=== PATIENT | male | born 1975 | race Caucasian/White ===

== ENCOUNTER 2017-11-27 10:11 | Emergency (ER) | payer MEDICAID, SELFPAY ==
[2017-11-27 10:12] VITALS: BP 146/96; PULSE 99; RESP 15; TEMP 36.8; O2SAT 99; BMI 22.2
--- NOTE | 2017-11-27 10:21 | RAD_ITS ---
STUDY: X-RAY CHEST REASON FOR EXAM: Male, 42 years old. One-week history of cough. TECHNIQUE: PA and lateral views of the chest. COMPARISON: Comparison is made with prior study dated September 24, 2016. FINDINGS: Hyperinflation. Once again, there is evidence of increased markings in the peripheral lateral aspect of the right lung apex. This most likely represents pleural-parenchymal changes. This is unchanged. No new abnormality is seen. There is no demonstrated pleural abnormality. Normal size heart. Normal mediastinum and tello. Normal visualized pulmonary arteries. Normal visualized aortic arch and descending thoracic aorta. Normal visualized thoracic spine. Normal visualized ribs, clavicles, and shoulders. There is no demonstrated abnormality of the visualized soft tissue structures of the upper abdomen. RAD/Chest PA and Lateral IMPRESSION: Hyperinflation. Stable pleural parenchymal changes in the lateral aspect of the right lung apex. Electronically Signed: Juan Daniel Alvarez MD at 10:48 EST Tel [phone], Service support ,
--- NOTE | 2017-11-27 10:23 | ED.DCSUM_ITS ---
- ER Visit Summary Date of Service: 11/27/17 Chief Complaint: Cough History of Present Illness: The patient is a 42 M with no primary care physician. He reports he is a cough began 2 weeks ago. Is productive of white sputum without blood. No fever or chills. Reports she is having mild trouble breathing and he lost his inhaler. He also complains of nausea without vomiting. He reports this is similar to when he has had pneumonia in the past. Physical Examination: Vitals: Stable. Afebrile. General: Well-nourished and well-developed. Head: Normocephalic atraumatic. Neck: Supple, no lymphadenopathy. No JVD. Nontender. Cardiovascular: Regular rate and rhythm. No murmurs. Respiratory: No respiratory distress. Clear to auscultation bilaterally. Abdominal: Soft, nontender, nondistended, normal bowel sounds. No guarding, rebound, or peritoneal signs. Back: Nontender. Extremities: Nontender, no edema. Skin: Normal color, no rash. Neurologic: Alert and oriented ?3. Cranial nerves II through XII are intact. Normal strength and sensation. Psych: Normal affect. Test Results: Chest x-ray shows chronic changes with no infiltrate. Emergency Department Course and Treatment: Patient is resting comfortably. Treatment Plan: He will be discharged with prescription for an albuterol MDI. Instructed to follow-up the [facility] in 1 week if not improving. Disposition: To home in improved and stable condition. Impression: 1. URI. This note was generated with [employer] dictation software. It may contain incorrect words, spelling, and punctuation that were not noted in review of the chart prior to signing ED Disposition - Plan for ED Patient: Chief Complaint: Cough Instructions: ED Upper Resp Infec No Abx Tx Prescriptions: Albuterol Inhaler [Ventolin Hfa] 1 - 2 puff INHALATION Q4H PRN PRN #1 inhaler PRN Reason: Wheezing Referrals: [facility] [NON-STAFF] - 1 Week if not improving
== END 2017-11-27 11:27 | disposition home or self-care (01) ==
PROVIDERS: Emergency Provider Emergency Medicine
DX: J06.9 Acute upper respiratory infection, unspecified (principal); R11.0 Nausea; J45.909 Unspecified asthma, uncomplicated
CPT/HCPCS: 71046; 99282

== ENCOUNTER 2018-04-29 08:14 | Emergency (ER) | payer MEDICAID, SELFPAY ==
[2018-04-29 08:15] VITALS: BP 122/87; PULSE 97; RESP 16; TEMP 36.1; O2SAT 100; BMI 21.9
--- NOTE | 2018-04-29 08:31 | RAD_ITS ---
STUDY: X-RAY CHEST REASON FOR EXAM: Male, 42 years old. Trauma. Chest pain. TECHNIQUE: PA and lateral views of the chest. Patient is mildly rotated. COMPARISON: 11/27/2017 FINDINGS: There is hyperinflation of the lungs consistent with chronic obstructive lung disease (COPD). Possible emphysematous bullous space with pleural thickening/scarring in the right lung apex. There is no demonstrated pleural abnormality. Normal size heart. Normal mediastinum and tello. Normal visualized pulmonary arteries. There is mild tortuosity of the aortic arch. Normal visualized thoracic spine. Normal visualized ribs, clavicles, and shoulders. There is no demonstrated abnormality of the visualized soft tissue structures of the upper abdomen. RAD/Chest PA and Lateral IMPRESSION: 1. COPD changes. 2. Stable pleural parenchymal changes in the right lung apex. 3. No acute abnormality noted. Electronically Signed: Jah Hodge MD at 9:18 EDT Tel , Service support ,
--- NOTE | 2018-04-29 08:31 | ED.VISSUMM ---
- ER Visit Summary Date of Service: 04/29/18 Chief Complaint: Chest pain History of Present Illness: The patient is a 42 M who fell off a little patio about 3 weeks ago he is continuing to have chest pain and back pain from this. No radiation to his pain. No fever or chills he has a chronic cough from smoking but no new symptoms. No sputum production. No difficulty breathing. He has no abdominal trauma, no bowel or bladder compromise. He did not sustain a head injury, no loss of consciousness. Physical Examination: Not appear in acute distress. Moist mucous membranes, no obvious facial deformity No C-spine tenderness supple neck. Regular rate and rhythm without any obvious murmurs. He does have chest wall tenderness to palpation diffusely over the chest but mostly right parasternal region. Clear lungs bilaterally speaking in full sentences without any obvious respiratory distress Abdomen soft and nontender no guarding or rebound Moves all extremities without any difficulty or pain. Neurovascularly intact. He does not have midline thoracic spine tenderness he does have tenderness over his ribs bilaterally in the back. Skin does not show any obvious rashes or lesions, no trauma. Alert oriented ?3 with no gross focal deficit Emergency Department Course and Treatment: Patient is found to have a normal chest x-ray, no rib fractures. He does have quite a bit of reproducible chest wall pain especially on the right. He will be discharged with Naprosyn. No further studies are needed. Impression: [Chest wall pain] This note was generated with [employer] dictation software. It may contain incorrect words, spelling, and punctuation that were not noted in review of the chart prior to signing ED Disposition - Plan for ED Patient: Chief Complaint: Chest Other Referrals: Care Physician,No Primary [Primary Care Provider] -
[2018-04-29] MEDS: HYDROcodone Bitartrate/Apap 5/325 Tablet PO (11:18)
[2018-04-29 11:21] VITALS: BP 126/83; PULSE 74; RESP 14; O2SAT 99
--- NOTE | 2018-04-29 11:28 | ED.DEP ---
ED Disposition - Plan for ED Patient: Disposition: Home or Assisted Living Chief Complaint: Chest Other Instructions: ED Strain Chest Wall Prescriptions: Naproxen [Naprosyn] 500 mg PO BID PRN #20 tab Referrals: Care Physician,No Primary [Primary Care Provider] - 3-5 Days
== END 2018-04-29 11:34 | disposition home or self-care (01) ==
PROVIDERS: Emergency Provider Emergency Medicine
DX: R07.89 Other chest pain (principal); M54.9 Dorsalgia, unspecified; R05 Cough; F17.200 Nicotine dependence, unspecified, uncomplicated
CPT/HCPCS: 71046; 99283

== ENCOUNTER 2019-08-16 21:03 | Emergency (ER) | payer MEDICAID, SELFPAY ==
[2019-08-16 21:03] VITALS: BP 139/75; PULSE 60; RESP 14; TEMP 35.8; O2SAT 97
[2019-08-16 21:04] VITALS: BP 139/75; PULSE 64; RESP 16; TEMP 35.8; O2SAT 95
--- NOTE | 2019-08-16 21:28 | ED.DCSUM_ITS ---
- ER Visit Summary Date of Service: 08/16/19 Chief Complaint: Overdose History of Present Illness: The patient is a 43 M who reportedly was found collapsed on the sidewalk. EMS arrived and they noted he was unresponsive and apneic. They administered 2 mg of Narcan IV the patient woke up feeling very poorly nausea vomiting headache generalized body aches. Told EMS that he snorted a line. Patient has a history of alcoholism and drug abuse. Physical Examination: Afebrile vital signs stable Gen: Well-nourished well-developed Head: Normocephalic atraumatic Eyes: Extraocular motions are intact. Pupils are 2 mm bilaterally ENT: TMs clear no rhinorrhea moist mucous membranes Neck: Supple no lymphadenopathy no JVD nontender CVS: Regular rate rhythm no murmurs normal S1-S2 Respiratory: No distress clear to auscultation bilaterally chest nontender Abdomen: Soft nontender nondistended normal bowel sounds no masses Back: Nontender Extremity: Nontender no edema Skin: Normal color no rash diaphoretic Neuro: Allergic but orientated ?3 CN II-XII intact normal strength sensation ref lexes gait cerebellar Psych: It is extremely irritable. Denies suicidal or homicidal ideation. Emergency Department Course and Treatment: Patient was observed in the department for approximately 1 and 1/2 hours. I go in and speak with the patient he looks at me pulls the covers over his head and rolls over. He states he does not wish to speak. Patient has a long history of continuous drug abuse. He is not suicidal homicidal. He does not wish to see him to rehab today. He will be given information on 180. Patient has an active warrant out for his arrest and is going to be transported from the hospital to the custodial. Impression: 1. Opiate overdose This note was generated with [employer] dictation software. It may contain incorrect words, spelling, and punctuation that were not noted in review of the chart prior to signing ED Disposition - Plan for ED Patient: Disposition: Home or Assisted Living Instructions: Opiate Abuse Prescriptions: Naloxone HCl [Narcan] 4 mg NS X1 PRN #1 spray PRN Reason: opiate overdose Prescription Printed Referrals: [facility] [STAFF PHYSICIAN] - As soon as possible
[2019-08-16 22:33] VITALS: BP 115/67; PULSE 78; RESP 16; O2SAT 96
== END 2019-08-16 22:40 ==
LOC: ED 21:38
PROVIDERS: Emergency Provider Emergency Medicine
DX: T40.0X1A Poisoning by opium, accidental (unintentional), initial encounter (principal); R06.81 Apnea, not elsewhere classified; R11.2 Nausea with vomiting, unspecified; Y92.480 Sidewalk as the place of occurrence of the external cause; F11.10 Opioid abuse, uncomplicated; F10.21 Alcohol dependence, in remission; K21.9 Gastro-esophageal reflux disease without esophagitis; Z72.0 Tobacco use
CPT/HCPCS: 99285; J7030; A4216

== ENCOUNTER 2020-09-20 11:20 | Emergency (ER) | payer MEDICAID, SELFPAY ==
[2020-09-20 11:20] VITALS: BP 155/114; PULSE 98; RESP 18; TEMP 35.8; O2SAT 98; BMI 21.2
--- NOTE | 2020-09-20 11:59 | RAD_ITS ---
STUDY: X-RAY CHEST REASON FOR EXAM: Male, 44 years old. WHEEZING AND SOB TECHNIQUE: AP upright portable view. COMPARISON: 04/29/2018. FINDINGS: Mild right apical pleural irregularity and thickening is unchanged. No suspicious pulmonary nodules or infiltrates. There is no demonstrated pleural abnormality. Normal size heart. Normal mediastinum and tello. Normal visualized pulmonary arteries. Normal visualized aortic arch and descending thoracic aorta. Normal visualized thoracic spine. Normal visualized ribs, clavicles, and shoulders. There is no demonstrated abnormality of the visualized soft tissue structures of the upper abdomen. RAD/Chest 1 View (Portable) IMPRESSION: 1. No acute cardiopulmonary pathology. 2. Right apical pleural irregularity and thickening. This is chronic and unchanged when compared to 04/29/2018. Electronically Signed: Homra Nolen MD at 14:10 EST , Service support ,
--- NOTE | 2020-09-20 11:59 | ED.VIS.GEN ---
History of Present Illness Chief Complaint: Shortness of Breath Informant: Patient Narrative: 44-year-old male states that he is homeless. He tells me that he has a history of asthma. He tells me for the past several nights he has been sleeping on the streets. He states that he feels short of breath. No significant cough. He denies any fevers. He states he has been using his blue inhaler because he is out of the red inhaler. He also tells me that now his hands and his feet are swollen. He states they have been getting very cold at night. - Past Medical History (1) Bulla of lung Status: Chronic (2) GERD (gastroesophageal reflux disease) Status: Chronic (3) Alcoholism Status: Chronic Past Medical History - Allergies and Home Meds Allergies/Adverse Reactions: Allergies No Known Allergies Allergy (Verified 09/20/20 11:21) Primary Care Physician: Care Physician,No Primary [Primary Care Provider] - Past Medical History: - - Asthma Surgical History: noncontributory Lives: Homeless Smoking Status: Never smoker Alcohol: Sober Drugs: None Review of Systems General: Denies: Chills, Fever, Sweats Eyes: Denies: Visual changes - bilaterally, Diplopia ENT: Denies: Rhinorrhea, Sore throat Cardiovascular: Denies: Chest pain, Palpitations Respiratory: Reports: Dyspnea. Denies: Cough, Dyspnea on exertion Gastrointestinal: Denies: Abdominal pain, Nausea, Vomiting, Diarrhea, Melena, Hematochezia Genitourinary: Denies: Dysuria, Hematuria, Frequency Musculoskeletal: Reports: Swelling. Denies: Back pain, Extremity Pain Skin: Denies: Rash, Wounds Neurological: Reports: Parasthesia. Denies: Headache, Weakness, Numbness Physical Exam Vital Signs/Narrative: Vital Signs Temp Pulse Resp BP Pulse Ox 09/20/20 11:20 96.4 F L 98 18 155/114 H 98 Inital Vital Signs reviewed: Yes General: Well nourished, Well developed, No Acute Distress Head: Normocephalic, Atraumatic Eyes: Perrl, EOMI ENT: Moist mucous membranes, No rhinorrhea Neck: Supple, Nontender Cardiovascular: Regular rate, Regular rhythm, No murmurs Respiratory: No distress, Chest nontender, Wheezing - Expiratory, Decreased Air Movement Abdomen: Soft, Nontender, Nondistended, Normal bowel sounds Back: Nontender, Normal Inspection Extremities: Nontender, Edema - Mild swelling of the hands and the feet. No obvious frostbite lesions noted. Skin: Normal color, No rash Neurological: Alert, Oriented x3, Cranial nerves II-XII grossly intact, Normal Strength, Normal Sensation Psychological: Normal affect, Normal Mood Diagnostic/Tx/Re-eval - Medical Decision Making My interpretation of the single view portable chest x-ray is no acute process. Covid antigen test negative. Patient received prednisone and a DuoNeb. I will write for albuterol MDI and 4 more days of prednisone. As far as the hand and foot swelling I think is most likely due to the frostnip he has been receiving while sleeping on the streets. He does know where the [facility] is in town. ED Disposition - Plan for ED Patient: Disposition: Home or Assisted Living Diagnosis: Asthma exacerbation Instructions: ED Asthma, Acute (Adult) Prescriptions: Prednisone [Deltasone] 60 mg PO DAILY #12 tab Prescription Printed Albuterol Inhaler [Ventolin Hfa] 2 puff INHALATION Q4H PRN PRN #1 inhaler PRN Reason: Wheezing Prescription Printed Referrals: [facility] [NON-STAFF] -
[2020-09-20] MEDS: predniSONE 20 MG Tablet 60 MG PO (12:11)
[2020-09-20] MEDS: Ipratropium/Albuterol Sulfate 3 ML AMPUL.NEB INHALATION (13:05)
[2020-09-20 13:06] VITALS: PULSE 84; RESP 20
[2020-09-20 13:15] VITALS: BP 124/71; PULSE 83; RESP 15
== END 2020-09-20 13:16 | disposition home or self-care (01) ==
PROVIDERS: Emergency Provider Emergency Medicine
DX: J45.901 Unspecified asthma with (acute) exacerbation (principal); J43.9 Emphysema, unspecified; M79.89 Other specified soft tissue disorders; K21.9 Gastro-esophageal reflux disease without esophagitis; F10.20 Alcohol dependence, uncomplicated; Z59.0 Homelessness
CPT/HCPCS: 71045; 87426; 94640; 99283

== ENCOUNTER 2020-09-22 20:30 | Inpatient (IN) | payer MEDICAID, SELFPAY ==
[2020-09-22 20:31] VITALS: BP 155/77; PULSE 99; RESP 16; TEMP 36.4; O2SAT 98; BMI 21.9
--- NOTE | 2020-09-22 20:55 | ED.DCSUM_ITS ---
History of Present Illness Chief Complaint: Substance Abuse Narrative: This patient is a 44-year-old male who presents seeking alcohol detox. He is a daily drinker. He drinks 4-5 tall boys daily. He reports prior history of alcohol withdrawal. He has never been through a formal detox program. No history of alcohol withdrawal seizures. Last drink was about 1 hour before presentation. He also reports methamphetamine and marijuana use. He denies opioid abuse. Review of systems he does report some rhinorrhea, cough, mild shortness of breath. He attributes this to letting outside in the cold weather, he is homeless. He also reports nausea and vomiting since yesterday mild diarrhea. He denies any pain at this time. Past Medical History - Allergies and Home Meds Allergies/Adverse Reactions: Allergies No Known Allergies Allergy (Verified 09/22/20 20:33) Primary Care Physician: Care Physician,No Primary [Primary Care Provider] - Past Medical History: - - Alcohol abuse, substance abuse Surgical History: noncontributory Smoking Status: Never smoker Review of Systems All systems negative except as indicated General: Denies: Fever Eyes: Denies: Visual changes - bilaterally ENT: Reports: Rhinorrhea Cardiovascular: Denies: Chest pain Respiratory: Reports: Dyspnea, Cough. Denies: Sputum Gastrointestinal: Reports: Nausea, Vomiting, Diarrhea. Denies: Abdominal pain Musculoskeletal: Denies: Myalgias, Arthralgias Skin: Denies: Rash Neurological: Denies: Headache Hematologic: Denies: Easy bruising Allergy: Denies: Uticaria Physical Exam Vital Signs/Narrative: Vital Signs Temp Pulse Resp BP Pulse Ox 09/22/20 20:31 97.5 F L 99 16 155/77 H 98 Inital Vital Signs reviewed: Yes General: Well nourished Head: Normocephalic Eyes: EOMI ENT: Moist mucous membranes Neck: Supple Cardiovascular: Regular rate, Regular rhythm Respiratory: No distress, CTA bilaterally Abdomen: Soft, Nontender Extremities: Nontender Skin: Normal color Neurological: Alert Psychological: Normal affect Diagnostic/Tx/Re-eval 09/22/20 21:25 Mucosa - Nose SARS-CoV-2 Antigen (Rapid) - Final Laboratory Results 09/22/20 09/22/20 09/22/20 21:07 21:07 21:07 WBC 12.0 H RBC 4.20 L Hgb 13.7 Hct 39.8 L MCV 94.8 H MCH 32.6 H MCHC 34.4 RDW Std Deviation 43.6 RDW Coeff of Bridger 12.6 Plt Count 341 MPV 8.8 Immature Gran % (Auto) 0.300 Neut % (Auto) 91.3 H Lymph % (Auto) 6.4 L [place] % (Auto) 1.8 Eos % (Auto) 0.0 Baso % (Auto) 0.2 Absolute Neuts (auto) 11.0 H Absolute Lymphs (auto) 0.77 L Nucleated RBC % 0 Sodium 138 Potassium 4.1 Chloride 106 Carbon Dioxide 27.0 Anion Gap 5 BUN 22 H Creatinine 0.78 Estim Creat Clear Calc 108.55 Est GFR (MDRD) Af Amer 139 Est GFR (MDRD) Non-Af 115 BUN/Creatinine Ratio 28.2 H Glucose 130 H Calcium 9.1 Total Bilirubin 0.70 AST 33 ALT 89 H Alkaline Phosphatase 59 Total Protein 7.5 Albumin 3.6 Globulin 3.9 Albumin/Globulin Ratio 0.9 Urine Opiates Screen Urine Methadone Screen Ur Barbiturates Screen Ur Phencyclidine Scrn Ur Amphetamines Screen U Methamphetamin-MDMA U Benzodiazepines Scrn Urine Cocaine Screen U Cannabinoids Screen Ur Drug Screen Comment Ethyl Alcohol < 3.0 09/22/20 22:10 WBC RBC Hgb Hct MCV MCH MCHC RDW Std Deviation RDW Coeff of Bridger Plt Count MPV Immature Gran % (Auto) Neut % (Auto) Lymph % (Auto) [place] % (Auto) Eos % (Auto) Baso % (Auto) Absolute Neuts (auto) Absolute Lymphs (auto) Nucleated RBC % Sodium Potassium Chloride Carbon Dioxide Anion Gap BUN Creatinine Estim Creat Clear Calc Est GFR (MDRD) Af Amer Est GFR (MDRD) Non-Af BUN/Creatinine Ratio Glucose Calcium Total Bilirubin AST ALT Alkaline Phosphatase Total Protein Albumin Globulin Albumin/Globulin Ratio Urine Opiates Screen NEGATIVE Urine Methadone Screen NEGATIVE Ur Barbiturates Screen NEGATIVE Ur Phencyclidine Scrn NEGATIVE Ur Amphetamines Screen POSITIVE H U Methamphetamin-MDMA NEGATIVE U Benzodiazepines Scrn NEGATIVE Urine Cocaine Screen NEGATIVE U Cannabinoids Screen NEGATIVE Ur Drug Screen Comment Ethyl Alcohol - Medical Decision Making EKG shows normal sinus rhythm at a rate of 76. Labs notable for white blood cell count of 12. Serum alcohol undetectable. Drug screen positive for amphetamines. ALT 89. I asked the patient about his last drink and explained that there is no detectable serum alcohol. He states he only had one beer today and it may have been longer than he thought. Given that he does report daily alcohol use and is requesting alcohol detox he will be discussed with hospitalist for admission. ED Disposition - Plan for ED Patient: Disposition: Acute Care Hospital [facility] Diagnosis: Alcohol abuse, Methamphetamine abuse Referrals: Care Physician,No Primary [Primary Care Provider] -
[2020-09-22 21:17] LABS: Absolute Lymphocyte Count 0.77 X10^3/uL (0.83-4.51); Basophil# 0.02 X10^3/uL; Basophil% 0.2 % (0-1); Hematocrit 39.8 % (40-54); Hemoglobin 13.7 g/dL (13.0-16.5); Lymphocyte # 0.77 X10^3/ul (4.0); Lymphocyte % 6.4 % (19-41); Mean Corp Hgb Conc 34.4 g/dL (32-36); Mean Corpuscular Hgb 32.6 pg (27.0-32.0); Mean Corpuscular Volume 94.8 fL (80-94); Mean Platelet Vol. 8.8 fl (6.2-12.0); Monocyte# 0.22 X10^3/uL; Monocyte% 1.8 % (0-10); NRBC Flagged by Analyzer 0 % (0-5); Neutrophil # 10.95 X10^3/uL (2.7-7.7); Neutrophil % 91.3 % (47-70); Platelet Count 341 K/mm3 (150-450); RBC Distribution Width CV 12.6 % (11.6-14.6); RBC Distribution Width SD 43.6 fl (35.1-43.9)
[2020-09-22 21:21] VITALS: BP 151/69; PULSE 89; RESP 14; TEMP 36.6; O2SAT 99
[2020-09-22 21:32] LABS: ALB/GLOB Ratio 0.9 RATIO (0.9-2.4); AST(SGOT) 33 U/L (15-37); Alanine Aminotransfer ALT/SGPT 89 U/L (16-61); Albumin, Serum 3.6 g/dL (3.2-5.0); Alkaline Phosphatase 59 U/L (45-117); Anion Gap 5 (5-15); BUN 22 mg/dL (7-18); BUN/Creat Ratio 28.2 RATIO (10-20); Calcium,Total 9.1 mg/dL (8.5-10.1); Chloride 106 mmol/L (98-107); Creatinine, Serum 0.78 mg/dL (0.70-1.30); EST Glomerular Filtration Rate 115 mL/min (>60); Est Glom Filt Rate - Afr Amer 139 mL/min (>60); Estimated Creatinine Clearance 108.55 ml/min; Globulin 3.9 g/dL (2.2-4.2); Glucose 130 mg/dL (74-106); Potassium 4.1 mmol/L (3.5-5.1); Protein, Total 7.5 g/dL (6.4-8.2); Sodium Level 138 mmol/L (136-145)
[2020-09-22 22:26] LABS: Alcohol, Blood (Medical)-Serum < 3.0 mg/dL
[2020-09-22 22:59] VITALS: BP 109/54; PULSE 89; RESP 14; O2SAT 99
[2020-09-22 22:59] LABS: Amphetamine Urine VISTA POSITIVE (<1000 ng/mL); Barbiturate Urine VISTA NEGATIVE (< 200 ng/mL); Benzodiazepine Urine VISTA NEGATIVE (< 200 ng/mL); Cocaine Urine VISTA NEGATIVE (< 300 ng/mL); Ecstacy Urine VISTA NEGATIVE (< 500 ng/mL); Methadone Urine VISTA NEGATIVE (< 300 ng/mL); PCP Urine VISTA NEGATIVE (< 25 ng/mL); THC Urine VISTA NEGATIVE (< 50 ng/mL); Vista UDS pH Range 7
[2020-09-22 23:24] VITALS: BP 118/63; PULSE 89; RESP 16; TEMP 36.6; O2SAT 97
--- NOTE | 2020-09-22 23:48 | HP.PCM_ITS ---
Problem List (1) Acute alcohol withdrawal Status: Acute (2) Methamphetamine abuse Status: Acute (3) GERD (gastroesophageal reflux disease) Status: Chronic (4) Alcoholism Status: Chronic History of Present Illness Date of Admission: 09/22/20 Chief Complaint: Acute alcohol withdrawal requesting admission for medical stabilization. The patient is a 44 year old M with past medical history as mentioned above presented to the emergency room requesting admission for acute alcohol withdrawal. Patient states that he has been drinking alcohol every day for the last 25 years, he drinks 4-5 tall boys every day and his last drink was this evening. Also, he reported he use of amphetamines and smoking marijuana. His main complaint today was shakiness and mild hand tremors as well as rhinorrhea. He reported mild nausea and vomiting since yesterday. He denied fever or chills. He denied cough or sputum production. 2 days ago, he came to the emergency department for acute asthma exacerbation and he was discharged on prednisone and albuterol inhaler. In the emergency department, his vital signs were stable. His routine blood work was remarkable for mild leukocytosis because he was on steroids, otherwise unremarkable. LFT was normal. Urine drug screen was positive for amphetamines. Blood alcohol level was less than 3. EKG revealed normal sinus rhythm and no acute ischemic changes. He is being admitted for acute alcohol withdrawal for medical stabilization. Past Medical History Past Medical History (Chronic Problems): Chronic Problems [place] of lung (Chronic) GERD (gastroesophageal reflux disease) (Chronic) Alcoholism (Chronic) Allergies No Known Allergies Allergy (Verified 09/22/20 20:33) Home Medications: Ambulatory Orders Medication Instructions Recorded Albuterol Inhaler [Ventolin Hfa] 2 puff INHALATION Q4H PRN PRN #1 09/20/20 inhaler Prednisone [Deltasone] 60 mg PO DAILY #12 tab 09/20/20 Surgical History: - - Open reduction and internal fixation of left ankle fracture. Psychiatric History: No pertinent psych hx Lives: Homeless Smoking Status: Never smoker Alcohol: Heavy Drugs: Marijuana - *Family History Maternal History Items: No pertinent history Paternal History Items: No pertinent history Review of Systems Constitutional: Denies: Anorexia, Chills, Fever, Weakness Eyes: Denies: Blurred vision, Double vision, Drainage, Redness HEENT: Denies: Difficulty Hearing, Dysphasia, Ear Pain, Eye Pain, Nasal Congestion, Sore Throat Cardiovascular: Denies: Chest Pain, Chest Pressure, Edema, Heaviness, Orthopnea, Palpitations, Syncope Respiratory: Denies: Cough, Pleuritic Pain, Shortness of Breath, Sputum production, Wheezing Gastrointestinal: Denies: Abdominal Pain, Constipation, Diarrhea, Nausea, Vomiting Genitourinary: Denies: Dysuria, Frequency, Hematuria Musculoskeletal: Denies: Arm Pain, Back Pain, Foot Pain Skin: Denies: Dryness, Rash Neurological: Reports: Tremor. Denies: Balance problems, Double vision, Change in Speech, Confusion, Headaches, Incoordination Psychiatric: Denies: Anxiety, Depression Endocrine: Denies: Change in Body Habitus, Polydipsia, Polyuria VTE Information - Inpt Only VTE Present on Admission: No VTE Mechan Device Prophylaxis: None VTE Pharm Prophylaxis ordered?: No Patient Problems: Active and Suspected Problems Methamphetamine abuse (Acute) - Physical Exam Vitals/I&O's: Vital Signs Temp Pulse Resp BP Pulse Ox 98 F 89 16 118/63 97 09/22/20 23:24 09/22/20 23:24 09/22/20 23:24 09/22/20 23:24 09/22/20 23:24 Oxygen Delivery Method Room Air Weight: 140 lb Body Mass Index (BMI) 21.9 General: Alert, Oriented x3, Cooperative, No apparent distress HEENT: Atraumatic, PERRLA, EOMI, Normocephalic Oral: Moist Mucosa, No Gingival or Mucosal Lesions/ Ulcerations Neck: Supple, No JVD, Negative Carotid Bruits, Trachea Midline, Thyroid Normal Size and Texture Lungs: Clear to auscultation, Normal air movement, No rhonchi, No wheeze, No rales Cardiovascular: Regular rate, Regular Rhythm, Normal S1, Normal S2, PMI Normal Abdomen: Bowel Sounds Present, Soft, Non Tender, Non-Distended, No Hepato- splenomegaly Extremities: No clubbing, No cyanosis, No edema Skin: No rashes, No breakdown Lymphatic: No Cervical, Supraclavicular, or Inguinal Adenopathy Neurological: Cranial nerves II-XII grossly intact, Motor Exam 5/5 strength throughout Psych/Mental Status: Normal Affect, Appropriate, Alert and oriented to time, place, person, mood and affect Microbiology Past 72 Hours 09/22/20 21:25 Mucosa - Nose SARS-CoV-2 Antigen (Rapid) - Final Laboratory Results 09/22/20 21:07: WBC 12.0 H, RBC 4.20 L, Hgb 13.7, Hct 39.8 L, MCV 94.8 H, MCH 32.6 H, MCHC 34.4, RDW Std Deviation 43.6, RDW Coeff of Bridger 12.6, Plt Count 341, MPV 8.8, Immature Gran % (Auto) 0.300, Neut % (Auto) 91.3 H, Lymph % (Auto) 6.4 L, [place] % (Auto) 1.8, Eos % (Auto) 0.0, Baso % (Auto) 0.2, Absolute Neuts (auto) 11.0 H, Absolute Lymphs (auto) 0.77 L, Nucleated RBC % 0 09/22/20 21:07: Sodium 138, Potassium 4.1, Chloride 106, Carbon Dioxide 27.0, Anion Gap 5, BUN 22 H, Creatinine 0.78, Estim Creat Clear Calc 108.55, Est GFR (MDRD) Af Amer 139, Est GFR (MDRD) Non-Af 115, BUN/Creatinine Ratio 28.2 H, Glucose 130 H, Calcium 9.1, Total Bilirubin 0.70, AST 33, ALT 89 H, Alkaline Phosphatase 59, Total Protein 7.5, Albumin 3.6, Globulin 3.9, Albumin/Globulin Ratio 0.9 09/22/20 21:07: Ethyl Alcohol < 3.0 09/22/20 22:10: Urine Opiates Screen NEGATIVE, Urine Methadone Screen NEGATIVE, Ur Barbiturates Screen NEGATIVE, Ur Phencyclidine Scrn NEGATIVE, Ur Amphetamines Screen POSITIVE H, U Methamphetamin-MDMA NEGATIVE, U Benzodiazepines Scrn NEGATIVE, Urine Cocaine Screen NEGATIVE, U Cannabinoids Screen NEGATIVE, Ur Drug Screen Comment Assessment/Plan All Active Problems Acute alcohol withdrawal (Acute) Methamphetamine abuse (Acute) This is a 44 years old male patient presented to the emergency room requesting admission for acute alcohol withdrawal for medical stabilization. #1 acute alcohol withdrawal: Patient has been drinking alcohol daily over the last 25 years. He mentioned that his last drink was this evening but his blood alcohol level was less than 3. He is homeless. Routine blood work was remarkable for mild leukocytosis, otherwise unremarkable. LFT was unremarkable. Urine drug screen was positive for amphetamines, blood alcohol level was less than 3. Plan: Admit to MedSurg floor, initiate alcohol withdrawal protocol with tapering phenobarbital, thiamine, folic acid, as needed Tylenol, Bentyl, gabapentin, Vistaril, Imodium, Zofran and trazodone, consult [facility] program. #2 amphetamine use: Urine drug screen was positive for amphetamines. Patient also mentioned that he smokes marijuana. #3 asthma: Stable, on room air. Plan for albuterol as needed. #4 GERD: Not on PPI at home, will start Pepcid. #5 DVT prophylaxis: Low risk patient, no prophylaxis indicated. This note was generated with [employer] dictation software. It may contain incorrect words, spelling, and punctuation that were not noted in checking the note before signing. Inpatient E&M: 38893 Init Hosp L2
[2020-09-23] VITALS (7 sets, daily range): BP systolic 112–124; BP diastolic 66–84; PULSE 71–90; RESP 14–24; TEMP 36.6–36.9; O2SAT 94–98; BMI 20.5
--- NOTE | 2020-09-23 00:10 | PCS.PANDOC ---
PANDEMIC DOCUMENTATION INITIATED: Date: Time:
[2020-09-23] MEDS: Phenobarbital 32.4 MG Tablet PO ×6 (01:17→22:22)
[2020-09-23] MEDS: Gabapentin 300 MG Capsule PO (01:17)
--- NOTE | 2020-09-23 07:49 | PCS.PANDOC ---
PANDEMIC DOCUMENTATION INITIATED: Date: 09/23/2020 Time: 0021
[2020-09-23] MEDS: Albuterol 2.5 MG/3 ML VIAL.NEB. INHALATION (08:16)
--- NOTE | 2020-09-23 08:52 | CASEMGMT ---
Addendum entered by Galina Hinds 09/23/20 11:14: SW reviewed chart. Pt is homeless. SW in to speak with pt. SW introduced self and role at [facility]. Pt is alert and orientated x3. Pt confirms that he is homeless. SW asked pt about address listed on demographics sheet. Pt states it was his mother's address. Pt states he was living with his mother up until about a year ago when she . Pt states since then he has had no stable housing. Pt states he has tried to stay with family or friends and it hasn't worked out. Pt states he was at [facility] for about a week and is trying to get back into there. SW educated pt on [facility] that will be opened the next few days. Pt states he is aware of the group home at [facility]. SW asked pt if he has been in contact with [email or web address]. Pt states he has been and he is expecting his housing voucher to arrive in the mail so he is able to get his own place. Pt states he has been using [facility] address and has been checking the mail for his housing voucher. SW asked pt if he would be agreeable to residential treatment at discharge. Pt states he may be interested in residential but doesn't know how that will work with him checking his mail for his voucher. Pt states he really doesn't want to miss getting his voucher. SW informed pt that [facility] will be in to speak with pt today and encouraged pt to speak with [facility] about treatment options and informed pt that [facility] does have housing resources as well. Pt states understanding, states he will speak with [facility]. Pt denied additional needs or concerns at this time. Galina MOE, RETAIL CONSULTANT Original Note: Social Work Note Pt is RAMP pt. ROMELIA placed a call to treatment navigator and spoke with Patricia. Galina MOE, RETAIL CONSULTANT
[2020-09-23] MEDS: Folic Acid 1 MG Tablet PO (09:41)
[2020-09-23] MEDS: Famotidine 20 MG Tablet PO ×2 (09:41→22:22)
[2020-09-23] MEDS: Thiamine Hydrochloride 100 MG Tablet PO (09:41)
--- NOTE | 2020-09-23 17:38 | CHAPLAIN ---
Type of Pastoral Visit _x__ Initial Visit ___ Follow-up Visit ___ On-call Visit ___ General Patient Visit ___ Spiritual Assessment ___ Family Conference ___ Bereavement ___ Rapid Response ___ Code Blue ___ Other (describe below) Pastoral Care Referral From _x__ Patient ___ Family ___ Nurse ___ Physician ___ Rehabilitation Inspector ___ Volleyball Coach ___ Other (describe below) Sacrament/Intervention _x__ Active listening ___ Anointing ___ Hindu ___ Bereavement ___ Communion _x__ Isamar exploration ___ _x__ Life review _x__ Prayer ___ Reconciliation ___ Sacrament of Sick _x__ Supportive presence ___ Wedding ___ Other (describe below) Pastoral Comments patient very open about his situation, fears, and impact of life on the streets; pt admits he needs help and needs housing; pt says his last hope is in asking God to help him; pt is talkative and at times rambling; pt has concerns about where he can go from here and how that will happen; gave pt phone numbers for sober living houses in [facility]; pt has no phone; affirmed pt desire to get life in better situation and find help that he needs; pt has no real support at this time and is vulnerable to repeat his addictions; pt welcoming of prayer and presence
--- NOTE | 2020-09-23 20:54 | PCM.PROGNOTE ---
Patient Problems: Active and Suspected Problems Alcohol abuse (Acute) Acute alcohol withdrawal (Acute) Methamphetamine abuse (Acute) Subjective: Patient was seen and examined today, he does not complain of any tremors or anxiety. - Physical Exam Vitals/I&O's: Vital Signs Temp Pulse Resp BP Pulse Ox 98.4 F 71 16 112/69 96 09/23/20 17:20 09/23/20 17:20 09/23/20 17:20 09/23/20 17:20 09/23/20 17:20 Oxygen Delivery Method Room Air Weight: 59.5 kg Body Mass Index (BMI) 20.5 Intake and Output for Last 24 Hours 09/21/20 09/22/20 09/23/20 23:59 23:59 23:59 Intake Total 1194 / 1194 Balance 1194 / 1194 General: Alert, Oriented x3, Cooperative, No apparent distress, Well developed HEENT: Atraumatic, PERRLA, EOMI, Normocephalic Oral: Moist Mucosa Neck: Supple, No JVD, Trachea Midline, Thyroid Normal Size and Texture Lungs: Clear to auscultation, Normal air movement, No rhonchi, No wheeze, No rales Cardiovascular: Regular rate, Regular Rhythm, Normal S1, Normal S2, No murmurs, PMI Normal, No rub noted, No Gallop Abdomen: Bowel Sounds Present, Soft, Non Tender, Non-Distended Extremities: No clubbing, No cyanosis, No edema, Capillary Refill Less than 3 Seconds Skin: No rashes, No breakdown Musculoskeletal: No Tenderness to Palpation of Joints or Extremities Neurological: Cranial nerves II-XII grossly intact, Neuro grossly intact, Sensory exam intact to light touch and pain, Coordination normal Psych/Mental Status: Normal Affect, Appropriate, Alert and oriented to time, place, person, mood and affect Microbiology Past 72 Hours 09/22/20 21:25 Mucosa - Nose SARS-CoV-2 Antigen (Rapid) - Final Laboratory Results 09/22/20 21:07: WBC 12.0 H, RBC 4.20 L, Hgb 13.7, Hct 39.8 L, MCV 94.8 H, MCH 32.6 H, MCHC 34.4, RDW Std Deviation 43.6, RDW Coeff of Bridger 12.6, Plt Count 341, MPV 8.8, Immature Gran % (Auto) 0.300, Neut % (Auto) 91.3 H, Lymph % (Auto) 6.4 L, [place] % (Auto) 1.8, Eos % (Auto) 0.0, Baso % (Auto) 0.2, Absolute Neuts (auto) 11.0 H, Absolute Lymphs (auto) 0.77 L, Nucleated RBC % 0 09/22/20 21:07: Sodium 138, Potassium 4.1, Chloride 106, Carbon Dioxide 27.0, Anion Gap 5, BUN 22 H, Creatinine 0.78, Estim Creat Clear Calc 108.55, Est GFR (MDRD) Af Amer 139, Est GFR (MDRD) Non-Af 115, BUN/Creatinine Ratio 28.2 H, Glucose 130 H, Calcium 9.1, Total Bilirubin 0.70, AST 33, ALT 89 H, Alkaline Phosphatase 59, Total Protein 7.5, Albumin 3.6, Globulin 3.9, Albumin/Globulin Ratio 0.9 09/22/20 21:07: Ethyl Alcohol < 3.0 09/22/20 22:10: Urine Opiates Screen NEGATIVE, Urine Methadone Screen NEGATIVE, Ur Barbiturates Screen NEGATIVE, Ur Phencyclidine Scrn NEGATIVE, Ur Amphetamines Screen POSITIVE H, U Methamphetamin-MDMA NEGATIVE, U Benzodiazepines Scrn NEGATIVE, Urine Cocaine Screen NEGATIVE, U Cannabinoids Screen NEGATIVE, Ur Drug Screen Comment Current Medications Acetaminophen (Acetaminophen 500 Mg Tablet) 500 mg PO Q4H PRN PRN PRN Reason: Temp > 100.4 F Albuterol Sulfate (Albuterol 2.5 Mg/3 Ml Vial.Neb.) 2.5 mg INHALATION Q4H PRN PRN PRN Reason: Shortness of breath, wheezing Last Admin: 09/23/20 08:16 Dose: 2.5 mg Documented by: Dicyclomine HCl (Dicyclomine 10 Mg Capsule) 20 mg PO Q6H PRN PRN PRN Reason: abdominal discomfort Famotidine (Famotidine 20 Mg Tablet) 20 mg PO BID [facility] Last Admin: 09/23/20 09:41 Dose: 20 mg Documented by: Folic Acid (Folic Acid 1 Mg Tablet) 1 mg PO DAILY@0800 [facility] Last Admin: 09/23/20 09:41 Dose: 1 mg Documented by: Loperamide HCl (Loperamide 2 Mg Capsule) 2 mg PO Q4H PRN PRN PRN Reason: LOOSE STOOLS Ondansetron HCl (Ondansetron 8 Mg Tablet) 8 mg PO Q8H PRN PRN PRN Reason: NAUSEA Phenobarbital (Phenobarbital 32.4 Mg Tablet) 97.2 mg PO Q4H [facility]; Taper Stop: 09/27/20 09:29 Last Admin: 09/23/20 17:22 Dose: 97.2 mg Documented by: Thiamine HCl (Thiamine Hydrochloride 100 Mg Tablet) 100 mg PO DAILYCM [facility] Last Admin: 09/23/20 09:41 Dose: 100 mg Documented by: Trazodone HCl (Trazodone 100 Mg Tablet) 100 mg PO QHS PRN PRN Reason: INSOMNIA Medical Necessity - Tobacco Use Smoking Status: Never smoker Assessment/Plan All Active Problems Alcohol abuse (Acute) Acute alcohol withdrawal (Acute) Methamphetamine abuse (Acute) #1 acute alcohol withdrawal-patient's medications remain unchanged, patient states that he has plans to go to an inpatient alcohol detox center-[facility] will need to talk with the patient. #2 chronic alcoholism #3 GERD #4 methamphetamine abuse Inpatient E&M: [id number] Subs Hosp L2
[2020-09-24] MEDS: Phenobarbital 32.4 MG Tablet PO ×6 (01:39→21:12)
[2020-09-24 02:04] VITALS: BP 116/76; PULSE 88; RESP 18; TEMP 36.8; O2SAT 97
[2020-09-24] MEDS: Albuterol 2.5 MG/3 ML VIAL.NEB. INHALATION (05:49)
[2020-09-24 05:50] VITALS: PULSE 93; RESP 18
[2020-09-24 09:35] VITALS: BP 128/67; PULSE 102; RESP 16; TEMP 36.7; O2SAT 95
[2020-09-24] MEDS: Famotidine 20 MG Tablet PO ×2 (09:51→21:13)
[2020-09-24] MEDS: Folic Acid 1 MG Tablet PO (09:51)
[2020-09-24] MEDS: Thiamine Hydrochloride 100 MG Tablet PO (09:51)
[2020-09-24 13:30] VITALS: BP 110/69; PULSE 89; RESP 16; TEMP 37; O2SAT 97
--- NOTE | 2020-09-24 16:20 | PN_ITS ---
Patient Problems: Active and Suspected Problems Alcohol abuse (Acute) Acute alcohol withdrawal (Acute) Methamphetamine abuse (Acute) Subjective: Patient was seen and examined today, he does not complain of any anxiety or tremor at this time, he had talked to [facility] and arrangements are being carried out for inpatient detox services but it is unknown where the patient will go. If patient ends up going to [facility] for inpatient detox services, he will have to remain here until this coming Monday, patient's phenobarb taper will be finished on Monday but I will extend his phenobarb usage while he is in the hospital. Objective: General: Alert, Oriented x3, Cooperative, No apparent distress, Well developed HEENT: Atraumatic, PERRLA, EOMI, Normocephalic Oral: Moist Mucosa Neck: Supple, No JVD, Trachea Midline, Thyroid Normal Size and Texture Lungs: Clear to auscultation, Normal air movement, No rhonchi, No wheeze, No rales Cardiovascular: Regular rate, Regular Rhythm, Normal S1, Normal S2, No murmurs, PMI Normal, No rub noted, No Gallop Abdomen: Bowel Sounds Present, Soft, Non Tender, Non-Distended Extremities: No clubbing, No cyanosis, No edema, Capillary Refill Less than 3 Seconds Skin: No rashes, No breakdown Musculoskeletal: No Tenderness to Palpation of Joints or Extremities Neurological: Cranial nerves II-XII grossly intact, Neuro grossly intact, Sensory exam intact to light touch and pain, Coordination normal Psych/Mental Status: Normal Affect, Appropriate, Alert and oriented to time, place, person, mood and affect - Physical Exam Vitals/I&O's: Vital Signs Temp Pulse Resp BP Pulse Ox 98.6 F 89 16 110/69 97 09/24/20 13:30 09/24/20 13:30 09/24/20 13:30 09/24/20 13:30 09/24/20 13:30 Oxygen Delivery Method Room Air Weight: 59.5 kg Body Mass Index (BMI) 20.5 Intake and Output for Last 24 Hours 09/22/20 09/23/20 09/24/20 23:59 23:59 23:59 Intake Total 1194 / 1594 1200 / 1200 Balance 1194 / 1594 1200 / 1200 Microbiology Past 72 Hours 09/22/20 21:25 Mucosa - Nose SARS-CoV-2 Antigen (Rapid) - Final Current Medications Acetaminophen (Acetaminophen 500 Mg Tablet) 500 mg PO Q4H PRN PRN PRN Reason: Temp > 100.4 F Albuterol Sulfate (Albuterol 2.5 Mg/3 Ml Vial.Neb.) 2.5 mg INHALATION Q4H PRN PRN PRN Reason: Shortness of breath, wheezing Last Admin: 09/24/20 05:49 Dose: 2.5 mg Documented by: Dicyclomine HCl (Dicyclomine 10 Mg Capsule) 20 mg PO Q6H PRN PRN PRN Reason: abdominal discomfort Famotidine (Famotidine 20 Mg Tablet) 20 mg PO BID [facility] Last Admin: 09/24/20 09:51 Dose: 20 mg Documented by: Folic Acid (Folic Acid 1 Mg Tablet) 1 mg PO DAILY@0800 [facility] Last Admin: 09/24/20 09:51 Dose: 1 mg Documented by: Loperamide HCl (Loperamide 2 Mg Capsule) 2 mg PO Q4H PRN PRN PRN Reason: LOOSE STOOLS Ondansetron HCl (Ondansetron 8 Mg Tablet) 8 mg PO Q8H PRN PRN PRN Reason: NAUSEA Phenobarbital (Phenobarbital 32.4 Mg Tablet) 64.8 mg PO Q4H [facility]; Taper Stop: 09/27/20 09:29 Last Admin: 09/24/20 13:29 Dose: 64.8 mg Documented by: Thiamine HCl (Thiamine Hydrochloride 100 Mg Tablet) 100 mg PO DAILYCM [facility] Last Admin: 09/24/20 09:51 Dose: 100 mg Documented by: Trazodone HCl (Trazodone 100 Mg Tablet) 100 mg PO QHS PRN PRN Reason: INSOMNIA Medical Necessity - Tobacco Use Smoking Status: Never smoker Assessment/Plan All Active Problems Alcohol abuse (Acute) Acute alcohol withdrawal (Acute) Methamphetamine abuse (Acute) #1 acute alcohol withdrawal-patient's medications remain unchanged, patient states that he has plans to go to an inpatient alcohol detox center-[facility] is helping him with arrangements. #2 chronic alcoholism #3 GERD #4 methamphetamine abuse Inpatient E&M: [id number] [facility] Hosp L2
[2020-09-24 17:30] VITALS: BP 109/72; PULSE 82; RESP 16; TEMP 36.8; O2SAT 95
[2020-09-24 21:16] VITALS: BP 140/79; PULSE 84; RESP 18; TEMP 37; O2SAT 97
[2020-09-25] MEDS: Phenobarbital 32.4 MG Tablet PO ×5 (02:41→21:16)
[2020-09-25 02:50] VITALS: BP 117/69; PULSE 78; RESP 18; TEMP 37.1; O2SAT 95
[2020-09-25] MEDS: Albuterol 2.5 MG/3 ML VIAL.NEB. INHALATION (02:54)
[2020-09-25 02:55] VITALS: PULSE 84; RESP 18
[2020-09-25 08:50] VITALS: BP 109/72; PULSE 83; RESP 18; TEMP 36.7; O2SAT 96
[2020-09-25] MEDS: Folic Acid 1 MG Tablet PO (10:26)
[2020-09-25] MEDS: Thiamine Hydrochloride 100 MG Tablet PO (10:26)
[2020-09-25] MEDS: Famotidine 20 MG Tablet PO ×2 (10:29→21:20)
--- NOTE | 2020-09-25 12:30 | PN_ITS ---
Patient Problems: Active and Suspected Problems Alcohol abuse (Acute) Acute alcohol withdrawal (Acute) Methamphetamine abuse (Acute) Subjective: Patient was seen and examined today, he does not complain of any anxiety or tremors. - Physical Exam Vitals/I&O's: Vital Signs Temp Pulse Resp BP Pulse Ox 98.0 F 83 18 109/72 96 09/25/20 08:50 09/25/20 08:50 09/25/20 08:50 09/25/20 08:50 09/25/20 08:50 Oxygen Delivery Method Room Air Weight: 59.5 kg Body Mass Index (BMI) 20.5 Intake and Output for Last 24 Hours 09/23/20 09/24/20 09/25/20 23:59 23:59 23:59 Intake Total 1194 / 1594 1700 / 1700 300 / 300 Balance 1194 / 1594 1700 / 1700 300 / 300 General: Alert, Oriented x3, Cooperative, No apparent distress, Well developed, Well nourished HEENT: Atraumatic, PERRLA, EOMI, Normocephalic Oral: Moist Mucosa Neck: Supple, No JVD, No Nuchal Rigidity, Trachea Midline, Thyroid Normal Size and Texture Lungs: Clear to auscultation, Normal air movement, No rhonchi, No rales, Wheezes - Slight right-sided expiratory wheezes are noted Cardiovascular: Regular rate, Regular Rhythm, Normal S1, Normal S2, No murmurs, No rub noted, No Gallop Abdomen: Bowel Sounds Present, Soft, Non Tender, Non-Distended, No hernias noted Extremities: No clubbing, No cyanosis, No edema, Capillary Refill Less than 3 Seconds Skin: No rashes, No breakdown Musculoskeletal: No Tenderness to Palpation of Joints or Extremities Neurological: Cranial nerves II-XII grossly intact, Neuro grossly intact, Sensory exam intact to light touch and pain, Coordination normal Psych/Mental Status: Normal Affect, Appropriate, Alert and oriented to time, place, person, mood and affect Microbiology Past 72 Hours 09/22/20 21:25 Mucosa - Nose SARS-CoV-2 Antigen (Rapid) - Final Current Medications Acetaminophen (Acetaminophen 500 Mg Tablet) 500 mg PO Q4H PRN PRN PRN Reason: Temp > 100.4 F Albuterol Sulfate (Albuterol 2.5 Mg/3 Ml Vial.Neb.) 2.5 mg INHALATION Q4H PRN PRN PRN Reason: Shortness of breath, wheezing Last Admin: 09/25/20 02:54 Dose: 2.5 mg Documented by: Dicyclomine HCl (Dicyclomine 10 Mg Capsule) 20 mg PO Q6H PRN PRN PRN Reason: abdominal discomfort Famotidine (Famotidine 20 Mg Tablet) 20 mg PO BID [facility] Last Admin: 09/25/20 10:29 Dose: 20 mg Documented by: Folic Acid (Folic Acid 1 Mg Tablet) 1 mg PO DAILY@0800 [facility] Last Admin: 09/25/20 10:26 Dose: 1 mg Documented by: Loperamide HCl (Loperamide 2 Mg Capsule) 2 mg PO Q4H PRN PRN PRN Reason: LOOSE STOOLS Ondansetron HCl (Ondansetron 8 Mg Tablet) 8 mg PO Q8H PRN PRN PRN Reason: NAUSEA Phenobarbital (Phenobarbital 32.4 Mg Tablet) 64.8 mg PO Q6H [facility]; Taper Stop: 09/27/20 09:29 Last Admin: 09/25/20 10:25 Dose: 64.8 mg Documented by: Thiamine HCl (Thiamine Hydrochloride 100 Mg Tablet) 100 mg PO DAILYCM [facility] Last Admin: 09/25/20 10:26 Dose: 100 mg Documented by: Trazodone HCl (Trazodone 100 Mg Tablet) 100 mg PO QHS PRN PRN Reason: INSOMNIA Medical Necessity - Tobacco Use Smoking Status: Never smoker Assessment/Plan All Active Problems Alcohol abuse (Acute) Acute alcohol withdrawal (Acute) Methamphetamine abuse (Acute) #1 acute alcohol withdrawal-patient's medications remain unchanged, patient states that he has plans to go to an inpatient alcohol detox center-[facility] is helping him with arrangements. This will most likely occur this Monday. I will keep the patient on phenobarbital until he is discharged. #2 chronic alcoholism #3 GERD #4 methamphetamine abuse Inpatient E&M: [id number] [facility] Hosp L2
[2020-09-25 14:50] VITALS: BP 107/65; PULSE 85; RESP 16; TEMP 36.8; O2SAT 96
[2020-09-25 21:09] VITALS: BP 103/62; PULSE 87; RESP 18; TEMP 36.4; O2SAT 95
[2020-09-25] MEDS: traZODone 100 MG Tablet PO (21:20)
[2020-09-26] VITALS (11 sets, daily range): BP systolic 105–125; BP diastolic 63–69; PULSE 82–99; RESP 12–18; TEMP 36.6–36.9; O2SAT 94–96
[2020-09-26] MEDS: Phenobarbital 32.4 MG Tablet PO ×5 (04:02→21:29)
--- NOTE | 2020-09-26 11:26 | NURSING ---
none of pt scheduled meds in drawer
[2020-09-26] MEDS: Albuterol 2.5 MG/3 ML VIAL.NEB. INHALATION ×2 (13:15→19:54)
[2020-09-26] MEDS: Folic Acid 1 MG Tablet PO (13:29)
[2020-09-26] MEDS: Thiamine Hydrochloride 100 MG Tablet PO (13:29)
[2020-09-26] MEDS: predniSONE 20 MG Tablet 40 MG PO (13:29)
[2020-09-26] MEDS: Famotidine 20 MG Tablet PO ×2 (13:29→21:30)
--- NOTE | 2020-09-26 15:37 | PN_ITS ---
Patient Problems: Active and Suspected Problems Alcohol abuse (Acute) Acute alcohol withdrawal (Acute) Methamphetamine abuse (Acute) Subjective: She was seen and examined today, he does not complain of increased tremor or nervousness, patient has a cough productive of clear phlegm. Objective: General: Alert, Oriented x3, Cooperative, No apparent distress, Well developed, Well nourished HEENT: Atraumatic, PERRLA, EOMI, Normocephalic Oral: Moist Mucosa Neck: Supple, No JVD, No Nuchal Rigidity, Trachea Midline, Thyroid Normal Size and Texture Lungs: Bilateral scattered expiratory wheezes are noted, Normal air movement, No rhonchi, No rales Cardiovascular: Regular rate, Regular Rhythm, Normal S1, Normal S2, No murmurs, No rub noted, No Gallop Abdomen: Bowel Sounds Present, Soft, Non Tender, Non-Distended, No hernias noted Extremities: No clubbing, No cyanosis, No edema, Capillary Refill Less than 3 Seconds Skin: No rashes, No breakdown Musculoskeletal: No Tenderness to Palpation of Joints or Extremities Neurological: Cranial nerves II-XII grossly intact, Neuro grossly intact, Sensory exam intact to light touch and pain, Coordination normal Psych/Mental Status: Normal Affect, Appropriate, Alert and oriented to time, place, person, mood and affect - Physical Exam Vitals/I&O's: Vital Signs Temp Pulse Resp BP Pulse Ox 98.2 F 94 18 125/66 H 95 09/26/20 13:49 09/26/20 13:49 09/26/20 13:49 09/26/20 13:49 09/26/20 13:49 Oxygen Delivery Method Room Air Weight: 59.5 kg Body Mass Index (BMI) 20.5 Intake and Output for Last 24 Hours 09/24/20 09/25/20 09/26/20 23:59 23:59 23:59 Intake Total 1700 / 1700 600 / 600 300 / 300 Balance 1700 / 1700 600 / 600 300 / 300 Current Medications Acetaminophen (Acetaminophen 500 Mg Tablet) 500 mg PO Q4H PRN PRN PRN Reason: Temp > 100.4 F Albuterol Sulfate (Albuterol 2.5 Mg/3 Ml Vial.Neb.) 2.5 mg INHALATION Q4H PRN PRN PRN Reason: Shortness of breath, wheezing Last Admin: 09/25/20 02:54 Dose: 2.5 mg Documented by: Albuterol Sulfate (Albuterol 2.5 Mg/3 Ml Vial.Neb.) 2.5 mg INHALATION Q6HWA.RT [facility] Last Admin: 09/26/20 13:15 Dose: 2.5 mg Documented by: Dicyclomine HCl (Dicyclomine 10 Mg Capsule) 20 mg PO Q6H PRN PRN PRN Reason: abdominal discomfort Famotidine (Famotidine 20 Mg Tablet) 20 mg PO BID [facility] Last Admin: 09/26/20 13:29 Dose: 20 mg Documented by: Folic Acid (Folic Acid 1 Mg Tablet) 1 mg PO DAILY@0800 [facility] Last Admin: 09/26/20 13:29 Dose: 1 mg Documented by: Loperamide HCl (Loperamide 2 Mg Capsule) 2 mg PO Q4H PRN PRN PRN Reason: LOOSE STOOLS Ondansetron HCl (Ondansetron 8 Mg Tablet) 8 mg PO Q8H PRN PRN PRN Reason: NAUSEA Phenobarbital (Phenobarbital 32.4 Mg Tablet) 32.4 mg PO Q6H [facility]; Taper Stop: 09/27/20 09:29 Last Admin: 09/26/20 15:20 Dose: 32.4 mg Documented by: Prednisone (Prednisone 20 Mg Tablet) 40 mg PO DAILY@0800 [facility] Thiamine HCl ([facility] Hydrochloride 100 Mg Tablet) [facility] Last Admin: 09/26/20 13:29 Dose: 100 mg Documented by: Trazodone HCl (Trazodone 100 Mg Tablet) 100 mg PO QHS PRN PRN Reason: INSOMNIA Last Admin: 09/25/20 21:20 Dose: 100 mg Documented by: Medical Necessity - Tobacco Use Smoking Status: Never smoker Assessment/Plan All Active Problems Alcohol abuse (Acute) Acute alcohol withdrawal (Acute) Methamphetamine abuse (Acute) #1 acute alcohol withdrawal-patient's medications remain unchanged, patient states that he has plans to go to an inpatient alcohol detox center-180 is helping him with arrangements. This will most likely occur this Monday. I will keep the patient on phenobarbital until he is discharged. #2 chronic alcoholism #3 GERD #4 methamphetamine abuse #5 possible asthmatic bronchitis-I do not think the patient needs an antibiotic at this time, I will place him on prednisone 40 mg daily and administer every 6 hour aerosol treatments while awake. Inpatient E&M: 35299 Subs Hosp L2
[2020-09-26] MEDS: traZODone 100 MG Tablet PO (21:33)
[2020-09-27] VITALS (8 sets, daily range): BP systolic 101–127; BP diastolic 65–78; PULSE 78–97; RESP 12–18; TEMP 36.4–36.8; O2SAT 94–100
[2020-09-27] MEDS: Phenobarbital 32.4 MG Tablet PO ×3 (04:05→21:02)
[2020-09-27] MEDS: Albuterol 2.5 MG/3 ML VIAL.NEB. INHALATION ×4 (04:23→19:22)
[2020-09-27] MEDS: Thiamine Hydrochloride 100 MG Tablet PO (09:33)
[2020-09-27] MEDS: predniSONE 20 MG Tablet 40 MG PO (09:33)
[2020-09-27] MEDS: Famotidine 20 MG Tablet PO ×2 (09:33→21:05)
[2020-09-27] MEDS: Folic Acid 1 MG Tablet PO (09:33)
--- NOTE | 2020-09-27 15:17 | PCM.PROGNOTE ---
Patient Problems: Active and Suspected Problems Alcohol abuse (Acute) Acute alcohol withdrawal (Acute) Methamphetamine abuse (Acute) Subjective: Patient was seen and examined today, he does not complain of any increased anxiety or tremor. I elected to restart his phenobarbital on a twice daily dosage. - Physical Exam Vitals/I&O's: Vital Signs Temp Pulse Resp BP Pulse Ox 97.9 F 92 12 107/65 95 09/27/20 09:56 09/27/20 13:28 09/27/20 13:28 09/27/20 09:56 09/27/20 09:56 Oxygen Delivery Method Room Air Weight: 59.5 kg Body Mass Index (BMI) 20.5 Intake and Output for Last 24 Hours 09/25/20 09/26/20 09/27/20 23:59 23:59 23:59 Intake Total 600 / 600 800 / 1000 200 / 200 Balance 600 / 600 800 / 1000 200 / 200 General: Alert, Oriented x3, Cooperative, No apparent distress, Well developed HEENT: Atraumatic, PERRLA, EOMI, Normocephalic Oral: Moist Mucosa Neck: Supple, No JVD, Trachea Midline, Thyroid Normal Size and Texture Lungs: Clear to auscultation, Normal air movement, No rhonchi, Wheezes - Scattered expiratory wheezes bilaterally Cardiovascular: Regular rate, Regular Rhythm, Normal S1, Normal S2, No murmurs, PMI Normal, No rub noted, No Gallop Abdomen: Bowel Sounds Present, Soft, Non Tender, Non-Distended Extremities: No clubbing, No cyanosis, No edema, Capillary Refill Less than 3 Seconds Skin: No rashes, No breakdown Musculoskeletal: No Tenderness to Palpation of Joints or Extremities Neurological: Cranial nerves II-XII grossly intact, Neuro grossly intact, Sensory exam intact to light touch and pain Psych/Mental Status: Normal Affect, Appropriate, Alert and oriented to time, place, person, mood and affect Current Medications Acetaminophen (Acetaminophen 500 Mg Tablet) 500 mg PO Q4H PRN PRN PRN Reason: Temp > 100.4 F Albuterol Sulfate (Albuterol 2.5 Mg/3 Ml Vial.Neb.) 2.5 mg INHALATION Q4H PRN PRN PRN Reason: Shortness of breath, wheezing Last Admin: 09/27/20 04:23 Dose: 2.5 mg Documented by: Albuterol Sulfate (Albuterol 2.5 Mg/3 Ml Vial.Neb.) 2.5 mg INHALATION Q6HWA.RT [facility] Last Admin: 09/27/20 13:28 Dose: 2.5 mg Documented by: Dicyclomine HCl (Dicyclomine 10 Mg Capsule) 20 mg PO Q6H PRN PRN PRN Reason: abdominal discomfort Famotidine (Famotidine 20 Mg Tablet) 20 mg PO BID [facility] Last Admin: 09/27/20 09:33 Dose: 20 mg Documented by: Folic Acid (Folic Acid 1 Mg Tablet) 1 mg PO DAILY@0800 [facility] Last Admin: 09/27/20 09:33 Dose: 1 mg Documented by: Loperamide HCl (Loperamide 2 Mg Capsule) 2 mg PO Q4H PRN PRN PRN Reason: LOOSE STOOLS Ondansetron HCl (Ondansetron 8 Mg Tablet) 8 mg PO Q8H PRN PRN PRN Reason: NAUSEA Phenobarbital (Phenobarbital 32.4 Mg Tablet) 32.4 mg PO BID [facility] Last Admin: 09/27/20 10:30 Dose: Not Given Documented by: Prednisone (Prednisone 20 Mg Tablet) 40 mg PO DAILY@0800 [facility] Last Admin: 09/27/20 09:33 Dose: 40 mg Documented by: Thiamine HCl (Thiamine Hydrochloride 100 Mg Tablet) 100 mg PO DAILYCM [facility] Last Admin: 09/27/20 09:33 Dose: 100 mg Documented by: Trazodone HCl (Trazodone 100 Mg Tablet) 100 mg PO QHS PRN PRN Reason: INSOMNIA Last Admin: 09/26/20 21:33 Dose: 100 mg Documented by: Medical Necessity - Tobacco Use Smoking Status: Never smoker Assessment/Plan All Active Problems Alcohol abuse (Acute) Acute alcohol withdrawal (Acute) Methamphetamine abuse (Acute) #1 acute alcohol withdrawal-patient's medications remain unchanged, patient states that he has plans to go to an inpatient alcohol detox center-180 is helping him with arrangements. This will most likely occur this Monday. I will keep the patient on phenobarbital until he is discharged. #2 chronic alcoholism #3 GERD #4 methamphetamine abuse #5 possible asthmatic bronchitis-patient's lung sounds are improved today, continue with prednisone and albuterol aerosols. Inpatient E&M: 15809 [facility] Hosp L2
[2020-09-27] MEDS: traZODone 100 MG Tablet PO (21:02)
[2020-09-28 05:40] VITALS: PULSE 88; RESP 18
[2020-09-28] MEDS: Albuterol 2.5 MG/3 ML VIAL.NEB. INHALATION (05:40)
[2020-09-28 08:42] VITALS: BP 121/63; PULSE 83; RESP 16; TEMP 36.6; O2SAT 100
[2020-09-28] MEDS: predniSONE 20 MG Tablet 40 MG PO (08:43)
[2020-09-28] MEDS: Folic Acid 1 MG Tablet PO (08:46)
[2020-09-28] MEDS: Thiamine Hydrochloride 100 MG Tablet PO (08:46)
[2020-09-28] MEDS: Famotidine 20 MG Tablet PO (08:46)
[2020-09-28] MEDS: Phenobarbital 32.4 MG Tablet PO (08:54)
--- NOTE | 2020-09-28 08:55 | CASEMGMT ---
Addendum entered by Brianna Beal 09/28/20 11:48: Pancho at [facility] asked for SW to get a phone number from pt, so she can follow up w/pt once there is a bed available. SW spoke w/pt, he states does not have a phone, he will call in daily. SW called [facility], they will not take pt back. Pt had informed physician he is calling around to friends to find a place to stay. BEBETO Nicholson Original Note: SW spoke w/pt navigator Pancho with [facility], plan is for pt to eventually go to [facility] when they can again take patients. For now, pt to return to [facility] at discharge. BEBETO Nicholson
--- NOTE | 2020-09-28 10:54 | PCM.DC ---
- Discharge Diagnoses Current Active Problems: Current Active and Chronic Problems Alcohol abuse (Acute) Acute alcohol withdrawal (Acute) Methamphetamine abuse (Acute) GERD (gastroesophageal reflux disease) (Chronic) Alcoholism (Chronic) You will use the following diet at home:: No restrictions Your food should be the consistency of: Regular Your liquids should be the consistency of: Regular/Thin Discharge Activity: Return to Normal Activity Weight Bearing Status: Full weight bearing Allergies/Adverse Reactions: Allergies No Known Allergies Allergy (Verified 09/22/20 20:33) Medications to take at Discharge Albuterol Inhaler [Ventolin Hfa] 2 puff INHALATION Q4H PRN PRN #1 inhaler 09/20/20 Prednisone [Deltasone] 60 mg PO DAILY 09/23/20 Phenobarbital 32.4 mg PO BID #28 tablet 09/28/20 The following prescriptions were given: Phenobarbital 32.4 mg PO BID #28 tablet Transmission Status: Sent to [facility] Primary Care Physician: Care Physician,No Primary [Primary Care Provider] - Test Results: Test results from this visit will be discussed in further detail at your follow-up appointment, if applicable. Please Follow Up With: 180 as directed
[2020-09-28 12:35] VITALS: BP 128/66; PULSE 85; RESP 18; TEMP 36.6; O2SAT 100
--- NOTE | 2020-09-28 12:50 | CASEMGMT ---
Social Work Ha Beal updated this geriatric social worker that [facility] recommended calling [facility] to see if there would be any options for residential placement. This geriatric social worker attempted to speak with patient in room. Patient has already left the hospital and does not have a phone for this geriatric social worker to be able to contact patient at. Plan will continue for patient to call [facility] daily. Ha Beal updated on above. Love MOE, DOLLY-S
--- NOTE | 2020-09-28 16:35 | PCM.DC.SUM ---
Discharge Date and Diagnosis - Problem List Patient Problems: Active and Suspected Problems Alcohol abuse (Acute) Acute alcohol withdrawal (Acute) Methamphetamine abuse (Acute) Date of Admission: 09/22/20 Date of Discharge: 09/28/20 - Primary Discharge Diagnosis Acute Problems: Active Problems Acute alcohol withdrawal (Acute) Methamphetamine abuse Alcoholism Asthmatic bronchitis GERD - Secondary Discharge Diagnosis Chronic Problems: Chronic Problems Bulla of lung (Chronic) GERD (gastroesophageal reflux disease) (Chronic) Alcoholism (Chronic) Hospital Course and Treatment Operations: None Procedures: None Summary of Care Provided: The patient is a 44 year old M who was seen in the emergency room at [facility] requesting services for alcohol detox. Patient also uses methamphetamines. Patient was admitted to [place] [address], orders were entered using the alcohol withdrawal order set and the patient was contacted by the social work nurse from [facility]. Patient was placed on aerosol treatments and prednisone due to wheezing which was felt to be secondary to asthmatic bronchitis. On 09/28/2020, patient was seen and examined: On examination he appeared in good health and spirits. Vital signs as documented. Skin warm and dry and without overt rashes. Neck without JVD, neck was supple, trachea midline, thyroid was normal. Lungs clear bilaterally, normal air movement was noted. Heart exam notable for regular rhythm, normal sounds and absence of murmurs, rubs or gallops. Abdomen unremarkable and without evidence of organomegaly, masses, or abdominal aortic enlargement. Bowel sounds are present, abdomen is not distended. Extremities nonedematous, no cyanosis was noted, no clubbing was noted. Neuro: Cranial nerves II through XII are grossly intact, no focal motor deficits were noted, sensation to light touch and pinprick intact, motor exam 5/5 throughout. Psych: Patient is alert and oriented x3, he does not appear anxious or depressed, he does not appear agitated. I made the decision at the time of discharge to give the patient a prescription for phenobarbital to help him refrain from drinking. Patient will be following up with [facility] as an outpatient, at the time of discharge there was not an inpatient program for the patient to be admitted to. Patient was discharged in stable condition on 09/28/2020. Patient Problems: Active and Suspected Problems Alcohol abuse (Acute) Acute alcohol withdrawal (Acute) Methamphetamine abuse (Acute) - Physical Exam Vitals/I&O's: Vital Signs Temp Pulse Resp BP Pulse Ox 97.9 F 85 18 128/66 H 100 09/28/20 12:35 09/28/20 12:35 09/28/20 12:35 09/28/20 12:35 09/28/20 12:35 Oxygen Delivery Method Room Air Weight: 59.5 kg Body Mass Index (BMI) 20.5 Intake and Output for Last 24 Hours 09/26/20 09/27/20 09/28/20 23:59 23:59 23:59 Intake Total 800 / 1000 200 / 200 Balance 800 / 1000 200 / 200 Discharge Activity: Return to Normal Activity Weight Bearing Status: Full weight bearing Home Medications: Medications to take at Discharge Albuterol Inhaler [Ventolin Hfa] 2 puff INHALATION Q4H PRN PRN #1 inhaler 09/20/20 Prednisone [Deltasone] 60 mg PO DAILY 09/23/20 Phenobarbital 32.4 mg PO BID #28 tab 09/28/20 Following Prescriptions Were Given to Patient: Phenobarbital 32.4 mg PO BID #28 tab Transmission Status: Received by [facility] Primary Care Physician: Care Physician,No Primary [Primary Care Provider] - Please Follow Up With: 180 as directed Disposition: Home Minutes spent on discharge:: 31 Patient Condition:: Stable Medical Necessity - Tobacco Use Smoking Status: Never smoker Meaningful Use Info Meaningful Use Diagnoses (Choose all that apply): None applicable Inpatient E&M: 23335 Disch Hosp
== END 2020-09-28 12:35 | disposition home or self-care (01) | DRG 775 ==
LOC: ED 23:14 → MS3 23:51
PROVIDERS: Admitting Provider Hospitalist; Emergency Provider Emergency Medicine; Visit Provider Internal Medicine
DX: F10.239 Alcohol dependence with withdrawal, unspecified (principal); Y90.0 Blood alcohol level of less than 20 mg/100 ml; F15.10 Other stimulant abuse, uncomplicated; Z20.828 Contact with and (suspected) exposure to other viral communicable diseases; J43.9 Emphysema, unspecified; J45.901 Unspecified asthma with (acute) exacerbation; M79.89 Other specified soft tissue disorders; K21.9 Gastro-esophageal reflux disease without esophagitis; Z23 Encounter for immunization; Z59.0 Homelessness
CPT/HCPCS: 71045; 80053; 80307; 80320; 85025; 87426; 93005; 94640; 97802; 99283; 99284; 90686; A4216; G0480

== ENCOUNTER 2020-10-23 15:01 | Emergency (ER) | payer MEDICAID, SELFPAY ==
[2020-09-23 00:21] VITALS: BMI 20.5
[2020-10-23 15:01] VITALS: BP 162/84; PULSE 101; RESP 18; TEMP 35.3; O2SAT 94; BMI 28.2
--- NOTE | 2020-10-23 15:50 | CM.ED ---
SOCIAL WORK Informant: Dr. Walsh Reason for Consult: Substance Abuse Met with patient in room. Introduced role and reason for referral. Patient reports has been through detox program here before about 1 month ago. Patient states shortly after leaving hospital relapsed. Patient reports use of alcohol and marijuana. Patient reports plan of getting my life together. Patient states just received housing voucher through [employer]. Support and encouragement provided. Dr. Walsh updated on the above. Dr. Walsh to discuss with hospitalist. Plan: Admit to [facility], [facility], [facility]
[2020-10-23 16:34] LABS: Absolute Lymphocyte Count 1.79 X10^3/uL (0.83-4.51); Absolute Neutrophil Count 2.9 X10^3/uL (2.0-7.7); Basophil# 0.04 X10^3/uL; Basophil% 0.7 % (0-1); Eosinophil# 0.34 X10^3/uL; Eosinophils% 6.2 % (0-5); Hematocrit 38.9 % (40-54); Hemoglobin 13.1 g/dL (13.0-16.5); Lymphocyte # 1.79 X10^3/ul (4.0); Lymphocyte % 32.5 % (19-41); Mean Corp Hgb Conc 33.7 g/dL (32-36); Mean Corpuscular Hgb 31.3 pg (27.0-32.0); Mean Corpuscular Volume 93.1 fL (80-94); Mean Platelet Vol. 8.4 fl (6.2-12.0); Monocyte# 0.45 X10^3/uL; Monocyte% 8.2 % (0-10); NRBC Flagged by Analyzer 0 % (0-5); Neutrophil # 2.88 X10^3/uL (2.7-7.7); Neutrophil % 52.2 % (47-70); Platelet Count 365 K/mm3 (150-450); RBC Distribution Width CV 12.7 % (11.6-14.6); RBC Distribution Width SD 43.8 fl (35.1-43.9); Red Blood Count 4.18 M/mm3 (4.6-6.2); White Blood Count 5.5 K/mm3 (4.4-11.0)
[2020-10-23 16:50] LABS: AST(SGOT) 280 U/L (15-37); Alanine Aminotransfer ALT/SGPT 665 U/L (16-61); Albumin, Serum 3.7 g/dL (3.2-5.0); Alkaline Phosphatase 72 U/L (45-117); Anion Gap 5 (5-15); BUN 18 mg/dL (7-18); BUN/Creat Ratio 21.8 RATIO (10-20); Calcium,Total 8.1 mg/dL (8.5-10.1); Chloride 110 mmol/L (98-107); Creatinine, Serum 0.83 mg/dL (0.70-1.30); EST Glomerular Filtration Rate 107 mL/min (>60); Est Glom Filt Rate - Afr Amer 130 mL/min (>60); Estimated Creatinine Clearance 102.49 ml/min; Globulin 3.6 g/dL (2.2-4.2); Glucose 96 mg/dL (74-106); Potassium 3.5 mmol/L (3.5-5.1); Protein, Total 7.3 g/dL (6.4-8.2); Sodium Level 140 mmol/L (136-145)
--- NOTE | 2020-10-23 16:53 | ED.VIS.GEN ---
History of Present Illness Chief Complaint: Substance Abuse Informant: Patient Onset: Month(s) Context: Gradual Onset Timing: Continuous Quality: Alcoholism Location: Not applicable Current Severity: Moderate Maximum Severity: Moderate Worsened by: Homeless Relieved by: Not able to get into residential program Associated Symptoms: Jitteriness due to consumption of 4 [place] drinks Narrative: Patient is a alcoholic. Does admit to drug use i.e. methamphetamine and marijuana. He states he snorts the methamphetamine. He denies history of HIV or hepatitis. He was seen 1 month ago and because he was not set up for a residential program he began to drink again. He does have a voucher for federal housing. He would like to stop drinking and not lose his federal housing. Patient admits to smoking 1 pack/day. He denies fever, chills night sweats. He denies URI symptoms. He denies cardiac or respiratory symptoms. He has black or maroon stool. He denies bruising easily. He denies dark-colored urine or blood in his urine. Patient states he would like help. He told me he had 4 [place] Drinks and feels that is why he feels tremors and anxious. Prior similar symptoms: Yes Recent Illness/Hospitalization: Yes - Past Medical History (1) Acute alcohol withdrawal Status: Acute (2) Alcohol abuse Status: Acute (3) Methamphetamine abuse Status: Acute (4) Alcoholism Status: Chronic (5) Bulla of lung Status: Chronic (6) GERD (gastroesophageal reflux disease) Status: Chronic Past Medical History - Allergies and Home Meds Allergies/Adverse Reactions: Allergies No Known Allergies Allergy (Verified 10/23/20 15:01) Primary Care Physician: Care Physician,No Primary [Primary Care Provider] - Prior records reviewed: Yes Surgical History: - - Open reduction and internal fixation of left ankle fracture. Lives: Alone, Homeless Smoking Status: Never smoker Alcohol: Heavy Drugs: Marijuana, - - Methamphetamine - Family History Maternal Family History: Reports: No pertinent history Paternal Family History: Reports: No pertinent history Review of Systems General: Denies: Chills, Fever, Sweats Eyes: Denies: Visual changes - bilaterally, Diplopia ENT: Denies: Rhinorrhea, Sore throat Cardiovascular: Reports: Palpitations, Heart racing. Denies: Chest pain Respiratory: Reports: Cough - She contributes to his smoking. No change in cough and no sputum production. Denies: Dyspnea, Dyspnea on exertion, Orthopnea, Paroxysmal nocturnal dyspnea Gastrointestinal: Denies: Abdominal pain, Nausea, Vomiting, Diarrhea, Melena, Hematochezia Genitourinary: Denies: Dysuria, Hematuria, Frequency Musculoskeletal: Denies: Myalgias, Arthralgias, Neck pain, Back pain, Extremity Pain Skin: Denies: Rash, Wounds Neurological: Denies: Headache, Weakness, Numbness Psych: Reports: Depression, Anxiety Hematologic: Denies: Easy bruising, Easy bleeding Allergy: Denies: Uticaria Physical Exam Vital Signs/Narrative: Vital Signs Temp Pulse Resp BP Pulse Ox 10/23/20 15:01 95.6 F L 101 H 18 162/84 H 94 Inital Vital Signs reviewed: Yes General: Well nourished, Well developed, Acute Distress Eyes: Perrl, EOMI. Negative for: Pale conjunctiva, Scleral icterus ENT: No rhinorrhea, TM's clear. Negative for: Moist mucous membranes, Nasal congestion, Sinus tenderness Neck: Supple, Nontender, No lymphadenopathy, No JVD Cardiovascular: Regular rhythm, No murmurs, Normal S1, Normal S2, Tachycardia Abdomen: Soft, Nontender, Nondistended, Normal bowel sounds, No masses. Negative for: Hepatomegaly, Splenomegaly, Ventral hernia, Umbilical hernia Back: Nontender, Normal Inspection. Negative for: CVA tenderness Extremities: Nontender, No edema Skin: Normal color, No rash, No Trauma - Higher laceration left antecubital fossa healed without evidence of infection. Negative for: Cyanosis, Diaphoresis, Jaundice Neurological: Alert, Oriented x3, Cranial nerves II-XII grossly intact, Normal Strength, Normal Sensation, Normal DTR, Normal Gait Psychological: - - Which is pressured. He is anxious and animated. Diagnostic/Tx/Re-eval Laboratory Results 10/23/20 10/23/20 10/23/20 16:20 16:20 16:20 WBC 5.5 RBC 4.18 L Hgb 13.1 Hct 38.9 L MCV 93.1 MCH 31.3 MCHC 33.7 RDW Std Deviation 43.8 RDW Coeff of Bridger 12.7 Plt Count 365 MPV 8.4 Immature Gran % (Auto) 0.200 Neut % (Auto) 52.2 Lymph % (Auto) 32.5 Luce % (Auto) 8.2 Eos % (Auto) 6.2 H Baso % (Auto) 0.7 Absolute Neuts (auto) 2.9 Absolute Lymphs (auto) 1.79 Nucleated RBC % 0 Sodium 140 Potassium 3.5 Chloride 110 H Carbon Dioxide 25.0 Anion Gap 5 BUN 18 Creatinine 0.83 Estim Creat Clear Calc 102.49 Est GFR (MDRD) Af Amer 130 Est GFR (MDRD) Non-Af 107 BUN/Creatinine Ratio 21.8 H Glucose 96 Calcium 8.1 L Total Bilirubin 0.70 AST 280 H ALT 665 H Alkaline Phosphatase 72 Total Protein 7.3 Albumin 3.7 Globulin 3.6 Albumin/Globulin Ratio 1.0 Ethyl Alcohol 99.0 Alcohol is nine 9.0. Comprehensive metabolic panel is remarkable for an elevated AST and ALT of 280 and 665. CBC is unremarkable. Patient wishes to go. Had case management speak with him again. He is to contact [facility]. His concern is that he will lose his federal housing. He was informed he would not lose his federal housing. It is my professional medical opinion patient understands that it is best interest to stay for detox and has the capacity to leave since it is a voluntary - Medical Decision Making Prior to obtaining blood work spoke with case management. He would qualify for admission. [facility] will work with him. In light of this work-up was initiated for admission to detox unit. ED Disposition - Plan for ED Patient: Disposition: Home or Assisted Living Diagnosis: Alcohol abuse with intoxication, Sinus tachycardia by electrocardiography, Methamphetamine abuse Referrals: Care Physician,No Primary [Primary Care Provider] - [facility] [STAFF PHYSICIAN] -
--- NOTE | 2020-10-23 17:00 | CM.ED ---
SOCIAL WORK Nurse, Carolee reports patient wishes to leave. Requesting this worker speak with patient. Met with patient in room. Patient apologized to this worker and states wishes to leave due to concerns with losing housing. Education provided. Patient states will follow up with [facility]. Dr. Walsh updated and will discharge patient at this time. Shree Brown, [employer], SPECIAL EDUCATION TEACHING ASSISTANT
== END 2020-10-23 17:16 | disposition home or self-care (01) ==
PROVIDERS: Emergency Provider Emergency Medicine
DX: F10.229 Alcohol dependence with intoxication, unspecified (principal); F15.10 Other stimulant abuse, uncomplicated; J43.9 Emphysema, unspecified; K21.9 Gastro-esophageal reflux disease without esophagitis; Z59.0 Homelessness; F17.200 Nicotine dependence, unspecified, uncomplicated
CPT/HCPCS: 80048; 80053; 82077; 85025; 99282

== ENCOUNTER 2020-11-22 09:33 | Inpatient (IN) | payer MEDICAID, SELFPAY ==
[2020-11-22 09:34] VITALS: BP 138/79; PULSE 92; RESP 18; TEMP 35.7; O2SAT 98; BMI 21.7
--- NOTE | 2020-11-22 09:45 | ED.VIS.GEN ---
History of Present Illness Chief Complaint: Substance Abuse Narrative: Patient is a 44-year-old male who presents seeking alcohol detox. He states he wants to get his head right. He was seen here in this emergency department a little less than a month ago and expressed interest in alcohol detox. Medical clearance work-up was started and then the patient elected to leave. He has no medical complaints at this time. He denies any medical history or daily medications. He states he drinks about 5-6 tall boys per day. Medical clearance unremarkable. Urine drug screen positive for amphetamines. Patient discussed with the hospitalist and admitted. Past Medical History - Allergies and Home Meds Allergies/Adverse Reactions: Allergies No Known Allergies Allergy (Verified 11/22/20 09:34) Primary Care Physician: Care Physician,No Primary [Primary Care Provider] - Past Medical History: - - Alcohol abuse Surgical History: - - Open reduction and internal fixation of left ankle fracture. Smoking Status: Never smoker - Family History Maternal Family History: Reports: No pertinent history Paternal Family History: Reports: No pertinent history Review of Systems All systems negative except as indicated General: Denies: Fever Eyes: Denies: Visual changes - bilaterally ENT: Denies: Bilateral ear pain Cardiovascular: Denies: Chest pain Respiratory: Denies: Dyspnea Gastrointestinal: Denies: Abdominal pain, Vomiting Musculoskeletal: Denies: Myalgias Skin: Denies: Rash Neurological: Denies: Headache Allergy: Denies: Uticaria Physical Exam Vital Signs/Narrative: Vital Signs Temp Pulse Resp BP Pulse Ox 11/22/20 09:34 96.2 F L 92 18 138/79 H 98 Inital Vital Signs reviewed: Yes General: Well nourished Head: Normocephalic Eyes: EOMI ENT: Moist mucous membranes Neck: Supple Cardiovascular: Regular rate Respiratory: No distress Abdomen: Soft, Nontender Skin: Normal color Neurological: Alert Psychological: Normal affect ED Disposition - Plan for ED Patient: Disposition: Acute Care [facility] Diagnosis: Alcohol abuse Referrals: Care Physician,No Primary [Primary Care Provider] -
[2020-11-22 10:03] LABS: Absolute Lymphocyte Count 1.42 X10^3/uL (0.83-4.51); Absolute Neutrophil Count 4.5 X10^3/uL (2.0-7.7); Basophil# 0.05 X10^3/uL; Basophil% 0.8 % (0-1); Eosinophil# 0.19 X10^3/uL; Eosinophils% 2.9 % (0-5); Hematocrit 45.1 % (40-54); Hemoglobin 14.7 g/dL (13.0-16.5); Lymphocyte # 1.42 X10^3/ul (4.0); Lymphocyte % 21.7 % (19-41); Mean Corp Hgb Conc 32.6 g/dL (32-36); Mean Corpuscular Hgb 31.3 pg (27.0-32.0); Mean Corpuscular Volume 96.2 fL (80-94); Mean Platelet Vol. 8.9 fl (6.2-12.0); Monocyte# 0.35 X10^3/uL; Monocyte% 5.4 % (0-10); NRBC Flagged by Analyzer 0 % (0-5); Neutrophil % 68.9 % (47-70); Platelet Count 359 K/mm3 (150-450); RBC Distribution Width CV 12.4 % (11.6-14.6); RBC Distribution Width SD 43.8 fl (35.1-43.9); Red Blood Count 4.69 M/mm3 (4.6-6.2); White Blood Count 6.5 K/mm3 (4.4-11.0)
[2020-11-22 10:17] LABS: AST(SGOT) 34 U/L (15-37); Alanine Aminotransfer ALT/SGPT 58 U/L (16-61); Albumin, Serum 4.1 g/dL (3.2-5.0); Alkaline Phosphatase 63 U/L (45-117); Anion Gap 7 (5-15); BUN 23 mg/dL (7-18); BUN/Creat Ratio 21.3 RATIO (10-20); Calcium,Total 8.9 mg/dL (8.5-10.1); Chloride 105 mmol/L (98-107); Creatinine, Serum 1.08 mg/dL (0.70-1.30); EST Glomerular Filtration Rate 79 mL/min (>60); Est Glom Filt Rate - Afr Amer 95 mL/min (>60); Globulin 4.3 g/dL (2.2-4.2); Glucose 82 mg/dL (74-106); Potassium 3.4 mmol/L (3.5-5.1); Protein, Total 8.4 g/dL (6.4-8.2); Sodium Level 142 mmol/L (136-145)
[2020-11-22 10:32] LABS: Alcohol, Blood (Medical)-Serum < 3.0 mg/dL
[2020-11-22 11:25] LABS: Amphetamine Urine VISTA POSITIVE (<1000 ng/mL); Barbiturate Urine VISTA NEGATIVE (< 200 ng/mL); Benzodiazepine Urine VISTA NEGATIVE (< 200 ng/mL); Cocaine Urine VISTA NEGATIVE (< 300 ng/mL); Ecstacy Urine VISTA NEGATIVE (< 500 ng/mL); Methadone Urine VISTA NEGATIVE (< 300 ng/mL); PCP Urine VISTA NEGATIVE (< 25 ng/mL); THC Urine VISTA NEGATIVE (< 50 ng/mL); Vista UDS pH Range 7
--- NOTE | 2020-11-22 11:34 | NURSING ---
DR CHARLES FOR DR BRIGHT
--- NOTE | 2020-11-22 11:42 | NURSING ---
MED SURG PAINTSIL ALCOHOL ABUSE
[2020-11-22 11:48] VITALS: BP 114/81; PULSE 74; RESP 16; TEMP 36.3; O2SAT 100
[2020-11-22 12:12] VITALS: BMI 20.2; BMI 20.3
[2020-11-22 12:13] VITALS: BP 131/84; PULSE 73; RESP 18; TEMP 37.1; O2SAT 98
[2020-11-22 12:45] LABS: Magnesium 2.1 mg/dL (1.6-2.6)
--- NOTE | 2020-11-22 12:56 | HP.PCM_ITS ---
Problem List (1) Alcohol abuse Status: Chronic (2) Acute alcohol withdrawal Status: Acute (3) Bulla of lung Status: Chronic (4) GERD (gastroesophageal reflux disease) Status: Chronic Qualifiers: Esophagitis presence: esophagitis presence not specified Qualified Code(s): K21.9 - Gastro-esophageal reflux disease without esophagitis History of Present Illness Date of Admission: 11/22/20 Chief Complaint: Request for medical stabilisation The patient is a 44 year old M with past medical history of chronic alcohol use disorder who comes with request for medical stabilization. Patient admits to drinking a pack of 6 tall boys daily. He has been trying to taper off by himself but with no success. He last drank 1 day before admission and drank a couple of beers. He denied any shakiness, feeling hot or cold, nausea, vomiting or diarrhea. Vitals in the ED showed temperature of 96.2F, heart rate 92, blood pressure 138/70 respiratory rate is 18, SPO2 is 98% on room air. Admitting blood work showed WBC count of 6.5, hemoglobin 14.7, platelet count 359, sodium 142, potassium 3.4, chloride 105, bicarbonate 30, BUN 23, creatinine 1.08, magnesium 2.1, LFTs unremarkable. Urine tox is positive for amphetamines. Past Medical History Past Medical History (Chronic Problems): Chronic Problems Alcohol abuse (Chronic) Bulla of lung (Chronic) GERD (gastroesophageal reflux disease) (Chronic) Alcoholism (Chronic) Allergies No Known Allergies Allergy (Verified 11/22/20 09:34) Home Medications: Ambulatory Orders Medication Instructions Recorded NK 10/23/20 Surgical History: - - Open reduction and internal fixation of left ankle fracture. Psychiatric History: No pertinent psych hx Lives: Homeless Smoking Status: Never smoker Tobacco Use: Non-smoker Alcohol: None Drugs: None - *Family History Maternal History Items: No pertinent history Paternal History Items: No pertinent history Review of Systems Constitutional: Denies: Anorexia, Chills, Fever, Malaise, Weakness, Weight Change Eyes: Denies: Blurred vision, Cataracts HEENT: Denies: Difficulty Hearing, Difficulty Swallowing, Head Aches, Hearing Changes, Sinus Congestion, Sinus Drainage Cardiovascular: Denies: Chest Pain, Claudication, Orthopnea, Palpitations, Paroxysmal Noc. Dyspnea Respiratory: Denies: Cough, Hemoptysis, Shortness of breath at rest, Shortness of breath upon exertion, Sputum production Gastrointestinal: Denies: Abdominal Pain, Constipation, Diarrhea, Hematemesis, Hematochezia, Nausea, Vomiting Genitourinary: Denies: Dysuria, Frequency Musculoskeletal: Denies: Joint Pain, Joint stiffness, Joint swelling, Joint Tenderness Skin: Denies: Rash, Wounds Neurological: Denies: Difficulty swallowing, Focal weakness, Numbness, Tingling Psychiatric: Denies: Anxiety, Depression, Homicidal Ideations, Suicidal Ideatio ns Hematologic/ Lymphatic: Denies: Easy Bruising, Easy Bleeding VTE Information - Inpt Only VTE Present on Admission: No VTE Pharm Prophylaxis ordered?: Yes Patient Problems: Active and Suspected Problems Acute alcohol withdrawal (Acute) - Physical Exam Vitals/I&O's: Vital Signs Temp Pulse Resp BP Pulse Ox 98.7 F 73 18 131/84 H 98 11/22/20 12:13 11/22/20 12:13 11/22/20 12:13 11/22/20 12:13 11/22/20 12:13 Oxygen Delivery Method Room Air Weight: 56.971 kg Body Mass Index (BMI) 20.2 General: Alert, Oriented x3, Cooperative, No apparent distress HEENT: Atraumatic, PERRLA, EOMI, Normocephalic Oral: Moist Mucosa Neck: Supple Lungs: Clear to auscultation, Normal air movement Cardiovascular: Regular rate, Regular Rhythm, Normal S1, Normal S2, No murmurs Abdomen: Bowel Sounds Present, Soft, Non Tender, Non-Distended, No Hepato- splenomegaly Extremities: No edema Skin: No rashes Musculoskeletal: No Tenderness to Palpation of Joints or Extremities Lymphatic: No Cervical, Supraclavicular, or Inguinal Adenopathy Neurological: Cranial nerves II-XII grossly intact, Neuro grossly intact Psych/Mental Status: Normal Affect, Appropriate Laboratory Results 11/22/20 09:55: WBC 6.5, RBC 4.69, Hgb 14.7, Hct 45.1, MCV 96.2 H, MCH 31.3, MCHC 32.6, RDW Std Deviation 43.8, RDW Coeff of Bridger 12.4, Plt Count 359, MPV 8.9, Immature Gran % (Auto) 0.300, Neut % (Auto) 68.9, Lymph % (Auto) 21.7, [place] % (Auto) 5.4, Eos % (Auto) 2.9, Baso % (Auto) 0.8, Absolute Neuts (auto) 4.5, Absolute Lymphs (auto) 1.42, Nucleated RBC % 0 11/22/20 09:55: Sodium 142, Potassium 3.4 L, Chloride 105, Carbon Dioxide 30.0, Anion Gap 7, BUN 23 H, Creatinine 1.08, Estim Creat Clear Calc 75.60, Est GFR (MDRD) Af Amer 95, Est GFR (MDRD) Non-Af 79, BUN/Creatinine Ratio 21.3 H, Glucose 82, Calcium 8.9, Total Bilirubin 0.70, AST 34, ALT 58, Alkaline Phosphatase 63, Total Protein 8.4 H, Albumin 4.1, Globulin 4.3 H, Albumin/Globulin Ratio 1.0 11/22/20 09:55: Ethyl Alcohol < 3.0 11/22/20 09:55: Magnesium 2.1 11/22/20 11:08: Urine Opiates Screen NEGATIVE, Urine Methadone Screen NEGATIVE, Ur Barbiturates Screen NEGATIVE, Ur Phencyclidine Scrn NEGATIVE, Ur Amphetamines Screen POSITIVE H, U Methamphetamin-MDMA NEGATIVE, U Benzodiazepines Scrn NEGATIVE, Urine Cocaine Screen NEGATIVE, U Cannabinoids Screen NEGATIVE, Ur Drug Screen Comment Current Medications Dicyclomine HCl (Dicyclomine 10 Mg Capsule) 20 mg PO Q6H PRN PRN PRN Reason: abdominal discomfort Folic Acid (Folic Acid 1 Mg Tablet) 1 mg PO DAILY@0800 BETTY Gabapentin (Gabapentin 300 Mg Capsule) 300 mg PO Q8H PRN PRN PRN Reason: moderate to severe anxiety Hydroxyzine Pamoate (Hydroxyzine Caery 25 Mg Capsule) 50 mg PO Q4H PRN PRN PRN Reason: mild anxiety Loperamide HCl (Loperamide 2 Mg Capsule) 2 mg PO Q4H PRN PRN PRN Reason: LOOSE STOOLS Ondansetron HCl (Ondansetron 8 Mg Tablet) 8 mg PO Q8H PRN PRN PRN Reason: NAUSEA Phenobarbital (Phenobarbital 32.4 Mg Tablet) 0 mg PO UD BETTY; Taper Stop: 11/26/20 20:29 Potassium Chloride (Potassium Chloride Oral Tablet 20 Meq) 60 meq PO X1 ONE Stop: 02/21/21 12:31 Thiamine HCl (Thiamine Hydrochloride 100 Mg Tablet) 100 mg PO DAILYCM BETTY Trazodone HCl (Trazodone 100 Mg Tablet) 100 mg PO QHS PRN PRN Reason: INSOMNIA Assessment/Plan All Active Problems Acute alcohol withdrawal (Acute) Methamphetamine abuse (Acute) 1. Chronic alcohol use disorder, requesting for medical stabilization for impending acute alcohol withdrawal Will continue to monitor on phenobarbital withdrawal protocol 2. Polysubstance use disorder, patient admits to methamphetamine use Drug screen is positive for amphetamines 3. Hypokalemia, replaced, recheck in am 4. DVT PPx- low risk; early ambulation recommended Inpatient E&M: 09753 Init Hosp L2
[2020-11-22] MEDS: Phenobarbital 32.4 MG Tablet 64.8 MG PO ×3 (13:14→20:50)
[2020-11-22] MEDS: Potassium Chloride Oral Tablet 20 MEQ 60 MEQ PO (13:14)
[2020-11-22 15:50] VITALS: BP 115/78; PULSE 69; RESP 18; TEMP 36.8; O2SAT 98
[2020-11-22 20:49] VITALS: BP 113/67; PULSE 73; RESP 16; TEMP 36.8; O2SAT 98
[2020-11-23] MEDS: Phenobarbital 32.4 MG Tablet 64.8 MG PO ×4 (01:09→21:24)
[2020-11-23 01:12] VITALS: BP 121/74; PULSE 87; RESP 18; TEMP 36.9; O2SAT 99
[2020-11-23 05:17] VITALS: BP 113/85; PULSE 76; RESP 16; TEMP 37; O2SAT 99
[2020-11-23 06:33] LABS: Absolute Lymphocyte Count 1.35 X10^3/uL (0.83-4.51); Basophil# 0.04 X10^3/uL; Basophil% 0.8 % (0-1); Eosinophil# 0.28 X10^3/uL; Eosinophils% 5.5 % (0-5); Hematocrit 40.7 % (40-54); Lymphocyte # 1.35 X10^3/ul (4.0); Lymphocyte % 26.4 % (19-41); Mean Corp Hgb Conc 31.9 g/dL (32-36); Mean Corpuscular Hgb 31.2 pg (27.0-32.0); Mean Corpuscular Volume 97.6 fL (80-94); Mean Platelet Vol. 9.2 fl (6.2-12.0); Monocyte% 7.8 % (0-10); NRBC Flagged by Analyzer 0 % (0-5); Neutrophil # 3.03 X10^3/uL (2.7-7.7); Neutrophil % 59.3 % (47-70); Platelet Count 270 K/mm3 (150-450); RBC Distribution Width CV 12.5 % (11.6-14.6); RBC Distribution Width SD 45.2 fl (35.1-43.9); Red Blood Count 4.17 M/mm3 (4.6-6.2); White Blood Count 5.1 K/mm3 (4.4-11.0)
[2020-11-23 07:08] LABS: ALB/GLOB Ratio 0.9 RATIO (0.9-2.4); AST(SGOT) 25 U/L (15-37); Alanine Aminotransfer ALT/SGPT 44 U/L (16-61); Albumin, Serum 3.2 g/dL (3.2-5.0); Alkaline Phosphatase 51 U/L (45-117); Anion Gap 6 (5-15); BUN 20 mg/dL (7-18); BUN/Creat Ratio 28.5 RATIO (10-20); Calcium,Total 8.4 mg/dL (8.5-10.1); Chloride 107 mmol/L (98-107); EST Glomerular Filtration Rate 129 mL/min (>60); Est Glom Filt Rate - Afr Amer 157 mL/min (>60); Estimated Creatinine Clearance 108.52 ml/min; Globulin 3.6 g/dL (2.2-4.2); Glucose 108 mg/dL (74-106); Potassium 4.1 mmol/L (3.5-5.1); Protein, Total 6.8 g/dL (6.4-8.2); Sodium Level 137 mmol/L (136-145)
[2020-11-23 10:21] VITALS: BP 110/68; PULSE 87; RESP 18; TEMP 36.7; O2SAT 98
[2020-11-23] MEDS: Folic Acid 1 MG Tablet PO (10:23)
[2020-11-23] MEDS: Thiamine Hydrochloride 100 MG Tablet PO (10:23)
[2020-11-23] MEDS: Gabapentin 300 MG Capsule PO (10:25)
--- NOTE | 2020-11-23 10:35 | ADDICTION ---
This sba underwriter met with PT in his room to complete ASAM, MSE and AUDIT assessments and to plan for d/c. All assessments completed and faxed to [facility]. PT refused d/c planning and did not sign any MYRIAM's. PT was very agitated. This sba underwriter will attempt to engage with PT on 11/24/20.
--- NOTE | 2020-11-23 13:11 | PCM.PN.HOSP ---
Patient Problems: Active and Suspected Problems Acute alcohol withdrawal (Acute) Subjective: Patient seen and examined. He has been managed for acute alcohol withdrawal. Patient complains of feeling restless this morning. He denied any tremors, dizziness or any shakes. Review of systems otherwise negative. He has remained hemodynamically stable. Vitals/I&O's: Vital Signs Temp Pulse Resp BP Pulse Ox 98.0 F 87 18 110/68 98 11/23/20 10:11/23/20 10:11/23/20 10:11/23/20 10:11/23/20 10:21 Oxygen Delivery Method Room Air Weight: 125 lb 10.616 oz Body Mass Index (BMI) 20.2 Intake and Output for Last 24 Hours 11/21/20 11/22/20 11/23/20 23:59 23:59 23:59 Intake Total 850 / 850 Balance 850 / 850 General: Alert, Oriented x3, Cooperative, No apparent distress HEENT: Atraumatic, PERRLA, EOMI, Normocephalic Oral: Dry Mucosa Neck: Supple, No JVD, Negative Carotid Bruits Lungs: Clear to auscultation, Normal air movement Cardiovascular: Regular rate, Regular Rhythm, Normal S1, Normal S2, No murmurs Abdomen: Bowel Sounds Present, Soft, Non Tender, Non-Distended, No Hepato-splenomegaly Extremities: No clubbing, No cyanosis, No edema, Capillary Refill Less than 3 Seconds Skin: No rashes, No breakdown Musculoskeletal: No Tenderness to Palpation of Joints or Extremities Lymphatic: No Cervical, Supraclavicular, or Inguinal Adenopathy Neurological: Cranial nerves II-XII grossly intact, Neuro grossly intact, Motor Exam 5/5 strength throughout Psych/Mental Status: Anxious, - - irritable Laboratory Results 11/23/20 05:50: WBC 5.1, RBC 4.17 L, Hgb 13.0, Hct 40.7, MCV 97.6 H, MCH 31.2, MCHC 31.9 L, RDW Std Deviation 45.2 H, RDW Coeff of Bridger 12.5, Plt Count 270, MPV 9.2, Immature Gran % (Auto) 0.200, Neut % (Auto) 59.3, Lymph % (Auto) 26.4, Pierce % (Auto) 7.8, Eos % (Auto) 5.5 H, Baso % (Auto) 0.8, Absolute Neuts (auto) 3.0, Absolute Lymphs (auto) 1.35, Nucleated RBC % 0 11/23/20 05:50: Sodium 137, Potassium 4.1, Chloride 107, Carbon Dioxide 24.0, Anion Gap 6, BUN 20 H, Creatinine 0.70, Estim Creat Clear Calc 108.52, Est GFR (MDRD) Af Amer 157, Est GFR (MDRD) Non-Af 129, BUN/Creatinine Ratio 28.5 H, Glucose 108 H, Calcium 8.4 L, Total Bilirubin 0.40, AST 25, ALT 44, Alkaline Phosphatase 51, Total Protein 6.8, Albumin 3.2, Globulin 3.6, Albumin/Globulin Ratio 0.9 Current Medications Dicyclomine HCl (Dicyclomine 10 Mg Capsule) 20 mg PO Q6H PRN PRN PRN Reason: abdominal discomfort Folic Acid (Folic Acid 1 Mg Tablet) 1 mg PO DAILY@0800 [facility] Last Admin: 11/23/20 10:23 Dose: 1 mg Documented by: Gabapentin (Gabapentin 300 Mg Capsule) 300 mg PO Q8H PRN PRN PRN Reason: moderate to severe anxiety Last Admin: 11/23/20 10:25 Dose: 300 mg Documented by: Hydroxyzine Pamoate (Hydroxyzine Carey 25 Mg Capsule) 50 mg PO Q4H PRN PRN PRN Reason: mild anxiety Loperamide HCl (Loperamide 2 Mg Capsule) 2 mg PO Q4H PRN PRN PRN Reason: LOOSE STOOLS Ondansetron HCl (Ondansetron 8 Mg Tablet) 8 mg PO Q8H PRN PRN PRN Reason: NAUSEA Phenobarbital (Phenobarbital 32.4 Mg Tablet) 97.2 mg PO Q4H [facility]; Taper Stop: 11/26/20 21:14 Last Admin: 11/23/20 10:25 Dose: 97.2 mg Documented by: Thiamine HCl (Thiamine Hydrochloride 100 Mg Tablet) 100 mg PO DAILYCM [facility] Last Admin: 11/23/20 10:23 Dose: 100 mg Documented by: Trazodone HCl (Trazodone 100 Mg Tablet) 100 mg PO QHS PRN PRN Reason: INSOMNIA STROKE Vital Signs/Narrative: Vital Signs Temp Pulse Resp BP Pulse Ox 11/23/20 10:21 98.0 F 87 18 110/68 98 Medical Necessity - Tobacco Use Smoking Status: Never smoker Tobacco Use: Non-smoker Assessment/Plan All Active Problems Acute alcohol withdrawal (Acute) Methamphetamine abuse (Acute) #Acute alcohol withdrawal on phenobarbital protocol CIWA score today:0 on thiamine folic acid and multivites #Polysubstance abuse: #Hypokalemia: Resolved DVT Prophylaxis: Low risk. Encourage ambulation. Inpatient E&M: 41647 Subs Hosp L2
[2020-11-23 14:30] VITALS: BP 115/70; PULSE 80; RESP 18; TEMP 36.7; O2SAT 98
--- NOTE | 2020-11-23 15:30 | NURSING ---
1330 - LATE ENTRY - PT REFUSED SCHED PHENOBARBITOL. STATES IT IS MAKING HIM FEEL LIKE HIS HEAD IS SPINNING & CAN'T THINK CLEAR.
[2020-11-23 21:20] VITALS: BP 105/71; PULSE 79; RESP 18; TEMP 36.3; O2SAT 97
[2020-11-24] MEDS: Phenobarbital 32.4 MG Tablet 64.8 MG PO ×3 (01:20→09:18)
[2020-11-24 03:19] VITALS: BP 104/75; PULSE 86; RESP 16; TEMP 36.4; O2SAT 98
[2020-11-24 08:09] VITALS: BP 102/68; PULSE 86; RESP 18; TEMP 36.4; O2SAT 97
[2020-11-24] MEDS: Thiamine Hydrochloride 100 MG Tablet PO (08:20)
[2020-11-24] MEDS: Folic Acid 1 MG Tablet PO (08:20)
[2020-11-24] MEDS: Gabapentin 300 MG Capsule PO (08:20)
[2020-11-24] MEDS: hydrOXYzine PAM 25 MG Capsule 50 MG PO (08:20)
--- NOTE | 2020-11-24 11:52 | PN_ITS ---
Patient Problems: Active and Suspected Problems Acute alcohol withdrawal (Acute) Subjective: Patient seen and examined. He was anxious and had no complaints. Review of systems otherwise negative. He has remained hemodynamically stable. Vitals/I&O's: Vital Signs Temp Pulse Resp BP Pulse Ox 97.6 F L 86 18 102/68 97 11/24/20 08:09 11/24/20 08:09 11/24/20 08:09 11/24/20 08:09 11/24/20 08:09 Oxygen Delivery Method Room Air Weight: 125 lb 10.616 oz Body Mass Index (BMI) 20.2 Intake and Output for Last 24 Hours 11/22/20 11/23/20 11/24/20 23:59 23:59 23:59 Intake Total 850 / 850 960 / 1160 400 / 400 Balance 850 / 850 960 / 1160 400 / 400 General: Alert, Oriented x3, anxious HEENT: Atraumatic, PERRLA, EOMI, Normocephalic Oral: Dry Mucosa Neck: Supple, No JVD, Negative Carotid Bruits Lungs: Clear to auscultation, Normal air movement Cardiovascular: Regular rate, Regular Rhythm, Normal S1, Normal S2, No murmurs Abdomen: Bowel Sounds Present, Soft, Non Tender, Non-Distended, No Hepato- splenomegaly Extremities: No clubbing, No cyanosis, No edema, Capillary Refill Less than 3 Seconds Skin: No rashes, No breakdown Musculoskeletal: No Tenderness to Palpation of Joints or Extremities Lymphatic: No Cervical, Supraclavicular, or Inguinal Adenopathy Neurological: Cranial nerves II-XII grossly intact, Neuro grossly intact, Motor Exam 5/5 strength throughout Psych/Mental Status: Anxious, - - irritable Current Medications Dicyclomine HCl (Dicyclomine 10 Mg Capsule) 20 mg PO Q6H PRN PRN PRN Reason: abdominal discomfort Folic Acid (Folic Acid 1 Mg Tablet) 1 mg PO DAILY@0800 BETTY Last Admin: 11/24/20 08:20 Dose: 1 mg Documented by: Gabapentin (Gabapentin 300 Mg Capsule) 300 mg PO Q8H PRN PRN PRN Reason: moderate to severe anxiety Last Admin: 11/24/20 08:20 Dose: 300 mg Documented by: Hydroxyzine Pamoate (Hydroxyzine Carey 25 Mg Capsule) 50 mg PO Q4H PRN PRN PRN Reason: mild anxiety Last Admin: 11/24/20 08:20 Dose: 50 mg Documented by: Loperamide HCl (Loperamide 2 Mg Capsule) 2 mg PO Q4H PRN PRN PRN Reason: LOOSE STOOLS Ondansetron HCl (Ondansetron 8 Mg Tablet) 8 mg PO Q8H PRN PRN PRN Reason: NAUSEA Phenobarbital (Phenobarbital 32.4 Mg Tablet) 64.8 mg PO Q4H BETTY; Taper Stop: 11/26/20 21:14 Last Admin: 11/24/20 09:18 Dose: 64.8 mg Documented by: Thiamine HCl (Thiamine Hydrochloride 100 Mg Tablet) 100 mg PO DAILYCM BETTY Last Admin: 11/24/20 08:20 Dose: 100 mg Documented by: Trazodone HCl (Trazodone 100 Mg Tablet) 100 mg PO QHS PRN PRN Reason: INSOMNIA STROKE Vital Signs/Narrative: Vital Signs Temp Pulse Resp BP Pulse Ox 11/24/20 08:09 97.6 F L 86 18 102/68 97 Medical Necessity - Tobacco Use Smoking Status: Never smoker Tobacco Use: Non-smoker Assessment/Plan All Active Problems Acute alcohol withdrawal (Acute) Methamphetamine abuse (Acute) #Acute alcohol withdrawal * on phenobarbital protocol * CIWA score today:4 * on thiamine folic acid and multivites * #Polysubstance abuse: urine tox was positive for amphetamines also. #Hypokalemia: Resolved DVT Prophylaxis: Low risk. Encourage ambulation. Inpatient E&M: 42092 Subs Hosp L2
[2020-11-24 17:57] VITALS: BP 112/68; PULSE 100; RESP 18; TEMP 36.8; O2SAT 97
[2020-11-24 21:15] VITALS: BP 109/70; PULSE 89; RESP 16; TEMP 36.6; O2SAT 97
[2020-11-25 02:45] VITALS: BP 105/63; PULSE 82; RESP 16; TEMP 36.6; O2SAT 96
[2020-11-25 09:01] VITALS: BP 114/65; PULSE 94; RESP 16; TEMP 36.6; O2SAT 97
[2020-11-25] MEDS: Thiamine Hydrochloride 100 MG Tablet PO (09:03)
[2020-11-25] MEDS: Folic Acid 1 MG Tablet PO (09:04)
[2020-11-25] MEDS: Phenobarbital 32.4 MG Tablet 64.8 MG PO (09:04)
--- NOTE | 2020-11-25 10:07 | ADDICTION ---
This flex o writer operator attempted to meet with PT in his room to finalize d/c plan. PT was agitated, stated that he wants to get out of here and into my apartment and noted that he does not want follow-up treatment. This flex o writer operator attempted to review resources and patient asked why are you even here. This flex o writer operator attempted to explain the [facility] program, PT did not respond to this flex o writer operator's attempts to provide education. PT to d/c to his apartment that he does not have possession of at this time as he is working with [facility].
--- NOTE | 2020-11-25 11:07 | DCINST_ITS ---
- Discharge Diagnoses Current Active Problems: Current Active and Chronic Problems Alcohol abuse (Chronic) Acute alcohol withdrawal (Acute) Bulla of lung (Chronic) GERD (gastroesophageal reflux disease) (Chronic) You will use the following diet at home:: No restrictions Your food should be the consistency of: Regular Your liquids should be the consistency of: Regular/Thin Discharge Activity: Return to Normal Activity Weight Bearing Status: Weight bearing as tolerated Instructions: ED Alcohol Abuse Allergies/Adverse Reactions: Allergies No Known Allergies Allergy (Verified 11/22/20 09:34) Medications to take at Discharge NK 10/23/20 Primary Care Physician: Care Physician,No Primary [Primary Care Provider] - Test Results: Test results from this visit will be discussed in further detail at your follow- up appointment, if applicable. Please Follow Up With: Milton Ding MD When: in 1-2 weeks to establish PCP relationship Proposed Discharge Date: 11/25/20
--- NOTE | 2020-11-25 16:23 | DS.PCM_ITS ---
Discharge Date and Diagnosis - Problem List Patient Problems: Active and Suspected Problems Acute alcohol withdrawal (Acute) Date of Admission: 11/22/20 Date of Discharge: 11/25/20 - Primary Discharge Diagnosis Acute Problems: Active Problems Acute alcohol withdrawal (Acute) - Secondary Discharge Diagnosis Chronic Problems: Chronic Problems Alcohol abuse (Chronic) Bulla of lung (Chronic) GERD (gastroesophageal reflux disease) (Chronic) Alcoholism (Chronic) Hospital Course and Treatment Operations: None Procedures: None Summary of Care Provided: The patient is a 44 year old M with a past medical history of chronic alcohol abuse was admitted through the ED on 11/22/2020 for medical stabilization for alcohol use. He drank about 6 tall boys daily and had been trying to taper off by himself but with no success. His last drink was the day before admission. He denied any shakiness, feeling hot or cold, nausea vomiting or diarrhea. He was found to have mild hypokalemia with potassium of 3.4 but labs were otherwise normal. He was admitted to be managed for acute alcohol withdrawal and started on phenobarbital protocol. CIWA score was monitored. Patient remained stable and was discharged home on 11/25/2020 after completing a 3-day detox process. He is follow-up with his primary care doctor and also to follow-up with [facility] rehab facility on outpatient basis. Patient seen and examined prior to discharge. He had no complaints. Patient kept muttering to himself was done on since admission but did answer questions. Review of systems otherwise negative. Vitals reviewed. Home medication reviewed and reconciled. O/E: Vital Signs Temp Pulse Resp BP Pulse Ox 97.8 F 94 16 114/65 97 11/25/20 09:01 11/25/20 09:01 11/25/20 09:01 11/25/20 09:01 11/25/20 09:01 [] General: Alert, Oriented x3, anxious HEENT: Atraumatic, PERRLA, EOMI, Normocephalic Oral: Dry Mucosa Neck: Supple, No JVD, Negative Carotid Bruits Lungs: Clear to auscultation, Normal air movement Cardiovascular: Regular rate, Regular Rhythm, Normal S1, Normal S2, No murmurs Abdomen: Bowel Sounds Present, Soft, Non Tender, Non-Distended, No Hepato- splenomegaly Extremities: No clubbing, No cyanosis, No edema, Capillary Refill Less than 3 Seconds Skin: No rashes, No breakdown Musculoskeletal: No Tenderness to Palpation of Joints or Extremities Lymphatic: No Cervical, Supraclavicular, or Inguinal Adenopathy Neurological: Cranial nerves II-XII grossly intact, Neuro grossly intact, Motor Exam 5/5 strength throughout Psych/Mental Status: Anxious, - - irritable Plan is for dc home today Patient Problems: Active and Suspected Problems Acute alcohol withdrawal (Acute) - Physical Exam Vitals/I&O's: Vital Signs Temp Pulse Resp BP Pulse Ox 97.8 F 94 16 114/65 97 11/25/20 09:01 11/25/20 09:01 11/25/20 09:01 11/25/20 09:01 11/25/20 09:01 Oxygen Delivery Method Room Air Weight: 125 lb 10.616 oz Body Mass Index (BMI) 20.2 Intake and Output for Last 24 Hours 11/23/20 11/24/20 11/25/20 23:59 23:59 23:59 Intake Total 960 / 1160 400 / 500 300 / 300 Balance 960 / 1160 400 / 500 300 / 300 Discharge Diet: Low fat/ Low Cholesterol Discharge Activity: Return to Normal Activity Weight Bearing Status: Weight bearing as tolerated Home Medications: Medications to take at Discharge NK 10/23/20 Primary Care Physician: Care Physician,No Primary [Primary Care Provider] - Please Follow Up With: Milton Ding MD When: in 1-2 weeks to establish PCP relationship Patient Instructions: ED Alcohol Abuse Disposition: Home Minutes spent on discharge:: 40 Patient Condition:: Stable Medical Necessity - Tobacco Use Smoking Status: Never smoker Tobacco Use: Non-smoker Meaningful Use Info Meaningful Use Diagnoses (Choose all that apply): None applicable Inpatient E&M: 43350 Disch Hosp
== END 2020-11-25 12:10 | disposition home or self-care (01) | DRG 775 ==
LOC: ED 11:41 → MS3 11:48
PROVIDERS: Admitting Provider Internal Medicine; Emergency Provider Emergency Medicine; Visit Provider Student in an Organized Health Care Education/Training Program
DX: F10.239 Alcohol dependence with withdrawal, unspecified (principal); F15.10 Other stimulant abuse, uncomplicated; E87.6 Hypokalemia; J43.9 Emphysema, unspecified; K21.9 Gastro-esophageal reflux disease without esophagitis; Z59.0 Homelessness
CPT/HCPCS: 36415; 80053; 80307; 82077; 83735; 85025; 97802; 99284

== ENCOUNTER 2020-12-05 21:36 | Emergency (ER) | payer MEDICAID, SELFPAY ==
[2020-11-22 12:12] VITALS: BMI 20.2
[2020-12-05 21:37] VITALS: BP 125/96; PULSE 107; RESP 15; TEMP 36.4; O2SAT 97; BMI 20.5
--- NOTE | 2020-12-05 23:31 | ED.VISSUMM ---
- ER Visit Summary Date of Service: 12/05/20 Chief Complaint: Resting detox for alcoholism. History of Present Illness: The patient is a 45 M 3 of alcoholism. He was detoxed 3 weeks ago. He has been through detox other times before. Patient states that he has been drinking heavily again over the last week. He prefers hard alcohol. He also does use marijuana. He denies any complaints. He denies any nausea, vomiting or diarrhea. He has used alcohol in the last several hours. He denies any melena. Physical Examination: Well-appearing middle-aged male. No acute distress. Vital signs stable afebrile. HEENT exam unremarkable. Neck nontender. Lungs clear to auscultation bilaterally. Heart regular rhythm no murmur. Rate about 105. Abdomen soft nontender normal bowel sounds no peritoneal signs. Patient moving all 4 extremities. Nontender no deformity. No edema. Neurologically is awake alert with no focal motor deficits. Test Results: None. Patient had recent labs. Emergency Department Course and Treatment: Middle-aged male requesting detox. Last detox was about 3 weeks ago. And several months before that. Treatment Plan: I spoke to the hospitalist he will admit patient for detox. Disposition: Admission Impression: Requesting detox History of alcoholism This note was generated with [id number] dictation software. It may contain incorrect words, spelling, and punctuation that were not noted in review of the chart prior to signing ED Disposition - Plan for ED Patient: Referrals: Care Physician,No Primary [Primary Care Provider] -
--- NOTE | 2020-12-05 23:38 | HP.PCM_ITS ---
Problem List (1) Desire for detoxification Status: Acute (2) Alcohol abuse Status: Chronic (3) Acute alcohol withdrawal Status: Inactive (4) Methamphetamine abuse Status: Chronic (5) Bulla of lung Status: Chronic (6) GERD (gastroesophageal reflux disease) Status: Chronic Qualifiers: Esophagitis presence: esophagitis presence not specified Qualified Code(s): K21.9 - Gastro-esophageal reflux disease without esophagitis (7) Alcoholism Status: Chronic History of Present Illness Date of Admission: 12/05/20 Chief Complaint: Desire for detoxification The patient is a 45 year old M with a significant history of polysubstance abuse (alcohol; marijuana; and methamphetamine) who presents emergency department with desire for alcohol detoxification. Patient drinks about 3-4 bottles of 24 ounces of beer 3 to 4 days/week. He started drinking at about age 15. He tried to cut down. He was at our ([facility]) detoxification program about 3 weeks ago. Past Medical History Past Medical History (Chronic Problems): Chronic Problems Alcohol abuse (Chronic) Methamphetamine abuse (Chronic) Bulla of lung (Chronic) GERD (gastroesophageal reflux disease) (Chronic) Alcoholism (Chronic) Allergies No Known Allergies Allergy (Verified 12/05/20 21:40) Home Medications: Ambulatory Orders Medication Instructions Recorded NK 10/23/20 Surgical History: - - Open reduction and internal fixation of left ankle fracture. Psychiatric History: No pertinent psych hx Smoking Status: Never smoker Drugs: Marijuana - *Family History Maternal History Items: Pulmonary Disease, - Paternal History Items: Heart Disease, Hypertension Review of Systems Constitutional: Denies: Chills, Fever, Weight Change HEENT: Denies: Head Aches, Sinus Congestion, Sinus Drainage Cardiovascular: Denies: Chest Pain, Palpitations Respiratory: Denies: Cough, Shortness of breath at rest, Sputum production Gastrointestinal: Denies: Abdominal Pain, Nausea, Vomiting Genitourinary: Denies: Dysuria Musculoskeletal: Denies: Joint Pain, Joint Tenderness Skin: Denies: Rash, Wounds Neurological: Denies: Numbness, Tingling, Focal weakness Psychiatric: Denies: Anxiety, Depression, Homicidal Ideations, Suicidal Ideations Hematologic/ Lymphatic: Denies: Easy Bruising, Easy Bleeding VTE Information - Inpt Only VTE Present on Admission: No VTE Mechan Device Prophylaxis: None VTE Pharm Prophylaxis ordered?: No Reason prophylaxis not ordered:: Treatment Not Indicated - Low risk encourage ambulate Patient Problems: Active and Suspected Problems Desire for detoxification (Acute) - Physical Exam Vitals/I&O's: Vital Signs Temp Pulse Resp BP Pulse Ox 97.5 F L 107 H 15 125/96 H 97 12/05/20 21:37 12/05/20 21:37 12/05/20 21:37 12/05/20 21:37 12/05/20 21:37 Oxygen Delivery Method Room Air Weight: 59.5 kg Body Mass Index (BMI) 20.5 General: Alert, Oriented x3, Cooperative HEENT: Atraumatic, PERRLA, EOMI, Normocephalic Neck: Supple, No JVD, Negative Carotid Bruits Lungs: Clear to auscultation, Normal air movement Cardiovascular: Regular rate, No murmurs Abdomen: Bowel Sounds Present, Soft, Non Tender Extremities: No edema, Capillary Refill Less than 3 Seconds Skin: No rashes, No breakdown Musculoskeletal: No Tenderness to Palpation of Joints or Extremities Neurological: Cranial nerves II-XII grossly intact Psych/Mental Status: Normal Affect, Appropriate Assessment/Plan All Active Problems Desire for detoxification (Acute) The patient is a 45 year old M with a significant history of polysubstance abuse (alcohol; marijuana; and methamphetamine) who presents emergency department on detoxification from alcohol Alcohol dependence and desire for detoxification Patient be started on phenobarbital and other adjunctive medications: Gabapentin as needed; dicyclomine as needed; Vistaril as needed; methocarbamol as needed; clonidine as needed; Imodium as needed; trazodone as needed; Zofran as needed; scheduled thiamine; and schedule folic acid.. Monitor CIWA score Methamphetamine and marijuana use Counseled DVT prophylaxis Low risk Encourage to ambulate Inpatient E&M: 20817 Init Hosp L3
--- NOTE | 2020-12-06 00:38 | ED.RN ---
PT WAS PROVIDED A SANDWICH AND BEVERAGE WHILE WAITING FOR ADMISSION. WHEN THIS RN RETURNED TO HIS ROOM THE PT AND HIS BELONGINGS WERE GONE. LOOKED FOR PT IN ED AND HE WAS NOT LOCATED. SECURITY AWARE. PT RESUMED TO HAVE ELOPED.
== END 2020-12-06 00:38 | disposition home or self-care (01) ==
LOC: ED 22:34 → MS3 12-06 00:10
PROVIDERS: Emergency Provider Emergency Medicine; Visit Provider Hospitalist
DX: F10.20 Alcohol dependence, uncomplicated (principal); F15.10 Other stimulant abuse, uncomplicated; J43.9 Emphysema, unspecified; J45.909 Unspecified asthma, uncomplicated; K21.9 Gastro-esophageal reflux disease without esophagitis
CPT/HCPCS: 99281

== ENCOUNTER 2021-02-07 11:45 | Emergency (ER) | payer MEDICAID, SELFPAY ==
[2021-02-07 11:47] VITALS: BP 121/80; PULSE 85; RESP 17; TEMP 36.1; O2SAT 97; BMI 20.8
--- NOTE | 2021-02-07 11:58 | ED.RN ---
Patient LWBS at 1158.
== END 2021-02-07 12:14 | disposition left against medical advice (07) ==
LOC: ED 12:13
DX: Z53.21 Procedure and treatment not carried out due to patient leaving prior to being seen by health care provider (principal)

== ENCOUNTER 2021-02-07 19:21 | Inpatient (IN) | payer MEDICAID, SELFPAY ==
[2021-02-07] VITALS (7 sets, daily range): BP systolic 119–136; BP diastolic 50–88; PULSE 61–71; RESP 14–19; TEMP 36.4–36.8; O2SAT 98–100; BMI 20.8; BMI 19.3; BMI 20.2
--- NOTE | 2021-02-07 19:33 | EKG12_ITS ---
Test Reason : DYSRHYTHMIA Blood Pressure : / mmHG Vent. Rate : 068 BPM Atrial Rate : 068 BPM P-R Int : 120 ms QRS Dur : 096 ms QT Int : 406 ms P-R-T Axes : 073 057 053 degrees QTc Int : 431 ms Normal sinus rhythm Normal ECG Confirmed by NANCY WEI, DIETER ([id number]), script editor OMERO ROBLES ([id number]) on 02/08/2021 1:05:57 PM Referred By: LEE Confirmed By:DIETER CRUZ MD
--- NOTE | 2021-02-07 19:34 | EDS_ITS ---
HPI History of Present Illness Chief Complaint: Depression Narrative Narrative: 45-year-old male presents with concern for alcohol detoxification. States that he is using alcohol 5 days a week. States he was drinking daily up to 6 or 7 beers. States he is decreased to approximately 5 days a week where he drinks 3-4 beers. States he is also using methamphetamine. States he is having anxiety and paranoia which is associated with his methamphetamine use. PFSH PFS Medical History (Updated 02/07/21 @ 21:[address] Seymour Sexton, ) Alcohol abuse Anxiety Asthma Depression Hypertension Non-smoker Stroke/cerebrovascular accident Home Medications NK 10/23/20 [History Last Taken Unknown] Allergy/AdvReac Type Severity Reaction Status Date / Time No Known Allergies Allergy Verified 02/07/21 19:22 no significant family history no surgical history Social History (Updated 02/07/21 @ 19:[address] Seymour Sexton, DO) Smoking Status: Never smoker alcohol intake: current substance use type: methamphetamine ROS ROS ED Constitutional Constitutional ED: Denies chills, fever(s) or sweats Eyes Eyes: Denies blurry vision, change in vision or diplopia ENT ENT ED: Denies rhinorrhea or sore throat Cardiovascular Cardiovascular: Denies chest pain, orthopnea, palpitations or racing heartbeat Respiratory/Chest Respiratory/Chest: Denies cough, dyspnea, dyspnea on exertion, orthopnea or sputum Gastrointestinal Gastrointestinal: Denies abdominal pain, constipation, diarrhea, melena, nausea or vomiting Genitourinary Genitourinary ED: Denies dysuria, hematuria or urinary frequency Musculoskeletal Musculoskeletal: Denies arthralgias, myalgias or neck pain Integumentary Denies rash Neurologic Neurologic: Denies headache(s), paresthesias or weakness Psychiatric Psychiatric: Reports anxiety; Denies depression Hematologic/Lymphatic Hematologic/Lymphatic: Denies easy bleeding or easy bruising Allergic/Immunologic Allergic/Immunologic ED: Denies mouth swelling or tongue swelling EXAM Physical Exam Const Vital Signs: 02/07/21 19:22 02/07/21 19:39 02/07/21 19:45 Temperature 98.0 F 97.5 F L 98.3 F Temperature Source Temporal Temporal Oral Pulse Rate 71 70 68 Respiratory Rate 15 19 H 18 Blood Pressure 136/50 H 121/73 H 123/80 H Blood Pressure Mean 78 89 94 Blood Pressure Source Monitor Monitor Blood Pressure Position Sitting Semi-Fowlers Blood Pressure Location Left Arm Right Arm Pulse Ox 99 98 99 Oxygen Delivery Method Room Air Room Air Room Air Positive well nourished and well developed General Appearance ED: well developed HEENT Reports TM's clear and moist mucous membranes normocephalic and atraumatic Tympanic Membrane ED: Yes TM's clear Eyes PERRL and EOMs intact bilaterally Neck no lymphadenopathy, supple and no JVD Chest Wall inspection of chest normal Resp normal respiratory effort and clear to auscultation bilaterally Cardio regular rate, S1 normal heart sound, S2 normal heart sound and no murmurs Peripheral Pulses: pulses 2+ throughout GI soft to palpation, non-tender and non-distended Back/Spine no CVA tenderness and no thoracic nor lumbar tenderness Extremity normal to inspection General Extremety ED: Negative for edema or tenderness General Extremity: Negative for edema Neuro oriented x3, CN's II-XII intact bilaterally and no sensory deficits noted Sensorium / Orientation: alert Motor Exam: strength 5/5 throughout Psych Mood & Affect: anxious Skin no rashes or lesions noted MDM MDM MDM Narrative Medical decision making narrative: Patient appears well nontoxic. Vital signs within normal limits. Patient given Ativan and fluid bolus. Lab work within normal limits. Alcohol of 38. Patient will be admitted for detoxification. Stable at time of admission. Lab Data Attestation: I reviewed the patient's lab results. Labs: Laboratory Results - last 24 hr 02/07/21 02/07/21 02/07/21 20:20 20:30 20:30 WBC 5.5 RBC 4.30 L Hgb 13.7 Hct 40.2 MCV 93.5 MCH 31.9 MCHC 34.1 RDW Std Deviation 42.5 RDW Coeff of Bridger 12.4 Plt Count 293 MPV 8.8 Immature Gran % (Auto) 0.200 Neut % (Auto) 64.6 Lymph % (Auto) 25.3 [place] % (Auto) 4.2 Eos % (Auto) 5.0 Baso % (Auto) 0.7 Absolute Neuts (auto) 3.5 Absolute Lymphs (auto) 1.38 Nucleated RBC % 0 Sodium 138 Potassium 4.0 Chloride 102 Carbon Dioxide 29.0 Anion Gap 7 BUN 14 Creatinine 0.76 Estim Creat Clear Calc 94.50 Est GFR (MDRD) Af Amer 141 Est GFR (MDRD) Non-Af 117 BUN/Creatinine Ratio 18.3 Glucose 70 L Calcium 8.5 Total Bilirubin 0.40 AST 56 H ALT 91 H Alkaline Phosphatase 58 Total Protein 7.3 Albumin 3.6 Globulin 3.7 Albumin/Globulin Ratio 1.0 Urine Opiates Screen NEGATIVE Urine Methadone Screen NEGATIVE Ur Barbiturates Screen NEGATIVE Ur Phencyclidine Scrn NEGATIVE Ur Amphetamines Screen POSITIVE H U Methamphetamin-MDMA POSITIVE H U Benzodiazepines Scrn NEGATIVE Urine Cocaine Screen NEGATIVE U Cannabinoids Screen NEGATIVE Ur Drug Screen Comment Ethyl Alcohol 02/07/21 20:30 WBC RBC Hgb Hct MCV MCH MCHC RDW Std Deviation RDW Coeff of Bridger Plt Count MPV Immature Gran % (Auto) Neut % (Auto) Lymph % (Auto) [place] % (Auto) Eos % (Auto) Baso % (Auto) Absolute Neuts (auto) Absolute Lymphs (auto) Nucleated RBC % Sodium Potassium Chloride Carbon Dioxide Anion Gap BUN Creatinine Estim Creat Clear Calc Est GFR (MDRD) Af Amer Est GFR (MDRD) Non-Af BUN/Creatinine Ratio Glucose Calcium Total Bilirubin AST ALT Alkaline Phosphatase Total Protein Albumin Globulin Albumin/Globulin Ratio Urine Opiates Screen Urine Methadone Screen Ur Barbiturates Screen Ur Phencyclidine Scrn Ur Amphetamines Screen U Methamphetamin-MDMA U Benzodiazepines Scrn Urine Cocaine Screen U Cannabinoids Screen Ur Drug Screen Comment Ethyl Alcohol 38.0 Discharge Plan Triage Chief Complaint: Depression ED Provider: Seymour Sexton Dx/Rx/DC Orders Clinical Impression: Alcoholism Prescriptions: No Action NK RF: 0 Primary Care Provider: Care Physician,No Primary Referrals: Care Physician,No Primary [Primary Care Provider] - Disposition Disposition: Acute Care [facility]
[2021-02-07 20:38] LABS: Absolute Lymphocyte Count 1.38 X10^3/uL (0.83-4.51); Absolute Neutrophil Count 3.5 X10^3/uL (2.0-7.7); Basophil# 0.04 X10^3/uL; Basophil% 0.7 % (0-1); Eosinophil# 0.27 X10^3/uL; Hematocrit 40.2 % (40-54); Hemoglobin 13.7 g/dL (13.0-16.5); Lymphocyte # 1.38 X10^3/ul (0.83-4.51); Lymphocyte % 25.3 % (19-41); Mean Corp Hgb Conc 34.1 g/dL (32-36); Mean Corpuscular Hgb 31.9 pg (27.0-32.0); Mean Corpuscular Volume 93.5 fL (80-94); Mean Platelet Vol. 8.8 fl (6.2-12.0); Monocyte# 0.23 X10^3/uL; Monocyte% 4.2 % (0-10); NRBC Flagged by Analyzer 0 % (0-5); Neutrophil # 3.52 X10^3/uL (2.7-7.7); Neutrophil % 64.6 % (47-70); Platelet Count 293 K/mm3 (150-450); RBC Distribution Width CV 12.4 % (11.6-14.6); RBC Distribution Width SD 42.5 fl (35.1-43.9); White Blood Count 5.5 K/mm3 (4.4-11.0)
[2021-02-07] MEDS: LORazepam 2 MG/ML Syringe 0.5 MG IV (20:38)
[2021-02-07 20:51] LABS: Amphetamine Urine VISTA POSITIVE (<1000 ng/mL); Barbiturate Urine VISTA NEGATIVE (< 200 ng/mL); Benzodiazepine Urine VISTA NEGATIVE (< 200 ng/mL); Cocaine Urine VISTA NEGATIVE (< 300 ng/mL); Ecstacy Urine VISTA POSITIVE (< 500 ng/mL); Methadone Urine VISTA NEGATIVE (< 300 ng/mL); PCP Urine VISTA NEGATIVE (< 25 ng/mL); THC Urine VISTA NEGATIVE (< 50 ng/mL); Vista UDS pH Range 6
[2021-02-07 20:55] LABS: AST(SGOT) 56 U/L (15-37); Alanine Aminotransfer ALT/SGPT 91 U/L (16-61); Albumin, Serum 3.6 g/dL (3.2-5.0); Alkaline Phosphatase 58 U/L (45-117); Anion Gap 7 (5-15); BUN 14 mg/dL (7-18); BUN/Creat Ratio 18.3 RATIO (10-20); Calcium,Total 8.5 mg/dL (8.5-10.1); Chloride 102 mmol/L (98-107); Creatinine, Serum 0.76 mg/dL (0.70-1.30); EST Glomerular Filtration Rate 117 mL/min (>60); Est Glom Filt Rate - Afr Amer 141 mL/min (>60); Globulin 3.7 g/dL (2.2-4.2); Glucose 70 mg/dL (74-106); Protein, Total 7.3 g/dL (6.4-8.2); Sodium Level 138 mmol/L (136-145)
--- NOTE | 2021-02-07 21:49 | PCM.HP.STD ---
HPI - General General Date of Admission: 02/07/21 Chief Complaint: Desire for detoxification HPI Narrative MICHAEL KAUR, is a 45 M with a significant history of alcohol abuse; anxiety and depression; hypertension; and asthma who presents for help with detoxification. At the time of examination patient had received Ativan and was lethargic. History was therefore limited. Majority of history was obtained from emergency department doctor and with limited history from patient. Patient reported that he drinks a lot. He drinks beer. He has been drinking for years. He is unable to characterize our many years. When asked whether he stating that he is withdrawing he said that yes without elaborating. Patient did not provide last time that he used alcohol. Emergency room doctor reported last to the patient use methamphetamine was on the same day of presentation. [facility] Medical History (Updated 02/07/21 @ 22:[address] Jerome Lu MD) Alcohol abuse Anxiety Asthma Bulla of lung Depression Hypertension Non-smoker Stroke/cerebrovascular accident Home Medications NK 10/23/20 [History Last Taken Unknown] Allergy/AdvReac Type Severity Reaction Status Date / Time No Known Allergies Allergy Verified 02/07/21 19:22 Family History (Updated 02/07/21 @ 22:[address] Jerome Lu MD) Father Alcoholism Surgical History (Updated 02/07/21 @ 22:[address] Jerome Lu MD) History of ankle surgery Social History Smoking Status: Never smoker alcohol intake: current substance use type: methamphetamine ROS Review of Systems ROS Unobtainable: other Details: Unable to be obtained secondary to patient being lethargic Vital Signs Vital Signs Vital Signs: 02/07/21 19:22 02/07/21 19:39 02/07/21 19:45 Temperature 98.0 F 97.5 F L 98.3 F Temperature Source Temporal Temporal Oral Pulse Rate 71 70 68 Respiratory Rate 15 19 H 18 Blood Pressure 136/50 H 121/73 H 123/80 H Blood Pressure Mean 78 89 94 Blood Pressure Source Monitor Monitor Blood Pressure Position Sitting Semi-Fowlers Blood Pressure Location Left Arm Right Arm Pulse Ox 99 98 99 Oxygen Delivery Method Room Air Room Air Room Air Physical Exam Narrative Lethargic Nontraumatic; normocephalic Lung clear to auscultate Heart sounds S1-S2. No murmur, gallop or rubs. Abdomen bowel sounds present soft, nontender nondistended Extremity without edema cyanosis or clubbing. Lab / Micro Data Result Diagrams: 02/07/21 20:30 02/07/21 20:30 Labs: Laboratory Results - last 24 hr 02/07/21 02/07/21 02/07/21 20:20 20:30 20:30 WBC 5.5 RBC 4.30 L Hgb 13.7 Hct 40.2 MCV 93.5 MCH 31.9 MCHC 34.1 RDW Std Deviation 42.5 RDW Coeff of Bridger 12.4 Plt Count 293 MPV 8.8 Immature Gran % (Auto) 0.200 Neut % (Auto) 64.6 Lymph % (Auto) 25.3 [place] % (Auto) 4.2 Eos % (Auto) 5.0 Baso % (Auto) 0.7 Absolute Neuts (auto) 3.5 Absolute Lymphs (auto) 1.38 Nucleated RBC % 0 Sodium 138 Potassium 4.0 Chloride 102 Carbon Dioxide 29.0 Anion Gap 7 BUN 14 Creatinine 0.76 Estim Creat Clear Calc 94.50 Est GFR (MDRD) Af Amer 141 Est GFR (MDRD) Non-Af 117 BUN/Creatinine Ratio 18.3 Glucose 70 L Calcium 8.5 Total Bilirubin 0.40 AST 56 H ALT 91 H Alkaline Phosphatase 58 Total Protein 7.3 Albumin 3.6 Globulin 3.7 Albumin/Globulin Ratio 1.0 Urine Opiates Screen NEGATIVE Urine Methadone Screen NEGATIVE Ur Barbiturates Screen NEGATIVE Ur Phencyclidine Scrn NEGATIVE Ur Amphetamines Screen POSITIVE H U Methamphetamin-MDMA POSITIVE H U Benzodiazepines Scrn NEGATIVE Urine Cocaine Screen NEGATIVE U Cannabinoids Screen NEGATIVE Ur Drug Screen Comment Ethyl Alcohol 02/07/21 20:30 WBC RBC Hgb Hct MCV MCH MCHC RDW Std Deviation RDW Coeff of Bridger Plt Count MPV Immature Gran % (Auto) Neut % (Auto) Lymph % (Auto) [place] % (Auto) Eos % (Auto) Baso % (Auto) Absolute Neuts (auto) Absolute Lymphs (auto) Nucleated RBC % Sodium Potassium Chloride Carbon Dioxide Anion Gap BUN Creatinine Estim Creat Clear Calc Est GFR (MDRD) Af Amer Est GFR (MDRD) Non-Af BUN/Creatinine Ratio Glucose Calcium Total Bilirubin AST ALT Alkaline Phosphatase Total Protein Albumin Globulin Albumin/Globulin Ratio Urine Opiates Screen Urine Methadone Screen Ur Barbiturates Screen Ur Phencyclidine Scrn Ur Amphetamines Screen U Methamphetamin-MDMA U Benzodiazepines Scrn Urine Cocaine Screen U Cannabinoids Screen Ur Drug Screen Comment Ethyl Alcohol 38.0 Assessment & Plan Assessment/Plan (1) Alcoholism: (2) Methamphetamine abuse: (3) Desire for detoxification: PLAN: MICHAEL KAUR, is a 45 M with a significant history of alcohol abuse; anxiety and depression; hypertension; and asthma who presents for help with detoxification of alcohol. Alcohol dependence and desire for detoxification/methamphetamine abuse Patient be started on phenobarbital and other adjunctive medications: Gabapentin as needed; dicyclomine as needed; Vistaril as needed; methocarbamol as needed; Imodium as needed; trazodone as needed; Zofran as needed; scheduled thiamine; and schedule folic acid. Monitor CIWA score DVT prophylaxis Low risk Encourage to ambulate Visit Charges Inpatient E&M: 86347 Init Hosp L2
[2021-02-08] VITALS (8 sets, daily range): BP systolic 104–118; BP diastolic 73–94; PULSE 59–75; RESP 16–18; TEMP 36.6–36.8; O2SAT 97–100
--- NOTE | 2021-02-08 02:50 | NURSING ---
Pt's only complaint is a mild headache. States he is tired and does not want the phenobarb. Bed exit on as precaution.
[2021-02-08] MEDS: Phenobarbital 32.4 MG Tablet 64.8 MG PO ×5 (05:18→22:40)
--- NOTE | 2021-02-08 05:24 | NURSING ---
Nanette MA was just in pt's room and when she left he set off bed exit. He is unsteady at this time. Continue to maintain bed exit.
[2021-02-08] MEDS: Folic Acid 1 MG Tablet PO (08:06)
[2021-02-08] MEDS: Thiamine Hydrochloride 100 MG Tablet PO (08:06)
--- NOTE | 2021-02-08 10:23 | ADDICTION ---
This scenario writer met with PT to conduct ASAM, MSE, AUDIT assessments and to plan for d/c. PT A+Ox4 and participated. Assessments completed, faxed to [facility] and placed in PT's chart. PT expressed interest in psychiatric services at [facility]. This scenario writer facilitated call to schedule, [facility] informed PT that Dr. Aragon is out until March and that he is not able to schedule with another psychiatrist. They offered crisis services, PT declined as he is not currently in crisis. This scenario writer discussed [facility] with PT and facilitated call with [facility]. PT declined [facility] services based on their location. This scenario writer offered other resources, PT accepted resources but refused to complete/sign d/c plan.
--- NOTE | 2021-02-08 12:18 | PCM.PN.HOSP ---
Subjective Subjective: Patient was seen and examined. He complains of feeling restless. Denied any chest pain or hallucinations. Objective Data Objective Data Vital Signs: Vital Signs Temp Pulse Resp BP Pulse Ox 98.2 F 59 L 18 104/73 98 02/08/21 10:00 02/08/21 10:00 02/08/21 10:00 02/08/21 10:00 02/08/21 10:00 Oxygen Delivery Method Room Air Weight: 56.9 kg Body Mass Index (BMI) 20.2 Lab / Micro Data Result Diagrams: 02/07/21 20:30 02/07/21 20:30 Labs: Laboratory Results - last 24 hr 02/07/21 02/07/21 02/07/21 20:20 20:30 20:30 WBC 5.5 RBC 4.30 L Hgb 13.7 Hct 40.2 MCV 93.5 MCH 31.9 MCHC 34.1 RDW Std Deviation 42.5 RDW Coeff of Bridger 12.4 Plt Count 293 MPV 8.8 Immature Gran % (Auto) 0.200 Neut % (Auto) 64.6 Lymph % (Auto) 25.3 [place] % (Auto) 4.2 Eos % (Auto) 5.0 Baso % (Auto) 0.7 Absolute Neuts (auto) 3.5 Absolute Lymphs (auto) 1.38 Nucleated RBC % 0 Sodium 138 Potassium 4.0 Chloride 102 Carbon Dioxide 29.0 Anion Gap 7 BUN 14 Creatinine 0.76 Estim Creat Clear Calc 94.50 Est GFR (MDRD) Af Amer 141 Est GFR (MDRD) Non-Af 117 BUN/Creatinine Ratio 18.3 Glucose 70 L Calcium 8.5 Total Bilirubin 0.40 AST 56 H ALT 91 H Alkaline Phosphatase 58 Total Protein 7.3 Albumin 3.6 Globulin 3.7 Albumin/Globulin Ratio 1.0 Urine Opiates Screen NEGATIVE Urine Methadone Screen NEGATIVE Ur Barbiturates Screen NEGATIVE Ur Phencyclidine Scrn NEGATIVE Ur Amphetamines Screen POSITIVE H U Methamphetamin-MDMA POSITIVE H U Benzodiazepines Scrn NEGATIVE Urine Cocaine Screen NEGATIVE U Cannabinoids Screen NEGATIVE Ur Drug Screen Comment Ethyl Alcohol 02/07/21 20:30 WBC RBC Hgb Hct MCV MCH MCHC RDW Std Deviation RDW Coeff of Bridger Plt Count MPV Immature Gran % (Auto) Neut % (Auto) Lymph % (Auto) [place] % (Auto) Eos % (Auto) Baso % (Auto) Absolute Neuts (auto) Absolute Lymphs (auto) Nucleated RBC % Sodium Potassium Chloride Carbon Dioxide Anion Gap BUN Creatinine Estim Creat Clear Calc Est GFR (MDRD) Af Amer Est GFR (MDRD) Non-Af BUN/Creatinine Ratio Glucose Calcium Total Bilirubin AST ALT Alkaline Phosphatase Total Protein Albumin Globulin Albumin/Globulin Ratio Urine Opiates Screen Urine Methadone Screen Ur Barbiturates Screen Ur Phencyclidine Scrn Ur Amphetamines Screen U Methamphetamin-MDMA U Benzodiazepines Scrn Urine Cocaine Screen U Cannabinoids Screen Ur Drug Screen Comment Ethyl Alcohol 38.0 Physical Exam Narrative General: Alert, Oriented x3, Cooperative, No apparent distress, Well developed HEENT: Atraumatic Oral: Moist Mucosa Neck: Supple Lungs: Clear to auscultation Cardiovascular: HS I+II, regular, no murmurs Abdomen: Bowel Sounds Present, Soft, Non Tender Extremities: No edema Skin: No rashes, No breakdown Neurological: Grossly intact Psych/Mental Status: Appropriate Assessment & Plan Assessment/Plan (1) Alcoholism: (2) Methamphetamine abuse: (3) Desire for detoxification: (4) Alcohol withdrawal delirium, acute, mixed level of activity: PLAN: Acute alcohol withdrawal, improving, continue on phenobarb taper started Continue on folic acid, multivitamin, thiamine Continue on Acute withdrawal protocol Visit Charges Inpatient E&M: 98795 Subs Hosp L2
[2021-02-08] MEDS: hydrOXYzine PAM 25 MG Capsule 50 MG PO (14:49)
--- NOTE | 2021-02-08 15:25 | CHAPLAIN ---
Type of Pastoral Visit _x__ Initial Visit ___ Follow-up Visit ___ On-call Visit ___ General Patient Visit ___ Spiritual Assessment ___ Family Conference ___ Bereavement ___ Rapid Response ___ Code Blue ___ Other (describe below) Pastoral Care Referral From _x__ Patient ___ Family ___ Nurse ___ Physician ___ Auto Hauler ___ Sweet Goods Machine Operator ___ Other (describe below) Sacrament/Intervention _x__ Active listening ___ Anointing ___ Sabianism ___ Bereavement ___ Communion _x__ Isamar exploration ___ ___ Life review _x__ Prayer ___ Reconciliation ___ Sacrament of Sick _x__ Supportive presence ___ Wedding ___ Other (describe below) Pastoral Comments patient is remembered by and also remembers this photographer still from a previous admission; pt is tearful as he talks; pt says he is having a hard time putting his thoughts into words; pt speaks of a spiritual encounter with God recently and that now he fears he has failed God; pt also admits to hearing voices; pt seeks spiritual vocational guidance counselor and prayer; prayer and words of assurance given to which pt responds positively; pt is concerned about where he can go for help; pt does not want to remain in this area due to many people knowing him and the temptations or people that bother him;
[2021-02-09 02:45] VITALS: BP 119/79; PULSE 77; RESP 16; TEMP 36.4; O2SAT 100
[2021-02-09] MEDS: Phenobarbital 32.4 MG Tablet 64.8 MG PO ×2 (06:30→10:59)
[2021-02-09 07:30] VITALS: BP 114/70; PULSE 77; RESP 18; TEMP 36.4; O2SAT 99
[2021-02-09] MEDS: Thiamine Hydrochloride 100 MG Tablet PO (07:37)
[2021-02-09] MEDS: Folic Acid 1 MG Tablet PO (07:37)
[2021-02-09 10:56] VITALS: BP 117/73; PULSE 88; RESP 16; TEMP 36.7; O2SAT 99
--- NOTE | 2021-02-09 11:04 | PCM.DC ---
Discharge Instructions Diet Discharge Diet: No restrictions Activity Discharge Activity: Return to Normal Activity Follow Up Care Test Results: Test results from this visit will be discussed in further detail at your follow-up appointment, if applicable. Discharge Plan Admission Admit Date/Time: 02/07/21 21:49 Primary Reason for Your Visit: Acute alcohol withdrawal Attending Provider: Brittny Cope Primary Care Provider: Cassie Physician,No Primary Instructions Additional Instructions / Restrictions: You are strongly advised to avoid alcohol or use of any illicit drug. Avoid smoking. Follow-up with your outpatient rehab program as scheduled. Discharge Orders/Prescriptions Prescriptions: No Action NK RF: 0 Referrals / Follow Up: Care Physician,No Primary [Primary Care Provider] - Disposition Disposition (needs filled in before D/C Order can be placed): Home, self care
--- NOTE | 2021-02-09 11:04 | PCM.DC.SUM ---
Providers Date of Admission: 02/07/21 Primary Care Physician: Gayathri Primary Care Phys Reason For Visit: ALCOHOL DETOXIFICATION Diagnosis Discharge Diagnosis (1) Alcoholism: Status: Chronic Code(s): F10.20 - Alcohol dependence, uncomplicated (2) Methamphetamine abuse: Status: Chronic Code(s): F15.10 - Other stimulant abuse, uncomplicated (3) Desire for detoxification: Status: Acute (4) Alcohol withdrawal delirium, acute, mixed level of activity: Status: Acute Code(s): F10.231 - Alcohol dependence with withdrawal delirium Medications at Discharge Home Medications NK 10/23/20 ABG / Lab / Microbiology Data Result Diagrams: 02/07/21 20:30 02/07/21 20:30 D/C Instructions Discharge Diet: No restrictions Discharge Activity: Return to Normal Activity Discharge Plan Admission Admit Date/Time: 02/07/21 21:49 Primary Reason for Your Visit: Acute alcohol withdrawal Attending Provider: Brittny Cope Primary Care Provider: Care Physician,No Primary Instructions Additional Instructions / Restrictions: You are strongly advised to avoid alcohol or use of any illicit drug. Avoid smoking. Follow-up with your outpatient rehab program as scheduled. Discharge Orders/Prescriptions Prescriptions: No Action NK RF: 0 Referrals / Follow Up: Care Physician,No Primary [Primary Care Provider] - Disposition Disposition (needs filled in before D/C Order can be placed): Home, self care Visit Charges Inpatient E&M: 26050 Disch Hosp
[2021-02-09 13:24] VITALS: BP 104/81; PULSE 85; RESP 16; TEMP 36.4; O2SAT 100
--- NOTE | 2021-02-09 17:38 | PCM.DC.SUM ---
Providers Date of Admission: 02/07/21 Date of Discharge: 02/09/21 Primary Care Physician: Gayathri Primary Care Phys Reason For Visit: ALCOHOL DETOXIFICATION Diagnosis Discharge Diagnosis (1) Alcoholism: Status: Chronic Code(s): F10.20 - Alcohol dependence, uncomplicated (2) Methamphetamine abuse: Status: Chronic Code(s): F15.10 - Other stimulant abuse, uncomplicated (3) Desire for detoxification: Status: Acute (4) Alcohol withdrawal delirium, acute, mixed level of activity: Status: Acute Code(s): F10.231 - Alcohol dependence with withdrawal delirium Medications at Discharge Home Medications NK 10/23/20 Hospital Course Operations None Procedures None Summary of Care Provided Minutes Spent on Discharge: 25 Hospital Course: 45-year-old male with past medical history of chronic alcohol use disorder, anxiety/depression, hypertension who comes in requesting for medical stabilization for alcohol withdrawal. Patient admitted to drinking lots of beer and wanted to quit. He was admitted to the [facility] floor and managed on the phenobarbital withdrawal protocol. 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 Patient was not interested in having a discharge plan. His CIWA scores over the hospital stay with 2-3. He was discharged in a stable condition. Physical Exam Narrative General: Alert, Oriented x3, Cooperative, No apparent distress, Well developed HEENT: Atraumatic Oral: Moist Mucosa Neck: Supple Lungs: Clear to auscultation Cardiovascular: HS I+II, regular, no murmurs Abdomen: Bowel Sounds Present, Soft, Non Tender Extremities: No edema Skin: No rashes, No breakdown Neurological: Grossly intact Psych/Mental Status: Appropriate ABG / Lab / Microbiology Data Result Diagrams: 02/07/21 20:30 02/07/21 20:30 D/C Instructions Discharge Diet: No restrictions Discharge Activity: Return to Normal Activity Meaningful Use Info Meaningful Use Diagnoses (Choose all that apply): None applicable Discharge Plan Admission Admit Date/Time: 02/07/21 21:49 Primary Reason for Your Visit: Acute alcohol withdrawal Attending Provider: Brittny Cope Primary Care Provider: Cassie Physician,No Primary Instructions Additional Instructions / Restrictions: You are strongly advised to avoid alcohol or use of any illicit drug. Avoid smoking. Follow-up with your outpatient rehab program as scheduled. Discharge Orders/Prescriptions Prescriptions: No Action NK RF: 0 Referrals / Follow Up: Care Physician,No Primary [Primary Care Provider] - Disposition Disposition (needs filled in before D/C Order can be placed): Home, self care Visit Charges Inpatient E&M: 80379 Disch Hosp
== END 2021-02-09 13:51 | disposition home or self-care (01) | DRG 775 ==
LOC: ED 21:42 → MS3 22:03
PROVIDERS: Admitting Provider Hospitalist; Emergency Provider Emergency Medicine; Visit Provider Internal Medicine
DX: F10.231 Alcohol dependence with withdrawal delirium (principal); F15.10 Other stimulant abuse, uncomplicated; Y90.1 Blood alcohol level of 20-39 mg/100 ml
CPT/HCPCS: 80053; 80307; 82077; 85025; 93005; 99285; A4216

== ENCOUNTER 2021-02-20 02:13 | Emergency (ER) | payer MEDICAID, SELFPAY ==
[2021-02-07 22:59] VITALS: BMI 20.2
[2021-02-20 02:14] VITALS: BP 128/71; PULSE 89; RESP 16; TEMP 36.5; O2SAT 96; BMI 20.2
--- NOTE | 2021-02-20 03:07 | ED.VIS.GI ---
HPI HPI - GI History of Present Illness Chief Complaint: Abd Pain Narrative Narrative: Patient reports that he has a right inguinal hernia that has been present for the past 2 years. Is gradually increasing in size. He reports that it is not bothering him at this time. He denies any abdominal pain. No nausea, vomiting, or diarrhea. His last bowel movements today. No matter medic easier. No dysuria or frequency. PFSH PFSH Medical History Alcohol abuse Anxiety Asthma Bulla of lung Depression Hypertension Non-smoker Stroke/cerebrovascular accident Home Medications NK 10/23/20 [History Last Taken Unknown] Allergy/AdvReac Type Severity Reaction Status Date / Time No Known Allergies Allergy Verified 02/20/21 02:17 Family History Father Alcoholism Surgical History History of ankle surgery Social History Smoking Status: Never smoker alcohol intake: current substance use type: methamphetamine ROS ROS ED Constitutional Constitutional ED: Denies chills, fever(s) or sweats Eyes Eyes: Denies change in vision ENT ENT ED: Denies sore throat Cardiovascular Cardiovascular: Denies chest pain Respiratory/Chest Respiratory/Chest: Denies cough, dyspnea or dyspnea on exertion Gastrointestinal Gastrointestinal: Denies abdominal pain, diarrhea, melena, nausea or vomiting Genitourinary Genitourinary ED: Denies dysuria or urinary frequency Musculoskeletal Musculoskeletal: Denies myalgias Integumentary Denies rash Neurologic Neurologic: Denies headache(s), paresthesias or weakness EXAM Physical Exam Const Vital Signs: 02/20/21 02:14 Temperature 97.7 F L Temperature Source Oral Pulse Rate 89 Respiratory Rate 16 Blood Pressure 128/71 H Blood Pressure Mean 90 Pulse Ox 96 Oxygen Delivery Method Room Air Positive well nourished and well developed General Appearance ED: well developed HEENT Reports normocephalic and head/scalp atraumatic Eyes PERRL Neck no lymphadenopathy, supple and no JVD General: Negative for tenderness Resp normal respiratory effort and clear to auscultation bilaterally Cardio regular rate, regular rhythm and no murmurs GI normal to inspection, nondistended, normoactive bowel sounds, non-tender and non-distended GI Narrative: Patient does have a small inguinal hernia bilaterally. However, there are no herniated contents at this time. There is no tenderness to palpation. No guarding, rebound, or peritoneal signs. Auscultation: normoactive bowel sounds Palpation: soft Back/Spine Back/Spine Narrative: Nontender. Extremity General Extremety ED: Negative for edema or tenderness General Extremity: Negative for edema Neuro oriented x3, CN's II-XII intact bilaterally and no sensory deficits noted Sensorium / Orientation: alert Motor Exam: strength 5/5 throughout Psych mental status grossly normal Skin no rashes or lesions noted MDM [facility] Treatment and Re-Evaluation Comments:: Emergency department course: Patient was reassured. At this time there is no need for further treatment or evaluation of this. Treatment plan: Patient will be discharged instructions to follow-up with Dr. Jose in 1 to 2 weeks for repeat exam. I did discuss him the different stages of a hernia. Is instructed to return if he is unable to reduce the hernia himself. Disposition: To home in improved and stable condition. Discharge Plan Triage Chief Complaint: Abd Pain ED Provider: Wolfgang Ponce Dx/Rx/DC Orders Clinical Impression: Inguinal hernia bilateral, non-recurrent Instructions: ED Hernia (Adult) Prescriptions: No Action NK RF: 0 Primary Care Provider: Care Physician,No Primary Referrals: Linda Jose MD [STAFF PHYSICIAN] - 1-2 Weeks Care Physician,No Primary [Primary Care Provider] - Disposition Discharge Date/Time: 02/20/21 02:41
== END 2021-02-20 02:41 | disposition home or self-care (01) ==
LOC: ED 02:38
PROVIDERS: Emergency Provider Emergency Medicine
DX: K40.20 Bilateral inguinal hernia, without obstruction or gangrene, not specified as recurrent (principal); I10 Essential (primary) hypertension; J45.909 Unspecified asthma, uncomplicated
CPT/HCPCS: 99282

== ENCOUNTER 2021-05-22 20:09 | Emergency (ER) | payer MEDICAID, SELFPAY ==
[2021-05-22 20:10] VITALS: BP 133/82; PULSE 102; RESP 15; TEMP 36.4; O2SAT 97; BMI 20.5
--- NOTE | 2021-05-22 20:27 | ED.RN ---
patient left because he does not want to have to take his underwear off for the floor.
--- NOTE | 2021-05-22 20:47 | EX.ED.SAOD ---
HPI History of Present Illness Chief Complaint: Substance Abuse Informant: patient Narrative Narrative: 45-year-old male history of alcoholism presents the emergency department requesting detox from alcohol and methamphetamine use. As I enter the room the patient immediately launched into a high pressured speech regarding him not feeling comfortable by the nurse requesting that he get into a gown. I informed him that this is part of the program which he has been admitted to before so it should not become as a surprise that he needs to be into a gown. PFSH PFSH Medical History Alcohol abuse Anxiety Asthma Bulla of lung Depression Hypertension Non-smoker Stroke/cerebrovascular accident Home Medications NK 10/23/20 [History Last Taken Unknown] Allergy/AdvReac Type Severity Reaction Status Date / Time No Known Allergies Allergy Verified 05/22/21 20:09 Family History Father Alcoholism Surgical History History of ankle surgery Social History Smoking Status: Never smoker alcohol intake: current substance use type: methamphetamine ROS ROS ED Review of Systems ROS Unobtainable: other Details: Elopement EXAM Physical Exam Const Vital Signs: 05/22/21 20:10 Temperature 97.6 F L Temperature Source Temporal Pulse Rate 102 H Respiratory Rate 15 Blood Pressure 133/82 H Blood Pressure Mean 99 Pulse Ox 97 Oxygen Delivery Method Room Air Positive well nourished and well developed General Appearance ED: well developed HEENT Reports normocephalic, head/scalp atraumatic and moist mucous membranes Eyes PERRL and EOMs intact bilaterally Neck no lymphadenopathy, supple and no JVD Resp normal respiratory effort and clear to auscultation bilaterally Cardio regular rate and no murmurs Rate: tachycardic GI normal to inspection, nondistended, normoactive bowel sounds and non-tender Palpation: soft Back/Spine no CVA tenderness and normal ROM Extremity normal to inspection General Extremety ED: Negative for edema General Extremity: Negative for edema Neuro oriented x3 and CN's II-XII intact bilaterally Sensorium / Orientation: alert Motor Exam: strength 5/5 throughout Psych Psych Narrative: Patient appears hyperalert with pressured speech Mood & Affect: Negative for depressed or tearful Skin no rashes or lesions noted and no wounds MDM MDM MDM Narrative Medical decision making narrative: When I informed the patient that he needed to get into a gown he states that he does not feel comfortable with this and states that he wants to leave. Discharge Plan Triage Chief Complaint: Substance Abuse ED Provider: Maximilian Bernstein Dx/Rx/DC Orders Clinical Impression: Alcohol abuse, Methamphetamine abuse Instructions: ED Alcohol Abuse Prescriptions: No Action NK RF: 0 Primary Care Provider: Care Physician,No Primary Referrals: Care Physician,No Primary [Primary Care Provider] - [facility] [STAFF PHYSICIAN] - As soon as possible Disposition Disposition: Elopement Discharge Date/Time: 05/22/21 20:36
== END 2021-05-22 20:36 | disposition left against medical advice (07) ==
PROVIDERS: Emergency Provider Emergency Medicine
DX: F10.20 Alcohol dependence, uncomplicated (principal); F15.10 Other stimulant abuse, uncomplicated; I10 Essential (primary) hypertension; J45.909 Unspecified asthma, uncomplicated; F32.9 Major depressive disorder, single episode, unspecified; F41.9 Anxiety disorder, unspecified; Z86.73 Personal history of transient ischemic attack (TIA), and cerebral infarction without residual deficits
CPT/HCPCS: 99282

== ENCOUNTER 2021-06-08 10:35 | Emergency (ER) | payer MEDICAID, SELFPAY ==
[2021-06-08 10:37] VITALS: BP 151/83; PULSE 94; RESP 18; TEMP 35.9; O2SAT 98
--- NOTE | 2021-06-08 10:49 | EDS_ITS ---
HPI History of Present Illness Chief Complaint: General Illness Informant: patient Onset/Context/Timing Quality: No current symptoms. Narrative Narrative: 45-year-old male history of drug abuse abuse and prior IV drug abuse. This concerned he may have HIV or hepatitis and rectal cancer runs in his family. He would like to be tested. Currently has no primary care physician. Prior similar symptoms: No Recent Illness/Hospitalization: No PFSH PFSH Medical History Alcohol abuse Anxiety Asthma Bulla of lung Depression Hypertension Non-smoker Stroke/cerebrovascular accident Home Medications NK 10/23/20 [History Last Taken Unknown] Allergy/AdvReac Type Severity Reaction Status Date / Time No Known Allergies Allergy Verified 06/08/21 10:37 Family History Father Alcoholism Surgical History History of ankle surgery Social History Smoking Status: Never smoker alcohol intake: current substance use type: methamphetamine ROS ROS ED ROS Narrative Denies recent illness. Review of Systems ROS Unobtainable: Denies due to encephalopathy Constitutional Constitutional ED: Denies chills or fever(s) Eyes Eyes: Denies change in vision ENT ENT ED: Denies ear pain Cardiovascular Cardiovascular: Denies chest pain Respiratory/Chest Respiratory/Chest: Denies cough or dyspnea Gastrointestinal Gastrointestinal: Denies abdominal pain, diarrhea, nausea or vomiting Genitourinary Genitourinary ED: Denies dysuria or hematuria Musculoskeletal Musculoskeletal: Denies myalgias Integumentary Denies rash Neurologic Neurologic: Denies headache(s) Psychiatric Psychiatric: Denies depression Endocrine Endocrinology: Denies polyuria Allergic/Immunologic Allergic/Immunologic ED: Denies urticaria EXAM Physical Exam Narrative Exam Narrative: Middle-aged male no acute distress vital signs stable afebrile. Exam benign. Lungs are clear. Heart regular rate and rhythm. Const Vital Signs: 06/08/21 10:37 Temperature 96.7 F L Temperature Source Temporal Pulse Rate 94 Respiratory Rate 18 Blood Pressure 151/83 H Blood Pressure Mean 105 Pulse Ox 98 Oxygen Delivery Method Room Air Positive well nourished and well developed; Negative for obese, cachectic, contractures or unkempt General Appearance ED: well developed and NAD; Negative for unkempt, cachectic, contractures or pallor Nutritional Appearance: Negative for cachectic or obese HEENT Reports moist mucous membranes Negative for trauma or tenderness Eyes PERRL and EOMs intact bilaterally Neck no lymphadenopathy, supple and no JVD General: Negative for tenderness Chest Wall inspection of chest normal and palpation of chest normal Resp normal respiratory effort and clear to auscultation bilaterally Cardio regular rate, regular rhythm, S1 normal heart sound, S2 normal heart sound and no murmurs GI normal to inspection, nondistended, normoactive bowel sounds, non-tender, non- distended and no masses Inspection: Negative for abdominal distention Auscultation: normoactive bowel sounds Palpation: soft; Negative for tender, guarding or rebound tenderness present Back/Spine no CVA tenderness Extremity normal to inspection General Extremety ED: Negative for edema or tenderness General Extremity: Negative for edema Neuro oriented x3 and CN's II-XII intact bilaterally Sensorium / Orientation: alert; Negative for orientation impaired, lethargic or stuporous Motor Exam: strength 5/5 throughout Psych mental status grossly normal Appearance: Negative for unkempt Mood & Affect: Negative for depressed or tearful Skin no rashes or lesions noted and no wounds General Skin Exam: Negative for jaundice or pallor MDM MDM MDM Narrative Medical decision making narrative: 45-year-old male requesting HIV and hepatitis testing those will be sent. He can follow-up the results with the primary care physician will be referred to local physicians. Lab Data Attestation: I reviewed the patient's lab results. Discharge Plan Triage Chief Complaint: General Illness ED Provider: Twan Garcia Dx/Rx/DC Orders Clinical Impression: Active substance abuse Instructions: Treating Drug Abuse and Addiction Prescriptions: No Action NK RF: 0 Primary Care Provider: Care Physician,No Primary Referrals: Milton Ding MD [STAFF PHYSICIAN] - As soon as possible Care Physician,No Primary [Primary Care Provider] - Activity Restrictions/Additional Instructions: Follow-up with a local primary care physician to review your test results from today. If you are looking for evaluation for rectal cancer they can get your referral to have a colonoscopy done. Disposition Disposition: Home, Self Care
[2021-06-08 12:14] LABS: HIV - WCH Non-Reactive (Nonreactive)
[2021-06-09 08:09] LABS: HEPATITIS B SURFACE AG Negative (Negative); Hepatitis A IgM Antibody Indeterminate (Negative); Hepatitis B Core AB IgM Negative (Negative)
[2021-06-09 08:18] LABS: Hep C Antibodies >11.0 s/co ratio (0.0-0.9)
== END 2021-06-08 11:35 | disposition home or self-care (01) ==
LOC: ED 11:20
PROVIDERS: Emergency Provider Emergency Medicine
DX: F19.11 Other psychoactive substance abuse, in remission (principal)
CPT/HCPCS: 80074; 86703; 99282

== ENCOUNTER 2021-06-20 23:54 | Emergency (ER) | payer MEDICAID, SELFPAY ==
[2021-06-20 23:54] VITALS: BP 119/71; PULSE 90; RESP 18; TEMP 36.4; O2SAT 99; BMI 20.1
--- NOTE | 2021-06-21 00:10 | CT_ITS ---
EXAM: CT HEAD WITHOUT INTRAVENOUS CONTRAST : 1975 CLINICAL INDICATION: right sided headache TECHNIQUE: Multiple axial images were obtained of the head without intravenous contrast. This CT exam was performed using one or more of the following dose reduction techniques: automated exposure control, adjustment of the mA and/or kV according to patient size, and/or use of iterative reconstruction technique. This report was created using [employer] report generation technology. COMPARISON: None. FINDINGS: BRAIN AND EXTRA-AXIAL SPACES: Unremarkable. No intra- or extra-axial hemorrhage. No evidence of acute infarct. No intracranial mass or mass effect. There is preservation of the fuller/white matter interface. Posterior fossa structures are unremarkable. Ventricles are appropriate for age. No hydrocephalus. Basal cisterns are patent. BONES/JOINTS: Unremarkable. No discrete lytic or blastic abnormalities. SINUSES: Unremarkable as visualized. Clear. MASTOID AIR CELLS: Unremarkable. Clear. ORBITS: Visualized globes, extraocular muscles, optic nerves and retrobulbar fat appear unremarkable. CT/Brain/Head without Contrast IMPRESSION: Negative head/brain CT without intravenous contrast. Individualized dose optimization techniques were used for this CT. at 0111 Reported and signed by: José Miguel Madsen MD Electronically Signed: José Miguel Madsen MD at 1:10 EDT Tel , Service support ,
--- NOTE | 2021-06-21 00:11 | EX.ED.VIS.HA ---
HPI History of Present Illness Chief Complaint: Headache Detail of Chief Complaint: Headache that started about a week ago Informant: patient Onset/Context/Timing Current Severity: 04/10 Narrative Narrative: Patient presents to the emergency department complaint of a headache that he has had off-and-on over the last week or so. Patient states he notices more at night. He describes it as right sided and he feels a thumping in the back of his head. He has had some mild nausea but no vomiting. Has had photophobia at times. He does not have a history of migraines. Patient states the pain came on suddenly. He denies any falls or head injuries. He denies recent illness. He denies any Covid exposures. Patient states his last Covid test was about 3 weeks ago and was negative. No family history of brain tumors or aneurysms. Prior similar symptoms: No PFSH PFSH Medical History Alcohol abuse Anxiety Asthma Bulla of lung Depression Hypertension Non-smoker Stroke/cerebrovascular accident Home Medications NK 10/23/20 [History Last Taken Unknown] Allergy/AdvReac Type Severity Reaction Status Date / Time No Known Allergies Allergy Verified 06/20/21 23:56 Family History Father Alcoholism Surgical History History of ankle surgery Social History Smoking Status: Never smoker alcohol intake: current substance use type: methamphetamine ROS ROS ED Constitutional Constitutional ED: Reports systems reviewed and no addt'l complaints, except as documented; Denies body ache(s), change in weight or chills Eyes Eyes: Denies acute decrease in peripheral vision, change in vision, double vision or loss of vision ENT ENT ED: Reports none; Denies ear pain, lip swelling, loss taste/smell, neck pain, otalgia or sore throat Cardiovascular Cardiovascular: Reports none; Denies abdominal pain, chest pain with activity, leg edema, lightheadedness, palpitations, rapid heart rate or syncope Respiratory/Chest Respiratory/Chest: Reports none; Denies change in mental status, dry cough, dyspnea, hemoptysis, shortness of breath at rest or shortness of breath with exertion Gastrointestinal Gastrointestinal: Reports none and nausea; Denies abdominal pain, change in stool character, diarrhea, hematemesis, hematochezia, melena, rectal bleeding or vomiting Genitourinary Genitourinary ED: Reports none; Denies abdominal discomfort, anuria, dysuria, genital pain or polyuria Musculoskeletal Musculoskeletal: Reports none; Denies arthralgias, back pain, difficulty walking, extremity pain, muscle weakness or myalgias Integumentary Reports none; Denies abscess or rash Neurologic Neurologic: Reports none and headache(s); Denies abnormal gait, confusion, focal weakness, frequent falls, loss of vision, numbness, paresthesias, radicular pain, vertigo or weakness Psychiatric Psychiatric: Reports systems reviewed and no addt'l complaints, except as documented and none; Denies behavioral changes, confusion, difficulty concentrating, hallucinations, suicidal ideation, tactile hallucinations or visual hallucinations Endocrine Endocrinology: Denies none, cold intolerance, excessive sweating, fatigue or heat intolerance Hematologic/Lymphatic Hematologic/Lymphatic: Reports none; Denies anemia, easy bleeding or easy bruising Allergic/Immunologic Allergic/Immunologic ED: Denies as per HPI, none, lip swelling, mouth swelling, throat swelling, tongue swelling or hives EXAM Physical Exam Const Vital Signs: 06/20/21 23:54 Temperature 97.6 F L Temperature Source Temporal Pulse Rate 90 Respiratory Rate 18 Blood Pressure 119/71 Blood Pressure Mean 87 Pulse Ox 99 Oxygen Delivery Method Room Air Positive well nourished and well developed General Appearance ED: well developed and NAD HEENT Reports TM's clear and moist mucous membranes normocephalic and atraumatic; Negative for trauma or tenderness Tympanic Membrane ED: Yes TM's clear Eyes PERRL and EOMs intact bilaterally General Eye ED: Negative for pale conjunctiva or scleral icterus Neck no lymphadenopathy, supple and no JVD General: Negative for tenderness Chest Wall inspection of chest normal and palpation of chest normal Chest: Negative for tenderness Resp normal respiratory effort and clear to auscultation bilaterally Effort and Inspection: Negative for respiratory distress or pain with movement Auscultation: Negative for rhonchi, wheezes or diminished lung sounds Cardio regular rate, regular rhythm, S1 normal heart sound, S2 normal heart sound and no murmurs Peripheral Pulses: pulses 2+ throughout GI normal to inspection, nondistended, normoactive bowel sounds, soft to palpation, non-tender, non-distended and no masses Back/Spine no CVA tenderness and no thoracic nor lumbar tenderness Extremity normal to inspection General Extremety ED: Negative for edema General Extremity: Negative for edema Neuro oriented x3, CN's II-XII intact bilaterally, no sensory deficits noted and gait normal Sensorium / Orientation: awake, alert, oriented to person, oriented to place and oriented to time Motor Exam: strength 5/5 throughout and strength abnormal Psych mental status grossly normal Skin no rashes or lesions noted and no wounds MDM MDM MDM Narrative Medical decision making narrative: Patient eloped from the emergency department prior to treatment completion. His CT scan result had not returned at the time of his leaving. He did not inform anybody that he was leaving and he discontinued his own IV and left the department. Patient CT scan was unremarkable. Radiography Diagnostic Testing: Radiology Impression Brain CT 06/21/21 00:10 IMPRESSION: Negative head/brain CT without intravenous contrast. Individualized dose optimization techniques were used for this CT. at 0111 Reported and signed by: José Miguel Madsen MD Electronically Signed: José Miguel Madsen MD at 1:10 EDT Tel , Service support , Discharge Plan Triage Chief Complaint: Headache ED Provider: Remberto Bernal Dx/Rx/DC Orders Clinical Impression: Cephalalgia Instructions: ED Headache Unspecified Prescriptions: No Action NK RF: 0 Primary Care Provider: Care Physician,No Primary Referrals: Care Physician,No Primary [Primary Care Provider] - Disposition Disposition: Elopement
[2021-06-21] MEDS: DiphenhydrAMINE 50 MG/ML Syringe IV (00:23)
[2021-06-21] MEDS: 0.9% Normal Saline 1,000 ML 1000 ML IV (00:23)
[2021-06-21] MEDS: Metoclopramide 10 MG/2 ML Vial IV (00:24)
[2021-06-21] MEDS: Ketorolac 30 MG/ML Syringe IV (00:25)
== END 2021-06-21 01:42 | disposition left against medical advice (07) ==
PROVIDERS: Emergency Provider Emergency Medicine
DX: R51.9 Headache, unspecified (principal); R11.0 Nausea; Z53.29 Procedure and treatment not carried out because of patient's decision for other reasons; I10 Essential (primary) hypertension; J45.909 Unspecified asthma, uncomplicated; Z86.73 Personal history of transient ischemic attack (TIA), and cerebral infarction without residual deficits
CPT/HCPCS: 70450; 96361; 96374; 96375; 99282; J7030; A4216

== ENCOUNTER 2021-07-19 18:15 | Emergency (ER) | payer MEDICAID, SELFPAY ==
[2021-07-19 18:16] VITALS: BP 146/98; PULSE 99; RESP 20; TEMP 36.2; O2SAT 97; BMI 20.9
[2021-07-19] MEDS: Albuterol 2.5 MG/3 ML VIAL.NEB. INHALATION (19:16)
[2021-07-19] MEDS: predniSONE 20 MG Tablet 60 MG PO (19:16)
[2021-07-19] MEDS: Ipratropium/Albuterol Sulfate 3 ML AMPUL.NEB INHALATION (19:16)
[2021-07-19 19:17] VITALS: PULSE 70; RESP 20
--- NOTE | 2021-07-19 20:49 | EDS_ITS ---
HPI History of Present Illness Chief Complaint: Shortness of Breath Narrative Narrative: Patient is a 45-year-old male with past medical history of asthma. He states that over the past few days he had increased congestion and drainage and has had worsening shortness of breath with cough. He denies any fevers or chills and states he has no concern for Covid as he is vaccinated. He reports that when he gets this way he typically receives some breathing treatments and then can be placed on an inhaler for home and this will help control symptoms and therefore presents for evaluation. [facility] Medical History Alcohol abuse Anxiety Asthma Bulla of lung Depression Hypertension Non-smoker Stroke/cerebrovascular accident Substance abuse Home Medications albuterol sulfate [Ventolin HFA] 1 - 2 puff INHALATION Q4H PRN PRN #1 device 07/19/21 [Rx Last Taken Unknown] epinastine 1 drp EACH EYE BID PRN #5 ml 07/19/21 [Rx Last Taken Unknown] prednisone 40 mg PO DAILY #14 tab 07/19/21 [Rx Last Taken Unknown] Allergy/AdvReac Type Severity Reaction Status Date / Time No Known Allergies Allergy Verified 07/19/21 18:17 Family History Father Alcoholism Surgical History History of ankle surgery Social History Smoking Status: Never smoker alcohol intake: current substance use type: methamphetamine ROS ROS ED Constitutional Constitutional ED: Denies chills or fever(s) Eyes Eyes: Reports other Details: Positive eye redness and irritation ENT ENT ED: Reports rhinorrhea; Denies sore throat Cardiovascular Cardiovascular: Denies chest pain Respiratory/Chest Respiratory/Chest: Reports cough and dyspnea Gastrointestinal Gastrointestinal: Denies abdominal pain, diarrhea, nausea or vomiting Genitourinary Genitourinary ED: Denies dysuria Musculoskeletal Musculoskeletal: Denies myalgias Integumentary Denies rash Neurologic Neurologic: Denies headache(s) Hematologic/Lymphatic Hematologic/Lymphatic: Denies easy bleeding or easy bruising EXAM Physical Exam Const Vital Signs: 07/19/21 18:16 07/19/21 18:44 07/19/21 19:17 Temperature 97.2 F L Temperature Source Temporal Pulse Rate 99 70 Respiratory Rate 20 H 20 H Respiratory Effort Normal Non-Labored Respiratory Depth Normal Respiratory Pattern Normal Tachypnea Blood Pressure 146/98 H Blood Pressure Mean 114 Pulse Ox 97 Oxygen Delivery Method Room Air Room Air 07/19/21 21:11 Temperature Temperature Source Pulse Rate 96 Respiratory Rate 18 Respiratory Effort Respiratory Depth Respiratory Pattern Blood Pressure 139/91 H Blood Pressure Mean Pulse Ox 97 Oxygen Delivery Method Positive well nourished and well developed General Appearance ED: well developed HEENT Reports moist mucous membranes HEENT Narrative: Cobblestoning the posterior pharynx consistent with sinus drainage but no airway edema or compromise Eyes PERRL and EOMs intact bilaterally Eyes Narrative: Patient has bilateral scleral injection consistent with allergic conjunctivitis Neck supple Chest Wall palpation of chest normal Resp Resp Narrative: Breath sounds are diminished throughout with diffuse expiratory wheeze but no signs of distress Cardio regular rate and regular rhythm GI non-tender, non-distended and no masses Auscultation: normoactive bowel sounds Palpation: soft Extremity normal to inspection Neuro oriented x3 and CN's II-XII intact bilaterally Sensorium / Orientation: alert Psych mental status grossly normal Skin no rashes or lesions noted MDM MDM MDM Narrative Medical decision making narrative: Patient presented to ER no acute respiratory distress satting well on room air. However his history and exam is consistent with an asthma exacerbation. We discussed possible Covid testing but he has no concerns as he states he is vaccinated with no exposures and does not want this obtain. Therefore patient was given steroids and breathing treatments and on reevaluation reported feeling better and remained in no acute distress and therefore will be discharged with symptomatic medications Discharge Plan Triage Chief Complaint: Shortness of Breath ED Provider: Andrew Henning Dx/Rx/DC Orders Clinical Impression: Asthma exacerbation, Acute allergic conjunctivitis of both eyes Instructions: Asthma Action Plan Prescriptions: New albuterol sulfate [Ventolin HFA] 90 mcg/actuation HFA aerosol inhaler 1 - 2 puff inhalation Q4H PRN PRN (Reason: Wheezing) Qty: 1 RF: 2 prednisone 20 mg tablet 40 mg PO DAILY Qty: 14 RF: 0 epinastine 0.05 % drops 1 drp EACH EYE BID PRN (Reason: allergic symptoms) Qty: 5 RF: 0 Primary Care Provider: Care Physician,No Primary Referrals: Chi Reid MD [STAFF PHYSICIAN] - 3-5 Days if not improving Care Physician,No Primary [Primary Care Provider] - Disposition Disposition: Home, Self Care Discharge Date/Time: 07/19/21 21:12
[2021-07-19 21:11] VITALS: BP 139/91; PULSE 96; RESP 18; O2SAT 97
== END 2021-07-19 21:12 | disposition home or self-care (01) ==
PROVIDERS: Emergency Provider Emergency Medicine
DX: J45.901 Unspecified asthma with (acute) exacerbation (principal); H10.13 Acute atopic conjunctivitis, bilateral; I10 Essential (primary) hypertension; Z86.73 Personal history of transient ischemic attack (TIA), and cerebral infarction without residual deficits
CPT/HCPCS: 94640; 99282

== ENCOUNTER 2022-02-12 19:06 | Emergency (ER) | payer MEDICAID, SELFPAY ==
[2022-02-12 19:07] VITALS: BP 105/95; PULSE 94; RESP 18; TEMP 36.6; O2SAT 98; BMI 20.1
--- NOTE | 2022-02-12 19:15 | EKG12_ITS ---
Test Reason : DIZZINESS Blood Pressure : / mmHG Vent. Rate : 083 BPM Atrial Rate : 083 BPM P-R Int : 130 ms QRS Dur : 094 ms QT Int : 386 ms P-R-T Axes : 075 047 054 degrees QTc Int : 453 ms Normal sinus rhythm Normal ECG Confirmed by DIETER CRUZ MD ([id number]), restaurant expeditor OMERO ROBLES ([id number]) on 02/14/2022 1:44:40 PM Referred By: DAVID Confirmed By:DIETER CRUZ MD
--- NOTE | 2022-02-12 19:15 | EX.ED.DYSGE1 ---
HPI History of Present Illness Chief Complaint: Dizziness Informant: patient Onset/Context/Timing Onset: Today Narrative Narrative: Patient reports not feeling well for the last hour or so. He states he ate something that did not taste right and he believes someone put meth in his food. He does admit to using meth earlier today. He also admits to drinking a beer earlier. He has been out in the heat. He states for the last half hour to 1 hour he has felt lightheaded and is seeing spots. He reports some mild nausea. [facility] Medical History Alcohol abuse Anxiety Asthma Bulla of lung Depression Hypertension Non-smoker Stroke/cerebrovascular accident Substance abuse Allergy/AdvReac Type Severity Reaction Status Date / Time No Known Allergies Allergy Verified 02/12/22 19:09 Family History Father Alcoholism Surgical History History of ankle surgery Social History Smoking Status: Never smoker alcohol intake: current substance use type: methamphetamine ROS ROS ED Constitutional Constitutional ED: Denies chills or fever(s) Eyes Eyes: Denies change in vision ENT ENT ED: Denies sore throat Cardiovascular Cardiovascular: Denies chest pain Respiratory/Chest Respiratory/Chest: Denies cough or dyspnea Gastrointestinal Gastrointestinal: Reports nausea; Denies abdominal pain, diarrhea or vomiting Genitourinary Genitourinary ED: Denies dysuria Musculoskeletal Musculoskeletal: Denies back pain Integumentary Denies rash Neurologic Neurologic: Reports weakness; Denies headache(s) Allergic/Immunologic Allergic/Immunologic ED: Denies urticaria EXAM Physical Exam Const Vital Signs: 02/12/22 19:07 02/12/22 19:16 Temperature 97.9 F Temperature Source Temporal Pulse Rate 94 Respiratory Rate 18 Respiratory Effort Normal Non-Labored Respiratory Pattern Normal Blood Pressure 105/95 H Blood Pressure Mean 98 Pulse Ox 98 Oxygen Delivery Method Room Air Positive well nourished and well developed General Appearance ED: well developed HEENT Reports dry mucous membranes Mouth ED: Yes dry mucous membranes Mouth: dry mucous membranes Eyes PERRL and EOMs intact bilaterally Neck supple Resp normal respiratory effort and clear to auscultation bilaterally Cardio regular rate and regular rhythm GI non-tender GI Narrative: Reducible right inguinal hernia noted. Palpation: soft Extremity normal to inspection Neuro oriented x3 Sensorium / Orientation: alert Psych mental status grossly normal Skin no rashes or lesions noted MDM MDM MDM Narrative Medical decision making narrative: EKG and lab work obtained. Patient given a liter IV fluid. Lab Data Attestation: I reviewed the patient's lab results. Labs: Laboratory Results - last 24 hr 02/12/22 02/12/22 19:25 19:25 WBC 4.6 RBC 4.09 L Hgb 13.2 Hct 38.6 L MCV 94.4 H MCH 32.3 H MCHC 34.2 RDW Std Deviation 42.9 RDW Coeff of Bridger 12.3 Plt Count 313 MPV 8.7 Immature Gran % (Auto) 0.400 Neut % (Auto) 60.8 Lymph % (Auto) 23.9 [place] % (Auto) 8.1 Eos % (Auto) 6.1 H Baso % (Auto) 0.7 Absolute Neuts (auto) 2.8 Absolute Lymphs (auto) 1.09 Nucleated RBC % 0 Sodium 141 Potassium 3.8 Chloride 108 H Carbon Dioxide 27.0 Anion Gap 6 BUN 22 H Creatinine 0.85 Estim Creat Clear Calc 87.09 Est GFR (MDRD) Af Amer 125 Est GFR (MDRD) Non-Af 103 BUN/Creatinine Ratio 25.9 H Glucose 96 Calcium 8.5 EKG Initial EKG: Attestation: I personally reviewed and interpreted this EKG as follows: Interpretation: Sinus Rhythm (Sinus 83 with no acute ischemia.) Treatment and Re-Evaluation Narrative: On repeat evaluation patient does feel improved. BUN is slightly elevated at 22. Remainder of labs unremarkable. On repeat evaluation heart rate is in the 80s and systolic blood pressures in the mid 120s. Patient encouraged to push fluids. He will be given referral for outpatient surgery follow-up for his inguinal hernia. Return instructions are provided. Discharge Plan Triage Chief Complaint: Dizziness ED Provider: Xenia Hall Dx/Rx/DC Orders Clinical Impression: Dehydration, Dizziness, Inguinal hernia Instructions: ED Dehydration (Adult), ED Hernia (Adult) Primary Care Provider: Care Physician,No Primary Referrals: Maximilian Bay MD [STAFF PHYSICIAN] - As Needed Care Physician,No Primary [Primary Care Provider] - Disposition Disposition: Home, Self Care
[2022-02-12] MEDS: 0.9% Normal Saline 1,000 ML 1000 ML IV (19:24)
[2022-02-12 19:32] LABS: Absolute Lymphocyte Count 1.09 X10^3/uL (0.83-4.51); Absolute Neutrophil Count 2.8 X10^3/uL (2.0-7.7); Basophil# 0.03 X10^3/uL; Basophil% 0.7 % (0-1); Eosinophil# 0.28 X10^3/uL; Eosinophils% 6.1 % (0-5); Hematocrit 38.6 % (40-54); Hemoglobin 13.2 g/dL (13.0-16.5); Lymphocyte # 1.09 X10^3/ul (0.83-4.51); Lymphocyte % 23.9 % (19-41); Mean Corp Hgb Conc 34.2 g/dL (32-36); Mean Corpuscular Hgb 32.3 pg (27.0-32.0); Mean Corpuscular Volume 94.4 fL (80-94); Mean Platelet Vol. 8.7 fl (6.2-12.0); Monocyte# 0.37 X10^3/uL; Monocyte% 8.1 % (0-10); NRBC Flagged by Analyzer 0 % (0-5); Neutrophil # 2.77 X10^3/uL (2.7-7.7); Neutrophil % 60.8 % (47-70); Platelet Count 313 K/mm3 (150-450); RBC Distribution Width CV 12.3 % (11.6-14.6); RBC Distribution Width SD 42.9 fl (35.1-43.9); Red Blood Count 4.09 M/mm3 (4.6-6.2); White Blood Count 4.6 K/mm3 (4.4-11.0)
[2022-02-12 19:46] LABS: Anion Gap 6 (5-15); BUN 22 mg/dL (7-18); BUN/Creat Ratio 25.9 RATIO (10-20); Calcium,Total 8.5 mg/dL (8.5-10.1); Chloride 108 mmol/L (98-107); Creatinine, Serum 0.85 mg/dL (0.70-1.30); EST Glomerular Filtration Rate 103 mL/min (>60); Est Glom Filt Rate - Afr Amer 125 mL/min (>60); Estimated Creatinine Clearance 87.09 ml/min; Glucose 96 mg/dL (74-106); Potassium 3.8 mmol/L (3.5-5.1); Sodium Level 141 mmol/L (136-145)
[2022-02-12 20:44] VITALS: BP 134/96; PULSE 85; RESP 15
== END 2022-02-12 20:47 | disposition home or self-care (01) ==
PROVIDERS: Emergency Provider Emergency Medicine; Visit Provider Emergency Medicine
DX: E86.0 Dehydration (principal); J43.9 Emphysema, unspecified; K40.90 Unilateral inguinal hernia, without obstruction or gangrene, not specified as recurrent; I10 Essential (primary) hypertension; R42 Dizziness and giddiness; Z86.73 Personal history of transient ischemic attack (TIA), and cerebral infarction without residual deficits
CPT/HCPCS: 80048; 85025; 93005; 96360; 99284; J7030; A4216

== ENCOUNTER 2022-03-19 20:26 | Inpatient (IN) | payer MEDICAID, SELFPAY ==
[2022-03-19 20:28] VITALS: BP 128/89; PULSE 95; RESP 16; TEMP 36.3; O2SAT 99; BMI 19.0
--- NOTE | 2022-03-19 20:42 | EDS_ITS ---
HPI History of Present Illness Chief Complaint: Substance Abuse Informant: patient Narrative Narrative: 46-year-old male states that he is requesting help with alcoholism. He states that he does do other drugs but alcohol is his prime drug. States that he did speak a few hours ago. States that he is currently not working and is homeless for the past year. He states that he has some upcoming court appearances and would like to be sober for them. He has attempted detox in the past. He states that he would like to see about going somewhere long-term residential [place] for further care after his withdrawal symptoms are better [facility] Medical History (Updated 03/19/22 @ 21:[address] Trang Valencia DO) Active substance abuse Alcohol abuse Anxiety Asthma Bulla of lung Depression GERD (gastroesophageal reflux disease) Hypertension Inguinal hernia bilateral, non-recurrent Methamphetamine abuse Non-smoker Stroke/cerebrovascular accident Substance abuse Allergy/AdvReac Type Severity Reaction Status Date / Time No Known Allergies Allergy Verified 02/12/22 19:09 Family History Father Alcoholism Surgical History History of ankle surgery Social History Smoking Status: Never smoker alcohol intake: current substance use type: methamphetamine ROS ROS ED Constitutional Constitutional ED: Denies chills or weight loss Eyes Eyes: Denies change in vision or diplopia ENT ENT ED: Denies ear pain, rhinorrhea or sore throat Cardiovascular Cardiovascular: Denies chest pain, orthopnea, palpitations or racing heartbeat Respiratory/Chest Respiratory/Chest: Denies cough, dyspnea or orthopnea Gastrointestinal Gastrointestinal: Denies abdominal pain, diarrhea, nausea or vomiting Genitourinary Genitourinary ED: Denies dysuria, hematuria or urinary frequency Musculoskeletal Musculoskeletal: Denies arthralgias or myalgias Integumentary Denies abscess or rash Neurologic Neurologic: Denies headache(s) or weakness Psychiatric Psychiatric: Denies anxiety, depression, suicidal ideation or suicidal thoughts Endocrine Endocrinology: Denies polydipsia, polyphagia or polyuria Allergic/Immunologic Allergic/Immunologic ED: Denies mouth swelling, tongue swelling or urticaria EXAM Physical Exam Const Vital Signs: 03/19/22 20:28 Temperature 97.4 F L Temperature Source Temporal Pulse Rate 95 Respiratory Rate 16 Blood Pressure 128/89 H Blood Pressure Mean 102 Pulse Ox 99 Oxygen Delivery Method Room Air Positive well nourished and well developed General Appearance ED: well developed HEENT Reports normocephalic, head/scalp atraumatic and moist mucous membranes Eyes PERRL and EOMs intact bilaterally Neck no lymphadenopathy, supple and no JVD Resp normal respiratory effort and clear to auscultation bilaterally Cardio regular rate, regular rhythm and no murmurs GI normal to inspection, nondistended, normoactive bowel sounds and non-tender Palpation: soft Back/Spine no CVA tenderness and normal ROM Extremity normal to inspection General Extremety ED: Negative for edema General Extremity: Negative for edema Neuro oriented x3 and CN's II-XII intact bilaterally Sensorium / Orientation: alert Motor Exam: strength 5/5 throughout Psych mental status grossly normal Mood & Affect: Negative for depressed or tearful Skin no rashes or lesions noted and no wounds MDM MDM MDM Narrative Medical decision making narrative: Patient will have daily addiction labs drawn. If he is agreeable to the rules of the program I will speak with the hospitalist regarding admission. Lab Data Attestation: I reviewed the patient's lab results. Labs: Laboratory Results - last 24 hr 03/19/22 03/19/22 03/19/22 20:50 20:50 20:50 WBC 5.7 RBC 4.46 L Hgb 13.9 Hct 41.4 MCV 92.8 MCH 31.2 MCHC 33.6 RDW Std Deviation 40.3 RDW Coeff of Bridger 11.9 Plt Count 301 MPV 9.0 Immature Gran % (Auto) 0.200 Neut % (Auto) 60.1 Lymph % (Auto) 24.6 [place] % (Auto) 5.4 Eos % (Auto) 8.8 H Baso % (Auto) 0.9 Absolute Neuts (auto) 3.4 Absolute Lymphs (auto) 1.40 Nucleated RBC % 0 Sodium 139 Potassium 4.5 Chloride 107 Carbon Dioxide 28.0 Anion Gap 4 L BUN 29 H Creatinine 0.86 Estim Creat Clear Calc 83.73 Est GFR (MDRD) Af Amer 123 Est GFR (MDRD) Non-Af 101 BUN/Creatinine Ratio 33.6 H Glucose 97 Calcium 8.6 Total Bilirubin 0.40 AST 33 ALT 42 Alkaline Phosphatase 61 Total Protein 8.2 Albumin 3.7 Globulin 4.5 H Albumin/Globulin Ratio 0.8 L Ethyl Alcohol 4.0 Discharge Plan Dx/Rx/DC Orders Clinical Impression: Active substance abuse, Alcoholism, Desire for detoxification Disposition Disposition: Acute Care Hospital [facility]
[2022-03-19 21:00] LABS: Absolute Neutrophil Count 3.4 X10^3/uL (2.0-7.7); Basophil# 0.05 X10^3/uL; Basophil% 0.9 % (0-1); Eosinophils% 8.8 % (0-5); Hematocrit 41.4 % (40-54); Hemoglobin 13.9 g/dL (13.0-16.5); Lymphocyte % 24.6 % (19-41); Mean Corp Hgb Conc 33.6 g/dL (32-36); Mean Corpuscular Hgb 31.2 pg (27.0-32.0); Mean Corpuscular Volume 92.8 fL (80-94); Monocyte# 0.31 X10^3/uL; Monocyte% 5.4 % (0-10); NRBC Flagged by Analyzer 0 % (0-5); Neutrophil # 3.43 X10^3/uL (2.7-7.7); Neutrophil % 60.1 % (47-70); Platelet Count 301 K/mm3 (150-450); RBC Distribution Width CV 11.9 % (11.6-14.6); RBC Distribution Width SD 40.3 fl (35.1-43.9); Red Blood Count 4.46 M/mm3 (4.6-6.2); White Blood Count 5.7 K/mm3 (4.4-11.0)
--- NOTE | 2022-03-19 21:16 | PCM.HP.STD ---
HPI - General General Date of Admission: 03/19/22 Date of Service: 03/19/22 Chief Complaint: Acute alcohol withdrawal HPI Narrative MICHAEL KAUR, is a 46 M who presented to the emergency department [facility] on 03/19/2022 requesting detoxification from alcohol. The patient was last admitted here on 02/07/2021 for acute alcohol detox and did well with the phenobarb protocol. At that time he was not all that interested in having a discharge plan and did not meet with social media project manager [phone] but was discharged home in stable condition. At this point he is interested in residential treatment. He drinks 6-8 tall boys of typically beer daily daily. His last drink was a few hours prior to presentation. He has some upcoming legal issues for which she would like to be sober. Vital signs on presentation show a temperature of 97.4, heart rate of 95, blood pressure 128/89, respiratory 16, oxygen saturation 99% on room air. CBC is unremarkable. His chemistry panel was unremarkable. His ethyl alcohol level was 4.0. Complete drug screen was pending on admission. [facility] Medical History Active substance abuse Alcohol abuse Anxiety Asthma Bulla of lung Depression GERD (gastroesophageal reflux disease) Hypertension Inguinal hernia bilateral, non-recurrent Methamphetamine abuse Non-smoker Stroke/cerebrovascular accident Substance abuse Allergy/AdvReac Type Severity Reaction Status Date / Time No Known Allergies Allergy Verified 02/12/22 19:09 Family History Father Alcoholism Surgical History History of ankle surgery Social History (Updated 03/19/22 @ 21:[address] Trang Valencia DO) housing: homeless Smoking Status: Never smoker alcohol intake: current substance use type: methamphetamine ROS Constitutional Constitutional: Reports malaise; Denies anorexia, change in weight, chills, fatigue, fever(s), night sweats, weakness or other Eyes Eyes: Denies blurry vision, change in eye color, change in vision, discharge from eye(s), double vision, erythema, eye pain, loss of vision or other ENT HEENT: Denies abnormal hearing, dysphagia, ear pain, epistaxis, headache(s), hearing loss, nasal congestion, nasal discharge, post nasal drip, sinus pressure, sore throat or other Cardiovascular Cardiovascular: Denies chest pain, claudication, dyspnea on exertion, edema, lightheadedness, orthopnea, palpitations, paroxysmal nocturnal dyspnea, rapid heart rate, syncope or other Respiratory/Chest Respiratory/Chest: Denies cough, dyspnea, excessive phlegm production, hemoptysis, productive cough, shortness of breath at rest, shortness of breath with exertion, wheezing or other Gastrointestinal Gastrointestinal: Denies abdominal pain, coffee ground emesis, constipation, diarrhea, dyspepsia, hematemesis, hematochezia, loose stools, melena, nausea, vomiting or other Genitourinary Genitourinary: Denies burning urination, difficulty urinating, dysuria, hematuria, nocturia, urinary frequency, urinary hesitancy, urinary incontinence, urinary urgency or other Musculoskeletal Musculoskeletal: Denies arthralgias, back pain, joint pain, joint stiffness, joint swelling, myalgias, neck pain or other Neurologic Neurologic: Reports tremor(s); Denies abnormal gait, abnormal speech, confusion, disequilibrium, dizziness, focal weakness, headache(s), numbness, paresthesias, seizure-like activity, seizures, syncope, tingling or other Psychiatric Psychiatric: Reports anxiety; Denies depression, homicidal ideation, suicidal ideation or other Endocrine Endocrinology: Denies change in body appearance, cold intolerance, excessive sweating, heat intolerance, polydipsia, polyuria or other Hematologic/Lymphatic Hematologic/Lymphatic: Denies anemia, easy bleeding, easy bruising, lymphadenopathy or other Allergic/Immunologic Allergic/Immunologic: Denies rhinitis, hives, eczemia, asthma or other Vital Signs Vital Signs Vital Signs: 03/19/22 20:28 Temperature 97.4 F L Temperature Source Temporal Pulse Rate 95 Respiratory Rate 16 Blood Pressure 128/89 H Blood Pressure Mean 102 Pulse Ox 99 Oxygen Delivery Method Room Air Weight Weight: 55.157 kg Body Mass Index (BMI) 19.0 Physical Exam Const alert, oriented x3 and no apparent distress Constitutional Narrative: Thin, middle-aged white male sitting up on the edge of the bed, appears comfortable and nontoxic, mildly anxious, appropriate and interactive, appears much older than stated age General Appearance: cooperative HEENT normocephalic, head/scalp atraumatic, hearing grossly normal bilaterally and moist oral mucous membranes HEENT Narrative: Mallampati 1, edentulous, no thrush Resp normal respiratory effort, no retractions, no use of accessory muscles and clear to auscultation bilaterally Auscultation: Negative for crackles, rales, rhonchi or wheezes Cardio regular rate, regular rhythm, S1 normal heart sound, S2 normal heart sound, no murmurs, no rub, no gallops, no clicks and no JVD GI normal to inspection, nondistended, normoactive bowel sounds, soft to palpation, non-tender and non-distended; Negative for hepatosplenomegaly GI Narrative: Bilateral inguinal hernia right greater than left easily reducible Palpation: hernia Extremity no clubbing, cyanosis or edema Extremity Narrative: Pedal pulses 2+ Neuro oriented x3, CN's II-XII intact bilaterally, moves all extremities and no focal motor deficits Speech: speech normal Motor Exam: strength 5/5 throughout Results Lab / Micro Data Attestation: I reviewed the patient's lab results. Result Diagrams: 03/19/22 20:50 03/19/22 20:50 Labs: Laboratory Results - last 24 hr 03/19/22 20:50: WBC 5.7, RBC 4.46 L, Hgb 13.9, Hct 41.4, MCV 92.8, MCH 31.2, MCHC 33.6, RDW Std Deviation 40.3, RDW Coeff of Bridger 11.9, Plt Count 301, MPV 9.0, Immature Gran % (Auto) 0.200, Neut % (Auto) 60.1, Lymph % (Auto) 24.6, [place] % (Auto) 5.4, Eos % (Auto) 8.8 H, Baso % (Auto) 0.9, Absolute Neuts (auto) 3.4, Absolute Lymphs (auto) 1.40, Nucleated RBC % 0 Assessment & Plan Assessment/Plan (1) Alcoholism: (2) Acute alcohol withdrawal: (3) Desire for detoxification: PLAN: Plan Acute alcohol withdrawal with history of alcoholism -Drinks approximately 6-8 tall boys a day-typically beer -Start phenobarbital taper -Start thiamine and folate -Start supportive medications for withdrawal -[facility] protocol -Consult addiction--> anticipate 180 to see on Monday morning Polysubstance abuse -Has a history of methamphetamine use as well -Urine toxicology screen is pending on admission Bilateral inguinal hernia right greater than left -Recommend outpatient follow-up for evaluation as hernia is fairly significant on the right side -No current pain or signs of strangulation DVT prophylaxis -Low risk -Ambulation protocol CODE STATUS -Full code Charges/Coding Visit Charges Inpatient E&M: 80779 Init Hosp L2
[2022-03-19 21:32] LABS: ALB/GLOB Ratio 0.8 RATIO (0.9-2.4); AST(SGOT) 33 U/L (15-37); Alanine Aminotransfer ALT/SGPT 42 U/L (16-61); Albumin, Serum 3.7 g/dL (3.2-5.0); Alkaline Phosphatase 61 U/L (45-117); Anion Gap 4 (5-15); BUN 29 mg/dL (7-18); BUN/Creat Ratio 33.6 RATIO (10-20); Calcium,Total 8.6 mg/dL (8.5-10.1); Chloride 107 mmol/L (98-107); Creatinine, Serum 0.86 mg/dL (0.70-1.30); EST Glomerular Filtration Rate 101 mL/min (>60); Est Glom Filt Rate - Afr Amer 123 mL/min (>60); Estimated Creatinine Clearance 83.73 ml/min; Globulin 4.5 g/dL (2.2-4.2); Glucose 97 mg/dL (74-106); Potassium 4.5 mmol/L (3.5-5.1); Protein, Total 8.2 g/dL (6.4-8.2); Sodium Level 139 mmol/L (136-145)
[2022-03-19 21:51] VITALS: BP 128/89; PULSE 95; RESP 16; TEMP 36.3; O2SAT 99
[2022-03-19 22:03] LABS: Amphetamine Urine VISTA POSITIVE (<1000 ng/mL); Barbiturate Urine VISTA NEGATIVE (< 200 ng/mL); Benzodiazepine Urine VISTA NEGATIVE (< 200 ng/mL); Cocaine Urine VISTA NEGATIVE (< 300 ng/mL); Ecstacy Urine VISTA POSITIVE (< 500 ng/mL); Methadone Urine VISTA NEGATIVE (< 300 ng/mL); PCP Urine VISTA NEGATIVE (< 25 ng/mL); THC Urine VISTA NEGATIVE (< 50 ng/mL); Vista UDS pH Range 5
[2022-03-19 22:46] VITALS: BMI 19.0
[2022-03-19 22:48] VITALS: BP 118/92; PULSE 82; RESP 16; TEMP 36.7; O2SAT 99
[2022-03-19] MEDS: traZODone 100 MG Tablet PO (23:13)
[2022-03-19] MEDS: Phenobarbital 32.4 MG Tablet 64.8 MG PO (23:13)
--- NOTE | 2022-03-19 23:42 | NURSING ---
Pt is homeless.
[2022-03-20 03:11] VITALS: BP 101/60; PULSE 79; RESP 16; TEMP 36.4; O2SAT 97
[2022-03-20] MEDS: Phenobarbital 32.4 MG Tablet 64.8 MG PO ×6 (03:13→21:58)
[2022-03-20 07:03] VITALS: BP 118/94; PULSE 80; RESP 16; TEMP 36.6; O2SAT 95
--- NOTE | 2022-03-20 10:13 | PN.HOSP_ITS ---
Subjective Subjective Patient seen and examined. He was lethargic and drowsy, which he attributed to the withdrawal medication he had taken. He had no active complaints and had an uneventful night. Review of systems is otherwise negative. Objective Data Objective Data Vital Signs: Vital Signs Temp Pulse Resp BP Pulse Ox 98 F 80 16 118/94 H 95 03/20/22 07:03 03/20/22 07:03 03/20/22 07:03 03/20/22 07:03 03/20/22 07:03 Oxygen Delivery Method Room Air Weight: 121 lb 4.068 oz Body Mass Index (BMI) 19.0 Intake & Output: Intake and Output for Last 24 Hours 03/18/22 03/19/22 03/20/22 23:59 23:59 23:59 Intake Total 300 / 300 Balance 300 / 300 Lab / Micro Data Result Diagrams: 03/19/22 20:50 03/19/22 20:50 Labs: Laboratory Results - last 24 hr 03/19/22 20:50: WBC 5.7, RBC 4.46 L, Hgb 13.9, Hct 41.4, MCV 92.8, MCH 31.2, MCHC 33.6, RDW Std Deviation 40.3, RDW Coeff of Bridger 11.9, Plt Count 301, MPV 9.0, Immature Gran % (Auto) 0.200, Neut % (Auto) 60.1, Lymph % (Auto) 24.6, Scurry % (Auto) 5.4, Eos % (Auto) 8.8 H, Baso % (Auto) 0.9, Absolute Neuts (auto) 3.4, Absolute Lymphs (auto) 1.40, Nucleated RBC % 0 03/19/22 20:50: Sodium 139, Potassium 4.5, Chloride 107, Carbon Dioxide 28.0, Anion Gap 4 L, BUN 29 H, Creatinine 0.86, Estim Creat Clear Calc 83.73, Est GFR (MDRD) Af Amer 123, Est GFR (MDRD) Non-Af 101, BUN/Creatinine Ratio 33.6 H, Glucose 97, Calcium 8.6, Total Bilirubin 0.40, AST 33, ALT 42, Alkaline Phosphatase 61, Total Protein 8.2, Albumin 3.7, Globulin 4.5 H, Albumin/Globulin Ratio 0.8 L 03/19/22 20:50: Ethyl Alcohol 4.0 03/19/22 21:40: Urine Opiates Screen NEGATIVE, Urine Methadone Screen NEGATIVE, Ur Barbiturates Screen NEGATIVE, Ur Phencyclidine Scrn NEGATIVE, Ur Amphetamines Screen POSITIVE H, MDMA (Ecstasy) Screen POSITIVE H, U Benzodiazepines Scrn NEGATIVE, Urine Cocaine Screen NEGATIVE, U Cannabinoids Screen NEGATIVE, Ur Drug Screen Comment Physical Exam Const alert, oriented x3 and no apparent distress HEENT head/scalp atraumatic, moist oral mucous membranes and oropharynx normal Head and Scalp: normocephalic Mouth: oral and palatal mucosa normal Eyes PERRL, EOMs intact bilaterally and conjunctivae normal Neck no lymphadenopathy, supple and no JVD Resp normal respiratory effort, no retractions, no use of accessory muscles and clear to auscultation bilaterally Cardio regular rate, regular rhythm, S1 normal heart sound, S2 normal heart sound and no murmurs GI normal to inspection, nondistended, normoactive bowel sounds, soft to palpation, non-tender and non-distended Extremity normal to inspection, full ROM and no clubbing, cyanosis or edema Neuro oriented x3, CN's II-XII intact bilaterally, moves all extremities and no focal motor deficits Neuro Narrative: lethargic Sensorium / Orientation: awake Assessment & Plan Assessment/Plan (1) Acute alcohol withdrawal: PLAN: Plan #Acute alcohol withdrawal * on alcohol withdrawal protocol with phenobarbital * on thiamine, folic acid and multivite * on adjunctive meds for symptomatic relief * monitor CIWA score * #History of polysubstance abuse * urine tox positive for amphetamine and MDMA * #Bilateral inguinal hernia * greater on the right than the left * to follow up with general surgery on outpatient basis. * DVT prophylaxis: low risk, encourage ambulation Charges/Coding Visit Charges Inpatient E&M: 74448 Subs Hosp L2
[2022-03-20 10:40] VITALS: BP 126/83; PULSE 73; RESP 18; TEMP 36.6; O2SAT 98
[2022-03-20] MEDS: Folic Acid 1 MG Tablet PO (10:42)
[2022-03-20] MEDS: Thiamine Hydrochloride 100 MG Tablet PO (10:42)
[2022-03-20 15:20] VITALS: BP 137/73; PULSE 78; RESP 18; O2SAT 97
[2022-03-20 18:39] VITALS: BP 125/75; PULSE 73; RESP 18; TEMP 36.8; O2SAT 97
[2022-03-20 21:52] VITALS: BP 120/77; PULSE 82; RESP 16; TEMP 36.9; O2SAT 95
[2022-03-21 03:27] VITALS: BP 118/72; PULSE 91; RESP 18; TEMP 36.8; O2SAT 99
[2022-03-21] MEDS: Phenobarbital 32.4 MG Tablet 64.8 MG PO ×5 (03:28→23:20)
[2022-03-21 09:10] VITALS: BP 108/80; PULSE 69; RESP 16; TEMP 36.4; O2SAT 100
--- NOTE | 2022-03-21 09:14 | CASEMGMT ---
Social Work Attempted to follow up with patient in room, patient being evaluated by therapy. Will attempt to see patient later in day. Love Carlson MSW, DOLLY-S
[2022-03-21] MEDS: Thiamine Hydrochloride 100 MG Tablet PO (09:15)
[2022-03-21] MEDS: Folic Acid 1 MG Tablet PO (09:15)
[2022-03-21] MEDS: Ondansetron 8 MG Tablet PO (09:19)
--- NOTE | 2022-03-21 13:35 | CHAPLAIN ---
Type of Pastoral Visit _x__ Initial Visit ___ Follow-up Visit ___ On-call Visit ___ General Patient Visit ___ Spiritual Assessment ___ Family Conference ___ Bereavement ___ Rapid Response ___ Code Blue ___ Other (describe below) Pastoral Care Referral From _x__ Patient ___ Family ___ Nurse ___ Physician ___ Auto Transport Driver ___ Butt [employer]yer ___ Other (describe below) Sacrament/Intervention _x__ Active listening ___ Anointing ___ Holiness ___ Bereavement ___ Communion ___ Isamar exploration ___ ___ Life review _x__ Prayer ___ Reconciliation ___ Sacrament of Sick ___ Supportive presence ___ Wedding ___ Other (describe below) Pastoral Comments patient has been seen before due to alcohol addiction; pt has been receptive to spiritual care support and is again today; pt does admit that his head is foggy and hard to express himself; pt welcomes prayer and requests a visit another time when I can focus on talking
[2022-03-21 14:02] VITALS: BP 122/83; PULSE 81; RESP 15; TEMP 36.3; O2SAT 100
--- NOTE | 2022-03-21 14:29 | CASEMGMT ---
Social Work Referral: Homeless Referral source: Medical doctor. Patient to be discharged to an inpatient residential for substance abuse treatment per treatment navigator. Did not assess homelessness due to patient discharge today to residential facility. Love MOE, DOLLY-S
--- NOTE | 2022-03-21 15:22 | ADDICTION ---
This commercial insurance underwriter met with PT to conduct ASAM, MSE, AUDIT assessments and to plan for d/c. PT A+Ox4 and participated actively. All assessments completed and placed in PT's chart. PT plans to f/u with [facility] for residential treatment services. [facility] will provide transportation post d/c from [facility] on Friday 03/23 @11am.
--- NOTE | 2022-03-21 19:31 | PCM.PN.HOSP ---
Subjective Subjective Patient was seen and examined today, he appeared to be nervous and restless today, he was difficult to understand when talking to home because he mumbled instead of speaking clearly. Patient was alert and appeared to be oriented x3. Patient was set up to go to an inpatient detox program today but due to his restlessness it was felt that he should remain here and continue treatment for alcohol detox. Objective Data Objective Data Vital Signs: Vital Signs Temp Pulse Resp BP Pulse Ox 97.3 F L 81 15 122/83 H 100 03/21/22 14:02 03/21/22 14:02 03/21/22 14:02 03/21/22 14:02 03/21/22 14:02 Oxygen Delivery Method Room Air Weight: 55 kg Body Mass Index (BMI) 19.0 Intake & Output: Intake and Output for Last 24 Hours 03/19/22 03/20/22 03/21/22 23:59 23:59 23:59 Intake Total 300 / 300 Balance 300 / 300 Medical Nutrition Assessment Dietitian: Malnutrition Criteria Met Start: 03/20/22 16:04 Freq: Status: Active Protocol: Document 03/20/22 16:05 RMA (Rec: 03/20/22 16:05 RMA [id number]) Nutrition Malnutrition Evidence of Malnutrition Exists Yes Malnutrition (severe): Social/Behavioral/ Environmental Evidenced By Suboptimal Energy Intake ( Severe),Weight Loss (Severe), Physical Changes (Moderate) Clinical Problem Chronic Disease or Condition Related Malnutrition Etiology Severe protein-calorie malnutrition in the context of social circumstance related to ETOH abuse and inadequate oral intake Signs/Symptoms as evidenced by ~19% wt loss x past 12 months, BMI 19, PO meeting less than 50% estimated nutrition needs x past 6 months and moderate muscle/fat wasting visible in the face, eyes appear sunken in and clavicle is protruding Status Active Problem Recommendation Dietitian Recommendations/Changes Continue regular diet as ordered--will add extra 1-2 oz protein/meat Q meal. Continue ensure enlive w/ medpass as ordered. Adjust ONS as needed to optimize intake at meals and promote weight gain. Lab / Micro Data Result Diagrams: 03/19/22 20:50 03/19/22 20:50 Physical Exam Const alert and oriented x3 Constitutional Narrative: Patient appears anxious and restless HEENT head/scalp atraumatic, moist oral mucous membranes and oropharynx normal Eyes EOMs intact bilaterally and conjunctivae normal Neck supple and no JVD Resp normal respiratory effort, no retractions, no use of accessory muscles and clear to auscultation bilaterally Cardio regular rate, regular rhythm, S1 normal heart sound, S2 normal heart sound, no murmurs and no rub GI normal to inspection, nondistended, normoactive bowel sounds, soft to palpation, non-tender and non-distended Extremity normal to inspection and no clubbing, cyanosis or edema Neuro oriented x3, CN's II-XII intact bilaterally, moves all extremities and no focal motor deficits Psych Mood & Affect: anxious Assessment & Plan Assessment/Plan (1) Acute alcohol withdrawal: PLAN: Plan 1. Acute alcohol withdrawal without DTs-patient will continue to receive his present medications, he will be reevaluated tomorrow for possible placement in an inpatient detox facility. #2 polysubstance abuse-complicates care, prognosis, and recovery Charges/Coding Visit Charges Inpatient E&M: 82196 Subs Hosp L2
[2022-03-21 22:00] VITALS: BP 117/80; PULSE 71; RESP 18; TEMP 36.6; O2SAT 98
[2022-03-22] MEDS: Phenobarbital 32.4 MG Tablet 64.8 MG PO ×2 (03:20→06:28)
[2022-03-22 04:00] VITALS: BP 113/79; PULSE 85; RESP 16; TEMP 36.6; O2SAT 99
--- NOTE | 2022-03-22 11:42 | PCM.PN.HOSP ---
Subjective Subjective Patient was seen and examined today, he appears somewhat sleepy today but he is appropriate when he answers questions. Arrangements are being made for him to go to an inpatient detox facility tomorrow. Objective Data Objective Data Vital Signs: Vital Signs Temp Pulse Resp BP Pulse Ox 97.8 F 85 16 113/79 99 03/22/22 04:00 03/22/22 04:00 03/22/22 04:00 03/22/22 04:00 03/22/22 04:00 Oxygen Delivery Method Room Air Weight: 55 kg Body Mass Index (BMI) 19.0 Intake & Output: Intake and Output for Last 24 Hours 03/20/22 03/21/22 03/22/22 23:59 23:59 23:59 Intake Total 300 / 300 Balance 300 / 300 Medical Nutrition Assessment Dietitian: Malnutrition Criteria Met Start: 03/20/22 16:04 Freq: Status: Active Protocol: Document 03/20/22 16:05 RMA (Rec: 03/20/22 16:05 RMA [id number]) Nutrition Malnutrition Evidence of Malnutrition Exists Yes Malnutrition (severe): Social/Behavioral/ Environmental Evidenced By Suboptimal Energy Intake ( Severe),Weight Loss (Severe), Physical Changes (Moderate) Clinical Problem Chronic Disease or Condition Related Malnutrition Etiology Severe protein-calorie malnutrition in the context of social circumstance related to ETOH abuse and inadequate oral intake Signs/Symptoms as evidenced by ~19% wt loss x past 12 months, BMI 19, PO meeting less than 50% estimated nutrition needs x past 6 months and moderate muscle/fat wasting visible in the face, eyes appear sunken in and clavicle is protruding Status Active Problem Recommendation Dietitian Recommendations/Changes Continue regular diet as ordered--will add extra 1-2 oz protein/meat Q meal. Continue ensure enlive w/ medpass as ordered. Adjust ONS as needed to optimize intake at meals and promote weight gain. Lab / Micro Data Result Diagrams: 03/19/22 20:50 03/19/22 20:50 Physical Exam Const alert, oriented x3 and no apparent distress Constitutional Narrative: Patient appears anxious and restless General Appearance: cooperative HEENT normocephalic, head/scalp atraumatic, hearing grossly normal bilaterally, moist oral mucous membranes and oropharynx normal Eyes PERRL, EOMs intact bilaterally and conjunctivae normal Neck no lymphadenopathy, supple and no JVD Resp normal respiratory effort, no retractions, no use of accessory muscles and clear to auscultation bilaterally Auscultation: Negative for crackles, rales, rhonchi or wheezes Cardio regular rate, regular rhythm, S1 normal heart sound, S2 normal heart sound, no murmurs, no rub, no gallops, no clicks and no JVD GI normal to inspection, nondistended, normoactive bowel sounds, soft to palpation, non-tender and non-distended; Negative for hepatosplenomegaly Palpation: hernia Extremity normal to inspection, full ROM and no clubbing, cyanosis or edema Extremity Narrative: Pedal pulses 2+ Neuro oriented x3, CN's II-XII intact bilaterally, moves all extremities and no focal motor deficits Neuro Narrative: lethargic Sensorium / Orientation: awake Speech: speech normal Motor Exam: strength 5/5 throughout Psych Mood & Affect: anxious Assessment & Plan Assessment/Plan (1) Acute alcohol withdrawal: PLAN: Plan 1. Acute alcohol withdrawal without DTs-patient will continue to receive his present medications, he most likely will be discharged to an inpatient detox facility tomorrow #2 polysubstance abuse-complicates care, prognosis, and recovery Charges/Coding Visit Charges Inpatient E&M: 33267 Subs Hosp L2
[2022-03-22 12:18] VITALS: BP 121/78; PULSE 88; RESP 13; TEMP 36.6; O2SAT 99
--- NOTE | 2022-03-22 14:36 | CHAPLAIN ---
Type of Pastoral Visit ___ Initial Visit _x__ Follow-up Visit ___ On-call Visit ___ General Patient Visit ___ Spiritual Assessment ___ Family Conference ___ Bereavement ___ Rapid Response ___ Code Blue ___ Other (describe below) Pastoral Care Referral From _x__ Patient ___ Family ___ Nurse ___ Physician ___ Museum Curator ___ Journalists And Other Writers ___ Other (describe below) Sacrament/Intervention ___ Active listening ___ Anointing ___ Temple ___ Bereavement ___ Communion ___ Isamar exploration ___ ___ Life review ___ Prayer ___ Reconciliation ___ Sacrament of Sick _x__ Supportive presence ___ Wedding ___ Other (describe below) Pastoral Comments patient totally covered in blankets and does not look out from them; pt is offered presence and support; pt states 'I'm ok and no other response
--- NOTE | 2022-03-22 15:40 | DS.PCM_ITS ---
Providers Date of Admission: 03/19/22 Date of Discharge: 03/22/22 Primary Care Physician: No Primary Care Phys Reason For Visit: ETOH DETOX Diagnosis Discharge Diagnosis (1) Acute alcohol withdrawal: Status: Inactive Plan 1. Acute alcohol withdrawal #2 chronic alcoholism #3 polysubstance abuse #4 severe protein and caloric malnutrition in the context of family welfare social work professor related to EtOH abuse as evidenced by approximate 19% weight loss over the past 12 months and p.o. intake meeting less than 50% of estimated nutritional needs x6 months and a moderate muscle/fat wasting visible in the face. Extra protein- 1 to 2 ounces was added with each meal, Ensure Enlive was continued. Medications at Discharge Home Medications NK 03/19/22 Hospital Course Operations None Procedures None Summary of Care Provided Minutes Spent on Discharge: 31 Hospital Course: This 46-year-old white male was seen in the emergency room at [facility] requesting services for alcohol detox. Labs were obtained, chemistry profile was unremarkable, patient's ethyl alcohol level was 4, and the patient CBC was unremarkable. Patient was admitted to [place] [address] for alcohol detox, orders were entered using the alcohol detox order set, and the patient was seen by addiction family welfare social work professor. Arrangements were made for the patient to be excepted into an inpatient detox facility. On 03/22/2022, patient was seen and examined: On examination he appeared in good health and spirits. Vital signs as documented. Skin warm and dry and without overt rashes. Neck without JVD, neck was supple, trachea midline, thyroid was normal. Lungs clear bilaterally, normal air movement was noted. Heart exam notable for regular rhythm, normal sounds and absence of murmurs, rubs or gallops. Abdomen unremarkable and without evidence of organomegaly, masses, or abdominal aortic enlargement. Bowel sounds are present, abdomen is not distend ed. Extremities nonedematous, no cyanosis was noted, no clubbing was noted. Neuro: Cranial nerves II through XII are grossly intact, no focal motor deficits were noted, sensation to light touch and pinprick intact, motor exam 5/5 throughout. Psych: Patient is alert and oriented x3, he appears nervous. In the afternoon of 03/22/2022, patient abruptly requested to be discharged, this was AMA. Weight / BMI Weight Weight: 55 kg Body Mass Index (BMI) 19.0 ABG / Lab / Microbiology Data Result Diagrams: 03/19/22 20:50 03/19/22 20:50 Meaningful Use Info Meaningful Use Diagnoses (Choose all that apply): None applicable Discharge Plan Admission Admit Date/Time: 03/19/22 22:01 Attending Provider: Nelson Mckeon Primary Care Provider: Care Physician,No Primary Consulting Providers: Trang Valencia ; Amparo Nguyen Discharge Orders/Prescriptions Prescriptions: No Action NK Referrals / Follow Up: Care Physician,No Primary [Primary Care Provider] - Disposition Disposition (needs filled in before D/C Order can be placed): Against Medical Advice Charges/Coding Visit Charges Inpatient E&M: 13523 Disch Hosp
--- NOTE | 2022-03-22 16:18 | NURSING ---
PT REFUSED HIS PHENOBARBITAL LAST NIGHT AND TODAY. THIS AFTERNOON, PT BECAME AGITATED AND DEMANDING HIS TOTES BE OPENED UP SO HE COULD SHAVE AND GET HIS STUFF. I CAME HERE VOLUNTARILY, I CAN HAVE MY STUFF. THIS NURSE TOLD HIM THAT HE CANNOT HAVE HIS BELONGING HE SIGNED THE AGREEMENT AND POINTED IT OUT TO HIM. HE STILL INSISTED THAT HIS TOTES BE OPENED. I ASKED IF HE WAS GOING TO LEAVE AND HE SAID YES, SO I TOLD HIM HE WOULD NEED TO SIGN AN AMA PAPER, HE AGREED. I SAW DR ARELLANO IN THE [place] AND TOLD HIM THAT PT WANTED HIS TOTES OPEN SO HE COULD LEAVE. DR ARELLANO WENT IN AND SPOKE W/PT BUT PT STILL WANTED TO LEAVE. AMA PAPER SIGNED.
== END 2022-03-22 15:30 | disposition left against medical advice (07) | DRG 770 ==
LOC: ED 20:57 → MS3 22:34
PROVIDERS: Admitting Provider Internal Medicine; Emergency Provider Emergency Medicine; Visit Provider Internal Medicine
DX: F10.239 Alcohol dependence with withdrawal, unspecified (principal); E43 Unspecified severe protein-calorie malnutrition; F15.10 Other stimulant abuse, uncomplicated; J43.9 Emphysema, unspecified; F19.230 Other psychoactive substance dependence with withdrawal, uncomplicated; I10 Essential (primary) hypertension; F41.9 Anxiety disorder, unspecified; F32.A Depression, unspecified; Z59.00 Homelessness unspecified; Z68.1 Body mass index [BMI] 19.9 or less, adult
CPT/HCPCS: 80053; 80307; 82077; 85025; 97802; 99282; A4216

== ENCOUNTER 2022-03-28 15:51 | Emergency (ER) | payer MEDICAID, SELFPAY ==
[2022-03-28] VITALS (7 sets, daily range): BP systolic 99–122; BP diastolic 71–82; PULSE 79–96; RESP 16–22; TEMP 36.8; O2SAT 96–98; BMI 18.8
--- NOTE | 2022-03-28 16:37 | EKG12_ITS ---
Test Reason : SOB Blood Pressure : / mmHG Vent. Rate : 085 BPM Atrial Rate : 085 BPM P-R Int : 118 ms QRS Dur : 094 ms QT Int : 364 ms P-R-T Axes : 074 060 062 degrees QTc Int : 433 ms Normal sinus rhythm Normal ECG Confirmed by MARILYNN WEI, CHARMAINE ([id number]), editorial specialist OMERO ROBLES ([id number]) on 03/30/2022 8:48:58 AM Referred By: DAVID Confirmed By:CHARMAINE SUBRAMANIAN MD
--- NOTE | 2022-03-28 16:38 | EX.ED.DYSGE1 ---
HPI History of Present Illness Chief Complaint: Shortness of Breath Informant: patient Onset/Context/Timing Onset: Days Narrative Narrative: Patient presents with shortness of breath and chest pain, cough, body aches, subjective fever. Symptoms have been ongoing for the past couple of days. He called EMS today due to increased shortness of breath. He was giving a breathing treatment in route and states his breathing is improving. He has had inhalers at home in the past but does not have one currently. He denies known history of COPD. He did have COVID previously. He also received the 2 shot vaccine plus booster. [facility] Medical History Active substance abuse Alcohol abuse Anxiety Asthma Bulla of lung Depression GERD (gastroesophageal reflux disease) Hypertension Inguinal hernia bilateral, non-recurrent Methamphetamine abuse Non-smoker Stroke/cerebrovascular accident Substance abuse Home Medications albuterol sulfate 90 mcg/actuation aerosol inhaler (Ventolin HFA) 2 puff inhalation Q4H PRN PRN Wheezing ##1 03/28/22 [Rx Last Taken Unknown] doxycycline monohydrate 100 mg capsule 100 mg PO BID #20 caps 03/28/22 [Rx Last Taken Unknown] prednisone 20 mg tablet 40 mg PO DAILY #8 tabs 03/28/22 [Rx Last Taken Unknown] Allergy/AdvReac Type Severity Reaction Status Date / Time No Known Allergies Allergy Verified 03/28/22 15:55 Family History Father Alcoholism Surgical History History of ankle surgery Social History housing: homeless Smoking Status: Never smoker alcohol intake: current substance use type: methamphetamine ROS ROS ED Constitutional Constitutional ED: Reports fever(s) and subjective; Denies chills Eyes Eyes: Denies change in vision or discharge from eye(s) ENT ENT ED: Denies discharge from eye(s), rhinorrhea or sore throat Cardiovascular Cardiovascular: Reports chest pain; Denies palpitations Respiratory/Chest Respiratory/Chest: Reports cough, dyspnea and sputum Gastrointestinal Gastrointestinal: Denies abdominal pain, diarrhea, nausea or vomiting Genitourinary Genitourinary ED: Denies difficulty urinating or dysuria Musculoskeletal Musculoskeletal: Reports myalgias; Denies back pain Integumentary Denies Abrasions or rash Neurologic Neurologic: Reports headache(s); Denies weakness Allergic/Immunologic Allergic/Immunologic ED: Denies lip swelling or urticaria EXAM Physical Exam Const Vital Signs: 03/28/22 15:53 03/28/22 16:24 03/28/22 16:26 Temperature 98.3 F Temperature Source Temporal Pulse Rate 96 90 Respiratory Rate 22 H 19 H Respiratory Effort Normal Non-Labored Blood Pressure 104/79 Blood Pressure Mean 87 Pulse Ox 97 98 Oxygen Delivery Method Room Air Room Air Room Air 03/28/22 16:53 03/28/22 17:45 Temperature Temperature Source Pulse Rate 85 87 Respiratory Rate 18 20 H Respiratory Effort Blood Pressure 122/82 H Blood Pressure Mean 95 Pulse Ox 96 Oxygen Delivery Method Room Air Positive well nourished and well developed General Appearance ED: well developed HEENT Reports normocephalic and head/scalp atraumatic Eyes PERRL and EOMs intact bilaterally Neck supple Chest Wall inspection of chest normal and palpation of chest normal Resp normal respiratory effort Resp Narrative: Mild expiratory wheezes. Cardio regular rate and regular rhythm GI non-tender Palpation: soft Back/Spine no CVA tenderness Extremity normal to inspection Neuro oriented x3 and no sensory deficits noted Sensorium / Orientation: alert Motor Exam: strength 5/5 throughout Psych mental status grossly normal Skin no rashes or lesions noted MDM [facility] Lab Data Lab results narrative: Additional breathing treatments given. Patient given Solu-Medrol and Toradol. Lab work and chest x-ray obtained. Labs: Laboratory Results - last 24 hr 03/28/22 03/28/22 17:25 17:25 WBC 9.0 RBC 4.54 L Hgb 14.4 Hct 42.3 MCV 93.2 MCH 31.7 MCHC 34.0 RDW Std Deviation 41.4 RDW Coeff of Bridger 12.0 Plt Count 244 MPV 9.0 Immature Gran % (Auto) 0.300 Neut % (Auto) 76.5 H Lymph % (Auto) 11.7 L Petroleum % (Auto) 5.3 Eos % (Auto) 5.9 H Baso % (Auto) 0.3 Absolute Neuts (auto) 6.9 Absolute Lymphs (auto) 1.05 Nucleated RBC % 0 Sodium 136 Potassium 3.8 Chloride 101 Carbon Dioxide 29.0 Anion Gap 6 BUN 20 H Creatinine 0.85 Estim Creat Clear Calc 83.60 Est GFR (MDRD) Af Amer 125 Est GFR (MDRD) Non-Af 103 BUN/Creatinine Ratio 23.5 H Glucose 95 Calcium 8.5 Radiography Chest X-Ray - ED: 1 View, Read by ED Physician and Chronic Changes Diagnostic Testing: Clinical Impression(s) from Imaging Studies Chest X-Ray 03/28/22 17:45 IMPRESSION: 1. No interval change since the previous studies of 09/20/2020 and 09/24/2016. 2. Fibrosis or pleural thickening in the lateral aspect of the apical segment of the right upper lobe. 3. No current evidence of active cardiopulmonary disease. 4. No pneumonia, pneumonitis, or bronchitis. No hyperinflation. Electronically Signed: River Segura MD at 18:04 EDT , EKG Initial EKG: Interpretation: Sinus Rhythm (Sinus at 85 with no acute ischemia.) Treatment and Re-Evaluation Narrative: On repeat evaluation patient sleeping comfortably. O2 sats are in the mid 90s. He continues to have some rales on auscultation but no wheezing noted at this time. Patient begin a prescription for albuterol inhaler, prednisone, doxycycline. Although he is never been diagnosed with COPD I suspect he does have underlying COPD. Return instructions provided. Discharge Plan Triage Chief Complaint: Shortness of Breath ED Provider: Xenia Hall Dx/Rx/DC Orders Clinical Impression: Acute bronchitis with bronchospasm Instructions: ED Bronchitis with Wheezing (Adult) Prescriptions: New prednisone 20 mg tablet 40 mg PO DAILY Qty: 8 0RF doxycycline monohydrate 100 mg capsule 100 mg PO BID Qty: 20 0RF albuterol sulfate [Ventolin HFA] 90 mcg/actuation HFA aerosol inhaler 2 puff inhalation Q4H PRN PRN (Reason: Wheezing) Qty: 1 0RF Primary Care Provider: Care Physician,No Primary Referrals: Nelson Ferguson DO [STAFF PHYSICIAN] - 1-2 Weeks Care Physician,No Primary [Primary Care Provider] - Disposition Disposition: Home, Self Care
[2022-03-28] MEDS: Ipratropium/Albuterol Sulfate 3 ML AMPUL.NEB INHALATION (16:53)
[2022-03-28 17:35] LABS: Absolute Lymphocyte Count 1.05 X10^3/uL (0.83-4.51); Absolute Neutrophil Count 6.9 X10^3/uL (2.0-7.7); Basophil# 0.03 X10^3/uL; Basophil% 0.3 % (0-1); Eosinophil# 0.53 X10^3/uL; Eosinophils% 5.9 % (0-5); Hematocrit 42.3 % (40-54); Hemoglobin 14.4 g/dL (13.0-16.5); Lymphocyte # 1.05 X10^3/ul (0.83-4.51); Lymphocyte % 11.7 % (19-41); Mean Corpuscular Hgb 31.7 pg (27.0-32.0); Mean Corpuscular Volume 93.2 fL (80-94); Monocyte# 0.48 X10^3/uL; Monocyte% 5.3 % (0-10); NRBC Flagged by Analyzer 0 % (0-5); Neutrophil # 6.89 X10^3/uL (2.7-7.7); Neutrophil % 76.5 % (47-70); Platelet Count 244 K/mm3 (150-450); RBC Distribution Width SD 41.4 fl (35.1-43.9); Red Blood Count 4.54 M/mm3 (4.6-6.2)
[2022-03-28] MEDS: 0.9% Normal Saline 1,000 ML 150 ML IV (17:42)
[2022-03-28] MEDS: Ketorolac 30 MG/ML Syringe IV (17:42)
[2022-03-28] MEDS: MethylPREDNISolone 125 MG/2 ML Vial 100 MG IV (17:43)
--- NOTE | 2022-03-28 17:45 | RAD_ITS ---
STUDY: PORTABLE AP UPRIGHT CHEST X-RAY OF 1743 HOURS ON 03/28/2022 REASON FOR EXAM: 46-year-old male with shortness of breath. TECHNIQUE: A single view portable AP upright chest x-ray was performed per protocol. COMPARISON: 09/20/2020., 09/24/2016. FINDINGS: Normal osseous structures. There is a small area of probable fibrosis or pleural thickening in the lateral aspect of the apical segment of the right upper lobe that is unchanged since 09/24/2016. There is no evidence of other infiltrates, atelectasis, effusion, pulmonary mass lesions. There is no pneumothorax or hemothorax. There is no pulmonary contusion. No cardiomegaly is present. There are no findings of an pneumonia, pneumonitis, bronchitis, or pulmonary mass lesion. There is no evidence of hyperinflation. There is no evidence of subdiaphragmatic abnormalities. There is evidence of interval change since the previous studies of 09/20/2020 and 09/24/2016. RAD/Chest 1 View (Portable) IMPRESSION: 1. No interval change since the previous studies of 09/20/2020 and 09/24/2016. 2. Fibrosis or pleural thickening in the lateral aspect of the apical segment of the right upper lobe. 3. No current evidence of active cardiopulmonary disease. 4. No pneumonia, pneumonitis, or bronchitis. No hyperinflation. Electronically Signed: River Segura MD at 18:04 EDT ,
[2022-03-28 17:51] LABS: Anion Gap 6 (5-15); BUN 20 mg/dL (7-18); BUN/Creat Ratio 23.5 RATIO (10-20); Calcium,Total 8.5 mg/dL (8.5-10.1); Chloride 101 mmol/L (98-107); Creatinine, Serum 0.85 mg/dL (0.70-1.30); EST Glomerular Filtration Rate 103 mL/min (>60); Est Glom Filt Rate - Afr Amer 125 mL/min (>60); Glucose 95 mg/dL (74-106); Potassium 3.8 mmol/L (3.5-5.1); Sodium Level 136 mmol/L (136-145)
== END 2022-03-28 19:52 | disposition home or self-care (01) ==
PROVIDERS: Emergency Provider Emergency Medicine; Visit Provider Emergency Medicine
DX: J20.9 Acute bronchitis, unspecified (principal); J43.9 Emphysema, unspecified; F15.10 Other stimulant abuse, uncomplicated; J45.909 Unspecified asthma, uncomplicated; I10 Essential (primary) hypertension; K21.9 Gastro-esophageal reflux disease without esophagitis; Z20.822 Contact with and (suspected) exposure to COVID-19; F32.A Depression, unspecified; F41.9 Anxiety disorder, unspecified; Z59.00 Homelessness unspecified; Z86.16 Personal history of COVID-19; Z86.73 Personal history of transient ischemic attack (TIA), and cerebral infarction without residual deficits
CPT/HCPCS: 71045; 80048; 85025; 87428; 93005; 94640; 96361; 96374; 96375; 99285; J7030; A4216

== ENCOUNTER 2022-05-23 23:21 | Observation (INO) | payer MEDICAID, SELFPAY ==
[2022-05-23 23:21] VITALS: BP 129/81; PULSE 92; RESP 16; TEMP 35.9; O2SAT 97; BMI 18.8
--- NOTE | 2022-05-23 23:42 | EDS_ITS ---
HPI History of Present Illness Chief Complaint: Substance Abuse Informant: patient Onset/Context/Timing Onset: Today Context: Gradual Onset Timing: Continuous Worsened by: Nothing Relieved by: Nothing Associated Symptoms Associated Symptoms: Positive for fever* and tremor; Negative for vomiting*, diarrhea*, rash*, seizure, palpatations, change in mental status, suicidal ideation or homicidal ideation Narrative Narrative: Patient presents requesting detox from alcohol. Patient states he drinks 2-3 beers per day but states they are 24 ounce beers. Patient states his last drink was approximate 1 to 2 hours ago. Patient states he went through detox here approximately 2 months ago and started drinking 1 to 2 days after he was discharged. Patient states he drinks daily. Patient denies any seizures or palpitations. Patient denies any suicidal homicidal ideations. Patient admits to some subjective fevers but did not take his temperature. Patient also admits to some rhinorrhea. Prior similar symptoms: Yes PFSH PFSH Medical History Active substance abuse Alcohol abuse Anxiety Asthma Bulla of lung Depression Desire for detoxification GERD (gastroesophageal reflux disease) Hypertension Inguinal hernia bilateral, non-recurrent Methamphetamine abuse Non-smoker Stroke/cerebrovascular accident Substance abuse Home Medications albuterol sulfate 90 mcg/actuation aerosol inhaler (Ventolin HFA) 2 puff inhalation Q4H PRN PRN Wheezing ##1 03/28/22 [Rx Last Taken Unknown] doxycycline monohydrate 100 mg capsule 100 mg PO BID #20 caps 03/28/22 [Rx Last Taken Unknown] prednisone 20 mg tablet 40 mg PO DAILY #8 tabs 03/28/22 [Rx Last Taken Unknown] Allergy/AdvReac Type Severity Reaction Status Date / Time No Known Allergies Allergy Verified 05/23/22 23:23 Family History Father Alcoholism Surgical History History of ankle surgery Social History housing: homeless Smoking Status: Never smoker alcohol intake: current substance use type: methamphetamine ROS ROS ED Constitutional Constitutional ED: Reports fever(s) and subjective; Denies chills Eyes Eyes: Denies blurry vision or change in vision ENT ENT ED: Reports rhinorrhea; Denies sore throat Cardiovascular Cardiovascular: Denies chest pain or palpitations Respiratory/Chest Respiratory/Chest: Denies cough or dyspnea Gastrointestinal Gastrointestinal: Reports nausea; Denies vomiting Genitourinary Genitourinary ED: Denies dysuria or hematuria Musculoskeletal Musculoskeletal: Denies back pain or neck pain Integumentary Denies abscess or rash Neurologic Neurologic: Denies headache(s) or weakness Allergic/Immunologic Allergic/Immunologic ED: Denies mouth swelling or urticaria EXAM Physical Exam Const Vital Signs: 05/23/22 23:21 Temperature 96.6 F L Temperature Source Temporal Pulse Rate 92 Respiratory Rate 16 Blood Pressure 129/81 H Blood Pressure Mean 97 Pulse Ox 97 Oxygen Delivery Method Room Air Positive well nourished and well developed General Appearance ED: well developed HEENT Reports moist mucous membranes Neck supple and no JVD Resp normal respiratory effort and clear to auscultation bilaterally Cardio regular rate, regular rhythm and no murmurs GI normal to inspection, nondistended, normoactive bowel sounds and non-tender Palpation: soft Extremity normal to inspection General Extremety ED: Negative for edema or tenderness General Extremity: Negative for edema Neuro oriented x3, CN's II-XII intact bilaterally and no sensory deficits noted Sensorium / Orientation: alert Motor Exam: strength 5/5 throughout Psych mental status grossly normal Activity / Motor Behavior: fidgetting and restless Speech: soft Mood & Affect: anxious Thought Content: No suicidality and No homicidality Skin no rashes or lesions noted MDM MDM MDM Narrative Medical decision making narrative: CBC was within normal limits. Comprehensive metabolic profile shows a slightly elevated AST of 39 and ALT of 66 but was otherwise within normal limits. Urine tox screen was positive for MDMA, amphetamines, and opiates. Serum alcohol level was less than 3. Case was discussed with the hospitalist. He will admit the patient to his service. Patient understood and was agreeable with the plan. All questions were answered. Lab Data Attestation: I reviewed the patient's lab results. Labs: Laboratory Results - last 24 hr 05/24/22 05/24/22 05/24/22 00:05 00:05 00:05 WBC 6.0 RBC 4.22 L Hgb 13.1 Hct 38.4 L MCV 91.0 MCH 31.0 MCHC 34.1 RDW Std Deviation 41.7 RDW Coeff of Bridger 12.8 Plt Count 300 MPV 8.5 Immature Gran % (Auto) 0.300 Neut % (Auto) 67.5 Lymph % (Auto) 20.6 Alexander % (Auto) 4.9 Eos % (Auto) 6.2 H Baso % (Auto) 0.5 Absolute Neuts (auto) 4.0 Absolute Lymphs (auto) 1.23 Nucleated RBC % 0 Sodium 140 Potassium 3.8 Chloride 107 Carbon Dioxide 28.0 Anion Gap 5 BUN 22 H Creatinine 1.01 Estim Creat Clear Calc 70.36 Est GFR (MDRD) Af Amer 102 Est GFR (MDRD) Non-Af 84 BUN/Creatinine Ratio 21.8 H Glucose 117 H Calcium 8.9 Total Bilirubin 0.50 AST 39 H ALT 66 H Alkaline Phosphatase 57 Total Protein 8.0 Albumin 3.8 Globulin 4.2 Albumin/Globulin Ratio 0.9 Urine Opiates Screen Urine Methadone Screen Ur Barbiturates Screen Ur Phencyclidine Scrn Ur Amphetamines Screen MDMA (Ecstasy) Screen U Benzodiazepines Scrn Urine Cocaine Screen U Cannabinoids Screen Ur Drug Screen Comment Ethyl Alcohol < 3.0 05/24/22 00:10 WBC RBC Hgb Hct MCV MCH MCHC RDW Std Deviation RDW Coeff of Bridger Plt Count MPV Immature Gran % (Auto) Neut % (Auto) Lymph % (Auto) Alexander % (Auto) Eos % (Auto) Baso % (Auto) Absolute Neuts (auto) Absolute Lymphs (auto) Nucleated RBC % Sodium Potassium Chloride Carbon Dioxide Anion Gap BUN Creatinine Estim Creat Clear Calc Est GFR (MDRD) Af Amer Est GFR (MDRD) Non-Af BUN/Creatinine Ratio Glucose Calcium Total Bilirubin AST ALT Alkaline Phosphatase Total Protein Albumin Globulin Albumin/Globulin Ratio Urine Opiates Screen POSITIVE H Urine Methadone Screen NEGATIVE Ur Barbiturates Screen NEGATIVE Ur Phencyclidine Scrn NEGATIVE Ur Amphetamines Screen POSITIVE H MDMA (Ecstasy) Screen POSITIVE H U Benzodiazepines Scrn NEGATIVE Urine Cocaine Screen NEGATIVE U Cannabinoids Screen NEGATIVE Ur Drug Screen Comment Ethyl Alcohol Discharge Plan Triage Chief Complaint: Substance Abuse ED Provider: Graham Messina Dx/Rx/DC Orders Clinical Impression: Alcohol withdrawal, Substance abuse, Desire for detoxification Prescriptions: No Action prednisone 20 mg tablet 40 mg PO DAILY Qty: 8 0RF doxycycline monohydrate 100 mg capsule 100 mg PO BID Qty: 20 0RF albuterol sulfate [Ventolin HFA] 90 mcg/actuation HFA aerosol inhaler 2 puff inhalation Q4H PRN PRN (Reason: Wheezing) Qty: 1 0RF Primary Care Provider: Care Physician,No Primary Referrals: Care Physician,No Primary [Primary Care Provider] - Disposition Disposition: Acute Care Hospital [facility]
[2022-05-24] VITALS (7 sets, daily range): BP systolic 108–126; BP diastolic 70–88; PULSE 63–90; RESP 11–16; TEMP 36.4–36.8; O2SAT 96–99; BMI 18.8
[2022-05-24 00:19] LABS: Absolute Lymphocyte Count 1.23 X10^3/uL (0.83-4.51); Basophil# 0.03 X10^3/uL; Basophil% 0.5 % (0-1); Eosinophil# 0.37 X10^3/uL; Eosinophils% 6.2 % (0-5); Hematocrit 38.4 % (40-54); Hemoglobin 13.1 g/dL (13.0-16.5); Lymphocyte # 1.23 X10^3/ul (0.83-4.51); Lymphocyte % 20.6 % (19-41); Mean Corp Hgb Conc 34.1 g/dL (32-36); Mean Platelet Vol. 8.5 fl (6.2-12.0); Monocyte# 0.29 X10^3/uL; Monocyte% 4.9 % (0-10); NRBC Flagged by Analyzer 0 % (0-5); Neutrophil # 4.02 X10^3/uL (2.7-7.7); Neutrophil % 67.5 % (47-70); Platelet Count 300 K/mm3 (150-450); RBC Distribution Width CV 12.8 % (11.6-14.6); RBC Distribution Width SD 41.7 fl (35.1-43.9); Red Blood Count 4.22 M/mm3 (4.6-6.2)
--- NOTE | 2022-05-24 00:31 | HP.PCM.HOS_ITS ---
HPI - General General Date of Admission: 05/24/22 Date of Service: 05/24/22 Chief Complaint: Desire for detoxification HPI Narrative MICHALE KAUR, is a 46 M with a significant history of alcoholism and polysubstance abuse who presents to the emergency department for help with alcohol detoxification. Reportedly patient has been drinking alcohol for about 15 years. He report at one time he was ordered by courts to go for rehabilitation. Patient has been to our hospital multiple times for rehabilitation. Reportedly he drinks about 4-6 beers. At the time of presentation he had no withdrawal symptoms Of note patient was admitted into our detox program on 03/19/2021. However he left AMA on 03/22/2022. Of note patient also smokes marijuana which unknowingly may be laced with methamphetamine. [facility] Medical History Active substance abuse Alcohol abuse Anxiety Asthma Bulla of lung Depression Desire for detoxification GERD (gastroesophageal reflux disease) Hypertension Inguinal hernia bilateral, non-recurrent Methamphetamine abuse Non-smoker Stroke/cerebrovascular accident Substance abuse Home Medications albuterol sulfate 90 mcg/actuation aerosol inhaler (Ventolin HFA) 2 puff inhalation Q4H PRN PRN Wheezing ##1 03/28/22 [Rx Last Taken Unknown] doxycycline monohydrate 100 mg capsule 100 mg PO BID #20 caps 03/28/22 [Rx Last Taken Unknown] prednisone 20 mg tablet 40 mg PO DAILY #8 tabs 03/28/22 [Rx Last Taken Unknown] Allergy/AdvReac Type Severity Reaction Status Date / Time No Known Allergies Allergy Verified 05/23/22 23:23 Family History Father Alcoholism Surgical History History of ankle surgery Social History housing: homeless Smoking Status: Never smoker alcohol intake: current substance use type: methamphetamine ROS ROS Narrative Pertinent positives and pertinent negatives as noted in HPI. All other systems were reviewed and are negative Vital Signs Vital Signs Vital Signs: 05/23/22 23:21 Temperature 96.6 F L Temperature Source Temporal Pulse Rate 92 Respiratory Rate 16 Blood Pressure 129/81 H Blood Pressure Mean 97 Pulse Ox 97 Oxygen Delivery Method Room Air Weight Weight: 54.431 kg Body Mass Index (BMI) 18.8 Physical Exam Narrative Physical exam: General: Well-nourished, well-developed. Head: Normocephalic, atraumatic, no tenderness Eyes: Vision is grossly intact. EOMI ENT, no trauma, moist mucous membranes, no rhinorrhea Neck: Nontender, full range of motion, no spinal tenderness, deformities, step- off CVS: Regular rate and rhythm. S1-S2 present. No murmur, gallop or rub. Respiratory : clear to auscultation bilaterally, chest wall nontender, no wheezing Abdomen: Soft, nontender, nondistended, normal bowel sounds, no masses : Deferred Back: Nontender, no CVA tenderness, no midline spinal tenderness, deformities, step-offs Extremities: Nontender full range of motion, no trauma Skin: Normal color, no trauma, abrasions Neuro: Alert, oriented, cranial nerves II through XII grossly intact; stuttering. Psychiatry: Normal mood. Normal affect. Not depressed. Not anxious. Results Lab / Micro Data Attestation: I reviewed the patient's lab results. Result Diagrams: 05/24/22 00:05 05/24/22 00:05 Labs: Laboratory Results - last 24 hr 05/24/22 00:05: WBC 6.0, RBC 4.22 L, Hgb 13.1, Hct 38.4 L, MCV 91.0, MCH 31.0, MCHC 34.1, RDW Std Deviation 41.7, RDW Coeff of Bridger 12.8, Plt Count 300, MPV 8.5, Immature Gran % (Auto) 0.300, Neut % (Auto) 67.5, Lymph % (Auto) 20.6, Posey % (Auto) 4.9, Eos % (Auto) 6.2 H, Baso % (Auto) 0.5, Absolute Neuts (auto) 4.0, Absolute Lymphs (auto) 1.23, Nucleated RBC % 0 05/24/22 00:10: Ur Drug Screen Comment Assessment & Plan Assessment/Plan (1) Desire for detoxification: (2) Alcoholism: (3) Substance abuse: PLAN: Plan Alcohol dependence and desire for detoxification Ethanol level on presentation was less than 3 Patient will be started on phenobarbital and other adjunctive medications: Gabapentin as needed; dicyclomine as needed; Vistaril as needed; Imodium as needed; trazodone as needed; Zofran as needed; scheduled thiamine; and schedule folic acid. Monitor CIWA score Polysubstance abuse Toxicology positive for opiates, amphetamines, and ecstasy. Counseled DVT prophylaxis Low risk Encourage to ambulate Charges/Coding Visit Charges Inpatient E&M: 01670 Init Hosp L2
[2022-05-24 00:33] LABS: Amphetamine Urine VISTA POSITIVE (<1000 ng/mL); Barbiturate Urine VISTA NEGATIVE (< 200 ng/mL); Benzodiazepine Urine VISTA NEGATIVE (< 200 ng/mL); Cocaine Urine VISTA NEGATIVE (< 300 ng/mL); Ecstacy Urine VISTA POSITIVE (< 500 ng/mL); Methadone Urine VISTA NEGATIVE (< 300 ng/mL); PCP Urine VISTA NEGATIVE (< 25 ng/mL); THC Urine VISTA NEGATIVE (< 50 ng/mL); Vista UDS pH Range 5
[2022-05-24 00:35] LABS: ALB/GLOB Ratio 0.9 RATIO (0.9-2.4); AST(SGOT) 39 U/L (15-37); Alanine Aminotransfer ALT/SGPT 66 U/L (16-61); Albumin, Serum 3.8 g/dL (3.2-5.0); Alkaline Phosphatase 57 U/L (45-117); Anion Gap 5 (5-15); BUN 22 mg/dL (7-18); BUN/Creat Ratio 21.8 RATIO (10-20); Calcium,Total 8.9 mg/dL (8.5-10.1); Chloride 107 mmol/L (98-107); Creatinine, Serum 1.01 mg/dL (0.70-1.30); EST Glomerular Filtration Rate 84 mL/min (>60); Est Glom Filt Rate - Afr Amer 102 mL/min (>60); Estimated Creatinine Clearance 70.36 ml/min; Globulin 4.2 g/dL (2.2-4.2); Glucose 117 mg/dL (74-106); Potassium 3.8 mmol/L (3.5-5.1); Sodium Level 140 mmol/L (136-145)
[2022-05-24 00:42] LABS: Alcohol, Blood (Medical)-Serum < 3.0 mg/dL
[2022-05-24] MEDS: Phenobarbital 32.4 MG Tablet 64.8 MG PO ×6 (03:37→21:51)
[2022-05-24] MEDS: 0.9% Saline Lock 10 ML Syringe IV ×2 (03:43→21:50)
--- NOTE | 2022-05-24 06:42 | NURSING ---
all documentation completed by Paradise MA reviewed by this RN
--- NOTE | 2022-05-24 09:27 | PCM.HOSP.N ---
Hospitalist Note Patient is a 46-year-old gentleman with history of polysubstance dependence including alcohol admitted with acute alcohol withdrawal. Patient has been admitted to regular nursing floor currently undergoing medical stabilization Patient seen and examined, initial assessment including history and physical diagnostic data and management orders reviewed will follow
[2022-05-24] MEDS: Folic Acid 1 MG Tablet PO (10:02)
[2022-05-24] MEDS: Thiamine Hydrochloride 100 MG Tablet PO (10:02)
--- NOTE | 2022-05-24 15:11 | ADDICTION ---
This casualty underwriter met with PT to conduct ASAM, MSE, AUDIT, DUDIT assessments and to plan for d/c. PT A+Ox4 and participated actively. All assessments completed and d/c plan placed in PT's chart. PT reports that he is willing to go to residential. Pt has been admitted for [facility] related admissions 15x with no follow up treatment and several AMA's. Pt will be placed on a Care Plan and will be required to complete residential treatment in order to receive RAMP services. This worker is currently working on residential placement.
--- NOTE | 2022-05-24 15:56 | CHAPLAIN ---
Type of Pastoral Visit _x__ Initial Visit ___ Follow-up Visit ___ On-call Visit ___ General Patient Visit ___ Spiritual Assessment ___ Family Conference ___ Bereavement ___ Rapid Response ___ Code Blue ___ Other (describe below) Pastoral Care Referral From _x__ Patient ___ Family ___ Nurse ___ Physician ___ Strapper Operator ___ Button Facing Machine Operator ___ Other (describe below) Sacrament/Intervention ___ Active listening ___ Anointing ___ Jainism ___ Bereavement ___ Communion ___ Isamar exploration ___ ___ Life review ___ Prayer ___ Reconciliation ___ Sacrament of Sick _x__ Supportive presence ___ Wedding ___ Other (describe below) Pastoral Comments patient has been seen and has interacted numerous times with this military communications specialist in prior admissions; pt pulls up sheets over his head when door is opened by this military communications specialist; when introduced self the patient reveals his face; pt states thank you for coming and I need to rest now; pt offered return visit tomorrow and patient agrees to this
[2022-05-25 03:10] VITALS: BP 116/79; PULSE 79; RESP 16; TEMP 36.5; O2SAT 97
[2022-05-25] MEDS: Phenobarbital 32.4 MG Tablet 64.8 MG PO ×6 (03:12→21:48)
[2022-05-25 09:10] VITALS: BP 128/77; PULSE 81; RESP 16; TEMP 36.6; O2SAT 98
[2022-05-25] MEDS: Folic Acid 1 MG Tablet PO (10:10)
[2022-05-25] MEDS: Thiamine Hydrochloride 100 MG Tablet PO (10:11)
--- NOTE | 2022-05-25 10:24 | ADDICTION ---
Patient was approved for [facility]. [facility] will provide transportation between 10:30am and 1:30pm.
--- NOTE | 2022-05-25 10:33 | CASEMGMT ---
Per Keren at [facility], pt will be picked up for residential treatment between [id number] today and she will come talk to pt prior to d/c. Natalie-training manager, Viky-clinical secretary, and Shawn-FRANCESCA updated, voice understanding. Saadia MA CM
--- NOTE | 2022-05-25 11:01 | DCINST_ITS ---
Discharge Instructions Diet Discharge Diet: No restrictions Activity Discharge Activity: Return to Normal Activity Weight Bearing Status: Full weight bearing Follow Up Care Test Results: Test results from this visit will be discussed in further detail at your follow- up appointment, if applicable. Discharge Plan Admission Admit Date/Time: 05/24/22 00:28 Primary Reason for Your Visit: alcohol detox Attending Provider: Nelson Mckeon Primary Care Provider: Care Physician,No Primary Consulting Providers: Jerome Lu ; Jaquan Mabry Discharge Orders/Prescriptions Prescriptions: Continued albuterol sulfate [ProAir HFA] 90 mcg/actuation HFA aerosol inhaler 2 puff INHALATION Q4H PRN PRN (Reason: Shortness Of Breath) Referrals / Follow Up: Care Physician,No Primary [Primary Care Provider] - Disposition Disposition (needs filled in before D/C Order can be placed): DC/Tx to Another Type of HCF
--- NOTE | 2022-05-25 11:15 | NURSING ---
Transport called stating that they are unable to transport pt today and would need to set up for tomorrow. Called Keren at 180, left voicemail asking for call back regarding transport. SW updated.
--- NOTE | 2022-05-25 11:22 | PHA.DC.MR ---
Pharmacy Service has performed discharge medication reconciliation for this patient. The patient's discharge medication list was reviewed for discrepancies and discrepancies were resolved. Home Medications albuterol sulfate 90 mcg/actuation aerosol inhaler (ProAir HFA) 2 puff inhalation Q4H PRN PRN Shortness Of Breath 05/24/22
--- NOTE | 2022-05-25 12:01 | CHAPLAIN ---
Type of Pastoral Visit ___ Initial Visit _x__ Follow-up Visit ___ On-call Visit ___ General Patient Visit ___ Spiritual Assessment ___ Family Conference ___ Bereavement ___ Rapid Response ___ Code Blue ___ Other (describe below) Pastoral Care Referral From _x__ Patient ___ Family ___ Nurse ___ Physician ___ Blade Filer ___ Outpatient Facility Physical Therapist ___ Other (describe below) Sacrament/Intervention ___ Active listening ___ Anointing ___ Zoroastrianism ___ Bereavement ___ Communion ___ Isamar exploration ___ ___ Life review ___ Prayer ___ Reconciliation ___ Sacrament of Sick _x__ Supportive presence ___ Wedding ___ Other (describe below) Pastoral Comments returned to see this patient today after his comment yesterday of 'come back tomorrow'; pt turns away and covers his head when the door is opened; introduction again to patient and offer of presence, support, and care; pt states in a very low voice I am tired and when asked if he would prefer to have some company or to be left alone the patient said alone; offer of support given if pt changes his mind
--- NOTE | 2022-05-25 12:36 | PCM.DC.SUM ---
Providers Date of Admission: 05/24/22 Date of Discharge: 05/25/22 Primary Care Physician: Gayathri Primary Care Phys Reason For Visit: DESIRE FOR DETOXIFICATION Diagnosis Discharge Diagnosis (1) Desire for detoxification: Status: Acute (2) Alcoholism: Status: Chronic Code(s): F10.20 - Alcohol dependence, uncomplicated (3) Substance abuse: Status: Acute Code(s): F19.10 - Other psychoactive substance abuse, uncomplicated Medications at Discharge Home Medications albuterol sulfate 90 mcg/actuation aerosol inhaler (ProAir HFA) 2 puff inhalation Q4H PRN PRN Shortness Of Breath 05/24/22 Medical Records Data Medical Nutrition Assessment Dietitian: Malnutrition Criteria Met Start: 05/24/22 11:25 Freq: Status: Active Protocol: Document 05/24/22 11:25 RMA (Rec: 05/24/22 11:25 RMA [id number]) Nutrition Malnutrition Evidence of Malnutrition Exists Yes Malnutrition (severe): Social/Behavioral/ Environmental Evidenced By Suboptimal Energy Intake ( Severe),Weight Loss (Severe), Physical Changes (Moderate) Clinical Problem Chronic Disease or Condition Related Malnutrition Etiology Severe protein-calorie malnutrition in the context of social circumstance related to inadequate oral intake and excessive alcohol intake Signs/Symptoms as evidenced by ~15% wt loss x 6 months, BMI 18.9, muscle/ fat loss in the face and clavicle region and oral intake meeting less than 50% estimated nutrition needs x past 6 months Status Active Problem Recommendation Dietitian Recommendations/Changes Will continue regular diet as ordered. Will continue ensure enlive w/ medpass. Will add 240ml ensure clear w/ breakfast and magic cup w/ lunch and dinner. Adjust ONS as needed to optimize intake and replete calories/protein. Weight / BMI Weight Weight: 54.7 kg Body Mass Index (BMI) 18.8 ABG / Lab / Microbiology Data Result Diagrams: 05/24/22 00:05 05/24/22 00:05 D/C Instructions Discharge Diet: No restrictions Weight Bearing Status: Full weight bearing Discharge Plan Admission Admit Date/Time: 05/24/22 00:28 Primary Reason for Your Visit: alcohol detox Attending Provider: Nelson Mckeon Primary Care Provider: Care Physician,No Primary Consulting Providers: Jerome Lu ; Jaquan Mabry Discharge Orders/Prescriptions Prescriptions: Continued albuterol sulfate [ProAir HFA] 90 mcg/actuation HFA aerosol inhaler 2 puff INHALATION Q4H PRN PRN (Reason: Shortness Of Breath) Referrals / Follow Up: Care Physician,No Primary [Primary Care Provider] - Disposition Disposition (needs filled in before D/C Order can be placed): DC/Tx to Another Type of HCF
--- NOTE | 2022-05-25 12:50 | NURSING ---
Received call from provide a ride, transport will be here at 1820 to pick pt up.
--- NOTE | 2022-05-25 14:13 | CASEMGMT ---
ROMELIA was given a message that Agatha from [facility] will not be able to take patient after 4p. Transport was arranged for a 630 pick up attendant. ROMELIA called Manuel, the Sales Service Representative and let her know. She asked if ROMELIA could try and arrange transport with [facility]. ROMELIA called [facility] and the earliest they could pick up attendant patient was 430 which would not work. ROMELIA notified Manuel. ROMELIA notified physician , RN, and rn discharge. ROMELIA will set up transport for patient tomorrow. Plan: [facility] in [place]. D/c tomorrow as transport could not be arranged today due to no availability for needed times through [facility] or [facility]. Dali Walters CLOTH SHEARER SAFETY PIN ASSEMBLING MACHINE OPERATOR
[2022-05-25 14:34] VITALS: BP 112/66; PULSE 77; RESP 18; TEMP 36.7; O2SAT 99
--- NOTE | 2022-05-25 16:24 | PCM.PN.HOSP ---
Subjective Subjective Patient was seen and examined today, it was planned that the patient will be discharged today to an inpatient detox facility however, transportation could not be arranged for the patient so the discharge had to be canceled. At this time, patient shows no evidence of alcohol withdrawal. Objective Data Objective Data Vital Signs: Vital Signs Temp Pulse Resp BP Pulse Ox O2 Del Method 98.1 F 77 18 112/66 99 Room Air 05/25/22 14:34 05/25/22 14:34 05/25/22 14:34 05/25/22 14:34 05/25/22 14:34 05/25/22 14:34 Oxygen Delivery Method Room Air Weight: 54.7 kg Body Mass Index (BMI) 18.8 Intake & Output: Intake and Output for Last 24 Hours 05/23/22 05/24/22 05/25/22 23:59 23:59 23:59 Intake Total 300 / 300 200 / 200 Balance 300 / 300 200 / 200 Medical Nutrition Assessment Dietitian: Malnutrition Criteria Met Start: 05/24/22 11:25 Freq: Status: Active Protocol: Document 05/24/22 11:25 RMA (Rec: 05/24/22 11:25 RMA [id number]) Nutrition Malnutrition Evidence of Malnutrition Exists Yes Malnutrition (severe): Social/Behavioral/ Environmental Evidenced By Suboptimal Energy Intake ( Severe),Weight Loss (Severe), Physical Changes (Moderate) Clinical Problem Chronic Disease or Condition Related Malnutrition Etiology Severe protein-calorie malnutrition in the context of social circumstance related to inadequate oral intake and excessive alcohol intake Signs/Symptoms as evidenced by ~15% wt loss x 6 months, BMI 18.9, muscle/ fat loss in the face and clavicle region and oral intake meeting less than 50% estimated nutrition needs x past 6 months Status Active Problem Recommendation Dietitian Recommendations/Changes Will continue regular diet as ordered. Will continue ensure enlive w/ medpass. Will add 240ml ensure clear w/ breakfast and magic cup w/ lunch and dinner. Adjust ONS as needed to optimize intake and replete calories/protein. Lab / Micro Data Result Diagrams: 05/24/22 00:05 05/24/22 00:05 Physical Exam Const alert, oriented x3 and no apparent distress General Appearance: cooperative, well kempt and well developed Orientation / Consciousness: awake, oriented to person and oriented to place HEENT normocephalic, head/scalp atraumatic and moist oral mucous membranes Eyes PERRL, EOMs intact bilaterally and conjunctivae normal Neck supple, no JVD and thyroid normal General: trachea midline Resp normal respiratory effort, no retractions, no use of accessory muscles and clear to auscultation bilaterally Auscultation: Negative for rales, rhonchi or wheezes Cardio regular rate, regular rhythm, S1 normal heart sound, S2 normal heart sound, no murmurs, no rub and no gallops GI normal to inspection, nondistended, normoactive bowel sounds, soft to palpation, non-tender and non-distended Extremity no clubbing, cyanosis or edema Skin no rashes or lesions noted General Skin Exam: no breakdown Neuro oriented x3, CN's II-XII intact bilaterally, moves all extremities, no focal motor deficits and no sensory deficits noted Sensorium / Orientation: awake, alert, oriented to person and oriented to place Speech: speech normal Psych Psych Narrative: Patient has a flat affect and has difficulty maintaining a conversation. Assessment & Plan Assessment/Plan (1) Alcohol withdrawal: PLAN: Plan 1. Acute alcohol withdrawal-continue present medications, patient will likely be discharged tomorrow to an inpatient detox facility #2 chronic alcoholism-again plan is for the patient to go to an inpatient detox center #3 polysubstance abuse-complicates care, management, recovery, and prognosis Charges/Coding Visit Charges Inpatient E&M: 75024 Subs Hosp L2
--- NOTE | 2022-05-25 16:53 | NURSING ---
This RN is taking over care of patient at this time.
[2022-05-25 18:09] VITALS: BP 113/82; PULSE 74; RESP 16; TEMP 36.4; O2SAT 99
[2022-05-25 21:52] VITALS: BP 101/73; PULSE 81; RESP 20; TEMP 36.4; O2SAT 98
[2022-05-26 00:09] VITALS: BP 112/78; PULSE 81; RESP 20; TEMP 36.7; O2SAT 98
[2022-05-26] MEDS: Phenobarbital 32.4 MG Tablet 64.8 MG PO ×2 (03:15→06:51)
[2022-05-26 05:55] VITALS: BP 99/73; PULSE 81; RESP 20; TEMP 36.4; O2SAT 98
[2022-05-26 08:25] VITALS: BP 95/71; PULSE 87; RESP 16; TEMP 36.1; O2SAT 94
--- NOTE | 2022-05-26 09:43 | CASEMGMT ---
Manuel spoke with patient and he agreed to go to residential treatment. SW arranged via [facility] scheduling website for patient to get picked up at 1030 via wheelchair. ROMELIA then called [facility] to cancel a different transport that was by cot. ROMELIA spoke with Gail at [facility]. Gail saw SW's request for patient and she said the crew that SW canceled will be the one to pecan picker patient. ROMLEIA told Gail the transport canceled was cot and patient is wheelchair transport. Gail said that doesn't matter. It will be cot billed as wheelchair. ROMELIA notified RN and medical secretary receptionist. Plan: discharge to [facility] in [place], [place]. [facility] will transport patient via cot billed as wheelchair per Gail at [facility]. Dali ALBERTO
--- NOTE | 2022-05-26 09:47 | DCINST_ITS ---
Discharge Instructions Diet Discharge Diet: No restrictions and Soft diet Activity Discharge Activity: Return to Normal Activity Weight Bearing Status: Full weight bearing Follow Up Care Test Results: Test results from this visit will be discussed in further detail at your follow- up appointment, if applicable. Discharge Plan Admission Admit Date/Time: 05/24/22 00:28 Primary Reason for Your Visit: alcohol detox Attending Provider: Nelson Mckeon Primary Care Provider: Care Physician,No Primary Consulting Providers: Jerome Lu ; Jaquan Mabry Discharge Orders/Prescriptions Prescriptions: Continued albuterol sulfate [ProAir HFA] 90 mcg/actuation HFA aerosol inhaler 2 puff INHALATION Q4H PRN PRN (Reason: Shortness Of Breath) Referrals / Follow Up: Care Physician,No Primary [Primary Care Provider] - Disposition Disposition (needs filled in before D/C Order can be placed): DC/Tx to Another Type of HCF
--- NOTE | 2022-05-26 09:49 | DS.PCM_ITS ---
Providers Date of Admission: 05/24/22 Date of Discharge: 05/26/22 Primary Care Physician: No Primary Care Phys Reason For Visit: DESIRE FOR DETOXIFICATION Diagnosis Discharge Diagnosis (1) Alcohol withdrawal: Status: Acute Code(s): F10.939 - Alcohol use, unspecified with withdrawal, unspecified Plan 1. Acute alcohol withdrawal-continue present medications, patient will likely be discharged tomorrow to an inpatient detox facility #2 chronic alcoholism-again plan is for the patient to go to an inpatient detox center #3 polysubstance abuse-complicates care, management, recovery, and prognosis Medications at Discharge Home Medications albuterol sulfate 90 mcg/actuation aerosol inhaler (ProAir HFA) 2 puff inhalation Q4H PRN PRN Shortness Of Breath 05/24/22 Hospital Course Procedures None Summary of Care Provided Minutes Spent on Discharge: 32 Hospital Course: This 46-year-old white male was seen in the emergency room at [facility] requesting services for alcohol detox. Tox screen was obtained and was positive for opiates, amphetamines, ecstasy, and the patient's ethyl alcohol level was below 3. Patient was admitted to PCU and orders were entered using the alcohol detox order set, he was seen by addiction social media marketing specialist, and arrangements were made for the patient to be admitted to an outpatient alcohol detox center at the time of discharge from the hospital. There were no untoward events during patient's hospitalization and no evidence of DTs. On 05/26/2022, patient was seen and examined: On examination he appeared in good health and spirits. Vital signs as documented. Skin warm and dry and without overt rashes. Neck without JVD, neck was supple, trachea midline, thyroid was normal. Lungs clear bilaterally, normal air movement was noted. Heart exam not able for regular rhythm, normal sounds and absence of murmurs, rubs or gallops. Abdomen unremarkable and without evidence of organomegaly, masses, or abdominal aortic enlargement. Bowel sounds are present, abdomen is not distended. Extremities nonedematous, no cyanosis was noted, no clubbing was noted. Neuro: Cranial nerves II through XII are grossly intact, no focal motor deficits were noted, sensation to light touch and pinprick intact, motor exam 5/5 throughout. Psych: Patient is alert and oriented x3, he does not appear anxious or depressed, he does not appear agitated. On 05/26/2022, patient was seen and examined and felt to be stable for discharge to an inpatient detox center. Medical Records Data Medical Nutrition Assessment Dietitian: Malnutrition Criteria Met Start: 05/24/22 11:25 Freq: Status: Active Protocol: Document 05/24/22 11:25 RMA (Rec: 05/24/22 11:25 RMA [id number]) Nutrition Malnutrition Evidence of Malnutrition Exists Yes Malnutrition (severe): Social/Behavioral/ Environmental Evidenced By Suboptimal Energy Intake ( Severe),Weight Loss (Severe), Physical Changes (Moderate) Clinical Problem Chronic Disease or Condition Related Malnutrition Etiology Severe protein-calorie malnutrition in the context of social circumstance related to inadequate oral intake and excessive alcohol intake Signs/Symptoms as evidenced by ~15% wt loss x 6 months, BMI 18.9, muscle/ fat loss in the face and clavicle region and oral intake meeting less than 50% estimated nutrition needs x past 6 months Status Active Problem Recommendation Dietitian Recommendations/Changes Will continue regular diet as ordered. Will continue ensure enlive w/ medpass. Will add 240ml ensure clear w/ breakfast and magic cup w/ lunch and dinner. Adjust ONS as needed to optimize intake and replete calories/protein. Weight / BMI Weight Weight: 54.7 kg Body Mass Index (BMI) 18.8 ABG / Lab / Microbiology Data Result Diagrams: 05/24/22 00:05 05/24/22 00:05 D/C Instructions Discharge Diet: No restrictions and Soft diet Weight Bearing Status: Full weight bearing Meaningful Use Info Meaningful Use Diagnoses (Choose all that apply): None applicable Discharge Plan Admission Admit Date/Time: 05/24/22 00:28 Primary Reason for Your Visit: alcohol detox Attending Provider: Nelson Mckeon Primary Care Provider: Care Physician,No Primary Consulting Providers: Jerome Lu ; Jaquan Mabry Discharge Orders/Prescriptions Prescriptions: Continued albuterol sulfate [ProAir HFA] 90 mcg/actuation HFA aerosol inhaler 2 puff INHALATION Q4H PRN PRN (Reason: Shortness Of Breath) Referrals / Follow Up: Care Physician,No Primary [Primary Care Provider] - Disposition Disposition (needs filled in before D/C Order can be placed): DC/Tx to Another Type of HCF Charges/Coding Visit Charges Inpatient E&M: 32170 Disch Hosp
--- NOTE | 2022-05-26 10:06 | CASEMGMT ---
ROMELIA called Agatha at [facility] and let her know patient will be picked up at 1030. She thanked ROMELIA for the update. Dali ALBERTO
== END 2022-05-26 10:49 | disposition other institution (70) | DRG 772 ==
LOC: ED 05-24 00:45 → PCU 05-24 02:42
PROVIDERS: Admitting Provider Hospitalist; Emergency Provider Emergency Medicine; Visit Provider Internal Medicine
DX: F10.239 Alcohol dependence with withdrawal, unspecified (principal); J43.9 Emphysema, unspecified; F41.9 Anxiety disorder, unspecified; I10 Essential (primary) hypertension; J45.909 Unspecified asthma, uncomplicated; K21.9 Gastro-esophageal reflux disease without esophagitis; Y90.0 Blood alcohol level of less than 20 mg/100 ml; Z59.00 Homelessness unspecified; Z86.73 Personal history of transient ischemic attack (TIA), and cerebral infarction without residual deficits
CPT/HCPCS: 80053; 80307; 82077; 85025; 97802; 99218; 99283; A4216; G0378

== ENCOUNTER 2022-07-09 06:03 | Emergency (ER) | payer MEDICAID, SELFPAY ==
[2022-07-09 06:04] VITALS: BP 129/114; PULSE 86; RESP 16; TEMP 36.4; O2SAT 98; BMI 20.5
[2022-07-09 06:08] VITALS: O2SAT 100
[2022-07-09] MEDS: Ipratropium/Albuterol Sulfate 3 ML AMPUL.NEB INHALATION (06:35)
[2022-07-09 06:37] VITALS: PULSE 74; RESP 16
[2022-07-09] MEDS: predniSONE 20 MG Tablet 60 MG PO (06:51)
--- NOTE | 2022-07-09 07:03 | EDS_ITS ---
HPI History of Present Illness Chief Complaint: Shortness of Breath Informant: patient Narrative Narrative: Patient states he is a longtime smoker. He is trying to quit and really is not smoking now. He used to smoke a lot of marijuana 2. He has known COPD. Us ually at change of season he will get wheezing. He has been wheezing for few days. Off and on. He he coughs but is not bringing up sputum. He states he is not having chest pain. He does not feel sick at all he just feels like the breathing is tight. He really just wants to get an inhaler and go. He is on no other medications. No allergies. No myalgias. [facility] Medical History Active substance abuse Alcohol abuse Anxiety Asthma Bulla of lung Depression Desire for detoxification Desire for detoxification GERD (gastroesophageal reflux disease) Hypertension Inguinal hernia bilateral, non-recurrent Methamphetamine abuse Non-smoker Stroke/cerebrovascular accident Substance abuse Substance abuse Home Medications albuterol sulfate 90 mcg/actuation aerosol inhaler (ProAir HFA) 2 puff inhalation Q4H PRN PRN Shortness Of Breath 05/24/22 [History Last Taken Unknown] albuterol sulfate 90 mcg/actuation aerosol inhaler (Ventolin HFA) 2 puff inhalation Q4H PRN PRN Wheezing ##1 07/09/22 [Rx Last Taken Unknown] prednisone 20 mg tablet 60 mg PO DAILY #12 tabs 07/09/22 [Rx Last Taken Unknown] Allergy/AdvReac Type Severity Reaction Status Date / Time No Known Allergies Allergy Verified 07/09/22 06:06 Family History Father Alcoholism Surgical History History of ankle surgery Social History housing: homeless Smoking Status: Former smoker alcohol intake: current substance use type: methamphetamine ROS ROS ED Constitutional Constitutional ED: Denies chills or fever(s) ENT ENT ED: Denies rhinorrhea or sore throat Cardiovascular Cardiovascular: Denies chest pain, palpitations or racing heartbeat Respiratory/Chest Respiratory/Chest: Reports cough and dyspnea; Denies sputum Gastrointestinal Gastrointestinal: Denies nausea or vomiting Musculoskeletal Musculoskeletal: Denies arthralgias or myalgias Integumentary Denies rash Neurologic Neurologic: Denies headache(s) Endocrine Endocrinology: Denies polydipsia or polyuria Hematologic/Lymphatic Hematologic/Lymphatic: Denies easy bleeding or easy bruising Allergic/Immunologic Allergic/Immunologic ED: Denies urticaria EXAM Physical Exam Const Vital Signs: 07/09/22 06:04 07/09/22 06:08 07/09/22 06:37 Temperature 97.6 F L Temperature Source Temporal Pulse Rate 86 74 Respiratory Rate 16 16 Respiratory Effort Short of Breath Respiratory Pattern Normal Blood Pressure 129/114 H Blood Pressure Mean 119 Pulse Ox 98 Oxygen Delivery Method Room Air Room Air Positive well nourished and well developed Constitutional Narrative: Patient carries on a normal conversation. Vitals show 100% on room air showing no hypoxia. Heart rates about 75. General Appearance ED: well developed and NAD; Negative for pallor HEENT Reports moist mucous membranes Eyes General Eye ED: Negative for scleral icterus Neck no JVD Resp normal respiratory effort Resp Narrative: Patient does have some mild expiratory wheezing. No rhonchi. No rales. No pain with a deep breath Auscultation: wheezes; Negative for rales or rhonchi Cardio regular rate, regular rhythm and no murmurs GI non-tender and non-distended Palpation: soft Back/Spine no CVA tenderness Extremity Extremity Narrative: No edema cords tenderness or asymmetry. General Extremety ED: Negative for edema or tenderness General Extremity: Negative for edema Psych mental status grossly normal Skin no wounds General Skin Exam: Negative for jaundice or pallor MDM MDM MDM Narrative Medical decision making narrative: Patient initially just wanted inhaler. I was able to convince him to at least s shirley to get a dose of prednisone and breathing treatments we can reassess him. He is doing much better. He has much better air motion. He has a very small end expiratory wheeze. But he would just like meds to go at this point. I think this is reasonable. We discussed reasons to return. Discharge Plan Triage Chief Complaint: Shortness of Breath ED Provider: Ender Garcia Dx/Rx/DC Orders Clinical Impression: Asthma exacerbation in COPD Instructions: ED COPD Flare Prescriptions: New prednisone 20 mg tablet 60 mg PO DAILY Qty: 12 0RF albuterol sulfate [Ventolin HFA] 90 mcg/actuation HFA aerosol inhaler 2 puff inhalation Q4H PRN PRN (Reason: Wheezing) Qty: 1 0RF No Action albuterol sulfate [ProAir HFA] 90 mcg/actuation HFA aerosol inhaler 2 puff INHALATION Q4H PRN PRN (Reason: Shortness Of Breath) Primary Care Provider: Care Physician,No Primary Referrals: Bashir Berrios MD [Med Staff - Credit Control Manager] - 3-5 Days if not improving Care Physician,No Primary [Primary Care Provider] - Disposition Disposition: Home, Self Care
[2022-07-09 07:41] VITALS: PULSE 92; O2SAT 100
== END 2022-07-09 07:42 | disposition home or self-care (01) ==
PROVIDERS: Emergency Provider Emergency Medicine; Visit Provider Emergency Medicine
DX: J45.901 Unspecified asthma with (acute) exacerbation (principal); J43.9 Emphysema, unspecified; F15.10 Other stimulant abuse, uncomplicated; I10 Essential (primary) hypertension; K40.20 Bilateral inguinal hernia, without obstruction or gangrene, not specified as recurrent; K21.9 Gastro-esophageal reflux disease without esophagitis; F32.A Depression, unspecified; F41.9 Anxiety disorder, unspecified; Z87.891 Personal history of nicotine dependence; Z86.73 Personal history of transient ischemic attack (TIA), and cerebral infarction without residual deficits
CPT/HCPCS: 94640; 99282

== ENCOUNTER 2022-07-15 20:55 | Inpatient (IN) | payer MEDICAID, SELFPAY ==
[2022-07-15 20:56] VITALS: BP 159/90; PULSE 83; RESP 18; TEMP 36.6; O2SAT 98; BMI 20.9
--- NOTE | 2022-07-15 21:18 | EX.ED.SAOD ---
HPI History of Present Illness Chief Complaint: Substance Abuse Informant: patient Narrative Narrative: Presents here for alcohol assistance. He relapsed. Admitted in May for assistance he was referred to outpatient center he states he went for 2 days then left. He finished treatment as inpatient. He states when he left he thought about that he should have stayed. Started drinking again primarily beer. At times whiskey. Last drink was this afternoon. Also states he smokes weed. Previous history noted methamphetamines opiates ecstasy he states unless it was in his marijuana he does not use this. Denies suicidal homicidal ideations. Denies any current nausea or vomiting. States wakes up with morning shakes and starts drinking. No withdrawal seizures in the past. History of depression. Prior similar symptoms: Yes PFSH PFSH Medical History Active substance abuse Alcohol abuse Anxiety and depression Asthma with COPD Bulla of lung GERD (gastroesophageal reflux disease) Hypertension Inguinal hernia bilateral, non-recurrent Methamphetamine abuse Stroke/cerebrovascular accident Tobacco use Home Medications NK 07/15/22 [History Last Taken Unknown] Allergy/AdvReac Type Severity Reaction Status Date / Time No Known Allergies Allergy Verified 07/15/22 22:47 Family History (Updated 07/15/22 @ 21:[address] Alisha Mcintyre MD) Father Alcoholism CAD (coronary artery disease) Heart disease Hypertension Mother Alcoholism Seizures Surgical History History of ankle surgery Social History (Updated 07/15/22 @ 21:[address] Alisha Mcintyre MD) housing: homeless Smoking Status: Never smoker how long ago did patient quit smoking: Former occasional cigarette user. Still smokes cannabis, often daily. alcohol intake: current details: 5-6 beers daily, whiskey. substance use type: marijuana, opiates and methamphetamine ROS ROS ED Constitutional Constitutional ED: Denies chills, fever(s) or sweats Eyes Eyes: Denies change in vision ENT ENT ED: Denies dysphagia or sore throat Cardiovascular Cardiovascular: Denies chest pain, leg edema, palpitations or racing heartbeat Respiratory/Chest Respiratory/Chest: Denies cough, dyspnea or dyspnea on exertion Gastrointestinal Gastrointestinal: Denies abdominal pain, diarrhea, nausea or vomiting Genitourinary Genitourinary ED: Denies dysuria, hematuria or urinary frequency Musculoskeletal Musculoskeletal: Denies back pain, extremity pain or neck pain Integumentary Denies rash or wounds Neurologic Neurologic: Denies headache(s), paresthesias or weakness EXAM Physical Exam Const Vital Signs: 07/15/22 20:56 Temperature 97.9 F Temperature Source Temporal Pulse Rate 83 Respiratory Rate 18 Blood Pressure 159/90 H Blood Pressure Mean 113 Pulse Ox 98 Oxygen Delivery Method Room Air Constitutional Narrative: Thin, nontoxic male. Stuttering during questioning and exam. No slurring of speech. General Appearance ED: NAD HEENT Reports moist mucous membranes normocephalic and atraumatic Eyes PERRL, EOMs intact bilaterally and conjunctivae normal General Eye ED: Yes normal appearance of both eyes Neck no lymphadenopathy and supple General: Negative for tenderness Chest Wall Chest: Negative for tenderness Resp normal respiratory effort and normal air movement Effort and Inspection: symmetric chest movement; Negative for respiratory distress Cardio regular rate, regular rhythm and no murmurs Peripheral Pulses: pulses 2+ throughout GI normal to inspection, nondistended, normoactive bowel sounds and non-tender Palpation: Negative for guarding or rebound tenderness present Back/Spine no CVA tenderness and no thoracic nor lumbar tenderness Extremity normal to inspection General Extremety ED: Negative for edema or tenderness General Extremity: Negative for edema Neuro oriented x3 and no sensory deficits noted Sensorium / Orientation: awake and alert Psych Psych Narrative: Denies suicidal or homicidal ideations. Skin no rashes or lesions noted and no wounds MDM MDM MDM Narrative Medical decision making narrative: Patient vital signs stable nontoxic no current intoxication. Request alcohol assistance. Last treatment was 2 months ago. No current symptoms. Labs were drawn urine and alcohol pending. Will discuss with hospitalist service for admission. Discussed with hospitalist Dr. Mcintyre for admission. tox screen did return amphetamines, THC, ecstasy. Alcohol negative. Discharge Plan Dx/Rx/DC Orders Clinical Impression: Alcoholism, Alcohol abuse, Polysubstance dependence Disposition Disposition: Acute Care Hospital [facility] Discharge Date/Time: 07/15/22 22:14
--- NOTE | 2022-07-15 21:19 | PCM.HP.STD ---
HPI - General General Date of Admission: 07/15/22 Date of Service: 07/15/22 Chief Complaint: EtOH detoxification request. HPI Narrative The patient is a 46 y/o M w/ PMHx: ? CVA, HTN, COPD/asthma, Former Tobacco use/Daily Cannabis user, Polysubstance abuse including Opiates/Cannabis/Methamphetamines, EtOH abuse (4-6 beers daily, occasional whiskey) recently at [facility] for detoxification 03/19/22 and most recently 05/23/22 discharged to residential treatment program but left after 2 days with additionally recent 07/09/22 ED evaluation for COPD/asthma exacerbation at that time discharged on prednisone/inhaler regimen who now re-presents to the [facility] ED on 07/15/22 with history of ongoing EtOH abuse since leaving residential program with requested detoxification.He notes last drink was several hours prior to ED presentation. Currently he reports mild tremors and tactile disturbances. He does have chronic speech changes suspected from his prior reported CVA. Work-up in the ED included T 97.9,HR 83, BP 159/90, RR 18, 98% on RA, pending CBC, BMP, UDS, EtOH level upon requested evaluation of patient. Hepatic profile request added per Hospitalist. [facility] Medical History Active substance abuse Alcohol abuse Anxiety and depression Asthma with COPD Bull[place] of lung GERD (gastroesophageal reflux disease) Hypertension Inguinal hernia bilateral, non-recurrent Methamphetamine abuse Stroke/cerebrovascular accident Tobacco use Allergy/AdvReac Type Severity Reaction Status Date / Time No Known Allergies Allergy Verified 07/15/22 21:29 Family History (Updated 07/15/22 @ 21:[address] Alisha Mcintyre MD) Father Alcoholism CAD (coronary artery disease) Heart disease Hypertension Mother Alcoholism Seizures Surgical History History of ankle surgery Social History (Updated 07/15/22 @ 21:[address] Alisha Mcintyre MD) housing: homeless Smoking Status: Former smoker how long ago did patient quit smoking: Former occasional cigarette user. Still smokes cannabis, often daily. alcohol intake: current details: 5-6 beers daily, whiskey. substance use type: marijuana, opiates and methamphetamine ROS ROS Narrative Admission Review of Systems: CONSTITUTIONAL: No weight loss, fever, chills, + weakness or fatigue. HEENT: Eyes: No visual loss, blurred vision, double vision or yellow sclerae. Ears, Nose, Throat: No hearing loss, sneezing, congestion, runny nose or sore throat. SKIN: No rash or itching, lesions, wounds. CARDIOVASCULAR: No chest pain, chest pressure or chest discomfort, palpitations, edema, orthopnea, syncopal events. RESPIRATORY: + Cough, dyspnea, wheezing recently with exacerbation, improving. No hemoptysis. GASTROINTESTINAL: No anorexia, nausea, vomiting or diarrhea, abdominal pain, melena, BRBPR. GENITOURINARY: No dysuria, frequency, urgency or retention. NEUROLOGICAL: + Mild tremors, speech changes/aphasia, tactile disturbances. No headache, dizziness, syncope, paralysis, ataxia, numbness or tingling in the extremities, focal weakness, change in bowel or bladder control, seizure. MUSCULOSKELETAL: + muscle, back pain, joint pain or stiffness. HEMATOLOGIC: + anemia, bleeding or bruising. LYMPHATICS: No enlarged nodes. No history of splenectomy. PSYCHIATRIC: + history of depression or anxiety. ENDOCRINOLOGIC: No reports of sweating, cold or heat intolerance. No polyuria or polydipsia. ALLERGIES: + history of asthma, rhinitis. Vital Signs Vital Signs Vital Signs: 07/15/22 20:56 Temperature 97.9 F Temperature Source Temporal Pulse Rate 83 Respiratory Rate 18 Blood Pressure 159/90 H Blood Pressure Mean 113 Pulse Ox 98 Oxygen Delivery Method Room Air Weight Weight: 130 lb Body Mass Index (BMI) 20.9 Physical Exam Narrative Physical Examination: General: Awake, alert, oriented x 3 and cooperative, seated upright in ED bed, mildly restless, chronic aphasia. Skin: Normal color, normal turgor, no icterus, no cyanosis. HEENT: AT/NC, EOMI, PERRLA, mildly dry MM, no carotid bruits or JVD noted. Lungs: Mildly diminished, > bases, occasional end expiratory wheeze, he notes improved from recent exacerbation, no rales or marked rhonchi. Heart: Regular rate and rhythm; no gallop, rub audible. Abdomen: Soft, thins habitus, NTTP, ND, distant normal BS, + HM. Extremities: No cyanosis, clubbing, or edema. Neurological: Patient awake, alert, oriented as noted, cognitive function appears baseline intact; pupils equally reactive to light and accommodation, cranial nerves grossly normal, moving all 4 extremities, no focal deficits, strength mildly globally decreased secondary to acute presentation, impending withdrawal, chronic aphasia. Psychiatric: Affect appears flat, no acute evidence of depressive or anxiety feelings but does have underlying history. Results Lab / Micro Data Result Diagrams: 07/15/22 21:27 07/15/22 21:27 Assessment & Plan Assessment/Plan (1) Alcohol abuse: PLAN: Plan The patient is a 46 y/o M w/ PMHx: ? CVA, HTN, COPD/asthma, Former Tobacco use/Daily Cannabis user, Polysubstance abuse including Opiates/Cannabis/Methamphetamines, EtOH abuse who now presents to the [facility] ED on 07/15/22 with history of ongoing EtOH abuse since leaving residential program with requested detoxification.He notes last drink was several hours prior to ED presentation. #1. Acute EtOH Withdrawal: Will admit to [facility], routine labs obtained in the ED upon presentation and pending upon evaluation. Given interest in sobriety, will initiate and continue on protocol with taper course of Phenobarbital, scheduled gabapentin for seizure prophylaxis, as needed Catapres, Bentyl, Vistaril, IV fluids, IV antiemetics, Tylenol as needed for pain. Will consult Case management for assistance for transition to next level of rehabilitation care. Mag, phos pending. #2. Asthma/COPD: Patient with recent exacerbation, completed steroid burst taper, will have as needed albuterol in addition to budesonide therapy. #3. Hypertension, Uncontrolled: Patient BP elevated above goal upon ED presentation, could certainly be associated with acute presentation #1, will continue to monitor and if remains elevated despite intervention for #1 would add oral regimen, PRN IV hydralazine in the interim. #4. Tobacco Abuse: Encouraged cessation, inpatient consultation per RT, NR if desired. #5. Anxiety and depression: Not on any regimen, likely contributing to ongoing alcohol abuse, encourage strongly follow-up with counseling with 180. #6. Polysubstance abuse: Patient is previously denied but is been noted on prior evaluations, strongly encouraged avoidance of heavy cannabis, methamphetamines as well as opiates. UDS pending upon current presentation. #7. ? CVA w/ chronic aphasia: Poor historian, will continue asa, not on HTN regimen as noted #3 but low threshold to added if appropriate, not on statin therapy, defer to outpatient. #8. DVT prophylaxis: Low risk, encourage ambulation. Charges/Coding Visit Charges Inpatient E&M: 66998 Init Hosp L2
[2022-07-15 21:33] VITALS: BP 159/90; PULSE 83; RESP 18; TEMP 36.6; O2SAT 98
[2022-07-15 21:37] LABS: Absolute Lymphocyte Count 1.71 X10^3/uL (0.83-4.51); Absolute Neutrophil Count 3.6 X10^3/uL (2.0-7.7); Basophil# 0.05 X10^3/uL; Basophil% 0.8 % (0-1); Eosinophil# 0.37 X10^3/uL; Hemoglobin 13.8 g/dL (13.0-16.5); Lymphocyte # 1.71 X10^3/ul (0.83-4.51); Lymphocyte % 27.9 % (19-41); Mean Corp Hgb Conc 33.7 g/dL (32-36); Mean Corpuscular Hgb 31.5 pg (27.0-32.0); Mean Corpuscular Volume 93.6 fL (80-94); Mean Platelet Vol. 8.9 fl (6.2-12.0); Monocyte# 0.37 X10^3/uL; NRBC Flagged by Analyzer 0 % (0-5); Neutrophil # 3.62 X10^3/uL (2.7-7.7); Neutrophil % 59.1 % (47-70); Platelet Count 289 K/mm3 (150-450); RBC Distribution Width CV 12.5 % (11.6-14.6); RBC Distribution Width SD 43.1 fl (35.1-43.9); Red Blood Count 4.38 M/mm3 (4.6-6.2); White Blood Count 6.1 K/mm3 (4.4-11.0)
[2022-07-15 21:52] LABS: Anion Gap 6 (5-15); BUN 24 mg/dL (7-18); BUN/Creat Ratio 24.8 RATIO (10-20); Calcium,Total 9.1 mg/dL (8.5-10.1); Chloride 108 mmol/L (98-107); Creatinine, Serum 0.97 mg/dL (0.70-1.30); EST Glomerular Filtration Rate 89 mL/min (>60); Est Glom Filt Rate - Afr Amer 107 mL/min (>60); Estimated Creatinine Clearance 79.37 ml/min; Glucose 85 mg/dL (74-106); Magnesium 2.3 mg/dL (1.6-2.6); Potassium 3.8 mmol/L (3.5-5.1); Sodium Level 142 mmol/L (136-145)
[2022-07-15 21:53] LABS: Amphetamine Urine VISTA POSITIVE (<1000 ng/mL); Barbiturate Urine VISTA NEGATIVE (< 200 ng/mL); Benzodiazepine Urine VISTA NEGATIVE (< 200 ng/mL); Cocaine Urine VISTA NEGATIVE (< 300 ng/mL); Ecstacy Urine VISTA POSITIVE (< 500 ng/mL); Methadone Urine VISTA NEGATIVE (< 300 ng/mL); PCP Urine VISTA NEGATIVE (< 25 ng/mL); THC Urine VISTA POSITIVE (< 50 ng/mL); Vista UDS pH Range 4
[2022-07-15 21:58] LABS: AST(SGOT) 32 U/L (15-37); Alanine Aminotransfer ALT/SGPT 63 U/L (16-61); Albumin, Serum 4.1 g/dL (3.2-5.0); Alkaline Phosphatase 54 U/L (45-117); Bilirubin, Direct 0.11 mg/dL (0.00-0.30); Globulin 4.4 g/dL (2.2-4.2); Phosphorus 3.5 mg/dL (2.5-4.9); Protein, Total 8.5 g/dL (6.4-8.2)
[2022-07-15 22:04] LABS: Alcohol, Blood (Medical)-Serum < 3.0 mg/dL
[2022-07-15 22:23] VITALS: BP 128/84; PULSE 60; RESP 18; TEMP 36.5; O2SAT 100
[2022-07-15 22:43] VITALS: BMI 19.5
[2022-07-15] MEDS: Phenobarbital 32.4 MG Tablet 64.8 MG PO (23:13)
[2022-07-15] MEDS: Lactated Ringers 1,000 ML 125 ML IV (23:13)
[2022-07-15 23:29] VITALS: O2SAT 94
[2022-07-16] VITALS (9 sets, daily range): BP systolic 112–133; BP diastolic 75–95; PULSE 49–78; RESP 14–16; TEMP 36.3–36.8; O2SAT 96–100
[2022-07-16] MEDS: Phenobarbital 32.4 MG Tablet 64.8 MG PO ×3 (03:13→16:31)
[2022-07-16] MEDS: Budesonide Respules 0.5 MG/2 ML AMPUL.NEB. INHALATION ×2 (07:15→17:10)
--- NOTE | 2022-07-16 08:06 | PN.HOSP_ITS ---
Subjective Subjective Follow-up on acute alcohol withdrawal: Patient was seen and examined. Denied any new complaints. No acute events overnight. Objective Data Objective Data Vital Signs: Vital Signs Temp Pulse Resp BP Pulse Ox O2 Del Method 97.3 F L 68 16 122/79 H 96 Room Air 07/16/22 06:26 07/16/22 07:17 07/16/22 07:17 07/16/22 06:26 07/16/22 07:17 07/16/22 07:17 Oxygen Delivery Method Room Air Weight: 55 kg Body Mass Index (BMI) 19.5 Intake & Output: Intake and Output for Last 24 Hours 07/14/22 07/15/22 07/16/22 23:59 23:59 23:59 Intake Total 1120.83 / 1120.83 Balance 1120.83 / 1120.83 Lab / Micro Data Result Diagrams: 07/15/22 21:27 07/15/22 21:27 Labs: Laboratory Results - last 24 hr 07/15/22 21:27: WBC 6.1, RBC 4.38 L, Hgb 13.8, Hct 41.0, MCV 93.6, MCH 31.5, MCHC 33.7, RDW Std Deviation 43.1, RDW Coeff of Bridger 12.5, Plt Count 289, MPV 8.9, Immature Gran % (Auto) 0.200, Neut % (Auto) 59.1, Lymph % (Auto) 27.9, [place] % (Auto) 6.0, Eos % (Auto) 6.0 H, Baso % (Auto) 0.8, Absolute Neuts (auto) 3.6, Absolute Lymphs (auto) 1.71, Nucleated RBC % 0 07/15/22 21:27: Sodium 142, Potassium 3.8, Chloride 108 H, Carbon Dioxide 28.0, Anion Gap 6, BUN 24 H, Creatinine 0.97, Estim Creat Clear Calc 79.37, Est GFR (MDRD) Af Amer 107, Est GFR (MDRD) Non-Af 89, BUN/Creatinine Ratio 24.8 H, Glucose 85, Calcium 9.1, Magnesium 2.3 07/15/22 21:27: Ethyl Alcohol < 3.0 07/15/22 21:27: Phosphorus 3.5, Total Bilirubin 0.40, Direct Bilirubin 0.11, AST 32, ALT 63 H, Alkaline Phosphatase 54, Total Protein 8.5 H, Albumin 4.1, Globulin 4.4 H 07/15/22 21:30: Urine Opiates Screen NEGATIVE, Urine Methadone Screen NEGATIVE, Ur Barbiturates Screen NEGATIVE, Ur Phencyclidine Scrn NEGATIVE, Ur Amphetamines Screen POSITIVE H, MDMA (Ecstasy) Screen POSITIVE H, U Benzodiazepines Scrn NEGATIVE, Urine Cocaine Screen NEGATIVE, U Cannabinoids Screen POSITIVE H, Ur Drug Screen Comment Physical Exam Narrative Physical exam: General: Alert, Oriented x3, Cooperative, No apparent distress HEENT: Atraumatic Oral: Moist Mucosa Neck: Supple Lungs: Clear to auscultation Cardiovascular: HS I+II, regular, no murmurs Abdomen: Bowel Sounds Present, Soft, Non Tender Extremities: No edema Skin: No rashes, No breakdown Neurological: Grossly intact Psych/Mental Status: Flat affect Assessment & Plan Assessment/Plan (1) Alcohol abuse: (2) Acute alcohol withdrawal: PLAN: Plan 1. Acute alcohol withdrawal, improving, continue on the phenobarbital withdrawal protocol 2. Asthma/COPD, not in acute exacerbation, continue on budesonide, continue with as needed breathing treatment 3. Hypertension, controlled, not on medications 4. Nicotine dependence, advised to quit, will continue on replacement 5. Polysubstance use, advised to quit 6. DVT prophylaxis?low risk, early ambulation recommended Charges/Coding Visit Charges Inpatient E&M: 45664 Subs Hosp L2
[2022-07-16] MEDS: Thiamine Hydrochloride 100 MG Tablet PO (08:12)
[2022-07-16] MEDS: Aspirin 81 MG TAB.CHEW PO (08:12)
[2022-07-16] MEDS: Folic Acid 1 MG Tablet PO (08:12)
[2022-07-16] MEDS: Ensure Plus High Protein 120 ML LIQUID PO ×2 (08:15→16:33)
[2022-07-16] MEDS: Albuterol 2.5 MG/3 ML VIAL.NEB. INHALATION (17:09)
--- NOTE | 2022-07-16 22:56 | NURSING ---
Patient refusing Phenobarbital. CIWA increased to 5. This RN educated patient regarding reasons to take the prescribed med. RN asked if patient would take 1 or 2 tablets instead of prescribed 3 tablets. Patient still refused. Patient said he does not have a history of seizures when withdrawing from alcohol.
[2022-07-16] MEDS: 0.9% Saline Lock 10 ML Syringe IV (23:01)
[2022-07-17 04:13] VITALS: BP 127/82; PULSE 56; RESP 16; TEMP 36.3; O2SAT 97
[2022-07-17 07:41] VITALS: PULSE 70; RESP 18; O2SAT 95
[2022-07-17] MEDS: Budesonide Respules 0.5 MG/2 ML AMPUL.NEB. INHALATION ×2 (07:41→19:08)
[2022-07-17] MEDS: Albuterol 2.5 MG/3 ML VIAL.NEB. INHALATION (07:43)
[2022-07-17] MEDS: Ensure Plus High Protein 120 ML LIQUID PO ×2 (07:50→14:20)
[2022-07-17] MEDS: Aspirin 81 MG TAB.CHEW PO (07:52)
[2022-07-17] MEDS: Folic Acid 1 MG Tablet PO (07:52)
[2022-07-17] MEDS: Thiamine Hydrochloride 100 MG Tablet PO (07:52)
[2022-07-17] MEDS: Ibuprofen 600 MG Tablet PO (07:54)
[2022-07-17 08:00] VITALS: BP 110/78; PULSE 78; RESP 15; TEMP 37.7; O2SAT 99
--- NOTE | 2022-07-17 08:53 | PCM.PN.HOSP ---
Subjective Subjective Follow-up on acute alcohol withdrawal: Patient was seen and examined.?Denied any new complaints.?No acute events overnight. Objective Data Objective Data Vital Signs: Vital Signs Temp Pulse Resp BP Pulse Ox O2 Del Method 99.9 F H 78 15 110/78 99 Room Air 07/17/22 08:00 07/17/22 08:00 07/17/22 08:00 07/17/22 08:00 07/17/22 08:00 07/17/22 08:00 Oxygen Delivery Method Room Air Weight: 55 kg Body Mass Index (BMI) 19.5 Intake & Output: Intake and Output for Last 24 Hours 07/15/22 07/16/22 07/17/22 23:59 23:59 23:59 Intake Total 1120.83 / 1120.83 Balance 1120.83 / 1120.83 Medical Nutrition Assessment Dietitian: Malnutrition Criteria Met Start: 07/16/22 10:10 Freq: Status: Active Protocol: Document 07/16/22 10:10 AG (Rec: 07/16/22 10:10 [id number]) Nutrition Malnutrition Evidence of Malnutrition Exists Yes Malnutrition (moderate): Chronic Evidenced By Suboptimal Energy Intake ( Moderate),Weight Loss ( Moderate),Physical Changes ( Mild) Clinical Problem Chronic Disease or Condition Related Malnutrition Etiology moderate, chronic malnutrition related to inadequate protein /calorie intake in context of substance abuse Signs/Symptoms as evidenced by mild muscle wasting/fat loss evident per physical exam in orbital, temporal, clavicle and acromion areas; estimated PO intake meeting <75% of estimated energy needs >3 months; BMI 19.6 Status Active Problem Recommendation Dietitian Recommendations/Changes regular diet as tolerated w/ snacks TID as ordered; continue ensure plus high protein 120mL 4x/day w/ medpass given signs/symptoms of malnutrition Lab / Micro Data Result Diagrams: 07/15/22 21:27 07/15/22 21:27 Physical Exam Narrative Physical exam: General: Alert, Oriented x3, Cooperative, No apparent distress HEENT: Atraumatic Oral: Moist Mucosa Neck: Supple Lungs: Clear to auscultation Cardiovascular: HS I+II, regular, no murmurs Abdomen: Bowel Sounds Present, Soft, Non Tender Extremities: No edema Skin: No rashes, No breakdown Neurological: Grossly intact Psych/Mental Status: Flat affect Assessment & Plan Assessment/Plan (1) Alcohol abuse: (2) Acute alcohol withdrawal: PLAN: Plan 1. Acute alcohol withdrawal, improving, Continue on the phenobarbital withdrawal protocol 2. Asthma/COPD, not in acute exacerbation, continue on budesonide, continue with as needed breathing treatment 3. Hypertension, controlled, not on medications 4. Nicotine dependence, advised to quit, Continue on replacement 5. Polysubstance use, advised to quit 6. 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 DVT prophylaxis?low risk, early ambulation recommended Charges/Coding Visit Charges Inpatient E&M: 95600 Subs Hosp L2
[2022-07-17 14:25] VITALS: BP 112/73; PULSE 82; RESP 16; TEMP 36.7; O2SAT 97
[2022-07-17 19:08] VITALS: PULSE 80; RESP 14
[2022-07-17 21:15] VITALS: BP 97/74; PULSE 77; RESP 16; TEMP 36.6; O2SAT 96
[2022-07-18 03:42] VITALS: BP 150/75; PULSE 54; RESP 14; TEMP 36.6; O2SAT 96
[2022-07-18] MEDS: Thiamine Hydrochloride 100 MG Tablet PO (07:52)
[2022-07-18] MEDS: Folic Acid 1 MG Tablet PO (07:52)
[2022-07-18] MEDS: Aspirin 81 MG TAB.CHEW PO (07:52)
[2022-07-18] MEDS: Ensure Plus High Protein 120 ML LIQUID PO (07:54)
[2022-07-18 08:24] VITALS: BP 112/83; PULSE 83; RESP 18; TEMP 36.6; O2SAT 96
[2022-07-18 08:35] VITALS: O2SAT 95
--- NOTE | 2022-07-18 10:05 | ADDICTION ---
Pt is refusing addiction assessments, which is required per terms of the [facility] program. Pt reports that he was at [facility] for 2 days last time he d/c'd from detox and hitchhiked home. Pt admits he did not have much alcohol before he came in and just has a lot going on. He has asked to have his IV out to leave.
[2022-07-18 10:39] VITALS: PULSE 85; RESP 19
--- NOTE | 2022-07-18 10:40 | DCINST_ITS ---
Discharge Instructions Diet Discharge Diet: No restrictions Activity Discharge Activity: Return to Normal Activity Follow Up Care Test Results: Test results from this visit will be discussed in further detail at your follow- up appointment, if applicable. Discharge Plan Admission Admit Date/Time: 07/15/22 21:27 Primary Reason for Your Visit: Alcohol detox Attending Provider: Kimberly Márquez Primary Care Provider: Cassie Physician,No Primary Consulting Providers: Alisha Mcintyre ; Brittny Cope Instructions Patient Instructions: Alcohol Addiction, Addiction: Getting Help, Addiction: Your Treatment Options, Addiction Recovery Counseling Additional Instructions / Restrictions: -You will be given a list of primary care physicians prior to discharge. It is advised that you follow up with a primary care physician within 1 week of discharge. -You requested an inhaler on discharge, this will be sent to the [facility] [place] ([facility]) retail pharmacy -Please return to the emergency department or call 911 for any concerning signs or symptoms. Discharge Orders/Prescriptions Prescriptions: New albuterol sulfate [Proventil HFA] 90 mcg/actuation HFA aerosol inhaler 1 puff inhalation Q6H PRN (Reason: shortness of breath or wheezing) Qty: 6.7 0RF Referrals / Follow Up: Care Physician,No Primary [Primary Care Provider] - Disposition Disposition (needs filled in before D/C Order can be placed): Home, Self Care
--- NOTE | 2022-07-18 10:47 | CASEMGMT ---
FRANCESCA HONG made aware pt does not have PCP. FRANCESCA HONG into pt room, provided pt with a local healthcare directory pamphlet. Pt denies further needs.
--- NOTE | 2022-07-18 10:59 | PCM.DC.SUM ---
Providers Date of Admission: 07/15/22 Date of Discharge: 07/18/22 Primary Care Physician: No Primary Care Phys Reason For Visit: ETOH ABUSE/DETOX Diagnosis Discharge Diagnosis (1) Alcohol abuse: Status: Acute Code(s): F10.10 - Alcohol abuse, uncomplicated (2) Acute alcohol withdrawal: Status: Resolved Medications at Discharge Home Medications albuterol sulfate 90 mcg/actuation aerosol inhaler (Proventil HFA) 1 puff inhalation Q6H PRN shortness of breath or wheezing #6.7 grams 07/18/22 Hospital Course Operations None Procedures None Summary of Care Provided Minutes Spent on Discharge: 15 Hospital Course: Jesse Mcneill is a 46 y/o M w/ PMHx: ? CVA, HTN, COPD/asthma, Former Tobacco use/Daily Cannabis user, Polysubstance abuse including Opiates/Cannabis/Methamphetamines, EtOH abuse (4-6 beers daily, occasional whiskey) recently at [facility] for detoxification 03/19/22 and most recently 05/23/22 discharged to residential treatment program but left after 2 days with additionally recent 07/09/22 ED evaluation for COPD/asthma exacerbation at that time discharged on prednisone/inhaler regimen who now re-presented to the [facility] ED on 07/15/22 with history of ongoing EtOH abuse since leaving residential program with requested detoxification.He notes last drink was several hours prior to ED presentation. He had a UDS positive for amphetamines, MDMA, and cannabinoids and ETOH negative. He was admitted for ETOH detox. Pt refused probarbital taper during admission. Pt had CIWA max of 5 during admission. Pt doing well on day of d/c with no vital instability. Pt discharged in stable condition Physical Exam Const alert and no apparent distress Constitutional Narrative: Oriented HEENT normocephalic and head/scalp atraumatic Eyes Eyes Narrative: EOM grossly intact, anicteric Neck supple Resp normal respiratory effort and clear to auscultation bilaterally Cardio regular rate and regular rhythm GI soft to palpation, non-tender and non-distended Extremity Extremity Narrative: No edema appreciated Neuro moves all extremities Neuro Narrative: No overt focal deficits appreciated Psych Psych Narrative: Pt superficially cooperative Medical Records Data Medical Nutrition Assessment Dietitian: Malnutrition Criteria Met Start: 07/16/22 10:10 Freq: Status: Active Protocol: Document 07/16/22 10:10 AG (Rec: 07/16/22 10:10 [id number]) Nutrition Malnutrition Evidence of Malnutrition Exists Yes Malnutrition (moderate): Chronic Evidenced By Suboptimal Energy Intake ( Moderate),Weight Loss ( Moderate),Physical Changes ( Mild) Clinical Problem Chronic Disease or Condition Related Malnutrition Etiology moderate, chronic malnutrition related to inadequate protein /calorie intake in context of substance abuse Signs/Symptoms as evidenced by mild muscle wasting/fat loss evident per physical exam in orbital, temporal, clavicle and acromion areas; estimated PO intake meeting <75% of estimated energy needs >3 months; BMI 19.6 Status Active Problem Recommendation Dietitian Recommendations/Changes regular diet as tolerated w/ snacks TID as ordered; continue ensure plus high protein 120mL 4x/day w/ medpass given signs/symptoms of malnutrition Weight / BMI Weight Weight: 55 kg Body Mass Index (BMI) 19.5 ABG / Lab / Microbiology Data Result Diagrams: 07/15/22 21:27 07/15/22 21:27 D/C Instructions Discharge Diet: No restrictions Meaningful Use Info Meaningful Use Diagnoses (Choose all that apply): None applicable Discharge Plan Admission Admit Date/Time: 07/15/22 21:27 Primary Reason for Your Visit: Alcohol detox Attending Provider: Kimberly Márquez Primary Care Provider: Care Physician,No Primary Consulting Providers: Alisha Mcintyre ; Brittny Cope Instructions Patient Instructions: Alcohol Addiction, Addiction: Getting Help, Addiction: Your Treatment Options, Addiction Recovery Counseling Additional Instructions / Restrictions: -You will be given a list of primary care physicians prior to discharge. It is advised that you follow up with a primary care physician within 1 week of discharge. -You requested an inhaler on discharge, this will be sent to the [facility] ([facility]) retail pharmacy -Please return to the emergency department or call 911 for any concerning signs or symptoms. Discharge Orders/Prescriptions Prescriptions: New albuterol sulfate [Proventil HFA] 90 mcg/actuation HFA aerosol inhaler 1 puff inhalation Q6H PRN (Reason: shortness of breath or wheezing) Qty: 6.7 0RF Referrals / Follow Up: Care Physician,No Primary [Primary Care Provider] - Disposition Disposition (needs filled in before D/C Order can be placed): Home, Self Care Charges/Coding Visit Charges Inpatient E&M: 07865 [facility] Hosp L1
--- NOTE | 2022-07-18 11:09 | NURSING ---
pt left floor before being given dc inst/ paperwork. mariang rn aware.
== END 2022-07-18 11:11 | disposition home or self-care (01) | DRG 773 ==
LOC: ED 21:29 → MS3 21:41
PROVIDERS: Admitting Provider Family Medicine; Emergency Provider Emergency Medicine; Visit Provider Internal Medicine
DX: F10.239 Alcohol dependence with withdrawal, unspecified (principal); F11.10 Opioid abuse, uncomplicated; E44.0 Moderate protein-calorie malnutrition; J43.9 Emphysema, unspecified; F15.10 Other stimulant abuse, uncomplicated; I69.320 Aphasia following cerebral infarction; I10 Essential (primary) hypertension; F41.9 Anxiety disorder, unspecified; K21.9 Gastro-esophageal reflux disease without esophagitis; F12.10 Cannabis abuse, uncomplicated; Z68.1 Body mass index [BMI] 19.9 or less, adult; F32.A Depression, unspecified; Z87.891 Personal history of nicotine dependence
CPT/HCPCS: 80048; 80076; 80307; 82077; 83735; 84100; 85025; 94640; 97802; 99284; J7120; A4216

== ENCOUNTER 2022-07-26 17:37 | Emergency (ER) | payer MEDICAID, SELFPAY ==
[2022-07-26 17:37] VITALS: BP 135/93; PULSE 75; RESP 14; TEMP 36.8; O2SAT 100; BMI 20.9
[2022-07-26 18:25] VITALS: O2SAT 98
[2022-07-26] MEDS: Albuterol 2.5 MG/3 ML VIAL.NEB. INHALATION (18:36)
[2022-07-26] MEDS: Ipratropium/Albuterol Sulfate 3 ML AMPUL.NEB INHALATION (18:37)
[2022-07-26 18:38] VITALS: PULSE 70; RESP 16; O2SAT 96
--- NOTE | 2022-07-26 18:45 | RAD_ITS ---
STUDY: X-RAY CHEST REASON FOR EXAM: Male, 46 years old. cough TECHNIQUE: XR Chest 1 View COMPARISON: 03.28.22 FINDINGS: There is atherosclerotic calcification of the aortic arch with tortuosity. There are diffuse degenerative changes of the visualized thoracic spine. There is degenerative osteoarthritis of the bilateral shoulders. There is no demonstrated pleural abnormality. Normal size heart. Normal mediastinum and tello. Normal visualized pulmonary arteries. There is no demonstrated abnormality of the visualized soft tissue structures of the upper abdomen. RAD/Chest 1 View (Portable) IMPRESSION: There are no acute findings. Electronically Signed: Dutch Momin MD at 19:10 EDT ,
[2022-07-26] MEDS: predniSONE 20 MG Tablet 60 MG PO (18:54)
--- NOTE | 2022-07-26 18:59 | ED.VIS.DYS ---
HPI History of Present Illness Chief Complaint: Cough Informant: patient Narrative Narrative: Patient has a history of asthma. He states he has no medicines at home. He started wheezing today. He does not know what started it. Denies fevers chills sweats or chest pain. He states is just tight breathing. He needs a breathing treatment. He states that the only thing will make it better. He is a lifelong non-smoker. PFSH PFSH Medical History Active substance abuse Alcohol abuse Anxiety and depression Asthma with COPD Bull[place] of lung GERD (gastroesophageal reflux disease) Hypertension Inguinal hernia bilateral, non-recurrent Methamphetamine abuse Stroke/cerebrovascular accident Tobacco use Home Medications albuterol sulfate 90 mcg/actuation aerosol inhaler (Proventil HFA) 1 puff inhalation Q6H PRN shortness of breath or wheezing #6.7 grams 07/18/22 [Rx Last Taken Unknown] albuterol sulfate 90 mcg/actuation aerosol inhaler (Ventolin HFA) 2 puff inhalation Q4H PRN PRN Wheezing ##1 07/26/22 [Rx Last Taken Unknown] prednisone 20 mg tablet 60 mg PO DAILY #15 tabs 07/26/22 [Rx Last Taken Unknown] Allergy/AdvReac Type Severity Reaction Status Date / Time No Known Allergies Allergy Verified 07/26/22 17:39 Family History Father Alcoholism CAD (coronary artery disease) Heart disease Hypertension Mother Alcoholism Seizures Surgical History History of ankle surgery Social History housing: homeless Smoking Status: Former smoker how long ago did patient quit smoking: Former occasional cigarette user. Still smokes cannabis, often daily. alcohol intake: current details: 5-6 beers daily, whiskey. substance use type: marijuana, opiates and methamphetamine ROS ROS ED Constitutional Constitutional ED: Denies chills or fever(s) ENT ENT ED: Denies rhinorrhea or sore throat Cardiovascular Cardiovascular: Denies chest pain or palpitations Respiratory/Chest Respiratory/Chest: Reports cough and dyspnea; Denies sputum Gastrointestinal Gastrointestinal: Denies nausea or vomiting Musculoskeletal Musculoskeletal: Denies arthralgias or myalgias Integumentary Denies rash Neurologic Neurologic: Denies headache(s), paresthesias or weakness Psychiatric Psychiatric: Denies anxiety Endocrine Endocrinology: Denies polydipsia or polyuria Hematologic/Lymphatic Hematologic/Lymphatic: Denies easy bleeding or easy bruising Allergic/Immunologic Allergic/Immunologic ED: Denies urticaria EXAM Physical Exam Const Vital Signs: 07/26/22 17:37 07/26/22 18:25 07/26/22 18:38 Temperature 98.3 F Temperature Source Temporal Pulse Rate 75 70 Respiratory Rate 14 16 Respiratory Effort Short of Breath Respiratory Depth Normal Respiratory Pattern Normal Normal Blood Pressure 135/93 H Blood Pressure Mean 107 Pulse Ox 100 Oxygen Delivery Method Room Air Room Air 07/26/22 18:38 07/26/22 20:37 07/26/22 21:54 Temperature Temperature Source Pulse Rate 64 63 Respiratory Rate 16 16 Respiratory Effort Short of Breath Respiratory Depth Respiratory Pattern Normal Blood Pressure 132/73 H 127/84 H Blood Pressure Mean 92 98 Pulse Ox 97 97 Oxygen Delivery Method Room Air Room Air Room Air Positive well nourished and well developed Constitutional Narrative: Patient does have obvious wheezing. General Appearance ED: well developed HEENT Reports moist mucous membranes Eyes EOMs intact bilaterally Neck no JVD Resp Resp Narrative: Patient is rather tight breathing. Coarse wheezes throughout. No rhonchi. No subcu air. Cardio regular rate and regular rhythm GI non-tender and non-distended Back/Spine no CVA tenderness Extremity normal to inspection General Extremety ED: Negative for edema or tenderness General Extremity: Negative for edema Neuro Neuro Narrative: Patient is awake alert and appropriate. He is not sleepy or lethargic. No clinical indication of retaining CO2 Skin no wounds MDM MDM MDM Narrative Medical decision making narrative: Chest x-ray showed no acute process. COVID was negative. Patient was rechecked. He was sound asleep. Breathing was easy. He was 97 to 98% on room air asleep. He still has a little bit of expiratory wheezing but he is moving much better air. He wants to go home. I will write for albuterol and give him a treatment here. We will add prednisone. Radiography Diagnostic Testing: Clinical Impression(s) from Imaging Studies Chest X-Ray 07/26/22 18:45 IMPRESSION: There are no acute findings. Electronically Signed: Dutch Momin MD at 19:10 EDT , Chest x-ray showed no acute process. This was looked at by me and read by radiology Discharge Plan Triage Chief Complaint: Cough ED Provider: Ender Garcia Dx/Rx/DC Orders Clinical Impression: Asthma exacerbation, Has run out of medications Instructions: ED Asthma, Acute (Adult) Prescriptions: New prednisone 20 mg tablet 60 mg PO DAILY Qty: 15 0RF albuterol sulfate [Ventolin HFA] 90 mcg/actuation HFA aerosol inhaler 2 puff inhalation Q4H PRN PRN (Reason: Wheezing) Qty: 1 0RF No Action albuterol sulfate [Proventil HFA] 90 mcg/actuation HFA aerosol inhaler 1 puff inhalation Q6H PRN (Reason: shortness of breath or wheezing) Qty: 6.7 0RF Primary Care Provider: Care Physician,No Primary Referrals: Toya Dotson MD [Med Staff - [employer]] - 3-5 Days Care Physician,No Primary [Primary Care Provider] - Disposition Disposition: Home, Self Care
[2022-07-26 20:37] VITALS: BP 132/73; PULSE 64; RESP 16; O2SAT 97
[2022-07-26 21:54] VITALS: BP 127/84; PULSE 63; RESP 16; O2SAT 97
[2022-07-26 22:29] VITALS: O2SAT 98
[2022-07-26] MEDS: Albuterol Sulfate 8 gm Inhaler (60 puffs) 2 PUFF INHALATION (22:30)
== END 2022-07-26 22:31 | disposition home or self-care (01) ==
PROVIDERS: Emergency Provider Emergency Medicine; Visit Provider Emergency Medicine
DX: J45.901 Unspecified asthma with (acute) exacerbation (principal); J43.9 Emphysema, unspecified; I10 Essential (primary) hypertension; Z59.00 Homelessness unspecified; Z20.822 Contact with and (suspected) exposure to COVID-19; K21.9 Gastro-esophageal reflux disease without esophagitis; Z86.73 Personal history of transient ischemic attack (TIA), and cerebral infarction without residual deficits; Z87.891 Personal history of nicotine dependence
CPT/HCPCS: 71045; 87811; 94640; 99283

== ENCOUNTER 2022-08-14 06:49 | Emergency (ER) | payer MEDICAID, SELFPAY ==
[2022-08-14 06:50] VITALS: BP 119/94; PULSE 87; RESP 20; TEMP 36.4; O2SAT 97; BMI 20.9
--- NOTE | 2022-08-14 07:09 | EDS_ITS ---
HPI History of Present Illness Chief Complaint: Other, Pain/Inj Detail of Chief Complaint: cold feet, cough Informant: patient Narrative Narrative: Patient is homeless, he presents at 7 AM because he has been outside all night and his feet/toes are cold. He has a coat, he is cold all over but his toes are cold to the point of feeling numb. He denies any pain. He has also had a cough for weeks. Occasionally feels a little dyspneic due to congestion in his nose, no known fevers or wheezing. States last time he was here he had a COVID test that was negative and it was not very long ago. He denies any injury. PFSH PFS Medical History Active substance abuse Alcohol abuse Anxiety and depression Asthma with COPD [place] of lung GERD (gastroesophageal reflux disease) Hypertension Inguinal hernia bilateral, non-recurrent Methamphetamine abuse Stroke/cerebrovascular accident Tobacco use Home Medications albuterol sulfate 90 mcg/actuation aerosol inhaler (Proventil HFA) 1 puff inhalation Q6H PRN shortness of breath or wheezing #6.7 grams 07/18/22 [Rx Last Taken Unknown] albuterol sulfate 90 mcg/actuation aerosol inhaler (Ventolin HFA) 2 puff inhalation Q4H PRN PRN Wheezing ##1 07/26/22 [Rx Last Taken Unknown] Allergy/AdvReac Type Severity Reaction Status Date / Time No Known Allergies Allergy Verified 08/14/22 06:53 Family History Father Alcoholism CAD (coronary artery disease) Heart disease Hypertension Mother Alcoholism Seizures Surgical History History of ankle surgery Social History housing: homeless Smoking Status: Former smoker how long ago did patient quit smoking: Former occasional cigarette user. Still smokes cannabis, often daily. alcohol intake: current details: 5-6 beers daily, whiskey. substance use type: marijuana, opiates and methamphetamine ROS ROS ED Constitutional Constitutional ED: Denies chills or fever(s) Eyes Eyes: Denies change in vision or diplopia ENT ENT ED: Reports nasal congestion and rhinorrhea; Denies sore throat Cardiovascular Cardiovascular: Denies chest pain or palpitations Respiratory/Chest Respiratory/Chest: Reports cough; Denies dyspnea Gastrointestinal Gastrointestinal: Denies abdominal pain, diarrhea, nausea or vomiting Genitourinary Genitourinary ED: Denies dysuria or hematuria Musculoskeletal Musculoskeletal: Denies back pain or neck pain Integumentary Denies abscess or rash Neurologic Neurologic: Reports paresthesias RLE and LLE; Denies headache(s) or weakness Psychiatric Psychiatric: Denies anxiety or suicidal thoughts EXAM Physical Exam Const Vital Signs: 08/14/22 06:50 08/14/22 06:58 Temperature 97.5 F L Temperature Source Temporal Pulse Rate 87 Respiratory Rate 20 H Respiratory Effort Normal Respiratory Pattern Normal Blood Pressure 119/94 H Blood Pressure Mean 102 Pulse Ox 97 Oxygen Delivery Method Room Air Positive well nourished and well developed General Appearance ED: well developed and NAD HEENT Reports moist mucous membranes HEENT Narrative: Audible nasal congestion. No stridor or objective dyspnea. normocephalic and atraumatic Eyes PERRL and EOMs intact bilaterally Neck full ROM, no lymphadenopathy and supple Resp normal respiratory effort and clear to auscultation bilaterally Cardio regular rate, regular rhythm and no murmurs Rate: Negative for tachycardic GI non-tender and non-distended Palpation: soft Back/Spine no CVA tenderness General Back: other FROM Extremity Extremity Narrative: Nontender pallor distal great toes only, they are cold. Brisk cap refill throughout all other toes distally which are pink. 2+/4 dorsalis pedis pulses. Patient is under about 5 warm blankets. General Extremety ED: Negative for edema, pulses abnormal or tenderness General Extremity: Negative for edema or pulses abnormal Neuro oriented x3, CN's II-XII intact bilaterally and no sensory deficits noted Sensorium / Orientation: awake and alert Motor Exam: strength 5/5 throughout Psych mental status grossly normal Psych Narrative: Goal-directed thoughts, not actively suicidal, does not appear to be under the influence of any substance. Skin no rashes or lesions noted and no wounds Skin Narrative: Including feet and plantar aspects. MDM MDM MDM Narrative Medical decision making narrative: Patient does not appear to have any injury. He likely has a cold, his vital signs are normal and he is not hypoxic. He was put under blankets by nursing staff prior to me seeing him, and by the time I evaluated his feet he said that her already feeling a lot better. Patient understands this is not a chcf, after we allow him to get warmed up and get something to drink, he will be discharged. Was given a dose of Robitussin-DM. He presents on the weekend when social work is not available. Discharge Plan Triage Chief Complaint: Other, Pain/Inj ED Provider: Provider,Ed Physician Dx/Rx/DC Orders Clinical Impression: Viral URI with cough, Cold feet Instructions: ED URI, Viral, No Abx (Adult) Prescriptions: No Action albuterol sulfate [Proventil HFA] 90 mcg/actuation HFA aerosol inhaler 1 puff inhalation Q6H PRN (Reason: shortness of breath or wheezing) Qty: 6.7 0RF albuterol sulfate [Ventolin HFA] 90 mcg/actuation HFA aerosol inhaler 2 puff inhalation Q4H PRN PRN (Reason: Wheezing) Qty: 1 0RF Primary Care Provider: Care Physician,No Primary Referrals: Leslie Talley [Non-Staff] - As Needed Care Physician,No Primary [Primary Care Provider] - Disposition Disposition: Home, Self Care
[2022-08-14] MEDS: guaiFENesin Dm 10 ML UDC PO (07:58)
[2022-08-14 08:13] VITALS: BP 133/90; PULSE 87; RESP 16; O2SAT 98
== END 2022-08-14 08:20 | disposition home or self-care (01) ==
PROVIDERS: Emergency Provider Emergency Medicine; Visit Provider Emergency Medicine
DX: J06.9 Acute upper respiratory infection, unspecified (principal); M79.671 Pain in right foot; M79.672 Pain in left foot; I10 Essential (primary) hypertension; J45.909 Unspecified asthma, uncomplicated; Z59.00 Homelessness unspecified; Z87.891 Personal history of nicotine dependence
CPT/HCPCS: 99283

== ENCOUNTER 2022-09-05 10:14 | Emergency (ER) | payer MEDICAID, SELFPAY ==
[2022-09-05 10:15] VITALS: BP 119/90; PULSE 114; RESP 22; TEMP 38.2; O2SAT 97; BMI 20.9
[2022-09-05] MEDS: Ipratropium/Albuterol Sulfate 3 ML AMPUL.NEB INHALATION (11:07)
[2022-09-05 11:08] VITALS: PULSE 108; RESP 120
--- NOTE | 2022-09-05 11:09 | EDS_ITS ---
HPI History of Present Illness Chief Complaint: Shortness of Breath Informant: patient Onset/Context/Timing Onset: Weeks (1) Context: sudden Timing: Continuous Quality: Positive for Wheezing Worsened by: Nothing Relieved by: Nothing Associated Symptoms cough and white sputum Chest Pain: Positive for Aching Narrative Narrative: Patient presents with shortness of breath that has been getting worse over the past week. Patient states it began rather suddenly. Patient states the cough has been constant. Patient states he is coughing up some white sputum. Patient admits to some rhinorrhea. Patient admits to subjective fevers and chills. P atient states he has generalized aches. Patient states he has pain in his chest with coughing. Patient states nothing makes his symptoms better nothing makes them worse. PFSH PFSH Medical History Active substance abuse Alcohol abuse Anxiety and depression Asthma with COPD [place] of lung GERD (gastroesophageal reflux disease) Hypertension Inguinal hernia bilateral, non-recurrent Methamphetamine abuse Stroke/cerebrovascular accident Tobacco use Home Medications albuterol sulfate 90 mcg/actuation aerosol inhaler (Proventil HFA) 1 puff inhalation Q6H PRN shortness of breath or wheezing #6.7 grams 07/18/22 [Rx Last Taken Unknown] albuterol sulfate 90 mcg/actuation aerosol inhaler (Ventolin HFA) 2 puff inhalation Q4H PRN PRN Wheezing ##1 07/26/22 [Rx Last Taken Unknown] oseltamivir 75 mg capsule 75 mg PO BID #10 CAPSULES 09/05/22 [Rx Last Taken Unknown] Allergy/AdvReac Type Severity Reaction Status Date / Time No Known Allergies Allergy Verified 08/14/22 06:53 Family History Father Alcoholism CAD (coronary artery disease) Heart disease Hypertension Mother Alcoholism Seizures Surgical History History of ankle surgery Social History housing: homeless Smoking Status: Former smoker how long ago did patient quit smoking: Former occasional cigarette user. Still smokes cannabis, often daily. alcohol intake: current details: 5-6 beers daily, whiskey. substance use type: marijuana, opiates and methamphetamine ROS ROS ED Constitutional Constitutional ED: Reports chills and fever(s) Eyes Eyes: Denies blurry vision or change in vision ENT ENT ED: Denies rhinorrhea or sore throat Cardiovascular Cardiovascular: Reports chest pain; Denies palpitations Respiratory/Chest Respiratory/Chest: Reports cough and dyspnea Gastrointestinal Gastrointestinal: Denies nausea or vomiting Genitourinary Genitourinary ED: Denies dysuria or hematuria Musculoskeletal Musculoskeletal: Reports back pain, myalgias and neck pain Integumentary Reports abscess; Denies rash Neurologic Neurologic: Denies headache(s) or weakness Allergic/Immunologic Allergic/Immunologic ED: Denies mouth swelling or urticaria EXAM Physical Exam Const Vital Signs: 09/05/22 10:15 09/05/22 11:05 09/05/22 11:08 Temperature 100.8 F H Temperature Source Temporal Pulse Rate 114 H 108 H Respiratory Rate 22 H 120 H Respiratory Effort Non-Labored Short of Breath Blood Pressure 119/90 H Blood Pressure Mean 99 Pulse Ox 97 Oxygen Delivery Method Room Air Positive well nourished and well developed General Appearance ED: well developed HEENT Reports moist mucous membranes Neck supple and no JVD Resp normal respiratory effort Auscultation: wheezes expiratory wheezes and throughout Cardio regular rate, regular rhythm and no murmurs GI normal to inspection, nondistended, normoactive bowel sounds and non-tender Palpation: soft Extremity normal to inspection General Extremety ED: Negative for edema or tenderness General Extremity: Negative for edema Neuro oriented x3, CN's II-XII intact bilaterally and no sensory deficits noted Sensorium / Orientation: alert Motor Exam: strength 5/5 throughout Psych mental status grossly normal Skin no rashes or lesions noted MDM MDM MDM Narrative Medical decision making narrative: Patient was given a DuoNeb aerosol here. PA and lateral chest x-ray was obtained. There are 2 views. On my interpretation, there is a right upper lobe infiltrate. Bony thorax is normal. Radiologist also interpreted the x-ray and agrees. COVID-19 rapid antigen was obtained and was negative. Influenza swab was obtained and was positive for influenza A. Patient was given a dose of Tamiflu here. Patient felt better on reevaluation. Patient was given a prescription for Tamiflu. Patient was advised that the infiltrate on his chest x-ray is likely due to the influenza. I do not feel he needs antibiotic therapy at this time. Patient was instructed to follow-up with his primary care physician in 5 to 7 days for reevaluation. Patient understood and was agreeable with the plan. All questions were answered. Radiography Chest X-Ray - ED: 2 View, Read by ED Physician, Read by Radiologist and Right Infiltrate Diagnostic Testing: Clinical Impression(s) from Imaging Studies Chest X-Ray 09/05/22 11:15 IMPRESSION: Findings suggestive of a new focal infiltrate superimposed on chronic scarring in the right upper lobe. Follow-up is recommended. Electronically Signed: Juan Daniel Alvarez MD at 11:53 EST , Discharge Plan Triage Chief Complaint: Shortness of Breath ED Provider: Graham Messina Dx/Rx/DC Orders Clinical Impression: Influenza A, Right upper lobe pulmonary infiltrate Instructions: ED Influenza (Adult) Prescriptions: New oseltamivir [oseltamivir] 75 MG capsule 75 mg PO BID Qty: 10 0RF No Action albuterol sulfate [Proventil HFA] 90 mcg/actuation HFA aerosol inhaler 1 puff inhalation Q6H PRN (Reason: shortness of breath or wheezing) Qty: 6.7 0RF albuterol sulfate [Ventolin HFA] 90 mcg/actuation HFA aerosol inhaler 2 puff inhalation Q4H PRN PRN (Reason: Wheezing) Qty: 1 0RF Primary Care Provider: Care Physician,No Primary Referrals: Milton Ding MD [Med Staff - Active Staff] - 5-7 Days Care Physician,No Primary [Primary Care Provider] - Disposition Disposition: Home, Self Care
--- NOTE | 2022-09-05 11:15 | RAD_ITS ---
STUDY: X-RAY CHEST REASON FOR EXAM: Male, 46 years old. Shortness of breath and wheezing. Cough. TECHNIQUE: PA and lateral views of the chest. COMPARISON: Comparison is made with prior study 07/26/2022. FINDINGS: Since prior study, there has been progressive infiltrate in the right upper lobe. This may represent a focal pneumonic infiltrate superimposed on chronic scarring in the right upper lobe. There is no demonstrated pleural abnormality. Normal size heart. Normal mediastinum and tello. Normal visualized pulmonary arteries. Normal visualized aortic arch and descending thoracic aorta. There are degenerative changes of the visualized thoracic spine. Normal visualized ribs, clavicles, and shoulders. There is no demonstrated abnormality of the visualized soft tissue structures of the upper abdomen. RAD/Chest PA and Lateral IMPRESSION: Findings suggestive of a new focal infiltrate superimposed on chronic scarring in the right upper lobe. Follow-up is recommended. Electronically Signed: Juan Daniel Alvarez MD at 11:53 EST ,
[2022-09-05] MEDS: Oseltamivir Phosphate 75 MG Capsule PO (12:15)
--- NOTE | 2022-09-05 12:20 | ED.RN ---
DISCUSSED THE FLU AND VIRUSES WITH PT. GAVE TAMIFLU REVIEWED MED BENEFITS AND HOW TO TAKE AT HOME. DISCUSSED PLAN OF CARE AND TREATMENT FOR FLU. REINFORCED TEACHING. PT VERBALIZED UNDERSTANDING.
--- NOTE | 2022-09-05 13:05 | ED.RN ---
THIS RN RECEIVED A CALL FROM THE PHARMACIST AT [facility]. REPORTS PT WAS PRESENT IN THE PHARMACY CLAIMING HE WAS SUPPOSED TO RECEIVE AN INHALER. THIS RN SPOKE WITH DR. BYRD GIVES THIS RN AMARJIT; ORDERED FOR ONE ALBUTEROL MDI WITH 2 PUFFS Q4-6 HOURS NEEDED FOR SOB.
== END 2022-09-05 12:25 | disposition home or self-care (01) ==
PROVIDERS: Emergency Provider Emergency Medicine; Visit Provider Emergency Medicine
DX: J10.1 Influenza due to other identified influenza virus with other respiratory manifestations (principal); R91.8 Other nonspecific abnormal finding of lung field; F12.90 Cannabis use, unspecified, uncomplicated; Z87.891 Personal history of nicotine dependence; Z86.73 Personal history of transient ischemic attack (TIA), and cerebral infarction without residual deficits
CPT/HCPCS: 71046; 87428; 94640; 99283

== ENCOUNTER 2022-09-09 01:52 | Emergency (ER) | payer MEDICAID, SELFPAY ==
[2022-09-09 01:54] VITALS: BP 127/85; PULSE 64; RESP 19; TEMP 36.4; O2SAT 94; BMI 19.6
[2022-09-09 01:56] VITALS: BP 127/85; PULSE 64; RESP 19; TEMP 36.4; O2SAT 94; O2SAT 95
--- NOTE | 2022-09-09 02:57 | RAD_ITS ---
EXAM: XR CHEST, 2 VIEWS CLINICAL INDICATION: cough TECHNIQUE: Frontal and lateral views of the chest. This report was created using [employer] [place] report generation technology. COMPARISON: 09/05/2022 FINDINGS: LUNGS AND PLEURAL SPACES: Mild patchy right upper lobe airspace disease superimposed on some chronic scarring suggesting pneumonia. No pneumothorax. No effusion. HEART: Unremarkable. Cardiac silhouette not enlarged. MEDIASTINUM: Central airways and mediastinal contour are unremarkable. BONES/JOINTS: Unremarkable. SOFT TISSUES: Unremarkable. RAD/Chest PA and Lateral IMPRESSION: Mild patchy right upper lobe airspace disease superimposed on some chronic scarring suggesting pneumonia. Electronically Signed: Dutch Bocanegra MD at 3:58 EST ,
[2022-09-09 03:01] VITALS: PULSE 78; RESP 16; RESP 18; O2SAT 98
[2022-09-09] MEDS: Ipratropium/Albuterol Sulfate 3 ML AMPUL.NEB INHALATION (03:01)
--- NOTE | 2022-09-09 04:13 | EX.ED.DYSGE1 ---
HPI History of Present Illness Chief Complaint: Cough Narrative Narrative: Patient is a 46-year-old male who was seen on September 05 for cough and congestion. He states at that time he had an x-ray which showed a touch of pneumonia. He states he was given a 5-day course of treatment and seemed to have improvement for the first few days but now his cough has returned and secondary to this he presents for repeat evaluation. [facility] Medical History Active substance abuse Alcohol abuse Anxiety and depression Asthma with COPD Bull[place] of lung GERD (gastroesophageal reflux disease) Hypertension Inguinal hernia bilateral, non-recurrent Methamphetamine abuse Stroke/cerebrovascular accident Tobacco use Home Medications albuterol sulfate 90 mcg/actuation aerosol inhaler (Proventil HFA) 1 puff inhalation Q6H PRN shortness of breath or wheezing #6.7 grams 07/18/22 [Rx Last Taken Unknown] albuterol sulfate 90 mcg/actuation aerosol inhaler (Ventolin HFA) 2 puff inhalation Q4H PRN PRN Wheezing ##1 07/26/22 [Rx Last Taken Unknown] oseltamivir 75 mg capsule 75 mg PO BID #10 CAPSULES 09/05/22 [Rx Last Taken Unknown] albuterol sulfate 90 mcg/actuation aerosol inhaler (Ventolin HFA) 1 - 2 puff inhalation Q4H PRN PRN Wheezing #1 device 09/09/22 [Rx Last Taken Unknown] prednisone 20 mg tablet 40 mg PO DAILY 5 days #10 tabs 09/09/22 [Rx Last Taken Unknown] promethazine 6.25 mg-codeine 10 mg/5 mL syrup 5 ml PO 4X/DAY PRN PRN cough 7 days #140 mL 09/09/22 [Rx Last Taken Unknown] Allergy/AdvReac Type Severity Reaction Status Date / Time No Known Allergies Allergy Verified 09/09/22 01:54 Family History Father Alcoholism CAD (coronary artery disease) Heart disease Hypertension Mother Alcoholism Seizures Surgical History History of ankle surgery Social History housing: homeless Smoking Status: Former smoker how long ago did patient quit smoking: Former occasional cigarette user. Still smokes cannabis, often daily. alcohol intake: current details: 5-6 beers daily, whiskey. substance use type: marijuana, opiates and methamphetamine ROS ROS ED Constitutional Constitutional ED: Denies chills or fever(s) ENT ENT ED: Reports rhinorrhea and sore throat Cardiovascular Cardiovascular: Denies chest pain Respiratory/Chest Respiratory/Chest: Reports cough; Denies dyspnea Gastrointestinal Gastrointestinal: Denies abdominal pain, diarrhea, nausea or vomiting Genitourinary Genitourinary ED: Denies dysuria Musculoskeletal Musculoskeletal: Reports myalgias Integumentary Denies rash Neurologic Neurologic: Denies headache(s) Hematologic/Lymphatic Hematologic/Lymphatic: Denies easy bleeding or easy bruising EXAM Physical Exam Const Vital Signs: 09/09/22 01:54 09/09/22 01:56 09/09/22 01:56 Temperature 97.6 F L 97.6 F L Temperature Source Temporal Temporal Pulse Rate 64 64 Respiratory Rate 19 H 19 H Respiratory Effort Normal Non-Labored Respiratory Depth Normal Respiratory Pattern Normal Blood Pressure 127/85 H 127/85 H Blood Pressure Mean 99 99 Pulse Ox 94 94 Oxygen Delivery Method Room Air Room Air Room Air 09/09/22 03:01 09/09/22 03:01 09/09/22 04:23 Temperature Temperature Source Pulse Rate 78 85 Respiratory Rate 16 18 18 Respiratory Effort Normal Short of Breath Respiratory Depth Normal Respiratory Pattern Normal Normal Blood Pressure Blood Pressure Mean Pulse Ox 98 96 Oxygen Delivery Method Room Air Positive well nourished and well developed General Appearance ED: well developed HEENT HEENT Narrative: Nasal mucosa is hyperemic and boggy with enlarged inferior nasal turbinate There is cobblestoning the posterior pharynx consistent with sinus drainage without airway edema or compromise Eyes PERRL and EOMs intact bilaterally Neck supple Neck Narrative: Positive anterior cervical lymphadenopathy noted Resp normal respiratory effort Resp Narrative: Breath sounds are diminished throughout with faint expiratory wheeze in the bilateral bases but otherwise no signs of respiratory distress Cardio regular rate and regular rhythm Extremity normal to inspection Neuro oriented x3 and CN's II-XII intact bilaterally Sensorium / Orientation: alert Psych mental status grossly normal Skin no rashes or lesions noted MDM MDM MDM Narrative Medical decision making narrative: Patient presented no acute respiratory distress satting in the mid 90s on room air. His chart was reviewed and he was positive for influenza A on September 05. At this time he is not febrile he is not in respiratory distress he is not requiring supplemental oxygen so I felt no need for repeat laboratory studies but did elect to repeat a chest x-ray to see if there is any significant change. X-ray looks similar appearance to the fifth and on reevaluation he remains in no acute distress. Patient was instructed he will continue to cough for approximately next week and will be given symptomatic medications but is otherwise safe for discharge as he is not hypoxic or in respiratory distress Radiography Diagnostic Testing: Clinical Impression(s) from Imaging Studies Chest X-Ray 09/09/22 02:57 IMPRESSION: Mild patchy right upper lobe airspace disease superimposed on some chronic scarring suggesting pneumonia. Electronically Signed: Dutch Bocanegra MD at 3:58 EST , Chest x-ray as interpreted by emergency medicine physician reveals a patchy right upper lobe airspace disease similar nature to his previous imaging Discharge Plan Triage Chief Complaint: Cough ED Provider: Andrew Henning Dx/Rx/DC Orders Clinical Impression: Influenza A, Right upper lobe pulmonary infiltrate Instructions: ED Influenza (Adult) Prescriptions: New promethazine-codeine 6.25-10 mg/5 mL syrup 5 ml PO 4X/DAY PRN PRN (Reason: cough) 7 Days Qty: 140 0RF prednisone 20 mg tablet 40 mg PO DAILY 5 Days Qty: 10 0RF albuterol sulfate [Ventolin HFA] 90 mcg/actuation HFA aerosol inhaler 1 - 2 puff inhalation Q4H PRN PRN (Reason: Wheezing) Qty: 1 0RF No Action albuterol sulfate [Proventil HFA] 90 mcg/actuation HFA aerosol inhaler 1 puff inhalation Q6H PRN (Reason: shortness of breath or wheezing) Qty: 6.7 0RF albuterol sulfate [Ventolin HFA] 90 mcg/actuation HFA aerosol inhaler 2 puff inhalation Q4H PRN PRN (Reason: Wheezing) Qty: 1 0RF oseltamivir [oseltamivir] 75 MG capsule 75 mg PO BID Qty: 10 0RF Primary Care Provider: Care Physician,No Primary Referrals: Shaina Easton MD [Med Staff - Fountain Manager] - Care Physician,No Primary [Primary Care Provider] - Disposition Disposition: Home, Self Care Discharge Date/Time: 09/09/22 04:24
[2022-09-09 04:23] VITALS: PULSE 85; RESP 18; O2SAT 96
== END 2022-09-09 04:24 | disposition home or self-care (01) ==
PROVIDERS: Emergency Provider Emergency Medicine; Visit Provider Emergency Medicine
DX: J10.1 Influenza due to other identified influenza virus with other respiratory manifestations (principal); J44.9 Chronic obstructive pulmonary disease, unspecified; F15.10 Other stimulant abuse, uncomplicated; K40.20 Bilateral inguinal hernia, without obstruction or gangrene, not specified as recurrent; I10 Essential (primary) hypertension; J98.4 Other disorders of lung; F41.9 Anxiety disorder, unspecified; F12.90 Cannabis use, unspecified, uncomplicated; F32.A Depression, unspecified; F10.10 Alcohol abuse, uncomplicated; Z86.73 Personal history of transient ischemic attack (TIA), and cerebral infarction without residual deficits; Z79.899 Other long term (current) drug therapy; Z79.52 Long term (current) use of systemic steroids; Z79.51 Long term (current) use of inhaled steroids; Z87.891 Personal history of nicotine dependence; Z59.00 Homelessness unspecified
CPT/HCPCS: G0463; 71046; 94640; 99251; 99282

== ENCOUNTER 2022-10-09 13:24 | Emergency (ER) | payer MEDICAID, SELFPAY ==
[2022-10-09 13:25] VITALS: BP 141/75; PULSE 93; RESP 18; TEMP 35.8; O2SAT 98; BMI 20.9
[2022-10-09] MEDS: Ipratropium/Albuterol Sulfate 3 ML AMPUL.NEB INHALATION (13:57)
[2022-10-09] MEDS: Albuterol 2.5 MG/3 ML VIAL.NEB. INHALATION (13:57)
[2022-10-09 13:58] VITALS: PULSE 78; RESP 18
--- NOTE | 2022-10-09 14:02 | EDS_ITS ---
HPI History of Present Illness Chief Complaint: Shortness of Breath Narrative Narrative: 46-year-old male with history of asthma presenting with wheezing and shortness of breath. He states this is ongoing for couple of weeks. Patient states that last month he was put on prednisone and had an albuterol inhaler. He is run out of his albuterol for about a day and a half. He is not having fever, chills, body aches. No nausea or vomiting. No chest pain. PFSH PFSH Medical History Active substance abuse Alcohol abuse Anxiety and depression Asthma with COPD Bull[place] of lung GERD (gastroesophageal reflux disease) Hypertension Inguinal hernia bilateral, non-recurrent Methamphetamine abuse Stroke/cerebrovascular accident Tobacco use Home Medications albuterol sulfate 90 mcg/actuation aerosol inhaler (Ventolin HFA) 1 - 2 puff inhalation Q4H PRN PRN Wheezing #1 device 09/09/22 [Rx Last Taken Unknown] albuterol sulfate 90 mcg/actuation aerosol inhaler (Ventolin HFA) 1 - 2 puff inhalation Q4H PRN PRN Wheezing #8.5 grams 10/09/22 [Rx Last Taken Unknown] prednisone 50 mg tablet 50 mg PO DAILY #5 tabs 10/09/22 [Rx Last Taken Unknown] Allergy/AdvReac Type Severity Reaction Status Date / Time No Known Allergies Allergy Verified 10/09/22 13:26 Family History Father Alcoholism CAD (coronary artery disease) Heart disease Hypertension Mother Alcoholism Seizures Surgical History History of ankle surgery Social History housing: homeless Smoking Status: Former smoker how long ago did patient quit smoking: Former occasional cigarette user. Still smokes cannabis, often daily. alcohol intake: current details: 5-6 beers daily, whiskey. substance use type: marijuana, opiates and methamphetamine ROS ROS ED Constitutional Constitutional ED: Denies chills, fever(s) or sweats Eyes Eyes: Denies blurry vision or change in vision ENT ENT ED: Denies ear pain or sore throat Cardiovascular Cardiovascular: Denies chest pain, palpitations or racing heartbeat Respiratory/Chest Respiratory/Chest: Reports cough and dyspnea; Denies sputum Gastrointestinal Gastrointestinal: Denies abdominal pain, constipation, diarrhea, nausea or vomiting Genitourinary Genitourinary ED: Denies dysuria, hematuria or urinary frequency Musculoskeletal Musculoskeletal: Denies arthralgias, myalgias or neck pain Integumentary Denies abscess, Abrasions or rash Neurologic Neurologic: Denies headache(s), paresthesias or weakness Psychiatric Psychiatric: Denies anxiety, depression, suicidal ideation or suicidal thoughts Endocrine Endocrinology: Denies polydipsia or polyuria EXAM Physical Exam Const Vital Signs: 10/09/22 13:25 10/09/22 13:37 10/09/22 13:58 Temperature 96.4 F L Temperature Source Temporal Pulse Rate 93 78 Respiratory Rate 18 18 Respiratory Effort Normal Respiratory Depth Normal Respiratory Pattern Normal Normal Blood Pressure 141/75 H Blood Pressure Mean 97 Pulse Ox 98 Oxygen Delivery Method Room Air Room Air MDM MDM MDM Narrative Medical decision making narrative: Patient presenting with shortness of breath. Has history of asthma and is wheezing on examination. He is given prednisone orally and given breathing treatments. Currently his vital signs are stable he is afebrile. He is not requiring any oxygen and is not tachypneic. After breathing treatments he reinaldo ears to be improved. I will place him on a burst of prednisone and refill his albuterol inhaler. Return precautions were discussed. Impression: 1 asthma exacerbation Lab Data Attestation: I reviewed the patient's lab results. Discharge Plan Triage Chief Complaint: Shortness of Breath ED Provider: Michael De Anda Dx/Rx/DC Orders Instructions: ED Asthma, Acute (Adult) Prescriptions: New prednisone 50 mg tablet 50 mg PO DAILY Qty: 5 0RF albuterol sulfate [Ventolin HFA] 90 mcg/actuation HFA aerosol inhaler 1 - 2 puff inhalation Q4H PRN PRN (Reason: Wheezing) Qty: 8.5 0RF No Action albuterol sulfate [Ventolin HFA] 90 mcg/actuation HFA aerosol inhaler 1 - 2 puff inhalation Q4H PRN PRN (Reason: Wheezing) Qty: 1 0RF Primary Care Provider: Care Physician,No Primary Referrals: [facility] [Outside] - 3-5 Days Disposition Disposition: Home, Self Care
[2022-10-09] MEDS: predniSONE 20 MG Tablet 60 MG PO (14:12)
[2022-10-09 14:57] VITALS: BP 115/85; PULSE 89; RESP 18; O2SAT 97
== END 2022-10-09 15:00 | disposition home or self-care (01) ==
PROVIDERS: Emergency Provider Student in an Organized Health Care Education/Training Program; Visit Provider Student in an Organized Health Care Education/Training Program
DX: J45.901 Unspecified asthma with (acute) exacerbation (principal); J43.9 Emphysema, unspecified; I10 Essential (primary) hypertension; Z59.00 Homelessness unspecified; Z87.891 Personal history of nicotine dependence; Z86.73 Personal history of transient ischemic attack (TIA), and cerebral infarction without residual deficits
CPT/HCPCS: 94640; 99283

== ENCOUNTER 2022-10-23 01:44 | Emergency (ER) | payer MEDICAID, SELFPAY ==
[2022-10-23 01:44] VITALS: BP 133/81; PULSE 96; RESP 18; TEMP 36.7; O2SAT 98; BMI 20.6
[2022-10-23] MEDS: Albuterol Sulfate 8 gm Inhaler (60 puffs) 2 PUFF INHALATION (02:29)
--- NOTE | 2022-10-23 02:34 | EX.ED.DYSGE1 ---
HPI History of Present Illness Chief Complaint: Med Refill Informant: patient Narrative Narrative: Here for needed inhaler. History of asthma. Reports last inhaler 3 days ago with weather changes will have wheezing. No current wheezing or dyspnea. Prior similar symptoms: Yes PFSH PFSH Medical History Active substance abuse Alcohol abuse Anxiety and depression Asthma with COPD [place] of lung GERD (gastroesophageal reflux disease) Hypertension Inguinal hernia bilateral, non-recurrent Methamphetamine abuse Stroke/cerebrovascular accident Tobacco use Home Medications albuterol sulfate 90 mcg/actuation aerosol inhaler (Ventolin HFA) 1 - 2 puff inhalation Q4H PRN PRN Wheezing #1 device 09/09/22 [Rx Last Taken Unknown] Allergy/AdvReac Type Severity Reaction Status Date / Time No Known Allergies Allergy Verified 10/23/22 01:47 Family History Father Alcoholism CAD (coronary artery disease) Heart disease Hypertension Mother Alcoholism Seizures Surgical History History of ankle surgery Social History housing: homeless Smoking Status: Former smoker how long ago did patient quit smoking: Former occasional cigarette user. Still smokes cannabis, often daily. alcohol intake: current details: 5-6 beers daily, whiskey. substance use type: marijuana, opiates and methamphetamine ROS ROS ED Constitutional Constitutional ED: Denies chills, fever(s) or sweats Eyes Eyes: Denies change in vision ENT ENT ED: Denies dysphagia or sore throat Cardiovascular Cardiovascular: Denies chest pain, leg edema, palpitations or racing heartbeat Respiratory/Chest Respiratory/Chest: Denies cough, dyspnea or dyspnea on exertion Gastrointestinal Gastrointestinal: Denies abdominal pain, diarrhea, nausea or vomiting Genitourinary Genitourinary ED: Denies dysuria, hematuria or urinary frequency Musculoskeletal Musculoskeletal: Denies back pain, extremity pain or neck pain Integumentary Denies rash or wounds Neurologic Neurologic: Denies headache(s), paresthesias or weakness EXAM Physical Exam Const Vital Signs: 10/23/22 01:44 Temperature 98.0 F Temperature Source Oral Pulse Rate 96 Respiratory Rate 18 Blood Pressure 133/81 H Blood Pressure Mean 98 Pulse Ox 98 Oxygen Delivery Method Room Air Positive well nourished and well developed General Appearance ED: well developed and NAD HEENT Reports moist mucous membranes normocephalic and atraumatic Eyes PERRL, EOMs intact bilaterally and conjunctivae normal General Eye ED: Yes normal appearance of both eyes Neck no lymphadenopathy and supple General: Negative for tenderness Chest Wall Chest: Negative for tenderness Resp normal respiratory effort and normal air movement Effort and Inspection: symmetric chest movement; Negative for respiratory distress Cardio regular rate, regular rhythm and no murmurs Peripheral Pulses: pulses 2+ throughout GI normal to inspection, nondistended, normoactive bowel sounds and non-tender Palpation: Negative for guarding or rebound tenderness present Back/Spine no CVA tenderness and no thoracic nor lumbar tenderness Extremity normal to inspection General Extremety ED: Negative for edema or tenderness General Extremity: Negative for edema Neuro oriented x3 and no sensory deficits noted Sensorium / Orientation: awake and alert Skin no rashes or lesions noted and no wounds MDM MDM MDM Narrative Medical decision making narrative: Vital signs stable nontoxic. History of asthma. Denies any clinical dyspnea or active wheezing for concerns for URI symptoms or viral syndrome or any pneumonia. Patient provided inhaler for the ED. Outpatient follow-up given. Discharge Plan Triage Chief Complaint: Med Refill ED Provider: Sebas Hess Dx/Rx/DC Orders Clinical Impression: Medicine refill, History of asthma Instructions: Med Refill Prescriptions: No Action albuterol sulfate [Ventolin HFA] 90 mcg/actuation HFA aerosol inhaler 1 - 2 puff inhalation Q4H PRN PRN (Reason: Wheezing) Qty: 1 0RF Primary Care Provider: Care Physician,No Primary Referrals: Leslie Talley [Non-Staff] - 1-2 Weeks Care Physician,No Primary [Primary Care Provider] - Disposition Disposition: Home, Self Care
[2022-10-23 02:37] VITALS: BP 133/81; PULSE 96; RESP 18; TEMP 36.7; O2SAT 98
== END 2022-10-23 02:37 | disposition home or self-care (01) ==
PROVIDERS: Emergency Provider Emergency Medicine; Visit Provider Emergency Medicine
DX: Z76.0 Encounter for issue of repeat prescription (principal); J43.9 Emphysema, unspecified; I10 Essential (primary) hypertension; J45.909 Unspecified asthma, uncomplicated; Z59.00 Homelessness unspecified; K21.9 Gastro-esophageal reflux disease without esophagitis; Z87.891 Personal history of nicotine dependence; Z86.73 Personal history of transient ischemic attack (TIA), and cerebral infarction without residual deficits
CPT/HCPCS: 94664; 99282

== ENCOUNTER 2022-11-03 12:57 | Emergency (ER) | payer MEDICAID, SELFPAY ==
[2022-11-03 12:58] VITALS: BP 123/87; PULSE 85; RESP 19; TEMP 36.7; O2SAT 97; BMI 21.9
[2022-11-03 13:05] VITALS: O2SAT 97
--- NOTE | 2022-11-03 13:09 | CT_ITS ---
STUDY: CT FACIAL BONES WITHOUT CONTRAST REASON FOR EXAM: Male, 46 years old. Trauma RADIATION DOSAGE (If Supplied By Facility): CTDIvol = ( 25.01 ) mGy, DLP = ( 579.93 ) mGycm TECHNIQUE: The patient was scanned in a multi detector CT scanner. Sagittal and coronal images were reconstructed. Individualized dose optimization techniques were used for this CT. COMPARISON: None. FINDINGS: Normal soft tissue structures. Normal orbital campos and orbital contents. Normal nasal bones and anterior nasal spine. Normal facial bones. There is no demonstrated fracture. Normal visualized paranasal sinuses. Findings suggestive of possible dental cavity in the right maxillary molar. CT/Sinus/Facial Bone IMPRESSION: No acute fracture is seen. Electronically Signed: Juan Daniel Alvarez MD at 14:27 EST ,
--- NOTE | 2022-11-03 13:09 | EKG12_ITS ---
Test Reason : Blood Pressure : / mmHG Vent. Rate : 085 BPM Atrial Rate : 085 BPM P-R Int : 124 ms QRS Dur : 090 ms QT Int : 394 ms P-R-T Axes : 079 074 060 degrees QTc Int : 468 ms Normal sinus rhythm Normal ECG Confirmed by AJAY WEI, PHILIP ([id number]), editorial manager PEBBLES FELICIANO ([id number]) on 11/04/2022 2:50:12 PM Referred By: AR Confirmed By:DEE DEE OMSS MD
--- NOTE | 2022-11-03 13:09 | CT_ITS ---
STUDY: CT BRAIN WITHOUT CONTRAST REASON FOR EXAM: Male, 46 years old. Facial injury due to a fall. RADIATION DOSAGE (If Supplied By Facility): CTDIvol = ( 47.06 ) mGy, DLP = ( 960.91 ) mGycm TECHNIQUE: Transaxial CT imaging of the brain was performed without administration of intravenous contrast material. Individualized dose optimization techniques were used for this CT. COMPARISON: Comparison is made with prior examination of 06/21/2021. FINDINGS: Normal soft tissue structures. Normal calvarium. Normal size ventricles and extra-axial spaces for the patient''s age. Normal white matter tracts of the cerebral hemispheres. There are small punctate calcifications of the basal ganglia which are seen in the aging brain as a normal variant. Normal brainstem. Normal cerebellum. There is no intracranial hemorrhage. There are no findings of an acute ischemic infarction. Normal visualized paranasal sinuses. CT/Brain/Head without Contrast IMPRESSION: Normal unenhanced CT scan of the brain. Electronically Signed: Juan Daniel Alvarez MD at 14:26 EST ,
--- NOTE | 2022-11-03 13:27 | EDS_ITS ---
HPI HPI - Fall History of Present Illness Chief Complaint: Fall Narrative Narrative: 46-year-old male presents from the [employer] with injury to his face, mainly his upper lip. He states that he blacked out but was unsure for how long. He sustained injury to his mucosal surface of his upper lip. He denies any neck pain. He denies taking any medications and is unsure of his last tetanus immunization. He states that he stood up and just blacked out. PFSH PFSH Medical History Active substance abuse Alcohol abuse Anxiety and depression Asthma with COPD Bull[place] of lung GERD (gastroesophageal reflux disease) Hypertension Inguinal hernia bilateral, non-recurrent Methamphetamine abuse Stroke/cerebrovascular accident Tobacco use Home Medications albuterol sulfate 90 mcg/actuation aerosol inhaler (Ventolin HFA) 1 - 2 puff inhalation Q4H PRN PRN Wheezing #1 device 09/09/22 [Rx Last Taken Unknown] Allergy/AdvReac Type Severity Reaction Status Date / Time No Known Allergies Allergy Verified 11/03/22 13:02 Family History Father Alcoholism CAD (coronary artery disease) Heart disease Hypertension Mother Alcoholism Seizures Surgical History History of ankle surgery Social History housing: homeless Smoking Status: Former smoker how long ago did patient quit smoking: Former occasional cigarette user. Still smokes cannabis, often daily. alcohol intake: current details: 5-6 beers daily, whiskey. substance use type: marijuana, opiates and methamphetamine ROS ROS ED ROS Narrative Constitutional: No fever, no chills. HEENT: No sore throat. No neck pain. No loss of vision. No rhinorrhea. Upper lip laceration. Cardiovascular: No chest pain. No palpitations. No pedal edema. Respiratory: No cough, no shortness of breath. Abdominal: No abdominal pain. No nausea. No vomiting. Genitourinary: No dysuria. No hematuria. Musculoskeletal: No myalgias. No arthralgias. Neurologic: No headaches. No dizziness. No lightheadedness. Blacked out. Skin: No rash. No change in color. Psychiatric: No depression. No anxiety. EXAM Physical Exam Narrative Exam Narrative: Afebrile. Vital signs noted. HEENT: Normocephalic. Atraumatic. PERRL, EOMI. Neck soft and supple. No point tenderness or step off. Mucosal laceration of upper lip with minimal active bleeding. Stellate with thin skin, almost complete avulsion noted. Total length approximately 2 cm. Probable total avulsion of right front tooth. Poor dentition with multiple dental caries. Dried blood bilateral nares. No active bleeding. Cardiovascular: Regular rate and rhythm. No murmurs, rubs, or gallops appreciated. Respiratory: No tachypnea. Lungs clear to auscultation bilaterally. Gastrointestinal: Abdomen soft, nontender, with normoactive bowel sounds. No rebound or guarding. Neurological: Awake. Alert. Nonfocal, nonlateralizing. Skin: No rash. Normal color. No pallor. Musculoskeletal: No pedal edema. Full range of motion extremities. Const Vital Signs: 11/03/22 12:58 11/03/22 13:05 11/03/22 14:23 Temperature 98.1 F Temperature Source Temporal Pulse Rate 85 Pulse Rate [Lying] 82 Pulse Rate [Sitting (for 1 minute prior to obtaining)] 87 Pulse Rate [Standing (for 1 minute prior to obtaining)] 93 Respiratory Rate 19 H Respiratory Effort Normal Non-Labored Respiratory Depth Normal Respiratory Pattern Normal Blood Pressure 123/87 H Blood Pressure [Lying] 119/80 Blood Pressure [Sitting (for 1 minute prior to obtaining)] 108/71 Blood Pressure [Standing (for 1 minute prior to obtaining)] 119/80 Blood Pressure Mean 99 Blood Pressure Mean [Lying] 93 Blood Pressure Mean [Sitting (for 1 minute prior to obtaining)] 83 Blood Pressure Mean [Standing (for 1 minute prior to obtaining)] 93 Pulse Ox 97 97 Oxygen Delivery Method Room Air Room Air 11/03/22 15:09 Temperature Temperature Source Pulse Rate 89 Pulse Rate [Lying] Pulse Rate [Sitting (for 1 minute prior to obtaining)] Pulse Rate [Standing (for 1 minute prior to obtaining)] Respiratory Rate 15 Respiratory Effort Respiratory Depth Respiratory Pattern Blood Pressure 122/66 H Blood Pressure [Lying] Blood Pressure [Sitting (for 1 minute prior to obtaining)] Blood Pressure [Standing (for 1 minute prior to obtaining)] Blood Pressure Mean 84 Blood Pressure Mean [Lying] Blood Pressure Mean [Sitting (for 1 minute prior to obtaining)] Blood Pressure Mean [Standing (for 1 minute prior to obtaining)] Pulse Ox 98 Oxygen Delivery Method Room Air MDM MDM MDM Narrative Medical decision making narrative: EKG will be obtained because of his reported syncopal episode. Additionally, I will obtain CT imaging of his face and of his brain. Baseline laboratories were obtained including CBC to look for anemia as a cause of his syncope, along with electrolyte imbalance in the form of BMP. Orthostatics also obtained. I reviewed his laboratory work. He has a normal white count of 5.7, hemoglobin stable at 11.8, platelet count normal at 321. Electrolyte panel shows BUN slightly elevated 25 with creatinine 0.91. Glucose appropriately elevated at 152 with a normal anion gap/low at 4. CT of the brain was obtained. I reviewed the images and see no evidence of intracranial hemorrhage on my interpretation. I also interpreted his CT of the facial bones and see no evidence of a nasal fracture. I reviewed the radiology report and they confirm that there is no hemorrhage or skull fracture or acute facial fracture noted. EKG was obtained and interpreted by myself which demonstrates normal sinus rhythm at 85 bpm without ectopy or acute ST changes. No STEMI. At this point in time, I am unsure as to the cause of his reported syncope. After lip laceration repair, I feel he can be discharged safely home with follow-up. The sutures are dissolvable as they are Vicryl and will start to come out by themselves. He was told of the risk of infection and scarring and acknowledges an understanding. Additionally, it was noted on exam that he had a right front tooth avulsion. It is no longer bleeding. He was told to follow-up with a dentist to soon as possible regarding this. I do not feel antibiotics are indicated. At this point in time, I feel he can be discharged safely home with follow-up. Return instructions were reviewed. Disposition is discharged home in stable condition. Lab Data Attestation: I reviewed the patient's lab results. Labs: Laboratory Results - last 24 hr 11/03/22 11/03/22 13:45 13:45 WBC 5.7 RBC 3.80 L Hgb 11.8 L Hct 35.4 L MCV 93.2 MCH 31.1 MCHC 33.3 RDW Std Deviation 43.3 RDW Coeff of Bridger 12.6 Plt Count 321 MPV 8.6 Immature Gran % (Auto) 0.200 Neut % (Auto) 60.9 Lymph % (Auto) 20.9 Ross % (Auto) 6.5 Eos % (Auto) 10.8 H Baso % (Auto) 0.7 Absolute Neuts (auto) 3.5 Absolute Lymphs (auto) 1.20 Nucleated RBC % 0 Sodium 140 Potassium 3.6 Chloride 107 Carbon Dioxide 29.0 Anion Gap 4 L BUN 25 H Creatinine 0.91 Estim Creat Clear Calc 88.52 Est GFR (MDRD) Af Amer 115 Est GFR (MDRD) Non-Af 95 BUN/Creatinine Ratio 27.6 H Glucose 152 H Calcium 8.6 Radiography Diagnostic Testing: Clinical Impression(s) from Imaging Studies Brain CT 11/03/22 13:09 IMPRESSION: Normal unenhanced CT scan of the brain. Electronically Signed: Juan Daniel Alvarez MD at 14:26 EST , Facial/Sinus 11/03/22 13:09 IMPRESSION: No acute fracture is seen. Electronically Signed: Juan Daniel Alvarez MD at 14:27 EST , Procedures Lacerations Upper lip laceration: Length: 0.79 in Depth: Skin Shape: Stellate Laceration repair: Irrigated, Lidocaine with epi (5 mL) and Local Suture Information: Vicryl (4.0), Simple (Total of 7 sutures) and 4-0 Discharge Plan Triage Chief Complaint: Fall ED Provider: Homar Nieves Dx/Rx/DC Orders Clinical Impression: Fall from standing, Syncope, Laceration of lip, Nasal contusion, Avulsion of tooth Instructions: ED Dental Trauma, ED Fall with Uncertain Cause, ED Laceration, Lip or Mouth, ED Nasal Contusion, ED Fainting, Uncertain Cause Prescriptions: No Action albuterol sulfate [Ventolin HFA] 90 mcg/actuation HFA aerosol inhaler 1 - 2 puff inhalation Q4H PRN PRN (Reason: Wheezing) Qty: 1 0RF Primary Care Provider: Care Physician,No Primary Referrals: Leslie Talley [Non-Staff] - 3-5 Days if not improving Care Physician,No Primary [Primary Care Provider] - Activity Restrictions/Additional Instructions: Follow-up with a dentist as soon as possible for your right front tooth avulsion. Disposition Disposition: Home, Self Care
[2022-11-03 13:56] LABS: Absolute Neutrophil Count 3.5 X10^3/uL (2.0-7.7); Basophil# 0.04 X10^3/uL; Basophil% 0.7 % (0-1); Eosinophil# 0.62 X10^3/uL; Eosinophils% 10.8 % (0-5); Hematocrit 35.4 % (40-54); Hemoglobin 11.8 g/dL (13.0-16.5); Lymphocyte % 20.9 % (19-41); Mean Corp Hgb Conc 33.3 g/dL (32-36); Mean Corpuscular Hgb 31.1 pg (27.0-32.0); Mean Corpuscular Volume 93.2 fL (80-94); Mean Platelet Vol. 8.6 fl (6.2-12.0); Monocyte# 0.37 X10^3/uL; Monocyte% 6.5 % (0-10); NRBC Flagged by Analyzer 0 % (0-5); Neutrophil # 3.49 X10^3/uL (2.7-7.7); Neutrophil % 60.9 % (47-70); Platelet Count 321 K/mm3 (150-450); RBC Distribution Width CV 12.6 % (11.6-14.6); RBC Distribution Width SD 43.3 fl (35.1-43.9); White Blood Count 5.7 K/mm3 (4.4-11.0)
[2022-11-03] MEDS: Diphth,Pertuss(Acell),Tet Vac 0.5 ML Vial IM (14:00)
[2022-11-03 14:06] LABS: Anion Gap 4 (5-15); BUN 25 mg/dL (7-18); BUN/Creat Ratio 27.6 RATIO (10-20); Calcium,Total 8.6 mg/dL (8.5-10.1); Chloride 107 mmol/L (98-107); Creatinine, Serum 0.91 mg/dL (0.70-1.30); EST Glomerular Filtration Rate 95 mL/min (>60); Est Glom Filt Rate - Afr Amer 115 mL/min (>60); Estimated Creatinine Clearance 88.52 ml/min; Glucose 152 mg/dL (74-106); Potassium 3.6 mmol/L (3.5-5.1); Sodium Level 140 mmol/L (136-145)
[2022-11-03 14:23] VITALS: BP 108/71; BP 119/80; PULSE 82; PULSE 87; PULSE 93
[2022-11-03 15:09] VITALS: BP 122/66; PULSE 89; RESP 15; O2SAT 98
[2022-11-03] MEDS: Lidocaine 1% /Epi 1:100 (20ml) 20 ML Vial INFILT (15:13)
--- NOTE | 2022-11-03 15:17 | ED.RN ---
PER DR. HAWLEY PT OKAY TO DRINK WATER WITH STRAW. PER DR. HAWLEY LEAVE LACERATION OPEN TO AIR.
--- NOTE | 2022-11-03 15:45 | ED.RN ---
PER DR. HAWLEY, PT TO BE DISCHARGED.
[2022-11-03 15:46] VITALS: BP 124/80; PULSE 72; RESP 16
== END 2022-11-03 16:01 | disposition home or self-care (01) ==
PROVIDERS: Emergency Provider Emergency Medicine; Visit Provider Emergency Medicine
DX: S01.511A Laceration without foreign body of lip, initial encounter (principal); J43.9 Emphysema, unspecified; F15.10 Other stimulant abuse, uncomplicated; R55 Syncope and collapse; S03.2XXA Dislocation of tooth, initial encounter; Z23 Encounter for immunization; W19.XXXA Unspecified fall, initial encounter; K02.9 Dental caries, unspecified; F41.9 Anxiety disorder, unspecified; J45.909 Unspecified asthma, uncomplicated; I10 Essential (primary) hypertension; E87.8 Other disorders of electrolyte and fluid balance, not elsewhere classified; F10.10 Alcohol abuse, uncomplicated; Z86.73 Personal history of transient ischemic attack (TIA), and cerebral infarction without residual deficits; Z87.891 Personal history of nicotine dependence
CPT/HCPCS: 12011; 70450; 70486; 80048; 85025; 90715; 93005; 99284

== ENCOUNTER 2022-12-01 23:23 | Emergency (ER) | payer MEDICAID, SELFPAY ==
[2022-12-01 23:24] VITALS: BP 113/70; PULSE 90; RESP 18; TEMP 36.4; O2SAT 97; BMI 20.3
--- NOTE | 2022-12-02 00:36 | EX.ED.DYSGE1 ---
HPI History of Present Illness Chief Complaint: Med Refill Narrative Narrative: 47-year-old male with history of asthma/COPD presenting for refill of his albuterol inhaler. He does not feel like he is having any asthma attack. He just states he is out of his medication. He states he is in between doctors. He states he been traveling around a lot and has not obtained follow-up. No fevers, chills, cough. No other complaints. PFSH PFSH Medical History Active substance abuse Alcohol abuse Anxiety and depression Asthma with COPD [place] of lung GERD (gastroesophageal reflux disease) Hypertension Inguinal hernia bilateral, non-recurrent Methamphetamine abuse Stroke/cerebrovascular accident Tobacco use Home Medications albuterol sulfate 90 mcg/actuation aerosol inhaler (Ventolin HFA) 1 - 2 puff inhalation Q4H PRN PRN Wheezing #1 device 09/09/22 [Rx Last Taken Unknown] albuterol sulfate 90 mcg/actuation aerosol inhaler (ProAir HFA) 2 puff inhalation Q6H PRN shortness of breath or wheezing #8.5 grams 12/02/22 [Rx Last Taken Unknown] Allergy/AdvReac Type Severity Reaction Status Date / Time No Known Allergies Allergy Verified 12/01/22 23:25 Family History Father Alcoholism CAD (coronary artery disease) Heart disease Hypertension Mother Alcoholism Seizures Surgical History History of ankle surgery Social History housing: homeless Smoking Status: Former smoker how long ago did patient quit smoking: Former occasional cigarette user. Still smokes cannabis, often daily. alcohol intake: current details: 5-6 beers daily, whiskey. substance use type: marijuana, opiates and methamphetamine ROS ROS ED Constitutional Constitutional ED: Denies chills, fever(s) or sweats Eyes Eyes: Denies blurry vision or change in vision ENT ENT ED: Denies ear pain or sore throat Cardiovascular Cardiovascular: Denies chest pain, palpitations or racing heartbeat Respiratory/Chest Respiratory/Chest: Reports other Details: Wheezing ; Denies cough, dyspnea or sputum Gastrointestinal Gastrointestinal: Denies abdominal pain, constipation, diarrhea, nausea or vomiting Genitourinary Genitourinary ED: Denies dysuria, hematuria or urinary frequency Musculoskeletal Musculoskeletal: Denies arthralgias, myalgias or neck pain Integumentary Denies abscess, Abrasions or rash Neurologic Neurologic: Denies headache(s), paresthesias or weakness Psychiatric Psychiatric: Denies anxiety, depression, suicidal ideation or suicidal thoughts Endocrine Endocrinology: Denies polydipsia or polyuria EXAM Physical Exam Const Vital Signs: 12/01/22 23:24 12/01/22 23:33 Temperature 97.6 F L Temperature Source Temporal Pulse Rate 90 Respiratory Rate 18 Respiratory Pattern Normal Blood Pressure 113/70 Blood Pressure Mean 84 Pulse Ox 97 Oxygen Delivery Method Room Air Positive well nourished General Appearance ED: NAD; Negative for pallor HEENT Reports moist mucous membranes Eyes PERRL and EOMs intact bilaterally Neck no lymphadenopathy Chest Wall inspection of chest normal Resp normal respiratory effort and clear to auscultation bilaterally Auscultation: wheezes scattered wheezes; Negative for rales or rhonchi GI normal to inspection, nondistended, normoactive bowel sounds Neuro oriented x3 and CN's II-XII intact bilaterally Sensorium / Orientation: alert Psych mental status grossly normal Skin no rashes or lesions noted General Skin Exam: Negative for jaundice or pallor MDM MDM MDM Narrative Medical decision making narrative: Patient presents for medication refill. He is well-appearing. He has minimal scant wheezing on examination. He continues to smoke cigarettes and marijuana. Patient does not feel like he is having an asthma attack. He does not want a breathing treatment he wants a refill of his albuterol. He was given 2 puffs of an albuterol inhaler here. This was sent home with him. Return precautions were discussed. Again recommended that he follow-up with a primary care provider to establish with them. Impression: 1. Medication refill 2. History of Discharge Plan Triage Chief Complaint: Med Refill ED Provider: Michael De Anda Dx/Rx/DC Orders Instructions: Med Refill Prescriptions: New albuterol sulfate [ProAir HFA] 90 mcg/actuation HFA aerosol inhaler 2 puff inhalation Q6H PRN (Reason: shortness of breath or wheezing) Qty: 8.5 0RF No Action albuterol sulfate [Ventolin HFA] 90 mcg/actuation HFA aerosol inhaler 1 - 2 puff inhalation Q4H PRN PRN (Reason: Wheezing) Qty: 1 0RF Primary Care Provider: Care Physician,No Primary Referrals: [facility] [Outside] - 3-5 Days Care Physician,No Primary [Primary Care Provider] - Disposition Disposition: Home, Self Care Discharge Date/Time: 12/02/22 00:42
[2022-12-02] MEDS: Albuterol Sulfate 8 gm Inhaler (60 puffs) 2 PUFF INHALATION (00:40)
== END 2022-12-02 00:42 | disposition home or self-care (01) ==
PROVIDERS: Emergency Provider Student in an Organized Health Care Education/Training Program; Visit Provider Student in an Organized Health Care Education/Training Program
DX: Z76.0 Encounter for issue of repeat prescription (principal); J43.9 Emphysema, unspecified; Z59.00 Homelessness unspecified; I10 Essential (primary) hypertension; Z87.891 Personal history of nicotine dependence; Z79.51 Long term (current) use of inhaled steroids
CPT/HCPCS: 94664; 99282

== ENCOUNTER 2022-12-15 18:19 | Emergency (ER) | payer MEDICAID, SELFPAY ==
[2022-12-15 18:20] VITALS: BP 126/81; PULSE 91; RESP 18; TEMP 36.6; O2SAT 99
--- NOTE | 2022-12-15 18:32 | EDS_ITS ---
HPI History of Present Illness HPI Narrative: Lacerations to his left hand that occurred 1 to 2 weeks ago while working on a trailer. Patient came in to make sure they were not infected. Chief Complaint: Laceration Informant: patient Occured/Mechanism Mechanism/Context: Yes injury and Yes blunt trauma Onset/Context/Timing Onset: Weeks Context: Sudden Onset Timing: Continuous Quality of Pain: Dull Current Severity: Mild Maximum Severity: Mild Narrative Narrative: 47-year-old male that is left-hand dominant. States he was working on a trailer about 1-1/2 weeks ago. Took off his gloves and cut his hand multiple times on aluminum on the trailer. Was not evaluated at that time. Came in today to make sure they are not infected. Prior similar symptoms: No Recent Illness/Hospitalization: No PFSH PFSH Medical History Active substance abuse Alcohol abuse Anxiety and depression Asthma with COPD [place] of lung GERD (gastroesophageal reflux disease) Hypertension Inguinal hernia bilateral, non-recurrent Methamphetamine abuse Stroke/cerebrovascular accident Tobacco use Home Medications albuterol sulfate 90 mcg/actuation aerosol inhaler (Ventolin HFA) 1 - 2 puff inhalation Q4H PRN PRN Wheezing #1 device 09/09/22 [Rx Last Taken Unknown] albuterol sulfate 90 mcg/actuation aerosol inhaler (ProAir HFA) 2 puff inhalation Q6H PRN shortness of breath or wheezing #8.5 grams 12/02/22 [Rx Last Taken Unknown] Allergy/AdvReac Type Severity Reaction Status Date / Time No Known Allergies Allergy Verified 12/15/22 18:22 Family History Father Alcoholism CAD (coronary artery disease) Heart disease Hypertension Mother Alcoholism Seizures Surgical History History of ankle surgery Social History housing: homeless Smoking Status: Former smoker how long ago did patient quit smoking: Former occasional cigarette user. Still smokes cannabis, often daily. alcohol intake: current details: 5-6 beers daily, whiskey. substance use type: marijuana, opiates and methamphetamine ROS ROS ED ROS Narrative Denies recent illness. Review of Systems ROS Unobtainable: Denies due to encephalopathy Constitutional Constitutional ED: Denies chills or fever(s) Eyes Eyes: Denies blurry vision ENT ENT ED: Denies ear pain Cardiovascular Cardiovascular: Denies chest pain Respiratory/Chest Respiratory/Chest: Denies cough or dyspnea Gastrointestinal Gastrointestinal: Denies abdominal pain Genitourinary Genitourinary ED: Denies dysuria or hematuria Musculoskeletal Musculoskeletal: Denies back pain Integumentary Denies abscess Neurologic Neurologic: Denies headache(s) Psychiatric Psychiatric: Denies anxiety Endocrine Endocrinology: Denies cold intolerance Hematologic/Lymphatic Hematologic/Lymphatic: Denies easy bleeding or easy bruising Allergic/Immunologic Allergic/Immunologic ED: Denies mouth swelling or tongue swelling EXAM Physical Exam Narrative Exam Narrative: Well-appearing 47-year-old male. Vital signs stable afebrile. HEENT exam un remarkable. Lungs clear. Heart regular rhythm. Left hand multiple old superficial lacerations to his hands. None are infected. No pus. No cellulitis. Normal flexion extension of the hand. No lymphangitic streaks. He does have dry skin on the hand. No axillary lymphadenopathy. Const Vital Signs: 12/15/22 18:20 Temperature 97.8 F Temperature Source Temporal Pulse Rate 91 Respiratory Rate 18 Blood Pressure 126/81 H Blood Pressure Mean 96 Pulse Ox 99 Oxygen Delivery Method Room Air Positive well nourished and well developed; Negative for obese, cachectic, contractures or unkempt General Appearance ED: well developed and NAD; Negative for unkempt, cachectic, contractures, cyanotic or diaphoretic Nutritional Appearance: Negative for cachectic or obese HEENT Reports moist mucous membranes normocephalic and atraumatic; Negative for trauma or tenderness Eyes PERRL and EOMs intact bilaterally Neck full ROM and supple General: Negative for tenderness Lymph Lymphatic: Negative for other Chest Wall inspection of chest normal and palpation of chest normal Chest: Negative for other Resp normal respiratory effort and clear to auscultation bilaterally Effort and Inspection: Negative for pain with movement Auscultation: Negative for rales, rhonchi or wheezes Cardio regular rate, regular rhythm, S1 normal heart sound, S2 normal heart sound and no murmurs Rate: Negative for bradycardia or tachycardic Rhythm: Negative for abnormal rhythm GI non-tender, non-distended and no masses Inspection: Negative for abdominal distention Auscultation: normoactive bowel sounds Palpation: soft; Negative for tender or guarding Back/Spine no CVA tenderness General Back: Negative for CVA tenderness Cervical Spine: Negative for cervical spine tenderness Thoracic Spine / Upper Back: Negative for thoracic spinal tenderness Lumbar Spine / Lower Back: Negative for lumbar spinal tenderness Extremity normal to inspection and full ROM Extremity Narrative: Multiple lacerations to his left hand. They are cold. Dry skin. No pus. No cellulitis. No swelling. Full range of motion. No lymphangitic streaking. No axillary lymphadenopathy. General Extremety ED: Negative for edema or other findings General Extremity: Negative for edema or other findings Neuro oriented x3, moves all extremities and no focal motor deficits Sensorium / Orientation: alert, oriented to person, oriented to place and oriented to time; Negative for orientation impaired, lethargic or stuporous Motor Exam: strength 5/5 throughout Psych mental status grossly normal Appearance: Negative for unkempt Attitude: No agitated Mood & Affect: Negative for depressed, anxious or tearful Skin Skin Narrative: Multiple sleep facial lacerations to his left hand. All old. Noninfected. Lesions: no lesions Rashes: no rashes Trauma: laceration; Negative for no lacerations or abrasions MDM MDM MDM Narrative Medical decision making narrative: Patient with things and overall in the sink. Nurse will apply antibiotic ointment and discharge him to home. He needs no repair at this time and all the wounds are a week and a half old. Currently no infection. Discharge Plan Triage Chief Complaint: Laceration ED Provider: Twan Garcia Dx/Rx/DC Orders Clinical Impression: Laceration of left hand Instructions: ED Laceration Small or ... Prescriptions: No Action albuterol sulfate [Ventolin HFA] 90 mcg/actuation HFA aerosol inhaler 1 - 2 puff inhalation Q4H PRN PRN (Reason: Wheezing) Qty: 1 0RF albuterol sulfate [ProAir HFA] 90 mcg/actuation HFA aerosol inhaler 2 puff inhalation Q6H PRN (Reason: shortness of breath or wheezing) Qty: 8.5 0RF Primary Care Provider: Care Physician,No Primary Referrals: Farooq Galloway MD [Non-Staff] - As Needed Care Physician,No Primary [Primary Care Provider] - Activity Restrictions/Additional Instructions: Wash your hand thoroughly daily. Apply antibiotic ointment to all this cuts on your left hand twice a day. Apply hand moisturizer twice a day your skin is getting very dry. Currently there is no signs of infection. Watch for pus, red streaks, fever or swelling of seen needs to be reevaluated. Disposition Disposition: Home, Self Care
[2022-12-15] MEDS: BACITRACIN/POLYMYXIN B 15 GM Tube 1 APPLIC TOPICAL (19:00)
== END 2022-12-15 19:04 | disposition home or self-care (01) ==
PROVIDERS: Emergency Provider Emergency Medicine; Visit Provider Emergency Medicine
DX: S61.412A Laceration without foreign body of left hand, initial encounter (principal); J43.9 Emphysema, unspecified; Z59.00 Homelessness unspecified; I10 Essential (primary) hypertension; Z87.891 Personal history of nicotine dependence; W26.8XXA Contact with other sharp object(s), not elsewhere classified, initial encounter
CPT/HCPCS: 99282

== ENCOUNTER 2022-12-23 20:32 | Observation (INO) | payer MEDICAID, SELFPAY ==
[2022-12-23 20:33] VITALS: BP 124/87; PULSE 102; RESP 16; TEMP 36.1; O2SAT 99; BMI 20.5
[2022-12-23 21:36] LABS: Absolute Lymphocyte Count 1.21 X10^3/uL (0.83-4.51); Absolute Neutrophil Count 4.8 X10^3/uL (2.0-7.7); Basophil# 0.05 X10^3/uL; Basophil% 0.7 % (0-1); Eosinophil# 0.49 X10^3/uL; Hematocrit 37.7 % (40-54); Hemoglobin 12.6 g/dL (13.0-16.5); Lymphocyte # 1.21 X10^3/ul (0.83-4.51); Lymphocyte % 17.4 % (19-41); Mean Corp Hgb Conc 33.4 g/dL (32-36); Mean Corpuscular Hgb 30.8 pg (27.0-32.0); Mean Corpuscular Volume 92.2 fL (80-94); Monocyte# 0.37 X10^3/uL; Monocyte% 5.3 % (0-10); NRBC Flagged by Analyzer 0 % (0-5); Neutrophil # 4.83 X10^3/uL (2.7-7.7); Neutrophil % 69.3 % (47-70); Platelet Count 285 K/mm3 (150-450); RBC Distribution Width CV 12.6 % (11.6-14.6); RBC Distribution Width SD 42.5 fl (35.1-43.9); Red Blood Count 4.09 M/mm3 (4.6-6.2)
[2022-12-23 21:50] LABS: Amphetamine Urine VISTA POSITIVE (<1000 ng/mL); Barbiturate Urine VISTA NEGATIVE (< 200 ng/mL); Benzodiazepine Urine VISTA NEGATIVE (< 200 ng/mL); Cocaine Urine VISTA NEGATIVE (< 300 ng/mL); Ecstacy Urine VISTA POSITIVE (< 500 ng/mL); Methadone Urine VISTA NEGATIVE (< 300 ng/mL); PCP Urine VISTA NEGATIVE (< 25 ng/mL); THC Urine VISTA NEGATIVE (< 50 ng/mL); Vista UDS pH Range 6
[2022-12-23 21:53] LABS: ALB/GLOB Ratio 0.9 RATIO (0.9-2.4); AST(SGOT) 49 U/L (15-37); Alanine Aminotransfer ALT/SGPT 67 U/L (16-61); Albumin, Serum 3.5 g/dL (3.2-5.0); Alkaline Phosphatase 48 U/L (45-117); Anion Gap 9 (5-15); BUN 29 mg/dL (7-18); BUN/Creat Ratio 35.4 RATIO (10-20); Calcium,Total 8.8 mg/dL (8.5-10.1); Chloride 105 mmol/L (98-107); Creatinine, Serum 0.82 mg/dL (0.70-1.30); EST Glomerular Filtration Rate 107 mL/min (>60); Est Glom Filt Rate - Afr Amer 130 mL/min (>60); Estimated Creatinine Clearance 93.74 ml/min; Globulin 3.9 g/dL (2.2-4.2); Glucose 114 mg/dL (74-106); Potassium 3.5 mmol/L (3.5-5.1); Protein, Total 7.4 g/dL (6.4-8.2); Sodium Level 139 mmol/L (136-145)
[2022-12-23 22:18] VITALS: TEMP 37.1; O2SAT 98
--- NOTE | 2022-12-23 22:19 | NURSING ---
PATIENT SIGNED RAMP CONTRACT. FORM GIVEN TO [employer] ASSISTANT.
--- NOTE | 2022-12-23 22:25 | PCM.HP.STD ---
HPI - General General Date of Admission: 12/23/22 Date of Service: 12/23/22 Chief Complaint: EtOH abuse, withdrawal. HPI Narrative The patient is a 47 y/o M w/ PMHx: Hx prior CVA, HTN, COPD/asthma, Former Tobacco use/Daily Cannabis user, Polysubstance abuse including Opiates/Cannabis/Methamphetamines, EtOH abuse (4-6 beers daily, occasional whiskey) with several admissions 2021 for alcohol detoxification, last noted 07/15/22-07/18/22 who now re-presents to the [facility] ED on 12/23/22 with onset of alcohol withdrawal reporting that he has only been occasionally drinking but reports that he drink at least a pint of whiskey earlier in the day now presenting with alcohol withdrawal symptoms and fear that if he does not seek detox treatment he will go out and continue to drink with reported nausea, tremors, agitation, tactile disturbances. Patient interested in attaining sober status. Work-up in the ED included T96.9, heart rate 102, BP 124/87, respiratory rate 16, 99% on room air, CBC with WC 7, hemoglobin 12.6, MCV 92.2, platelet 285 without marked shift, CMP with glucose 114, AST/LT 49/67 otherwise not marked appearing, UDS with positive amphetamine/MDMA, ethyl alcohol 25. [facility] Medical History (Updated 12/23/22 @ 22:[address] Alisha Mcintyre MD) Active substance abuse Alcohol abuse Anxiety and depression Asthma with COPD [place] of lung GERD (gastroesophageal reflux disease) Hypertension Inguinal hernia bilateral, non-recurrent Methamphetamine abuse Past history of chewing tobacco use Stroke/cerebrovascular accident Home Medications albuterol sulfate 90 mcg/actuation aerosol inhaler (Ventolin HFA) 1 - 2 puff inhalation Q4H PRN PRN Wheezing #1 device 09/09/22 [Rx Last Taken Unknown] albuterol sulfate 90 mcg/actuation aerosol inhaler (ProAir HFA) 2 puff inhalation Q6H PRN shortness of breath or wheezing #8.5 grams 12/02/22 [Rx Last Taken Unknown] Allergy/AdvReac Type Severity Reaction Status Date / Time No Known Allergies Allergy Verified 12/23/22 20:32 Family History Father Alcoholism CAD (coronary artery disease) Heart disease Hypertension Mother Alcoholism Seizures Surgical History History of ankle surgery Social History (Updated 12/23/22 @ 22:[address] Alisha Mcintyre MD) housing: homeless Smoking Status: Never smoker Smokeless tobacco user: chewing tobacco how long ago did patient quit smoking: Notes no cig tob use, prior chew only, ongoing cannabis use. alcohol intake: current details: 5-6 beers daily, whiskey. substance use type: marijuana, opiates and methamphetamine ROS ROS Narrative Admission Review of Systems: CONSTITUTIONAL: No weight loss, fever, chills, + weakness or fatigue. HEENT: Eyes: No visual loss, blurred vision, double vision or yellow sclerae. Ears, Nose, Throat: No hearing loss, sneezing, congestion, runny nose or sore throat. SKIN: No rash or itching, lesions, wounds. CARDIOVASCULAR: No chest pain, chest pressure or chest discomfort, palpitations, edema, orthopnea, syncopal events. RESPIRATORY: + Occasional cough, no recent increased sputum or wheezing. No hemoptysis. GASTROINTESTINAL: No anorexia, nausea, vomiting or diarrhea, abdominal pain, melena, BRBPR. GENITOURINARY: No dysuria, frequency, urgency or retention. NEUROLOGICAL: + Mild tremors, speech changes/aphasia, tactile disturbances. No headache, dizziness, syncope, paralysis, ataxia, numbness or tingling in the extremities, focal weakness, change in bowel or bladder control, seizure. MUSCULOSKELETAL: + muscle, back pain, joint pain or stiffness. HEMATOLOGIC: + anemia, bleeding or bruising. LYMPHATICS: No enlarged nodes. No history of splenectomy. PSYCHIATRIC: + history of depression or anxiety. ENDOCRINOLOGIC: No reports of sweating, cold or heat intolerance. No polyuria or polydipsia. ALLERGIES: + history of asthma, rhinitis. Vital Signs Vital Signs Vital Signs: 12/23/22 20:33 12/23/22 22:18 12/23/22 22:18 Temperature 96.9 F L 98.8 F Temperature Source Temporal Temporal Pulse Rate 102 H Respiratory Rate 16 Blood Pressure 124/87 H Blood Pressure Mean 99 Pulse Ox 99 98 Oxygen Delivery Method Room Air Room Air Weight Weight: 131 lb 3.2 oz Body Mass Index (BMI) 20.5 Physical Exam Narrative Physical Examination: General: Awake, alert, oriented x 3 and cooperative, seated upright in ED bed, mildly restless, chronic aphasia. Skin: Normal color, normal turgor, no icterus, no cyanosis except psoriatic skin change to hands. HEENT: AT/NC, EOMI, PERRLA, mildly dry MM, no carotid bruits or JVD noted. Lungs: Mildly diminished, > bases, occasional end expiratory wheeze, he notes improved from recent exacerbation, no rales or marked rhonchi. Heart: Mildly tach with regular rhythm; no gallop, rub audible. Abdomen: Soft, thins habitus, NTTP, ND, distant normal BS, + HM. Extremities: No cyanosis, clubbing, or edema. Neurological: Patient awake, alert, oriented as noted, cognitive function appears baseline intact; pupils equally reactive to light and accommodation, cranial nerves grossly normal, moving all 4 extremities, no focal deficits, strength mildly globally decreased secondary to acute presentation, impending withdrawal, chronic aphasia. Psychiatric: Affect appears flat, no acute evidence of depressive or anxiety feelings but does have underlying history. Results Lab / Micro Data Result Diagrams: 12/23/22 21:20 12/23/22 21:20 Labs: Laboratory Results - last 24 hr 12/23/22 21:20: WBC 7.0, RBC 4.09 L, Hgb 12.6 L, Hct 37.7 L, MCV 92.2, MCH 30.8, MCHC 33.4, RDW Std Deviation 42.5, RDW Coeff of Bridger 12.6, Plt Count 285, MPV 9.0, Immature Gran % (Auto) 0.300, Neut % (Auto) 69.3, Lymph % (Auto) 17.4 L, [place] % (Auto) 5.3, Eos % (Auto) 7.0 H, Baso % (Auto) 0.7, Absolute Neuts (auto) 4.8, Absolute Lymphs (auto) 1.21, Nucleated RBC % 0 12/23/22 21:20: Ethyl Alcohol 25.0 12/23/22 21:20: Urine Opiates Screen NEGATIVE, Urine Methadone Screen NEGATIVE, Ur Barbiturates Screen NEGATIVE, Ur Phencyclidine Scrn NEGATIVE, Ur Amphetamines Screen POSITIVE H, MDMA (Ecstasy) Screen POSITIVE H, U Benzodiazepines Scrn NEGATIVE, Urine Cocaine Screen NEGATIVE, U Cannabinoids Screen NEGATIVE, Ur Drug Screen Comment 12/23/22 21:20: Sodium 139, Potassium 3.5, Chloride 105, Carbon Dioxide 25.0, Anion Gap 9, BUN 29 H, Creatinine 0.82, Estim Creat Clear Calc 93.74, Est GFR (MDRD) Af Amer 130, Est GFR (MDRD) Non-Af 107, BUN/Creatinine Ratio 35.4 H, Glucose 114 H, Calcium 8.8, Total Bilirubin 0.30, AST 49 H, ALT 67 H, Alkaline Phosphatase 48, Total Protein 7.4, Albumin 3.5, Globulin 3.9, Albumin/Globulin Ratio 0.9 Assessment & Plan Assessment/Plan (1) Alcohol withdrawal: PLAN: Plan The patient is a 47 y/o M w/ PMHx: Hx prior CVA, HTN, COPD/asthma, Former Tobacco use/Daily Cannabis user, Polysubstance abuse including Opiates/Cannabis/Methamphetamines, EtOH abuse (4-6 beers daily, occasional whiskey) with several admissions 2021 for alcohol detoxification, last noted 07/15/22-07/18/22 who now re-presents to the [facility] ED on 12/23/22 with onset of alcohol withdrawal reporting that he has only been occasionally drinking but reports that he drink at least a pint of whiskey earlier in the day now presenting with alcohol withdrawal symptoms. #1. Acute EtOH Withdrawal: Will admit to [facility], routine labs obtained in the ED upon presentation and pending upon evaluation. Given interest in sobriety, will initiate and continue on protocol with taper course of Phenobarbital, as needed Catapres, gabapentin, Bentyl, Vistaril, IV fluids, IV antiemetics, Tylenol as needed for pain. Will consult Case management for assistance for transition to next level of rehabilitation care. Mag, phos pending. May add CIWA overlap with PRN ativan if symptoms notable. #2. Asthma/COPD: Not on any chronic regimen, will maintain on twice daily budesonide therapy as well as as needed albuterol, encourage tobacco cessation. #3. Hypertension: Noted previous history in the past BPs have been elevated however this is in the acute alcohol withdrawal setting, currently BP within normal range, continue monitor and add regimen if appropriate, PRN IV hydralazine in the interim. #4. Tobacco Abuse: Encouraged cessation, inpatient consultation per RT, NR if desired. #5. Anxiety and depression: Not on any regimen, likely contributing to ongoing alcohol abuse, encourage strongly follow-up with counseling with 180. #6. Polysubstance abuse: Prior presentations with UDS notable for polysubstance abuse including Opiates/Cannabis/Methamphetamines, encourage both clean and sober status, UDS of note with positive amphetamine/MDMA. CM consulted as noted. #7. Hx prior CVA w/ chronic aphasia: Poor historian, will continue asa, not on hypertensive regimen or statin therapy, BP currently in normal range but continue to monitor, encourage outpatient close follow-up #8. Normocytic anemia, chronic component: Admission hemoglobin 12.6, MCV normal range, most recently prior to this 11/03/2022 hemoglobin 11.8 however baseline had been 13-14 until then, iron panel, ferritin, guiac, vitamin B12/folic acid as patient is significant lost to follow-up risk. As noted currently on baby ASA although non-compliant with medications. #9. DVT prophylaxis: Low risk, encourage ambulation. Admission Evaluation Time spent evaluating chart, patient history, patient evaluation, care planning and discussion with specialists: 55 minutes. Charges/Coding Visit Charges Inpatient E&M: [id number] Init Hosp L2
--- NOTE | 2022-12-23 22:27 | EDS_ITS ---
HPI History of Present Illness Chief Complaint: ETOH Intox Narrative Narrative: 47-year-old male presenting for alcohol detox. He states his last drink was earlier today. He states he drank a pint of whiskey today. He states he was concerned if he did not come to the ER he would buy more pints of whiskey. He has a history of EtOH abuse. He reports that he has been drinking a few times a week. He is concerned that he might have withdrawal symptoms but he is also more concerned that he would be buying more whiskey if he leaves the hospital today. He is not actively withdrawing currently. PFSH PFSH Medical History Active substance abuse Alcohol abuse Anxiety and depression Asthma with COPD Bull[place] of lung GERD (gastroesophageal reflux disease) Hypertension Inguinal hernia bilateral, non-recurrent Methamphetamine abuse Stroke/cerebrovascular accident Tobacco use Home Medications albuterol sulfate 90 mcg/actuation aerosol inhaler (Ventolin HFA) 1 - 2 puff inhalation Q4H PRN PRN Wheezing #1 device 09/09/22 [Rx Last Taken Unknown] albuterol sulfate 90 mcg/actuation aerosol inhaler (ProAir HFA) 2 puff inhalation Q6H PRN shortness of breath or wheezing #8.5 grams 12/02/22 [Rx Last Taken Unknown] Allergy/AdvReac Type Severity Reaction Status Date / Time No Known Allergies Allergy Verified 12/23/22 20:32 Family History Father Alcoholism CAD (coronary artery disease) Heart disease Hypertension Mother Alcoholism Seizures Surgical History History of ankle surgery Social History housing: homeless Smoking Status: Former smoker how long ago did patient quit smoking: Former occasional cigarette user. Still smokes cannabis, often daily. alcohol intake: current details: 5-6 beers daily, whiskey. substance use type: marijuana, opiates and methamphetamine ROS ROS ED Constitutional Constitutional ED: Denies chills or fever(s) Eyes Eyes: Denies change in vision or diplopia ENT ENT ED: Denies rhinorrhea or sore throat Cardiovascular Cardiovascular: Denies chest pain or palpitations Respiratory/Chest Respiratory/Chest: Denies cough or dyspnea Gastrointestinal Gastrointestinal: Denies abdominal pain, constipation or nausea Genitourinary Genitourinary ED: Denies dysuria Musculoskeletal Musculoskeletal: Denies arthralgias or back pain Integumentary Denies abscess Neurologic Neurologic: Denies headache(s) or paresthesias Psychiatric Psychiatric: Denies anxiety or depression EXAM Physical Exam Const Vital Signs: 12/23/22 20:33 12/23/22 22:18 12/23/22 22:18 Temperature 96.9 F L 98.8 F Temperature Source Temporal Temporal Pulse Rate 102 H Respiratory Rate 16 Blood Pressure 124/87 H Blood Pressure Mean 99 Pulse Ox 99 98 Oxygen Delivery Method Room Air Room Air Positive well nourished General Appearance ED: NAD; Negative for pallor Eyes PERRL and EOMs intact bilaterally General Eye ED: Negative for pale conjunctiva or scleral icterus Resp normal respiratory effort Cardio regular rate Rate: tachycardic GI non-tender Neuro oriented x3 and CN's II-XII intact bilaterally Psych mental status grossly normal and thought process normal Skin General Skin Exam: Negative for jaundice or pallor MDM MDM MDM Narrative Medical decision making narrative: Patient presenting for alcohol detox. He is not actively withdrawing. He states his last drink was earlier today and he had a pint of whiskey. EtOH is 25. CBC and CMP are unremarkable. Urine positive for amphetamine and MDMA. Patient was discussed with hospitalist for admission for detox Impression: 1. History of alcohol abuse 2. Presentation for alcohol detox Lab Data Labs: Laboratory Results - last 24 hr 12/23/22 12/23/22 12/23/22 21:20 21:20 21:20 WBC 7.0 RBC 4.09 L Hgb 12.6 L Hct 37.7 L MCV 92.2 MCH 30.8 MCHC 33.4 RDW Std Deviation 42.5 RDW Coeff of Bridger 12.6 Plt Count 285 MPV 9.0 Immature Gran % (Auto) 0.300 Neut % (Auto) 69.3 Lymph % (Auto) 17.4 L [place] % (Auto) 5.3 Eos % (Auto) 7.0 H Baso % (Auto) 0.7 Absolute Neuts (auto) 4.8 Absolute Lymphs (auto) 1.21 Nucleated RBC % 0 Sodium Potassium Chloride Carbon Dioxide Anion Gap BUN Creatinine Estim Creat Clear Calc Est GFR (MDRD) Af Amer Est GFR (MDRD) Non-Af BUN/Creatinine Ratio Glucose Calcium Total Bilirubin AST ALT Alkaline Phosphatase Total Protein Albumin Globulin Albumin/Globulin Ratio Urine Opiates Screen NEGATIVE Urine Methadone Screen NEGATIVE Ur Barbiturates Screen NEGATIVE Ur Phencyclidine Scrn NEGATIVE Ur Amphetamines Screen POSITIVE H MDMA (Ecstasy) Screen POSITIVE H U Benzodiazepines Scrn NEGATIVE Urine Cocaine Screen NEGATIVE U Cannabinoids Screen NEGATIVE Ur Drug Screen Comment Ethyl Alcohol 25.0 12/23/22 21:20 WBC RBC Hgb Hct MCV MCH MCHC RDW Std Deviation RDW Coeff of Bridger Plt Count MPV Immature Gran % (Auto) Neut % (Auto) Lymph % (Auto) [place] % (Auto) Eos % (Auto) Baso % (Auto) Absolute Neuts (auto) Absolute Lymphs (auto) Nucleated RBC % Sodium 139 Potassium 3.5 Chloride 105 Carbon Dioxide 25.0 Anion Gap 9 BUN 29 H Creatinine 0.82 Estim Creat Clear Calc 93.74 Est GFR (MDRD) Af Amer 130 Est GFR (MDRD) Non-Af 107 BUN/Creatinine Ratio 35.4 H Glucose 114 H Calcium 8.8 Total Bilirubin 0.30 AST 49 H ALT 67 H Alkaline Phosphatase 48 Total Protein 7.4 Albumin 3.5 Globulin 3.9 Albumin/Globulin Ratio 0.9 Urine Opiates Screen Urine Methadone Screen Ur Barbiturates Screen Ur Phencyclidine Scrn Ur Amphetamines Screen MDMA (Ecstasy) Screen U Benzodiazepines Scrn Urine Cocaine Screen U Cannabinoids Screen Ur Drug Screen Comment Ethyl Alcohol Discharge Plan Triage Chief Complaint: ETOH Intox ED Provider: Michael De Anda Dx/Rx/DC Orders Prescriptions: No Action albuterol sulfate [Ventolin HFA] 90 mcg/actuation HFA aerosol inhaler 1 - 2 puff inhalation Q4H PRN PRN (Reason: Wheezing) Qty: 1 0RF albuterol sulfate [ProAir HFA] 90 mcg/actuation HFA aerosol inhaler 2 puff inhalation Q6H PRN (Reason: shortness of breath or wheezing) Qty: 8.5 0RF Primary Care Provider: Care Physician,No Primary Referrals: Care Physician,No Primary [Primary Care Provider] -
[2022-12-23 23:01] VITALS: BP 155/77; PULSE 74; RESP 14; TEMP 37.2; O2SAT 98
[2022-12-23 23:12] LABS: Ferritin 27 ng/mL (26-388); Iron 57 ug/dL (65-175); Iron Binding Capacity,Total 335 ug/dL (250-450); Magnesium 2.2 mg/dL (1.6-2.6); Phosphorus 3.5 mg/dL (2.5-4.9)
[2022-12-23 23:29] VITALS: BMI 19.9
[2022-12-23 23:54] VITALS: BP 119/84; PULSE 72; RESP 18; TEMP 36.6; O2SAT 100
[2022-12-24] MEDS: Lactated Ringers 1,000 ML 125 ML IV (00:14)
[2022-12-24] MEDS: Phenobarbital 32.4 MG Tablet 97.2 MG PO ×2 (00:17→04:50)
[2022-12-24] MEDS: Pantoprazole Sodium 20 MG Tablet PO ×2 (00:17→07:57)
[2022-12-24] MEDS: 0.9% Saline Lock 10 ML Syringe IV ×2 (00:18→07:57)
[2022-12-24 04:45] VITALS: BP 109/82; PULSE 84; RESP 18; TEMP 36.5; O2SAT 100
[2022-12-24 07:18] VITALS: O2SAT 98
[2022-12-24 07:51] VITALS: BP 134/77; PULSE 79; RESP 18; TEMP 36.4; O2SAT 98
[2022-12-24] MEDS: Ensure Plus High Protein 120 ML LIQUID PO (07:57)
[2022-12-24] MEDS: Thiamine Hydrochloride 100 MG Tablet PO (07:57)
[2022-12-24] MEDS: Folic Acid 1 MG Tablet PO (07:57)
[2022-12-24] MEDS: Aspirin 81 MG TAB.CHEW PO (07:58)
--- NOTE | 2022-12-24 10:51 | NURSING ---
pt agitated stopped by construction secretary while attempting to get on the elevator. Pt refused to stop for this nurse, refused to sign ama form and refused to allow this nurse to see left arm where IV was located. security notified, description given and informed of IV in arm. Dr. Mckeon on unit notified.
--- NOTE | 2022-12-24 11:16 | PCM.DC.SUM ---
Providers Date of Admission: 12/23/22 Date of Discharge: 12/24/22 Primary Care Physician: No Primary Care Phys Reason For Visit: ETOH WITHDRAWL Diagnosis Discharge Diagnosis (1) Alcohol withdrawal: Status: Acute Code(s): F10.939 - Alcohol use, unspecified with withdrawal, unspecified Plan #1 Acute alcohol withdrawal #2 chronic alcoholism #3 noncompliant with medical regimen #4 polysubstance abuse Medications at Discharge Home Medications albuterol sulfate 90 mcg/actuation aerosol inhaler (Ventolin HFA) 1 - 2 puff inhalation Q4H PRN PRN Wheezing #1 device 09/09/22 albuterol sulfate 90 mcg/actuation aerosol inhaler (ProAir HFA) 2 puff inhalation Q6H PRN shortness of breath or wheezing #8.5 grams 12/02/22 Hospital Course Operations None Procedures None Summary of Care Provided Minutes Spent on Discharge: 30 Hospital Course: This 47-year-old white male was seen in the emergency room at [facility] requesting services for alcohol detox, patient's talk screen was positive for MDMA, amphetamines, and azithromycin alcohol level was 25. Patient was admitted to [facility], according to nursing, patient refused his medications for alcohol detox on the morning of 12/24/2022, patient pulled his IV out and broke into his locker to obtain his personal effects and walked out of the hospital. Was not seen and examined on 12/24/2022 by myself. Weight / BMI Weight Weight: 56 kg Body Mass Index (BMI) 19.9 ABG / Lab / Microbiology Data Result Diagrams: 12/23/22 21:20 12/23/22 21:20 Laboratory: Laboratory Results - last 24 hr 12/23/22 21:20: WBC 7.0, RBC 4.09 L, Hgb 12.6 L, Hct 37.7 L, MCV 92.2, MCH 30.8, MCHC 33.4, RDW Std Deviation 42.5, RDW Coeff of Bridger 12.6, Plt Count 285, MPV 9.0, Immature Gran % (Auto) 0.300, Neut % (Auto) 69.3, Lymph % (Auto) 17.4 L, [place] % (Auto) 5.3, Eos % (Auto) 7.0 H, Baso % (Auto) 0.7, Absolute Neuts (auto) 4.8, Absolute Lymphs (auto) 1.21, Nucleated RBC % 0 12/23/22 21:20: Ethyl Alcohol 25.0 12/23/22 21:20: Urine Opiates Screen NEGATIVE, Urine Methadone Screen NEGATIVE, Ur Barbiturates Screen NEGATIVE, Ur Phencyclidine Scrn NEGATIVE, Ur Amphetamines Screen POSITIVE H, MDMA (Ecstasy) Screen POSITIVE H, U Benzodiazepines Scrn NEGATIVE, Urine Cocaine Screen NEGATIVE, U Cannabinoids Screen NEGATIVE, Ur Drug Screen Comment 12/23/22 21:20: Sodium 139, Potassium 3.5, Chloride 105, Carbon Dioxide 25.0, Anion Gap 9, BUN 29 H, Creatinine 0.82, Estim Creat Clear Calc 93.74, Est GFR (MDRD) Af Amer 130, Est GFR (MDRD) Non-Af 107, BUN/Creatinine Ratio 35.4 H, Glucose 114 H, Calcium 8.8, Total Bilirubin 0.30, AST 49 H, ALT 67 H, Alkaline Phosphatase 48, Total Protein 7.4, Albumin 3.5, Globulin 3.9, Albumin/Globulin Ratio 0.9 12/23/22 21:20: Phosphorus 3.5, Magnesium 2.2, Iron 57 L, TIBC 335, Iron Saturation 17.0, Ferritin 27, Folate 16.10 Meaningful Use Info Meaningful Use Diagnoses (Choose all that apply): None applicable Discharge Plan Admission Admit Date/Time: 12/23/22 22:27 Primary Reason for Your Visit: alcohol detox Attending Provider: Nelson Mckeon Primary Care Provider: Care Physician,No Primary Consulting Providers: Alisha Mcintyre Discharge Orders/Prescriptions Prescriptions: No Action albuterol sulfate [Ventolin HFA] 90 mcg/actuation HFA aerosol inhaler 1 - 2 puff inhalation Q4H PRN PRN (Reason: Wheezing) Qty: 1 0RF albuterol sulfate [ProAir HFA] 90 mcg/actuation HFA aerosol inhaler 2 puff inhalation Q6H PRN (Reason: shortness of breath or wheezing) Qty: 8.5 0RF Referrals / Follow Up: Care Physician,No Primary [Primary Care Provider] - Disposition Disposition (needs filled in before D/C Order can be placed): Against Medical Advice
[2022-12-26 09:29] LABS: Vitamin B12 589 pg/mL (211-911)
== END 2022-12-24 10:51 | disposition left against medical advice (07) | DRG 770 ==
LOC: ED 21:36 → MS3 23:25
PROVIDERS: Admitting Provider Family Medicine; Emergency Provider Student in an Organized Health Care Education/Training Program; Visit Provider Internal Medicine
DX: F10.239 Alcohol dependence with withdrawal, unspecified (principal); J43.9 Emphysema, unspecified; F11.10 Opioid abuse, uncomplicated; F15.10 Other stimulant abuse, uncomplicated; F41.9 Anxiety disorder, unspecified; J45.909 Unspecified asthma, uncomplicated; I10 Essential (primary) hypertension; I69.320 Aphasia following cerebral infarction; F12.10 Cannabis abuse, uncomplicated; Z53.29 Procedure and treatment not carried out because of patient's decision for other reasons; Y90.1 Blood alcohol level of 20-39 mg/100 ml; F32.A Depression, unspecified; Z87.891 Personal history of nicotine dependence; Z59.00 Homelessness unspecified; F17.220 Nicotine dependence, chewing tobacco, uncomplicated
CPT/HCPCS: 80053; 80307; 82077; 82607; 82728; 82746; 83540; 83550; 83735; 84100; 85025; 96360; 96361; 99221; 99283; J7120; A4216; G0378

== ENCOUNTER 2023-01-22 14:03 | Emergency (ER) | payer MEDICAID, SELFPAY ==
[2023-01-22 14:04] VITALS: BP 120/82; PULSE 78; RESP 18; TEMP 36.1; O2SAT 100; BMI 21.6
[2023-01-22 14:07] VITALS: BP 120/82; PULSE 78; RESP 18; TEMP 36.1; O2SAT 100; BMI 21.3
--- NOTE | 2023-01-22 14:24 | EX.ED.DYSGE1 ---
HPI <MALIA Moctezuma - Last Filed: 01/22/23 15:13> History of Present Illness Chief Complaint: Meds Only Narrative Narrative: Patient presenting today requesting to have his albuterol inhaler refilled. He states that he has been out of it for the past 2 weeks and does not have a primary care provider to refill this for him. He states that he uses this for asthma and his primary form of transportation is walking and with the cold air his asthma symptoms worsen. He denies any current wheezing, shortness of breath, chest pain. PFSH <MALIA Moctezuma - Last Filed: 01/22/23 15:13> [facility] Medical History Active substance abuse Alcohol abuse Alcohol withdrawal Anxiety and depression Asthma with COPD Bulla of lung GERD (gastroesophageal reflux disease) Hypertension Inguinal hernia bilateral, non-recurrent Methamphetamine abuse Past history of chewing tobacco use Stroke/cerebrovascular accident Home Medications albuterol sulfate 90 mcg/actuation aerosol inhaler (Ventolin HFA) 1 - 2 puff inhalation Q4H PRN PRN Wheezing #1 device 09/09/22 [Rx Last Taken Unknown] albuterol sulfate 90 mcg/actuation aerosol inhaler (ProAir HFA) 2 puff inhalation Q6H PRN shortness of breath or wheezing #8.5 grams 12/02/22 [Rx Last Taken 12/23/22] albuterol sulfate 90 mcg/actuation aerosol inhaler (Ventolin HFA) 1 - 2 puff inhalation Q4H PRN PRN Wheezing #1 inh 01/22/23 [Rx Last Taken Unknown] prednisone 20 mg tablet 40 mg PO DAILY 5 days #10 tabs 01/22/23 [Rx Last Taken Unknown] Allergy/AdvReac Type Severity Reaction Status Date / Time No Known Allergies Allergy Verified 01/22/23 14:05 Family History Father Alcoholism CAD (coronary artery disease) Heart disease Hypertension Mother Alcoholism Seizures Surgical History History of ankle surgery Social History housing: homeless Smoking Status: Never smoker Smokeless tobacco user: chewing tobacco how long ago did patient quit smoking: Notes no cig tob use, prior chew only, ongoing cannabis use. alcohol intake: current details: 5-6 beers daily, whiskey. substance use type: marijuana, opiates and methamphetamine ROS <MALIA Moctezuma - Last Filed: 01/22/23 15:13> ROS ED Constitutional Constitutional ED: Denies chills or fever(s) ENT ENT ED: Denies rhinorrhea or sore throat Cardiovascular Cardiovascular: Denies chest pain Respiratory/Chest Respiratory/Chest: Denies cough, dyspnea, dyspnea on exertion, tachypnea or wheezing Gastrointestinal Gastrointestinal: Denies abdominal pain, nausea or vomiting Genitourinary Genitourinary ED: Denies dysuria, hematuria or urinary urgency Musculoskeletal Musculoskeletal: Denies arthralgias or back pain Integumentary Denies abscess, Abrasions or rash Neurologic Neurologic: Denies weakness Psychiatric Psychiatric: Denies anxiety, depression, suicidal ideation or suicidal thoughts EXAM <MALIA Moctezuma - Last Filed: 01/22/23 15:13> Physical Exam Const Vital Signs: 01/22/23 14:04 01/22/23 14:07 01/22/23 15:12 Temperature 97 F L 97 F L Temperature Source Temporal Temporal Pulse Rate 78 78 Respiratory Rate 18 18 14 Blood Pressure 120/82 H 120/82 H Blood Pressure Mean 94 94 Pulse Ox 100 100 Oxygen Delivery Method Room Air Room Air Positive well nourished, well developed and no apparent distress General Appearance ED: well developed HEENT Reports normocephalic and head/scalp atraumatic Mouth ED: Yes moist mucous membranes normal Eyes PERRL and EOMs intact bilaterally Neck full ROM and supple Chest Wall inspection of chest normal Resp normal respiratory effort Auscultation: wheezes inspiratory wheezes Cardio regular rate and regular rhythm GI soft to palpation, non-tender, non-distended and no masses Back/Spine normal ROM and normal to inspection Extremity normal to inspection and full ROM Neuro oriented x3, CN's II-XII intact bilaterally, moves all extremities, no focal motor deficits and no sensory deficits noted Sensorium / Orientation: awake and alert Psych mental status grossly normal and thought process normal Skin no rashes or lesions noted and no wounds <Dr. Twan Garcia MD - Last Filed: 01/22/23 15:12> Physical Exam Const Vital Signs: 01/22/23 14:04 01/22/23 14:07 01/22/23 15:12 Temperature 97 F L 97 F L Temperature Source Temporal Temporal Pulse Rate 78 78 Respiratory Rate 18 18 14 Blood Pressure 120/82 H 120/82 H Blood Pressure Mean 94 94 Pulse Ox 100 100 Oxygen Delivery Method Room Air Room Air [facility] <MALIA Moctezuma - Last Filed: 01/22/23 15:13> [facility] Narrative Medical decision making narrative: Patient requesting refill of his albuterol inhaler for his asthma. Patient does a lot of walking and with the cold weather his asthma symptoms have worsened. He is in no acute distress, he is 100% on room air, He does sound wheezy on auscultation, he will be given prednisone. He has no other complaints. His albuterol inhaler will be refilled. he will be discharged home in stable condition. He has been given a PCP to follow-up with. Patient is comfortable with plan. <Dr. Twan Garcia MD - Last Filed: 01/22/23 15:12> [facility] Narrative Medical decision making narrative: Patient requesting refill of his albuterol inhaler for his asthma. Patient does a lot of walking and with the cold weather his asthma symptoms have worsened. He is in no acute distress, he is 100% on room air, he is not actively having an asthma exacerbation. He has no other complaints. His albuterol inhaler will be refilled. he will be discharged home in stable condition. He has been given a PCP to follow-up with. Patient is comfortable with plan. I have personally performed a face to face assessment of the patient and have reviewed the CURLY Note. I performed a substantive portion of the visit including all aspects of the following. My barrett findings include: History is 47-year-old male history of asthma out of his inhaler. Is been wheezing last several days. Denies any fever chest pain or any significant cough. Just wants his inhaler refilled. Exam is [well-appearing middle-aged male. No acute distress. Vital signs stable afebrile. Pulse ox 100%. HEENT exam unremarkable. Neck nontender. Lungs scattered expiratory wheezes. No rales or rhonchi. Equal symmetrical. No distress. Heart regular rhythm rate about 80 no murmur. Abdomen soft. Otherwise exam unremarkable.] Medical Decision Making [patient written for refill for his inhaler. Prednisone 40 mg a day for 5 days. Outpatient follow-up.] Other additions or changes: [None] Discharge Plan Triage Chief Complaint: Meds Only ED Midlevel Provider: Yee Jaffe ED Provider: Twan Garcia Dx/Rx/DC Orders Clinical Impression: Asthma, Encounter for medication refill Instructions: Asthma Prescriptions: New albuterol sulfate [Ventolin HFA] 90 mcg/actuation HFA aerosol inhaler 1 - 2 puff inhalation Q4H PRN PRN (Reason: Wheezing) Qty: 1 0RF prednisone 20 mg tablet 40 mg PO DAILY 5 Days Qty: 10 0RF No Action albuterol sulfate [Ventolin HFA] 90 mcg/actuation HFA aerosol inhaler 1 - 2 puff inhalation Q4H PRN PRN (Reason: Wheezing) Qty: 1 0RF albuterol sulfate [ProAir HFA] 90 mcg/actuation HFA aerosol inhaler 2 puff inhalation Q6H PRN (Reason: shortness of breath or wheezing) Qty: 8.5 0RF Primary Care Provider: Care Physician,No Primary Referrals: Safia Dimas MD [Med Staff - Promotion Writer] - 5-7 Days Care Physician,No Primary [Primary Care Provider] - Activity Restrictions/Additional Instructions: Please follow-up with the PCP I referred you to. Disposition Disposition: Home, Self Care Discharge Date/Time: 01/22/23 15:12
[2023-01-22 15:12] VITALS: RESP 14
== END 2023-01-22 15:12 | disposition home or self-care (01) ==
PROVIDERS: Emergency Provider Emergency Medicine; Visit Provider Emergency Medicine
DX: Z76.0 Encounter for issue of repeat prescription (principal); J43.9 Emphysema, unspecified; Z87.891 Personal history of nicotine dependence; I10 Essential (primary) hypertension
CPT/HCPCS: 99281

== ENCOUNTER 2023-02-23 23:29 | Emergency (ER) | payer MEDICAID, SELFPAY ==
[2023-02-23 23:30] VITALS: BP 130/91; PULSE 85; RESP 18; TEMP 37.1; O2SAT 95; BMI 24.3
--- NOTE | 2023-02-23 23:43 | EDS_ITS ---
HPI History of Present Illness Chief Complaint: Med Refill Informant: patient Narrative Narrative: Patient presents stating that he needs a refill on his inhaler. He has a history of asthma and last got his inhaler filled about a month ago. It is completely empty. He reports some mild wheezing but he is in no distress. He is also asking for a referral to a surgeon for a hernia that he has had for quite some time. [facility] Medical History Active substance abuse Alcohol abuse Alcohol withdrawal Anxiety and depression Asthma with COPD [place] of lung GERD (gastroesophageal reflux disease) Hypertension Inguinal hernia bilateral, non-recurrent Methamphetamine abuse Past history of chewing tobacco use Stroke/cerebrovascular accident Home Medications albuterol sulfate 90 mcg/actuation aerosol inhaler (Ventolin HFA) 1 - 2 puff inhalation Q4H PRN PRN Wheezing #1 device 09/09/22 [Rx Last Taken Unknown] albuterol sulfate 90 mcg/actuation aerosol inhaler (ProAir HFA) 2 puff inhalation Q6H PRN shortness of breath or wheezing #8.5 grams 12/02/22 [Rx Last Taken 12/23/22] albuterol sulfate 90 mcg/actuation aerosol inhaler (Ventolin HFA) 1 - 2 puff inhalation Q4H PRN PRN Wheezing #1 inh 01/22/23 [Rx Last Taken Unknown] prednisone 20 mg tablet 40 mg PO DAILY 5 days #10 tabs 01/22/23 [Rx Last Taken Unknown] Allergy/AdvReac Type Severity Reaction Status Date / Time No Known Allergies Allergy Verified 02/23/23 23:32 Family History Father Alcoholism CAD (coronary artery disease) Heart disease Hypertension Mother Alcoholism Seizures Surgical History History of ankle surgery Social History housing: homeless Smoking Status: Never smoker Smokeless tobacco user: chewing tobacco how long ago did patient quit smoking: Notes no cig tob use, prior chew only, ongoing cannabis use. alcohol intake: current details: 5-6 beers daily, whiskey. substance use type: marijuana, opiates and methamphetamine ROS ROS ED Constitutional Constitutional ED: Denies chills or fever(s) Eyes Eyes: Denies change in vision or discharge from eye(s) ENT ENT ED: Denies discharge from eye(s), rhinorrhea or sore throat Cardiovascular Cardiovascular: Denies chest pain or palpitations Respiratory/Chest Respiratory/Chest: Reports dyspnea; Denies cough Gastrointestinal Gastrointestinal: Denies abdominal pain, nausea or vomiting Musculoskeletal Musculoskeletal: Denies back pain or extremity pain Integumentary Denies Abrasions or rash Neurologic Neurologic: Denies headache(s) or weakness Psychiatric Psychiatric: Denies anxiety or depression Allergic/Immunologic Allergic/Immunologic ED: Denies lip swelling or urticaria EXAM Physical Exam Const Vital Signs: 02/23/23 23:30 Temperature 98.7 F Temperature Source Temporal Pulse Rate 85 Respiratory Rate 18 Blood Pressure 130/91 H Blood Pressure Mean 104 Pulse Ox 95 Oxygen Delivery Method Room Air Positive well nourished and well developed General Appearance ED: well developed HEENT Reports normocephalic and head/scalp atraumatic Eyes PERRL and EOMs intact bilaterally Neck supple Chest Wall inspection of chest normal and palpation of chest normal Resp normal respiratory effort Resp Narrative: Mild expiratory wheezes bilaterally. Cardio regular rate and regular rhythm GI normal to inspection, nondistended, normoactive bowel sounds Palpation: soft Extremity normal to inspection Neuro oriented x3 and no sensory deficits noted Sensorium / Orientation: alert Motor Exam: strength 5/5 throughout Psych mental status grossly normal Skin no rashes or lesions noted MDM MDM MDM Narrative Medical decision making narrative: Patient be given albuterol MDI here that he can take with him. He is requesting a referral to a surgeon for a hernia that he has had for several years but is not currently causing him any problems. He will be given Dr. Dorantes's informatio n as he is on-call tonight. He will also be referred to Dr. Manriquez, next on the no doc list to establish a primary care physician. Discharge Plan Triage Chief Complaint: Med Refill ED Provider: Xenia Hall Dx/Rx/DC Orders Clinical Impression: Asthma, Abdominal hernia Instructions: ED Hernia (Adult), ED Inhaler Use Prescriptions: No Action albuterol sulfate [Ventolin HFA] 90 mcg/actuation HFA aerosol inhaler 1 - 2 puff inhalation Q4H PRN PRN (Reason: Wheezing) Qty: 1 0RF albuterol sulfate [ProAir HFA] 90 mcg/actuation HFA aerosol inhaler 2 puff inhalation Q6H PRN (Reason: shortness of breath or wheezing) Qty: 8.5 0RF albuterol sulfate [Ventolin HFA] 90 mcg/actuation HFA aerosol inhaler 1 - 2 puff inhalation Q4H PRN PRN (Reason: Wheezing) Qty: 1 0RF prednisone 20 mg tablet 40 mg PO DAILY 5 Days Qty: 10 0RF Primary Care Provider: Care Physician,No Primary Referrals: Mabel Manriquez MD [Med Staff - Wash Plant Operator] - As Needed Salvador Dorantes MD [Med Staff - Active Staff] - As Needed Care Physician,No Primary [Primary Care Provider] - Disposition Disposition: Home, Self Care
--- NOTE | 2023-02-23 23:48 | ED.RN ---
PT REQUESTS PAIN MEDICATION FOR RLE AND REFILL ON ALBUTEROL MDI.
[2023-02-24] MEDS: Albuterol Sulfate 8 gm Inhaler (60 puffs) 2 PUFF INHALATION (00:06)
== END 2023-02-24 00:07 | disposition home or self-care (01) ==
PROVIDERS: Emergency Provider Emergency Medicine; Visit Provider Emergency Medicine
DX: Z76.0 Encounter for issue of repeat prescription (principal); J43.9 Emphysema, unspecified; J45.909 Unspecified asthma, uncomplicated; K46.9 Unspecified abdominal hernia without obstruction or gangrene; I10 Essential (primary) hypertension; Z59.00 Homelessness unspecified; Z87.891 Personal history of nicotine dependence
CPT/HCPCS: 99281; 99282

== ENCOUNTER 2023-03-26 00:09 | Emergency (ER) | payer MEDICAID, SELFPAY ==
[2023-03-26 00:10] VITALS: BP 106/78; PULSE 79; RESP 16; TEMP 36.4; O2SAT 98; BMI 19.5
[2023-03-26 00:12] VITALS: BP 106/78; PULSE 79; RESP 16; TEMP 36.4; O2SAT 97
--- NOTE | 2023-03-26 00:29 | ED.VIS.DENTA ---
HPI History of Present Illness Chief Complaint: Dental Informant: patient Narrative Narrative: Patient states that he has had some pain waxing and waning the left side of his jaw. It is getting worse tonight. He thinks he may have broken part of the tooth off but he is not sure. He has had dental pain before. He also states that he is out of his inhaler but he is not having any breathing problems. He states the tooth has been hurting for at least 2 3 days but is heard before. He denies actual headache. He denies any neurologic symptoms. He denies any trauma or injury recently. He denies trouble swallowing or breathing. No fevers or chills. [facility] Medical History Active substance abuse Alcohol abuse Alcohol withdrawal Anxiety and depression Asthma with COPD Bull[place] of lung GERD (gastroesophageal reflux disease) Hypertension Inguinal hernia bilateral, non-recurrent Methamphetamine abuse Past history of chewing tobacco use Stroke/cerebrovascular accident Home Medications albuterol sulfate 90 mcg/actuation aerosol inhaler (Ventolin HFA) 1 - 2 puff inhalation Q4H PRN PRN Wheezing #1 device 09/09/22 [Rx Last Taken Unknown] albuterol sulfate 90 mcg/actuation aerosol inhaler (ProAir HFA) 2 puff inhalation Q6H PRN shortness of breath or wheezing #8.5 grams 12/02/22 [Rx Last Taken 12/23/22] albuterol sulfate 90 mcg/actuation aerosol inhaler (Ventolin HFA) 1 - 2 puff inhalation Q4H PRN PRN Wheezing #1 inh 01/22/23 [Rx Last Taken Unknown] prednisone 20 mg tablet 40 mg PO DAILY 5 days #10 tabs 01/22/23 [Rx Last Taken Unknown] albuterol sulfate 90 mcg/actuation aerosol inhaler (Ventolin HFA) 2 puff inhalation Q4H PRN PRN Wheezing ##1 03/26/23 [Rx Last Taken Unknown] naproxen 500 mg tablet 500 mg PO BID #14 tabs 03/26/23 [Rx Last Taken Unknown] penicillin V potassium 500 mg tablet 500 mg PO 4X/DAY #40 tabs 03/26/23 [Rx Last Taken Unknown] Allergy/AdvReac Type Severity Reaction Status Date / Time No Known Allergies Allergy Verified 03/26/23 00:10 Family History Father Alcoholism CAD (coronary artery disease) Heart disease Hypertension Mother Alcoholism Seizures Surgical History History of ankle surgery Social History housing: homeless Smoking Status: Never smoker Smokeless tobacco user: chewing tobacco how long ago did patient quit smoking: Notes no cig tob use, prior chew only, ongoing cannabis use. alcohol intake: current details: 5-6 beers daily, whiskey. substance use type: marijuana, opiates and methamphetamine ROS ROS ED Constitutional Constitutional ED: Denies chills or fever(s) Eyes Eyes: Denies blurry vision or change in vision ENT ENT ED: Reports other Details: See history of present illness. ; Denies ear pain, rhinorrhea or sore throat Cardiovascular Cardiovascular: Denies chest pain Respiratory/Chest Respiratory/Chest: Denies cough, dyspnea or sputum Gastrointestinal Gastrointestinal: Denies nausea or vomiting Musculoskeletal Musculoskeletal: Denies back pain or neck pain Integumentary Denies rash Neurologic Neurologic: Denies headache(s), paresthesias or weakness Hematologic/Lymphatic Hematologic/Lymphatic: Denies easy bleeding, easy bruising or lymphadenopathy Allergic/Immunologic Allergic/Immunologic ED: Reports other Details: Patient has pain but denies actual swelling in his mouth. No trouble swallowing or speaking. ; Denies mouth swelling, tongue swelling or urticaria EXAM Physical Exam Narrative Exam Narrative: Patient is awake alert sitting in bed. He is holding his left jaw with his left hand. HEENT: No sign of external swelling or erythema. He can open and close his jaw well. He does have some poor dentition but a molar on the upper left is eroded all the way down to the gums. It is little red. That is the only area that is very tender when I touch with a tongue blade. He seems to think that is the source and area of his pain. There is no drainable abscess. No sign of Elizabeth's. Tympanic membranes are clear. He has no sinus tenderness. He has no pain or tenderness in the temporal area. Eyes show normal range of motion. No proptosis or limited range. Neck supple with no JVD. No lymph nodes noted. Lungs are clear bilaterally. I hear no wheezing at all at this time. Heart is regular without murmur gallop or rub. Peripheral pulses are equal. Abdomen soft and nontender. Extremities show no edema or tenderness. Normal range of motion of all extremities. Skin shows no rashes or pallor. No diaphoresis. Const Vital Signs: 03/26/23 00:10 03/26/23 00:12 Temperature 97.6 F L 97.6 F L Temperature Source Oral Temporal Pulse Rate 79 79 Respiratory Rate 16 16 Blood Pressure 106/78 106/78 Blood Pressure Mean 87 87 Pulse Ox 98 97 MDM MDM MDM Narrative Medical decision making narrative: At first I was not sure if this was headache or dental pain. But he states it is all in the jaw. Its not in the head. Its not in the tenriism area. He has no temporal artery tenderness. His symptoms are reproduced with palpation of that 1 tooth and the tooth is eroded to the gumline with some mild erythema. I will treat for this. Patient also states that he is out of his inhaler. He is not having problems now but does use his inhaler regularly so I will refill this. We discussed reasons to return that would be worsening or changing pain or change in location. Trouble swallowing or breathing. Fevers. Significant swelling. Or if he develops any breathing issues. I will try to fill his prescriptions here so he gets them and I will initiate therapy here. He states he already has an appointment with his doctor to refill meds in April but he is not sure of the doctor's name but does not know how to get there. I have encouraged he keep that appointment. Discharge Plan Triage Chief Complaint: Dental ED Provider: Ender Garcia Dx/Rx/DC Orders Clinical Impression: Pain, dental, Encounter for medication refill Instructions: ED Dental Pain Prescriptions: New penicillin V potassium 500 mg tablet 500 mg PO 4X/DAY Qty: 40 0RF albuterol sulfate [Ventolin HFA] 90 mcg/actuation HFA aerosol inhaler 2 puff inhalation Q4H PRN PRN (Reason: Wheezing) Qty: 1 0RF naproxen 500 mg tablet 500 mg PO BID Qty: 14 0RF No Action albuterol sulfate [Ventolin HFA] 90 mcg/actuation HFA aerosol inhaler 1 - 2 puff inhalation Q4H PRN PRN (Reason: Wheezing) Qty: 1 0RF albuterol sulfate [ProAir HFA] 90 mcg/actuation HFA aerosol inhaler 2 puff inhalation Q6H PRN (Reason: shortness of breath or wheezing) Qty: 8.5 0RF albuterol sulfate [Ventolin HFA] 90 mcg/actuation HFA aerosol inhaler 1 - 2 puff inhalation Q4H PRN PRN (Reason: Wheezing) Qty: 1 0RF prednisone 20 mg tablet 40 mg PO DAILY 5 Days Qty: 10 0RF Primary Care Provider: Care Physician,No Primary Referrals: Care Physician,No Primary [Primary Care Provider] - Activity Restrictions/Additional Instructions: See your physician as scheduled in April. Disposition Disposition: Home, Self Care
[2023-03-26] MEDS: Penicillin Vk 250 MG Tablet 500 MG PO (00:38)
[2023-03-26] MEDS: Ketorolac 30 MG/ML Syringe IM (00:38)
== END 2023-03-26 00:43 | disposition home or self-care (01) ==
PROVIDERS: Emergency Provider Emergency Medicine; Visit Provider Emergency Medicine
DX: K08.89 Other specified disorders of teeth and supporting structures (principal); J43.9 Emphysema, unspecified; R68.84 Jaw pain; I10 Essential (primary) hypertension; Z76.0 Encounter for issue of repeat prescription; Z59.00 Homelessness unspecified; Z87.891 Personal history of nicotine dependence
CPT/HCPCS: 96372; 99283

== ENCOUNTER 2023-04-26 16:52 | Inpatient (IN) | payer MEDICAID, SELFPAY ==
[2023-04-26 16:53] VITALS: BP 104/81; PULSE 83; RESP 18; TEMP 36.2; O2SAT 95; BMI 20.4
[2023-04-26 18:19] LABS: Absolute Lymphocyte Count 1.11 X10^3/uL (0.83-4.51); Absolute Neutrophil Count 2.8 X10^3/uL (2.0-7.7); Basophil# 0.04 X10^3/uL; Basophil% 0.8 % (0-1); Eosinophil# 0.74 X10^3/uL; Eosinophils% 14.7 % (0-5); Hematocrit 38.9 % (40-54); Hemoglobin 12.8 g/dL (13.0-16.5); Lymphocyte # 1.11 X10^3/ul (0.83-4.51); Mean Corp Hgb Conc 32.9 g/dL (32-36); Mean Corpuscular Hgb 31.1 pg (27.0-32.0); Mean Corpuscular Volume 94.4 fL (80-94); Mean Platelet Vol. 8.7 fl (6.2-12.0); NRBC Flagged by Analyzer 0 % (0-5); Neutrophil # 2.84 X10^3/uL (2.7-7.7); Neutrophil % 56.3 % (47-70); Platelet Count 273 K/mm3 (150-450); RBC Distribution Width CV 12.5 % (11.6-14.6); RBC Distribution Width SD 43.1 fl (35.1-43.9); Red Blood Count 4.12 M/mm3 (4.6-6.2)
[2023-04-26 18:35] LABS: ALB/GLOB Ratio 0.9 RATIO (0.9-2.4); AST(SGOT) 26 U/L (15-37); Alanine Aminotransfer ALT/SGPT 43 U/L (16-61); Albumin, Serum 3.5 g/dL (3.2-5.0); Alkaline Phosphatase 51 U/L (45-117); Anion Gap 3 (5-15); BUN 21 mg/dL (7-18); BUN/Creat Ratio 23.9 RATIO (10-20); Calcium,Total 8.9 mg/dL (8.5-10.1); Chloride 107 mmol/L (98-107); Creatinine, Serum 0.88 mg/dL (0.70-1.30); EST Glomerular Filtration Rate 99 mL/min (>60); Est Glom Filt Rate - Afr Amer 119 mL/min (>60); Estimated Creatinine Clearance 84.16 ml/min; Globulin 3.9 g/dL (2.2-4.2); Glucose 98 mg/dL (74-106); Protein, Total 7.4 g/dL (6.4-8.2); Sodium Level 139 mmol/L (136-145)
[2023-04-26 18:37] LABS: Alcohol, Blood (Medical)-Serum < 3.0 mg/dL
--- NOTE | 2023-04-26 18:57 | EDS_ITS ---
HPI History of Present Illness Chief Complaint: ETOH Intox Informant: patient Onset/Context/Timing Onset: Yesterday Context: Gradual Onset Timing: Continuous Quality: Shaky Location: Generalized Associated Symptoms Associated Symptoms: Positive for tremor; Negative for vomiting*, diarrhea*, fever*, rash*, seizure, palpatations, change in mental status, trauma, suicidal ideation or homicidal ideation Narrative Narrative: Patient presents requesting detox from alcohol. Patient states he drinks 6 beers per day. Patient states he has gone through detox here in the past. Patient is not sure when his last detox was. Patient states his last drink was last night. Patient states he feels shaky. Patient denies any nausea or vomiting. Patient admits to some subjective chills. Patient states his anxiety has gotten worse. Patient denies any suicidal or homicidal ideations. [facility] Medical History Active substance abuse Alcohol abuse Alcohol withdrawal Anxiety and depression Asthma with COPD Bulla of lung GERD (gastroesophageal reflux disease) Hypertension Inguinal hernia bilateral, non-recurrent Methamphetamine abuse Past history of chewing tobacco use Stroke/cerebrovascular accident Home Medications albuterol sulfate 90 mcg/actuation aerosol inhaler (Ventolin HFA) 1 - 2 puff inhalation Q4H PRN PRN Wheezing #1 device 09/09/22 [Rx Last Taken Unknown] albuterol sulfate 90 mcg/actuation aerosol inhaler (ProAir HFA) 2 puff inhalation Q6H PRN shortness of breath or wheezing #8.5 grams 12/02/22 [Rx Last Taken 12/23/22] albuterol sulfate 90 mcg/actuation aerosol inhaler (Ventolin HFA) 1 - 2 puff inhalation Q4H PRN PRN Wheezing #1 inh 01/22/23 [Rx Last Taken Unknown] prednisone 20 mg tablet 40 mg (2 x 20 mg) PO DAILY 5 days #10 tabs 01/22/23 [Rx Last Taken Unknown] albuterol sulfate 90 mcg/actuation aerosol inhaler (Ventolin HFA) 2 puff inhalation Q4H PRN PRN Wheezing ##1 03/26/23 [Rx Last Taken Unknown] naproxen 500 mg tablet 500 mg PO BID #14 tabs 03/26/23 [Rx Last Taken Unknown] penicillin V potassium 500 mg tablet 500 mg PO 4X/DAY #40 tabs 03/26/23 [Rx Last Taken Unknown] Allergy/AdvReac Type Severity Reaction Status Date / Time No Known Allergies Allergy Verified 04/26/23 16:53 Family History Father Alcoholism CAD (coronary artery disease) Heart disease Hypertension Mother Alcoholism Seizures Surgical History History of ankle surgery Social History housing: homeless Smoking Status: Never smoker Smokeless tobacco user: chewing tobacco how long ago did patient quit smoking: Notes no cig tob use, prior chew only, ongoing cannabis use. alcohol intake: current details: 5-6 beers daily, whiskey. substance use type: marijuana, opiates and methamphetamine ROS ROS ED Constitutional Constitutional ED: Reports chills and subjective; Denies fever(s) Eyes Eyes: Denies blurry vision or change in vision ENT ENT ED: Denies rhinorrhea or sore throat Cardiovascular Cardiovascular: Denies chest pain or palpitations Respiratory/Chest Respiratory/Chest: Denies cough or dyspnea Gastrointestinal Gastrointestinal: Denies nausea or vomiting Genitourinary Genitourinary ED: Denies dysuria or hematuria Musculoskeletal Musculoskeletal: Denies back pain or neck pain Integumentary Denies abscess or rash Neurologic Neurologic: Denies headache(s) or weakness Psychiatric Psychiatric: Reports anxiety; Denies suicidal ideation or suicidal thoughts Allergic/Immunologic Allergic/Immunologic ED: Denies mouth swelling or urticaria EXAM Physical Exam Const Vital Signs: 04/26/23 16:53 Temperature 97.2 F L Temperature Source Temporal Pulse Rate 83 Respiratory Rate 18 Blood Pressure 104/81 H Blood Pressure Mean 88 Pulse Ox 95 Oxygen Delivery Method Room Air Positive well nourished and well developed General Appearance ED: well developed HEENT Reports moist mucous membranes Neck supple and no JVD Resp normal respiratory effort and clear to auscultation bilaterally Cardio regular rate and regular rhythm GI normal to inspection, nondistended, normoactive bowel sounds and non-tender Palpation: soft Extremity normal to inspection General Extremety ED: Negative for edema or tenderness General Extremity: Negative for edema Neuro oriented x3, CN's II-XII intact bilaterally and no sensory deficits noted Sensorium / Orientation: alert Motor Exam: strength 5/5 throughout Psych mental status grossly normal Skin no rashes or lesions noted MDM MDM MDM Narrative Medical decision making narrative: Differential diagnosis includes alcohol withdrawal, alcohol dependence, and substance abuse. Basic labs will be obtained for medical screening. CBC will be obtained to assess for leukocytosis and anemia. Comprehensive metabolic profile will be obtained to assess for hepatic function, renal function, and electrolyte abnormality. Urine tox screen will be obtained to assess for substa nce abuse. Serum alcohol level will be obtained to assess for alcohol intoxication. Lab Data Attestation: I reviewed the patient's lab results. Lab results narrative: CBC was reviewed. There is a slight anemia with a hemoglobin of 12.8 and hematocrit of 38.9. Platelets were normal. Comprehensive metabolic profile was reviewed and was essentially within normal limits. Serum alcohol level was reviewed and was less than 3. Labs: Laboratory Results - last 24 hr 04/26/23 18:10 WBC 5.0 RBC 4.12 L Hgb 12.8 L Hct 38.9 L MCV 94.4 H MCH 31.1 MCHC 32.9 RDW Std Deviation 43.1 RDW Coeff of Bridger 12.5 Plt Count 273 MPV 8.7 Immature Gran % (Auto) 0.200 Neut % (Auto) 56.3 Lymph % (Auto) 22.0 [place] % (Auto) 6.0 Eos % (Auto) 14.7 H Baso % (Auto) 0.8 Absolute Neuts (auto) 2.8 Absolute Lymphs (auto) 1.11 Nucleated RBC % 0 Sodium 139 Potassium 4.0 Chloride 107 Carbon Dioxide 29.0 Anion Gap 3 L BUN 21 H Creatinine 0.88 Estim Creat Clear Calc 84.16 Est GFR (MDRD) Af Amer 119 Est GFR (MDRD) Non-Af 99 BUN/Creatinine Ratio 23.9 H Glucose 98 Calcium 8.9 Total Bilirubin 0.40 AST 26 ALT 43 Alkaline Phosphatase 51 Total Protein 7.4 Albumin 3.5 Globulin 3.9 Albumin/Globulin Ratio 0.9 Ethyl Alcohol < 3.0 Management Discussion w/another healthcare provider: Hospitalist (Dr. Mcintyre) Treatment and Re-Evaluation Narrative: Case was discussed with the hospitalist. She will admit the patient to her service. Patient understood and was agreeable with the plan. All questions were answered. Discharge Plan Dx/Rx/DC Orders Clinical Impression: Desire for detoxification, Alcohol withdrawal Disposition Disposition: Acute Care Hospital [facility]
--- NOTE | 2023-04-26 19:04 | PCM.HP.STD ---
HPI - General General Date of Admission: 04/26/23 Date of Service: 04/26/23 Chief Complaint: Acute EtOH withdrawal HPI Narrative The patient is a 47 y/o M w/ PMHx: Hx CVA, Hx Chew tobacco use, Polysubstance abuse (cannabis, opiates, methampetamine), EtOH abuse, COPD/Asthma w/ known bulla, GERD, HTN, HLD who presents to the [facility] ED on 04/26/23 with acute EtOH withdrawal for detoxification treatment, onset starting day of presentation following last EtOH intake the evening prior with onset of mild nausea without any emesis, moderate tremors, mild increased agitation, tactile disturbances. Patient interested in attaining sober status and does report that the last time he went through detox unfortunately he did not remain sober for long but is interested in attempting again. He does report that his anxiety and depression have been worse work-up in the ED included T97.2, heart rate 83, BP 104/81, respiratory rate 18, 95% oxygenation on room air, CBC with WC 5.0, hemoglobin 12.8, MCV 94.4, platelet 273 without marked shift, CMP with BUN/creatinine 21/0.88 otherwise not marked appearing, at the alcohol less than 3, UDS pending upon requested evaluation of patient. [facility] Medical History (Updated 04/26/23 @ 19:[address] Alisha Mcintyre MD) Active substance abuse Alcohol abuse Anxiety and depression Asthma with COPD Bulla of lung GERD (gastroesophageal reflux disease) Hypertension Inguinal hernia bilateral, non-recurrent Methamphetamine abuse Past history of chewing tobacco use Stroke/cerebrovascular accident Home Medications albuterol sulfate 90 mcg/actuation aerosol inhaler (Ventolin HFA) 1 - 2 puff inhalation Q4H PRN PRN Wheezing #1 device 09/09/22 [Rx Last Taken Unknown] albuterol sulfate 90 mcg/actuation aerosol inhaler (ProAir HFA) 2 puff inhalation Q6H PRN shortness of breath or wheezing #8.5 grams 12/02/22 [Rx Last Taken 12/23/22] albuterol sulfate 90 mcg/actuation aerosol inhaler (Ventolin HFA) 1 - 2 puff inhalation Q4H PRN PRN Wheezing #1 inh 01/22/23 [Rx Last Taken Unknown] prednisone 20 mg tablet 40 mg (2 x 20 mg) PO DAILY 5 days #10 tabs 01/22/23 [Rx Last Taken Unknown] albuterol sulfate 90 mcg/actuation aerosol inhaler (Ventolin HFA) 2 puff inhalation Q4H PRN PRN Wheezing ##1 03/26/23 [Rx Last Taken Unknown] naproxen 500 mg tablet 500 mg PO BID #14 tabs 03/26/23 [Rx Last Taken Unknown] penicillin V potassium 500 mg tablet 500 mg PO 4X/DAY #40 tabs 03/26/23 [Rx Last Taken Unknown] Allergy/AdvReac Type Severity Reaction Status Date / Time No Known Allergies Allergy Verified 04/26/23 16:53 Family History Father Alcoholism CAD (coronary artery disease) Heart disease Hypertension Mother Alcoholism Seizures Surgical History History of ankle surgery Social History (Updated 04/26/23 @ 19:[address] Alisha Mcintyre MD) housing: homeless Smoking Status: Never smoker Smokeless tobacco user: chewing tobacco how long ago did patient quit smoking: Notes no cig tob use, prior chew only but no current, ongoing cannabis use. alcohol intake: current details: 5-6 beers daily, occasionally whiskey. substance use type: marijuana, opiates and methamphetamine ROS ROS Narrative Admission Review of Systems: CONSTITUTIONAL: No weight loss, fever, + chills, weakness or fatigue. HEENT: Eyes: No visual loss, blurred vision, double vision or yellow sclerae. Ears, Nose, Throat: No hearing loss, sneezing, congestion, runny nose or sore throat. SKIN: No rash or itching, lesions, wounds. CARDIOVASCULAR: No chest pain, chest pressure or chest discomfort, palpitations, edema, orthopnea, syncopal events. RESPIRATORY: + Occasional cough, no recent increased sputum or wheezing. No hemoptysis. GASTROINTESTINAL: + anorexia, nausea. No vomiting or diarrhea, abdominal pain, melena, BRBPR. GENITOURINARY: No dysuria, frequency, urgency or retention. NEUROLOGICAL: + Mild tremors, speech changes/aphasia, tactile disturbances. No headache, dizziness, syncope, paralysis, ataxia, numbness or tingling in the extremities, focal weakness, change in bowel or bladder control, seizure. MUSCULOSKELETAL: + muscle, back pain, joint pain or stiffness. HEMATOLOGIC: + anemia, bleeding or bruising. LYMPHATICS: No enlarged nodes. No history of splenectomy. PSYCHIATRIC: + history of depression or anxiety. ENDOCRINOLOGIC: No reports of sweating, cold or heat intolerance. No polyuria or polydipsia. ALLERGIES: + history of asthma, rhinitis. Vital Signs Vital Signs Vital Signs: 04/26/23 16:53 Temperature 97.2 F L Temperature Source Temporal Pulse Rate 83 Respiratory Rate 18 Blood Pressure 104/81 H Blood Pressure Mean 88 Pulse Ox 95 Oxygen Delivery Method Room Air Weight Weight: 126 lb 6.4 oz Body Mass Index (BMI) 20.4 Physical Exam Narrative Physical Examination: General: Awake, alert, oriented x 3 and cooperative, seated upright in ED bed, mildly restless, chronic aphasia present, unchanged from prior evaluation. Skin: Normal color, normal turgor, no icterus, no cyanosis except psoriatic skin change to hands and occasional abrasion/staged ecchymoses. HEENT: AT/NC, EOMI, PERRLA, mildly dry MM, no carotid bruits or JVD noted. Lungs: Mildly diminished, > bases, occasional end expiratory wheeze, he notes improved from recent exacerbation, no rales or marked rhonchi. Heart: Currently regular rhythm; no gallop, rub audible. Abdomen: Soft, thin habitus, NTTP, ND, mildly hyperactive BS, + HM. Extremities: No cyanosis, clubbing, or edema. Neurological: Patient awake, alert, oriented as noted, cognitive function appears baseline intact; pupils equally reactive to light and accommodation, cranial nerves grossly normal, moving all 4 extremities, no focal deficits, strength mildly globally decreased secondary to acute presentation, mildly tremulous, anxious, restless, chronic aphasia. Psychiatric: Affect appears mildly anxious, restless, reports underlying anxiety and depression which has been worse. Results Lab / Micro Data 04/26/23 18:10 04/26/23 18:10 Labs: Laboratory Results - last 24 hr 04/26/23 18:10: WBC 5.0, RBC 4.12 L, Hgb 12.8 L, Hct 38.9 L, MCV 94.4 H, MCH 31.1, MCHC 32.9, RDW Std Deviation 43.1, RDW Coeff of Bridger 12.5, Plt Count 273, MPV 8.7, Immature Gran % (Auto) 0.200, Neut % (Auto) 56.3, Lymph % (Auto) 22.0, [place] % (Auto) 6.0, Eos % (Auto) 14.7 H, Baso % (Auto) 0.8, Absolute Neuts (auto) 2.8, Absolute Lymphs (auto) 1.11, Nucleated RBC % 0, Sodium 139, Potassium 4.0, Chloride 107, Carbon Dioxide 29.0, Anion Gap 3 L, BUN 21 H, Creatinine 0.88, Estim Creat Clear Calc 84.16, Est GFR (MDRD) Af Amer 119, Est GFR (MDRD) Non-Af 99, BUN/Creatinine Ratio 23.9 H, Glucose 98, Calcium 8.9, Total Bilirubin 0.40, AST 26, ALT 43, Alkaline Phosphatase 51, Total Protein 7.4, Albumin 3.5, Globulin 3.9, Albumin/Globulin Ratio 0.9, Ethyl Alcohol < 3.0 Assessment & Plan Assessment/Plan (1) Alcohol withdrawal: PLAN: Plan The patient is a 47 y/o M w/ PMHx: Hx CVA, Hx Chew tobacco use, Polysubstance abuse (cannabis, opiates, methampetamine), EtOH abuse, COPD/Asthma w/ known bulla, GERD, HTN, HLD who presents to the [facility] ED on 04/26/23 with acute EtOH withdrawal for detoxification treatment. #1. Acute EtOH Withdrawal: Will admit to MS, routine labs obtained in the ED upon presentation and not marked appearing, awaiting UDS. Given interest in sobriety, will initiate and continue on protocol with taper course of Phenobarbital, as needed Catapres, gabapentin, Bentyl, Vistaril, IV fluids, IV antiemetics, Tylenol as needed for pain. Will consult Case management for assistance for transition to next level of rehabilitation care. Mag, phos pending. May add CIWA overlap with PRN ativan if symptoms notable. #2. Asthma/COPD: Not on any chronic regimen, will maintain on twice daily budesonide therapy as well as as needed albuterol, encourage tobacco cessation. #3. Hypertension: Noted previous history in the past, BP low normal, continue to monitor, PRN IV hydralazine. #4. Chew Tobacco Abuse: Encouraged cessation, inpatient consultation per RT, NR if desired. #5. Anxiety and depression: Not on any regimen, likely contributing to ongoing alcohol and polysubstance abuse, encourage counseling and medication consideration outpatient if appropriate. #6. Polysubstance abuse: Prior presentations with UDS notable for polysubstance abuse including Opiates/Cannabis/Methamphetamines, encourage both clean and sober status. CM consulted as noted. UDS pending upon admission. Records review with very report HIV/hepatitis assessment. Given polysubstance abuse will obtain HIV, RPR, hepatitis panel which was discussed with patient and he was notably amenable and eager for these results. #7. Hx prior CVA w/ chronic aphasia: Poor historian, will continue asa, not on hypertensive regimen or statin therapy, BP currently normal range. #8. Normocytic anemia, chronic component: Admission hemoglobin 12.8, MCV mildly elevated 94.4, prior normal range, appears similar to prior recent baseline 11-12, continue to assess outpatient. #9. DVT prophylaxis: Low risk, encourage ambulation. Charges/Coding Visit Charges Inpatient E&M: 12117 Init Hosp L2
[2023-04-26 19:34] LABS: Phosphorus 3.7 mg/dL (2.5-4.9)
[2023-04-26 19:54] VITALS: BP 105/69; PULSE 79; RESP 16; TEMP 36.6; O2SAT 98
[2023-04-26 19:57] VITALS: BP 105/69; PULSE 79; RESP 16; O2SAT 98
[2023-04-26 20:51] LABS: Amphetamine Urine VISTA POSITIVE (<1000 ng/mL); Barbiturate Urine VISTA NEGATIVE (< 200 ng/mL); Benzodiazepine Urine VISTA NEGATIVE (< 200 ng/mL); Cocaine Urine VISTA NEGATIVE (< 300 ng/mL); Ecstacy Urine VISTA POSITIVE (< 500 ng/mL); Methadone Urine VISTA NEGATIVE (< 300 ng/mL); PCP Urine VISTA NEGATIVE (< 25 ng/mL); THC Urine VISTA NEGATIVE (< 50 ng/mL); Vista UDS pH Range 5
[2023-04-26 20:56] VITALS: BMI 20.1
[2023-04-26 21:19] VITALS: BP 120/80; PULSE 67; RESP 18; TEMP 36.2; O2SAT 100
[2023-04-26] MEDS: traZODone 100 MG Tablet PO (22:14)
[2023-04-26] MEDS: Phenobarbital 32.4 MG Tablet 64.8 MG PO (22:14)
[2023-04-26 22:56] LABS: HIV - WCH Non-Reactive (Nonreactive); Hepatitis B Surface Antibody Reactive; Hepatitis B Surface Antigen Non-Reactive (Nonreactive); Hepatitis C Antibody Preliminary Reactive (Nonreactive); Syphilis Antibodies Non-reactive
[2023-04-27] VITALS (8 sets, daily range): BP systolic 103–135; BP diastolic 67–83; PULSE 62–79; RESP 12–22; TEMP 36.4–36.6; O2SAT 96–100
[2023-04-27] MEDS: Fluticasone 0.05% 1 SPRAY NASAL.SRY NASAL ×2 (00:26→09:40)
[2023-04-27] MEDS: Budesonide Respules 0.5 MG/2 ML AMPUL.NEB. INHALATION ×2 (05:45→19:30)
--- NOTE | 2023-04-27 06:59 | PCM.PN.HOSP ---
Reason for Visit Reason for Visit: Diagnoses Alcohol use, unspecified with withdrawal, unspecified (04/26/23) Subjective Subjective Patient is a 47-year-old gentleman with history of chronic alcohol dependence admitted with acute alcohol withdrawal Objective Data Objective Data Vital Signs: Vital Signs Temp Pulse Resp BP Pulse Ox O2 Del Method 97.8 F 79 22 H 112/71 96 Room Air 04/27/23 03:15 04/27/23 05:48 04/27/23 05:48 04/27/23 03:15 04/27/23 03:15 04/27/23 03:15 Oxygen Delivery Method Room Air Weight: 56.699 kg Body Mass Index (BMI) 20.1 Intake & Output: Intake and Output for Last 24 Hours 04/25/23 04/26/23 04/27/23 23:59 23:59 23:59 Intake Total 220 / 220 Balance 220 / 220 Lab / Micro Data 04/26/23 18:10 04/26/23 18:10 Labs: Laboratory Results - last 24 hr 04/26/23 18:10: WBC 5.0, RBC 4.12 L, Hgb 12.8 L, Hct 38.9 L, MCV 94.4 H, MCH 31.1, MCHC 32.9, RDW Std Deviation 43.1, RDW Coeff of Bridger 12.5, Plt Count 273, MPV 8.7, Immature Gran % (Auto) 0.200, Neut % (Auto) 56.3, Lymph % (Auto) 22.0, [place] % (Auto) 6.0, Eos % (Auto) 14.7 H, Baso % (Auto) 0.8, Absolute Neuts (auto) 2.8, Absolute Lymphs (auto) 1.11, Nucleated RBC % 0, Sodium 139, Potassium 4.0, Chloride 107, Carbon Dioxide 29.0, Anion Gap 3 L, BUN 21 H, Creatinine 0.88, Estim Creat Clear Calc 84.16, Est GFR (MDRD) Af Amer 119, Est GFR (MDRD) Non-Af 99, BUN/Creatinine Ratio 23.9 H, Glucose 98, Calcium 8.9, Phosphorus 3.7, Magnesium 2.0, Total Bilirubin 0.40, AST 26, ALT 43, Alkaline Phosphatase 51, Total Protein 7.4, Albumin 3.5, Globulin 3.9, Albumin/Globulin Ratio 0.9, Ethyl Alcohol < 3.0, Syphilis Total Ab Non-reactive, Hep Bs Antigen Non-Reactive, Hep Bs Antibody Reactive, Hepatitis C Antibody Preliminary Reactive, HIV 1&2 Antibody Non-Reactive 04/26/23 20:02: Urine Opiates Screen NEGATIVE, Urine Methadone Screen NEGATIVE, Ur Barbiturates Screen NEGATIVE, Ur Phencyclidine Scrn NEGATIVE, Ur Amphetamines Screen POSITIVE H, MDMA (Ecstasy) Screen POSITIVE H, U Benzodiazepines Scrn NEGATIVE, Urine Cocaine Screen NEGATIVE, U Cannabinoids Screen NEGATIVE, Ur Drug Screen Comment Physical Exam Narrative GENERAL: cooperative HEENT: Atraumatic; normocephalic EYES; Anicteric, Normal Conjunctiva NECK; supple, normal thyroid, RESPIRATORY: Diminished to auscultation CARDIOVASCULAR: Regular S1 S2, GI: soft, normoactive bowel sounds, : No Renal angle tenderness; EXTREMITIES: No edema, no clubbing, MUSCULOSKELETAL: no muscle wasting NEURO: Awake; no lateralizing signs. SKIN: No Rash PSYCH; Flat affect Assessment & Plan Assessment/Plan (1) Alcohol withdrawal: QUALIFIERS: Complication of substance-induced condition: uncomplicated Qualified Code(s): F10.930 - Alcohol use, unspecified with withdrawal, uncomplicated PLAN: Plan Patient is a 47-year-old gentleman admitted with acute alcohol withdrawal 1. Acute alcohol withdrawal ? Patient admitted to a nursing floor managed with phenobarb taper in addition to adjuvant therapy 2. 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 Continue patient bronchodilator treatment. Currently not in exacerbation 3. Polysubstance dependence ? Including cannabis opiate and methamphetamine. Counseled on cessation 4. Tobacco dependence - Counseled on cessation, offered nicotine patch for tobacco cravings 5. 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 Remains stable 6. DVT prophylaxis ? Low risk did encourage ambulation Time spent in the patient's overall evaluation,decision-making process, review of diagnostic data, adjustment of management, discussion with other providers, nursing nursing and ancillary staff involved in patient's care documentation, 35 Minutes Charges/Coding Visit Charges Inpatient E&M: 92282 Subs Hosp L2
[2023-04-27] MEDS: Folic Acid 1 MG Tablet PO (09:39)
[2023-04-27] MEDS: Aspirin 81 MG TAB.CHEW PO (09:39)
[2023-04-27] MEDS: Phenobarbital 32.4 MG Tablet 64.8 MG PO ×2 (09:40→12:42)
[2023-04-27] MEDS: Thiamine Hydrochloride 100 MG Tablet PO (09:40)
[2023-04-27] MEDS: 0.9% Saline Lock 10 ML Syringe IV (10:09)
--- NOTE | 2023-04-27 11:17 | ADDICTION ---
TW met with pt to complete ASAM, AUDIT, DUDIT, MSE, and begin D/C planning. Pt asked TW to come back and did not want to meet with her. TW asked if she was brief if they could meet and pt was amenable if it was brief. Pt then stated he does not want to talk about anything and is not interested in discussing treatment. TW informed him that it was part of the [facility] program. He reported that he does not care and he will leave if he has to. TW stated someone would be back in to speak with him tomorrow.
[2023-04-27] MEDS: Albuterol 2.5 MG/3 ML VIAL.NEB. INHALATION (19:31)
--- NOTE | 2023-04-28 01:44 | NURSING ---
pt refused to have vitals taken.
[2023-04-28 05:47] VITALS: BP 119/79; PULSE 61; RESP 16; TEMP 36.4; O2SAT 98
--- NOTE | 2023-04-28 07:17 | PCM.PN.HOSP ---
Reason for Visit Reason for Visit: Diagnoses Alcohol use, unspecified with withdrawal, uncomplicated (04/26/23) Alcohol use, unspecified with withdrawal, unspecified (04/26/23) Subjective Subjective Patient seen per nursing staff patient has been refusing phenobarb patient encouraged on the need to be compliant with the phenobarb taper Objective Data Objective Data Vital Signs: Vital Signs Temp Pulse Resp BP Pulse Ox O2 Del Method 97.5 F L 61 16 119/79 98 Room Air 04/28/23 05:47 04/28/23 05:47 04/28/23 05:47 04/28/23 05:47 04/28/23 05:47 04/28/23 05:47 Oxygen Delivery Method Room Air Weight: 56.699 kg Body Mass Index (BMI) 20.1 Intake & Output: Intake and Output for Last 24 Hours 04/26/23 04/27/23 04/28/23 23:59 23:59 23:59 Intake Total 1020 / 1020 Balance 1020 / 1020 Lab / Micro Data 04/26/23 18:10 04/26/23 18:10 Physical Exam Narrative GENERAL: cooperative HEENT: Atraumatic; normocephalic EYES; Anicteric, Normal Conjunctiva NECK; supple, normal thyroid, RESPIRATORY: Diminished to auscultation CARDIOVASCULAR: Regular S1 S2, GI: soft, normoactive bowel sounds, : No Renal angle tenderness; EXTREMITIES: No edema, no clubbing, MUSCULOSKELETAL: no muscle wasting NEURO: Awake; no lateralizing signs. SKIN: No Rash PSYCH; Flat affect Assessment & Plan Assessment/Plan (1) Alcohol withdrawal: QUALIFIERS: Complication of substance-induced condition: uncomplicated Qualified Code(s): F10.930 - Alcohol use, unspecified with withdrawal, uncomplicated PLAN: Plan Patient is a 47-year-old gentleman admitted with acute alcohol withdrawal 1. Acute alcohol withdrawal ? Patient admitted to a nursing floor managed with phenobarb taper in addition to adjuvant therapy ? 04/28/2023; Patient seen per nursing staff patient has been refusing phenobarb patient encouraged on the need to be compliant with the phenobarb taper 2. 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 Continue patient bronchodilator treatment. Currently not in exacerbation 3. Polysubstance dependence ? Including cannabis opiate and methamphetamine. Counseled on cessation 4. Tobacco dependence - Counseled on cessation, offered nicotine patch for tobacco cravings 5. 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 Remains stable 6. DVT prophylaxis ? Low risk did encourage ambulation Time spent in the patient's overall evaluation,decision-making process, review of diagnostic data, adjustment of management, discussion with other providers, nursing nursing and ancillary staff involved in patient's care documentation, 35 Minutes Charges/Coding Visit Charges Inpatient E&M: 02168 Subs Hosp L2
[2023-04-28] MEDS: Folic Acid 1 MG Tablet PO (07:57)
[2023-04-28] MEDS: Aspirin 81 MG TAB.CHEW PO (07:57)
[2023-04-28] MEDS: Thiamine Hydrochloride 100 MG Tablet PO (07:57)
[2023-04-28 07:58] VITALS: PULSE 80
[2023-04-28] MEDS: Phenobarbital 32.4 MG Tablet 64.8 MG PO (09:21)
--- NOTE | 2023-04-28 09:35 | PCM.DC.SUM ---
Providers Date of Admission: 04/26/23 Date of Discharge: 04/28/23 Primary Care Physician: Gayathri Primary Care Phys Reason For Visit: ETOH WITHDRAWAL Diagnosis Discharge Diagnosis (1) Alcohol withdrawal: Status: Acute Code(s): F10.939 - Alcohol use, unspecified with withdrawal, unspecified Qualifiers: Complication of substance-induced condition: uncomplicated Qualified Code(s): F10.930 - Alcohol use, unspecified with withdrawal, uncomplicated Plan Patient is a 47-year-old gentleman admitted with acute alcohol withdrawal 1. Acute alcohol withdrawal ? Patient admitted to a nursing floor managed with phenobarb taper in addition to adjuvant therapy ? 04/28/2023; Patient seen per nursing staff patient has been refusing phenobarb patient encouraged on the need to be compliant with the phenobarb taper 2. 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 Continue patient bronchodilator treatment. Currently not in exacerbation 3. Polysubstance dependence ? Including cannabis opiate and methamphetamine. Counseled on cessation 4. Tobacco dependence - Counseled on cessation, offered nicotine patch for tobacco cravings 5. 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 Remains stable 6. DVT prophylaxis ? Low risk did encourage ambulation Time spent in the patient's overall evaluation,decision-making process, review of diagnostic data, adjustment of management, discussion with other providers, nursing nursing and ancillary staff involved in patient's care documentation, 35 Minutes Medications at Discharge Home Medications albuterol sulfate 90 mcg/actuation aerosol inhaler (Ventolin HFA) 1 - 2 puff inhalation Q4H PRN PRN Wheezing #1 device 09/09/22 albuterol sulfate 90 mcg/actuation aerosol inhaler (ProAir HFA) 2 puff inhalation Q6H PRN shortness of breath or wheezing #8.5 grams 12/02/22 albuterol sulfate 90 mcg/actuation aerosol inhaler (Ventolin HFA) 1 - 2 puff inhalation Q4H PRN PRN Wheezing #1 inh 01/22/23 prednisone 20 mg tablet 40 mg (2 x 20 mg) PO DAILY not taking! 5 days #10 tabs 01/22/23 albuterol sulfate 90 mcg/actuation aerosol inhaler (Ventolin HFA) 2 puff inhalation Q4H PRN PRN Wheezing ##1 03/26/23 naproxen 500 mg tablet 500 mg PO BID pain #14 tabs 03/26/23 penicillin V potassium 500 mg tablet 500 mg PO 4X/DAY unknown why he taking #40 tabs 03/26/23 Hospital Course Summary of Care Provided Minutes Spent on Discharge: 35 Physical Exam Narrative GENERAL: cooperative HEENT: Atraumatic; normocephalic EYES; Anicteric, Normal Conjunctiva NECK; supple, normal thyroid, RESPIRATORY: Diminished to auscultation CARDIOVASCULAR: Regular S1 S2, GI: soft, normoactive bowel sounds, : No Renal angle tenderness; EXTREMITIES: No edema, no clubbing, MUSCULOSKELETAL: no muscle wasting NEURO: Awake; no lateralizing signs. SKIN: No Rash PSYCH; Flat affect Weight / BMI Weight Weight: 56.699 kg Body Mass Index (BMI) 20.1 ABG / Lab / Microbiology Data 04/26/23 18:10 04/26/23 18:10 D/C Instructions Discharge Diet: No restrictions Discharge Activity: Return to Normal Activity Call your doctor if you observe: Fever of 101 or Higher, Shortness of breath, Fainting spells and Chest pain Meaningful Use Info Meaningful Use Diagnoses (Choose all that apply): None applicable Discharge Plan Admission Admit Date/Time: 04/26/23 19:06 Attending Provider: Jaquan Mabry Primary Care Provider: Care Physician,No Primary Consulting Providers: Alisha Mcintyre Discharge Orders/Prescriptions Prescriptions: Continued albuterol sulfate [Ventolin HFA] 90 mcg/actuation HFA aerosol inhaler 1 - 2 puff inhalation Q4H PRN PRN (Reason: Wheezing) Qty: 1 0RF albuterol sulfate [ProAir HFA] 90 mcg/actuation HFA aerosol inhaler 2 puff inhalation Q6H PRN (Reason: shortness of breath or wheezing) Qty: 8.5 0RF albuterol sulfate [Ventolin HFA] 90 mcg/actuation HFA aerosol inhaler 1 - 2 puff inhalation Q4H PRN PRN (Reason: Wheezing) Qty: 1 0RF prednisone 20 mg tablet 40 mg PO DAILY 5 Days Qty: 10 0RF Hold Instructions: no longer taking Patient Comments: not t penicillin V potassium 500 mg tablet 500 mg PO 4X/DAY Qty: 40 0RF albuterol sulfate [Ventolin HFA] 90 mcg/actuation HFA aerosol inhaler 2 puff inhalation Q4H PRN PRN (Reason: Wheezing) Qty: 1 0RF naproxen 500 mg tablet 500 mg PO BID Qty: 14 0RF Hold Instructions: no longer takiing Referrals / Follow Up: Kristina Veloz DO [Med Staff - Consulting] - Within 1 Week (at 180) Care Physician,No Primary [Primary Care Provider] - Within 2 Weeks Disposition Disposition (needs filled in before D/C Order can be placed): Home, Self Care Charges/Coding Visit Charges Inpatient E&M: 33872 Disch Hosp >30min
== END 2023-04-28 11:50 | disposition home or self-care (01) | DRG 772 ==
LOC: ED 19:02 → MS3 19:36
PROVIDERS: Admitting Provider Family Medicine; Emergency Provider Emergency Medicine; Visit Provider Internal Medicine
DX: F10.239 Alcohol dependence with withdrawal, unspecified (principal); E78.5 Hyperlipidemia, unspecified; J43.9 Emphysema, unspecified; F12.20 Cannabis dependence, uncomplicated; F15.20 Other stimulant dependence, uncomplicated; F11.20 Opioid dependence, uncomplicated; I69.320 Aphasia following cerebral infarction; I10 Essential (primary) hypertension; F41.9 Anxiety disorder, unspecified; J45.909 Unspecified asthma, uncomplicated; F32.A Depression, unspecified; Y90.0 Blood alcohol level of less than 20 mg/100 ml; Z87.891 Personal history of nicotine dependence
CPT/HCPCS: 80053; 80307; 82077; 83735; 84100; 85025; 86703; 86706; 86780; 86803; 87340; 94640; 97802; 99282; A4216

== ENCOUNTER 2023-05-29 00:57 | Emergency (ER) | payer MEDICAID, SELFPAY ==
[2023-05-29 00:57] VITALS: BP 120/81; PULSE 96; RESP 22; TEMP 36.6; O2SAT 100
[2023-05-29 00:58] VITALS: BP 120/81; PULSE 100; RESP 20; TEMP 36.6; O2SAT 98; BMI 20.1
--- NOTE | 2023-05-29 01:11 | EDS_ITS ---
HPI History of Present Illness Chief Complaint: Shortness of Breath Informant: patient Narrative Narrative: Patient is a 47-year-old male with past medical history of asthma and alcohol use. He states that secondary to the recent weather changes he has been hav ing intermittent bouts of difficulty breathing and wheezing. He states this feels similar nature to his previous asthma exacerbations. He denies any previous admission secondary to the asthma. He states he does not have an inhaler at home to help control symptoms and therefore comes in for evaluation. [facility] Medical History (Updated 05/29/23 @ 02:[address] Andrew Henning, ) Active substance abuse Alcohol abuse Ankle fracture, left Anxiety Anxiety and depression Asthma with COPD Bipolar disorder Bulla of lung Depression GERD (gastroesophageal reflux disease) Hypertension Inguinal hernia bilateral, non-recurrent Methamphetamine abuse Past history of chewing tobacco use Stroke/cerebrovascular accident Home Medications albuterol sulfate 90 mcg/actuation aerosol inhaler (Ventolin HFA) 1 - 2 puff inhalation Q4H PRN PRN Wheezing #1 device 09/09/22 [Rx Last Taken Unknown] albuterol sulfate 90 mcg/actuation aerosol inhaler (ProAir HFA) 2 puff inhalation Q6H PRN shortness of breath or wheezing #8.5 grams 12/02/22 [Rx Last Taken 12/23/22] albuterol sulfate 90 mcg/actuation aerosol inhaler (Ventolin HFA) 1 - 2 puff inhalation Q4H PRN PRN Wheezing #1 inh 01/22/23 [Rx Last Taken Unknown] prednisone 20 mg tablet 40 mg (2 x 20 mg) PO DAILY not taking! 5 days #10 tabs 01/22/23 [Rx Last Taken Unknown] albuterol sulfate 90 mcg/actuation aerosol inhaler (Ventolin HFA) 2 puff inhalation Q4H PRN PRN Wheezing ##1 03/26/23 [Rx Last Taken Unknown] naproxen 500 mg tablet 500 mg PO BID pain #14 tabs 03/26/23 [Rx Last Taken Unknown] penicillin V potassium 500 mg tablet 500 mg PO 4X/DAY unknown why he taking #40 tabs 03/26/23 [Rx Last Taken Unknown] albuterol sulfate 90 mcg/actuation aerosol inhaler (Ventolin HFA) 1 - 2 puff inhalation Q4H PRN PRN shortness of breath or wheezing #8.5 grams 05/29/23 [Rx Last Taken Unknown] Allergy/AdvReac Type Severity Reaction Status Date / Time No Known Allergies Allergy Verified 04/26/23 16:53 Family History Father Alcoholism CAD (coronary artery disease) Heart disease Hypertension Mother Alcoholism Seizures Surgical History History of ankle surgery Social History (Updated 04/26/23 @ 19:[address] Alisha Mcintyre MD) housing: homeless Smoking Status: Never smoker Smokeless tobacco user: chewing tobacco how long ago did patient quit smoking: Notes no cig tob use, prior chew only but no current, ongoing cannabis use. alcohol intake: current details: 5-6 beers daily, occasionally whiskey. substance use type: marijuana, opiates and methamphetamine ROS ROS ED Constitutional Constitutional ED: Denies chills or fever(s) ENT ENT ED: Reports rhinorrhea; Denies sore throat Cardiovascular Cardiovascular: Denies chest pain Respiratory/Chest Respiratory/Chest: Reports cough and dyspnea Gastrointestinal Gastrointestinal: Denies abdominal pain, diarrhea, nausea or vomiting Genitourinary Genitourinary ED: Denies dysuria Musculoskeletal Musculoskeletal: Denies myalgias Integumentary Denies rash Neurologic Neurologic: Denies headache(s) Hematologic/Lymphatic Hematologic/Lymphatic: Denies easy bleeding or easy bruising EXAM Physical Exam Const Vital Signs: 05/29/23 00:57 05/29/23 00:58 05/29/23 01:03 Temperature 97.8 F 97.9 F Temperature Source Temporal Temporal Pulse Rate 96 100 Respiratory Rate 22 H 20 H Respiratory Effort Normal Blood Pressure 120/81 H 120/81 H Blood Pressure Mean 94 94 Pulse Ox 100 98 Oxygen Delivery Method Room Air Room Air Positive well nourished and well developed General Appearance ED: well developed HEENT Reports moist mucous membranes HEENT Narrative: Cobblestoning noted in the posterior pharynx consistent with sinus drainage without airway edema or compromise. No tongue or lip swelling. No oral lesions. Eyes PERRL and EOMs intact bilaterally General Eye ED: Negative for scleral icterus Neck supple and no JVD Chest Wall palpation of chest normal Chest Narrative: No bony deformity or crepitance Resp normal respiratory effort Resp Narrative: Patient has diffuse expiratory wheezing without nasal flaring retractions tachypnea or accessory muscle use Cardio regular rate and regular rhythm Extremity normal to inspection Extremity Narrative: No asymmetric edema no pitting edema negative Homans' sign bilaterally Neuro oriented x3, CN's II-XII intact bilaterally and no sensory deficits noted Sensorium / Orientation: alert Motor Exam: strength 5/5 throughout Psych mental status grossly normal Skin no rashes or lesions noted MDM MDM MDM Narrative Medical decision making narrative: Patient presented to the ER satting 98 to 100% on room air without signs of respiratory distress. His breath sounds do show diffuse expiratory wheeze consistent with asthma. His asthma is relatively well controlled as he denies any previous admission from it. With concern this could be pneumonia versus pneumothorax versus asthma exacerbation versus congestive heart failure versus respiratory tract infection we did discuss potential viral swabs and chest x- ray. Patient reports this feels similar nature to his previous asthma exacerbations and is only here to request an inhaler. As he is in no acute distress I do not feel he needs steroids either and therefore he will be given a albuterol sulfate inhaler and discharged home History & Record Review Discussion w/independent historian: Patient Discharge Plan Triage Chief Complaint: Shortness of Breath ED Provider: Andrew Henning Dx/Rx/DC Orders Clinical Impression: Asthma exacerbation, History of bipolar disorder, History of substance abuse Instructions: Asthma Prescriptions: New albuterol sulfate [Ventolin HFA] 90 mcg/actuation HFA aerosol inhaler 1 - 2 puff inhalation Q4H PRN PRN (Reason: shortness of breath or wheezing) Qty: 8.5 2RF No Action albuterol sulfate [Ventolin HFA] 90 mcg/actuation HFA aerosol inhaler 1 - 2 puff inhalation Q4H PRN PRN (Reason: Wheezing) Qty: 1 0RF albuterol sulfate [ProAir HFA] 90 mcg/actuation HFA aerosol inhaler 2 puff inhalation Q6H PRN (Reason: shortness of breath or wheezing) Qty: 8.5 0RF albuterol sulfate [Ventolin HFA] 90 mcg/actuation HFA aerosol inhaler 1 - 2 puff inhalation Q4H PRN PRN (Reason: Wheezing) Qty: 1 0RF prednisone 20 mg tablet 40 mg PO DAILY 5 Days Qty: 10 0RF Hold Instructions: no longer taking Patient Comments: not t penicillin V potassium 500 mg tablet 500 mg PO 4X/DAY Qty: 40 0RF albuterol sulfate [Ventolin HFA] 90 mcg/actuation HFA aerosol inhaler 2 puff inhalation Q4H PRN PRN (Reason: Wheezing) Qty: 1 0RF naproxen 500 mg tablet 500 mg PO BID Qty: 14 0RF Hold Instructions: no longer takiing Primary Care Provider: Care Physician,No Primary Referrals: Safia Dimas MD [Med Staff - Delivery Professional] - Care Physician,No Primary [Primary Care Provider] - Activity Restrictions/Additional Instructions: Please use your inhaler as directed to control any asthma symptoms and return to the ER should you have any further concerns Disposition Disposition: Home, Self Care Discharge Date/Time: 05/29/23 01:42
[2023-05-29] MEDS: Albuterol Sulfate 8 gm Inhaler (60 puffs) 2 PUFF INHALATION (01:41)
== END 2023-05-29 01:42 | disposition home or self-care (01) ==
LOC: ED 01:22
PROVIDERS: Emergency Provider Emergency Medicine; Visit Provider Emergency Medicine
DX: J45.901 Unspecified asthma with (acute) exacerbation (principal); F12.90 Cannabis use, unspecified, uncomplicated; F17.220 Nicotine dependence, chewing tobacco, uncomplicated; Z86.73 Personal history of transient ischemic attack (TIA), and cerebral infarction without residual deficits; Z59.00 Homelessness unspecified
CPT/HCPCS: 99281; 99282

== ENCOUNTER 2023-09-01 00:29 | Emergency (ER) | payer MEDICAID, SELFPAY ==
[2023-09-01 00:29] VITALS: BP 114/73; PULSE 92; RESP 17; TEMP 35.6; O2SAT 98; BMI 23.3
--- NOTE | 2023-09-01 00:55 | EX.ED.DYSGE1 ---
HPI History of Present Illness Chief Complaint: Other, Pain/Inj Informant: patient Narrative Narrative: Patient presents with 2 concerns. First concern is he is out of his albuterol inhaler. Second concern is his right inguinal hernia. Patient has a long history of asthma. He just lost his backpack and his inhaler was in it. He denies any respiratory problems now even though he is wheezing. He denies dyspnea. He just needs an inhaler. Patient also states he has had a hernia for somewhere between 6 and 8 years. Right-sided. It looks like he saw Dr. Duke here over the summer. But he tells me he saw a doctor at [facility] about 3 days ago. He is set up to follow-up in my [place] for what sounds like surgery. But he lost all his paperwork that was in the backpack as mentioned above. He states when he walked over here the hernia came out and it gets sore when it is out. But it goes back in easily. He has no nausea vomiting change in bowel habits fevers or chills. He states if he lays down flat it will go back in. It has been doing this for years. [facility] Medical History Active substance abuse Alcohol abuse Ankle fracture, left Anxiety Anxiety and depression Asthma with COPD Bipolar disorder Bulla of lung Depression GERD (gastroesophageal reflux disease) Hypertension Inguinal hernia bilateral, non-recurrent Methamphetamine abuse Past history of chewing tobacco use Stroke/cerebrovascular accident Home Medications albuterol sulfate 90 mcg/actuation aerosol inhaler (Ventolin HFA) 1 - 2 puff inhalation Q4H PRN PRN Wheezing #1 device 09/09/22 [Rx Last Taken Unknown] albuterol sulfate 90 mcg/actuation aerosol inhaler (ProAir HFA) 2 puff inhalation Q6H PRN shortness of breath or wheezing #8.5 grams 12/02/22 [Rx Last Taken 12/23/22] albuterol sulfate 90 mcg/actuation aerosol inhaler (Ventolin HFA) 1 - 2 puff inhalation Q4H PRN PRN Wheezing #1 inh 01/22/23 [Rx Last Taken Unknown] albuterol sulfate 90 mcg/actuation aerosol inhaler (Ventolin HFA) 2 puff inhalation Q4H PRN PRN Wheezing ##1 03/26/23 [Rx Last Taken Unknown] albuterol sulfate 90 mcg/actuation aerosol inhaler (Ventolin HFA) 1 - 2 puff inhalation Q4H PRN PRN shortness of breath or wheezing #8.5 grams 05/29/23 [Rx Last Taken Unknown] Allergy/AdvReac Type Severity Reaction Status Date / Time No Known Allergies Allergy Verified 09/01/23 00:30 Family History Father Alcoholism CAD (coronary artery disease) Heart disease Hypertension Mother Alcoholism Seizures Surgical History History of ankle surgery Social History housing: homeless Smoking Status: Never smoker Smokeless tobacco user: chewing tobacco how long ago did patient quit smoking: Notes no cig tob use, prior chew only but no current, ongoing cannabis use. alcohol intake: current details: 5-6 beers daily, occasionally whiskey. substance use type: marijuana, opiates and methamphetamine ROS ROS ED ROS Narrative A complete review of systems was performed and is negative except as documented in the history of present illness. Some specific details below. Constitutional: No recent fevers or chills. EYE: No visual complaints or pain. ENT: No difficulty swallowing. No swelling. No pain. CV: No chest pain or palpitations. Respiratory: No dyspnea. No hemoptysis. No difficulty taking breaths. He needs his inhaler but he is denying any respiratory symptoms to me. GI: Please see history of present illness. He complains of the presence of the hernia. But no nausea vomiting change in bowel habits. : No frequency dysuria or hematuria. Musculoskeletal: No recent trauma. No pains. Skin: No rash. Nondiaphoretic. Neuro: No weakness or numbness. Endocrine: No polyuria or polydipsia. EXAM Physical Exam Narrative Exam Narrative: CONSTITUTIONAL: Patient is nontoxic in appearance. The patient looks comfortable. He is sitting comfortably in the bed. HEENT: No notable trauma. Mucous membranes moist. No sinus tenderness. EYES: No conjunctival injection. No proptosis. CARDIOVASCULAR: Regular rate. Regular rhythm. No notable murmur. No JVD. Normal pulses x 4. RESPIRATORY: No respiratory distress. Breathing is unlabored. He does have some expiratory wheezes. No rhonchi. No rales. No pain with a deep breath. Despite his wheezes he does not feel short of breath. He does not feel that he is wheezing. GASTROINTESTINAL: Not distended. Bowel sounds are normal. No tenderness. No guarding. No rebound. No palpable intra-abdominal mass. No bruit. See below exam also. GENITOURINARY: Normal penis and testicles. He does have fullness on the right inguinal area. But this is while sitting and standing. I laid him flat and this resolved by itself. I did not even need to push on the area. I did press to make sure there was no mass or hernia sac still present. I could not find 1. There is no tenderness there. When I have him strain or stand up it comes out easily. I have him lay back down again and it went back in. MUSCULOSKELETAL: Atraumatic. No peripheral edema. NEUROLOGICAL: Patient is alert and appropriate. No focal deficit noted. SKIN: No noted rashes. No diaphoresis. PSYCHIATRIC: Patient is calm. Mood is appropriate. Const Vital Signs: 09/01/23 00:29 09/01/23 00:29 Temperature 96.1 F L Temperature Source Temporal Pulse Rate 92 Respiratory Rate 17 Respiratory Effort Normal Non-Labored Respiratory Pattern Normal Blood Pressure 114/73 Blood Pressure Mean 86 Pulse Ox 98 Oxygen Delivery Method Room Air MDM MDM MDM Narrative Medical decision making narrative: I will get the patient an albuterol MDI here. I think writing a prescription would not be as effective as it may be difficult for this patient to fill this. If he has more respiratory issues or develops any issues he needs to come back. The triage note seem to imply that this hernia was out, stuck and painful. That is not the story he is getting me. The hernia comes out every time he walks. When he walks and the hernia is out it is sore. But when he lays down it gets better. I do not think this needs an acute evaluation now. Certainly this could change at any time. I explained that since he lost all his paperwork he should go back to the office that he was at. He can go there in the morning. He can get copies of the paperwork and follow-up. If he develops nausea vomiting blood in the stool or change in bowel habits or the hernia comes out and is not reducible he should return. Discharge Plan Triage Chief Complaint: Other, Pain/Inj ED Provider: Ender Garcia Dx/Rx/DC Orders Clinical Impression: Medication refill, History of asthma, Hernia, inguinal, right Instructions: ED Hernia (Adult) Prescriptions: No Action albuterol sulfate [Ventolin HFA] 90 mcg/actuation HFA aerosol inhaler 1 - 2 puff inhalation Q4H PRN PRN (Reason: Wheezing) Qty: 1 0RF albuterol sulfate [ProAir HFA] 90 mcg/actuation HFA aerosol inhaler 2 puff inhalation Q6H PRN (Reason: shortness of breath or wheezing) Qty: 8.5 0RF albuterol sulfate [Ventolin HFA] 90 mcg/actuation HFA aerosol inhaler 1 - 2 puff inhalation Q4H PRN PRN (Reason: Wheezing) Qty: 1 0RF albuterol sulfate [Ventolin HFA] 90 mcg/actuation HFA aerosol inhaler 2 puff inhalation Q4H PRN PRN (Reason: Wheezing) Qty: 1 0RF albuterol sulfate [Ventolin HFA] 90 mcg/actuation HFA aerosol inhaler 1 - 2 puff inhalation Q4H PRN PRN (Reason: shortness of breath or wheezing) Qty: 8.5 2RF Primary Care Provider: Care Physician,No Primary Referrals: Care Physician,No Primary [Primary Care Provider] - Activity Restrictions/Additional Instructions: Follow-up with the surgeons office tomorrow so they can reprint the appropriate follow-up paperwork and plans for your hernia surgery. Disposition Disposition: Home, Self Care
[2023-09-01 01:06] VITALS: PULSE 71; RESP 16; O2SAT 98
[2023-09-01] MEDS: Albuterol Sulfate 8 gm Inhaler (60 puffs) 2 PUFF INHALATION (01:11)
== END 2023-09-01 01:12 | disposition home or self-care (01) ==
LOC: ED 01:05
PROVIDERS: Emergency Provider Emergency Medicine; Visit Provider Emergency Medicine
DX: Z76.0 Encounter for issue of repeat prescription (principal); J43.9 Emphysema, unspecified; K40.90 Unilateral inguinal hernia, without obstruction or gangrene, not specified as recurrent; Z59.00 Homelessness unspecified; I10 Essential (primary) hypertension; K21.9 Gastro-esophageal reflux disease without esophagitis; Z87.891 Personal history of nicotine dependence
CPT/HCPCS: 99282

== ENCOUNTER 2023-10-15 11:21 | Emergency (ER) | payer MEDICAID, SELFPAY ==
[2023-10-15 11:21] VITALS: BP 168/130; PULSE 52; RESP 16; TEMP 35.9; O2SAT 98; BMI 20.9
--- NOTE | 2023-10-15 11:32 | EX.ED.DYSGE1 ---
HPI <MALIA Bowens - Last Filed: 10/15/23 11:38> History of Present Illness Chief Complaint: Med Refill Narrative Narrative: Patient is here for a refill of his albuterol inhaler because he does not currently have a primary care doctor. He ran out about a week ago. Typically uses it once or twice a day before walking or activity. He denies increased shortness of breath or cough. PFSH <MALIA Bowens - Last Filed: 10/15/23 11:38> [facility] Medical History Active substance abuse Alcohol abuse Ankle fracture, left Anxiety Anxiety and depression Asthma with COPD Bipolar disorder Bulla of lung Depression GERD (gastroesophageal reflux disease) Hypertension Inguinal hernia bilateral, non-recurrent Methamphetamine abuse Past history of chewing tobacco use Stroke/cerebrovascular accident Home Medications albuterol sulfate 90 mcg/actuation aerosol inhaler (Ventolin HFA) 1 - 2 puff inhalation Q4H PRN PRN Wheezing #1 device 09/09/22 [Rx Last Taken Unknown] albuterol sulfate 90 mcg/actuation aerosol inhaler (ProAir HFA) 2 puff inhalation Q6H PRN shortness of breath or wheezing #8.5 grams 12/02/22 [Rx Last Taken 12/23/22] albuterol sulfate 90 mcg/actuation aerosol inhaler (Ventolin HFA) 1 - 2 puff inhalation Q4H PRN PRN Wheezing #1 inh 01/22/23 [Rx Last Taken Unknown] albuterol sulfate 90 mcg/actuation aerosol inhaler (Ventolin HFA) 2 puff inhalation Q4H PRN PRN Wheezing ##1 03/26/23 [Rx Last Taken Unknown] albuterol sulfate 90 mcg/actuation aerosol inhaler (Ventolin HFA) 1 - 2 puff inhalation Q4H PRN PRN shortness of breath or wheezing #8.5 grams 05/29/23 [Rx Last Taken Unknown] albuterol sulfate 90 mcg/actuation aerosol inhaler (Ventolin HFA) 1 - 2 puff inhalation Q4H PRN PRN Wheezing 30 days #8.5 grams 10/15/23 [Rx Last Taken Unknown] Allergy/AdvReac Type Severity Reaction Status Date / Time No Known Allergies Allergy Verified 10/15/23 11:21 Family History Father Alcoholism CAD (coronary artery disease) Heart disease Hypertension Mother Alcoholism Seizures Surgical History History of ankle surgery Social History housing: homeless Smoking Status: Never smoker Smokeless tobacco user: chewing tobacco how long ago did patient quit smoking: Notes no cig tob use, prior chew only but no current, ongoing cannabis use. alcohol intake: current details: 5-6 beers daily, occasionally whiskey. substance use type: marijuana, opiates and methamphetamine ROS <MALIA Bowens - Last Filed: 10/15/23 11:38> ROS ED ROS Narrative Constitutional: Negative for fever, chills, malaise. CVS: Negative for palpitations, chest pain. Respiratory: Negative for shortness of breath, cough. EXAM <MALIA Bowens - Last Filed: 10/15/23 11:38> Physical Exam Narrative Exam Narrative: CONST: Patient sitting in no acute distress. EYES: Normal inspection. NECK: Normal inspection. RESP: No respiratory distress, CTAB. CVS: Regular rate and rhythm, no murmur, no gallop. SKIN: Color normal, no rash, warm, dry, intact. EXTREMITIES: Normal appearance, no pedal edema. NEURO: Oriented x4. PSYCH: Normal affect. Const Vital Signs: 10/15/23 11:21 10/15/23 11:33 10/15/23 11:51 Temperature 96.7 F L Temperature Source Temporal Pulse Rate 52 L Respiratory Rate 16 Respiratory Effort Normal Non-Labored Respiratory Pattern Normal Blood Pressure 168/130 H 157/91 H Blood Pressure Mean 142 113 Pulse Ox 98 Oxygen Delivery Method Room Air <Dr. Hattie Kapadia, - Last Filed: 10/15/23 13:51> Physical Exam Const Vital Signs: 10/15/23 11:21 10/15/23 11:33 10/15/23 11:51 Temperature 96.7 F L Temperature Source Temporal Pulse Rate 52 L Respiratory Rate 16 Respiratory Effort Normal Non-Labored Respiratory Pattern Normal Blood Pressure 168/130 H 157/91 H Blood Pressure Mean 142 113 Pulse Ox 98 Oxygen Delivery Method Room Air [facility] <MALIA Bowens - Last Filed: 10/15/23 11:38> [facility] Narrative Medical decision making narrative: Patient requested refill of his albuterol inhaler. He speaking full sentences in no distress and has clear lung sounds. I provided refill and primary care follow-up and he was discharged in stable condition. <Dr. Hattie Kapadia DO - Last Filed: 10/15/23 13:51> [facility] Narrative Medical decision making narrative: Patient requested refill of his albuterol inhaler. He speaking full sentences in no distress and has clear lung sounds. I provided refill and primary care follow-up and he was discharged in stable condition. I have personally performed a face to face assessment of the patient and have reviewed the CURLY Note. I performed a substantive portion of the visit including all aspects of the following. My barrett findings include: History is patient is a 47-year-old male with history of homelessness (currently living at a homeless alf) as well as reactive airway presenting for medication refill. Patient currently not have a primary care doctor. He does follow with the counseling center. He states that he uses inhaler up to twice a day and is out. He would like this refilled. Is currently denies any shortness of breath or respiratory symptoms. Notes he has had some weight loss recently but attributes that to his current living situation. Denies any other complaints or concerns at this time. On exam patient is breathing easily with clear breath sounds throughout. No signs of respiratory distress. Heart regular rate and rhythm. Appears nontoxic in no acute distress. Is given a refill for his albuterol and [facility] He is agreeable to plan of care. Discharged home in stable condition. Encouraged to return to the ER if he has further concerns or develop new symptoms. Other additions or changes: [None] Discharge Plan Triage Chief Complaint: Med Refill ED Midlevel Provider: Agatha Corbin ED Provider: Hattie Kapadia Dx/Rx/DC Orders Clinical Impression: Medication refill Instructions: Med Refill Prescriptions: New albuterol sulfate [Ventolin HFA] 90 mcg/actuation HFA aerosol inhaler 1 - 2 puff inhalation Q4H PRN PRN (Reason: Wheezing) 30 Days Qty: 8.5 1RF No Action albuterol sulfate [Ventolin HFA] 90 mcg/actuation HFA aerosol inhaler 1 - 2 puff inhalation Q4H PRN PRN (Reason: Wheezing) Qty: 1 0RF albuterol sulfate [ProAir HFA] 90 mcg/actuation HFA aerosol inhaler 2 puff inhalation Q6H PRN (Reason: shortness of breath or wheezing) Qty: 8.5 0RF albuterol sulfate [Ventolin HFA] 90 mcg/actuation HFA aerosol inhaler 1 - 2 puff inhalation Q4H PRN PRN (Reason: Wheezing) Qty: 1 0RF albuterol sulfate [Ventolin HFA] 90 mcg/actuation HFA aerosol inhaler 2 puff inhalation Q4H PRN PRN (Reason: Wheezing) Qty: 1 0RF albuterol sulfate [Ventolin HFA] 90 mcg/actuation HFA aerosol inhaler 1 - 2 puff inhalation Q4H PRN PRN (Reason: shortness of breath or wheezing) Qty: 8.5 2RF Primary Care Provider: Care Physician,No Primary Referrals: Leslie Tal[facility] [Non-Staff] - Care Physician,No Primary [Primary Care Provider] - Disposition Disposition: Home, Self Care Discharge Date/Time: 10/15/23 11:52
--- OUTSIDE RECORDS SUMMARY | 2023-10-15 11:47 | XMS RPT_ITS | CCD ---
Author Name Unknown Address [id number] [place] [address] Organization [facility] Care Team Providers Care Dairy Technologist Name Role Phone CONSULT, ED PSYCHIATRY TEAM Unavailable Unav PEÑA Phillips Unavailable Unavailable Unavailable Primary Care Provider JOHN Sweet Attending Unavailable Allergies Allergy Classification Reported Allergen(s) Allergy Type Date of Onset Reaction(s) Facility (1 source) Seasonal allergy; Translations: [SEASONAL ALLERGIES] Propensity to adverse reactions (disorder) 3 [facility] Repository Medications Current Medications Medication Drug Class(es) Dates Sig (Normalized) Sig (Original) polyethylene glycol 3350 010249 mg / potassium chloride 2970 mg / sodium bicarbonate 6740 mg / sodium chloride 5860 mg / sodium sulfate 11720 mg powder for oral solution (1 source) Osmotic Laxative Start: 08-28-2023 End: 08-28-2023 peg 3350-Electrolytes (GOLYTELY) 236-22.74-6.74 -5.86 gram suspension Indications: Screening for colon cancer Take 4,000 mL by mouth one time only for 1 dose. Refer to printed prep instructions from your provider. 4000 mL 0 08/28/2023 08/28/2023 Active Completed/Discontinued Medications Medication Drug Class(es) Dates Sig (Normalized) Sig (Original) OLANZapine 5 mg oral tablet (1 source) Atypical Antipsychotic take 1 tablet by mouth once daily at bedtime OLANZapine (ZYPREXA) 5 mg tablet Take 5 mg by mouth daily at bedtime. 0 Active Problems Active Problems Problem Classification Problem Date Documented Date Episodic/Chronic Abdominal hernia (1 source) Right inguinal hernia ; Translations: [Unilateral inguinal hernia, without obstruction or gangrene, not specified as recurrent] 08-28-2023 Episodic Other screening for suspected conditions (not mental disorders or infectious disease) (1 source) Patient encounter status; Translations: [Encounter for screening for malignant neoplasm of colon] 08-28-2023 Episodic Unclassified (1 source) Other stimulant use, unspecified with intoxication, uncomplicated / F15.920(ICD-10) Onset: 06-05-2018 Unclassified (1 source) Other psychoactive substance use, 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(ICD-10) Onset: 06-05-2018 Past or Other Problems Problem Classification Problem Date Documented Da te Episodic/Chronic Unclassified (1 source) Other stimulant use, unspecified with intoxication, uncomplicated; Translations: [Other stimulant use, unspecified with intoxication, uncomplicated] Onset: 06-05-2018 Unclassified (1 source) Other psychoactive substance use, 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; Translations: [Other psychoactive substance use, 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] Onset: 06-05-2018 Results Test Name Value Interpretation Reference Range Facil ity Vital Signs Date Time Vital Sign Value Performing Clinician Faci lity 08-28-2023 10:33-0500 Body height 170.2 cm John Lyons MD Work Phone: [facility] 08-28-2023 10:33-0500 Body temperature 97.9 [degF] John Lyons MD Work Phone: [facility] 08-28-2023 10:33-0500 Body weight 63.87 kg John Lyons MD Work Phone: [facility] 08-28-2023 10:33-0500 Diastolic blood pressure 84 mm[Hg] John Lyons MD Work Phone: [facility] 08-28-2023 10:33-0500 Heart rate 109 /min John Lyons MD Work Phone: [facility] 08-28-2023 10:33-0500 SaO2% (BldA) [Mass fraction] 96 % John Lyons MD Work Phone: [facility] 08-28-2023 10:33-0500 Systolic blood pressure 130 mm[Hg] John Lyons MD Work Phone: [facility] Encounters Encounter Date Encounter Type Care Provider Facility Start: 08-28-2023 End: 08-28-2023 ambulatory JOHN LYONS Facility:[facility] Start: 08-28-2023 End: 08-28-2023 Patient encounter procedure John Lyons MD Work Phone: General Surgery Plan of Treatment Date Care Activity Detail Author Start: 11-03-2032 Urine microalbumin profile DTaP,Tdap,Td Vaccine (3 - Td or Tdap) [facility] Start: 06-02-2023 Covid-19 Vaccine () Covid-19 Vaccine () [facility] Start: 06-02-2023 Influenza vaccination Influenza Vaccine (#1) [facility] Start: 10-02-2022 Depression Assessment Depression Assessment [facility] Start: 2020 Cologuard (FIT-DNA) Cologuard (FIT-DNA) [facility] Start: 2020 Colonoscopy Colonoscopy [facility] Start: 2020 Colorectal Cancer Screening Colorectal Cancer Screening [facility] Start: [address] Colonography [facility] Start: 2020 Diabetes Screening Diabetes Screening [facility] Start: 2020 Fecal Occult Blood Fecal Occult Blood [facility] Start: 2020 Sigmoidoscopy Sigmoidoscopy [facility] Start: 2010 Lipid 1996 panel - Serum or Plasma Lipid Screening [facility] Start: 1993 Hepatitis C Screening Hepatitis C Screening [facility] Start: 1993 HIV Screening HIV Screening [facility] Start: 1975 Hepatitis B Vaccine (1 of 3 - 3-dose series) Hepatitis B Vaccine (1 of 3 - 3-dose series) [facility] End: 08-28-2024 Screening colonoscopy COLONOSCOPY SCREENING Endoscopy Routine Screening for colon cancer 1 Occurrences starting 08/28/2023 until 08/28/2024 [facility] Work Phone: Immunizations Immunization Date Immunization Notes Care Provider Fa cili 09-23-2020 influenza, seasonal, injectable, preservative free John Lyons MD Work Phone: [facility] Work Phone: 09-23-2020 influenza virus vacc ine, unspecified formulation John Lyons MD Work Phone: [facility] 02-25-2017 tetanus toxoid, redu kathryn diphtheria toxoid, and acellular pertussis vaccine, adsorbed John Lyons MD Work Phone: [facility] 08-02-2013 pneumococcal polysaccharide vaccine, 23 valent John Lyons MD Work Phone: [facility] Work Phone: Payers Date Payer Category Payer Medicaid [facility] MEDIC AID [facility] MEDICAID [id number] 2022-Present [phone] [address] [place] [address] Medicaid [id number] 2022 Medicaid [id number] 2018 Unknown [id number] Social History Date Type Detail Facility Start: [facility] Start: 08-26-2023 Tobacco use and exposure Forme r smokeless tobacco user [facility] Start: 08-28-2023 Alcohol intake Current drinke r of alcohol (finding) [facility] Start: 08-28-2023 History of Social function [facility] Start: 08-28-2023 Tobacco use panel [facility] National Score (1-10 0), lower number is lower risk 89 [facility] Start: 08-26-2023 Tobacco Comment vaped [facility] Start: 1975 Sex Assigned At Not on file [facility] Progress note 08-28-2023 Note Date & Type Note Facility 08-28-2023 Note HNO ID: [id number] Author: John Lyons MD Service: ? Author Type: Physician Type: Progress Notes Filed: 08/28/2023 12:53 PM Note Text: HISTORY AND PHYSICAL Michael Mcneill 1975 REFERRING PHYSICIAN: No ref. provider found CHIEF COMPLAINT: Consult (Right side groin pain) HPI: The patient is a 47 year old male presents with right inguinal hernia noted for 5 years. She notes increasing symptoms recently He has just got out of [facility] in the past two days. He states that he is presently off meth, ETOH, and marijuana for the past three months. He does admit to occasional marijuana now. He also states that he has hepatitis B, undergoing treatment. He denies gastrointestinal and/or urinary obstructive symptoms. He denies previous hernias. He also presents for consideration for screening for colon cancer via colonoscopy The patient denies blood in stools, denies abdominal pain, and denies changes in bowel habits. The patient notes no colon cancer in immediate family. The patient has not had previous colonoscopy. PAST MEDICAL HISTORY Diagnosis Date Anxiety state Asthma Substance abuse (HCC) PAST SURGICAL HISTORY Procedure Laterality Date OPEN RX ANKLE DISLOCATN+FIXATN 2003 ORIF left ankle Current Outpatient Medications Medication Sig OLANZapine (ZYPREXA) 5 mg tablet Take 5 mg by mouth daily at bedtime. peg 3350-Electrolytes (GOLYTELY) 236-22.74-6.74 -5.86 gram suspension Take 4,000 mL by mouth one time only for 1 dose. Refer to printed prep instructions from your provider. No current facility-administered medications for this visit. ALLERGIES: Seasonal Allergies PERSONAL HISTORY: Social History Tobacco Use Smoking status: Never Smokeless tobacco: Former Tobacco comments: vaped Vaping Use Vaping Use: current everyday user Substance Use Topics Alcohol use: Yes Drug use: Yes Types: Marijuana, Amphetamines FAMILY HISTORY Problem Relation Age of Onset Colon Cancer Paternal Uncle The review of systems data was entered by the nurse and reviewed by nd Nursing Notes: Katherine Biggs RN 08/28/2023 10:43 AM Signed REVIEW OF SYSTEMS: General: The patient denies fatigue, NOTES weight loss, denies weight gain, denies feeling hot, and denies feelings of cold. Eyes: The patient denies glaucoma, denies eye injury/surgery, does not wear glasses or contacts. Ear/Nose/Throat: The patient NOTES allergies, denies hayfever, denies ear infections, and denies bloody noses. Cardiovascular: The patient denies chest pain, denies heart disease, denies high blood pressure,denies cardiac stent, denies prior heart attack, denies irregular heart beat, denies high cholesterol, denies poor circulation, denies heart failure, other cardiac issues, denies claudication, denies cold feet, denies peripheral arterial stent. Respiratory: The patient denies tuberculosis, denies pneumonia, NOTES frequent cough, denies pulmonary embolism, denies shortness of breath, and denies coughing up blood. Gastrointestinal: The patient NOTES difficulty swallowing, denies acid reflux, denies ulcers, denies vomiting, NOTES jaundice/hepatitis, denies gallbladder problems, denies black or tarry stools, denies hemorrhoids, denies bleeding from rectum, denies diverticulitis, denies constipation, denies diarrhea, denies loss of stool control, and NOTES hernias. Kidney/Bladder: The patient denies kidney stones, denies urine infections, and denies bloody urine. Skin: The patient denies a history of skin cancer, denies bleeding/changing moles, and NOTES a history of skin rash. Neurologic: The patient denies a history of epilepsy/convulsions, NOTES headaches, denies head/spinal injuries, and denies stroke/TIA. Psychiatric: The patient denies psychiatric medications, NOTES depression, and denies voices, NOTES substance abuse. Endocrine: The patient denies thyroid disorders, denies diabetes, and NOTES hormonal problems. Hematologic: The patient denies a history of bruising, denies bleeding, and NOTES anemia, denies blood clots. Infections: The patient denies a history of measles and mumps, denies rheumatic fever, and denies sexually transmitted diseases. Musculoskeletal: The patient denies back pain/injury, denies back problems, denies sciatica, NOTES knee/foot trouble, denies arthritis, or denies gout. When was patient's last Mammogram screening? N/A Last Colonoscopy: NONE Katherine Biggs RN PHYSICAL EXAMINATION: General: The patient is 47 year old male, well nourished, well hydrated in no acute distress. The patient is oriented to time, place, and person. He has a slight speech impediment VITALS: Blood pressure 130/84, pulse 109, temperature 36.6 ?C (97.9 ?F), height 170.2 cm (5' 7 ), weight 63.9 kg (140 lb 12.8 oz), SpO2 96 %. Body mass index is 22.05 kg/m?. Head - Normocephalic. EOM intact with sclera clear and no icterus noted. (more content not included)... [facility] History of Present illness Narrative 08-28-2023 John Lyons MD - 08/28/2023 11:03 AM EST Note Date & Type Note Facility 08-28-2023 History of Presen t illness Narrative HISTORY AND PHYSICAL Michael Mcneill 1975 REFERRING PHYSICIAN: No ref. provider found CHIEF COMPLAINT: Consult (Right side groin pain) HPI: The patient is a 47 year old male presents with right inguinal hernia noted for 5 years. She notes increasing symptoms recently He has just got out of [facility] in the past two days. He states that he is presently off meth, ETOH, and marijuana for the past three months. He does admit to occasional marijuana now. He also states that he has hepatitis B, undergoing treatment. He denies gastrointestinal and/or urinary obstructive symptoms. He denies previous hernias. He also presents for consideration for screening for colon cancer via colonoscopy The patient denies blood in stools, denies abdominal pain, and denies changes in bowel habits. The patient notes no colon cancer in immediate family. The patient has not had previous colonoscopy. PAST MEDICAL HISTORY Diagnosis Date Anxiety state Asthma Substance abuse (HCC) PAST SURGICAL HISTORY Procedure Laterality Date OPEN RX ANKLE DISLOCATN+FIXATN 2003 ORIF left ankle Current Outpatient Medications Medication Sig OLANZapine (ZYPREXA) 5 mg tablet Take 5 mg by mouth daily at bedtime. peg 3350-Electrolytes (GOLYTELY) 236-22.74-6.74 -5.86 gram suspension Take 4,000 mL by mouth one time only for 1 dose. Refer to printed prep instructions from your provider. No current facility-administered medications for this visit. ALLERGIES: Seasonal Allergies PERSONAL HISTORY: Social History Tobacco Use Smoking status: Never Smokeless tobacco: Former Tobacco comments: vaped Vaping Use Vaping Use: current everyday user Substance Use Topics Alcohol use: Yes Drug use: Yes Types: Marijuana, Amphetamines FAMILY HISTORY Problem Relation Age of Onset Colon Cancer Paternal Uncle The review of systems data was entered by the nurse and reviewed by me Nursing Notes: Katherine Biggs RN 08/28/2023 10:43 AM Signed REVIEW OF SYSTEMS: General: The patient denies fatigue, NOTES weight loss, denies weight gain, denies feeling hot, and denies feelings of cold. Eyes: The patient denies glaucoma, denies eye injury/surgery, does not wear glasses or contacts. Ear/Nose/Throat: The patient NOTES allergies, denies hayfever, denies ear infections, and denies bloody noses. Cardiovascular: The patient denies chest pain, denies heart disease, denies high blood pressure,denies cardiac stent, denies prior heart attack, denies irregular heart beat, denies high cholesterol, denies poor circulation, denies heart failure, other cardiac issues, denies claudication, denies cold feet, denies peripheral arterial stent. Respiratory: The patient denies tuberculosis, denies pneumonia, NOTES frequent cough, denies pulmonary embolism, denies shortness of breath, and denies coughing up blood. Gastrointestinal: The patient NOTES difficulty swallowing, denies acid reflux, denies ulcers, denies vomiting, NOTES jaundice/hepatitis, denies gallbladder problems, denies black or tarry stools, denies hemorrhoids, denies bleeding from rectum, denies diverticulitis, denies constipation, denies diarrhea, denies loss of stool control, and NOTES hernias. Kidney/Bladder: The patient denies kidney stones, denies urine infections, and denies bloody urine. Skin: The patient denies a history of skin cancer, denies bleeding/changing moles, and NOTES a history of skin rash. Neurologic: The patient denies a history of epilepsy/convulsions, NOTES headaches, denies head/spinal injuries, and denies stroke/TIA. Psychiatric: The patient denies psychiatric medications, NOTES depression, and denies voices, NOTES substance abuse. Endocrine: The patient denies thyroid disorders, denies diabetes, and NOTES hormonal problems. Hematologic: The patient denies a history of bruising, denies bleeding, and NOTES anemia, denies blood clots. Infections: The patient denies a history of measles and mumps, denies rheumatic fever, and denies sexually transmitted diseases. Musculoskeletal: The patient denies back pain/injury, denies back problems, denies sciatica, NOTES knee/foot trouble, denies arthritis, or denies gout. When was patient's last Mammogram screening? N/A Last Colonoscopy: NONE Katherine Biggs RN PHYSICAL EXAMINATION: General: The patient is 47 year old male, well nourished, well hydrated in no acute distress. The patient is oriented to time, place, and person. He has a slight speech impediment VITALS: Blood pressure 130/84, pulse 109, temperature 36.6 C (97.9 F), height 170.2 cm (5' 7 ), weight 63.9 kg (140 lb 12.8 oz), SpO2 96 %. Body mass index is 22.05 kg/m . Head - Normocephalic. EOM intact with sclera clear and no icterus noted. Mouth with mucus membranes moist. Neck - supple with no jugular venous distention noted. Trachea is midline. Lungs - clear to auscultation. Normal breath sounds. No rales/rhonchi/wheezing noted. No labored breathing noted, such as retractions. No cough heard. Heart - normal S1 and S2 auscultated. No rubs/clicks/murmurs noted. Regular rate. Abdomen - soft and benign. Normal bowel sounds, no abdominal bruits noted Genitalia: normal male, testicles in normal anatomical position and no masses noted, right inguinal hernia - reducible, no left inguinal hernia noted Extremities - no calf tenderness noted. No pitting edema noted. Skin - normal skin integrity. Neurological - gait normal, no focal deficits noted. Psych - calm and appropriate Assessment IMPRESSION: right inguinal hernia - reducible, screening for colon cancer PLAN: I have discussed the above with the patient. I have offered colonoscopy, possible biopsies I have explained the procedure to the patient. I have counseled the patient as to the risks of the procedure, including but not limited to: infection, bleeding, injury to any intrabdominal organs such as liver/spleen, perforation of the GI tract, inability to complete the procedure, complications of anesthesia, etc. - the patient understands. The patient wishes to proceed. I have answered all questions to the patient s satisfaction and the patient has no further questions. My clinic staff has educated the patient as to the colon cleansing regimen and I have prescribed Golytely for the colon cleansing solution. The patient will be scheduled for the procedure at [facility] I have offered right inguinal hernia repair. I have explained the procedure to the patient. I have explained the risks/benefits of the procedure. I have discussed the risks with the patient, including but not limited to: infection, bleeding, injury to any blood vessels/nerves, injury to any bowel/bladder, injury to the spermatic cord, injury to the testicle, scar tissue, chronic groin pain, recurrence of hernia, seroma/swelling, wound infections, cosmetic deformity, etc. - the patient understands The patient wishes to proceed. I have answered all questions to the patient s satisfaction and the patient has no further questions. I have confirmed and edited as necessary, the PFSH and ROS obtained by others. . Diagnoses: (K40.90) Right inguinal hernia (Z12.11) Screening for colon cancer I spent a total of 48 minutes on the date of the service which included preparing to see the patient with review of any pertinent laboratory studies/radiological imaging/medical records from other medical facilities, [id number] patient care, obtaining oral medical history from the patient in this encounter, performing a medically appropriate examination, counseling and educating the patient/family/caregiver, and ordering and/or scheduling of medications/tests/procedures, and completing appropriate medical documentation. John Lyons MD documented in this encounter [facility] Instructions 08-28-2023 Patient Instructions Note Date & Type Note Facility 08-28-2023 Instructions John Lyons MD - 08/28/2023 10:53 AM EST Images from the original note were not included. Bowel Preparation Instructions for: Golytely, Nulytely, Trilyte or Colyte (polyethylene glycol 3350 and electrolytes) IF YOU DO NOT FOLLOW THESE DIRECTIONS, YOUR COLONOSCOPY WILL BE CANCELLED. Blas Instructions: Your bowel must be empty so that your doctor can clearly view your colon. Follow all of the instructions in this handout EXACTLY as they are written. Do NOT eat any solid food the ENTIRE day before your colonoscopy. Drink only clear liquids. Buy your bowel preparation at least 5 days before your colonoscopy. TRANSPORTATION on the Day of Your Exam A responsible person MUST be present with you at Check In prior to your colonoscopy and REMAIN in the endoscopy area until you are discharged. You are NOT ALLOWED to drive, take a taxi or bus, or leave the Endoscopy Center ALONE. If you do not have a responsible otr driver (family member or friend) with you to take you home, your exam cannot be done with sedation and will be cancelled. Please bring a list of all of your current medications, including any Over-the Counter medications with you. Medications If you take insulin, diabetic medications or blood thinners such as Coumadin (warfarin), Plavix (clopidogrel), Ticlid (ticlopidine hydrochloride), Agrylin (anagrelide), Xarelto (Rivaroxaban), Pradaxa (Dabigatran), Eliquis (Apixaban), and Effient (Prasugrel). You MUST call the doctors who orders those medicines for instructions on altering the dosage before your colonoscopy. All other medications should be taken the day of the exam with a sip of water including ASPIRIN. Five (5) Days Before Your Colonoscopy Do NOT take medicines that stop diarrhea - such as Imodium, Kaopectate, or Pepto Bismol. Do NOT take fiber supplements - such as Metamucil, Citrucel, or Perdiem. Do NOT take products that contain iron - such as multi-vitamins (the label lists what is in the products). Do NOT take Vitamin E. Buy the prescription bowel preparation solution at your local pharmacy or drugstore pharmacy. 09/2019 Bowel Preparation Instructions for: Golytely, Nulytely, Trilyte or Colyte (polyethylene glycol 3350 and electrolytes) Three (3) Days Before Your Colonoscopy Do NOT eat high-fiber foods - such as popcorn, beans, seeds (flax, sunflower, quinoa), multigrain bread, nuts, salad/vegetables, or fresh and dried fruit. One (1) Day Before Your Colonoscopy Only drink clear liquids the ENTIRE DAY before your colonoscopy. Do NOT eat any solid foods. Drink at least 8 ounces of clear liquids every hour after waking up. The clear liquids you can drink include: Clear Liquid (NO RED LIQUIDS) DO NOT DRINK Gatorade, Pedialyte or Powerade Clear broth or bouillon Coffee or tea (no milk or non-dairy creamer) Carbonated and non-carbonated soft drinks Arslan-Aid or other fruit flavored drinks Strained fruit juices (no pulp) Jell-O, popsicles, hard candy Water Alcohol Milk or non-dairy creamers Noodles or vegetables in soup Juice with pulp Liquid you cannot see through Do not use tobacco/vaping products The bowel preparation solution will be consumed in two parts. Mix the solution the evening before your colonoscopy and refrigerate before drinking. You may add the flavor pack that came with the bowel preparation. Do NOT add ice, sugar or any other flavorings to the solution. Part 1 At 6:00 PM - Evening before your colonoscopy Drink an 8-oz glass of bowel preparation every 10 minutes for a total of 8 glasses. You may continue to drink clear liquids until midnight. Part 2 On the day of your colonoscopy you may drink clear liquids up to (three) 3 hours before your procedure. 4 1/2 hours before your colonoscopy Drink an 8-oz glass of bowel preparation every 10 minutes for a total of 8 glasses. Fifteen (15) minutes later, drink an 8-oz glass of clear liquids every 15 minutes for a total of 2 glasses. You may continue to drink clear liquids up to (three) 3 hours before your exam. 2 09/2019 documented in this encounter [facility] Nurse Note 08-28-2023 Katherine Biggs RN - 08/28/2023 10:40 AM EST Note Date & Type Note Facility 08-28-2023 Nurse Note REVIEW OF SYSTEMS: General: The patient denies fatigue, NOTES weight loss, denies weight gain, denies feeling hot, and denies feelings of cold. Eyes: The patient denies glaucoma, denies eye injury/surgery, does not wear glasses or contacts. Ear/Nose/Throat: The patient NOTES allergies, denies hayfever, denies ear infections, and denies bloody noses. Cardiovascular: The patient denies chest pain, denies heart disease, denies high blood pressure,denies cardiac stent, denies prior heart attack, denies irregular heart beat, denies high cholesterol, denies poor circulation, denies heart failure, other cardiac issues, denies claudication, denies cold feet, denies peripheral arterial stent. Respiratory: The patient denies tuberculosis, denies pneumonia, NOTES frequent cough, denies pulmonary embolism, denies shortness of breath, and denies coughing up blood. Gastrointestinal: The patient NOTES difficulty swallowing, denies acid reflux, denies ulcers, denies vomiting, NOTES jaundice/hepatitis, denies gallbladder problems, denies black or tarry stools, denies hemorrhoids, denies bleeding from rectum, denies diverticulitis, denies constipation, denies diarrhea, denies loss of stool control, and NOTES hernias. Kidney/Bladder: The patient denies kidney stones, denies urine infections, and denies bloody urine. Skin: The patient denies a history of skin cancer, denies bleeding/changing moles, and NOTES a history of skin rash. Neurologic: The patient denies a history of epilepsy/convulsions, NOTES headaches, denies head/spinal injuries, and denies stroke/TIA. Psychiatric: The patient denies psychiatric medications, NOTES depression, and denies voices, NOTES substance abuse. Endocrine: The patient denies thyroid disorders, denies diabetes, and NOTES hormonal problems. Hematologic: The patient denies a history of bruising, denies bleeding, and NOTES anemia, denies blood clots. Infections: The patient denies a history of measles and mumps, denies rheumatic fever, and denies sexually transmitted diseases. Musculoskeletal: The patient denies back pain/injury, denies back problems, denies sciatica, NOTES knee/foot trouble, denies arthritis, or denies gout. When was patient's last Mammogram screening? N/A Last Colonoscopy: NONE Katherine Biggs RN documented in this encounter [facility] Progress note 08-26-2023 Note Date & Type Note Facility 08-26-2023 Note HNO ID: [id number] Author: Brandon Hurley APRN.[employer] Service: ? Author Type: Nurse Practitioner Type: Progress Notes Filed: 08/26/2023 11:44 AM Note Text: Subjective HPI HPI Michael Mcneill is a 47 year old male who presents today for CC of hernia. This started months. Seen in ER, told to see specialist. Minimal pain. No pain today. Denies abdominal pain and trouble urinating. .Patient presents with: Mass: Right side above testicle for some years pain on and off No past medical history on file. No past surgical history on file. ALLERGIES Seasonal Allergies MEDICATIONS OLANZapine (ZYPREXA) 5 mg tablet Take 5 mg by mouth daily at bedtime. No family history on file. Social History Tobacco Use Smoking status: Never Smokeless tobacco: Former Tobacco comments: vaped ROS Objective Blood pressure 133/82, pulse 80, temperature 36.8 ?C (98.3 ?F), resp. rate 22, weight 68 kg (150 lb), SpO2 99 %. Physical Exam Constitutional: General: He is not in acute distress. Appearance: Normal appearance. He is not toxic-appearing. Cardiovascular: Rate and Rhythm: Normal rate and regular rhythm. Heart sounds: Normal heart sounds. Pulmonary: Effort: Pulmonary effort is normal. Breath sounds: Normal breath sounds. Abdominal: General: Bowel sounds are normal. Palpations: Abdomen is soft. Tenderness: There is no abdominal tenderness. Skin: General: Skin is warm and dry. ASSESSMENT/PLAN: 1. Unilateral inguinal hernia without obstruction or gangrene, recurrence not specified - ICD9: 550.90, ICD10: K40.90 Referred to gen surgery If s/s severe go to Er. - CONSULT TO GENERAL SURGERY Brandon Hurley APRN.[facility] Evaluation note Note Date & Type Note Facility documented in this encounter [facility] Reason for referral (narrative) Outpatient Procedure (Routine) - Authorized Note Date & Type Note Facility Referral ID Status Reason Start Date Expiration Date Visits Requested Visits Authorized [id number] Authorized Auto-Generat ed Referral 3 08/28/2024 1 1 [facility] Summary Purpose Family History No Family History Records FoundNo Family History Records FoundNo Family History Records Found Advance Directives No Advanced Directives Records FoundNo Advanced Directives Records FoundNo Advanced Directives Records Found Hospital Course Note EMERGENCY DEPARTMENT DISCHAR GE SUMMARY PATIENT NAME:MICHAEL MCNEILL MRN: ([facility])-[id number] AGE: 43 Years SEX: Male PHONE:[phone] DOS: 08/04/2019 00:26:00 : 1975 ATTENDING PHYSICIAN:Theodore WEI, Amy Beavers PCP: Physician, No PCP CHIEF COMPLAINT: wheezing/congestion Allergies No Known Medication Allergies Problems Active Depression Anxiety Asthma DISCHARGE DIAGNOSIS: DISCHARGE INSTRUCTIONS: [facility] List (Custom); Asthma, Acute Bronchospasm ED PHYSICIAN DOCUMENTATION: History of Present Illness The patient is a 43-year-old male with a history of anxiety/depression asthma who presents for evaluation of shortness of breath. He notes increased wheezing as well as dyspnea over the last several days. He has a cough that is productive of clear sputum. He denied any focal chest discomfort. He is also been feeling more congested and having rhinorrhea lately. He reports a diffuse, throbbing type headache. He has had headaches like this before in the past. He has not (more content not included)... Additional Source Comments (unrecognized sect ion and content) No Status Records FoundNo Status Records FoundNo Status Records Found INFORMATION SOURCE (unrecogn ized section and content) DATE CREATED AUTHOR AUTHOR'S BAYRON ATION 08/04/2019 [facility] DATE CREATED AUTHOR AUTHOR'S ORGANTRINIDAD ATION 09/09/2023 [facility] Source Comments (unrecognize d section and content) In the event this informatio n is protected by the Federal Confidentiality of Alcohol and Drug Abuse Patient Records regulations: The Federal rules restrict any use of the information to criminally investigate or prosecute any alcohol or drug abuse patient.[facility] Reason for Visit (unrecogniz ed section and content) FOR RECORDS PERTAINING TO PATIENTS WHO ARE OR HAVE BEEN ENROLLED IN A CHEMICAL DEPENDENCY/SUBSTANCEABUSE PROGRAM, SOME INFORMATION MAY BE OMITTED. This clinical summary was aggregated from multiple sources. Caution should be exercised in using it in the provision of clinical care. This summary normalizes information from multiple sources, and as a consequence, information in this document may materially change the coding, format and clinical context of patient data. In addition, data may be omitted in some cases. CLINICAL DECISIONS SHOULD BE BASED ON THE PRIMARY CLINICAL RECORDS. [facility]. provides no warranty or guarantee of the accuracy or completeness of information in this document.
[2023-10-15 11:51] VITALS: BP 157/91
== END 2023-10-15 11:52 | disposition home or self-care (01) ==
LOC: ED 11:45
PROVIDERS: Emergency Provider Emergency Medicine; Visit Provider Emergency Medicine
DX: Z76.0 Encounter for issue of repeat prescription (principal); J43.9 Emphysema, unspecified; Z59.01 Sheltered homelessness; I10 Essential (primary) hypertension; K21.9 Gastro-esophageal reflux disease without esophagitis; Z87.891 Personal history of nicotine dependence; Z86.73 Personal history of transient ischemic attack (TIA), and cerebral infarction without residual deficits
CPT/HCPCS: 99282

== ENCOUNTER 2023-10-29 04:23 | Inpatient (IN) | payer MEDICAID, SELFPAY ==
[2023-10-29] VITALS (8 sets, daily range): BP systolic 103–130; BP diastolic 58–89; PULSE 78–100; RESP 16–22; TEMP 35.8–37; O2SAT 94–100; BMI 21.9; BMI 21.5
--- NOTE | 2023-10-29 04:33 | EDS_ITS ---
HPI History of Present Illness Chief Complaint: Substance Abuse Detail of Chief Complaint: Alcohol abuse and dependency Informant: patient Onset/Context/Timing Onset: Month(s) Context: Sudden Onset Timing: Intermittent Quality: Per HPI narrative Location: Not applicable about Current Severity: Moderate Maximum Severity: Moderate Worsened by: Nothing specific Relieved by: Nothing Associated Symptoms Associated Symptoms: Negative for vomiting*, diarrhea*, fever*, rash*, seizure, tremor, palpatations, change in mental status, sex for drugs*, no, suicidal ideation or homicidal ideation Narrative Narrative: Patient is a 47-year-old male with history of alcoholism who presents for detox. He states he was in a detox program over a year ago. Several months of abstinence. He began to drink slowly. Has been increasing over the past several weeks. He is increased significantly over the past week. There has been a day or so that he has not had something to drink. He is not experience any withdrawal symptoms. He is presently drinking 324 ounce bottles/cans of beer and also drinking all liquor/whiskey. The consumption of liquor is not normal for him. Patient denies smoking. He does smoke marijuana. He denies any other drug use. Patient is on disability because of cognitive impairment. He is presently unemployed. Patient denies headache, visual, ocular auditory symptoms. Patient denies cardiac or respiratory symptoms. Patient denies bruising easily. He is not on anticoagulant or antithrombotic. He does have an albuterol inhaler for his asthma. Prior similar symptoms: Yes Recent Illness/Hospitalization: No PFSH [facility] Medical History (Updated 10/29/23 @ 05:[address] Tae Walsh MD) Alcohol abuse Ankle fracture, left Anxiety Anxiety and depression Asthma with COPD Bipolar disorder Bulla of lung Depression GERD (gastroesophageal reflux disease) Hypertension Inguinal hernia bilateral, non-recurrent Methamphetamine abuse Past history of chewing tobacco use Stroke/cerebrovascular accident Home Medications albuterol sulfate 90 mcg/actuation aerosol inhaler (Ventolin HFA) 1 - 2 puff inhalation Q4H PRN PRN Wheezing #1 device 09/09/22 [Rx Last Taken Unknown] albuterol sulfate 90 mcg/actuation aerosol inhaler (ProAir HFA) 2 puff inhalation Q6H PRN shortness of breath or wheezing #8.5 grams 12/02/22 [Rx Last Taken 12/23/22] Allergy/AdvReac Type Severity Reaction Status Date / Time No Known Allergies Allergy Verified 10/29/23 04:24 Family History Father Alcoholism CAD (coronary artery disease) Heart disease Hypertension Mother Alcoholism Seizures Surgical History History of ankle surgery Social History housing: homeless Smoking Status: Never smoker Smokeless tobacco user: chewing tobacco how long ago did patient quit smoking: Notes no cig tob use, prior chew only but no current, ongoing cannabis use. alcohol intake: current details: 5-6 beers daily, occasionally whiskey. substance use type: marijuana, opiates and methamphetamine ROS ROS ED Constitutional Constitutional ED: Denies chills, fever(s), subjective or sweats Eyes Eyes: Denies blurry vision or change in vision ENT ENT ED: Denies ear pain, rhinorrhea or sore throat Cardiovascular Cardiovascular: Denies chest pain or palpitations Respiratory/Chest Respiratory/Chest: Denies cough, dyspnea or dyspnea on exertion Gastrointestinal Gastrointestinal: Denies abdominal pain, diarrhea, melena, nausea or vomiting Genitourinary Genitourinary ED: Reports other Musculoskeletal Musculoskeletal: Denies arthralgias or myalgias Integumentary Denies rash Neurologic Neurologic: Denies headache(s) or paresthesias Endocrine Endocrinology: Denies cold intolerance or heat intolerance Hematologic/Lymphatic Hematologic/Lymphatic: Denies easy bleeding or easy bruising EXAM Physical Exam Const Vital Signs: 10/29/23 04:23 Temperature 97.9 F Temperature Source Temporal Pulse Rate 94 Respiratory Rate 18 Blood Pressure 124/58 H Blood Pressure Mean 80 Pulse Ox 98 Oxygen Delivery Method Room Air Positive well nourished and well developed Constitutional Narrative: Patient does stutter. He does have problems with fluency of his speech. General Appearance ED: well developed and NAD; Negative for pallor HEENT Reports moist mucous membranes atraumatic and trauma Eyes PERRL and EOMs intact bilaterally General Eye ED: Negative for pale conjunctiva or scleral icterus Neck no lymphadenopathy, supple and no JVD Lymph Lymphatic: no lymphadenopathy noted and lymphadenopathy Chest Wall inspection of chest normal and palpation of chest normal Resp normal respiratory effort and clear to auscultation bilaterally Cardio regular rate, regular rhythm, S1 normal heart sound, S2 normal heart sound and no murmurs GI soft to palpation, non-tender, non-distended and no masses Auscultation: hypoactive bowel sounds Back/Spine no CVA tenderness Back/Spine Narrative: Inspection of the back is normal. There is no tenderness. Extremity Extremity Narrative: There is no clubbing or acrocyanosis. General Extremety ED: Negative for edema or tenderness General Extremity: Negative for edema Neuro oriented x3 Aidan Coma Scale: document GCS findings Spontaneous Obeys Commands Oriented 15 Sensorium / Orientation: alert Speech: speech normal Psych mental status grossly normal and thought process normal Skin General Skin Exam: Negative for jaundice or pallor Lesions: no lesions Rashes: no rashes MDM MDM MDM Narrative Medical decision making narrative: Patient presents for detox from alcohol. Patient is concerned if he attempts to decrease on his own he will go through withdrawal, which she has experienced in the past. Admission blood work was ordered. The hospitalist will follow those results. Plan is to admit to [facility]. Dr. Mcintyre who is on this evening has admitted Mr. Mcneill twice Blood work was obtained to rule out anemia, thrombocytopenia electrolyte abnormality, diabetes and renal dysfunction. Lab Data Attestation: I reviewed the patient's lab results. Lab results narrative: CBC reveals mild anemia. Electrolyte panel is unremarkable. Alcohol is trace positive. Talk screen is pending. Management Discussion w/another healthcare provider: Hospitalist Discharge Plan Triage Chief Complaint: Substance Abuse ED Provider: Tae Walsh Dx/Rx/DC Orders Clinical Impression: Alcohol dependence, Alcoholism, Alcohol abuse, Desire for detoxification Primary Care Provider: Care Physician,No Primary Disposition Disposition: Acute Care Hospital [facility]
--- NOTE | 2023-10-29 04:37 | HP.PCM.HOS_ITS ---
HPI - General General Date of Admission: 10/29/23 Date of Service: 10/29/23 Chief Complaint: EtOH abuse, requesting detoxification. HPI Narrative The patient is a 47 y/o M w/ PMHx: Hx CVA, Hx Chew tobacco use, Polysubstance abuse (cannabis, opiates, methampetamine), EtOH abuse, COPD/Asthma w/ known bulla, GERD, HTN, HLD who presents to the [facility] ED on 04/26/23 with acute EtOH withdrawal for detoxification treatment with history of unfortunately starting to drink, initially weekly only but it again became daily, heavier over the last couple days with hard liquor, prompting ED evaluation. He notes the last drink he had was whiskey prior to decision to present for treatment. Workup in the ED included T97.9, heart rate 94, BP 124/58, respiratory rate 18, 98% on room air, pending CBC, CMP, ethyl alcohol level, urine drug screen upon evaluation. [facility] Medical History (Updated 10/29/23 @ 04:[address] Alisha Mcintyre MD) Alcohol abuse Ankle fracture, left Anxiety Anxiety and depression Asthma with COPD Bipolar disorder Bulla of lung Depression GERD (gastroesophageal reflux disease) Hypertension Inguinal hernia bilateral, non-recurrent Methamphetamine abuse Past history of chewing tobacco use Stroke/cerebrovascular accident Home Medications albuterol sulfate 90 mcg/actuation aerosol inhaler (Ventolin HFA) 1 - 2 puff inhalation Q4H PRN PRN Wheezing #1 device 09/09/22 [Rx Last Taken Unknown] albuterol sulfate 90 mcg/actuation aerosol inhaler (ProAir HFA) 2 puff inhalation Q6H PRN shortness of breath or wheezing #8.5 grams 12/02/22 [Rx Last Taken 12/23/22] Allergy/AdvReac Type Severity Reaction Status Date / Time No Known Allergies Allergy Verified 10/29/23 04:24 Family History Father Alcoholism CAD (coronary artery disease) Heart disease Hypertension Mother Alcoholism Seizures Surgical History History of ankle surgery Social History housing: homeless Smoking Status: Never smoker Smokeless tobacco user: chewing tobacco how long ago did patient quit smoking: Notes no cig tob use, prior chew only but no current, ongoing cannabis use. alcohol intake: current details: 5-6 beers daily, occasionally whiskey. substance use type: marijuana, opiates and methamphetamine ROS ROS Narrative Admission Review of Systems: CONSTITUTIONAL: No weight loss, fever, chills, + weakness or fatigue. HEENT: Eyes: No visual loss, blurred vision, double vision or yellow sclerae. Ears, Nose, Throat: No hearing loss, sneezing, congestion, runny nose or sore throat. SKIN: No rash or itching, lesions, wounds. CARDIOVASCULAR: No chest pain, chest pressure or chest discomfort, palpitations, edema, orthopnea, syncopal events. RESPIRATORY: + Occasional wheezing and nonproductive cough. No marked sputum, hemoptysis. GASTROINTESTINAL: No anorexia, nausea, vomiting or diarrhea, abdominal pain, melena, BRBPR. GENITOURINARY: No dysuria, frequency, urgency or retention. NEUROLOGICAL: + Speech changes/aphasia chronically s/p prior CVA. No headache, dizziness, syncope, paralysis, ataxia, numbness or tingling in the extremities, focal weakness, change in bowel or bladder control, seizure. MUSCULOSKELETAL: + muscle, back pain, joint pain or stiffness. HEMATOLOGIC: + anemia, easy bleeding/bruising. LYMPHATICS: No enlarged nodes. No history of splenectomy. PSYCHIATRIC: + history of depression or anxiety. ENDOCRINOLOGIC: No reports of sweating, cold or heat intolerance. No polyuria or polydipsia. ALLERGIES: + history of asthma, rhinitis. Vital Signs Vital Signs Vital Signs: 10/29/23 04:23 Temperature 97.9 F Temperature Source Temporal Pulse Rate 94 Respiratory Rate 18 Blood Pressure 124/58 H Blood Pressure Mean 80 Pulse Ox 98 Oxygen Delivery Method Room Air Weight Weight: 135 lb 12.876 oz Body Mass Index (BMI) 21.9 Physical Exam Narrative Physical Examination: General: Awake, alert, oriented x 3 and cooperative, seated upright in ED bed, chronic aphasia present. Skin: Normal color, normal turgor, no icterus, no cyanosis except psoriatic skin change to hands and occasional abrasion/staged ecchymoses. HEENT: AT/NC, EOMI, PERRLA, mildly dry MM, no carotid bruits or JVD noted. Lungs: Mildly diminished, > bases, no rales, wheezing or marked rhonchi. Heart: Currently regular rhythm; no gallop, rub audible. Abdomen: Soft, thin habitus, NTTP, ND, mildly hyperactive BS, + HM. Extremities: No cyanosis, clubbing, or edema. Neurological: Patient awake, alert, oriented as noted, cognitive function baseline intact with chronic impairment s/p prior CVA; pupils equally reactive to light and accommodation, cranial nerves grossly normal, moving all 4 ex tremities, no focal deficits, strength mildly globally decreased, chronic aphasia. Psychiatric: Affect appears mildly fatigued, history of underlying anxiety and depression. Assessment & Plan Assessment/Plan (1) Desire for detoxification: PLAN: Plan The patient is a 47 y/o M w/ PMHx: Hx CVA, Hx Chew tobacco use, Polysubstance abuse (cannabis, opiates, methampetamine), EtOH abuse, COPD/Asthma w/ known bulla, GERD, HTN, HLD who presents to the [facility] ED on 04/26/23 with acute EtOH withdrawal for detoxification treatment with history of unfortunately starting to drink, initially weekly only but it again became daily, heavier over the last couple days with hard liquor, prompting ED evaluation. #1. Alcohol abuse, recurrent with detoxification request: Will admit to [facility], routine labs obtained in the ED upon presentation and pending. Given interest in sobriety, will initiate and continue on protocol with taper course of Phenobarbital, as needed Catapres, gabapentin, Bentyl, Vistaril, IV fluids, IV antiemetics, Tylenol as needed for pain. Will consult Case management for assistance for transition to next level of rehabilitation care. Mag, phos pending. #2. Polysubstance abuse: History of polysubstance use with cannabis, opiates and methamphetamine. Prior presentation 04/26/2023 with UDS with positive amphetamine/MDMA. UDS pending upon current presentation. 04/26/2023 hepatitis panel with hep BS antibody reactive otherwise nonreactive, hepatitis C antibody preliminarily reactive, HIV nonreactive. Encourage both sobriety and clean status. #3. Asthma/COPD: Not on any chronic regimen, will maintain on ATC budesonide therapy, PRN albuterol, encourage tobacco cessation. #4. Hypertension: Noted prior history, BP low normal range, continue to monitor. #5. Former Chew Tobacco Abuse: Encouraged continued cessation. #6. Anxiety and depression: Not on any regimen, encouraged continued ongoing evaluations with counseling and potentially medications on an outpatient basis if appropriate. #7. Hx prior CVA w/ chronic aphasia: Will continue asa, not on hypertensive regimen or statin therapy, BP currently normal range. #8. Normocytic anemia, chronic component: Admission Hgb pending, prior Hgb 12.8, baseline prior Hgb 11-12. #9. DVT prophylaxis: Low risk for type of admission. Charges/Coding Visit Charges Inpatient E&M: 65514 Init Hosp L2
--- OUTSIDE RECORDS SUMMARY | 2023-10-29 04:51 | XMS RPT_ITS | CCD ---
Author Name Unknown Address [address] [place] [address] Organization [facility] Care Team Providers Care Negative Cleaner Name Role Phone CONSULT, ED PSYCHIATRY TEAM Unavailable Unav PEÑA Phillips Unavailable Unavailable Unavailable Primary Care Provider JOHN Sweet Attending Unavailable Allergies Allergy Classification Reported Allergen(s) Allergy Type Date of Onset Reaction(s) Facility (1 source) Seasonal allergy; Translations: [SEASONAL ALLERGIES] Propensity to adverse reactions (disorder) 3 [facility] Repository Medications Current Medications Medication Drug Class(es) Dates Sig (Normalized) Sig (Original) polyethylene glycol 3350 446936 mg / potassium chloride 2970 mg / sodium bicarbonate 6740 mg / sodium chloride 5860 mg / sodium sulfate 23361 mg powder for oral solution (1 source) [...] 170.2 cm John Lyons MD Work Phone: [facility] 08-28-2023 10:33-0500 Body temperature 97.9 [degF] John Lyons MD Work Phone: [facility] 08-28-2023 10:33-0500 Body weight 63.87 kg John Lyons MD Work Phone: [facility] 08-28-2023 10:33-0500 Diastolic blood pressure 84 mm[Hg] John Lyons MD Work Phone: [facility] 08-28-2023 10:33-0500 Heart rate 109 /min John Lyons MD Work Phone: [facility] 08-28-2023 10:33-0500 SaO2% (BldA) [Mass fraction] 96 % John Lyons MD Work Phone: [facility] 08-28-2023 10:33-0500 Systolic blood pressure 130 mm[Hg] John Lyons MD Work Phone: [facility] Encounters Encounter Date Encounter Type Care Provider Facility Start: 08-28-2023 End: 08-28-2023 ambulatory JOHN LYONS Facility:[facility] Start: 08-28-2023 End: 08-28-2023 Patient encounter procedure John Lyons MD Work Phone: General Surgery Plan of Treatment Date Care Activity Detail Author Start: 11-03-2032 Urine microalbumin profile DTaP,Tdap,Td Vaccine (3 - Td or Tdap) [facility] Start: 06-02-2023 Covid-19 Vaccine () Covid-19 Vaccine () [facility] Start: 06-02-2023 Influenza vaccination Influenza Vaccine (#1) [facility] Start: 10-02-2022 Depression Assessment Depression Assessment [facility] Start: 2020 Cologuard (FIT-DNA) Cologuard (FIT-DNA) [facility] Start: 2020 Colonoscopy Colonoscopy [facility] Start: 2020 Colorectal Cancer Screening Colorectal Cancer Screening [facility] Start: [address] Colonography [facility] Start: 2020 Diabetes Screening Diabetes Screening [facility] Start: 2020 Fecal Occult Blood Fecal Occult Blood [facility] Start: 2020 Sigmoidoscopy Sigmoidoscopy [facility] Start: 2010 Lipid 1996 panel - Serum or Plasma Lipid Screening [facility] Start: 1993 Hepatitis C Screening Hepatitis C Screening [facility] Start: 1993 HIV Screening HIV Screening [facility] Start: 1975 Hepatitis B Vaccine (1 of 3 - 3-dose series) Hepatitis B Vaccine (1 of 3 - 3-dose series) [facility] End: 08-28-2024 Screening colonoscopy COLONOSCOPY SCREENING Endoscopy Routine Screening for colon cancer 1 Occurrences starting 08/28/2023 until 08/28/2024 [facility] Work Phone: Immunizations Immunization Date Immunization Notes Care Provider Fa cili 09-23-2020 influenza, seasonal, injectable, preservative free John Lyons MD Work Phone: [facility] Work Phone: 09-23-2020 influenza virus vacc ine, unspecified formulation John Lyons MD Work Phone: [facility] 02-25-2017 tetanus toxoid, redu kathryn diphtheria toxoid, and acellular pertussis vaccine, adsorbed John Lyons MD Work Phone: [facility] 08-02-2013 pneumococcal polysaccharide vaccine, 23 valent John Lyons MD Work Phone: [facility] Work Phone: Payers Date Payer Category Payer Medicaid [facility] MEDIC A[facility] MEDICAID [id number] 2022-Present [phone] [address] [place] [address] Medicaid [id number] 2022 Medicaid [id number] 2018 Unknown [id number] Social History Date Type Detail Facility Start: [facility] Start: 08-26-2023 Tobacco use and exposure Forme r smokeless tobacco user [facility] Start: 08-28-2023 Alcohol intake Current drinke r of alcohol (finding) [facility] Start: 08-28-2023 History of Social function [facility] Start: 08-28-2023 Tobacco use panel [facility] National Score (1-10 0), lower number is lower risk 89 [facility] Start: 08-26-2023 Tobacco Comment vaped [facility] Start: 1975 Sex Assigned At Not on file C [facility] Progress note 08-28-2023 Note Date & Type Note Facility 08-28-2023 Note HNO ID: [id number] Author: John Lyons MD Service: ? Author [...] recently He has just got out of prison for drug possession in the past two [...] entered by the nurse and reviewed by hi Nursing Notes: Katherine Biggs RN 08/28/2023 10:43 [...] no icterus noted. (more content not included)... [facility] History of Present illness Narrative 08-28-2023 John [...] recently He has just got out of prison for drug possession in the past two [...] will be scheduled for the procedure at [facility] I have offered right inguinal hernia [...] studies/radiological imaging/medical records from other medical facilities, [id number] patient care, obtaining oral medical history from the patient in this encounter, performing a medically appropriate examination, counseling and educating the patient/family/caregiver, and ordering and/or scheduling of medications/tests/procedures, and completing appropriate medical documentation. John Lyons MD documented in this encounter [facility] Instructions 08-28-2023 Patient Instructions Note Date & [...] If you do not have a responsible flag car driver (family member or friend) with you [...] exam. 2 09/2019 documented in this encounter [facility] Nurse Note 08-28-2023 Katherine Biggs RN - [...] Katherine Biggs RN documented in this encounter [facility] Progress note 08-26-2023 Note Date & Type Note Facility 08-26-2023 Note HNO ID: [id number] Author: Brandon Hulrey APRN.HRIS ADMINISTRATOR Service: ? Author Type: Nurse Practitioner Type: [...] CONSULT TO GENERAL SURGERY Brandon Hurley APRN.TITO [facility] Evaluation note Note Date & Type Note Facility documented in this encounter [facility] Reason for referral (narrative) Outpatient Procedure (Routine) - Authorized Note Date & Type Note Facility Referral ID Status Reason Start Date Expiration Date Visits Requested Visits Authorized [id number] Authorized Auto-Generat ed Referral 3 08/28/2024 1 1 [facility] Summary Purpose Family History No Family History Records FoundNo Family History Records FoundNo Family History Records Found Advance Directives No Advanced Directives Records FoundNo Advanced Directives Records FoundNo Advanced Directives Records Found Hospital Course Note EMERGENCY DEPARTMENT DISCHAR GE SUMMARY PATIENT NAME:MICHAEL MCNEILL MRN: ([facility])-[id number] AGE: 43 Years SEX: Male PHONE:[id number] DOS: 08/04/2019 00:26:00 : 1975 ATTENDING PHYSICIAN:Theodore WEI, Amy Beavers PCP: Physician, No PCP CHIEF COMPLAINT: wheezing/congestion Allergies No Known Medication Allergies Problems Active Depression Anxiety Asthma DISCHARGE DIAGNOSIS: DISCHARGE INSTRUCTIONS: [facility] List (Custom); Asthma, Acute Bronchospasm ED PHYSICIAN [...] DATE CREATED AUTHOR AUTHOR'S BAYRON ATION 08/04/2019 [facility] DATE CREATED AUTHOR AUTHOR'S ORGANTRINIDAD ATION 09/09/2023 [facility] Source Comments (unrecognize d section and content) In the event this informatio n is protected by the Federal Confidentiality of Alcohol and Drug Abuse Patient Records regulations: The Federal rules restrict any use of the information to criminally investigate or prosecute any alcohol or drug abuse patient.[facility] Reason for Visit (unrecogniz ed section and [...] BE BASED ON THE PRIMARY CLINICAL RECORDS. [facility]. provides no warranty or guarantee of the accuracy or completeness of information in this document.
[2023-10-29 04:57] LABS: Absolute Lymphocyte Count 1.38 X10^3/uL (0.83-4.51); Absolute Neutrophil Count 7.4 X10^3/uL (2.0-7.7); Basophil# 0.06 X10^3/uL; Basophil% 0.6 % (0-1); Eosinophil# 0.15 X10^3/uL; Eosinophils% 1.6 % (0-5); Hematocrit 44.1 % (40-54); Hemoglobin 14.5 g/dL (13.0-16.5); Lymphocyte # 1.38 X10^3/ul (0.83-4.51); Lymphocyte % 14.6 % (19-41); Mean Corp Hgb Conc 32.9 g/dL (32-36); Mean Corpuscular Hgb 30.7 pg (27.0-32.0); Mean Corpuscular Volume 93.4 fL (80-94); Mean Platelet Vol. 9.2 fl (6.2-12.0); Monocyte# 0.38 X10^3/uL; NRBC Flagged by Analyzer 0 % (0-5); Neutrophil # 7.44 X10^3/uL (2.7-7.7); Neutrophil % 78.9 % (47-70); Platelet Count 338 K/mm3 (150-450); RBC Distribution Width CV 12.4 % (11.6-14.6); Red Blood Count 4.72 M/mm3 (4.6-6.2); White Blood Count 9.4 K/mm3 (4.4-11.0)
--- OUTSIDE RECORDS SUMMARY | 2023-10-29 05:12 | XMS RPT_ITS | CCD ---
Author Name Unknown Address [address] [place] [address] Organization [facility] Care Team Providers Care Jig Borer Name Role Phone CONSULT, ED PSYCHIATRY TEAM Unavailable Unav PEÑA Phillips Unavailable Unavailable Unavailable Primary Care Provider JOHN Sweet Attending Unavailable Allergies Allergy Classification Reported Allergen(s) Allergy Type Date of Onset Reaction(s) Facility (1 source) Seasonal allergy; Translations: [SEASONAL ALLERGIES] Propensity to adverse reactions (disorder) 3 [facility] Repository Medications Current Medications Medication Drug Class(es) Dates Sig (Normalized) Sig (Original) polyethylene glycol 3350 [id number] mg / potassium chloride 2970 mg / sodium bicarbonate 6740 mg / sodium chloride 5860 mg / sodium sulfate 64200 mg powder for oral solution (1 source) [...] 170.2 cm John Lyons MD Work Phone: [facility] 08-28-2023 10:33-0500 Body temperature 97.9 [degF] John Lyons MD Work Phone: [facility] 08-28-2023 10:33-0500 Body weight 63.87 kg John Lyons MD Work Phone: [facility] 08-28-2023 10:33-0500 Diastolic blood pressure 84 mm[Hg] John Lyons MD Work Phone: [facility] 08-28-2023 10:33-0500 Heart rate 109 /min John Lyons MD Work Phone: [facility] 08-28-2023 10:33-0500 SaO2% (BldA) [Mass fraction] 96 % John Lyons MD Work Phone: [facility] 08-28-2023 10:33-0500 Systolic blood pressure 130 mm[Hg] John Lyons MD Work Phone: [facility] Encounters Encounter Date Encounter Type Care Provider Facility Start: 08-28-2023 End: 08-28-2023 ambulatory JOHN LYONS Facility:[facility] Start: 08-28-2023 End: 08-28-2023 Patient encounter procedure John Lyons MD Work Phone: General Surgery Plan of Treatment Date Care Activity Detail Author Start: 11-03-2032 Urine microalbumin profile DTaP,Tdap,Td Vaccine (3 - Td or Tdap) [facility] Start: 06-02-2023 Covid-19 Vaccine () Covid-19 Vaccine () [facility] Start: 06-02-2023 Influenza vaccination Influenza Vaccine (#1) [facility] Start: 10-02-2022 Depression Assessment Depression Assessment [facility] Start: 2020 Cologuard (FIT-DNA) Cologuard (FIT-DNA) [facility] Start: 2020 Colonoscopy Colonoscopy [facility] Start: 2020 Colorectal Cancer Screening Colorectal Cancer Screening [facility] Start: [address] Colonography [facility] Start: 2020 Diabetes Screening Diabetes Screening [facility] Start: 2020 Fecal Occult Blood Fecal Occult Blood [facility] Start: 2020 Sigmoidoscopy Sigmoidoscopy [facility] Start: 2010 Lipid 1996 panel - Serum or Plasma Lipid Screening [facility] Start: 1993 Hepatitis C Screening Hepatitis C Screening [facility] Start: 1993 HIV Screening HIV Screening [facility] Start: 1975 Hepatitis B Vaccine (1 of 3 - 3-dose series) Hepatitis B Vaccine (1 of 3 - 3-dose series) [facility] End: 08-28-2024 Screening colonoscopy COLONOSCOPY SCREENING Endoscopy Routine Screening for colon cancer 1 Occurrences starting 08/28/2023 until 08/28/2024 [facility] Work Phone: Immunizations Immunization Date Immunization Notes Care Provider Fa cili 09-23-2020 influenza, seasonal, injectable, preservative free John Lyons MD Work Phone: [facility] Work Phone: 09-23-2020 influenza virus vacc ine, unspecified formulation John Lyons MD Work Phone: [facility] 02-25-2017 tetanus toxoid, redu kathryn diphtheria toxoid, and acellular pertussis vaccine, adsorbed John Lyons MD Work Phone: [facility] 08-02-2013 pneumococcal polysaccharide vaccine, 23 valent John Lyons MD Work Phone: [facility] Work Phone: Payers Date Payer Category Payer Medicaid [facility] MED[facility] [id number] 2022-Present [phone] [address] [place] [address] Medicaid [id number] 2022 Medicaid [id number] 2018 Unknown [id number] Social History Date Type Detail Facility Start: [facility]23 [facility] Start: 08-26-2023 Tobacco use and exposure Forme r smokeless tobacco user [facility] Start: 08-28-2023 Alcohol intake Current drinke r of alcohol (finding) [facility] Start: 08-28-2023 History of Social function [facility] Start: 08-28-2023 Tobacco use panel [facility] National Score (1-10 0), lower number is lower risk 89 [facility] Start: 08-26-2023 Tobacco Comment vaped [facility] Start: 1975 Sex Assigned At Not on file C [facility] Progress note 08-28-2023 Note Date & Type Note Facility 08-28-2023 Note HNO ID: [id number] Author: John Lyons MD Service: ? Author [...] recently He has [facility] in the past two [...] entered by the nurse and reviewed by id Nursing Notes: Katherine Biggs RN 08/28/2023 10:43 [...] no icterus noted. (more content not included)... [facility] History of Present illness Narrative 08-28-2023 John [...] recently He has just [facility] for [facility] in the past two [...] will be scheduled for the procedure at [facility] I have offered right inguinal hernia [...] studies/radiological imaging/medical records from other medical facilities, [id number] patient care, obtaining oral medical history from the patient in this encounter, performing a medically appropriate examination, counseling and educating the patient/family/caregiver, and ordering and/or scheduling of medications/tests/procedures, and completing appropriate medical documentation. John Lyons MD documented in this encounter [facility] Instructions 08-28-2023 Patient Instructions Note Date [...] If you do not have a responsible driver trainer (family member or friend) with you to [...] exam. 2 09/2019 documented in this encounter [facility] Nurse Note 08-28-2023 Katherine Biggs RN [...] Katherine Biggs RN documented in this encounter [facility] Progress note 08-26-2023 Note Date & Type Note Facility 08-26-2023 Note HNO ID: [id number] Author: Brandon Hurley APRN.GLAZE SUPERVISOR Service: ? Author Type: Nurse Practitioner Type: [...] CONSULT TO GENERAL SURGERY Brandon Hurley APRN.TITO [facility] Evaluation note Note Date & Type Note Facility documented in this encounter [facility] Reason for referral (narrative) Outpatient Procedure (Routine) - Authorized Note Date & Type Note Facility Referral ID Status Reason Start Date Expiration Date Visits Requested Visits Authorized [id number] Authorized Auto-Generat ed Referral 3 08/28/2024 1 1 [facility] Summary Purpose Family History No Family History Records FoundNo Family History Records FoundNo Family History Records Found Advance Directives No Advanced Directives Records FoundNo Advanced Directives Records FoundNo Advanced Directives Records Found Hospital Course Note EMERGENCY DEPARTMENT DISCHAR GE SUMMARY PATIENT NAME:MICHAEL MCNEILL MRN: ([facility])-[id number] AGE: 43 Years SEX: Male PHONE:[id number] DOS: 08/04/2019 00:26:00 : 1975 ATTENDING PHYSICIAN:Theodore WEI, Amy Beavers PCP: Physician, No PCP CHIEF COMPLAINT: wheezing/congestion Allergies No Known Medication Allergies Problems Active Depression Anxiety Asthma DISCHARGE DIAGNOSIS: DISCHARGE INSTRUCTIONS: [facility] List (Custom); Asthma, Acute Bronchospasm ED [...] DATE CREATED AUTHOR AUTHOR'S BAYRON ATION 08/04/2019 [facility] DATE CREATED AUTHOR AUTHOR'S ORGANTRINIDAD ATION 09/09/2023 [facility] Source Comments (unrecognize d section and content) In the event this informatio n is protected by the Federal Confidentiality of Alcohol and Drug Abuse Patient Records regulations: The Federal rules restrict any use of the information to criminally investigate or prosecute any alcohol or drug abuse patient.[facility] Reason for Visit (unrecogniz ed section [...] BE BASED ON THE PRIMARY CLINICAL RECORDS. [facility]. provides no warranty or guarantee of the accuracy or completeness of information in this document.
[2023-10-29 05:16] LABS: AST(SGOT) 31 U/L (15-37); Alanine Aminotransfer ALT/SGPT 37 U/L (16-61); Albumin, Serum 4.2 g/dL (3.2-5.0); Alkaline Phosphatase 59 U/L (45-117); Anion Gap 6 (5-15); BUN 18 mg/dL (7-18); Calcium,Total 9.8 mg/dL (8.5-10.1); Chloride 100 mmol/L (98-107); Creatinine, Serum 0.86 mg/dL (0.70-1.30); EST Glomerular Filtration Rate 102 mL/min (>60); Est Glom Filt Rate - Afr Amer 123 mL/min (>60); Estimated Creatinine Clearance 92.52 ml/min; Globulin 4.1 g/dL (2.2-4.2); Glucose 82 mg/dL (74-106); Magnesium 2.3 mg/dL (1.6-2.6); Protein, Total 8.3 g/dL (6.4-8.2); Sodium Level 133 mmol/L (136-145)
[2023-10-29 05:43] LABS: Phosphorus 4.9 mg/dL (2.5-4.9)
[2023-10-29 06:14] LABS: Amphetamine Urine VISTA POSITIVE (<1000 ng/mL); Barbiturate Urine VISTA NEGATIVE (< 200 ng/mL); Benzodiazepine Urine VISTA NEGATIVE (< 200 ng/mL); Cocaine Urine VISTA NEGATIVE (< 300 ng/mL); Ecstacy Urine VISTA POSITIVE (< 500 ng/mL); Methadone Urine VISTA NEGATIVE (< 300 ng/mL); PCP Urine VISTA NEGATIVE (< 25 ng/mL); THC Urine VISTA NEGATIVE (< 50 ng/mL); Vista UDS pH Range 6
[2023-10-29] MEDS: Thiamine Hydrochloride 100 MG Tablet PO (08:37)
[2023-10-29] MEDS: Lactated Ringers 1,000 ML 125 ML IV (08:37)
[2023-10-29] MEDS: Folic Acid 1 MG Tablet PO (08:37)
[2023-10-29] MEDS: Aspirin 81 MG TAB.CHEW PO (08:37)
[2023-10-29] MEDS: Phenobarbital 32.4 MG Tablet 97.2000000000000028 MG PO ×2 (08:37→11:56)
--- NOTE | 2023-10-29 09:49 | PN_ITS ---
Subjective Subjective Patient seen and examined. He had no active complaints. Review of systems is otherwise negative. He is being managed for acute alcohol withdrawal. Objective Data Objective Data Vital Signs: Vital Signs Temp Pulse Resp BP Pulse Ox O2 Del Method 98.6 F 92 18 129/89 H 98 Room Air 10/29/23 08:14 10/29/23 08:14 10/29/23 08:14 10/29/23 08:14 10/29/23 08:14 10/29/23 08:41 Oxygen Delivery Method Room Air Weight: 133 lb 6 oz Body Mass Index (BMI) 21.5 Lab / Micro Data 10/29/23 04:46 10/29/23 04:46 Labs: Laboratory Results - last 24 hr 10/29/23 04:46: WBC 9.4, RBC 4.72, Hgb 14.5, Hct 44.1, MCV 93.4, MCH 30.7, MCHC 32.9, RDW Std Deviation 43.0, RDW Coeff of Bridger 12.4, Plt Count 338, MPV 9.2, Immature Gran % (Auto) 0.300, Neut % (Auto) 78.9 H, Lymph % (Auto) 14.6 L, [place] % (Auto) 4.0, Eos % (Auto) 1.6, Baso % (Auto) 0.6, Absolute Neuts (auto) 7.4, Absolute Lymphs (auto) 1.38, Nucleated RBC % 0, Sodium 133 L, Potassium 4.0, Chloride 100, Carbon Dioxide 27.0, Anion Gap 6, BUN 18, Creatinine 0.86, Estim Creat Clear Calc 92.52, Est GFR (MDRD) Af Amer 123, Est GFR (MDRD) Non-Af 102, BUN/Creatinine Ratio 21.0 H, Glucose 82, Calcium 9.8, Magnesium 2.3, Total Bilirubin 0.60, AST 31, ALT 37, Alkaline Phosphatase 59, Total Protein 8.3 H, Albumin 4.2, Globulin 4.1, Albumin/Globulin Ratio 1.0, Ethyl Alcohol 5.0 10/29/23 05:10: Urine Opiates Screen NEGATIVE, Urine Methadone Screen NEGATIVE, Ur Barbiturates Screen NEGATIVE, Ur Phencyclidine Scrn NEGATIVE, Ur Amphetamines Screen POSITIVE H, MDMA (Ecstasy) Screen POSITIVE H, U Benzodiazepines Scrn NEGATIVE, Urine Cocaine Screen NEGATIVE, U Cannabinoids Screen NEGATIVE, Ur Drug Screen Comment 10/29/23 05:28: Phosphorus 4.9 Physical Exam Const alert, oriented x3 and no apparent distress General Appearance: cooperative and well developed HEENT normocephalic, head/scalp atraumatic, moist oral mucous membranes and oropharynx normal Eyes PERRL and EOMs intact bilaterally Neck no lymphadenopathy, supple and no JVD Lymph Lymphatic: no lymphadenopathy noted and no lymphedema noted Resp normal respiratory effort, normal air movement and clear to auscultation bilaterally Cardio regular rate, regular rhythm, S1 normal heart sound, S2 normal heart sound and no murmurs GI normal to inspection, nondistended, normoactive bowel sounds, soft to palpation, non-tender and non-distended Extremity normal capillary refill, no clubbing, cyanosis or edema and no calf tenderness General Extremity: no tenderness to palpation of joints or extremities Skin General Skin Exam: no breakdown Neuro CN's II-XII intact bilaterally, no focal motor deficits and no sensory deficits noted Motor Exam: strength 5/5 throughout Psych Mood & Affect: anxious Assessment & Plan Assessment/Plan (1) Alcohol dependence: (2) Desire for detoxification: PLAN: Plan #Acute alcohol withdrawal * Patient on alcohol drawl protocol with phenobarbital. * on thiamine, folic acid and multivite * monitor CIWA score * adjunctive meds for symptomatic relief * #?Hepatitis C infection * Patient's hepatitis C antibody was reactive back in April 2023. Patient is very anxious about this as he is wondering why he has not been treated for this. No hepatitis C antigen test available. * Patient counseled will refer him to gastroenterology on outpatient basis. Check hepatitis C RNA viral load to confirm if he does have hepatitis C infection. * HIV and HEP B tests negative #History of polysubstance abuse: Uses cannabis, opiates and methamphetamine. Counseled to quit. #History of CVA: On aspirin. Not on any other medication. #Asthma and COPD: Not in exacerbation. Breathing treatments bronchodilators. DVT prophylaxis; SCDs Charges/Coding Visit Charges Inpatient E&M: 12028 Subs Hosp L2
[2023-10-29] MEDS: hydrOXYzine PAM 25 MG Capsule 50 MG PO ×2 (10:44→20:07)
[2023-10-29] MEDS: 0.9% Saline Lock 10 ML Syringe IV ×2 (11:56→16:08)
[2023-10-29] MEDS: Phenobarbital 32.4 MG Tablet 64.7999999999999972 MG PO ×2 (15:54→20:08)
[2023-10-30] MEDS: Phenobarbital 32.4 MG Tablet 64.7999999999999972 MG PO ×6 (00:58→19:51)
[2023-10-30 04:01] VITALS: BP 111/78; PULSE 80; RESP 16; TEMP 36.7; O2SAT 96
--- NOTE | 2023-10-30 08:23 | PN.HOSP_ITS ---
Reason for Visit Reason for Visit: Diagnoses Alcohol dependence, uncomplicated (10/29/23) Subjective Subjective No events overnight. Very concerned about his hepatitis studies. Objective Data Objective Data Vital Signs: Vital Signs Temp Pulse Resp BP Pulse Ox O2 Del Method 36.7 C 80 16 111/78 96 Room Air 10/30/23 04:01 10/30/23 04:01 10/30/23 04:01 10/30/23 04:01 10/30/23 04:01 10/30/23 04:01 Oxygen Delivery Method Room Air Weight: 60.498 kg Body Mass Index (BMI) 21.5 Intake & Output: Intake and Output for Last 24 Hours 10/28/23 10/29/23 10/30/23 23:59 23:59 23:59 Intake Total 1913.58 / 1913.58 Balance 1913.58 / 1913.58 Lab / Micro Data 10/29/23 04:46 10/29/23 04:46 Physical Exam Const Constitutional Narrative: Anxious. Afebrile. Nontoxic. Assessment & Plan Assessment/Plan (1) Alcohol dependence: PLAN: Plan Acute alcohol withdrawal * Patient on alcohol drawl protocol with phenobarbital. * on thiamine, folic acid and multivitamin * monitor CIWA score * adjunctive meds for symptomatic relief Chronic conditions: * Hepatitis C infection: Patient's hepatitis C antibody was reactive back in April 2023. No hepatitis C antigen test available. Unclear if patient has active hepatitis C or not. His viral studies are still pending at this time. Advised patient that he will need to follow-up with primary care doctor in regards to following up on those final results when those to become available. Asked why he did not have that followed up when he was here in April he was evasive in regards to an answer. Did review with him and that his HIV studies were negative at that time and his hepatitis B antigen was positive but his surface antigen was negative so likely has had a history of hepatitis B exposure. * History of polysubstance abuse: Uses cannabis, opiates and methamphetamine. Counseled to quit. Complicates long-term recovery. * History of CVA: On aspirin. Not on any other medication. * Asthma and COPD: Not in exacerbation. Breathing treatments bronchodilators. DVT prophylaxis; SCDs Greater than 35 minutes of which greater than 50% of time was counseled patient about his hepatitis studies and acknowledging that they are incomplete. He was very concerned about it being in his system that he may be having an active infection needing medication. Reassurance was provided to the patient that he does not necessarily have hepatitis C though he certainly has been exposed to it. Patient required several reminders about this in the course of this conversation. Is unclear if he is quite grasp that at this point in time but will can review with him tomorrow when he is evaluated. Charges/Coding Visit Charges Inpatient E&M: 76070 Subs Hosp L2
[2023-10-30] MEDS: Thiamine Hydrochloride 100 MG Tablet PO (08:28)
[2023-10-30] MEDS: Aspirin 81 MG TAB.CHEW PO (08:28)
[2023-10-30] MEDS: Folic Acid 1 MG Tablet PO (08:28)
[2023-10-30] MEDS: Multivitamins,Ther W-Minerals Tablet 1 TABLET PO (08:28)
[2023-10-30 10:00] VITALS: BP 132/82; PULSE 88; RESP 16; TEMP 36.6; O2SAT 96
[2023-10-30 16:00] VITALS: BP 118/80; PULSE 79; RESP 16; TEMP 36.7; O2SAT 100
--- NOTE | 2023-10-30 17:00 | CASEMGMT ---
Social work - [facility] screening Met with patient, introducing the self and social work role. Patient agreeable to complete social determinants of health screening. Patient triggered screening for food and transportation, though when speaking this writer editor denies that he has any trouble with food. Patient admits to homelessness for the last three years and over the last couple of months has been staying at the [facility] when it's open. Patient reports a couple of days ago was able to enter the penitentiary. Patient reports chronic homelessness for last three years and denies having any reliable friends or family as a support system. Patient reports he is on disability related to learning disability. Reports a history of depression anxiety but denies any other mental illness. Reports has been working with Анна, a homeless navigator mental health case manager at [facility]. Patient is currently admitted for detoxification via the ramp program. Patient reports substance of choices alcohol, and sometimes uses speed. Patient does report to have a learning disability, but reports is able to read and write. This writer editor did provide patient [facility] card and transportation resources. Plan: patient reports he is able to return for [facility], and that was able to get a hold of the penitentiary today to let them know patient was in the hospital. Patient reports is also considering aftercare for substance use issues and is working with an addiction therapist. Plan will be per arrangements made by addiction therapist via [facility]. -BEBETO Hoang, INDUSTRIAL TRACTOR DRIVER
[2023-10-30 19:46] VITALS: BP 114/70; PULSE 85; RESP 16; TEMP 36.9; O2SAT 96
[2023-10-31] MEDS: Phenobarbital 32.4 MG Tablet 64.7999999999999972 MG PO ×3 (00:14→08:41)
[2023-10-31 03:27] VITALS: BP 109/74; PULSE 83; RESP 16; TEMP 36.6
--- NOTE | 2023-10-31 07:31 | PN.HOSP_ITS ---
Reason for Visit Reason for Visit: Diagnoses Alcohol dependence, uncomplicated (10/29/23) Subjective Subjective No events overnight. Objective Data Objective Data Vital Signs: Vital Signs Temp Pulse Resp BP Pulse Ox O2 Del Method 36.6 C 83 16 109/74 96 Room Air 10/31/23 03:27 10/31/23 03:27 10/31/23 03:27 10/31/23 03:27 10/30/23 19:46 10/31/23 03:27 Oxygen Delivery Method Room Air Weight: 60.498 kg Body Mass Index (BMI) 21.5 Intake & Output: Intake and Output for Last 24 Hours 10/29/23 10/30/23 10/31/23 23:59 23:59 23:59 Intake Total 1914.58 / 1914.58 700 / 700 1100 / 1100 Balance 1914.58 / 1914.58 700 / 700 1100 / 1100 Lab / Micro Data 10/29/23 04:46 10/29/23 04:46 Physical Exam Const alert and no apparent distress Constitutional Narrative: lying in bed. non-toxic. Psych affect normal Assessment & Plan Assessment/Plan (1) Alcohol dependence: PLAN: Plan Acute alcohol withdrawal * Patient treated with phenobarbital. * on thiamine, folic acid and multivitamin * monitor CIWA score * pt to follow up with the counseling center. Chronic conditions: * Hepatitis C infection: Patient's hepatitis C antibody was reactive back in April 2023. No hepatitis C antigen test available. Unclear if patient has active hepatitis C or not. His viral studies are still pending at this time. Advised patient that he will need to follow-up with primary care doctor in regards to following up on those final results when those to become available. Asked why he did not have that followed up when he was here in April he was evasive in regards to an answer. Did review with him and that his HIV studies were negative at that time and his hepatitis B antigen was positive but his surface antigen was negative so likely has had a history of hepatitis B exposure. * History of polysubstance abuse: Uses cannabis, opiates and methamphetamine. Counseled to quit. Complicates long-term recovery. * History of CVA: On aspirin. Not on any other medication. * Asthma and COPD: Not in exacerbation. Breathing treatments bronchodilators. DVT prophylaxis; SCDs
[2023-10-31 07:52] VITALS: O2SAT 96
[2023-10-31] MEDS: Multivitamins,Ther W-Minerals Tablet 1 TABLET PO (08:42)
[2023-10-31] MEDS: Folic Acid 1 MG Tablet PO (08:43)
[2023-10-31] MEDS: Thiamine Hydrochloride 100 MG Tablet PO (08:43)
[2023-10-31] MEDS: Aspirin 81 MG TAB.CHEW PO (08:43)
[2023-10-31 09:19] VITALS: BP 110/89; PULSE 88; RESP 18; TEMP 36.8; O2SAT 100
--- NOTE | 2023-10-31 09:44 | ADDICTION ---
clinician met with client on 10/30/23 to discuss discharge plan. client reported he will return to [facility] and follow up with [facility] for [facility] and AoD services. clinician briefly met with client on 10/31/23 to follow up; client will follow the plan as noted above.
--- NOTE | 2023-10-31 10:15 | DS.PCM_ITS ---
Providers Date of Admission: 10/29/23 Primary Care Physician: Gayathri Primary Care Phys Reason For Visit: ETOH ABUSE, DETOX Diagnosis Discharge Diagnosis (1) Alcohol dependence: Status: Acute Code(s): F10.20 - Alcohol dependence, uncomplicated Plan Acute alcohol withdrawal * Patient treated with phenobarbital. * on thiamine, folic acid and multivitamin * monitor CIWA score * pt to follow up with the counseling center. Chronic conditions: * Hepatitis C infection: Patient's hepatitis C antibody was reactive back in April 2023. No hepatitis C antigen test available. Unclear if patient has active hepatitis C or not. His viral studies are still pending at this time. Advised patient that he will need to follow-up with primary care doctor in regards to following up on those final results when those to become available. Asked why he did not have that followed up when he was here in April he was evasive in regards to an answer. Did review with him and that his HIV studies were negative at that time and his hepatitis B antigen was positive but his surface antigen was negative so likely has had a history of hepatitis B expos ure. * History of polysubstance abuse: Uses cannabis, opiates and methamphetamine. Counseled to quit. Complicates long-term recovery. * History of CVA: On aspirin. Not on any other medication. * Asthma and COPD: Not in exacerbation. Breathing treatments bronchodilators. DVT prophylaxis; SCDs Medications at Discharge Home Medications albuterol sulfate 90 mcg/actuation aerosol inhaler (Ventolin HFA) 1 - 2 puff inhalation Q4H PRN PRN Wheezing #1 device 09/09/22 albuterol sulfate 90 mcg/actuation aerosol inhaler (ProAir HFA) 2 puff inhalation Q6H PRN shortness of breath or wheezing #8.5 grams 12/02/22 multivitamin (Daily Multi-Vitamin tablet) 1 tab PO DAILY #30 tabs 10/31/23 Hospital Course Operations None Procedures None Weight / BMI Weight Weight: 60.498 kg Body Mass Index (BMI) 21.5 ABG / Lab / Microbiology Data 10/29/23 04:46 10/29/23 04:46 D/C Instructions Discharge Diet: No restrictions Meaningful Use Info Meaningful Use Diagnoses (Choose all that apply): None applicable Discharge Plan Admission Admit Date/Time: 10/29/23 04:39 Primary Reason for Your Visit: alcohol withdrawal. Attending Provider: Graham Tolbert Primary Care Provider: Cassie Pompa,No Primary Consulting Providers: Alisha Mcintyre; Amparo Nguyen Instructions Additional Instructions / Restrictions: Follow-up with the counseling center. Follow-up with the primary care provider. I you did have a viral panel for hepatitis C to see if you do have active hepatitis C. You certainly have been exposed to hepatitis C in the past but it is unclear if you have an active infection or not. Discharge Orders/Prescriptions Prescriptions: New multivitamin [Daily Multi-Vitamin] Tablet 1 tab PO DAILY Qty: 30 0RF Continued albuterol sulfate [Ventolin HFA] 90 mcg/actuation HFA aerosol inhaler 1 - 2 puff inhalation Q4H PRN PRN (Reason: Wheezing) Qty: 1 0RF albuterol sulfate [ProAir HFA] 90 mcg/actuation HFA aerosol inhaler 2 puff inhalation Q6H PRN (Reason: shortness of breath or wheezing) Qty: 8.5 0RF Referrals / Follow Up: Care Physician,No Primary [Primary Care Provider] - Disposition Disposition (needs filled in before D/C Order can be placed): Home, Self Care Charges/Coding Visit Charges Inpatient E&M: 15309 Disch Hosp
--- NOTE | 2023-10-31 10:28 | PHA.DC.MR.R ---
Pharmacy [place] Med Reconciliation Pharmacy Service has performed discharge medication reconciliation for this patient. The patient's discharge medication list was reviewed for discrepancies and discrepancies were resolved. Medications at Discharge Home Medications albuterol sulfate 90 mcg/actuation aerosol inhaler (Ventolin HFA) 1 - 2 puff inhalation Q4H PRN PRN Wheezing #1 device 09/09/22 albuterol sulfate 90 mcg/actuation aerosol inhaler (ProAir HFA) 2 puff inhalation Q6H PRN shortness of breath or wheezing #8.5 grams 12/02/22 multivitamin (Daily Multi-Vitamin tablet) 1 tab PO DAILY #30 tabs 10/31/23
--- NOTE | 2023-10-31 10:46 | CASEMGMT ---
Social Work Pt is being discharged. As per pt's RN, pt has a court time of 2pm today. SW spoke w/pt, he states he has transportation to get there. SW inquired if pt knows for certain he can go back to [employer] today as well. No further social service needs anticipated. BEBETO Nicholson
[2023-10-31 20:09] LABS: HCV Quant. RNA PCR 42400 IU/mL (.); HCV log 10 4.627 (.)
== END 2023-10-31 10:56 | disposition home or self-care (01) | DRG 773 ==
LOC: ED 04:53 → MS3 05:10
PROVIDERS: Student in an Organized Health Care Education/Training Program; Admitting Provider Family Medicine; Emergency Provider Emergency Medicine
DX: F10.239 Alcohol dependence with withdrawal, unspecified (principal); F11.10 Opioid abuse, uncomplicated; E78.5 Hyperlipidemia, unspecified; J44.9 Chronic obstructive pulmonary disease, unspecified; F15.10 Other stimulant abuse, uncomplicated; I10 Essential (primary) hypertension; I69.320 Aphasia following cerebral infarction; F12.90 Cannabis use, unspecified, uncomplicated; Z87.891 Personal history of nicotine dependence; Y90.0 Blood alcohol level of less than 20 mg/100 ml; Z79.82 Long term (current) use of aspirin
CPT/HCPCS: 80053; 80307; 80320; 83735; 84100; 85025; 87522; 99283; J7120; 90686; A4216; G0480

== ENCOUNTER 2024-06-02 09:56 | Emergency (ER) | payer MEDICAID, SELFPAY ==
[2024-06-02 09:57] VITALS: BP 138/92; PULSE 95; RESP 16; TEMP 36.1; O2SAT 95; BMI 23.2
--- NOTE | 2024-06-02 10:47 | EX.ED.DYSGE1 ---
HPI History of Present Illness Chief Complaint: Rash Informant: patient Narrative Narrative: 48-year-old male presenting to the emergency room with bilateral arm rash. Patient states that about 3 days ago he awoke in [place] at a homeless senior care and he had itchy bumps over the posterior aspect of the bilateral forearms. He does not notice it anywhere else. He states the itching is gone away but the rash persists. He thinks that it could be sun related as he states the sun felt really different like none he is ever felt. He denies any fevers. No new exposures. He denies any pus draining from the lesions. No fevers chills sweats. He denies any IV drug use currently. [facility] Medical History Ankle fracture, left Bipolar disorder Depression Anxiety Past history of chewing tobacco use Asthma with COPD Anxiety and depression Inguinal hernia bilateral, non-recurrent Hypertension Stroke/cerebrovascular accident Alcohol abuse Methamphetamine abuse Bulla of lung GERD (gastroesophageal reflux disease) Home Medications ?Medication ?Instructions ?Recorded ?Last Taken ?Type albuterol sulfate 90 mcg/actuation 1 - 2 puff inhalation Q4H PRN PRN 09/09/22 Unknown Rx aerosol inhaler (Ventolin HFA) Wheezing #1 device albuterol sulfate 90 mcg/actuation 2 puff inhalation Q6H PRN 12/02/22 12/23/22 Rx aerosol inhaler (ProAir HFA) shortness of breath or wheezing #8.5 grams multivitamin (Daily Multi-Vitamin 1 tab PO DAILY #30 tabs 10/31/23 Unknown Rx tablet) Allergy/AdvReac Type Severity Reaction Status Date / Time No Known Allergies Allergy Verified 06/02/24 09:57 Family History Father Alcoholism CAD (coronary artery disease) Heart disease Hypertension Mother Alcoholism Seizures Surgical History History of ankle surgery Social History housing: homeless Smoking Status: Never smoker Smokeless tobacco user: chewing tobacco how long ago did patient quit smoking: Notes no cig tob use, prior chew only but no current, ongoing cannabis use. alcohol intake: current details: 5-6 beers daily, occasionally whiskey. substance use type: marijuana, opiates and methamphetamine ROS ROS ED Constitutional Constitutional ED: Denies chills, fever(s), subjective, sweats or weight loss Eyes Eyes: Denies change in vision or diplopia ENT ENT ED: Denies ear pain, rhinorrhea or sore throat Cardiovascular Cardiovascular: Denies chest pain, orthopnea, palpitations or racing heartbeat Respiratory/Chest Respiratory/Chest: Denies cough, dyspnea or orthopnea Gastrointestinal Gastrointestinal: Denies abdominal pain, diarrhea, nausea or vomiting Genitourinary Genitourinary ED: Denies dysuria, hematuria or urinary frequency Musculoskeletal Musculoskeletal: Denies arthralgias, back pain, myalgias or neck pain Integumentary Reports rash; Denies abscess Neurologic Neurologic: Denies headache(s) or weakness Psychiatric Psychiatric: Denies anxiety, depression, suicidal ideation or suicidal thoughts Endocrine Endocrinology: Denies polydipsia, polyphagia or polyuria Allergic/Immunologic Allergic/Immunologic ED: Denies mouth swelling, tongue swelling or urticaria EXAM Physical Exam Const Vital Signs: 06/02/24 09:57 Temperature 97.0 F L Temperature Source Temporal Pulse Rate 95 Respiratory Rate 16 Blood Pressure 138/92 H Blood Pressure Mean 107 Pulse Ox 95 Oxygen Delivery Method Room Air Positive well nourished and well developed General Appearance ED: well developed HEENT Reports normocephalic, head/scalp atraumatic and moist mucous membranes Eyes PERRL and EOMs intact bilaterally Neck no lymphadenopathy, supple and no JVD Resp normal respiratory effort and clear to auscultation bilaterally Cardio regular rate, regular rhythm and no murmurs GI normal to inspection, nondistended, normoactive bowel sounds and non-tender Palpation: soft Back/Spine no CVA tenderness and normal ROM Extremity Extremity Narrative: See skin exam General Extremety ED: Negative for edema or tenderness General Extremity: Negative for edema Neuro oriented x3 and CN's II-XII intact bilaterally Sensorium / Orientation: alert Motor Exam: strength 5/5 throughout Psych mental status grossly normal Mood & Affect: Negative for depressed or tearful Skin Skin Narrative: There are discrete papular lesions over the posterior aspect of the bilateral forearms. Each lesion is 1 to 2 mm in diameter. There is not appear to be a pustular component. There is no erythema of the skin in between the lesions. Some lesions appear to be excoriated. Extending from elbow to wrist. I do not appreciate the lesions on the trunk face abdomen or lower extremities. There is no weeping of the lesions. MDM MDM MDM Narrative Medical decision making narrative: Differential diagnosis includes but not limited to mite and insect bites, folliculitis, contact dermatitis, cellulitis Will place the patient on Bactrim and have him use a topical hydrocortisone cream. I would recommend primary care follow-up if possible however he is not established and due to social constraints more likely he would need to return to the emergency department for repeat examination if not improving. I have asked nursing to obtain a photo to place in the patient's chart. Patient is also requesting a refill of his albuterol inhaler History & Record Review Discussion w/independent historian: Patient Discharge Plan Triage Chief Complaint: Rash ED Provider: Maximilian Bernstein Dx/Rx/DC Orders Clinical Impression: Folliculitis, Medication refill Instructions: ED Folliculitis Prescriptions: No Action albuterol sulfate [Ventolin HFA] 90 mcg/actuation HFA aerosol inhaler 1 - 2 puff inhalation Q4H PRN PRN (Reason: Wheezing) Qty: 1 0RF albuterol sulfate [ProAir HFA] 90 mcg/actuation HFA aerosol inhaler 2 puff inhalation Q6H PRN (Reason: shortness of breath or wheezing) Qty: 8.5 0RF multivitamin [Daily Multi-Vitamin] Tablet 1 tab PO DAILY Qty: 30 0RF Primary Care Provider: Care Physician,No Primary Referrals: Care Physician,No Primary [Primary Care Provider] - Print Language: Macedonian Disposition Disposition: Home, Self Care
== END 2024-06-02 11:41 | disposition home or self-care (01) ==
PROVIDERS: Emergency Provider Emergency Medicine; Visit Provider Emergency Medicine
DX: L73.9 Follicular disorder, unspecified (principal); J43.9 Emphysema, unspecified; Z76.0 Encounter for issue of repeat prescription; I10 Essential (primary) hypertension; Z59.00 Homelessness unspecified; Z87.891 Personal history of nicotine dependence; Z86.73 Personal history of transient ischemic attack (TIA), and cerebral infarction without residual deficits
CPT/HCPCS: 99282

== ENCOUNTER 2024-06-03 05:17 | Emergency (ER) | payer MEDICAID, SELFPAY ==
[2024-06-03 05:18] VITALS: BP 135/86; PULSE 69; RESP 16; TEMP 36.3; O2SAT 99; BMI 21.7
--- NOTE | 2024-06-03 06:20 | EDS_ITS ---
HPI History of Present Illness Chief Complaint: Substance Abuse Informant: patient Narrative Narrative: Patient is a 48-year-old male with past medical history of bipolar disorder anxiety and alcohol abuse. He states that he has been sober for few months but over the last 4 days has been drinking 2 beers a day. He states that he was concerned that he may need admitted for detoxification as he knows that there is medical problems that can occur through alcohol withdrawal. He states his last drink was approximately 24 hours ago. He denies any homicidal or suicidal ideation. He reports feeling shaky and nauseous. He was unsure if this would warrant admission and therefore comes in for evaluation [facility] Medical History Ankle fracture, left Bipolar disorder Depression Anxiety Past history of chewing tobacco use Asthma with COPD Anxiety and depression Inguinal hernia bilateral, non-recurrent Hypertension Stroke/cerebrovascular accident Alcohol abuse Methamphetamine abuse Bulla of lung GERD (gastroesophageal reflux disease) Home Medications ?Medication ?Instructions ?Recorded ?Last Taken ?Type albuterol sulfate 90 mcg/actuation 1 - 2 puff inhalation Q4H PRN PRN 09/09/22 Unknown Rx aerosol inhaler (Ventolin HFA) Wheezing #1 device albuterol sulfate 90 mcg/actuation 2 puff inhalation Q6H PRN 12/02/22 12/23/22 Rx aerosol inhaler (ProAir HFA) shortness of breath or wheezing #8.5 grams albuterol sulfate 90 mcg/actuation 2 puff inhalation Q4H PRN PRN 06/02/24 Unknown Rx aerosol inhaler (Ventolin HFA) Wheezing ##1 sulfamethoxazole 800 1 tab PO BID #14 TABLETS 06/02/24 Unknown Rx mg-trimethoprim 160 mg tablet chlordiazepoxide HCl 25 mg capsule 25 mg PO 4X/DAY 5 days #20 caps 06/03/24 Unknown Rx ondansetron 4 mg disintegrating 4 mg PO TID PRN nausea and 06/03/24 Unknown Rx tablet vomiting #21 tabs Allergy/AdvReac Type Severity Reaction Status Date / Time No Known Allergies Allergy Verified 06/03/24 05:22 Family History Father Alcoholism CAD (coronary artery disease) Heart disease Hypertension Mother Alcoholism Seizures Surgical History History of ankle surgery Social History housing: homeless Smoking Status: Never smoker Smokeless tobacco user: chewing tobacco how long ago did patient quit smoking: Notes no cig tob use, prior chew only but no current, ongoing cannabis use. alcohol intake: current details: 5-6 beers daily, occasionally whiskey. substance use type: marijuana, opiates and methamphetamine ROS ROS ED Constitutional Constitutional ED: Denies chills or fever(s) Eyes Eyes: Denies blurry vision or change in vision ENT ENT ED: Denies sore throat Cardiovascular Cardiovascular: Reports palpitations; Denies chest pain Respiratory/Chest Respiratory/Chest: Denies cough or dyspnea Gastrointestinal Gastrointestinal: Reports nausea; Denies abdominal pain, diarrhea or vomiting Genitourinary Genitourinary ED: Denies dysuria Musculoskeletal Musculoskeletal: Denies myalgias Integumentary Denies rash Neurologic Neurologic: Reports other Details: Positive tremors ; Denies headache(s) Psychiatric Psychiatric: Reports anxiety; Denies suicidal ideation or suicidal thoughts Hematologic/Lymphatic Hematologic/Lymphatic: Denies easy bleeding or easy bruising EXAM Physical Exam Const Vital Signs: 06/03/24 05:18 Temperature 97.3 F L Temperature Source Oral Pulse Rate 69 Respiratory Rate 16 Blood Pressure 135/86 H Blood Pressure Mean 102 Pulse Ox 99 Oxygen Delivery Method Room Air Positive well nourished and well developed General Appearance ED: well developed; Negative for pallor HEENT Reports moist mucous membranes HEENT Narrative: No tongue or lip swelling no oral lesions no airway edema or compromise No tongue or cheek biting to suggest seizure Eyes PERRL and EOMs intact bilaterally General Eye ED: Negative for scleral icterus Neck supple Resp normal respiratory effort and clear to auscultation bilaterally Cardio regular rate and regular rhythm GI normal to inspection, nondistended, normoactive bowel sounds, non-tender, non- distended and no masses GI Narrative: No voluntary guarding or rigidity or pulsatile mass Auscultation: normoactive bowel sounds Palpation: soft Extremity normal to inspection Neuro oriented x3, CN's II-XII intact bilaterally and no sensory deficits noted Sensorium / Orientation: alert Motor Exam: strength 5/5 throughout Psych Psych Narrative: Patient has a nervous/anxious affect without homicidal or suicidal ideation Mood & Affect: anxious Skin no rashes or lesions noted General Skin Exam: Negative for jaundice or pallor MDM MDM MDM Narrative Medical decision making narrative: Patient presented to the ER with stable vitals. He reported a history of alcohol abuse and states recently over the last 4 days he has been drinking 2 beers a day. He does have mild risk for withdrawal based on his history but the volume of alcohol at 2 beers a day would not place him at higher risk for DTs. Moreover he states has been roughly 24 hours since his last alcoholic drink and his CIWA score at this time is only 8 to which puts him at low risk for severe withdrawal or delirium tremens. Therefore do not feel there is need for admission or workup. The patient will be started on Librium in order to prevent progression of withdrawal symptoms but as he is not homicidal or suicidal and does not require psychiatric evaluation and there is no need for admission for detox based on his low CIWA score he is otherwise safe for discharge History & Record Review Discussion w/independent historian: Patient Discharge Plan Triage Chief Complaint: Substance Abuse ED Provider: Andrew Henning Dx/Rx/DC Orders Clinical Impression: Alcohol use disorder, Bipolar disorder, Anxiety, GERD (gastroesophageal reflux disease) Instructions: ED Withdrawal Alcohol, ED Alcohol Abuse Prescriptions: New ondansetron 4 mg tablet,disintegrating 4 mg PO TID PRN (Reason: nausea and vomiting) Qty: 21 0RF chlordiazepoxide HCl 25 mg capsule 25 mg PO 4X/DAY 5 Days Qty: 20 0RF No Action albuterol sulfate [Ventolin HFA] 90 mcg/actuation HFA aerosol inhaler 1 - 2 puff inhalation Q4H PRN PRN (Reason: Wheezing) Qty: 1 0RF albuterol sulfate [ProAir HFA] 90 mcg/actuation HFA aerosol inhaler 2 puff inhalation Q6H PRN (Reason: shortness of breath or wheezing) Qty: 8.5 0RF sulfamethoxazole-trimethoprim 800-160 mg tablet 1 tab PO BID Qty: 14 0RF albuterol sulfate [Ventolin HFA] 90 mcg/actuation HFA aerosol inhaler 2 puff inhalation Q4H PRN PRN (Reason: Wheezing) Qty: 1 0RF Primary Care Provider: Care Physician,No Primary Referrals: Troy Monroy MD [Med Staff - Active Staff] - Care Physician,No Primary [Primary Care Provider] - Activity Restrictions/Additional Instructions: Please take the Librium to prevent withdrawal symptoms from your history of alcohol use and return to the ER should you have any further concerns or worsening of symptoms Print Language: Barbadian Disposition Disposition: Home, Self Care Discharge Date/Time: 06/03/24 06:31
== END 2024-06-03 06:31 | disposition home or self-care (01) ==
PROVIDERS: Emergency Provider Emergency Medicine; Visit Provider Emergency Medicine
DX: F10.90 Alcohol use, unspecified, uncomplicated (principal); F31.9 Bipolar disorder, unspecified; J43.9 Emphysema, unspecified; I10 Essential (primary) hypertension; K21.9 Gastro-esophageal reflux disease without esophagitis; F41.9 Anxiety disorder, unspecified; Z59.00 Homelessness unspecified; Z79.899 Other long term (current) drug therapy; Z86.73 Personal history of transient ischemic attack (TIA), and cerebral infarction without residual deficits; Z87.891 Personal history of nicotine dependence
CPT/HCPCS: 99282

== ENCOUNTER 2024-08-03 20:10 | Emergency (ER) | payer MEDICAID, SELFPAY ==
[2024-08-03 20:11] VITALS: BP 169/75; PULSE 94; RESP 18; TEMP 36.6; O2SAT 98; BMI 22.4
--- NOTE | 2024-08-03 22:32 | RAD_ITS ---
INDICATION: pain / ? FB EXAMINATION/TECHNIQUE: X-RAY - LEFT XR Foot Min 3 Views COMPARISON: Left ankle x-rays from 07/04/2010. FINDINGS: SOFT TISSUES: Unremarkable. BONES/JOINTS: No fracture or dislocation. No significant degenerative changes. No erosive changes. Stable postsurgical changes in the distal fibula and distal tib-fib syndesmosis. RAD/Foot min 3 Views IMPRESSION: No evidence of a foreign body and no acute osseous abnormality. Electronically Signed: Barber Grace DO at 23:14 EDT ,
[2024-08-03] MEDS: Albuterol Sulfate 8 gm Inhaler (60 puffs) 2 PUFF INHALATION (22:45)
[2024-08-03] MEDS: Acetaminophen 500 MG Tablet 1000 MG PO (22:52)
--- NOTE | 2024-08-04 00:58 | EDS_ITS ---
HPI History of Present Illness Chief Complaint: Lower Extremity Injury Informant: patient Narrative Narrative: Patient is a 48-year-old male with past medical history of bipolar disorder hypertension anxiety and depression. He states he has been out walking and he states that he noticed he has developed blisters to his toes. He states it is now painful to walk secondary to this. He states that he had concern that he may have an infection or bony injury because of his pain and therefore comes in for evaluation [facility] Medical History Ankle fracture, left Bipolar disorder Depression Anxiety Past history of chewing tobacco use Asthma with COPD Anxiety and depression Inguinal hernia bilateral, non-recurrent Hypertension Stroke/cerebrovascular accident Alcohol abuse Methamphetamine abuse Bulla of lung GERD (gastroesophageal reflux disease) Home Medications ?Medication ?Instructions ?Recorded ?Last Taken ?Type NK 08/03/24 Unknown History Allergy/AdvReac Type Severity Reaction Status Date / Time No Known Allergies Allergy Verified 08/03/24 20:11 Family History Father Alcoholism CAD (coronary artery disease) Heart disease Hypertension Mother Alcoholism Seizures Surgical History History of ankle surgery Social History housing: homeless Smoking Status: Never smoker Smokeless tobacco user: chewing tobacco how long ago did patient quit smoking: Notes no cig tob use, prior chew only but no current, ongoing cannabis use. alcohol intake: current details: 5-6 beers daily, occasionally whiskey. substance use type: marijuana, opiates and methamphetamine ROS ROS ED Constitutional Constitutional ED: Denies chills or fever(s) ENT ENT ED: Denies sore throat Cardiovascular Cardiovascular: Denies chest pain Respiratory/Chest Respiratory/Chest: Denies cough or dyspnea Gastrointestinal Gastrointestinal: Denies abdominal pain, diarrhea, nausea or vomiting Genitourinary Genitourinary ED: Denies dysuria Musculoskeletal Musculoskeletal: Reports other Details: Positive foot pain Integumentary Reports other Details: Positive foot blisters ; Denies rash Neurologic Neurologic: Denies headache(s) Psychiatric Psychiatric: Reports anxiety and depression; Denies suicidal ideation or suicidal thoughts Hematologic/Lymphatic Hematologic/Lymphatic: Denies easy bleeding or easy bruising EXAM Physical Exam Const Vital Signs: 08/03/24 20:11 Temperature 98 F Temperature Source Oral Pulse Rate 94 Respiratory Rate 18 Blood Pressure 169/75 H Blood Pressure Mean 106 Pulse Ox 98 Oxygen Delivery Method Room Air Positive well nourished and well developed General Appearance ED: well developed HEENT HEENT Narrative: Normocephalic atraumatic Eyes PERRL and EOMs intact bilaterally General Eye ED: Negative for scleral icterus Neck supple Neck Narrative: No nuchal rigidity or meningeal signs Resp normal respiratory effort and clear to auscultation bilaterally Cardio regular rate and regular rhythm Extremity Extremity Narrative: Bilateral lower extremities are neurovascularly intact. Patient has blister lesions to the plantar aspect of his left and right fourth digit. There is no surrounding erythema or warmth no lymphangitic streaking no vesicular or pustule changes to suggest a secondary infection. No obvious bony deformity or joint effusion. No obvious signs of trauma Neuro oriented x3, CN's II-XII intact bilaterally and no sensory deficits noted Sensorium / Orientation: alert Motor Exam: strength 5/5 throughout Psych Psych Narrative: Patient has a flat affect Skin Skin Narrative: Soft tissue changes/blisters to the fourth digits of the bilateral feet as documented above MDM MDM MDM Narrative Medical decision making narrative: Patient presented to the ER hypertensive but has a past medical history of this. He reported bilateral foot/toe pain after walking for multiple hours. On exam he does have blisters to the fourth digits of his feet but there is no erythema or warmth or streaking or crepitance to suggest secondary infection such as cellulitis or abscess. He reported feeling a pricking sensation and therefore there was concern for potential foreign body so an x-ray was ordered. This revealed no foreign body or bony injury such as fracture or dislocation. He also did not show findings concerning for osteomyelitis. Therefore at this time the patient has pressure blisters to his fourth digits bilaterally but as they are not infected and he does not have ligamentous or tendon injury or signs of bony trauma there is no need for further workup. I did offer the patient incision and drainage of his blisters as well as wrapping of the area with moleskin to help prevent recurrent irritation. Initially the patient was okay with this plan of care but as it was taking the a while to get to the procedure he did not want to wait any longer and decided to be discharged from the hospital History & Record Review Discussion w/independent historian: Patient Radiography Diagnostic Testing: Clinical Impression(s) from Imaging Studies Foot X-Ray 08/03/24 22:32 IMPRESSION: No evidence of a foreign body and no acute osseous abnormality. Electronically Signed: Barber Grace DO at 23:14 EDT Reading Location ID and State: [facility] / [place] Tel , Service support , X-ray of the left foot as interpreted by the emergency medicine physician reveals no acute fracture dislocation joint effusion or foreign body Discharge Plan Triage Chief Complaint: Lower Extremity Injury ED Provider: Andrew Henning Dx/Rx/DC Orders Clinical Impression: Blister of foot without infection, Bipolar disorder, Hypertension, Anxiety and depression Instructions: ED Blister (Adult) Prescriptions: No Action NK Primary Care Provider: Care Physician,No Primary Referrals: Salvador Hall DPM [Med Staff - Active Staff] - Care Physician,No Primary [Primary Care Provider] - Print Language: Turkish Disposition Disposition: Home, Self Care Discharge Date/Time: 08/03/24 23:45
== END 2024-08-03 23:45 | disposition home or self-care (01) ==
PROVIDERS: Emergency Provider Emergency Medicine; Visit Provider Emergency Medicine
DX: S90.424A Blister (nonthermal), right lesser toe(s), initial encounter (principal); J43.9 Emphysema, unspecified; S90.425A Blister (nonthermal), left lesser toe(s), initial encounter; X58.XXXA Exposure to other specified factors, initial encounter; I10 Essential (primary) hypertension; F17.221 Nicotine dependence, chewing tobacco, in remission; Z86.73 Personal history of transient ischemic attack (TIA), and cerebral infarction without residual deficits
CPT/HCPCS: 73630; 99283

== ENCOUNTER 2024-09-07 11:38 | Emergency (ER) | payer MEDICAID, SELFPAY ==
[2024-09-07] VITALS (8 sets, daily range): BP systolic 126–175; BP diastolic 64–135; PULSE 55–78; RESP 16–24; TEMP 36.6–37; O2SAT 90–99; BMI 20.5
--- NOTE | 2024-09-07 11:43 | EDS_ITS ---
HPI History of Present Illness Chief Complaint: Shortness of Breath PFSH PFS Medical History Ankle fracture, left Bipolar disorder Depression Anxiety Past history of chewing tobacco use Asthma with COPD Anxiety and depression Inguinal hernia bilateral, non-recurrent Hypertension Stroke/cerebrovascular accident Alcohol abuse Methamphetamine abuse Bull[place] of lung GERD (gastroesophageal reflux disease) Home Medications ?Medication ?Instructions ?Recorded ?Last Taken ?Type NK 08/03/24 Unknown History albuterol sulfate 90 mcg/actuation 2 inh inhalation Q6H PRN shortness 09/07/24 Unknown Rx breath activated powder inhaler of breath or wheezing #1 ea prednisone 20 mg tablet 20 mg PO DAILY 5 days #5 tabs 09/07/24 Unknown Rx Allergy/AdvReac Type Severity Reaction Status Date / Time No Known Allergies Allergy Verified 09/07/24 11:39 Family History Father Alcoholism CAD (coronary artery disease) Heart disease Hypertension Mother Alcoholism Seizures Surgical History History of ankle surgery Social History housing: homeless Smoking Status: Never smoker Smokeless tobacco user: chewing tobacco how long ago did patient quit smoking: Notes no cig tob use, prior chew only but no current, ongoing cannabis use. alcohol intake: current details: 5-6 beers daily, occasionally whiskey. substance use type: marijuana, opiates and methamphetamine EXAM Physical Exam Const Vital Signs: 09/07/24 11:39 09/07/24 11:41 09/07/24 11:41 Temperature 97.8 F 98.4 F Temperature Source Temporal Oral Pulse Rate 55 L 74 Respiratory Rate 24 H 18 Respiratory Effort Short of Breath Respiratory Depth Shallow Respiratory Pattern Normal Blood Pressure 175/135 H 141/106 H Blood Pressure Mean 148 117 Pulse Ox 90 98 Oxygen Delivery Method Room Air Room Air Room Air 09/07/24 11:51 09/07/24 12:08 09/07/24 12:14 Temperature Temperature Source Pulse Rate 75 75 Respiratory Rate 20 H 20 H Respiratory Effort Respiratory Depth Respiratory Pattern Blood Pressure Blood Pressure Mean Pulse Ox Oxygen Delivery Method Room Air 09/07/24 12:23 09/07/24 12:38 09/07/24 12:55 Temperature 98.6 F Temperature Source Pulse Rate 75 78 78 Respiratory Rate 16 16 16 Respiratory Effort Respiratory Depth Respiratory Pattern Blood Pressure 127/64 H 126/76 H Blood Pressure Mean 85 92 Pulse Ox 98 99 Oxygen Delivery Method Room Air [facility] [place] Narrative Medical decision making narrative: HISTORY OF PRESENT ILLNESS: 48-year-old male presents shortness of breath, cough for 1 week. Notes history of asthma. Notes he has not had his inhaler. Further states he has had 3 days of increased shortness of breath. States having asthma exacerbation. He notes he is not drinking or using drugs at this time. Denies chest pain. Denies vomiting. Denies fever. Does note a cough that is dry. Denies leg swelling. The patient denies recent surgery in the last 4 weeks or immobilization in the last 3 days, denies previous diagnosis of DVT or PE, hemoptysis, unilateral leg swelling or malignancy with treatment the last 6 months or palliative. No estrogen use noted. REVIEW OF SYSTEMS: Pertinent positives: Cough, shortness of breath Pertinent negatives: Cardiac leg swelling, syncope, chest pain PHYSICAL EXAM: Nursing triage notes reviewed, Vital signs reviewed Constitutional: please see mdm HENT: MMM Eyes: Pupils equal round and reactive to light, Extraocular muscles intact Neck: No stridor, no JVD, full neck ROM Lungs: Clear to auscultation, positive inspiratory and expiratory wheezing. Slight increased work of breathing, no conversational dyspnea, no accessory muscle use, no nasal flaring. No respiratory distress noted Heart: Regular rate and rhythm, No murmurs, No rubs and No gallops, 2+ distal pulses (radial, femoral, posterior tibial) in all extremities Abdomen: Soft, there is no tenderness, rigidity, rebound or guarding, no obvious peritoneal signs, no palpable pulsatile abdominal masses, no auscultated abdominal bruit : No CVAT Extremities: No edema Neuro: No new focal neurological deficits, cranial nerves II through XII intact, 5/5 strength in all present extremities. Intact sensation to light touch in all present extremities, 2+ reflexes bilateral patella tendons. Skin: No rash or lesions noted MEDICAL DECISION MAKING: Chief Complaint: Cough, shortness of breath External records reviewed: Reviewed prior imaging studies: Reviewed chest x-ray from 2021 which showed pneumonia Factors affecting care: Asthma Social determinants of health: History of alcohol use History obtained from others: none Consults: none [facility] Narrative: Patient was initially tachypneic respiratory rate of 24, hypertensive and a blood pressure 175/135 he saturating 90% on room air he is afebrile. Lungs had wheezing. This is consistent with likely asthma exacerbation. Started empirically on DuoNeb breathing treatments and Solu-Medrol. I considered the following differential diagnosis: Asthma exacerbation, PE, ACS, arrhythmia, anemia, electrolyte disturbance, pneumothorax While I considered PE as a potential etiology the patient had a low risk Wells score and had focal lung findings more consistent with asthma. As such I have a low suspicion for PE. There is no indication for advanced imaging of the chest such as CTA at this time. ALL IMAGES (IF OBTAINED) HAVE BEEN PERSONALLY REVIEWED AND INTERPRETED BY MYSELF. EKG with sinus bradycardia rate of 59, normal axis, normal intervals, QTc 443, no STEMI. No signs of right heart strain. High-sensitivity troponin is negative, no evidence of myocardial ischemia CBC with no leukocytosis to suggest systemic inflammation, no anemia or thrombocytopenia noted BMP without evidence of significant electrolyte abnormalities, no anion gap, no acute kidney injury. I have personally reviewed the patient's chest x-ray. Chest x-ray is unremarkable for pulmonary edema, pneumothorax, pneumonia or focal cardiopulmonary abnormality. Upon reevaluation the patient's respiratory rate improved to 16, blood pressure improved to 141/106. Saturation improved to 98. Patient is likely suffered an asthma exacerbation. He ambulated here without significant hypoxia. He is poor for discharge home. He is likely sent for an asthma exacerbation. The patient and/or family, caregivers express understanding. The patient and/or family, caregivers agrees with the plan. Shared decision making: I will have a discussion with the patient and or visitors regarding risk/benefits of further testing or admission. They will be made aware of of the risk/benefits inherent in this decision they will be given the opportunity to voice understanding. Total critical care time today provided was at least 0 [] minutes. This excludes separately billable procedures. Critical care time (if documented) is secondary to the patient having high probability of clinically significant/life threatening deterioration in the patient's condition which required my urgent intervention. Impression: 1. Acute asthma exacerbation 2. History of asthma Dispo: Discharge home This note was generated with [employer] software. It may contain incorrect words, spelling, and punctuation that were not noted in review of the chart prior to signing. Lab Data Labs: Laboratory Results - last 24 hr 09/07/24 12:03 WBC 5.4 RBC 4.34 L Hgb 13.8 Hct 41.1 MCV 94.7 H MCH 31.8 MCHC 33.6 RDW Std Deviation 43.4 RDW Coeff of Bridger 12.5 Plt Count 327 MPV 9.3 Immature Gran % (Auto) 0.400 Neut % (Auto) 58.4 Lymph % (Auto) 21.1 Kleberg % (Auto) 7.4 Eos % (Auto) 11.8 H Baso % (Auto) 0.9 Absolute Neuts (auto) 3.2 Absolute Lymphs (auto) 1.14 Nucleated RBC % 0 Sodium 142 Potassium 3.8 Chloride 109 H Carbon Dioxide 28.0 Anion Gap 4 L BUN 18 Creatinine 0.83 Estim Creat Clear Calc 91.48 Est GFR (MDRD) Af Amer 126 Est GFR (MDRD) Non-Af 105 BUN/Creatinine Ratio 21.6 H Glucose 105 Calcium 9.1 Troponin I High Sens 6 Radiography Diagnostic Testing: Clinical Impression(s) from Imaging Studies Chest X-Ray 09/07/24 11:54 IMPRESSION: Stable right upper lung consolidation and pleural thickening. Electronically Signed: Darinel Stewart MD at 12:41 EST , Discharge Plan Triage Chief Complaint: Shortness of Breath ED Provider: Julius Matthews Dx/Rx/DC Orders Instructions: ED Asthma, Acute (Adult) Prescriptions: New prednisone 20 mg tablet 20 mg PO DAILY 5 Days Qty: 5 0RF albuterol sulfate 90 mcg/actuation aerosol powdr breath activated 2 inh inhalation Q6H PRN (Reason: shortness of breath or wheezing) Qty: 1 3RF No Action NK Primary Care Provider: Care Physician,No Primary Referrals: Akhil Berrios MD [Med Staff - Prototype Deicer Assembler] - Activity Restrictions/Additional Instructions: Thank you for trusting us with your care today! Your presentation is consistent with an asthma exacerbation. Your labs images were reassuring and did not show signs of pneumonia, abnormal heart rhythms, heart damage, significant anemia. Your COVID/flu/RSV test are pending. Please refer to your online medical record for results of these tests. You have been prescribed a short course of steroids as well as an inhaler to take as needed for shortness of breath and wheezing. Please take Tylenol (2 pills, 650 mg), ibuprofen (2 pills, 400 mg) every 6 hours as needed for pain and fever control. Please return to the emergency department if your symptoms change or worsen. Specifically develop worsening shortness of breath, chest pain or if you lose consciousness. Please follow with your primary care physician for further outpatient evaluation and management. Print Language: Bhutanese Disposition Disposition: Home, Self Care Discharge Date/Time: 09/07/24 12:55
--- NOTE | 2024-09-07 11:48 | EKG12_ITS ---
Test Reason : SOB Blood Pressure : */* mmHG Vent. Rate : 59 BPM Atrial Rate : 59 BPM P-R Int : 122 ms QRS Dur : 90 ms QT Int : 448 ms P-R-T Axes : 49 66 59 degrees QTcB Int : 443 ms Sinus bradycardia with sinus arrhythmia Otherwise normal ECG Confirmed by Salvador Martinez ([id number]), film editor supervisor PEBBLES FELICIANO ([id number]) on 09/09/2024 6:58:28 AM Referred By: Confirmed By: Salvador Martinez
--- NOTE | 2024-09-07 11:54 | RAD_ITS ---
STUDY: X-RAY CHEST REASON FOR EXAM: Male, 48 years old. SOB TECHNIQUE: AP portable view of the chest. COMPARISON: September 09, 2022 FINDINGS: The lungs are clear and hyperexpanded. There are stable right apical opacities.. There is stable right apical pleural thickening. Normal size heart. Normal mediastinum and tello. Normal visualized pulmonary arteries. Normal visualized aortic arch and descending thoracic aorta. Normal visualized thoracic spine. Normal visualized ribs, clavicles, and shoulders. There is no demonstrated abnormality of the visualized soft tissue structures of the upper abdomen. RAD/Chest 1 View (Portable) IMPRESSION: Stable right upper lung consolidation and pleural thickening. Electronically Signed: Darinel Stewart MD at 12:41 EST ,
[2024-09-07] MEDS: Ipratropium/Albuterol Sulfate 3 ML AMPUL.NEB INHALATION ×3 (12:02)
[2024-09-07] MEDS: MethylPREDNISolone 125 MG/2 ML Vial IV (12:02)
[2024-09-07 12:14] LABS: Absolute Lymphocyte Count 1.14 X10^3/uL (0.83-4.51); Absolute Neutrophil Count 3.2 X10^3/uL (2.0-7.7); Basophil# 0.05 X10^3/uL; Basophil% 0.9 % (0-1); Eosinophil# 0.64 X10^3/uL; Eosinophils% 11.8 % (0-5); Hematocrit 41.1 % (40-54); Hemoglobin 13.8 g/dL (13.0-16.5); Lymphocyte # 1.14 X10^3/ul (0.83-4.51); Lymphocyte % 21.1 % (19-41); Mean Corp Hgb Conc 33.6 g/dL (32-36); Mean Corpuscular Hgb 31.8 pg (27.0-32.0); Mean Corpuscular Volume 94.7 fL (80-94); Mean Platelet Vol. 9.3 fl (6.2-12.0); Monocyte% 7.4 % (0-10); NRBC Flagged by Analyzer 0 % (0-5); Neutrophil # 3.16 X10^3/uL (2.7-7.7); Neutrophil % 58.4 % (47-70); Platelet Count 327 K/mm3 (150-450); RBC Distribution Width CV 12.5 % (11.6-14.6); RBC Distribution Width SD 43.4 fl (35.1-43.9); Red Blood Count 4.34 M/mm3 (4.6-6.2); White Blood Count 5.4 K/mm3 (4.4-11.0)
[2024-09-07 12:30] LABS: Anion Gap 4 (5-15); BUN 18 mg/dL (7-18); BUN/Creat Ratio 21.6 RATIO (10-20); Calcium,Total 9.1 mg/dL (8.5-10.1); Chloride 109 mmol/L (98-107); Creatinine, Serum 0.83 mg/dL (0.70-1.30); EST Glomerular Filtration Rate 105 mL/min (>60); Est Glom Filt Rate - Afr Amer 126 mL/min (>60); Estimated Creatinine Clearance 91.48 ml/min; Glucose 105 mg/dL (74-106); Potassium 3.8 mmol/L (3.5-5.1); Sodium Level 142 mmol/L (136-145); Troponin-I HS 6 pg/mL (3.0-78.0)
== END 2024-09-07 12:55 | disposition home or self-care (01) ==
PROVIDERS: Emergency Provider Emergency Medicine; Visit Provider Emergency Medicine
DX: J45.901 Unspecified asthma with (acute) exacerbation (principal); J43.9 Emphysema, unspecified; R00.1 Bradycardia, unspecified; I10 Essential (primary) hypertension; K21.9 Gastro-esophageal reflux disease without esophagitis; Z59.00 Homelessness unspecified; Z86.73 Personal history of transient ischemic attack (TIA), and cerebral infarction without residual deficits; Z87.891 Personal history of nicotine dependence
CPT/HCPCS: 71045; 80048; 84484; 85025; 87631; 93005; 94640; 96374; 99284; A4216

== ENCOUNTER 2024-09-19 17:47 | Emergency (ER) | payer MEDICAID, SELFPAY ==
[2024-09-19 17:47] VITALS: BP 97/59; PULSE 72; RESP 16; TEMP 35.9; O2SAT 97; BMI 25.3
--- NOTE | 2024-09-19 18:03 | EKG12_ITS ---
Test Reason : SOB Blood Pressure : */* mmHG Vent. Rate : 88 BPM Atrial Rate : 88 BPM P-R Int : 126 ms QRS Dur : 82 ms QT Int : 380 ms P-R-T Axes : 82 70 62 degrees QTcB Int : 459 ms Poor data quality, interpretation may be adversely affected Normal sinus rhythm Normal ECG When compared with ECG of 07-Sep-2024 12:05, Vent. rate has increased by 29 bpm Confirmed by NANCY WEI, DIETER ([id number]), primer expeditor and drier PEBBLES FELICIANO ([id number]) on 09/23/2024 8:38:17 AM Referred By: Confirmed By: DIETER CRUZ MD
[2024-09-19 18:18] VITALS: PULSE 86; RESP 17
[2024-09-19] MEDS: Albuterol 2.5 MG/3 ML VIAL.NEB. 5 MG INHALATION (18:18)
[2024-09-19] MEDS: Ipratropium/Albuterol Sulfate 3 ML AMPUL.NEB INHALATION (18:18)
[2024-09-19] MEDS: MethylPREDNISolone 125 MG/2 ML Vial IV (18:20)
[2024-09-19 18:28] LABS: Absolute Lymphocyte Count 1.48 X10^3/uL (0.83-4.51); Absolute Neutrophil Count 6.3 X10^3/uL (2.0-7.7); Basophil# 0.09 X10^3/uL; Eosinophil# 0.65 X10^3/uL; Eosinophils% 7.1 % (0-5); Hematocrit 43.7 % (40-54); Hemoglobin 14.5 g/dL (13.0-16.5); Lymphocyte # 1.48 X10^3/ul (0.83-4.51); Lymphocyte % 16.2 % (19-41); Mean Corp Hgb Conc 33.2 g/dL (32-36); Mean Corpuscular Hgb 31.4 pg (27.0-32.0); Mean Corpuscular Volume 94.6 fL (80-94); Mean Platelet Vol. 9.4 fl (6.2-12.0); Monocyte% 6.6 % (0-10); NRBC Flagged by Analyzer 0 % (0-5); Neutrophil # 6.29 X10^3/uL (2.7-7.7); Neutrophil % 68.8 % (47-70); Platelet Count 302 K/mm3 (150-450); RBC Distribution Width CV 12.6 % (11.6-14.6); RBC Distribution Width SD 43.4 fl (35.1-43.9); Red Blood Count 4.62 M/mm3 (4.6-6.2); White Blood Count 9.1 K/mm3 (4.4-11.0)
--- NOTE | 2024-09-19 18:30 | EDS_ITS ---
HPI <NIKHIL Middleton - Last Filed: 09/19/24 19:44> History of Present Illness Chief Complaint: Cough Narrative Narrative: Patient is a 48-year-old male with history of intermittent drug abuse, history of alcohol abuse, asthma, COPD who presents to the emerged department for cough and shortness of breath. Patient was seen here on 07 September, diagnosed with asthma exacerbation, placed with an albuterol inhaler as well as prednisone. Patient states he has been outside a lot today, he does work in the [employer]. Patient states he is now having more shortness of breath, cough and is here for evaluation. He denies any fever chills nausea or vomiting. [facility] <NIKHIL Middleton - Last Filed: 09/19/24 19:44> [facility] Medical History Ankle fracture, left Bipolar disorder Depression Anxiety Past history of chewing tobacco use Asthma with COPD Anxiety and depression Inguinal hernia bilateral, non-recurrent Hypertension Stroke/cerebrovascular accident Alcohol abuse Methamphetamine abuse Bulla of lung GERD (gastroesophageal reflux disease) Home Medications ?Medication ?Instructions ?Recorded ?Last Taken ?Type albuterol sulfate 90 mcg/actuation 2 inh inhalation Q6H PRN shortness 09/07/24 Unknown Rx breath activated powder inhaler of breath or wheezing #1 ea prednisone 20 mg tablet 20 mg PO DAILY 5 days #5 tabs 09/07/24 Unknown Rx azithromycin 250 mg tablet See Rx Instructions PO .COMPLEX #6 09/19/24 Unknown Rx tabs prednisone 50 mg tablet 50 mg PO DAILY #5 tabs 09/19/24 Unknown Rx Allergy/AdvReac Type Severity Reaction Status Date / Time No Known Allergies Allergy Verified 09/19/24 17:49 Family History Father Alcoholism CAD (coronary artery disease) Heart disease Hypertension Mother Alcoholism Seizures Surgical History History of ankle surgery Social History housing: homeless Smoking Status: Never smoker Smokeless tobacco user: chewing tobacco how long ago did patient quit smoking: Notes no cig tob use, prior chew only but no current, ongoing cannabis use. alcohol intake: current details: 5-6 beers daily, occasionally whiskey. substance use type: marijuana, opiates and methamphetamine ROS <NIKHIL Middleton - Last Filed: 09/19/24 19:44> ROS ED ROS Narrative Constitutional: Negative for fever, chills, weight loss, weakness Eyes: Negative for vision loss, vision change, double vision ENT: Negative for any sore throat, ear pain, congestion Cardiovascular: Negative for any chest pain, tightness, palpitations Respiratory: Negative for any sputum production, hemoptysis, orthopnea. Positive cough, dyspnea, dyspnea on exertion Gastrointestinal: Negative for any abdominal pain, nausea, vomiting, diarrhea, constipation, blood in stool, blood in vomit : Negative for any urinary frequency, dysuria, retention, blood in urine Muscle skeletal: Negative for any neck pain, back pain Neurological: Negative for any headache, syncope, dizziness Skin: Negative for any rashes, itching, abrasions, lacerations Psychiatric: Negative for any depression, anxiety, stress, suicidal ideation, homicidal ideation Hematologic: Negative for any excessive bruising, easy bleeding EXAM <NIKHIL Middleton - Last Filed: 09/19/24 19:44> Physical Exam Narrative Exam Narrative: Vital signs reviewed. Patient did have some conversational dyspnea, tachypnea. HEET: Head normocephalic atraumatic, TMs clear bilaterally. Posterior pharynx is clear, moist mucous membranes. Nares clear bilaterally. Neck: Supple with no lymphadenopathy or tenderness. No signs of meningismus. Cardiac: Regular rate and rhythm no murmurs gallops or rubs, equal peripheral pulses bilaterally. Respiratory: Expiratory wheezes throughout pulmonary exam. No chest tenderness. Abdomen: Soft, nontender, nondistended. No abdominal bruit or pulsatile masses. No hepatosplenomegaly Extremities: No peripheral edema, no signs of gross trauma or deformity. Active full range of motion of all extremities. Neuro: Cranial nerves II through XII intact, no focal neurological deficits. Skin: Clean dry and intact with no rash, purpura, petechiae, vesicles or pustules. Backs/flank: No CVA tenderness, no midline spinal tenderness, no deformity. Psych: Normal mood and affect. No SI, HI or acute psychosis. Const Vital Signs: 09/19/24 17:47 12/19/24 18:18 09/19/24 19:00 Temperature 96.7 F L Temperature Source Temporal Pulse Rate 72 86 Respiratory Rate 16 17 Respiratory Effort Normal Non-Labored Respiratory Depth Normal Respiratory Pattern Normal Normal Blood Pressure 97/59 L Blood Pressure Mean 71 Pulse Ox 97 Oxygen Delivery Method Room Air Room Air <Dr. Julius Matthews, DO - Last Filed: 09/19/24 19:07> Physical Exam Const Vital Signs: 09/19/24 17:47 09/19/24 18:18 09/19/24 19:00 Temperature 96.7 F L Temperature Source Temporal Pulse Rate 72 86 Respiratory Rate 16 17 Respiratory Effort Normal Non-Labored Respiratory Depth Normal Respiratory Pattern Normal Normal Blood Pressure 97/59 L Blood Pressure Mean 71 Pulse Ox 97 Oxygen Delivery Method Room Air Room Air MDM <SOLANGE MiddletonC - Last Filed: 09/19/24 19:44> [facility] Lab Data Labs: Laboratory Results - last 24 hr 09/19/24 18:19 WBC 9.1 RBC 4.62 Hgb 14.5 Hct 43.7 MCV 94.6 H MCH 31.4 MCHC 33.2 RDW Std Deviation 43.4 RDW Coeff of Bridger 12.6 Plt Count 302 MPV 9.4 Immature Gran % (Auto) 0.300 Neut % (Auto) 68.8 Lymph % (Auto) 16.2 L [place] % (Auto) 6.6 Eos % (Auto) 7.1 H Baso % (Auto) 1.0 Absolute Neuts (auto) 6.3 Absolute Lymphs (auto) 1.48 Nucleated RBC % 0 Sodium 137 Potassium 4.1 Chloride 103 Carbon Dioxide 31.0 Anion Gap 3 L BUN 18 Creatinine 0.75 Estim Creat Clear Calc 112.61 Est GFR (MDRD) Af Amer 142 Est GFR (MDRD) Non-Af 118 BUN/Creatinine Ratio 24.0 H Glucose 101 Calcium 9.2 Radiography Diagnostic Testing: Clinical Impression(s) from Imaging Studies Chest X-Ray 09/19/24 18:55 IMPRESSION: No radiographic evidence of acute cardiopulmonary disease. Electronically Signed: José Miguel Madsen MD at 19:32 EST , EKG Sinus rhythm: Attestation: I personally reviewed and interpreted this EKG as follows: Interpretation: Sinus Rhythm Comments: Sinus rhythm, rate of 88 bpm, VT interval 126 ms, QRS duration 82 ms, no acute ST elevation, no acute infarct noted. Treatment and Re-Evaluation :: Differential diagnosis includes however is not limited to: Community-acquired pneumonia, COPD exacerbation, asthma exacerbation, viral syndrome Patient looks to be in slight respiratory distress on my initial evaluation, some conversational dyspnea. Patient's vital signs are stable. Patient will receive basic laboratory values, two-view chest x-ray, breathing treatments as well as IV steroids patient will need to be reevaluated, all radiologic examinations were read, reviewed by the emergency department attending. From these reads, a plan of care will be put in place. Patient CBC was normal, no leukocytosis. Patient's chemistries were unremarkable. Patient responded well to the breathing treatments, chest x-ray shows no acute process. At this time, patient did ambulate, he did not drop below 92%. At this time he will be discharged home. He will be placed on a course of prednisone as well as Z-Ciro. He is instructed to follow-up outpatient. All questions answered, stable for discharge ED attending note: I evaluated the patient in conjunction with the CURLY. I agree with his/her statements and above findings. I have personally performed a face to face assessment of the patient and have reviewed the CURLY Note. I performed a substantive portion of the visit including all aspects of the following. I personally saw the patient performed chart review, physical exam, reviewed labs, imaging (if obtained), and formulated a treatment and management plan. I have personally reviewed the patient's chest x-ray. Chest x-ray is unremarkable for pulmonary edema, pneumothorax, pneumonia or focal cardiopulmona ry abnormality. History, physical exam consistent with likely asthma exacerbation. Will give aerosols, steroids here and steroids for home-going. Will assure the patient's vital signs remained stable and he has no exertional hypoxia prior to discharge. Final dispo pending labs images, walking pulse ox and reevaluation. This note was generated with [employer] dictation software. It may contain incorrect words, spelling, and punctuation that were not noted in review of the chart prior to signing. <Dr. Julius Matthews, DO - Last Filed: 09/19/24 19:07> [facility] Lab Data Labs: Laboratory Results - last 24 hr 09/19/24 18:19 WBC 9.1 RBC 4.62 Hgb 14.5 Hct 43.7 MCV 94.6 H MCH 31.4 MCHC 33.2 RDW Std Deviation 43.4 RDW Coeff of Bridger 12.6 Plt Count 302 MPV 9.4 Immature Gran % (Auto) 0.300 Neut % (Auto) 68.8 Lymph % (Auto) 16.2 L [place] % (Auto) 6.6 Eos % (Auto) 7.1 H Baso % (Auto) 1.0 Absolute Neuts (auto) 6.3 Absolute Lymphs (auto) 1.48 Nucleated RBC % 0 Sodium 137 Potassium 4.1 Chloride 103 Carbon Dioxide 31.0 Anion Gap 3 L BUN 18 Creatinine 0.75 Estim Creat Clear Calc 112.61 Est GFR (MDRD) Af Amer 142 Est GFR (MDRD) Non-Af 118 BUN/Creatinine Ratio 24.0 H Glucose 101 Calcium 9.2 Radiography Diagnostic Testing: Clinical Impression(s) from Imaging Studies Chest X-Ray 09/19/24 18:55 IMPRESSION: No radiographic evidence of acute cardiopulmonary disease. Electronically Signed: José Miguel Madsen MD at 19:32 EST , Treatment and Re-Evaluation :: Differential diagnosis includes however is not limited to: Community-acquired pneumonia, COPD exacerbation, asthma exacerbation, viral syndrome Patient looks to be in slight respiratory distress on my initial evaluation, some conversational dyspnea. Patient's vital signs are stable. Patient will receive basic laboratory values, two-view chest x-ray, breathing treatments as well as IV steroids patient will need to be reevaluated, all radiologic examinations were read, reviewed by the emergency department attending. From these reads, a plan of care will be put in place. ED attending note: I evaluated the patient in conjunction with the CURLY. I agree with his/her statements and above findings. I have personally performed a face to face assessment of the patient and have reviewed the CURLY Note. I performed a substantive portion of the visit including all aspects of the following. I personally saw the patient performed chart review, physical exam, reviewed labs, imaging (if obtained), and formulated a treatment and management plan. I have personally reviewed the patient's chest x-ray. Chest x-ray is unremarkable for pulmonary edema, pneumothorax, pneumonia or focal cardiopulmonary abnormality. History, physical exam consistent with likely asthma exacerbation. Will give aerosols, steroids here and steroids for home-going. Will assure the patient's vital signs remained stable and he has no exertional hypoxia prior to discharge. Final dispo pending labs images, walking pulse ox and reevaluation. This note was generated with [employer] dictation software. It may contain incorrect words, spelling, and punctuation that were not noted in review of the chart prior to signing. Discharge Plan Triage Chief Complaint: Cough ED Midlevel Provider: Troy Monsalve ED Provider: Julius Matthews Dx/Rx/DC Orders Clinical Impression: Bronchitis, Asthma exacerbation Instructions: Asthma and COPD, ED Bronchitis with Wheezing (Adult) Prescriptions: New prednisone 50 mg tablet 50 mg PO DAILY Qty: 5 0RF azithromycin 250 mg tablet See Rx Instructions .ROUTE .COMPLEX Qty: 6 0RF Rx Instructions: For 250 mg dose pack: take 500 mg today (day 1), then 250 mg for 4 days (days 2-5) No Action prednisone 20 mg tablet 20 mg PO DAILY 5 Days Qty: 5 0RF albuterol sulfate 90 mcg/actuation aerosol powdr breath activated 2 inh inhalation Q6H PRN (Reason: shortness of breath or wheezing) Qty: 1 3RF Primary Care Provider: Care Physician,No Primary Referrals: Care Physician,No Primary [Primary Care Provider] - Activity Restrictions/Additional Instructions: Take the antibiotics and prednisone until finished. Print Language: Algerian Disposition Disposition: Home, Self Care
[2024-09-19 18:40] LABS: Anion Gap 3 (5-15); BUN 18 mg/dL (7-18); Calcium,Total 9.2 mg/dL (8.5-10.1); Chloride 103 mmol/L (98-107); Creatinine, Serum 0.75 mg/dL (0.70-1.30); EST Glomerular Filtration Rate 118 mL/min (>60); Est Glom Filt Rate - Afr Amer 142 mL/min (>60); Estimated Creatinine Clearance 112.61 ml/min; Glucose 101 mg/dL (74-106); Potassium 4.1 mmol/L (3.5-5.1); Sodium Level 137 mmol/L (136-145)
--- NOTE | 2024-09-19 18:55 | RAD_ITS ---
EXAM: XR CHEST, 2 VIEWS CLINICAL INDICATION: cough TECHNIQUE: Frontal and lateral views of the chest. COMPARISON: 09/07/2024 FINDINGS: LUNGS AND PLEURAL SPACES: Unremarkable. No consolidation or edema. No pneumothorax. No effusion. HEART: Unremarkable. Cardiac silhouette not enlarged. MEDIASTINUM: Central airways and mediastinal contour are unremarkable. BONES/JOINTS: Unremarkable. No acute fracture. SOFT TISSUES: Unremarkable. RAD/Chest PA and Lateral IMPRESSION: No radiographic evidence of acute cardiopulmonary disease. Electronically Signed: José Miguel Madsen MD at 19:32 EST ,
[2024-09-19 19:00] VITALS: O2SAT 94
[2024-09-19 19:18] VITALS: O2SAT 94
[2024-09-19 19:47] VITALS: BP 121/81; PULSE 77; RESP 19; TEMP 36.7; O2SAT 93
== END 2024-09-19 19:50 | disposition home or self-care (01) ==
PROVIDERS: Nurse Practitioner; Emergency Provider Emergency Medicine; Visit Provider Emergency Medicine
DX: J45.901 Unspecified asthma with (acute) exacerbation (principal)
CPT/HCPCS: 71046; 80048; 85025; 93005; 94640; 96374; 99283; A4216

== ENCOUNTER 2024-10-21 16:00 | Inpatient (IN) | payer MEDICAID, SELFPAY ==
[2024-10-21] VITALS (15 sets, daily range): BP systolic 106–160; BP diastolic 71–108; PULSE 78–107; RESP 12–30; TEMP 36.4–37.2; O2SAT 93–100; BMI 19.9; BMI 19.0
[2024-10-21] MEDS: MAGNESIUM SULFATE 1000 MG IV (16:04)
--- NOTE | 2024-10-21 16:06 | EKG12_ITS ---
Test Reason : SOB Blood Pressure : */* mmHG Vent. Rate : 107 BPM Atrial Rate : 107 BPM P-R Int : 120 ms QRS Dur : 90 ms QT Int : 362 ms P-R-T Axes : 86 84 73 degrees QTcB Int : 483 ms Sinus tachycardia Biatrial enlargement Abnormal ECG Confirmed by AJAY WEI, PHILIP ([id number]), assignment desk editor OMERO ROBLES ([id number]) on 10/29/2024 6:01:06 AM Referred By: Troy Monryo Confirmed By: PHILIP MOSS MD
[2024-10-21] MEDS: Epi Pen (EQUIV) 0.3 MG Syringe IM (16:13)
[2024-10-21] MEDS: MethylPREDNISolone 125 MG/2 ML Vial IV (16:13)
[2024-10-21] MEDS: Ipratropium/Albuterol Sulfate 3 ML AMPUL.NEB INHALATION ×3 (16:14)
[2024-10-21 16:22] LABS: Absolute Lymphocyte Count 2.02 X10^3/uL (0.83-4.51); Absolute Neutrophil Count 6.3 X10^3/uL (2.0-7.7); Basophil# 0.07 X10^3/uL; Basophil% 0.7 % (0-1); Eosinophil# 0.72 X10^3/uL; Eosinophils% 7.3 % (0-5); Hematocrit 41.5 % (40-54); Hemoglobin 13.8 g/dL (13.0-16.5); Lymphocyte # 2.02 X10^3/ul (0.83-4.51); Lymphocyte % 20.6 % (19-41); Mean Corp Hgb Conc 33.3 g/dL (32-36); Mean Corpuscular Hgb 31.7 pg (27.0-32.0); Mean Corpuscular Volume 95.4 fL (80-94); Mean Platelet Vol. 9.3 fl (6.2-12.0); Monocyte# 0.68 X10^3/uL; Monocyte% 6.9 % (0-10); NRBC Flagged by Analyzer 0 % (0-5); Neutrophil % 64.3 % (47-70); Platelet Count 362 K/mm3 (150-450); RBC Distribution Width CV 12.6 % (11.6-14.6); RBC Distribution Width SD 44.6 fl (35.1-43.9); Red Blood Count 4.35 M/mm3 (4.6-6.2); White Blood Count 9.8 K/mm3 (4.4-11.0)
--- NOTE | 2024-10-21 16:30 | RAD_ITS ---
EXAM: XR CHEST, 1 VIEW CLINICAL INDICATION: Shortness of breath TECHNIQUE: Frontal view of the chest. COMPARISON: 09/19/24 FINDINGS: LUNGS AND PLEURAL SPACES: Emphysema suggestion. No consolidation. No mass. No pneumothorax. No effusion. HEART: Unremarkable. Cardiac silhouette not enlarged. MEDIASTINUM: Central airways and mediastinal contour are unremarkable. BONES/JOINTS: Unremarkable. No acute fracture. SOFT TISSUES: Unremarkable. RAD/Chest 1 View (Portable) IMPRESSION: No acute disease Electronically Signed: Andrew Jones MD at 17:16 EST ,
[2024-10-21 16:32] LABS: Allen Test Positive; Base Excess 10 mmol/L (-2 to +2); Bicarbonate 35.7 mmol/L (22-26); Blood Gas Specimen Type ART; Mode Not entered; O2 Delivery Device BiPAP; PEEP 6; PO2 343 mmHG (75-100); RR 12; SITE L Brach; SO2 100 % (95-99); Total Carbon Dioxide 38 mmol/L; pCO2 66.3 mmHg (35-45); pH 7.34 (7.35-7.45)
[2024-10-21 16:42] LABS: Anion Gap 4 (5-15); BUN 28 mg/dL (7-18); BUN/Creat Ratio 34.1 RATIO (10-20); Calcium,Total 9.3 mg/dL (8.5-10.1); Chloride 101 mmol/L (98-107); Creatinine, Serum 0.82 mg/dL (0.70-1.30); EST Glomerular Filtration Rate 106 mL/min (>60); Est Glom Filt Rate - Afr Amer 128 mL/min (>60); Estimated Creatinine Clearance 90.07 ml/min; Glucose 146 mg/dL (74-106); Potassium 3.5 mmol/L (3.5-5.1); Sodium Level 142 mmol/L (136-145); Troponin-I HS 8 pg/mL (3.0-78.0)
[2024-10-21 16:52] LABS: D-Dimer Quantitative (DVT/PE) 1.14 FEU/ug/m (0.27-0.49)
--- NOTE | 2024-10-21 17:06 | ED.VIS.DYS ---
HPI History of Present Illness Chief Complaint: Shortness of Breath [facility] Medical History (Updated 10/21/24 @ 19:[address] Troy Monroy MD) Methamphetamine abuse Ankle fracture, left Bipolar disorder Depression Anxiety Past history of chewing tobacco use Asthma with COPD Anxiety and depression Inguinal hernia bilateral, non-recurrent Hypertension Stroke/cerebrovascular accident Alcohol abuse Bulla of lung GERD (gastroesophageal reflux disease) Home Medications ?Medication ?Instructions ?Recorded ?Last Taken ?Type albuterol sulfate 90 mcg/actuation 2 inh inhalation Q6H PRN shortness 09/07/24 10/21/24 Rx breath activated powder inhaler of breath or wheezing #1 ea Allergy/AdvReac Type Severity Reaction Status Date / Time No Known Allergies Allergy Verified 10/21/24 21:06 Family History Father Alcoholism CAD (coronary artery disease) Heart disease Hypertension Mother Alcoholism Seizures Surgical History History of ankle surgery Social History housing: homeless Smoking Status: Never smoker Smokeless tobacco user: chewing tobacco how long ago did patient quit smoking: Notes no cig tob use, prior chew only but no current, ongoing cannabis use. alcohol intake: current details: 5-6 beers daily, occasionally whiskey. substance use type: marijuana, opiates and methamphetamine EXAM Physical Exam Const Vital Signs: 10/21/24 16:02 10/21/24 16:05 10/21/24 16:05 Temperature 97.8 F 97.6 F L Temperature Source Temporal Oral Pulse Rate 105 H 107 H 106 H Respiratory Rate 30 H 28 H 20 H Respiratory Effort Respiratory Depth Respiratory Pattern Blood Pressure 160/108 H Blood Pressure Mean 125 Pulse Ox 100 100 Oxygen Delivery Method Non-Rebreather Bi-pap Oxygen Flow Rate (L/min) 15 Fraction of Inspired Oxygen (FIO2) 10/21/24 16:05 10/21/24 16:07 10/21/24 16:08 Temperature Temperature Source Pulse Rate 106 H Respiratory Rate 20 H Respiratory Effort Short of Breath Accessory Muscle Use Head [place] Respiratory Depth Normal Respiratory Pattern Tachypnea Blood Pressure Blood Pressure Mean Pulse Ox 100 100 Oxygen Delivery Method Bi-pap Bi-pap Oxygen Flow Rate (L/min) Fraction of Inspired Oxygen (FIO2) 60 10/21/24 16:30 10/21/24 17:05 10/21/24 17:05 Temperature 98.1 F Temperature Source Temporal Pulse Rate 99 99 Respiratory Rate 17 17 Respiratory Effort Respiratory Depth Respiratory Pattern Blood Pressure 125/75 H 125/75 H Blood Pressure Mean 91 91 Pulse Ox 99 99 Oxygen Delivery Method Bi-pap Bi-pap Oxygen Flow Rate (L/min) Fraction of Inspired Oxygen (FIO2) 40 40 40 10/21/24 17:31 10/21/24 18:07 10/21/24 19:00 Temperature 98.1 F 98.9 F Temperature Source Temporal Oral Pulse Rate 85 78 Respiratory Rate 14 18 Respiratory Effort Respiratory Depth Respiratory Pattern Blood Pressure 106/72 118/78 Blood Pressure Mean 83 91 Pulse Ox 99 97 96 Oxygen Delivery Method Nasal Cannula Nasal Cannula Nasal Cannula Oxygen Flow Rate (L/min) 3 3 2 Fraction of Inspired Oxygen (FIO2) MDM MDM MDM Narrative Medical decision making narrative: HISTORY OF PRESENT ILLNESS: 48-year-old male presents acute onset of significant shortness of breath. He does not provide a lot of history as he has significant respiratory distress. Per EMS they were called due to shortness of breath. They note patient's initial pulse ox was 75%. They placed him on a nonrebreather and brought him to the emergency department. After initial stabilization patient noted several days of shortness of breath, on and off cough. He denies chest pain. Denies leg swelling. The patient denies recent surgery in the last 4 weeks or immobilization in the last 3 days, denies previous diagnosis of DVT or PE, hemoptysis, unilateral leg swelling or malignancy with treatment the last 6 months or palliative. No estrogen use noted. REVIEW OF SYSTEMS: Pertinent positives: Shortness of breath Pertinent negatives: Chest pain, leg swelling, syncope PHYSICAL EXAM: Nursing triage notes reviewed, Vital signs reviewed Constitutional: please see mdm HENT: MMM Eyes: Pupils equal round and reactive to light, Extraocular muscles intact Neck: No stridor, no JVD, full neck ROM Lungs: Severe conversational dyspnea, inspiratory and expiratory wheezing throughout. Extremely tight lungs, poor air movement, accessory muscle use, belly breathing, Heart: Regular rate and rhythm, No murmurs, No rubs and No gallops, 2+ distal pulses (radial, femoral, posterior tibial) in all extremities Abdomen: Soft, there is no tenderness, rigidity, rebound or guarding, no obvious peritoneal signs, no palpable pulsatile abdominal masses, no auscultated abdominal bruit : No CVAT Extremities: No edema Neuro: No new focal neurological deficits, cranial nerves II through XII intact, 5/5 strength in all present extremities. Intact sensation to light touch in all present extremities, 2+ reflexes bilateral patella tendons. Skin: No rash or lesions noted MEDICAL DECISION MAKING: Chief Complaint: Shortness of breath External records reviewed: Reviewed allergies, medications Factors affecting care: asthma, bipolar disorder Social determinants of health: n history of polysubstance abuse History obtained from others: EMS Consults: Internal medicine/critical care MDM Narrative: Patient was initially hypertensive with blood pressure 160/108, tachycardic with a heart rate of 105, tachypneic at rest rate of 30 saturating 100% on nonrebreather. I considered the following differential diagnosis: Asthma exacerbation, PE, ACS, arrhythmia, CHF, COVID flu Patient's initial lung exam with inspiratory expiratory wheezing. Given the patient's initial respiratory failure, significant increased work of breathing is me placed on BiPAP and given rescue IM epinephrine and a quick push magnesium for initial stabilization. He is also given Solu-Medrol and continuous DuoNeb breathing treatments. ALL IMAGES (IF OBTAINED) HAVE BEEN PERSONALLY REVIEWED AND INTERPRETED BY MYSELF. EKG with sinus tachycardia rate of 107, normal axis, normal intervals, no STEMI ABG with respiratory acidosis with a pH of 7.3 and CO2 of 66 CBC with no leukocytosis, no anemia or thrombocytopenia BNP within normal limits, no sign of heart failure D-dimer elevated consistent with increased clot breakdown this raises suspicion for VTE will obtain a CT of the chest BMP without evidence of significant electrolyte abnormalities, no anion gap, no acute kidney injury. High-sensitivity troponin is negative, no evidence of myocardial ischemia I have personally reviewed the patient's chest x-ray. Chest x-ray is unremarkable for pulmonary edema, pneumothorax, pneumonia or focal cardiopulmonary abnormality. CTA of the chest shows no evidence of PE does show evidence of possible consolidative process such as pneumonia the synthesis of the patient's history, physical exam, labs images suggest Acute asthma exacerbation potentially worsened by pneumonia. Patient showed marked improvement in respiratory status throughout his ED course. The initial BiPAP was taken off a little nasal cannula. He was given IV antibiotics given concern for consolidation. He is appropriate for admission to the PCU. Discussed with Dr. Monroy. The patient and/or family, caregivers express understanding. The patient and/or family, caregivers agrees with the plan. Shared decision making: I will have a discussion with the patient and or visitors regarding risk/benefits of further testing or admission. They will be made aware of of the risk/benefits inherent in this decision they will be given the opportunity to voice understanding. Total critical care time today provided was at least 60 minutes. This excludes separately billable procedures. Critical care time (if documented) is secondary to the patient having high probability of clinically significant/life threatening deterioration in the patient's condition which required my urgent intervention. Impression: 1. Acute hypercarbic respiratory failure 2. Asthma exacerbation Dispo: Admit to PCU This note was generated with [employer] dictation software. It may contain incorrect words, spelling, and punctuation that were not noted in review of the chart prior to signing. Lab Data Labs: Laboratory Results - last 24 hr 10/21/24 16:07 WBC 9.8 RBC 4.35 L Hgb 13.8 Hct 41.5 MCV 95.4 H MCH 31.7 MCHC 33.3 RDW Std Deviation 44.6 H RDW Coeff of Bridger 12.6 Plt Count 362 MPV 9.3 Immature Gran % (Auto) 0.200 Neut % (Auto) 64.3 Lymph % (Auto) 20.6 [place] % (Auto) 6.9 Eos % (Auto) 7.3 H Baso % (Auto) 0.7 Absolute Neuts (auto) 6.3 Absolute Lymphs (auto) 2.02 Nucleated RBC % 0 D-Dimer Quant (PE/DVT) 1.14 H* Sodium 142 Potassium 3.5 Chloride 101 Carbon Dioxide 37.0 H Anion Gap 4 L BUN 28 H Creatinine 0.82 Estim Creat Clear Calc 90.07 Est GFR (MDRD) Af Amer 128 Est GFR (MDRD) Non-Af 106 BUN/Creatinine Ratio 34.1 H Glucose 146 H Calcium 9.3 Troponin I High Sens 8 B-Natriuretic Peptide 31.1 ABG Data ABG results: ABG 10/21/24 16:27 Specimen Type ART Sample Site L Brach pH 7.34 L Bicarbonate Actual 35.7 H Total CO2 38 Base Excess 10 H O2 Saturation 100 H O2 % 60.0 ABG pCO2 66.3 H ABG pO2 343 H* Irvin Test Positive Respiration Rate 12 O2 Delivery Device BiPAP Vent Mode Not entered POC PEEP 6 Crit Call To/Read Back Yes Blood Gas Notified Whom MEKA Blood Gas Notified Time 16:29:44 Radiography Diagnostic Testing: Clinical Impression(s) from Imaging Studies Chest X-Ray 10/21/24 16:30 IMPRESSION: No acute disease Electronically Signed: Andrew Jones MD at 17:16 EST , Chest CTA 10/21/24 17:25 IMPRESSION: 1. Infectious bronchiolitis at the right upper lobe with possible consolidative opacities more peripherally at the right upper lobe. 2. No PE. AIDOC was utilized to assist in identifying pertinent positive findings. Electronically Signed: Andrew Jones MD at 18:53 EST , Discharge Plan Disposition Disposition: Acute Care Hospital [facility] Discharge Date/Time: 10/21/24 20:47
--- NOTE | 2024-10-21 17:25 | CT_ITS ---
EXAM: CT ANGIOGRAPHY CHEST WITHOUT AND WITH INTRAVENOUS CONTRAST CLINICAL INDICATION: SOB, elevated d-dimer TECHNIQUE: Helically acquired angiography images were obtained of the chest without and with intravenous contrast. CTDIvol = ( 6.35 ) mGy, DLP = ( 210.02 ) mGycm This CT exam was performed using one or more of the following dose reduction techniques: automated exposure control, adjustment of the mA and/or kV according to patient size, and/or use of iterative reconstruction technique. MIP reconstructed images were created and reviewed. CONTRAST: IV 100mL [id number] COMPARISON: Chest CT May 02, 2014 FINDINGS: PULMONARY ARTERIES: Unremarkable. No evidence of pulmonary embolism. No PE. No aortic aneurysm or dissection. AORTA: See above. GREAT VESSELS OF AORTIC ARCH: Unremarkable. Normal in caliber. No evidence of dissection. LUNGS AND PLEURAL SPACES: Bronchial wall thickening concerning for bronchitis. There is evidence for an infectious bronchiolitis involving the right upper lobe. Pleural parenchymal scarring versus consolidation at the right upper lobe/apex. No mass. No pneumothorax. HEART: Unremarkable. Heart size is normal. No pericardial effusion. No significant coronary artery calcifications. MEDIASTINUM: Unremarkable. No mediastinal or hilar adenopathy. Esophagus is unremarkable. No hiatal hernia. THYROID: Unremarkable. No thyroid lesions. BONES/JOINTS: Unremarkable. No suspicious lytic or blastic abnormality. CT/CTA Chest W/WO Contrast IMPRESSION: 1. Infectious bronchiolitis at the right upper lobe with possible consolidative opacities more peripherally at the right upper lobe. 2. No PE. AIDOC was utilized to assist in identifying pertinent positive findings. Electronically Signed: Andrew Jones MD at 18:53 EST ,
--- NOTE | 2024-10-21 17:33 | CPS ---
Rt called about pt needing to go to Ct scan. RT took pt off bipap at this time, and placed pt on 3L NC at this time. Pt states he is feeling better and is okay to stay off bipap at this time. RT told RN to call if the patient needs to go back on bipap
[2024-10-21 17:36] LABS: BNP,B-Type NATRIURETIC PEPTIDE 31.1 pg/mL (0-100)
--- NOTE | 2024-10-21 19:26 | HP.PCM_ITS ---
[facility] - General General Date of Admission: 10/21/24 Date of Service: 10/21/24 Chief Complaint: Shortness of breath HPI Narrative MICHAEL KAUR, is a 48 M who presents with chief complaint of shortness of breath. Onset of symptoms began over the past week. Patient has significant past medical history of asthma and drug abuse including methamphetamine which she admits to using yesterday, he denies smoking cigarettes and has stopped smoking marijuana. Upon arrival to the hospital patient's oxygen saturation was in the mid 70% range and he does not use oxygen at home. Patient required BiPAP therapy and was then weaned down to nasal cannula oxygen at 2 L to maintain his oxygen saturation greater than 90%. Patient continues to feel tired but states he has improved since arriving to the hospital after several breathing treatments. Patient will be admitted to the progressive care unit for impending respiratory failure and management of an asthma exacerbation. Patient denies any nausea, vomiting, diarrhea and fevers or chills. COVID and influenza testing are negative and chest x-ray is equivocal as well as CBC. [facility] Medical History (Updated 10/21/24 @ 19:[address] Troy Monroy MD) Methamphetamine abuse Ankle fracture, left Bipolar disorder Depression Anxiety Past history of chewing tobacco use Asthma with COPD Anxiety and depression Inguinal hernia bilateral, non-recurrent Hypertension Stroke/cerebrovascular accident Alcohol abuse Bulla of lung GERD (gastroesophageal reflux disease) Home Medications ?Medication ?Instructions ?Recorded ?Last Taken ?Type albuterol sulfate 90 mcg/actuation 2 inh inhalation Q6H PRN shortness 09/07/24 Unknown Rx breath activated powder inhaler of breath or wheezing #1 ea Allergy/AdvReac Type Severity Reaction Status Date / Time No Known Allergies Allergy Verified 10/21/24 16:02 Family History Father Alcoholism CAD (coronary artery disease) Heart disease Hypertension Mother Alcoholism Seizures Surgical History History of ankle surgery Social History housing: homeless Smoking Status: Never smoker Smokeless tobacco user: chewing tobacco how long ago did patient quit smoking: Notes no cig tob use, prior chew only but no current, ongoing cannabis use. alcohol intake: current details: 5-6 beers daily, occasionally whiskey. substance use type: marijuana, opiates and methamphetamine ROS Constitutional Constitutional: Denies chills or fever(s) Eyes Eyes: Denies blurry vision ENT HEENT: Denies abnormal hearing Cardiovascular Cardiovascular: Denies chest pain Respiratory/Chest Respiratory/Chest: Reports cough, shortness of breath at rest and wheezing Gastrointestinal Gastrointestinal: Denies abdominal pain Genitourinary Genitourinary: Denies dysuria Musculoskeletal Musculoskeletal: Denies back pain Integumentary Integumentary: Denies dry skin Neurologic Neurologic: Denies abnormal gait Psychiatric Psychiatric: Reports anxiety and depression Vital Signs Vital Signs Vital Signs: 10/21/24 16:02 10/21/24 16:05 10/21/24 16:05 Temperature 97.8 F 97.6 F L Temperature Source Temporal Oral Pulse Rate 105 H 107 H 106 H Respiratory Rate 30 H 28 H 20 H Respiratory Effort Respiratory Depth Respiratory Pattern Blood Pressure 160/108 H Blood Pressure Mean 125 Pulse Ox 100 100 Oxygen Delivery Method Non-Rebreather Bi-pap Oxygen Flow Rate (L/min) 15 Fraction of Inspired Oxygen (FIO2) 10/21/24 16:05 10/21/24 16:07 10/21/24 16:08 Temperature Temperature Source Pulse Rate 106 H Respiratory Rate 20 H Respiratory Effort Short of Breath Accessory Muscle Use Head Bobbing Respiratory Depth Normal Respiratory Pattern Tachypnea Blood Pressure Blood Pressure Mean Pulse Ox 100 100 Oxygen Delivery Method Bi-pap Bi-pap Oxygen Flow Rate (L/min) Fraction of Inspired Oxygen (FIO2) 60 10/21/24 16:30 10/21/24 17:05 10/21/24 17:05 Temperature 98.1 F Temperature Source Temporal Pulse Rate 99 99 Respiratory Rate 17 17 Respiratory Effort Respiratory Depth Respiratory Pattern Blood Pressure 125/75 H 125/75 H Blood Pressure Mean 91 91 Pulse Ox 99 99 Oxygen Delivery Method Bi-pap Bi-pap Oxygen Flow Rate (L/min) Fraction of Inspired Oxygen (FIO2) 40 40 40 10/21/24 17:31 10/21/24 18:07 10/21/24 19:00 Temperature 98.1 F 98.9 F Temperature Source Temporal Oral Pulse Rate 85 78 Respiratory Rate 14 18 Respiratory Effort Respiratory Depth Respiratory Pattern Blood Pressure 106/72 118/78 Blood Pressure Mean 83 91 Pulse Ox 99 97 96 Oxygen Delivery Method Nasal Cannula Nasal Cannula Nasal Cannula Oxygen Flow Rate (L/min) 3 3 2 Fraction of Inspired Oxygen (FIO2) Weight Weight: 127 lb 6.835 oz Body Mass Index (BMI) 19.9 Physical Exam Const alert and oriented x3 General Appearance: cooperative HEENT normocephalic and head/scalp atraumatic Eyes PERRL Neck no lymphadenopathy Lymph Lymphatic: no lymphadenopathy noted Resp Auscultation: wheezes expiratory wheezes; Negative for rales or rhonchi Cardio regular rate, regular rhythm, S1 normal heart sound, S2 normal heart sound and no murmurs GI normal to inspection, nondistended, normoactive bowel sounds Extremity normal capillary refill General Extremity: Negative for clubbing Skin General Skin Exam: Negative for no breakdown Neuro no focal motor deficits and no sensory deficits noted Psych thought process normal Appearance: appropriate Mood & Affect: anxious Results Lab / Micro Data 10/21/24 16:07 10/21/24 16:07 Labs: Laboratory Results - last 24 hr 10/21/24 16:07: WBC 9.8, RBC 4.35 L, Hgb 13.8, Hct 41.5, MCV 95.4 H, MCH 31.7, MCHC 33.3, RDW Std Deviation 44.6 H, RDW Coeff of Bridger 12.6, Plt Count 362, MPV 9.3, Immature Gran % (Auto) 0.200, Neut % (Auto) 64.3, Lymph % (Auto) 20.6, [place] % (Auto) 6.9, Eos % (Auto) 7.3 H, Baso % (Auto) 0.7, Absolute Neuts (auto) 6.3, Absolute Lymphs (auto) 2.02, Nucleated RBC % 0, D-Dimer Quant (PE/DVT) 1.14 H*, Sodium 142, Potassium 3.5, Chloride 101, Carbon Dioxide 37.0 H, Anion Gap 4 L, B UN 28 H, Creatinine 0.82, Estim Creat Clear Calc 90.07, Est GFR (MDRD) Af Amer 128, Est GFR (MDRD) Non-Af 106, BUN/Creatinine Ratio 34.1 H, Glucose 146 H, Calcium 9.3, Troponin I High Sens 8, B-Natriuretic Peptide 31.1 Micro: Microbiology 10/21/24 16:14 Mucosa - Nose SARS-CoV-2, Influenza & RSV (PCR) - Final ABG Data ABG results: ABG 10/21/24 16:27 Specimen Type ART Sample Site L Brach pH 7.34 L Bicarbonate Actual 35.7 H Total CO2 38 Base Excess 10 H O2 Saturation 100 H O2 % 60.0 ABG pCO2 66.3 H ABG pO2 343 H* Irvin Test Positive Respiration Rate 12 O2 Delivery Device BiPAP Vent Mode Not entered POC PEEP 6 Crit Call To/Read Back Yes Blood Gas Notified Whom MEKA Blood Gas Notified Time 16:29:44 Imaging Radiology Impression Chest X-Ray 10/21/24 16:30 IMPRESSION: No acute disease Electronically Signed: Andrew Jones MD at 17:16 EST , Chest CTA 10/21/24 17:25 IMPRESSION: 1. Infectious bronchiolitis at the right upper lobe with possible consolidative opacities more peripherally at the right upper lobe. 2. No PE. AIDOC was utilized to assist in identifying pertinent positive findings. Electronically Signed: Andrew Jones MD at 18:53 EST , Assessment & Plan Assessment/Plan (1) Methamphetamine abuse: (2) Acute asthma exacerbation: PLAN: Plan 1 acute respiratory failure secondary to asthma exacerbation?admit patient to progressive care unit, IV Solu-Medrol treatments every 8 hours along with albuterol breathing treatments every 4 hours as needed. Will continue oxygen to maintain saturation greater than 90% overnight and will wean off as tolerated. 2. History of methamphetamine abuse last use was yesterday. Encourage cessation and will offer drug rehab counseling options at discharge 3. DVT prophylaxis?low molecular weight heparin Charges/Coding Visit Charges Inpatient E&M: 22095 Init Hosp L2
[2024-10-21] MEDS: Ceftriaxone 2 GM in 0.9% Normal Saline (50mL MB+) 50 ML IV (19:39)
[2024-10-21] MEDS: Azithromycin 500 MG in 0.9% Normal Saline (250mL Bag) 250 ML 250 MG IV (20:13)
[2024-10-21] MEDS: Albuterol 2.5 MG/3 ML VIAL.NEB. INHALATION (23:56)
[2024-10-22] VITALS (12 sets, daily range): BP systolic 103–140; BP diastolic 66–86; PULSE 62–99; RESP 15–22; TEMP 36.7–37; O2SAT 90–97
[2024-10-22] MEDS: Albuterol 2.5 MG/3 ML VIAL.NEB. INHALATION ×5 (04:04→19:42)
[2024-10-22] MEDS: 0.9% Saline Lock 10 ML Syringe IV (06:22)
[2024-10-22 06:40] LABS: Absolute Lymphocyte Count 0.32 X10^3/uL (0.83-4.51); Absolute Neutrophil Count 4.9 X10^3/uL (2.0-7.7); Basophil# 0.01 X10^3/uL; Basophil% 0.2 % (0-1); Hematocrit 35.4 % (40-54); Hemoglobin 11.9 g/dL (13.0-16.5); Lymphocyte # 0.32 X10^3/ul (0.83-4.51); Lymphocyte % 6.1 % (19-41); Mean Corp Hgb Conc 33.6 g/dL (32-36); Mean Corpuscular Hgb 32.1 pg (27.0-32.0); Mean Corpuscular Volume 95.4 fL (80-94); Mean Platelet Vol. 9.5 fl (6.2-12.0); Monocyte# 0.05 X10^3/uL; NRBC Flagged by Analyzer 0 % (0-5); Neutrophil # 4.85 X10^3/uL (2.7-7.7); Neutrophil % 92.3 % (47-70); POSITIVE DIFFERENTIAL YES; Platelet Count 264 K/mm3 (150-450); RBC Distribution Width CV 12.9 % (11.6-14.6); RBC Distribution Width SD 44.8 fl (35.1-43.9); Red Blood Count 3.71 M/mm3 (4.6-6.2); White Blood Count 5.3 K/mm3 (4.4-11.0)
[2024-10-22 06:51] LABS: Anion Gap 4 (5-15); BUN 22 mg/dL (7-18); BUN/Creat Ratio 34.7 RATIO (10-20); Calcium,Total 8.8 mg/dL (8.5-10.1); Chloride 110 mmol/L (98-107); Creatinine, Serum 0.63 mg/dL (0.70-1.30); EST Glomerular Filtration Rate 143 mL/min (>60); Est Glom Filt Rate - Afr Amer 173 mL/min (>60); Estimated Creatinine Clearance 111.55 ml/min; Glucose 179 mg/dL (74-106); Potassium 4.2 mmol/L (3.5-5.1); Sodium Level 138 mmol/L (136-145)
--- NOTE | 2024-10-22 08:33 | PCM.PN.HOSP ---
Reason for Visit Reason for Visit: Diagnoses Other stimulant abuse, uncomplicated (10/21/24) Unspecified asthma with (acute) exacerbation (10/21/24) Subjective Subjective Feeling better. Objective Data Objective Data Vital Signs: Vital Signs Temp Pulse Resp BP Pulse Ox O2 Del Method O2 Flow Rate 36.8 C 78 22 H 119/72 94 Room Air 3 10/22/24 03:15 10/22/24 07:17 10/22/24 07:17 10/22/24 03:15 10/22/24 07:17 10/22/24 07:17 10/21/24 19:38 FiO2 40 10/21/24 17:05 Oxygen Flow Rate (L/min) 3 Oxygen Delivery Method Room Air Weight: 55 kg Body Mass Index (BMI) 19.0 Intake & Output: Intake and Output for Last 24 Hours 10/20/24 10/21/24 10/22/24 23:59 23:59 23:59 Intake Total 305 / 305 Balance 305 / 305 Lab / Micro Data 10/22/24 05:33 10/22/24 05:33 Labs: Laboratory Results - last 24 hr 10/21/24 16:07: WBC 9.8, RBC 4.35 L, Hgb 13.8, Hct 41.5, MCV 95.4 H, MCH 31.7, MCHC 33.3, RDW Std Deviation 44.6 H, RDW Coeff of Bridger 12.6, Plt Count 362, MPV 9.3, Immature Gran % (Auto) 0.200, Neut % (Auto) 64.3, Lymph % (Auto) 20.6, Rogers % (Auto) 6.9, Eos % (Auto) 7.3 H, Baso % (Auto) 0.7, Absolute Neuts (auto) 6.3, Absolute Lymphs (auto) 2.02, Nucleated RBC % 0, D-Dimer Quant (PE/DVT) 1.14 H*, Sodium 142, Potassium 3.5, Chloride 101, Carbon Dioxide 37.0 H, Anion Gap 4 L, BUN 28 H, Creatinine 0.82, Estim Creat Clear Calc 90.07, Est GFR (MDRD) Af Amer 128, Est GFR (MDRD) Non-Af 106, BUN/Creatinine Ratio 34.1 H, Glucose 146 H, Calcium 9.3, Troponin I High Sens 8, B-Natriuretic Peptide 31.1 01/21/25 05:33: WBC 5.3, RBC 3.71 L, Hgb 11.9 L, Hct 35.4 L, MCV 95.4 H, MCH 32.1 H, MCHC 33.6, RDW Std Deviation 44.8 H, RDW Coeff of Bridger 12.9, Plt Count 264, MPV 9.5, Immature Gran % (Auto) 0.400, Neut % (Auto) 92.3 H, Lymph % (Auto) 6.1 L, Rogers % (Auto) 1.0, Eos % (Auto) 0.0, Baso % (Auto) 0.2, Absolute Neuts (auto) 4.9, Absolute Lymphs (auto) 0.32 L, Nucleated RBC % 0, Sodium 138, Potassium 4.2, Chloride 110 H, Carbon Dioxide 25.0, Anion Gap 4 L, BUN 22 H, Creatinine 0.63 L, Estim Creat Clear Calc 111.55, Est GFR (MDRD) Af Amer 173, Est GFR (MDRD) Non-Af 143, BUN/Creatinine Ratio 34.7 H, Glucose 179 H, Calcium 8.8 Micro: Microbiology 10/22/24 04:03 Mucosa - Nasopharyngeal Respiratory Panel (PCR) - Final 10/21/24 16:14 Mucosa - Nose SARS-CoV-2, Influenza & RSV (PCR) - Final ABG Data ABG results: ABG 10/21/24 16:27 Specimen Type ART Sample Site L Brach pH 7.34 L Bicarbonate Actual 35.7 H Total CO2 38 Base Excess 10 H O2 Saturation 100 H O2 % 60.0 ABG pCO2 66.3 H ABG pO2 343 H* Irvin Test Positive Respiration Rate 12 O2 Delivery Device BiPAP Vent Mode Not entered POC PEEP 6 Crit Call To/Read Back Yes Blood Gas Notified Whom MEKA Blood Gas Notified Time 16:29:44 Radiography Diagnostic Testing: Radiology Impression Chest X-Ray 10/21/24 16:30 IMPRESSION: No acute disease Electronically Signed: Andrew Jones MD at 17:16 EST , Chest CTA 01/20/25 17:25 IMPRESSION: 1. Infectious bronchiolitis at the right upper lobe with possible consolidative opacities more peripherally at the right upper lobe. 2. No PE. AIDOC was utilized to assist in identifying pertinent positive findings. Electronically Signed: Andrew Jones MD at 18:53 EST , Physical Exam Const alert and no apparent distress Constitutional Narrative: minimal eye contact with me. Cardio regular rate and regular rhythm Assessment & Plan Assessment/Plan (1) Methamphetamine abuse: (2) Acute asthma exacerbation: PLAN: Plan Acute hypoxic and hypercapnic respiratory failure Secondary to acute exacerbation of asthma and pneumonia Patient was on BiPAP at 1 point and then has since improved significantly down to room air. on methylpred and BDs. Patient did not require oxygen with home oxygen evaluation. Will discharge with prednisone. Suspected pneumococcal pneumonia RUL resp, COVID/influenza/RSV negative. check SCx. strep and legionella antigens negative. PEP Received CTX and azithromycin in the ED, reinitiated on the floor. Will discharge with Augmentin. . DVT prophylaxis?low molecular weight heparin
[2024-10-22] MEDS: Ceftriaxone 1 GM/50 ML BAG IV (09:40)
[2024-10-22] MEDS: Enoxaparin 40 MG/0.4 ML Syringe SC (09:43)
[2024-10-22] MEDS: Ensure Plus High Protein 120 ML LIQUID PO ×2 (10:09→13:42)
[2024-10-22] MEDS: Azithromycin 500 MG in 0.9% Normal Saline (250mL Bag) 250 ML 255 MG IV (10:10)
--- NOTE | 2024-10-22 12:36 | CASEMGMT ---
Patient triggered SDOH for housing, utilities, food, and transportation. SW met with patient. Introduced self and role at [facility]. [facility] as there are no beds available in the main assisted. Patient has been homeless for several years. SW asked patient if he has ever worked with [employer] program. Patient stated he started to, but did not follow up. SW provided patient with information on Housing assistance programs, hot meals served at churches, food pantries, and [employer] card. Patient thanked ROMELIA and said he will likely need a ride back to [employer] when discharged. Dali ALBERTO
--- NOTE | 2024-10-22 14:43 | CASEMGMT ---
FRANCESCA HONG Assessment Face to Face with patient for initial transition planning/care coordination assessment. FRANCESCA HONG introduced self and role at [facility], pt voices understanding. Pt is A&Ox4 and is resting comfortably in bed and is calm. Care providers, pharmacy, and demographics verified. Admitting dx: DES GUTHRIE Strata: 3 PCP: No PCP. List provided to the pt at this time with [facility] information. Pt thanks this FRANCESCA HONG and denies further concerns Specialists: Denies Preferred Pharmacy: [facility] Insurance: [email or web address] Prescription Benefit: Yes LNOK: Skip Nguyen (Uncle) Living Arrangements: Pt is homeless but has been staying at the [facility] at night and plans to return at the time of DC. See SW note ADLs/IADLs: Ind Transportation: Pt states that he walks as he cannot afford other forms of transportation. DME: Denies HHC/SNF: Denies Plan: Anticipate return to the [facility] once medically ready. Per the supervisor testing, pt does not currently qualify for home oxygen needs. Report given to [employer] CM and to f/u with transportation resources as necessary. Suresh Johnson RN, CM
--- NOTE | 2024-10-22 15:02 | DS.PCM_ITS ---
Providers Date of Admission: 10/21/24 Primary Care Physician: No Primary Care Phys Reason For Visit: RESPIRATORY FAILURE Diagnosis Discharge Diagnosis (1) Methamphetamine abuse: Status: Acute Code(s): F15.10 - Other stimulant abuse, uncomplicated (2) Acute asthma exacerbation: Status: Acute Code(s): J45.901 - Unspecified asthma with (acute) exacerbation Plan Acute hypoxic and hypercapnic respiratory failure * Secondary to acute exacerbation of asthma and pneumonia * Patient was on BiPAP at 1 point and then has since improved significantly down to room air. * on methylpred and BDs. * Patient did not require oxygen with home oxygen evaluation. * Will discharge with prednisone. Suspected pneumococcal pneumonia * RUL * resp, COVID/influenza/RSV negative. * check SCx. strep and legionella antigens negative. * PEP * Received CTX and azithromycin in the ED, reinitiated on the floor. Will discharge with Augmentin. . DVT prophylaxis?low molecular weight heparin Medications at Discharge Home Medications albuterol sulfate 90 mcg/actuation breath activated powder inhaler 2 inh inhalation Q6H PRN shortness of breath or wheezing #1 ea 09/07/24 amoxicillin 875 mg-potassium clavulanate 125 mg tablet 1 tab PO Q12H #10 tabs 10/22/24 prednisone 20 mg tablet 40 mg (2 x 20 mg) PO DAILY #10 tabs 10/22/24 Hospital Course Operations None Procedures None Summary of Care Provided Hospital Course: Greater than 30 minutes spent on discharge. Patient presents with acute respiratory failure. Patient was hypoxic in the field and had an ABG that showed elevated pCO2. Patient was placed on BiPAP and quickly improved. CTA of the chest showed no pulmonary embolism but right-sided right upper lobe infiltrate. Patient received azithromycin and ceftriaxone as well as started on steroids. Patient has improved and ambulatory pulse ox today show that he did not require any oxygen even with ambulation. Is unclear, the patient's drug and alcohol history, if that he may have ingested something such as a narcotic that may lead to respiratory depression. Drug screen was not performed here. Patient will be discharged with Augmentin, and prednisone. Patient takes albuterol at home. Medical Records Data Homelessness:: Sheltered Weight / BMI Weight Weight: 55 kg Body Mass Index (BMI) 19.0 ABG / Lab / Microbiology Data 10/22/24 05:33 10/22/24 05:33 Laboratory: Laboratory Results - last 24 hr 10/21/24 16:07: WBC 9.8, RBC 4.35 L, Hgb 13.8, Hct 41.5, MCV 95.4 H, MCH 31.7, MCHC 33.3, RDW Std Deviation 44.6 H, RDW Coeff of Bridger 12.6, Plt Count 362, MPV 9.3, Immature Gran % (Auto) 0.200, Neut % (Auto) 64.3, Lymph % (Auto) 20.6, Faulk % (Auto) 6.9, Eos % (Auto) 7.3 H, Baso % (Auto) 0.7, Absolute Neuts (auto) 6.3, Absolute Lymphs (auto) 2.02, Nucleated RBC % 0, D-Dimer Quant (PE/DVT) 1.14 H*, Sodium 142, Potassium 3.5, Chloride 101, Carbon Dioxide 37.0 H, Anion Gap 4 L, B UN 28 H, Creatinine 0.82, Estim Creat Clear Calc 90.07, Est GFR (MDRD) Af Amer 128, Est GFR (MDRD) Non-Af 106, BUN/Creatinine Ratio 34.1 H, Glucose 146 H, Calcium 9.3, Troponin I High Sens 8, B-Natriuretic Peptide 31.1 10/22/24 05:33: WBC 5.3, RBC 3.71 L, Hgb 11.9 L, Hct 35.4 L, MCV 95.4 H, MCH 32.1 H, MCHC 33.6, RDW Std Deviation 44.8 H, RDW Coeff of Bridger 12.9, Plt Count 264, MPV 9.5, Immature Gran % (Auto) 0.400, Neut % (Auto) 92.3 H, Lymph % (Auto) 6.1 L, Faulk % (Auto) 1.0, Eos % (Auto) 0.0, Baso % (Auto) 0.2, Absolute Neuts (auto) 4.9, Absolute Lymphs (auto) 0.32 L, Nucleated RBC % 0, Sodium 138, Potassium 4.2, Chloride 110 H, Carbon Dioxide 25.0, Anion Gap 4 L, BUN 22 H, C reatinine 0.63 L, Estim Creat Clear Calc 111.55, Est GFR (MDRD) Af Amer 173, Est GFR (MDRD) Non-Af 143, BUN/Creatinine Ratio 34.7 H, Glucose 179 H, Calcium 8.8 Microbiology: Microbiology 10/22/24 09:50 Urine, Clean Catch Legionella Antigen - Final 10/22/24 09:50 Urine, Clean Catch Streptococcus pneumoniae Antigen (M - Final 10/22/24 04:03 Mucosa - Nasopharyngeal Respiratory Panel (PCR) - Final 10/21/24 16:14 Mucosa - Nose SARS-CoV-2, Influenza & RSV (PCR) - Final ABG: ABG 10/21/24 16:27 Specimen Type ART Sample Site L Brach pH 7.34 L Bicarbonate Actual 35.7 H Total CO2 38 Base Excess 10 H O2 Saturation 100 H O2 % 60.0 ABG pCO2 66.3 H ABG pO2 343 H* Irvin Test Positive Respiration Rate 12 O2 Delivery Device BiPAP Vent Mode Not entered POC PEEP 6 Crit Call To/Read Back Yes Blood Gas Notified Whom MEKA Blood Gas Notified Time 16:29:44 Radiography Diagnostic Testing: Radiology Impression Chest X-Ray 10/21/24 16:30 IMPRESSION: No acute disease Electronically Signed: Andrew Jones MD at 17:16 EST , Chest CTA 10/21/24 17:25 IMPRESSION: 1. Infectious bronchiolitis at the right upper lobe with possible consolidative opacities more peripherally at the right upper lobe. 2. No PE. AIDOC was utilized to assist in identifying pertinent positive findings. Electronically Signed: Andrew Jones MD at 18:53 EST , D/C Instructions Discharge Diet: No restrictions DC O2, CPAP, BIPAP Needs RN Home O2 Qualification: Home O2 Qualification: Is the patient on home oxygen No 10/22/24 11:42 Home O2 Qualification: AT REST 1- Pulse Ox at rest 95 10/22/24 11:42 Home O2 Qualification: WITH AMBULATION 1- Pulse Ox with ambulation 93 10/22/24 11:42 1- Oxygen Flow Rate with 0 10/22/24 11:42 ambulation PSN CPAP & BiPAP: BiPAP & CPAP Settings per PSN Mode BiPAP 10/21/24 16:05 Bipap Delivery Device Face Mask 10/21/24 16:05 BiPAP Inspiratory Pressure 14 10/21/24 16:05 BiPAP Expiratory Pressure 6 10/21/24 16:05 BiPAP Rate 12 10/21/24 16:05 Fraction of Inspired Oxygen ( 40 10/21/24 17:05 FIO2) Home O2 Discharge instructions: No Meaningful Use Info Meaningful Use Meaningful Use Diagnoses (Choose all that apply): None applicable Ischemic Stroke Statin Dosing Therapy Reference: STATIN DOSE THERAPY REFERENCE: * Patients > 75 years receive moderate or high dose statin therapy. * Patients 75 years or YOUNGER should receive HIGH intensity statin dose unless contraindicated. You will be required to document reason for non-treatment if statin daily dose does not meet guidelines. HIGH DOSE STATIN THERAPY DAILY Atorvastatin > than or = to 40 mg Rosuvastatin > than or = to 20 mg Amlodipine + Atorvastatin > than or = to 2.5/40 mg Ezetimibe + Simvastatin 10/80 mg Simvastatin 80mg Discharge Plan Admission Admit Date/Time: 10/21/24 19:37 Primary Reason for Your Visit: pneumonia. Attending Provider: Graham Tolbert Primary Care Provider: Care Physician,No Primary Consulting Providers: Troy Monroy Discharge Orders/Prescriptions Prescriptions: New prednisone 20 mg tablet 40 mg PO DAILY Qty: 10 0RF amoxicillin-pot clavulanate 875-125 mg tablet 1 tab PO Q12H Qty: 10 0RF Continued albuterol sulfate 90 mcg/actuation aerosol powdr breath activated 2 inh inhalation Q6H PRN (Reason: shortness of breath or wheezing) Qty: 1 3RF Referrals / Follow Up: Care Physician,No Primary [Primary Care Provider] - Disposition Disposition (needs filled in before D/C Order can be placed): Home, Self Care Charges/Coding Visit Charges Inpatient E&M: 11300 Disch Hosp >30min
--- NOTE | 2024-10-22 15:44 | PHA.DC.MC.R ---
Pharmacy [facility] has performed discharge medication reconciliation and counseling for this patient. 1. AMOXICILLIN/CLAVULANATE 875MG/125MG 1T PO Q12 X 5 DAYS 2. PREDNISONE 40MG PO DAILYCM X 5 DAYS The patient's discharge medication list was reviewed for discrepancies and discrepancies were resolved. The patient was counseled on the following discharge medications and changes in medications for homegoing were reviewed. The Reason for Use, instructions for use, and potential side effects were reviewed for all new medications. The patient's questions regarding all of their medications were answered. The patient was able to verbally demonstrate an understanding of their discharge medications. Medications at Discharge Home Medications albuterol sulfate 90 mcg/actuation breath activated powder inhaler 2 inh inhalation Q6H PRN shortness of breath or wheezing #1 ea 09/07/24 amoxicillin 875 mg-potassium clavulanate 125 mg tablet 1 tab PO Q12H #10 tabs 10/22/24 prednisone 20 mg tablet 40 mg (2 x 20 mg) PO DAILY #10 tabs 10/22/24
--- NOTE | 2024-10-22 15:56 | CASEMGMT ---
Patient needs transportation back to [facility]. SW called [facility] van and they are not able to drive patient. ROMELIA called [facility] and arranged for patient to get picked up between 3:55p and 5:55p. ROMELIA notified pharmacist in charge owner, secretary to board of commissioners, RN, and patient. Patient stated he will tell the double bottom driver to stop by [facility] so he can get his prescriptions. Dali ALBERTO
--- NOTE | 2024-10-22 16:11 | CHAPLAIN ---
Type of Pastoral Visit _x__ Initial Visit ___ Follow-up Visit ___ On-call Visit ___ General Patient Visit ___ Spiritual Assessment ___ Family Conference ___ Bereavement ___ Rapid Response ___ Code Blue ___ Other (describe below) Pastoral Care Referral From _x__ Patient ___ Family ___ Nurse ___ Physician ___ Food And Drug Inspector ___ Certified Registered Dental Assistant ___ Other (describe below) Sacrament/Intervention _x__ Active listening ___ Anointing ___ Religious ___ Bereavement ___ Communion ___ Isamar exploration ___ _x__ Life review _x__ Prayer ___ Reconciliation ___ Sacrament of Sick _x__ Supportive presence ___ Wedding ___ Other (describe below) Pastoral Comments patient has been seen before on several occasions in previous admissions; pt is resting but easily awakens to his name; pt looks better and is able to carry on a conversation, allowing this client account specialist to sit at bedside and be present; this is a notable change from several previous meetings; pt gives some update on where and how he is living and coping with life; pt states that he is more spiritual now and getting help from other's spiritual lives; pt cannot articulate well what he means by that however pt being able to communicate and willingly is an improvement for him; pt is given words of affirmation to continue on his journey of spiritual discovery and to keep making good choices for himself; pt at this point looks away and becomes tearful; asked about his tears and if he wanted to talk about that, the patient tries to use words but is unable to express it; a few moments of silence with affirmation again of his better state of living; pt agrees to have a prayer given for his life and his health; pt again shows some tears; offer of future visits as pt desires is given
--- NOTE | 2024-10-22 20:03 | NURSING ---
This RN called [facility] regarding pt's ride to [facility] at appx 18:00. Per [employer], pt's ride had been cancelled d/t no cell phone number listed for pt. [employer] acid polymerization operator was informed that pt was homeless and had no cell phone or address listed. This RN set up transportation through [employer] via lift, with this RN cell phone listed as point of contact. [employer] acid polymerization operator called back and informed this RN that [employer] did not service [facility] and that [employer]'s water truck driver would not be available until 9PM. This RN was to update patient, but he was not in the room. GILBERT Brewster attempted to locate pt but was unable. Pt returned to his room and requested breathing tx and is to wait in room pending arrival of transportation. Rufus MA
--- NOTE | 2024-10-22 21:15 | NURSING ---
Called [facility] states they cancelled pts ride because there was no answer at the number they called. Discussed with pt states he doesn't need to go to the pharmacy just to the half-way and he already has the meds he needs. Called [facility] again to re set up transport. [facility] representative states we will get a call in 15 minutes from [facility].
--- NOTE | 2024-10-22 23:32 | NURSING ---
Texted dr rai and dr noble to inform pt is still here and likely to stay ovenight at this point d/t not able to get ride at this time. received call received from [facility] [employer] states they will resubmit information for ride [facility]bk.
--- NOTE | 2024-10-22 23:55 | NURSING ---
[facility] called given update that pt is still discharged and willing to go to facility once transport is available
[2024-10-23 01:39] VITALS: RESP 18
[2024-10-23] MEDS: Albuterol 2.5 MG/3 ML VIAL.NEB. INHALATION ×2 (01:40→07:08)
[2024-10-23 04:00] VITALS: BP 119/71; PULSE 87; RESP 16; TEMP 37; O2SAT 94
[2024-10-23 06:13] LABS: Absolute Lymphocyte Count 0.73 X10^3/uL (0.83-4.51); Absolute Neutrophil Count 11.4 X10^3/uL (2.0-7.7); Basophil# 0.01 X10^3/uL; Basophil% 0.1 % (0-1); Hematocrit 36.9 % (40-54); Hemoglobin 12.1 g/dL (13.0-16.5); Lymphocyte # 0.73 X10^3/ul (0.83-4.51); Lymphocyte % 5.7 % (19-41); Mean Corp Hgb Conc 32.8 g/dL (32-36); Mean Corpuscular Hgb 31.2 pg (27.0-32.0); Mean Corpuscular Volume 95.1 fL (80-94); Mean Platelet Vol. 9.6 fl (6.2-12.0); Monocyte# 0.53 X10^3/uL; Monocyte% 4.2 % (0-10); NRBC Flagged by Analyzer 0 % (0-5); Neutrophil # 11.42 X10^3/uL (2.7-7.7); Neutrophil % 89.5 % (47-70); Platelet Count 287 K/mm3 (150-450); RBC Distribution Width CV 13.1 % (11.6-14.6); RBC Distribution Width SD 45.7 fl (35.1-43.9); Red Blood Count 3.88 M/mm3 (4.6-6.2); White Blood Count 12.8 K/mm3 (4.4-11.0)
[2024-10-23 06:56] LABS: Anion Gap 5 (5-15); BUN 23 mg/dL (7-18); BUN/Creat Ratio 29.6 RATIO (10-20); Calcium,Total 9.3 mg/dL (8.5-10.1); Chloride 105 mmol/L (98-107); Creatinine, Serum 0.78 mg/dL (0.70-1.30); EST Glomerular Filtration Rate 113 mL/min (>60); Est Glom Filt Rate - Afr Amer 137 mL/min (>60); Glucose 143 mg/dL (74-106); Potassium 4.4 mmol/L (3.5-5.1); Sodium Level 138 mmol/L (136-145)
--- NOTE | 2024-10-23 08:54 | CASEMGMT ---
ROMELIA called [facility] van and they can take patient to [facility] this am. Patient needs to be at the main entrance in 5-6 minutes. ROMELIA notified RN, bellows charger assembler, and ACQUISITION SPECIALIST. Patient already has his d/c medications. Dali Walters [employer]AG [employer] DO[employer]
== END 2024-10-23 08:50 | disposition home or self-care (01) | DRG 133 ==
LOC: ED 16:44 → PCU 22:14
PROVIDERS: Admitting Provider Family Medicine; Emergency Provider Emergency Medicine; Referring Provider Family Medicine
DX: J96.01 Acute respiratory failure with hypoxia (principal); E43 Unspecified severe protein-calorie malnutrition; J13 Pneumonia due to Streptococcus pneumoniae; F15.10 Other stimulant abuse, uncomplicated; J45.901 Unspecified asthma with (acute) exacerbation; I10 Essential (primary) hypertension; J43.9 Emphysema, unspecified; J96.02 Acute respiratory failure with hypercapnia; K21.9 Gastro-esophageal reflux disease without esophagitis; Z11.52 Encounter for screening for COVID-19; Z87.891 Personal history of nicotine dependence; Z86.73 Personal history of transient ischemic attack (TIA), and cerebral infarction without residual deficits; Z68.1 Body mass index [BMI] 19.9 or less, adult
CPT/HCPCS: 36415; 36600; 71045; 71275; 80048; 82803; 83880; 84484; 85025; 85379; 87070; 87205; 87449; 87631; 87633; 93005; 94002; 94640; 94667; 94762; 97802; 99252; 99285; Q9967; A4216; G0463; J0696; J3475

== ENCOUNTER 2024-11-11 15:38 | Inpatient (IN) | payer MEDICAID, SELFPAY ==
[2024-11-11] VITALS (27 sets, daily range): BP systolic 104–149; BP diastolic 64–126; PULSE 65–112; RESP 4–30; TEMP 36.2–36.7; O2SAT 94–100; BMI 20.5; BMI 19.8
[2024-11-11] MEDS: Epi Pen (EQUIV) 0.3 MG Syringe IM (15:38)
--- NOTE | 2024-11-11 15:43 | EKG12_ITS ---
Test Reason : SOB Blood Pressure : */* mmHG Vent. Rate : 105 BPM Atrial Rate : 105 BPM P-R Int : 120 ms QRS Dur : 80 ms QT Int : 354 ms P-R-T Axes : 86 82 89 degrees QTcB Int : 467 ms Sinus tachycardia Right atrial enlargement Borderline ECG Confirmed by Salvador Martinez ([id number]), publication editor OMERO ROBLES ([id number]) on 11/12/2024 10:03:13 AM Referred By: Confirmed By: Salvador Martinez
--- NOTE | 2024-11-11 15:44 | ED.VIS.DYS ---
HPI History of Present Illness Chief Complaint: Shortness of Breath Detail of Chief Complaint: Shortness of breath Informant: patient Narrative Narrative: Patient presents via EMS with concern for shortness of breath. Apparently has a history of asthma. Initially unable to get much history given his respiratory status. Patient was apparently recently in the emergency department for same and admitted and required epinephrine as well as magnesium and was then subsequently discharged to home. PFSH PFSH Allergy/AdvReac Type Severity Reaction Status Date / Time No Known Allergies Allergy Verified 11/11/24 16:09 Social History Smoking Status: Never smoker ROS ROS ED Review of Systems ROS Unobtainable: other Constitutional Constitutional ED: Reports lethargy; Denies chills, fever(s), sweats or weight loss Eyes Eyes: Denies blurry vision, change in vision or diplopia ENT ENT ED: Denies rhinorrhea or sore throat Cardiovascular Cardiovascular: Denies chest pain, orthopnea or racing heartbeat Respiratory/Chest Respiratory/Chest: Reports dyspnea and dyspnea on exertion; Denies orthopnea or sputum Gastrointestinal Gastrointestinal: Denies abdominal pain, diarrhea, nausea or vomiting Genitourinary Genitourinary ED: Denies dysuria, hematuria or urinary frequency Musculoskeletal Musculoskeletal: Denies arthralgias, back pain, myalgias or neck pain Integumentary Denies abscess, Abrasions or rash Neurologic Neurologic: Denies headache(s) or weakness Psychiatric Psychiatric: Denies anxiety, depression or suicidal thoughts Endocrine Endocrinology: Denies polydipsia, polyphagia or polyuria Hematologic/Lymphatic Hematologic/Lymphatic: Denies easy bleeding, easy bruising or lymphadenopathy Allergic/Immunologic Allergic/Immunologic ED: Denies mouth swelling, tongue swelling or urticaria EXAM Physical Exam Const Vital Signs: 11/11/24 15:38 11/11/24 15:43 11/11/24 15:43 Temperature 97.1 F L Temperature Source Temporal Pulse Rate 97 106 H Respiratory Rate 24 L 24 H Respiratory Effort Respiratory Depth Respiratory Pattern Blood Pressure Blood Pressure Mean Pulse Ox 100 Oxygen Delivery Method Bi-pap Bi-pap Fraction of Inspired Oxygen (FIO2) 11/11/24 15:43 11/11/24 15:58 11/11/24 16:00 Temperature Temperature Source Pulse Rate 106 H 109 H 112 H Respiratory Rate 30 H 19 H 20 H Respiratory Effort Respiratory Depth Respiratory Pattern Blood Pressure 134/100 H Blood Pressure Mean 110 Pulse Ox 100 100 100 Oxygen Delivery Method Fraction of Inspired Oxygen (FIO2) 35 11/11/24 16:07 11/11/24 16:15 11/11/24 16:30 Temperature Temperature Source Pulse Rate 105 H Respiratory Rate 19 H Respiratory Effort Short of Breath Labored Accessory Muscle Use Retracting Respiratory Depth Shallow Respiratory Pattern Tachypnea Blood Pressure 148/103 H 137/86 H Blood Pressure Mean 117 102 Pulse Ox 97 Oxygen Delivery Method Bi-pap Fraction of Inspired Oxygen (FIO2) 11/11/24 16:42 11/11/24 16:45 11/11/24 17:00 Temperature Temperature Source Pulse Rate 95 92 Respiratory Rate 16 18 Respiratory Effort Respiratory Depth Respiratory Pattern Blood Pressure 125/87 H 128/84 H Blood Pressure Mean 100 95 Pulse Ox 96 96 Oxygen Delivery Method Fraction of Inspired Oxygen (FIO2) 25 Positive well nourished and well developed General Appearance ED: well developed and NAD HEENT Reports TM's clear and moist mucous membranes normocephalic and atraumatic; Negative for trauma or tenderness Tympanic Membrane ED: Yes TM's clear Eyes PERRL and EOMs intact bilaterally General Eye ED: Negative for pale conjunctiva or scleral icterus Neck no lymphadenopathy, supple and no JVD General: Negative for tenderness Chest Wall inspection of chest normal and palpation of chest normal Chest: Negative for tenderness Resp No normal respiratory effort and No clear to auscultation bilaterally Resp Narrative: Patient with some diminished breath sounds bilaterally and tachypnea. Accessory muscle use noted and retractions. Effort and Inspection: Negative for respiratory distress or pain with movement Auscultation: Negative for rhonchi, wheezes or diminished lung sounds Cardio regular rate, regular rhythm, S1 normal heart sound, S2 normal heart sound and no murmurs Peripheral Pulses: pulses 2+ throughout GI normal to inspection, nondistended, normoactive bowel sounds, soft to palpation, non-tender, non-distended and no masses Back/Spine no CVA tenderness and no thoracic nor lumbar tenderness Extremity normal to inspection General Extremety ED: Negative for edema General Extremity: Negative for edema Neuro oriented x3, CN's II-XII intact bilaterally, no sensory deficits noted and gait normal Sensorium / Orientation: awake, alert, oriented to person, oriented to place and oriented to time Motor Exam: strength 5/5 throughout and strength abnormal Psych mental status grossly normal Skin no rashes or lesions noted and no wounds MDM MDM MDM Narrative Medical decision making narrative: Patient presents via EMS with respiratory distress. EMS gave albuterol DuoNeb. He was given EpiPen here and was ordered magnesium as well as continued DuoNeb aerosol and Solu-Medrol IV. Patient was treated with BiPAP and DuoNeb aerosol. I did order IV magnesium and was started on Solu-Medrol. Multiple aerosols given. CBC with differential white 11.4 with hemoglobin 14.5 and platelet count of 400. Chemistries unremarkable. Patient had a chest x-ray that showed hyperinflation. EKG obtained showed sinus rhythm with rate of 105 bpm with right atrial enlargement. Blood gas obtained showed a pH of 7.31 with CO2 of 65 and a PaO2 of 182 and this was on BiPAP. Bicarb was 32. Patient did improve with BiPAP and treatments. Discussed with hospitalist will evaluate patient for admission to ICU. Lab Data Attestation: I reviewed the patient's lab results. Labs: Laboratory Results - last 24 hr 11/11/24 15:43 WBC 11.4 H RBC 4.61 Hgb 14.5 Hct 44.1 MCV 95.7 H MCH 31.5 MCHC 32.9 RDW Std Deviation 46.2 H RDW Coeff of Bridger 13.2 Plt Count 400 MPV 9.2 Immature Gran % (Auto) 0.300 Neut % (Auto) 67.3 Lymph % (Auto) 23.1 Geary % (Auto) 5.6 Eos % (Auto) 2.9 Baso % (Auto) 0.8 Absolute Neuts (auto) 7.7 Absolute Lymphs (auto) 2.64 Nucleated RBC % 0 Sodium 142 Potassium 4.0 Chloride 102 Carbon Dioxide 32.0 Anion Gap 9 BUN 19 H Creatinine 1.05 Estim Creat Clear Calc 70.10 Est GFR (MDRD) Af Amer TNP Est GFR (MDRD) Non-Af TNP BUN/Creatinine Ratio 18.1 Glucose 202 H Calcium 9.2 ABG Data ABG results: ABG 11/11/24 16:10 Specimen Type ART Sample Site L Radial pH 7.31 L Bicarbonate Actual 32.9 H Total CO2 35 Base Excess 7 H O2 Saturation 99 O2 % 35.0 ABG pCO2 65.3 H ABG pO2 183 H Irvin Test Positive O2 Delivery Device BiPAP Vent Mode Not entered POC PEEP 6 Radiography Diagnostic Testing: Clinical Impression(s) from Imaging Studies Chest X-Ray 11/11/24 16:01 IMPRESSION: Hyperinflation of the lung christopher. No focal infiltrate. Right apical pleural-parenchymal disease. Reading Location: [facility] 1 view chest x-ray obtained interpreted by myself as hyperinflation with no evidence of infiltrate or pneumothorax or acute disease process. Radiology felt there was right apical pleural-parenchymal disease. Critical Care Time Critical Care Time: Yes Critical care time (excluding procedures): 30-74 minutes, Including time spent:, Discussing w/Patient &/or Family/Instructor Ground Services, Discussing w/Consultants, Arranging Admission or Transfer, Performing Direct Patient Care at Bedside and - (30 minutes) Discharge Plan Triage Chief Complaint: Shortness of Breath ED Provider: Remberto Bernal Dx/Rx/DC Orders Clinical Impression: Asthma exacerbation, Respiratory failure Primary Care Provider: Care Physician,No Primary Referrals: Care Physician,No Primary [Primary Care Provider] - Print Language: Spanish Disposition Disposition: Acute Care [facility]
[2024-11-11] MEDS: Ipratropium/Albuterol Sulfate 3 ML AMPUL.NEB INHALATION ×4 (15:52→23:35)
[2024-11-11] MEDS: MethylPREDNISolone 125 MG/2 ML Vial IV (15:52)
[2024-11-11 15:56] LABS: Absolute Lymphocyte Count 2.64 X10^3/uL (0.83-4.51); Absolute Neutrophil Count 7.7 X10^3/uL (2.0-7.7); Basophil# 0.09 X10^3/uL; Basophil% 0.8 % (0-1); Eosinophil# 0.33 X10^3/uL; Eosinophils% 2.9 % (0-5); Hematocrit 44.1 % (40-54); Hemoglobin 14.5 g/dL (13.0-16.5); Lymphocyte # 2.64 X10^3/ul (0.83-4.51); Lymphocyte % 23.1 % (19-41); Mean Corp Hgb Conc 32.9 g/dL (32-36); Mean Corpuscular Hgb 31.5 pg (27.0-32.0); Mean Corpuscular Volume 95.7 fL (80-94); Mean Platelet Vol. 9.2 fl (6.2-12.0); Monocyte# 0.64 X10^3/uL; Monocyte% 5.6 % (0-10); NRBC Flagged by Analyzer 0 % (0-5); Neutrophil # 7.68 X10^3/uL (2.7-7.7); Neutrophil % 67.3 % (47-70); Platelet Count 400 K/mm3 (150-450); RBC Distribution Width CV 13.2 % (11.6-14.6); RBC Distribution Width SD 46.2 fl (35.1-43.9); Red Blood Count 4.61 M/mm3 (4.6-6.2); White Blood Count 11.4 K/mm3 (4.4-11.0)
[2024-11-11] MEDS: Albuterol 2.5 MG/3 ML VIAL.NEB. INHALATION (15:58)
--- NOTE | 2024-11-11 16:01 | RAD_ITS ---
PROCEDURE: CHEST 1 VIEW (PORTABLE) REASON FOR EXAM: Dyspnea. TECHNIQUE: Frontal view of the chest. COMPARISON: None. FINDINGS: The cardiac and mediastinal contours are normal. Hyperinflation of the lung christopher. Right apical pleural-parenchymal disease. No focal infiltrate, pleural effusion or pneumothorax. The visualized osseous structures demonstrate no acute abnormality. RAD/Chest 1 View (Portable) IMPRESSION: Hyperinflation of the lung christopher. No focal infiltrate. Right apical pleural-parenchymal disease. Reading Location: [id number]
[2024-11-11 16:07] LABS: Anion Gap 9 (5-15); BUN 19 mg/dL (7-18); BUN/Creat Ratio 18.1 RATIO (10-20); Calcium,Total 9.2 mg/dL (8.5-10.1); Chloride 102 mmol/L (98-107); Creatinine, Serum 1.05 mg/dL (0.70-1.30); Glucose 202 mg/dL (74-106); Sodium Level 142 mmol/L (136-145)
[2024-11-11 16:16] LABS: Allen Test Positive; Base Excess 7 mmol/L (-2 to +2); Bicarbonate 32.9 mmol/L (22-26); Blood Gas Specimen Type ART; Mode Not entered; O2 Delivery Device BiPAP; PEEP 6; PO2 183 mmHG (75-100); SITE L Radial; SO2 99 % (95-99); Total Carbon Dioxide 35 mmol/L; pCO2 65.3 mmHg (35-45); pH 7.31 (7.35-7.45)
[2024-11-11] MEDS: Magnesium Sulfate 2 GM in 0.9% Normal Saline (100mL Bag) 100 ML IV (16:19)
--- NOTE | 2024-11-11 16:43 | CPS ---
Pt is looking a lot better, This RT was able to wean bipap settings down at this time. Pt is resting on the bipap. turned lights off at this time
--- NOTE | 2024-11-11 17:15 | HP.PCM.HOS_ITS ---
HPI - General General Date of Admission: 11/11/24 Date of Service: 11/11/24 Chief Complaint: Shortness of breath HPI Narrative Patient has been admitted here under a different medical record number please see for further information MICHAEL KAUR, is a 48 M who presented to the emergency department at [facility] on 11/11/2024 with a chief complaint of shortness of breath. Patient was an extremis at the time of arrival and on BiPAP at the time of my evaluation so all my history was obtained from the ED department documentation. Evidently he has a history of asthma and does not smoke tobacco. He did shake his head when I asked him if he smoked marijuana. He evidently also utilizes methamphetamines and alcohol use however he is not drinking on a daily basis and his last drink was over 3 days ago now. He indicated he started having respiratory symptoms yesterday and they severely worsen today. He was placed on BiPAP immediately when he came to the emergency department and clinically seems to be improving. He did have a respiratory acidosis with hypoxic and hypercapnic respiratory failure at the time of arrival. He did report a cough that is dry and not productive. He had a recent hospitalization here in October and turned around quickly at that time. Vital signs on presentation showed a temperature of 97.1, heart rate was 106 212, respiratory rate was 19-30, blood pressure was 134/100 and pulse ox was 100% on BiPAP at 100%. No room air pulse ox was documented. CBC showed a leukocytosis with a white count 11.4 but no left shift. Chemistry panel was overtly unremarkable. Glucose was elevated at 202. He is not a known diabetic. ABG was obtained he has a respiratory acidosis with a pH of 7.31, pCO2 was 65.3, pO2 on BiPAP at 100% was 183. Chest x-ray shows hyperinflation with no focal infiltrate and right apical pleural/parenchymal disease. He did have a CTA back in October when he was admitted that did not show any masses or lesions but is consistent with bronchiectasis. COVID/flu/RSV were negative. Respiratory viral panel is pending. In the emergency department he was treated with aerosols, BiPAP, and steroids. [facility] Medical History ETOH abuse Methamphetamine abuse Asthma Depression Anxiety Allergy/AdvReac Type Severity Reaction Status Date / Time No Known Allergies Allergy Verified 11/11/24 16:09 Family History no significant family his no significant family history Surgical History no surgical history no surgical history Social History (Updated 11/11/24 @ 20:[address] Trang Valencia, DO) housing: homeless Smoking Status: Never smoker alcohol intake: current alcohol intake frequency: a few times a week substance use type: marijuana and amphetamines ROS Review of Systems ROS Unobtainable: other Details: Respiratory status is patient was on BiPAP Vital Signs Vital Signs Vital Signs: 11/11/24 15:38 11/11/24 15:43 11/11/24 15:43 Temperature 97.1 F L Temperature Source Temporal Pulse Rate 97 106 H Respiratory Rate 24 L 24 H Respiratory Effort Respiratory Depth Respiratory Pattern Blood Pressure Blood Pressure Mean Pulse Ox 100 Oxygen Delivery Method Bi-pap Bi-pap Fraction of Inspired Oxygen (FIO2) 11/11/24 15:43 11/11/24 15:58 11/11/24 16:00 Temperature Temperature Source Pulse Rate 106 H 109 H 112 H Respiratory Rate 30 H 19 H 20 H Respiratory Effort Respiratory Depth Respiratory Pattern Blood Pressure 134/100 H Blood Pressure Mean 110 Pulse Ox 100 100 100 Oxygen Delivery Method Fraction of Inspired Oxygen (FIO2) 35 11/11/24 16:07 11/11/24 16:15 11/11/24 16:30 Temperature Temperature Source Pulse Rate 105 H Respiratory Rate 19 H Respiratory Effort Short of Breath Labored Accessory Muscle Use Retracting Respiratory Depth Shallow Respiratory Pattern Tachypnea Blood Pressure 148/103 H 137/86 H Blood Pressure Mean 117 102 Pulse Ox 97 Oxygen Delivery Method Bi-pap Fraction of Inspired Oxygen (FIO2) 11/11/24 16:42 11/11/24 16:45 11/11/24 17:00 Temperature Temperature Source Pulse Rate 95 92 Respiratory Rate 16 18 Respiratory Effort Respiratory Depth Respiratory Pattern Blood Pressure 125/87 H 128/84 H Blood Pressure Mean 100 95 Pulse Ox 96 96 Oxygen Delivery Method Fraction of Inspired Oxygen (FIO2) 25 Weight Weight: 57.6 kg Body Mass Index (BMI) 20.5 Physical Exam Const alert; Negative for average body habitus, healthy appearing or well nourished Constitutional Narrative: Cachectic appearing, middle-aged, white male, sitting up in bed on BiPAP continuously, tachypneic but no extremis at this time, shakes head to answer questions as able but difficult to understand and talk, appears underweight and malnourished General Appearance: cooperative HEENT normocephalic, head/scalp atraumatic and hearing grossly normal bilaterally HEENT Narrative: BiPAP in place Eyes conjunctivae normal Eyes Narrative: No scleral icterus Neck no lymphadenopathy and supple Neck Narrative: Trachea midline, no thyroid enlargement Resp No normal respiratory effort, no retractions, no use of accessory muscles and No clear to auscultation bilaterally Resp Narrative: Diffuse scattered inspiratory and expiratory wheezes with diminished air movement Auscultation: wheezes; Negative for rales or rhonchi Cardio regular rhythm, S1 normal heart sound, S2 normal heart sound, no murmurs, no rub, no gallops and no clicks Cardio Narrative: Mild tachycardia GI normal to inspection, nondistended, normoactive bowel sounds, soft to palpation and non-tender GI Narrative: Scaphoid abdomen Extremity no clubbing, cyanosis or edema Extremity Narrative: Decreased lean muscle mass Neuro moves all extremities and no focal motor deficits Neuro Narrative: Follow commands consistently Sensorium / Orientation: awake and alert Psych Psych Narrative: Currently calm Results Lab / Micro Data 11/11/24 15:43 11/11/24 15:43 Labs: Laboratory Results - last 24 hr 11/11/24 15:43: WBC 11.4 H, RBC 4.61, Hgb 14.5, Hct 44.1, MCV 95.7 H, MCH 31.5, MCHC 32.9, RDW Std Deviation 46.2 H, RDW Coeff of Bridger 13.2, Plt Count 400, MPV 9.2, Immature Gran % (Auto) 0.300, Neut % (Auto) 67.3, Lymph % (Auto) 23.1, Dunn % (Auto) 5.6, Eos % (Auto) 2.9, Baso % (Auto) 0.8, Absolute Neuts (auto) 7.7, Absolute Lymphs (auto) 2.64, Nucleated RBC % 0, Sodium 142, Potassium 4.0, Chloride 102, Carbon Dioxide 32.0, Anion Gap 9, BUN 19 H, Creatinine 1.05, Estim Creat Clear Calc 70.10, Est GFR (MDRD) Af Amer TNP, Est GFR (MDRD) Non-Af TNP, BUN/Creatinine Ratio 18.1, Glucose 202 H, Calcium 9.2 ABG Data ABG results: ABG 11/11/24 16:10 Specimen Type ART Sample Site L Radial pH 7.31 L Bicarbonate Actual 32.9 H Total CO2 35 Base Excess 7 H O2 Saturation 99 O2 % 35.0 ABG pCO2 65.3 H ABG pO2 183 H Irvin Test Positive O2 Delivery Device BiPAP Vent Mode Not entered POC PEEP 6 Imaging Radiology Impression Chest X-Ray 11/11/24 16:01 IMPRESSION: Hyperinflation of the lung christopher. No focal infiltrate. Right apical pleural-parenchymal disease. Reading Location: [facility] Assessment & Plan Assessment/Plan (1) Asthma exacerbation: (2) Acute respiratory failure with hypoxia and hypercapnia: (3) Leukocytosis: (4) Respiratory acidosis: (5) Hyperglycemia: PLAN: Plan Acute hypoxic and hypercapnic respiratory failure secondary to acute exacerbation of asthma -Chest x-ray does not show any infiltrate -Patient states he is a never smoker but does use marijuana intermittently -COVID/flu/RSV negative -Respiratory viral panel is pending -No significant sputum production but given the fact that he is asthma with respiratory failure requiring BiPAP we will start him on Levaquin for antimicrobial coverage -Sputum culture if able -I-S and PEP therapy ordered with Acapella 10 times every 2 hours while awake -Scheduled and as needed aerosols -Steroids 40 IV every 8 -Continue BiPAP and when stabilizes we will transition to nasal cannula as able Hyperglycemia -Blood sugar on presentation was 202 -Will check hemoglobin A1c -May be stress response -Hold off on insulin coverage for now -If A1c is in diabetic range may need to initiate therapy while on steroids Suspected malnutrition -Patient is underweight-with temporal wasting and reduced lean body mass -Start supplements -Dietitian consulted Leukocytosis -White count slightly elevated with no left shift -Anticipate up trended due to steroids -Repeat lab in a.m. Methamphetamine abuse/alcohol abuse/THC use -Patient's not been drinking much lately and has not had any alcohol in 3 days -start multivitamin -Does report methamphetamine use in the last 3 days -Recommend cessation of all substances Depression/anxiety/bipolar disorder -Patient takes no regular medications for this Bilateral inguinal hernia -Outpatient follow-up History of GERD -Patient on no medication at this time -Monitor for symptoms DVT prophylaxis -Subcu Lovenox 40 daily CODE STATUS -Full code as verified at the time of admission Charges/Coding Visit Charges Inpatient E&M: 48763 Init Hosp L2
[2024-11-11] MEDS: levoFLOXacin 750 MG Tablet PO (18:38)
[2024-11-11] MEDS: guaiFENesin 1,200 MG Tablet 1200 MG PO (20:12)
[2024-11-11] MEDS: Ensure Plus High Protein 120 ML LIQUID PO (20:12)
[2024-11-11] MEDS: Acetaminophen 500 MG Tablet 1000 MG PO (20:12)
[2024-11-11] MEDS: 0.9% Saline Lock 10 ML Syringe IV (20:12)
[2024-11-12] VITALS (16 sets, daily range): BP systolic 98–133; BP diastolic 60–76; PULSE 60–90; RESP 13–20; TEMP 36.1–37.1; O2SAT 93–97; BMI 19.8
[2024-11-12] MEDS: Ipratropium/Albuterol Sulfate 3 ML AMPUL.NEB INHALATION ×3 (03:20→11:04)
[2024-11-12 03:22] LABS: Absolute Lymphocyte Count 0.26 X10^3/uL (0.83-4.51); Absolute Neutrophil Count 7.1 X10^3/uL (2.0-7.7); Basophil# 0.01 X10^3/uL; Basophil% 0.1 % (0-1); Hematocrit 35.6 % (40-54); Hemoglobin 12.2 g/dL (13.0-16.5); Lymphocyte # 0.26 X10^3/ul (0.83-4.51); Lymphocyte % 3.5 % (19-41); Mean Corp Hgb Conc 34.3 g/dL (32-36); Mean Corpuscular Hgb 31.9 pg (27.0-32.0); Mean Platelet Vol. 9.3 fl (6.2-12.0); Monocyte# 0.11 X10^3/uL; Monocyte% 1.5 % (0-10); NRBC Flagged by Analyzer 0 % (0-5); Neutrophil # 7.11 X10^3/uL (2.7-7.7); Neutrophil % 94.5 % (47-70); POSITIVE DIFFERENTIAL YES; Platelet Count 267 K/mm3 (150-450); RBC Distribution Width CV 13.3 % (11.6-14.6); RBC Distribution Width SD 45.3 fl (35.1-43.9); Red Blood Count 3.83 M/mm3 (4.6-6.2); White Blood Count 7.5 K/mm3 (4.4-11.0)
[2024-11-12 03:50] LABS: AST(SGOT) 18 U/L (15-37); Alanine Aminotransfer ALT/SGPT 30 U/L (16-61); Albumin, Serum 3.2 g/dL (3.2-5.0); Alkaline Phosphatase 41 U/L (45-117); Anion Gap 8 (5-15); BUN 22 mg/dL (7-18); BUN/Creat Ratio 28.2 RATIO (10-20); Calcium,Total 8.8 mg/dL (8.5-10.1); Chloride 106 mmol/L (98-107); Creatinine, Serum 0.78 mg/dL (0.70-1.30); EST Glomerular Filtration Rate 112 mL/min (>60); Est Glom Filt Rate - Afr Amer 136 mL/min (>60); Estimated Creatinine Clearance 91.57 ml/min; Globulin 3.2 g/dL (2.2-4.2); Glucose 197 mg/dL (74-106); Magnesium 2.1 mg/dL (1.6-2.6); Phosphorus 2.9 mg/dL (2.5-4.9); Potassium 3.9 mmol/L (3.5-5.1); Protein, Total 6.4 g/dL (6.4-8.2); Sodium Level 139 mmol/L (136-145)
[2024-11-12] MEDS: levoFLOXacin 750 MG Tablet PO (05:12)
[2024-11-12] MEDS: 0.9% Saline Lock 10 ML Syringe IV (05:12)
[2024-11-12] MEDS: Acetaminophen 500 MG Tablet 1000 MG PO (05:12)
--- NOTE | 2024-11-12 07:02 | PCM.PN.HOSP ---
Reason for Visit Reason for Visit: Diagnoses Elevated white blood cell count, unspecified (11/11/24) Other acidosis (11/11/24) Unspecified asthma with (acute) exacerbation (11/11/24) Acute respiratory failure with hypoxia (11/11/24) Acute respiratory failure with hypercapnia (11/11/24) Hyperglycemia, unspecified (11/11/24) Subjective Subjective Breathing better. Now on room air. Has had episodes similar to this recently gets worse. Still feels that he is wheezing. 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 States that he previously ran out of his inhaler. Objective Data Objective Data Vital Signs: Vital Signs Temp Pulse Resp BP Pulse Ox O2 Del Method O2 Flow Rate 36.5 C L 64 14 109/63 96 Room Air 2 11/12/24 05:00 11/12/24 06:00 11/12/24 06:00 11/12/24 06:00 11/12/24 06:00 11/12/24 06:00 11/11/24 20:25 FiO2 11/11/24 16:42 Oxygen Flow Rate (L/min) 2 Oxygen Delivery Method Room Air Weight: 56.1 kg Body Mass Index (BMI) 19.8 Intake & Output: Intake and Output for Last 24 Hours 11/10/24 11/11/24 11/12/24 23:59 23:59 23:59 Intake Total 504 / 504 400 / 400 Output Total 500 / 500 450 / 450 Balance -50 / -50 Lab / Micro Data 11/12/24 03:00 11/12/24 03:00 Labs: Laboratory Results - last 24 hr 11/11/24 15:43: WBC 11.4 H, RBC 4.61, Hgb 14.5, Hct 44.1, MCV 95.7 H, MCH 31.5, MCHC 32.9, RDW Std Deviation 46.2 H, RDW Coeff of Bridger 13.2, Plt Count 400, MPV 9.2, Immature Gran % (Auto) 0.300, Neut % (Auto) 67.3, Lymph % (Auto) 23.1, Terry % (Auto) 5.6, Eos % (Auto) 2.9, Baso % (Auto) 0.8, Absolute Neuts (auto) 7.7, Absolute Lymphs (auto) 2.64, Nucleated RBC % 0, Sodium 142, Potassium 4.0, Chloride 102, Carbon Dioxide 32.0, Anion Gap 9, BUN 19 H, Creatinine 1.05, Estim Creat Clear Calc 70.10, Est GFR (MDRD) Af Amer TNP, Est GFR (MDRD) Non-Af TNP, BUN/Creatinine Ratio 18.1, Glucose 202 H, Hemoglobin A1c 6.0 H, Calcium 9.2 11/12/24 03:00: WBC 7.5, RBC 3.83 L, Hgb 12.2 L, Hct 35.6 L, MCV 93.0, MCH 31.9, MCHC 34.3, RDW Std Deviation 45.3 H, RDW Coeff of Bridger 13.3, Plt Count 267, MPV 9.3, Immature Gran % (Auto) 0.400, Neut % (Auto) 94.5 H, Lymph % (Auto) 3.5 L, Terry % (Auto) 1.5, Eos % (Auto) 0.0, Baso % (Auto) 0.1, Absolute Neuts (auto) 7.1, Absolute Lymphs (auto) 0.26 L, Nucleated RBC % 0, Sodium 139, Potassium 3.9, Chloride 106, Carbon Dioxide 25.0, Anion Gap 8, BUN 22 H, Creatinine 0.78, Estim Creat Clear Calc 91.57, Est GFR (MDRD) Af Amer 136, Est GFR (MDRD) Non-Af 112, BUN/Creatinine Ratio 28.2 H, Glucose 197 H, Calcium 8.8, Phosphorus 2.9, Magnesium 2.1, Total Bilirubin 0.30, AST 18, ALT 30, Alkaline Phosphatase 41 L, Total Protein 6.4, Albumin 3.2, Globulin 3.2, Albumin/Globulin Ratio 1.0 Micro: Microbiology 11/11/24 17:58 Mucosa - Nasopharyngeal Respiratory Panel (PCR) - Final 11/11/24 16:33 Mucosa - Nose SARS-CoV-2, Influenza & RSV (PCR) - Final ABG Data ABG results: ABG 11/11/24 16:10 Specimen Type ART Sample Site L Radial pH 7.31 L Bicarbonate Actual 32.9 H Total CO2 35 Base Excess 7 H O2 Saturation 99 O2 % 35.0 ABG pCO2 65.3 H ABG pO2 183 H Irvin Test Positive O2 Delivery Device BiPAP Vent Mode Not entered POC PEEP 6 Radiography Diagnostic Testing: Radiology Impression Chest X-Ray 11/11/24 16:01 IMPRESSION: Hyperinflation of the lung christopher. No focal infiltrate. Right apical pleural-parenchymal disease. Reading Location: [facility] Physical Exam Const alert and no apparent distress Constitutional Narrative: Up at side of the bed eating lunch. No respiratory distress. No conversational dyspnea. HEENT head/scalp atraumatic and moist oral mucous membranes Resp normal respiratory effort and no retractions Resp Narrative: Bilateral wheezes Cardio regular rate, regular rhythm, S1 normal heart sound and S2 normal heart sound GI normal to inspection, nondistended, normoactive bowel sounds, soft to palpation, non-tender and non-distended Extremity normal to inspection and full ROM Neuro Sensorium / Orientation: awake and alert Assessment & Plan Assessment/Plan (1) Asthma exacerbation: (2) Acute respiratory failure with hypoxia and hypercapnia: (3) Hyperglycemia: PLAN: Plan Acute hypoxic and hypercapnic respiratory failure secondary to acute exacerbation of asthma COVID/flu/RSV, respiratory panel negative was on BiPAP, now on room air. Check home oxygen evaluation. Continue steroids and BDs. Will discharge for patient to continue with his albuterol and steroids. Recommend that you do follow-up with pulmonology. Hyperglycemia likley reactive given respiratory distress and now steroids. Likely has DM2. Advised dietary restrictions. I would have significant concerns about the patient using glucometer given perceived reluctance utilizing it. Patient will need a primary care doctor to follow-up with the furthering foresees measures. Homelessness: Complicates long-term care and recovery. Social work case management to assist. Suspected malnutrition, ruled out BMI 20 Polysubstance abuse: complicates care and recovery. Methamphetamine abuse/alcohol abuse/THC use DVT prophylaxis -Subcu Lovenox 40 daily
[2024-11-12] MEDS: Ensure Plus High Protein 120 ML LIQUID PO (08:31)
[2024-11-12] MEDS: Enoxaparin 40 MG/0.4 ML Syringe SC (08:31)
[2024-11-12] MEDS: guaiFENesin 1,200 MG Tablet 1200 MG PO (08:32)
--- NOTE | 2024-11-12 10:14 | CASEMGMT ---
Social Work SW met w/pt to complete the SDOH. Pt declined resources as was given resources when here in October, and still has them. Pt is still without housing, alternates between staying at [facility] and a relative's home nearby. SW asked about pt's alcohol and drug use, pt vague in answer but may still be using. Pt will need transportation wherever is he is going at discharge, will see when pt is ready for d/c if the hospital van is available. SW offered to make an appt at [facility], as they can help w/housing. Pt declined to have SW do this. SW did encourage pt to go to [facility] when able as they do have walk in hours. Pt declines being suicidal at this time, but is having a difficult time. Support offered. SW remains available should pt want resources while here, and can check on the hospital van to take pt where he needs to go once discharged. BEBETO Nicholson
--- NOTE | 2024-11-12 11:40 | PCM.DC.SUM ---
Providers Date of Admission: 11/11/24 Primary Care Physician: No Primary Care Phys Reason For Visit: ACUTE HYPOXIC AND HYPERCAPNIC RESPIRATORY FAILURE Diagnosis Discharge Diagnosis (1) Asthma exacerbation: Status: Acute Code(s): J45.901 - Unspecified asthma with (acute) exacerbation (2) Acute respiratory failure with hypoxia and hypercapnia: Status: Acute Code(s): J96.01 - Acute respiratory failure with hypoxia; J96.02 - Acute respiratory failure with hypercapnia (3) Hyperglycemia: Status: Acute Code(s): R73.9 - Hyperglycemia, unspecified Plan Acute hypoxic and hypercapnic respiratory failure secondary to acute exacerbation of asthma COVID/flu/RSV, respiratory panel negative was on BiPAP, now on room air. Check home oxygen evaluation. Continue steroids and BDs. Will discharge for patient to continue with his albuterol and steroids. Recommend that you do follow-up with pulmonology. Hyperglycemia likley reactive given respiratory distress and now steroids. Likely has DM2. Advised dietary restrictions. I would have significant concerns about the patient using glucometer given perceived reluctance utilizing it. Patient will need a primary care doctor to follow-up with the furthering foresees measures. Homelessness: Complicates long-term care and recovery. Social work case management to assist. Suspected malnutrition, ruled out BMI 20 Polysubstance abuse: complicates care and recovery. Methamphetamine abuse/alcohol abuse/THC use DVT prophylaxis -Subcu Lovenox 40 daily Medications at Discharge Home Medications albuterol sulfate 90 mcg/actuation aerosol inhaler 1 puff inhalation Q6H PRN shortness of breath or wheezing #8.5 grams 11/12/24 guaifenesin 1,200 mg tablet, extended release 12 hr (Mucus Relief ER) 1,200 mg PO BID #10 tabs 11/12/24 multivitamin 1 tab PO LUNCH #0 tabs 11/12/24 prednisone 20 mg tablet 40 mg (2 x 20 mg) PO DAILY #10 tabs 11/12/24 Hospital Course Operations None Procedures None Summary of Care Provided Minutes Spent on Discharge: 32 Hospital Course: Patient presents with acute hypoxic and hypercapnic respiratory failure secondary to asthma exacerbation. Patient was placed on BiPAP and improved rapidly to the point where he was on room air. Ambulatory pulse ox was performed and patient did very well with that. Patient said that he ran out of his albuterol before coming in here. He still has wheezes so patient has been on steroids and will continue that with prednisone burst upon discharge. I advised patient follow-up with pulmonary as outpatient. Patient did have hyperglycemia. I am not going to be discharging him with a glucometer given the concern for reluctance of use. Do recommend the patient follow with primary care doctor to further enforce these measures. His hemoglobin A1c was 6 setting is reasonable not to continue with that but courage dietary measures. Medical Records Data Homelessness:: Sheltered Weight / BMI Weight Weight: 56.1 kg Body Mass Index (BMI) 19.8 ABG / Lab / Microbiology Data 11/12/24 03:00 11/12/24 03:00 Laboratory: Laboratory Results - last 24 hr 11/11/24 15:43: WBC 11.4 H, RBC 4.61, Hgb 14.5, Hct 44.1, MCV 95.7 H, MCH 31.5, MCHC 32.9, RDW Std Deviation 46.2 H, RDW Coeff of Bridger 13.2, Plt Count 400, MPV 9.2, Immature Gran % (Auto) 0.300, Neut % (Auto) 67.3, Lymph % (Auto) 23.1, Whitman % (Auto) 5.6, Eos % (Auto) 2.9, Baso % (Auto) 0.8, Absolute Neuts (auto) 7.7, Absolute Lymphs (auto) 2.64, Nucleated RBC % 0, Sodium 142, Potassium 4.0, Chloride 102, Carbon Dioxide 32.0, Anion Gap 9, BUN 19 H, Creatinine 1.05, Estim Creat Clear Calc 70.10, Est GFR (MDRD) Af Amer TNP, Est GFR (MDRD) Non-Af TNP, BUN/Creatinine Ratio 18.1, Glucose 202 H, Hemoglobin A1c 6.0 H, Calcium 9.2 11/12/24 03:00: WBC 7.5, RBC 3.83 L, Hgb 12.2 L, Hct 35.6 L, MCV 93.0, MCH 31.9, MCHC 34.3, RDW Std Deviation 45.3 H, RDW Coeff of Bridger 13.3, Plt Count 267, MPV 9.3, Immature Gran % (Auto) 0.400, Neut % (Auto) 94.5 H, Lymph % (Auto) 3.5 L, Whitman % (Auto) 1.5, Eos % (Auto) 0.0, Baso % (Auto) 0.1, Absolute Neuts (auto) 7.1, Absolute Lymphs (auto) 0.26 L, Nucleated RBC % 0, Sodium 139, Potassium 3.9, Chloride 106, Carbon Dioxide 25.0, Anion Gap 8, BUN 22 H, Creatinine 0.78, Estim Creat Clear Calc 91.57, Est GFR (MDRD) Af Amer 136, Est GFR (MDRD) Non-Af 112, BUN/Creatinine Ratio 28.2 H, Glucose 197 H, Calcium 8.8, Phosphorus 2.9, Magnesium 2.1, Total Bilirubin 0.30, AST 18, ALT 30, Alkaline Phosphatase 41 L, Total Protein 6.4, Albumin 3.2, Globulin 3.2, Albumin/Globulin Ratio 1.0 Microbiology: Microbiology 11/11/24 17:58 Mucosa - Nasopharyngeal Respiratory Panel (PCR) - Final 11/11/24 16:33 Mucosa - Nose SARS-CoV-2, Influenza & RSV (PCR) - Final ABG: ABG 11/11/24 16:10 Specimen Type ART Sample Site L Radial pH 7.31 L Bicarbonate Actual 32.9 H Total CO2 35 Base Excess 7 H O2 Saturation 99 O2 % 35.0 ABG pCO2 65.3 H ABG pO2 183 H Irvin Test Positive O2 Delivery Device BiPAP Vent Mode Not entered POC PEEP 6 Radiography Diagnostic Testing: Radiology Impression Chest X-Ray 11/11/24 16:01 IMPRESSION: Hyperinflation of the lung christopher. No focal infiltrate. Right apical pleural-parenchymal disease. Reading Location: [id number] Instructions Discharge Diet: Carb Control Diet (Avoid sugary beverages including juices.) DC O2, CPAP, BIPAP Needs RN Home O2 Qualification: Home O2 Qualification: Is the patient on home oxygen No 11/12/24 08:49 Home O2 Qualification: AT REST 1- Pulse Ox at rest 94 11/12/24 08:49 Home O2 Qualification: WITH AMBULATION 1- Pulse Ox with ambulation 95 11/12/24 08:49 1- Oxygen Flow Rate with 0 11/12/24 08:49 ambulation PSN CPAP & BiPAP: BiPAP & CPAP Settings per PSN Mode BiPAP 11/11/24 15:43 Bipap Delivery Device Face Mask 11/11/24 15:43 BiPAP Inspiratory Pressure 12 11/11/24 16:42 BiPAP Expiratory Pressure 6 11/11/24 16:42 BiPAP Rate 4 11/11/24 16:42 Fraction of Inspired Oxygen ( 11/12/24 11:00 FIO2) Home O2 Discharge instructions: No Meaningful Use Info Meaningful Use Meaningful Use Diagnoses (Choose all that apply): None applicable Ischemic Stroke Statin Dosing Therapy Reference: STATIN DOSE THERAPY REFERENCE: * Patients > 75 years receive moderate or high dose statin therapy. * Patients 75 years or YOUNGER should receive HIGH intensity statin dose unless contraindicated. You will be required to document reason for non-treatment if statin daily dose does not meet guidelines. HIGH DOSE STATIN THERAPY DAILY Atorvastatin > than or = to 40 mg Rosuvastatin > than or = to 20 mg Amlodipine + Atorvastatin > than or = to 2.5/40 mg Ezetimibe + Simvastatin 10/80 mg Simvastatin 80mg Discharge Plan Admission Admit Date/Time: 11/11/24 17:09 Primary Reason for Your Visit: Asthma exacerbation Attending Provider: Graham Tolbert Primary Care Provider: Care Physician,No Primary Consulting Providers: Trang Valencia Discharge Orders/Prescriptions Prescriptions: New multivitamin Tablet 1 tab PO LUNCH Qty: 0 0RF guaifenesin [Mucus Relief ER] 1,200 mg Tablet Extended Release 12hr 1,200 mg PO BID Qty: 10 0RF albuterol sulfate 90 mcg/actuation HFA aerosol inhaler 1 puff inhalation Q6H PRN (Reason: shortness of breath or wheezing) Qty: 8.5 0RF prednisone 20 mg tablet 40 mg PO DAILY Qty: 10 0RF Referrals / Follow Up: [facility] [Provider Group] - Within 1 [facility] - Within 2 Weeks Care Physician,No Primary [Primary Care Provider] - Disposition Disposition (needs filled in before D/C Order can be placed): Home, Self Care Charges/Coding Visit Charges Inpatient E&M: 76090 Disch Hosp >30min
--- NOTE | 2024-11-12 11:47 | CASEMGMT ---
Addendum entered by Brianna Beal 11/12/24 11:51: Social Work The hospital van can pick pt up at 1:45 at the main entrance. SW let his RN know, she is going to pt's room now and will let him know. BEBETO Nicholson Original Note: Social Work As per physician, pt can be discharged today. SW spoke w/pt, he is going to [address] [place] [address]. ROMELIA called the hospital van, Gene to call SW back with a time. BEBETO Nicholson
--- NOTE | 2024-11-12 12:40 | CASEMGMT ---
Readmission Note: Patient has been admitted here under a different medical record number. Index: 10/21/24-10/23/24. Dx: RF Readmission: 11/11/24. Dx: Acute Hypoxic and Hypercapnic RF Pt is homeless and has a history of polysubstance abuse. From index admission, the pt discharged to the [facility]. The patient re-presents to [facility] ER with SOB. See H&P. Pt was admitted to the ICU for further management. See ROMELIA notes. The patient's plan moving forward is to DC to his relative's home today. ROMELIA has set up transportation through [facility] transportation van. ROMELIA reports that they have provided the pt with the necessary resources. The pt did not qualify for home oxygen. The pt has [facility] PCP information and was advised to f/u with a PCP as well as [facility] per Dr. Tolbert.
--- NOTE | 2024-11-12 12:52 | CHAPLAIN ---
Type of Pastoral Visit _x__ Initial Visit ___ Follow-up Visit ___ On-call Visit ___ General Patient Visit ___ Spiritual Assessment ___ Family Conference ___ Bereavement ___ Rapid Response ___ Code Blue ___ Other (describe below) Pastoral Care Referral From _x__ Patient ___ Family ___ Nurse ___ Physician ___ Supervisor [employer] ___ Medical Sales Representative ___ Other (describe below) Sacrament/Intervention _x__ Active listening ___ Anointing ___ Hindu ___ Bereavement ___ Communion ___ Isamar exploration ___ ___ Life review _x__ Prayer ___ Reconciliation ___ Sacrament of Sick _x__ Supportive presence ___ Wedding ___ Other (describe below) Pastoral Comments This patient has been seen many times and even most recently in a previous admission; pt is awake and watching a TV program but with no sound; pt is greeted and he acknowledges 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
== END 2024-11-12 13:30 | disposition home or self-care (01) | DRG 133 ==
LOC: ED 17:18 → ICU 17:30
PROVIDERS: Admitting Provider Internal Medicine; Emergency Provider Emergency Medicine
DX: J96.02 Acute respiratory failure with hypercapnia (principal); E87.29 Other acidosis; F15.10 Other stimulant abuse, uncomplicated; J45.901 Unspecified asthma with (acute) exacerbation; F10.10 Alcohol abuse, uncomplicated; J96.01 Acute respiratory failure with hypoxia; K40.20 Bilateral inguinal hernia, without obstruction or gangrene, not specified as recurrent; Z59.00 Homelessness unspecified; R73.9 Hyperglycemia, unspecified; Z11.52 Encounter for screening for COVID-19; R63.6 Underweight; Z68.20 Body mass index [BMI] 20.0-20.9, adult; Z79.899 Other long term (current) drug therapy
CPT/HCPCS: 36600; 71045; 80048; 80053; 82803; 83036; 83735; 84100; 85025; 87631; 87633; 93005; 94002; 94640; 94668; 94762; 97802; 99252; 99285; A4216; G0463; J3475

== ENCOUNTER 2024-11-20 15:33 | Emergency (ER) | payer MEDICAID, SELFPAY ==
[2024-11-20 15:34] VITALS: BP 111/81; PULSE 98; RESP 18; TEMP 36.8; O2SAT 96; BMI 20.8
--- NOTE | 2024-11-20 15:35 | ED.RN ---
PT STATED HE DID NOT WANT TO BE SEEN A PATIENT AND ONLY WANTED REFILL ON INHALER.
--- NOTE | 2024-11-20 16:52 | EDS_ITS ---
HPI History of Present Illness Chief Complaint: Meds Only Informant: patient Onset/Context/Timing Onset: Yesterday Context: Gradual Onset Timing: Continuous Quality: Wheezing Location: Chest Worsened by: Nothing Relieved by: Nothing Narrative Narrative: Patient presents requesting refill of her albuterol inhaler. Patient states he does not have a primary care physician to follow-up with. Patient states he ran out of his inhaler last night. Patient states he feels like he is starting to have some wheezing again today. Patient denies any fevers or chills. Patient denies any nausea or vomiting. Patient denies any chest pain. Patient denies any shortness of breath. Patient denies any cough. [facility] Medical History ETOH abuse Methamphetamine abuse Asthma Depression Anxiety Methamphetamine abuse Ankle fracture, left Bipolar disorder Depression Anxiety Past history of chewing tobacco use Asthma with COPD Anxiety and depression Inguinal hernia bilateral, non-recurrent Hypertension Stroke/cerebrovascular accident Alcohol abuse Bulla of lung GERD (gastroesophageal reflux disease) Home Medications ?Medication ?Instructions ?Recorded ?Last Taken ?Type albuterol sulfate 90 mcg/actuation 2 inh inhalation Q6 H PRN shortness 09/07/24 10/21/24 Rx breath activated powder inhaler of breath or wheezing #1 ea amoxicillin 875 mg-potassium 1 tab PO Q12H #10 tabs Unknown Rx clavulanate 125 mg tablet prednisone 20 mg tablet 40 mg (2 x 20 mg) PO DAILY # 10 tabs 10/22/24 Unknown Rx guaifenesin 1,200 mg tablet, 1,200 mg PO BID #10 tabs 11/12/24 Unknown Rx extended release 12 hr (Mucus Relief ER) multivitamin 1 tab PO LUNCH #0 tabs 11/12 Unknown Rx prednisone 20 mg tablet 40 mg (2 x 20 mg) PO DAILY # 10 tabs 11/12/24 Unknown Rx albuterol sulfate 90 mcg/actuation 1 puff inhalation Q 6H PRN 11/20/24 Unknown Rx aerosol inhaler shortness of breath or wheez ing #8.5 grams Allergy/AdvReac Type Severity Reaction Status Date / Time No Known Allergies Allergy Verified 11/20/24 15:34 Family History Father Alcoholism CAD (coronary artery disease) Heart disease Hypertension Mother Alcoholism Seizures Surgical History History of ankle surgery Social History housing: homeless Smoking Status: Never smoker Smokeless tobacco user: chewing tobacco how long ago did patient quit smoking: Notes no cig tob use, prior chew only but no current, ongoing cannabis use. alcohol intake: current alcohol intake frequency: a few times a week details: 5-6 beers daily, occasionally whiskey. substance use type: marijuana, amphetamines, opiates and methamphetamine ROS ROS ED Constitutional Constitutional ED: Reports sweats; Denies chills or fever(s) Eyes Eyes: Denies blurry vision or change in vision ENT ENT ED: Denies rhinorrhea or sore throat Cardiovascular Cardiovascular: Denies chest pain or palpitations Respiratory/Chest Respiratory/Chest: Denies cough or dyspnea Gastrointestinal Gastrointestinal: Denies nausea or vomiting Genitourinary Genitourinary ED: Denies dysuria or hematuria Musculoskeletal Musculoskeletal: Denies back pain or neck pain Integumentary Denies abscess or rash Neurologic Neurologic: Denies headache(s) or weakness Allergic/Immunologic Allergic/Immunologic ED: Denies mouth swelling or urticaria EXAM Physical Exam Const Vital Signs: 11/20/24 15:34 11/20/24 16:46 Temperature 98.2 F Temperature Source Oral Pulse Rate 98 Respiratory Rate 18 Blood Pressure 111/81 H Blood Pressure Mean 91 Pulse Ox 96 Oxygen Delivery Method Room Air Room Air Positive well nourished and well developed General Appearance ED: well developed and NAD HEENT Reports moist mucous membranes Neck supple and no JVD Resp normal respiratory effort Auscultation: wheezes scattered wheezes Cardio regular rate and regular rhythm GI non-tender and non-distended Palpation: soft Neuro oriented x3, CN's II-XII intact bilaterally and no sensory deficits noted Sensorium / Orientation: alert Motor Exam: strength 5/5 throughout Psych mental status grossly normal MDM MDM MDM Narrative Medical decision making narrative: Patient was given a prescription for an albuterol inhaler. Patient was given referral for primary care physician. Patient was instructed to follow-up in 5 to 7 days for further evaluation. Patient understood and was agreeable with pl an. All questions were answered. Discharge Plan Triage Chief Complaint: Meds Only ED Provider: Graham Messina Dx/Rx/DC Orders Clinical Impression: Encounter for medication refill, Asthma Instructions: ED Asthma, Acute (Adult), ED MDI Use Spacer or None Prescriptions: Continued albuterol sulfate 90 mcg/actuation HFA aerosol inhaler 1 puff inhalation Q6H PRN (Reason: shortness of breath or wheezing) Qty: 8.5 0RF No Action albuterol sulfate 90 mcg/actuation aerosol powdr breath activated 2 inh inhalation Q6H PRN (Reason: shortness of breath or wheezing) Qty: 1 3RF multivitamin Tablet 1 tab PO LUNCH Qty: 0 0RF guaifenesin [Mucus Relief ER] 1,200 mg Tablet Extended Release 12hr 1,200 mg PO BID Qty: 10 0RF prednisone 20 mg tablet 40 mg PO DAILY Qty: 10 0RF prednisone 20 mg tablet 40 mg PO DAILY Qty: 10 0RF amoxicillin-pot clavulanate 875-125 mg tablet 1 tab PO Q12H Qty: 10 0RF Primary Care Provider: Care Physician,No Primary Referrals: Akhil Berrios MD [Med Staff - Photography Teacher] - 5-7 Days Care Physician,No Primary [Primary Care Provider] - Yolanda Garcia GENERAL MACHINIST-C [[facility]] - 5-7 Days Print Language: Rwandan Disposition Disposition: Home, Self Care
== END 2024-11-20 18:24 | disposition home or self-care (01) ==
PROVIDERS: Emergency Provider Emergency Medicine; Visit Provider Emergency Medicine
DX: Z76.0 Encounter for issue of repeat prescription (principal); J43.9 Emphysema, unspecified; J45.909 Unspecified asthma, uncomplicated; I10 Essential (primary) hypertension; K21.9 Gastro-esophageal reflux disease without esophagitis; Z59.00 Homelessness unspecified; F17.220 Nicotine dependence, chewing tobacco, uncomplicated; Z86.73 Personal history of transient ischemic attack (TIA), and cerebral infarction without residual deficits
CPT/HCPCS: 99281

== ENCOUNTER 2024-11-27 12:42 | Emergency (ER) | payer MEDICAID, SELFPAY ==
[2024-11-27] VITALS (7 sets, daily range): BP systolic 98–135; BP diastolic 75–87; PULSE 61–96; RESP 14–22; TEMP 35.5–36.6; O2SAT 93–99; BMI 20.1
--- NOTE | 2024-11-27 14:14 | EKG12_ITS ---
Test Reason : SOB Blood Pressure : */* mmHG Vent. Rate : 70 BPM Atrial Rate : 70 BPM P-R Int : 120 ms QRS Dur : 82 ms QT Int : 384 ms P-R-T Axes : 88 84 74 degrees QTcB Int : 414 ms Normal sinus rhythm WITH PACS Normal ECG Confirmed by Salvador Martinez ([id number]), assistant film editor PEBBLES FELICIANO ([id number]) on 11/28/2024 9:34:41 AM Referred By: Lacho Joy Confirmed By: Salvador Martinez
--- NOTE | 2024-11-27 14:25 | ED.VIS.DYS ---
HPI History of Present Illness Chief Complaint: Shortness of Breath Narrative Narrative: Chief complaint and HPI: Cough and flulike symptoms. 49-year-old male with past medical history of asthma presents for evaluation of cough and flulike symptoms. Patient states that he has had a cough for the past week with flulike symptoms consisting of fever, cough, congestion, and wheezing. Patient states that he is out of his albuterol inhaler. He does not take a maintenance inhaler. He does not follow with a primary care physician. Patient states that he does not have money to refill his albuterol inhaler. On chart review, patient is seen in our emergency department often. He denies any chest pain, abdominal pain, nausea, vomiting. Denies history of tobacco abuse. Review of systems: See HPI Medications: As listed on the chart Allergies: As listed on the chart PFSH: Per chart Vital signs: As listed on the chart. Reviewed. Physical exam: Gen: A&O x3, NAD Head: Normocephalic, atraumatic Eyes: No sclera icterus, conjunctiva clear ENT: Moist mucous membranes Neck: Trachea midline, No JVD CV: RRR, no murmurs, no peripheral edema Resp: Expiratory wheezing diffusely, + cough GI: Abd soft, non-distended, non-tender, no r/r/g Musc: Full ROM, no deformity Skin: Warm, dry Neuro: Alert, oriented, grossly intact, sensation intact Psych: Cooperative, appropriate mood and affect [facility] Medical History ETOH abuse Methamphetamine abuse Asthma Depression Anxiety Methamphetamine abuse Ankle fracture, left Bipolar disorder Depression Anxiety Past history of chewing tobacco use Asthma with COPD Anxiety and depression Inguinal hernia bilateral, non-recurrent Hypertension Stroke/cerebrovascular accident Alcohol abuse Bulla of lung GERD (gastroesophageal reflux disease) Home Medications ?Medication ?Instructions ?Recorded ?Last Taken ?Type albuterol sulfate 90 mcg/actuation 2 inh inhalation Q6H PRN shortness 09/07/24 10/21/24 Rx breath activated powder inhaler of breath or wheezing #1 ea amoxicillin 875 mg-potassium 1 tab PO Q12H #10 tabs 10/22/24 Unknown Rx clavulanate 125 mg tablet prednisone 20 mg tablet 40 mg (2 x 20 mg) PO DAILY #10 tabs 10/22/24 Unknown Rx guaifenesin 1,200 mg tablet, 1,200 mg PO BID #10 tabs 11/12/24 Unknown Rx extended release 12 hr (Mucus Relief ER) multivitamin 1 tab PO LUNCH #0 tabs 11/12/24 Unknown Rx prednisone 20 mg tablet 40 mg (2 x 20 mg) PO DAILY #10 tabs 11/12/24 Unknown Rx albuterol sulfate 90 mcg/actuation 1 puff inhalation Q6H PRN 11/20/24 Unknown Rx aerosol inhaler shortness of breath or wheezing #8.5 grams prednisone 20 mg tablet 40 mg (2 x 20 mg) PO DAILY 5 days 11/27/24 Unknown Rx #10 tabs Allergy/AdvReac Type Severity Reaction Status Date / Time No Known Allergies Allergy Verified 11/27/24 12:47 Family History Father Alcoholism CAD (coronary artery disease) Heart disease Hypertension Mother Alcoholism Seizures Surgical History History of ankle surgery Social History housing: homeless Smoking Status: Never smoker Smokeless tobacco user: chewing tobacco how long ago did patient quit smoking: Notes no cig tob use, prior chew only but no current, ongoing cannabis use. alcohol intake: current alcohol intake frequency: a few times a week details: 5-6 beers daily, occasionally whiskey. substance use type: marijuana, amphetamines, opiates and methamphetamine EXAM Physical Exam Const Vital Signs: 11/27/24 12:43 11/27/24 13:51 11/27/24 14:01 Temperature 96 F L 97.6 F L Temperature Source Temporal Oral Pulse Rate 91 91 Respiratory Rate 22 H 22 H Respiratory Effort Short of Breath Respiratory Depth Shallow Respiratory Pattern Tachypnea Blood Pressure 98/75 98/75 Blood Pressure Mean 82 82 Pulse Ox 96 95 Oxygen Delivery Method Room Air Room Air Room Air 11/27/24 14:24 11/27/24 14:24 11/27/24 14:51 Temperature Temperature Source Pulse Rate 80 61 Respiratory Rate 18 14 Respiratory Effort Normal Respiratory Depth Shallow Respiratory Pattern Normal Normal Blood Pressure 117/79 Blood Pressure Mean 91 Pulse Ox 96 99 Oxygen Delivery Method Room Air Room Air 11/27/24 15:30 11/27/24 16:00 11/27/24 16:49 Temperature 97.8 F Temperature Source Pulse Rate 77 96 Respiratory Rate 18 20 H Respiratory Effort Respiratory Depth Respiratory Pattern Blood Pressure 123/87 H 135/82 H Blood Pressure Mean 99 99 Pulse Ox 95 93 Oxygen Delivery Method Room Air Room Air MDM MDM MDM Narrative Medical decision making narrative: 49-year-old male with past medical history of asthma presents for evaluation of cough and flulike symptoms. Differential diagnosis includes but is not limited to asthma exacerbation, viral illness, influenza, COVID, pneumonia. NS bolus, DuoNeb, albuterol treatments, and Solu-Medrol ordered for asthma exacerbation. Given duration of symptoms will obtain basic labs and chest x-ray. Patient will be given an albuterol inhaler here in the emergency department to discharge home. EKG and chest x-ray reviewed see below. CBC without leukocytosis or anemia. BMP relatively unremarkable. COVID, flu, RSV negative. Patient's symptoms are likely secondary to a mild asthma exacerbation. On reevaluation, wheezing has improved. Patient shortness of breath has improved. Patient is stable to discharge home. He will discharge home with albuterol inhaler. He was written a prescription for a 5-day course of prednisone. He was educated that he needs to follow-up with the primary care physician as well as get put on a maintenance inhaler. He confirmed understanding. I did provide a PCP for him to make an appointment with. Return precautions explained. EKG: Interpreted by me/EM physician: EKG shows normal sinus rhythm with sinus arrhythmia. No acute ischemic changes. Heart rate 70 Diagnostic: Interpreted by me/EM physician: Chest x-ray without pneumothorax, cardiomegaly, pneumonia, effusion Impression: 1. Asthma exacerbation 2. Viral illness Lab Data Labs: Laboratory Results - last 24 hr 11/27/24 15:12 WBC 10.6 RBC 4.48 L Hgb 14.4 Hct 43.0 MCV 96.0 H MCH 32.1 H MCHC 33.5 RDW Std Deviation 45.7 H RDW Coeff of Bridger 13.0 Plt Count 323 MPV 9.3 Immature Gran % (Auto) 0.500 Neut % (Auto) 74.2 H Lymph % (Auto) 14.5 L [place] % (Auto) 6.4 Eos % (Auto) 3.9 Baso % (Auto) 0.5 Absolute Neuts (auto) 7.9 H Absolute Lymphs (auto) 1.53 Nucleated RBC % 0 Sodium 138 Potassium 4.0 Chloride Direct 102 Carbon Dioxide 26.2 Anion Gap 10 BUN 21 H Creatinine 0.6 L Estim Creat Clear Calc 119.44 Est GFR (MDRD) Non-Af 116 BUN/Creatinine Ratio 32.6 H Glucose 99 Calcium 9.1 Radiography Diagnostic Testing: Clinical Impression(s) from Imaging Studies Chest X-Ray 11/27/24 15:02 IMPRESSION: Hyperinflation of the lung christopher. Right apical peripheral consolidative process persist. Follow-up to resolution to exclude a mass. Reading Location[facility] Discharge Plan Triage Chief Complaint: Shortness of Breath ED Provider: Lacho Joy Dx/Rx/DC Orders Clinical Impression: Asthma exacerbation Instructions: Understanding Asthma, ED Asthma, Acute (Adult) Prescriptions: New prednisone 20 mg tablet 40 mg PO DAILY 5 Days Qty: 10 0RF Rx Instructions: Start on 11/28/2024 No Action albuterol sulfate 90 mcg/actuation aerosol powdr breath activated 2 inh inhalation Q6H PRN (Reason: shortness of breath or wheezing) Qty: 1 3RF multivitamin Tablet 1 tab PO LUNCH Qty: 0 0RF guaifenesin [Mucus Relief ER] 1,200 mg Tablet Extended Release 12hr 1,200 mg PO BID Qty: 10 0RF prednisone 20 mg tablet 40 mg PO DAILY Qty: 10 0RF prednisone 20 mg tablet 40 mg PO DAILY Qty: 10 0RF amoxicillin-pot clavulanate 875-125 mg tablet 1 tab PO Q12H Qty: 10 0RF albuterol sulfate 90 mcg/actuation HFA aerosol inhaler 1 puff inhalation Q6H PRN (Reason: shortness of breath or wheezing) Qty: 8.5 0RF Primary Care Provider: Care Physician,No Primary Referrals: Troy Monroy MD [Med Staff - Active Staff] - 3-5 Days Care Physician,No Primary [Primary Care Provider] - Activity Restrictions/Additional Instructions: You were given an albuterol inhaler here in the emergency department. You can use the albuterol inhaler 2 puffs every 4 hours as needed for wheezing. Follow-up with the primary care physician listed above as you need to establish care and be likely placed on a maintenance inhaler. Return back to the ED if symptoms change or worsen. Print Language: Chadian Disposition Disposition: Home, Self Care Discharge Date/Time: 11/27/24 16:54
[2024-11-27] MEDS: Albuterol 2.5 MG/3 ML VIAL.NEB. 5 MG INHALATION (14:30)
[2024-11-27] MEDS: Ipratropium/Albuterol Sulfate 3 ML AMPUL.NEB INHALATION (14:31)
[2024-11-27] MEDS: MethylPREDNISolone 125 MG/2 ML Vial IV (14:49)
[2024-11-27] MEDS: 0.9% Normal Saline (1000mL) 1,000 ML 999 ML IV (14:49)
--- NOTE | 2024-11-27 15:02 | RAD_ITS ---
PROCEDURE: CHEST PA AND LATERAL REASON FOR EXAM: Cough. Using inhaler but not helping. TECHNIQUE: Frontal and lateral views of the chest. COMPARISON: CT dated October 21, 2024. FINDINGS: The heart size is normal. The mediastinal contour is unremarkable. Hyperinflation of the lung christopher. Right apical peripheral consolidative process persist. No pleural effusion or pneumothorax noted. The bones are unremarkable. RAD/Chest PA and Lateral IMPRESSION: Hyperinflation of the lung christopher. Right apical peripheral consolidative process persist. Follow-up to resolution to exclude a mass. Reading Location: [id number]
[2024-11-27] MEDS: Albuterol Sulfate 8 gm Inhaler (60 puffs) 2 PUFF INHALATION (15:26)
[2024-11-27 15:27] LABS: Absolute Lymphocyte Count 1.53 X10^3/uL (0.83-4.51); Absolute Neutrophil Count 7.9 X10^3/uL (2.0-7.7); Basophil# 0.05 X10^3/uL; Basophil% 0.5 % (0-1); Eosinophil# 0.41 X10^3/uL; Eosinophils% 3.9 % (0-5); Hemoglobin 14.4 g/dL (13.0-16.5); Lymphocyte # 1.53 X10^3/ul (0.83-4.51); Lymphocyte % 14.5 % (19-41); Mean Corp Hgb Conc 33.5 g/dL (32-36); Mean Corpuscular Hgb 32.1 pg (27.0-32.0); Mean Platelet Vol. 9.3 fl (6.2-12.0); Monocyte# 0.68 X10^3/uL; Monocyte% 6.4 % (0-10); NRBC Flagged by Analyzer 0 % (0-5); Neutrophil # 7.85 X10^3/uL (2.7-7.7); Neutrophil % 74.2 % (47-70); Platelet Count 323 K/mm3 (150-450); RBC Distribution Width SD 45.7 fl (35.1-43.9); Red Blood Count 4.48 M/mm3 (4.6-6.2); White Blood Count 10.6 K/mm3 (4.4-11.0)
[2024-11-27 15:52] LABS: Anion Gap 10 (5-15); BUN 21 mg/dL (4-19); BUN/Creat Ratio 32.6 RATIO (10-20); Calcium 9.1 mg/dL (7.6-11.0); Carbon Dioxide 26.2 mmol/L (22.0-29.0); Chloride 102 mmol/L (96-108); Creatinine, Serum 0.6 mg/dL (0.8-1.3); EST Glomerular Filtration Rate 116 (>60); Estimated Creatinine Clearance 119.44 ml/min; Glucose 99 mg/dL (70-99); Sodium Level 138 mmol/L (133-145)
== END 2024-11-27 16:54 | disposition home or self-care (01) ==
PROVIDERS: Emergency Provider Surgery; Referring Provider Surgery; Visit Provider Surgery
DX: J45.901 Unspecified asthma with (acute) exacerbation (principal); J43.9 Emphysema, unspecified; B34.9 Viral infection, unspecified; I10 Essential (primary) hypertension; Z87.891 Personal history of nicotine dependence; Z11.52 Encounter for screening for COVID-19
CPT/HCPCS: G0463; 71046; 80048; 85025; 87631; 93005; 94640; 96361; 96374; 99252; 99284; A4216

== ENCOUNTER 2024-12-04 16:22 | Emergency (ER) | payer MEDICAID, SELFPAY ==
[2024-12-04 16:39] VITALS: BP 90/77; PULSE 89; RESP 16; TEMP 36.7; O2SAT 98; BMI 24.7
--- NOTE | 2024-12-04 20:09 | ED.RN ---
Pt told registration he did some research on his phone and feels abbess is a spider bite, pt stated he did not want evaluated in the ED. Ambulated out of dept.
--- NOTE | 2024-12-04 22:47 | EDS_ITS ---
HPI History of Present Illness Chief Complaint: [facility]cess [facility] Medical History ETOH abuse Methamphetamine abuse Asthma Depression Anxiety Methamphetamine abuse Ankle fracture, left Bipolar disorder Depression Anxiety Past history of chewing tobacco use Asthma with COPD Anxiety and depression Inguinal hernia bilateral, non-recurrent Hypertension Stroke/cerebrovascular accident Alcohol abuse Bulla of lung GERD (gastroesophageal reflux disease) Home Medications ?Medication ?Instructions ?Recorded ?Last Taken ?Type albuterol sulfate 90 mcg/actuation 2 inh inhalation Q6 H PRN shortness 09/07/24 10/21/24 Rx breath activated powder inhaler of breath or wheezing #1 ea amoxicillin 875 mg-potassium 1 tab PO Q12H #10 tabs Unknown Rx clavulanate 125 mg tablet prednisone 20 mg tablet 40 mg (2 x 20 mg) PO DAILY # 10 tabs 10/22/24 Unknown Rx guaifenesin 1,200 mg tablet, 1,200 mg PO BID #10 tabs 11/12/24 Unknown Rx extended release 12 hr (Mucus Relief ER) multivitamin 1 tab PO LUNCH #0 tabs 11/12 Unknown Rx prednisone 20 mg tablet 40 mg (2 x 20 mg) PO DAILY # 10 tabs 11/12/24 Unknown Rx albuterol sulfate 90 mcg/actuation 1 puff inhalation Q 6H PRN 11/20/24 Unknown Rx aerosol inhaler shortness of breath or wheez ing #8.5 grams prednisone 20 mg tablet 40 mg (2 x 20 mg) PO DAILY 5 days 11/27/24 Unknown Rx #10 tabs Allergy/AdvReac Type Severity Reaction Status Date / Time No Known Allergies Allergy Verified 12/04/24 16:42 Family History Father Alcoholism CAD (coronary artery disease) Heart disease Hypertension Mother Alcoholism Seizures Surgical History History of ankle surgery Social History housing: homeless Smoking Status: Never smoker Smokeless tobacco user: chewing tobacco how long ago did patient quit smoking: Notes no cig tob use, prior chew only but no current, ongoing cannabis use. alcohol intake: current alcohol intake frequency: a few times a week details: 5-6 beers daily, occasionally whiskey. substance use type: marijuana, amphetamines, opiates and methamphetamine EXAM Physical Exam Const Vital Signs: 12/04/24 16:39 Temperature 98.1 F Temperature Source Temporal Pulse Rate 89 Respiratory Rate 16 Blood Pressure 90/77 Blood Pressure Mean 81 Pulse Ox 98 Oxygen Delivery Method Room Air MDM MDM MDM Narrative Medical decision making narrative: Patient eloped from emergency department prior to my evaluation. Discharge Plan Triage Chief Complaint: Abscess ED Provider: Julius Matthews Dx/Rx/DC Orders Prescriptions: No Action albuterol sulfate 90 mcg/actuation aerosol powdr breath activated 2 inh inhalation Q6H PRN (Reason: shortness of breath or wheezing) Qty: 1 3RF multivitamin Tablet 1 tab PO LUNCH Qty: 0 0RF guaifenesin [Mucus Relief ER] 1,200 mg Tablet Extended Release 12hr 1,200 mg PO BID Qty: 10 0RF prednisone 20 mg tablet 40 mg PO DAILY Qty: 10 0RF prednisone 20 mg tablet 40 mg PO DAILY Qty: 10 0RF amoxicillin-pot clavulanate 875-125 mg tablet 1 tab PO Q12H Qty: 10 0RF albuterol sulfate 90 mcg/actuation HFA aerosol inhaler 1 puff inhalation Q6H PRN (Reason: shortness of breath or wheezing) Qty: 8.5 0RF prednisone 20 mg tablet 40 mg PO DAILY 5 Days Qty: 10 0RF Rx Instructions: Start on 11/28/2024 Primary Care Provider: Care Physician,No Primary Print Language: Ghanaian Disposition Disposition: LEFT WITHOUT BEING SEEN Discharge Date/Time: 12/04/24 20:20
== END 2024-12-04 20:20 | disposition left against medical advice (07) ==
LOC: ED 20:26
PROVIDERS: Emergency Provider Emergency Medicine; Visit Provider Emergency Medicine
DX: L02.91 Cutaneous abscess, unspecified (principal); J43.9 Emphysema, unspecified; I10 Essential (primary) hypertension; K21.9 Gastro-esophageal reflux disease without esophagitis; Z59.00 Homelessness unspecified; F17.220 Nicotine dependence, chewing tobacco, uncomplicated; Z86.73 Personal history of transient ischemic attack (TIA), and cerebral infarction without residual deficits; Z53.21 Procedure and treatment not carried out due to patient leaving prior to being seen by health care provider
CPT/HCPCS: 99283

== ENCOUNTER 2024-12-13 11:17 | Emergency (ER) | payer MEDICAID, SELFPAY ==
[2024-12-13 11:18] VITALS: BP 153/108; PULSE 88; RESP 16; TEMP 35.9; O2SAT 100; BMI 20.5
[2024-12-13 12:35] VITALS: O2SAT 93
--- NOTE | 2024-12-13 12:53 | EX.ED.DYSGE1 ---
HPI History of Present Illness Chief Complaint: Cough Narrative Narrative: 49-year-old male past medical history of asthma, presents with chronic cough that he has had for the last few months. He states that with his history of asthma, wintertime is the worst. He has had a cough of clear sputum that has been intermittent. Over the last few weeks he has been using his albuterol inhaler more often. He ran out and is now having continued cough and mild shortness of breath. He states last time he was here, he received a small albuterol inhaler, but states he needs the big 1. He denies any fever, no chills, no chest pain associated with this. No leg swelling. He is here for an albuterol inhaler prescription and at least 2 weeks of cough if not longer. [facility] Medical History ETOH abuse Methamphetamine abuse Asthma Depression Anxiety Methamphetamine abuse Ankle fracture, left Bipolar disorder Depression Anxiety Past history of chewing tobacco use Asthma with COPD Anxiety and depression Inguinal hernia bilateral, non-recurrent Hypertension Stroke/cerebrovascular accident Alcohol abuse Bulla of lung GERD (gastroesophageal reflux disease) Home Medications ?Medication ?Instructions ?Recorded ?Last Taken ?Type albuterol sulfate 90 mcg/actuation 2 inh inhalation Q6H PRN shortness 09/07/24 10/21/24 Rx breath activated powder inhaler of breath or wheezing #1 ea amoxicillin 875 mg-potassium 1 tab PO Q12H #10 tabs 10/22/24 Unknown Rx clavulanate 125 mg tablet prednisone 20 mg tablet 40 mg (2 x 20 mg) PO DAILY #10 tabs 10/22/24 Unknown Rx guaifenesin 1,200 mg tablet, 1,200 mg PO BID #10 tabs 11/12/24 Unknown Rx extended release 12 hr (Mucus Relief ER) multivitamin 1 tab PO LUNCH #0 tabs 11/12/24 Unknown Rx prednisone 20 mg tablet 40 mg (2 x 20 mg) PO DAILY #10 tabs 11/12/24 Unknown Rx albuterol sulfate 90 mcg/actuation 1 puff inhalation Q6H PRN 11/20/24 Unknown Rx aerosol inhaler shortness of breath or wheezing #8.5 grams prednisone 20 mg tablet 40 mg (2 x 20 mg) PO DAILY 5 days 11/27/24 Unknown Rx #10 tabs albuterol sulfate 90 mcg/actuation 1 - 2 puff inhalation Q4H PRN PRN 12/13/24 Unknown Rx aerosol inhaler (Ventolin HFA) Wheezing #1 ea prednisone 20 mg tablet 40 mg (2 x 20 mg) PO DAILY #10 tabs 12/13/24 Unknown Rx Allergy/AdvReac Type Severity Reaction Status Date / Time No Known Allergies Allergy Verified 12/13/24 11:19 Family History Father Alcoholism CAD (coronary artery disease) Heart disease Hypertension Mother Alcoholism Seizures Surgical History History of ankle surgery Social History housing: apartment Smoking Status: Never smoker Smokeless tobacco user: chewing tobacco how long ago did patient quit smoking: Notes no cig tob use, prior chew only but no current, ongoing cannabis use. alcohol intake: current alcohol intake frequency: a few times a week details: 5-6 beers daily, occasionally whiskey. substance use type: marijuana, amphetamines, opiates and methamphetamine ROS ROS ED ROS Narrative Review of systems positive for chronic cough, intermittent over the last few months, worse over the last few weeks. Out of albuterol inhaler. No chest pain, no fevers or chills, mild shortness of breath. No leg swelling. No other symptoms especially nausea, or vomiting. EXAM Physical Exam Narrative Exam Narrative: Afebrile. Vital signs noted. Nontoxic-appearing. Already a vascular examination reveals a regular rate and rhythm. Lungs are clear to auscultation bilaterally. No wheezing or stridor. No accessory muscle use. Abdomen soft and nontender without guarding or rebound. Positive bowel sounds. Neurological examination is nonfocal and nonlateralizing. Const Vital Signs: 12/13/24 11:18 12/13/24 12:35 Temperature 96.6 F L Temperature Source Oral Pulse Rate 88 Respiratory Rate 16 Respiratory Effort Labored Respiratory Depth Shallow Respiratory Pattern Tachypnea Blood Pressure 153/108 H Blood Pressure Mean 123 Pulse Ox 100 Oxygen Delivery Method Room Air Room Air MDM MDM MDM Narrative Medical decision making narrative: I reviewed his prior problems, has had asthma exacerbation as well as problems with anxiety and depression. His pulse ox is 100% on room air without evidence of hypoxia. While I do not feel he needs laboratory work, given his chronic cough, I have low concern for pneumonia or pneumothorax because the history and physical does not support this. But I do feel that two-view chest x-ray should be obtained to rule out consolidation, pneumonia, or mass. I discussed with him receiving another albuterol MDI from the emergency department, but he states that it was dinky, and he prefers a prescription for an albuterol inhaler. He was referred to a primary care provider. On my individual interpretation of his chest x-ray, there is no consolidation or pneumonia, no pneumothorax. I reviewed the radiology report which confirms my independent interpretation. Additionally, they comment on a pulmonary nodule and worsening of the right apical pleural-parenchymal changes. The pulmonary nodule is 8.9 x 10.[address] suggests CT scan, I do not feel he needs an emergent CT scan for the pulmonary nodule. Patient was informed with this and referred to Dr. Leonard Marin and back to his primary care provider. I do not feel he needs antibiotics. Patient inquired about these, but then inquired about a prednisone burst as well. I do feel that he may benefit from this. He was written for 5-day burst of 40 mg. At this point in time, I feel he can be discharged home to follow-up. Return instructions reviewed. Disposition is discharged home in stable condition. History & Record Review Discussion w/independent historian: Patient Radiography Diagnostic Testing: Clinical Impression(s) from Imaging Studies Chest X-Ray 12/13/24 12:55 IMPRESSION: Persistent and slightly worsening of the right apical pleural-parenchymal changes. Findings suggestive of a 8.9 mm x 10.9 mm nodule in the lateral aspect of the right midlung. Correlation with CT recommended. Reading Location: [id number] Discharge Plan Triage Chief Complaint: Cough ED Provider: Homar Nieves Dx/Rx/DC Orders Clinical Impression: Cough, Asthma exacerbation, Has run out of medications, Pulmonary nodule Instructions: ED Asthma, Acute (Adult), ED Cough Chronic Uncertain Cause Adult, ED Pulmonary Nodule, Solitary Prescriptions: New albuterol sulfate [Ventolin HFA] 90 mcg/actuation HFA aerosol inhaler 1 - 2 puff inhalation Q4H PRN PRN (Reason: Wheezing) Qty: 1 0RF prednisone 20 mg tablet 40 mg PO DAILY Qty: 10 0RF No Action albuterol sulfate 90 mcg/actuation aerosol powdr breath activated 2 inh inhalation Q6H PRN (Reason: shortness of breath or wheezing) Qty: 1 3RF multivitamin Tablet 1 tab PO LUNCH Qty: 0 0RF guaifenesin [Mucus Relief ER] 1,200 mg Tablet Extended Release 12hr 1,200 mg PO BID Qty: 10 0RF prednisone 20 mg tablet 40 mg PO DAILY Qty: 10 0RF prednisone 20 mg tablet 40 mg PO DAILY Qty: 10 0RF amoxicillin-pot clavulanate 875-125 mg tablet 1 tab PO Q12H Qty: 10 0RF albuterol sulfate 90 mcg/actuation HFA aerosol inhaler 1 puff inhalation Q6H PRN (Reason: shortness of breath or wheezing) Qty: 8.5 0RF prednisone 20 mg tablet 40 mg PO DAILY 5 Days Qty: 10 0RF Rx Instructions: Start on 11/28/2024 Primary Care Provider: Care Physician,No Primary Referrals: Leonard Marin DO [Med Staff - Active Staff] - As soon as possible Troy Monroy MD [Med Staff - Active Staff] - 1 Week if not improving Care Physician,No Primary [Primary Care Provider] - Anmol Berry NP-C [[facility]] - 1 Week if not improving Activity Restrictions/Additional Instructions: Use albuterol inhaler 1 to 2 puffs inhaled every 4-6 hours as needed for shortness of breath. Follow-up with a primary care provider regarding your chronic cough. Return to the emergency department with increased difficulty breathing, new or worsening symptoms. Print Language: Kenyan Disposition Disposition: Home, Self Care
--- NOTE | 2024-12-13 12:55 | RAD_ITS ---
PROCEDURE: CHEST PA AND LATERAL REASON FOR EXAM: COUGH TECHNIQUE: Frontal lateral radiographs were obtained. COMPARISON: Comparison is made with prior study dated November 27, 2024. FINDINGS: Hyperinflation and findings suggestive of COPD. Persistent pleural-parenchymal changes at the right lung apex. This has slightly worsened as compared to prior study. There is a faint 10.9 mm by 8.9 mm nodule in the lateral right midlung. Correlation with CT scan is recommended. RAD/Chest PA and Lateral IMPRESSION: Persistent and slightly worsening of the right apical pleural-parenchymal [place] es. Findings suggestive of a 8.9 mm x 10.9 mm nodule in the lateral aspect of the r ight midlung. Correlation with CT recommended. Reading Location: [place] [id number]
[2024-12-13 13:44] VITALS: BP 148/90; PULSE 88; RESP 16; TEMP 35.9; O2SAT 100
== END 2024-12-13 13:50 | disposition home or self-care (01) ==
LOC: ED 12:56
PROVIDERS: Emergency Provider Emergency Medicine; Visit Provider Emergency Medicine
DX: J45.901 Unspecified asthma with (acute) exacerbation (principal); J43.9 Emphysema, unspecified; I10 Essential (primary) hypertension; R91.1 Solitary pulmonary nodule; F41.9 Anxiety disorder, unspecified; K21.9 Gastro-esophageal reflux disease without esophagitis; Z87.891 Personal history of nicotine dependence; Z86.73 Personal history of transient ischemic attack (TIA), and cerebral infarction without residual deficits
CPT/HCPCS: 71046; 99282

== ENCOUNTER 2025-01-19 13:42 | Emergency (ER) | payer MEDICAID, SELFPAY ==
[2025-01-19] VITALS (7 sets, daily range): BP systolic 112–139; BP diastolic 60–95; PULSE 71–93; RESP 16–30; TEMP 36.6; O2SAT 91–100
--- NOTE | 2025-01-19 13:54 | EDS_ITS ---
HPI <MALIA Moctezuma - Last Filed: 01/19/25 16:18> History of Present Illness Chief Complaint: Shortness of Breath Narrative Narrative: Patient presenting today due to wheezing that started today when he woke up. He reports that he has had a nonproductive cough over the past few days. He has a history of asthma, he denies any tobacco abuse. He ran out of his inhaler and is requesting a breathing treatment at this time. He denies fevers, chills, ch est pain. He has no history of blood clots or recent surgery/travel/immobilization. [facility] <MALIA Moctezuma - Last Filed: 01/19/25 16:18> [facility] Medical History ETOH abuse Methamphetamine abuse Asthma Depression Anxiety Methamphetamine abuse Ankle fracture, left Bipolar disorder Depression Anxiety Past history of chewing tobacco use Asthma with COPD Anxiety and depression Inguinal hernia bilateral, non-recurrent Hypertension Stroke/cerebrovascular accident Alcohol abuse Bulla of lung GERD (gastroesophageal reflux disease) Home Medications ?Medication ?Instructions ?Recorded ?Last Taken ?Type albuterol sulfate 90 mcg/actuation 2 inh inhalation Q6 H PRN shortness 09/07/24 10/21/24 Rx breath activated powder inhaler of breath or wheezing #1 ea amoxicillin 875 mg-potassium 1 tab PO Q12H #10 tabs Unknown Rx clavulanate 125 mg tablet prednisone 20 mg tablet 40 mg (2 x 20 mg) PO DAILY # 10 tabs 10/22/24 Unknown Rx guaifenesin 1,200 mg tablet, 1,200 mg PO BID #10 tabs 11/12/24 Unknown Rx extended release 12 hr (Mucus Relief ER) multivitamin 1 tab PO LUNCH #0 tabs 11/12 Unknown Rx prednisone 20 mg tablet 40 mg (2 x 20 mg) PO DAILY # 10 tabs 11/12/24 Unknown Rx albuterol sulfate 90 mcg/actuation 1 puff inhalation Q 6H PRN 11/20/24 Unknown Rx aerosol inhaler shortness of breath or wheez ing #8.5 grams prednisone 20 mg tablet 40 mg (2 x 20 mg) PO DAILY 5 days 11/27/24 Unknown Rx #10 tabs albuterol sulfate 90 mcg/actuation 1 - 2 puff inhalati on Q4H PRN PRN 12/13/24 Unknown Rx aerosol inhaler (Ventolin HFA) Wheezing #1 ea prednisone 20 mg tablet 40 mg (2 x 20 mg) PO DAILY # 10 tabs 12/13/24 Unknown Rx albuterol sulfate 90 mcg/actuation 1 - 2 puff inhalati on Q4H PRN PRN 01/19/25 Unknown Rx aerosol inhaler (Ventolin HFA) Wheezing #1 inh prednisone 20 mg tablet 40 mg (2 x 20 mg) PO DAILY 5 days 01/19/25 Unknown Rx #10 tabs Allergy/AdvReac Type Severity Reaction Status Date / Time No Known Allergies Allergy Verified 01/19/25 13:47 Family History Father Alcoholism CAD (coronary artery disease) Heart disease Hypertension Mother Alcoholism Seizures Surgical History History of ankle surgery Social History housing: apartment Smoking Status: Never smoker Smokeless tobacco user: chewing tobacco how long ago did patient quit smoking: Notes no cig tob use, prior chew only but no current, ongoing cannabis use. alcohol intake: current alcohol intake frequency: a few times a week details: 5-6 beers daily, occasionally whiskey. substance use type: marijuana, amphetamines, opiates and methamphetamine ROS <MALIA Moctezuma - Last Filed: 01/19/25 16:18> ROS ED Constitutional Constitutional ED: Denies chills or fever(s) Cardiovascular Cardiovascular: Denies chest pain Respiratory/Chest Respiratory/Chest: Reports cough, dyspnea on exertion and wheezing; Denies sputum Gastrointestinal Gastrointestinal: Denies abdominal pain, nausea or vomiting Musculoskeletal Musculoskeletal: Denies arthralgias or myalgias Integumentary Denies rash Neurologic Neurologic: Denies weakness EXAM <MALIA Moctezuma - Last Filed: 01/19/25 16:18> Physical Exam Const Vital Signs: 01/19/25 13:46 01/19/25 13:57 01/19/25 14:11 Temperature 98 F Temperature Source Temporal Pulse Rate 93 93 Respiratory Rate 30 H 24 H Respiratory Effort Short of Breath Respiratory Pattern Tachypnea Blood Pressure 139/95 H Blood Pressure Mean 109 Pulse Ox 91 Oxygen Delivery Method Room Air Room Air 01/19/25 14:11 01/19/25 14:28 01/19/25 15:00 Temperature Temperature Source Pulse Rate 90 71 82 Respiratory Rate Respiratory Effort Respiratory Pattern Blood Pressure 114/60 112/91 H 124/75 H Blood Pressure Mean 78 98 91 Pulse Ox 100 98 97 Oxygen Delivery Method Room Air Room Air Room Air 01/19/25 15:30 01/19/25 15:32 Temperature 98 F 98 F Temperature Source Oral Pulse Rate 88 88 Respiratory Rate 16 16 Respiratory Effort Respiratory Pattern Blood Pressure 124/75 H 124/75 H Blood Pressure Mean 91 91 Pulse Ox 96 96 Oxygen Delivery Method Room Air Positive well nourished, well developed and no apparent distress General Appearance ED: well developed HEENT Reports normocephalic and head/scalp atraumatic Mouth ED: Yes moist mucous membranes normal Eyes PERRL and EOMs intact bilaterally Neck full ROM and supple Chest Wall inspection of chest normal Resp normal respiratory effort Resp Narrative: Inspiratory and expiratory wheezes to the bilateral lung christopher with decreased air movement bilaterally Cardio regular rate and regular rhythm Back/Spine normal ROM and normal to inspection Extremity normal to inspection and full ROM Neuro oriented x3, CN's II-XII intact bilaterally, moves all extremities, no focal motor deficits and no sensory deficits noted Sensorium / Orientation: awake and alert Psych mental status grossly normal and thought process normal Skin no rashes or lesions noted and no wounds <Dr. Tae Walsh MD - Last Filed: 01/20/25 07:18> Physical Exam Const Vital Signs: 01/19/25 13:46 01/19/25 13:57 01/19/25 14:11 Temperature 98 F Temperature Source Temporal Pulse Rate 93 93 Respiratory Rate 30 H 24 H Respiratory Effort Short of Breath Respiratory Pattern Tachypnea Blood Pressure 139/95 H Blood Pressure Mean 109 Pulse Ox 91 Oxygen Delivery Method Room Air Room Air 01/19/25 14:11 01/19/25 14:28 01/19/25 15:00 Temperature Temperature Source Pulse Rate 90 71 82 Respiratory Rate Respiratory Effort Respiratory Pattern Blood Pressure 114/60 112/91 H 124/75 H Blood Pressure Mean 78 98 91 Pulse Ox 100 98 97 Oxygen Delivery Method Room Air Room Air Room Air 01/19/25 15:30 01/19/25 15:32 Temperature 98 F 98 F Temperature Source Oral Pulse Rate 88 88 Respiratory Rate 16 16 Respiratory Effort Respiratory Pattern Blood Pressure 124/75 H 124/75 H Blood Pressure Mean 91 91 Pulse Ox 96 96 Oxygen Delivery Method Room Air [facility] <MALIA Moctezuma - Last Filed: 01/19/25 16:18> [facility] Narrative Medical decision making narrative: Patient presenting today due to wheezing that started this morning. He has been seen here in the past for asthma exacerbations. He ran out of his albuterol inhaler and has not had anything today. He is requesting a breathing treatment. He does have wheezes to the bilateral lung christopher. He has been coughing for a few days, suspect he could have a viral illness. Chest x-ray will be obtained to assess for infiltrate. Patient given IV Solu-Medrol, albuterol, and DuoNeb breathing treatments. He is PERC negative, low suspicion for PE. On examination he reports significant improvement of his symptoms, he is no longer wheezing. Chest x-ray negative for infiltrates. There is a stable pulmonary nodule that was seen on previous chest x-ray, he was told to have an outpatient CT scan which he has not yet had. O2 saturation has remained stable at 96% on room air. He is requesting to be discharged. I will give him a course of prednisone and have referred him to a PCP as he does not currently have one. He was also given an albuterol inhaler. Patient discharged home in stable co ndition. I have personally performed a face to face assessment of the patient and have reviewed the CURLY Note. I performed a substantive portion of the visit including all aspects of the following. My barrett findings include: History is history is remarkable for trouble breathing. He is wheezing. He has history of asthma/COPD. He was seen December [address] Vickie carver. He was seen December 04 for cutaneous abscess by Dr. Matthews. He was seen November 2025 for asthma. November 12 he was seen for respiratory failure with hypoxemia and hypercapnia. Patient is very apologetic. He does report trouble breathing with wheezing. Exam is remarkable for elevated blood pressure and tachypnea. His pulse ox is 91% on room air. His breathing is slightly labored. HEENT exam is unremarkable. Trachea midline. No inspiratory expiratory stridor. Patient has delayed expiratory phase and wheezing noted throughout. Heart is regular. Rate is normal. There is no murmur, gallop or rub. Abdomen is benign. Lower extremity exam reveals no swelling, discoloration, leg vein distention, palp cord since on the distribution deep venous system. He has no history of VTE. Medical Decision Making suspect patient has exacerbation of his asthma. This may be due to viral infection. Patient is PERC negative. Wells score is less than 3. D-dimer and CTA was not ordered. Other additions or changes: 2 view chest x-ray reviewed interpreted by me as negative for acute process. There is evidence of hyperaeration. There is no infiltrate, effusion or pneumothorax. Cardiac silhouette and size normal. Hilum is unremarkable. Osseous structures with no acute process. Radiography Diagnostic Testing: Clinical Impression(s) from Imaging Studies Chest X-Ray 01/19/25 14:15 IMPRESSION: NO SIGNIFICANT CHANGE SINCE THE PRIOR EXAM. Reading Location: [id number] <Dr. Tae Walsh MD - Last Filed: 01/20/25 07:18> [facility] Narrative Medical decision making narrative: Patient presenting today due to wheezing that started this morning. He has been seen here in the past for asthma exacerbations. He ran out of his albuterol inhaler and has not had anything today. He is requesting a breathing treatment. He does have wheezes to the bilateral lung christopher. He has been coughing for a few days, suspect he could have a viral illness. Chest x-ray will be obtained to assess for infiltrate. Patient given IV Solu-Medrol, albuterol, and DuoNeb breathing treatments. He is PERC negative, low suspicion for PE. I have personally performed a face to face assessment of the patient and have reviewed the CURLY Note. I performed a substantive portion of the visit including all aspects of the following. My barrett findings include: History is history is remarkable for trouble breathing. He is wheezing. He has history of asthma/COPD. He was seen December [address] Vickie carver. He was seen December 04 for cutaneous abscess by Dr. Matthews. He was seen November 2025 for asthma. November 12 he was seen for respiratory failure with hypoxemia and hypercapnia. Patient is very apologetic. He does report trouble breathing with wheezing. Exam is remarkable for elevated blood pressure and tachypnea. His pulse ox is 91% on room air. His breathing is slightly labored. HEENT exam is unremarkable. Trachea midline. No inspiratory expiratory stridor. Patient has delayed expiratory phase and wheezing noted throughout. Heart is regular. Rate is normal. There is no murmur, gallop or rub. Abdomen is benign. Lower extremity exam reveals no swelling, discoloration, leg vein distention, palp cord since on the distribution deep venous system. He has no history of VTE. Medical Decision Making suspect patient has exacerbation of his asthma. This may be due to viral infection. Patient is PERC negative. Wells score is less than 3. D-dimer and CTA was not ordered. Other additions or changes: 2 view chest x-ray reviewed interpreted by me as negative for acute process. There is evidence of hyperaeration. There is no infiltrate, effusion or pneumothorax. Cardiac silhouette and size normal. Hilum is unremarkable. Osseous structures with no acute process. History & Record Review Additional record(s) reviewed:: Prior outpatient record (Documented MDM narrative), Prior ED visit and Prior labs Radiography Diagnostic Testing: Clinical Impression(s) from Imaging Studies Chest X-Ray 01/19/25 14:15 IMPRESSION: NO SIGNIFICANT CHANGE SINCE THE PRIOR EXAM. Reading Location: [facility] Discharge Plan Triage Chief Complaint: Shortness of Breath ED Midlevel Provider: Yee Jaffe ED Provider: Tae Walsh Dx/Rx/DC Orders Clinical Impression: Asthma exacerbation, Viral URI with cough Instructions: ED URI, Viral W/ Wheezing (Adult), Asthma Prescriptions: New prednisone 20 mg tablet 40 mg PO DAILY 5 Days Qty: 10 0RF albuterol sulfate [Ventolin HFA] 90 mcg/actuation HFA aerosol inhaler 1 - 2 puff inhalation Q4H PRN PRN (Reason: Wheezing) Qty: 1 0RF No Action albuterol sulfate 90 mcg/actuation aerosol powdr breath activated 2 inh inhalation Q6H PRN (Reason: shortness of breath or wheezing) Qty: 1 3RF multivitamin Tablet 1 tab PO LUNCH Qty: 0 0RF guaifenesin [Mucus Relief ER] 1,200 mg Tablet Extended Release 12hr 1,200 mg PO BID Qty: 10 0RF prednisone 20 mg tablet 40 mg PO DAILY Qty: 10 0RF albuterol sulfate [Ventolin HFA] 90 mcg/actuation HFA aerosol inhaler 1 - 2 puff inhalation Q4H PRN PRN (Reason: Wheezing) Qty: 1 0RF prednisone 20 mg tablet 40 mg PO DAILY Qty: 10 0RF prednisone 20 mg tablet 40 mg PO DAILY Qty: 10 0RF amoxicillin-pot clavulanate 875-125 mg tablet 1 tab PO Q12H Qty: 10 0RF albuterol sulfate 90 mcg/actuation HFA aerosol inhaler 1 puff inhalation Q6H PRN (Reason: shortness of breath or wheezing) Qty: 8.5 0RF prednisone 20 mg tablet 40 mg PO DAILY 5 Days Qty: 10 0RF Rx Instructions: Start on 11/28/2024 Primary Care Provider: Care Physician,No Primary Referrals: Care Physician,No Primary [Primary Care Provider] - Activity Restrictions/Additional Instructions: [facility] the [address] since you do not have a PCP. Their phone number is [phone]. Print Language: Albanian Disposition Disposition: Home, Self Care Discharge Date/Time: 01/19/25 15:33
[2025-01-19] MEDS: MethylPREDNISolone 125 MG/2 ML Vial IV (13:59)
[2025-01-19] MEDS: Albuterol 2.5 MG/3 ML VIAL.NEB. INHALATION ×2 (14:00)
[2025-01-19] MEDS: Ipratropium/Albuterol Sulfate 3 ML AMPUL.NEB INHALATION (14:00)
--- NOTE | 2025-01-19 14:15 | RAD_ITS ---
PROCEDURE: CHEST PA AND LATERAL 01/19/2025 REASON FOR EXAM: WHEEZING, COUGH TECHNIQUE: Frontal and lateral views of the chest. COMPARISON: Chest radiograph 12/13/2024. FINDINGS: Hardware: None. Heart: The heart size is normal. Mediastinum: The mediastinal contour is unremarkable. Lungs: Stable findings of emphysema with pleural-parenchymal scarring. No focal consolidation, pleural effusion or pneumothorax. Stable right midlung pulmonary nodule, which may correlate to patient's nipple. Bones: Degenerative changes are identified within the thoracic spine. RAD/Chest PA and Lateral IMPRESSION: NO SIGNIFICANT CHANGE SINCE THE PRIOR EXAM. Reading Location: [id number]
== END 2025-01-19 15:33 | disposition home or self-care (01) ==
PROVIDERS: Emergency Provider Emergency Medicine; Visit Provider Emergency Medicine
DX: J45.901 Unspecified asthma with (acute) exacerbation (principal); J43.9 Emphysema, unspecified; J06.9 Acute upper respiratory infection, unspecified; I10 Essential (primary) hypertension; R91.1 Solitary pulmonary nodule
CPT/HCPCS: 71046; 94640; 96374; 99283; A4216

== ENCOUNTER 2025-03-29 17:45 | Emergency (ER) | payer MEDICAID, SELFPAY ==
[2025-03-29 17:47] VITALS: BP 101/78; PULSE 66; RESP 18; TEMP 36.1; O2SAT 100; BMI 22.9
--- NOTE | 2025-03-29 18:18 | EKG12_ITS ---
Test Reason : DYSRHYTHMIA Blood Pressure : */* mmHG Vent. Rate : 77 BPM Atrial Rate : 77 BPM P-R Int : 130 ms QRS Dur : 92 ms QT Int : 416 ms P-R-T Axes : 72 58 65 degrees QTcB Int : 470 ms Normal sinus rhythm Normal ECG Confirmed by NANCY WEI, DIETER ([id number]), multimedia editor PEBBLES FELICIANO ([id number]) on 04/01/2025 6:42:10 AM Referred By: Sebastian Braswell Confirmed By: DIETER CRUZ MD
--- OUTSIDE RECORDS SUMMARY | 2025-03-29 18:29 | XMS RPT_ITS | CCD ---
Author Organization [facility] Care Team Providers Care Human Resources Executive Assistant Name Role Phone CONSULT, ED PSYCHIATRY TEAM Unavailable Unav ailable PEÑA REA Unavailable Unavailable Care Physician, No Primary Primary Care Provider Unavailable Dr. Maximilian Bernstein Emergency Provider Dr. Trang Valencia Admit Provider Dr. Trang Valencia Attending Provider Dr. Trang Valencia Other Provider Dr. Amparo Nguyen Attending Provider Dr. Amparo Nguyen Other Provider Dr. Nelson Mckeon Attending Provider Dr. Nelson Mckeon Other Provider Care Physician, No Primary Referring Provider Un available MALIA Valerio Attending Provider Dr. Graham Messina Emergency Provider Dr. Jerome Lu Admit Provider Dr. Jerome Lu Attending Provider Dr. Jerome Lu Other Provider Dr. Jaquan Mabry Other Provider Unavailable Care Physician, No Primary Primary Care Provider Unavailable Dr. Nelson Mckeon Attending Provider Dr. Nelson Mckeon Other Provider Dr. Sebas Hess Emergency Provider Dr. Alisha Mcintyre Admit Provider Dr. Alisha Mcintyre Other Provider Dr. Brittny Cope Attending Provider Dr. Brittny Cope Other Provider Dr. Kimberly Márquez Attending Provider Dr. Kimberly Márqeuz Other Provider Care Physician, No Primary Primary Care Provider Unavailable Dr. Graham Messina Emergency Provider Dr. Jerome Lu Admit Provider Dr. Jerome Lu Attending Provider Dr. Jerome Lu Other Provider Dr. Nelson Mckeon Attending Provider Dr. Nelson Mckeon Other Provider Dr. Jaquan Mabry Other Provider Unavailable Dr. Sebas Hess Emergency Provider Dr. Alisha Mcintyre Admit Provider Dr. Alisha Mcintyre Other Provider Dr. Brittny Cope Attending Provider Dr. Brittny Cope Other Provider Dr. Kimberly Márquez Attending Provider Dr. Kimberly Márquez Other Provider Care Physician, No Primary Primary Care Provider Unavailable Care Physician, No Primary Primary Care Provider Unavailable Dr. Michael De Anda Emergency Provider Dr. Alisha Mcintyre Admit Provider Dr. Alisha Mcintyre Other Provider Dr. Nelson Mckeon Attending Provider Dr. Nelson Mckeon Other Provider Care Physician, No Primary Primary Care Provider Unavailable Dr. Graham Messina Emergency Provider Dr. Alisha Mcintyre Attending Provider Dr. Alisha Mcintyre Admit Provider Francisco Javier, Dr. Alisha Lundberg Other Provider Dr. Jaquan Mabry Attending Provider Unavailable Dr. Jaquan Mabry Other Provider Unavailable Unavailable Primary Care Provider Unavailabl e Care Physician, No Primary Primary Care Provider Unavailable Dr. Tae Walsh Emergency Provider Francisco Javier, Dr. Alisha Lundberg Attending Provider Francisco Javier, Dr. Alisha Lundberg Admit Provider White, Dr. Alisha Lundberg Other Provider Dr. Graham Tolbert Attending Provider Dr. Graham Tolbert Other Provider Dr. Amparo Nguyen Other Provider Unavailable Primary Care Provider Unavailabl e LINDA JOSE Attending Unavailable Care Physician, No Primary Primary Care Provider Unavailable Dr. Julius Matthews DO Attending Provider Dr. Julius Matthews DO Emergency Provider Dr. Troy Monroy MD Attending Provider Porfirio WEI, Dr. Simmons Admit Provider Dr. Troy Monroy MD Referring Provider Porfirio WEI, Dr. Simmons Other Provider Dr. Graham Tolbert DO Attending Provider Dr. Graham Tolbert DO Other Provider Dr. Remberto Bernal DO Emergency Provider Dr. Trang Valencia DO Admit Provider Dr. Trang Valencia DO Other Provider Dr. Trang Valencia DO Attending Provider Dr. Graham Messina DO Attending Provider Dr. Graham Messina DO Emergency Provider Dr. Lacho Joy DO Attending Provider ShaynaBeatriz JONES, Dr. Monk Referring Provider Benita JONES, Dr. Monk Emergency Provider Homar Nieves MD Emergency Provider Care Physician, No Primary Primary Care Provider Unavailable Dr. Julius Matthews DO Emergency Provider Dr. Julius Matthews DO Attending Provider Lizbeth WEI, Homar Attending Provider Nico WEI, Dr. Strong Emergency Provider Care Physician, No Primary Primary Care Unava ilable Tae Walsh Attending Unavailable Care Physician, No Primary Primary Care Unava ilable Homar Nieves Attending Unavailable Care Physician, No Primary Primary Care Unava ilable Trang Valencia Consulting Unavailable Trang Valencia Admitting Unavailable Trang Valencia Attending Unavailable Care Physician, No Primary Primary Care Unava ilable Monroy, Troy Referring Unavailable Monroy, Troy Consulting Unavailable Monroy, Troy Admitting Unavailable Joppvalentine, Graham Attending Unavailable Jopperi, Graham Consulting Unavailable Care Physician, No Primary Primary Care Unava ilable Monroy, Troy Attending Unavailable Jopperi, Graham Attending Unavailable Jopperi, Graham Consulting Unavailable Klusty-Beatriz, Lacho Referring Unavailabl e Klusty-Beatriz, Lacho Attending Unavailabl e Care Physician, No Primary Primary Care Unava ilable Care Physician, No Primary Primary Care Unava ilable Graham Messina Attending Unavailable CassieJulius haider Attending Unavailable Care Physician, No Primary Primary Care Unava ilable CassieJulius haider Attending Unavailable Care Physician, No Primary Primary Care Unava ilable Care Physician, No Primary Primary Care Unava ilable Andrew Henning Attending Unavailable Cassie, Julius Attending Unavailable Care Physician, No Primary Primary Care Unava ilable Care Physician, No Primary Primary Care Unava ilable Andrew Henning Attending Unavailable Care Physician, No Primary Primary Care Unava ilable Monroy, Troy Referring Unavailable Monroy, Troy Consulting Unavailable Monroy, Troy Admitting Unavailable Jopperi, Graham Attending Unavailable Jopperi, Graham Attending Unavailable Care Physician, No Primary Primary Care Unava ilable Trang Valencia Consulting Unavailable Trang Valencia Admitting Unavailable Trang Valencia Referring Unavailable Maximilian Bernstein Attending Unavailable Care Physician, No Primary Primary Care Unava ilable Allergies Allergy Classification Reported Allergen(s) Allergy Type Date of Onset Reaction(s) Facility (1 source) Seasonal allergy; Translations: [SEASONAL ALLERGIES] Propensity to adverse reactions (disorder) 3 [facility] Repository Medications Current Medications Medication Drug Class(es) Dates Sig (Normalized) Sig (Original) [id number] 200 actuat albuterol 0.09 mg/actuat metered dose inhaler (20 sources) beta2-Adrenergic Agonist Start: 12-13-2024 Albuterol Sulfate (Ventolin Hfa) 90 mcg/actuation HFA aerosol inhaler Active 1 - 2 NMA INHALATION EVERY 4 HOURS NEEDED as needed for Wheezing 1 January 19, 2025 12:00am Start: 11-12-2024 End: 11-20-2024 Albuterol Sulfate 90 mcg/act uation HFA aerosol inhaler Active 1 NMA INHALATION EVERY 6 HOURS as needed for shortness of breath or wheezing 8.November 20, 2024 6:13pm Start: 09-07-2024 Albuterol Sulf ate 90 mcg/actuation aerosol powdr breath activated Active 2 NMA INHALATION EVERY 6 HOURS as needed for shortness of breath or wheezing 1 September 07, 2024 1:00am Start: 12-02-2022 End: 08-03-2024 Albuterol Sulfate (Proair Hf a) 90 mcg/actuation HFA aerosol inhaler Discontinued 2 NMA INHALATION EVERY 6 HOURS as needed for shortness of breath or wheezing 8.December 02, 2022 1:00am August 03, 2024 8:40pm Start: 12-02-2022 take 1 puff(s) by in halation every six hours Albuterol Sulfate (Proair Hfa) 90 mcg/actuation HFA aerosol inhaler Active 2 PUFF INHALATION EVERY 6 HOURS 8.December 02, 2022 12:00am Start: 09-09-2022 End: 08-03-2024 Albuterol Sulfate (Ventolin Hfa) 90 mcg/actuation HFA aerosol inhaler Discontinued 2 NMA INHALATION EVERY 4 HOURS NEEDED as needed for Wheezing June 02, 2024 12:00am August 03, 2024 8:40pm Start: 07-26-2022 End: 10-29-2023 take 1 puff(s) by inhalation every four hours as needed Albuterol Sulfate (Ventolin Hfa) 90 mcg/actuation HFA aerosol inhaler Discontinued 1 - 2 PUFF INHALATION EVERY 4 HOURS NEEDED 8.5 October 15, 2023 12:00am October 29, 2023 4:24am Start: 07-18-2022 take 1 puff(s) by in halation every six hours Albuterol Sulfate (Proventil Hfa) 90 mcg/actuation HFA aerosol inhaler Active 1 PUFF INHALATION EVERY 6 HOURS 6.7 July 17, 2022 11:00pm Start: 05-24-2022 take 1 puff(s) by in halation every four hours as needed Albuterol Sulfate (Proair Hfa) 90 mcg/actuation HFA aerosol inhaler Active 2 PUFF INHALATION EVERY 4 HOURS NEEDED May 24, 2022 12:00am Start: 03-28-2022 take 1 puff(s) by in halation every four hours as needed Albuterol Sulfate (Ventolin Hfa) 90 mcg/actuation HFA aerosol inhaler Active 2 PUFF INHALATION EVERY 4 HOURS NEEDED March 28, 2022 12:00am amoxicillin 875 mg / clavulanate 125 mg oral tablet (2 sources) Penicillin-class Antibacterial Start: 10-22-2024 Amoxicillin-Pot Clavulanate 875-125 mg tablet Active 1 {tbl} PO Q12H October 22, 2024 1:00am codeine phosphate 2 mg/ml / promethazine hydrochloride 1.25 mg/ml oral solution (1 source) Opioid Agonist, Phenothiazine Start: 09-09-2022 take 1 mL by mouth four times daily as needed Promethazine-Codein e Active 5 ML PO 4 TIMES DAILY NEEDED 140 September 09, 2022 4:14am doxycycline monohydrate 100 mg oral capsule (1 source) Tetracycline-class Drug Start: 03-28-2022 take 100 mg by mouth twice daily Doxycycline Monohydrate Active 100 MG PO TWICE A DAY March 28, 2022 12:00am 12 hr guaiFENesin 1200 mg extended release oral tablet (2 sources) Start: 11-12-2024 take 1 tablet by mouth twice daily, then take 1 tablet by mouth every twelve hours Guaifenesin (Mucus Relief Er) 1,200 mg Tablet Extended Release 12hr Active 1200 mg PO TWICE A DAY November 12, 2024 1:00am Multivitamin Tablet (2 sources) Start: 11-12-2024 Multivitamin Tablet Active 1 {tbl} PO WITH LUNCH November 12, 2024 1:00am [place] (Nk) (1 source) Start: 03-19-2022 [place] (Nk) Active March 19, 2022 12:00am OLANZapine 5 mg oral tablet (2 sources) Atypical Antipsychotic take 1 tablet by mouth once daily at bedtime OLANZapine (ZYPREXA) 5 mg tablet Take 5 mg by mouth daily at bedtime. Active Comment on above: Take 5 mg by mouth d aily at bedtime. oseltamivir 75 mg oral capsule (2 sources) Neuraminidase Inhibitor Start: 09-05-2022 take 75 mg by mouth twice daily Oseltamivir Active 75 MG PO TWICE A DAY September 05, 2022 12:00am polyethylene glycol 3350 [id number] mg / potassium chloride 2970 mg / sodium bicarbonate 6740 mg / sodium chloride 5860 mg / sodium sulfate 24600 mg powder for oral solution (1 source) Osmotic Laxative Start: 08-28-2023 End: 08-28-2023 peg 3350-Electrolytes (GOLYTELY) 236-22.74-6.74 -5.86 gram suspension Indications: Screening for colon cancer Take 4,000 mL by mouth one time only for 1 dose. Refer to printed prep instructions from your provider. 4000 mL 0 08/28/2023 08/28/2023 Active Comment on above: Take 4,000 mL by simón th one time only for 1 dose. Refer to printed prep instructions from your provider. predniSONE 20 mg oral tablet (20 sources) Start: 10-22-2024 take 2 tablets by mouth once daily Prednisone 20 mg tablet Active 40 mg PO DAILY 07 06November 27, 2024 1:00am Start on 11/28/2024 Start: 09-19-2024 End: 10-21-2024 take 1 tablet by mouth once daily Prednisone 50 mg tablet Discontinued 50 mg PO DAILY September 19, 2024 1:00am October 21, 2024 5:27pm Start: 09-07-2024 End: 10-21-2024 take 1 tablet by mouth once daily Prednisone 20 mg tablet Discontinued 20 mg PO DAILY 5 September 07, 2024 1:00am October 21, 2024 5:27pm Start: 01-22-2023 End: 09-01-2023 take 2 tablets by mouth once daily Prednisone 20 mg tablet Discontinued 40 mg PO DAILY 10 January 22, 2023 12:00am September 01, 2023 1:30am Start: 01-22-2023 End: 09-01-2023 take 40 mg by mouth once daily Prednisone Discontinued 40 MG PO DAILY 10 January 21, 2023 11:00pm September 01, 2023 12:30am Start: 10-09-2022 take 50 mg by mouth once daily Prednisone Active 50 MG PO DAILY October 09, 2022 12:00am Start: 09-09-2022 take 40 mg by mouth once daily Prednisone Active 40 MG PO DAILY 10 September 09, 2022 12:00am Start: 07-26-2022 take 60 mg by mouth once daily Prednisone Active 60 MG PO DAILY July 26, 2022 12:00am Start: 03-28-2022 take 40 mg by mouth once daily Prednisone Active 40 MG PO DAILY March 28, 2022 12:00am Start: 09-20-2020 End: 09-23-2020 take 3 tablets by mouth once daily at mealtime Prednisone 20 MG tablet Discontinued 60 mg PO DAILY September 20, 2020 1:00am September 23, 2020 1:24am With food Start: 09-20-2020 End: 09-23-2020 take 60 mg by mouth once daily at mealtime Prednisone Discontinued 60 MG PO DAILY September 20, 2020 12:00am September 23, 2020 12:24am With food Completed/Discontinued Medications Medication Drug Class(es) Dates Sig (Normalized) Sig (Original) azithromycin 250 mg oral tablet (2 sources) Macrolide Antimicrobial Start: End: Azithromycin 250 mg tablet Discontinued 0 PO .COMPLEX September 19, 2024 1:00am October 21, 2024 5:27pm For 250 mg dose pack: take 500 mg today (day 1), then 250 mg for 4 days (days 2-5) chlordiazePOXIDE hydrochloride 25 mg oral capsule (2 sources) Benzodiazepine Start: 4 End: 4 take 1 capsule by mouth four times daily Chlordiazepoxide Hcl 25 mg capsule Discontinued 25 mg PO 4 TIMES DAILY 18 02June 03, 2024 12:00am August 03, 2024 8:40pm etodolac 200 mg oral capsule (20 sources) Nonsteroidal Anti-inflammatory Drug Start: 3 End: 4 take 1 capsule by mouth three times daily at mealtime Etodolac 200 MG capsule Discontinued 200 mg PO 3 TIMES DAILY WITH MEALS August 14, 2013 1:00am October 05, 2013 7:14pm with food hydrocortisone 10 mg/ml topical cream (2 sources) Corticosteroid Start: 4 End: 4 Hydrocortisone 1 % cream Discontinued 1 NMA TOPICAL TWICE A DAY 28.4 5 June 02, 2024 12:00am June 03, 2024 5:23am Multivitamin (Daily Multi-Vitamin) tablet (3 sources) Start: 4 End: 4 Multivitamin (Daily Multi-Vitamin) tablet Discontinued 1 {tbl} PO DAILY October 31, 2023 1:00am June 03, 2024 5:23am Start: 10-31-2023 take 1 tablet by simón once daily Multivitamin (Daily Multi-Vitamin) tablet Active 1 TABLET PO DAILY October 31, 2023 12:00am naproxen 500 mg oral tablet (11 sources) Nonsteroidal Anti-inflammatory Drug Start: 03-26-2023 End: 09-01-2023 take 1 tablet by mouth twice daily Naproxen 500 mg tablet Discontinued 500 mg PO TWICE A DAY March 26, 2023 12:00am September 01, 2023 1:30am ondansetron 4 mg disintegrating oral tablet (2 sources) Serotonin-3 Receptor Antagonist Start: 06-03-2024 End: 08-03-2024 take 1 tablet by mouth three times daily as needed for nausea and vomiting Ondansetron 4 mg tablet,disintegr ating Discontinued 4 mg PO THREE TIMES A DAY as needed for nausea and vomiting June 03, 2024 6:21am August 03, 2024 8:40pm penicillin v potassium 500 mg oral tablet (11 sources) Start: 03-26-2023 End: 09-01-2023 take 1 tablet by mouth four times daily Penicillin V Potassium 500 mg tablet Discontinued 500 mg PO 4 TIMES DAILY 40 March 26, 2023 12:00am September 01, 2023 1:30am sulfamethoxazole 800 mg / trimethoprim 160 mg oral tablet (2 sources) Dihydrofolate Reductase Inhibitor Antibacterial, Sulfonamide Antimicrobial Start: 06-02-2024 End: 08-03-2024 Sulfamethoxazole -Trimethoprim 800-160 mg tablet Discontinued 1 {tbl} PO TWICE A DAY June 02, 2024 12:00am August 03, 2024 8:40pm Problems Active Problems Problem Classification Problem Date Documented Date Episodic/Chronic Abdominal hernia (20 sources) Inguinal hernia; Translations: [Unilateral inguinal hernia, without obstruction or gangrene, not specified as recurrent] 02-20-2022 Episodic Acute bronchitis (20 sources) Acute bronchitis with bronchospasm; Translations: [Acute bronchitis, unspecified] 04-05-2022 Episodic Administrative/socia l admission (20 sources) Repeated prescription; Translations: [Encounter for issue of repeat prescription] Onset: 12-02-2024 10-31-2022 Episodic Alcohol-related disorders (20 sources) Alcohol intoxication; Translations: [Alcohol abuse with intoxication, unspecified] Chronic Alcohol-related disorders (20 sources) Alcohol intoxication; Translations: [Alcohol use, unspecified with intoxication, unspecified] Episodic Anxiety disorders (4 sources) Anxiety; Translations: [Anxiety disorder, unspecified] 06-11-2024 Chronic Asthma (20 sources) Exacerbation of asthma; Translations: [Unspecified asthma with (acute) exacerbation] Onset: 11-19-2024 09-21-2020 Chronic Cardiac dysrhythmias (20 sources) ECG: sinus tachycardia; Translations: [Tachycardia, unspecified] 10-24-2020 Episodic Chronic obstructive pulmonary disease and bronchiectasis (20 sources) [place] of lung; Translations: [Emphysema, unspecified] 02-07-2021 Chronic Chronic obstructive pulmonary disease and bronchiectasis (2 sources) Bronchitis; Translations: [Bronchitis, not specified as acute or chronic] 09-27-2024 Episodic Conditions associated with dizziness or vertigo (20 sources) Dizziness; Translations: [Dizziness and giddiness] 02-20-2022 Episodic Diabetes mellitus without complication (5 sources) Hyperglycemia; Translations: [Hyperglycemia, unspecified] Onset: 11-19-2024 11-19-2024 Episodic Diseases of white blood cells (5 sources) Leukocytosis; Translations: [Elevated white blood cell count, unspecified] Onset: 11-19-2024 11-19-2024 Chronic Disorders of teeth and jaw (20 sources) Dislocation of tooth; Translations: [Dislocation of tooth, initial encounter] 11-03-2022 Episodic E Codes: Fall (16 sources) Fall; Translations: [Unspecified fall, initial encounter] 11-03-2022 Episodic Esophageal disorders (20 sources) Gastroesophageal reflux disease; Translations: [Gastro-esophageal reflux disease without esophagitis] 03-19-2022 Chronic Essential hypertension (2 sources) Hypertensive disorder; Translations: [Essential (primary) hypertension] 08-11-2024 Chronic Fluid and electrolyte disorders (20 sources) Dehydration; Translations: [Dehydration] 02-20-2022 Episodic Headache; including migraine (20 sources) Headache; Translations: [Headache] 06-29-2021 Episodic Inflammation; infection of eye (except that caused by tuberculosis or sexually transmitteddisease) (20 sources) Acute atopic conjunctivitis; Translations: [Acute atopic conjunctivitis, bilateral] 07-27-2021 Episodic Influenza (19 sources) Influenza due to Influenza A virus; Translations: [Influenza due to other identified influenza virus with other respiratory manifestations] 09-13-2022 Episodic Mood disorders (4 sources) Bipolar disorder; Translations: [Bipolar disorder, unspecified] 06-11-2024 Chronic Open wounds of extremities (14 sources) Laceration of hand; Translations: [Laceration without foreign body of left hand, initial encounter] 12-15-2022 Episodic Open wounds of head; neck; and trunk (16 sources) Laceration of lip ; Translations: [Laceration without foreign body of lip, initial encounter] 11-03-2022 Episodic Other injuries and conditions due to external causes (1 source) Unspecified injury of unspecified lower leg, initial encounter; Translations: [Unspecified injury of unspecified lower leg, initial encounter] Onset: 11-19-2024 Episodic Other lower respiratory disease (8 sources) Radiologic infiltrate of lung ; Translations: [Other nonspecific abnormal finding of lung field] 09-13-2022 Episodic Other lower respiratory disease (20 sources) H/O: asthma; Translations: [Personal history of other diseases of the respiratory system] 10-31-2022 Episodic Other lower respiratory disease (11 sources) Single lobe lung infiltrate; Translations: [Other nonspecific abnormal finding of lung field] 09-13-2022 Episodic Other lower respiratory disease (2 sources) Cough; Translations: [Cough] 12-13-2024 Episodic Other lower respiratory disease (2 sources) Nodule of lung; Translations: [Solitary pulmonary nodule] 12-13-2024 Episodic Other lower respiratory disease (1 source) Shortness of breath; Translations: [Shortness of breath] Onset: 01-23-2025 Episodic Other nervous system disorders (20 sources) Cold feet; Translations: [Unspecified disturbances of skin sensation] 08-22-2022 Episodic Other screening for suspected conditions (not mental disorders or infectious disease) (1 source) Patient encounter status; Translations: [Encounter for screening for malignant neoplasm of colon] 08-28-2023 Episodic Other skin disorders (2 sources) Folliculitis; Translations: [Follicular disorder, unspecified] 06-10-2024 Episodic Other skin disorders (1 source) Rash and other nonspecific skin eruption; Translations: [Rash and other nonspecific skin eruption] Onset: 11-19-2024 Episodic Other upper respiratory infections (20 sources) Viral upper respiratory tract infection; Translations: [Acute upper respiratory infection, unspecified] Episodic Residual codes; unclassified (20 sources) Drug therapy finding; Translations: [Other specified health status] 08-03-2022 Episodic Residual codes; unclassified (1 source) Alcoholism; Translations: [Alcohol use disorder] 06-11-2024 Episodic Residual codes; unclassified (1 source) Other specified conditions influencing health status; Translations: [Alcohol use disorder] 06-11-2024 Episodic Respiratory failure; insufficiency; arrest (adult) (8 sources) Acute hypoxemic and hypercapnic respiratory failure; Translations: [Acute respiratory failure with hypoxia] Onset: 11-19-2024 11-19-2024 Episodic Screening and history of mental health and substance abuse codes (6 sources) H/O: manic depressive disorder; Translations: [Personal history of other mental and behavioral disorders] 06-06-2023 Episodic Skin and subcutaneous tissue infections (1 source) Cutaneous abscess, unspecified; Translations: [Cutaneous abscess, unspecified] Onset: 12-14-2024 Episodic Substance-related disorders (20 sources) Substance abuse; Translations: [Other psychoactive substance abuse, uncomplicated] Onset: 10-23-2024 Chronic Superficial injury; contusion (18 sources) Contusion of nose; Translations: [Contusion of nose, initial encounter] 11-03-2022 Episodic Syncope (16 sources) Syncope; Translations: [Syncope and collapse] 11-03-2022 Episodic Unclassified (1 source) Other stimulant use, unspecified with intoxication, uncomplicated / F15.920(ICD-10) Onset: 06-05-2018 Unclassified (1 source) Other psychoactive substance use, 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(ICD-10) Onset: 06-05-2018 Unclassified (1 source) Alcohol withdrawal delirium, acute, mixed level of activity Unclassified (1 source) Cough, unspecified; Translations: [Cough, unspecified] Onset: 12-23-2024 Unclassified (1 source) Other acidosis; Translations: [Other acidosis] Onset: 11-19-2024 Past or Other Problems Problem Classification Problem Date Documented Da te Episodic/Chronic Unclassified (1 source) Other stimulant use, unspecified with intoxication, uncomplicated; Translations: [Other stimulant use, unspecified with intoxication, uncomplicated] Onset: 06-05-2018 Unclassified (1 source) Other psychoactive substance use, 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; Translations: [Other psychoactive substance use, 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] Onset: 06-05-2018 Unclassified (20 sources) Acute alcohol withdrawal Unclassified (20 sources) Readiness finding; Translations: [Desire for detoxification] Results Test Name Value Interpretation Reference Range Facility [facility] 02-03-2025 [facility] Letter Text Normal [facility] Chest PA and Lateralon 01-19 Chest PA and Lateral [facility] [address] [place] [id number] Chest PA and Lateral MR#: [id number] Acct: [id number] Name: MICHAEL MCNEILL SANTOS Rep #: [id number] : 1975 M 49 From: Liset Stanton nd, MD PCP: Care Physician,No Primary Status: REG ER Study: Chest PA and Lateral Date of Exam: 01/19/25 Exam# [id number] Ordering Dr: Yee Jaffe PROCEDURE: CHEST PA AND LATERAL 01/19/2025 REASON FOR EXAM: WHEEZING, COUGH TECHNIQUE: Frontal and lateral views of the chest. COMPARISON: Chest radiograph 12/13/2024. FINDINGS: Hardware: None. Heart: The heart size is normal. Mediastinum: The mediastinal contour is unremarkable. Lungs: Stable findings of emphysema with pleural-parenchymal scarring. No focal consolidation, pleural effusion or pneumothorax. Stable right midlung pulmonary nodule, which may correlate to patient's nipple. Bones: Degenerative changes are identified within the thoracic spine. RAD/Chest PA and Lateral IMPRESSION: NO SIGNIFICANT CHANGE SINCE THE PRIOR EXAM. Reading Location: [id number] CC: MALIA Moctezuma; No Primary Care Physician Director Of Food And Nutrition Services: Signed Normal [facility] Emergency Department Summary on 01-19-2025 Emergency Department Summary [facility] Medical Records Department [address] [place] [address] Emergency Department Summary 01/19/25 MR#: [id number] Acct: [id number] Name: MICHAEL MCNEILL SANTOS Rep #: [id number] : 1975 49 From: Yee FINLEY PCP: Care Physician,No Primary Status:DEP ER Location: ED HPI History of Present Illness Chief Complaint: Shortness of Breath Narrative Narrative: Patient presenting today due to wheezing that started today when he woke up. He reports that he has had a nonproductive cough over the past few days. He has a history of asthma, he denies any tobacco abuse. He ran out of his inhaler and is requesting a breathing treatment at this time. He denies fevers, chills, chest pain. He has no history of blood clots or recent surgery/travel/immobili zation. [facility] Medical History ETOH abuse Methamphetamine abuse Asthma Depression Anxiety Methamphetamine abuse Ankle fracture, left Bipolar disorder Depression Anxiety Past history of chewing tobacco use Asthma with COPD Anxiety and depression Inguinal hernia bilateral, non-recurrent Hypertension Stroke/cerebrovascular accident Alcohol abuse Bulla of lung GERD (gastroesophageal reflux disease) Home Medications ???Medication ???Instructions ???Recorded ???Last Taken ???Type albuterol sulfate 90 mcg/actuation 2 inh inhalation Q6H PRN shortne ss 09/07/24 10/21/24 Rx breath activated powder inhaler of breath or wheezing #1 ea amoxicillin 875 mg-potassium 1 tab PO Q12H #10 tabs 10/22/24 Un known Rx clavulanate 125 mg tablet prednisone 20 mg tablet 40 mg (2 x 20 mg) PO DAILY #10 tab s 10/22/24 Unknown Rx guaifenesin 1,200 mg tablet, 1,200 mg PO BID #10 tabs 11/12/24 Unknown Rx extended release 12 hr (Mucus Relief ER) multivitamin 1 tab PO LUNCH #0 tabs 11/12/24 Un known Rx prednisone 20 mg tablet 40 mg (2 x 20 mg) PO DAILY #10 tab s 11/12/24 Unknown Rx albuterol sulfate 90 mcg/actuation 1 puff inhalation Q6H PRN Unknown Rx aerosol inhaler shortness of breath or wheezing #8.5 grams prednisone 20 mg tablet 40 mg (2 x 20 mg) PO DAILY 5 days 11/27/24 Unknown Rx #10 tabs albuterol sulfate 90 mcg/actuation 1 - 2 puff inhalation Q4H PRN ME N 12/13/24 Unknown Rx aerosol inhaler (Ventolin HFA) Wheezing #1 ea prednisone 20 mg tablet 40 mg (2 x 20 mg) PO DAILY #10 tab s 12/13/24 Unknown Rx albuterol sulfate 90 mcg/actuation 1 - 2 puff inhalation Q4H PRN ME N 01/19/25 Unknown Rx aerosol inhaler (Ventolin HFA) Wheezing #1 inh prednisone 20 mg tablet 40 mg (2 x 20 mg) PO DAILY 5 days 01/19/25 Unknown Rx #10 tabs Allergy/AdvReac Type Severity Reaction Status Date / Time No Known Allergies Allergy Verified 01/19/25 13:47 Family History Father Alcoholism CAD (coronary artery disease) Heart disease Hypertension Mother Alcoholism Seizures Surgical History History of ankle surgery Social History housing: apartment Smoking Status: Never smoker Smokeless tobacco user: chewing tobacco how long ago did patient quit smoking: Notes no cig tob use, prior chew only but no current, ongoing cannabis use. alcohol intake: current alcohol intake frequency: a few times a week details: 5-6 beers daily, occasionally whiskey. substance use type: marijuana, amphetamines, opiates and methamphetamine ROS ROS ED Constitutional Constitutional ED: Denies chills or fever(s) Cardiovascular Cardiovascular: Denies chest pain Respiratory/Chest Respiratory/Chest: Reports cough, dyspnea on exertion and wheezing; Denies sputum Gastrointestinal Gastrointestinal: Denies abdominal pain, nausea or vomiting Musculoskeletal Musculoskeletal: Denies arthralgias or myalgias Integumentary Denies rash Neurologic Neurologic: Denies weakness EXAM Physical Exam Const Vital Signs: 01/19/25 13:46 01/19/25 13:57 01/19/25 14:11 Temperature 98 F Temperature Source Temporal Pulse Rate 93 93 Respiratory Rate 30 H 24 H Respiratory Effort Short of Breath Respiratory Pattern Tachypnea Blood Pressure 139/95 H Blood Pressure Mean 109 Pulse Ox 91 Oxygen Delivery Method Room Air Room Air 01/19/25 14:11 01/19/25 14:28 01/19/25 15:00 Temperature Temperature Source Pulse Rate 90 71 82 Respiratory Rate Respiratory Effort Respiratory Pattern Blood Pressure 114/60 112/91 H 124/75 H Blood Pressure Mean 78 98 91 Pulse Ox 100 98 97 Oxygen Delivery Method Room Air Room Air Room Air 01/19/25 15:30 01/19/25 15:32 Tempera (more content not included)... Normal [facility] Chest PA and Lateralon 12-13 Chest PA and Lateral [facility] Imaging Services [address] [place] [address] Chest PA and Lateral MR#: [id number] Acct: [id number] Name: MICHAEL MCNEILLN Rep #: [id number] : 1975 M 49 From: Juan Daniel hampton MD PCP: Care Physician,No Primary Status: REG ER Study: Chest PA and Lateral Date of Exam: 12/13/24 Exam# [id number] Ordering Dr: Homar Nieves MD PROCEDURE: CHEST PA AND LATERAL REASON FOR EXAM: COUGH TECHNIQUE: Frontal lateral radiographs were obtained. COMPARISON: Comparison is made with prior study dated 2024. FINDINGS: Hyperinflation and findings suggestive of COPD. Persistent pleural-parenchymal changes at the right lung apex. This has slightly worsened as compared to prior study. There is a faint 10.9 mm by 8.9 mm nodule in the lateral right midlung. Correlation with CT scan is recommended. RAD/Chest PA and Lateral IMPRESSION: Persistent and slightly worsening of the right apical pleural-parenchymal changes. Findings suggestive of a 8.9 mm x 10.9 mm nodule in the lateral aspect of the right midlung. Correlation with CT recommended. Reading Location: [facility] CC: Dr. Homar Nieves MD; No Primary Care Physician Director Of Food And Nutrition Services: Signed Normal [facility] Emergency Department Summary on 12-13-2024 Emergency Department Summary [facility] Medical Records Department [address] [place] [id number] Emergency Department Summary 12/13/24 MR#: [id number] Acct: [id number] Name: MICHAEL MCNEILL SANTOS Rep #: [id number] : 1975 49 From: Homar Nieves MD PCP: Care Physician,No Primary Status:REG ER Location: ED HPI History of Present Illness Chief Complaint: Cough Narrative Narrative: 49-year-old male past medical history of asthma, presents with chronic cough that he has had for the last few months. He states that with his history of asthma, wintertime is the worst. He has had a cough of clear sputum that has been intermittent. Over the last few weeks he has been using his albuterol inhaler more often. He ran out and is now having continued cough and mild shortness of breath. He states last time he was here, he received a small albuterol inhaler, but states he needs the big 1. He denies any fever, no chills, no chest pain associated with this. No leg swelling. He is here for an albuterol inhaler prescription and at least 2 weeks of cough if not longer. [facility] Medical History ETOH abuse Methamphetamine abuse Asthma Depression Anxiety Methamphetamine abuse Ankle fracture, left Bipolar disorder Depression Anxiety Past history of chewing tobacco use Asthma with COPD Anxiety and depression Inguinal hernia bilateral, non-recurrent Hypertension Stroke/cerebrovascular accident Alcohol abuse Bulla of lung GERD (gastroesophageal reflux disease) Home Medications ???Medication ???Instructions ???Recorded ???Last Taken ???Type albuterol sulfate 90 mcg/actuation 2 inh inhalation Q6H PRN shortne ss 09/07/24 10/21/24 Rx breath activated powder inhaler of breath or wheezing #1 ea amoxicillin 875 mg-potassium 1 tab PO Q12H #10 tabs 10/22/24 Un known Rx clavulanate 125 mg tablet prednisone 20 mg tablet 40 mg (2 x 20 mg) PO DAILY #10 tab s 10/22/24 Unknown Rx guaifenesin 1,200 mg tablet, 1,200 mg PO BID #10 tabs 11/12/24 Unknown Rx extended release 12 hr (Mucus Relief ER) multivitamin 1 tab PO LUNCH #0 tabs 11/12/24 Un known Rx prednisone 20 mg tablet 40 mg (2 x 20 mg) PO DAILY #10 tab s 11/12/24 Unknown Rx albuterol sulfate 90 mcg/actuation 1 puff inhalation Q6H PRN Unknown Rx aerosol inhaler shortness of breath or wheezing #8.5 grams prednisone 20 mg tablet 40 mg (2 x 20 mg) PO DAILY 5 days 11/27/24 Unknown Rx #10 tabs albuterol sulfate 90 mcg/actuation 1 - 2 puff inhalation Q4H PRN ME N 12/13/24 Unknown Rx aerosol inhaler (Ventolin HFA) Wheezing #1 ea prednisone 20 mg tablet 40 mg (2 x 20 mg) PO DAILY #10 tab s 12/13/24 Unknown Rx Allergy/AdvReac Type Severity Reaction Status Date / Time No Known Allergies Allergy Verified 12/13/24 11:19 Family History Father Alcoholism CAD (coronary artery disease) Heart disease Hypertension Mother Alcoholism Seizures Surgical History History of ankle surgery Social History housing: apartment Smoking Status: Never smoker Smokeless tobacco user: chewing tobacco how long ago did patient quit smoking: Notes no cig tob use, prior chew only but no current, ongoing cannabis use. alcohol intake: current alcohol intake frequency: a few times a week details: 5-6 beers daily, occasionally whiskey. substance use type: marijuana, amphetamines, opiates and methamphetamine ROS ROS ED ROS Narrative Review of systems positive for chronic cough, intermittent over the last few months, worse over the last few weeks. Out of albuterol inhaler. No chest pain, no fevers or chills, mild shortness of breath. No leg swelling. No other symptoms especially nausea, or vomiting. EXAM Physical Exam Narrative Exam Narrative: Afebrile. Vital signs noted. Nontoxic-appearing. Already a vascular examination reveals a regular rate and rhythm. Lungs are clear to auscultation bilaterally. No wheezing or stridor. No accessory muscle use. Abdomen soft and nontender without guarding or rebound. Positive bowel sounds. Neurological examination is nonfocal and nonlateralizing. Const Vital Signs: 12/13/24 11:18 12/13/24 12:35 Temperature 96.6 F L Temperature Source Oral Pulse Rate 88 Respiratory Rate 16 Respiratory Effort Labored Respiratory Depth Shallow Respiratory Pattern Tachypnea Blood Pressure 153/108 H Blood Pressure Mean 123 Pulse Ox 100 Oxygen Delivery Method Room Air Room Air MDM MDM MDM Narrative Medical decision making narrative: I reviewed his prior problems, has had asthma exacerbation as well as problems with anxiety and (more content not included)... Normal [facility] Emergency Department Summary on 12-04-[address] [facility] Medical Records Department [address] [place] [address] Emergency Department Summary 12/04/24 MR#: [id number] Acct: [id number] Name: MICHAEL MCNEILL SANTOS Rep #: [id number] : 1975 49 From: Julius Matthews DO PCP: Care Physician,No Primary Status:DEP ER Location: ED HPI History of Present Illness Chief Complaint: [facility] Medical History ETOH abuse Methamphetamine abuse Asthma Depression Anxiety Methamphetamine abuse Ankle fracture, left Bipolar disorder Depression Anxiety Past history of chewing tobacco use Asthma with COPD Anxiety and depression Inguinal hernia bilateral, non-recurrent Hypertension Stroke/cerebrovascular accident Alcohol abuse Bulla of lung GERD (gastroesophageal reflux disease) Home Medications ???Medication ???Instructions ???Recorded ???Last Taken ???Type albuterol sulfate 90 mcg/actuation 2 inh inhalation Q6H PRN shortne ss 09/07/24 10/21/24 Rx breath activated powder inhaler of breath or wheezing #1 ea amoxicillin 875 mg-potassium 1 tab PO Q12H #10 tabs 10/22/24 Un known Rx clavulanate 125 mg tablet prednisone 20 mg tablet 40 mg (2 x 20 mg) PO DAILY #10 tab s 10/22/24 Unknown Rx guaifenesin 1,200 mg tablet, 1,200 mg PO BID #10 tabs 11/12/24 Unknown Rx extended release 12 hr (Mucus Relief ER) multivitamin 1 tab PO LUNCH #0 tabs 11/12/24 Un known Rx prednisone 20 mg tablet 40 mg (2 x 20 mg) PO DAILY #10 tab s 11/12/24 Unknown Rx albuterol sulfate 90 mcg/actuation 1 puff inhalation Q6H PRN Unknown Rx aerosol inhaler shortness of breath or wheezing #8.5 grams prednisone 20 mg tablet 40 mg (2 x 20 mg) PO DAILY 5 days 11/27/24 Unknown Rx #10 tabs Allergy/AdvReac Type Severity Reaction Status Date / Time No Known Allergies Allergy Verified 12/04/24 16:42 Family History Father Alcoholism CAD (coronary artery disease) Heart disease Hypertension Mother Alcoholism Seizures Surgical History History of ankle surgery Social History housing: homeless Smoking Status: Never smoker Smokeless tobacco user: chewing tobacco how long ago did patient quit smoking: Notes no cig tob use, prior chew only but no current, ongoing cannabis use. alcohol intake: current alcohol intake frequency: a few times a week details: 5-6 beers daily, occasionally whiskey. substance use type: marijuana, amphetamines, opiates and methamphetamine EXAM Physical Exam Const Vital Signs: 12/04/24 16:39 Temperature 98.1 F Temperature Source Temporal Pulse Rate 89 Respiratory Rate 16 Blood Pressure 90/77 Blood Pressure Mean 81 Pulse Ox 98 Oxygen Delivery Method Room Air MDM MDM MDM Narrative Medical decision making narrative: Patient eloped from emergency department prior to my evaluation. Discharge Plan Triage Chief Complaint: Abscess ED Provider: Julius Matthews Dx/Rx/DC Orders Prescriptions: No Action albuterol sulfate 90 mcg/actuation aerosol powdr breath activated 2 inh inhalation Q6H PRN (Reason: shortness of breath or wheezing) Qty: 1 3RF multivitamin Tablet 1 tab PO LUNCH Qty: 0 0RF guaifenesin [Mucus Relief ER] 1,200 mg Tablet Extended Release 12hr 1,200 mg PO BID Qty: 10 0RF prednisone 20 mg tablet 40 mg PO DAILY Qty: 10 0RF prednisone 20 mg tablet 40 mg PO DAILY Qty: 10 0RF amoxicillin-pot clavulanate 875-125 mg tablet 1 tab PO Q12H Qty: 10 0RF albuterol sulfate 90 mcg/actuation HFA aerosol inhaler 1 puff inhalation Q6H PRN (Reason: shortness of breath or wheezing) Qty: 8.5 0RF prednisone 20 mg tablet 40 mg PO DAILY 5 Days Qty: 10 0RF Rx Instructions: Start on 11/28/2024 Primary Care Provider: Care Physician,No Primary Print Language: [place]ese Disposition Disposition: LEFT WITHOUT BEING SEEN Discharge Date/Time: 12/04/24 20:20 What to do if you have Problems For any increased pain, shortness of breath, bleeding, nausea or vomiting, chest pain, or any unexpected problems, contact your Primary Care Provider. Call [facility] ([phone]) or report to the closest Emergency Room. Call 911 if necessary. 12/04/24 0475 Cosigner Signature (if applicable): CC: No Primary Care Physician Signed Normal [facility] 12 Lead EKGon 2024 12 Lead EKG [facility] Cardiovascular Services [address] [place] [address] 12 Lead EKG 11/27/24 1428 MR#: [id number] Acct: [id number] Name: MARKELLMICHAEL APARICIO SANTOS Rep #: [id number] : 1975 49 From: Peña Martinez MD Attending Dr: Status: DEP ER Ordering Dr: Lacho Joy DO Date: 5 Location: ED Sex: M C Admitted: Test Reason : SOB Blood Pressure : */* mmHG Vent. Rate : 70 BPM Atrial Rate : 70 BPM P-R Int : 120 ms QRS Dur : 82 ms QT Int : 384 ms P-R-T Axes : 88 84 74 degrees QTcB Int : 414 ms Normal sinus rhythm WITH PACS Normal ECG Confirmed by Peña Martinez ([id number]), editor continuity and script PEBBLES FELICIANO ([id number]) on 11/28/2024 9:34:41 AM Referred By: Lacho Joy Confirmed By: Peña Martinez 11/28/24 0934 Date Peña Martinez MD CC: Dr. Lacho Joy, ; No Primary Care Physician Signed Normal [facility] Absolute neutrophil countOrd ered By: Lacho Joy on 2024 Neutrophils (Bld) [#/Vol] 7.9 10*3/uL High 2.0-7.7 [facility] BUN/creatinine ratioOrdered By: Lacho Joy on 2024 Urea nitrogen/Creatinine [Mass ratio] 32.6 mg/mg High 10- [facility] Basic Metabolic Profile (BMP )on 2024 Anion gap [Moles/Vol] 10 mmol/L Normal 5-15 [facility] Comment on above: Performed By: #### L 500.2500, L100.0100 #### [facility] [address] [place], [address] BUN/CRE 32.6 RATIO High - [facility] Comment on above: Performed By: #### L 500.2500, L100.0100 #### [facility] [address] [place], [address] Calcium [Mass/Vol] 9.1 mg/dL Normal 7.6-11.[address] [facility] Comment on above: Performed By: #### L 500.2500, L100.0100 #### [facility] [address] [place], [address] Chloride [Moles/Vol] 102 mmol/L Normal 96-108 [facility] Comment on above: Performed By: #### L 500.2500, L100.0100 #### [facility] [address] [place], [address] CO2 [Moles/Vol] 26.2 mmol/L Normal 22.0-29.0 [facility] Comment on above: Performed By: #### L 500.2500, L100.0100 #### [facility] [address] [place], [address] Creatinine [Mass/Vol] 0.6 mg/dL Low 0.8-1.3 [facility] Comment on above: Performed By: #### L 500.2500, L100.0100 #### [facility] [address] [place], [address] ECRCL 119.44 ml/min Normal [facility] Comment on above: Performed By: #### L 500.2500, L100.0100 #### [facility] [address] [place], [address] GFR/1.73 sq M.predicted among non-blacks MDRD (S/P/Bld) [Vol rate/Area] 116 mL/min/{1.73_m2} Normal >60 [facility] Comment on above: Result Comment: mL/m in/1.73m2 CKD-EPI Creatinine Equation (2020) Performed By: #### L 500.2500, L100.0100 #### [facility] [address] [place], [address] Glucose [Mass/Vol] 99 mg/dL Normal 70-[address] [facility] Comment on above: Performed By: #### L 500.2500, L100.0100 #### [facility] [address] [place], [address] Potassium [Moles/Vol] 4.0 mmol/L Normal 3.3-5.1 [facility] Comment on above: Performed By: #### L 500.2500, L100.0100 #### [facility] [address] [place], [address] Sodium [Moles/Vol] 138 mmol/L Normal 133-[address] [facility] Comment on above: Performed By: #### L 500.2500, L100.0100 #### [facility] [address] [place], [address] Urea nitrogen [Mass/Vol] 21 mg/dL High 4-19 [facility] Comment on above: Performed By: #### L 500.2500, L100.0100 #### [facility] [address] [place], [address] Basophil percentageOrdered B y: Lacho Joy on 2024 Basophils/100 WBC (Bld) 0.5 % 0-1 [facility] CBC W/Diff, Automatedon 11-03 Absolute Lymph 1.53 X10 3/uL Normal 0.83-4.51 [facility] Comment on above: Performed By: #### L 9000.0800 #### [facility] [address] [place], [address] Absolute Neut 7.9 X10 3/uL High 2.0-7.7 [facility] Comment on above: Performed By: #### L 9000.0800 #### [facility] [address] [place], [address] Basophils/100 WBC (Bld) 0.5 % Normal 0-1 [facility] Comment on above: Performed By: #### L 9000.0800 #### [facility] [address] [place], [address] Eosinophils/100 WBC (Bld) 3.9 % Normal 0-5 [facility] Comment on above: Performed By: #### L 9000.0800 #### [facility] [address] [place], [address] Erythrocyte distribution width (RBC) [Ratio] 13.0 % Normal 11.6-14.6 [facility] Comment on above: Performed By: #### L 9000.0800 #### [facility] [address] [place], [address] Hematocrit (Bld) [Volume fraction] 43.0 % Normal 40-54 [facility] Comment on above: Performed By: #### L 9000.0800 #### [facility] [address] [place], [address] Hemoglobin (Bld) [Mass/Vol] 14.4 g/dL Normal 13.0-16.5 [facility] Comment on above: Performed By: #### L 9000.0800 #### [facility] [address] [place], [address] IG% 0.500 Normal 0.0-0.9 [facility] Comment on above: Result Comment: IG% - Immature Granulocytes (promyelocytes, myelocytes and metamyelocytes) > 1% indicates that a LEFT SHIFT is Present. Performed By: #### L 9000.0800 #### [facility] [address] [place], [address] Lymphocytes/100 WBC (Bld) 14.5 % Low 19-41 [facility] Comment on above: Performed By: #### L 9000.0800 #### [facility] [address] [place], [address] MCH (RBC) [Entitic mass] 32.1 pg High 27.0-32.0 [facility] Comment on above: Performed By: #### L 9000.0800 #### [facility] [address] [place], [address] MCHC (RBC) [Mass/Vol] 33.5 g/dL Normal 32-36 [facility] Comment on above: Performed By: #### L 9000.0800 #### [facility] [address] [place], [address] MCV (RBC) [Entitic vol] 96.0 fL High 80-94 [facility] Comment on above: Performed By: #### L 9000.0800 #### [facility] [address] [place], [address] Monocytes/100 WBC (Bld) 6.4 % Normal 0-10 [facility] Comment on above: Performed By: #### L 9000.0800 #### [facility] [address] [place], [address] Neutrophils/100 WBC (Bld) 74.2 % High 47-70 [facility] Comment on above: Performed By: #### L 9000.0800 #### [facility] [address] [place], [address] Nucleated RBC (Bld) [#/Vol] 0 10*3/uL Normal 0-5 [facility] Comment on above: Performed By: #### L 9000.0800 #### [facility] [address] [place], [address] Platelet mean volume (Bld) [Entitic vol] 9.3 fL Normal 6.2-12.0 [facility] Comment on above: Performed By: #### L 9000.0800 #### [facility] [address] [place], [address] Platelets (Bld) [#/Vol] 323 10*3/uL Normal 150-450 [facility] Comment on above: Performed By: #### L 9000.0800 #### [facility] [address] [place], [address] RBC (Bld) [#/Vol] 4.48 10*6/uL Low 4.6-6.2 [facility] Comment on above: Performed By: #### L 9000.0800 #### [facility] [address] [place], [address] RDW SD 45.7 fl High 35.1-43.9 [facility] Comment on above: Performed By: #### L 9000.0800 #### [facility] [address] [place], [address] WBC (Bld) [#/Vol] 10.6 10*3/uL Normal 4.4-11.0 [facility] Comment on above: Performed By: #### L 9000.0800 #### [facility] [address] [place], [address] Carbon dioxide measurementOr dered By: Lacho Joy on 2024 CO2 [Moles/Vol] 26.2 mmol/L 22.0-29.0 [facility] Chest PA and Lateralon 11-27 Chest PA and Lateral [facility] Imaging Services [address] [place] [address] Chest PA and Lateral MR#: [id number] Acct: [id number] Name: MICHAEL MCNEILL SANTOS Rep #: [id number] : 1975 M 49 From: Maylin adkins MD PCP: Care Physician,No Primary Status: REG ER Study: Chest PA and Lateral Date of Exam: 11/27/24 Exam# [id number] Ordering Dr: Lacho Joy DO PROCEDURE: CHEST PA AND LATERAL REASON FOR EXAM: Cough. Using inhaler but not helping. TECHNIQUE: Frontal and lateral views of the chest. COMPARISON: CT dated October 21, 2024. FINDINGS: The heart size is normal. The mediastinal contour is unremarkable. Hyperinflation of the lung christopher. Right apical peripheral consolidative process persist. No pleural effusion or pneumothorax noted. The bones are unremarkable. RAD/Chest PA and Lateral IMPRESSION: Hyperinflation of the lung christopher. Right apical peripheral consolidative process persist. Follow-up to resolution to exclude a mass. Reading Location: [id number] CC: Dr. Lacho Joy, DO; No Primary Care Physician Director Of Food And Nutrition Services: Signed Normal [facility] Chloride measurementOrdered By: Lacho Joy on 2024 Chloride [Moles/Vol] 102 mmol/L 96-108 [facility] Creatinine [Moles/Vol]Ordere d By: Lacho Joy on 2024 Creatinine [Mass/Vol] 0.6 mg/dL Low 0.8-1.3 [facility] Emergency Department Summary on 2024 Emergency Department Summary [facility] Medical Records Department [address] [place] [address] Emergency Department Summary 11/27/24 MR#: [id number] Acct: [id number] Name: MICHAEL MCNEILL SANTOS Rep #: [id number] : 1975 49 From: Lacho Joy DO PCP: Care Physician,No Primary Status:DEP ER Location: ED HPI History of Present Illness Chief Complaint: Shortness of Breath Narrative Narrative: Chief complaint and HPI: Cough and flulike symptoms. 49-year-old male with past medical history of asthma presents for evaluation of cough and flulike symptoms. Patient states that he has had a co ugh for the past week with flulike symptoms consisting of fever, cough, congestion, and wheezing. Patient states that he is out of his albuterol inhaler. He does not take a maintenance inhaler. He does not follow with a primary care physician. Patient states that he does not have money to refill his albuterol inhaler. On chart review, patient is seen in our emergency department often. He denies any chest pain, abdominal pain, nausea, vomiting. Denies history of tobacco abuse. Review of systems: See HPI Medications: As listed on the chart Allergies: As listed on the chart PFSH: Per chart Vital signs: As listed on the chart. Reviewed. Physical exam: Gen: A O x3, NAD Head: Normocephalic, atraumatic Eyes: No sclera icterus, conjunctiva clear ENT: Moist mucous membranes Neck: Trachea midline, No JVD CV: RRR, no murmurs, no peripheral edema Resp: Expiratory wheezing diffusely, + cough GI: Abd soft, non-distended, non-tender, no r/r/g Musc: Full ROM, no deformity Skin: Warm, dry Neuro: Alert, oriented, grossly intact, sensation intact Psych: Cooperative, appropriate mood and affect [facility] Medical History ETOH abuse Methamphetamine abuse Asthma Depression Anxiety Methamphetamine abuse Ankle fracture, left Bipolar disorder Depression Anxiety Past history of chewing tobacco use Asthma with COPD Anxiety and depression Inguinal hernia bilateral, non-recurrent Hypertension Stroke/cerebrovascular accident Alcohol abuse Bulla of lung GERD (gastroesophageal reflux disease) Home Medications ???Medication ???Instructions ???Recorded ???Last Taken ???Type albuterol sulfate 90 mcg/actuation 2 inh inhalation Q6H PRN shortne ss 09/07/24 10/21/24 Rx breath activated powder inhaler of breath or wheezing #1 ea amoxicillin 875 mg-potassium 1 tab PO Q12H #10 tabs 10/22/24 Un known Rx clavulanate 125 mg tablet prednisone 20 mg tablet 40 mg (2 x 20 mg) PO DAILY #10 tab s 10/22/24 Unknown Rx guaifenesin 1,200 mg tablet, 1,200 mg PO BID #10 tabs 11/12/24 Unknown Rx extended release 12 hr (Mucus Relief ER) multivitamin 1 tab PO LUNCH #0 tabs 11/12/24 Un known Rx prednisone 20 mg tablet 40 mg (2 x 20 mg) PO DAILY #10 tab s 11/12/24 Unknown Rx albuterol sulfate 90 mcg/actuation 1 puff inhalation Q6H PRN Unknown Rx aerosol inhaler shortness of breath or wheezing #8.5 grams prednisone 20 mg tablet 40 mg (2 x 20 mg) PO DAILY 5 days 11/27/24 Unknown Rx #10 tabs Allergy/AdvReac Type Severity Reaction Status Date / Time No Known Allergies Allergy Verified 11/27/24 12:47 Family History Father Alcoholism CAD (coronary artery disease) Heart disease Hypertension Mother Alcoholism Seizures Surgical History History of ankle surgery Social History housing: homeless Smoking Status: Never smoker Smokeless tobacco user: chewing tobacco how long ago did patient quit smoking: Notes no cig tob use, prior chew only but no current, ongoing cannabis use. alcohol intake: current alcohol intake frequency: a few times a week details: 5-6 beers daily, occasionally whiskey. substance use type: marijuana, amphetamines, opiates and methamphetamine EXAM Physical Exam Const Vital Signs: 11/27/24 12:43 11/27/24 13:51 11/27/24 14:01 Temperature 96 F L 97.6 F L Temperature Source Temporal Oral Pulse Rate 91 91 Respiratory Rate 22 H 22 H Respiratory Effort Short of Breath Respiratory Depth Shallow Respiratory Pattern Tachypnea Blood Pressure 98/75 98/75 Blood Pressure Mean 82 82 Pulse Ox 96 95 Oxygen Delivery Method Room Air Room Air Room Air 11/27/24 14:24 11/27/24 14:24 11/27/24 14:51 Temperature Temperature Source Pulse Rate 80 61 Respiratory Rate 18 14 Respiratory Effort Normal Respiratory Depth Shallow Respiratory Pattern Normal Normal Blood Pressure 117/79 Blood Pressure Mean 91 Pulse Ox 96 99 Oxygen Delivery M (more content not included)... Normal [facility] Eosinophil percentageOrdered By: Lacho Joy on 2024 Eosinophils/100 WBC (Bld) 3.9 % 0-5 [facility] Erythrocyte distribution wid th ratioOrdered By: Lacho Joy on 2024 Erythrocyte distribution width (RBC) [Ratio] 13.0 % 11.6-14.6 [facility] Erythrocyte distribution wid th standard deviationOrdered By: Lacho Henderson on 2024 Erythrocyte distribution width (RBC) [Entitic vol] 45.7 fL High 35.1-43.9 [facility] Estimation of creatinine akbar aranceOrdered By: Lacho Joy on 2024 Estimated Creatinine Clearance Calc 119.44 ml/min [facility] GFR/1.73 sq M.predicted gertrude g non-blacks MDRD (S/P/Bld) [Vol rate/Area]Ordered By: Lacho Joy on 2024 Estimated GFR (MDRD) Non-Af Amer 116 >60 [facility] Comment on above: mL/min/1.73m2 CKD-EP I Creatinine Equation (2020) Hematocrit Auto (Bld) [Volum e fraction]Ordered By: Lacho Joy on 2024 Hematocrit (Bld) [Volume fraction] 43.0 % 40-54 [facility] Hemoglobin measurementOrdere d By: Lacho Joy on 2024 Hemoglobin (Bld) [Mass/Vol] 14.4 g/dL 13.0-16.5 [facility] Immature granulocytes/100 WB C Auto (Bld)Ordered By: Lacho Joy on 2024 Immature granulocytes/100 WBC (Bld) 0.500 % 0.0-0.9 [facility] Comment on above: IG% - Immature Granu locytes (promyelocytes, myelocytes and metamyelocytes) > 1% indicates that a LEFT SHIFT is Present. Influenza virus A and B and SARS-CoV-2 (COVID-19) and Respiratory syncytial virus RNAOrdered By: Lacho Joy on 2024 SARS-CoV-2 (COVID-19) RNA WES+probe Ql (Unsp spec) [facility] Lymphocytes Auto (Unsp spec) [#/Vol]Ordered By: Lacho Joy on 2024 Lymphocytes (Bld) [#/Vol] 1.53 10*3/uL 0.83-4.51 [facility] Lymphocytes/100 WBC Auto (Un sp spec)Ordered By: Lacho Joy on 2024 Lymphocytes/100 WBC (Bld) 14.5 % Low 19-41 [facility] M100.678on 2024 M100.678 SARS-CoV-2 (COVID 19 ) Negative INFLUENZA A Negative INFLUENZA B Negative RSV PCR Negative Normal [facility] Comment on above: Performed By: #### L 9000.0800 #### [facility] [place], [address] MCV (mean corpuscular volume ) determinationOrdered By: Lacho Joy on 2024 MCV (RBC) [Entitic vol] 96.0 fL High 80-94 [facility] Mean corpuscular hemoglobin (MCH) determinationOrdered By: Lacho Joy on 2024 MCH (RBC) [Entitic mass] 32.1 pg High 27.0-32.0 [facility] Mean corpuscular hemoglobin concentration (MCHC) determinationOrdered By: Lacho Joy on 2024 MCHC (RBC) [Mass/Vol] 33.5 g/dL 32-36 [facility] Mean platelet volume determi nationOrdered By: Lacho Joy on 2024 Platelet mean volume (Bld) [Entitic vol] 9.3 fL 6.2-12.0 [facility] Monocyte percentageOrdered B y: Lacho Joy on 2024 Monocytes/100 WBC (Bld) 6.4 % 0-10 [facility] Neutrophil percentageOrdered By: Lacho Joy on 2024 Neutrophils/100 WBC (Bld) 74.2 % High 47-70 [facility] Nucleated red blood cell per centageOrdered By: Lacho Joy on 2024 Nucleated RBC/100 WBC (Bld) [Ratio] 0 % 0-5 [facility] Platelet countOrdered By: Wes Joy on 2024 Platelets (Bld) [#/Vol] 323 10*3/uL 150-450 [facility] RBC Auto (Bld) [#/Vol]Ordere d By: Lacho Joy on 2024 RBC (Bld) [#/Vol] 4.48 10*6/uL Low 4.6-6.2 [facility] Serum glucose measurement (m ass/volume)Ordered By: Lacho Joy on 2024 Glucose [Mass/Vol] 99 mg/dL 70-[address] [facility] Serum or plasma anion gap de termination (moles/volume)Ordered By: Lacho Joy on 2024 Anion gap [Moles/Vol] 10 mmol/L 5-15 [facility] Serum or plasma calcium micah urement (mass/volume)Ordered By: Lacho Henderson on 2024 Calcium [Mass/Vol] 9.1 mg/dL 7.6-11.[address] [facility] Serum or plasma potassium me asurementOrdered By: Lacho Joy on 2024 Potassium [Moles/Vol] 4.0 mmol/L 3.3-5.1 [facility] Serum or plasma sodium measu rement (moles/volume)Ordered By: Lacho Henderson on 2024 Sodium [Moles/Vol] 138 mmol/L 133-[address] [facility] Serum or plasma urea nitroge n measurement (mass/volume)Ordered By: Lacho Joy on 2024 Urea nitrogen [Mass/Vol] 21 mg/dL High 4- [facility] White blood cell (WBC) count Ordered By: Lacho Joy on 2024 WBC (Bld) [#/Vol] 10.6 10*3/uL 4.4-11.0 [facility] Emergency Department Summary on 11-20-[address] [facility] Medical Records Department [address] [place] [address] Emergency Department Summary 11/20/24 MR#: [id number] Acct: [id number] Name: MICHAEL MCNEILL SANTOS Rep #: [id number] : 1975 48 From: Graham Messina DO PCP: Care Physician,No Primary Status:DEP ER Location: ED HPI History of Present Illness Chief Complaint: Meds Only Informant: patient Onset/Context/Timing Onset: Yesterday Context: Gradual Onset Timing: Continuous Quality: Wheezing Location: Chest Worsened by: Nothing Relieved by: Nothing Narrative Narrative: Patient presents requesting refill of her albuterol inhaler. Patient states he does not have a primary care physician to follow-up with. Patient states he ran out of his inhaler last night. Patient states he feels like he is starting to have some wheezing again today. Patient denies any fevers or chills. Patient denies any nausea or vomiting. Patient denies any chest pain. Patient denies any shortness of breath. Patient denies any cough. [facility] Medical History ETOH abuse Methamphetamine abuse Asthma Depression Anxiety Methamphetamine abuse Ankle fracture, left Bipolar disorder Depression Anxiety Past history of chewing tobacco use Asthma with COPD Anxiety and depression Inguinal hernia bilateral, non-recurrent Hypertension Stroke/cerebrovascular accident Alcohol abuse Bulla of lung GERD (gastroesophageal reflux disease) Home Medications ???Medication ???Instructions ???Recorded ???Last Taken ???Type albuterol sulfate 90 mcg/actuation 2 inh inhalation Q6H PRN shortne ss 09/07/24 10/21/24 Rx breath activated powder inhaler of breath or wheezing #1 ea amoxicillin 875 mg-potassium 1 tab PO Q12H #10 tabs 10/22/24 Un known Rx clavulanate 125 mg tablet prednisone 20 mg tablet 40 mg (2 x 20 mg) PO DAILY #10 tab s 10/22/24 Unknown Rx guaifenesin 1,200 mg tablet, 1,200 mg PO BID #10 tabs 11/12/24 Unknown Rx extended release 12 hr (Mucus Relief ER) multivitamin 1 tab PO LUNCH #0 tabs 11/12/24 Un known Rx prednisone 20 mg tablet 40 mg (2 x 20 mg) PO DAILY #10 tab s 11/12/24 Unknown Rx albuterol sulfate 90 mcg/actuation 1 puff inhalation Q6H PRN Unknown Rx aerosol inhaler shortness of breath or wheezing #8.5 grams Allergy/AdvReac Type Severity Reaction Status Date / Time No Known Allergies Allergy Verified 11/20/24 15:34 Family History Father Alcoholism CAD (coronary artery disease) Heart disease Hypertension Mother Alcoholism Seizures Surgical History History of ankle surgery Social History housing: homeless Smoking Status: Never smoker Smokeless tobacco user: chewing tobacco how long ago did patient quit smoking: Notes no cig tob use, prior chew only but no current, ongoing cannabis use. alcohol intake: current alcohol intake frequency: a few times a week details: 5-6 beers daily, occasionally whiskey. substance use type: marijuana, amphetamines, opiates and methamphetamine ROS ROS ED Constitutional Constitutional ED: Reports sweats; Denies chills or fever(s) Eyes Eyes: Denies blurry vision or change in vision ENT ENT ED: Denies rhinorrhea or sore throat Cardiovascular Cardiovascular: Denies chest pain or palpitations Respiratory/Chest Respiratory/Chest: Denies cough or dyspnea Gastrointestinal Gastrointestinal: Denies nausea or vomiting Genitourinary Genitourinary ED: Denies dysuria or hematuria Musculoskeletal Musculoskeletal: Denies back pain or neck pain Integumentary Denies abscess or rash Neurologic Neurologic: Denies headache(s) or weakness Allergic/Immunologic Allergic/Immunologic ED: Denies mouth swelling or urticaria EXAM Physical Exam Const Vital Signs: 11/20/24 15:34 11/20/24 16:46 Temperature 98.2 F Temperature Source Oral Pulse Rate 98 Respiratory Rate 18 Blood Pressure 111/81 H Blood Pressure Mean 91 Pulse Ox 96 Oxygen Delivery Method Room Air Room Air Positive well nourished and well developed General Appearance ED: well developed and NAD HEENT Reports moist mucous membranes Neck supple and no JVD Resp normal respiratory effort Auscultation: wheezes scattered wheezes Cardio regular rate and regular rhythm GI non-tender and non-distended Palpation: soft Neuro oriented x3, CN's II-XII intact bilaterally and no sensory deficits noted Sensorium / Orientation: alert Motor Exam: strength 5/5 throughout Psych mental status grossly normal MDM MDM MDM Narrative Medical decision making narrative: Pat (more content not included)... Normal [facility] Absolute neutrophil countOrd ered By: Trang Valencia on 11-12-2024 Neutrophils (Bld) [#/Vol] 7.1 10*3/uL 2.0-7.7 [facility] Albumin to globulin ratioOrd ered By: Trang Valencia on 11-12-2024 Albumin/Globulin [Mass ratio] 1.0 {ratio} Normal 0.9-2.4 [facility] Comment on above: Performed By: #### L 501.2300, L100.0100, L500.4050, L501.5200 #### [facility] [address] [place], [address] Automated blood erythrocyte countOrdered By: Trang Valencia on 11-12-2024 RBC (Bld) [#/Vol] 3.83 10*6/uL Low 4.6-6.2 [facility] Comment on above: Performed By: #### L 501.2300, L100.0100, L500.4050, L501.5200 ####[facility] [address] [place], [place], [id number] Automated blood hematocrit ( percentage)Ordered By: Trang Valencia on 11-12-2024 Hematocrit (Bld) [Volume fraction] 35.6 % Low 40-54 [facility] Comment on above: Performed By: #### L 501.2300, L100.0100, L500.4050, L501.5200 ####[facility] [address] [place], [address] Automated lymphocyte count a s percentage of total leukocytesOrdered By: Trang Valencia on 11-12-2024 Lymphocytes/100 WBC (Bld) 3.5 % Low 19-41 [facility] Comment on above: Performed By: #### L 501.2300, L100.0100, L500.4050, L501.5200 ####[facility] [address] [place], [address] Basophil percentageOrdered B y: Trang Lee on 11-12-2024 Basophils/100 WBC (Bld) 0.1 % Normal 0-1 [facility] Comment on above: Performed By: #### L 501.2300, L100.0100, L500.4050, L501.5200 ####[facility] [address] [place], [address] Bilirubin, totalOrdered By: Trang Valencia on 11-12-2024 Bilirubin [Mass/Vol] 0.30 mg/dL Normal 0.20-1.00 [facility] Comment on above: For patients on eltr ombopag therapy, use of Dimension [place] TBIL is not recommended. Result Comment: For patients on eltrombopag therapy, use of Dimension [place] TBIL is not recommended. Performed By: #### L 501.2300, L100.0100, L500.4050, L501.5200 #### [facility] [address] [place], [address] Blood urea nitrogen (BUN)/cr eatinine ratioOrdered By: Trang Valencia on 11-12-2024 Urea nitrogen/Creatinine [Mass ratio] 28.2 mg/mg High 10-20 [facility] CBC W/Diff, Automatedon 02 Absolute Lymph 0.26 X10 3/uL Low 0.83-4.51 [facility] Comment on above: Performed By: #### L 501.2300, L100.0100, L500.4050, L501.5200 ####[facility] [address] [place], [address] Absolute Neut 7.1 X10 3/uL Normal 2.0-7.7 [facility] Comment on above: Performed By: #### L 501.2300, L100.0100, L500.4050, L501.5200 ####[facility] [address] [place], [address] IG% 0.400 Normal 0.0-0.9 [facility] Comment on above: Result Comment: IG% - Immature Granulocytes (promyelocytes, myelocytes and metamyelocytes) > 1% indicates that a LEFT SHIFT is Present. Performed By: #### L 501.2300, L100.0100, L500.4050, L501.5200 ####[facility] [address] [place], [address] Nucleated RBC (Bld) [#/Vol] 0 10*3/uL Normal 0-5 [facility] Comment on above: Performed By: #### L 501.2300, L100.0100, L500.4050, L501.5200 ####[facility] [address] [place], [address] RDW SD 45.3 fl High 35.1-43.9 [facility] Comment on above: Performed By: #### L 501.2300, L100.0100, L500.4050, L501.5200 ####[facility] [address] [place], [address] Carbon dioxide measurementOr dered By: Trang Valencia on 11-12-2024 CO2 [Moles/Vol] 25.0 mmol/L Normal 21.0-32.0 [facility] Comment on above: Performed By: #### L 501.2300, L100.0100, L500.4050, L501.5200 #### [facility] [address] [place], [address] Chloride measurementOrdered By: Trang Valencia on 11-12-2024 Chloride [Moles/Vol] 106 mmol/L Normal 98-107 [facility] Comment on above: Performed By: #### L 501.2300, L100.0100, L500.4050, L501.5200 #### [facility] [address] [place], [address] Comprehensive Metabolic Prof carrol 11-12-2024 ALK P 41 U/L Low 45-117 [facility] Comment on above: Performed By: #### L 501.2300, L100.0100, L500.4050, L501.5200 #### [facility] [address] [place], [address] BUN/CRE 28.2 RATIO High 10-20 [facility] Comment on above: Performed By: #### L 501.2300, L100.0100, L500.4050, L501.5200 #### [facility] [address] [place], [address] CA,Total 8.8 mg/dL Normal 8.5-10.1 [facility] Comment on above: Performed By: #### L 501.2300, L100.0100, L500.4050, L501.5200 #### [facility] [address] [place], [address] ECRCL 91.57 ml/min Normal [facility] Comment on above: Performed By: #### L 501.2300, L100.0100, L500.4050, L501.5200 #### [facility] [address] [place], [address] EST GFR - AA 136 mL/min Normal >60 [facility] Comment on above: Result Comment: Afri can Spanish GFR Calc Performed By: #### L 501.2300, L100.0100, L500.4050, L501.5200 #### [facility] [address] [place], [address] GAP 8 Normal 5-15 [facility] Comment on above: Performed By: #### L 501.2300, L100.0100, L500.4050, L501.5200 #### [facility] [address] [place], [address] GFR/1.73 sq M.predicted among non-blacks MDRD (S/P/Bld) [Vol rate/Area] 112 mL/min/{1.73_m2} Normal >60 [facility] Comment on above: Result Comment: Non- GFR Calc Performed By: #### L 501.2300, L100.0100, L500.4050, L501.5200 #### [facility] [address] [place], [address] T PROT 6.4 g/dL Normal 6.4-8.2 [facility] Comment on above: Performed By: #### L 501.2300, L100.0100, L500.4050, L501.5200 #### [facility] [address] [place], [address] Comprehensive Metabolic Prof ilOrdered By: Trang Valencia on 11-12-2024 AST [Catalytic activity/Vol] 18 U/L Normal 15-37 [facility] Comment on above: Performed By: #### L 501.2300, L100.0100, L500.4050, L501.5200 #### [facility] [address] [place], [address] Eosinophil percentageOrdered By: Trang Valencia on 11-12-2024 Eosinophils/100 WBC (Bld) 0.0 % Normal 0-5 [facility] Comment on above: Performed By: #### L 501.2300, L100.0100, L500.4050, L501.5200 ####[facility] [address] [place], [address] Erythrocyte distribution wid th ratioOrdered By: Trang Valencia on 11-12-2024 Erythrocyte distribution width (RBC) [Ratio] 13.3 % Normal 11.6-14.6 [facility] Comment on above: Performed By: #### L 501.2300, L100.0100, L500.4050, L501.5200 ####[facility] [address] [place], [place], [id number] Erythrocyte distribution wid th standard deviationOrdered By: Trang Valencia on 11-12-2024 Erythrocyte distribution width (RBC) [Entitic vol] 45.3 fL High 35.1-43.9 [facility] Estimated glomerular filtrat ion rate (GFR) AmericanOrdered By: Trang Valencia on 11-12-2024 Estimated GFR (MDRD) Amer 136 mL/min >60 [facility] Comment on above: GFR Calc Estimation of creatinine kabar aranceOrdered By: Trang Valencia on 11-12-2024 Estimated Creatinine Clearance Calc 91.57 ml/min [facility] Glomerular filtration rate ( GFR) estimationOrdered By: Trang Valencia on 11-12-2024 Estimated GFR (MDRD) Non-Af Amer 112 mL/min >60 [facility] Comment on above: Non- GFR Calc Glucose measurementOrdered B y: Trang Valencia on 11-12-2024 Glucose [Mass/Vol] 197 mg/dL High 74-[address] [facility] Comment on above: Fasting Glucose resu lt greater than or equal to 126 mg/dL suggests DIABETES MELLITUS per A.D.A. criteria. Result Comment: Fast ing Glucose result greater than or equal to 126 mg/dL suggests DIABETES MELLITUS per A.D.A. criteria. Performed By: #### L 501.2300, L100.0100, L500.4050, L501.5200 #### [facility] [address] [place], [address] Hemoglobin measurementOrdere d By: Trang Valencia on 11-12-2024 Hemoglobin (Bld) [Mass/Vol] 12.2 g/dL Low 13.0-16.5 [facility] Comment on above: Performed By: #### L 501.2300, L100.0100, L500.4050, L501.5200 ####[facility] [address] [place], [address] Immature granulocytes/100 WB C Auto (Bld)Ordered By: Trang Valencia on 11-12-2024 Immature granulocytes/100 WBC (Bld) 0.400 % 0.0-0.9 [facility] Comment on above: IG% - Immature Granu locytes (promyelocytes, myelocytes and metamyelocytes) > 1% indicates that a LEFT SHIFT is Present. Lymphocytes Auto (Unsp spec) [#/Vol]Ordered By: Trang Valencia on 11-12-2024 Lymphocytes (Bld) [#/Vol] 0.26 10*3/uL Low 0.83-4.51 [facility] MCV (mean corpuscular volume ) determinationOrdered By: Trang Valencia on 11-12-2024 MCV (RBC) [Entitic vol] 93.0 fL Normal 80-94 [facility] Comment on above: Performed By: #### L 501.2300, L100.0100, L500.4050, L501.5200 ####[facility] [address] [place], [place], [id number] Magnesium measurementOrdered By: Trang Valencia on 11-12-2024 Magnesium [Mass/Vol] 2.1 mg/dL Normal 1.6-2.6 [facility] Comment on above: Performed By: #### L 501.2300, L100.0100, L500.4050, L501.5200 ####[facility] [address] [place], [address] Mean corpuscular hemoglobin (MCH) determinationOrdered By: Trang Valencia on 11-12-2024 MCH (RBC) [Entitic mass] 31.9 pg Normal 27.0-32.0 [facility] Comment on above: Performed By: #### L 501.2300, L100.0100, L500.4050, L501.5200 ####[facility] [address] [place], [address] Mean corpuscular hemoglobin concentration (MCHC) determinationOrdered By: Trang Valencia on 11-12-2024 MCHC (RBC) [Mass/Vol] 34.3 g/dL Normal 32-36 [facility] Comment on above: Performed By: #### L 501.2300, L100.0100, L500.4050, L501.5200 ####[facility] [address] [place], [address] Mean platelet volume determi nationOrdered By: Trang Valencia on 11-12-2024 Platelet mean volume (Bld) [Entitic vol] 9.3 fL Normal 6.2-12.0 [facility] Comment on above: Performed By: #### L 501.2300, L100.0100, L500.4050, L501.5200 ####[facility] [address] [place], [address] Monocyte percentageOrdered B y: Trang Valencia on 11-12-2024 Monocytes/100 WBC (Bld) 1.5 % Normal 0-10 [facility] Comment on above: Performed By: #### L 501.2300, L100.0100, L500.4050, L501.5200 ####[facility] [address] [place], [address] Neutrophil percentageOrdered By: Trang Valencia on 11-12-2024 Neutrophils/100 WBC (Bld) 94.5 % High 47-70 [facility] Comment on above: Performed By: #### L 501.2300, L100.0100, L500.4050, L501.5200 ####[facility] [address] [place], [address] Nucleated red blood cell per centageOrdered By: Trang Valencia on 11-12-2024 Nucleated RBC/100 WBC (Bld) [Ratio] 0 % 0-5 [facility] Phosphoruson 11-12-2024 Phosphate [Mass/Vol] 2.9 mg/dL Normal 2.5-4.9 [facility] Comment on above: Performed By: #### L 501.2300, L100.0100, L500.4050, L501.5200 ####[facility] [address] [place], [address] Phosphorus measurementOrdere d By: Trang Valencia on 11-12-2024 Phosphorus Level 2.9 mg/dL 2.5-4.9 [facility] Platelet countOrdered By: Denise Valencia on 11-12-2024 Platelets (Bld) [#/Vol] 267 10*3/uL Normal 150-450 [facility] Comment on above: Performed By: #### L 501.2300, L100.0100, L500.4050, L501.5200 ####[facility] [address] [place], [address] Potassium measurementOrdered By: Trang Valencia on 11-12-2024 Potassium [Moles/Vol] 3.9 mmol/L Normal 3.5-5.1 [facility] Comment on above: Performed By: #### L 501.2300, L100.0100, L500.4050, L501.5200 #### [facility] [address] [place], [address] Serum anion gap measurementO rdered By: Trang Valencia on 11-12-2024 Anion gap [Moles/Vol] 8 mmol/L 5-15 [facility] Serum globulin measurementOr dered By: Trang Valencia on 11-12-2024 Globulin (S) [Mass/Vol] 3.2 g/dL Normal 2.2-4.2 [facility] Comment on above: Performed By: #### L 501.2300, L100.0100, L500.4050, L501.5200 #### [facility] [address] [place], [address] Serum or plasma alanine love otransferase (ALT) measurementOrdered By: Trang Valencia on 11-12-2024 ALT [Catalytic activity/Vol] 30 U/L Normal 16-61 [facility] Comment on above: Performed By: #### L 501.2300, L100.0100, L500.4050, L501.5200 #### [facility] [address] [place], [address] Serum or plasma albumin micah urement (mass/volume)Ordered By: Trang Valencia on 11-12-2024 Albumin [Mass/Vol] 3.2 g/dL Normal 3.2-5.[address] [facility] Comment on above: Performed By: #### L 501.2300, L100.0100, L500.4050, L501.5200 #### [facility] [address] [place], [address] Serum or plasma alkaline jd sphatase measurementOrdered By: Trang Valencia on 11-12-2024 ALP [Catalytic activity/Vol] 41 U/L Low 45-117 [facility] Serum or plasma calcium micah urement (mass/volume)Ordered By: Trang Valencia on 11-12-2024 Calcium [Mass/Vol] 8.8 mg/dL 8.5-10.[address] [facility] Serum or plasma creatinine m easurement (mass/volume)Ordered By: Trang Valencia on 11-12-2024 Creatinine [Mass/Vol] 0.78 mg/dL Normal 0.70-1.30 [facility] Comment on above: The validity of the calculated GFR & GFRAA in patients over 70 years has not been determined. Clinical correlation is essential. Result Comment: The validity of the calculated GFR GFRAA in patients over 70 years has not been determined. Clinical correlation is essential. Performed By: #### L 501.2300, L100.0100, L500.4050, L501.5200 #### [facility] [address] [place], [address] Serum or plasma urea nitroge n measurement (mass/volume)Ordered By: Trang Valencia on 11-12-2024 Urea nitrogen [Mass/Vol] 22 mg/dL High 7-18 [facility] Comment on above: Performed By: #### L 501.2300, L100.0100, L500.4050, L501.5200 #### [facility] [address] [place], [address] Sodium levelOrdered By: Ema Valencia on 11-12-2024 Sodium [Moles/Vol] 139 mmol/L Normal 136-[address] [facility] Comment on above: Performed By: #### L 501.2300, L100.0100, L500.4050, L501.5200 #### [facility] [address] [place], [address] Total proteinOrdered By: Dyana Valencia on 11-12-2024 Protein [Mass/Vol] 6.4 g/dL 6.4-8.[address] [facility] White blood cell (WBC) count Ordered By: Trang Valencia on 11-12-2024 WBC (Bld) [#/Vol] 7.5 10*3/uL Normal 4.4-11.[address] [facility] Comment on above: Performed By: #### L 501.2300, L100.0100, L500.4050, L501.5200 ####[facility] [address] [facility] [place], [address] 12 Lead EKGon 11-11-2024 12 Lead EKG [facility] Cardi[facility] Services [address] [place] [address] 12 Lead EKG 11/11/24 1622 MR#: [id number] Acct: [id number] Name: MARKELLMICHAEL APARICIO SANTOS Rep #: [id number] : 1975 48 From: Peña Martinez MD Attending Dr: Dr. Graham Tolbert DO Status: DIS IN Ordering Dr: Remberto Bernal DO Date: 11/11/24 Location: ICU Sex: M C Admitted: 11/11/24 Test Reason : SOB Blood Pressure : */* mmHG Vent. Rate : 105 BPM Atrial Rate : 105 BPM P-R Int : 120 ms QRS Dur : 80 ms QT Int : 354 ms P-R-T Axes : 86 82 89 degrees QTcB Int : 467 ms Sinus tachycardia Right atrial enlargement Borderline ECG Confirmed by Peña Martinez ([id number]), editor continuity and script OMERO ROBLES ([id number]) on 11/12/2024 10:03:13 AM Referred By: Confirmed By: Peña Martinez 11/12/24 1003 Date Peña Martinez MD CC: Dr. Graham Tolbert, DO; Dr. Remberto Bernal, DO; No Primary Care Physician Signed Normal [facility] Arterial patency Wrist arter y --pre arterial punctureOrdered By: Remberto Bernal on 11-11-2024 Connie Test Positive [facility] Base excess Calc (BldV) [Mol es/Vol]Ordered By: Remberto Bernal on 11-11-2024 Blood Gas Base Excess 7 mmol/L High -2-2 [facility] Basic Metabolic Profile (BMP )on 11-11-2024 BUN/CRE 18.1 RATIO Normal 10-20 [facility] Comment on above: Performed By: #### L 500.2500, L100.0100 ####[facility] [address] [place], [address] CA,Total 9.2 mg/dL Normal 8.5-10.1 [facility] Comment on above: Performed By: #### L 500.2500, L100.0100 ####[facility] [address] [place], [address] Chloride [Moles/Vol] 102 mmol/L Normal 98-107 [facility] Comment on above: Performed By: #### L 500.2500, L100.0100 ####[facility] [address] [place], [address] CO2 [Moles/Vol] 32.0 mmol/L Normal 21.0-32.0 [facility] Comment on above: Performed By: #### L 500.2500, L100.0100 ####[facility] [address] [place], [address] Creatinine [Mass/Vol] 1.05 mg/dL Normal 0.70-1.30 [facility] Comment on above: Result Comment: The validity of the calculated GFR GFRAA in patients over 70 years has not been determined. Clinical correlation is essential. Performed By: #### L 500.2500, L100.0100 ####[facility] [address] [place], [address] ECRCL 70.10 ml/min Normal [facility] Comment on above: Performed By: #### L 500.2500, L100.0100 ####[facility] [address] [place], [address] EST GFR TNP Normal >60 [facility] Comment on above: Result Comment: Non- GFR Calc Performed By: #### L 500.2500, L100.0100 ####[facility] [address] [place], [address] EST GFR - AA TNP Normal >60 [facility] Comment on above: Result Comment: Afri can Spanish GFR Calc Performed By: #### L 500.2500, L100.0100 ####[facility] [address] [place], [address] GAP 9 Normal 5-15 [facility] Comment on above: Performed By: #### L 500.2500, L100.0100 ####[facility] [address] [place], [address] Glucose [Mass/Vol] 202 mg/dL High 74-[address] [facility] Comment on above: Result Comment: Gluc ose result greater than or equal to 200 mg/dL suggests DIABETES MELLITUS per A.D.A. criteria. Performed By: #### L 500.2500, L100.0100 ####[facility] [address] [place], [address] Potassium [Moles/Vol] 4.0 mmol/L Normal 3.5-5.1 [facility] Comment on above: Performed By: #### L 500.2500, L100.0100 ####[facility] [address] [place], [address] Sodium [Moles/Vol] 142 mmol/L Normal 136-[address] [facility] Comment on above: Performed By: #### L 500.2500, L100.0100 ####[facility] [address] [place], [address] Urea nitrogen [Mass/Vol] 19 mg/dL High 7-18 [facility] Comment on above: Performed By: #### L 500.2500, L100.0100 ####[facility] [address] [place], [address] Blood Gases by [facility] 025 CONNIE TEST Positive Normal [facility] Comment on above: Performed By: #### L 9000.0800 #### [facility] [address] [place], [address] Base excess Calc (Bld) [Moles/Vol] 7 mmol/L High -2 to +2 [facility] Comment on above: Performed By: #### L 9000.0800 #### [facility] [address] [place], [address] Blood Gas Type ART Normal [facility] Comment on above: Performed By: #### L 9000.0800 #### [facility] [address] [place], [address] CO2 [Moles/Vol] 35 mmol/L Normal [facility] Comment on above: Performed By: #### L 9000.0800 #### [facility] [address] [place], [address] FI02 35.0 Normal [facility] Comment on above: Performed By: #### L 9000.0800 #### [facility] [address] [place], [address] HCO3 (Bld) [Moles/Vol] 32.9 mmol/L High 22-26 [facility] Comment on above: Performed By: #### L 9000.0800 #### [facility] [address] [place], [address] Mode Not entered Normal [facility] Comment on above: Performed By: #### L 9000.0800 #### [facility] [address] [place], [address] O2 Delivery Dev BiPAP Normal [facility] Comment on above: Performed By: #### L 9000.0800 #### [facility] [address] [place], [address] pCO2 65.3 mmHg High 35-45 [facility] Comment on above: Performed By: #### L 9000.0800 #### [facility] [address] [place], [address] PEEP 6 Normal [facility] Comment on above: Performed By: #### L 9000.0800 #### [facility] [address] [place], [address] pH (Bld) 7.31 [pH] Low 7.35-7.45 [facility] Comment on above: Performed By: #### L 9000.0800 #### [facility] [address] [place], [address] PO2 183 mmHG High 75-100 [facility] Comment on above: Performed By: #### L 9000.0800 #### [facility] [address] [place], [address] SITE L Radial Normal [facility] Comment on above: Performed By: #### L 9000.0800 #### [facility] [address] [place], [address] SO2 99 Normal 95-99 [facility] Comment on above: Performed By: #### L 9000.0800 #### [facility] [address] [place], [address] Blood bicarbonate measuremen tOrdered By: Remberto Bernal on 11-11-2024 Blood Gas Bicarbonate Actual 32.9 mmol/L High 22-26 [facility] CBC W/Diff, Automatedon 11-02 Absolute Lymph 2.64 X10 3/uL Normal 0.83-4.51 [facility] Comment on above: Performed By: #### L 500.2500, L100.0100 ####[facility] [address] [place], [address] Absolute Neut 7.7 X10 3/uL Normal 2.0-7.7 [facility] Comment on above: Performed By: #### L 500.2500, L100.0100 ####[facility] [address] [place], [address] Basophils/100 WBC (Bld) 0.8 % Normal 0-1 [facility] Comment on above: Performed By: #### L 500.2500, L100.0100 ####[facility] [address] [place], [address] Eosinophils/100 WBC (Bld) 2.9 % Normal 0-5 [facility] Comment on above: Performed By: #### L 500.2500, L100.0100 ####[facility] [address] [place], [address] Erythrocyte distribution width (RBC) [Ratio] 13.2 % Normal 11.6-14.6 [facility] Comment on above: Performed By: #### L 500.2500, L100.0100 ####[facility] [address] [place], [address] Hematocrit (Bld) [Volume fraction] 44.1 % Normal 40-54 [facility] Comment on above: Performed By: #### L 500.2500, L100.0100 ####[facility] [address] [place], [address] Hemoglobin (Bld) [Mass/Vol] 14.5 g/dL Normal 13.0-16.5 [facility] Comment on above: Performed By: #### L 500.2500, L100.0100 ####[facility] [address] [place], [address] IG% 0.300 Normal 0.0-0.9 [facility] Comment on above: Result Comment: IG% - Immature Granulocytes (promyelocytes, myelocytes and metamyelocytes) > 1% indicates that a LEFT SHIFT is Present. Performed By: #### L 500.2500, L100.0100 ####[facility] [address] [place], [address] Lymphocytes/100 WBC (Bld) 23.1 % Normal 19-41 [facility] Comment on above: Performed By: #### L 500.2500, L100.0100 ####[facility] [address] [place], [address] MCH (RBC) [Entitic mass] 31.5 pg Normal 27.0-32.0 [facility] Comment on above: Performed By: #### L 500.2500, L100.0100 ####[facility] [address] [place], [address] MCHC (RBC) [Mass/Vol] 32.9 g/dL Normal 32-36 [facility] Comment on above: Performed By: #### L 500.2500, L100.0100 ####[facility] [address] [place], [address] MCV (RBC) [Entitic vol] 95.7 fL High 80-94 [facility] Comment on above: Performed By: #### L 500.2500, L100.0100 ####[facility] [address] [place], [address] Monocytes/100 WBC (Bld) 5.6 % Normal 0-10 [facility] Comment on above: Performed By: #### L 500.2500, L100.0100 ####[facility] [address] [place], [address] Neutrophils/100 WBC (Bld) 67.3 % Normal 47-70 [facility] Comment on above: Performed By: #### L 500.2500, L100.0100 ####[facility] [address] [place], [address] Nucleated RBC (Bld) [#/Vol] 0 10*3/uL Normal 0-5 [facility] Comment on above: Performed By: #### L 500.2500, L100.0100 ####[facility] [address] [place], [address] Platelet mean volume (Bld) [Entitic vol] 9.2 fL Normal 6.2-12.0 [facility] Comment on above: Performed By: #### L 500.2500, L100.0100 ####[facility] [address] [place], [address] Platelets (Bld) [#/Vol] 400 10*3/uL Normal 150-450 [facility] Comment on above: Performed By: #### L 500.2500, L100.0100 ####[facility] [address] [place], [address] RBC (Bld) [#/Vol] 4.61 10*6/uL Normal 4.6-6.2 [facility] Comment on above: Performed By: #### L 500.2500, L100.0100 ####[facility] [address] [place], [address] RDW SD 46.2 fl High 35.1-43.9 [facility] Comment on above: Performed By: #### L 500.2500, L100.0100 ####[facility] [address] [place], [address] WBC (Bld) [#/Vol] 11.4 10*3/uL High 4.4-11.0 [facility] Comment on above: Performed By: #### L 500.2500, L100.0100 ####[facility] [address] [place], [address] Chest 1 View (Portable)on Chest 1 View (Portable) [facility] Imaging Services [address] [place] [address] Chest 1 View (Portable) MR#: [id number] Acct: [id number] Name: MICHAEL MCNEILL SANTOS Rep #: [id number] : 1975 M 48 From: Maylin adkins MD PCP: Care Physician,No Primary Status: DIS IN Study: Chest 1 View (Portable) Date of Exam: 11/11/24 Exam# [id number] Ordering Dr: Remberto Bernal DO PROCEDURE: CHEST 1 VIEW (PORTABLE) REASON FOR EXAM: Dyspnea. TECHNIQUE: Frontal view of the chest. COMPARISON: None. FINDINGS: The cardiac and mediastinal contours are normal. Hyperinflation of the lung christopher. Right apical pleural-parenchymal disease. No focal infiltrate, pleural effusion or pneumothorax. The visualized osseous structures demonstrate no acute abnormality. RAD/Chest 1 View (Portable) IMPRESSION: Hyperinflation of the lung christopher. No focal infiltrate. Right apical pleural-parenchymal disease. Reading Location: [id number] CC: Dr. Remberto Bernal DO; No Primary Care Physician Director Of Food And Nutrition Services: Signed Normal [facility] Determination of fraction of inspired oxygenOrdered By: Remberto Bernal on 11-11-2024 Blood Gas Oxygen Percent 35.0 [facility] Emergency Department Summary on 11-11-2024 Emergency Department Summary [facility] Medical Records Department [address] [place] [address] Emergency Department Summary 11/11/24 MR#: [id number] Acct: [id number] Name: MICHAEL MCNEILL SANTOS Rep #: [id number] : 1975 48 From: Remberto Bernal DO PCP: Care Physician,No Primary Status:DIS IN Location: ICU [id number] HPI History of Present Illness Chief Complaint: Shortness of Breath Detail of Chief Complaint: Shortness of breath Informant: patient Narrative Narrative: Patient presents via EMS with concern for shortness of breath. Apparently has a history of asthma. Initially unable to get much history given his respiratory status. Patient was apparently recently in the emergency department for same and admitted and required epinephrine as well as magnesium and was then subsequently discharged to home. PFSH PFSH Allergy/AdvReac Type Severity Reaction Status Date / Time No Known Allergies Allergy Verified 11/11/24 16:09 Social History Smoking Status: Never smoker ROS ROS ED Review of Systems ROS Unobtainable: other Constitutional Constitutional ED: Reports lethargy; Denies chills, fever(s), sweats or weight loss Eyes Eyes: Denies blurry vision, change in vision or diplopia ENT ENT ED: Denies rhinorrhea or sore throat Cardiovascular Cardiovascular: Denies chest pain, orthopnea or racing heartbeat Respiratory/Chest Respiratory/Chest: Reports dyspnea and dyspnea on exertion; Denies orthopnea or sputum Gastrointestinal Gastrointestinal: Denies abdominal pain, diarrhea, nausea or vomiting Genitourinary Genitourinary ED: Denies dysuria, hematuria or urinary frequency Musculoskeletal Musculoskeletal: Denies arthralgias, back pain, myalgias or neck pain Integumentary Denies abscess, Abrasions or rash Neurologic Neurologic: Denies headache(s) or weakness Psychiatric Psychiatric: Denies anxiety, depression or suicidal thoughts Endocrine Endocrinology: Denies polydipsia, polyphagia or polyuria Hematologic/Lymphatic Hematologic/Lymphatic: Denies easy bleeding, easy bruising or lymphadenopathy Allergic/Immunologic Allergic/Immunologic ED: Denies mouth swelling, tongue swelling or urticaria EXAM Physical Exam Const Vital Signs: 11/11/24 15:38 11/11/24 15:43 11/11/24 15:43 Temperature 97.1 F L Temperature Source Temporal Pulse Rate 97 106 H Respiratory Rate 24 L 24 H Respiratory Effort Respiratory Depth Respiratory Pattern Blood Pressure Blood Pressure Mean Pulse Ox 100 Oxygen Delivery Method Bi-pap Bi-pap Fraction of Inspired Oxygen (FIO2) 11/11/24 15:43 11/11/24 15:58 11/11/24 16:00 Temperature Temperature Source Pulse Rate 106 H 109 H 112 H Respiratory Rate 30 H 19 H 20 H Respiratory Effort Respiratory Depth Respiratory Pattern Blood Pressure 134/100 H Blood Pressure Mean 110 Pulse Ox 100 100 100 Oxygen Delivery Method Fraction of Inspired Oxygen (FIO2) 35 11/11/24 16:07 11/11/24 16:15 11/11/24 16:30 Temperature Temperature Source Pulse Rate 105 H Respiratory Rate 19 H Respiratory Effort Short of Breath Labored Accessory Muscle Use Retracting Respiratory Depth Shallow Respiratory Pattern Tachypnea Blood Pressure 148/103 H 137/86 H Blood Pressure Mean 117 102 Pulse Ox 97 Oxygen Delivery Method Bi-pap Fraction of Inspired Oxygen (FIO2) 11/11/24 16:42 11/11/24 16:45 11/11/24 17:00 Temperature Temperature Source Pulse Rate 95 92 Respiratory Rate 16 18 Respiratory Effort Respiratory Depth Respiratory Pattern Blood Pressure 125/87 H 128/84 H Blood Pressure Mean 100 95 Pulse Ox 96 96 Oxygen Delivery Method Fraction of Inspired Oxygen (FIO2) 25 Positive well nourished and well developed General Appearance ED: well developed and NAD HEENT Reports TM's clear and moist mucous membranes normocephalic and atraumatic; Negative for trauma or tenderness Tympanic Membrane ED: Yes TM's clear Eyes PERRL and EOMs intact bilaterally General Eye ED: Negative for pale conjunctiva or scleral icterus Neck no lymphadenopathy, supple and no JVD General: Negative for tenderness Chest Wall inspection of chest normal and palpation of chest normal Chest: Negative for tenderness Resp No normal respiratory effort and No clear to auscultation bilaterally Resp Narrative: Patient with some diminished breath sounds bilaterally and tachypnea. Accessory muscle use noted and retractions. Effort and Inspection: Negative for respiratory distress or pain with movement Auscultation: Negative for rhonchi, wheezes or diminished lung sounds Cardio regular rate, regular rhythm, S1 normal heart sound, S2 normal heart sound and no murmurs Peripheral Pulses: pulses 2+ throughout GI (more content not included)... Normal [facility] H&P Exam - Hospitalist [facility] Medical Records Department [address] [place] [address] H P Exam - Hospitalist 11/11/24 1715 MR#: [id number] Acct: [id number] Name: MICHAEL MCNEILLN Rep #: [id number] : 1975 48 From: Trang Valencia DO PCP: Care Physician,No Primary Status:DIS IN Location: ICU [id number] HPI - General General Date of Admission: 11/11/24 Date of Service: 11/11/24 Chief Complaint: Shortness of breath HPI Narrative Patient has been admitted here under a different medical record number please see for further information MICHAEL MCNEILL, is a 48 M who presented to the emergency department at [facility] on 11/11/2024 with a chief complaint of shortness of breath. Patient was an extremis at the time of arrival and on BiPAP at the time of my evaluation so all my history was obtained from the ED department documentation. Evidently he has a history of asthma and does not smoke tobacco. He did shake his head when I asked him if he smoked marijuana. He evidently also utilizes methamphetamines and alcohol use however he is not drinking on a daily basis and his last drink was over 3 days ago now. He indicated he started having respiratory symptoms yesterday and they severely worsen today. He was placed on BiPAP immediately when he came to the emergency department and clinically seems to be improving. He did have a respiratory acidosis with hypoxic and hypercapnic respiratory failure at the time of arrival. He did report a cough that is dry and not productive. He had a recent hospitalization here in October and turned around quickly at that time. Vital signs on presentation showed a temperature of 97.1, heart rate was 106 212, respiratory rate was 19-30, blood pressure was 134/100 and pulse ox was 100% on BiPAP at 100%. No room air pulse ox was documented. CBC showed a leukocytosis with a white count 11.4 but no left shift. Chemistry panel was overtly unremarkable. Glucose was elevated at 202. He is not a known diabetic. ABG was obtained he has a respiratory acidosis with a pH of 7.31, pCO2 was 65.3, pO2 on BiPAP at 100% was 183. Chest x-ray shows hyperinflation with no focal infiltrate and right apical pleural/parenchymal disease. He did have a CTA back in October when he was admitted that did not show any masses or lesions but is consistent with bronchiectasis. COVID/flu/RSV were negative. Respiratory viral panel is pending. In the emergency department he was treated with aerosols, BiPAP, and steroids. [facility] Medical History ETOH abuse Methamphetamine abuse Asthma Depression Anxiety Allergy/AdvReac Type Severity Reaction Status Date / Time No Known Allergies Allergy Verified 11/11/24 16:09 Family History no significant family his no significant family history Surgical History no surgical history no surgical history Social History (Updated 11/11/24 @ 20:[address] Trang Valencia DO) housing: homeless Smoking Status: Never smoker alcohol intake: current alcohol intake frequency: a few times a week substance use type: marijuana and amphetamines ROS Review of Systems ROS Unobtainable: other Details: Respiratory status is patient was on BiPAP Vital Signs Vital Signs Vital Signs: 11/11/24 15:38 11/11/24 15:43 11/11/24 15:43 Temperature 97.1 F L Temperature Source Temporal Pulse Rate 97 106 H Respiratory Rate 24 L 24 H Respiratory Effort Respiratory Depth Respiratory Pattern Blood Pressure Blood Pressure Mean Pulse Ox 100 Oxygen Delivery Method Bi-pap Bi-pap Fraction of Inspired Oxygen (FIO2) 11/11/24 15:43 11/11/24 15:58 11/11/24 16:00 Temperature Temperature Source Pulse Rate 106 H 109 H 112 H Respiratory Rate 30 H 19 H 20 H Respiratory Effort Respiratory Depth Respiratory Pattern Blood Pressure 134/100 H Blood Pressure Mean 110 Pulse Ox 100 100 100 Oxygen Delivery Method Fraction of Inspired Oxygen (FIO2) 35 11/11/24 16:07 11/11/24 16:15 11/11/24 16:30 Temperature Temperature Source Pulse Rate 105 H Respiratory Rate 19 H Respiratory Effort Short of Breath Labored Accessory Muscle Use Retracting Respiratory Depth Shallow Respiratory Pattern Tachypnea Blood Pressure 148/103 H 137/86 H Blood Pressure Mean 117 102 Pulse Ox 97 Oxygen Delivery Method Bi-pap Fraction of Inspired Oxygen (FIO2) 11/11/24 16:42 11/11/24 16:45 11/11/24 17:00 Temperature Temperature Source Pulse Rate 95 92 Respiratory Rate 16 18 Respiratory Effort Respiratory Depth Respiratory Pattern Blood Pressure 125/87 H 128/84 H Blood Pressure Mean 100 95 Pulse Ox 96 96 Oxygen Delivery Method Fraction of Inspired Oxygen (more content not included)... Normal [facility] Hemoglobin A1con 11-11-2024 HbA1c (Bld) [Mass fraction] 6.0 % High 3.8-5.6 [facility] Comment on above: Result Comment: Norm al < 5.7 % Prediabetic 5.7 - 6.4 % Diabetic >or= 6.5 % Please note range changes. Performed By: #### L 501.9985 #### [facility] [address] [place], [place], [id number] Hemoglobin A1c percentageOrd ered By: Trang Valencia on 11-11-2024 HbA1c (Bld) [Mass fraction] 6.0 % High 3.8-5.6 [facility] Comment on above: Normal < 5.7 % Predi abetic 5.7 - 6.4 % Diabetic >or= 6.5 % Please note range changes. Influenza virus A and B and SARS-CoV-2 (COVID-19) and Respiratory syncytial virus RNAOrdered By: Remberto Bernal on 11-11-2024 SARS-CoV-2 (COVID-19) RNA WES+probe Ql (Unsp spec) [facility] M100.678on 11-11-2024 M100.678 Pending SARS-CoV-2 (COVID 19) Negative INFLUENZA A Negative INFLUENZA B Negative RSV PCR Negative Normal [facility] Comment on above: Performed By: #### L 9000.0800 #### [facility] [address] [place], [place], [id number] No Panel InformationOrdered By: Remberto Bernal on 11-11-2024 Bedside Blood Gas PEEP 6 [facility] Blood Gas Sample Site L Radial [facility] Blood Gas Specimen Type ART [facility] Blood Gas Vent Mode Not entered [facility] Oxygen Delivery Device BiPAP [facility] Oxygen saturation measuremen tOrdered By: Remberto Bernal on 11-11-2024 Blood Gas Oxygen Saturation 99 % 95-99 [facility] Partial pressure of carbon d ioxide measurementOrdered By: Remberto Bernal on 11-11-2024 Arterial Blood Partial Pressure CO2 65.3 mmHg High 35-45 [facility] Partial pressure of oxygen m easurementOrdered By: Remberto Bernal on 11-11-2024 Arterial Blood Partial Pressure O2 183 mmHG High 75-100 [facility] RESPIRATORY PANEL MOLECULARo n 11-11-2024 RP PANEL ADENOVIRUS Not Detected INFLUENZA A Not Detected INFLUENZA A (SUBTYPE H1) Not Detected INFLUENZA A (SUBTYPE H3) Not Detected INFLUENZA B Not Detected HUMAN METAPHNEUMO Not Detected PARAINFLUENZA 1 Not Detected PARAINFLUENZA 2 Not Detected PARAINFLUENZA 3 Not Detected PARAINFLUENZA 4 Not Detected RHINOVIRUS Not Detected RSV A Not Detected RSV B Not Detected Normal [facility] Comment on above: Performed By: #### L 9000.0800 #### [facility] [address] [place], [address] Respiratory pathogens DNA an d RNA panel WES+probe (Resp)Ordered By: Trang Valencia on 11-11-2024 Respiratory Panel (PCR) [facility] Total carbon dioxide measure mentOrdered By: Remberto Bernal on 11-11-2024 Blood Gas Total CO2 35 mmol/L [facility] pH (Unsp spec)Ordered By: Holli Bernal on 11-11-2024 Blood Gas pH 7.31 Low 7.35-7.45 [facility] Respiratory Cultureon 2024 RESPC Mixed normal respiratory [place]. No Streptococcus pneumoniae, beta-hemolytic Streptococcus or Staphylococcus aureus isolated. Normal [facility] Comment on above: Performed By: #### M 300.4600, M100.2000, M300.4500, M100.2400 ####[facility] [address] [place], [address] Absolute neutrophil countOrd ered By: Graham Tolbert on 10-23-2024 Neutrophils (Bld) [#/Vol] 11.4 10*3/uL High 2.0-7.7 [facility] Basic Metabolic Profile (BMP )on 10-23-2024 BUN/CRE 29.6 RATIO High 10-20 [facility] Comment on above: Performed By: #### L 100.0100, L500.2500 ####[facility] [address] [place], [address] CA,Total 9.3 mg/dL Normal 8.5-10.1 [facility] Comment on above: Performed By: #### L 100.0100, L500.2500 ####[facility] [address] [place], [address] Chloride [Moles/Vol] 105 mmol/L Normal 98-107 [facility] Comment on above: Performed By: #### L 100.0100, L500.2500 ####[facility] [address] [place], [address] CO2 [Moles/Vol] 28.0 mmol/L Normal 21.0-32.0 [facility] Comment on above: Performed By: #### L 100.0100, L500.2500 ####[facility] [address] [place], [address] Creatinine [Mass/Vol] 0.78 mg/dL Normal 0.70-1.30 [facility] Comment on above: Result Comment: The validity of the calculated GFR GFRAA in patients over 70 years has not been determined. Clinical correlation is essential. Performed By: #### L 100.0100, L500.2500 ####[facility] [address] [place], [address] ECRCL 90.10 ml/min Normal [facility] Comment on above: Performed By: #### L 100.0100, L500.2500 ####[facility] [address] [place], [address] EST GFR - AA 137 mL/min Normal >60 [facility] Comment on above: Result Comment: Afri can Spanish GFR Calc Performed By: #### L 100.0100, L500.2500 ####[facility] [address] [place], [address] GAP 5 Normal 5-15 [facility] Comment on above: Performed By: #### L 100.0100, L500.2500 ####[facility] [address] [place], [address] GFR/1.73 sq M.predicted among non-blacks MDRD (S/P/Bld) [Vol rate/Area] 113 mL/min/{1.73_m2} Normal >60 [facility] Comment on above: Result Comment: Non- GFR Calc Performed By: #### L 100.0100, L500.2500 ####[facility] [address] [place], [address] Glucose [Mass/Vol] 143 mg/dL High 74-[address] [facility] Comment on above: Result Comment: Fast ing Glucose result greater than or equal to 126 mg/dL suggests DIABETES MELLITUS per A.D.A. criteria. Performed By: #### L 100.0100, L500.2500 ####[facility] [address] [place], [address] Potassium [Moles/Vol] 4.4 mmol/L Normal 3.5-5.1 [facility] Comment on above: Performed By: #### L 100.0100, L500.2500 ####[facility] [address] [place], [address] Sodium [Moles/Vol] 138 mmol/L Normal 136-[address] [facility] Comment on above: Performed By: #### L 100.0100, L500.2500 ####[facility] [address] [place], [address] Urea nitrogen [Mass/Vol] 23 mg/dL High 7-18 [facility] Comment on above: Performed By: #### L 100.0100, L500.2500 ####[facility] [address] [place], [address] Basophil percentageOrdered B y: Graham Tolbert on 10-23-2024 Basophils/100 WBC (Bld) 0.1 % 0-1 [facility] Blood urea nitrogen (BUN)/cr eatinine ratioOrdered By: Graham Tolbert on 10-23-2024 Urea nitrogen/Creatinine [Mass ratio] 29.6 mg/mg High 10-20 [facility] CBC W/Diff, Automatedon 10-03 Absolute Lymph 0.73 X10 3/uL Low 0.83-4.51 [facility] Comment on above: Performed By: #### L 100.0100, L500.2500 ####[facility] [address] [place], [address] Absolute Neut 11.4 X10 3/uL High 2.0-7.7 [facility] Comment on above: Performed By: #### L 100.0100, L500.2500 ####[facility] [address] [place], [address] Basophils/100 WBC (Bld) 0.1 % Normal 0-1 [facility] Comment on above: Performed By: #### L 100.0100, L500.2500 ####[facility] [address] [place], [address] Eosinophils/100 WBC (Bld) 0.0 % Normal 0-5 [facility] Comment on above: Performed By: #### L 100.0100, L500.2500 ####[facility] [address] [place], [address] Erythrocyte distribution width (RBC) [Ratio] 13.1 % Normal 11.6-14.6 [facility] Comment on above: Performed By: #### L 100.0100, L500.2500 ####[facility] [address] [place], [address] Hematocrit (Bld) [Volume fraction] 36.9 % Low 40-54 [facility] Comment on above: Performed By: #### L 100.0100, L500.2500 ####[facility] [address] [place], [address] Hemoglobin (Bld) [Mass/Vol] 12.1 g/dL Low 13.0-16.5 [facility] Comment on above: Performed By: #### L 100.0100, L500.2500 ####[facility] [address] [place], [address] IG% 0.500 Normal 0.0-0.9 [facility] Comment on above: Result Comment: IG% - Immature Granulocytes (promyelocytes, myelocytes and metamyelocytes) > 1% indicates that a LEFT SHIFT is Present. Performed By: #### L 100.0100, L500.2500 ####[facility] [address] [place], [address] Lymphocytes/100 WBC (Bld) 5.7 % Low 19-41 [facility] Comment on above: Performed By: #### L 100.0100, L500.2500 ####[facility] [address] [place], [address] MCH (RBC) [Entitic mass] 31.2 pg Normal 27.0-32.0 [facility] Comment on above: Performed By: #### L 100.0100, L500.2500 ####[facility] [address] [place], [address] MCHC (RBC) [Mass/Vol] 32.8 g/dL Normal 32-36 [facility] Comment on above: Performed By: #### L 100.0100, L500.2500 ####[facility] [address] [place], [address] MCV (RBC) [Entitic vol] 95.1 fL High 80-94 [facility] Comment on above: Performed By: #### L 100.0100, L500.2500 ####[facility] [address] [place], [address] Monocytes/100 WBC (Bld) 4.2 % Normal 0-10 [facility] Comment on above: Performed By: #### L 100.0100, L500.2500 ####[facility] [address] [place], [address] Neutrophils/100 WBC (Bld) 89.5 % High 47-70 [facility] Comment on above: Performed By: #### L 100.0100, L500.2500 ####[facility] [address] [place], [address] Nucleated RBC (Bld) [#/Vol] 0 10*3/uL Normal 0-5 [facility] Comment on above: Performed By: #### L 100.0100, L500.2500 ####[facility] [address] [place], [address] Platelet mean volume (Bld) [Entitic vol] 9.6 fL Normal 6.2-12.0 [facility] Comment on above: Performed By: #### L 100.0100, L500.2500 ####[facility] [address] [place], [address] Platelets (Bld) [#/Vol] 287 10*3/uL Normal 150-450 [facility] Comment on above: Performed By: #### L 100.0100, L500.2500 ####[facility] [address] [place], [address] RBC (Bld) [#/Vol] 3.88 10*6/uL Low 4.6-6.2 [facility] Comment on above: Performed By: #### L 100.0100, L500.2500 ####[facility] [address] [place], [address] RDW SD 45.7 fl High 35.1-43.9 [facility] Comment on above: Performed By: #### L 100.0100, L500.2500 ####[facility] [address] [place], [address] WBC (Bld) [#/Vol] 12.8 10*3/uL High 4.4-11.0 [facility] Comment on above: Performed By: #### L 100.0100, L500.2500 ####[facility] [address] [place], [address] Carbon dioxide measurementOr dered By: Graham Tolbert on 10-23-2024 CO2 [Moles/Vol] 28.0 mmol/L 21.0-32.0 [facility] Chloride measurementOrdered By: Graham Tolbert on 10-23-2024 Chloride [Moles/Vol] 105 mmol/L 98-107 [facility] Eosinophil percentageOrdered By: Graham Tolbert on 10-23-2024 Eosinophils/100 WBC (Bld) 0.0 % 0-5 [facility] Erythrocyte distribution wid th ratioOrdered By: Graham Tolbert on 10-23-2024 Erythrocyte distribution width (RBC) [Ratio] 13.1 % 11.6-14.6 [facility] Erythrocyte distribution wid th standard deviationOrdered By: Graham Tolbert on 10-23-2024 Erythrocyte distribution width (RBC) [Entitic vol] 45.7 fL High 35.1-43.9 [facility] Estimated glomerular filtrat ion rate (GFR) AmericanOrdered By: Graham Tolbert on 10-23-2024 Estimated GFR (MDRD) Amer 137 mL/min >60 [facility] Comment on above: GFR Calc Estimation of creatinine akbar aranceOrdered By: Graham Tolbert on 10-23-2024 Estimated Creatinine Clearance Calc 90.10 ml/min [facility] Glomerular filtration rate ( GFR) estimationOrdered By: Graham Tolbert on 10-23-2024 Estimated GFR (MDRD) Non-Af Amer 113 mL/min >60 [facility] Comment on above: Non- GFR Calc Glucose measurementOrdered B y: Graham Tolbert on 10-23-2024 Glucose [Mass/Vol] 143 mg/dL High 74-[address] [facility] Comment on above: Fasting Glucose resu lt greater than or equal to 126 mg/dL suggests DIABETES MELLITUS per A.D.A. criteria. Gram Stainon 10-23-2024 GS Acceptable Specimen? Yes (<25 Epithelial cells per/lpf) Gram Stain No cells seen Very Rare Gram positive cocci Normal [facility] Comment on above: Performed By: #### M 300.4600, M100.2000, M300.4500, M100.2400 ####[facility] [address] [place], [address] Hematocrit Auto (Bld) [Volum e fraction]Ordered By: Graham Tolbert on 10-23-2024 Hematocrit (Bld) [Volume fraction] 36.9 % Low 40-54 [facility] Hemoglobin measurementOrdere d By: Graham Tolbert on 10-23-2024 Hemoglobin (Bld) [Mass/Vol] 12.1 g/dL Low 13.0-16.5 [facility] Immature granulocytes/100 WB C Auto (Bld)Ordered By: Graham Tolbert on 10-23-2024 Immature granulocytes/100 WBC (Bld) 0.500 % 0.0-0.9 [facility] Comment on above: IG% - Immature Granu locytes (promyelocytes, myelocytes and metamyelocytes) > 1% indicates that a LEFT SHIFT is Present. Lymphocytes Auto (Unsp spec) [#/Vol]Ordered By: Graham Tolbert on 10-23-2024 Lymphocytes (Bld) [#/Vol] 0.73 10*3/uL Low 0.83-4.51 [facility] Lymphocytes/100 WBC Auto (Un sp spec)Ordered By: Graham Tolbert on 10-23-2024 Lymphocytes/100 WBC (Bld) 5.7 % Low 19-41 [facility] MCV (mean corpuscular volume ) determinationOrdered By: Graham Tolbert on 10-23-2024 MCV (RBC) [Entitic vol] 95.1 fL High 80-94 [facility] Mean corpuscular hemoglobin (MCH) determinationOrdered By: Graham Tolbert on 10-23-2024 MCH (RBC) [Entitic mass] 31.2 pg 27.0-32.0 [facility] Mean corpuscular hemoglobin concentration (MCHC) determinationOrdered By: Graham Tolbert on 10-23-2024 MCHC (RBC) [Mass/Vol] 32.8 g/dL 32-36 [facility] Mean platelet volume determi nationOrdered By: Graham Tolbert on 10-23-2024 Platelet mean volume (Bld) [Entitic vol] 9.6 fL 6.2-12.0 [facility] Monocyte percentageOrdered B y: Graham Tolbert on 10-23-2024 Monocytes/100 WBC (Bld) 4.2 % 0-10 [facility] Neutrophil percentageOrdered By: Graham Tolbert on 10-23-2024 Neutrophils/100 WBC (Bld) 89.5 % High 47-70 [facility] Nucleated red blood cell per centageOrdered By: Graham Tolbert on 10-23-2024 Nucleated RBC/100 WBC (Bld) [Ratio] 0 % 0-5 [facility] Platelet countOrdered By: Edouard Tolbert on 10-23-2024 Platelets (Bld) [#/Vol] 287 10*3/uL 150-450 [facility] Potassium measurementOrdered By: Graham Tolbert on 10-23-2024 Potassium [Moles/Vol] 4.4 mmol/L 3.5-5.1 [facility] RBC Auto (Bld) [#/Vol]Ordere d By: Graham Tolbert on 10-23-2024 RBC (Bld) [#/Vol] 3.88 10*6/uL Low 4.6-6.2 [facility] Serum anion gap measurementO rdered By: Graham Tolbert on 10-23-2024 Anion gap [Moles/Vol] 5 mmol/L 5-15 [facility] Serum or plasma calcium micah urement (mass/volume)Ordered By: Graham Tolbert on 10-23-2024 Calcium [Mass/Vol] 9.3 mg/dL 8.5-10.[address] [facility] Serum or plasma creatinine m easurement (mass/volume)Ordered By: Graham Tolbert on 10-23-2024 Creatinine [Mass/Vol] 0.78 mg/dL 0.70-1.30 [facility] Comment on above: The validity of the calculated GFR & GFRAA in patients over 70 years has not been determined. Clinical correlation is essential. Serum or plasma urea nitroge n measurement (mass/volume)Ordered By: Graham Tolbert on 10-23-2024 Urea nitrogen [Mass/Vol] 23 mg/dL High 7-18 [facility] Sodium levelOrdered By: Graham Tolbert on 10-23-2024 Sodium [Moles/Vol] 138 mmol/L 136-[address] [facility] White blood cell (WBC) count Ordered By: Graham Tolbert on 10-23-2024 WBC (Bld) [#/Vol] 12.8 10*3/uL High 4.4-11.0 [facility] Basic Metabolic Profile (BMP )on 10-22-2024 BUN/CRE 34.7 RATIO High 10-20 [facility] Comment on above: Performed By: #### L 500.2500, L100.0100 #### [facility] [address] [place], [address] CA,Total 8.8 mg/dL Normal 8.5-10.1 [facility] Comment on above: Performed By: #### L 500.2500, L100.0100 #### [facility] [address] [place], [address] Chloride [Moles/Vol] 110 mmol/L High 98-107 [facility] Comment on above: Performed By: #### L 500.2500, L100.0100 #### [facility] [address] [place], [address] CO2 [Moles/Vol] 25.0 mmol/L Normal 21.0-32.0 [facility] Comment on above: Performed By: #### L 500.2500, L100.0100 #### [facility] [address] [place], [address] Creatinine [Mass/Vol] 0.63 mg/dL Low 0.70-1.30 [facility] Comment on above: Result Comment: The validity of the calculated GFR GFRAA in patients over 70 years has not been determined. Clinical correlation is essential. Performed By: #### L 500.2500, L100.0100 #### [facility] [address] [place], [address] ECRCL 111.55 ml/min Normal [facility] Comment on above: Performed By: #### L 500.2500, L100.0100 #### [facility] [address] [place], [address] EST GFR - AA 173 mL/min Normal >60 [facility] Comment on above: Result Comment: Afri can Spanish GFR Calc Performed By: #### L 500.2500, L100.0100 #### [facility] [address] [place], [address] GAP 4 Low 5-15 [facility] Comment on above: Performed By: #### L 500.2500, L100.0100 #### [facility] [address] [place], [address] GFR/1.73 sq M.predicted among non-blacks MDRD (S/P/Bld) [Vol rate/Area] 143 mL/min/{1.73_m2} Normal >60 [facility] Comment on above: Result Comment: Non- GFR Calc Performed By: #### L 500.2500, L100.0100 #### [facility] [address] [place], [address] Glucose [Mass/Vol] 179 mg/dL High 74-[address] [facility] Comment on above: Result Comment: Fast ing Glucose result greater than or equal to 126 mg/dL suggests DIABETES MELLITUS per A.D.A. criteria. Performed By: #### L 500.2500, L100.0100 #### [facility] [address] [place], [address] Potassium [Moles/Vol] 4.2 mmol/L Normal 3.5-5.1 [facility] Comment on above: Performed By: #### L 500.2500, L100.0100 #### [facility] [address] [place], [address] Sodium [Moles/Vol] 138 mmol/L Normal 136-[address] [facility] Comment on above: Performed By: #### L 500.2500, L100.0100 #### [facility] [address] [place], [address] Urea nitrogen [Mass/Vol] 22 mg/dL High 7-18 [facility] Comment on above: Performed By: #### L 500.2500, L100.0100 #### [facility] [address] [place], [address] CBC W/Diff, Automatedon 10-03-2024 Absolute Lymph 0.32 X10 3/uL Low 0.83-4.51 [facility] Comment on above: Performed By: #### L 500.2500, L100.0100 #### [facility] [address] [place], [address] Absolute Neut 4.9 X10 3/uL Normal 2.0-7.7 [facility] Comment on above: Performed By: #### L 500.2500, L100.0100 #### [facility] [address] [place], [address] Basophils/100 WBC (Bld) 0.2 % Normal 0-1 [facility] Comment on above: Performed By: #### L 500.2500, L100.0100 #### [facility] [address] [place], [address] Eosinophils/100 WBC (Bld) 0.0 % Normal 0-5 [facility] Comment on above: Performed By: #### L 500.2500, L100.0100 #### [facility] [address] [place], [address] Erythrocyte distribution width (RBC) [Ratio] 12.9 % Normal 11.6-14.6 [facility] Comment on above: Performed By: #### L 500.2500, L100.0100 #### [facility] [address] [place], [address] Hematocrit (Bld) [Volume fraction] 35.4 % Low 40-54 [facility] Comment on above: Performed By: #### L 500.2500, L100.0100 #### [facility] [address] [place], [address] Hemoglobin (Bld) [Mass/Vol] 11.9 g/dL Low 13.0-16.5 [facility] Comment on above: Performed By: #### L 500.2500, L100.0100 #### [facility] [address] [place], [address] IG% 0.400 Normal 0.0-0.9 [facility] Comment on above: Result Comment: IG% - Immature Granulocytes (promyelocytes, myelocytes and metamyelocytes) > 1% indicates that a LEFT SHIFT is Present. Performed By: #### L 500.2500, L100.0100 #### [facility] [address] [place], [address] Lymphocytes/100 WBC (Bld) 6.1 % Low 19-41 [facility] Comment on above: Performed By: #### L 500.2500, L100.0100 #### [facility] [address] [place], [address] MCH (RBC) [Entitic mass] 32.1 pg High 27.0-32.0 [facility] Comment on above: Performed By: #### L 500.2500, L100.0100 #### [facility] [address] [place], [address] MCHC (RBC) [Mass/Vol] 33.6 g/dL Normal 32-36 [facility] Comment on above: Performed By: #### L 500.2500, L100.0100 #### [facility] [address] [place], [address] MCV (RBC) [Entitic vol] 95.4 fL High 80-94 [facility] Comment on above: Performed By: #### L 500.2500, L100.0100 #### [facility] [address] [place], [address] Monocytes/100 WBC (Bld) 1.0 % Normal 0-10 [facility] Comment on above: Performed By: #### L 500.2500, L100.0100 #### [facility] [address] [place], [address] Neutrophils/100 WBC (Bld) 92.3 % High 47-70 [facility] Comment on above: Performed By: #### L 500.2500, L100.0100 #### [facility] [address] [place], [address] Nucleated RBC (Bld) [#/Vol] 0 10*3/uL Normal 0-5 [facility] Comment on above: Performed By: #### L 500.2500, L100.0100 #### [facility] [address] [place], [address] Platelet mean volume (Bld) [Entitic vol] 9.5 fL Normal 6.2-12.0 [facility] Comment on above: Performed By: #### L 500.2500, L100.0100 #### [facility] [address] [place], [address] Platelets (Bld) [#/Vol] 264 10*3/uL Normal 150-450 [facility] Comment on above: Performed By: #### L 500.2500, L100.0100 #### [facility] [address] [place], [address] RBC (Bld) [#/Vol] 3.71 10*6/uL Low 4.6-6.2 [facility] Comment on above: Performed By: #### L 500.2500, L100.0100 #### [facility] [address] [place], [address] RDW SD 44.8 fl High 35.1-43.9 [facility] Comment on above: Performed By: #### L 500.2500, L100.0100 #### [facility] [address] [place], [address] WBC (Bld) [#/Vol] 5.3 10*3/uL Normal 4.4-11.[address] [facility] Comment on above: Performed By: #### L 500.2500, L100.0100 #### [facility] [address] [place], [address] Gram stainOrdered By: Graham mar on 10-22-2024 Microscopic observation Gram stain Nom (Unsp spec) [facility] L. pneumophila Ag Ql (U)Orde red By: Graham Tolbert on 10-22-2024 Legionella Antigen [facility] Legionella Antigen Urineon 0 10-22-2024 LEGU URINE, CLEAN CATCH Legionella Antigen result interpretation: L pneumo Ag Ur Ql Negative Presumptive negative for Legionella pneumophila serogroup 1 antigen in urine, suggesting no recent or current infection. Legionella Ag, Urine Negative (See interpretation below) Normal [facility] Comment on above: Performed By: #### M 300.4600, M100.2000, M300.4500, M100.2400 ####[facility] [address] [place], [address] Microorganism identified Cx Nom (Unsp spec)Ordered By: Graham Tolbert on 10-22-2024 Respiratory Culture or Staphylococcus aureus isolated. [facility] RESPIRATORY PANEL MOLECULARo n 10-22-2024 RP PANEL Normal Reference Ran ge = Not Detected Resp path DNA+RNA Pnl Resp WES+probe Nucleic acid amplification test method ADENOVIRUS Not Detected INFLUENZA A Not Detected INFLUENZA A (SUBTYPE H1) Not Detected INFLUENZA A (SUBTYPE H3) Not Detected INFLUENZA B Not Detected HUMAN METAPHNEUMO Not Detected PARAINFLUENZA 1 Not Detected PARAINFLUENZA 2 Not Detected PARAINFLUENZA 3 Not Detected PARAINFLUENZA 4 Not Detected RHINOVIRUS Not Detected RSV A Not Detected RSV B Not Detected Normal [facility] Comment on above: Performed By: #### L 9000.0800 #### [facility] [address] [place], [place], [address] Respiratory pathogens DNA an d RNA panel WES+probe (Resp)Ordered By: Troy Monroy on 10-22-2024 Respiratory Panel (PCR) [facility] Strep pneumoniae Antig(UR,CS F)on 10-22-2024 STPAG URINE, CLEAN CATCH URINE INTERPRETATION Strep pneumoniae Antig(UR,CSF) Negative Urine Presumptive negative for pneumococcal pneumonia, suggesting no current or recent pneumococcal infection. Infection due to S pneumoniae cannot be ruled out since the antigen present in the sample may be below the detection limit of the test. Strep pneumo Test Negative URINE (See interpretation below) Normal [facility] Comment on above: Performed By: #### M 300.4600, M100.2000, M300.4500, M100.2400 ####[facility] [id number] [facility] [place], [address] Streptococcus pneumoniae ant igen assayOrdered By: Graham Tolbert on 10-22-2024 Streptococcus pneumoniae Antigen (M [facility] 12 Lead EKGon 10-21-2024 12 Lead EKG [facility] [address] [place] [address] 12 Lead EKG 10/21/24 1612 MR#: [id number] Acct: [id number] Name: MICHAEL MCNEILL SANTOS Rep #: [id number] : 1975 48 From: Iris Edmondson MD Attending Dr: Dr. Graham Tolbert DO Status: DIS IN Ordering Dr: Julius Matthews DO Date: 10/21/24 Location: [facility] Sex: M C Admitted: 10/21/24 Test Reason : SOB Blood Pressure : */* mmHG Vent. Rate : 107 BPM Atrial Rate : 107 BPM P-R Int : 120 ms QRS Dur : 90 ms QT Int : 362 ms P-R-T Axes : 86 84 73 degrees QTcB Int : 483 ms Sinus tachycardia Biatrial enlargement Abnormal ECG Confirmed by AJAY WEI, PHILIP ([id number]), editor continuity and script OMERO ROBLES ([id number]) on 10/29/2024 6:01:06 AM Referred By: Troy Monroy Confirmed By: PHILIP EDMONDSON MD 10/29/24 0601 Date Iris Edmondson MD CC: Dr. Graham Tolbert DO; Dr. Troy Monroy MD; Dr. Julius Matthews DO; No Primary Care Physician Signed Normal [facility] Arterial patency Wrist arter y --pre arterial punctureOrdered By: Julius Matthews on 10-21-2024 Connie Test Positive [facility] BNP (brain natriuretic pepti de measurement)Ordered By: Julius Matthews on 10-21-2024 Natriuretic peptide B (Bld) [Mass/Vol] 31.1 pg/mL 0-100 [facility] BNP,B-Type NATRIURETIC PEPTI Shashi 10-21-2024 Natriuretic peptide B (Bld) [Mass/Vol] 31.1 pg/mL Normal 0-100 [facility] Comment on above: Performed By: #### L 500.2500, L100.0100 #### [facility] [address] [place] [address]. [place], [address] Base excess Calc (BldV) [Mol es/Vol]Ordered By: Julius Matthews on 10-21-2024 Blood Gas Base Excess 10 mmol/L High -2-2 [facility] Basic Metabolic Profile (BMP )on 10-21-2024 BUN/CRE 34.1 RATIO High 10-20 [facility] Comment on above: Order Comment: 'TROP ' Serial specimen #1, #2 or #3: 1 Performed By: #### L 500.2500, L100.0100 #### [facility] [address] [place], [address] CA,Total 9.3 mg/dL Normal 8.5-10.1 [facility] Comment on above: Order Comment: 'TROP ' Serial specimen #1, #2 or #3: 1 Performed By: #### L 500.2500, L100.0100 #### [facility] [address] [place], [address] Chloride [Moles/Vol] 101 mmol/L Normal 98-107 [facility] Comment on above: Order Comment: 'TROP ' Serial specimen #1, #2 or #3: 1 Performed By: #### L 500.2500, L100.0100 #### [facility] [address] [place], [address] CO2 [Moles/Vol] 37.0 mmol/L High 21.0-32.0 [facility] Comment on above: Order Comment: 'TROP ' Serial specimen #1, #2 or #3: 1 Performed By: #### L 500.2500, L100.0100 #### [facility] [address] [place], [address] Creatinine [Mass/Vol] 0.82 mg/dL Normal 0.70-1.30 [facility] Comment on above: Order Comment: 'TROP ' Serial specimen #1, #2 or #3: 1 Result Comment: The validity of the calculated GFR GFRAA in patients over 70 years has not been determined. Clinical correlation is essential. Performed By: #### L 500.2500, L100.0100 #### [facility] [address] [place], [address] ECRCL 90.07 ml/min Normal [facility] Comment on above: Order Comment: 'TROP ' Serial specimen #1, #2 or #3: 1 Performed By: #### L 500.2500, L100.0100 #### [facility] [address] [place], [address] EST GFR - AA 128 mL/min Normal >60 [facility] Comment on above: Order Comment: 'TROP ' Serial specimen #1, #2 or #3: 1 Result Comment: Afri can Spanish GFR Calc Performed By: #### L 500.2500, L100.0100 #### [facility] [address] [place], [address] GAP 4 Low 5-15 [facility] Comment on above: Order Comment: 'TROP ' Serial specimen #1, #2 or #3: 1 Performed By: #### L 500.2500, L100.0100 #### [facility] [address] [place], [address] GFR/1.73 sq M.predicted among non-blacks MDRD (S/P/Bld) [Vol rate/Area] 106 mL/min/{1.73_m2} Normal >60 [facility] Comment on above: Order Comment: 'TROP ' Serial specimen #1, #2 or #3: 1 Result Comment: Non- GFR Calc Performed By: #### L 500.2500, L100.0100 #### [facility] [address] [place], [address] Glucose [Mass/Vol] 146 mg/dL High 74-[address] [facility] Comment on above: Order Comment: 'TROP ' Serial specimen #1, #2 or #3: 1 Result Comment: Fast ing Glucose result greater than or equal to 126 mg/dL suggests DIABETES MELLITUS per A.D.A. criteria. Performed By: #### L 500.2500, L100.0100 #### [facility] [address] [place], [address] Potassium [Moles/Vol] 3.5 mmol/L Normal 3.5-5.1 [facility] Comment on above: Order Comment: 'TROP ' Serial specimen #1, #2 or #3: 1 Performed By: #### L 500.2500, L100.0100 #### [facility] [address] [place], [address] Sodium [Moles/Vol] 142 mmol/L Normal 136-[address] [facility] Comment on above: Order Comment: 'TROP ' Serial specimen #1, #2 or #3: 1 Performed By: #### L 500.2500, L100.0100 #### [facility] [address] [place], [address] Urea nitrogen [Mass/Vol] 28 mg/dL High 7-18 [facility] Comment on above: Order Comment: 'TROP ' Serial specimen #1, #2 or #3: 1 Performed By: #### L 500.2500, L100.0100 #### [facility] [address] [place], [address] [facility]IE TEST Positive Normal [facility] Comment on above: Performed By: #### L 500.2500, L100.0100 #### [facility] [address] [place], [address] Base excess Calc (Bld) [Moles/Vol] 10 mmol/L High -2 to +2 [facility] Comment on above: Performed By: #### L 500.2500, L100.0100 #### [facility] [address] [place], [address] Blood Gas Type ART Normal [facility] Comment on above: Performed By: #### L 500.2500, L100.0100 #### [facility] [address] [place], [address] CO2 [Moles/Vol] 38 mmol/L Normal [facility] Comment on above: Performed By: #### L 500.2500, L100.0100 #### [facility] [address] [place], [address] FI02 60.0 Normal [facility] Comment on above: Performed By: #### L 500.2500, L100.0100 #### [facility] [address] [place], [address] HCO3 (Bld) [Moles/Vol] 35.7 mmol/L High 22-26 [facility] Comment on above: Performed By: #### L 500.2500, L100.0100 #### [facility] [address] [place], [address] Mode Not entered Normal [facility] Comment on above: Performed By: #### L 500.2500, L100.0100 #### [facility] [address] [place], [address] O2 Delivery Dev BiPAP Normal [facility] Comment on above: Performed By: #### L 500.2500, L100.0100 #### [facility] [address] [place], [address] pCO2 66.3 mmHg High 35-45 [facility] Comment on above: Performed By: #### L 500.2500, L100.0100 #### [facility] [address] [place], [address] PEEP 6 Normal [facility] Comment on above: Performed By: #### L 500.2500, L100.0100 #### [facility] [address] [place], [address] pH (Bld) 7.34 [pH] Low 7.35-7.45 [facility] Comment on above: Performed By: #### L 500.2500, L100.0100 #### [facility] [address] [place], [address] PO2 343 mmHG Invalid Interpretation Code 75-100 [facility] Comment on above: Performed By: #### L 500.2500, L100.0100 #### [facility] [address] [place], [address] Read Back By Yes Normal [facility] Comment on above: Performed By: #### L 500.2500, L100.0100 #### [facility] [address] [place], [address] Results To CASSIE Normal [facility] Comment on above: Performed By: #### L 500.2500, L100.0100 #### [facility] [address] [place], [address] RR 12 Normal [facility] Comment on above: Performed By: #### L 500.2500, L100.0100 #### [facility] [address] [place], [address] SITE L Brach Normal [facility] Comment on above: Performed By: #### L 500.2500, L100.0100 #### [facility] [address] [place], [address] SO2 100 High 95-99 [facility] Comment on above: Performed By: #### L 500.2500, L100.0100 #### [facility] [address] [place], [address] Time Given 16:29:44 Normal [facility] Comment on above: Performed By: #### L 500.2500, L100.0100 #### [facility] [address] [place], [address] Blood bicarbonate measuremen tOrdered By: Julius Matthews on 10-21-2024 Blood Gas Bicarbonate Actual 35.7 mmol/L High 22-26 [place] [facility] CBC W/Diff, Automatedon 01-2 0-2024 Absolute Lymph 2.02 X10 3/uL Normal 0.83-4.51 [facility] Comment on above: Performed By: #### L 500.2500, L100.0100 #### [facility] [address] [place], [address] Absolute Neut 6.3 X10 3/uL Normal 2.0-7.7 [facility] Comment on above: Performed By: #### L 500.2500, L100.0100 #### [facility] [address] [place], [address] Basophils/100 WBC (Bld) 0.7 % Normal 0-1 [facility] Comment on above: Performed By: #### L 500.2500, L100.0100 #### [facility] [address] [place], [address] Eosinophils/100 WBC (Bld) 7.3 % High 0-5 [facility] Comment on above: Performed By: #### L 500.2500, L100.0100 #### [facility] [address] [place], [address] Erythrocyte distribution width (RBC) [Ratio] 12.6 % Normal 11.6-14.6 [facility] Comment on above: Performed By: #### L 500.2500, L100.0100 #### [facility] [address] [place], [address] Hematocrit (Bld) [Volume fraction] 41.5 % Normal 40-54 [facility] Comment on above: Performed By: #### L 500.2500, L100.0100 #### [facility] [address] [place], [address] Hemoglobin (Bld) [Mass/Vol] 13.8 g/dL Normal 13.0-16.5 [facility] Comment on above: Performed By: #### L 500.2500, L100.0100 #### [facility] [address] [place], [address] IG% 0.200 Normal 0.0-0.9 [facility] Comment on above: Result Comment: IG% - Immature Granulocytes (promyelocytes, myelocytes and metamyelocytes) > 1% indicates that a LEFT SHIFT is Present. Performed By: #### L 500.2500, L100.0100 #### [facility] [address] [place], [address] Lymphocytes/100 WBC (Bld) 20.6 % Normal 19-41 [facility] Comment on above: Performed By: #### L 500.2500, L100.0100 #### [facility] [address] [place], [address] MCH (RBC) [Entitic mass] 31.7 pg Normal 27.0-32.0 [facility] Comment on above: Performed By: #### L 500.2500, L100.0100 #### [facility] [address] [place], [address] MCHC (RBC) [Mass/Vol] 33.3 g/dL Normal 32-36 [facility] Comment on above: Performed By: #### L 500.2500, L100.0100 #### [facility] [address] [place], [address] MCV (RBC) [Entitic vol] 95.4 fL High 80-94 [facility] Comment on above: Performed By: #### L 500.2500, L100.0100 #### [facility] [address] [place], [address] Monocytes/100 WBC (Bld) 6.9 % Normal 0-10 [facility] Comment on above: Performed By: #### L 500.2500, L100.0100 #### [facility] [address] [place], [address] Neutrophils/100 WBC (Bld) 64.3 % Normal 47-70 [facility] Comment on above: Performed By: #### L 500.2500, L100.0100 #### [facility] [address] [place], [address] Nucleated RBC (Bld) [#/Vol] 0 10*3/uL Normal 0-5 [facility] Comment on above: Performed By: #### L 500.2500, L100.0100 #### [facility] [address] [place], [address] Platelet mean volume (Bld) [Entitic vol] 9.3 fL Normal 6.2-12.0 [facility] Comment on above: Performed By: #### L 500.2500, L100.0100 #### [facility] [address] [place], [address] Platelets (Bld) [#/Vol] 362 10*3/uL Normal 150-450 [facility] Comment on above: Performed By: #### L 500.2500, L100.0100 #### [facility] [address] [place], [address] RBC (Bld) [#/Vol] 4.35 10*6/uL Low 4.6-6.2 [facility] Comment on above: Performed By: #### L 500.2500, L100.0100 #### [facility] [address] [place], [address] RDW SD 44.6 fl High 35.1-43.9 [facility] Comment on above: Performed By: #### L 500.2500, L100.0100 #### [facility] [address] [place], [address] WBC (Bld) [#/Vol] 9.8 10*3/uL Normal 4.4-11.[address] [facility] Comment on above: Performed By: #### L 500.2500, L100.0100 #### [facility] [address] [place], [place], [address] CTA Chest W/WO Contraston CTA Chest W/WO Contrast [facility] Services [address] [place] [address] CTA Chest W/WO Contrast MR#: [id number] Acct: [id number] Name: MICHAEL MCNEILL SANTOS Rep #: [id number] : 1975 M 48 From: Andrew Jones MD PCP: Care Physician,No Primary Status: REG ER Study: CTA Chest W/WO Contrast Date of Exam: 10/21/24 Exam# [id number] Ordering Dr: [place] [id number] EXAM: CT ANGIOGRAPHY CHEST WITHOUT AND WITH INTRAVENOUS CONTRAST CLINICAL INDICATION: SOB, elevated d-dimer TECHNIQUE: Helically acquired angiography images were obtained of the chest without and with intravenous contrast. CTDIvol = ( 6.35 ) mGy, DLP = ( 210.02 ) mGycm This CT exam was performed using one or more of the following dose reduction techniques: automated exposure control, adjustment of the mA and/or kV according to patient size, and/or use of iterative reconstruction technique. MIP reconstructed images were created and reviewed. CONTRAST: IV 100mL [id number] COMPARISON: Chest CT May 02, 2014 FINDINGS: PULMONARY ARTERIES: Unremarkable. No evidence of pulmonary embolism. No PE. No aortic aneurysm or dissection. AORTA: See above. GREAT VESSELS OF AORTIC ARCH: Unremarkable. Normal in caliber. No evidence of dissection. LUNGS AND PLEURAL SPACES: Bronchial wall thickening concerning for bronchitis. There is evidence for an infectious bronchiolitis involving the right upper lobe. Pleural parenchymal scarring versus consolidation at the right upper lobe/apex. No mass. No pneumothorax. HEART: Unremarkable. Heart size is normal. No pericardial effusion. No significant coronary artery calcifications. MEDIASTINUM: Unremarkable. No mediastinal or hilar adenopathy. Esophagus is unremarkable. No hiatal hernia. THYROID: Unremarkable. No thyroid lesions. BONES/JOINTS: Unremarkable. No suspicious lytic or blastic abnormality. CT/CTA Chest W/WO Contrast IMPRESSION: 1. Infectious bronchiolitis at the right upper lobe with possible consolidative opacities more peripherally at the right upper lobe. 2. No PE. AIDOC was utilized to assist in identifying pertinent positive findings. Electronically Signed: Andrew Jones MD at 18:53 EST , CC: Dr. Julius Matthews DO; No Primary Care Physician Director Of Food And Nutrition Services: Signed Normal [facility] Chest 1 View (Portable)on Chest 1 View (Portable) [facility] Services [address] [place] [address] Chest 1 View (Portable) MR#: [id number] Acct: [id number] Name: MICHAEL MCNEILL SANTOS Rep #: [id number] : 1975 M 48 From: Andrew Jones MD PCP: Care Physician,No Primary Status: REG ER Study: Chest 1 View (Portable) Date of Exam: 10/21/24 Exam# [id number] Ordering Dr: [place] [id number] EXAM: XR CHEST, 1 VIEW CLINICAL INDICATION: Shortness of breath TECHNIQUE: Frontal view of the chest. COMPARISON: 09/19/24 FINDINGS: LUNGS AND PLEURAL SPACES: Emphysema suggestion. No consolidation. No mass. No pneumothorax. No effusion. HEART: Unremarkable. Cardiac silhouette not enlarged. MEDIASTINUM: Central airways and mediastinal contour are unremarkable. BONES/JOINTS: Unremarkable. No acute fracture. SOFT TISSUES: Unremarkable. RAD/Chest 1 View (Portable) IMPRESSION: No acute disease Electronically Signed: Andrew Jones MD at 17:16 EST , CC: Dr. Julius Matthews DO; No Primary Care Physician Director Of Food And Nutrition Services: Signed Normal [facility] D-Dimer Quantitative (DVT/PE )on 10-21-2024 D-DIMER QUANT 1.14 FEU/ug/m Invalid Interpretation Code 0.27-0.49 [facility] Comment on above: Result Comment: D-Di edouard ELEVATED (>0.49): Additional studies and clinical assessments are indicated to conclude diagnosis of: Deep Vein Thrombosis (DVT) or Pulmonary Embolism (PE) RESULTS CALLED TO ALEJANDRO 10/21/24 165Jemima Dias. REPORT READ BACK BY . SAME Performed By: #### L 300.8000 ####[facility] [address] [facility]. [place], [place], [id number] D-dimer measurement for deep venous thrombosisOrdered By: Julius Matthews on 10-21-2024 D-Dimer Quantitative (PE/DVT) 1.14 FEU/ug/m High 0.27-0.49 [facility] Comment on above: D-Dimer ELEVATED (>0 .49): Additional studies and clinicalassessments are indicated to conclude diagnosis of:Deep Vein Thrombosis (DVT) or Pulmonary Embolism (PE)RESULTS CALLED TO ALEJANDRO 10/21/24 165Jemima Galina Dias.REPORT READ BACK BY . KAREN Determination of fraction of inspired oxygenOrdered By: Julius Matthews on 10-21-2024 Blood Gas Oxygen Percent 60.0 [facility] Emergency Department Summary on 10-21-[address] [facility] Medical Records Department [address] [place] [address] Emergency Department Summary 10/21/24 MR#: [id number] Acct: [id number] Name: MICHAEL MCNEILL SANTOS Rep #: [id number] : 1975 48 From: Julius Matthews DO PCP: Care Physician,No Primary Status:ADM IN Location: [place] [address] HPI History of Present Illness Chief Complaint: Shortness of Breath [facility] Medical History (Updated 10/21/24 @ 19:[address] Troy Monroy MD) Methamphetamine abuse Ankle fracture, left Bipolar disorder Depression Anxiety Past history of chewing tobacco use Asthma with COPD Anxiety and depression Inguinal hernia bilateral, non-recurrent Hypertension Stroke/cerebrovascular accident Alcohol abuse Bull[place] of lung GERD (gastroesophageal reflux disease) Home Medications ???Medication ???Instructions ???Recorded ???Last Taken ???Type albuterol sulfate 90 mcg/actuation 2 inh inhalation Q6H PRN shortness 09/07/24 10/21/24 Rx breath activated powder inhaler of breath or wheezing #1 ea Allergy/AdvReac Type Severity Reaction Status Date / Time No Known Allergies Allergy Verified 10/21/24 21:06 Family History Father Alcoholism CAD (coronary artery disease) Heart disease Hypertension Mother Alcoholism Seizures Surgical History History of ankle surgery Social History housing: homeless Smoking Status: Never smoker Smokeless tobacco user: chewing tobacco how long ago did patient quit smoking: Notes no cig tob use, prior chew only but no current, ongoing cannabis use. alcohol intake: current details: 5-6 beers daily, occasionally whiskey. substance use type: marijuana, opiates and methamphetamine EXAM Physical Exam Const Vital Signs: 10/21/24 16:02 10/21/24 16:05 10/21/24 16:05 Temperature 97.8 F 97.6 F L Temperature Source Temporal Oral Pulse Rate 105 H 107 H 106 H Respiratory Rate 30 H 28 H 20 H Respiratory Effort Respiratory Depth Respiratory Pattern Blood Pressure 160/108 H Blood Pressure Mean 125 Pulse Ox 100 100 Oxygen Delivery Method Non-Rebreather Bi-pap Oxygen Flow Rate (L/min) 15 Fraction of Inspired Oxygen (FIO2) 10/21/24 16:05 10/21/24 16:07 10/21/24 16:08 Temperature Temperature Source Pulse Rate 106 H Respiratory Rate 20 H Respiratory Effort Short of Breath Accessory Muscle Use Head Bobbing Respiratory Depth Normal Respiratory Pattern Tachypnea Blood Pressure Blood Pressure Mean Pulse Ox 100 100 Oxygen Delivery Method Bi-pap Bi-pap Oxygen Flow Rate (L/min) Fraction of Inspired Oxygen (FIO2) 60 10/21/24 16:30 10/21/24 17:05 10/21/24 17:05 Temperature 98.1 F Temperature Source Temporal Pulse Rate 99 99 Respiratory Rate 17 17 Respiratory Effort Respiratory Depth Respiratory Pattern Blood Pressure 125/75 H 125/75 H Blood Pressure Mean 91 91 Pulse Ox 99 99 Oxygen Delivery Method Bi-pap Bi-pap Oxygen Flow Rate (L/min) Fraction of Inspired Oxygen (FIO2) 40 40 40 10/21/24 17:31 10/21/24 18:07 10/21/24 19:00 Temperature 98.1 F 98.9 F Temperature Source Temporal Oral Pulse Rate 85 78 Respiratory Rate 14 18 Respiratory Effort Respiratory Depth Respiratory Pattern Blood Pressure 106/72 118/78 Blood Pressure Mean 83 91 Pulse Ox 99 97 96 Oxygen Delivery Method Nasal Cannula Nasal Cannula Nasal Cannula Oxygen Flow Rate (L/min) 3 3 2 Fraction of Inspired Oxygen (FIO2) MDM MDM MDM Narrative Medical decision making narrative: HISTORY OF PRESENT ILLNESS: 48-year-old male presents acute onset of significant shortness of breath. He does not provide a lot of history as he has significant respiratory distress. Per EMS they were called due to shortness of breath. They note patient's initial pulse ox was 75%. They placed him on a nonrebreather and brought him to the emergency department. After initial stabilization patient noted several days of shortness of breath, on and off cough. He denies chest pain. Denies leg swelling. The patient denies recent surgery in the last 4 weeks or immobilization in the last 3 days, denies previous diagnosis of DVT or PE, hemoptysis, unilateral leg swelling or malignancy with treatment the last 6 months or palliative. No estrogen use noted. REVIEW OF SYSTEMS: Pertinent positives: Shortness of breath Pertinent negatives: Chest pain, leg swelling, syncope PHYSICAL EXAM: Nursing triage notes reviewed, Vital signs reviewed Constitutional: please see mdm HENT: MMM Eyes: Pupils equal round and reactive to light, Ext (more content not included)... Normal [facility] Influenza virus A and B and SARS-CoV-2 (COVID-19) and Respiratory syncytial virus RNAOrdered By: Julius Matthews on 10-21-2024 SARS-CoV-2 (COVID-19) RNA WES+probe Ql (Unsp spec) [facility] L501.4020on 10-21-2024 TROPONIN-I HS 8 pg/mL Normal 3.0-78.0 [facility] Comment on above: Order Comment: 'TROP ' Serial specimen #1, #2 or #3: 1 Result Comment: Plea se Note: New Test Units and Gender Specific Reference Ranges. For more information see Policy Stat Procedure [place] High Sensitivity Troponin (TNIH) and attachments. Performed By: #### L 500.2500, L100.0100 #### [facility] [address] [place], [address] M100.678on 10-21-2024 M100.678 Pending SARS-CoV-2 (COVID 19) Negative INFLUENZA A Negative INFLUENZA B Negative RSV PCR Negative Normal [facility] Comment on above: Performed By: #### L 9000.0800 #### [facility] [address] [place], [address] No Panel InformationOrdered By: Julius Matthews on 10-21-2024 Bedside Blood Gas PEEP 6 [facility] Bld Gas Crit Called To/Read Back By Yes [facility] Blood Gas Notified Time 16:29:44 [facility] Blood Gas Notified Whom CASSIE [facility] Blood Gas Respiration Rate 12 [facility] Blood Gas Sample Site L Brach [facility] Blood Gas Specimen Type ART [facility] Blood Gas Vent Mode Not entered [facility] Oxygen Delivery Device BiPAP [facility] Oxygen saturation measuremen tOrdered By: Julius Matthews on 10-21-2024 Blood Gas Oxygen Saturation 100 % High 95-99 [facility] Partial pressure of carbon d ioxide measurementOrdered By: Julius Matthews on 10-21-2024 Arterial Blood Partial Pressure CO2 66.3 mmHg High 35-45 [facility] Partial pressure of oxygen m easurementOrdered By: Julius Matthews on 10-21-2024 Arterial Blood Partial Pressure O2 343 mmHG High 75-100 [facility] Total carbon dioxide measure mentOrdered By: Julius Matthews on 10-21-2024 Blood Gas Total CO2 38 mmol/L [facility] Troponin IOrdered By: Julius Matthews on 10-21-2024 Troponin I High Sensitivity 8 pg/mL 3.0-78.0 [facility] Comment on above: Please Note: New Rubi t Units and Gender Specific Reference Ranges. For more information see Policy Stat Procedure [place] High Sensitivity Troponin (TNIH) and attachments. pH (Unsp spec)Ordered By: Benitez Matthews on 10-21-2024 Blood Gas pH 7.34 Low 7.35-7.45 [facility] 12 Lead EKGon 09-19-2024 12 Lead EKG [facility] [address] [place] [address] 12 Lead EKG 09/19/24 1821 MR#: [id number] Acct: [id number] Name: MICHAEL MCNEILL SANTOS Rep #: [id number] : 1975 48 From: Markus Perry MD Attending Dr: Status: DEP ER Ordering Dr: Troy Monsalve [facility] Date: 09/19/24 Location: ED Sex: M C Admitted: Test Reason : SOB Blood Pressure : */* mmHG Vent. Rate : 88 BPM Atrial Rate : 88 BPM P-R Int : 126 ms QRS Dur : 82 ms QT Int : 380 ms P-R-T Axes : 82 70 62 degrees QTcB Int : 459 ms Poor data quality, interpretation may be adversely affected Normal sinus rhythm Normal ECG When compared with ECG of 07-Sep-2024 12:05, Vent. rate has increased by 29 bpm Confirmed by MARKUS PERRY MD ([id number]), editor continuity and script PEBBLES FELICIANO ([id number]) on 09/23/2024 8:38:17 AM Referred By: Confirmed By: MARKUS PERRY MD 09/23/24 0838 Date Markus Perry MD CC: [facility] Troy Monsalve; Dr. Julius Matthews, DO; No Primary Care Physician Signed Normal [facility] Absolute neutrophil countOrd ered By: Troy Monsalve on 09-19-2024 Neutrophils (Bld) [#/Vol] 6.3 10*3/uL 2.0-7.7 [facility] Basic Metabolic Profile (BMP )on 09-19-2024 BUN/CRE 24.0 RATIO High 07-21 [facility] Comment on above: Performed By: #### L 500.2500, L100.0100 #### [facility] [address] [place], [address] CA,Total 9.2 mg/dL Normal 8.5-10.1 [facility] Comment on above: Performed By: #### L 500.2500, L100.0100 #### [facility] [address] [place], [address] Chloride [Moles/Vol] 103 mmol/L Normal 98-107 [facility] Comment on above: Performed By: #### L 500.2500, L100.0100 #### [facility] [address] [place], [address] CO2 [Moles/Vol] 31.0 mmol/L Normal 21.0-32.0 [facility] Comment on above: Performed By: #### L 500.2500, L100.0100 #### [facility] [address] [place], [address] Creatinine [Mass/Vol] 0.75 mg/dL Normal 0.70-1.30 [facility] Comment on above: Result Comment: The validity of the calculated GFR GFRAA in patients over 70 years has not been determined. Clinical correlation is essential. Performed By: #### L 500.2500, L100.0100 #### [facility] [address] [place], [address] ECRCL 112.61 ml/min Normal [facility] Comment on above: Performed By: #### L 500.2500, L100.0100 #### [facility] [address] [place], [address] EST GFR - AA 142 mL/min Normal >60 [facility] Comment on above: Result Comment: Afri can Spanish GFR Calc Performed By: #### L 500.2500, L100.0100 #### [facility] [address] [place], [address] GAP 3 Low 5-15 [facility] Comment on above: Performed By: #### L 500.2500, L100.0100 #### [facility] [address] [place], [address] GFR/1.73 sq M.predicted among non-blacks MDRD (S/P/Bld) [Vol rate/Area] 118 mL/min/{1.73_m2} Normal >60 [facility] Comment on above: Result Comment: Non- GFR Calc Performed By: #### L 500.2500, L100.0100 #### [facility] [address] [place], [address] Glucose [Mass/Vol] 101 mg/dL Normal 74-[address] [facility] Comment on above: Result Comment: Fast ing Glucose result from 100 to 125 mg/dL suggests IMPAIRED HOMEOSTASIS per A.D.A. criteria. Performed By: #### L 500.2500, L100.0100 #### [facility] [address] [place], [address] Potassium [Moles/Vol] 4.1 mmol/L Normal 3.5-5.1 [facility] Comment on above: Performed By: #### L 500.2500, L100.0100 #### [facility] [address] [place], [address] Sodium [Moles/Vol] 137 mmol/L Normal 136-[address] [facility] Comment on above: Performed By: #### L 500.2500, L100.0100 #### [facility] [address] [place], [address] Urea nitrogen [Mass/Vol] 18 mg/dL Normal 7-18 [facility] Comment on above: Performed By: #### L 500.2500, L100.0100 #### [facility] [address] [place], [address] Basophil percentageOrdered B y: Troy Monsalve on 09-19-2024 Basophils/100 WBC (Bld) 1.0 % 0-1 [facility] Blood urea nitrogen (BUN)/cr eatinine ratioOrdered By: Troy Monsalve on 09-19-2024 Urea nitrogen/Creatinine [Mass ratio] 24.0 mg/mg High 10-20 [facility] CBC W/Diff, Automatedon 09-01 Absolute Lymph 1.48 X10 3/uL Normal 0.83-4.51 [facility] Comment on above: Performed By: #### L 500.2500, L100.0100 #### [facility] [address] [place], [address] Absolute Neut 6.3 X10 3/uL Normal 2.0-7.7 [facility] Comment on above: Performed By: #### L 500.2500, L100.0100 #### [facility] [address] [place], [address] Basophils/100 WBC (Bld) 1.0 % Normal 0-1 [facility] Comment on above: Performed By: #### L 500.2500, L100.0100 #### [facility] [address] [place], [address] Eosinophils/100 WBC (Bld) 7.1 % High 0-5 [facility] Comment on above: Performed By: #### L 500.2500, L100.0100 #### [facility] [address] [place], [address] Erythrocyte distribution width (RBC) [Ratio] 12.6 % Normal 11.6-14.6 [facility] Comment on above: Performed By: #### L 500.2500, L100.0100 #### [facility] [address] [place], [address] Hematocrit (Bld) [Volume fraction] 43.7 % Normal 40-54 [facility] Comment on above: Performed By: #### L 500.2500, L100.0100 #### [facility] [address] [place], [address] Hemoglobin (Bld) [Mass/Vol] 14.5 g/dL Normal 13.0-16.5 [facility] Comment on above: Performed By: #### L 500.2500, L100.0100 #### [facility] [address] [place], [address] IG% 0.300 Normal 0.0-0.9 [facility] Comment on above: Result Comment: IG% - Immature Granulocytes (promyelocytes, myelocytes and metamyelocytes) > 1% indicates that a LEFT SHIFT is Present. Performed By: #### L 500.2500, L100.0100 #### [facility] [address] [place], [address] Lymphocytes/100 WBC (Bld) 16.2 % Low 19-41 [facility] Comment on above: Performed By: #### L 500.2500, L100.0100 #### [facility] [address] [place], [address] MCH (RBC) [Entitic mass] 31.4 pg Normal 27.0-32.0 [facility] Comment on above: Performed By: #### L 500.2500, L100.0100 #### [facility] [address] [place], [address] MCHC (RBC) [Mass/Vol] 33.2 g/dL Normal 32-36 [facility] Comment on above: Performed By: #### L 500.2500, L100.0100 #### [facility] [address] [place], [address] MCV (RBC) [Entitic vol] 94.6 fL High 80-94 [facility] Comment on above: Performed By: #### L 500.2500, L100.0100 #### [facility] [address] [place], [address] Monocytes/100 WBC (Bld) 6.6 % Normal 0-10 [facility] Comment on above: Performed By: #### L 500.2500, L100.0100 #### [facility] [address] [place], [address] Neutrophils/100 WBC (Bld) 68.8 % Normal 47-70 [facility] Comment on above: Performed By: #### L 500.2500, L100.0100 #### [facility] [address] [place], [address] Nucleated RBC (Bld) [#/Vol] 0 10*3/uL Normal 0-5 [facility] Comment on above: Performed By: #### L 500.2500, L100.0100 #### [facility] [address] [place], [address] Platelet mean volume (Bld) [Entitic vol] 9.4 fL Normal 6.2-12.0 [facility] Comment on above: Performed By: #### L 500.2500, L100.0100 #### [facility] [address] [place], [address] Platelets (Bld) [#/Vol] 302 10*3/uL Normal 150-450 [facility] Comment on above: Performed By: #### L 500.2500, L100.0100 #### [facility] [address] [place], [address] RBC (Bld) [#/Vol] 4.62 10*6/uL Normal 4.6-6.2 [facility] Comment on above: Performed By: #### L 500.2500, L100.0100 #### [facility] [address] [place], [address] RDW SD 43.4 fl Normal 35.1-43.9 [facility] Comment on above: Performed By: #### L 500.2500, L100.0100 #### [facility] [address] [place], [address] WBC (Bld) [#/Vol] 9.1 10*3/uL Normal 4.4-11.[address] [facility] Comment on above: Performed By: #### L 500.2500, L100.0100 #### [facility] [address] [place], [address] Carbon dioxide measurementOr dered By: Troy Monsalve on 09-19-2024 CO2 [Moles/Vol] 31.0 mmol/L 21.0-32.0 [facility] Chest PA and Lateralon 09-19 Chest PA and Lateral [facility] Imaging Services [address] [place] [address] Chest PA and Lateral MR#: [id number] Acct: [id number] Name: MICHAEL MCNEILL SANTOS Rep #: [id number] : 1975 M 48 From: José Miguel Madsen MD PCP: Care Physician,No Primary Status: REG ER Study: Chest PA and Lateral Date of Exam: 09/19/24 Exam# [id number] Ordering Dr: Troy Monsalve [address] [facility] [place] [id number] EXAM: XR CHEST, 2 VIEWS CLINICAL INDICATION: cough TECHNIQUE: Frontal and lateral views of the chest. COMPARISON: 09/07/2024 FINDINGS: LUNGS AND PLEURAL SPACES: Unremarkable. No consolidation or edema. No pneumothorax. No effusion. HEART: Unremarkable. Cardiac silhouette not enlarged. MEDIASTINUM: Central airways and mediastinal contour are unremarkable. BONES/JOINTS: Unremarkable. No acute fracture. SOFT TISSUES: Unremarkable. RAD/Chest PA and Lateral IMPRESSION: No radiographic evidence of acute cardiopulmonary disease. Electronically Signed: José Miguel Madsen MD at 19:32 EST , CC: NIKHIL Monsalve; No Primary Care Physician Director Of Food And Nutrition Services: Signed Normal [facility] Chloride measurementOrdered By: Troy Monsalve on 09-19-2024 Chloride [Moles/Vol] 103 mmol/L 98-107 [facility] Emergency Department Summary on 09-19-[address] [facility] Medical Records Department [address] [place] [address] Emergency Department Summary 09/19/24 MR#: [id number] Acct: [id number] Name: MICHAEL MCNEILL SANTOS Rep #: [id number] : 1975 48 From: Julius Matthews DO PCP: Care Physician,No Primary Status:DEP ER Location: ED HPI History of Present Illness Chief Complaint: Cough Narrative Narrative: Patient is a 48-year-old male with history of intermittent drug abuse, history of alcohol abuse, asthma, COPD who presents to the emerged department for cough and shortness of breath. Patient was seen here on 07 September, diagnosed with asthma exacerbation, placed with an albuterol inhaler as well as prednisone. Patient states he has been outside a lot today, he does work in the [employer]. Patient states he is now having more shortness of breath, cough and is here for evaluation. He denies any fever chills nausea or vomiting. [facility] Medical History Ankle fracture, left Bipolar disorder Depression Anxiety Past history of chewing tobacco use Asthma with COPD Anxiety and depression Inguinal hernia bilateral, non-recurrent Hypertension Stroke/cerebrovascular accident Alcohol abuse Methamphetamine abuse Bull[place] of lung GERD (gastroesophageal reflux disease) Home Medications ???Medication ???Instructions ???Recorded ???Last Taken ???Type albuterol sulfate 90 mcg/actuation 2 inh inhalation Q6H PRN shortness 09/07/24 Unknown Rx breath activated powder inhaler of breath or wheezing #1 ea prednisone 20 mg tablet 20 mg PO DAILY 5 days #5 tabs 09/07/24 Unknown Rx azithromycin 250 mg tablet See Rx Instructions PO .COMPLEX #6 09/19/24 Unknown Rx tabs prednisone 50 mg tablet 50 mg PO DAILY #5 tabs 09/19/24 Unknown Rx Allergy/AdvReac Type Severity Reaction Status Date / Time No Known Allergies Allergy Verified 09/19/24 17:49 Family History Father Alcoholism CAD (coronary artery disease) Heart disease Hypertension Mother Alcoholism Seizures Surgical History History of ankle surgery Social History housing: homeless Smoking Status: Never smoker Smokeless tobacco user: chewing tobacco how long ago did patient quit smoking: Notes no cig tob use, prior chew only but no current, ongoing cannabis use. alcohol intake: current details: 5-6 beers daily, occasionally whiskey. substance use type: marijuana, opiates and methamphetamine ROS ROS ED ROS Narrative Constitutional: Negative for fever, chills, weight loss, weakness Eyes: Negative for vision loss, vision change, double vision ENT: Negative for any sore throat, ear pain, congestion Cardiovascular: Negative for any chest pain, tightness, palpitations Respiratory: Negative for any sputum production, hemoptysis, orthopnea. Positive cough, dyspnea, dyspnea on exertion Gastrointestinal: Negative for any abdominal pain, nausea, vomiting, diarrhea, constipation, blood in stool, blood in vomit : Negative for any urinary frequency, dysuria, retention, blood in urine Muscle skeletal: Negative for any neck pain, back pain Neurological: Negative for any headache, syncope, dizziness Skin: Negative for any rashes, itching, abrasions, lacerations Psychiatric: Negative for any depression, anxiety, stress, suicidal ideation, homicidal ideation Hematologic: Negative for any excessive bruising, easy bleeding EXAM Physical Exam Narrative Exam Narrative: Vital signs reviewed. Patient did have some conversational dyspnea, tachypnea. HEET: Head normocephalic atraumatic, TMs clear bilaterally. Posterior pharynx is clear, moist mucous membranes. Nares clear bilaterally. Neck: Supple with no lymphadenopathy or tenderness. No signs of meningismus. Cardiac: Regular rate and rhythm no murmurs gallops or rubs, equal peripheral pulses bilaterally. Respiratory: Expiratory wheezes throughout pulmonary exam. No chest tenderness. Abdomen: Soft, nontender, nondistended. No abdominal bruit or pulsatile masses. No hepatosplenomegaly Extremities: No peripheral edema, no signs of gross trauma or deformity. Active full range of motion of all extremities. Neuro: Cranial nerves II through XII intact, no focal neurological deficits. Skin: Clean dry and intact with no rash, purpura, petechiae, vesicles or pustules. Backs/flank: No CVA tenderness, no midline spinal tenderness, no deformity. Psych: Normal mood and affect. No SI, HI or acute psychosis. Const Vital Signs: 09/19/24 17:47 09/19/24 18:18 09/19/24 19:00 Temperature 96.7 F L Temperature Source Temporal Pulse Rate 72 86 Respiratory Rate 16 17 R (more content not included)... Normal [facility] Eosinophil percentageOrdered By: Troy Monsalve on 09-19-2024 Eosinophils/100 WBC (Bld) 7.1 % High 0-5 [facility] Erythrocyte distribution wid th ratioOrdered By: Troy Monsalve on 09-19-2024 Erythrocyte distribution width (RBC) [Ratio] 12.6 % 11.6-14.6 [facility] Erythrocyte distribution wid th standard deviationOrdered By: Troy Monsalve on 09-19-2024 Erythrocyte distribution width (RBC) [Entitic vol] 43.4 fL 35.1-43.9 [facility] Estimated glomerular filtrat ion rate (GFR) AmericanOrdered By: Troy Monsalve on 09-19-2024 Estimated GFR (MDRD) Amer 142 mL/min >60 [facility] Comment on above: GFR Calc Estimation of creatinine akbar aranceOrdered By: Troy Monsalve on 09-19-2024 Estimated Creatinine Clearance Calc 112.61 ml/min [facility] Glomerular filtration rate ( GFR) estimationOrdered By: Troy Monsalve on 09-19-2024 Estimated GFR (MDRD) Non-Af Amer 118 mL/min >60 [facility] Comment on above: Non- GFR Calc Glucose measurementOrdered B y: Troy Monsalve on 09-19-2024 Glucose [Mass/Vol] 101 mg/dL 74-[address] [facility] Comment on above: Fasting Glucose resu lt from 100 to 125 mg/dL suggests IMPAIRED HOMEOSTASIS per A.D.A. criteria. Hematocrit Auto (Bld) [Volum e fraction]Ordered By: Troy Monsalve on 09-19-2024 Hematocrit (Bld) [Volume fraction] 43.7 % 40-54 [facility] Hemoglobin measurementOrdere d By: Troy Monsalve on 09-19-2024 Hemoglobin (Bld) [Mass/Vol] 14.5 g/dL 13.0-16.5 [facility] Immature granulocytes/100 WB C Auto (Bld)Ordered By: Troy Monsalve on 09-19-2024 Immature granulocytes/100 WBC (Bld) 0.300 % 0.0-0.9 [facility] Comment on above: IG% - Immature Granu locytes (promyelocytes, myelocytes and metamyelocytes) > 1% indicates that a LEFT SHIFT is Present. Lymphocytes Auto (Unsp spec) [#/Vol]Ordered By: Troy Monsalve on 09-19-2024 Lymphocytes (Bld) [#/Vol] 1.48 10*3/uL 0.83-4.51 [facility] Lymphocytes/100 WBC Auto (Un sp spec)Ordered By: Troy Monsalve on 09-19-2024 Lymphocytes/100 WBC (Bld) 16.2 % Low 19-41 [facility] MCV (mean corpuscular volume ) determinationOrdered By: Troy Monsalve on 09-19-2024 MCV (RBC) [Entitic vol] 94.6 fL High 80-94 [facility] Mean corpuscular hemoglobin (MCH) determinationOrdered By: Troy Monsalve on 09-19-2024 MCH (RBC) [Entitic mass] 31.4 pg 27.0-32.0 [facility] Mean corpuscular hemoglobin concentration (MCHC) determinationOrdered By: Tryo Monsalve on 09-19-2024 MCHC (RBC) [Mass/Vol] 33.2 g/dL 32-36 [facility] Mean platelet volume determi nationOrdered By: Troy Monsalve on 09-19-2024 Platelet mean volume (Bld) [Entitic vol] 9.4 fL 6.2-12.0 [facility] Monocyte percentageOrdered B y: Troy Monsalve on 09-19-2024 Monocytes/100 WBC (Bld) 6.6 % 0-10 [facility] Neutrophil percentageOrdered By: Troy Monsalve on 09-19-2024 Neutrophils/100 WBC (Bld) 68.8 % 47-70 [facility] Nucleated red blood cell per centageOrdered By: Troy Monsalve on 09-19-2024 Nucleated RBC/100 WBC (Bld) [Ratio] 0 % 0-5 [facility] Platelet countOrdered By: Malia Monsalve on 09-19-2024 Platelets (Bld) [#/Vol] 302 10*3/uL 150-450 [facility] Potassium measurementOrdered By: Troy Monsalve on 09-19-2024 Potassium [Moles/Vol] 4.1 mmol/L 3.5-5.1 [facility] RBC Auto (Bld) [#/Vol]Ordere d By: Troy Monsalve on 09-19-2024 RBC (Bld) [#/Vol] 4.62 10*6/uL 4.6-6.2 [facility] Serum anion gap measurementO rdered By: Troy Monsalve on 09-19-2024 Anion gap [Moles/Vol] 3 mmol/L Low 5-15 [facility] Serum or plasma calcium micah urement (mass/volume)Ordered By: Troy Monsalve on 09-19-2024 Calcium [Mass/Vol] 9.2 mg/dL 8.5-10.[address] [facility] Serum or plasma creatinine m easurement (mass/volume)Ordered By: Troy Monsalve on 09-19-2024 Creatinine [Mass/Vol] 0.75 mg/dL 0.70-1.30 [facility] Comment on above: The validity of the calculated GFR & GFRAA in patients over 70 years has not been determined. Clinical correlation is essential. Serum or plasma urea nitroge n measurement (mass/volume)Ordered By: Troy Monsalve on 09-19-2024 Urea nitrogen [Mass/Vol] 18 mg/dL 7-18 [facility] Sodium levelOrdered By: Troy Monsalve on 09-19-2024 Sodium [Moles/Vol] 137 mmol/L 136-[address] [facility] White blood cell (WBC) count Ordered By: Troy Monsalve on 09-19-2024 WBC (Bld) [#/Vol] 9.1 10*3/uL 4.4-11.[address] [facility] 12 Lead EKGon 09-07-2024 12 Lead EKG [facility] Cardiovascular Services [address] [place] [address] 12 Lead EKG 09/07/24 1205 MR#: [id number] Acct: [id number] Name: MICHAEL MCNEILL SANTOS Rep #: [id number] : 1975 48 From: Peña Martinez MD Attending Dr: Status: DEP ER Ordering Dr: Julius Matthews DO Date: 09/07/24 Location: ED Sex: M C Admitted: Test Reason : SOB Blood Pressure : */* mmHG Vent. Rate : 59 BPM Atrial Rate : 59 BPM P-R Int : 122 ms QRS Dur : 90 ms QT Int : 448 ms P-R-T Axes : 49 66 59 degrees QTcB Int : 443 ms Sinus bradycardia with sinus arrhythmia Otherwise normal ECG Confirmed by Peña Martinez ([id number]), editor continuity and script PEBBLES FELICIANO ([id number]) on 09/09/2024 6:58:28 AM Referred By: Confirmed By: Peña Martinez 09/09/24 0658 Date Peña Martinez MD CC: Dr. Julius Matthews DO; No Primary Care Physician Signed Normal [facility] Absolute neutrophil countOrd ered By: Julius Matthews on 09-07-2024 Neutrophils (Bld) [#/Vol] 3.2 10*3/uL 2.0-7.7 [facility] Basic Metabolic Profile (BMP )on 09-07-2024 BUN/CRE 21.6 RATIO High 10-20 [facility] Comment on above: Order Comment: 'TROP ' Serial specimen #1, #2 or #3: 1 Performed By: #### L 9000.0800 #### [facility] [address] [place], [address] CA,Total 9.1 mg/dL Normal 8.5-10.1 [facility] Comment on above: Order Comment: 'TROP ' Serial specimen #1, #2 or #3: 1 Performed By: #### L 9000.0800 #### [facility] [address] [place], [address] Chloride [Moles/Vol] 109 mmol/L High 98-107 [facility] Comment on above: Order Comment: 'TROP ' Serial specimen #1, #2 or #3: 1 Performed By: #### L 9000.0800 #### [facility] [address] [place], [address] CO2 [Moles/Vol] 28.0 mmol/L Normal 21.0-32.0 [facility] Comment on above: Order Comment: 'TROP ' Serial specimen #1, #2 or #3: 1 Performed By: #### L 9000.0800 #### [facility] [address] [place], [address] Creatinine [Mass/Vol] 0.83 mg/dL Normal 0.70-1.30 [facility] Comment on above: Order Comment: 'TROP ' Serial specimen #1, #2 or #3: 1 Result Comment: The validity of the calculated GFR GFRAA in patients over 70 years has not been determined. Clinical correlation is essential. Performed By: #### L 9000.0800 #### [facility] [address] [place], [address] ECRCL 91.48 ml/min Normal [facility] Comment on above: Order Comment: 'TROP ' Serial specimen #1, #2 or #3: 1 Performed By: #### L 9000.0800 #### [facility] [address] [place], [address] EST GFR - AA 126 mL/min Normal >60 [facility] Comment on above: Order Comment: 'TROP ' Serial specimen #1, #2 or #3: 1 Result Comment: Afri can Spanish GFR Calc Performed By: #### L 9000.0800 #### [facility] [address] [place], [address] GAP 4 Low 5-15 [facility] Comment on above: Order Comment: 'TROP ' Serial specimen #1, #2 or #3: 1 Performed By: #### L 9000.0800 #### [facility] [address] [place], [address] GFR/1.73 sq M.predicted among non-blacks MDRD (S/P/Bld) [Vol rate/Area] 105 mL/min/{1.73_m2} Normal >60 [facility] Comment on above: Order Comment: 'TROP ' Serial specimen #1, #2 or #3: 1 Result Comment: Non- GFR Calc Performed By: #### L 9000.0800 #### [facility] [address] [place], [address] Glucose [Mass/Vol] 105 mg/dL Normal 74-[address] [facility] Comment on above: Order Comment: 'TROP ' Serial specimen #1, #2 or #3: 1 Result Comment: Fast ing Glucose result from 100 to 125 mg/dL suggests IMPAIRED HOMEOSTASIS per A.D.A. criteria. Performed By: #### L 9000.0800 #### [facility] [address] [place], [address] Potassium [Moles/Vol] 3.8 mmol/L Normal 3.5-5.1 [facility] Comment on above: Order Comment: 'TROP ' Serial specimen #1, #2 or #3: 1 Performed By: #### L 9000.0800 #### [facility] [address] [place], [address] Sodium [Moles/Vol] 142 mmol/L Normal 136-[address] [facility] Comment on above: Order Comment: 'TROP ' Serial specimen #1, #2 or #3: 1 Performed By: #### L 9000.0800 #### [facility] [address] [place], [address] Urea nitrogen [Mass/Vol] 18 mg/dL Normal 7-18 [facility] Comment on above: Order Comment: 'TROP ' Serial specimen #1, #2 or #3: 1 Performed By: #### L 9000.0800 #### [facility] [address] [place], [address] Basophil percentageOrdered B y: Julius Matthews on 09-07-2024 Basophils/100 WBC (Bld) 0.9 % 0-1 [facility] Blood urea nitrogen (BUN)/cr eatinine ratioOrdered By: Julius Matthews on 09-07-2024 Urea nitrogen/Creatinine [Mass ratio] 21.6 mg/mg High 10-20 [facility] CBC W/Diff, Automatedon 12-0 -2023 Absolute Lymph 1.14 X10 3/uL Normal 0.83-4.51 [facility] Comment on above: Performed By: #### L 9000.0800 #### [facility] [address] [place], [address] Absolute Neut 3.2 X10 3/uL Normal 2.0-7.7 [facility] Comment on above: Performed By: #### L 9000.0800 #### [facility] [address] [place], [address] Basophils/100 WBC (Bld) 0.9 % Normal 0-1 [facility] Comment on above: Performed By: #### L 9000.0800 #### [facility] [address] [place], [address] Eosinophils/100 WBC (Bld) 11.8 % High 0-5 [facility] Comment on above: Performed By: #### L 9000.0800 #### [facility] [address] [place], [address] Erythrocyte distribution width (RBC) [Ratio] 12.5 % Normal 11.6-14.6 [facility] Comment on above: Performed By: #### L 9000.0800 #### [facility] [address] [place], [address] Hematocrit (Bld) [Volume fraction] 41.1 % Normal 40-54 [facility] Comment on above: Performed By: #### L 9000.0800 #### [facility] [address] [place], [address] Hemoglobin (Bld) [Mass/Vol] 13.8 g/dL Normal 13.0-16.5 [facility] Comment on above: Performed By: #### L 9000.0800 #### [facility] [address] [place], [address] IG% 0.400 Normal 0.0-0.9 [facility] Comment on above: Result Comment: IG% - Immature Granulocytes (promyelocytes, myelocytes and metamyelocytes) > 1% indicates that a LEFT SHIFT is Present. Performed By: #### L 9000.0800 #### [facility] [address] [place], [address] Lymphocytes/100 WBC (Bld) 21.1 % Normal 19-41 [facility] Comment on above: Performed By: #### L 9000.0800 #### [facility] [address] [place], [address] MCH (RBC) [Entitic mass] 31.8 pg Normal 27.0-32.0 [facility] Comment on above: Performed By: #### L 9000.0800 #### [facility] [address] [place], [address] MCHC (RBC) [Mass/Vol] 33.6 g/dL Normal 32-36 [facility] Comment on above: Performed By: #### L 9000.0800 #### [facility] [address] [place], [address] MCV (RBC) [Entitic vol] 94.7 fL High 80-94 [facility] Comment on above: Performed By: #### L 9000.0800 #### [facility] [address] [place], [address] Monocytes/100 WBC (Bld) 7.4 % Normal 0-10 [facility] Comment on above: Performed By: #### L 9000.0800 #### [facility] [address] [place], [address] Neutrophils/100 WBC (Bld) 58.4 % Normal 47-70 [facility] Comment on above: Performed By: #### L 9000.0800 #### [facility] [address] [place], [address] Nucleated RBC (Bld) [#/Vol] 0 10*3/uL Normal 0-5 [facility] Comment on above: Performed By: #### L 9000.0800 #### [facility] [address] [place], [address] Platelet mean volume (Bld) [Entitic vol] 9.3 fL Normal 6.2-12.0 [facility] Comment on above: Performed By: #### L 9000.0800 #### [facility] [address] [place], [address] Platelets (Bld) [#/Vol] 327 10*3/uL Normal 150-450 [facility] Comment on above: Performed By: #### L 9000.0800 #### [facility] [address] [place], [address] RBC (Bld) [#/Vol] 4.34 10*6/uL Low 4.6-6.2 [facility] Comment on above: Performed By: #### L 9000.0800 #### [facility] [address] [place], [address] RDW SD 43.4 fl Normal 35.1-43.9 [facility] Comment on above: Performed By: #### L 9000.0800 #### [facility] [address] [place], [address] WBC (Bld) [#/Vol] 5.4 10*3/uL Normal 4.4-11.[address] [facility] Comment on above: Performed By: #### L 9000.0800 #### [facility] [address] [place], [address] Carbon dioxide measurementOr dered By: Julius Matthews on 09-07-2024 CO2 [Moles/Vol] 28.0 mmol/L 21.0-32.0 [facility] Chest 1 View (Portable)on Chest 1 View (Portable) [facility] Imaging Services [address] [place] [address] Chest 1 View (Portable) MR#: [id number] Acct: [id number] Name: MICHAEL MCNEILL SANTOS Rep #: [id number] : 1975 M 48 From: Darinel Stewart MD PCP: Care Physician,No Primary Status: REG ER Study: Chest 1 View (Portable) Date of Exam: 09/07/24 Exam# [id number] Ordering Dr: [place] [id number] STUDY: X-RAY CHEST REASON FOR EXAM: Male, 48 years old. SOB TECHNIQUE: AP portable view of the chest. COMPARISON: September 09, 2022 FINDINGS: The lungs are clear and hyperexpanded. There are stable right apical opacities.. There is stable right apical pleural thickening. Normal size heart. Normal mediastinum and tello. Normal visualized pulmonary arteries. Normal visualized aortic arch and descending thoracic aorta. Normal visualized thoracic spine. Normal visualized ribs, clavicles, and shoulders. There is no demonstrated abnormality of the visualized soft tissue structures of the upper abdomen. RAD/Chest 1 View (Portable) IMPRESSION: Stable right upper lung consolidation and pleural thickening. Electronically Signed: Darinel Stewart MD at 12:41 EST , CC: Dr. Julius Matthews DO; No Primary Care Physician Director Of Food And Nutrition Services: Signed Normal [facility] Chloride measurementOrdered By: Julius Matthews on 09-07-2024 Chloride [Moles/Vol] 109 mmol/L High 98-107 [facility] Emergency Department Summary on 09-07-[address] [facility] Medical Records Department [address] [place] [address] Emergency Department Summary 09/07/24 MR#: [id number] Acct: [id number] Name: MICHAEL MCNEILL SANTOS Rep #: [id number] : 1975 48 From: Julius Matthews DO PCP: Care Physician,No Primary Status:DEP ER Location: ED HPI History of Present Illness Chief Complaint: Shortness of Breath [facility] Medical History Ankle fracture, left Bipolar disorder Depression Anxiety Past history of chewing tobacco use Asthma with COPD Anxiety and depression Inguinal hernia bilateral, non-recurrent Hypertension Stroke/cerebrovascular accident Alcohol abuse Methamphetamine abuse Bulla of lung GERD (gastroesophageal reflux disease) Home Medications ???Medication ???Instructions ???Recorded ???Last Taken ???Type NK 08/03/24 Unknown History albuterol sulfate 90 mcg/actuation 2 inh inhalation Q6H PRN shortness 09/07/24 Unknown Rx breath activated powder inhaler of breath or wheezing #1 ea prednisone 20 mg tablet 20 mg PO DAILY 5 days #5 tabs 09/07/24 Unknown Rx Allergy/AdvReac Type Severity Reaction Status Date / Time No Known Allergies Allergy Verified 09/07/24 11:39 Family History Father Alcoholism CAD (coronary artery disease) Heart disease Hypertension Mother Alcoholism Seizures Surgical History History of ankle surgery Social History housing: homeless Smoking Status: Never smoker Smokeless tobacco user: chewing tobacco how long ago did patient quit smoking: Notes no cig tob use, prior chew only but no current, ongoing cannabis use. alcohol intake: current details: 5-6 beers daily, occasionally whiskey. substance use type: marijuana, opiates and methamphetamine EXAM Physical Exam Const Vital Signs: 09/07/24 11:39 09/07/24 11:41 09/07/24 11:41 Temperature 97.8 F 98.4 F Temperature Source Temporal Oral Pulse Rate 55 L 74 Respiratory Rate 24 H 18 Respiratory Effort Short of Breath Respiratory Depth Shallow Respiratory Pattern Normal Blood Pressure 175/135 H 141/106 H Blood Pressure Mean 148 117 Pulse Ox 90 98 Oxygen Delivery Method Room Air Room Air Room Air 09/07/24 11:51 09/07/24 12:08 09/07/24 12:14 Temperature Temperature Source Pulse Rate 75 75 Respiratory Rate 20 H 20 H Respiratory Effort Respiratory Depth Respiratory Pattern Blood Pressure Blood Pressure Mean Pulse Ox Oxygen Delivery Method Room Air 09/07/24 12:23 09/07/24 12:38 09/07/24 12:55 Temperature 98.6 F Temperature Source Pulse Rate 75 78 78 Respiratory Rate 16 16 16 Respiratory Effort Respiratory Depth Respiratory Pattern Blood Pressure 127/64 H 126/76 H Blood Pressure Mean 85 92 Pulse Ox 98 99 Oxygen Delivery Method Room Air MDM MDM MDM Narrative Medical decision making narrative: HISTORY OF PRESENT ILLNESS: 48-year-old male presents shortness of breath, cough for 1 week. Notes history of asthma. Notes he has not had his inhaler. Further states he has had 3 days of increased shortness of breath. States having asthma exacerbation. He notes he is not drinking or using drugs at this time. Denies chest pain. Denies vomiting. Denies fever. Does note a cough that is dry. Denies leg swelling. The patient denies recent surgery in the last 4 weeks or immobilization in the last 3 days, denies previous diagnosis of DVT or PE, hemoptysis, unilateral leg swelling or malignancy with treatment the last 6 months or palliative. No estrogen use noted. REVIEW OF SYSTEMS: Pertinent positives: Cough, shortness of breath Pertinent negatives: Cardiac leg swelling, syncope, chest pain PHYSICAL EXAM: Nursing triage notes reviewed, Vital signs reviewed Constitutional: please see mdm HENT: MMM Eyes: Pupils equal round and reactive to light, Extraocular muscles intact Neck: No stridor, no JVD, full neck ROM Lungs: Clear to auscultation, positive inspiratory and expiratory wheezing. Slight increased work of breathing, no conversational dyspnea, no accessory muscle use, no nasal flaring. No respiratory distress noted Heart: Regular rate and rhythm, No murmurs, No rubs and No gallops, 2+ distal pulses (radial, femoral, posterior tibial) in all extremities Abdomen: Soft, there is no tenderness, rigidity, rebound or guarding, no obvious peritoneal signs, no palpable pulsatile abdominal masses, no auscultated abdominal bruit : No CVAT Extremities: No edema Neuro: No new focal neurological deficits, cranial nerves II through XII intact (more content not included)... Normal [facility] Eosinophil percentageOrdered By: Julius Matthews on 09-07-2024 Eosinophils/100 WBC (Bld) 11.8 % High 0-5 [facility] Erythrocyte distribution wid th ratioOrdered By: Julius Matthews on 09-07-2024 Erythrocyte distribution width (RBC) [Ratio] 12.5 % 11.6-14.6 [facility] Erythrocyte distribution wid th standard deviationOrdered By: Julius Matthews on 09-07-2024 Erythrocyte distribution width (RBC) [Entitic vol] 43.4 fL 35.1-43.9 [facility] Estimated glomerular filtrat ion rate (GFR) AmericanOrdered By: Julius Matthews on 09-07-2024 Estimated GFR (MDRD) Amer 126 mL/min >60 [facility] Comment on above: GFR Calc Estimation of creatinine akbar aranceOrdered By: Julius Matthews on 09-07-2024 Estimated Creatinine Clearance Calc 91.48 ml/min [facility] Glomerular filtration rate ( GFR) estimationOrdered By: Julius Matthews on 09-07-2024 Estimated GFR (MDRD) Non-Af Amer 105 mL/min >60 [facility] Comment on above: Non- GFR Calc Glucose measurementOrdered B y: Julius Matthews on 09-07-2024 Glucose [Mass/Vol] 105 mg/dL 74-[address] [facility] Comment on above: Fasting Glucose resu lt from 100 to 125 mg/dL suggests IMPAIRED HOMEOSTASIS per A.D.A. criteria. Hematocrit Auto (Bld) [Volum e fraction]Ordered By: Julius Matthews on 09-07-2024 Hematocrit (Bld) [Volume fraction] 41.1 % 40-54 [facility] Hemoglobin measurementOrdere d By: Julius Matthews on 09-07-2024 Hemoglobin (Bld) [Mass/Vol] 13.8 g/dL 13.0-16.5 [facility] Immature granulocytes/100 WB C Auto (Bld)Ordered By: Julius Matthews on 09-07-2024 Immature granulocytes/100 WBC (Bld) 0.400 % 0.0-0.9 [facility] Comment on above: IG% - Immature Granu locytes (promyelocytes, myelocytes and metamyelocytes) > 1% indicates that a LEFT SHIFT is Present. Influenza virus A and B and SARS-CoV-2 (COVID-19) and Respiratory syncytial virus RNAOrdered By: Julius Matthews on 09-07-2024 SARS-CoV-2 (COVID-19) RNA WES+probe Ql (Unsp spec) [facility] L501.4020on 09-07-2024 TROPONIN-I HS 6 pg/mL Normal 3.0-78.0 [facility] Comment on above: Order Comment: 'TROP ' Serial specimen #1, #2 or #3: 1 Result Comment: Nahomi aparicio Note: New Test Units and Gender Specific Reference Ranges. For more information see Policy Stat Procedure [place] High Sensitivity Troponin (TNIH) and attachments. Performed By: #### L 9000.0800 #### [facility] [address] [place], [place], [address] Lymphocytes Auto (Unsp spec) [#/Vol]Ordered By: Julius Matthews on 09-07-2024 Lymphocytes (Bld) [#/Vol] 1.14 10*3/uL 0.83-4.51 [facility] Lymphocytes/100 WBC Auto (Un sp spec)Ordered By: Julius Matthews on 09-07-2024 Lymphocytes/100 WBC (Bld) 21.1 % 19-41 [facility] M100.678on 09-07-2024 M100.678 Pending SARS-CoV-2 (COVID 19) Negative INFLUENZA A Negative INFLUENZA B Negative RSV PCR Negative Normal [facility] Comment on above: Performed By: #### L 9000.0800 #### [facility] [place], [address] MCV (mean corpuscular volume ) determinationOrdered By: Julius Matthews on 09-07-2024 MCV (RBC) [Entitic vol] 94.7 fL High 80-94 [facility] Mean corpuscular hemoglobin (MCH) determinationOrdered By: Julius Matthews on 09-07-2024 MCH (RBC) [Entitic mass] 31.8 pg 27.0-32.0 [facility] Mean corpuscular hemoglobin concentration (MCHC) determinationOrdered By: Julius Matthews on 09-07-2024 MCHC (RBC) [Mass/Vol] 33.6 g/dL 32-36 [facility] Mean platelet volume determi nationOrdered By: Julius Matthews on 09-07-2024 Platelet mean volume (Bld) [Entitic vol] 9.3 fL 6.2-12.0 [facility] Monocyte percentageOrdered B y: Julius Matthews on 09-07-2024 Monocytes/100 WBC (Bld) 7.4 % 0-10 [facility] Neutrophil percentageOrdered By: Julius Matthews on 09-07-2024 Neutrophils/100 WBC (Bld) 58.4 % 47-70 [facility] Nucleated red blood cell per centageOrdered By: Julius Matthews on 09-07-2024 Nucleated RBC/100 WBC (Bld) [Ratio] 0 % 0-5 [facility] Platelet countOrdered By: Benitez Matthews on 09-07-2024 Platelets (Bld) [#/Vol] 327 10*3/uL 150-450 [facility] Potassium measurementOrdered By: Julius Matthews on 09-07-2024 Potassium [Moles/Vol] 3.8 mmol/L 3.5-5.1 [facility] RBC Auto (Bld) [#/Vol]Ordere d By: Julius Matthews on 09-07-2024 RBC (Bld) [#/Vol] 4.34 10*6/uL Low 4.6-6.2 [facility] Serum anion gap measurementO rdered By: Julius Matthews on 09-07-2024 Anion gap [Moles/Vol] 4 mmol/L Low 5-15 [facility] Serum or plasma calcium micah urement (mass/volume)Ordered By: Julius Matthews on 09-07-2024 Calcium [Mass/Vol] 9.1 mg/dL 8.5-10.[address] [facility] Serum or plasma creatinine m easurement (mass/volume)Ordered By: Julius Matthews on 09-07-2024 Creatinine [Mass/Vol] 0.83 mg/dL 0.70-1.30 [facility] Comment on above: The validity of the calculated GFR & GFRAA in patients over 70 years has not been determined. Clinical correlation is essential. Serum or plasma urea nitroge n measurement (mass/volume)Ordered By: Julius Matthews on 09-07-2024 Urea nitrogen [Mass/Vol] 18 mg/dL 7-18 [facility] Sodium levelOrdered By: Connie Matthews on 09-07-2024 Sodium [Moles/Vol] 142 mmol/L 136-[address] [facility] Troponin IOrdered By: Julius Matthews on 09-07-2024 Troponin I High Sensitivity 6 pg/mL 3.0-78.0 [facility] Comment on above: Please Note: New Rubi t Units and Gender Specific Reference Ranges. For more information see Policy Stat Procedure [place] High Sensitivity Troponin (TNIH) and attachments. White blood cell (WBC) count Ordered By: Julius Matthews on 09-07-2024 WBC (Bld) [#/Vol] 5.4 10*3/uL 4.4-11.[address] [facility] Emergency Department Summary on 08-04-2024 Emergency Department Summary [facility] Medical Records Department [address] [place] [address] Emergency Department Summary 08/04/24 MR#: [id number] Acct: [id number] Name: MICHAEL MCNEILL SANTOS Rep #: [id number] : 1975 48 From: Andrew Henning DO PCP: Care Physician,No Primary Status:DEP ER Location: ED HPI History of Present Illness Chief Complaint: Lower Extremity Injury Informant: patient Narrative Narrative: Patient is a 48-year-old male with past medical history of bipolar disorder hypertension anxiety and depression. He states he has been out walking and he states that he noticed he has developed blisters to his toes. He states it is now painful to walk secondary to this. He states that he had concern that he may have an infection or bony injury because of his pain and therefore comes in for evaluation [facility] Medical History Ankle fracture, left Bipolar disorder Depression Anxiety Past history of chewing tobacco use Asthma with COPD Anxiety and depression Inguinal hernia bilateral, non-recurrent Hypertension Stroke/cerebrovascular accident Alcohol abuse Methamphetamine abuse Bulla of lung GERD (gastroesophageal reflux disease) Home Medications ???Medication ???Instructions ???Recorded ???Last Taken ???Type NK 08/03/24 Unknown History Allergy/AdvReac Type Severity Reaction Status Date / Time No Known Allergies Allergy Verified 08/03/24 20:11 Family History Father Alcoholism CAD (coronary artery disease) Heart disease Hypertension Mother Alcoholism Seizures Surgical History History of ankle surgery Social History housing: homeless Smoking Status: Never smoker Smokeless tobacco user: chewing tobacco how long ago did patient quit smoking: Notes no cig tob use, prior chew only but no current, ongoing cannabis use. alcohol intake: current details: 5-6 beers daily, occasionally whiskey. substance use type: marijuana, opiates and methamphetamine ROS ROS ED Constitutional Constitutional ED: Denies chills or fever(s) ENT ENT ED: Denies sore throat Cardiovascular Cardiovascular: Denies chest pain Respiratory/Chest Respiratory/Chest: Denies cough or dyspnea Gastrointestinal Gastrointestinal: Denies abdominal pain, diarrhea, nausea or vomiting Genitourinary Genitourinary ED: Denies dysuria Musculoskeletal Musculoskeletal: Reports other Details: Positive foot pain Integumentary Reports other Details: Positive foot blisters ; Denies rash Neurologic Neurologic: Denies headache(s) Psychiatric Psychiatric: Reports anxiety and depression; Denies suicidal ideation or suicidal thoughts Hematologic/Lymphatic Hematologic/Lymphatic: Denies easy bleeding or easy bruising EXAM Physical Exam Const Vital Signs: 08/03/24 20:11 Temperature 98 F Temperature Source Oral Pulse Rate 94 Respiratory Rate 18 Blood Pressure 169/75 H Blood Pressure Mean 106 Pulse Ox 98 Oxygen Delivery Method Room Air Positive well nourished and well developed General Appearance ED: well developed HEENT HEENT Narrative: Normocephalic atraumatic Eyes PERRL and EOMs intact bilaterally General Eye ED: Negative for scleral icterus Neck supple Neck Narrative: No nuchal rigidity or meningeal signs Resp normal respiratory effort and clear to auscultation bilaterally Cardio regular rate and regular rhythm Extremity Extremity Narrative: Bilateral lower extremities are neurovascularly intact. Patient has blister lesions to the plantar aspect of his left and right fourth digit. There is no surrounding erythema or warmth no lymphangitic streaking no vesicular or pustule changes to suggest a secondary infection. No obvious bony deformity or joint effusion. No obvious signs of trauma Neuro oriented x3, CN's II-XII intact bilaterally and no sensory deficits noted Sensorium / Orientation: alert Motor Exam: strength 5/5 throughout Psych Psych Narrative: Patient has a flat affect Skin Skin Narrative: Soft tissue changes/blisters to the fourth digits of the bilateral feet as documented above MDM MDM MDM Narrative Medical decision making narrative: Patient presented to the ER hypertensive but has a past medical history of this. He reported bilateral foot/toe pain after walking for multiple hours. On exam he does have blisters to the fourth digits of his feet but there is no erythema or warmth or streaking or crepitance to suggest secondary infection such as cellulitis or abscess. He reported feeling a pricking sensation and therefore there was concern for potential for (more content not included)... Normal [facility] Foot min 3 Viewson 4 Foot min 3 Views [facility] Imaging Services [address] [place] [address] Foot min 3 Views MR#: [id number] Acct: [id number] Name: MICHAEL MCNEILLN Rep #: [id number] : 1975 M 48 From: Barber Grace MD PCP: Care Physician,No Primary Status: REG ER Study: Foot min 3 Views Date of Exam: 08/03/24 Exam# [id number] Ordering [place]: [place] [id number] INDICATION: pain / ? FB EXAMINATION/TECHNIQUE: X-RAY - LEFT XR Foot Min 3 Views COMPARISON: Left ankle x-rays from 07/04/2010. FINDINGS: SOFT TISSUES: Unremarkable. BONES/JOINTS: No fracture or dislocation. No significant degenerative changes. No erosive changes. Stable postsurgical changes in the distal fibula and distal tib-fib syndesmosis. RAD/Foot min 3 Views IMPRESSION: No evidence of a foreign body and no acute osseous abnormality. Electronically Signed: Barber Grace DO at 23:14 EDT , CC: Andrew Henning DO; No Primary Care Physician Director Of Food And Nutrition Services: Signed Normal [facility] Emergency Department Summary on 06-03-[address] [facility] Medical Records Department [address] [place] [address] Emergency Department Summary 06/03/24 MR#: [id number] Acct: [id number] Name: MICHAEL MCNEILL SANTOS Rep #: [id number] : 1975 48 From: Andrew Henning DO PCP: Care Physician,No Primary Status:DEP ER Location: ED HPI History of Present Illness Chief Complaint: Substance Abuse Informant: patient Narrative Narrative: Patient is a 48-year-old male with past medical history of bipolar disorder anxiety and alcohol abuse. He states that he has been sober for few months but over the last 4 days has been drinking 2 beers a day. He states that he was concerned that he may need admitted for detoxification as he knows that there is medical problems that can occur through alcohol withdrawal. He states his last drink was approximately 24 hours ago. He denies any homicidal or suicidal ideation. He reports feeling shaky and nauseous. He was unsure if this would warrant admission and therefore comes in for evaluation [facility] Medical History Ankle fracture, left Bipolar disorder Depression Anxiety Past history of chewing tobacco use Asthma with COPD Anxiety and depression Inguinal hernia bilateral, non-recurrent Hypertension Stroke/cerebrovascular accident Alcohol abuse Methamphetamine abuse Bulla of lung GERD (gastroesophageal reflux disease) Home Medications ???Medication ???Instructions ???Recorded ???Last Taken ???Type albuterol sulfate 90 mcg/actuation 1 - 2 puff inhalation Q4H PRN PRN 09/09/22 Unknown Rx aerosol inhaler (Ventolin HFA) Wheezing #1 device albuterol sulfate 90 mcg/actuation 2 puff inhalation Q6H PRN 12/02/22 12/23/22 Rx aerosol inhaler (ProAir HFA) shortness of breath or wheezing #8.5 grams albuterol sulfate 90 mcg/actuation 2 puff inhalation Q4H PRN PRN 06/02/24 Unknown Rx aerosol inhaler (Ventolin HFA) Wheezing ##1 sulfamethoxazole 800 1 tab PO BID #14 TABLETS 06/02/24 Unknown Rx mg-trimethoprim 160 mg tablet chlordiazepoxide HCl 25 mg capsule 25 mg PO 4X/DAY 5 days #20 caps 06/03/24 Unknown Rx ondansetron 4 mg disintegrating 4 mg PO TID PRN nausea and 09/02/24 Unknown Rx tablet vomiting #21 tabs Allergy/AdvReac Type Severity Reaction Status Date / Time No Known Allergies Allergy Verified 06/03/24 05:22 Family History Father Alcoholism CAD (coronary artery disease) Heart disease Hypertension Mother Alcoholism Seizures Surgical History History of ankle surgery Social History housing: homeless Smoking Status: Never smoker Smokeless tobacco user: chewing tobacco how long ago did patient quit smoking: Notes no cig tob use, prior chew only but no current, ongoing cannabis use. alcohol intake: current details: 5-6 beers daily, occasionally whiskey. substance use type: marijuana, opiates and methamphetamine ROS ROS ED Constitutional Constitutional ED: Denies chills or fever(s) Eyes Eyes: Denies blurry vision or change in vision ENT ENT ED: Denies sore throat Cardiovascular Cardiovascular: Reports palpitations; Denies chest pain Respiratory/Chest Respiratory/Chest: Denies cough or dyspnea Gastrointestinal Gastrointestinal: Reports nausea; Denies abdominal pain, diarrhea or vomiting Genitourinary Genitourinary ED: Denies dysuria Musculoskeletal Musculoskeletal: Denies myalgias Integumentary Denies rash Neurologic Neurologic: Reports other Details: Positive tremors ; Denies headache(s) Psychiatric Psychiatric: Reports anxiety; Denies suicidal ideation or suicidal thoughts Hematologic/Lymphatic Hematologic/Lymphatic: Denies easy bleeding or easy bruising EXAM Physical Exam Const Vital Signs: 06/03/24 05:18 Temperature 97.3 F L Temperature Source Oral Pulse Rate 69 Respiratory Rate 16 Blood Pressure 135/86 H Blood Pressure Mean 102 Pulse Ox 99 Oxygen Delivery Method Room Air Positive well nourished and well developed General Appearance ED: well developed; Negative for pallor HEENT Reports moist mucous membranes HEENT Narrative: No tongue or lip swelling no oral lesions no airway edema or compromise No tongue or cheek biting to suggest seizure Eyes PERRL and EOMs intact bilaterally General Eye ED: Negative for scleral icterus Neck supple Resp normal respiratory effort and clear to auscultation bilaterally Cardio regular rate and regular rhythm GI normal to inspection, nondistended, normoactive bowel sounds, non-tender, non-distended and no masses GI Narrative: No voluntary guarding or rigidity or pulsatile mass (more content not included)... Normal [facility] Emergency Department Summary on 06-02-[address] [facility] Medical Records Department [address] [place] [address] Emergency Department Summary 06/02/24 MR#: [id number] Acct: [id number] Name: MICHAEL MCNEILL SANTOS Rep #: [id number] : 1975 48 From: Maximilian Bernstein DO PCP: Care Physician,No Primary Status:DEP ER Location: ED HPI History of Present Illness Chief Complaint: Rash Informant: patient Narrative Narrative: 48-year-old male presenting to the emergency room with bilateral arm rash. Patient states that about 3 days ago he awoke in [place] [facility] a homeless [facility] and he had itchy bumps over the posterior aspect of the bilateral forearms. He does not notice it anywhere else. He states the itching is gone away but the rash persists. He thinks that it could be sun related as he states the sun felt really different like none he is ever felt. He denies any fevers. No new exposures. He denies any pus draining from the lesions. No fevers chills sweats. He denies any IV drug use currently. [facility] Medical History Ankle fracture, left Bipolar disorder Depression Anxiety Past history of chewing tobacco use Asthma with COPD Anxiety and depression Inguinal hernia bilateral, non-recurrent Hypertension Stroke/cerebrovascular accident Alcohol abuse Methamphetamine abuse Bulla of lung GERD (gastroesophageal reflux disease) Home Medications ???Medication ???Instructions ???Recorded ???Last Taken ???Type albuterol sulfate 90 mcg/actuation 1 - 2 puff inhalation Q4H PRN PRN 09/09/22 Unknown Rx aerosol inhaler (Ventolin HFA) Wheezing #1 device albuterol sulfate 90 mcg/actuation 2 puff inhalation Q6H PRN 12/02/22 12/23/22 Rx aerosol inhaler (ProAir HFA) shortness of breath or wheezing #8.5 grams multivitamin (Daily Multi-Vitamin 1 tab PO DAILY #30 tabs 10/31/23 Unknown Rx tablet) Allergy/AdvReac Type Severity Reaction Status Date / Time No Known Allergies Allergy Verified 06/02/24 09:57 Family History Father Alcoholism CAD (coronary artery disease) Heart disease Hypertension Mother Alcoholism Seizures Surgical History History of ankle surgery Social History housing: homeless Smoking Status: Never smoker Smokeless tobacco user: chewing tobacco how long ago did patient quit smoking: Notes no cig tob use, prior chew only but no current, ongoing cannabis use. alcohol intake: current details: 5-6 beers daily, occasionally whiskey. substance use type: marijuana, opiates and methamphetamine ROS ROS ED Constitutional Constitutional ED: Denies chills, fever(s), subjective, sweats or weight loss Eyes Eyes: Denies change in vision or diplopia ENT ENT ED: Denies ear pain, rhinorrhea or sore throat Cardiovascular Cardiovascular: Denies chest pain, orthopnea, palpitations or racing heartbeat Respiratory/Chest Respiratory/Chest: Denies cough, dyspnea or orthopnea Gastrointestinal Gastrointestinal: Denies abdominal pain, diarrhea, nausea or vomiting Genitourinary Genitourinary ED: Denies dysuria, hematuria or urinary frequency Musculoskeletal Musculoskeletal: Denies arthralgias, back pain, myalgias or neck pain Integumentary Reports rash; Denies abscess Neurologic Neurologic: Denies headache(s) or weakness Psychiatric Psychiatric: Denies anxiety, depression, suicidal ideation or suicidal thoughts Endocrine Endocrinology: Denies polydipsia, polyphagia or polyuria Allergic/Immunologic Allergic/Immunologic ED: Denies mouth swelling, tongue swelling or urticaria EXAM Physical Exam Const Vital Signs: 06/02/24 09:57 Temperature 97.0 F L Temperature Source Temporal Pulse Rate 95 Respiratory Rate 16 Blood Pressure 138/92 H Blood Pressure Mean 107 Pulse Ox 95 Oxygen Delivery Method Room Air Positive well nourished and well developed General Appearance ED: well developed HEENT Reports normocephalic, head/scalp atraumatic and moist mucous membranes Eyes PERRL and EOMs intact bilaterally Neck no lymphadenopathy, supple and no JVD Resp normal respiratory effort and clear to auscultation bilaterally Cardio regular rate, regular rhythm and no murmurs GI normal to inspection, nondistended, normoactive bowel sounds and non-tender Palpation: soft Back/Spine no CVA tenderness and normal ROM Extremity Extremity Narrative: See skin exam General Extremety ED: Negative for edema or tenderness General Extremity: Negative for edema Neuro oriented x3 and CN's II-XII intact bilaterally Sensorium / Orientation: alert Motor Exam: strength 5/5 throughout Psych mental status grossly normal (more content not included)... Normal [facility] Absolute lymphocyte countOrd ered By: Taelacey Haroo on 10-29-2023 Lymphocytes Auto (Unsp spec) [#/Vol] 1.38 10*3/uL 0.83-4.51 [facility] Automated lymphocyte count a s percentage of total leukocytesOrdered By: Taelacey Haroo on 10-29-2023 Lymphocytes/100 WBC Auto (Unsp spec) 14.6 % 19-41 [facility] Basophil percentageOrdered B y: Alisha White on 10-29-2023 Basophil percentage 4.9 mg/dL 2.5-4.9 [facility] Basophil percentageOrdered B y: Taelacey Walsh on 10-29-2023 Basophils/100 WBC (Bld) 0.6 % 0-1 [facility] Bilirubin [Mass/Vol] 0.60 mg/dL 0.20-1.00 [facility] Comment on above: For patients on eltr ombopag therapy, use of Dimension [place] TBIL is not recommended. Chloride [Moles/Vol] 100 mmol/L 98-107 [facility] Eosinophils/100 WBC (Bld) 1.6 % 0-5 [facility] Glucose [Mass/Vol] 82 mg/dL 74-[address] [facility] Hemoglobin (Bld) [Mass/Vol] 14.5 g/dL 13.0-16.5 [facility] Monocytes/100 WBC (Bld) 4.0 % 0-10 [facility] Neutrophils (Bld) [#/Vol] 7.4 10*3/uL 2.0-7.7 [facility] Neutrophils/100 WBC (Bld) 78.9 % 47-70 [facility] Potassium [Moles/Vol] 4.0 mmol/L 3.5-5.1 [facility] Protein [Mass/Vol] 8.3 g/dL 6.4-8.[address] [facility] Sodium [Moles/Vol] 133 mmol/L 136-[address] [facility] WBC (Bld) [#/Vol] 9.4 10*3/uL 4.4-11.[address] [facility] Determination of erythrocyte mean corpuscular volume (MCV)Ordered By: Tae Walsh on 10-29-2023 MCV (RBC) [Entitic vol] 93.4 fL 80-94 [facility] Erythrocyte distribution wid th ratioOrdered By: [facility] on 10-29-2023 Erythrocyte distribution width (RBC) [Ratio] 12.4 % 11.6-14.6 [facility] Erythrocyte distribution wid th standard deviationOrdered By: [facility] on 10-29-2023 Erythrocyte distribution width (RBC) [Entitic vol] 43.0 fL 35.1-43.9 [facility] Hematocrit Auto (Bld) [Volum e fraction]Ordered By: [facility] on 10-29-2023 Hematocrit (Bld) [Volume fraction] 44.1 % 40-54 [facility] Immature granulocytes/100 WB C Auto (Bld)Ordered By: [facility] on 10-29-2023 Immature granulocytes/100 WBC (Bld) 0.300 % 0.0-0.9 [facility] Comment on above: IG% - Immature Granu locytes (promyelocytes, myelocytes and metamyelocytes) > 1% indicates that a LEFT SHIFT is Present. Laboratory - Chemistry and C hemistry - challengeOrdered By: [facility] on 10-29-2023 Albumin/Globulin [Mass ratio] 1.0 {ratio} 0.9-2.4 [facility] ALP [Catalytic activity/Vol] 59 U/L 45-117 [facility] ALT [Catalytic activity/Vol] 37 U/L 16-61 [facility] CO2 [Moles/Vol] 27.0 mmol/L 21.0-32.0 [facility] Globulin (S) [Mass/Vol] 4.1 g/dL 2.2-4.2 [facility] Urea nitrogen/Creatinine [Mass ratio] 21.0 mg/mg 10-20 [facility] Laboratory - Chemistry and C hemistry - challengeOrdered By: Alisha Mcintyre on 10-29-2023 Magnesium [Mass/Vol] 2.3 mg/dL 1.6-2.6 [facility] Laboratory - Drug toxicology Ordered By: Tae Walsh on 10-29-2023 Amphetamines Ql (U) Positive <1000 ng/mL [facility] Benzodiazepines Ql (U) Negative < 200 ng/mL [facility] Cannabinoids Screen Ql (U) Negative < 50 ng/mL [facility] Cocaine Ql (U) Negative < 300 ng/mL [facility] Opiates Ql (U) Negative < 300 ng/mL [facility] Laboratory - Hematology and Cell countsOrdered By: Tae Walsh on 10-29-2023 MCH (RBC) [Entitic mass] 30.7 pg 27.0-32.0 [facility] MCHC (RBC) [Mass/Vol] 32.9 g/dL 32-36 [facility] Nucleated RBC/100 WBC (Bld) [Ratio] 0 % 0-5 [facility] Platelets (Bld) [#/Vol] 338 10*3/uL 150-450 [facility] No Panel InformationOrdered By: Tae Walsh on 10-29-2023 MDMA (Ecstasy) Screen Positive < 500 ng/mL [facility] Urine Barbiturates Screen Negative < 200 ng/mL [facility] Urine Drug Screen Comment [facility] Comment on above: CONFIRMATORY TESTING FOR ALL POSITIVE URINE DRUG SCREENRESULTS WILL ONLY BE SENT OUT UPON PHYSICIAN ORDER. VISTA Urine Drug Screen methods provide only preliminaryanalytical test results. A more specific alternate chemicalmethod must be used in order to obtain a confirmedanalytical result. Gas chromatography/mass spectrometery(GC/MS) is the preferred confirmatory method. Clinicalconsideration and professional judgement should be appliedto any drug of abuse test result, particularly whenpreliminary positive results are used. URINE TCA TESTING MUST BE ORDERED SEPARATELY. USE TESTMNEMONIC: [facility] Urine Methadone Screen Negative < 300 ng/mL [facility] Estimated Creatinine Clearance Calc 92.52 ml/min [facility] Estimated GFR (MDRD) Amer 123 mL/min >60 [facility] Comment on above: GFR Calc Estimated GFR (MDRD) Non-Af Amer 102 mL/min >60 [facility] Comment on above: Non- GFR Calc Ethyl Alcohol Level 5.0 mg/dL [facility] Comment on above: The serum:whole bloo d ethanol ratio is approximately 1.14and varies slightly with hematocrit. Medical Alcohol reference interval and critical value innon-tolerant individuals; 50 - 100 Impairment 100 Intoxication 100 - 250 Severe Poisoning 250 - 400 Deep/possible fatal coma Platelet mean volume [place]-Ec ker (Bld) [Entitic vol]Ordered By: Tae Walsh on 10-29-2023 Platelet mean volume (Bld) [Entitic vol] 9.2 fL 6.2-12.0 [facility] RBC Auto (Bld) [#/Vol]Ordere d By: Tae Walsh on 10-29-2023 RBC (Bld) [#/Vol] 4.72 10*6/uL 4.6-6.2 [facility] Serum or plasma calcium micah urement (mass/volume)Ordered By: Tae Walsh on 10-29-2023 Calcium [Mass/Vol] 9.8 mg/dL 8.5-10.[address] [facility] Serum or plasma creatinine m easurement (mass/volume)Ordered By: Tae Walsh on 10-29-2023 Creatinine [Mass/Vol] 0.86 mg/dL 0.70-1.30 [facility] Comment on above: The validity of the calculated GFR & GFRAA in patients over 70 years has not been determined. Clinical correlation is essential. Serum or plasma urea nitroge n measurement (mass/volume)Ordered By: Tae Walsh on 10-29-2023 Urea nitrogen [Mass/Vol] 18 mg/dL 7-18 [facility] Thin prep Papanicolaou smear with manual screeningOrdered By: Tae Walsh on 10-29-2023 Thin prep Papanicolaou smear with manual screening 4.2 g/dL 3.2-5.0 [facility] Thin prep Papanicolaou smear with manual screening 31 U/L 15-37 [facility] Thin prep Papanicolaou smear with manual screening 6 5-15 [facility] Urine phencyclidine (PCP) de tectionOrdered By: Tae Walsh on 10-29-2023 Phencyclidine Ql (U) Negative < 25 ng/mL [facility] CNCOon 09-06-2023 CNCO Letter Text Normal [facility] CNOVon 08-28-2023 CNOV Office Visit (GENSWS ) MICHAEL MCNEILL ([id number]) 1975 M Date Time Provider Department 08/28/23 10:45 AM LINDA JOSE During your visit today, we recorded the following information about you: Temperature Pulse Blood pressure Weight 97.9 degrees 109/minute 130/84 63.9 kg Height 1.702 m Katherine Biggs RN 08/28/2023 10:43 AM Signed [...] last Mammogram screening? N/A Last Colonoscopy: NONE FRANCESCA Duran, Linda Patel MD 08/28/2023 10:53 AM Signed Bowel Preparation Instructions for: Golytely, Nulytely, Trilyte [...] If you do not have a responsible food mobile driver (family member or friend) with you [...] Nulytely, Trilyte or Colyte (polyethylene glycol 3350 a (more content not included)... Normal [facility] [place] 08-28-2023 [facility] Telephone (GENSWS) MICHAEL MCNEILL ([id number]) 1975 M [facility] Date Time Provider Department 08/28/23 LINDA JOSE During your visit today, we recorded the following information about you: Vida Perez 08/28/2023 11:16 AM Signed 09/05/2023 COLON MATTHEWS + 10/03/2023 [facility] Vida Christianson 09/13/2023 9:07 AM Signed Received call from [facility] in regards to patient not being able to be contacted. Number listed for patient rings twice then shows busy. Emergency contact listed is inactive. Will keep trying. Patient scheduled for hernia surgery with Dr. Jose in [place] on 10/03/2023. Colonoscopy was cancelled earlier this month. Vida Perez Please advise Supervisor Wet End Vida Perez 09/19/2023 4:15 PM Signed Office and [facility] unable to reach patient to go over surgery information and schedule PAT prior to surgery as patients number and emergency contacts number has been disconnected Surgery message sent to [place] to cancel surgery as of now Vida Perez Supervisor Wet End Allergies As of Date: 08/28/2023 Noted Allergy Reaction SEASONAL ALLERGIES 08/26/2023 16 - Unknown Date Reviewed: 08/28/2023 Reviewed by: Katherine Biggs, FRANCESCA - Fully Assessed Reason for Visit: 09/05/2023 COLON MTZ + 10/03/2023 RIH MTZ [Other] Prescriptions as of 08/06/2024 - OLANZapine (ZYPREXA) 5 mg tablet Take 5 mg by mouth daily at bedtime. Problem List As Of Date: 08/28/2023 (None) Encounter Status:Closed by BRODERICK JEAN BAPTISTE on 08/06/24 [facility] CNOVon 08-26-2023 CNOV Office Visit (UCWSTR ) MICHAEL MCNEILL ([id number]) 1975 M Date Time Provider Department 08/26/23 9:45 AM HENRI HURLEY [facility] During your visit today, we recorded the following information about you: Temperature Pulse Respiration Blood pressure 98.3 degrees 80/minute 22/minute 133/82 Weight 68 kg Henri Hurley APRN.ACADEMIC ADVISER 08/26/2023 11:44 AM Signed Subjective HPI HPI Michael Boland Osito is a 47 year old male who [...] to Er. - CONSULT TO GENERAL SURGERY Henri Hurley APRN.ACADEMIC ADVISER Referring Provider: SELF [[id number]] Allergies As of Date: 08/26/2023 Noted Allergy Reaction SEASONAL ALLERGIES 08/26/2023 16 - Unknown Date Reviewed: 08/26/2023 Reviewed by: Henri Hurley APRN.ACADEMIC ADVISER - Fully Assessed Reason for Visit: Mass [64] Cmt: Right side above testicle for some years pain on and off Primary Visit Diagnosis:Unilateral inguinal hernia without obstruction or gangrene, recurrence not specified [K40.90] Order(s):CONSULT TO GENERAL SURGERY [9011] Order #: [id number]: 1 FUTURE Prescriptions as of 08/26/2023 - OLANZapine (ZYPREXA) 5 mg tablet Take 5 mg by mouth daily at bedtime. Problem List As Of Date: 08/26/2023 (None) Encounter Status:Closed by HENRI HURLEY on 08/26/[address] [facility] Absolute lymphocyte countOrd ered By: Graham Messina on 04-26-2023 Lymphocytes Auto (Unsp spec) [#/Vol] 1.11 10*3/uL 0.83-4.51 [facility] Basophil percentageOrdered B y: Alisha White on 04-26-2023 Basophil percentage 3.7 mg/dL 2.5-4.9 [facility] Basophil percentageOrdered B y: Graham Messina on 04-26-2023 Basophils/100 WBC (Bld) 0.8 % 0-1 [facility] Bilirubin [Mass/Vol] 0.40 mg/dL 0.20-1.00 [facility] Comment on above: For patients on eltr ombopag therapy, use of Dimension [place] TBIL is not recommended. Chloride [Moles/Vol] 107 mmol/L 98-107 [facility] Eosinophils/100 WBC (Bld) 14.7 % 0-5 [facility] Glucose [Mass/Vol] 98 mg/dL 74-[address] [facility] Neutrophils (Bld) [#/Vol] 2.8 10*3/uL 2.0-7.7 [facility] Neutrophils/100 WBC (Bld) 56.3 % 47-70 [facility] Potassium [Moles/Vol] 4.0 mmol/L 3.5-5.1 [facility] Protein [Mass/Vol] 7.4 g/dL 6.4-8.[address] [facility] Sodium [Moles/Vol] 139 mmol/L 136-[address] [facility] WBC (Bld) [#/Vol] 5.0 10*3/uL 4.4-11.[address] [facility] Blood erythrocytes count (nu mber/volume)Ordered By: Graham Messina on 04-26-2023 RBC (Bld) [#/Vol] 4.12 10*6/uL 4.6-6.2 [facility] Blood hemoglobin measurement (mass/volume)Ordered By: Graham Messina on 04-26-2023 Hemoglobin (Bld) [Mass/Vol] 12.8 g/dL 13.0-16.5 [facility] Blood lymphocytes/100 leukoc ytesOrdered By: Graham Messina on 04-26-2023 Lymphocytes/100 WBC (Bld) 22.0 % 19-41 [facility] Blood monocytes/100 leukocyt esOrdered By: Graham Messina on 04-26-2023 Monocytes/100 WBC (Bld) 6.0 % 0-10 [facility] Blood platelet mean volumeOr dered By: Graham Messina on 04-26-2023 Platelet mean volume (Bld) [Entitic vol] 8.7 fL 6.2-12.0 [facility] Determination of erythrocyte mean corpuscular volume (MCV)Ordered By: Graham Messina on 04-26-2023 MCV (RBC) [Entitic vol] 94.4 fL 80-94 [facility] HIV 1 and HIV-2 antibody ass ay with HIV-1 p24 antigen detectionOrdered By: Alisha Mcintyre on 04-26-2023 HIV 1+2 Ab+HIV1 p24 Ag IA Ql Non-Reactive Nonreactive [facility] Hematocrit Auto (Bld) [Volum e fraction]Ordered By: Graham Messina on 04-26-2023 Hematocrit (Bld) [Volume fraction] 38.9 % 40-54 [facility] Laboratory - Chemistry and C hemistry - challengeOrdered By: rGaham Messina on 04-26-2023 ALP [Catalytic activity/Vol] 51 U/L 45-117 [facility] ALT [Catalytic activity/Vol] 43 U/L 16-61 [facility] CO2 [Moles/Vol] 29.0 mmol/L 21.0-32.0 [facility] Globulin (S) [Mass/Vol] 3.9 g/dL 2.2-4.2 [facility] Urea nitrogen/Creatinine [Mass ratio] 23.9 mg/mg 10-20 [facility] Laboratory - Chemistry and C hemistry - challengeOrdered By: Alisha Mcintyre on 04-26-2023 Magnesium [Mass/Vol] 2.0 mg/dL 1.6-2.6 [facility] Laboratory - Drug toxicology Ordered By: Graham Messina on 04-26-2023 Amphetamines Ql (U) Positive <1000 ng/mL [facility] Benzodiazepines Ql (U) Negative < 200 ng/mL [facility] Cannabinoids Screen Ql (U) Negative < 50 ng/mL [facility] Cocaine Ql (U) Negative < 300 ng/mL [facility] Opiates Ql (U) Negative < 300 ng/mL [facility] Laboratory - Hematology and Cell countsOrdered By: Graham Messina on 04-26-2023 Erythrocyte distribution width (RBC) [Entitic vol] 43.1 fL 35.1-43.9 [facility] Erythrocyte distribution width (RBC) [Ratio] 12.5 % 11.6-14.6 [facility] Immature granulocytes/100 WBC (Bld) 0.200 % 0.0-0.9 [facility] Comment on above: IG% - Immature Granu locytes (promyelocytes, myelocytes and metamyelocytes) > 1% indicates that a LEFT SHIFT is Present. MCH (RBC) [Entitic mass] 31.1 pg 27.0-32.0 [facility] Nucleated RBC/100 WBC (Bld) [Ratio] 0 % 0-5 [facility] MCHC Auto (RBC) [Mass/Vol]Or dered By: Graham Messina on 04-26-2023 MCHC (RBC) [Mass/Vol] 32.9 g/dL 32-36 [facility] No Panel InformationOrdered By: Graham Messina on 04-26-2023 MDMA (Ecstasy) Screen Positive < 500 ng/mL [facility] Urine Barbiturates Screen Negative < 200 ng/mL [facility] Urine Drug Screen Comment [facility] Comment on above: CONFIRMATORY TESTING FOR ALL POSITIVE URINE DRUG SCREENRESULTS WILL ONLY BE SENT OUT UPON PHYSICIAN ORDER. VISTA Urine Drug Screen methods provide only preliminaryanalytical test results. A more specific alternate chemicalmethod must be used in order to obtain a confirmedanalytical result. Gas chromatography/mass spectrometery(GC/MS) is the preferred confirmatory method. Clinicalconsideration and professional judgement should be appliedto any drug of abuse test result, particularly whenpreliminary positive results are used. URINE TCA TESTING MUST BE ORDERED SEPARATELY. USE TESTMNEMONIC: [facility] Urine Methadone Screen Negative < 300 ng/mL [facility] Estimated Creatinine Clearance Calc 84.16 ml/min [facility] Estimated GFR (MDRD) Amer 119 mL/min >60 [facility] Comment on above: GFR Calc Estimated GFR (MDRD) Non-Af Amer 99 mL/min >60 [facility] Comment on above: Non- GFR Calc Ethyl Alcohol Level < 3.0 mg/dL [facility] Comment on above: The serum:whole bloo d ethanol ratio is approximately 1.14and varies slightly with hematocrit. Medical Alcohol reference interval and critical value innon-tolerant individuals; 50 - 100 Impairment 100 Intoxication 100 - 250 Severe Poisoning 250 - 400 Deep/possible fatal coma No Panel InformationOrdered By: Alisha Mcintyre on 04-26-2023 Hepatitis B Surface Antigen Non-Reactive Nonreactive [facility] Hepatitis C Antibody Preliminary Reactive Nonre active [facility] Comment on above: Critical Result(s) C alled at: 22:54:59 04/26/2023 by: Kia Perry to Madalyn. Results read back by same. Non Reactive: < 0.8 Equivocal: >/= 0.8 to < 1.0 Reactive: >/= 1.0The [facility] recommends that a reactive/equivocal HCV antibody result be followed up by the HCV Nucleic Acid Amplificationtest (607550) Miscellaneous Test See comment [facility] Comment on above: TEST RESULT LIMITSHC V RNA Diagnosis, WES HCV RNA, Quantitation 8460 IU/mL HCV RNA detected HCV RNA viral loads >/= 25 IU/mL indicate current HCV infection. HCV RNA, log10 3.927 log10 IU/mLTest Information: The quantitative range of this assay is 15 IU/mL to 100 million IU/mL. TESTING PERFORMED AT [facility]. ORIGINAL REPORT ON FILE IN LAB CONTAINS ADDITIONAL TEST SITE INFORMATION. Platelets bldOrdered By: Valentine Messina on 04-26-2023 Platelets (Bld) [#/Vol] 273 10*3/uL 150-450 [facility] Serum Treponema species anti body detectionOrdered By: Alisha Mcintyre on 04-26-2023 Treponema sp Ab Ql (S) Non-Reactive [facility] Serum hepatitis B virus [place] antibody IgG detectionOrdered By: Alisha Mcintyre on 04-26-2023 HBV surface IgG Ql (S) Reactive [facility] Comment on above: Non Reactive: Incons istent with immunity less than <10 mIU/mL Reactive: Consistent with immunity greater than or equal to 10 mIU/mL Serum or plasma albumin micah urement (mass/volume)Ordered By: Graham Messina on 04-26-2023 Albumin [Mass/Vol] 3.5 g/dL 3.2-5.[address] [facility] Serum or plasma albumin/glob ulin mass ratioOrdered By: Graham Messina on 04-26-2023 Albumin/Globulin [Mass ratio] 0.9 {ratio} 0.9-2.4 [facility] Serum or plasma calcium micah urement (mass/volume)Ordered By: Graham Messina on 04-26-2023 Calcium [Mass/Vol] 8.9 mg/dL 8.5-10.[address] [facility] Serum or plasma creatinine m easurement (mass/volume)Ordered By: Graham Messina on 04-26-2023 Creatinine [Mass/Vol] 0.88 mg/dL 0.70-1.30 [facility] Comment on above: The validity of the calculated GFR & GFRAA in patients over 70 years has not been determined. Clinical correlation is essential. Serum or plasma urea nitroge n measurement (mass/volume)Ordered By: Graham Messina on 04-26-2023 Urea nitrogen [Mass/Vol] 21 mg/dL 7-18 [facility] Thin prep Papanicolaou smear with manual screeningOrdered By: Graham Messina on 04-26-2023 Thin prep Papanicolaou smear with manual screening 26 U/L 15-37 [facility] Thin prep Papanicolaou smear with manual screening 3 5-15 [facility] Urine phencyclidine (PCP) de tectionOrdered By: Graham Messina on 04-26-2023 Phencyclidine Ql (U) Negative < 25 ng/mL [facility] Absolute lymphocyte countOrd ered By: Dr. De Anda on 12-23-2022 Lymphocytes Auto (Unsp spec) [#/Vol] 1.21 10*3/uL 0.83-4.51 [facility] Basophil percentageOrdered B y: Dr. Mcintyre on 12-23-2022 Basophil percentage 3.5 mg/dL 2.5-4.9 [facility] Basophil percentageOrdered B y: Dr. De Anda on 12-23-2022 Basophils/100 WBC (Bld) 0.7 % 0-1 [facility] Bilirubin [Mass/Vol] 0.30 mg/dL 0.20-1.00 [facility] Comment on above: For patients on eltr ombopag therapy, use of Dim[place] TBIL is not recommended. Chloride [Moles/Vol] 105 mmol/L 98-107 [facility] Eosinophils/100 WBC (Bld) 7.0 % 0-5 [facility] Glucose [Mass/Vol] 114 mg/dL 74-[address] [facility] Comment on above: Fasting Glucose resu lt from 100 to 125 mg/dL suggests IMPAIRED HOMEOSTASIS per A.D.A. criteria. Neutrophils (Bld) [#/Vol] 4.8 10*3/uL 2.0-7.7 [facility] Neutrophils/100 WBC (Bld) 69.3 % 47-70 [facility] Potassium [Moles/Vol] 3.5 mmol/L 3.5-5.1 [facility] Protein [Mass/Vol] 7.4 g/dL 6.4-8.[address] [facility] Sodium [Moles/Vol] 139 mmol/L 136-[address] [facility] WBC (Bld) [#/Vol] 7.0 10*3/uL 4.4-11.[address] [facility] Blood erythrocytes count (nu mber/volume)Ordered By: Dr. De Anda on 12-23-2022 RBC (Bld) [#/Vol] 4.09 10*6/uL 4.6-6.2 [facility] Blood hemoglobin measurement (mass/volume)Ordered By: Dr. De Anda on 12-23-2022 Hemoglobin (Bld) [Mass/Vol] 12.6 g/dL 13.0-16.5 [facility] Blood lymphocytes/100 leukoc ytesOrdered By: Dr. De Anda on 12-23-2022 Lymphocytes/100 WBC (Bld) 17.4 % 19-41 [facility] Blood monocytes/100 leukocyt esOrdered By: Dr. De Anda on 12-23-2022 Monocytes/100 WBC (Bld) 5.3 % 0-10 [facility] Blood platelet mean volumeOr dered By: Dr. De Anda on 12-23-2022 Platelet mean volume (Bld) [Entitic vol] 9.0 fL 6.2-12.0 [facility] Determination of erythrocyte mean corpuscular volume (MCV)Ordered By: Dr. De Anda on 12-23-2022 MCV (RBC) [Entitic vol] 92.2 fL 80-94 [facility] Hematocrit Auto (Bld) [Volum e fraction]Ordered By: Dr. De Anda on 12-23-2022 Hematocrit (Bld) [Volume fraction] 37.7 % 40-54 [facility] Iron measurement (mass/mass) Ordered By: Dr. Mcintyre on 12-23-2022 Iron (Unsp spec) [Mass/Mass] 57 ug/dL 65-175 [facility] Laboratory - Chemistry and C hemistry - challengeOrdered By: Dr. De Anda on 12-23-2022 ALP [Catalytic activity/Vol] 48 U/L 45-117 [facility] ALT [Catalytic activity/Vol] 67 U/L 16-61 [facility] CO2 [Moles/Vol] 25.0 mmol/L 21.0-32.0 [facility] Globulin (S) [Mass/Vol] 3.9 g/dL 2.2-4.2 [facility] Urea nitrogen/Creatinine [Mass ratio] 35.4 mg/mg 10-20 [facility] Laboratory - Chemistry and C hemistry - challengeOrdered By: Dr. Mcintyre on 12-23-2022 Cobalamin (Vitamin B12) [Mass/Vol] 589 pg/mL 211-911 [facility] Magnesium [Mass/Vol] 2.2 mg/dL 1.6-2.6 [facility] Laboratory - Drug toxicology Ordered By: Dr. De Anda on 12-23-2022 Amphetamines Ql (U) Positive <1000 ng/mL [facility] Benzodiazepines Ql (U) Negative < 200 ng/mL [facility] Cannabinoids Screen Ql (U) Negative < 50 ng/mL [facility] Cocaine Ql (U) Negative < 300 ng/mL [facility] Opiates Ql (U) Negative < 300 ng/mL [facility] Laboratory - Hematology and Cell countsOrdered By: Dr. De Anda on 12-23-2022 Erythrocyte distribution width (RBC) [Entitic vol] 42.5 fL 35.1-43.9 [facility] Erythrocyte distribution width (RBC) [Ratio] 12.6 % 11.6-14.6 [facility] Immature granulocytes/100 WBC (Bld) 0.300 % 0.0-0.9 [facility] Comment on above: IG% - Immature Granu locytes (promyelocytes, myelocytes and metamyelocytes) > 1% indicates that a LEFT SHIFT is Present. MCH (RBC) [Entitic mass] 30.8 pg 27.0-32.0 [facility] Nucleated RBC/100 WBC (Bld) [Ratio] 0 % 0-5 [facility] MCHC Auto (RBC) [Mass/Vol]Or dered By: Dr. De Anda on 12-23-2022 MCHC (RBC) [Mass/Vol] 33.4 g/dL 32-36 [facility] No Panel InformationOrdered By: Dr. De Anda on 12-23-2022 Estimated Creatinine Clearance Calc 93.74 ml/min [facility] Estimated GFR (MDRD) Amer 130 mL/min >60 [facility] Comment on above: GFR Calc Estimated GFR (MDRD) Non-Af Amer 107 mL/min >60 [facility] Comment on above: Non- GFR Calc Ethyl Alcohol Level 25.0 mg/dL [facility] Comment on above: The serum:whole bloo d ethanol ratio is approximately 1.14and varies slightly with hematocrit. Medical Alcohol reference interval and critical value innon-tolerant individuals; 50 - 100 Impairment 100 Intoxication 100 - 250 Severe Poisoning 250 - 400 Deep/possible fatal coma MDMA (Ecstasy) Screen Positive < 500 ng/mL [facility] Urine Barbiturates Screen Negative < 200 ng/mL [facility] Urine Drug Screen Comment [facility] Comment on above: CONFIRMATORY TESTING FOR ALL POSITIVE URINE DRUG SCREENRESULTS WILL ONLY BE SENT OUT UPON PHYSICIAN ORDER. VISTA Urine Drug Screen methods provide only preliminaryanalytical test results. A more specific alternate chemicalmethod must be used in order to obtain a confirmedanalytical result. Gas chromatography/mass spectrometery(GC/MS) is the preferred confirmatory method. Clinicalconsideration and professional judgement should be appliedto any drug of abuse test result, particularly whenpreliminary positive results are used. URINE TCA TESTING MUST BE ORDERED SEPARATELY. USE TESTMNEMONIC: [facility] Urine Methadone Screen Negative < 300 ng/mL [facility] No Panel InformationOrdered By: Dr. Mcintyre on 12-23-2022 Total Iron Binding Capacity 335 ug/dL 250-450 [facility] Platelets bldOrdered By: Dr. De Anda on 12-23-2022 Platelets (Bld) [#/Vol] 285 10*3/uL 150-450 [facility] Serum or plasma albumin micah urement (mass/volume)Ordered By: Dr. De Anda on 12-23-2022 Albumin [Mass/Vol] 3.5 g/dL 3.2-5.[address] [facility] Serum or plasma albumin/glob ulin mass ratioOrdered By: Dr. De Anda on 12-23-2022 Albumin/Globulin [Mass ratio] 0.9 {ratio} 0.9-2.4 [facility] Serum or plasma calcium micah urement (mass/volume)Ordered By: Dr. De Anda on 12-23-2022 Calcium [Mass/Vol] 8.8 mg/dL 8.5-10.[address] [facility] Serum or plasma creatinine m easurement (mass/volume)Ordered By: Dr. De Anda on 12-23-2022 Creatinine [Mass/Vol] 0.82 mg/dL 0.70-1.30 [facility] Comment on above: The validity of the calculated GFR & GFRAA in patients over 70 years has not been determined. Clinical correlation is essential. Serum or plasma ferritin luisito surement (mass/volume)Ordered By: Dr. Mcintyre on 12-23-2022 Ferritin [Mass/Vol] 27 ng/mL 26-388 [facility] Serum or plasma folate measu rement (mass/volume)Ordered By: Dr. Mcintyre on 12-23-2022 Folate [Mass/Vol] 16.10 ng/mL 3.1-55.[address] [facility] Serum or plasma iron saturat ion measurement (mass fraction)Ordered By: Dr. Mcintyre on 12-23-2022 Iron saturation [Mass fraction] 17.0 % 15.0-55.0 [facility] Serum or plasma urea nitroge n measurement (mass/volume)Ordered By: Dr. De Anda on 12-23-2022 Urea nitrogen [Mass/Vol] 29 mg/dL 7-18 [facility] Thin prep Papanicolaou smear with manual screeningOrdered By: Dr. De Anda on 12-23-2022 Thin prep Papanicolaou smear with manual screening 49 U/L 15-37 [facility] Thin prep Papanicolaou smear with manual screening 9 5-15 [facility] Urine phencyclidine (PCP) de tectionOrdered By: Dr. De Anda on 12-23-2022 Phencyclidine Ql (U) Negative < 25 ng/mL [facility] Absolute lymphocyte countOrd ered By: Dr. Nieves on 11-03-2022 Lymphocytes Auto (Unsp spec) [#/Vol] 1.20 10*3/uL 0.83-4.51 [facility] Basophil percentageOrdered B y: Dr. Nieves on 11-03-2022 Basophils/100 WBC (Bld) 0.7 % 0-1 [facility] Chloride [Moles/Vol] 107 mmol/L 98-107 [facility] Eosinophils/100 WBC (Bld) 10.8 % 0-5 [facility] Glucose [Mass/Vol] 152 mg/dL 74-[address] [facility] Comment on above: Fasting Glucose resu lt greater than or equal to 126 mg/dL suggests DIABETES MELLITUS per A.D.A. criteria. Neutrophils (Bld) [#/Vol] 3.5 10*3/uL 2.0-7.7 [facility] Neutrophils/100 WBC (Bld) 60.9 % 47-70 [facility] Potassium [Moles/Vol] 3.6 mmol/L 3.5-5.1 [facility] Sodium [Moles/Vol] 140 mmol/L 136-[address] [facility] WBC (Bld) [#/Vol] 5.7 10*3/uL 4.4-11.[address] [facility] Blood erythrocytes count (nu mber/volume)Ordered By: Dr. Nieves on 11-03-2022 RBC (Bld) [#/Vol] 3.80 10*6/uL 4.6-6.2 [facility] Blood hemoglobin measurement (mass/volume)Ordered By: Dr. Nieves on 11-03-2022 Hemoglobin (Bld) [Mass/Vol] 11.8 g/dL 13.0-16.5 [facility] Blood lymphocytes/100 leukoc ytesOrdered By: Dr. Nieves on 11-03-2022 Lymphocytes/100 WBC (Bld) 20.9 % 19-41 [facility] Blood monocytes/100 leukocyt esOrdered By: Dr. Nieves on 11-03-2022 Monocytes/100 WBC (Bld) 6.5 % 0-10 [facility] Blood platelet mean volumeOr dered By: Dr. Nieves on 11-03-2022 Platelet mean volume (Bld) [Entitic vol] 8.6 fL 6.2-12.0 [facility] Determination of erythrocyte mean corpuscular volume (MCV)Ordered By: Dr. Nieves on 11-03-2022 MCV (RBC) [Entitic vol] 93.2 fL 80-94 [facility] Hematocrit Auto (Bld) [Volum e fraction]Ordered By: Dr. Nieves on 11-03-2022 Hematocrit (Bld) [Volume fraction] 35.4 % 40-54 [facility] Laboratory - Chemistry and C hemistry - challengeOrdered By: Dr. Nieves on 11-03-2022 CO2 [Moles/Vol] 29.0 mmol/L 21.0-32.0 [facility] Urea nitrogen/Creatinine [Mass ratio] 27.6 mg/mg 10-20 [facility] Laboratory - Hematology and Cell countsOrdered By: Dr. Nieves on 11-03-2022 Erythrocyte distribution width (RBC) [Entitic vol] 43.3 fL 35.1-43.9 [facility] Erythrocyte distribution width (RBC) [Ratio] 12.6 % 11.6-14.6 [facility] Immature granulocytes/100 WBC (Bld) 0.200 % 0.0-0.9 [facility] Comment on above: IG% - Immature Granu locytes (promyelocytes, myelocytes and metamyelocytes) > 1% indicates that a LEFT SHIFT is Present. MCH (RBC) [Entitic mass] 31.1 pg 27.0-32.0 [facility] Nucleated RBC/100 WBC (Bld) [Ratio] 0 % 0-5 [facility] Auto (RBC) [Mass/Vol]Or dered By: Dr. Nieves on 11-03-2022 MCHC (RBC) [Mass/Vol] 33.3 g/dL 32-36 [facility] No Panel InformationOrdered By: Dr. Nieves on 11-03-2022 Estimated Creatinine Clearance Calc 88.52 ml/min [facility] Estimated GFR (MDRD) Amer 115 mL/min >60 [facility] Comment on above: GFR Calc Estimated GFR (MDRD) Non-Af Amer 95 mL/min >60 [facility] Comment on above: Non- GFR Calc Platelets bldOrdered By: Dr. Nieves on 11-03-2022 Platelets (Bld) [#/Vol] 321 10*3/uL 150-450 [facility] Serum or plasma calcium micah urement (mass/volume)Ordered By: Dr. Nieves on 11-03-2022 Calcium [Mass/Vol] 8.6 mg/dL 8.5-10.[address] [facility] Serum or plasma creatinine m easurement (mass/volume)Ordered By: Dr. Nieves on 11-03-2022 Creatinine [Mass/Vol] 0.91 mg/dL 0.70-1.30 [facility] Comment on above: The validity of the calculated GFR & GFRAA in patients over 70 years has not been determined. Clinical correlation is essential. Serum or plasma urea nitroge n measurement (mass/volume)Ordered By: Dr. Nieves on 11-03-2022 Urea nitrogen [Mass/Vol] 25 mg/dL 7-18 [facility] Thin prep Papanicolaou smear with manual screeningOrdered By: Dr. Nieves on 11-03-2022 Thin prep Papanicolaou smear with manual screening 4 5-15 [facility] Influenza virus A and B and SARS-CoV-2 (COVID-19) Ag panel - Upper respiratory specimOrdered By: Dr. Messina on 09-05-2022 SARS-CoV-2 & FLU Antigen (Rapid) Influenzae A [facility] COVID-19 virus antigen assay Ordered By: Dr. Garcia on 07-26-2022 SARS-CoV-2 (COVID-19) Ag IA.rapid Ql (Resp) [facility] Absolute lymphocyte countOrd ered By: Dr. Hess on 07-15-2022 Lymphocytes Auto (Unsp spec) [#/Vol] 1.71 10*3/uL 0.83-4.51 [facility] Basophil percentageOrdered B y: Dr. Mcintyre on 07-15-2022 Basophil percentage 3.5 mg/dL 2.5-4.9 [facility] Bilirubin [Mass/Vol] 0.40 mg/dL 0.20-1.00 [facility] Comment on above: For patients on eltr ombopag therapy, use of Dim[place] TBIL is not recommended. Protein [Mass/Vol] 8.5 g/dL 6.4-8.[address] [facility] Basophil percentageOrdered B y: Dr. Hess on 07-15-2022 Basophils/100 WBC (Bld) 0.8 % 0-1 [facility] Chloride [Moles/Vol] 108 mmol/L 98-107 [facility] Eosinophils/100 WBC (Bld) 6.0 % 0-5 [facility] Glucose [Mass/Vol] 85 mg/dL 74-[address] [facility] Neutrophils (Bld) [#/Vol] 3.6 10*3/uL 2.0-7.7 [facility] Neutrophils/100 WBC (Bld) 59.1 % 47-70 [facility] Potassium [Moles/Vol] 3.8 mmol/L 3.5-5.1 [facility] Sodium [Moles/Vol] 142 mmol/L 136-[address] [facility] WBC (Bld) [#/Vol] 6.1 10*3/uL 4.4-11.[address] [facility] Blood erythrocytes count (nu mber/volume)Ordered By: Dr. Hess on 07-15-2022 RBC (Bld) [#/Vol] 4.38 10*6/uL 4.6-6.2 [facility] Blood hemoglobin measurement (mass/volume)Ordered By: Dr. Hess on 07-15-2022 Hemoglobin (Bld) [Mass/Vol] 13.8 g/dL 13.0-16.5 [facility] Blood lymphocytes/100 leukoc ytesOrdered By: Dr. Hess on 07-15-2022 Lymphocytes/100 WBC (Bld) 27.9 % 19-41 [facility] Blood monocytes/100 leukocyt esOrdered By: Dr. Hess on 07-15-2022 Monocytes/100 WBC (Bld) 6.0 % 0-10 [facility] Blood platelet mean volumeOr dered By: Dr. Hess on 07-15-2022 Platelet mean volume (Bld) [Entitic vol] 8.9 fL 6.2-12.0 [facility] Determination of erythrocyte mean corpuscular volume (MCV)Ordered By: Dr. Hess on 07-15-2022 MCV (RBC) [Entitic vol] 93.6 fL 80-94 [facility] Direct bilirubinOrdered By: Dr. Mcintyre on 07-15-2022 Bilirubin.direct [Mass/Vol] 0.11 mg/dL 0.00-0.30 [facility] Hematocrit Auto (Bld) [Volum e fraction]Ordered By: Dr. Hess on 07-15-2022 Hematocrit (Bld) [Volume fraction] 41.0 % 40-54 [facility] Laboratory - Chemistry and C hemistry - challengeOrdered By: Dr. Mcintyre on 07-15-2022 ALP [Catalytic activity/Vol] 54 U/L 45-117 [facility] ALT [Catalytic activity/Vol] 63 U/L 16-61 [facility] Globulin (S) [Mass/Vol] 4.4 g/dL 2.2-4.2 [facility] Magnesium [Mass/Vol] 2.3 mg/dL 1.6-2.6 [facility] Laboratory - Chemistry and C hemistry - challengeOrdered By: Dr. Hess on 07-15-2022 CO2 [Moles/Vol] 28.0 mmol/L 21.0-32.0 [facility] Urea nitrogen/Creatinine [Mass ratio] 24.8 mg/mg 10-20 [facility] Laboratory - Drug toxicology Ordered By: Dr. Hess on 07-15-2022 Amphetamines Ql (U) Positive <1000 ng/mL [facility] Benzodiazepines Ql (U) Negative < 200 ng/mL [facility] Cannabinoids Screen Ql (U) Positive < 50 ng/mL [facility] Cocaine Ql (U) Negative < 300 ng/mL [facility] Opiates Ql (U) Negative < 300 ng/mL [facility] Laboratory - Hematology and Cell countsOrdered By: Dr. Hess on 07-15-2022 Erythrocyte distribution width (RBC) [Entitic vol] 43.1 fL 35.1-43.9 [facility] Erythrocyte distribution width (RBC) [Ratio] 12.5 % 11.6-14.6 [facility] Immature granulocytes/100 WBC (Bld) 0.200 % 0.0-0.9 [facility] Comment on above: IG% - Immature Granu locytes (promyelocytes, myelocytes and metamyelocytes) > 1% indicates that a LEFT SHIFT is Present. MCH (RBC) [Entitic mass] 31.5 pg 27.0-32.0 [facility] Nucleated RBC/100 WBC (Bld) [Ratio] 0 % 0-5 [facility] MCHC Auto (RBC) [Mass/Vol]Or dered By: Dr. Hess on 07-15-2022 MCHC (RBC) [Mass/Vol] 33.7 g/dL 32-36 [facility] No Panel InformationOrdered By: Dr. Hess on 07-15-2022 MDMA (Ecstasy) Screen Positive < 500 ng/mL [facility] Urine Barbiturates Screen Negative < 200 ng/mL [facility] Urine Drug Screen Comment [facility] Comment on above: CONFIRMATORY TESTING FOR ALL POSITIVE URINE DRUG SCREENRESULTS WILL ONLY BE SENT OUT UPON PHYSICIAN ORDER. VISTA Urine Drug Screen methods provide only preliminaryanalytical test results. A more specific alternate chemicalmethod must be used in order to obtain a confirmedanalytical result. Gas chromatography/mass spectrometery(GC/MS) is the preferred confirmatory method. Clinicalconsideration and professional judgement should be appliedto any drug of abuse test result, particularly whenpreliminary positive results are used. URINE TCA TESTING MUST BE ORDERED SEPARATELY. USE TESTMNEMONIC: [facility] Urine Methadone Screen Negative < 300 ng/mL [facility] Estimated Creatinine Clearance Calc 79.37 ml/min [facility] Estimated GFR (MDRD) Amer 107 mL/min >60 [facility] Comment on above: GFR Calc Estimated GFR (MDRD) Non-Af Amer 89 mL/min >60 [facility] Comment on above: Non- GFR Calc Ethyl Alcohol Level < 3.0 mg/dL [facility] Comment on above: The serum:whole bloo d ethanol ratio is approximately 1.14and varies slightly with hematocrit. Medical Alcohol reference interval and critical value innon-tolerant individuals; 50 - 100 Impairment 100 Intoxication 100 - 250 Severe Poisoning 250 - 400 Deep/possible fatal coma Platelets bldOrdered By: Dr. Hess on 07-15-2022 Platelets (Bld) [#/Vol] 289 10*3/uL 150-450 [facility] Serum or plasma albumin micah urement (mass/volume)Ordered By: Dr. Mcintyre on 07-15-2022 Albumin [Mass/Vol] 4.1 g/dL 3.2-5.[address] [facility] Serum or plasma calcium micah urement (mass/volume)Ordered By: Dr. Hess on 07-15-2022 Calcium [Mass/Vol] 9.1 mg/dL 8.5-10.[address] [facility] Serum or plasma creatinine m easurement (mass/volume)Ordered By: Dr. Hess on 07-15-2022 Creatinine [Mass/Vol] 0.97 mg/dL 0.70-1.30 [facility] Comment on above: The validity of the calculated GFR & GFRAA in patients over 70 years has not been determined. Clinical correlation is essential. Serum or plasma urea nitroge n measurement (mass/volume)Ordered By: Dr. Hess on 07-15-2022 Urea nitrogen [Mass/Vol] 24 mg/dL 7-18 [facility] Thin prep Papanicolaou smear with manual screeningOrdered By: Dr. Mcintyre on 07-15-2022 Thin prep Papanicolaou smear with manual screening 32 U/L 15-37 [facility] Thin prep Papanicolaou smear with manual screeningOrdered By: Dr. Hess on 07-15-2022 Thin prep Papanicolaou smear with manual screening 6 5-15 [facility] Urine phencyclidine (PCP) de tectionOrdered By: Dr. Hess on 07-15-2022 Phencyclidine Ql (U) Negative < 25 ng/mL [facility] Absolute lymphocyte counton 05-24-2022 Lymphocytes Auto (Unsp spec) [#/Vol] 1.23 10*3/uL 0.83-4.51 [facility] Work Phone: Basophil percentageon 2021 Basophils/100 WBC (Bld) 0.5 % 0-1 [facility] Work Phone: [phone] Bilirubin [Mass/Vol] 0.50 mg/dL 0.20-1.00 [facility] Work Phone: Comment on above: For patients on eltr ombopag therapy, use of [place] TBIL is not recommended. Chloride [Moles/Vol] 107 mmol/L 98-107 [facility] Work Phone: Eosinophils/100 WBC (Bld) 6.2 % 0-5 [facility] Work Phone: Glucose [Mass/Vol] 117 mg/dL 74-[address] [facility] Work Phone: Comment on above: Fasting Glucose resu lt from 100 to 125 mg/dL suggests IMPAIRED HOMEOSTASIS per A.D.A. criteria. Neutrophils (Bld) [#/Vol] 4.0 10*3/uL 2.0-7.7 [facility] Work Phone: Neutrophils/100 WBC (Bld) 67.5 % 47-70 [facility] Work Phone: Potassium [Moles/Vol] 3.8 mmol/L 3.5-5.1 [facility] Work Phone: Protein [Mass/Vol] 8.0 g/dL 6.4-8.[address] [facility] Work Phone: [phone] Sodium [Moles/Vol] 140 mmol/L 136-[address] [facility] Work Phone: WBC (Bld) [#/Vol] 6.0 10*3/uL 4.4-11.[address] [facility] Work Phone: Blood erythrocytes count (nu mber/volume)on 05-24-2022 RBC (Bld) [#/Vol] 4.22 10*6/uL 4.6-6.2 [facility] Work Phone: Blood hemoglobin measurement (mass/volume)on 05-24-2022 Hemoglobin (Bld) [Mass/Vol] 13.1 g/dL 13.0-16.5 [facility] Work Phone: Blood lymphocytes/100 leukoc yteson 05-24-2022 Lymphocytes/100 WBC (Bld) 20.6 % 19-41 [facility] Work Phone: Blood monocytes/100 leukocyt eson 05-24-2022 Monocytes/100 WBC (Bld) 4.9 % 0-10 [facility] Work Phone: Blood platelet mean volumeon 05-24-2022 Platelet mean volume (Bld) [Entitic vol] 8.5 fL 6.2-12.0 [facility] Work Phone: Determination of erythrocyte mean corpuscular volume (MCV)on 05-24-2022 MCV (RBC) [Entitic vol] 91.0 fL 80-94 [facility] Work Phone: Hematocrit Auto (Bld) [Volum e fraction]on 05-24-2022 Hematocrit (Bld) [Volume fraction] 38.4 % 40-54 [facility] Work Phone: Laboratory - Chemistry and C hemistry - challengeon 05-24-2022 ALP [Catalytic activity/Vol] 57 U/L 45-117 [facility] Work Phone: ALT [Catalytic activity/Vol] 66 U/L 16-61 [facility] Work Phone: CO2 [Moles/Vol] 28.0 mmol/L 21.0-32.0 [facility] Work Phone: Globulin (S) [Mass/Vol] 4.2 g/dL 2.2-4.2 [facility] Work Phone: Urea nitrogen/Creatinine [Mass ratio] 21.8 mg/mg 10-20 [facility] Work Phone: Laboratory - Drug toxicology on 05-24-2022 Amphetamines Ql (U) Positive <1000 ng/mL [facility] Work Phone: Benzodiazepines Ql (U) Negative < 200 ng/mL [facility] Work Phone: Cannabinoids Screen Ql (U) Negative < 50 ng/mL [facility] Work Phone: Cocaine Ql (U) Negative < 300 ng/mL [facility] Work Phone: Opiates Ql (U) Positive < 300 ng/mL [facility] Work Phone: Laboratory - Hematology and Cell countson 05-24-2022 Erythrocyte distribution width (RBC) [Entitic vol] 41.7 fL 35.1-43.9 [facility] Work Phone: Erythrocyte distribution width (RBC) [Ratio] 12.8 % 11.6-14.6 [facility] Work Phone: Immature granulocytes/100 WBC (Bld) 0.300 % 0.0-0.9 [facility] Work Phone: Comment on above: IG% - Immature Granu locytes (promyelocytes, myelocytes and metamyelocytes) > 1% indicates that a LEFT SHIFT is Present. MCH (RBC) [Entitic mass] 31.0 pg 27.0-32.0 [facility] Work Phone: Nucleated RBC/100 WBC (Bld) [Ratio] 0 % 0-5 [facility] Work Phone: MCHC Auto (RBC) [Mass/Vol]on 05-24-2022 MCHC (RBC) [Mass/Vol] 34.1 g/dL 32-36 [facility] Work Phone: No Panel Informationon 05-24 MDMA (Ecstasy) Screen Positive < 500 ng/mL [facility] Work Phone: Urine Barbiturates Screen Negative < 200 ng/mL [facility] Work Phone: Urine Drug Screen Comment [facility] Work Phone: Comment on above: CONFIRMATORY TESTING FOR ALL POSITIVE URINE DRUG SCREENRESULTS WILL ONLY BE SENT OUT UPON PHYSICIAN ORDER. [facility]ISTA Urine Drug Screen methods provide only preliminaryanalytical test results. A more specific alternate chemicalmethod must be used in order to obtain a confirmedanalytical result. Gas chromatography/mass spectrometery(GC/MS) is the preferred confirmatory method. Clinicalconsideration and professional judgement should be appliedto any drug of abuse test result, particularly whenpreliminary positive results are used. URINE TCA TESTING MUST BE ORDERED SEPARATELY. USE TESTMNEMONIC: [facility] Urine Methadone Screen Negative < 300 ng/mL [facility] Work Phone: Estimated Creatinine Clearance Calc 70.36 ml/min [facility] Work Phone: Estimated GFR (MDRD) Amer 102 mL/min >60 [facility] Work Phone: Comment on above: GFR Calc Estimated GFR (MDRD) Non-Af Amer 84 mL/min >60 [facility] Work Phone: Comment on above: Non- GFR Calc Ethyl Alcohol Level < 3.0 mg/dL [facility] Work Phone: Comment on above: The serum:whole bloo d ethanol ratio is approximately 1.14and varies slightly with hematocrit. Medical Alcohol reference interval and critical value innon-tolerant individuals; 50 - 100 Impairment 100 Intoxication 100 - 250 Severe Poisoning 250 - 400 Deep/possible fatal coma Platelets bldon 05-24-2022 Platelets (Bld) [#/Vol] 300 10*3/uL 150-450 [facility] Work Phone: Serum or plasma albumin micah urement (mass/volume)on 05-24-2022 Albumin [Mass/Vol] 3.8 g/dL 3.2-5.[address] [facility] Work Phone: Serum or plasma albumin/glob ulin mass ratioon 05-24-2022 Albumin/Globulin [Mass ratio] 0.9 {ratio} 0.9-2.4 [facility] Work Phone: Serum or plasma calcium micah urement (mass/volume)on 05-24-2022 Calcium [Mass/Vol] 8.9 mg/dL 8.5-10.[address] [facility] Work Phone: Serum or plasma creatinine m easurement (mass/volume)on 05-24-2022 Creatinine [Mass/Vol] 1.01 mg/dL 0.70-1.30 [facility] Work Phone: Comment on above: The validity of the calculated GFR & GFRAA in patients over 70 years has not been determined. Clinical correlation is essential. Serum or plasma urea nitroge n measurement (mass/volume)on 05-24-2022 Urea nitrogen [Mass/Vol] 22 mg/dL 7-18 [facility] Work Phone: Thin prep Papanicolaou smear with manual screeningon 05-24-2022 Thin prep Papanicolaou smear with manual screening 39 U/L 15-37 [facility] Work Phone: Thin prep Papanicolaou smear with manual screening 5 5-15 [facility] Work Phone: Urine phencyclidine (PCP) de tectionon 05-24-2022 Phencyclidine Ql (U) Negative < 25 ng/mL [facility] Work Phone: Absolute lymphocyte counton 03-28-2022 Lymphocytes Auto (Unsp spec) [#/Vol] 1.05 10*3/uL 0.83-4.51 [facility] Work Phone: Basophil percentageon 2021 Basophils/100 WBC (Bld) 0.3 % 0-1 [facility] Work Phone: Chloride [Moles/Vol] 101 mmol/L 98-107 [facility] Work Phone: Eosinophils/100 WBC (Bld) 5.9 % 0-5 [facility] Work Phone: Glucose [Mass/Vol] 95 mg/dL 74-[address] [facility] Work Phone: Neutrophils (Bld) [#/Vol] 6.9 10*3/uL 2.0-7.7 [facility] Work Phone: Neutrophils/100 WBC (Bld) 76.5 % 47-70 [facility] Work Phone: Potassium [Moles/Vol] 3.8 mmol/L 3.5-5.1 [facility]: Sodium [Moles/Vol] 136 mmol/L 136-[address] [facility] Work Phone: [phone] WBC (Bld) [#/Vol] 9.0 10*3/uL 4.4-11.[address] [facility] Work Phone: [phone] Blood erythrocytes count (nu mber/volume)on 03-28-2022 RBC (Bld) [#/Vol] 4.54 10*6/uL 4.6-6.2 [facility] Work Phone: Blood hemoglobin measurement (mass/volume)on 03-28-2022 Hemoglobin (Bld) [Mass/Vol] 14.4 g/dL 13.0-16.5 [facility] Work Phone: Blood lymphocytes/100 leukoc yteson 03-28-2022 Lymphocytes/100 WBC (Bld) 11.7 % 19-41 [facility] Work Phone: Blood monocytes/100 leukocyt eson 03-28-2022 Monocytes/100 WBC (Bld) 5.3 % 0-10 [facility] Work Phone: Blood platelet mean volumeon 03-28-2022 Platelet mean volume (Bld) [Entitic vol] 9.0 fL 6.2-12.0 [facility] Work Phone: Determination of erythrocyte mean corpuscular volume (MCV)on 03-28-2022 MCV (RBC) [Entitic vol] 93.2 fL 80-94 [facility] Work Phone: [phone] Hematocrit Auto (Bld) [Volum e fraction]on 03-28-2022 Hematocrit (Bld) [Volume fraction] 42.3 % 40-54 [facility] Work Phone: Laboratory - Chemistry and C hemistry - challengeon 03-28-2022 CO2 [Moles/Vol] 29.0 mmol/L 21.0-32.0 [facility] Work Phone: Urea nitrogen/Creatinine [Mass ratio] 23.5 mg/mg 10-20 [facility] Work Phone: Laboratory - Hematology and Cell countson 03-28-2022 Erythrocyte distribution width (RBC) [Entitic vol] 41.4 fL 35.1-43.9 [facility] Work Phone: Erythrocyte distribution width (RBC) [Ratio] 12.0 % 11.6-14.6 [facility] Work Phone: Immature granulocytes/100 WBC (Bld) 0.300 % 0.0-0.9 [facility] Work Phone: Comment on above: IG% - Immature Granu locytes (promyelocytes, myelocytes and metamyelocytes) > 1% indicates that a LEFT SHIFT is Present. MCH (RBC) [Entitic mass] 31.7 pg 27.0-32.0 [facility] Work Phone: Nucleated RBC/100 WBC (Bld) [Ratio] 0 % 0-5 [facility] Work Phone: MCHC Auto (RBC) [Mass/Vol]on 03-28-2022 MCHC (RBC) [Mass/Vol] 34.0 g/dL 32-36 [facility] Work Phone: No Panel Informationon 03-28 Estimated Creatinine Clearance Calc 83.60 ml/min [facility] Work Phone: Estimated GFR (MDRD) Amer 125 mL/min >60 [facility] Work Phone: Comment on above: GFR Calc Estimated GFR (MDRD) Non-Af Amer 103 mL/min >60 [facility] Work Phone: Comment on above: Non- GFR Calc Platelets bldon 03-28-2022 Platelets (Bld) [#/Vol] 244 10*3/uL 150-450 [facility] Work Phone: Serum or plasma calcium micah urement (mass/volume)on 03-28-2022 Calcium [Mass/Vol] 8.5 mg/dL 8.5-10.[address] [facility] Work Phone: Serum or plasma creatinine m easurement (mass/volume)on 03-28-2022 Creatinine [Mass/Vol] 0.85 mg/dL 0.70-1.30 [facility] Work Phone: Comment on above: The validity of the calculated GFR & GFRAA in patients over 70 years has not been determined. Clinical correlation is essential. Serum or plasma urea nitroge n measurement (mass/volume)on 03-28-2022 Urea nitrogen [Mass/Vol] 20 mg/dL 7-18 [facility] Work Phone: Thin prep Papanicolaou smear with manual screeningon 03-28-2022 Thin prep Papanicolaou smear with manual screening 6 5-15 [facility] Work Phone: Laboratory - Microbiology an d Antimicrobial susceptibilityon 03-26-2022 SARS-CoV-2 (COVID-19) RNA WES+probe Ql (Unsp spec) Not detected [facility] Work Phone: No Panel Informationon 03-26 Influenza Types A,B Rapid (Clinic) Not detected [facility] Work Phone: Absolute lymphocyte counton 03-19-2022 Lymphocytes Auto (Unsp spec) [#/Vol] 1.40 10*3/uL 0.83-4.51 [facility] Work Phone: Basophil percentageon 2021 Basophils/100 WBC (Bld) 0.9 % 0-1 [facility] Work Phone: Bilirubin [Mass/Vol] 0.40 mg/dL 0.20-1.00 [facility] Work Phone: Comment on above: For patients on eltr ombopag therapy, use of [place] TBIL is not recommended. Chloride [Moles/Vol] 107 mmol/L 98-107 [facility] Work Phone: Eosinophils/100 WBC (Bld) 8.8 % 0-5 [facility] Work Phone: Glucose [Mass/Vol] 97 mg/dL 74-[address] [facility] Work Phone: Neutrophils (Bld) [#/Vol] 3.4 10*3/uL 2.0-7.7 [facility] Work Phone: Neutrophils/100 WBC (Bld) 60.1 % 47-70 [facility] Work Phone: Potassium [Moles/Vol] 4.5 mmol/L 3.5-5.1 [facility] Work Phone: Comment on above: Moderate Hemolysis, Result may be falsely increased. Protein [Mass/Vol] 8.2 g/dL 6.4-8.[address] [facility] Work Phone: [phone] Sodium [Moles/Vol] 139 mmol/L 136-[address] [facility] Work Phone: [phone] WBC (Bld) [#/Vol] 5.7 10*3/uL 4.4-11.[address] [facility] Work Phone: Blood erythrocytes count (nu mber/volume)on 03-19-2022 RBC (Bld) [#/Vol] 4.46 10*6/uL 4.6-6.2 [facility] Work Phone: Blood hemoglobin measurement (mass/volume)on 03-19-2022 Hemoglobin (Bld) [Mass/Vol] 13.9 g/dL 13.0-16.5 [facility] Work Phone: Blood lymphocytes/100 leukoc yteson 03-19-2022 Lymphocytes/100 WBC (Bld) 24.6 % 19-41 [facility] Work Phone: Blood monocytes/100 leukocyt eson 03-19-2022 Monocytes/100 WBC (Bld) 5.4 % 0-10 [facility] Work Phone: [phone] Blood platelet mean volumeon 03-19-2022 Platelet mean volume (Bld) [Entitic vol] 9.0 fL 6.2-12.0 [facility] Work Phone: Determination of erythrocyte mean corpuscular volume (MCV)on 03-19-2022 MCV (RBC) [Entitic vol] 92.8 fL 80-94 [facility] Work Phone: Hematocrit Auto (Bld) [Volum e fraction]on 03-19-2022 Hematocrit (Bld) [Volume fraction] 41.4 % 40-54 [facility] Work Phone: Laboratory - Chemistry and C hemistry - challengeon 03-19-2022 ALP [Catalytic activity/Vol] 61 U/L 45-117 [facility] Work Phone: ALT [Catalytic activity/Vol] 42 U/L 16-61 [facility] Work Phone: CO2 [Moles/Vol] 28.0 mmol/L 21.0-32.0 [facility] Work Phone: Globulin (S) [Mass/Vol] 4.5 g/dL 2.2-4.2 [facility] Work Phone: Urea nitrogen/Creatinine [Mass ratio] 33.6 mg/mg 10-20 [facility] Work Phone: Laboratory - Drug toxicology on 03-19-2022 Amphetamines Ql (U) Positive <1000 ng/mL [facility] Work Phone: Benzodiazepines Ql (U) Negative < 200 ng/mL [facility] Work Phone: Cannabinoids Screen Ql (U) Negative < 50 ng/mL [facility] Work Phone: Cocaine Ql (U) Negative < 300 ng/mL [facility] Work Phone: Opiates Ql (U) Negative < 300 ng/mL [facility] Work Phone: Laboratory - Hematology and Cell countson 03-19-2022 Erythrocyte distribution width (RBC) [Entitic vol] 40.3 fL 35.1-43.9 [facility] Work Phone: Erythrocyte distribution width (RBC) [Ratio] 11.9 % 11.6-14.6 [facility] Work Phone: Immature granulocytes/100 WBC (Bld) 0.200 % 0.0-0.9 [facility] Work Phone: Comment on above: IG% - Immature Granu locytes (promyelocytes, myelocytes and metamyelocytes) > 1% indicates that a LEFT SHIFT is Present. MCH (RBC) [Entitic mass] 31.2 pg 27.0-32.0 [facility] Work Phone: Nucleated RBC/100 WBC (Bld) [Ratio] 0 % 0-5 [facility] Work Phone: MCHC Auto (RBC) [Mass/Vol]on 03-19-2022 MCHC (RBC) [Mass/Vol] 33.6 g/dL 32-36 [facility] Work Phone: No Panel Informationon 03-19 MDMA (Ecstasy) Screen Positive < 500 ng/mL [facility] Work Phone: Urine Barbiturates Screen Negative < 200 ng/mL [facility] Work Phone: Urine Drug Screen Comment [facility] Work Phone: Comment on above: CONFIRMATORY TESTING FOR ALL POSITIVE URINE DRUG SCREENRESULTS WILL ONLY BE SENT OUT UPON PHYSICIAN ORDER. [facility]ISTA Urine Drug Screen methods provide only preliminaryanalytical test results. A more specific alternate chemicalmethod must be used in order to obtain a confirmedanalytical result. Gas chromatography/mass spectrometery(GC/MS) is the preferred confirmatory method. Clinicalconsideration and professional judgement should be appliedto any drug of abuse test result, particularly whenpreliminary positive results are used. URINE TCA TESTING MUST BE ORDERED SEPARATELY. USE TESTMNEMONIC: [facility] Urine Methadone Screen Negative < 300 ng/mL [facility] Work Phone: Estimated Creatinine Clearance Calc 83.73 ml/min [facility] Work Phone: Estimated GFR (MDRD) Amer 123 mL/min >60 [facility] Work Phone: Comment on above: GFR Calc Estimated GFR (MDRD) Non-Af Amer 101 mL/min >60 [facility] Work Phone: Comment on above: Non- GFR Calc Ethyl Alcohol Level 4.0 mg/dL [facility] Work Phone: Comment on above: The serum:whole bloo d ethanol ratio is approximately 1.14and varies slightly with hematocrit. Medical Alcohol reference interval and critical value innon-tolerant individuals; 50 - 100 Impairment 100 Intoxication 100 - 250 Severe Poisoning 250 - 400 Deep/possible fatal coma Platelets bldon 03-19-2022 Platelets (Bld) [#/Vol] 301 10*3/uL 150-450 [facility] Work Phone: Serum or plasma albumin micah urement (mass/volume)on 03-19-2022 Albumin [Mass/Vol] 3.7 g/dL 3.2-5.[address] [facility] Work Phone: Serum or plasma albumin/glob ulin mass ratioon 03-19-2022 Albumin/Globulin [Mass ratio] 0.8 {ratio} 0.9-2.4 [facility] Work Phone: Serum or plasma calcium micah urement (mass/volume)on 03-19-2022 Calcium [Mass/Vol] 8.6 mg/dL 8.5-10.[address] [facility] Work Phone: Serum or plasma creatinine m easurement (mass/volume)on 03-19-2022 Creatinine [Mass/Vol] 0.86 mg/dL 0.70-1.30 [facility] Work Phone: Comment on above: The validity of the calculated GFR & GFRAA in patients over 70 years has not been determined. Clinical correlation is essential. Serum or plasma urea nitroge n measurement (mass/volume)on 03-19-2022 Urea nitrogen [Mass/Vol] 29 mg/dL - [facility] Work Phone: Thin prep Papanicolaou smear with manual screeningon 03-19-2022 Thin prep Papanicolaou smear with manual screening 33 U/L 15-37 [facility] Work Phone: Comment on above: Moderate Hemolysis, Result may be falsely increased. Thin prep Papanicolaou smear with manual screening 4 5-15 [facility] Work Phone: Urine phencyclidine (PCP) de tectionon 03-19-2022 Phencyclidine Ql (U) Negative < 25 ng/mL [facility] Work Phone: Absolute lymphocyte counton 02-12-2022 Lymphocytes Auto (Unsp spec) [#/Vol] 1.09 10*3/uL 0.83-4.51 [facility] Work Phone: Basophil percentageon 2021 Basophils/100 WBC (Bld) 0.7 % 0-1 [facility] Work Phone: Chloride [Moles/Vol] 108 mmol/L 98-107 [facility] Work Phone: [phone] Eosinophils/100 WBC (Bld) 6.1 % 0-5 [facility] Work Phone: Glucose [Mass/Vol] 96 mg/dL 74-[address] [facility] Work Phone: [phone] Neutrophils (Bld) [#/Vol] 2.8 10*3/uL 2.0-7.7 [facility] Work Phone: Neutrophils/100 WBC (Bld) 60.8 % 47-70 [facility] Work Phone: Potassium [Moles/Vol] 3.8 mmol/L 3.5-5.1 [facility] Work Phone: Sodium [Moles/Vol] 141 mmol/L 136-[address] [facility] Work Phone: WBC (Bld) [#/Vol] 4.6 10*3/uL 4.4-11.[address] [facility] Work Phone: Blood erythrocytes count (nu mber/volume)on 02-12-2022 RBC (Bld) [#/Vol] 4.09 10*6/uL 4.6-6.2 [facility] Work Phone: Blood hemoglobin measurement (mass/volume)on 02-12-2022 Hemoglobin (Bld) [Mass/Vol] 13.2 g/dL 13.0-16.5 [facility] Work Phone: Blood lymphocytes/100 leukoc yteson 02-12-2022 Lymphocytes/100 WBC (Bld) 23.9 % 19-41 [facility] Work Phone: Blood monocytes/100 leukocyt eson 02-12-2022 Monocytes/100 WBC (Bld) 8.1 % 0-10 [facility] Work Phone: Blood platelet mean volumeon 02-12-2022 Platelet mean volume (Bld) [Entitic vol] 8.7 fL 6.2-12.0 [facility] Work Phone: Determination of erythrocyte mean corpuscular volume (MCV)on 02-12-2022 MCV (RBC) [Entitic vol] 94.4 fL 80-94 [facility] Work Phone: Hematocrit Auto (Bld) [Volum e fraction]on 02-12-2022 Hematocrit (Bld) [Volume fraction] 38.6 % 40-54 [facility] Work Phone: Laboratory - Chemistry and C hemistry - challengeon 02-12-2022 CO2 [Moles/Vol] 27.0 mmol/L 21.0-32.0 [facility] Work Phone: Urea nitrogen/Creatinine [Mass ratio] 25.9 mg/mg 10-20 [facility] Work Phone: Laboratory - Hematology and Cell countson 02-12-2022 Erythrocyte distribution width (RBC) [Entitic vol] 42.9 fL 35.1-43.9 [facility] Work Phone: Erythrocyte distribution width (RBC) [Ratio] 12.3 % 11.6-14.6 [facility] Work Phone: Immature granulocytes/100 WBC (Bld) 0.400 % 0.0-0.9 [facility] Work Phone: Comment on above: IG% - Immature Granu locytes (promyelocytes, myelocytes and metamyelocytes) > 1% indicates that a LEFT SHIFT is Present. MCH (RBC) [Entitic mass] 32.3 pg 27.0-32.0 [facility] Work Phone: Nucleated RBC/100 WBC (Bld) [Ratio] 0 % 0-5 [facility] Work Phone: MCHC Auto (RBC) [Mass/Vol]on 02-12-2022 MCHC (RBC) [Mass/Vol] 34.2 g/dL 32-36 [facility] Work Phone: No Panel Informationon 02-12 Estimated Creatinine Clearance Calc 87.09 ml/min [facility] Work Phone: Estimated GFR (MDRD) Amer 125 mL/min >60 [facility] Work Phone: Comment on above: GFR Calc Estimated GFR (MDRD) Non-Af Amer 103 mL/min >60 [facility] Work Phone: Comment on above: Non- GFR Calc Platelets bldon 02-12-2022 Platelets (Bld) [#/Vol] 313 10*3/uL 150-450 [facility] Work Phone: Serum or plasma calcium micah urement (mass/volume)on 02-12-2022 Calcium [Mass/Vol] 8.5 mg/dL 8.5-10.[address] [facility] Work Phone: Serum or plasma creatinine m easurement (mass/volume)on 02-12-2022 Creatinine [Mass/Vol] 0.85 mg/dL 0.70-1.30 [facility] Work Phone: Comment on above: The validity of the calculated GFR & GFRAA in patients over 70 years has not been determined. Clinical correlation is essential. Serum or plasma urea nitroge n measurement (mass/volume)on 02-12-2022 Urea nitrogen [Mass/Vol] 22 mg/dL 7-18 [facility] Work Phone: Thin prep Papanicolaou smear with manual screeningon 02-12-2022 Thin prep Papanicolaou smear with manual screening 6 02-13 [facility] Work Phone: ED Pat Eduon 08-04-2019 ED Pat [facility] Emergency Department [address] [place] [id number] Emergency Department Discharge Instructions MICHAEL MCNEILL, Please provide this information to your Primary Care/Specialist Name: MICHAEL MCNEILL Current Date : 08/04/2019 01:15:09 : 1975 Primary Care Physician: Physician, Gayathri PCP Diagnosis : Follow-Up Instructions: MICHAEL MCNEILL has been given these follow-up instructions: Laboratory Orders: None Ordered Radiology Orders: Name: Status: XR Chest 2 Views Completed Diagnostic Tests: None Ordered Procedure(s) and Patient Education(s) : [facility] List (Custom); Asthma, Acute Bronchospasm EMERGENCY SERVICES MEDICATION LIST Lista de Medicaciones de los Servicios de Emergencia Name MICHAEL MCNEILL MRN ([facility])-[id number] Acct# PLEASE READ THE FOLLOWING REGARDING YOUR MEDICATIONS Based on the information available during your visit we have given you the medication instructions below. Continue taking medications you took prior to your visit unless you have been told to change. Please share this information with your own doctor. Carry a list of your medications with you in case of an emergency. Update it when medications are stopped, doses are changed, or new medications (including cgap-jmr-ectrpjd products) are added. If you have any questions, check with your doctor. Por la informaci??n disponible rowdy bazan visita, las instrucciones de medicaci??n aparecen debajo. Favor de continuar tomando las medicaciones Ud. concepcion?? antes de bazan visita por lo menos que hay cambios. Favor de compartir esta informaci??n con bazan medico. Lleva pennie lista de medicaciones consigo por wanda de emergenc??a. Actualiza la lista cuando Ud. alexander de rui las medicaciones, si cambian las dosis, o si hay nuevas medicaciones a??adidas (incluyendo medicaciones vendidas sin prescripci??n). Favor de preguntar a bazan medico por cualquier jesi. THESE ARE THE MEDICATIONS YOU SHOULD BE TAKING albuterol (Albuterol HFA 90 mcg/Puff MDI) 2 Puff(s) Inhalation 4 Times/Day. Refills: 0., Give spacer, instruct on use loratadine (loratadine 10 mg oral tablet) 1 Tab(s) By Mouth once a day for 60 Days. Refills: 0. PredniSONE (predniSONE 10 mg oral tablet) 1 Tab(s) By Mouth once a day for 14 Days. 4 tabs once per day for 3 days 3 tabs once per day for 3 days 2 tabs once per day for 3 days 1 tabs once per day for 3 days 1/2 tabs once per day for 2 days. Refills: 0. MEDICATIONS GIVEN DURING MEDICAL VISIT albuterol-ipratropium 3 mL last dose given on 08/04/2019 at 00:45 Route: Nebulized Medication If, after treatment, less than 3 outcome indicators (see policy) have been met, administer Albuterol 2.5 mg. albuterol 2.5 mg last dose given on 08/04/2019 at 00:54 Route: Nebulized Medication Give if less than 3 outcome indicators have been met after Albuterol-Ipratropium (DuoNeb) treatment. Administer x 2 every 20 minutes for a maximum of 3 treatments including 1st DuoNeb in the Emergency Department only. acetaminophen 975 mg last dose given on 08/04/2019 at 01:07 Route: By Mouth Maximum 4 Gm Acetaminophen/Day for Adults prednisone 40 mg last dose given on 08/04/2019 at 01:07 Route: By Mouth NON-MEDICATION PRESCRIPTION SCHEDULING PHONE NUMBER: MEDICATION CHANGE DETAILS (Not your Final Home Medication List) During the course of your visit, your home medication list was updated with the most current information. The details of those changes are shown below: NEW MEDICATIONS Printed Prescriptions albuterol (Albuterol HFA 90 mcg/Puff MDI) 2 Puff(s) Inhalation 4 Times/Day. Refills: 0., Give spacer, instruct on use Comment __ loratadine (loratadine 10 mg oral tablet) 1 Tab(s) By Mouth once a day for 60 Days. Refills: 0. Comment __ PredniSONE (predniSONE 10 mg oral tablet) 1 Tab(s) By Mouth once a day for 14 Days. 4 tabs once per day for 3 days 3 tabs once per day for 3 days 2 tabs once per day for 3 days 1 tabs once per day for 3 days 1/2 tabs once per day for 2 days. Refills: 0. Comment __ UPDATED MEDICATIONS None UNCHANGED MEDICATIONS None STOP TAKING THESE MEDICATIONS None DO NOT TAKE UNTIL YOU TALK TO YOUR DOCTOR None [facility] Emergency Department [address] [place], [place] [id number] Emergency Department Discharge Instructions Name: OSITO MICHAEL Boland Current Date:08/04/2019 01:15:09 :1975 Primary Physician:Physician, No PCP We would like to thank you for choosing [facility] for your emergency medical needs. We examined and treated you today on an emergency basis only. This was not a substitute for, or an effort to provide, complete medical care. In most cases, you must let your doctor (or the doctor we referred you to) check you again. Tell your doctor about any new or lasting problems. We cannot recognize and treat all injuries or illnesses in one emergency department visit. After you leave, you should follow the directions attached. When arranging for follow-up care with your physician/referral identify yourself as being seen in the emergency department. . Instructions for obtaining X-rays: When following up with your doctor, you may need to take copies of your x-rays that were done in the Emergency Department. If you didn't receive these upon your discharge from the emergency department, please call . When the final report becomes available and it is reviewed, the emergency department will attempt to contact you if there are any changes in your instructions. It is important that you leave accurate information with us on how to contact you. IF you cannot be contacted, YOU must contact the follow-up doctor that you were assigned to make sure that the final official x-ray report does not require a change in your treatment. Instructions for obtaining medical records: If you need a copy of your medical records for follow-up, please contact the Health Information Management Department at . Their office hours are 8 AM- 4:30 PM, Monday through Monday. Please note: Results are not immediately available. Please allow a minimum of 36 hours for documentation and results. If you were prescribed an antibiotic: Antibiotics are life-saving drugs and they need to be used properly. Your team might change your antibiotic because test results show that a different antibiotic would be better to treat your infection. Like all medications, antibiotics have side effects. Some can be serious. This includes the risk of getting an antibiotic-resistant infection later, which may be difficult to treat. Remember to take your antibiotics as prescribed. If you have any questions please talk to your healthcare team. Seatbelts: There is no doubt that seatbelts save lives. Every day, people without seatbelts have more serious injuries. Have everyone buckle up, using age appropriate seatbelts or car seats, to reduce their risk of injury. Smoking: If you do smoke, we encourage you to stop. Smoking affects all aspects of your health and the health of those around you. Call the [place] [employer] at 4-682-ZVAX-USA or the [place] [employer] at 4-333-MGD-2346 for more information. High blood pressure: Your screening blood pressure today was 136 mm Hg / 84 mm Hg. Hypertension (high blood pressure) is blood pressure over 120/80. People with hypertension should contact their primary care provider within 30 days to follow up. Check your patient portal for additional blood pressure information. Immunizations: Immunization is a way to protect against deadly infections. Discuss this with your child's shoe dyer, or Public Health Department. Your family practice doctor can determine if you need pneumonia or flu vaccine. The [facility] can be reached at . Substance Abuse Program: Concerns with addiction to alcohol, benzodiazepines (Ativan or Xanax) and Opiates (Heroin, Percocet, OxyContin, Methadone or Fentanyl)? [facility] offers an inpatient Substance Abuse Program to help treat the symptoms associated with medical detoxification of addictive substances. The new program offers care for non- adults (18 and older) looking to break the chain to addictive chemicals. The Substance Abuse Program is a voluntary inpatient admission and it starts with a pre-screening phone call to a social work therapist. During the call, goals and objectives for recovery and how the patient will transition to outpatient care will be established. Please call [phone] to get help today. Domestic Violence: If you are a victim of domestic violence (physical, verbal, or emotional), you are not alone. Discuss this with your physician or a friend and call Choices Hotline ( for assistance and support. You are the most important factor in your recovery. Follow the provided instructions carefully. Take your medications as prescribed. Most importantly, see a doctor again as discussed. If you have problems that we have not discussed, call or visit your doctor right away. If you do not have a primary care physician, we have provided one for you to follow up with. When you call for an appointment, please inform them that you were seen in the emergency department and the date of your visit. If you are unable to reach your doctor and are still experiencing problems, return to the emergency department. For assistance finding a primary care physician, call the Physician Referral Line at . Suicide Hotline: Your mental and emotional well-being is important. If you are in a mental health crisis or are having thoughts of suicide, please call the nationwide suicide hotline, anytime day or night, at 4-440-830-NKOK. Community Rubber Roller Grinder: You may be contacted by your local fire department for a follow up visit from a community mash processing operator. The community mash processing operator can help with a home safety check; follow up care, and general home care management. Pharmacy Information: Below is a list of 24 hour pharmacies that we are aware of. We suggest that you call the specific pharmacy for their hours before traveling to a location. Hours may vary on holidays. [facility] [address] [phone] [place] [address] [phone] [place] [address] [phone] [place] [phone] [address] [place], [place] [phone] [address] [place] [address] [phone] [place] [address] [phone] Take all medications as directed. If you need prescription assistance, contact the following agencies: ?? Partnership for Prescription Assistance at or www.pparx.org ?? [place] [facility] at or www.In2Gamesrx.org ?? [employer] [employer]ivacta is a site with many valuable coupons Patient Education Materials MICHAEL MCNEILL has been given the following patient education materials: [facility] Emergency Department [facility]. [facility]. offers comprehensive and integrated primary care medical services. We welcome the opportunity to provide follow-up care for your family, now that you've been discharged from the hospital. We offer transportation and airplane patrol pilot services. If you need either of these services, please let us know when you call to make your appointment and we'll be happy to make these arrangements for you. We count it a privilege to have the opportunity to care for you at any one of our conveniently located health center locations below. [facility]. can provide you with: ?? Family Practice medical care for adults and children including physicals and immunizations ?? and care, PULLEY MAN, Podiatry and Pediatric services ?? Referrals to specialists when needed ?? Dental, Vision and Prescription services ?? Lab Services such as cholesterol, glucose, sickle cell, lead poisoning, , PAP, and HIV tests ?? Health education and nutritional counseling ?? [facility]. provides health care to the homeless. For further information contact: [facility] [phone] Health Insurance plans accepted by [facility]: [place], [place]. (BCCP), [employer] Insurance, [place] Blue Cross and Blue [facility], Care source, [employer], Medicaid, Medical [place], Medicare, Medicare-[place], [place] and [facility] Please call any location for further information. [facility]. provides services regardless of ability to pay. If you don't have insurance coverage, your cost will be based on your income and family size. [facility] [address] [place] [id number] [facility] [address] [place] [address] [facility] [address] [place] [address] [facility] [address] [phone] [facility] [address] [facility], [address] [place] [address] [facility]. Administration: [address] [facility] [place], [place] [address] [facility] is funded by the U.S. Department of Health and Human Services as a Federally Qualified [facility] providing primary health care services to individuals and families in the [place] area. Allergy Asthma, Acute Bronchospasm Acute bronchospasm caused by asthma is also referred to as an asthma attack. Bronchospasm means your air passages become narrowed. The narrowing is caused by inflammation and tightening of the muscles in the air tubes (bronchi) in your lungs. This can make it hard to breathe or cause you to wheeze and cough. CAUSES Possible triggers are: ???Animal dander from the skin, hair, or feathers of animals. ???Dust mites contained in house dust. ???Cockroaches. ???Pollen from trees or grass. ???Mold. ???Cigarette or tobacco smoke. ???Air pollutants such as dust, household juvenile court liaison, hair sprays, aerosol sprays, paint fumes, strong chemicals, or strong odors. ???Cold air or weather changes. Cold air may trigger inflammation. Winds increase molds and pollens in the air. ???Strong emotions such as crying or laughing hard. ???Stress. ???Certain medicines such as aspirin or beta-blockers. ???Sulfites in foods and drinks, such as dried fruits and wine. ???Infections or inflammatory conditions, such as a flu, cold, or inflammation of the nasal membranes (rhinitis). ???Gastroesophageal reflux disease (GERD). GERD is a condition where stomach acid backs up into your esophagus. ???Exercise or strenuous activity. SIGNS AND SYMPTOMS ???Wheezing. ???Excessive coughing, particularly at night. ???Chest tightness. ???Shortness of breath. DIAGNOSIS Your health care provider will ask you about your medical history and perform a physical exam. A chest X-ray or blood testing may be performed to look for other causes of your symptoms or other conditions that may have triggered your asthma attack.? TREATMENT Treatment is aimed at reducing inflammation and opening up the airways in your lungs. ?Most asthma attacks are treated with inhaled medicines. These include quick relief or rescue medicines (such as bronchodilators) and controller medicines (such as inhaled corticosteroids). These medicines are sometimes given through an inhaler or a nebulizer. Systemic steroid medicine taken by mouth or given through an IV tube also can be used to reduce the inflammation when an attack is moderate or severe. Antibiotic medicines are only used if a bacterial infection is present. HOME CARE INSTRUCTIONS ???Rest. ???Drink plenty of liquids. This helps the mucus to remain thin and be easily coughed up. Only use caffeine in moderation and do not use alcohol until you have recovered from your illness. ???Do not smoke. Avoid being exposed to secondhand smoke. ???You play a critical role in keeping yourself in good health. Avoid exposure to things that cause you to wheeze or to have breathing problems. ???Keep your medicines up-to-date and available. Carefully follow your health care provider's treatment plan. ???Take your medicine exactly as prescribed. ???When pollen or pollution is bad, keep windows closed and use an air conditioner or go to places with air conditioning. ???Asthma requires careful medical care. See your health care provider for a follow-up as advised. If you are more than 24 weeks and you were prescribed any new medicines, let your cafeteria operator know about the visit and how you are doing. Follow up with your health care provider as directed. ???After you have recovered from your asthma attack, make an appointment with your outpatient doctor to talk about ways to reduce the likelihood of future attacks. If you do not have a doctor who manages your asthma, make an appointment with a primary care doctor to discuss your asthma. SEEK IMMEDIATE MEDICAL CARE IF: ???You are getting worse. ???You have trouble breathing. If severe, call your local emergency services (911 in the [place] ???You develop chest pain or discomfort. ???You are vomiting. ???You are not able to keep fluids down. ???You are coughing up yellow, green, brown, or bloody sputum. ???You have a fever and your symptoms suddenly get worse. ???You have trouble swallowing. MAKE SURE YOU: ???Understand these instructions. ???Will watch your condition. ???Will get help right away if you are not doing well or get worse. This information is not intended to replace advice given to you by your health care provider. Make sure you discuss any questions you have with your health care provider. Document Released: 01/03/2008 Document Revised: 09/23/2014 Document Reviewed: 03/26/2014 [employer] Patient Education ?2016 [employer] <><><><><><><><><><><>< ><><><><><><><><><><><> <><><><><><><><><><> Patient Visit Summary Signature MICHAEL MCNEILL has been given the following list of patient education materials, prescriptions and follow-up instructions: OSITO Cameron JIMMY D, have received the above patient education materials/instructions and have verbalized understanding: Date Time Patient Signature Date Time Provider Signature Normal [facility] XR Chest 2 Viewson 9 XR Chest 2 views EXAMINATION TYPE: XR Chest 2 Views DATE OF EXAM : 08/04/2019 1:21 AM HISTORY: SOB, COMPARISON: NONE FINDINGS: The heart size and pulmonary vascularity are normal. There is ill-defined increased density within the right apex abutting the pleura. The lung christopher otherwise are clear. No pleural fluid. IMPRESSION: There is ill-defined increased density within the right apical region. This may be related to scar. A more acute process cannot be excluded. Follow-up chest x-ray after completion of therapy is suggested. [place] thanks you for the opportunity to care for your patient. Workstation ID: [id number] FINAL REPORT Dictated By: Lima Siddiqi MD 08/04/2019 01:22 Assigned Physician: Lima Siddiqi MD Reviewed and Electronically Signed By: Lima Siddiqi MD 08/04/2019 01:24 Transcribed by: KASIA 08/04/2019 01:22 Technologist: LUCITA Han [facility] Comment on above: Order Comment: Unable to get pt, respiratory in room 08/04/2019 00:59:01 EDT Amphetamine GCMS Confirmon 0 06-07-2018 Amphetamine GCMS Confirm Positive Normal [facility] Comment on above: Result Comment: LC/M S confirmed the presence of:AMPHETAMINEMETHAMPHETAMINEThis Liquid Chromatography Mass Spectrometry (LC/MS/MS) test was developed and its performance characteristics determined by Toxicology Laboratory at [facility].It has not been cleared or approved by the FDA. The laboratory is regulated under CLIA as qualified to perform high-complexity testing. This test is used for clinical purposes. It should not be regarded as investigational or for research. Performed By: #### C BCDFE, LIVPE, C7EDE, ETOHE, TSHE, FT4E ####[address] [address] Drug Panel 10, Urine Medical - UHEon 06-06-2018 Amphetamine/Methamphet amine Positive Normal [address] [facility] Comment on above: Result Comment: Non- forensic purpose, confirmation report to follow. Performed By: #### 1 0DRGE ####[place] [id number]#### AMPMS ####[facility] - [place] [place] [address] [id number] Health System Galion Hospital[address] [place] [address] 00006 Barbiturates NONE DETECTED Normal 200 [facility] Comment on above: Performed By: #### 1 0DRGE ####[place] [id number]#### AMPMS ####[facility] [place] [place] [address] [id number] Health System [facility] [place] [address]95 Benzodiazepines NONE DETECTED Normal 200 [facility] Comment on above: Performed By: #### 1 0DRGE ####[address] [address]#### AMPMS ####[facility] [place] [place] [address] [id number] Health System [facility] Hospital[address] [place] [address] 43792 Buprenorphine NONE DETECTED Normal 5 [facility] Comment on above: Performed By: #### 1 0DRGE ####[address] [address]#### AMPMS ####[facility] [place] 24314RtmowtAvita Health System [facility] Hospital[address] [place] [address] 35127 Cannabinoids Screen Ql (U) NONE DETECTED Normal 50 [facility] Comment on above: Performed By: #### 1 0DRGE ####[place] [id number]#### AMPMS ####[facility] [place] [place] [address], [place] [address]DzfzkuAvita Health System [facility] Hospital[address] [place] [address] 68522 Cocaine/Metabolites NONE DETECTED Normal 150 [facility] Comment on above: Performed By: #### 1 0DRGE ####[address] [address]#### AMPMS ####[facility] [place] [place] [address], [place] [address]DpvvetAvita Health System [facility] [place] [address] 13077 COMMENT Urine: For medical purposes only. Positive results unconfirmed unless otherwise noted. Normal [facility] Comment on above: Performed By: #### 1 0DRGE ####[address] [address]#### AMPMS ####[facility] [place] [place] [address], [place] [address]QznkmnAvita Health System [facility] Hospital[address] [place] [address]20 Fentanyl NONE DETECTED Normal 2 [facility] Comment on above: Performed By: #### 1 0DRGE ####[address] [address]#### AMPMS ####[facility] [place] [place] [address], [place] [address]HrareoAvita Health System [facility] Hospital[address] [place] [address] 31341 Methadone NONE DETECTED Normal 300 [facility] Comment on above: Performed By: #### 1 0DRGE ####[address] [address]#### AMPMS ####[facility] [place] [place] [address], [place] [address]ZdxhitAvita Health System [facility] Hospital[address] [place] [address] Opiates NONE DETECTED Normal 300 [facility] Comment on above: Performed By: #### 1 0DRGE ####[address] [address]#### AMPMS ####[facility] [place] [place] [address] [id number] Health System [facility] Hospital[address] [place] [address] Oxycodone NONE DETECTED Normal 100 [facility] Comment on above: Performed By: #### 1 0DRGE ####[address] [address]#### AMPMS ####[facility] [place] [address] 11188WhttpaAvita Health System [facility] Hospital[address] [place] [address] 13506 Urinalysis - Eon 8 Appearance Nom (U) Clear Normal Clear [facility] Comment on above: Performed By: #### U AE ####[place] [address] Bacteria Present Abnormal Absent [facility] Comment on above: Performed By: #### U AE ####[place] [address] Blood Urine Large Abnormal Negative [facility] Comment on above: Performed By: #### U AE ####[place] [address] Color Yellow Normal Yellow [facility] Comment on above: Performed By: #### U AE ####[place] [address] COMMENT URINE Mucus Normal [facility] Comment on above: Performed By: #### U AE ####[place] [address] Glucose Ql (U) Negative Normal Negative [facility] Comment on above: Performed By: #### U AE ####[place] [address] Ketones Ql (U) Trace Abnormal Negative [facility] Comment on above: Performed By: #### U AE ####[place] [address] Leukocyte Esterase Negative Normal Negative [facility] Comment on above: Performed By: #### U AE ####[place] [address] Nitrites Urine Negative Normal Negative [facility] Comment on above: Performed By: #### U AE ####[place] [address] pH Test strip (U) 6.0 [pH] Normal 5.0-7.[address] [facility] Comment on above: Performed By: #### U AE ####[place] [address] Protein Urine Negative Normal Negative [facility] Comment on above: Performed By: #### U AE ####[place] [address] RBC LM.HPF #/area (Urine sed) 0-2 Normal 0-2 [facility] Comment on above: Performed By: #### U AE ####[place] [address] Specific [place] urine >1.030 Normal 1.001-1.035 O [facility] Comment on above: Performed By: #### U AE ####[place] [address] Squamous Epithelial 1+ /HPF Normal [facility] Comment on above: Performed By: #### U AE ####[place] [address] Urobilinogen urine 1.0 EU/dL Normal <2.0 [facility] Comment on above: Performed By: #### U AE ####[place] [address] WBC LM.HPF #/area (Urine sed) 0-5 Normal 0-5 [facility] Comment on above: Performed By: #### U AE ####[place] [address] CBC WITH DIFF [place] 018 Abs Baso 0.09 K/uL High <0.09 [facility] Comment on above: Performed By: #### C BCDFE, LIVPE, C7EDE, ETOHE, TSHE, FT4E ####[address] [address] Abs Eos 0.87 K/uL High <0.55 [facility] Comment on above: Performed By: #### C BCDFE, LIVPE, C7EDE, ETOHE, TSHE, FT4E ####[place] [address] Abs Nye 0.55 K/uL Normal 0.30-0.82 [facility] Comment on above: Performed By: #### C BCDFE, LIVPE, C7EDE, ETOHE, TSHE, FT4E ####[place] [address] Basophils/100 WBC Auto (Bld) 0.9 % Normal [facility] Comment on above: Performed By: #### C BCDFE, LIVPE, C7EDE, ETOHE, TSHE, FT4E ####[place] [address] DIFFERENTIAL TYPE Electronic Differential Normal [facility] Comment on above: Performed By: #### C BCDFE, LIVPE, C7EDE, ETOHE, TSHE, FT4E ####[place] [address] Eosinophils/100 WBC Auto (Bld) 8.8 % Normal [facility] Comment on above: Performed By: #### C BCDFE, LIVPE, C7EDE, ETOHE, TSHE, FT4E ####[place] [address] Hematocrit Auto Volume Fraction (Bld) 37.5 % Low 40.1-51.0 [facility] Comment on above: Performed By: #### C BCDFE, LIVPE, C7EDE, ETOHE, TSHE, FT4E ####[place] [address] Hemoglobin mass conc (Bld) 13.0 g/dL Low 13.7-17.5 [facility] Comment on above: Performed By: #### C BCDFE, LIVPE, C7EDE, ETOHE, TSHE, FT4E ####[place] [address] IMMATURE GRANS % 0.3 % Normal [facility] Comment on above: Performed By: #### C BCDFE, LIVPE, C7EDE, ETOHE, TSHE, FT4E ####[place] [address] IMMATURE GRANS ABSOLUTE <0.04 Normal <0.04 [facility] Comment on above: Performed By: #### C BCDFE, LIVPE, C7EDE, ETOHE, TSHE, FT4E ####[place] [address] Lymphocytes Auto #/vol (Bld) 1.17 10*3/uL Low 1.32-3.57 [facility] Comment on above: Performed By: #### C BCDFE, LIVPE, C7EDE, ETOHE, TSHE, FT4E ####[place] [address] Lymphocytes/100 WBC Auto (Bld) 11.9 % Normal [facility] Comment on above: Performed By: #### C BCDFE, LIVPE, C7EDE, ETOHE, TSHE, FT4E ####[place] [address] MCV Auto Entitic volume (RBC) 92.8 fL High 79.0-92.2 [facility] Comment on above: Performed By: #### C BCDFE, LIVPE, C7EDE, ETOHE, TSHE, FT4E ####[place] [address] Mean Cell Hgb 32.2 pg Normal 25.7-32.2 [facility] Comment on above: Performed By: #### C BCDFE, LIVPE, C7EDE, ETOHE, TSHE, FT4E ####[place] [address] Mean Cell Hgb Conc 34.7 g/dL Normal 32.3-36.5 [facility] Comment on above: Performed By: #### C BCDFE, LIVPE, C7EDE, ETOHE, TSHE, FT4E ####[place] [address] Monocytes/100 WBC Auto (Bld) 5.6 % Normal [facility] Comment on above: Performed By: #### C BCDFE, LIVPE, C7EDE, ETOHE, TSHE, FT4E ####[place] [address] NEUTROPHIL SEGMENTED 72.5 % Normal [facility] Comment on above: Performed By: #### C BCDFE, LIVPE, C7EDE, ETOHE, TSHE, FT4E ####[place] [address] Nucleated RBC #/vol (Bld) 0.0 /100 WBC Normal 0.0-0.2 [facility] Comment on above: Performed By: #### C BCDFE, LIVPE, C7EDE, ETOHE, TSHE, FT4E ####[place] [address] Platelet mean volume Auto Entitic volume (Bld) 8.9 fL Low 9.4-12.4 [facility] Comment on above: Performed By: #### C BCDFE, LIVPE, C7EDE, ETOHE, TSHE, FT4E ####[place] [address] Platelets Auto #/vol (Bld) 366 10*3/uL High 163-337 [facility] Comment on above: Performed By: #### C BCDFE, LIVPE, C7EDE, ETOHE, TSHE, FT4E ####[place] [address] RBC Auto #/vol (Bld) 13.4 % Normal 11.6-14.4 [facility] Comment on above: Performed By: #### C BCDFE, LIVPE, C7EDE, ETOHE, TSHE, FT4E ####[place] [address] RBC Auto #/vol (Bld) 4.04 10*6/uL Low 4.63-6.08 [facility] Comment on above: Performed By: #### C BCDFE, LIVPE, C7EDE, ETOHE, TSHE, FT4E ####[place] [address] SEGS + Bands,Absolute 7.16 K/uL High 1.78-5.38 [facility] Comment on above: Performed By: #### C BCDFE, LIVPE, C7EDE, ETOHE, TSHE, FT4E ####[place] [address] WBC Auto #/vol (Bld) 9.87 10*3/uL High 4.23-9.07 [facility] Comment on above: Performed By: #### C BCDFE, LIVPE, C7EDE, ETOHE, TSHE, FT4E ####[place] [address] CHEM 7 EDon 06-05-2018 Anion gap 3 molar conc 14 mmol/L Normal 7-17 [facility] Comment on above: Performed By: #### C BCDFE, LIVPE, C7EDE, ETOHE, TSHE, FT4E ####[place] [address] Chloride molar conc 107 mmol/L Normal 98-108 [facility] Comment on above: Performed By: #### C BCDFE, LIVPE, C7EDE, ETOHE, TSHE, FT4E ####[place] [address] CO2 molar conc 25 mmol/L Normal 22-30 [facility] Comment on above: Performed By: #### C BCDFE, LIVPE, C7EDE, ETOHE, TSHE, FT4E ####[place] [address] Creatinine mass conc 1.05 mg/dL Normal 0.70-1.30 [facility] Comment on above: Performed By: #### C BCDFE, LIVPE, C7EDE, ETOHE, TSHE, FT4E ####[place] [address] Est GFR, >60 Normal >60 [facility] Comment on above: Performed By: #### C BCDFE, LIVPE, C7EDE, ETOHE, TSHE, FT4E ####[place] [address] Est GFR,non >60 Normal >60 [facility] Comment on above: Performed By: #### C BCDFE, LIVPE, C7EDE, ETOHE, TSHE, FT4E ####[place] [address] Glucose mass conc 143 mg/dL High 70-[address] [facility] Comment on above: Performed By: #### C BCDFE, LIVPE, C7EDE, ETOHE, TSHE, FT4E ####[place] [address] Osmolality 305 mOsm/kg Normal 278-305 [facility] Comment on above: Performed By: #### C BCDFE, LIVPE, C7EDE, ETOHE, TSHE, FT4E ####[place] [address] Potassium molar conc 3.4 mmol/L Low 3.5-5.0 [facility] Comment on above: Performed By: #### C BCDFE, LIVPE, C7EDE, ETOHE, TSHE, FT4E ####[place] [address] Sodium molar conc 143 mmol/L Normal 133-[address] [facility] Comment on above: Performed By: #### C BCDFE, LIVPE, C7EDE, ETOHE, TSHE, FT4E ####[place] [address] Urea nitrogen mass conc 28 mg/dL High 7-22 [facility] Comment on above: Performed By: #### C BCDFE, LIVPE, C7EDE, ETOHE, TSHE, FT4E ####[place] [address] Urea nitrogen/Creatinine mass ratio 27 mg/mg Normal [facility] Comment on above: Performed By: #### C BCDFE, LIVPE, C7EDE, ETOHE, TSHE, FT4E ####[place] [address] Ethyl Alcohol,Blood - [facility] 06-05-2018 Ethyl Alcohol, blood <10 Normal <10 [facility] Comment on above: Result Comment: For Medical Purposes Only, Non forensic Performed By: #### C BCDFE, LIVPE, C7EDE, ETOHE, TSHE, FT4E ####[place] [address] Free T4-[facility] 06-05-2018 T4 free mass conc 1.14 ng/dL Normal 0.89-1.[address] [facility] Comment on above: Performed By: #### C BCDFE, LIVPE, C7EDE, ETOHE, TSHE, FT4E ####[place] [address] Lactate,plasma - [facility] 06-05 Lactate,plasma - E 0.9 mmol/L Normal 0.5-2.2 [facility] Comment on above: Performed By: #### L ACTE ####[place] [address] Liver Profile - [facility] 2017 Albumin mass conc 4.5 g/dL Normal 3.5-5.[address] [facility] Comment on above: Performed By: #### C BCDFE, LIVPE, C7EDE, ETOHE, TSHE, FT4E ####[place] [address] ALP enzyme act/vol 54 U/L Normal 32-126 [facility] Comment on above: Performed By: #### C BCDFE, LIVPE, C7EDE, ETOHE, TSHE, FT4E ####[place] [id number] ALT enzyme act/vol 93 U/L High 10-52 [facility] Comment on above: Performed By: #### C BCDFE, LIVPE, C7EDE, ETOHE, TSHE, FT4E ####[place] [address] AST enzyme act/vol 86 U/L High 14-40 [facility] Comment on above: Performed By: #### C BCDFE, LIVPE, C7EDE, ETOHE, TSHE, FT4E ####[place] [address] Bilirubin mass conc 1.0 mg/dL Normal <1.5 [facility] Comment on above: Performed By: #### C BCDFE, LIVPE, C7EDE, ETOHE, TSHE, FT4E ####[place] [address] Bilirubin.direct mass conc 0.3 mg/dL High <0.3 [facility] Comment on above: Performed By: #### C BCDFE, LIVPE, C7EDE, ETOHE, TSHE, FT4E ####[place] [address] Protein mass conc 7.7 g/dL Normal 6.4-8.[address] [facility] Comment on above: Performed By: #### C BCDFE, LIVPE, C7EDE, ETOHE, TSHE, FT4E ####[place] [address] TSH -[facility]on 06-05-2018 Thyrotropin Qn 0.741 uIU/mL Normal 0.550-4.[address] [facility] Comment on above: Performed By: #### C BCDFE, LIVPE, C7EDE, ETOHE, TSHE, FT4E ####[place] [address] XR CHEST AP PORTABLE EDon XR CHEST AP PORTABLE ED EXAM: XR CHEST AP PORTABLE ED, 06/05/2018 20:16 PMCOMPARISON: No prior studies available for comparison.CLINICAL INDICATIONS: coughRELEVANT CLINICAL HISTORY:FINDINGS:Life Support Devices: None Chest Wall: UnremarkableHila: NormalMediastinum: NormalPleural Spaces: No definite pleural effusion. No definite pneumothorax.Lungs: Some irregular opacities at the right apex.Cardiac Silhouette: Normal, without overall or specific chamber enlargement,or abnormal calcification Thoracic Aorta: NormalPulmonary Vessels: Normal, without PVHIMPRESSION:Irregular opacities at the right apex favored to represent scarring. Otherwiseno acute cardiopulmonary findings. Normal [facility] COVID-19 virus antigen assay SARS-CoV-2 (COVID-19) Ag IA.rapid Ql (Resp) [facility] Work Phone: Influenza virus A and B and SARS-CoV-2 (COVID-19) Ag panel - Upper respiratory specim SARS-CoV-2 & FLU Antigen (Rapid) Influenzae A [facility] Work Phone: No Panel Information SARS-CoV-2 & FLU Antigen (Rapid) [facility] Work Phone: Vital Signs Date Time Vital Sign Value Performing Clinician Facility 01-19-2025 15:32-0400 Body temperature 98 [degF] No Primary Care Physician [facility] 01-19-2025 15:32-0400 Diastolic blood pressure 75 mm[Hg] No Primary Care Physician [facility] 01-19-2025 15:32-0400 Heart rate 88 /min No Primary Care Physician [facility] 01-19-2025 15:32-0400 Respiratory rate 16 /min No Primary Care Physician [facility] 01-19-2025 15:32-0400 SaO2% (BldA) [Mass fraction] 96 % No Primary Care Physician [facility] 01-19-2025 15:32-0400 Systolic blood pressure 124 mm[Hg] No Primary Care Physician [facility] 01-19-2025 13:46-0400 Body height 167.64 cm No Primary Care Physician [facility] 01-19-2025 13:46-0400 Body mass index (BMI) [Ratio] 20 kg/m2 No Primary Care Physician [facility] 01-19-2025 13:46-0400 Body weight 56.24 kg No Primary Care Physician [facility] 12-13-2024 13:44-0400 Body temperature 96.6 [degF] No Primary Care Physician [facility] 12-13-2024 13:44-0400 Diastolic blood pressure 90 mm[Hg] No Primary Care Physician [facility] 12-13-2024 13:44-0400 Heart rate 88 /min No Primary Care Physician [facility] 12-13-2024 13:44-0400 Respiratory rate 16 /min No Primary Care Physician [facility] 12-13-2024 13:44-0400 SaO2% (BldA) [Mass fraction] 100 % No Primary Care Physician [facility] 12-13-2024 13:44-0400 Systolic blood pressure 148 mm[Hg] No Primary Care Physician [facility] 12-13-2024 11:18-0400 Body height 167.64 cm No Primary Care Physician [facility] 12-13-2024 11:18-0400 Body mass index (BMI) [Ratio] 20.5 kg/m2 No Primary Care Physician [facility] 12-13-2024 11:18-0400 Body weight 57.6 kg No Primary Care Physician [facility] 12-04-2024 16:39-0500 Body mass index (BMI) [Ratio] 24.7 kg/m2 No Primary Care Physician [facility] 12-04-2024 16:39-0500 Body temperature 98.1 [degF] No Primary Care Physician [facility] 12-04-2024 16:39-0500 Body weight 69.39 kg No Primary Care Physician [facility] 12-04-2024 16:39-0500 Diastolic blood pressure 77 mm[Hg] No Primary Care Physician [facility] 12-04-2024 16:39-0500 Heart rate 89 /min No Primary Care Physician [facility] 12-04-2024 16:39-0500 Respiratory rate 16 /min No Primary Care Physician [facility] 12-04-2024 16:39-0500 SaO2% (BldA) [Mass fraction] 98 % No Primary Care Physician [facility] 12-04-2024 16:39-0500 Systolic blood pressure 90 mm[Hg] No Primary Care Physician [facility] 2024 16:49-0500 Body temperature 97.8 [degF] No Primary Care Physician [facility] 2024 16:49-0500 Diastolic blood pressure 82 mm[Hg] No Primary Care Physician [facility] 2024 16:49-0500 Heart rate 96 /min No Primary Care Physician [facility] 2024 16:49-0500 Respiratory rate 20 /min No Primary Care Physician [facility] 2024 16:49-0500 SaO2% (BldA) [Mass fraction] 93 % No Primary Care Physician [facility] 2024 16:49-0500 Systolic blood pressure 135 mm[Hg] No Primary Care Physician [facility] 2024 12:43-0500 Body mass index (BMI) [Ratio] 20.1 kg/m2 No Primary Care Physician [facility] 2024 12:43-0500 Body weight 56.69 kg No Primary Care Physician [facility] 11-20-2024 16:46-0500 Body weight 58.5 kg No Primary Care Physician [facility] 11-20-2024 15:34-0500 Body mass index (BMI) [Ratio] 20.8 kg/m2 No Primary Care Physician [facility] 11-20-2024 15:34-0500 Body temperature 98.2 [degF] No Primary Care Physician [facility] 11-20-2024 15:34-0500 Diastolic blood pressure 81 mm[Hg] No Primary Care Physician [facility] 11-20-2024 15:34-0500 Heart rate 98 /min No Primary Care Physician [facility] 11-20-2024 15:34-0500 Respiratory rate 18 /min No Primary Care Physician [facility] 11-20-2024 15:34-0500 SaO2% (BldA) [Mass fraction] 96 % No Primary Care Physician [facility] 11-20-2024 15:34-0500 Systolic blood pressure 111 mm[Hg] No Primary Care Physician [facility] 11-12-2024 11:04-0500 Heart rate 81 /min No Primary Care Physician [facility] 11-12-2024 11:04-0500 Respiratory rate 14 /min No Primary Care Physician [facility] 11-12-2024 11:00-0500 Diastolic blood pressure 67 mm[Hg] No Primary Care Physician [facility] 11-12-2024 11:00-0500 Inhaled oxygen concentration 25 % No Primary Care Physician [facility] 11-12-2024 11:00-0500 SaO2% (BldA) [Mass fraction] 95 % No Primary Care Physician [facility] 11-12-2024 11:00-0500 Systolic blood pressure 111 mm[Hg] No Primary Care Physician [facility] 11-12-2024 09:42-0500 Body weight 56.1 kg No Primary Care Physician [facility] 11-12-2024 08:00-0500 Body temperature 97.6 [degF] No Primary Care Physician [facility] 11-12-2024 05:15-0500 Body mass index (BMI) [Ratio] 19.8 kg/m2 No Primary Care Physician [facility] 11-11-2024 20:25-0500 Inhaled oxygen flow rate 2 L/min No Primary Care Physician [facility] 10-23-2024 04:00-0500 Body temperature 98.6 [degF] No Primary Care Physician [facility] 10-23-2024 04:00-0500 Diastolic blood pressure 71 mm[Hg] No Primary Care Physician [facility] 10-23-2024 04:00-0500 Heart rate 87 /min No Primary Care Physician [facility] 10-23-2024 04:00-0500 Respiratory rate 16 /min No Primary Care Physician [facility] 10-23-2024 04:00-0500 SaO2% (BldA) [Mass fraction] 94 % No Primary Care Physician [facility] 10-23-2024 04:00-0500 Systolic blood pressure 119 mm[Hg] No Primary Care Physician [facility] 10-22-2024 13:29-0500 Body weight 55 kg No Primary Care Physician [facility] 10-21-2024 20:51-0500 Body mass index (BMI) [Ratio] 19 kg/m2 No Primary Care Physician [facility] 10-21-2024 19:38-0500 Inhaled oxygen flow rate 3 L/min No Primary Care Physician [facility] 10-21-2024 17:05-0500 Inhaled oxygen concentration 40 % No Primary Care Physician [facility] 09-19-2024 19:47-0500 Body temperature 98.1 [degF] No Primary Care Physician [facility] 09-19-2024 19:47-0500 Diastolic blood pressure 81 mm[Hg] No Primary Care Physician [facility] 09-19-2024 19:47-0500 Heart rate 77 /min No Primary Care Physician [facility] 09-19-2024 19:47-0500 Respiratory rate 19 /min No Primary Care Physician [facility] 09-19-2024 19:47-0500 SaO2% (BldA) [Mass fraction] 93 % No Primary Care Physician [facility] 09-19-2024 19:47-0500 Systolic blood pressure 121 mm[Hg] No Primary Care Physician [facility] 09-19-2024 17:47-0500 Body mass index (BMI) [Ratio] 25.3 kg/m2 No Primary Care Physician [facility] 09-19-2024 17:47-0500 Body weight 73.45 kg No Primary Care Physician [facility] 09-07-2024 12:55-0500 Body temperature 98.6 [degF] No Primary Care Physician [facility] 09-07-2024 12:55-0500 Diastolic blood pressure 76 mm[Hg] No Primary Care Physician [facility] 09-07-2024 12:55-0500 Heart rate 78 /min No Primary Care Physician [facility] 09-07-2024 12:55-0500 Respiratory rate 16 /min No Primary Care Physician [facility] 09-07-2024 12:55-0500 SaO2% (BldA) [Mass fraction] 99 % No Primary Care Physician [facility] 09-07-2024 12:55-0500 Systolic blood pressure 126 mm[Hg] No Primary Care Physician [facility] 09-07-2024 11:39-0500 Body mass index (BMI) [Ratio] 20.5 kg/m2 No Primary Care Physician [facility] 09-07-2024 11:39-0500 Body weight 59.42 kg No Primary Care Physician [facility] 10-31-2023 09:19-0500 Body temperature 98.3 [degF] No Primary Care Physician [facility] 10-31-2023 09:19-0500 Diastolic blood pressure 89 mm[Hg] No Primary Care Physician [facility] 10-31-2023 09:19-0500 Heart rate 88 /min No Primary Care Physician [facility] 10-31-2023 09:19-0500 Respiratory rate 18 /min No Primary Care Physician [facility] 10-31-2023 09:19-0500 SaO2% (BldA) [Mass fraction] 100 % No Primary Care Physician [facility] 10-31-2023 09:19-0500 Systolic blood pressure 110 mm[Hg] No Primary Care Physician [facility] 10-29-2023 05:54-0500 Body height 167.64 cm No Primary Care Physician [facility] 10-29-2023 05:54-0500 Body mass index (BMI) [Ratio] 21.5 kg/m2 No Primary Care Physician [facility] 10-29-2023 05:54-0500 Body weight 60.49 kg No Primary Care Physician [facility] 10-29-2023 05:14-0500 Body temperature 96.5 [degF] No Primary Care Physician [facility] 10-29-2023 05:14-0500 Diastolic blood pressure 58 mm[Hg] No Primary Care Physician [facility] 10-29-2023 05:14-0500 Heart rate 100 /min No Primary Care Physician [facility] 10-29-2023 05:14-0500 Respiratory rate 22 /min No Primary Care Physician [facility] 10-29-2023 05:14-0500 SaO2% (BldA) [Mass fraction] 99 % No Primary Care Physician [facility] 10-29-2023 05:14-0500 Systolic blood pressure 124 mm[Hg] No Primary Care Physician [facility] 10-29-2023 04:23-0500 Body height 167.64 cm No Primary Care Physician [facility] 10-29-2023 04:23-0500 Body mass index (BMI) [Ratio] 21.9 kg/m2 No Primary Care Physician [facility] 10-29-2023 04:23-0500 Body weight 61.6 kg No Primary Care Physician [facility] 10-15-2023 11:51-0500 Diastolic blood pressure 91 mm[Hg] No Primary Care Physician [facility] 10-15-2023 11:51-0500 Systolic blood pressure 157 mm[Hg] No Primary Care Physician [facility] 10-15-2023 11:21-0500 Body height 167.64 cm [facility] 10-15-2023 11:21-0500 Body mass index (BMI) [Ratio] 20.9 kg/m2 [facility] 10-15-2023 11:21-0500 Body temperature 96.7 [degF] [facility] 10-15-2023 11:21-0500 Body weight 58.96 kg [facility] 10-15-2023 11:21-0500 Diastolic blood pressure 130 mm[Hg] [facility] 10-15-2023 11:21-0500 Heart rate 52 /min [facility] 10-15-2023 11:21-0500 Respiratory rate 16 /min [facility] 10-15-2023 11:21-0500 SaO2% (BldA) [Mass fraction] 98 % [facility] 10-15-2023 11:21-0500 Systolic blood pressure 168 mm[Hg] [facility] 09-01-2023 01:06-0500 Heart rate 71 /min [facility] 09-01-2023 01:06-0500 Respiratory rate 16 /min [facility] 09-01-2023 01:06-0500 SaO2% (BldA) [Mass fraction] 98 % [facility] 09-01-2023 00:29-0500 Body height 167.64 cm [facility] 09-01-2023 00:29-0500 Body mass index (BMI) [Ratio] 23.3 kg/m2 [facility] 09-01-2023 00:29-0500 Body temperature 96.1 [degF] [facility] 09-01-2023 00:29-0500 Body weight 65.77 kg [facility] 09-01-2023 00:29-0500 Diastolic blood pressure 73 mm[Hg] [facility] 09-01-2023 00:29-0500 Systolic blood pressure 114 mm[Hg] [facility] 08-28-2023 10:33-0500 Body height 170.2 cm Linda Jose MD Work Phone: [facility] 08-28-2023 10:33-0500 Body temperature 97.9 [degF] Linda Jose MD Work Phone: [facility] 08-28-2023 10:33-0500 Body weight 63.87 kg Linda Jose MD Work Phone: [facility] 08-28-2023 10:33-0500 Diastolic blood pressure 84 mm[Hg] Linda Jose MD Work Phone: [facility] 08-28-2023 10:33-0500 Heart rate 109 /min Linda Jose MD Work Phone: [facility] 08-28-2023 10:33-0500 SaO2% (BldA) [Mass fraction] 96 % Linda Jose MD Work Phone: [facility] 08-28-2023 10:33-0500 Systolic blood pressure 130 mm[Hg] Linda Jose MD Work Phone: [facility] 05-29-2023 00:58-0400 Body height 167.64 cm No Primary Care Physician [facility] 05-29-2023 00:58-0400 Body mass index (BMI) [Ratio] 20.1 kg/m2 No Primary Care Physician [facility] 05-29-2023 00:58-0400 Body temperature 97.9 [degF] No Primary Care Physician [facility] 05-29-2023 00:58-0400 Body weight 56.69 kg No Primary Care Physician [facility] 05-29-2023 00:58-0400 Diastolic blood pressure 81 mm[Hg] No Primary Care Physician [facility] 05-29-2023 00:58-0400 Heart rate 100 /min No Primary Care Physician [facility] 05-29-2023 00:58-0400 Respiratory rate 20 /min No Primary Care Physician [facility] 05-29-2023 00:58-0400 SaO2% (BldA) [Mass fraction] 98 % No Primary Care Physician [facility] 05-29-2023 00:58-0400 Systolic blood pressure 120 mm[Hg] No Primary Care Physician [facility] 04-28-2023 07:58-0400 Heart rate 80 /min No Primary Care Physician [facility] 04-28-2023 05:47-0400 Body temperature 97.5 [degF] No Primary Care Physician [facility] 04-28-2023 05:47-0400 Diastolic blood pressure 79 mm[Hg] No Primary Care Physician [facility] 04-28-2023 05:47-0400 Respiratory rate 16 /min No Primary Care Physician [facility] 04-28-2023 05:47-0400 SaO2% (BldA) [Mass fraction] 98 % No Primary Care Physician [facility] 04-28-2023 05:47-0400 Systolic blood pressure 119 mm[Hg] No Primary Care Physician [facility] 04-27-2023 12:17-0400 Body height 167.64 cm No Primary Care Physician [facility] 04-27-2023 12:17-0400 Body weight 56.69 kg No Primary Care Physician [facility] 04-26-2023 20:56-0400 Body mass index (BMI) [Ratio] 20.1 kg/m2 No Primary Care Physician [facility] 04-26-2023 19:57-0400 Diastolic blood pressure 69 mm[Hg] No Primary Care Physician [facility] 04-26-2023 19:57-0400 Heart rate 79 /min No Primary Care Physician [facility] 04-26-2023 19:57-0400 Respiratory rate 16 /min No Primary Care Physician [facility] 04-26-2023 19:57-0400 SaO2% (BldA) [Mass fraction] 98 % No Primary Care Physician [facility] 04-26-2023 19:57-0400 Systolic blood pressure 105 mm[Hg] No Primary Care Physician [facility] 04-26-2023 19:54-0400 Body temperature 97.9 [degF] No Primary Care Physician [facility] 04-26-2023 16:53-0400 Body height 167.64 cm No Primary Care Physician [facility] 04-26-2023 16:53-0400 Body mass index (BMI) [Ratio] 20.4 kg/m2 No Primary Care Physician [facility] 04-26-2023 16:53-0400 Body weight 57.33 kg No Primary Care Physician [facility] 03-26-2023 00:12-0400 Body temperature 97.6 [degF] No Primary Care Physician [facility] 03-26-2023 00:12-0400 Diastolic blood pressure 78 mm[Hg] No Primary Care Physician [facility] 03-26-2023 00:12-0400 Heart rate 79 /min No Primary Care Physician [facility] 03-26-2023 00:12-0400 Respiratory rate 16 /min No Primary Care Physician [facility] 03-26-2023 00:12-0400 SaO2% (BldA) [Mass fraction] 97 % No Primary Care Physician [facility] 03-26-2023 00:12-0400 Systolic blood pressure 106 mm[Hg] No Primary Care Physician [facility] 03-26-2023 00:10-0400 Body height 170.18 cm No Primary Care Physician [facility] 03-26-2023 00:10-0400 Body mass index (BMI) [Ratio] 19.5 kg/m2 No Primary Care Physician [facility] 03-26-2023 00:10-0400 Body weight 56.69 kg No Primary Care Physician [facility] 02-23-2023 23:30-0400 Body mass index (BMI) [Ratio] 24.3 kg/m2 No Primary Care Physician [facility] 02-23-2023 23:30-0400 Body temperature 98.7 [degF] No Primary Care Physician [facility] 02-23-2023 23:30-0400 Body weight 68.5 kg No Primary Care Physician [facility] 02-23-2023 23:30-0400 Diastolic blood pressure 91 mm[Hg] No Primary Care Physician [facility] 02-23-2023 23:30-0400 Heart rate 85 /min No Primary Care Physician [facility] 02-23-2023 23:30-0400 Respiratory rate 18 /min No Primary Care Physician [facility] 02-23-2023 23:30-0400 SaO2% (BldA) [Mass fraction] 95 % No Primary Care Physician [facility] 02-23-2023 23:30-0400 Systolic blood pressure 130 mm[Hg] No Primary Care Physician [facility] 01-22-2023 15:12-0400 Respiratory rate 14 /min No Primary Care Physician [facility] 01-22-2023 14:07-0400 Body height 167.64 cm No Primary Care Physician [facility] 01-22-2023 14:07-0400 Body mass index (BMI) [Ratio] 21.3 kg/m2 No Primary Care Physician [facility] 01-22-2023 14:07-0400 Body temperature 97 [degF] No Primary Care Physician [facility] 01-22-2023 14:07-0400 Body weight 60 kg No Primary Care Physician [facility] 01-22-2023 14:07-0400 Diastolic blood pressure 82 mm[Hg] No Primary Care Physician [facility] 01-22-2023 14:07-0400 Heart rate 78 /min No Primary Care Physician [facility] 01-22-2023 14:07-0400 SaO2% (BldA) [Mass fraction] 100 % No Primary Care Physician [facility] 01-22-2023 14:07-0400 Systolic blood pressure 120 mm[Hg] No Primary Care Physician [facility] 12-24-2022 07:51-0400 Body temperature 97.5 [degF] No Primary Care Physician [facility] 12-24-2022 07:51-0400 Diastolic blood pressure 77 mm[Hg] No Primary Care Physician [facility] 12-24-2022 07:51-0400 Heart rate 79 /min No Primary Care Physician [facility] 12-24-2022 07:51-0400 Respiratory rate 18 /min No Primary Care Physician [facility] 12-24-2022 07:51-0400 SaO2% (BldA) [Mass fraction] 98 % No Primary Care Physician [facility] 12-24-2022 07:51-0400 Systolic blood pressure 134 mm[Hg] No Primary Care Physician [facility] 12-23-2022 23:29-0400 Body height 167.64 cm No Primary Care Physician [facility] 12-23-2022 23:29-0400 Body mass index (BMI) [Ratio] 19.9 kg/m2 No Primary Care Physician [facility] 12-23-2022 23:29-0400 Body weight 56 kg No Primary Care Physician [facility] 12-15-2022 18:20-0400 Body height 167.64 cm [facility] 12-15-2022 18:20-0400 Body temperature 97.8 [degF] [facility] 12-15-2022 18:20-0400 Diastolic blood pressure 81 mm[Hg] [facility] 12-15-2022 18:20-0400 Heart rate 91 /min [facility] 12-15-2022 18:20-0400 Respiratory rate 18 /min [facility] 12-15-2022 18:20-0400 SaO2% (BldA) [Mass fraction] 99 % [facility] 12-15-2022 18:20-0400 Systolic blood pressure 126 mm[Hg] [facility] 12-01-2022 23:24-0500 Body height 167.64 cm [facility] 12-01-2022 23:24-0500 Body mass index (BMI) [Ratio] 20.3 kg/m2 [facility] 12-01-2022 23:24-0500 Body temperature 97.6 [degF] [facility] 12-01-2022 23:24-0500 Body weight 57.15 kg [facility] 12-01-2022 23:24-0500 Diastolic blood pressure 70 mm[Hg] [facility] 12-01-2022 23:24-0500 Heart rate 90 /min [facility] 12-01-2022 23:24-0500 Respiratory rate 18 /min [facility] 12-01-2022 23:24-0500 SaO2% (BldA) [Mass fraction] 97 % [facility] 12-01-2022 23:24-0500 Systolic blood pressure 113 mm[Hg] [facility] 11-03-2022 15:46-0500 Diastolic blood pressure 80 mm[Hg] No Primary Care Physician [facility] 11-03-2022 15:46-0500 Heart rate 72 /min No Primary Care Physician [facility] 11-03-2022 15:46-0500 Respiratory rate 16 /min No Primary Care Physician [facility] 11-03-2022 15:46-0500 Systolic blood pressure 124 mm[Hg] No Primary Care Physician [facility] 11-03-2022 15:09-0500 SaO2% (BldA) [Mass fraction] 98 % No Primary Care Physician [facility] 11-03-2022 12:58-0500 Body height 167.64 cm No Primary Care Physician [facility] 11-03-2022 12:58-0500 Body mass index (BMI) [Ratio] 21.9 kg/m2 No Primary Care Physician [facility] 11-03-2022 12:58-0500 Body temperature 98.1 [degF] No Primary Care Physician [facility] 11-03-2022 12:58-0500 Body weight 61.7 kg No Primary Care Physician [facility] 10-23-2022 02:37-0500 Body temperature 98 [degF] No Primary Care Physician [facility] 10-23-2022 02:37-0500 Diastolic blood pressure 81 mm[Hg] No Primary Care Physician [facility] 10-23-2022 02:37-0500 Heart rate 96 /min No Primary Care Physician [facility] 10-23-2022 02:37-0500 Respiratory rate 18 /min No Primary Care Physician [facility] 10-23-2022 02:37-0500 SaO2% (BldA) [Mass fraction] 98 % No Primary Care Physician [facility] 10-23-2022 02:37-0500 Systolic blood pressure 133 mm[Hg] No Primary Care Physician [facility] 10-23-2022 01:44-0500 Body mass index (BMI) [Ratio] 20.6 kg/m2 No Primary Care Physician [facility] 10-23-2022 01:44-0500 Body weight 58 kg No Primary Care Physician [facility] 10-09-2022 14:57-0500 Diastolic blood pressure 85 mm[Hg] No Primary Care Physician [facility] 10-09-2022 14:57-0500 Heart rate 89 /min No Primary Care Physician [facility] 10-09-2022 14:57-0500 Respiratory rate 18 /min No Primary Care Physician [facility] 10-09-2022 14:57-0500 SaO2% (BldA) [Mass fraction] 97 % No Primary Care Physician [facility] 10-09-2022 14:57-0500 Systolic blood pressure 115 mm[Hg] No Primary Care Physician [facility] 10-09-2022 13:25-0500 Body height 167.64 cm No Primary Care Physician [facility] Work Phone: 10-09-2022 13:25-0500 Body mass index (BMI) [Ratio] 20.9 kg/m2 No Primary Care Physician [facility] 10-09-2022 13:25-0500 Body temperature 96.4 [degF] No Primary Care Physician [facility] 10-09-2022 13:25-0500 Body weight 58.96 kg No Primary Care Physician [facility] 09-09-2022 04:23-0500 Heart rate 85 /min No Primary Care Physician [facility] 09-09-2022 04:23-0500 Respiratory rate 18 /min No Primary Care Physician [facility] 09-09-2022 04:23-0500 SaO2% (BldA) [Mass fraction] 96 % No Primary Care Physician [facility] 09-09-2022 01:56-0500 Body temperature 97.6 [degF] No Primary Care Physician [facility] 09-09-2022 01:56-0500 Diastolic blood pressure 85 mm[Hg] No Primary Care Physician [facility] 09-09-2022 01:56-0500 Systolic blood pressure 127 mm[Hg] No Primary Care Physician [facility] 09-09-2022 01:54-0500 Body height 167.64 cm No Primary Care Physician [facility] Work Phone: 09-09-2022 01:54-0500 Body mass index (BMI) [Ratio] 19.6 kg/m2 No Primary Care Physician [facility] 09-09-2022 01:54-0500 Body weight 55.3 kg No Primary Care Physician [facility] 09-05-2022 11:08-0500 Heart rate 108 /min No Primary Care Physician [facility] 09-05-2022 11:08-0500 Respiratory rate 120 /min No Primary Care Physician [facility] 09-05-2022 10:15-0500 Body height 167.64 cm No Primary Care Physician [facility] Work Phone: 09-05-2022 10:15-0500 Body mass index (BMI) [Ratio] 20.9 kg/m2 No Primary Care Physician [facility] 09-05-2022 10:15-0500 Body temperature 100.8 [degF] No Primary Care Physician [facility] 09-05-2022 10:15-0500 Body weight 58.96 kg No Primary Care Physician [facility] 09-05-2022 10:15-0500 Diastolic blood pressure 90 mm[Hg] No Primary Care Physician [facility] 09-05-2022 10:15-0500 SaO2% (BldA) [Mass fraction] 97 % No Primary Care Physician [facility] 09-05-2022 10:15-0500 Systolic blood pressure 119 mm[Hg] No Primary Care Physician [facility] 08-14-2022 08:13-0500 Diastolic blood pressure 90 mm[Hg] No Primary Care Physician [facility] 08-14-2022 08:13-0500 Heart rate 87 /min No Primary Care Physician [facility] 08-14-2022 08:13-0500 Respiratory rate 16 /min No Primary Care Physician [facility] 08-14-2022 08:13-0500 SaO2% (BldA) [Mass fraction] 98 % No Primary Care Physician [facility] 08-14-2022 08:13-0500 Systolic blood pressure 133 mm[Hg] No Primary Care Physician [facility] 08-14-2022 06:50-0500 Body height 167.64 cm No Primary Care Physician [facility] Work Phone: 08-14-2022 06:50-0500 Body mass index (BMI) [Ratio] 20.9 kg/m2 No Primary Care Physician [facility] 08-14-2022 06:50-0500 Body temperature 97.5 [degF] No Primary Care Physician [facility] 08-14-2022 06:50-0500 Body weight 58.96 kg No Primary Care Physician [facility] 07-26-2022 22:29-0400 SaO2% (BldA) [Mass fraction] 98 % No Primary Care Physician [facility] 07-26-2022 21:54-0400 Diastolic blood pressure 84 mm[Hg] No Primary Care Physician [facility] 07-26-2022 21:54-0400 Heart rate 63 /min No Primary Care Physician [facility] 07-26-2022 21:54-0400 Respiratory rate 16 /min No Primary Care Physician [facility] 07-26-2022 21:54-0400 Systolic blood pressure 127 mm[Hg] No Primary Care Physician [facility] 07-26-2022 17:37-0400 Body height 167.64 cm No Primary Care Physician [facility] Work Phone: 07-26-2022 17:37-0400 Body mass index (BMI) [Ratio] 20.9 kg/m2 No Primary Care Physician [facility] 07-26-2022 17:37-0400 Body temperature 98.3 [degF] No Primary Care Physician [facility] 07-26-2022 17:37-0400 Body weight 58.96 kg No Primary Care Physician [facility] 07-18-2022 10:39-0400 Heart rate 85 /min No Primary Care Physician [facility] 07-18-2022 10:39-0400 Respiratory rate 19 /min No Primary Care Physician [facility] 07-18-2022 08:35-0400 SaO2% (BldA) [Mass fraction] 95 % No Primary Care Physician [facility] 07-18-2022 08:24-0400 Body temperature 97.8 [degF] No Primary Care Physician [facility] 07-18-2022 08:24-0400 Diastolic blood pressure 83 mm[Hg] No Primary Care Physician [facility] 07-18-2022 08:24-0400 Systolic blood pressure 112 mm[Hg] No Primary Care Physician [facility] 07-16-2022 10:02-0400 Body weight 55 kg No Primary Care Physician [facility] 07-15-2022 22:43-0400 Body mass index (BMI) [Ratio] 19.5 kg/m2 No Primary Care Physician [facility] 07-15-2022 21:33-0400 Body temperature 97.9 [degF] No Primary Care Physician [facility] Work Phone: 07-15-2022 21:33-0400 Diastolic blood pressure 90 mm[Hg] No Primary Care Physician [facility] Work Phone: 07-15-2022 21:33-0400 Heart rate 83 /min No Primary Care Physician [facility] Work Phone: 07-15-2022 21:33-0400 Respiratory rate 18 /min No Primary Care Physician [facility] Work Phone: 07-15-2022 21:33-0400 SaO2% (BldA) [Mass fraction] 98 % No Primary Care Physician [facility] Work Phone: 07-15-2022 21:33-0400 Systolic blood pressure 159 mm[Hg] No Primary Care Physician [facility] Work Phone: 07-15-2022 20:56-0400 Body height 167.64 cm No Primary Care Physician [facility] Work Phone: 07-15-2022 20:56-0400 Body mass index (BMI) [Ratio] 20.9 kg/m2 No Primary Care Physician [facility] Work Phone: 07-15-2022 20:56-0400 Body weight 58.96 kg No Primary Care Physician [facility] Work Phone: 07-09-2022 07:41-0400 Heart rate 92 /min No Primary Care Physician [facility] 07-09-2022 07:41-0400 SaO2% (BldA) [Mass fraction] 100 % No Primary Care Physician [facility] 07-09-2022 06:37-0400 Respiratory rate 16 /min No Primary Care Physician [facility] 07-09-2022 06:04-0400 Body mass index (BMI) [Ratio] 20.5 kg/m2 No Primary Care Physician [facility] 07-09-2022 06:04-0400 Body temperature 97.6 [degF] No Primary Care Physician [facility] 07-09-2022 06:04-0400 Body weight 59.6 kg No Primary Care Physician [facility] 07-09-2022 06:04-0400 Diastolic blood pressure 114 mm[Hg] No Primary Care Physician [facility] 07-09-2022 06:04-0400 Systolic blood pressure 129 mm[Hg] No Primary Care Physician [facility] 05-26-2022 08:25-0400 Body temperature 96.9 [degF] No Primary Care Physician [facility] Work Phone: 05-26-2022 08:25-0400 Diastolic blood pressure 71 mm[Hg] No Primary Care Physician [facility] Work Phone: 05-26-2022 08:25-0400 Heart rate 87 /min No Primary Care Physician [facility] Work Phone: 05-26-2022 08:25-0400 Respiratory rate 16 /min No Primary Care Physician [facility] Work Phone: 05-26-2022 08:25-0400 SaO2% (BldA) [Mass fraction] 94 % No Primary Care Physician [facility] Work Phone: 05-26-2022 08:25-0400 Systolic blood pressure 95 mm[Hg] No Primary Care Physician [facility] Work Phone: 05-24-2022 10:56-0400 Body height 170.18 cm No Primary Care Physician [facility] Work Phone: 05-24-2022 10:56-0400 Body weight 54.7 kg No Primary Care Physician [facility] Work Phone: 05-24-2022 01:48-0400 Body mass index (BMI) [Ratio] 18.8 kg/m2 No Primary Care Physician [facility] Work Phone: 05-24-2022 00:57-0400 Body temperature 97.6 [degF] No Primary Care Physician [facility] Work Phone: 05-24-2022 00:57-0400 Diastolic blood pressure 70 mm[Hg] No Primary Care Physician [facility] Work Phone: 05-24-2022 00:57-0400 Heart rate 90 /min No Primary Care Physician [facility] Work Phone: 05-24-2022 00:57-0400 Respiratory rate 11 /min No Primary Care Physician [facility] Work Phone: 05-24-2022 00:57-0400 SaO2% (BldA) [Mass fraction] 97 % No Primary Care Physician [facility] Work Phone: 05-24-2022 00:57-0400 Systolic blood pressure 120 mm[Hg] No Primary Care Physician [facility] Work Phone: 05-23-2022 23:21-0400 Body height 170.18 cm No Primary Care Physician [facility] Work Phone: 05-23-2022 23:21-0400 Body mass index (BMI) [Ratio] 18.8 kg/m2 No Primary Care Physician [facility] Work Phone: 05-23-2022 23:21-0400 Body weight 54.43 kg No Primary Care Physician [facility] Work Phone: 03-28-2022 19:52-0400 Diastolic blood pressure 71 mm[Hg] No Primary Care Physician [facility] Work Phone: 03-28-2022 19:52-0400 Heart rate 79 /min No Primary Care Physician [facility] Work Phone: 03-28-2022 19:52-0400 Respiratory rate 16 /min No Primary Care Physician [facility] Work Phone: 03-28-2022 19:52-0400 SaO2% (BldA) [Mass fraction] 97 % No Primary Care Physician [facility] Work Phone: 03-28-2022 19:52-0400 Systolic blood pressure 99 mm[Hg] No Primary Care Physician [facility] Work Phone: 03-28-2022 15:53-0400 Body height 170.18 cm No Primary Care Physician [facility] Work Phone: 03-28-2022 15:53-0400 Body mass index (BMI) [Ratio] 18.8 kg/m2 No Primary Care Physician [facility] Work Phone: 03-28-2022 15:53-0400 Body temperature 98.3 [degF] No Primary Care Physician [facility] Work Phone: 03-28-2022 15:53-0400 Body weight 54.43 kg No Primary Care Physician [facility] Work Phone: 03-26-2022 12:22-0400 Body mass index (BMI) [Ratio] 19.4 kg/m2 No Primary Care Physician [facility] Work Phone: 03-26-2022 12:22-0400 Body temperature 98.4 [degF] No Primary Care Physician [facility] Work Phone: 03-26-2022 12:22-0400 Body weight 56.24 kg No Primary Care Physician [facility] Work Phone: 03-26-2022 12:22-0400 Diastolic blood pressure 74 mm[Hg] No Primary Care Physician [facility] Work Phone: 03-26-2022 12:22-0400 Heart rate 92 /min No Primary Care Physician [facility] Work Phone: 03-26-2022 12:22-0400 Respiratory rate 14 /min No Primary Care Physician [facility] Work Phone: 03-26-2022 12:22-0400 SaO2% (BldA) [Mass fraction] 98 % No Primary Care Physician [facility] Work Phone: 03-26-2022 12:22-0400 Systolic blood pressure 126 mm[Hg] No Primary Care Physician [facility] Work Phone: 03-22-2022 12:18-0400 Body temperature 97.9 [degF] No Primary Care Physician [facility] Work Phone: 03-22-2022 12:18-0400 Diastolic blood pressure 78 mm[Hg] No Primary Care Physician [facility] Work Phone: 03-22-2022 12:18-0400 Heart rate 88 /min No Primary Care Physician [facility] Work Phone: 03-22-2022 12:18-0400 Respiratory rate 13 /min No Primary Care Physician [facility] Work Phone: 03-22-2022 12:18-0400 SaO2% (BldA) [Mass fraction] 99 % No Primary Care Physician [facility] Work Phone: 03-22-2022 12:18-0400 Systolic blood pressure 121 mm[Hg] No Primary Care Physician [facility] Work Phone: 03-20-2022 15:48-0400 Body height 170.18 cm No Primary Care Physician [facility] Work Phone: 03-20-2022 15:48-0400 Body weight 55 kg No Primary Care Physician [facility] Work Phone: 03-19-2022 22:46-0400 Body mass index (BMI) [Ratio] 19 kg/m2 No Primary Care Physician [facility] Work Phone: 03-19-2022 21:51-0400 Body temperature 97.4 [degF] [facility] Work Phone: 03-19-2022 21:51-0400 Diastolic blood pressure 89 mm[Hg] [facility] Work Phone: 03-19-2022 21:51-0400 Heart rate 95 /min [facility] Work Phone: 03-19-2022 21:51-0400 Respiratory rate 16 /min [facility] Work Phone: 03-19-2022 21:51-0400 SaO2% (BldA) [Mass fraction] 99 % [facility] Work Phone: 03-19-2022 21:51-0400 Systolic blood pressure 128 mm[Hg] [facility] Work Phone: 03-19-2022 20:28-0400 Body height 170.18 cm [facility] Work Phone: 03-19-2022 20:28-0400 Body mass index (BMI) [Ratio] 19 kg/m2 [facility] Work Phone: 03-19-2022 20:28-0400 Body weight 55.15 kg [facility] Work Phone: 02-12-2022 20:44-0400 Diastolic blood pressure 96 mm[Hg] [facility] Work Phone: 02-12-2022 20:44-0400 Heart rate 85 /min [facility] Work Phone: 02-12-2022 20:44-0400 Respiratory rate 15 /min [facility] Work Phone: 02-12-2022 20:44-0400 Systolic blood pressure 134 mm[Hg] [facility] Work Phone: 02-12-2022 19:07-0400 Body height 167.64 cm [facility] Work Phone: 02-12-2022 19:07-0400 Body mass index (BMI) [Ratio] 20.1 kg/m2 [facility] Work Phone: 02-12-2022 19:07-0400 Body temperature 97.9 [degF] [facility] Work Phone: 02-12-2022 19:07-0400 Body weight 56.69 kg [facility] Work Phone: 02-12-2022 19:07-0400 SaO2% (BldA) [Mass fraction] 98 % [facility] Work Phone: Encounters Encounter Date Encounter Type Care Provider Facility Start: 01-19-2025 End: 01-19-2025 Emergency department patient visit No Primary Care Physician -Emergency Department Work Phone: Start: 12-13-2024 End: 12-13-2024 Emergency department patient visit No Primary Care Physician -Emergency Department Work Phone: Start: 12-04-2024 End: 12-04-2024 Emergency department patient visit No Primary Care Physician -Emergency Department Work Phone: Start: 2024 End: 2024 Emergency department patient visit Dr. Lacho Joy DO -Emergency Department Work Phone: Start: 11-20-2024 End: 11-20-2024 Emergency department patient visit Dr. Graham Messina DO -Emergency Department Work Phone: Start: 11-12-2024 Non-patient / Non-visit Dr. Graham Tolbert DO [facility] Work Phone: Start: 11-11-2024 Non-patient / Non-visit Dr. Trang Valencia DO [facility] Work Phone: Start: 11-11-2024 ambulatory No Primary Car e Physician Facility:[facility] Start: 11-11-2024 End: 11-12-2024 Evaluation and management of inpatient Dr. Graham Tolbert DO -Intensive Care Unit Work Phone: Start: 10-22-2024 Non-patient / Non-visit Dr. Graham Tolbert DO [facility] Work Phone: Start: 10-21-2024 End: 10-23-2024 Evaluation and management of inpatient Dr. Graham Tolbert DO -Progressive Care Unit Work Phone: Start: 10-21-2024 ambulatory No Primary Car e Physician Facility:[facility] Start: 10-21-2024 Non-patient / Non-visit Dr. Troy Monroy MD [facility] Work Phone: Start: 09-19-2024 End: 09-19-2024 Emergency department patient visit Dr. Julius Matthews DO -Emergency Department Work Phone: Start: 09-07-2024 End: 09-07-2024 Emergency department patient visit Dr. Julius Matthews DO -Emergency Department Work Phone: Start: 08-03-2024 End: 08-03-2024 Emergency department patient visit No Primary Care Physician Facility:[facility] Start: 06-03-2024 End: 06-03-2024 Emergency department patient visit No Primary Care Physician Facility:[facility] Start: 06-02-2024 End: 06-02-2024 Emergency department patient visit Maximilian Bernstein Facility:[facility] Start: 10-31-2023 Non-patient / Non-visit No Primary Care Physician [facility] Work Phone: Start: 10-30-2023 Non-patient / Non-visit No Primary Care Physician [facility] Work Phone: Start: 10-29-2023 End: 10-31-2023 Evaluation and management of inpatient No Primary Care Physician [facility] 3 Work Phone: Start: 10-29-2023 Non-patient / Non-visit No Primary Care Physician [facility] Work Phone: Start: 10-15-2023 End: 10-15-2023 Emergency department patient visit [facility]Emergency Department Work Phone: Start: 09-01-2023 End: 09-01-2023 Emergency department patient visit [facility]Emergency Department Work Phone: Start: 08-28-2023 End: 08-06-2024 Telephone encounter Linda Jose MD Work Phone: General Surgery Comment on above: 09/05/2023 COLON MEDI NA + 10/03/2023 [facility] Start: 08-28-2023 End: 08-28-2023 ambulatory LINDA JOSE Facility:[facility] Start: 08-28-2023 End: 08-28-2023 Patient encounter procedure Linda Jose MD Work Phone: General Surgery Comment on above: Right inguinal herni a; Screening for colon cancer Start: 08-26-2023 End: 08-26-2023 ambulatory LINDA JOSE Facility:[facility] Start: 05-29-2023 End: 05-29-2023 Emergency department patient visit No Primary Care Physician [facility]-Emergency Department Work Phone: Start: 04-28-2023 Non-patient / Non-visit No Primary Care Physician [facility] Work Phone: Start: 04-27-2023 Non-patient / Non-visit No Primary Care Physician [facility] Work Phone: Start: 04-26-2023 End: 04-28-2023 Evaluation and management of inpatient No Primary Care Physician [facility] 3 Work Phone: Start: 04-26-2023 Non-patient / Non-visit No Primary Care Physician [facility] Work Phone: Start: 03-26-2023 End: 03-26-2023 Emergency department patient visit No Primary Care Physician [facility]Emergency Department Start: 02-23-2023 End: 02-24-2023 Emergency department patient visit No Primary Care Physician [facility]-Emergency Department Start: 01-22-2023 End: 01-22-2023 Emergency department patient visit No Primary Care Physician [facility]-Emergency Department Start: 12-24-2022 Non-patient / Non-visit No Primary Care Physician [facility] Start: 12-23-2022 End: 12-24-2022 Evaluation and management of inpatient No Primary Care Physician [facility] 3 Start: 12-15-2022 End: 12-15-2022 Emergency department patient visit [facility]Emergency Department Start: 12-01-2022 End: 12-02-2022 Emergency department patient visit [facility]Emergency Department Start: 11-03-2022 End: 11-03-2022 Emergency department patient visit No Primary Care Physician [facility]Emergency Department Start: 10-23-2022 End: 10-23-2022 Emergency department patient visit No Primary Care Physician [facility]-Emergency Department Start: 10-09-2022 End: 10-09-2022 Emergency department patient visit No Primary Care Physician [facility]Emergency Department Start: 09-09-2022 End: 09-09-2022 Emergency department patient visit No Primary Care Physician [facility]Emergency Department Start: 09-05-2022 End: 09-05-2022 Emergency department patient visit No Primary Care Physician [facility]Emergency Department Start: 08-14-2022 End: 08-14-2022 Emergency department patient visit No Primary Care Physician [facility]-Emergency Department Start: 07-26-2022 End: 07-26-2022 Emergency department patient visit No Primary Care Physician [facility]-Emergency Department Start: 07-18-2022 Non-patient / Non-visit No Primary Care Physician [facility] Start: 07-17-2022 Non-patient / Non-visit No Primary Care Physician [facility] Start: 07-16-2022 Non-patient / Non-visit No Primary Care Physician [facility] Start: 07-15-2022 End: 07-18-2022 Evaluation and management of inpatient No Primary Care Physician [facility] 3 Start: 07-09-2022 End: 07-09-2022 Emergency department patient visit No Primary Care Physician [facility]-Emergency Department Start: 05-26-2022 Non-patient / Non-visit No Primary Care Physician [facility] Start: 05-25-2022 Non-patient / Non-visit No Primary Care Physician [facility] Start: 05-24-2022 Non-patient / Non-visit No Primary Care Physician [facility] Start: 05-24-2022 End: 05-26-2022 Evaluation and management of inpatient No Primary Care Physician [facility]-Progressive Care Unit Start: 03-28-2022 End: 03-28-2022 Emergency department patient visit No Primary Care Physician [facility]-Emergency Department Start: 03-26-2022 End: 03-26-2022 Patient encounter procedure No Primary Care Physician [facility] Start: 03-22-2022 Non-patient / Non-visit No Primary Care Physician [facility] Start: 03-21-2022 Non-patient / Non-visit No Primary Care Physician [facility] Start: 03-20-2022 Non-patient / Non-visit No Primary Care Physician [facility] Start: 03-19-2022 End: 03-22-2022 Evaluation and management of inpatient [facility] 3 Start: 03-19-2022 Non-patient / Non-visit No Primary Care Physician [facility] Start: 02-12-2022 End: 02-12-2022 Emergency department patient visit [facility]Emergency Department Start: 06-05-2018 End: 06-06-2018 Emergency department patient visit ED PSYCHIATRY TEAM CONSULT [facility] Procedures Date Procedure Procedure Detail Performing Clinician Start: 01-19-2025 X-ray of chest, PA a nd lateral views No Primary Care Physician Start: 12-13-2024 X-ray of chest, PA a nd lateral views No Primary Care Physician Start: 2024 X-ray of chest, PA a nd lateral views No Primary Care Physician Start: 2024 SARS-CoV-2, Influenz a & RSV (PCR) No Primary Care Physician Start: 11-11-2024 Plain chest X-ray No Pr imary Care Physician Start: 11-11-2024 Nucleic acid assay No P rimary Care Physician Start: 11-11-2024 SARS-CoV-2, Influenz a & RSV (PCR) No Primary Care Physician Start: 10-22-2024 Gram stain microscopy N o Primary Care Physician Start: 10-22-2024 Legionella pneumophi la antigen assay No Primary Care Physician Start: 10-22-2024 Nucleic acid assay No P rimary Care Physician Start: 10-22-2024 Respiratory microbia l culture No Primary Care Physician Start: 10-22-2024 Streptococcus pneumo niae antigen assay No Primary Care Physician Start: 10-21-2024 CT angiography of ch est with contrast No Primary Care Physician Start: 10-21-2024 Plain chest X-ray No Pr imary Care Physician Start: 10-21-2024 SARS-CoV-2, Influenz a & RSV (PCR) No Primary Care Physician Start: 09-19-2024 X-ray of chest, PA a nd lateral views No Primary Care Physician Start: 09-07-2024 SARS-CoV-2, Influenz a & RSV (PCR) No Primary Care Physician Start: 09-07-2024 Plain chest X-ray No Pr imary Care Physician Start: 11-03-2022 CT of face No Primary Care Physician Start: 11-03-2022 CT of head without contrast No Primary Care Physician Start: 09-09-2022 Plain chest X-ray No Pr imary Care Physician Start: 09-05-2022 Plain chest X-ray No Pr imary Care Physician Start: 07-26-2022 Plain chest X-ray No Pr imary Care Physician Start: 03-28-2022 Plain chest X-ray No Pr imary Care Physician SARS-CoV-2 & FLU Ant igen (Rapid) No Primary Care Physician SARS-CoV-2 & FLU Ant igen (Rapid) No Primary Care Physician Viral antigen assay No Prima ry Care Physician Viral antigen assay No Prima ry Care Physician Plan of Treatment Date Care Activity Detail Author Start: 11-03-2032 Urine microalbumin profile DTaP,Tdap,Td Vaccine (3 - Td or Tdap) [facility] Start: 01-19-2025 [facility] Start: 12-13-2024 [facility] Start: 2024 [facility] Start: 2024 [facility] Start: 11-20-2024 [facility] Start: 11-12-2024 Patient discharge [facility] Start: 11-12-2024 End: 11-12-2024 [facility] Start: 11-12-2024 Care regimes management [facility] Start: 11-12-2024 Notification of physician [facility] Start: 11-11-2024 Assessment of risk o f venous thromboembolism [facility] Start: 11-11-2024 Catheterization of vein [facility] Start: 11-11-2024 Continuous pulse oximetry [facility] Start: 11-11-2024 Elevation of head of bed [facility] Start: 11-11-2024 Incentive spirometry [facility] Start: 11-11-2024 Inhalation therapy procedure [facility] Start: 11-11-2024 Insertion of cathete r into peripheral vein [facility] Start: 11-11-2024 Measuring intake and output [facility] Start: 11-11-2024 Oxygen therapy [facility] Start: 11-11-2024 Patient referral to dietitian [facility] Start: 11-11-2024 Physiotherapy of chest [facility] Start: 11-11-2024 Providing care accor ding to [facility] Start: 11-11-2024 Referral to service [facility] Start: 11-11-2024 Tobacco use cessatio n education [facility] Start: 11-11-2024 Vital signs measurements [facility] Start: 11-11-2024 End: 11-11-2024 [facility] Start: 11-11-2024 Following clinical pathway protocol [facility] Start: 11-11-2024 Admission procedure [facility] Start: 11-11-2024 Consultation [facility] Start: 11-11-2024 Dual pressure sponta neous ventilation support [facility] Start: 11-11-2024 Patient referral to [facility] Start: 10-22-2024 Patient discharge [facility] Start: 10-22-2024 Physiotherapy of chest [facility] Start: 10-21-2024 Following clinical pathway protocol [facility] Start: 10-21-2024 End: 10-21-2024 [facility] Start: 10-21-2024 Ambulation without limitation [facility] Start: 10-21-2024 Assessment of risk o f venous thromboembolism [facility] Start: 10-21-2024 Inhalation therapy procedure [facility] Start: 10-21-2024 Insertion of cathete r into peripheral vein [facility] Start: 10-21-2024 Measuring intake and output [facility] Start: 10-21-2024 Oxygen therapy [facility] Start: 10-21-2024 Providing care accor ding to [facility] Start: 10-21-2024 Referral to service [facility] Start: 10-21-2024 Admission procedure [facility] Start: 10-21-2024 Consultation [facility] Start: 10-21-2024 Patient referral to [facility] Start: 09-19-2024 [facility] Start: 09-19-2024 [facility] Start: 09-07-2024 End: 09-07-2024 [facility] Start: 06-02-2024 Covid-19 Vaccine ( season) Covid-19 Vaccine ( season) [facility] Start: 06-02-2024 Influenza vaccination Influenza Vacc ine (#1) [facility] Start: 10-31-2023 Patient discharge [facility] Start: 10-29-2023 Assessment of risk o f venous thromboembolism [facility] Start: 10-29-2023 Inhalation therapy procedure [facility] Start: 10-29-2023 Introduction of urin mainor catheter [facility] Start: 10-29-2023 Notification of physician [facility] Start: 10-29-2023 Provision of activit y privileges [facility] Start: 10-29-2023 Referral to service [facility] Start: 10-29-2023 Vital signs measurements [facility] Start: 10-29-2023 End: 10-29-2023 [facility] Start: 10-29-2023 Following clinical pathway protocol [facility] Start: 10-29-2023 Hospital admission, emergency, from emergency room, medical nature [facility] Start: 10-29-2023 Admission procedure [facility] Start: 10-29-2023 [facility] Start: 10-15-2023 [facility] Start: 09-01-2023 [facility] Start: 06-02-2023 Covid-19 Vaccine ( season) Covid-19 Vaccine ( season) [facility] Start: 06-02-2023 Influenza vaccination Influenza Vacc ine (#1) [facility] Start: 04-28-2023 Patient discharge [facility] Start: 04-27-2023 [facility] Start: 04-26-2023 Following clinical pathway protocol [facility] Start: 04-26-2023 Assessment of risk o f venous thromboembolism [facility] Start: 04-26-2023 Inhalation therapy procedure [facility] Start: 04-26-2023 Introduction of urin mainor catheter [facility] Start: 04-26-2023 Notification of physician [facility] Start: 04-26-2023 Oxygen therapy [facility] Start: 04-26-2023 Provision of activit y privileges [facility] Start: 04-26-2023 Referral to service [facility] Start: 04-26-2023 Tobacco use cessatio n education [facility] Start: 04-26-2023 Vital signs measurements [facility] Start: 04-26-2023 [facility] Start: 04-26-2023 Admission procedure [facility] Start: 04-26-2023 Hepatitis B surface antigen measurement [facility] Start: 04-26-2023 Hepatitis C antibody measurement [facility] Start: 04-26-2023 Procedure [facility] Start: [facility]26-[facility]: 12-24-[facility] Patient discharge [facility] Start: 12-23-2022 Assessment of risk o f venous thromboembolism [facility] Start: 12-23-2022 Inhalation therapy procedure [facility] Start: 12-23-2022 Introduction of urin mainor catheter [facility] Start: 12-23-2022 Notification of physician [facility] Start: 12-23-2022 Oxygen therapy [facility] Start: 12-23-2022 Provision of activit y privileges [facility] Start: 12-23-2022 Referral to service [facility] Start: 12-23-2022 Vital signs measurements [facility] Start: 12-23-2022 [facility] Start: 12-23-2022 Following clinical pathway protocol [facility] Start: 12-23-2022 Measurement of occul t blood in stool specimen using immunoassay [facility] Start: 12-23-2022 Admission procedure [facility] Start: 12-23-2022 Vitamin B12 measurement [facility] Start: 12-23-2022 Patient referral to dietitian [facility] Start: 11-03-2022 Simple repair f/e/e/ n/l/m 2.5cm/< RPR F/E/E/N/L/M 2.5 CM/< [facility] Start: 10-02-2022 Depression Assessment Depression Ass [facility] Start: 07-26-2022 Inhalation therapy procedure [facility] Start: 07-18-2022 Patient discharge [facility] Start: 07-16-2022 Following clinical pathway protocol [facility] Start: 07-15-2022 Assessment of risk o f venous thromboembolism [facility] Start: 07-15-2022 Fall prevention [facility] Start: 07-15-2022 Inhalation therapy procedure [facility] Start: 07-15-2022 Insertion of cathete r into peripheral vein [facility] Start: 07-15-2022 Introduction of urin mainor catheter [facility] Start: 07-15-2022 Notification of physician [facility] Start: 07-15-2022 Providing care accor ding to standard [facility] Start: 07-15-2022 Provision of activit y privileges [facility] Start: 07-15-2022 Referral to service [facility] Start: 07-15-2022 Tobacco use cessatio n education [facility] Start: 07-15-2022 Vital signs measurements [facility] Start: 07-15-2022 [facility] Start: 07-15-2022 Admission procedure [facility] Start: 07-15-2022 Verification routine [facility] Work Phone: Start: 07-15-2022 [facility] Work Phone: Start: 07-15-2022 Patient referral to dietitian [facility] Start: 07-09-2022 Pressurized/nonpress urize d inhalation treatment AIRWAY INHALATION TREATMENT [facility] Start: 05-26-2022 Patient discharge [facility] Work Phone: Start: 05-24-2022 Provision of activit y privileges [facility] Work Phone: Start: 05-24-2022 Assessment of risk o f venous thromboembolism [facility] Work Phone: Start: 05-24-2022 Insertion of cathete r into peripheral vein [facility] Work Phone: Start: 05-24-2022 Providing care accor ding to standard [facility] Work Phone: Start: 05-24-2022 [facility] Work Phone: Start: 05-24-2022 Following clinical pathway protocol [facility] Work Phone: Start: 05-24-2022 Verification routine [facility] Work Phone: Start: 05-24-2022 Admission procedure [facility] Work Phone: Start: 05-24-2022 Patient referral to dietitian [facility] Work Phone: Start: 03-28-2022 [facility] Work Phone: Start: 03-22-2022 Patient discharge [facility] Work Phone: Start: 03-19-2022 Following clinical pathway protocol [facility] Work Phone: Start: 03-19-2022 Assessment of risk o f venous thromboembolism [facility] Work Phone: Start: 03-19-2022 Catheterization of vein [facility] Work Phone: Start: 03-19-2022 Insertion of cathete r into peripheral vein [facility] Work Phone: Start: 03-19-2022 Providing care accor ding to standard [facility] Work Phone: Start: 03-19-2022 Referral to service [facility] Work Phone: Start: 03-19-2022 [facility] Work Phone: Start: 03-19-2022 Admission procedure [facility] Work Phone: Start: 03-19-2022 Verification routine [facility] Work Phone: Start: 03-19-2022 Patient referral to dietitian [facility] Work Phone: Start: 02-12-2022 Patient discharge [facility] Work Phone: Start: 2020 Cologuard (FIT-DNA) Cologuard (FIT-D NA) [facility] Start: 2020 Colonoscopy Colonoscopy [facility] Start: 2020 Colorectal Cancer Screening Colorectal Cancer Screening [facility] Start: [address] Colonography [facility] Start: 2020 Diabetes Screening Diabetes Screenin g [facility] Start: 2020 Fecal Occult Blood Fecal Occult Bloo d [facility] Start: 2020 Screening for malign ant neoplasm of colon [facility] Start: 2020 Sigmoidoscopy Sigmoidoscopy [facility] Start: 2010 Lipid 1996 panel - S davi or Plasma Lipid Screening [facility] Start: 2010 Lipid panel Lipid Screening [facility] Start: 1994 Hepatitis B Vaccine (1 of 3 - 19+ 3-dose series) Hepatitis B Vaccine (1 of 3 - 19+ 3-dose series) [facility] Start: 1993 Anxiety Screening Anxiety Screening [facility] Start: 1993 Depression Screening Depression Scre [facility] Start: 1993 Hepatitis C Screening Hepatitis C [facility] Start: 1993 Hepatitis C screening Hepatitis C [facility] Start: 1993 HIV Screening HIV Screening [facility] Start: 1993 HIV screening HIV Screening [facility] Start: 1975 Hepatitis B Vaccine (1 of 3 - 3-dose series) Hepatitis B Vaccine (1 of 3 - 3-dose series) [facility] Amphetamine [Mass/vo lume] in Urine [facility] Benzodiazepine measurement, urine [facility] Cocaine measurement, urine [facility] Hepatitis B virus bazan rface IgG Ab [Presence] in Serum [facility] HIV 1+2 Ab+HIV1 p24 Ag [Presence] in Serum or Plasma by Immunoassay [facility] Measurement of 3,4-methylenedioxymethamp hetamine in urine [facility] Methadone measuremen t, urine [facility] Patient Education [facility] Work Phone: Patient referral [facility] Work Phone: PCR for Hepatitis C [facility] pH of Urine [facility] Phencyclidine [Prese nce] in Urine [facility] End: 08-28-2024 Screening colonoscopy COLONOSCOPY SCREENING Endoscopy Routine Screening for colon cancer 1 Occurrences starting 08/28/2023 until 08/28/2024 [facility] Work Phone: Comment on above: 1 Occurrences starti ng 08/28/2023 until 08/28/2024 Treponema sp Ab [Presence] in Serum [facility] Urine barbiturate measurement [facility] Urine cannabinoid measurement [facility] Urine opiate measurement [facility] Immunizations Immunization Date Immunization Notes Care Provider Fa cility 10-21-2024 influenza, injectabl e, quadrivalent, preservative free No Primary Care Physician [facility] 11-03-2022 tetanus toxoid, redu kathryn diphtheria toxoid, and acellular pertussis vaccine, adsorbed No Primary Care Physician [facility] 03-17-2022 Covid (Moderna) No Primary C are Physician [facility] 03-16-2022 Covid (Moderna) No Primary C are Physician [facility] 05-22-2021 Covid (Moderna) [facility] 02-22-2021 Covid (Moderna) [facility] 09-23-2020 influenza, injectabl e, quadrivalent, preservative free [facility] 09-23-2020 influenza, seasonal, injectable [facility] 09-23-2020 influenza, seasonal, injectable, preservative free Linda Jose MD Work Phone: [facility] Work Phone: 09-23-2020 influenza virus vacc ine, unspecified formulation Linda Jose MD Work Phone: [facility] 02-25-2017 tetanus toxoid, redu kathryn diphtheria toxoid, and acellular pertussis vaccine, adsorbed [facility] 08-02-2013 pneumococcal polysaccharide vaccine, 23 valent Linda Jose MD Work Phone: [facility] Work Phone: 08-02-2013 Pneumococcal Vaccine [facility] Work Phone: 08-02-2013 pneumococcal vaccine , unspecified formulation No Primary Care Physician [facility] Payers Date Payer Category Payer Self-pay [id number] 2022 Medicaid [employer] [id number] 2022-Present [phone] [address] [place] [address] Medicaid [id number] 2013 Medicaid [id number] 2013 Unknown [id number] Unknown [id number] Unknown [id number] Unknown [id number] Unknown [id number] Unknown [id number] Unknown [id number] Unknown [id number] Unknown [id number] Unknown [id number] Unknown [id number] Unknown [id number] Unknown [id number] Unknown [id number] Unknown [id number] Unknown [id number] Unknown [id number] Social History Date Type Detail Facility Start: 02-12-2022 End: 10-29-2023 Tobacco smoking status NHIS Unknown if ever smoked [facility] Start: 11-22-2020 None [facility] Start: 12-05-2020 Marijuana [facility] Start: 11-22-2020 Homeless [facility] Start: 02-20-2021 Non-smoker [facility] Start: 1975 Sex Assigned At Male W [facility] Start: 08-26-2023 End: 01-19-2025 Tobacco smoking status NHIS Never smoked tobacco [facility] Start: 08-26-2023 Tobacco use and exposure Former smokeless tobacco user [facility] Start: 08-28-2023 Alcohol intake Current drinke r of alcohol (finding) [facility] Start: 08-28-2023 History of Social function [facility] Start: 08-28-2023 Tobacco use panel [facility] National Score (1-100), lower number is lower risk 89 [facility] Start: 08-26-2023 Tobacco Comment [facility] Start: 1975 Sex Assigned At Not on file [facility] Start: 12-13-2024 End: 01-19-2025 Sex Male (finding) [facility] Goals Date Patient Goal Desired Activity /State Functional Status Date Assessment Result Facility 11-12-2024 Functional status Ambulates [facility] Work Phone: 10-23-2024 Functional status Ambulates [facility] Work Phone: 10-31-2023 Functional status Up ad laverne [facility] Work Phone: 04-28-2023 Functional status Ambulates;Up a d laverne;Bathroom Privilege [facility] Work Phone: 04-28-2023 Functional status Ambulates;Up a d laverne;Bathroom Privilege [facility] Work Phone: 12-24-2022 Functional status Ambulates [facility] Work Phone: 07-18-2022 Functional status Activity Ability [facility] Work Phone: 07-17-2022 Functional status Up ad laverne [facility] Work Phone: 05-26-2022 Functional status Ambulates;Up ad laverne [facility] Work Phone: 03-22-2022 Functional status Activity Ability [facility] Work Phone: 03-21-2022 Functional status Ambulates;Up ad laverne [facility] Work Phone: Mental Status Date Assessment Result Facility 11-12-2024 Cognitive function Voice/Name [facility] Work Phone: 10-22-2024 Cognitive function Voice/Name [facility] Work Phone: 10-31-2023 Cognitive function Voice/Name [facility] Work Phone: 10-15-2023 Cognitive function Level Of Cons ciousness Awake;Alert;Appropriate;Follow s Commands [facility] Work Phone: 09-01-2023 Cognitive function Level Of Cons ciousness Awake;Alert;Appropriate;Follow s Commands [facility] Work Phone: 04-28-2023 Cognitive function Voice/Name [facility] Work Phone: 02-23-2023 Cognitive function Level Of Cons ciousness Awake;Alert;Appropriate;Follow s Commands [facility] Work Phone: 12-24-2022 Cognitive function Speech Pattern Garbled [facility] Work Phone: 12-24-2022 Cognitive function Appropriate;Cooperativ e [facility] Work Phone: 12-01-2022 Cognitive function Level Of Cons ciousness Awake;Alert;Appropriate;Follow s Commands [facility] Work Phone: 10-23-2022 Cognitive function Level Of Cons ciousness Awake;Alert;Appropriate;Follow s Commands [facility] Work Phone: 08-14-2022 Cognitive function Level Of Cons ciousness Awake;Alert;Appropriate;Follow s Commands [facility] Work Phone: 07-18-2022 Cognitive function Guarded [facility] Work Phone: 07-17-2022 Cognitive function Mood Description Appro priate [facility] Work Phone: 05-26-2022 Cognitive function Voice/Name [facility] Work Phone: 03-22-2022 Cognitive function Drowsy [facility] Work Phone: 03-21-2022 Cognitive function Anxious [facility] Work Phone: 02-12-2022 Cognitive function Level Of Cons ciousness Awake;Alert;Appropriate;Follow s Commands [facility] Work Phone: Clinical Notes 11-03-2022 to 01-19-2025 Note Date & Type Note Facility 01-19-2025 Radiology Diagnostic study note [facility] Imaging Services [address] [place] [address] Chest PA and Lateral MR#: [id number] Acct: [id number] Name: MICHAEL MCNEILL SANTOS Rep #: [id number] : 1975 M 49 From: Shelli John MD PCP: Care Physician,No Primary Status: REG ER Study:Chest PA and Lateral Date of Exam: 01/19/25 Exam# [id number] Ordering Dr: Henderso n,Yee PA PROCEDURE: CHEST PA AND LATERAL 01/19/2025 REASON FOR EXAM: WHEEZING, COUGH TECHNIQUE: Frontal and lateral views of the chest. COMPARISON: Chest radiograph 12/13/2024. FINDINGS: Hardware: None. Heart: The heart size is normal. Mediastinum: The mediastinal contour is unremarkable. Lungs: Stable findings of emphysema with pleural-parenchymal scarring. No focalconsolidation, pleural effusion or pneumothorax. Stable right midlung pulmonary nodule, which may correlate to patient's nipple. Bones: Degenerative changes are identified within the thoracic spine. RAD/Chest PA and Lateral IMPRESSION: NO SIGNIFICANT CHANGE SINCE THE PRIOR EXAM. Reading Location: [id number] CC: MALIA Moctezuma; No Primary Care Physician ~ Director Of Food And Nutrition Services: Signed [facility] 01-19-2025 Hospital Discharg e instructions Additional Instructions Follow-up with the [facility] across the street since you do not have a PCP. Their phone number is [phone]. [facility] Work Phone: 12-13-2024 Discharge summary [facility] 12-13-2024 Radiology Diagnostic study note [facility] Imaging Services [address] [place] [address] Chest PA and Lateral MR#: [id number] Acct: [id number] Name: MICHAEL MCNEILL SANTOS Rep #: [id number] : 1975 M 49 From: Benjamin Alvarez MD PCP: Care Physician,No Primary Status: REG ER Study:Chest PA and Lateral Date of Exam: 12/13/24 Exam# [id number] Ordering Dr: Homar Nieves MD PROCEDURE: CHEST PA AND LATERAL REASON FOR EXAM: COUGH TECHNIQUE: Frontal lateral radiographs were obtained. COMPARISON: Comparison is made with prior study dated 2024. FINDINGS: Hyperinflation and findings suggestive of COPD. Persistent pleural-parenchymal changes at the right lung apex. This has slightly worsened as compared to prior study. There is a faint 10.9 mm by 8.9 mm nodule in the lateral right midlung. Correlation withCT scan is recommended. RAD/Chest PA and Lateral IMPRESSION: Persistent and slightly worsening of the right apical pleural-parenchymal changes. Findings suggestive of a 8.9 mm x 10.9 mm nodule in the lateral aspect of the right midlung. Correlation with CT recommended. Reading Location: [place] [address] CC: Dr. Homar Nieves MD; No Primary Care Physician ~ Director Of Food And Nutrition Services: Signed [facility] 11-12-2024 Note [facility] Medical Records Department [address] [place] [address] Discharge Summary 11/12/24 1140 MR#: [id number] Acct: [id number] Name: MICHAEL MCNEILL SANTOS Rep #: [id number] : 1975 48 From: Graham Tolbert DO PCP: Care Physician,No Primary Status:DIS IN Location: ICU [id number] Providers Date of Admission: 11/11/24 Primary Care Physician: No Primary Care Phys Reason For Visit: ACUTE HYPOXIC AND HYPERCAPNIC RESPIRATORY FAILURE Diagnosis Discharge Diagnosis (1) Asthma exacerbation: Status: Acute Code(s): J45.901 - Unspecified asthma with (acute) exacerbation (2) Acute respiratory failure with hypoxia and hypercapnia: Status: Acute Code(s): J96.01 - Acute respiratory failure with hypoxia; J96.02 - Acute respiratory failure with hypercapnia (3) Hyperglycemia: Status: Acute Code(s): R73.9 - Hyperglycemia, unspecified Plan Acute hypoxic and hypercapnic respiratory failure * secondary to acute exacerbation of asthma * COVID/flu/RSV, respiratory panel negative * was on BiPAP, now on room air. Check home oxygen evaluation. * Continue steroids and BDs. * Will discharge for patient to continue with his albuterol and steroids. Recommend that you do follow-up with pulmonology. Hyperglycemia * likley reactive given respiratory distress and now steroids. Likely has DM2. Advised dietary restrictions. I would have significant concerns about the patient using glucometer given perceived reluctance utilizing it. Patient will need a primary care doctor to follow-up with the furthering foresees measures. Homelessness: Complicates long-term care and recovery. Social work case management to assist. Suspected malnutrition, ruled out BMI 20 Polysubstance abuse: * complicates care and recovery. Methamphetamine abuse/alcohol abuse/THC use DVT prophylaxis -Subcu Lovenox 40 daily Medications at Discharge Home Medications albuterol sulfate 90 mcg/actuation aerosol inhaler 1 puff inhalation Q6H PRN shortness of breath or wheezing #8.5 grams 11/12/24 guaifenesin 1,200 mg tablet, extended release 12 hr (Mucus Relief ER) 1,200 mg PO BID #10 tabs 11/12/24 multivitamin 1 tab PO LUNCH #0 tabs 11/12/24 prednisone 20 mg tablet 40 mg (2 x 20 mg) PO DAILY #10 tabs 11/12/24 Hospital Course Operations None Procedures None Summary of Care Provided Minutes Spent on Discharge: 32 Hospital Course: Patient presents with acute hypoxic and hypercapnic respiratory failure secondary to asthma exacerbation. Patient was placed on BiPAP and improved rapidly to the point where he was on room air. Ambulatory pulse ox was performed and patient did very well with that. Patient said that he ran out of his albuterol before coming in here. He still has wheezes so patient has been on steroids and will continue that with prednisone burst upon discharge. I advised patient follow-up with pulmonary as outpatient. Patient did have hyperglycemia. I am not going to be discharging him with a glucometer given the concern for reluctance of use. Do recommend the patient follow with primary care doctor to further enforce these measures. His hemoglobin A1c was 6 setting is reasonable not to continue with that but courage dietary measures. Medical Records Data Homelessness:: Sheltered Weight / BMI Weight Weight: 56.1 kg Body Mass Index (BMI) 19.8 ABG / Lab / Microbiology Data 11/12/24 03:00 11/12/24 03:00 Laboratory: Laboratory Results - last 24 hr 11/11/24 15:43: WBC 11.4 H, RBC 4.61, Hgb 14.5, Hct 44.1, MCV 95.7 H, MCH 31.5, MCHC 32.9, RDW Std Deviation 46.2 H, RDW Coeff of Bridger 13.2, Plt Count 400, MPV 9.2, Immature Gran % (Auto) 0.300, Neut % (Auto) 67.3, Lymph % (Auto) 23.1, Nye % (Auto) 5.6, Eos % (Auto) 2.9, Baso % (Auto) 0.8, Absolute Neuts (auto) 7.7, Absolute Lymphs (auto) 2.64, Nucleated RBC % 0, Sodium 142, Potassium 4.0, Chloride 102, Carbon Dioxide 32.0, Anion Gap 9, BUN 19 H, Creatinine 1.05, Estim Creat Clear Calc 70.10, Est GFR (MDRD) Af Amer TNP, Est GFR (MDRD) Non-Af TNP, BUN/Creatinine Ratio 18.1, Glucose 202 H, Hemoglobin A1c 6.0 H, Calcium 9.2 11/12/24 03:00: WBC 7.5, RBC 3.83 L, Hgb 12.2 L, Hct 35.6 L, MCV 93.0, MCH 31.9, MCHC 34.3, RDW Std Deviation 45.3 H, RDW Coeff of Bridger 13.3, Plt Count 267, MPV 9.3, Immature Gran % (Auto) 0.400, Neut % (Auto) 94.5 H, Lymph % (Auto) 3.5 L, Nye % (Auto) 1.5, Eos % (Auto) 0.0, Baso % (Auto) 0.1, Absolute Neuts (auto) 7.1, Absolute Lymphs (auto) 0.26 L, Nucleated RBC % 0, Sodium 139, Potassium 3.9, Chloride 106, Carbon Dioxide 25.0, Anion Gap 8, BUN 22 H, Creatinine 0.78, Estim Creat Clear Calc 91.57, Est GFR (MDRD) Af Amer 136, Est GFR (MDRD) Non-Af 112, BUN/Creatinine Ratio 28.2 H, G lucose 197 H, Calcium 8.8, Phosphorus 2.9, Magnesium 2.1, Total Bilirubin 0.30, AST 18, ALT 30, A lkaline Phosphatase 41 L, Total Protein (more content not included)... [facility] 10-22-2024 Note [facility] Medical Records Department [address] [place] [address] Discharge Summary 10/22/24 1502 MR#: [id number] Acct: [id number] Name: MICHAEL MCNEILL SANTOS Rep #: [id number] : 1975 48 From: Graham Tolbert DO PCP: Care Physician,No Primary Status:ADM IN Location: [facility] [id number] Providers Date of Admission: 10/21/24 Primary Care Physician: No Primary Care Phys Reason For Visit: RESPIRATORY FAILURE Diagnosis Discharge Diagnosis (1) Methamphetamine abuse: Status: Acute Code(s): F15.10 - Other stimulant abuse, uncomplicated (2) Acute asthma exacerbation: Status: Acute Code(s): J45.901 - Unspecified asthma with (acute) exacerbation Plan Acute hypoxic and hypercapnic respiratory failure * Secondary to acute exacerbation of asthma and pneumonia * Patient was on BiPAP at 1 point and then has since improved significantly down to room air. * on methylpred and BDs. * Patient did not require oxygen with home oxygen evaluation. * Will discharge with prednisone. Suspected pneumococcal pneumonia * RUL * resp, COVID/influenza/RSV negative. * check SCx. strep and legionella antigens negative. * PEP * Received CTX and azithromycin in the ED, reinitiated on the floor. Will discharge with Augmentin. . DVT prophylaxis???low molecular weight heparin Medications at Discharge Home Medications albuterol sulfate 90 mcg/actuation breath activated powder inhaler 2 inh inhalation Q6H PRN shortness of breath or wheezing #1 ea 09/07/24 amoxicillin 875 mg-potassium clavulanate 125 mg tablet 1 tab PO Q12H #10 tabs 10/22/24 prednisone 20 mg tablet 40 mg (2 x 20 mg) PO DAILY #10 tabs 10/22/24 Hospital Course Operations None Procedures None Summary of Care Provided Hospital Course: Greater than 30 minutes spent on discharge. Patient presents with acute respiratory failure. Patient was hypoxic in the field and had an ABG that showed elevated pCO2. Patient was placed on BiPAP and quickly improved. CTA of the chest showed no pulmonary embolism but right-sided right upper lobe infiltrate. Patient received azithromycin and ceftriaxone as well as started on steroids. Patient has improved and ambulatory pulse ox today show that he did not require any oxygen even with ambulation. Is unclear, the patient's drug and alcohol history, if that he may have ingested something such as a narcotic that may lead to respiratory depression. Drug screen was not performed here. Patient will be discharged with Augmentin, and prednisone. Patient takes albuterol at home. Medical Records Data Homelessness:: Sheltered Weight / BMI Weight Weight: 55 kg Body Mass Index (BMI) 19.0 ABG / Lab / Microbiology Data 10/22/24 05:33 10/22/24 05:33 Laboratory: Laboratory Results - last 24 hr 10/21/24 16:07: WBC 9.8, RBC 4.35 L, Hgb 13.8, Hct 41.5, MCV 95.4 H, MCH 31.7, MCHC 33.3, RDW Std Deviation 44.6 H, RDW Coeff of Bridger 12.6, Plt Count 362, MPV 9.3, Immature Gran % (Auto) 0.200, Neut % (Auto) 64.3, Lymph % (Auto) 20.6, Nye % (Auto) 6.9, Eos % (Auto) 7.3 H, Baso % (Auto) 0.7, Absolute Neuts (auto) 6.3, Absolute Lymphs (auto) 2.02, Nucleated RBC % 0, D-Dimer Quant (PE/DVT) 1.14 H*, Sodium 142, Potassium 3.5, Chloride 101, Carbon Dioxide 37.0 H, Anion Gap 4 L, BUN 28 H, Creatinine 0.82, Estim Creat Clear Calc 90.07, Est GFR (MDRD) Af Amer 128, Est GFR (MDRD) Non-Af 106, BUN/Creatinine Ratio 34.1 H, Glucose 146 H, Calcium 9.3, Troponin I High Sens 8, B-Natriuretic Peptide 31.1 10/22/24 05:33: WBC 5.3, RBC 3.71 L, Hgb 11.9 L, Hct 35.4 L, MCV 95.4 H, MCH 32.1 H, MCHC 33.6, RDW Std Deviation 44.8 H, RDW Coeff of Bridger 12.9, Plt Count 264, MPV 9.5, Immature Gran % (Auto) 0.400, N eut % (Auto) 92.3 H, Lymph % (Auto) 6.1 L, Nye % (Auto) 1.0, Eos % (Auto) 0.0, Baso % (Auto) 0.2, Absolute Neuts (auto) 4.9, Absolute Lymphs (auto) 0.32 L, Nucleated RBC % 0, Sodium 138, Potassium 4.2, Chloride 110 H, Carbon Dioxide 25.0, Anion Gap 4 L, BUN 22 H, Creatinine 0.63 L, Estim Creat Clear Calc 111.55, Est GFR (MDRD) Af Amer 173, Est GFR (MDRD) Non-Af 143, BUN/Creatinine Ratio 34.7 H, Glucose 179 H, Calcium 8.8 Microbiology: Microbiology 10/22/24 09:50 Urine, Clean Catch Legionella Antigen - Final 10/22/24 09:50 Urine, Clean Catch Streptococcus pneumoniae Antigen (M - Final 10/22/24 04:03 Mucosa - Nasopharyngeal Respiratory Panel (PCR) - Final 10/21/24 16:14 Mucosa - Nose SARS-CoV-2, Influenza RSV (PCR) - Final ABG: ABG 10/21/24 16:27 Specimen Type ART Sample Site L Brach pH 7.34 L Bicarbonate Actual 35.7 H Total CO2 38 Base Excess 10 H O2 Saturation 100 H O2 % 60.0 ABG pCO2 66.3 H ABG pO2 343 H* Connie Test Positive Respiration Rate 12 O2 Delivery Device BiPAP Vent Mode Not entered POC PEEP 6 Crit Call To/Read Back Yes (more content not included)... [facility] 10-21-2024 Evaluation note Diagnosis Onset Date Resolution Acute asthma exacerbation resolved October 21, 2024 7:37pm Methamphetamine abuse resolved Oct 7:37pm Acute respiratory failure with hypoxia and hypercapnia acute November 11 5:09pm Asthma exacerbation acute u mainor2024 5:09pm Hyperglycemia acute November 112024 5:09pm Leukocytosis acute November 5:09pm Respiratory acidosis acute 2024 5:09pm [facility] Work Phone: 1(882) 113-368201-20-2025 [facility] Medical Records Department [address] [place] [address] History Physical Exam 10/21/241925 MR#: [id number] Acct: [id number] Name: MICHAEL MCNEILL SANTOS Rep #: [id number] : 1975 48 From: Troy Monroy MD PCP: Care Physician,No Primary Status:REG ER Location: ED HPI - General General Date of Admission: 10/21/24 Date of Service: 10/21/24 Chief Complaint: Shortness of breath HPI Narrative MICHAEL MCNEILL, is a 48 M who presents with chief complaint of shortness of breath. Onset of symptoms began over the past week. Patient has significant past medical history of asthma and drug abuse including methamphetamine which she admits to using yesterday, he denies smoking cigarettes and has stopped smoking marijuana. Upon arrival to the hospital patient's oxygen saturation was in the mid 70% range and he does not use oxygen at home. Patient required BiPAP therapy and was then weaned down to nasal cannula oxygen at 2 L to maintain his oxygen saturation greater than 90%. Patient continues to feel tired but states he has improved since arriving to the hospital after several breathing treatments. Patient will be admitted to the progressive care unit for impending respiratory failure and management of an asthma exacerbation. Patient denies any nausea, vomiting, diarrhea and fevers or chills. COVID and influenza testing are negative and chest x-ray is equivocal as well as CBC. [facility] Medical History (Updated 10/21/24 @ 19:[address] Troy Monroy MD) Methamphetamine abuse Ankle fracture, left Bipolar disorder Depression Anxiety Past history of chewing tobacco use Asthma with COPD Anxiety and depression Inguinal hernia bilateral, non-recurrent Hypertension Stroke/cerebrovascular accident Alcohol abuse Bulla of lung GERD (gastroesophageal reflux disease) Home Medications ???Medication ???Instructions ???Recorded ???Last Taken ???Type albuterol sulfate 90 mcg/actuation 2 inh inhalation Q6H PRN shortness 09/07/24 Unknown Rx breath activated powder inhaler of breath or wheezing #1 ea Allergy/AdvReac Type Severity Reaction Status Date / Time No Known Allergies Allergy Verified 10/21/24 16:02 Family History Father Alcoholism CAD (coronary artery disease) Heart disease Hypertension Mother Alcoholism Seizures Surgical History History of ankle surgery Social History housing: homeless Smoking Status: Never smoker Smokeless tobacco user: chewing tobacco how long ago did patient quit smoking: Notes no cig tob use, prior chew only but no current, ongoing cannabis use. alcohol intake: current details: 5-6 beers daily, occasionally whiskey. substance use type: marijuana, opiates and methamphetamine ROS Constitutional Constitutional: Denies chills or fever(s) Eyes Eyes: Denies blurry vision ENT HEENT: Denies abnormal hearing Cardiovascular Cardiovascular: Denies chest pain Respiratory/Chest Respiratory/Chest: Reports cough, shortness of breath at rest and wheezing Gastrointestinal Gastrointestinal: Denies abdominal pain Genitourinary Genitourinary: Denies dysuria Musculoskeletal Musculoskeletal: Denies back pain Integumentary Integumentary: Denies dry skin Neurologic Neurologic: Denies abnormal gait Psychiatric Psychiatric: Reports anxiety and depression Vital Signs Vital Signs Vital Signs: 10/21/24 16:02 10/21/24 16:05 10/21/24 16:05 Temperature 97.8 F 97.6 F L Temperature Source Temporal Oral Pulse Rate 105 H 107 H 106 H Respiratory Rate 30 H 28 H 20 H Respiratory Effort Respiratory Depth Respiratory Pattern Blood Pressure 160/108 H Blood Pressure Mean 125 Pulse Ox 100 100 Oxygen Delivery Method Non-Rebreather Bi-pap Oxygen Flow Rate (L/min) 15 Fraction of Inspired Oxygen (FIO2) 10/21/24 16:05 10/21/24 16:07 10/21/24 16:08 Temperature Temperature Source Pulse Rate 106 H Respiratory Rate 20 H Respiratory Effort Short of Breath Accessory Muscle Use Head Bobbing Respiratory Depth Normal Respiratory Pattern Tachypnea Blood Pressure Blood Pressure Mean Pulse Ox 100 100 Oxygen Delivery Method Bi-pap Bi-pap Oxygen Flow Rate (L/min) Fraction of Inspired Oxygen (FIO2) 60 10/21/24 16:30 10/21/24 17:05 10/21/24 17:05 Temperature 98.1 F Temperature Source Temporal Pulse Rate 99 99 Respiratory Rate 17 17 Respiratory Effort Respiratory Depth Respiratory Pattern Blood Pressure 125/75 H 125/75 H Blood Pressure Mean 91 91 Pulse Ox 99 99 Oxygen Delivery Method Bi-pap Bi-pap Oxygen Flow Rate (L/min) Fract (more content not included)...[facility]01-30-2024 Progress note Author Graham Tolbert [facility] October 31, 2023 10:15am Note Date/Time October 31, 2023 7 :34am [facility] Medical Records Department [address] [place] [address] Progress Note - Hospitalist 10/31/23 0731 MR#: [id number] Acct: [id number] Name: MICHAEL MCNEILL SANTOS Rep #:[id number] : 1975 47 From: Graham Tolbert DO PCP: Care Physician,No Primary Status :ADM IN Location: MS3 MH435-8 Reason for Visit Reason for Visit: Diagnoses Alcohol dependence, uncomplicated (10/29/23) Subjective Subjective No events overnight. Objective Data Objective Data Vital Signs: Vital Signs Temp Pulse Resp BP Pulse Ox O2 Del Method 36.6 C 83 16 109/74 96 Room Air 10/31/23 03:27 10/31/23 03:27 10/31/23 03:27 10/31/23 03:27 10/30/23 19:46 10/31/23 03:27 Oxygen Delivery Method Room Air Weight: 60.498 kg Body Mass Index (BMI) 21.5 Intake & Output: Intake and Output for Last 24 Hours 10/29/23 10/30/23 10/31/23 23:59 23:59 23:59 Intake Total 1914.58 / 1914.58 700 / 700 1100 / 1100 Balance 1914.58 / 1914.58 700 / 700 1100 / 1100 Lab / Micro Data 10/29/23 04:46 10/29/23 04:46 Physical Exam Const alert and no apparent distress Constitutional Narrative: lying in bed. non-toxic. Psych affect normal Assessment & Plan Assessment/Plan (1) Alcohol dependence: PLAN: Plan Acute alcohol withdrawal * Patient treated with phenobarbital. * on thiamine, folic acid and multivitamin * monitor CIWA score * pt to follow up with the counseling center. Chronic conditions: * Hepatitis C infection: Patient's hepatitis C antibody was reactive back in April 2023. No hepatitis C antigen test available. Unclear if patient has ac tive hepatitis C or not. His viral studies are still pending at this time. Advised patient that he will need to follow-up with primary care doctor in regards to following up on those final results when those to become available. Asked why he did not have that followed up when he was here in April he was evasive in regards to an answer. Did review with him and that his HIV studies were negative at that time and his hepatitis B antigen was positive but his surface antigen was negative so likely has had a history of hepatitis B exposure. * History of polysubstance abuse: Uses cannabis, opiates and methamphetamine. Counseled to quit. Complicates long-term recovery. * History of CVA: On aspirin. Not on any other medication. * Asthma and COPD: Not in exacerbation. Breathing treatments bronchodilators. DVT prophylaxis; SCDs 10/31/23 1015 <Electronically signed by Graham Tolbert DO> Cosigner Signature (if applicable): CC: ~ Signed [facility] Work Phone: 1(742) 813-146901-29-2024 Progress note Author Graham Tolbert [facility] October 30, 2023 11:01am Note Date/Time October 30, 2023 8 :26am [facility] Medical Records Department [address] [place] [address] Progress Note - Hospitalist 10/30/23822 MR#: [id number] Acct: [id number] Name: MARKELLMICHAEL SANTOS Rep #:[id number] : 1975 47 From: Graham Tolbert DO PCP: Care Physician,No Primary Status :ADM IN Location: [place] [address] Reason for Visit Reason for Visit: Diagnoses Alcohol dependence, uncomplicated (10/29/23) Subjective Subjective No events overnight. Very concerned about his hepatitis studies. Objective Data Objective Data Vital Signs: Vital Signs Temp Pulse Resp BP Pulse Ox O2 Del Method 36.7 C 80 16 111/78 96 Room Air 10/30/23 04:01 10/30/23 04:01 10/30/23 04:01 10/30/23 04:01 10/30/23 04:01 10/30/23 04:01 Oxygen Delivery Method Room Air Weight: 60.498 kg Body Mass Index (BMI) 21.5 Intake & Output: Intake and Output for Last 24 Hours 10/28/23 10/29/23 10/30/23 23:59 23:59 23:59 Intake Total 4.58 / 1914.58 Balance 1914.58 / 1914.58 Lab / Micro Data 10/29/23 04:46 10/29/23 04:46 Physical Exam Const Constitutional Narrative: Anxious. Afebrile. Nontoxic. Assessment & Plan Assessment/Plan (1) Alcohol dependence: PLAN: Plan Acute alcohol withdrawal * Patient on alcohol drawl protocol with phenobarbital. * on thiamine, folic acid and multivitamin * monitor CIWA score * adjunctive meds for symptomatic relief Chronic conditions: * Hepatitis C infection: Patient's hepatitis C antibody was reactive back in April 2023. No hepatitis C antigen test available. Unclear if patient has active hepatitis C or not. His viral studies are still pending at this time. Advised patient that he will need to follow-up with primary care doctor [place] to following up on those final results when those to become available. Asked why he did not have that followed up when he was here in April he was evasive in regards to an answer. Did review with him and that his HIV studies were negative at that time and his hepatitis B antigen was positive but his surface antigen was negative so likely has had a history of hepatitis B exposure. * History of polysubstance abuse: Uses cannabis, opiates and methamphetamine. Counseled to quit. Complicates long-term recovery. * History of CVA: On aspirin. Not on any other medication. * Asthma and COPD: Not in exacerbation. Breathing treatments bronchodilators. DVT prophylaxis; SCDs Greater than 35 minutes of which greater than 50% of time was counseled patient about his hepatitis studies and acknowledging that they are incomplete. He was very concerned about it being in his system that he may be having an active infection needing medication. Reassurance was provided to the patient that he does not necessarily have hepatitis C though he certainly has been exposed to it. Patient required several reminders about this in the course of this conversation. Is unclear if he is quite grasp that at this point in time but will can review with him tomorrow when he is evaluated. Charges/Coding Visit Charges Inpatient E&M: 31400 Subs Hosp L2 10/30/23 1101 <Electronically signed by Graham Tolbert DO> Cosigner Signature (if applicable): CC: ~ Signed [facility] Work Phone: 1(384) 648-414601-28-2024 Progress note Author Amparo Nguyen [facility] October 29, 2023 1:57pm Note Date/Time October 29, 2023 9 :51am [facility] Medical Records Department [address] [place] [address] Progress Note 10/29/23 0949 MR#: [id number] Acct: [id number] Name: MICHAEL MCNEILL SANTOS Rep #:[id number] : 1975 47 From: Amparo Nguyen MD PCP: Care Physician,No Primary Status :ADM IN Location: MS3 CF803-7 Subjective Subjective Patient seen and examined. He had no active complaints. Review of systems is otherwise negative. He is being managed for acute alcohol withdrawal. Objective Data Objective Data Vital Signs: Vital Signs Temp Pulse Resp BP Pulse Ox O2 Del Method 98.6 F 92 18 129/89 H 98 Room Air 10/29/23 08:14 10/29/23 08:14 10/29/23 08:14 10/29/23 08:14 10/29/23 08:14 10/29/23 08:41 Oxygen Delivery Method Room Air Weight: 133 lb 6 oz Body Mass Index (BMI) 21.5 Lab / Micro Data 10/29/23 04:46 10/29/23 04:46 Labs: Laboratory Results - last 24 hr 10/29/23 04:46: WBC 9.4, RBC 4.72, Hgb 14.5, Hct 44.1, MCV 93.4, MCH 30.7, MCHC 32.9, RDW Std Deviation 43.0, RDW Coeff of Bridger 12.4, Plt Count 338, MPV 9.2, Immature Gran % (Auto) 0.300, Neut % (Auto) 78.9 H, Lymph % (Auto) 14.6 L, Nye % (Auto) 4.0, Eos % (Auto) 1.6, Baso % (Auto) 0.6, Absolute Neuts (auto) 7.4, Absolute Lymphs (auto) 1.38, Nucleated RBC % 0, Sodium 133 L, Potassium 4.0, Chloride 100, Carbon Dioxide 27.0, Anion Gap 6, BUN 18, Creatinine 0.86, Estim Creat Clear Calc 92.52, Est GFR (MDRD) Af Amer 123, Est GFR (MDRD) Non-Af 102, BUN/Creatinine Ratio 21.0 H, Glucose 82, Calcium 9.8, Magnesium 2.3, Total Bilirubin 0.60, AST 31, ALT 37, Alkaline Phosphatase 59, Total Protein 8.3 H, Albumin 4.2, Globulin 4.1, Albumin/Globulin Ratio 1.0, Ethyl Alcohol 5.0 10/29/23 05:10: Urine Opiates Screen NEGATIVE, Urine Methadone Screen NEGATIVE, Ur Barbiturates Screen NEGATIVE, Ur Phencyclidine Scrn NEGATIVE, Ur AmphetaminesScreen POSITIVE H, MDMA (Ecstasy) Screen POSITIVE H, U Benzodiazepines Scrn NEGATIVE, Urine Cocaine Screen NEGATIVE, U Cannabinoids Screen NEGATIVE, Ur DrugScreen Comment 10/29/23 05:28: Phosphorus 4.9 Physical Exam Const alert, oriented x3 and no apparent distress General Appearance: cooperative and well developed HEENT normocephalic, head/scalp atraumatic, moist oral mucous membranes and oropharynxnormal Eyes PERRL and EOMs intact bilaterally Neck no lymphadenopathy, supple and no JVD Lymph Lymphatic: no lymphadenopathy noted and no lymphedema noted Resp normal respiratory effort, normal air movement and clear to auscultation bilaterally Cardio regular rate, regular rhythm, S1 normal heart sound, S2 normal heart sound and no murmurs GI normal to inspection, nondistended, normoactive bowel sounds, soft to palpation,non-tender and non-distended Extremity normal capillary refill, no clubbing, cyanosis or edema and no calf tenderness General Extremity: no tenderness to palpation of joints or extremities Skin General Skin Exam: no breakdown Neuro CN's II-XII intact bilaterally, no focal motor deficits and no sensory deficits noted Motor Exam: strength 5/5 throughout Psych Mood & Affect: anxious Assessment & Plan Assessment/Plan (1) Alcohol dependence: (2) Desire for detoxification: PLAN: Plan #Acute alcohol withdrawal * Patient on alcohol drawl protocol with phenobarbital. * on thiamine, folic acid and multivite * monitor CIWA score * adjunctive meds for symptomatic relief * #?Hepatitis C infection * Patient's hepatitis C antibody was reactive back in April 2023. Patient is very anxious about this as he is wondering why he has not been treated for this. No hepatitis C antigen test available. * Patient counseled will refer him to gastroenterology on outpatient basis. Check hepatitis C RNA viral load to confirm if he does have hepatitis C infect ion. * HIV and HEP B tests negative #History of polysubstance abuse: Uses cannabis, opiates and methamphetamine. Counseled to quit. #History of CVA: On aspirin. Not on any other medication. #Asthma and COPD: Not in exacerbation. Breathing treatments bronchodilators. DVT prophylaxis; SCDs Charges/Coding Visit Charges Inpatient E&M: 44958 Subs Hosp L2 10/29/23 3292 <Electronically signed by Amparo Nguyen MD> Amparo Nguyen MD Cosigner Signature (if applicable): CC: ~ Signed [facility] Work Phone: 1(528) 322-598301-28-2024 Discharge summary Author Tae Walsh [facility] October 29, 2023 5:44am Note Date/Time October 29, 2023 4 :37am [facility] Medical Records Department [address] [place] [address] Emergency Department Summary 10/29/23 MR#: [id number] Acct: [id number] Name: MICHAEL MCNEILL SANTOS Rep #:[id number] : 1975 47 From: Tae Walsh MD PCP: Care Physician,No Primary Status :ADM IN Location: [place] [address]-1 HPI History of Present Illness Chief Complaint: Substance Abuse Detail of Chief Complaint: Alcohol abuse and dependency Informant: patient Onset/Context/Timing Onset: Month(s) Context: Sudden Onset Timing: Intermittent Quality: Per HPI narrative Location: Not applicable about Current Severity: Moderate Maximum Severity: Moderate Worsened by: Nothing specific Relieved by: Nothing Associated Symptoms Associated Symptoms: Negative for vomiting*, diarrhea*, fever*, rash*, seizure, tremor, palpatations, change in mental status, sex for drugs*, no, suicidal ideation or homicidal ideation Narrative Narrative: Patient is a 47-year-old male with history of alcoholism who presents for detox. He states he was in a detox program over a year ago. Several months of abstinence. He began to drink slowly. Has been increasing over the past several weeks. He is increased significantly over the past week. There has been a day or so that he has not had something to drink. He is not experience any withdrawal symptoms. He is presently drinking 324 ounce bottles/cans of beer and also drinking all liquor/whiskey. The consumption of liquor is not normal for him. Patient denies smoking. He does smoke marijuana. He denies any other drug use. Patient is on disability because of cognitive impairment. He is presently unemployed. Patient denies headache, visual, ocular auditory symptoms. Patient denies cardiac or respiratory symptoms. Patient denies bruising easily. He is not on anticoagulant or antithrombotic. He does have an albuterol inhaler for his asthma. Prior similar symptoms: Yes Recent Illness/Hospitalization: No PFSH PFSH Medical History (Updated 10/29/23 @ 05:[address] Tae Walsh MD) Alcohol abuse Ankle fracture, left Anxiety Anxiety and depression Asthma with COPD Bipolar disorder Bulla of lung Depression GERD (gastroesophageal reflux disease) Hypertension Inguinal hernia bilateral, non-recurrent Methamphetamine abuse Past history of chewing tobacco use Stroke/cerebrovascular accident Home Medications albuterol sulfate 90 mcg/actuation aerosol inhaler (Ventolin HFA) 1 - 2 puff inhalation Q4H PRN PRN Wheezing #1 device 09/09/22 [Rx Last Taken Unknown] albuterol sulfate 90 mcg/actuation aerosol inhaler (ProAir HFA) 2 puff inhalation Q6H PRN shortness of breath or wheezing #8.5 grams 12/02/22 [Rx Last Taken 12/23/22] Allergy/AdvReac Type Severity Reaction Status Date / Time No Known Allergies Allergy Verified 10/29/23 04:24 Family History Father Alcoholism CAD (coronary artery disease) Heart disease Hypertension Mother Alcoholism Seizures Surgical History History of ankle surgery Social History housing: homeless Smoking Status: Never smoker Smokeless tobacco user: chewing tobacco how long ago did patient quit smoking: Notes no cig tob use, prior chew only but no current, ongoing cannabis use. alcohol intake: current details: 5-6 beers daily, occasionally whiskey. substance use type: marijuana, opiates and methamphetamine ROS ROS ED Constitutional Constitutional ED: Denies chills, fever(s), subjective or sweats Eyes Eyes: Denies blurry vision or change in vision ENT ENT ED: Denies ear pain, rhinorrhea or sore throat Cardiovascular Cardiovascular: Denies chest pain or palpitations Respiratory/Chest Respiratory/Chest: Denies cough, dyspnea or dyspnea on exertion Gastrointestinal Gastrointestinal: Denies abdominal pain, diarrhea, melena, nausea or vomiting Genitourinary Genitourinary ED: Reports other Musculoskeletal Musculoskeletal: Denies arthralgias or myalgias Integumentary Denies rash Neurologic Neurologic: Denies headache(s) or paresthesias Endocrine Endocrinology: Denies cold intolerance or heat intolerance Hematologic/Lymphatic Hematologic/Lymphatic: Denies easy bleeding or easy bruising EXAM Physical Exam Const Vital Signs: 10/29/23 04:23 Temperature 97.9 F Temperature Source Temporal Pulse Rate 94 Respiratory Rate 18 Blood Pressure 124/58 H Blood Pressure Mean 80 Pulse Ox 98 Oxygen Delivery Method Room Air Positive well nourished and well developed Constitutional Narrative: Patient does stutter. He does have problems with fluency of his speech. General Appearance ED: well developed and NAD; Negative for pallor HEENT Reports moist mucous membranes atraumatic and trauma Eyes PERRL and EOMs intact bilaterally General Eye ED: Negative for pale conjunctiva or scleral icterus Neck no lymphadenopathy, supple and no JVD Lymph Lymphatic: no lymphadenopathy noted and lymphadenopathy Chest Wall inspection of chest normal and palpation of chest normal Resp normal respiratory effort and clear to auscultation bilaterally Cardio regular rate, regular rhythm, S1 normal heart sound, S2 normal heart sound and no murmurs GI soft to palpation, non-tender, non-distended and no masses Auscultation: hypoactive bowel sounds Back/Spine no CVA tenderness Back/Spine Narrative: Inspection of the back is normal. There is no tenderness. Extremity Extremity Narrative: There is no clubbing or acrocyanosis. General Extremety ED: Negative for edema or tenderness General Extremity: Negative for edema Neuro oriented x3 Aidan Coma Scale: document GCS findings Spontaneous Obeys Commands Oriented 15 Sensorium / Orientation: alert Speech: speech normal Psych mental status grossly normal and thought process normal Skin General Skin Exam: Negative for jaundice or pallor Lesions: no lesions Rashes: no rashes MDM MDM MDM Narrative Medical decision making narrative: Patient presents for detox from alcohol. Patient is concerned if he attempts todecrease on his own he will go through withdrawal, which she has experienced in the past. Admission blood work was ordered. The hospitalist will follow those results. Plan is to admit to [facility]. Dr. Mcintyre who is on this evening has admitted Mr. Mcneill twice Blood work was obtained to rule out anemia, thrombocytopenia electrolyte abnormality, diabetes and renal dysfunction. Lab Data Attestation: I reviewed the patient's lab results. Lab results narrative: CBC reveals mild anemia. Electrolyte panel is unremarkable. Alcohol is trace positive. Talk screen is pending. Management Discussion w/another healthcare provider: Hospitalist Discharge Plan Triage Chief Complaint: Substance Abuse ED Provider: Tae Walsh Dx/Rx/DC Orders Clinical Impression: Alcohol dependence, Alcoholism, Alcohol abuse, Desire for detoxification Primary Care Provider: Care Physician,No Primary Disposition Disposition: Acute Care Hospital [facility] What to do if you have Problems For any increased pain, shortness of breath, bleeding, nausea or vomiting, chestpain, or any unexpected problems, contact your Primary Care Provider. Call [facility] ([phone]) or report to the closest Emergency Room. Call 911 if necessary. 10/29/23 0544 <Electronically signed by Tae Walsh MD> Cosigner Signature (if applicable): CC: No Primary Care Physician ~ Signed [facility] Work Phone: 1(841) 470-358301-28-2024 History and physical note Author Alisha Mcintyre [facility] October 29, 2023 4:59am Note Date/Time October 29, 2023 4 :41am [facility] Medical Records Department [address] [place] [id number] H&P Exam - Hospitalist 10/29/23 0437 MR#: [id number] Acct: [id number] Name: MICHAEL MCNEILL SANTOS Rep #:[id number] : 1975 47 From: Alisha Mcintyre MD PCP: Care Physician,No Primary Status :REG ER Location: ED HPI - General General Date of Admission: 10/29/23 Date of Service: 10/29/23 Chief Complaint: EtOH abuse, requesting detoxification. HPI Narrative The patient is a 47 y/o M w/ PMHx: Hx CVA, Hx Chew tobacco use, Polysubstance abuse (cannabis, opiates, methampetamine), EtOH abuse, COPD/Asthma w/ known bulla, GERD, HTN, HLD who presents to the [facility] ED on 04/26/23 with acute EtOH withdrawal for detoxification treatment with history of unfortunately starting to drink, initially weekly only but it again became daily, heavier over the lastcouple days with hard liquor, prompting ED evaluation. He notes the last drink he had was whiskey prior to decision to present for treatment. Workup in the ED included T97.9, heart rate 94, BP 124/58, respiratory rate 18, 98% on room air, pending CBC, CMP, ethyl alcohol level, urine drug screen upon evaluation. [facility] Medical History (Updated 10/29/23 @ 04:[address] Alisha Mcintyre MD) Alcohol abuse Ankle fracture, left Anxiety Anxiety and depression Asthma with COPD Bipolar disorder Bulla of lung Depression GERD (gastroesophageal reflux disease) Hypertension Inguinal hernia bilateral, non-recurrent Methamphetamine abuse Past history of chewing tobacco use Stroke/cerebrovascular accident Home Medications albuterol sulfate 90 mcg/actuation aerosol inhaler (Ventolin HFA) 1 - 2 puff inhalation Q4H PRN PRN Wheezing #1 device 09/09/22 [Rx Last Taken Unknown] albuterol sulfate 90 mcg/actuation aerosol inhaler (ProAir HFA) 2 puff inhalation Q6H PRN shortness of breath or wheezing #8.5 grams 12/02/22 [Rx Last Taken 12/23/22] Allergy/AdvReac Type Severity Reaction Status Date / Time No Known Allergies Allergy Verified 10/29/23 04:24 Family History Father Alcoholism CAD (coronary artery disease) Heart disease Hypertension Mother Alcoholism Seizures Surgical History History of ankle surgery Social History housing: homeless Smoking Status: Never smoker Smokeless tobacco user: chewing tobacco how long ago did patient quit smoking: Notes no cig tob use, prior chew only but no current, ongoing cannabis use. alcohol intake: current details: 5-6 beers daily, occasionally whiskey. substance use type: marijuana, opiates and methamphetamine ROS ROS Narrative Admission Review of Systems: CONSTITUTIONAL: No weight loss, fever, chills, + weakness or fatigue. HEENT: Eyes: No visual loss, blurred vision, double vision or yellow sclerae. Ears, Nose, Throat: No hearing loss, sneezing, congestion, runny nose or sore throat. SKIN: No rash or itching, lesions, wounds. CARDIOVASCULAR: No chest pain, chest pressure or chest discomfort, palpitations,edema, orthopnea, syncopal events. RESPIRATORY: + Occasional wheezing and nonproductive cough. No marked sputum, hemoptysis. GASTROINTESTINAL: No anorexia, nausea, vomiting or diarrhea, abdominal pain, melena, BRBPR. GENITOURINARY: No dysuria, frequency, urgency or retention. NEUROLOGICAL: + Speech changes/aphasia chronically s/p prior CVA. No headache, dizziness, syncope, paralysis, ataxia, numbness or tingling in the extremities, focal weakness, change in bowel or bladder control, seizure. MUSCULOSKELETAL: + muscle, back pain, joint pain or stiffness. HEMATOLOGIC: + anemia, easy bleeding/bruising. LYMPHATICS: No enlarged nodes. No history of splenectomy. PSYCHIATRIC: + history of depression or anxiety. ENDOCRINOLOGIC: No reports of sweating, cold or heat intolerance. No polyuria orpolydipsia. ALLERGIES: + history of asthma, rhinitis. Vital Signs Vital Signs Vital Signs: 10/29/23 04:23 Temperature 97.9 F Temperature Source Temporal Pulse Rate 94 Respiratory Rate 18 Blood Pressure 124/58 H Blood Pressure Mean 80 Pulse Ox 98 Oxygen Delivery Method Room Air Weight Weight: 135 lb 12.876 oz Body Mass Index (BMI) 21.9 Physical Exam Narrative Physical Examination: General: Awake, alert, oriented x 3 and cooperative, seated upright in ED bed, chronic aphasia present. Skin: Normal color, normal turgor, no icterus, no cyanosis except psoriatic skinchange to hands and occasional abrasion/staged ecchymoses. HEENT: AT/NC, EOMI, PERRLA, mildly dry MM, no carotid bruits or JVD noted. Lungs: Mildly diminished, > bases, no rales, wheezing or marked rhonchi. Heart: Currently regular rhythm; no gallop, rub audible. Abdomen: Soft, thin habitus, NTTP, ND, mildly hyperactive BS, + HM. Extremities: No cyanosis, clubbing, or edema. Neurological: Patient awake, alert, oriented as noted, cognitive function baseline intact with chronic impairment s/p prior CVA; pupils equally reactive to light and accommodation, cranial nerves grossly normal, moving all 4 extremities, no focal deficits, strength mildly globally decreased, chronic aphasia. Psychiatric: Affect appears mildly fatigued, history of underlying anxiety and depression. Assessment & Plan Assessment/Plan (1) Desire for detoxification: PLAN: Plan The patient is a 47 y/o M w/ PMHx: Hx CVA, Hx Chew tobacco use, Polysubstance abuse (cannabis, opiates, methampetamine), EtOH abuse, COPD/Asthma w/ known bulla, GERD, HTN, HLD who presents to the [facility] ED on 04/26/23 with acute EtOH withdrawal for detoxification treatment with history of unfortunately starting to drink, initially weekly only but it again became daily, heavier over the lastcouple days with hard liquor, prompting ED evaluation. #1. Alcohol abuse, recurrent with detoxification request: Will admit to [facility], routine labs obtained in the ED upon presentation and pending. Given interest insobriety, will initiate and continue on protocol with taper course of Phenobarbital, as needed Catapres, gabapentin, Bentyl, Vistaril, IV fluids, IV antiemetics, Tylenol as needed for pain. Will consult Case management for assistance for transition to next level of rehabilitation care. Mag, phos pending. #2. Polysubstance abuse: History of polysubstance use with cannabis, opiates and methamphetamine. Prior presentation 04/26/2023 with UDS with positive amphetamine/MDMA. UDS pending upon current presentation. 04/26/2023 hepatitis panel with hep BS antibody reactive otherwise nonreactive, hepatitis C antibody preliminarily reactive, HIV nonreactive. Encourage both sobriety and clean status. #3. Asthma/COPD: Not on any chronic regimen, will maintain on ATC budesonide therapy, PRN albuterol, encourage tobacco cessation. #4. Hypertension: Noted prior history, BP low normal range, continue to monitor. #5. Former Chew Tobacco Abuse: Encouraged continued cessation. #6. Anxiety and depression: Not on any regimen, encouraged continued ongoing evaluations with counseling and potentially medications on an outpatient basis if appropriate. #7. Hx prior CVA w/ chronic aphasia: Will continue asa, not on hypertensive regimen or statin therapy, BP currently normal range. #8. Normocytic anemia, chronic component: Admission Hgb pending, prior Hgb 12.8, baseline prior Hgb 11-12. #9. DVT prophylaxis: Low risk for type of admission. Charges/Coding Visit Charges Inpatient E&M: 14922 Init Hosp L2 10/29/23 0118 <Electronically signed by Alisha Mcintyre MD> Cosigner Signature (if applicable): CC: Dr. Alisha Mcintyre MD; No Primary Care Physician~ Signed [facility] Work Phone: 1(488) 970-642812-19-2023 Telephone encounter Note* Telephone Encounter - Vida Perez - 09/19/2023 4:15 PM EST Office and PACC unable to reach patient to go over surgery information and schedule PAT prior to surgery as patients number and emergency contacts number has been disconnected Surgery message sent to [place] to cancel surgery as of now Vida Perez Supervisor Wet [facility]12-19-2023 Miscellaneous Notes* Telephone Encounter - Vida Perez - 09/19/2023 4:15 PM EST Office and PACC unable to reach patient to go over surgery information and schedule PAT prior to surgery as patients number and emergency contacts number has been disconnected Surgery message sent to [place] to cancel surgery as of now Vida Perez Supervisor Wet End * Telephone Encounter - Vida Perez - 09/13/2023 9:05 AM EST Received call from [facility] in regards to patient not being able to be contacted. Number listed for patient rings twice then shows busy. Emergency contact listed is inactive. Will keep trying. Patient scheduled for hernia surgery with Dr. Jose in [place] on 10/03/2023. Colonoscopy was cancelled earlier this month. Vida Perez Please advise Supervisor Wet End * Telephone Encounter - Vida Perez - 08/28/2023 11:16 AM EST 09/05/2023 COLON MATTHEWS + 10/03/2023 [facility] Telephone encounter Note * Telephone Encounter - Vida Perez - 09/13/2023 9:05 AM EST Received call from [facility] in regards to patient not being able to be contacted. Number listed for patient rings twice then shows busy. Emergency contact listed is inactive. Will keep trying. Patient scheduled for hernia surgery with Dr. Jose in [place] on 10/03/2023. Colonoscopy was cancelled earlier this month. Vida Perez Please advise Supervisor Wet End [facility]2023 Telephone encounter Note* Telephone Encounter - Vida Perez - 08/28/2023 11:16 AM EST 09/05/2023 COLON MTZ + 10/03/2023 [facility]2023 NoteHNO ID: [id number] Author: Linda Jose MD Service: ? Author Type: Physician Type: Progress Notes Filed: 08/28/2023 12:53 PM Note Text: HISTORY AND PHYSICAL Michael Mcneill 1975 REFERRING PHYSICIAN: No ref. provider found CHIEF COMPLAINT: Consult (Right side groin pain) HPI: The patient is a 47 year old male presents with right inguinal hernia noted for 5 years. She notes increasing symptoms recently He has just got out of detention for drug possession in the past two [...] entered by the nurse and reviewed by de Nursing Notes: Katherine Biggs RN 08/28/2023 10:43 [...] ?C (97.9 ?F), height 170.2 cm (5' 7), weight 63.9 kg (140 lb 12.8 oz), SpO2 96 %. Body mass index is 22.05 kg/m?. Head - Normocephalic. EOM intact with sclera clear and no icterus noted. (more content not included)...[facility]2023 History of Present illness Narrative* Linda Jose MD - 08/28/2023 11:03 AM EST HISTORY AND PHYSICAL Michael Mcneill 1975 REFERRING PHYSICIAN: No ref. provider found CHIEF COMPLAINT: Consult (Right side groin pain) HPI: The patient is a 47 year old male presents with right inguinal hernia noted for 5 years. She notes increasing symptoms recently He has just got out of detention for drug possession in the past two [...] entered by the nurse and reviewed by de Nursing Notes: Katherine Biggs RN 08/28/2023 10:43 AM Signed REVIEW OF SYSTEMS: General: The patient denies fatigue, NOTES weight loss, denies weight gain, denies feeling hot, anddenies feelings of cold. Eyes: The patient denies [...] psychiatric medications, NOTES depression, and denies voices, NOTESsubstance abuse. Endocrine: The patient denies thyroid disorders, [...] C (97.9 F), height 170.2 cm (5' 7), weight 63.9 kg (140 lb 12.8 oz), SpO2 96 %. Body mass index is 22.05 kg/m . Head - Normocephalic. EOM intact with sclera clear and no icterus noted. Mouth with mucus membranesmoist. Neck - supple with no jugular venous [...] anatomical position and no masses noted, right inguinalhernia - reducible, no left inguinal hernia noted [...] such as liver/spleen, perforation of the GI tract,inability to complete the procedure, complications of anesthesia, [...] will be scheduled for the procedure at [facility] I have offered right inguinal hernia repair. I have explained the procedure to the patient. I have explained the risks/benefits of the procedure. I have discussed the risks with the patient, including but not limited to: infection, bleeding, injury to any blood vessels/nerves, injury to anybowel/bladder, injury to the spermatic cord, injury to [...] studies/radiological imaging/medical records from other medical facilities, [id number] patient care, obtaining oral medical history from the patient in [facility], performing a medically appropriate examination, counseling and educating the patient/family/caregiver, and ordering and/or scheduling of medications/tests/procedures, and completing appropriate medical documentation. Linda Jose MD [facility] Instructions* Patient Instructions* Linda Jose MD - 08/28/2023 10:53 AM EST Images from the original note were not included. Bowel Preparation Instructions for: Golytely, Nulytely, Trilyte or Colyte (polyethylene glycol 3350and electrolytes) IF YOU DO NOT FOLLOW THESE [...] If you do not have a responsible food mobile driver (family member or friend) with you to take you home, your exam cannot be done with sedation and will be cancelled. Please bring a list of all of your current medications, including any Over-the Counter medications with you. Medications If you take insulin, diabetic medications or blood thinners such as Coumadin (warfarin), Plavix (clopidogrel), Ticlid (ticlopidine hydrochloride), Agrylin (anagrelide), Xarelto (Rivaroxaban), Pradaxa(Dabigatran), Eliquis (Apixaban), and Effient (Prasugrel). You MUST [...] at your local pharmacy or drugstore pharmacy. 1 09/2019 Bowel Preparation Instructions for: Golytely, Nulytely, Trilyte or Colyte (polyethylene glycol 3350and electrolytes) Three (3) Days Before Your Colonoscopy [...] your exam. 2 09/2019 [facility] Nurse Note* Katherine Biggs RN - 08/28/2023 10:40 AM EST REVIEW OF SYSTEMS: General: The patient denies fatigue, NOTES weight loss, denies weight gain, denies feeling hot, anddenies feelings of cold. Eyes: The patient denies [...] psychiatric medications, NOTES depression, and denies voices, NOTESsubstance abuse. Endocrine: The patient denies thyroid disorders, [...] NONE Katherine Biggs RN [facility]The [facility]11-25-2023 NoteHNO ID: [id number] Author: Henri Hurley APRN.ACADEMIC ADVISER Service: ? Author Type: Nurse Practitioner Type: [...] to Er. - CONSULT TO GENERAL SURGERY Henri Hurley APRN.[facility]PM[facility]07-[facility]-2023 Discharge summary Author Jaquan Mabry [facility] April 28, 2023 9:43am Note Date/Time April 28, 2023 9:35 am [facility] [address] [place] [address] Discharge Summary 04/28/23 0935 MR#: [id number] Acct: [id number] Name: MICHAEL MCNEILL Rep #:[id number] : 1975 47 From: Jaquan Mabry MD PCP: Care Physician,No Primary Status :ADM IN Location: [place] [address] Providers Date of Admission: 04/26/23 Date of Discharge: 04/28/23 Primary Care Physician: No Primary Care Phys Reason For Visit: ETOH WITHDRAWAL Diagnosis Discharge Diagnosis (1) Alcohol withdrawal: Status: Acute Code(s): F10.939 - Alcohol use, unspecified with withdrawal, unspecified Qualifiers: Complication of substance-induced condition: uncomplicated Qualified Code(s): F10.930 - Alcohol use, unspecified with withdrawal, uncomplicated Plan Patient is a 47-year-old gentleman admitted with acute alcohol withdrawal 1. Acute alcohol withdrawal ? Patient admitted to a nursing floor managed with phenobarb taper in addition to adjuvant therapy ? 04/28/2023; Patient seen per nursing staff patient has been refusing phenobarb patient encouraged on the need to be compliant with the phenobarb taper 2. 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 Continue patient bronchodilator treatment. Currently not in exacerbation 3. Polysubstance dependence ? Including cannabis opiate and methamphetamine. Counseled on cessation 4. Tobacco dependence - Counseled on cessation, offered nicotine patch for tobacco cravings 5. 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 Remains stable 6. DVT prophylaxis ? Low risk did encourage ambulation Time spent in the patient's overall evaluation,decision-making process, review of diagnostic data, adjustment of management, discussion with other providers, nursing nursing and ancillary staff involved in patient's care documentation, 35 Minutes Medications at Discharge Home Medications albuterol sulfate 90 mcg/actuation aerosol inhaler (Ventolin HFA) 1 - 2 puff inhalation Q4H PRN PRN Wheezing #1 device 09/09/22 albuterol sulfate 90 mcg/actuation aerosol inhaler (ProAir HFA) 2 puff inhalation Q6H PRN shortness of breath or wheezing #8.5 grams 12/02/22 albuterol sulfate 90 mcg/actuation aerosol inhaler (Ventolin HFA) 1 - 2 puff inhalation Q4H PRN PRN Wheezing #1 inh 01/22/23 prednisone 20 mg tablet 40 mg (2 x 20 mg) PO DAILY not taking! 5 days #10 tabs 01/22/23 albuterol sulfate 90 mcg/actuation aerosol inhaler (Ventolin HFA) 2 puff inhalation Q4H PRN PRN Wheezing ##1 03/26/23 naproxen 500 mg tablet 500 mg PO BID pain #14 tabs 03/26/23 penicillin V potassium 500 mg tablet 500 mg PO 4X/DAY unknown why he taking #40 tabs 03/26/23 Hospital Course Summary of Care Provided Minutes Spent on Discharge: 35 Physical Exam Narrative GENERAL: cooperative HEENT: Atraumatic; normocephalic EYES; Anicteric, Normal Conjunctiva NECK; supple, normal thyroid, RESPIRATORY: Diminished to auscultation CARDIOVASCULAR: Regular S1 S2, GI: soft, normoactive bowel sounds, : No Renal angle tenderness; EXTREMITIES: No edema, no clubbing, MUSCULOSKELETAL: no muscle wasting NEURO: Awake; no lateralizing signs. SKIN: No Rash PSYCH; Flat affect Weight / BMI Weight Weight: 56.699 kg Body Mass Index (BMI) 20.1 ABG / Lab / Microbiology Data 04/26/23 18:10 04/26/23 18:10 D/C Instructions Discharge Diet: No restrictions Discharge Activity: Return to Normal Activity Call your doctor if you observe: Fever of 101 or Higher, Shortness of breath, Fainting spells and Chest pain Meaningful Use Info Meaningful Use Diagnoses (Choose all that apply): None applicable Discharge Plan Admission Admit Date/Time: 04/26/23 19:06 Attending Provider: Jaquan Mabry Primary Care Provider: Care Physician,No Primary Consulting Providers: Alisha Mcintyre Discharge Orders/Prescriptions Prescriptions: Continued albuterol sulfate [Ventolin HFA] 90 mcg/actuation HFA aerosol inhaler 1 - 2 puff inhalation Q4H PRN PRN (Reason: Wheezing) Qty: 1 0RF albuterol sulfate [ProAir HFA] 90 mcg/actuation HFA aerosol inhaler 2 puff inhalation Q6H PRN (Reason: shortness of breath or wheezing) Qty: 8.5 0RF albuterol sulfate [Ventolin HFA] 90 mcg/actuation HFA aerosol inhaler 1 - 2 puff inhalation Q4H PRN PRN (Reason: Wheezing) Qty: 1 0RF prednisone 20 mg tablet 40 mg PO DAILY 5 Days Qty: 10 0RF Hold Instructions: no longer taking Patient Comments: not t penicillin V potassium 500 mg tablet 500 mg PO 4X/DAY Qty: 40 0RF albuterol sulfate [Ventolin HFA] 90 mcg/actuation HFA aerosol inhaler 2 puff inhalation Q4H PRN PRN (Reason: Wheezing) Qty: 1 0RF naproxen 500 mg tablet 500 mg PO BID Qty: 14 0RF Hold Instructions: no longer takiing Referrals / Follow Up: Kristina Veloz DO [Med Staff - Consulting] - Within 1 Week (at 180) Care Physician,No Primary [Primary Care Provider] - Within 2 Weeks Disposition Disposition (needs filled in before D/C Order can be placed): Home, Self Care Charges/Coding Visit Charges Inpatient E&M: 22512 Disch Hosp >30min 04/28/23 0943 <Electronically signed by Jaquan Mabry MD> Cosigner Signature (if applicable): CC: Dr. Jaquan Mabry MD; No Primary Care Physician~ Signed [facility] Work Phone: 1(565) 412-248407-28-2023 Progress note Author Jaquan Mabry [facility] April 28, 2023 9:07am Note Date/Time April 28, 2023 7:17 am [facility] Medical Records Department [address] [place] [address] Progress Note - Hospitalist 04/28/23716 MR#: [id number] Acct: [id number] Name: MICHAEL MCNEILL Rep #:[id number] : 1975 47 From: Jaquan Mabry MD PCP: Care Physician,No Primary Status :ADM IN Location: [address] Reason for Visit Reason for Visit: Diagnoses Alcohol use, unspecified with withdrawal, uncomplicated (04/26/23) Alcohol use, unspecified with withdrawal, unspecified (04/26/23) Subjective Subjective Patient seen per nursing staff patient has been refusing phenobarb patient encouraged on the need to be compliant with the phenobarb taper Objective Data Objective Data Vital Signs: Vital Signs Temp Pulse Resp BP Pulse Ox O2 Del Method 97.5 F L 61 16 119/79 98 Room Air 07/28/23 05:47 04/28/23 05:47 04/28/23 05:47 04/28/23 05:47 04/28/23 05:47 04/28/23 05:47 Oxygen Delivery Method Room Air Weight: 56.699 kg Body Mass Index (BMI) 20.1 Intake & Output: Intake and Output for Last 24 Hours 04/26/23 04/27/23 04/28/23 23:59 23:59 23:59 Intake Total 1020 / 1020 Balance 1020 / 1020 Lab / Micro Data 04/26/23 18:10 04/26/23 18:10 Physical Exam Narrative GENERAL: cooperative HEENT: Atraumatic; normocephalic EYES; Anicteric, Normal Conjunctiva NECK; supple, normal thyroid, RESPIRATORY: Diminished to auscultation CARDIOVASCULAR: Regular S1 S2, GI: soft, normoactive bowel sounds, : No Renal angle tenderness; EXTREMITIES: No edema, no clubbing, MUSCULOSKELETAL: no muscle wasting NEURO: Awake; no lateralizing signs. SKIN: No Rash PSYCH; Flat affect Assessment & Plan Assessment/Plan (1) Alcohol withdrawal: QUALIFIERS: Complication of substance-induced condition: uncomplicated Qualified Code(s): F10.930 - Alcohol use, unspecified with withdrawal, uncomplicated PLAN: Plan Patient is a 47-year-old gentleman admitted with acute alcohol withdrawal 1. Acute alcohol withdrawal ? Patient admitted to a nursing floor managed with phenobarb taper in addition to adjuvant therapy ? 04/28/2023; Patient seen per nursing staff patient has been refusing phenobarb patient encouraged on the need to be compliant with the phenobarb taper 2. 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 Continue patient bronchodilator treatment. Currently not in exacerbation 3. Polysubstance dependence ? Including cannabis opiate and methamphetamine. Counseled on cessation 4. Tobacco dependence - Counseled on cessation, offered nicotine patch for tobacco cravings 5. 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 Remains stable 6. DVT prophylaxis ? Low risk did encourage ambulation Time spent in the patient's overall evaluation,decision-making process, review of diagnostic data, adjustment of management, discussion with other providers, nursing nursing and ancillary staff involved in patient's care documentation, 35 Minutes Charges/Coding Visit Charges Inpatient E&M: 85811 Subs Hosp L2 04/28/23 0907 <Electronically signed by Jaquan Mabry MD> Cosigner Signature (if applicable): CC: ~ Signed [facility] Work Phone: 1(212) 263-962007-28-2023 Progress note Author Jaquan Mabry [facility] April 28, 2023 9:07am Note Date/Time April 28, 2023 7:[address] [facility] Medical Records Department [address] [place] [address] Progress Note - Hospitalist 04/28/2317 MR#: [id number] Acct: [id number] Name: MICHAEL MCNEILL SANTOS Rep #:[id number] : 1975 47 From: Jaquan Mabry MD PCP: Care Physician,No Primary Status :ADM IN Location: [place] [address] Reason for Visit Reason for Visit: Diagnoses Alcohol use, unspecified with withdrawal, uncomplicated (04/26/23) Alcohol use, unspecified with withdrawal, unspecified (04/26/23) Subjective Subjective Patient seen per nursing staff patient has been refusing phenobarb patient encouraged on the need to be compliant with the phenobarb taper Objective Data Objective Data Vital Signs: Vital Signs Temp Pulse Resp BP Pulse Ox O2 Del Method 97.5 F L 61 16 119/79 98 Room Air 04/28/23 05:47 04/28/23 05:47 04/28/23 05:47 04/28/23 05:47 04/28/23 05:47 04/28/23 05:47 Oxygen Delivery Method Room Air Weight: 56.699 kg Body Mass Index (BMI) 20.1 Intake & Output: Intake and Output for Last 24 Hours 04/26/23 04/27/23 04/28/23 23:59 23:59 23:59 Intake Total 1020 / 1020 Balance 1020 / 1020 Lab / Micro Data 04/26/23 18:10 04/26/23 18:10 Physical Exam Narrative GENERAL: cooperative HEENT: Atraumatic; normocephalic EYES; Anicteric, Normal Conjunctiva NECK; supple, normal thyroid, RESPIRATORY: Diminished to auscultation CARDIOVASCULAR: Regular S1 S2, GI: soft, normoactive bowel sounds, : No Renal angle tenderness; EXTREMITIES: No edema, no clubbing, MUSCULOSKELETAL: no muscle wasting NEURO: Awake; no lateralizing signs. SKIN: No Rash PSYCH; Flat affect Assessment & Plan Assessment/Plan (1) Alcohol withdrawal: QUALIFIERS: Complication of substance-induced condition: uncomplicated Qualified Code(s): F10.930 - Alcohol use, unspecified with withdrawal, uncomplicated PLAN: Plan Patient is a 47-year-old gentleman admitted with acute alcohol withdrawal 1. Acute alcohol withdrawal ? Patient admitted to a nursing floor managed with phenobarb taper in addition to adjuvant therapy ? 04/28/2023; Patient seen per nursing staff patient has been refusing phenobarb patient encouraged on the need to be compliant with the phenobarb taper 2. 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 Continue patient bronchodilator treatment. Currently not in exacerbation 3. Polysubstance dependence ? Including cannabis opiate and methamphetamine. Counseled on cessation 4. Tobacco dependence - Counseled on cessation, offered nicotine patch for tobacco cravings 5. 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 Remains stable 6. DVT prophylaxis ? Low risk did encourage ambulation Time spent in the patient's overall evaluation,decision-making process, review of diagnostic data, adjustment of management, discussion with other providers, nursing nursing and ancillary staff involved in patient's care documentation, 35 Minutes Charges/Coding Visit Charges Inpatient E&M: 02939 Subs Hosp L2 04/28/23 0907 <Electronically signed by Jaquan Mabry MD> Cosigner Signature (if applicable): CC: ~ Signed [facility] Work Phone: 1(579) 170-960707-27-2023 Progress note Author Jaquan Mabry [facility] April 27, 2023 8:14am Note Date/Time April 27, 2023 7:02 am [facility] Medical Records Department [address] [place] [address] Progress Note - Hospitalist 04/27/23 0659 MR#: [id number] Acct: [id number] Name: MICHAEL MCNEILL SANTOS Rep #:[id number] : 1975 47 From: Jaquan Mabry MD PCP: Care Physician,No Primary Status :ADM IN Location: [place] [address] Reason for Visit Reason for Visit: Diagnoses Alcohol use, unspecified with withdrawal, unspecified (04/26/23) Subjective Subjective Patient is a 47-year-old gentleman with history of chronic alcohol dependence admitted with acute alcohol withdrawal Objective Data Objective Data Vital Signs: Vital Signs Temp Pulse Resp BP Pulse Ox O2 Del Method 97.8 F 79 22 H 112/71 96 Room Air 04/27/23 03:15 04/27/23 05:48 04/27/23 05:48 04/27/23 03:15 04/27/23 03:15 04/27/23 03:15 Oxygen Delivery Method Room Air Weight: 56.699 kg Body Mass Index (BMI) 20.1 Intake & Output: Intake and Output for Last 24 Hours 04/25/23 04/26/23 04/27/23 23:59 23:59 23:59 Intake Total 220 / 220 Balance 220 / 220 Lab / Micro Data 04/26/23 18:10 04/26/23 18:10 Labs: Laboratory Results - last 24 hr 04/26/23 18:10: WBC 5.0, RBC 4.12 L, Hgb 12.8 L, Hct 38.9 L, MCV 94.4 H, MCH 31.1, MCHC 32.9, RDW Std Deviation 43.1, RDW Coeff of Bridger 12.5, Plt Count 273, MPV 8.7, Immature Gran % (Auto) 0.200, Neut % (Auto) 56.3, Lymph % (Auto) 22.0, Nye % (Auto) 6.0, Eos % (Auto) 14.7 H, Baso % (Auto) 0.8, Absolute Neuts (auto)2.8, Absolute Lymphs (auto) 1.11, Nucleated RBC % 0, Sodium 139, Potassium 4.0, Chloride 107, Carbon Dioxide 29.0, Anion Gap 3 L, BUN 21 H, Creatinine 0.88, Estim Creat Clear Calc 84.16, Est GFR (MDRD) Af Amer 119, Est GFR (MDRD) Non-Af 99, BUN/Creatinine Ratio 23.9 H, Glucose 98, Calcium 8.9, Phosphorus 3.7, Magnesium 2.0, Total Bilirubin 0.40, AST 26, ALT 43, Alkaline Phosphatase 51, Total Protein 7.4, Albumin 3.5, Globulin 3.9, Albumin/Globulin Ratio 0.9, Ethyl Alcohol < 3.0, Syphilis Total Ab Non- reactive, Hep Bs Antigen Non-Reactive, Hep Bs Antibody Reactive, Hepatitis C Antibody Preliminary Reactive, HIV 1&2 Antibody Non-Reactive 04/26/23 20:02: Urine Opiates Screen NEGATIVE, Urine Methadone Screen NEGATIVE, Ur Barbiturates Screen NEGATIVE, Ur Phencyclidine Scrn NEGATIVE, Ur AmphetaminesScreen POSITIVE H, MDMA (Ecstasy) Screen POSITIVE H, U Benzodiazepines Scrn NEGATIVE, Urine Cocaine Screen NEGATIVE, U Cannabinoids Screen NEGATIVE, Ur DrugScreen Comment Physical Exam Narrative GENERAL: cooperative HEENT: Atraumatic; normocephalic EYES; Anicteric, Normal Conjunctiva NECK; supple, normal thyroid, RESPIRATORY: Diminished to auscultation CARDIOVASCULAR: Regular S1 S2, GI: soft, normoactive bowel sounds, : No Renal angle tenderness; EXTREMITIES: No edema, no clubbing, MUSCULOSKELETAL: no muscle wasting NEURO: Awake; no lateralizing signs. SKIN: No Rash PSYCH; Flat affect Assessment & Plan Assessment/Plan (1) Alcohol withdrawal: QUALIFIERS: Complication of substance-induced condition: uncomplicated Qualified Code(s): F10.930 - Alcohol use, unspecified with withdrawal, uncomplicated PLAN: Plan Patient is a 47-year-old gentleman admitted with acute alcohol withdrawal 1. Acute alcohol withdrawal ? Patient admitted to a nursing floor managed with phenobarb taper in addition to adjuvant therapy 2. 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 Continue patient bronchodilator treatment. Currently not in exacerbation 3. Polysubstance dependence ? Including cannabis opiate and methamphetamine. Counseled on cessation 4. Tobacco dependence - Counseled on cessation, offered nicotine patch for tobacco cravings 5. 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 Remains stable 6. DVT prophylaxis ? Low risk did encourage ambulation Time spent in the patient's overall evaluation,decision-making process, review of diagnostic data, adjustment of management, discussion with other providers, nursing nursing and ancillary staff involved in patient's care documentation, 35 Minutes Charges/Coding Visit Charges Inpatient E&M: 76380 Subs Hosp L2 04/27/23 0814 <Electronically signed by Jaquan Mabry MD> Cosigner Signature (if applicable): CC: ~ Signed [facility] Work Phone: 1(524) 312-660607-27-2023 History and physical note Author Alisha Mcintyre [facility] April 26, 2023 11:38pm Note Date/Time April 26, 2023 7:07 pm [facility] Medical Records Department [address] [place] [address] H&P Exam - Hospitalist 04/26/23 1904 MR#: [id number] Acct: [id number] Name: MICHAEL MCNEILL SANTOS Rep #:[id number] : 1975 47 From: Alisha Mcintyre MD PCP: Care Physician,No Primary Status :ADM IN Location: [address] HPI - General General Date of Admission: 04/26/23 Date of Service: 04/26/23 Chief Complaint: Acute EtOH withdrawal HPI Narrative The patient is a 47 y/o M w/ PMHx: Hx CVA, Hx Chew tobacco use, Polysubstance abuse (cannabis, opiates, methampetamine), EtOH abuse, COPD/Asthma w/ known bulla, GERD, HTN, HLD who presents to the [facility] ED on 04/26/23 with acute EtOH withdrawal for detoxification treatment, onset starting day of presentation following last EtOH intake the evening prior with onset of mild nausea without any emesis, moderate tremors, mild increased agitation, tactile disturbances. Patient interested in attaining sober status and does report that the last time he went through detox unfortunately he did not remain sober for long but is interested in attempting again. He does report that his anxiety and depression have been worse work-up in the ED included T97.2, heart rate 83, BP 104/81, respiratory rate 18, 95% oxygenation on room air, CBC with WC 5.0, hemoglobin 12.8, MCV 94.4, platelet 273 without marked shift, CMP with BUN/creatinine 21/0.88 otherwise not marked appearing, at the alcohol less than 3, UDS pending upon requested evaluation of patient. [facility] Medical History (Updated 04/26/23 @ 19:[address] Alisha Mcintyre MD) Active substance abuse Alcohol abuse Anxiety and depression Asthma with COPD Bulla of lung GERD (gastroesophageal reflux disease) Hypertension Inguinal hernia bilateral, non-recurrent Methamphetamine abuse Past history of chewing tobacco use Stroke/cerebrovascular accident Home Medications albuterol sulfate 90 mcg/actuation aerosol inhaler (Ventolin HFA) 1 - 2 puff inhalation Q4H PRN PRN Wheezing #1 device 09/09/22 [Rx Last Taken Unknown] albuterol sulfate 90 mcg/actuation aerosol inhaler (ProAir HFA) 2 puff inhalation Q6H PRN shortness of breath or wheezing #8.5 grams 12/02/22 [Rx Last Taken 12/23/22] albuterol sulfate 90 mcg/actuation aerosol inhaler (Ventolin HFA) 1 - 2 puff inhalation Q4H PRN PRN Wheezing #1 inh 01/22/23 [Rx Last Taken Unknown] prednisone 20 mg tablet 40 mg (2 x 20 mg) PO DAILY 5 days #10 tabs 01/22/23 [Rx Last Taken Unknown] albuterol sulfate 90 mcg/actuation aerosol inhaler (Ventolin HFA) 2 puff inhalation Q4H PRN PRN Wheezing ##1 03/26/23 [Rx Last Taken Unknown] naproxen 500 mg tablet 500 mg PO BID #14 tabs 03/26/23 [Rx Last Taken Unknown] penicillin V potassium 500 mg tablet 500 mg PO 4X/DAY #40 tabs 03/26/23 [Rx Last Taken Unknown] Allergy/AdvReac Type Severity Reaction Status Date / Time No Known Allergies Allergy Verified 04/26/23 16:53 Family History Father Alcoholism CAD (coronary artery disease) Heart disease Hypertension Mother Alcoholism Seizures Surgical History History of ankle surgery Social History (Updated 04/26/23 @ 19:[address] Alisha Mcintyre MD) housing: homeless Smoking Status: Never smoker Smokeless tobacco user: chewing tobacco how long ago did patient quit smoking: Notes no cig tob use, prior chew only but no current, ongoing cannabis use. alcohol intake: current details: 5-6 beers daily, occasionally whiskey. substance use type: marijuana, opiates and methamphetamine ROS ROS Narrative Admission Review of Systems: CONSTITUTIONAL: No weight loss, fever, + chills, weakness or fatigue. HEENT: Eyes: No visual loss, blurred vision, double vision or yellow sclerae. Ears, Nose, Throat: No hearing loss, sneezing, congestion, runny nose or sore throat. SKIN: No rash or itching, lesions, wounds. CARDIOVASCULAR: No chest pain, chest pressure or chest discomfort, palpitations,edema, orthopnea, syncopal events. RESPIRATORY: + Occasional cough, no recent increased sputum or wheezing. No hemoptysis. GASTROINTESTINAL: + anorexia, nausea. No vomiting or diarrhea, abdominal pain, melena, BRBPR. GENITOURINARY: No dysuria, frequency, urgency or retention. NEUROLOGICAL: + Mild tremors, speech changes/aphasia, tactile disturbances. No headache, dizziness, syncope, paralysis, ataxia, numbness or tingling in the extremities, focal weakness, change in bowel or bladder control, seizure. MUSCULOSKELETAL: + muscle, back pain, joint pain or stiffness. HEMATOLOGIC: + anemia, bleeding or bruising. LYMPHATICS: No enlarged nodes. No history of splenectomy. PSYCHIATRIC: + history of depression or anxiety. ENDOCRINOLOGIC: No reports of sweating, cold or heat intolerance. No polyuria orpolydipsia. ALLERGIES: + history of asthma, rhinitis. Vital Signs Vital Signs Vital Signs: 04/26/23 16:53 Temperature 97.2 F L Temperature Source Temporal Pulse Rate 83 Respiratory Rate 18 Blood Pressure 104/81 H Blood Pressure Mean 88 Pulse Ox 95 Oxygen Delivery Method Room Air Weight Weight: 126 lb 6.4 oz Body Mass Index (BMI) 20.4 Physical Exam Narrative Physical Examination: General: Awake, alert, oriented x 3 and cooperative, seated upright in ED bed, mildly restless, chronic aphasia present, unchanged from prior evaluation. Skin: Normal color, normal turgor, no icterus, no cyanosis except psoriatic skinchange to hands and occasional abrasion/staged ecchymoses. HEENT: AT/NC, EOMI, PERRLA, mildly dry MM, no carotid bruits or JVD noted. Lungs: Mildly diminished, > bases, occasional end expiratory wheeze, he notes improved from recent exacerbation, no rales or marked rhonchi. Heart: Currently regular rhythm; no gallop, rub audible. Abdomen: Soft, thin habitus, NTTP, ND, mildly hyperactive BS, + HM. Extremities: No cyanosis, clubbing, or edema. Neurological: Patient awake, alert, oriented as noted, cognitive function appears baseline intact; pupils equally reactive to light and accommodation, cranial nerves grossly normal, moving all 4 extremities, no focal deficits, strength mildly globally decreased secondary to acute presentation, mildly tremulous, anxious, restless, chronic aphasia. Psychiatric: Affect appears mildly anxious, restless, reports underlying anxietyand depression which has been worse. Results Lab / Micro Data 04/26/23 18:10 04/26/23 18:10 Labs: Laboratory Results - last 24 hr 04/26/23 18:10: WBC 5.0, RBC 4.12 L, Hgb 12.8 L, Hct 38.9 L, MCV 94.4 H, MCH 31.1, MCHC 32.9, RDW Std Deviation 43.1, RDW Coeff of Bridger 12.5, Plt Count 273, MPV 8.7, Immature Gran % (Auto) 0.200, Neut % (Auto) 56.3, Lymph % (Auto) 22.0, Nye % (Auto) 6.0, Eos % (Auto) 14.7 H, Baso % (Auto) 0.8, Absolute Neuts (auto)2.8, Absolute Lymphs (auto) 1.11, Nucleated RBC % 0, Sodium 139, Potassium 4.0, Chloride 107, Carbon Dioxide 29.0, Anion Gap 3 L, BUN 21 H, Creatinine 0.88, Estim Creat Clear Calc 84.16, Est GFR (MDRD) Af Amer 119, Est GFR (MDRD) Non-Af 99, BUN/Creatinine Ratio 23.9 H, Glucose 98, Calcium 8.9, Total Bilirubin 0.40, AST 26, ALT 43, Alkaline Phosphatase 51, Total Protein 7.4, Albumin 3.5, Globulin 3.9, Albumin/Globulin Ratio 0.9, Ethyl Alcohol < 3.0 Assessment & Plan Assessment/Plan (1) Alcohol withdrawal: PLAN: Plan The patient is a 47 y/o M w/ PMHx: Hx CVA, Hx Chew tobacco use, Polysubstance abuse (cannabis, opiates, methampetamine), EtOH abuse, COPD/Asthma w/ known bulla, GERD, HTN, HLD who presents to the [facility] ED on 04/26/23 with acute EtOH withdrawal for detoxification treatment. #1. Acute EtOH Withdrawal: Will admit to [facility], routine labs obtained in the ED upon presentation and not marked appearing, awaiting UDS. Given interest in sobriety, will initiate and continue on protocol with taper course of Phenobarbital, as needed Catapres, gabapentin, Bentyl, Vistaril, IV fluids, IV antiemetics, Tylenol as needed for pain. Will consult Case management for assistance for transition to next level of rehabilitation care. Mag, phos pending. May add CIWA overlap with PRN ativan if symptoms notable. #2. Asthma/COPD: Not on any chronic regimen, will maintain on twice daily budesonide therapy as well as as needed albuterol, encourage tobacco cessation. #3. Hypertension: Noted previous history in the past, BP low normal, continue to monitor, PRN IV hydralazine. #4. Chew Tobacco Abuse: Encouraged cessation, inpatient consultation per RT, NRif desired. #5. Anxiety and depression: Not on any regimen, likely contributing to ongoing alcohol and polysubstance abuse, encourage counseling and medication consideration outpatient if appropriate. #6. Polysubstance abuse: Prior presentations with UDS notable for polysubstanceabuse including Opiates/Cannabis/Methamphetamines, encourage both clean and sober status. CM consulted as noted. UDS pending upon admission. Records review with very report HIV/hepatitis assessment. Given polysubstance abuse will obtainHIV, RPR, hepatitis panel which was discussed with patient and he was notably amenable and eager for these results. #7. Hx prior CVA w/ chronic aphasia: Poor historian, will continue asa, not on hypertensive regimen or statin therapy, BP currently normal range. #8. Normocytic anemia, chronic component: Admission hemoglobin 12.8, MCV mildlyelevated 94.4, prior normal range, appears similar to prior recent baseline 11-12, continue to assess outpatient. #9. DVT prophylaxis: Low risk, encourage ambulation. Charges/Coding Visit Charges Inpatient E&M: 33452 Init Hosp L2 04/26/231922 <Electronically signed by Alisha Mcintyre MD> Cosigner Signature (if applicable): CC: Dr. Alisha Mcintyre MD; No Primary Care Physician~ Signed ADDENDUM by Dr. Alisha Mcintyre MD on 04/26/23 at 2205 Addendum Patient now refusing HIV/Hepatitis/RPR testing. 04/26/232204<Electronically signed by Alisha Mcintyre MD> Cosigner Signature (if applicable): cc: Dr. Alisha Mcintyre MD; No Primary Care Physician ~* Signed ADDENDUM by Dr. Alisha Mcintyre MD on 04/26/23 at 2338 Addendum Patient upon transition to floor as noted had declined further lab testing including HIV, RPR and hepatitis however it was able to be run through the ED labs with no further need for a lab draw with currently noted preliminarily reactive hepatitis C otherwise syphilis nonreactive, HIV nonreactive. 04/26/23 6157<Electronically signed by Alisha Mcintyre MD> Cosigner Signature (if applicable): cc: Dr. Alisha Mcintyre MD; No Primary Care Physician ~* Signed [facility] Work Phone: [phone]) 699-402207-27-2023 Discharge summary Author Graham Messina [facility] April 26, 2023 11:18pm Note Date/Time April 26, 2023 7:[address] [facility] Medical Records Department [address] [place] [address] Emergency Department Summary 04/26/23 MR#: [id number] Acct: [id number] Name: MICHAEL MCNEILL SANTOS Rep #:[id number] : 1975 47 From: Graham Anderson PCP: Care Physician,No Primary Status :ADM IN Location: [place] [address] HPI History of Present Illness Chief Complaint: ETOH Intox Informant: patient Onset/Context/Timing Onset: Yesterday Context: Gradual Onset Timing: Continuous Quality: Shaky Location: Generalized Associated Symptoms Associated Symptoms: Positive for tremor; Negative for vomiting*, diarrhea*, fever*, rash*, seizure, palpatations, change in mental status, trauma, suicidal ideation or homicidal ideation Narrative Narrative: Patient presents requesting detox from alcohol. Patient states he drinks 6 beers per day. Patient states he has gone through detox here in the past. Patient is not sure when his last detox was. Patient states his last drink was last night. Patient states he feels shaky. Patient denies any nausea or vomiting. Patient admits to some subjective chills. Patient states his anxietyhas gotten worse. Patient denies any suicidal or homicidal ideations. [facility] Medical History Active substance abuse Alcohol abuse Alcohol withdrawal Anxiety and depression Asthma with COPD Bulla of lung GERD (gastroesophageal reflux disease) Hypertension Inguinal hernia bilateral, non-recurrent Methamphetamine abuse Past history of chewing tobacco use Stroke/cerebrovascular accident Home Medications albuterol sulfate 90 mcg/actuation aerosol inhaler (Ventolin HFA) 1 - 2 puff inhalation Q4H PRN PRN Wheezing #1 device 09/09/22 [Rx Last Taken Unknown] albuterol sulfate 90 mcg/actuation aerosol inhaler (ProAir HFA) 2 puff inhalation Q6H PRN shortness of breath or wheezing #8.5 grams 12/02/22 [Rx Last Taken 12/23/22] albuterol sulfate 90 mcg/actuation aerosol inhaler (Ventolin HFA) 1 - 2 puff inhalation Q4H PRN PRN Wheezing #1 inh 01/22/23 [Rx Last Taken Unknown] prednisone 20 mg tablet 40 mg (2 x 20 mg) PO DAILY 5 days #10 tabs 01/22/23 [Rx Last Taken Unknown] albuterol sulfate 90 mcg/actuation aerosol inhaler (Ventolin HFA) 2 puff inhalation Q4H PRN PRN Wheezing ##1 03/26/23 [Rx Last Taken Unknown] naproxen 500 mg tablet 500 mg PO BID #14 tabs 03/26/23 [Rx Last Taken Unknown] penicillin V potassium 500 mg tablet 500 mg PO 4X/DAY #40 tabs 03/26/23 [Rx Last Taken Unknown] Allergy/AdvReac Type Severity Reaction Status Date / Time No Known Allergies Allergy Verified 04/26/23 16:53 Family History Father Alcoholism CAD (coronary artery disease) Heart disease Hypertension Mother Alcoholism Seizures Surgical History History of ankle surgery Social History housing: homeless Smoking Status: Never smoker Smokeless tobacco user: chewing tobacco how long ago did patient quit smoking: Notes no cig tob use, prior chew only, ongoing cannabis use. alcohol intake: current details: 5-6 beers daily, whiskey. substance use type: marijuana, opiates and methamphetamine ROS ROS ED Constitutional Constitutional ED: Reports chills and subjective; Denies fever(s) Eyes Eyes: Denies blurry vision or change in vision ENT ENT ED: Denies rhinorrhea or sore throat Cardiovascular Cardiovascular: Denies chest pain or palpitations Respiratory/Chest Respiratory/Chest: Denies cough or dyspnea Gastrointestinal Gastrointestinal: Denies nausea or vomiting Genitourinary Genitourinary ED: Denies dysuria or hematuria Musculoskeletal Musculoskeletal: Denies back pain or neck pain Integumentary Denies abscess or rash Neurologic Neurologic: Denies headache(s) or weakness Psychiatric Psychiatric: Reports anxiety; Denies suicidal ideation or suicidal thoughts Allergic/Immunologic Allergic/Immunologic ED: Denies mouth swelling or urticaria EXAM Physical Exam Const Vital Signs: 04/26/23 16:53 Temperature 97.2 F L Temperature Source Temporal Pulse Rate 83 Respiratory Rate 18 Blood Pressure 104/81 H Blood Pressure Mean 88 Pulse Ox 95 Oxygen Delivery Method Room Air Positive well nourished and well developed General Appearance ED: well developed HEENT Reports moist mucous membranes Neck supple and no JVD Resp normal respiratory effort and clear to auscultation bilaterally Cardio regular rate and regular rhythm GI normal to inspection, nondistended, normoactive bowel sounds and non-tender Palpation: soft Extremity normal to inspection General Extremety ED: Negative for edema or tenderness General Extremity: Negative for edema Neuro oriented x3, CN's II-XII intact bilaterally and no sensory deficits noted Sensorium / Orientation: alert Motor Exam: strength 5/5 throughout Psych mental status grossly normal Skin no rashes or lesions noted MDM MDM MDM Narrative Medical decision making narrative: Differential diagnosis includes alcohol withdrawal, alcohol dependence, and substance abuse. Basic labs will be obtained for medical screening. CBC will be obtained to assess for leukocytosis and anemia. Comprehensive metabolic profile will be obtained to assess for hepatic function, renal function, and electrolyte abnormality. Urine tox screen will be obtained to assess for substance abuse. Serum alcohol level will be obtained to assess for alcohol intoxication. Lab Data Attestation: I reviewed the patient's lab results. Lab results narrative: CBC was reviewed. There is a slight anemia with a hemoglobin of 12.8 and hematocrit of 38.9. Platelets were normal. Comprehensive metabolic profile wasreviewed and was essentially within normal limits. Serum alcohol level was reviewed and was less than 3. Labs: Laboratory Results - last 24 hr 04/26/23 18:10 WBC 5.0 RBC 4.12 L Hgb 12.8 L Hct 38.9 L MCV 94.4 H MCH 31.1 MCHC 32.9 RDW Std Deviation 43.1 RDW Coeff of Bridger 12.5 Plt Count 273 MPV 8.7 Immature Gran % (Auto) 0.200 Neut % (Auto) 56.3 Lymph % (Auto) 22.0 Nye % (Auto) 6.0 Eos % (Auto) 14.7 H Baso % (Auto) 0.8 Absolute Neuts (auto) 2.8 Absolute Lymphs (auto) 1.11 Nucleated RBC % 0 Sodium 139 Potassium 4.0 Chloride 107 Carbon Dioxide 29.0 Anion Gap 3 L BUN 21 H Creatinine 0.88 Estim Creat Clear Calc 84.16 Est GFR (MDRD) Af Amer 119 Est GFR (MDRD) Non-Af 99 BUN/Creatinine Ratio 23.9 H Glucose 98 Calcium 8.9 Total Bilirubin 0.40 AST 26 ALT 43 Alkaline Phosphatase 51 Total Protein 7.4 Albumin 3.5 Globulin 3.9 Albumin/Globulin Ratio 0.9 Ethyl Alcohol < 3.0 Management Discussion w/another healthcare provider: Hospitalist (Dr. Mcintyre) Treatment and Re-Evaluation Narrative: Case was discussed with the hospitalist. She will admit the patient to her service. Patient understood and was agreeable with the plan. All questions were answered. Discharge Plan Dx/Rx/DC Orders Clinical Impression: Desire for detoxification, Alcohol withdrawal Disposition Disposition: Acute Care Hospital [facility] What to do if you have Problems For any increased pain, shortness of breath, bleeding, nausea or vomiting, chestpain, or any unexpected problems, contact your Primary Care Provider. Call [facility] ([phone]) or report to the closest Emergency Room. Call 911 if necessary. 04/26/237 <Electronically signed by Graham Messina DO> Cosigner Signature (if applicable): CC: No Primary Care Physician ~ Signed [facility] Work Phone: [phone]) 961-291003-25-2023 History and physical note Author Dr. Mcintyre [facility] December 23, 2022 10:52pm Note Date/Time December 23, 2022 10: 33pm [facility] Medical Records Department [address] [place] [address] History & Physical Exam 12/23/222224 MR#: [id number] Acct: [id number] Name: MICHAEL MCNEILL SANTOS Rep #:[id number] : 1975 47 From: Alisha Mcintyre MD PCP: Care Physician,No Primary Status :ADM IN Location: [place] [id number] HPI - General General Date of Admission: 12/23/22 Date of Service: 12/23/22 Chief Complaint: EtOH abuse, withdrawal. HPI Narrative The patient is a 47 y/o M w/ PMHx: Hx prior CVA, HTN, COPD/asthma, Former Tobacco use/Daily Cannabis user, Polysubstance abuse including Opiates/Cannabis/Methamphetamines, EtOH abuse (4-6 beers daily, occasional whiskey) with several admissions 2021 for alcohol detoxification, last noted 07/15/22- 07/18/22 who now re-presents to the [facility] ED on 12/23/22 with onset of alcohol withdrawal reporting that he has only been occasionally drinking but reports that he drink at least a pint of whiskey earlier in the day now presenting with alcohol withdrawal symptoms and fear that if he does not seek detox treatment he will go out and continue to drink with reported nausea, tremors, agitation, tactile disturbances. Patient interested in attaining sober status. Work-up in the ED included T96.9, heart rate 102, BP 124/87, respiratoryrate 16, 99% on room air, CBC with WC 7, hemoglobin 12.6, MCV 92.2, platelet 285without marked shift, CMP with glucose 114, AST/LT 49/67 otherwise not marked appearing, UDS with positive amphetamine/MDMA, ethyl alcohol 25. [facility] Medical History (Updated 12/23/22 @ 22:[address] Alisha Mcintyre MD) Active substance abuse Alcohol abuse Anxiety and depression Asthma with COPD Bulla of lung GERD (gastroesophageal reflux disease) Hypertension Inguinal hernia bilateral, non-recurrent Methamphetamine abuse Past history of chewing tobacco use Stroke/cerebrovascular accident Home Medications albuterol sulfate 90 mcg/actuation aerosol inhaler (Ventolin HFA) 1 - 2 puff inhalation Q4H PRN PRN Wheezing #1 device 09/09/22 [Rx Last Taken Unknown] albuterol sulfate 90 mcg/actuation aerosol inhaler (ProAir HFA) 2 puff inhalation Q6H PRN shortness of breath or wheezing #8.5 grams 12/02/22 [Rx Last Taken Unknown] Allergy/AdvReac Type Severity Reaction Status Date / Time No Known Allergies Allergy Verified 12/23/22 20:32 Family History Father Alcoholism CAD (coronary artery disease) Heart disease Hypertension Mother Alcoholism Seizures Surgical History History of ankle surgery Social History (Updated 12/23/22 @ 22:[address] Alisha Mcintyre MD) housing: homeless Smoking Status: Never smoker Smokeless tobacco user: chewing tobacco how long ago did patient quit smoking: Notes no cig tob use, prior chew only, ongoing cannabis use. alcohol intake: current details: 5-6 beers daily, whiskey. substance use type: marijuana, opiates and methamphetamine ROS ROS Narrative Admission Review of Systems: CONSTITUTIONAL: No weight loss, fever, chills, + weakness or fatigue. HEENT: Eyes: No visual loss, blurred vision, double vision or yellow sclerae. Ears, Nose, Throat: No hearing loss, sneezing, congestion, runny nose or sore throat. SKIN: No rash or itching, lesions, wounds. CARDIOVASCULAR: No chest pain, chest pressure or chest discomfort, palpitations,edema, orthopnea, syncopal events. RESPIRATORY: + Occasional cough, no recent increased sputum or wheezing. No hemoptysis. GASTROINTESTINAL: No anorexia, nausea, vomiting or diarrhea, abdominal pain, melena, BRBPR. GENITOURINARY: No dysuria, frequency, urgency or retention. NEUROLOGICAL: + Mild tremors, speech changes/aphasia, tactile disturbances. No headache, dizziness, syncope, paralysis, ataxia, numbness or tingling in the extremities, focal weakness, change in bowel or bladder control, seizure. MUSCULOSKELETAL: + muscle, back pain, joint pain or stiffness. HEMATOLOGIC: + anemia, bleeding or bruising. LYMPHATICS: No enlarged nodes. No history of splenectomy. PSYCHIATRIC: + history of depression or anxiety. ENDOCRINOLOGIC: No reports of sweating, cold or heat intolerance. No polyuria orpolydipsia. ALLERGIES: + history of asthma, rhinitis. Vital Signs Vital Signs Vital Signs: 12/23/22 20:33 12/23/22 22:18 12/23/22 22:18 Temperature 96.9 F L 98.8 F Temperature Source Temporal Temporal Pulse Rate 102 H Respiratory Rate 16 Blood Pressure 124/87 H Blood Pressure Mean 99 Pulse Ox 99 98 Oxygen Delivery Method Room Air Room Air Weight Weight: 131 lb 3.2 oz Body Mass Index (BMI) 20.5 Physical Exam Narrative Physical Examination: General: Awake, alert, oriented x 3 and cooperative, seated upright in ED bed, mildly restless, chronic aphasia. Skin: Normal color, normal turgor, no icterus, no cyanosis except psoriatic skinchange to hands. HEENT: AT/NC, EOMI, PERRLA, mildly dry MM, no carotid bruits or JVD noted. Lungs: Mildly diminished, > bases, occasional end expiratory wheeze, he notes improved from recent exacerbation, no rales or marked rhonchi. Heart: Mildly tach with regular rhythm; no gallop, rub audible. Abdomen: Soft, thins habitus, NTTP, ND, distant normal BS, + HM. Extremities: No cyanosis, clubbing, or edema. Neurological: Patient awake, alert, oriented as noted, cognitive function appears baseline intact; pupils equally reactive to light and accommodation, cranial nerves grossly normal, moving all 4 extremities, no focal deficits, strength mildly globally decreased secondary to acute presentation, impending withdrawal, chronic aphasia. Psychiatric: Affect appears flat, no acute evidence of depressive or anxiety feelings but does have underlying history. Results Lab / Micro Data Result Diagrams: 12/23/22 21:20 12/23/22 21:20 Labs: Laboratory Results - last 24 hr 12/23/22 21:20: WBC 7.0, RBC 4.09 L, Hgb 12.6 L, Hct 37.7 L, MCV 92.2, MCH 30.8,MCHC 33.4, RDW Std Deviation 42.5, RDW Coeff of Bridger 12.6, Plt Count 285, MPV 9.0, Immature Gran % (Auto) 0.300, Neut % (Auto) 69.3, Lymph % (Auto) 17.4 L, Nye % (Auto) 5.3, Eos % (Auto) 7.0 H, Baso % (Auto) 0.7, Absolute Neuts (auto) 4.8, Absolute Lymphs (auto) 1.21, Nucleated RBC % 0 12/23/22 21:20: Ethyl Alcohol 25.0 12/23/22 21:20: Urine Opiates Screen NEGATIVE, Urine Methadone Screen NEGATIVE, Ur Barbiturates Screen NEGATIVE, Ur Phencyclidine Scrn NEGATIVE, Ur AmphetaminesScreen POSITIVE H, MDMA (Ecstasy) Screen POSITIVE H, U Benzodiazepines Scrn NEGATIVE, Urine Cocaine Screen NEGATIVE, U Cannabinoids Screen NEGATIVE, Ur DrugScreen Comment 12/23/22 21:20: Sodium 139, Potassium 3.5, Chloride 105, Carbon Dioxide 25.0, Anion Gap 9, BUN 29 H, Creatinine 0.82, Estim Creat Clear Calc 93.74, Est GFR (MDRD) Af Amer 130, Est GFR (MDRD) Non-Af 107, BUN/Creatinine Ratio 35.4 H, Glucose 114 H, Calcium 8.8, Total Bilirubin 0.30, AST 49 H, ALT 67 H, Alkaline Phosphatase 48, Total Protein 7.4, Albumin 3.5, Globulin 3.9, Albumin/Globulin Ratio 0.9 Assessment & Plan Assessment/Plan (1) Alcohol withdrawal: PLAN: Plan The patient is a 47 y/o M w/ PMHx: Hx prior CVA, HTN, COPD/asthma, Former Tobacco use/Daily Cannabis user, Polysubstance abuse including Opiates/Cannabis/Methamphetamines, EtOH abuse (4-6 beers daily, occasional whiskey) with several admissions 2021 for alcohol detoxification, last noted 07/15/22- 07/18/22 who now re-presents to the [facility] ED on 12/23/22 with onset of alcohol withdrawal reporting that he has only been occasionally drinking but reports that he drink at least a pint of whiskey earlier in the day now presenting with alcohol withdrawal symptoms. #1. Acute EtOH Withdrawal: Will admit to [facility], routine labs obtained in the ED upon presentation and pending upon evaluation. Given interest in sobriety, will initiate and continue on protocol with taper course of Phenobarbital, as needed Catapres, gabapentin, Bentyl, Vistaril, IV fluids, IV antiemetics, Tylenol as needed for pain. Will consult Case management for assistance for transition to next level of rehabilitation care. Mag, phos pending. May add CIWA overlap with PRN ativan if symptoms notable. #2. Asthma/COPD: Not on any chronic regimen, will maintain on twice daily budesonide therapy as well as as needed albuterol, encourage tobacco cessation. #3. Hypertension: Noted previous history in the past BPs have been elevated however this is in the acute alcohol withdrawal setting, currently BP within normal range, continue monitor and add regimen if appropriate, PRN IV hydralazine in the interim. #4. Tobacco Abuse: Encouraged cessation, inpatient consultation per RT, NR if desired. #5. Anxiety and depression: Not on any regimen, likely contributing to ongoing alcohol abuse, encourage strongly follow-up with counseling with 180. #6. Polysubstance abuse: Prior presentations with UDS notable for polysubstanceabuse including Opiates/Cannabis/Methamphetamines, encourage both clean and sober status, UDS of note with positive amphetamine/MDMA. CM consulted as noted. #7. Hx prior CVA w/ chronic aphasia: Poor historian, will continue asa, not on hypertensive regimen or statin therapy, BP currently in normal range but continue to monitor, encourage outpatient close follow-up #8. Normocytic anemia, chronic component: Admission hemoglobin 12.6, MCV normalrange, most recently prior to this 11/03/2022 hemoglobin 11.8 however baseline hadbeen 13-14 until then, iron panel, ferritin, guiac, vitamin B12/folic acid as patient is significant lost to follow-up risk. As noted currently on baby ASA although non-compliant with medications. #9. DVT prophylaxis: Low risk, encourage ambulation. Admission Evaluation Time spent evaluating chart, patient history, patient evaluation, care planning and discussion with specialists: 55 minutes. Charges/Coding Visit Charges Inpatient E&M: 26077 Init Hosp L2 12/23/22 2252 <Electronically signed by Alisha Mcintyre MD> Cosigner Signature (if applicable): CC: Dr. Alisha Mcintyre MD; No Primary Care Physician~ Signed [facility] Work Phone: [phone] De Anda [facility] December 23, 2022 10:30pm Note Date/Time December 23, 2022 10: 30pm [facility] Medical Records Department [address] [place] [address] Emergency Department Summary 12/23/22 MR#: [id number] Acct: [id number] Name: MICHAEL MCNEILL Rep #:[id number] : 1975 47 From: Michael De Anda DO PCP: Care Physician,No Primary Status :REG ER Location: ED HPI History of Present Illness Chief Complaint: ETOH Intox Narrative Narrative: 47-year-old male presenting for alcohol detox. He states his last drink was earlier today. He states he drank a pint of whiskey today. He states he was concerned if he did not come to the ER he would buy more pints of whiskey. He has a history of EtOH abuse. He reports that he has been drinking a few times aweek. He is concerned that he might have withdrawal symptoms but he is also more concerned that he would be buying more whiskey if he leaves the hospital today. He is not actively withdrawing currently. PFSH PFSH Medical History Active substance abuse Alcohol abuse Anxiety and depression Asthma with COPD Bulla of lung GERD (gastroesophageal reflux disease) Hypertension Inguinal hernia bilateral, non-recurrent Methamphetamine abuse Stroke/cerebrovascular accident Tobacco use Home Medications albuterol sulfate 90 mcg/actuation aerosol inhaler (Ventolin HFA) 1 - 2 puff inhalation Q4H PRN PRN Wheezing #1 device 09/09/22 [Rx Last Taken Unknown] albuterol sulfate 90 mcg/actuation aerosol inhaler (ProAir HFA) 2 puff inhalation Q6H PRN shortness of breath or wheezing #8.5 grams 12/02/22 [Rx Last Taken Unknown] Allergy/AdvReac Type Severity Reaction Status Date / Time No Known Allergies Allergy Verified 12/23/22 20:32 Family History Father Alcoholism CAD (coronary artery disease) Heart disease Hypertension Mother Alcoholism Seizures Surgical History History of ankle surgery Social History housing: homeless Smoking Status: Former smoker how long ago did patient quit smoking: Former occasional cigarette user. Still smokes cannabis, often daily. alcohol intake: current details: 5-6 beers daily, whiskey. substance use type: marijuana, opiates and methamphetamine ROS ROS ED Constitutional Constitutional ED: Denies chills or fever(s) Eyes Eyes: Denies change in vision or diplopia ENT ENT ED: Denies rhinorrhea or sore throat Cardiovascular Cardiovascular: Denies chest pain or palpitations Respiratory/Chest Respiratory/Chest: Denies cough or dyspnea Gastrointestinal Gastrointestinal: Denies abdominal pain, constipation or nausea Genitourinary Genitourinary ED: Denies dysuria Musculoskeletal Musculoskeletal: Denies arthralgias or back pain Integumentary Denies abscess Neurologic Neurologic: Denies headache(s) or paresthesias Psychiatric Psychiatric: Denies anxiety or depression EXAM Physical Exam Const Vital Signs: 12/23/22 20:33 12/23/22 22:18 12/23/22 22:18 Temperature 96.9 F L 98.8 F Temperature Source Temporal Temporal Pulse Rate 102 H Respiratory Rate 16 Blood Pressure 124/87 H Blood Pressure Mean 99 Pulse Ox 99 98 Oxygen Delivery Method Room Air Room Air Positive well nourished General Appearance ED: NAD; Negative for pallor Eyes PERRL and EOMs intact bilaterally General Eye ED: Negative for pale conjunctiva or scleral icterus Resp normal respiratory effort Cardio regular rate Rate: tachycardic GI non-tender Neuro oriented x3 and CN's II-XII intact bilaterally Psych mental status grossly normal and thought process normal Skin General Skin Exam: Negative for jaundice or pallor MDM MDM MDM Narrative Medical decision making narrative: Patient presenting for alcohol detox. He is not actively withdrawing. He states his last drink was earlier today and he had a pint of whiskey. EtOH is 25. CBC and CMP are unremarkable. Urine positive for amphetamine and MDMA. Patient was discussed with hospitalist for admission for detox Impression: 1. History of alcohol abuse 2. Presentation for alcohol detox Lab Data Labs: Laboratory Results - last 24 hr 12/23/22 12/23/22 12/23/22 21:20 21:20 21:20 WBC 7.0 RBC 4.09 L Hgb 12.6 L Hct 37.7 L MCV 92.2 MCH 30.8 MCHC 33.4 RDW Std Deviation 42.5 RDW Coeff of Bridger 12.6 Plt Count 285 MPV 9.0 Immature Gran % (Auto) 0.300 Neut % (Auto) 69.3 Lymph % (Auto) 17.4 L Nye % (Auto) 5.3 Eos % (Auto) 7.0 H Baso % (Auto) 0.7 Absolute Neuts (auto) 4.8 Absolute Lymphs (auto) 1.21 Nucleated RBC % 0 Sodium Potassium Chloride Carbon Dioxide Anion Gap BUN Creatinine Estim Creat Clear Calc Est GFR (MDRD) Af Amer Est GFR (MDRD) Non-Af BUN/Creatinine Ratio Glucose Calcium Total Bilirubin AST ALT Alkaline Phosphatase Total Protein Albumin Globulin Albumin/Globulin Ratio Urine Opiates Screen NEGATIVE Urine Methadone Screen NEGATIVE Ur Barbiturates Screen NEGATIVE Ur Phencyclidine Scrn NEGATIVE Ur Amphetamines Screen POSITIVE H MDMA (Ecstasy) Screen POSITIVE H U Benzodiazepines Scrn NEGATIVE Urine Cocaine Screen NEGATIVE U Cannabinoids Screen NEGATIVE Ur Drug Screen Comment Ethyl Alcohol 25.0 12/23/22 21:20 WBC RBC Hgb Hct MCV MCH MCHC RDW Std Deviation RDW Coeff of Bridger Plt Count MPV Immature Gran % (Auto) Neut % (Auto) Lymph % (Auto) Nye % (Auto) Eos % (Auto) Baso % (Auto) Absolute Neuts (auto) Absolute Lymphs (auto) Nucleated RBC % Sodium 139 Potassium 3.5 Chloride 105 Carbon Dioxide 25.0 Anion Gap 9 BUN 29 H Creatinine 0.82 Estim Creat Clear Calc 93.74 Est GFR (MDRD) Af Amer 130 Est GFR (MDRD) Non-Af 107 BUN/Creatinine Ratio 35.4 H Glucose 114 H Calcium 8.8 Total Bilirubin 0.30 AST 49 H ALT 67 H Alkaline Phosphatase 48 Total Protein 7.4 Albumin 3.5 Globulin 3.9 Albumin/Globulin Ratio 0.9 Urine Opiates Screen Urine Methadone Screen Ur Barbiturates Screen Ur Phencyclidine Scrn Ur Amphetamines Screen MDMA (Ecstasy) Screen U Benzodiazepines Scrn Urine Cocaine Screen U Cannabinoids Screen Ur Drug Screen Comment Ethyl Alcohol Discharge Plan Triage Chief Complaint: ETOH Intox ED Provider: Michael De Anda Dx/Rx/DC Orders Prescriptions: No Action albuterol sulfate [Ventolin HFA] 90 mcg/actuation HFA aerosol inhaler 1 - 2 puff inhalation Q4H PRN PRN (Reason: Wheezing) Qty: 1 0RF albuterol sulfate [ProAir HFA] 90 mcg/actuation HFA aerosol inhaler 2 puff inhalation Q6H PRN (Reason: shortness of breath or wheezing) Qty: 8.5 0RF Primary Care Provider: Care Physician,No Primary Referrals: Care Physician,No Primary [Primary Care Provider] - What to do if you have Problems For any increased pain, shortness of breath, bleeding, nausea or vomiting, chestpain, or any unexpected problems, contact your Primary Care Provider. Call [facility] ([phone]) or report to the closest Emergency Room. Call 911 if necessary. 12/23/22 267 <Electronically signed by Michael Adilson DO> Cosigner Signature (if applicable): CC: No Primary Care Physician ~ Signed [facility] Work Phone: [phone] Garcia [facility] December 15, 2022 6:41pm Note Date/Time December 15, 2022 6:[address] [facility] Medical Records Department [address] [place] [address] Emergency Department Summary 12/15/22 MR#: [id number] Acct: [id number] Name: MICHAEL MCNEILL SANTOS Rep #:[id number] : 1975 47 From: Twan Garcia MD PCP: Care Physician,No Primary Status :REG ER Location: ED HPI History of Present Illness HPI Narrative: Lacerations to his left hand that occurred 1 to 2 weeks ago while working on a trailer. Patient came in to make sure they were not infected. Chief Complaint: Laceration Informant: patient Occured/Mechanism Mechanism/Context: Yes injury and Yes blunt trauma Onset/Context/Timing Onset: Weeks Context: Sudden Onset Timing: Continuous Quality of Pain: Dull Current Severity: Mild Maximum Severity: Mild Narrative Narrative: 47-year-old male that is left-hand dominant. States he was working on a trailerabout 1-1/2 weeks ago. Took off his gloves and cut his hand multiple times on aluminum on the trailer. Was not evaluated at that time. Came in today to makesure they are not infected. Prior similar symptoms: No Recent Illness/Hospitalization: No PFSH PFSH Medical History Active substance abuse Alcohol abuse Anxiety and depression Asthma with COPD [place] of lung GERD (gastroesophageal reflux disease) Hypertension Inguinal hernia bilateral, non-recurrent Methamphetamine abuse Stroke/cerebrovascular accident Tobacco use Home Medications albuterol sulfate 90 mcg/actuation aerosol inhaler (Ventolin HFA) 1 - 2 puff inhalation Q4H PRN PRN Wheezing #1 device 09/09/22 [Rx Last Taken Unknown] albuterol sulfate 90 mcg/actuation aerosol inhaler (ProAir HFA) 2 puff inhalation Q6H PRN shortness of breath or wheezing #8.5 grams 12/02/22 [Rx Last Taken Unknown] Allergy/AdvReac Type Severity Reaction Status Date / Time No Known Allergies Allergy Verified 12/15/22 18:22 Family History Father Alcoholism CAD (coronary artery disease) Heart disease Hypertension Mother Alcoholism Seizures Surgical History History of ankle surgery Social History housing: homeless Smoking Status: Former smoker how long ago did patient quit smoking: Former occasional cigarette user. Still smokes cannabis, often daily. alcohol intake: current details: 5-6 beers daily, whiskey. substance use type: marijuana, opiates and methamphetamine ROS ROS ED ROS Narrative Denies recent illness. Review of Systems ROS Unobtainable: Denies due to encephalopathy Constitutional Constitutional ED: Denies chills or fever(s) Eyes Eyes: Denies blurry vision ENT ENT ED: Denies ear pain Cardiovascular Cardiovascular: Denies chest pain Respiratory/Chest Respiratory/Chest: Denies cough or dyspnea Gastrointestinal Gastrointestinal: Denies abdominal pain Genitourinary Genitourinary ED: Denies dysuria or hematuria Musculoskeletal Musculoskeletal: Denies back pain Integumentary Denies abscess Neurologic Neurologic: Denies headache(s) Psychiatric Psychiatric: Denies anxiety Endocrine Endocrinology: Denies cold intolerance Hematologic/Lymphatic Hematologic/Lymphatic: Denies easy bleeding or easy bruising Allergic/Immunologic Allergic/Immunologic ED: Denies mouth swelling or tongue swelling EXAM Physical Exam Narrative Exam Narrative: Well-appearing 47-year-old male. Vital signs stable afebrile. HEENT exam unremarkable. Lungs clear. Heart regular rhythm. Left hand multiple old superficial lacerations to his hands. None are infected. No pus. No cellulitis. Normal flexion extension of the hand. No lymphangitic streaks. [place] have dry skin on the hand. No axillary lymphadenopathy. Const Vital Signs: 12/15/22 18:20 Temperature 97.8 F Temperature Source Temporal Pulse Rate 91 Respiratory Rate 18 Blood Pressure 126/81 H Blood Pressure Mean 96 Pulse Ox 99 Oxygen Delivery Method Room Air Positive well nourished and well developed; Negative for obese, cachectic, contractures or unkempt General Appearance ED: well developed and NAD; Negative for unkempt, cachectic, contractures, cyanotic or diaphoretic Nutritional Appearance: Negative for cachectic or obese HEENT Reports moist mucous membranes normocephalic and atraumatic; Negative for trauma or tenderness Eyes PERRL and EOMs intact bilaterally Neck full ROM and supple General: Negative for tenderness Lymph Lymphatic: Negative for other Chest Wall inspection of chest normal and palpation of chest normal Chest: Negative for other Resp normal respiratory effort and clear to auscultation bilaterally Effort and Inspection: Negative for pain with movement Auscultation: Negative for rales, rhonchi or wheezes Cardio regular rate, regular rhythm, S1 normal heart sound, S2 normal heart sound and no murmurs Rate: Negative for bradycardia or tachycardic Rhythm: Negative for abnormal rhythm GI non-tender, non-distended and no masses Inspection: Negative for abdominal distention Auscultation: normoactive bowel sounds Palpation: soft; Negative for tender or guarding Back/Spine no CVA tenderness General Back: Negative for CVA tenderness Cervical Spine: Negative for cervical spine tenderness Thoracic Spine / Upper Back: Negative for thoracic spinal tenderness Lumbar Spine / Lower Back: Negative for lumbar spinal tenderness Extremity normal to inspection and full ROM Extremity Narrative: Multiple lacerations to his left hand. They are cold. Dry skin. No pus. No cellulitis. No swelling. Full range of motion. No lymphangitic streaking. Noaxillary lymphadenopathy. General Extremety ED: Negative for edema or other findings General Extremity: Negative for edema or other findings Neuro oriented x3, moves all extremities and no focal motor deficits Sensorium / Orientation: alert, oriented to person, oriented to place and oriented to time; Negative for orientation impaired, lethargic or stuporous Motor Exam: strength 5/5 throughout Psych mental status grossly normal Appearance: Negative for unkempt Attitude: No agitated Mood & Affect: Negative for depressed, anxious or tearful Skin Skin Narrative: Multiple sleep facial lacerations to his left hand. All old. Noninfected. Lesions: no lesions Rashes: no rashes Trauma: laceration; Negative for no lacerations or abrasions MDM MDM MDM Narrative Medical decision making narrative: Patient with things and overall in the sink. Nurse will apply antibiotic ointment and discharge him to home. He needs no repair at this time and all thewounds are a week and a half old. Currently no infection. Discharge Plan Triage Chief Complaint: Laceration ED Provider: Twan Garcia Dx/Rx/DC Orders Clinical Impression: Laceration of left hand Instructions: ED Laceration Small or ... Prescriptions: No Action albuterol sulfate [Ventolin HFA] 90 mcg/actuation HFA aerosol inhaler 1 - 2 puff inhalation Q4H PRN PRN (Reason: Wheezing) Qty: 1 0RF albuterol sulfate [ProAir HFA] 90 mcg/actuation HFA aerosol inhaler 2 puff inhalation Q6H PRN (Reason: shortness of breath or wheezing) Qty: 8.5 0RF Primary Care Provider: Care Physician,No Primary Referrals: Farooq Galloway MD [Non-Staff] - As Needed Care Physician,No Primary [Primary Care Provider] - Activity Restrictions/Additional Instructions: Wash your hand thoroughly daily. Apply antibiotic ointment to all this cuts on your left hand twice a day. Apply hand moisturizer twice a day your skin is getting very dry. Currently there is no signs of infection. Watch for pus, red streaks, fever or swelling of seen needs to be reevaluated. Disposition Disposition: Home, Self Care What to do if you have Problems For any increased pain, shortness of breath, bleeding, nausea or vomiting, chestpain, or any unexpected problems, contact your Primary Care Provider. Call [facility] ([phone]) or report to the closest Emergency Room. Call 911 if necessary. 12/15/22 184 <Electronically signed by Twan Garcia MD> Cosigner Signature (if applicable): CC: No Primary Care Physician ~ Signed [facility] Work Phone: [phone] Nieves [facility] November 03, 2022 3:22pm Note Date/Time November 03, 2022 1 :31pm [facility] Medical Records Department [address] [place] [address] Emergency Department Summary 11/03/22 MR#: [id number] Acct: [id number] Name: MICHAEL MCNEILL SANTOS Rep #:[id number] : 1975 46 From: Homar Nieves MD PCP: Care Physician,No Primary Status :REG ER Location: ED HPI HPI - Fall History of Present Illness Chief Complaint: Fall Narrative Narrative: 46-year-old male presents from the [employer] with injury to his face, mainly his upper lip. He states that he blacked out but was unsure for how long. He sustained injury to his mucosal surface of his upper lip. He denies any neck pain. He denies taking any medications and is unsure of his last tetanus immunization. He states that he stood up and just blacked out. [facility] Medical History Active substance abuse Alcohol abuse Anxiety and depression Asthma with COPD Bulla of lung GERD (gastroesophageal reflux disease) Hypertension Inguinal hernia bilateral, non-recurrent Methamphetamine abuse Stroke/cerebrovascular accident Tobacco use Home Medications albuterol sulfate 90 mcg/actuation aerosol inhaler (Ventolin HFA) 1 - 2 puff inhalation Q4H PRN PRN Wheezing #1 device 09/09/22 [Rx Last Taken Unknown] Allergy/AdvReac Type Severity Reaction Status Date / Time No Known Allergies Allergy Verified 11/03/22 13:02 Family History Father Alcoholism CAD (coronary artery disease) Heart disease Hypertension Mother Alcoholism Seizures Surgical History History of ankle surgery Social History housing: homeless Smoking Status: Former smoker how long ago did patient quit smoking: Former occasional cigarette user. Still smokes cannabis, often daily. alcohol intake: current details: 5-6 beers daily, whiskey. substance use type: marijuana, opiates and methamphetamine ROS ROS ED ROS Narrative Constitutional: No fever, no chills. HEENT: No sore throat. No neck pain. No loss of vision. No rhinorrhea. Upperlip laceration. Cardiovascular: No chest pain. No palpitations. No pedal edema. Respiratory: No cough, no shortness of breath. Abdominal: No abdominal pain. No nausea. No vomiting. Genitourinary: No dysuria. No hematuria. Musculoskeletal: No myalgias. No arthralgias. Neurologic: No headaches. No dizziness. No lightheadedness. Blacked out. Skin: No rash. No change in color. Psychiatric: No depression. No anxiety. EXAM Physical Exam Narrative Exam Narrative: Afebrile. Vital signs noted. HEENT: Normocephalic. Atraumatic. PERRL, EOMI. Neck soft and supple. No pointtenderness or step off. Mucosal laceration of upper lip with minimal active bleeding. Stellate with thin skin, almost complete avulsion noted. Total length approximately 2 cm. Probable total avulsion of right front tooth. Poor dentition with multiple dental caries. Dried blood bilateral nares. No active bleeding. Cardiovascular: Regular rate and rhythm. No murmurs, rubs, or gallops appreciated. Respiratory: No tachypnea. Lungs clear to auscultation bilaterally. Gastrointestinal: Abdomen soft, nontender, with normoactive bowel sounds. No rebound or guarding. Neurological: Awake. Alert. Nonfocal, nonlateralizing. Skin: No rash. Normal color. No pallor. Musculoskeletal: No pedal edema. Full range of motion extremities. Const Vital Signs: 11/03/22 12:58 11/03/22 13:05 11/03/22 14:23 Temperature 98.1 F Temperature Source Temporal Pulse Rate 85 Pulse Rate [Lying] 82 Pulse Rate [Sitting (for 1 minute prior to obtaining)] 87 Pulse Rate [Standing (for 1 minute prior to obtaining)] 93 Respiratory Rate 19 H Respiratory Effort Normal Non-Labored Respiratory Depth Normal Respiratory Pattern Normal Blood Pressure 123/87 H Blood Pressure [Lying] 119/80 Blood Pressure [Sitting (for 1 minute prior to obtaining)] 108/71 Blood Pressure [Standing (for 1 minute prior to obtaining)] 119/80 Blood Pressure Mean 99 Blood Pressure Mean [Lying] 93 Blood Pressure Mean [Sitting (for 1 minute prior to obtaining)] 83 Blood Pressure Mean [Standing (for 1 minute prior to obtaining)] 93 Pulse Ox 97 97 Oxygen Delivery Method Room Air Room Air 11/03/22 15:09 Temperature Temperature Source Pulse Rate 89 Pulse Rate [Lying] Pulse Rate [Sitting (for 1 minute prior to obtaining)] Pulse Rate [Standing (for 1 minute prior to obtaining)] Respiratory Rate 15 Respiratory Effort Respiratory Depth Respiratory Pattern Blood Pressure 122/66 H Blood Pressure [Lying] Blood Pressure [Sitting (for 1 minute prior to obtaining)] Blood Pressure [Standing (for 1 minute prior to obtaining)] Blood Pressure Mean 84 Blood Pressure Mean [Lying] Blood Pressure Mean [Sitting (for 1 minute prior to obtaining)] Blood Pressure Mean [Standing (for 1 minute prior to obtaining)] Pulse Ox 98 Oxygen Delivery Method Room Air MDM MDM MDM Narrative Medical decision making narrative: EKG will be obtained because of his reported syncopal episode. Additionally, I will obtain CT imaging of his face and of his brain. Baseline laboratories wereobtained including CBC to look for anemia as a cause of his syncope, along with electrolyte imbalance in the form of BMP. Orthostatics also obtained. I reviewed his laboratory work. He has a normal white count of 5.7, hemoglobin stable at 11.8, platelet count normal at 321. Electrolyte panel shows BUN slightly elevated 25 with creatinine 0.91. Glucose appropriately elevated at 152 with a normal anion gap/low at 4. CT of the brain was obtained. I reviewedthe images and see no evidence of intracranial hemorrhage on my interpretation. I also interpreted his CT of the facial bones and see no evidence of a nasal fracture. I reviewed the radiology report and they confirm that there is no hemorrhage or skull fracture or acute facial fracture noted. EKG was obtained and interpreted by myself which demonstrates normal sinus rhythm at 85 bpm without ectopy or acute ST changes. No STEMI. At this point in time, I am unsure as to the cause of his reported syncope. After lip laceration repair, I feel he can be discharged safely home with follow-up. The sutures are dissolvable as they are Vicryl and will start to come out by themselves. He wastold of the risk of infection and scarring and acknowledges an understanding. Additionally, it was noted on exam that he had a right front tooth avulsion. Itis no longer bleeding. He was told to follow-up with a dentist to soon as possible regarding this. I do not feel antibiotics are indicated. At this point in time, I feel he can be discharged safely home with follow-up. Return instructions were reviewed. Disposition is discharged home in stable condition. Lab Data Attestation: I reviewed the patient's lab results. Labs: Laboratory Results - last 24 hr 11/03/22 11/03/22 13:45 13:45 WBC 5.7 RBC 3.80 L Hgb 11.8 L Hct 35.4 L MCV 93.2 MCH 31.1 MCHC 33.3 RDW Std Deviation 43.3 RDW Coeff of Bridger 12.6 Plt Count 321 MPV 8.6 Immature Gran % (Auto) 0.200 Neut % (Auto) 60.9 Lymph % (Auto) 20.9 Nye % (Auto) 6.5 Eos % (Auto) 10.8 H Baso % (Auto) 0.7 Absolute Neuts (auto) 3.5 Absolute Lymphs (auto) 1.20 Nucleated RBC % 0 Sodium 140 Potassium 3.6 Chloride 107 Carbon Dioxide 29.0 Anion Gap 4 L BUN 25 H Creatinine 0.91 Estim Creat Clear Calc 88.52 Est GFR (MDRD) Af Amer 115 Est GFR (MDRD) Non-Af 95 BUN/Creatinine Ratio 27.6 H Glucose 152 H Calcium 8.6 Radiography Diagnostic Testing: Clinical Impression(s) from Imaging Studies Brain CT 11/03/22 13:09 IMPRESSION: Normal unenhanced CT scan of the brain. Electronically Signed: Juan Daniel Alvarez MD at 14:26 EST , Facial/Sinus 11/03/22 13:09 IMPRESSION: No acute fracture is seen. Electronically Signed: Juan Daniel Alvarez MD at 14:27 EST , Procedures Lacerations Upper lip laceration: Length: 0.79 in Depth: Skin Shape: Stellate Laceration repair: Irrigated, Lidocaine with epi (5 mL) and Local Suture Information: Vicryl (4.0), Simple (Total of 7 sutures) and 4-0 Discharge Plan Triage Chief Complaint: Fall ED Provider: Homar Nieves Dx/Rx/DC Orders Clinical Impression: Fall from standing, Syncope, Laceration of lip, Nasal contusion, Avulsion of tooth Instructions: ED Dental Trauma, ED Fall with Uncertain Cause, ED Laceration, Lip or Mouth, ED Nasal Contusion, ED Fainting, Uncertain Cause Prescriptions: No Action albuterol sulfate [Ventolin HFA] 90 mcg/actuation HFA aerosol inhaler 1 - 2 puff inhalation Q4H PRN PRN (Reason: Wheezing) Qty: 1 0RF Primary Care Provider: Care Physician,No Primary Referrals: Leslie Talley [Non-Staff] - 3-5 Days if not improving Care Physician,No Primary [Primary Care Provider] - Activity Restrictions/Additional Instructions: Follow-up with a dentist as soon as possible for your right front tooth avulsion. Disposition Disposition: Home, Self Care What to do if you have Problems For any increased pain, shortness of breath, bleeding, nausea or vomiting, chestpain, or any unexpected problems, contact your Primary Care Provider. Call [facility] ([phone]) or report to the closest Emergency Room. Call 911 if necessary. 11/03/22 1522 <Electronically signed by Homar Nieves MD> Cosigner Signature (if applicable): CC: No Primary Care Physician ~ Signed [facility] Work Phone: Consult note Author Charlie Cortes [facility] October 31, 2023 10:29am Note Date/Time October 31, 2023 1 0:29am [facility] Medical Records Department [address] [place] [id number] Counseling Note - Pharmacy 10/31/23 1028 MR#: [id number] Acct: [id number] Name: MICHAEL MCNEILL SANTOS Rep #:[id number] : 1975 47 From: Charlie Cortes PCP: Care Physician,No Primary Status :ADM IN Location: [place] [address] Pharmacy [place] Med Reconciliation Pharmacy Service has performed discharge medication reconciliation for this patient. The patient's discharge medication list was reviewed for discrepancies and discrepancies were resolved. Medications at Discharge Home Medications albuterol sulfate 90 mcg/actuation aerosol inhaler (Ventolin HFA) 1 - 2 puff inhalation Q4H PRN PRN Wheezing #1 device 09/09/22 albuterol sulfate 90 mcg/actuation aerosol inhaler (ProAir HFA) 2 puff inhalation Q6H PRN shortness of breath or wheezing #8.5 grams 12/02/22 multivitamin (Daily Multi-Vitamin tablet) 1 tab PO DAILY #30 tabs 10/31/23 10/31/23 1029 <Electronically signed by Charlie Keita r> Date _ Charlie Ratliffkapiledouard Signature (if applicable): Date CC: ~ Signed [facility] Work Phone: Discharge summary Author Dr. Mckeon [facility] December 24, 2022 11:31am Note Date/Time December 24, 2022 11: 17am [facility] Medical Records Department [address] [place] [address] Discharge Summary 12/24/22 1116 MR#: [id number] Acct: [id number] Name: MARKELLMICHAEL Rep #:[id number] : 1975 47 From: Nelson Mckeon DO PCP: Care Physician,No Primary Status :ADM IN Location: [place] [address] Providers Date of Admission: 12/23/22 Date of Discharge: 12/24/22 Primary Care Physician: No Primary Care Phys Reason For Visit: ETOH WITHDRAWL Diagnosis Discharge Diagnosis (1) Alcohol withdrawal: Status: Acute Code(s): F10.939 - Alcohol use, unspecified with withdrawal, unspecified Plan #1 Acute alcohol withdrawal #2 chronic alcoholism #3 noncompliant with medical regimen #4 polysubstance abuse Medications at Discharge Home Medications albuterol sulfate 90 mcg/actuation aerosol inhaler (Ventolin HFA) 1 - 2 puff inhalation Q4H PRN PRN Wheezing #1 device 09/09/22 albuterol sulfate 90 mcg/actuation aerosol inhaler (ProAir HFA) 2 puff inhalation Q6H PRN shortness of breath or wheezing #8.5 grams 12/02/22 Hospital Course Operations None Procedures None Summary of Care Provided Minutes Spent on Discharge: 30 Hospital Course: This 47-year-old white male was seen in the emergency room at [facility] requesting services for alcohol detox, patient's talk screen was positive for MDMA, amphetamines, and azithromycin alcohol level was 25. [facility], according to nursing, patient refused his medicationsfor alcohol detox on the morning of 12/24/2022, patient pulled his IV out and broke into his locker to obtain his personal effects and walked out of the hospital. Was not seen and examined on 12/24/2022 by myself. Weight / BMI Weight Weight: 56 kg Body Mass Index (BMI) 19.9 ABG / Lab / Microbiology Data Result Diagrams: 12/23/22 21:20 12/23/22 21:20 Laboratory: Laboratory Results - last 24 hr 12/23/22 21:20: WBC 7.0, RBC 4.09 L, Hgb 12.6 L, Hct 37.7 L, MCV 92.2, MCH 30.8,MCHC 33.4, RDW Std Deviation 42.5, RDW Coeff of Bridger 12.6, Plt Count 285, MPV 9.0, Immature Gran % (Auto) 0.300, Neut % (Auto) 69.3, Lymph % (Auto) 17.4 L, Nye % (Auto) 5.3, Eos % (Auto) 7.0 H, Baso % (Auto) 0.7, Absolute Neuts (auto) 4.8, Absolute Lymphs (auto) 1.21, Nucleated RBC % 0 12/23/22 21:20: Ethyl Alcohol 25.0 12/23/22 21:20: Urine Opiates Screen NEGATIVE, Urine Methadone Screen NEGATIVE, Ur Barbiturates Screen NEGATIVE, Ur Phencyclidine Scrn NEGATIVE, Ur AmphetaminesScreen POSITIVE H, MDMA (Ecstasy) Screen POSITIVE H, U Benzodiazepines Scrn NEGATIVE, Urine Cocaine Screen NEGATIVE, U Cannabinoids Screen NEGATIVE, Ur DrugScreen Comment 12/23/22 21:20: Sodium 139, Potassium 3.5, Chloride 105, Carbon Dioxide 25.0, Anion Gap 9, BUN 29 H, Creatinine 0.82, Estim Creat Clear Calc 93.74, Est GFR (MDRD) Af Amer 130, Est GFR (MDRD) Non-Af 107, BUN/Creatinine Ratio 35.4 H, Glucose 114 H, Calcium 8.8, Total Bilirubin 0.30, AST 49 H, ALT 67 H, Alkaline Phosphatase 48, Total Protein 7.4, Albumin 3.5, Globulin 3.9, Albumin/Globulin Ratio 0.9 12/23/22 21:20: Phosphorus 3.5, Magnesium 2.2, Iron 57 L, TIBC 335, Iron Saturation 17.0, Ferritin 27, Folate 16.10 Meaningful Use Info Meaningful Use Diagnoses (Choose all that apply): None applicable Discharge Plan Admission Admit Date/Time: 12/23/22 22:27 Primary Reason for Your Visit: alcohol detox Attending Provider: Nelson Mckeon Primary Care Provider: Care Physician,No Primary Consulting Providers: Alisha Mcintyre Discharge Orders/Prescriptions Prescriptions: No Action albuterol sulfate [Ventolin HFA] 90 mcg/actuation HFA aerosol inhaler 1 - 2 puff inhalation Q4H PRN PRN (Reason: Wheezing) Qty: 1 0RF albuterol sulfate [ProAir HFA] 90 mcg/actuation HFA aerosol inhaler 2 puff inhalation Q6H PRN (Reason: shortness of breath or wheezing) Qty: 8.5 0RF Referrals / Follow Up: Care Physician,No Primary [Primary Care Provider] - Disposition Disposition (needs filled in before D/C Order can be placed): Against Medical Advice 12/24/22 1131 <Electronically signed by Nelson Mckeon DO> Cosigner Signature (if applicable): CC: Dr. Nelson Mckeon, ; No Primary Care Physician~ Signed [facility] Work Phone: Discharge summary Author Jaquan Mabry [facility] April 28, 2023 9:43am Note Date/Time April 28, 2023 9:[address] [facility] Medical Records Department [address] [place] [id number] Discharge Summary 04/28/23 0935 MR#: [id number] Acct: [id number] Name: MICHAEL MCNEILL Rep #:[id number] : 1975 47 From: Jaquan Mabry MD PCP: Care Physician,No Primary Status :ADM IN Location: [place] [address] Providers Date of Admission: 04/26/23 Date of Discharge: 04/28/23 Primary Care Physician: No Primary Care Phys Reason For Visit: ETOH WITHDRAWAL Diagnosis Discharge Diagnosis (1) Alcohol withdrawal: Status: Acute Code(s): F10.939 - Alcohol use, unspecified with withdrawal, unspecified Qualifiers: Complication of substance-induced condition: uncomplicated Qualified Code(s): F10.930 - Alcohol use, unspecified with withdrawal, uncomplicated Plan Patient is a 47-year-old gentleman admitted with acute alcohol withdrawal 1. Acute alcohol withdrawal ? Patient admitted to a nursing floor managed with phenobarb taper in addition to adjuvant therapy ? 04/28/2023; Patient seen per nursing staff patient has been refusing phenobarb patient encouraged on the need to be compliant with the phenobarb taper 2. 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 Continue patient bronchodilator treatment. Currently not in exacerbation 3. Polysubstance dependence ? Including cannabis opiate and methamphetamine. Counseled on cessation 4. Tobacco dependence - Counseled on cessation, offered nicotine patch for tobacco cravings 5. 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 Remains stable 6. DVT prophylaxis ? Low risk did encourage ambulation Time spent in the patient's overall evaluation,decision-making process, review of diagnostic data, adjustment of management, discussion with other providers, nursing nursing and ancillary staff involved in patient's care documentation, 35 Minutes Medications at Discharge Home Medications albuterol sulfate 90 mcg/actuation aerosol inhaler (Ventolin HFA) 1 - 2 puff inhalation Q4H PRN PRN Wheezing #1 device 09/09/22 albuterol sulfate 90 mcg/actuation aerosol inhaler (ProAir HFA) 2 puff inhalation Q6H PRN shortness of breath or wheezing #8.5 grams 12/02/22 albuterol sulfate 90 mcg/actuation aerosol inhaler (Ventolin HFA) 1 - 2 puff inhalation Q4H PRN PRN Wheezing #1 inh 01/22/23 prednisone 20 mg tablet 40 mg (2 x 20 mg) PO DAILY not taking! 5 days #10 tabs 01/22/23 albuterol sulfate 90 mcg/actuation aerosol inhaler (Ventolin HFA) 2 puff inhalation Q4H PRN PRN Wheezing ##1 03/26/23 naproxen 500 mg tablet 500 mg PO BID pain #14 tabs 03/26/23 penicillin V potassium 500 mg tablet 500 mg PO 4X/DAY unknown why he taking #40 tabs 03/26/23 Hospital Course Summary of Care Provided Minutes Spent on Discharge: 35 Physical Exam Narrative GENERAL: cooperative HEENT: Atraumatic; normocephalic EYES; Anicteric, Normal Conjunctiva NECK; supple, normal thyroid, RESPIRATORY: Diminished to auscultation CARDIOVASCULAR: Regular S1 S2, GI: soft, normoactive bowel sounds, : No Renal angle tenderness; EXTREMITIES: No edema, no clubbing, MUSCULOSKELETAL: no muscle wasting NEURO: Awake; no lateralizing signs. SKIN: No Rash PSYCH; Flat affect Weight / BMI Weight Weight: 56.699 kg Body Mass Index (BMI) 20.1 ABG / Lab / Microbiology Data 04/26/23 18:10 04/26/23 18:10 D/C Instructions Discharge Diet: No restrictions Discharge Activity: Return to Normal Activity Call your doctor if you observe: Fever of 101 or Higher, Shortness of breath, Fainting spells and Chest pain Meaningful Use Info Meaningful Use Diagnoses (Choose all that apply): None applicable Discharge Plan Admission Admit Date/Time: 04/26/23 19:06 Attending Provider: Jaquan Mabry Primary Care Provider: Care Physician,No Primary Consulting Providers: Alisha Mcintyre Discharge Orders/Prescriptions Prescriptions: Continued albuterol sulfate [Ventolin HFA] 90 mcg/actuation HFA aerosol inhaler 1 - 2 puff inhalation Q4H PRN PRN (Reason: Wheezing) Qty: 1 0RF albuterol sulfate [ProAir HFA] 90 mcg/actuation HFA aerosol inhaler 2 puff inhalation Q6H PRN (Reason: shortness of breath or wheezing) Qty: 8.5 0RF albuterol sulfate [Ventolin HFA] 90 mcg/actuation HFA aerosol inhaler 1 - 2 puff inhalation Q4H PRN PRN (Reason: Wheezing) Qty: 1 0RF prednisone 20 mg tablet 40 mg PO DAILY 5 Days Qty: 10 0RF Hold Instructions: no longer taking Patient Comments: not t penicillin V potassium 500 mg tablet 500 mg PO 4X/DAY Qty: 40 0RF albuterol sulfate [Ventolin HFA] 90 mcg/actuation HFA aerosol inhaler 2 puff inhalation Q4H PRN PRN (Reason: Wheezing) Qty: 1 0RF naproxen 500 mg tablet 500 mg PO BID Qty: 14 0RF Hold Instructions: no longer takiing Referrals / Follow Up: Kristina Veloz DO [Med Staff - Consulting] - Within 1 Week (at 180) Care Physician,No Primary [Primary Care Provider] - Within 2 Weeks Disposition Disposition (needs filled in before D/C Order can be placed): Home, Self Care Charges/Coding Visit Charges Inpatient E&M: 19201 Disch Hosp >30min 04/28/23 0943 <Electronically signed by Jaquan Mabry MD> Cosigner Signature (if applicable): CC: Dr. Jaquan Mabry MD; No Primary Care Physician~ Signed [facility] Work Phone: Discharge summary Author Tae Walsh [facility] October 29, 2023 5:44am Note Date/Time October 29, 2023 4 :37am [facility] Medical Records Department [address] [place] [address] Emergency Department Summary 10/29/23 MR#: [id number] Acct: [id number] Name: MICHAEL MCNEILL SANTOS Rep #:[id number] : 1975 47 From: Tae Walsh MD PCP: Care Physician,No Primary Status :ADM IN Location: [place] [address] HPI History of Present Illness Chief Complaint: Substance Abuse Detail of Chief Complaint: Alcohol abuse and dependency Informant: patient Onset/Context/Timing Onset: Month(s) Context: Sudden Onset Timing: Intermittent Quality: Per HPI narrative Location: Not applicable about Current Severity: Moderate Maximum Severity: Moderate Worsened by: Nothing specific Relieved by: Nothing Associated Symptoms Associated Symptoms: Negative for vomiting*, diarrhea*, fever*, rash*, seizure, tremor, palpatations, change in mental status, sex for drugs*, no, suicidal ideation or homicidal ideation Narrative Narrative: Patient is a 47-year-old male with history of alcoholism who presents for detox. He states he was in a detox program over a year ago. Several months of abstinence. He began to drink slowly. Has been increasing over the past several weeks. He is increased significantly over the past week. There has been a day or so that he has not had something to drink. He is not experience any withdrawal symptoms. He is presently drinking 324 ounce bottles/cans of beer and also drinking all liquor/whiskey. The consumption of liquor is not normal for him. Patient denies smoking. He does smoke marijuana. He denies any other drug use. Patient is on disability because of cognitive impairment. He is presently unemployed. Patient denies headache, visual, ocular auditory symptoms. Patient denies cardiac or respiratory symptoms. Patient denies bruising easily. He is not on anticoagulant or antithrombotic. He does have an albuterol inhaler for his asthma. Prior similar symptoms: Yes Recent Illness/Hospitalization: No PFSH PFS Medical History (Updated 10/29/23 @ 05:[address] Tae Walsh MD) Alcohol abuse Ankle fracture, left Anxiety Anxiety and depression Asthma with COPD Bipolar disorder Bulla of lung Depression GERD (gastroesophageal reflux disease) Hypertension Inguinal hernia bilateral, non-recurrent Methamphetamine abuse Past history of chewing tobacco use Stroke/cerebrovascular accident Home Medications albuterol sulfate 90 mcg/actuation aerosol inhaler (Ventolin HFA) 1 - 2 puff inhalation Q4H PRN PRN Wheezing #1 device 09/09/22 [Rx Last Taken Unknown] albuterol sulfate 90 mcg/actuation aerosol inhaler (ProAir HFA) 2 puff inhalation Q6H PRN shortness of breath or wheezing #8.5 grams 12/02/22 [Rx Last Taken 12/23/22] Allergy/AdvReac Type Severity Reaction Status Date / Time No Known Allergies Allergy Verified 10/29/23 04:24 Family History Father Alcoholism CAD (coronary artery disease) Heart disease Hypertension Mother Alcoholism Seizures Surgical History History of ankle surgery Social History housing: homeless Smoking Status: Never smoker Smokeless tobacco user: chewing tobacco how long ago did patient quit smoking: Notes no cig tob use, prior chew only but no current, ongoing cannabis use. alcohol intake: current details: 5-6 beers daily, occasionally whiskey. substance use type: marijuana, opiates and methamphetamine ROS ROS ED Constitutional Constitutional ED: Denies chills, fever(s), subjective or sweats Eyes Eyes: Denies blurry vision or change in vision ENT ENT ED: Denies ear pain, rhinorrhea or sore throat Cardiovascular Cardiovascular: Denies chest pain or palpitations Respiratory/Chest Respiratory/Chest: Denies cough, dyspnea or dyspnea on exertion Gastrointestinal Gastrointestinal: Denies abdominal pain, diarrhea, melena, nausea or vomiting Genitourinary Genitourinary ED: Reports other Musculoskeletal Musculoskeletal: Denies arthralgias or myalgias Integumentary Denies rash Neurologic Neurologic: Denies headache(s) or paresthesias Endocrine Endocrinology: Denies cold intolerance or heat intolerance Hematologic/Lymphatic Hematologic/Lymphatic: Denies easy bleeding or easy bruising EXAM Physical Exam Const Vital Signs: 10/29/23 04:23 Temperature 97.9 F Temperature Source Temporal Pulse Rate 94 Respiratory Rate 18 Blood Pressure 124/58 H Blood Pressure Mean 80 Pulse Ox 98 Oxygen Delivery Method Room Air Positive well nourished and well developed Constitutional Narrative: Patient does stutter. He does have problems with fluency of his speech. General Appearance ED: well developed and NAD; Negative for pallor HEENT Reports moist mucous membranes atraumatic and trauma Eyes PERRL and EOMs intact bilaterally General Eye ED: Negative for pale conjunctiva or scleral icterus Neck no lymphadenopathy, supple and no JVD Lymph Lymphatic: no lymphadenopathy noted and lymphadenopathy Chest Wall inspection of chest normal and palpation of chest normal Resp normal respiratory effort and clear to auscultation bilaterally Cardio regular rate, regular rhythm, S1 normal heart sound, S2 normal heart sound and no murmurs GI soft to palpation, non-tender, non-distended and no masses Auscultation: hypoactive bowel sounds Back/Spine no CVA tenderness Back/Spine Narrative: Inspection of the back is normal. There is no tenderness. Extremity Extremity Narrative: There is no clubbing or acrocyanosis. General Extremety ED: Negative for edema or tenderness General Extremity: Negative for edema Neuro oriented x3 [place] Coma Scale: document GCS findings Spontaneous Obeys Commands Oriented 15 Sensorium / Orientation: alert Speech: speech normal Psych mental status grossly normal and thought process normal Skin General Skin Exam: Negative for jaundice or pallor Lesions: no lesions Rashes: no rashes MDM MDM MDM Narrative Medical decision making narrative: Patient presents for detox from alcohol. Patient is concerned if he attempts todecrease on his own he will go through withdrawal, which she has experienced in the past. Admission blood work was ordered. The hospitalist will follow those results. Plan is to admit to [facility]. Dr. Mcintyre who is on this evening has admitted Mr. Mcneill twice Blood work was obtained to rule out anemia, thrombocytopenia electrolyte abnormality, diabetes and renal dysfunction. Lab Data Attestation: I reviewed the patient's lab results. Lab results narrative: CBC reveals mild anemia. Electrolyte panel is unremarkable. Alcohol is trace positive. Talk screen is pending. Management Discussion w/another healthcare provider: Hospitalist Discharge Plan Triage Chief Complaint: Substance Abuse ED Provider: Tae Walsh Dx/Rx/DC Orders Clinical Impression: Alcohol dependence, Alcoholism, Alcohol abuse, Desire for detoxification Primary Care Provider: Care Physician,No Primary Disposition Disposition: Acute Care Hospital [facility] What to do if you have Problems For any increased pain, shortness of breath, bleeding, nausea or vomiting, chestpain, or any unexpected problems, contact your Primary Care Provider. Call [facility] ([phone]) or report to the closest Emergency Room. Call 911 if necessary. 10/29/23 0544 <Electronically signed by Tae Walsh MD> Cosigner Signature (if applicable): CC: No Primary Care Physician ~ Signed [facility] Work Phone: Discharge summary Author Graham Tolbert [facility] October 31, 2023 10:21am Note Date/Time October 31, 2023 1 0:17am [facility] Medical Records Department [address] [place] [id number] Discharge Summary 10/31/23 1015 MR#: [id number] Acct: [id number] Name: MICHAEL MCNEILL Rep #:[id number] : 1975 47 From: Graham Tolbert DO PCP: Care Physician,No Primary Status :ADM IN Location: [place] [address] Providers Date of Admission: 10/29/23 Primary Care Physician: No Primary Care Phys Reason For Visit: ETOH ABUSE, DETOX Diagnosis Discharge Diagnosis (1) Alcohol dependence: Status: Acute Code(s): F10.20 - Alcohol dependence, uncomplicated Plan Acute alcohol withdrawal * Patient treated with phenobarbital. * on thiamine, folic acid and multivitamin * monitor CIWA score * pt to follow up with the counseling center. Chronic conditions: * Hepatitis C infection: Patient's hepatitis C antibody was reactive back in April 2023. No hepatitis C antigen test available. Unclear if patient has active hepatitis C or not. His viral studies are still pending at this time. Advised patient that he will need to follow-up with primary care doctor in regards to following up on those final results when those to become available. Asked why he did not have that followed up when he was here in April he was evasive in regards to an answer. Did review with him and that his HIV studies were negative at that time and his hepatitis B antigen was positive but his surface antigen was negative so likely has had a history of hepatitis B exposure. * History of polysubstance abuse: Uses cannabis, opiates and methamphetamine. Counseled to quit. Complicates long-term recovery. * History of CVA: On aspirin. Not on any other medication. * Asthma and COPD: Not in exacerbation. Breathing treatments bronchodilators. DVT prophylaxis; SCDs Medications at Discharge Home Medications albuterol sulfate 90 mcg/actuation aerosol inhaler (Ventolin HFA) 1 - 2 puff inhalation Q4H PRN PRN Wheezing #1 device 09/09/22 albuterol sulfate 90 mcg/actuation aerosol inhaler (ProAir HFA) 2 puff inhalation Q6H PRN shortness of breath or wheezing #8.5 grams 12/02/22 multivitamin (Daily Multi-Vitamin tablet) 1 tab PO DAILY #30 tabs 10/31/23 Hospital Course Operations None Procedures None Weight / BMI Weight Weight: 60.498 kg Body Mass Index (BMI) 21.5 ABG / Lab / Microbiology Data 10/29/23 04:46 10/29/23 04:46 D/C Instructions Discharge Diet: No restrictions Meaningful Use Info Meaningful Use Diagnoses (Choose all that apply): None applicable Discharge Plan Admission Admit Date/Time: 10/29/23 04:39 Primary Reason for Your Visit: alcohol withdrawal. Attending Provider: Graham Tolbert Primary Care Provider: Care Physician,No Primary Consulting Providers: Alisha Mcintyre; Amparo Nguyen Instructions Additional Instructions / Restrictions: Follow-up with the counseling center. Follow-up with the primary care provider. I you did have a viral panel for hepatitis C to see if you do have active hepatitis C. You certainly have been exposed to hepatitis C in the past but it is unclear if you have an active infection or not. Discharge Orders/Prescriptions Prescriptions: New multivitamin [Daily Multi-Vitamin] Tablet 1 tab PO DAILY Qty: 30 0RF Continued albuterol sulfate [Ventolin HFA] 90 mcg/actuation HFA aerosol inhaler 1 - 2 puff inhalation Q4H PRN PRN (Reason: Wheezing) Qty: 1 0RF albuterol sulfate [ProAir HFA] 90 mcg/actuation HFA aerosol inhaler 2 puff inhalation Q6H PRN (Reason: shortness of breath or wheezing) Qty: 8.5 0RF Referrals / Follow Up: Care Physician,No Primary [Primary Care Provider] - Disposition Disposition (needs filled in before D/C Order can be placed): Home, Self Care Charges/Coding Visit Charges Inpatient E&M: 04814 Disch Hosp 10/31/23 1021 <Electronically signed by Graham Tolbert DO> Cosigner Signature (if applicable): CC: Dr. Graham Tolbert, ; No Primary Care Physician~ Signed [facility] Work Phone: Discharge summary Author Homar Nieves [facility] Note Date/Time December 13, 2024 1:[address] [facility] Medical Records Department [address] [place] [address] Emergency Department Summary 12/13/24 MR#: [id number] Acct: [id number] Name: MARKELLMICHAEL APARICIO SANTOS Rep #:[id number] : 1975 49 From: Homar Nieves MD PCP: Care Physician,No Primary Status :REG ER Location: ED HPI History of Present Illness Chief Complaint: Cough Narrative Narrative: 49-year-old male past medical history of asthma, presents with chronic cough that he has had for the last few months. He states that with his history of asthma, wintertime is the worst. He has had a cough of clear sputum that has been intermittent. Over the last few weeks he has been using his albuterol inhaler more often. He ran out and is now having continued cough and mild shortness of breath. He states last time he was here, he received a small albuterol inhaler, but states he needs the big 1. He denies any fever, no chills, no chest pain associated with this. No leg swelling. He is here for analbuterol inhaler prescription and at least 2 weeks of cough if not longer. [facility] Medical History ETOH abuse Methamphetamine abuse Asthma Depression Anxiety Methamphetamine abuse Ankle fracture, left Bipolar disorder Depression Anxiety Past history of chewing tobacco use Asthma with COPD Anxiety and depression Inguinal hernia bilateral, non-recurrent Hypertension Stroke/cerebrovascular accident Alcohol abuse Bulla of lung GERD (gastroesophageal reflux disease) Home Medications ?Medication ?Instructions ?Recorded ?Last Taken ?Type albuterol sulfate 90 mcg/actuation 2 inh inhalation Q6 H PRN shortness 09/07/24 10/21/24 Rx breath activated powder inhaler of breath or wheezing #1 ea amoxicillin 875 mg-potassium 1 tab PO Q12H #10 tabs Unknown Rx clavulanate 125 mg tablet prednisone 20 mg tablet 40 mg (2 x 20 mg) PO DAILY # 10 tabs 10/22/24 Unknown Rx guaifenesin 1,200 mg tablet, 1,200 mg PO BID #10 tabs 11/12/24 Unknown Rx extended release 12 hr (Mucus Relief ER) multivitamin 1 tab PO LUNCH #0 tabs 11/12 Unknown Rx prednisone 20 mg tablet 40 mg (2 x 20 mg) PO DAILY # 10 tabs 11/12/24 Unknown Rx albuterol sulfate 90 mcg/actuation 1 puff inhalation Q 6H PRN 11/20/24 Unknown Rx aerosol inhaler shortness of breath or wheez ing #8.5 grams prednisone 20 mg tablet 40 mg (2 x 20 mg) PO DAILY 5 days 11/27/24 Unknown Rx #10 tabs albuterol sulfate 90 mcg/actuation 1 - 2 puff inhalati on Q4H PRN PRN 12/13/24 Unknown Rx aerosol inhaler (Ventolin HFA) Wheezing #1 ea prednisone 20 mg tablet 40 mg (2 x 20 mg) PO DAILY # 10 tabs 12/13/24 Unknown Rx Allergy/AdvReac Type Severity Reaction Status Date / Time No Known Allergies Allergy Verified 12/13/24 11:19 Family History Father Alcoholism CAD (coronary artery disease) Heart disease Hypertension Mother Alcoholism Seizures Surgical History History of ankle surgery Social History housing: apartment Smoking Status: Never smoker Smokeless tobacco user: chewing tobacco how long ago did patient quit smoking: Notes no cig tob use, prior chew only but no current, ongoing cannabis use. alcohol intake: current alcohol intake frequency: a few times a week details: 5-6 beers daily, occasionally whiskey. substance use type: marijuana, amphetamines, opiates and methamphetamine ROS ROS ED ROS Narrative Review of systems positive for chronic cough, intermittent over the last few months, worse over the last few weeks. Out of albuterol inhaler. No chest pain, no fevers or chills, mild shortness of breath. No leg swelling. No othersymptoms especially nausea, or vomiting. EXAM Physical Exam Narrative Exam Narrative: Afebrile. Vital signs noted. Nontoxic-appearing. Already a vascular examination reveals a regular rate and rhythm. Lungs are clear to auscultation bilaterally. No wheezing or stridor. No accessory muscle use. Abdomen soft and nontender without guarding or rebound. Positive bowel sounds. Neurologicalexamination is nonfocal and nonlateralizing. Const Vital Signs: 12/13/24 11:18 12/13/24 12:35 Temperature 96.6 F L Temperature Source Oral Pulse Rate 88 Respiratory Rate 16 Respiratory Effort Labored Respiratory Depth Shallow Respiratory Pattern Tachypnea Blood Pressure 153/108 H Blood Pressure Mean 123 Pulse Ox 100 Oxygen Delivery Method Room Air Room Air MDM MDM MDM Narrative Medical decision making narrative: I reviewed his prior problems, has had asthma exacerbation as well as problems with anxiety and depression. His pulse ox is 100% on room air without evidence of hypoxia. While I do not feel he needs laboratory work, given his chronic cough, I have low concern for pneumonia or pneumothorax because the history and physical does not support this. But I do feel that two-view chest x-ray should be obtained to rule out consolidation, pneumonia, or mass. I discussed with himreceiving another albuterol MDI from the emergency department, but he states that it was dinky, and he prefers a prescription for an albuterol inhaler. Hewas referred to a primary care provider. On my individual interpretation of his chest x-ray, there is no consolidation orpneumonia, no pneumothorax. I reviewed the radiology report which confirms my independent interpretation. Additionally, they comment on a pulmonary nodule and worsening of the right apical pleural-parenchymal changes. The pulmonary nodule is 8.9 x 10.[address] radiology suggests CT scan, I do not feel he needs an emergent CT scan for the pulmonary nodule. Patient was informed with this and referred to Dr. Leonard Marin and back to his primary care provider. I do not feel he needs antibiotics. Patient inquired about these, but then inquired about a prednisone burst as well. I do feel that he may benefit from this. He was written for 5-day burst of 40 mg. At this point in time, I feel he can be discharged home to follow-up. Return instructions reviewed. Disposition is discharged home in stable condition. History & Record Review Discussion w/independent historian: Patient Radiography Diagnostic Testing: Clinical Impression(s) from Imaging Studies Chest X-Ray 12/13/24 12:55 IMPRESSION: Persistent and slightly worsening of the right apical pleural-parenchymal changes. Findings suggestive of a 8.9 mm x 10.9 mm nodule in the lateral aspect of the right midlung. Correlation with CT recommended. Reading Location: [place] [address] Discharge Plan Triage Chief Complaint: Cough ED Provider: Homar Nieves Dx/Rx/DC Orders Clinical Impression: Cough, Asthma exacerbation, Has run out of medications, Pulmonary nodule Instructions: ED Asthma, Acute (Adult), ED Cough Chronic Uncertain Cause Adult,ED Pulmonary Nodule, Solitary Prescriptions: New albuterol sulfate [Ventolin HFA] 90 mcg/actuation HFA aerosol inhaler 1 - 2 puff inhalation Q4H PRN PRN (Reason: Wheezing) Qty: 1 0RF prednisone 20 mg tablet 40 mg PO DAILY Qty: 10 0RF No Action albuterol sulfate 90 mcg/actuation aerosol powdr breath activated 2 inh inhalation Q6H PRN (Reason: shortness of breath or wheezing) Qty: 1 3RF multivitamin Tablet 1 tab PO LUNCH Qty: 0 0RF guaifenesin [Mucus Relief ER] 1,200 mg Tablet Extended Release 12hr 1,200 mg PO BID Qty: 10 0RF prednisone 20 mg tablet 40 mg PO DAILY Qty: 10 0RF prednisone 20 mg tablet 40 mg PO DAILY Qty: 10 0RF amoxicillin-pot clavulanate 875-125 mg tablet 1 tab PO Q12H Qty: 10 0RF albuterol sulfate 90 mcg/actuation HFA aerosol inhaler 1 puff inhalation Q6H PRN (Reason: shortness of breath or wheezing) Qty: 8.5 0RF prednisone 20 mg tablet 40 mg PO DAILY 5 Days Qty: 10 0RF Rx Instructions: Start on 11/28/2024 Primary Care Provider: Care Physician,No Primary Referrals: Leonard Marin DO [Med Staff - Active Staff] - As soon as possible Troy Monroy MD [Med Staff - Active Staff] - 1 Week if not improving Care Physician,No Primary [Primary Care Provider] - Anmol Berry NP-C [[facility]] - 1 Week if not improving Activity Restrictions/Additional Instructions: Use albuterol inhaler 1 to 2 puffs inhaled every 4-6 hours as needed for shortness of breath. Follow-up with a primary care provider regarding your chronic cough. Return to the emergency department with increased difficulty breathing, new or worsening symptoms. Print Language: [place]ese Disposition Disposition: Home, Self Care What to do if you have Problems For any increased pain, shortness of breath, bleeding, nausea or vomiting, chestpain, or any unexpected problems, contact your Primary Care Provider. Call [facility] ([phone]) or report to the closest Emergency Room. Call 911 if necessary. 12/13/24 1346 <Electronically signed by Homar Nieves MD> Cosigner Signature (if applicable): CC: No Primary Care Physician ~ Signed [facility] Work Phone: Evaluation noteNo assessment information available [facility] Work Phone: Evaluation note* Diagnosis Onset Date Resolution Status Desire for detoxification ac jose angel Alcoholism chronic [facility] Work Phone: Evaluation note* Diagnosis Onset Date Resolution Status Desire for detoxification ac jose angel Alcoholism chronic Alcohol intoxication acute Viral URI with cough acute [facility] Work Phone: Evaluation note* Diagnosis Onset Date Resolution Status Alcoholism chronic Acute alcohol withdrawal res olved Alcohol intoxication acute Viral URI with cough acute Alcohol withdrawal acute Desire for detoxification ac jose angel Substance abuse acute Alcoholism chronic [facility] Work Phone: Evaluation note* Diagnosis Onset Date Resolution Status Alcoholism chronic Acute alcohol withdrawal res olved Alcohol intoxication acute Viral URI with cough acute Alcoholism chronic Alcohol withdrawal resolved Alcohol abuse acute [facility] Work Phone: Evaluation note* Diagnosis Onset Date Resolution Status Alcoholism chronic Alcohol withdrawal resolved Alcohol abuse acute Acute alcohol withdrawal res [facility] Work Phone: Evaluation note* Diagnosis Onset Date Resolution Status Alcohol abuse acute Acute alcohol withdrawal res [facility] Work Phone: Evaluation note* Diagnosis Onset Date Resolution Status Alcohol withdrawal acute [facility] Work Phone: Evaluation note* Diagnosis Onset Date Resolution Status Alcohol withdrawal acute Desire for detoxification ac jose angel [facility] Work Phone: Evaluation note* Diagnosis Onset Date Resolution Status Alcohol withdrawal resolved Desire for detoxification re solved [facility] Work Phone: evaluation note* Diagnosis Right inguinal hernia Inguinal hernia without mention of obstruction or gangrene, unilateral or unspecified, (not specified as recurrent) Screening for colon cancer Special screening for malignant neoplasms, colon Right inguinal hernia Inguinal hernia without mention of obstruction or gangrene, unilateral or unspecified, (not specified as recurrent) [facility]* Diagnosis Onset Date Resolution Status Alcohol abuse acute Alcohol dependence acute Desire for detoxification ac jose angel Alcoholism chronic [facility] Work Phone: History and physical note Author Alisha Mcintyre [facility] April 26, 2023 7:23pm Note Date/Time April 26, 2023 7:07 pm [facility] Medical Records Department [address] [place] [id number] H&P Exam - Hospitalist 04/26/23 1904 MR#: [id number] Acct: [id number] Name: MICHAEL MCNEILL SANTOS Rep #:[id number] : 1975 47 From: Alisha Mcintyre MD PCP: Care Physician,No Primary Status :REG ER Location: ED HPI - General General Date of Admission: 04/26/23 Date of Service: 04/26/23 Chief Complaint: Acute EtOH withdrawal HPI Narrative The patient is a 47 y/o M w/ PMHx: Hx CVA, Hx Chew tobacco use, Polysubstance abuse (cannabis, opiates, methampetamine), EtOH abuse, COPD/Asthma w/ known bulla, GERD, HTN, HLD who presents to the [facility] ED on 04/26/23 with acute EtOH withdrawal for detoxification treatment, onset starting day of presentation following last EtOH intake the evening prior with onset of mild nausea without any emesis, moderate tremors, mild increased agitation, tactile disturbances. Patient interested in attaining sober status and does report that the last time he went through detox unfortunately he did not remain sober for long but is interested in attempting again. He does report that his anxiety and depression have been worse work-up in the ED included T97.2, heart rate 83, BP 104/81, respiratory rate 18, 95% oxygenation on room air, CBC with WC 5.0, hemoglobin 12.8, MCV 94.4, platelet 273 without marked shift, CMP with BUN/creatinine 21/0.88 otherwise not marked appearing, at the alcohol less than 3, UDS pending upon requested evaluation of patient. [facility] Medical History (Updated 04/26/23 @ 19:[address] Alisha Mcintyre MD) Active substance abuse Alcohol abuse Anxiety and depression Asthma with COPD Bulla of lung GERD (gastroesophageal reflux disease) Hypertension Inguinal hernia bilateral, non-recurrent Methamphetamine abuse Past history of chewing tobacco use Stroke/cerebrovascular accident Home Medications albuterol sulfate 90 mcg/actuation aerosol inhaler (Ventolin HFA) 1 - 2 puff inhalation Q4H PRN PRN Wheezing #1 device 09/09/22 [Rx Last Taken Unknown] albuterol sulfate 90 mcg/actuation aerosol inhaler (ProAir HFA) 2 puff inhalation Q6H PRN shortness of breath or wheezing #8.5 grams 12/02/22 [Rx Last Taken 12/23/22] albuterol sulfate 90 mcg/actuation aerosol inhaler (Ventolin HFA) 1 - 2 puff inhalation Q4H PRN PRN Wheezing #1 inh 01/22/23 [Rx Last Taken Unknown] prednisone 20 mg tablet 40 mg (2 x 20 mg) PO DAILY 5 days #10 tabs 01/22/23 [Rx Last Taken Unknown] albuterol sulfate 90 mcg/actuation aerosol inhaler (Ventolin HFA) 2 puff inhalation Q4H PRN PRN Wheezing ##1 03/26/23 [Rx Last Taken Unknown] naproxen 500 mg tablet 500 mg PO BID #14 tabs 03/26/23 [Rx Last Taken Unknown] penicillin V potassium 500 mg tablet 500 mg PO 4X/DAY #40 tabs 03/26/23 [Rx Last Taken Unknown] Allergy/AdvReac Type Severity Reaction Status Date / Time No Known Allergies Allergy Verified 04/26/23 16:53 Family History Father Alcoholism CAD (coronary artery disease) Heart disease Hypertension Mother Alcoholism Seizures Surgical History History of ankle surgery Social History (Updated 04/26/23 @ 19:[address] Alisha Mcintyre MD) housing: homeless Smoking Status: Never smoker Smokeless tobacco user: chewing tobacco how long ago did patient quit smoking: Notes no cig tob use, prior chew only but no current, ongoing cannabis use. alcohol intake: current details: 5-6 beers daily, occasionally whiskey. substance use type: marijuana, opiates and methamphetamine ROS ROS Narrative Admission Review of Systems: CONSTITUTIONAL: No weight loss, fever, + chills, weakness or fatigue. HEENT: Eyes: No visual loss, blurred vision, double vision or yellow sclerae. Ears, Nose, Throat: No hearing loss, sneezing, congestion, runny nose or sore throat. SKIN: No rash or itching, lesions, wounds. CARDIOVASCULAR: No chest pain, chest pressure or chest discomfort, palpitations,edema, orthopnea, syncopal events. RESPIRATORY: + Occasional cough, no recent increased sputum or wheezing. No hemoptysis. GASTROINTESTINAL: + anorexia, nausea. No vomiting or diarrhea, abdominal pain, melena, BRBPR. GENITOURINARY: No dysuria, frequency, urgency or retention. NEUROLOGICAL: + Mild tremors, speech changes/aphasia, tactile disturbances. No headache, dizziness, syncope, paralysis, ataxia, numbness or tingling in the extremities, focal weakness, change in bowel or bladder control, seizure. MUSCULOSKELETAL: + muscle, back pain, joint pain or stiffness. HEMATOLOGIC: + anemia, bleeding or bruising. LYMPHATICS: No enlarged nodes. No history of splenectomy. PSYCHIATRIC: + history of depression or anxiety. ENDOCRINOLOGIC: No reports of sweating, cold or heat intolerance. No polyuria orpolydipsia. ALLERGIES: + history of asthma, rhinitis. Vital Signs Vital Signs Vital Signs: 04/26/23 16:53 Temperature 97.2 F L Temperature Source Temporal Pulse Rate 83 Respiratory Rate 18 Blood Pressure 104/81 H Blood Pressure Mean 88 Pulse Ox 95 Oxygen Delivery Method Room Air Weight Weight: 126 lb 6.4 oz Body Mass Index (BMI) 20.4 Physical Exam Narrative Physical Examination: General: Awake, alert, oriented x 3 and cooperative, seated upright in ED bed, mildly restless, chronic aphasia present, unchanged from prior evaluation. Skin: Normal color, normal turgor, no icterus, no cyanosis except psoriatic skinchange to hands and occasional abrasion/staged ecchymoses. HEENT: AT/NC, EOMI, PERRLA, mildly dry MM, no carotid bruits or JVD noted. Lungs: Mildly diminished, > bases, occasional end expiratory wheeze, he notes improved from recent exacerbation, no rales or marked rhonchi. Heart: Currently regular rhythm; no gallop, rub audible. Abdomen: Soft, thin habitus, NTTP, ND, mildly hyperactive BS, + HM. Extremities: No cyanosis, clubbing, or edema. Neurological: Patient awake, alert, oriented as noted, cognitive function appears baseline intact; pupils equally reactive to light and accommodation, cranial nerves grossly normal, moving all 4 extremities, no focal deficits, strength mildly globally decreased secondary to acute presentation, mildly tremulous, anxious, restless, chronic aphasia. Psychiatric: Affect appears mildly anxious, restless, reports underlying anxietyand depression which has been worse. Results Lab / Micro Data 04/26/23 18:10 04/26/23 18:10 Labs: Laboratory Results - last 24 hr 04/26/23 18:10: WBC 5.0, RBC 4.12 L, Hgb 12.8 L, Hct 38.9 L, MCV 94.4 H, MCH 31.1, MCHC 32.9, RDW Std Deviation 43.1, RDW Coeff of Bridger 12.5, Plt Count 273, MPV 8.7, Immature Gran % (Auto) 0.200, Neut % (Auto) 56.3, Lymph % (Auto) 22.0, Nye % (Auto) 6.0, Eos % (Auto) 14.7 H, Baso % (Auto) 0.8, Absolute Neuts (auto)2.8, Absolute Lymphs (auto) 1.11, Nucleated RBC % 0, Sodium 139, Potassium 4.0, Chloride 107, Carbon Dioxide 29.0, Anion Gap 3 L, BUN 21 H, Creatinine 0.88, Estim Creat Clear Calc 84.16, Est GFR (MDRD) Af Amer 119, Est GFR (MDRD) Non-Af 99, BUN/Creatinine Ratio 23.9 H, Glucose 98, Calcium 8.9, Total Bilirubin 0.40, AST 26, ALT 43, Alkaline Phosphatase 51, Total Protein 7.4, Albumin 3.5, Globulin 3.9, Albumin/Globulin Ratio 0.9, Ethyl Alcohol < 3.0 Assessment & Plan Assessment/Plan (1) Alcohol withdrawal: PLAN: Plan The patient is a 47 y/o M w/ PMHx: Hx CVA, Hx Chew tobacco use, Polysubstance abuse (cannabis, opiates, methampetamine), EtOH abuse, COPD/Asthma w/ known bulla, GERD, HTN, HLD who presents to the [facility] ED on 04/26/23 with acute EtOH withdrawal for detoxification treatment. #1. Acute EtOH Withdrawal: Will admit to MS, routine labs obtained in the ED upon presentation and not marked appearing, awaiting UDS. Given interest in sobriety, will initiate and continue on protocol with taper course of Phenobarbital, as needed Catapres, gabapentin, Bentyl, Vistaril, IV fluids, IV antiemetics, Tylenol as needed for pain. Will consult Case management for assistance for transition to next level of rehabilitation care. Mag, phos pending. May add CIWA overlap with PRN ativan if symptoms notable. #2. Asthma/COPD: Not on any chronic regimen, will maintain on twice daily budesonide therapy as well as as needed albuterol, encourage tobacco cessation. #3. Hypertension: Noted previous history in the past, BP low normal, continue to monitor, PRN IV hydralazine. #4. Chew Tobacco Abuse: Encouraged cessation, inpatient consultation per RT, NRif desired. #5. Anxiety and depression: Not on any regimen, likely contributing to ongoing alcohol and polysubstance abuse, encourage counseling and medication consideration outpatient if appropriate. #6. Polysubstance abuse: Prior presentations with UDS notable for polysubstanceabuse including Opiates/Cannabis/Methamphetamines, encourage both clean and sober status. CM consulted as noted. UDS pending upon admission. Records review with very report HIV/hepatitis assessment. Given polysubstance abuse will obtainHIV, RPR, hepatitis panel which was discussed with patient and he was notably amenable and eager for these results. #7. Hx prior CVA w/ chronic aphasia: Poor historian, will continue asa, not on hypertensive regimen or statin therapy, BP currently normal range. #8. Normocytic anemia, chronic component: Admission hemoglobin 12.8, MCV mildlyelevated 94.4, prior normal range, appears similar to prior recent baseline 11-12, continue to assess outpatient. #9. DVT prophylaxis: Low risk, encourage ambulation. Charges/Coding Visit Charges Inpatient E&M: 51883 Init Hosp L2 04/26/231922 <Electronically signed by Alisha Mcintyre MD> Cosigner Signature (if applicable): CC: Dr. Alisha Mcintyre MD; No Primary Care Physician~ Signed [facility] Work Phone: History and physical note Author [facility] October 29, 2023 4:59am Note Date/Time October 29, 2023 4 :41am [facility] Medical Records Department [address] [place] [address] H&P Exam - Hospitalist 10/29/23 0437 MR#: [id number] Acct: [id number] Name: MICHAEL MCNEILL SANTOS Rep #:[id number] : 1975 47 From: Alisha Mcintyre MD PCP: Care Physician,No Primary Status :REG ER Location: ED HPI - General General Date of Admission: 10/29/23 Date of Service: 10/29/23 Chief Complaint: EtOH abuse, requesting detoxification. HPI Narrative The patient is a 47 y/o M w/ PMHx: Hx CVA, Hx Chew tobacco use, Polysubstance abuse (cannabis, opiates, methampetamine), EtOH abuse, COPD/Asthma w/ known bulla, GERD, HTN, HLD who presents to the [facility] ED on 04/26/23 with acute EtOH withdrawal for detoxification treatment with history of unfortunately starting to drink, initially weekly only but it again became daily, heavier over the lastcouple days with hard liquor, prompting ED evaluation. He notes the last drink he had was whiskey prior to decision to present for treatment. Workup in the ED included T97.9, heart rate 94, BP 124/58, respiratory rate 18, 98% on room air, pending CBC, CMP, ethyl alcohol level, urine drug screen upon evaluation. [facility] Medical History (Updated 10/29/23 @ 04:[address] Alisha Mcintyre MD) Alcohol abuse Ankle fracture, left Anxiety Anxiety and depression Asthma with COPD Bipolar disorder Bulla of lung Depression GERD (gastroesophageal reflux disease) Hypertension Inguinal hernia bilateral, non-recurrent Methamphetamine abuse Past history of chewing tobacco use Stroke/cerebrovascular accident Home Medications albuterol sulfate 90 mcg/actuation aerosol inhaler (Ventolin HFA) 1 - 2 puff inhalation Q4H PRN PRN Wheezing #1 device 09/09/22 [Rx Last Taken Unknown] albuterol sulfate 90 mcg/actuation aerosol inhaler (ProAir HFA) 2 puff inhalation Q6H PRN shortness of breath or wheezing #8.5 grams 12/02/22 [Rx Last Taken 12/23/22] Allergy/AdvReac Type Severity Reaction Status Date / Time No Known Allergies Allergy Verified 10/29/23 04:24 Family History Father Alcoholism CAD (coronary artery disease) Heart disease Hypertension Mother Alcoholism Seizures Surgical History History of ankle surgery Social History housing: homeless Smoking Status: Never smoker Smokeless tobacco user: chewing tobacco how long ago did patient quit smoking: Notes no cig tob use, prior chew only but no current, ongoing cannabis use. alcohol intake: current details: 5-6 beers daily, occasionally whiskey. substance use type: marijuana, opiates and methamphetamine ROS ROS Narrative Admission Review of Systems: CONSTITUTIONAL: No weight loss, fever, chills, + weakness or fatigue. HEENT: Eyes: No visual loss, blurred vision, double vision or yellow sclerae. Ears, Nose, Throat: No hearing loss, sneezing, congestion, runny nose or sore throat. SKIN: No rash or itching, lesions, wounds. CARDIOVASCULAR: No chest pain, chest pressure or chest discomfort, palpitations,edema, orthopnea, syncopal events. RESPIRATORY: + Occasional wheezing and nonproductive cough. No marked sputum, hemoptysis. GASTROINTESTINAL: No anorexia, nausea, vomiting or diarrhea, abdominal pain, melena, BRBPR. GENITOURINARY: No dysuria, frequency, urgency or retention. NEUROLOGICAL: + Speech changes/aphasia chronically s/p prior CVA. No headache, dizziness, syncope, paralysis, ataxia, numbness or tingling in the extremities, focal weakness, change in bowel or bladder control, seizure. MUSCULOSKELETAL: + muscle, back pain, joint pain or stiffness. HEMATOLOGIC: + anemia, easy bleeding/bruising. LYMPHATICS: No enlarged nodes. No history of splenectomy. PSYCHIATRIC: + history of depression or anxiety. ENDOCRINOLOGIC: No reports of sweating, cold or heat intolerance. No polyuria orpolydipsia. ALLERGIES: + history of asthma, rhinitis. Vital Signs Vital Signs Vital Signs: 10/29/23 04:23 Temperature 97.9 F Temperature Source Temporal Pulse Rate 94 Respiratory Rate 18 Blood Pressure 124/58 H Blood Pressure Mean 80 Pulse Ox 98 Oxygen Delivery Method Room Air Weight Weight: 135 lb 12.876 oz Body Mass Index (BMI) 21.9 Physical Exam Narrative Physical Examination: General: Awake, alert, oriented x 3 and cooperative, seated upright in ED bed, chronic aphasia present. Skin: Normal color, normal turgor, no icterus, no cyanosis except psoriatic skinchange to hands and occasional abrasion/staged ecchymoses. HEENT: AT/NC, EOMI, PERRLA, mildly dry MM, no carotid bruits or JVD noted. Lungs: Mildly diminished, > bases, no rales, wheezing or marked rhonchi. Heart: Currently regular rhythm; no gallop, rub audible. Abdomen: Soft, thin habitus, NTTP, ND, mildly hyperactive BS, + HM. Extremities: No cyanosis, clubbing, or edema. Neurological: Patient awake, alert, oriented as noted, cognitive function baseline intact with chronic impairment s/p prior CVA; pupils equally reactive to light and accommodation, cranial nerves grossly normal, moving all 4 extremities, no focal deficits, strength mildly globally decreased, chronic aphasia. Psychiatric: Affect appears mildly fatigued, history of underlying anxiety and depression. Assessment & Plan Assessment/Plan (1) Desire for detoxification: PLAN: Plan The patient is a 47 y/o M w/ PMHx: Hx CVA, Hx Chew tobacco use, Polysubstance abuse (cannabis, opiates, methampetamine), EtOH abuse, COPD/Asthma w/ known bulla, GERD, HTN, HLD who presents to the [facility] ED on 04/26/23 with acute EtOH withdrawal for detoxification treatment with history of unfortunately starting to drink, initially weekly only but it again became daily, heavier over the lastcouple days with hard liquor, prompting ED evaluation. #1. Alcohol abuse, recurrent with detoxification request: Will admit to MS, routine labs obtained in the ED upon presentation and pending. Given interest insobriety, will initiate and continue on protocol with taper course of Phenobarbital, as needed Catapres, gabapentin, Bentyl, Vistaril, IV fluids, IV antiemetics, Tylenol as needed for pain. Will consult Case management for assistance for transition to next level of rehabilitation care. Mag, phos pending. #2. Polysubstance abuse: History of polysubstance use with cannabis, opiates and methamphetamine. Prior presentation 04/26/2023 with UDS with positive amphetamine/MDMA. UDS pending upon current presentation. 04/26/2023 hepatitis panel with hep BS antibody reactive otherwise nonreactive, hepatitis C antibody preliminarily reactive, HIV nonreactive. Encourage both sobriety and clean status. #3. Asthma/COPD: Not on any chronic regimen, will maintain on ATC budesonide therapy, PRN albuterol, encourage tobacco cessation. #4. Hypertension: Noted prior history, BP low normal range, continue to monitor. #5. Former Chew Tobacco Abuse: Encouraged continued cessation. #6. Anxiety and depression: Not on any regimen, encouraged continued ongoing evaluations with counseling and potentially medications on an outpatient basis if appropriate. #7. Hx prior CVA w/ chronic aphasia: Will continue asa, not on hypertensive regimen or statin therapy, BP currently normal range. #8. Normocytic anemia, chronic component: Admission Hgb pending, prior Hgb 12.8, baseline prior Hgb 11-12. #9. DVT prophylaxis: Low risk for type of admission. Charges/Coding Visit Charges Inpatient E&M: 66971 Init Hosp L2 10/29/23 0456 <Electronically signed by Alisha Mcintyre MD> Cosigner Signature (if applicable): CC: Dr. Alisha Mcintyre MD; No Primary Care Physician~ Signed [facility] Work Phone: Hospital Discharge instructions Additional Instructions Follow-up with a dentist as soon as possible for your right front tooth avulsion.[facility] Work Phone: Hospital Discharge instructions Additional Instructions Wash your hand thoroughly daily. Apply antibiotic ointment to all this cuts on your left hand twice a day. Apply hand moisturizer twice a day your skin is getting very dry. Currently there is no signs of infection. Watch for pus, red streaks, fever or swelling of seen needs to be reevaluated.[facility] Work Phone: Hospital Discharge instructions Additional Instructions Please follow-up with the PCP I referred you to.[facility] Work Phone: Hospital Discharge instructions Additional Instructions See your physician as scheduled in April.[facility] Work Phone: Hospital Discharge instructions Additional Instructions Please use your inhaler as directed to control any asthma symptoms and return to the ER should you have any further concerns[facility] Work Phone: Hospital Discharge instructions Additional Instructions Follow-up with the surgeons office tomorrow so they can reprint the appropriate follow-up paperwork and plans for your hernia surgery.[facility] Work Phone: Hospital Discharge instructions Additional Instructions Use albuterol inhaler 1 to 2 puffs inhaled every 4-6 hours as needed for shortness of breath. Follow-up with a primary care provider regarding your chronic cough. Return to the emergency department with increased difficulty breathing, new or worsening symptoms. [facility] Work Phone: Reason for referral (narrative)* Outpatient Procedure (Routine) - Authorized Specialty Diagnoses / Procedures Referred By Erin t Referred To Contact [facility] Diagnoses Screening for colon cancer Procedures COLONOSCOPY SCREENING COLONOSCOPY FLX DX W/COLLJ SPEC WHEN Linda Manrique MD [address] [place] [address] [facility] [address] [place] [address] Referral ID Status Reason Start Date Expiration Date Visits Requested Visits Authorized [id number] Authorized Auto-Generat ed Referral 3 08/28/2024 1 1 [facility] for referral (narrative)No reason for referral information availableWMercy [facility] Work Phone: Summary Purpose Family History No Family History Records Found Relationship Condition Age at Onset Recorded Date/T kwasi father Alcoholism Unknown Relationship Condition Age at Onset Recorded Date/T kwasi father Alcoholism Unknown Coronary artery disease Unknown Cardiac disease Unknown Hypertension Unknown mother Alcoholism Unknown Seizure Unknown Advance Directives No Advanced Directives Records Found Advance Directive Response Recorded Date/ Time Advance Directives No April 02 4 8:34pm Living Will No February 12, 2022 7 :15pm Power of Inventory Associate No February 12, 2022 7:15pm Advance Directive Response Recorded Date/ Time Advance Directives No April 02 4 8:34pm Living Will No March 19, 2022 8:44pm Power of Inventory Associate No March 19 2 8:44pm Advance Directive Response Recorded Date/ Time Advance Directives No April 02 4 8:34pm Living Will No March 19, 2022 10:50pm Power of Inventory Associate No March 19 2 10:50pm Advance Directive Response Recorded Date/ Time Advance Directives No April 02 4 8:34pm Living Will No March 28, 2022 4:26pm Power of Inventory Associate No March 28 2 4:26pm Advance Directive Response Recorded Date/ Time Advance Directives No April 02 4 8:34pm Living Will No May 23 2 11:27pm Power of Inventory Associate No May 23 11:27pm Advance Directive Response Recorded Date/ Time Advance Directives No April 02 4 8:34pm Living Will No May 24 1:55am Power of Inventory Associate No May 24 1:55am Advance Directive Response Recorded Date/ Time Advance Directives No April 02 4 8:34pm Living Will No July 15 9:08pm Power of Inventory Associate No July 15, 2022 9:08pm Advance Directive Response Recorded Date/ Time Advance Directives No April 02 4 8:34pm Living Will No July 26 6:25pm Power of Inventory Associate No July 26, 2022 6:25pm Advance Directive Response Recorded Date/ Time Advance Directives No April 02 4 7:34pm Living Will No August 14, 2 022 6:57am Power of Inventory Associate No August 14, 2022 6:57am Advance Directive Response Recorded Date/ Time Advance Directives No April 02 4 7:34pm Living Will No September 05 11:06am Power of Inventory Associate No September 05, 2022 11:06am Advance Directive Response Recorded Date/ Time Advance Directives No April 02 7:34pm Living Will No September 09 1:56am Power of Inventory Associate No September 09, 2022 1:56am Advance Directive Response Recorded Date/ Time Advance Directives No April 02 7:34pm Living Will No October 09 1:37pm Power of Inventory Associate No October 09, 2 023 1:37pm Advance Directive Response Recorded Date/ Time Advance Directives No April 02 4 7:34pm Living Will No November 03 1:05pm Power of Inventory Associate No November 03, 2022 1:05pm Advance Directive Response Recorded Date/ Time Advance Directives No April 02 7:34pm Living Will No December 01, 2022 11:33pm Power of Inventory Associate No December 01 11:33pm Advance Directive Response Recorded Date/ Time Advance Directives No April 02 8:34pm Living Will No December 15, 2022 6:32pm Power of Inventory Associate No December 15 6:32pm Advance Directive Response Recorded Date/ Time Advance Directives No April 02 4 8:34pm Living Will No December 23, 2022 11:29pm Power of Inventory Associate No December 23 11:29pm Advance Directive Response Recorded Date/ Time Advance Directives No April 02 4 8:34pm Living Will No March 26, 2023 12:10am Power of Inventory Associate No March 26 12:10am Advance Directive Response Recorded Date/ Time Advance Directives No April 02 4 8:34pm Living Will No April 26, 2023 7:47pm Power of Inventory Associate No April 26 3 7:47pm Advance Directive Response Recorded Date/ Time Advance Directives No April 02 4 8:34pm Living Will No April 26, 2023 8:56pm Power of Inventory Associate No April 26 3 8:56pm Advance Directive Response Recorded Date/ Time Advance Directives No April 02 4 8:34pm Living Will No May 29 12:58am Power of Inventory Associate No May 29 023 12:58am Advance Directive Response Recorded Date/ Time Advance Directives No April 02 4 7:34pm Living Will No September 01 12:29am Power of Inventory Associate No September 01, 2023 12:29am Advance Directive Response Recorded Date/ Time Advance Directives No April 02 4 7:34pm Living Will No October 15 11:33am Power of Inventory Associate No October 15, 2023 11:33am Advance Directive Response Recorded Date/ Time Advance Directives No April 02 4 7:34pm Living Will No October 29 4:23am Power of Inventory Associate No October 29, 2023 4:23am Advance Directive Response Recorded Date/ Time Advance Directives No April 02 7:34pm Living Will No October 29 5:54am Power of Inventory Associate No October 29, 2023 5:54am Advance Directive Response Recorded Date/ Time Living Will No September 07 12:41pm Power of Inventory Associate No September 07, 2024 12:41pm Living Will No November 11 025 6:41pm Power of Inventory Associate No November 11, 2024 6:41pm Living Will No December 04, 2024 8:21pm Power of Inventory Associate No December 04 8:21pm Living Will No December 13, 2024 12:35pm Power of Inventory Associate No December 13 12:35pm Living Will No September 19 2 024 7:59pm Power of Inventory Associate No September 19, 2024 7:59pm Living Will No October 21 9:51pm Power of Inventory Associate No October 21, 2024 9:51pm Living Will No November 27 025 3:01pm Power of Inventory Associate No 2024 3:01pm Advance Directives No April 02 8:34pm Advance Directive Response Recorded Date/ Time Living Will No November 11 025 6:41pm Do you have a Healthcare Power of Inventory Associate? No November 11, 2024 6:41pm Living Will No December 04, 2024 8:21pm Do you have a Healthcare Power of Inventory Associate? No December 04, 2024 8:21pm Living Will No December 13, 2024 12:35pm Do you have a Healthcare Power of Inventory Associate? No December 13, 2024 12:35pm Living Will No January 19, 2025 2:10pm Do you have a Healthcare Power of Inventory Associate? No January 19, 2025 2:10pm Living Will No October 21 9:51pm Do you have a Healthcare Power of Inventory Associate? No October 21, 2024 9:51pm Living Will No November 27 3:01pm Do you have a Healthcare Power of Inventory Associate? No 2024 3:01pm Advance Directives No April 02 8:34pm Hospital Course Note EMERGENCY DEPARTMENT DISCHAR GE SUMMARY PATIENT NAME:MICHAEL MCNEILL MRN: ([facility][id number] AGE: 43 Years SEX: Male PHONE:[phone] DOS: 08/04/2019 00:26:00 : 1975 ATTENDING PHYSICIAN:Amy Jaimes MD PCP: Physician, Gayathri PCP CHIEF COMPLAINT: wheezing/congestion Allergies No Known Medication Allergies Problems Active Depression Anxiety Asthma DISCHARGE DIAGNOSIS: DISCHARGE INSTRUCTIONS: [facility] List (Custom); Asthma, Acute Bronchospasm ED PHYSICIAN [...] He has not (more content not included)... Chief Complaint and Reason for Visit Chief Complaint LIGHT HEADED Chief Complaint LIGHT HEADED ALCOHOL DETOX Reason for Visit Desire for detoxific ation Alcoholism Chief Complaint LIGHT HEADED ALCOHOL DETOX ETOH DETOX ETOH DETOX ETOH DETOX ETOH DETOX Reason for Visit Desire for detoxific ation Alcoholism Chief Complaint LIGHT HEADED ALCOHOL DETOX ETOH DETOX ETOH DETOX ETOH DETOX ETOH DETOX COUGH/CONGESTION/COVID TEST/ILL X2DAYS shortness of breath Reason for Visit Desire for detoxific ation Alcoholism Alcohol intoxication Viral URI with cough Chief Complaint LIGHT HEADED ALCOHOL DETOX ETOH DETOX ETOH DETOX ETOH DETOX ETOH DETOX COUGH/CONGESTION/COVID TEST/ILL X2DAYS shortness of breath SUBSTANCE ABUSE Reason for Visit Alcoholism Acute alcohol withdrawal Alcohol intoxication Viral URI with cough Alcohol withdrawal Desire for detoxification Substance abuse Alcoholism Chief Complaint LIGHT HEADED ALCOHOL DETOX ETOH DETOX ETOH DETOX ETOH DETOX ETOH DETOX COUGH/CONGESTION/COVID TEST/ILL X2DAYS shortness of breath DESIRE FOR DETOXIFICATION SUBSTANCE ABUSE DESIRE FOR DETOXIFICATION Reason for Visit Alcoholism Acute alcohol withdrawal Alcohol intoxication Viral URI with cough Alcohol withdrawal Desire for detoxification Substance abuse Alcoholism Chief Complaint ALCOHOL DETOX ETOH DETOX ETOH DETOX ETOH DETOX ETOH DETOX COUGH/CONGESTION/COVID TEST/ILL X2DAYS shortness of breath DESIRE FOR DETOXIFICATION SUBSTANCE ABUSE DESIRE FOR DETOXIFICATION DESIRE FOR DETOXIFICATION sob ETOH ABUSE/DETOX Reason for Visit Alcoholism Acute alcohol withdrawal Alcohol intoxication Viral URI with cough Alcoholism Alcohol withdrawal Alcohol abuse Chief Complaint shortness of breath DESIRE FOR DETOXIFICATION SUBSTANCE ABUSE DESIRE FOR DETOXIFICATION DESIRE FOR DETOXIFICATION sob ETOH ABUSE/DETOX ETOH ABUSE/DETOX ETOH ABUSE/DETOX ETOH ABUSE/DETOX SOB Reason for Visit Alcoholism Alcohol withdrawal Alcohol abuse Acute alcohol withdrawal Chief Complaint DESIRE FOR DETOXIFIC ATION SUBSTANCE ABUSE DESIRE FOR DETOXIFICATION DESIRE FOR DETOXIFICATION sob ETOH ABUSE/DETOX ETOH ABUSE/DETOX ETOH ABUSE/DETOX ETOH ABUSE/DETOX SOB cold numb feet Reason for Visit Alcoholism Alcohol withdrawal Alcohol abuse Acute alcohol withdrawal Chief Complaint DESIRE FOR DETOXIFIC ATION SUBSTANCE ABUSE DESIRE FOR DETOXIFICATION DESIRE FOR DETOXIFICATION sob ETOH ABUSE/DETOX ETOH ABUSE/DETOX ETOH ABUSE/DETOX ETOH ABUSE/DETOX SOB cold numb feet sob Reason for Visit Alcoholism Alcohol withdrawal Alcohol abuse Acute alcohol withdrawal Chief Complaint DESIRE FOR DETOXIFIC ATION SUBSTANCE ABUSE DESIRE FOR DETOXIFICATION DESIRE FOR DETOXIFICATION sob ETOH ABUSE/DETOX ETOH ABUSE/DETOX ETOH ABUSE/DETOX ETOH ABUSE/DETOX SOB cold numb feet sob COUGH Reason for Visit Alcoholism Alcohol withdrawal Alcohol abuse Acute alcohol withdrawal Chief Complaint sob ETOH ABUSE/DETOX ETOH ABUSE/DETOX ETOH ABUSE/DETOX ETOH ABUSE/DETOX SOB cold numb feet sob COUGH SOB Reason for Visit Alcohol abuse Acute alcohol withdrawal Chief Complaint sob ETOH ABUSE/DETOX ETOH ABUSE/DETOX ETOH ABUSE/DETOX ETOH ABUSE/DETOX SOB cold numb feet sob COUGH SOB med refill FALL Reason for Visit Alcohol abuse Acute alcohol withdrawal Chief Complaint cold numb feet sob COUGH SOB med refill FALL NEEDS AN INHALER Chief Complaint sob COUGH SOB med refill FALL NEEDS AN INHALER LACERATIONS Chief Complaint sob COUGH SOB med refill FALL NEEDS AN INHALER LACERATIONS ETOH WITHDRAWL ETOH WITHDRAWL Reason for Visit Alcohol withdrawal Chief Complaint SOB med refill FALL NEEDS AN INHALER LACERATIONS ETOH WITHDRAWL ETOH WITHDRAWL MED REFILL Chief Complaint NEEDS AN INHALER LACERATIONS ETOH WITHDRAWL ETOH WITHDRAWL MED REFILL INHALER REFILL DENTAL Chief Complaint MED REFILL INHALER REFILL DENTAL alcohol detox ETOH WITHDRAWAL Reason for Visit Alcohol withdrawal Desire for detoxification Chief Complaint MED REFILL INHALER REFILL DENTAL alcohol detox ETOH WITHDRAWAL ETOH WITHDRAWAL ETOH WITHDRAWAL Reason for Visit Alcohol withdrawal Desire for detoxification Chief Complaint INHALER REFILL DENTAL alcohol detox ETOH WITHDRAWAL ETOH WITHDRAWAL ETOH WITHDRAWAL SOB Reason for Visit Alcohol withdrawal Desire for detoxification Chief Complaint SOB rt groin Chief Complaint rt groin MED REFILL Chief Complaint rt groin MED REFILL alcohol detox ETOH ABUSE, DETOX Reason for Visit Alcohol abuse Alcohol dependence Desire for detoxification Alcoholism Chief Complaint rt groin MED REFILL alcohol detox ETOH ABUSE, DETOX ETOH ABUSE, DETOX ETOH ABUSE, DETOX Reason for Visit Alcohol abuse Alcohol dependence Desire for detoxification Alcoholism Chief Complaint Admit Date sob September 07, 2024 1 1:38am COUGH September 19, 2024 5:47pm sob October 21, 2024 7 :26pm RESPIRATORY FAILURE October 21, 2024 7 :37pm RESPIRATORY FAILURE October 22, 2024 8 :33am ACUTE HYPOXIC AND HYPERCAPNIC RESPIRATOR Y FAILURE November 11, 2024 5:09pm ACUTE HYPOXIC AND HYPERCAPNIC RESPIRATOR Y FAILURE November 11, 2024 5:15pm ACUTE HYPOXIC AND HYPERCAPNIC RESPIRATOR Y FAILURE November 12, 2024 7:02am INAHALER November 20, 2024 3:33pm SOB 2024 12:42pm ABSCESS December 04, 2024 4:22 pm COUGH December 13, 2024 11: 17am Reason for Visit Admit Date Acute asthma exacerbation October 21, 2024 7:37pm Methamphetamine abuse October 21, 2024 7:37pm Acute respiratory failure with hypoxia a nd hypercapnia November 11, 2024 5:09pm Asthma exacerbation November 11, 2024 5:09pm Hyperglycemia November 11, 2024 5:09pm Leukocytosis November 11, 2024 5:09pm Respiratory acidosis November 11, 2024 5:09pm Chief Complaint Admit Date sob October 21, 2024 7 :26pm RESPIRATORY FAILURE October 21, 2024 7 :37pm RESPIRATORY FAILURE October 22, 2024 8 :33am ACUTE HYPOXIC AND HYPERCAPNIC RESPIRATOR Y FAILURE November 11, 2024 5:09pm ACUTE HYPOXIC AND HYPERCAPNIC RESPIRATOR Y FAILURE November 11, 2024 5:15pm ACUTE HYPOXIC AND HYPERCAPNIC RESPIRATOR Y FAILURE November 12, 2024 7:02am INAHALER November 20, 2024 3:33pm SOB 2024 12:42pm ABSCESS December 04, 2024 4:22 pm COUGH December 13, 2024 11: 17am SOB January 19, 2025 1:4 2pm Additional Source Comments (unrecognized sect ion and content) No Status Records FoundNo Status Records FoundNo Status Records FoundNo Status Records FoundNo Status Records Found INFORMATION SOURCE (unrecogn ized section and content) DATE CREATED AUTHOR 06/15/2018 [facility] DATE CREATED AUTHOR AUTHOR'S ORGANIZ ATION 08/04/2019 [facility] DATE CREATED AUTHOR AUTHOR'S ORGANIZ ATION 08/08/[address] [facility] DATE CREATED AUTHOR AUTHOR'S ORGANIZ ATION 01/25/2025 [facility] DATE CREATED AUTHOR AUTHOR'S ORGANIZ ATION 02/06/2025 [facility] Goals (unrecognized section and content) Goals may be documented in a n alternate sectionGoals may be documented in an alternate sectionGoals may be documented in an alternate sectionGoals may be documented in an alternate sectionGoals may be documented in an alternate sectionGoals may be documented in an alternate sectionGoals may be documented in an alternate sectionGoals may be documented in an alternate section Care Teams (unrecognized sec tion and content) Team Status: Active Member Role Status Dates No Primary Care Physician Primary Care Provider Active Team Status: Active Member Role Status Dates No Primary Care Physician Primary Care Provider Active Start: October 21, 2024 Dr. Julius Matthews DO Emergency Provider Active Start: October 21, 2024 Dr. Troy Monroy MD Attending Provider Active Start: October 21, 2024 Team Status: Inactive Member Role Status Dates No Primary Care Physician Primary Care Provider Active Start: October 21, 2024 End: October 23, 2024 Dr. Julius Matthews DO Emergency Provider Active Start: October 21, 2024 End: October 23, 2024 Dr. Troy Monroy MD Admit Provider Active Star t: October 21, 2024 End: October 23, 2024 Dr. Troy Monroy MD Referring Provider Active Start: October 21, 2024 End: October 23, 2024 Dr. Troy Monroy MD Other Provider Active Star t: October 21, 2024 End: October 23, 2024 Dr. Graham Tolbert DO Attending Provider Active Start: October 21, 2024 End: October 23, 2024 Team Status: Active Member Role Status Dates No Primary Care Physician Primary Care Provider Active Start: October 22, 2024 Dr. Julius Matthews DO Emergency Provider Active Start: October 22, 2024 Dr. Troy Monroy MD Admit Provider Active Star t: October 22, 2024 Dr. Troy Monroy MD Other Provider Active Star t: October 22, 2024 Dr. Graham Tolbert DO Attending Provider Active Start: October 22, 2024 Dr. Graham Tolbert DO Other Provider Active Star t: October 22, 2024 Team Status: Inactive Member Role Status Dates Dr. Remberto Bernal DO Emergency Provider Active S tart: November 11, 2024 End: November 12, 2024 No Primary Care Physician Primary Care Provider Active Start: November 11, 2024 End: November 12, 2024 Dr. Trang Valencia DO Admit Provider Active Start : November 11, 2024 End: November 12, 2024 Dr. Trang Valencia DO Other Provider Active Start : November 11, 2024 End: November 12, 2024 Dr. Graham Tolbert DO Attending Provider Active Start: November 11, 2024 End: November 12, 2024 Team Status: Active Member Role Status Dates Dr. Remberto Bernal DO Emergency Provider Active S tart: November 11, 2024 No Primary Care Physician Primary Care Provider Active Start: November 11, 2024 Dr. Trang Valencia DO Admit Provider Active Start : November 11, 2024 Dr. Trang Valencia DO Attending Provider Active S tart: November 11, 2024 Dr. Trang Valencia , DO Other Provider Active Start : November 11, 2024 Team Status: Active Member Role Status Dates Dr. Remberto Bernal , Emergency Provider Active S tart: November 12, 2024 No Primary Care Physician Primary Care Provider Active Start: November 12, 2024 Dr. Trang Valencia , DO Admit Provider Active Start : November 12, 2024 Dr. Trang Valencia , DO Other Provider Active Start : November 12, 2024 Dr. Graham Tolbert , Attending Provider Active Start: November 12, 2024 Dr. Graham Tolbert , Other Provider Active Star t: November 12, 2024 Team Status: Inactive Member Role Status Dates No Primary Care Physician Primary Care Provider Active Start: November 20, 2024 End: November 20, 2024 Dr. Graham Messina , Attending Provider Active Start: November 20, 2024 End: November 20, 2024 Dr. Graham Messina , Emergency Provider Active Start: November 20, 2024 End: November 20, 2024 Team Status: Inactive Member Role Status Dates No Primary Care Physician Primary Care Provider Active Start: 2024 End: 2024 Dr. Lacho Joy , DO Attending Provider Activ e Start: 2024 End: 2024 Dr. Lacho Joy DO Referring Provider Activ e Start: 2024 End: 2024 Dr. Lacho Joy DO Emergency Provider Activ e Start: 2024 End: 2024 Team Status: Inactive Member Role Status Dates No Primary Care Physician Primary Care Provider Active Start: December 04, 2024 End: December 04, 2024 Dr. Julius Matthews , Attending Provider Active Start: December 04, 2024 End: December 04, 2024 Dr. Julius Matthews , Emergency Provider Active Start: December 04, 2024 End: December 04, 2024 Team Status: Inactive Member Role Status Dates No Primary Care Physician Primary Care Provider Active Start: December 13, 2024 End: December 13, 2024 Homar Nieves MD Attending Provider Active Star t: December 13, 2024 End: December 13, 2024 Homar Nieves MD Emergency Provider Active Star t: December 13, 2024 End: December 13, 2024 Team Status: Inactive Member Role Status Dates No Primary Care Physician Primary Care Provider Active Start: January 19, 2025 End: January 19, 2025 Dr. Tae Walsh MD Emergency Provider Active Sta rt: January 19, 2025 End: January 19, 2025 Team Status: Active Member Role Status Dates No Primary Care Physician Family Provider Active No Primary Care Physician Primary Care Provider Active Team Status: Active Member Role Status Dates No Primary Care Physician Primary Care Provider Active Dr. Sebas Hess DO Emergency Provider Active Dr. Alisha Mcintyre MD Admit Provider, Other Provider Active Dr. Brittny Cope MD Attending Provider, Other Provider Active Team Status: Active Member Role Status Dates No Primary Care Physician Primary Care Provider Active Dr. Sebas Hess DO Emergency Provider Active Dr. Alisha Mcintyre MD Admit Provider, Other Provider Active Dr. Kimberly Márquez MD Attending Provider, Other Provid er Active Dr. Brittny Cope MD Other Provider Active Team Status: Inactive Member Role Status Dates No Primary Care Physician Primary Care Provider Active Dr. Ender Garcia MD Attending Provider, Emergency Provider Active Team Status: Inactive Member Role Status Dates No Primary Care Physician Primary Care Provider Active Dr. Sebas Hess DO Emergency Provider Active Dr. Alisha Mcintyre MD Admit Provider, Other Provider Active Dr. Kimberly Márquez MD Attending Provider Active Dr. Brittny Cope MD Other Provider Active Team Status: Inactive Member Role Status Dates No Primary Care Physician Primary Care Provider Active Dr. Darinel Henriquez MD Attending Provider, Emergency Provider Active Team Status: Inactive Member Role Status Dates No Primary Care Physician Primary Care Provider Active Dr. Graham Messina DO Attending Provider, Emergency P rosonam Active Team Status: Inactive Member Role Status Dates No Primary Care Physician Primary Care Provider Active Dr. Andrew Henning , Attending Provider, Emergency Pr ovider Active Team Status: Inactive Member Role Status Dates No Primary Care Physician Primary Care Provider Active Dr. Michael De Anda DO Attending Provider, Emergency Provider Active Team Status: Inactive Member Role Status Dates No Primary Care Physician Primary Care Provider Active Dr. Sebas Hess DO Attending Provider, Emergency Provide r Active Team Status: Inactive Member Role Status Dates No Primary Care Physician Primary Care Provider Active Homar Nieves MD Emergency Provider Active Team Status: Inactive Member Role Status Dates No Primary Care Physician Primary Care Provider Active Homar Nieves MD Attending Provider, Emergency Provid er Active Team Status: Inactive Member Role Status Dates No Primary Care Physician Primary Care Provider Active Dr. Michael De Anda DO Emergency Provider Active Team Status: Inactive Member Role Status Dates No Primary Care Physician Primary Care Provider Active Dr. Twan Garcia MD Emergency Provider Active Team Status: Active Member Role Status Dates No Primary Care Physician Primary Care Provider Active Dr. Michael De Anda DO Emergency Provider Active Dr. Alisha Mcintyre MD Admit Provider, Other Provider Active Dr. Nelson Mckeon DO Attending Provider, Other Pro vider Active Team Status: Inactive Member Role Status Dates No Primary Care Physician Primary Care Provider Active Dr. Twan Garcia MD Attending Provider, Emergency Pro vider Active Team Status: Inactive Member Role Status Dates No Primary Care Physician Primary Care Provider Active Dr. Michael De Anda DO Emergency Provider Active Dr. Alisha Mcintyre MD Admit Provider, Other Provider Active Dr. Nelson Mckeon DO Attending Provider Active Team Status: Inactive Member Role Status Dates No Primary Care Physician Primary Care Provider Active Dr. Xenia Hall MD Attending Provider, Emergency Provider Active Team Status: Inactive Member Role Status Dates No Primary Care Physician Primary Care Provider Active Dr. Ender Garcia MD Emergency Provider Active Team Status: Active Member Role Status Dates No Primary Care Physician Primary Care Provider Active Dr. Graham Messina DO Emergency Provider Active Dr. Alisha Mcintyre MD Attending Provider Active Team Status: Active Member Role Status Dates No Primary Care Physician Primary Care Provider Active Dr. Graham Messina DO Emergency Provider Active Dr. Alisha Mcintyre MD Admit Provider, Attending Prov ider Active Team Status: Active Member Role Status Dates No Primary Care Physician Primary Care Provider Active Dr. Graham Messina DO Emergency Provider Active Dr. Alisha Mcintyre MD Admit Provider, Other Provider Active Dr. Jaquan Mabry MD Attending Provider, Other Provid er Active Team Status: Inactive Member Role Status Dates No Primary Care Physician Primary Care Provider Active Dr. Graham Messina DO Emergency Provider Active Dr. Alisha Mcintyre MD Admit Provider, Other Provider Active Dr. Jaquan Mabry MD Attending Provider Active Team Status: Inactive Member Role Status Dates No Primary Care Physician Primary Care Provider Active Dr. Andrew Henning , Emergency Provider Active Team Status: Inactive Member Role Status Dates No Primary Care Physician Primary Care Provider Active Dr. Hattie Kapadia DO Emergency Provider Active Team Status: Active Member Role Status Dates No Primary Care Physician Primary Care Provider Active Dr. Tae Walsh MD Emergency Provider Active Dr. Alisha Mcintyre MD Attending Provider Active Team Status: Inactive Member Role Status Dates No Primary Care Physician Primary Care Provider Active Dr. Hattie Kapadia DO Attending Provider, Emergency P rovider Active Team Status: Active Member Role Status Dates No Primary Care Physician Primary Care Provider Active Dr. Tae Walsh MD Emergency Provider Active Dr. Alisha Mcintyre MD Admit Provider, Attending Prov ider Active Team Status: Active Member Role Status Dates No Primary Care Physician Primary Care Provider Active Dr. Tae Walsh MD Emergency Provider Active Dr. Alisha Mcintyre MD Admit Provider, Other Provider Active Dr. Graham Tolbert DO Attending Provider, Other Provid er Active Dr. Amparo Nguyen MD Other Provider Active Team Status: Inactive Member Role Status Dates No Primary Care Physician Primary Care Provider Active Dr. Tae Walsh MD Emergency Provider Active Dr. Alisha Mcintyre MD Admit Provider, Other Provider Active Dr. Graham Tolbert DO Attending Provider Active Dr. Amparo Nguyen MD Other Provider Active Team Status: Inactive Member Role Status Dates No Primary Care Physician Primary Care Provider Active Start: September 07, 2024 End: September 07, 2024 Dr. Julius Matthews DO Attending Provider Active Start: September 07, 2024 End: September 07, 2024 Dr. Julius Matthews DO Emergency Provider Active Start: September 07, 2024 End: September 07, 2024 Team Status: Inactive Member Role Status Dates No Primary Care Physician Primary Care Provider Active Start: September 19, 2024 End: September 19, 2024 Dr. Julius Matthews DO Attending Provider Active Start: September 19, 2024 End: September 19, 2024 Dr. Julius Matthews DO Emergency Provider Active Start: September 19, 2024 End: September 19, 2024 Team Status: Inactive Member Role Status Dates No Primary Care Physician Primary Care Provider Active Start: December 04, 2024 End: December 04, 2024 Dr. Julius Matthews DO Emergency Provider Active Start: December 04, 2024 End: March 5th, 2025 Team Status: Inactive Member Role Status Dates No Primary Care Physician Primary Care Provider Active Start: December 13, 2024 End: December 13, 2024 Homar Nieves MD Emergency Provider Active Star t: December 13, 2024 End: December 13, 2024 Source Comments (unrecognize d section and content) In the event this informatio n is protected by the Federal Confidentiality of Alcohol and Drug Abuse Patient Records regulations: The Federal rules restrict any use of the information to criminally investigate or prosecute any alcohol or drug abuse patient.[facility] the event this information is protected by the Federal Confidentiality of Alcohol and Drug Abuse Patient Records regulations: The Federal rules restrict any use of the information to criminally investigate or prosecute any alcohol or drug abuse patient.[facility] Reason for Visit (unrecogniz ed section and content) Reason Comments Consult Right side groin hilaria n Reason Comments 09/05/2023 [facility] + 10/03/2023 [facility] ME GONZALEZ FOR RECORDS PERTAINING TO PATIENTS WHO ARE [...] BE BASED ON THE PRIMARY CLINICAL RECORDS. [employer] [facility]. provides no warranty or guarantee of the accuracy or completeness of information in this document.
[2025-03-29] MEDS: 0.9% Normal Saline (1000mL) 1,000 ML 999 ML IV (18:35)
--- NOTE | 2025-03-29 18:36 | EX.ED.DYSGE1 ---
HPI History of Present Illness Chief Complaint: Weakness Narrative Narrative: Patient is a 49-year-old male with past medical history of alcohol abuse, methamphetamine abuse, bipolar disorder anxiety, depression,, hypertension who presents to the emergency department with a chief complaint of being found by police in the community weak and not feeling well. Patient states that currently he just does not feel well overall. Patient denies any history of IV drug use states that he smokes meth. PFSH [facility] Medical History ETOH abuse Methamphetamine abuse Asthma Depression Anxiety Methamphetamine abuse Ankle fracture, left Bipolar disorder Depression Anxiety Past history of chewing tobacco use Asthma with COPD Anxiety and depression Inguinal hernia bilateral, non-recurrent Hypertension Stroke/cerebrovascular accident Alcohol abuse [place] of lung GERD (gastroesophageal reflux disease) Home Medications ?Medication ?Instructions ?Recorded ?Last Taken ?Type NK 03/29/25 Unknown History Allergy/AdvReac Type Severity Reaction Status Date / Time No Known Allergies Allergy Verified 03/29/25 17:47 Family History Father Alcoholism CAD (coronary artery disease) Heart disease Hypertension Mother Alcoholism Seizures Surgical History History of ankle surgery Social History housing: apartment Smoking Status: Unknown if ever smoked Smokeless tobacco user: chewing tobacco how long ago did patient quit smoking: Notes no cig tob use, prior chew only but no current, ongoing cannabis use. alcohol intake: current alcohol intake frequency: a few times a week details: 5-6 beers daily, occasionally whiskey. substance use type: marijuana, amphetamines, opiates and methamphetamine ROS ROS ED ROS Narrative Constitutional: Denies fevers, chills, headaches, lightness, dizziness Eyes: Denies change in vision double vision blurry vision Cardiovascular: Complains of chest pain denies palpitations Respiratory: Denies coughing wheezing shortness of breath Abdomen: Denies abdominal pain nausea vomit diarrhea : Denies urinary symptoms Neurological: Denies numbness, wheeze, tingling Musculoskeletal: Denies back pain Skin: Any rashes or lesions EXAM Physical Exam Narrative Exam Narrative: General: Patient lying in bed rest comfortably did not appear to be acute distress Head: Atraumatic, normocephalic Eyes: PERRL bilaterally, EOMI bilaterally, no conjunctival injection noted Neck: Soft, supple, trachea midline Cardiovascular: Regular rate and rhythm no murmurs gallops rubs noted Respiratory: Clear to auscultation bilaterally no rales rhonchi or wheezes noted Abdomen: Soft, nondistended, nontender to palpation Extremities: +4/5 strength noted in the bilateral upper and lower extremities, radial pulses +2/4 in the bilateral extremities, no pedal edema exam Neurological: Patient following commands knew that he was at the hospital the year is 2024 he was able to tell me his name. NIH of 0 GCS 15 Skin: Warm, dry, intact no rashes or lesions noted Const Vital Signs: 03/29/25 17:47 03/29/25 17:57 03/29/25 19:00 Temperature 96.9 F L Temperature Source Temporal Pulse Rate 66 Respiratory Rate 18 Respiratory Effort Normal Non-Labored Respiratory Pattern Normal Blood Pressure 101/78 Blood Pressure Mean 85 Pulse Ox 100 100 Oxygen Delivery Method Room Air Room Air 03/29/25 19:17 03/29/25 19:30 03/29/25 21:00 Temperature 96.7 F L Temperature Source Axillary Pulse Rate 74 79 Respiratory Rate 16 16 Respiratory Effort Respiratory Pattern Blood Pressure 127/78 H 133/79 H Blood Pressure Mean 94 97 Pulse Ox 98 100 Oxygen Delivery Method Room Air Room Air Room Air MDM MDM MDM Narrative Medical decision making narrative: Patient is a 49-year-old male who presented to the emergency department the chief complaint of being found out in the community with generalized weakness and was brought in by police. On the differential diagnosis includes but limited to polysubstance abuse, electrolyte abnormality, ACS, pneumonia. Once workup is obtained and reviewed he will be reevaluated. Patient be given IV fluids for hydration. Patient CBC was reviewed showed no evidence leukocytosis white blood count normal 7.1, hemoglobin 13, platelet count was 338. Patient's sodium normal 141, potassium normal 3.5, creatinine normal at 1.01. Patient's AST and ALT are 54 and 86 respectively. Patient troponin was less than 6 with a delta troponin of 7. Patient's EKG was reviewed which showed sinus rhythm with a rate of 77 bpm. Patient lipase normal at 24. Patient's chest x-ray reviewed by myself by radiology showed COPD no acute findings. Patient was complaining of chest pain again therefore repeat EKG was performed showed sinus rhythm with a rate of 75 bpm. This is unchanged from EKG that was originally obtained. Patient ambulated well in the emergency department no difficulty no hypoxia no tachycardia. He was advised to follow-up with In outpatient setting and return with worsening symptoms or concerns. He is agreeable to plan all course concerns answered is discharged home in stable condition Lab Data Labs: Laboratory Results - last 24 hr 03/29/25 03/29/25 17:54 20:39 WBC 7.1 RBC 4.19 L Hgb 13.0 Hct 38.9 L MCV 92.8 MCH 31.0 MCHC 33.4 RDW Std Deviation 43.4 RDW Coeff of Bridger 12.7 Plt Count 338 MPV 9.5 Immature Gran % (Auto) 0.300 Neut % (Auto) 59.0 Lymph % (Auto) 28.8 Payne % (Auto) 7.3 Eos % (Auto) 3.8 Baso % (Auto) 0.8 Absolute Neuts (auto) 4.2 Absolute Lymphs (auto) 2.05 Nucleated RBC % 0 Sodium 141 Potassium 3.5 Chloride 102 Carbon Dioxide 22.8 Anion Gap 17 H BUN 24 H Creatinine 1.01 Estim Creat Clear Calc 79.84 Est GFR (MDRD) Non-Af 91 BUN/Creatinine Ratio 23.3 H Glucose 244 H Calcium 9.3 Total Bilirubin 0.46 AST 54 H ALT 86 H Alkaline Phosphatase 55 Troponin T High Sens < 6 Troponin T Hi Sens 2 Hr 7 Total Protein 7.7 Albumin 4.4 Globulin 3.2 Albumin/Globulin Ratio 1.4 Lipase 24 Radiography Diagnostic Testing: Clinical Impression(s) from Imaging Studies Chest X-Ray 03/29/25 18:40 IMPRESSION: COPD. NO ACUTE FINDINGS. Reading Location: [id number] Discharge Plan Triage Chief Complaint: Weakness ED Provider: Sebastian Braswell Dx/Rx/DC Orders Clinical Impression: Chest pain Prescriptions: No Action NK Primary Care Provider: Care Physician,No Primary Referrals: Care Physician,No Primary [Primary Care Provider] - Yolanda Garcia Mamta, HOSTING ENGINEER-C [[facility]] - Activity Restrictions/Additional Instructions: Follow-up with your doctor in outpatient. Return with worsening symptoms or any concerns. Print Language: Maltese Disposition Disposition: Home, Self Care
--- NOTE | 2025-03-29 18:40 | RAD_ITS ---
PROCEDURE: CHEST PA AND LATERAL 03/29/2025 REASON FOR EXAM: CHEST PAIN TECHNIQUE: CHEST PA AND LATERAL COMPARISON: Chest radiograph 12/2024. FINDINGS: Hardware: None. Heart: The heart size is normal. Mediastinum: The mediastinal contour is stable. Lungs: Stable findings of emphysema. No focal consolidation, pleural effusion or pneumothorax. Bones: The bones are unremarkable. RAD/Chest PA and Lateral IMPRESSION: COPD. NO ACUTE FINDINGS. Reading Location: [id number]
[2025-03-29 18:41] LABS: Absolute Lymphocyte Count 2.05 X10^3/uL (0.83-4.51); Absolute Neutrophil Count 4.2 X10^3/uL (2.0-7.7); Basophil# 0.06 X10^3/uL; Basophil% 0.8 % (0-1); Eosinophil# 0.27 X10^3/uL; Eosinophils% 3.8 % (0-5); Hematocrit 38.9 % (40-54); Lymphocyte # 2.05 X10^3/ul (0.83-4.51); Lymphocyte % 28.8 % (19-41); Mean Corp Hgb Conc 33.4 g/dL (32-36); Mean Corpuscular Volume 92.8 fL (80-94); Mean Platelet Vol. 9.5 fl (6.2-12.0); Monocyte# 0.52 X10^3/uL; Monocyte% 7.3 % (0-10); NRBC Flagged by Analyzer 0 % (0-5); Platelet Count 338 K/mm3 (150-450); RBC Distribution Width CV 12.7 % (11.6-14.6); RBC Distribution Width SD 43.4 fl (35.1-43.9); Red Blood Count 4.19 M/mm3 (4.6-6.2); White Blood Count 7.1 K/mm3 (4.4-11.0)
[2025-03-29 18:59] LABS: ALB/GLOB Ratio 1.4 RATIO (0.9-2.4); AST(SGOT) 54 U/L (<=37); Alanine Aminotransfer ALT/SGPT 86 U/L (<=46); Albumin, Serum 4.4 g/dL (3.5-5.0); Alkaline Phosphatase 55 U/L (40-129); Anion Gap 17 (5-15); BUN 24 mg/dL (4-19); BUN/Creat Ratio 23.3 RATIO (10-20); Calcium,Total 9.3 mg/dL (7.6-11.0); Carbon Dioxide 22.8 mmol/L (21.0-32.0); Chloride 102 mmol/L (98-108); Creatinine, Serum 1.01 mg/dL (0.70-1.20); EST Glomerular Filtration Rate 91 (>60); Estimated Creatinine Clearance 79.84 ml/min (50-250); Globulin 3.2 g/dL (2.2-4.2); Glucose 244 mg/dL (70-99); Lipase 24 U/L (13-75); Potassium 3.5 mmol/L (3.3-5.1); Protein, Total 7.7 g/dL (5.9-8.4); Sodium Level 141 mmol/L (133-145); Total Bilirubin 0.46 mg/dL (0.00-1.30)
[2025-03-29 19:00] VITALS: O2SAT 100
[2025-03-29 19:30] VITALS: BP 127/78; PULSE 74; RESP 16; TEMP 35.9; O2SAT 98
[2025-03-29 19:51] LABS: Troponin T High Sensitivity < 6 ng/L (<=22)
[2025-03-29 21:00] VITALS: BP 133/79; PULSE 79; RESP 16; O2SAT 100
--- NOTE | 2025-03-29 21:30 | EKG12_ITS ---
Test Reason : REPEAT Blood Pressure : */* mmHG Vent. Rate : 75 BPM Atrial Rate : 75 BPM P-R Int : 130 ms QRS Dur : 94 ms QT Int : 406 ms P-R-T Axes : 76 74 63 degrees QTcB Int : 453 ms Normal sinus rhythm Normal ECG Confirmed by NANCY WEI, DIETER ([id number]), food editor OMERO ROBLES ([id number]) on 04/01/2025 11:04:55 AM Referred By: Sebastian Braswell Confirmed By: DIETER CRUZ MD
--- NOTE | 2025-03-29 21:36 | ED.RN ---
Patient ambulated with steady gait, the patient then started to complain about chest pain, the patient was assisted back into bed safely. This RN called for an EKG and informed MD about patient's complaints. No new orders at this time.
[2025-03-29 21:55] LABS: Troponin T High Sens 2 HR 7 ng/L (<=22)
[2025-03-29 22:40] VITALS: BP 139/90; PULSE 85; RESP 16; TEMP 36.2; O2SAT 100
== END 2025-03-29 22:42 | disposition home or self-care (01) ==
PROVIDERS: Emergency Provider Emergency Medicine; Referring Provider Emergency Medicine; Visit Provider Emergency Medicine
DX: R07.9 Chest pain, unspecified (principal); F31.9 Bipolar disorder, unspecified; J44.9 Chronic obstructive pulmonary disease, unspecified; I10 Essential (primary) hypertension; R53.1 Weakness; R29.700 NIHSS score 0; K21.9 Gastro-esophageal reflux disease without esophagitis; F17.220 Nicotine dependence, chewing tobacco, uncomplicated
CPT/HCPCS: 71046; 80053; 83690; 84484; 85025; 93005; 96360; 99285; A4216

== ENCOUNTER 2025-03-30 10:44 | Emergency (ER) | payer MEDICAID, SELFPAY ==
[2025-03-30 10:44] VITALS: BP 110/78; PULSE 86; RESP 19; TEMP 36.9; O2SAT 98; BMI 20.8
--- NOTE | 2025-03-30 10:56 | EDS_ITS ---
HPI History of Present Illness Chief Complaint: Shortness of Breath Narrative Narrative: Patient presents with shortness of breath that became worse today. Patient states he has a history of asthma. Patient states his asthma gets worse in the summertime with that heat. Patient states he feels like he is wheezing in his upper chest. Patient states he has had similar symptoms over the past month. Patient states it comes and goes. Patient states it is better when he is able to drink lots of water. Patient states heat makes it worse. Patient denies any fevers or chills. Patient denies any chest pain. Prior similar symptoms: Yes PFSH PFSH Medical History ETOH abuse Methamphetamine abuse Asthma Depression Anxiety Methamphetamine abuse Ankle fracture, left Bipolar disorder Depression Anxiety Past history of chewing tobacco use Asthma with COPD Anxiety and depression Inguinal hernia bilateral, non-recurrent Hypertension Stroke/cerebrovascular accident Alcohol abuse [place] of lung GERD (gastroesophageal reflux disease) Home Medications ?Medication ?Instructions ?Recorded ?Last Taken ?Type albuterol sulfate 90 mcg/actuation 2 inh inhalation Q6 H 03/30/25 Unknown History aerosol inhaler Allergy/AdvReac Type Severity Reaction Status Date / Time No Known Allergies Allergy Verified 03/29/25 17:47 Family History Father Alcoholism CAD (coronary artery disease) Heart disease Hypertension Mother Alcoholism Seizures Surgical History History of ankle surgery Social History housing: homeless Smoking Status: Unknown if ever smoked Smokeless tobacco user: chewing tobacco how long ago did patient quit smoking: Notes no cig tob use, prior chew only but no current, ongoing cannabis use. alcohol intake: current alcohol intake frequency: a few times a week details: 5-6 beers daily, occasionally whiskey. substance use type: marijuana, amphetamines, opiates and methamphetamine ROS ROS ED Constitutional Constitutional ED: Denies chills or fever(s) Eyes Eyes: Denies blurry vision or change in vision ENT ENT ED: Denies rhinorrhea or sore throat Cardiovascular Cardiovascular: Denies chest pain or palpitations Respiratory/Chest Respiratory/Chest: Reports dyspnea; Denies cough Gastrointestinal Gastrointestinal: Denies nausea or vomiting Genitourinary Genitourinary ED: Denies dysuria or hematuria Musculoskeletal Musculoskeletal: Denies back pain or neck pain Integumentary Denies abscess or rash Neurologic Neurologic: Denies headache(s) or weakness Allergic/Immunologic Allergic/Immunologic ED: Denies mouth swelling or urticaria EXAM Physical Exam Const Vital Signs: 03/30/25 10:44 03/30/25 11:39 Temperature 98.4 F Temperature Source Temporal Pulse Rate 86 Respiratory Rate 19 H Respiratory Effort Normal Non-Labored Respiratory Pattern Normal Blood Pressure 110/78 Blood Pressure Mean 88 Pulse Ox 98 Oxygen Delivery Method Room Air Room Air Positive well nourished and well developed General Appearance ED: well developed and NAD HEENT Reports moist mucous membranes Neck supple and no JVD Resp normal respiratory effort Auscultation: wheezes scattered wheezes Cardio regular rate and regular rhythm GI non-tender and non-distended Palpation: soft Neuro oriented x3, CN's II-XII intact bilaterally and no sensory deficits noted Sensorium / Orientation: alert Motor Exam: strength 5/5 throughout Psych mental status grossly normal MDM MDM MDM Narrative Medical decision making narrative: Patient is requesting an albuterol inhaler. Patient was given 2 puffs of an albuterol inhaler here in the emergency department. Patient was given the inhaler to go home with. Patient was given a referral for primary care physician for follow-up care. Patient was instructed to return if worse in any way. Patient understood and was agreeable with the plan. All questions were answered. History & Record Review Additional record(s) reviewed:: Prior ED visit Discharge Plan Triage Chief Complaint: Shortness of Breath ED Provider: Graham Messina Dx/Rx/DC Orders Clinical Impression: Asthma exacerbation, Substance abuse Instructions: ED Asthma, Acute (Adult), ED MDI Use Spacer or None Prescriptions: No Action albuterol sulfate 90 mcg/actuation HFA aerosol inhaler 2 inh inhalation Q6H Primary Care Provider: Care Physician,No Primary Referrals: Care Physician,No Primary [Primary Care Provider] - Yolanda Garcia, [employer] [[facility]] - 5-7 Days Print Language: Citizen Of [place] Disposition Disposition: Home, Self Care Discharge Date/Time: 03/30/25 11:40
--- OUTSIDE RECORDS SUMMARY | 2025-03-30 11:03 | XMS RPT_ITS | CCD ---
Author Organization [facility] Care Team Providers Care E Business Consultant Name Role Phone CONSULT, ED PSYCHIATRY TEAM [...] Attending Provider Dr. Alisha Mcintyre Admit Provider Dr. Alisha Mcintyre Other Provider Dr. Jaquan Mabry Attending Provider Unavailable Dr. Jaquan Mabry Other Provider Unavailable Unavailable [facility], No Primary Primary Care Provider Unavailable Dr. Tae Walsh Emergency Provider Dr. Alisha Mcintyre Attending Provider Dr. Alisha Mcintyre Admit Provider Dr. Alisha Mcintyre Other Provider Dr. Graham Tolbert Attending Provider Dr. Graham Tolbert Other Provider Dr. Amparo Nguyen Other Provider Unavailable Primary Care Provider UnavailLINDA Castellanos Attending Unavailable Care Physician, No Primary Primary Care Provider Unavailable Dr. Julius Matthews DO Attending Provider Dr. Julius Matthews DO Emergency Provider Porfirio WEI, Dr. Simmons Attending Provider Porfirio WEI, Dr. Simmons Admit [...] Provider Dr. Lacho Joy DO Attending Provider Dr. Lacho Joy DO Referring Provider Benita JONES, Dr. Monk Emergency Provider Homar Nieves MD Emergency Provider Care Physician, No Primary Primary Care Provider Unavailable Cassie JONES, Dr. Madrid Emergency Provider [phone] Cassie JONES, Dr. Madrid Attending Provider [phone] Homar Nieves MD Attending Provider [phone] Nico WEI, Dr. Strong Emergency Provider Care Physician, No Primary Primary Care Provider Unavailable Dr. Julius Matthews DO Emergency Provider Nico WEI, Dr. Strong Attending Provider Michaelle JONES, Dr. Cortes Referring Provider [phone] Michaelle DO, Dr. Cortes Emergency Provider Care Physician, No Primary Primary Care Unava ilable Maximilian Bernstein Attending Unavailable Care Physician, No Primary Primary Care Unava ilable Erik, Trang Consulting Unavailable Erik, Trang Admitting Unavailable Derian Valenciayn Attending Unavailable Joppvalentine, Graham Attending Unavailable Joppvalentine, Graham Consulting Unavailable Monroy, Troy Attending Unavailable Care Physician, No Primary Primary Care Unava ilable Graham Tolbert Attending Unavailable Care Physician, No Primary Primary Care Unava ilable Monroy, Troy Referring Unavailable Monroy, Troy Consulting Unavailable Monroy, Troy Admitting Unavailable Joppvalentine, Graham Consulting Unavailable Care Physician, No Primary Primary Care Unava ilable Andrew Henning Attending Unavailable BraswellSebastian menchaca Attending Unavailable Care Physician, No Primary Primary Care Unava ilable Sebastian Braswell Referring Unavailable Julius Matthews Attending Unavailable Care Physician, No Primary Primary Care Unava ilable Jopperi, Graham Attending Unavailable Care Physician, No Primary Primary Care Unava ilable Erik, Trang Consulting Unavailable Erik, Trang Admitting Unavailable Erik, Trang Referring Unavailable Edouard Tolbertic Attending Unavailable Care Physician, No Primary Primary Care Unava ilable Monroy, Troy Referring Unavailable Monroy, Troy Consulting Unavailable Monroy, Troy Admitting Unavailable Care Physician, No Primary Primary Care Unava ilable Andrew Henning Attending Unavailable Cassie, Julius Attending Unavailable Care Physician, No Primary Primary Care Unava ilable Julius Matthews Attending Unavailable Care Physician, No Primary Primary Care Unava ilable Care Physician, No Primary Primary Care Unava ilable Graham Messina Attending Unavailable Lacho Joy Referring Unavailkari e Lacho Joy Attending Unavailabl e Care Physician, No Primary Primary Care Unava ilable Care Physician, No Primary Primary Care Unava ilable Homar Nieves Attending Unavailable Care Physician, No Primary Primary Care Unava ilable Walsh, Tae Attending Unavailable Allergies Allergy Classification Reported Allergen(s) Allergy Type Date of Onset Reaction(s) Facility (1 source) Seasonal allergy; Translations: [SEASONAL ALLERGIES] Propensity to adverse reactions (disorder) 3 [facility] Medications Current Medications Medication Drug Class(es) Dates Sig (Normalized) Sig (Original) codeine phosphate 2 mg/ml / promethazine hydrochloride 1.25 mg/ml oral solution (1 source) Opioid Agonist, Phenothiazine Start: 09-09-2022 take 1 mL by mouth four times daily as needed Promethazine-Code ine Active 5 ML PO 4 TIMES DAILY NEEDED 140 7 September 09, 2022 4:14am doxycycline monohydrate 100 mg oral capsule (1 source) Tetracycline-class Drug Start: 03-28-2022 take 100 mg by mouth twice daily Doxycycline Monohydrate Active 100 MG PO TWICE A DAY March 28, 2022 12:00am [facility] (Nk) (2 sources) Start: 03-29-2025 [facility] (Nk) Active March 29, 2025 12:00am Start: 03-19-2022 [facility] (Nk) A ctive March 19, 2022 12:00am OLANZapine 5 mg oral tablet (2 sources) Atypical Antipsychotic take 1 tablet by mouth once daily at bedtime OLANZapine (ZYPREXA) 5 mg tablet Take 5 mg by mouth daily at bedtime. Active Comment on above: Take 5 mg by mouth d aily at bedtime. oseltamivir 75 mg oral capsule (2 sources) Neuraminidase Inhibitor Start: 09-05-20 take 75 mg by mouth twice daily Oseltamivir Active 75 MG PO TWICE A DAY September 05, 2022 12:00am polyethylene glycol 3350 082091 mg / potassium chloride 2970 mg / sodium bicarbonate 6740 mg / sodium chloride 5860 mg / sodium sulfate 97758 mg powder for oral solution (1 source) Osmotic Laxative Start: 08-28-20 23 End: 08-28-20 peg 3350-Electrolytes (GOLYTELY) 236-22.74-6.74 -5.86 gram suspension Indications: Screening for colon cancer Take 4,000 mL by mouth one time only for 1 dose. Refer to printed prep instructions from your provider. 4000 mL 0 08/28/2023 08/28/2023 Active Comment on above: Take 4,000 mL by simón th one time only for 1 dose. Refer to printed prep instructions from your provider. Completed/Discontinued Medications Medication Drug Class(es) Dates Sig (Normalized) Sig (Original) [id number] 200 actuat albuterol 0.09 mg/actuat metered dose inhaler (20 sources) beta2-Adrenergic Agonist Start: 12-13-2024 End: 03-29-2025 Albuterol Sulfate (Ventolin Hfa) 90 mcg/actuation HFA aerosol inhaler Discontinued 1 - 2 NMA INHALATION EVERY 4 HOURS NEEDED as needed for Wheezing 1 0 January 19, 2025 12:00am March 29, 2025 5:58pm Start: 11-12-2024 End: 03-29-2025 Albuterol Sulfate 90 mcg/act uation HFA aerosol inhaler Discontinued 1 NMA INHALATION EVERY 6 HOURS as needed for shortness of breath or wheezing 8.5 0 November 20, 2024 6:13pm March 29, 2025 5:58pm Start: 09-07-2024 End: 03-29-2025 Albuterol Sulfate 90 mcg/act uation aerosol powdr breath activated Discontinued 2 NMA INHALATION EVERY 6 HOURS as needed for shortness of breath or wheezing 1 3 September 07, 2024 1:00am March 29, 2025 5:59pm Start: 12-02-2022 End: 08-03-2024 Albuterol Sulfate (Proair Hf a) 90 mcg/actuation HFA aerosol inhaler Discontinued 2 NMA INHALATION EVERY 6 HOURS as needed for shortness of breath or wheezing 8.5 0 December 02, 2022 1:00am August 03, 2024 8:40pm Start: 12-02-2022 take 1 puff(s) by in halation every six hours Albuterol Sulfate (Proair Hfa) 90 mcg/actuation HFA aerosol inhaler Active 2 PUFF INHALATION EVERY 6 HOURS 8.5 December 02, 2022 12:00am Start: 09-09-2022 End: 08-03-2024 Albuterol Sulfate (Ventolin Hfa) 90 mcg/actuation HFA aerosol inhaler Discontinued 2 NMA INHALATION EVERY 4 HOURS NEEDED as needed for Wheezing 1 0 June 02, 2024 12:00am August 03, 2024 [...] mg / clavulanate 125 mg oral tablet (3 sources) Penicillin-class Antibacterial Start: 10-22-2024 End: 03-29-2025 Amoxicillin-Pot Clavulanate 875-125 mg tablet Discontinued 1 {tbl} PO Q12H 10 0 October 22, 2024 1:00am March 29, 2025 5:58pm azithromycin 250 mg oral tablet (3 sources) Macrolide Antimicrobial Start: 09-19-2024 End: 10-21-2024 Azithromycin 250 mg tablet Discontinued 0 PO .COMPLEX 6 0 September 19, 2024 1:00am October 21, 2024 5:27pm For 250 mg dose pack: take 500 mg today (day 1), then 250 mg for 4 days (days 2-5) chlordiazePOXIDE hydrochloride 25 mg oral capsule (3 sources) Benzodiazepine Start: 06-03-2024 End: 08-03-2024 take 1 capsule by mouth four times daily Chlordiazepoxide Hcl 25 mg capsule Discontinued 25 mg PO 4 TIMES DAILY 20 5 0 June 03, 2024 12:00am August 03, 2024 8:40pm etodolac 200 mg oral capsule (20 sources) Nonsteroidal Anti-inflammatory Drug Start: 08-14-2013 End: 10-05-2013 take 1 capsule by mouth three times daily at mealtime Etodolac 200 MG capsule Discontinued 200 mg PO 3 TIMES DAILY WITH MEALS August 14, 2013 1:00am October 05, 2013 7:14pm with food 12 hr guaiFENesin 1200 mg extended release oral tablet (3 sources) Start: 11-12-2024 End: 03-29-2025 take 1 tablet by mouth twice daily, then take 1 tablet by mouth every twelve hours Guaifenesin (Mucus Relief Er) 1,200 mg Tablet Extended Release 12hr Discontinued 1200 mg PO TWICE A DAY 10 0 November 12, 2024 1:00am March 29, 2025 5:58pm hydrocortisone 10 mg/ml topical cream (3 sources) Corticosteroid Start: 06-02-2024 End: 06-03-2024 Hydrocortisone 1 % cream Discontinued 1 NMA TOPICAL TWICE A DAY 28.4 5 0 June 02, 2024 12:00am June 03, 2024 5:23am Multivitamin (Daily Multi-Vitamin) tablet (4 sources) Start: 10-31-2023 End: 06-03-2024 Multivitamin (Daily Multi-Vitamin) tablet Discontinued 1 {tbl} PO DAILY October 31, 2023 1:00am June 03, 2024 5:23am Start: 10-31-2023 End: 06-03-2024 Multivitamin (Daily Multi-Vi tamin) tablet Discontinued 1 {tbl} PO DAILY October 31, 2023 1:00am June 03, 2024 5:23am Start: 10-31-2023 take 1 tablet by simón once daily Multivitamin (Daily Multi-Vitamin) tablet Active 1 TABLET PO DAILY October 31, 2023 12:00am Multivitamin Tablet (3 sources) Start: 11-12-2024 End: 03-29-2025 Multivitamin Tablet Disconti nued 1 {tbl} PO WITH LUNCH 0 November 12, 2024 1:00am March 29, 2025 5:59pm Start: 11-12-2024 Multivitamin T ablet Active 1 {tbl} PO WITH LUNCH 0 November 12, 2024 1:00am naproxen 500 mg oral tablet (12 sources) Nonsteroidal Anti-inflammatory Drug Start: 03-26-2023 End: 09-01-2023 take 1 tablet by mouth twice daily Naproxen 500 mg tablet Discontinued 500 mg PO TWICE A DAY 14 0 March 26, 2023 12:00am September 01, 2023 1:30am pain ondansetron 4 mg disintegrating oral tablet (3 sources) Serotonin-3 Receptor Antagonist Start: 06-03-2024 End: 08-03-2024 take 1 tablet by mouth three times daily as needed for nausea and vomiting Ondansetron 4 mg tablet,disintegr ating Discontinued 4 mg PO THREE TIMES A DAY as needed for nausea and vomiting 21 June 03, 2024 6:21am August 03, 2024 8:40pm penicillin v potassium 500 mg oral tablet (12 sources) Start: 03-26-2023 End: 09-01-2023 take 1 tablet by mouth four times daily predniSONE 20 mg oral tablet (20 sources) Start: 10-22-2024 End: 03-29-2025 take 2 tablets by mouth once daily Prednisone 20 mg tablet Discontinued 40 mg PO DAILY 10 5 2024 1:00am March 29, 2025 5:58pm Start on 11/28/2024 Start: 09-19-2024 End: 10-21-2024 take 1 tablet by mouth once daily Prednisone 50 mg tablet Discontinued 50 mg PO DAILY September 19, 2024 1:00am October 21, 2024 5:27pm Start: 09-07-2024 End: 10-21-2024 take 1 tablet by mouth once daily Prednisone 20 mg tablet Discontinued 20 mg PO DAILY 5 5 September 07, 2024 1:00am October 21, 2024 5:27pm Start: 01-22-2023 End: 09-01-2023 take 2 tablets by mouth once daily Prednisone 20 mg tablet Discontinued 40 mg PO DAILY 10 5 January 22, 2023 12:00am September 01, 2023 1:30am not taking! Start: 01-22-2023 End: 09-01-2023 take 40 mg [...] 12:00am September 23, 2020 12:24am With food sulfamethoxazole 800 mg / trimethoprim 160 mg oral tablet (3 sources) Dihydrofolate Reductase Inhibitor Antibacterial, Sulfonamide Antimicrobial Start: 06-02-2024 End: 08-03-2024 Sulfamethoxazole-Trimethopri m 800-160 mg tablet Discontinued 1 {tbl} PO TWICE A DAY 14 0 June 02, 2024 12:00am August 03, 2024 8:40pm Problems Active Problems Problem Classification Problem Date Documented Date Episodic/Chronic Abdominal hernia (20 sources) Inguinal hernia; Translations: [Unilateral inguinal hernia, without obstruction or gangrene, not specified as recurrent] 02-20-2022 Episodic Acute bronchitis (20 sources) Acute bronchitis with bronchospasm; Translations: [Acute bronchitis, unspecified] 04-05-2022 Episodic Alcohol-related disorders (20 sources) Alcohol intoxication; Translations: [Alcohol abuse with intoxication, unspecified] Chronic Alcohol-related disorders (20 sources) Alcohol intoxication; Translations: [Alcohol use, unspecified with intoxication, unspecified] Episodic Anxiety disorders (6 sources) Anxiety; Translations: [Anxiety disorder, unspecified] 06-11-2024 Chronic Asthma (20 sources) Exacerbation of asthma; Translations: [Unspecified asthma with (acute) exacerbation] Onset: 11-19-2024 09-21-2020 Chronic Cardiac dysrhythmias (20 sources) ECG: sinus tachycardia; Translations: [Tachycardia, unspecified] 10-24-2020 Episodic Chronic obstructive pulmonary disease and bronchiectasis (20 sources) Bulla of lung; Translations: [Emphysema, unspecified] 02-07-2021 Chronic Chronic obstructive pulmonary disease and bronchiectasis (3 sources) Bronchitis; Translations: [Bronchitis, not specified as acute or chronic] 09-27-2024 Episodic Conditions associated with dizziness or vertigo (20 sources) Dizziness; Translations: [Dizziness and giddiness] 02-20-2022 Episodic Diseases of white blood cells (6 sources) Leukocytosis; Translations: [Elevated white blood cell count, unspecified] Onset: 11-19-2024 11-19-2024 Chronic Disorders of teeth and jaw (20 sources) Dislocation of tooth; Translations: [Dislocation of tooth, initial encounter] 11-03-2022 Episodic E Codes: Fall (17 sources) Fall; Translations: [Unspecified fall, initial encounter] 11-03-2022 Episodic Esophageal disorders (20 sources) Gastroesophageal reflux disease; Translations: [Gastro-esophageal reflux disease without esophagitis] 03-19-2022 Chronic Essential hypertension (3 sources) Hypertensive disorder; Translations: [Essential (primary) hypertension] 08-11-2024 Chronic Fluid and electrolyte disorders (20 sources) Dehydration; Translations: [Dehydration] 02-20-2022 Episodic Headache; including migraine (20 sources) Headache; Translations: [Headache] 06-29-2021 Episodic Inflammation; infection of eye (except that caused by tuberculosis or sexually transmitteddisease) (20 sources) Acute atopic conjunctivitis; Translations: [Acute atopic conjunctivitis, bilateral] 07-27-2021 Episodic Influenza (20 sources) Influenza due to Influenza A virus; Translations: [Influenza due to other identified influenza virus with other respiratory manifestations] 09-13-2022 Episodic Mood disorders (6 sources) Bipolar disorder; Translations: [Bipolar disorder, unspecified] 06-11-2024 Chronic Nonspecific chest pain (1 source) Chest pain; Translations: [Chest pain, unspecified] 03-29-2025 Episodic Open wounds of extremities (15 sources) Laceration of hand; Translations: [Laceration without foreign body of left hand, initial encounter] 12-15-2022 Episodic Open wounds of head; neck; and trunk (17 sources) Laceration of lip ; Translations: [Laceration without foreign body of lip, initial encounter] 11-03-2022 Episodic Other lower respiratory disease (8 sources) Radiologic infiltrate of lung ; Translations: [Other nonspecific abnormal finding of lung field] 09-13-2022 Episodic Other lower respiratory disease (20 sources) H/O: asthma; Translations: [Personal history of other diseases of the respiratory system] 10-31-2022 Episodic Other lower respiratory disease (12 sources) Single lobe lung infiltrate; Translations: [Other nonspecific abnormal finding of lung field] 09-13-2022 Episodic Other lower respiratory disease (3 sources) Cough; Translations: [Cough] 12-13-2024 Episodic Other lower respiratory disease (3 sources) Nodule of lung; Translations: [Solitary pulmonary [...] of colon] 08-28-2023 Episodic Other skin disorders (3 sources) Folliculitis; Translations: [Follicular disorder, unspecified] 06-10-2024 Episodic Other upper respiratory infections (20 sources) Viral upper respiratory tract infection; Translations: [Acute upper respiratory infection, unspecified] Episodic Residual codes; unclassified (20 sources) Drug therapy finding; Translations: [Other specified health status] 08-03-2022 Episodic Residual codes; unclassified (1 source) Alcoholism; Translations: [Alcohol use disorder] 06-11-2024 Episodic Residual codes; unclassified (2 sources) Other specified conditions influencing health status; Translations: [Alcohol use disorder] 06-11-2024 Episodic Screening and history of mental health and substance abuse codes (7 sources) H/O: manic depressive disorder; Translations: [Personal history of other mental and behavioral disorders] 06-06-2023 Episodic Substance-related disorders (20 sources) Substance abuse; Translations: [Other psychoactive substance abuse, uncomplicated] Onset: 10-23-2024 Chronic Superficial injury; contusion (20 sources) Contusion of nose; Translations: [Contusion of nose, initial encounter] 11-03-2022 Episodic Syncope (17 sources) Syncope; Translations: [Syncope and collapse] 11-03-2022 [...] Classification Problem Date Documented Da te Episodic/Chronic Administrative/social admission (20 sources) Repeated prescription; Translations: [Encounter for issue of repeat prescription] Onset: 12-02-2024 10-31-2022 Episodic Diabetes mellitus without complication (6 sources) Hyperglycemia; Translations: [Hyperglycemia, unspecified] Onset: 11-19-2024 11-19-2024 Episodic Other injuries and conditions due to external causes (1 source) Unspecified injury of unspecified lower leg, initial encounter; Translations: [Unspecified injury of unspecified lower leg, initial encounter] Onset: 11-19-2024 Episodic Other skin disorders (1 source) Rash and other nonspecific skin eruption; Translations: [Rash and other nonspecific skin eruption] Onset: 11-19-2024 Episodic Respiratory failure; insufficiency; arrest (adult) (9 sources) Acute hypoxemic and hypercapnic respiratory failure; Translations: [Acute respiratory failure with hypoxia] Onset: 11-19-2024 11-19-2024 Episodic Skin and subcutaneous tissue infections (1 source) Cutaneous abscess, unspecified; Translations: [Cutaneous abscess, unspecified] Onset: 12-14-2024 Episodic Unclassified (1 source) Other stimulant use, [...] Test Name Value Interpretation Reference Range Facility Absolute lymphocyte countOrd ered By: Sebastian Braswell on 03-29-2025 Lymphocytes Auto (Unsp spec) [#/Vol] 2.05 10*3/uL 0.83-4.51 [facility] Absolute neutrophil countOrd ered By: Sebastian Braswell on 03-29-2025 Neutrophils (Bld) [#/Vol] 4.2 10*3/uL 2.0-7.7 [facility] Anion gap in Serum or Plasma Ordered By: Sebastian Braswell on 03-29-2025 Anion gap [Moles/Vol] 17 mmol/L High 5-15 [facility] Automated lymphocyte count a s percentage of total leukocytesOrdered By: Sebastian Braswell on 03-29-2025 Lymphocytes/100 WBC Auto (Unsp spec) 28.8 % 19-41 [facility] BUN/creatinine ratioOrdered By: Sebastian Braswell on 03-29-2025 Urea nitrogen/Creatinine [Mass ratio] 23.3 mg/mg High 10-20 [facility] Basophil percentageOrdered B y: Sebastian Braswell on 03-29-2025 Basophils/100 WBC (Bld) 0.8 % 0-1 [facility] Bilirubin, totalOrdered By: Sebastian Braswell on 03-29-2025 Bilirubin [Mass/Vol] 0.46 mg/dL 0.00-1.30 [facility] CBC W/Diff, Automatedon 03-03 Absolute Lymph 2.05 X10 3/uL Normal 0.83-4.51 [facility] Comment on above: Performed By: #### L 500.4050, L100.0100, L501.2450 ####[facility] [id number] [place], [address] Absolute Neut 4.2 X10 3/uL Normal 2.0-7.7 [facility] Comment on above: Performed By: #### L 500.4050, L100.0100, [id number] ####[facility] [address] [place], [address] Basophils/100 WBC (Bld) 0.8 % Normal 0-1 [facility] Comment on above: Performed By: #### L 500.4050, L100.0100, [id number] ####[facility] [id number] [place], [address] Eosinophils/100 WBC (Bld) 3.8 % Normal 0-5 [facility] Comment on above: Performed By: #### L 500.4050, L100.0100, [id number] ####[facility] [id number] [place], [address] Erythrocyte distribution width (RBC) [Ratio] 12.7 % Normal 11.6-14.6 [facility] Comment on above: Performed By: #### L 500.4050, L100.0100, [id number] ####[facility] [address] [place], [address] Hematocrit (Bld) [Volume fraction] 38.9 % Low 40-54 [facility] Comment on above: Performed By: #### L 500.4050, L100.0100, [id number] ####[facility] [address] [place], [address] Hemoglobin (Bld) [Mass/Vol] 13.0 g/dL Normal 13.0-16.5 [facility] Comment on above: Performed By: #### L 500.4050, L100.0100, [id number] ####[facility] [address] [place], [address] IG% 0.300 Normal 0.0-0.9 [facility] Comment on above: Result Comment: IG% - Immature Granulocytes (promyelocytes, myelocytes and metamyelocytes) > 1% indicates that a LEFT SHIFT is Present. Performed By: #### L 500.4050, L100.0100, [id number] ####[facility] [address] [place], [address] Lymphocytes/100 WBC (Bld) 28.8 % Normal 19-41 [facility] Comment on above: Performed By: #### L 500.4050, L100.0100, [id number] ####[facility] [address] [place], [address] MCH (RBC) [Entitic mass] 31.0 pg Normal 27.0-32.0 [facility] Comment on above: Performed By: #### L 500.4050, L100.0100, [id number] ####[facility] [address] [place], [address] MCHC (RBC) [Mass/Vol] 33.4 g/dL Normal 32-36 [facility] Comment on above: Performed By: #### L 500.4050, L100.0100, [id number] ####[facility] [address] [place], [address] MCV (RBC) [Entitic vol] 92.8 fL Normal 80-94 [facility] Comment on above: Performed By: #### L 500.4050, L100.0100, [id number] ####[facility] [address] [place], [address] Monocytes/100 WBC (Bld) 7.3 % Normal 0-10 [facility] Comment on above: Performed By: #### L 500.4050, L100.0100, [id number] ####[facility] [address] [place], [address] Neutrophils/100 WBC (Bld) 59.0 % Normal 47-70 [facility] Comment on above: Performed By: #### L 500.4050, L100.0100, [id number] ####[facility] [address] [place], [address] Nucleated RBC (Bld) [#/Vol] 0 10*3/uL Normal 0-5 [facility] Comment on above: Performed By: #### L 500.4050, L100.0100, [id number] ####[facility] [address] [place], [address] Platelet mean volume (Bld) [Entitic vol] 9.5 fL Normal 6.2-12.0 [facility] Comment on above: Performed By: #### L 500.4050, L100.0100, [id number] ####[facility] [address] [place], [address] Platelets (Bld) [#/Vol] 338 10*3/uL Normal 150-450 [facility] Comment on above: Performed By: #### L 500.4050, L100.0100, [id number] ####[facility] [address] [place], [address] RBC (Bld) [#/Vol] 4.19 10*6/uL Low 4.6-6.2 [facility] Comment on above: Performed By: #### L 500.4050, L100.0100, [id number] ####[facility] [address] [place], [address] RDW SD 43.4 fl Normal 35.1-43.9 [facility] Comment on above: Performed By: #### L 500.4050, L100.0100, L501.2450 ####[facility] [address] [place], [address] WBC (Bld) [#/Vol] 7.1 10*3/uL Normal 4.4-11.0 [facility] Comment on above: Performed By: #### L 500.4050, L100.0100, L501.2450 ####[facility] [address] [place], [address] Absolute Neut Normal 2.0-7.7 [facility] Comment on above: Result Comment: Canc elled via OM: Wrong Patient Performed By: #### L 501.4021 #### [facility] Laboratory [address] [place], [address] HCT Normal 40-54 [facility] Comment on above: Result Comment: Canc elled via OM: Wrong Patient Performed By: #### L 501.4021 #### [facility] Laboratory [address] [place], [address] HGB Normal 13.0-16.5 [facility] Comment on above: Result Comment: Canc elled via OM: Wrong Patient Performed By: #### L 501.4021 #### [facility] Laboratory [address] [place], [address] MCH Normal 27.0-32.0 [facility] Comment on above: Result Comment: Canc elled via OM: Wrong Patient Performed By: #### L 501.4021 #### [facility] Laboratory [address] [place], [address] MCHC Normal 32-36 [facility] Comment on above: Result Comment: Canc elled via OM: Wrong Patient Performed By: #### L 501.4021 #### [facility] Laboratory [address] [place], [address] MCV Normal 80-94 [facility] Comment on above: Result Comment: Canc elled via OM: Wrong Patient Performed By: #### L 501.4021 #### [facility] Laboratory [address] [place], [address] NEUT% Normal 47-70 [facility] Comment on above: Result Comment: Canc elled via OM: Wrong Patient Performed By: #### L 501.4021 #### [facility] Laboratory [address] [place], [address] PLT Normal 150-450 [facility] Comment on above: Result Comment: Canc elled via OM: Wrong Patient Performed By: #### L 501.4021 #### [facility] Laboratory [address] [place], [address] RBC Normal 4.6-6.2 [facility] Comment on above: Result Comment: Canc elled via OM: Wrong Patient Performed By: #### L 501.4021 #### [facility] Laboratory [address] [place], [address] RDW CV Normal 11.6-14.6 [facility] Comment on above: Result Comment: Canc elled via OM: Wrong Patient Performed By: #### L 501.4021 #### [facility] Laboratory [address] [place], [address] RDW SD Normal 35.1-43.9 [facility] Comment on above: Result Comment: Canc elled via OM: Wrong Patient Performed By: #### L 501.4021 #### [facility] Laboratory [address] [place], [address] WBC Normal 4.4-11.0 [facility] Comment on above: Result Comment: Canc elled via OM: Wrong Patient Performed By: #### L 501.4021 #### [facility] Laboratory [address] [place], [address] Carbon dioxide, total [Moles /volume] in Central venous bloodOrdered By: Sebastian Braswell on 03-29-2025 CO2 [Moles/Vol] 22.8 mmol/L 21.0-32.0 [facility] Chest PA and Lateralon 03-29 Chest PA and Lateral [facility] Imaging Services [address] [place], [place] [id number] Chest PA and Lateral MR#: [id number] Acct: [id number] Name: MICAHEL MCNEILL SANTOS Rep #: [id number] : 1975 M 49 From: Liset Stanton nd, MD PCP: Care Physician,No Primary Status: REG ER Study: Chest PA and Lateral Date of Exam: 03/29/25 Exam# [id number] Ordering Dr: Sebastian Braswell DO PROCEDURE: CHEST PA AND LATERAL 03/29/2025 REASON FOR EXAM: CHEST PAIN TECHNIQUE: CHEST PA AND LATERAL COMPARISON: Chest radiograph 12/2024. FINDINGS: Hardware: None. Heart: The heart size is normal. Mediastinum: The mediastinal contour is stable. Lungs: Stable findings of emphysema. No focal consolidation, pleural effusion or pneumothorax. Bones: The bones are unremarkable. RAD/Chest PA and Lateral IMPRESSION: COPD. NO ACUTE FINDINGS. Reading Location: [facility] CC: Dr. Sebastian Braswell DO; No Primary Care Physician Driver/Refuse Collector: Signed Normal [facility] Chloride assayOrdered By: Jesus Manuel Braswell on 03-29-2025 Chloride [Moles/Vol] 102 mmol/L 98-108 [facility] Comprehensive Metabolic Prof ilon 03-29-2025 Albumin [Mass/Vol] 4.4 g/dL Normal 3.5-5.0 [facility] Comment on above: Performed By: #### L 500.4050, L100.0100, L501.2450 ####[facility] [address] [place], [place], [id number] Albumin/Globulin [Mass ratio] 1.4 {ratio} Normal 0.9-2.4 [facility] Comment on above: Performed By: #### L 500.4050, L100.0100, L501.2450 ####[facility] [address] [place], [address] ALK PHOS 55 U/L Normal 40-129 [facility] Comment on above: Performed By: #### L 500.4050, L100.0100, L501.2450 ####[facility] [address] [place], [address] ALT [Catalytic activity/Vol] 86 U/L High <=46 [facility] Comment on above: Performed By: #### L 500.4050, L100.0100, L501.2450 ####[facility] [address] [place], [address] AST [Catalytic activity/Vol] 54 U/L High <=37 [facility] Comment on above: Performed By: #### L 500.4050, L100.0100, L501.2450 ####[facility] [address] [place], [address] Bilirubin [Mass/Vol] 0.46 mg/dL Normal 0.00-1.30 [facility] Comment on above: Performed By: #### L 500.4050, L100.0100, L501.2450 ####[facility] [address] [place], [address] BUN/CRE 23.3 RATIO High 10-20 [facility] Comment on above: Performed By: #### L 500.4050, L100.0100, L501.2450 ####[facility] [address] [place], [address] Calcium [Mass/Vol] 9.3 mg/dL Normal 7.6-11.0 [facility] Comment on above: Performed By: #### L 500.4050, L100.0100, L501.2450 ####[facility] [address] [place], [address] Chloride [Moles/Vol] 102 mmol/L Normal 98-108 [facility] Comment on above: Performed By: #### L 500.4050, L100.0100, L501.2450 ####[facility] [address] [place], [address] CO2 [Moles/Vol] 22.8 mmol/L Normal 21.0-32.0 [facility] Comment on above: Performed By: #### L 500.4050, L100.0100, L501.2450 ####[facility] [address] [place], [address] Creatinine [Mass/Vol] 1.01 mg/dL Normal 0.70-1.20 [facility] Comment on above: Performed By: #### L 500.4050, L100.0100, L501.2450 ####[facility] [address] [place], [address] ECRCL 79.84 ml/min Normal 50-250 [facility] Comment on above: Performed By: #### L 500.4050, L100.0100, L501.2450 ####[facility] [address] [place], [address] GAP 17 High 5-15 [facility] Comment on above: Performed By: #### L 500.4050, L100.0100, L501.2450 ####[facility] [address] [place], [address] GFR/1.73 sq M.predicted among non-blacks MDRD (S/P/Bld) [Vol rate/Area] 91 mL/min/{1.73_m2} Normal >60 [facility] Comment on above: Result Comment: mL/m in/1.73m2 CKD-EPI Creatinine Equation (2020) Performed By: #### L 500.4050, L100.0100, L501.2450 ####[facility] [address] [place], [address] Globulin (S) [Mass/Vol] 3.2 g/dL Normal 2.2-4.2 [facility] Comment on above: Performed By: #### L 500.4050, L100.0100, L501.2450 ####[facility] [address] [place], [address] Glucose [Mass/Vol] 244 mg/dL High 70-99 [facility] Comment on above: Performed By: #### L 500.4050, L100.0100, L501.2450 ####[facility] [address] [place], [address] Potassium [Moles/Vol] 3.5 mmol/L Normal 3.3-5.1 [facility] Comment on above: Performed By: #### L 500.4050, L100.0100, L501.2450 ####[facility] [address] [place], [address] Sodium [Moles/Vol] 141 mmol/L Normal 133-145 [facility] Comment on above: Performed By: #### L 500.4050, L100.0100, L501.2450 ####[facility] [address] [place], [address] T PROT 7.7 g/dL Normal 5.9-8.4 [facility] Comment on above: Performed By: #### L 500.4050, L100.0100, L501.2450 ####[facility] [address] [place], [address] Urea nitrogen [Mass/Vol] 24 mg/dL High 4-19 [facility] Comment on above: Performed By: #### L 500.4050, L100.0100, L501.2450 ####[facility] [address] [place], [address] ALB Normal 3.5-5.0 [facility] Comment on above: Result Comment: Canc elled via OM: Wrong Patient Performed By: #### L 501.4021 #### [facility] Laboratory [address] [place], [address] ALK PHOS Normal 40-129 [facility] Comment on above: Result Comment: Canc elled via OM: Wrong Patient Performed By: #### L 501.4021 #### [facility] Laboratory [address] [place], [address] ALT Normal <=46 [facility] Comment on above: Result Comment: Canc elled via OM: Wrong Patient Performed By: #### L 501.4021 #### [facility] Laboratory [address] [place], [address] AST Normal <=37 [facility] Comment on above: Result Comment: Canc elled via OM: Wrong Patient Performed By: #### L 501.4021 #### [facility] Laboratory [address] [place], [address] BUN Normal 4-19 [facility] Comment on above: Result Comment: Canc elled via OM: Wrong Patient Performed By: #### L 501.4021 #### [facility] Laboratory [address] [place], [address] BUN/CRE Normal 10-20 [facility] Comment on above: Result Comment: Canc elled via OM: Wrong Patient Performed By: #### L 501.4021 #### [facility] Laboratory [address] [place], [address] Calcium Normal 7.6-11.0 [facility] Comment on above: Result Comment: Canc elled via OM: Wrong Patient Performed By: #### L 501.4021 #### [facility] Laboratory [address] [place], [address] CL Normal 98-108 [facility] Comment on above: Result Comment: Canc elled via OM: Wrong Patient Performed By: #### L 501.4021 #### [facility] Laboratory [address] [place], [address] CO2 Normal 21.0-32.0 [facility] Comment on above: Result Comment: Canc elled via OM: Wrong Patient Performed By: #### L 501.4021 #### [facility] Laboratory [address] [place], [address] CREAT,SERUM Normal 0.70-1.20 [facility] Comment on above: Result Comment: Canc elled via OM: Wrong Patient Performed By: #### L 501.4021 #### [facility] Laboratory [address] [place], [address] eGFR Normal >60 [facility] Comment on above: Result Comment: Canc elled via OM: Wrong Patient Performed By: #### L 501.4021 #### [facility] Laboratory [address] [place], [address] GAP Normal 5-15 [facility] Comment on above: Result Comment: Canc elled via OM: Wrong Patient Performed By: #### L 501.4021 #### [facility] Laboratory [address] [place], [address] GLU Normal 70-99 [facility] Comment on above: Result Comment: Canc elled via OM: Wrong Patient Performed By: #### L 501.4021 #### [facility] Laboratory [address] [place], [address] Potassium Normal 3.3-5.1 [facility] Comment on above: Result Comment: Canc elled via OM: Wrong Patient Performed By: #### L 501.4021 #### [facility] Laboratory [address] [place], [address] T BILI Normal 0.00-1.30 [facility] Comment on above: Result Comment: Canc elled via OM: Wrong Patient Performed By: #### L 501.4021 #### [facility] Laboratory [address] [place], [address] T PROT Normal 5.9-8.4 [facility] Comment on above: Result Comment: Canc elled via OM: Wrong Patient Performed By: #### L 501.4021 #### [facility] Laboratory [address] [place], [address] Comprehensive Metabolic Profil Normal 133-145 [facility] Comment on above: Result Comment: Canc elled via OM: Wrong Patient Performed By: #### L 501.4021 #### [facility] Laboratory [address] [place], [address] Emergency Department Summary on 03-29-2025 Emergency Department Summary [facility] Medical Records Department [address] [place] [address] Emergency Department Summary 03/29/25 MR#: [id number] Acct: [id number] Name: MICHAEL MCNEILL SANTOS Rep #: [id number] : 1975 49 From: Sebastian Braswell DO PCP: Care Physician,No Primary Status:REG ER Location: ED HPI History of Present Illness Chief Complaint: Weakness Narrative Narrative: Patient is a 49-year-old male with past medical history of alcohol abuse, methamphetamine abuse, bipolar disorder anxiety, depression,, hypertension who presents to the emergency department with a chief complaint of being found by police in the community weak and not feeling well. Patient states that currently he just does not feel well overall. Patient denies any history of IV drug use states that he smokes meth. [facility] Medical History ETOH abuse Methamphetamine abuse Asthma Depression Anxiety Methamphetamine abuse Ankle fracture, left Bipolar disorder Depression Anxiety Past history of chewing tobacco use Asthma with COPD Anxiety and depression Inguinal hernia bilateral, non-recurrent Hypertension Stroke/cerebrovascular accident Alcohol abuse Bulla of lung GERD (gastroesophageal reflux disease) Home Medications ???Medication ???Instructions ???Recorded ???Last Taken ???Type NK 03/29/25 Unknown History Allergy/AdvReac Type Severity Reaction Status Date / Time No Known Allergies Allergy Verified 03/29/25 17:47 Family History Father Alcoholism CAD (coronary artery disease) Heart disease Hypertension Mother Alcoholism Seizures Surgical History History of ankle surgery Social History housing: apartment Smoking Status: Unknown if ever smoked Smokeless tobacco user: chewing tobacco how long ago did patient quit smoking: Notes no cig tob use, prior chew only but no current, ongoing cannabis use. alcohol intake: current alcohol intake frequency: a few times a week details: 5-6 beers daily, occasionally whiskey. substance use type: marijuana, amphetamines, opiates and methamphetamine ROS ROS ED ROS Narrative Constitutional: Denies fevers, chills, headaches, lightness, dizziness Eyes: Denies change in vision double vision blurry vision Cardiovascular: Complains of chest pain denies palpitations Respiratory: Denies coughing wheezing shortness of breath Abdomen: Denies abdominal pain nausea vomit diarrhea : Denies urinary symptoms Neurological: Denies numbness, wheeze, tingling Musculoskeletal: Denies back pain Skin: Any rashes or lesions EXAM Physical Exam Narrative Exam Narrative: General: Patient lying in bed rest comfortably did not appear to be acute distress Head: Atraumatic, normocephalic Eyes: PERRL bilaterally, EOMI bilaterally, no conjunctival injection noted Neck: Soft, supple, trachea midline Cardiovascular: Regular rate and rhythm no murmurs gallops rubs noted Respiratory: Clear to auscultation bilaterally no rales rhonchi or wheezes noted Abdomen: Soft, nondistended, nontender to palpation Extremities: +4/5 strength noted in the bilateral upper and lower extremities, radial pulses +2/4 in the bilateral extremities, no pedal edema exam Neurological: Patient following commands knew that he was at the hospital the year is 2024 he was able to tell me his name. NIH of 0 GCS 15 Skin: Warm, dry, intact no rashes or lesions noted Const Vital Signs: 03/29/25 17:47 03/29/25 17:57 03/29/25 19:00 Temperature 96.9 F L Temperature Source Temporal Pulse Rate 66 Respiratory Rate 18 Respiratory Effort Normal Non-Labored Respiratory Pattern Normal Blood Pressure 101/78 Blood Pressure Mean 85 Pulse Ox 100 100 Oxygen Delivery Method Room Air Room Air 03/29/25 19:17 03/29/25 19:30 03/29/25 21:00 Temperature 96.7 F L Temperature Source Axillary Pulse Rate 74 79 Respiratory Rate 16 16 Respiratory Effort Respiratory Pattern Blood Pressure 127/78 H 133/79 H Blood Pressure Mean 94 97 Pulse Ox 98 100 Oxygen Delivery Method Room Air Room Air Room Air MDM MDM MDM Narrative Medical decision making narrative: Patient is a 49-year-old male who presented to the emergency department the chief complaint of being found out in the community with generalized weakness and was brought in by police. On the differential diagnosis includes but limited to polysubstance abuse, electrolyte abnormality, ACS, pneumonia. Once workup is obtained and reviewed he will be reevaluated. Patient be given IV fluids for hydration. Patient CBC was reviewed showed no evid (more content not included)... Normal [facility] Eosinophil percentageOrdered By: Sebastian Braswell on 03-29-2025 Eosinophils/100 WBC (Bld) 3.8 % 0-5 [facility] Erythrocyte distribution wid th ratioOrdered By: Sebastian Braswell on 03-29-2025 Erythrocyte distribution width (RBC) [Ratio] 12.7 % 11.6-14.6 [facility] Erythrocyte distribution wid th standard deviationOrdered By: Sebastian Braswell on 03-29-2025 Erythrocyte distribution width (RBC) [Ratio] 43.4 fl 35.1-43.9 [facility] Glomerular filtration rate ( GFR) estimation/1.73 sq m using serum, plasma, or whole bOrdered By: Sebastian Braswell on 03-29-2025 GFR/1.73 sq M.predicted among non-blacks MDRD (S/P/Bld) [Vol rate/Area] 91 mL/min/{1.73_m2} >60 [facility] Comment on above: mL/min/1.73m2 CKD-EP I Creatinine Equation (2020) Hematocrit Auto (Bld) [Volum e fraction]Ordered By: Sebastian Braswell on 03-29-2025 Hematocrit (Bld) [Volume fraction] 38.9 % Low 40-54 [facility] Hemoglobin measurementOrdere d By: Sebastian Braswell on 03-29-2025 Hemoglobin (Bld) [Mass/Vol] 13.0 g/dL 13.0-16.5 [facility] Immature granulocytes/100 WB C Auto (Bld)Ordered By: Sebastian Braswell on 03-29-2025 Immature granulocytes/100 WBC (Bld) 0.300 % 0.0-0.9 [facility] Comment on above: IG% - Immature Granu locytes (promyelocytes, myelocytes and metamyelocytes) > 1% indicates that a LEFT SHIFT is Present. L499.0042on 03-29-2025 Trop T High Sen 7 ng/L Normal <=22 [facility] Comment on above: Performed By: #### L 9000.0800 #### [facility] Laboratory [address] [place], [address] L499.0043on 03-29-2025 Trop T High Sen Normal <=22 [facility] Comment on above: Result Comment: SANTI ENT DISCHARGED Performed By: #### L 9000.0800 #### [facility] Laboratory [address] [place], [address] L501.4021on 03-29-2025 Trop T High Sen < 6 Normal <=22 [facility] Comment on above: Performed By: #### L 501.4021 #### [facility] Laboratory [address] [place], [address] Laboratory - Chemistry and C hemistry - challengeOrdered By: Sebastian Braswell on 03-29-2025 AST [Catalytic activity/Vol] 54 U/L High <38 [facility] Lipaseon 03-29-2025 Lipase [Catalytic activity/Vol] 24 U/L Normal 13-75 [facility] Comment on above: Result Comment: Plea se note: LIPASE revised reference range effective 23. New Lipase methodology. Expected to produce lower values than the previous assay method. NEW Reference Range: 13 - 75 U/L Performed By: #### L 500.4050, L100.0100, L501.2450 ####[facility] [address] [place], [address] Lipase measurementOrdered By : Sebastian Braswell on 03-29-2025 Lipase [Catalytic activity/Vol] 24 U/L 13-75 [facility] Comment on above: Please note:LIPASE r evised reference range effective 23. New Lipase methodology. Expected to produce lower values than the previous assay method. NEW Reference Range: 13 - 75 U/L MCV (mean corpuscular volume ) determinationOrdered By: Sebastian Braswell on 03-29-2025 MCV (RBC) [Entitic vol] 92.8 fL 80-94 [facility] Mean corpuscular hemoglobin (MCH) determinationOrdered By: Sebastian Braswell on 03-29-2025 MCH (RBC) [Entitic mass] 31.0 pg 27.0-32.0 [facility] Mean corpuscular hemoglobin concentration (MCHC) determinationOrdered By: Sebastian Braswell on 03-29-2025 MCHC (RBC) [Mass/Vol] 33.4 g/dL 32-36 [facility] Mean platelet volume determi nationOrdered By: Sebastian Braswell on 03-29-2025 Platelet mean volume (Bld) [Entitic vol] 9.5 fL 6.2-12.0 [facility] Monocyte percentageOrdered B y: Sebastian Braswell on 03-29-2025 Monocytes/100 WBC (Bld) 7.3 % 0-10 [facility] Neutrophil percentageOrdered By: Sebastian Braswell on 03-29-2025 Neutrophils/100 WBC (Bld) 59.0 % 47-70 [facility] Nucleated red blood cell per centageOrdered By: Sebastian Braswell on 03-29-2025 Nucleated RBC/100 WBC (Bld) [Ratio] 0 % 0-5 [facility] Platelet countOrdered By: Jesus Manuel Braswell on 03-29-2025 Platelets (Bld) [#/Vol] 338 10*3/uL 150-450 [facility] Potassium measurement (mass/ volume)Ordered By: Sebastian Braswell on 03-29-2025 Potassium (Unsp spec) [Mass/Vol] 3.5 mmol/L 3.3-5.1 [facility] RBC Auto (Bld) [#/Vol]Ordere d By: Sebastian Braswell on 03-29-2025 RBC (Bld) [#/Vol] 4.19 10*6/uL Low 4.6-6.2 [facility] Serum creatinine measurement (mass/volume)Ordered By: Sebastian Braswell on 03-29-2025 Creatinine [Mass/Vol] 1.01 mg/dL 0.70-1.20 [facility] Serum globulin measurementOr dered By: Sebastian Braswell on 03-29-2025 Globulin (S) [Mass/Vol] 3.2 g/dL 2.2-4.2 [facility] Serum glucose measurement (m ass/volume)Ordered By: Sebastian Braswell on 03-29-2025 Glucose [Mass/Vol] 244 mg/dL High 70-99 [facility] Serum or plasma alanine love otransferase (ALT) measurementOrdered By: Sebastian Braswell on 03-29-2025 ALT [Catalytic activity/Vol] 86 U/L High <47 [facility] Serum or plasma albumin micah urement (mass/volume)Ordered By: Sebastian Braswell on 03-29-2025 Albumin [Mass/Vol] 4.4 g/dL 3.5-5.0 [facility] Serum or plasma albumin/glob ulin mass ratioOrdered By: Sebastian Braswell on 03-29-2025 Albumin/Globulin [Mass ratio] 1.4 {ratio} 0.9-2.4 [facility] Serum or plasma alkaline jd sphatase measurementOrdered By: Sebastian Braswell on 03-29-2025 ALP [Catalytic activity/Vol] 55 U/L 40-129 [facility] Serum or plasma calcium micah urement (mass/volume)Ordered By: Sebastian Braswell on 03-29-2025 Calcium [Mass/Vol] 9.3 mg/dL 7.6-11.0 [facility] Serum or plasma urea nitroge n measurement (mass/volume)Ordered By: Sebastian Braswell on 03-29-2025 Urea nitrogen [Mass/Vol] 24 mg/dL High 4-19 [facility] Sodium levelOrdered By: David Braswell on 03-29-2025 Sodium [Moles/Vol] 141 mmol/L 133-145 [facility] Total proteinOrdered By: Bhumika Braswell on 03-29-2025 Protein [Mass/Vol] 7.7 g/dL 5.9-8.4 [facility] Troponin T.cardiac [Mass/vol ume] in Serum or Plasma by High sensitivity methodOrdered By: Sebastian Braswell on 03-29-2025 Troponin T.cardiac High sensitivity method [Mass/Vol] 7 ng/L <22 [facility] Troponin T.cardiac High sensitivity method [Mass/Vol] < 6 ng/L <22 [facility] Urinalysis, Completeon 03-29 BACTERIA Normal None Seen [facility] Comment on above: Order Comment: CLEAN CATCH Result Comment: DEP FROM ED Performed By: #### L 400.0001 ####[facility] [address] [place], [address] BILIRUBIN URINE Normal Negative [facility] Comment on above: Order Comment: CLEAN CATCH Result Comment: DEP FROM ED Performed By: #### L 400.0001 ####[facility] [address] [place], [address] Clarity (U) Normal Clear [facility] Comment on above: Order Comment: CLEAN CATCH Result Comment: DEP FROM ED Performed By: #### L 400.0001 ####[facility] [address] [place], [address] Color (U) Normal Yellow [facility] Comment on above: Order Comment: CLEAN CATCH Result Comment: DEP FROM ED Performed By: #### L 400.0001 ####[facility] [address] [place], [address] EPI,SQUAMOUS Normal 0-5 [facility] Comment on above: Order Comment: CLEAN CATCH Result Comment: DEP FROM ED Performed By: #### L 400.0001 ####[facility] [address] [place], [address] GLUCOSE, UR Normal Normal [facility] Comment on above: Order Comment: CLEAN CATCH Result Comment: DEP FROM ED Performed By: #### L 400.0001 ####[facility] [address] [place], [address] KETONE UR Normal Negative [facility] Comment on above: Order Comment: CLEAN CATCH Result Comment: DEP FROM ED Performed By: #### L 400.0001 ####[facility] [address] [place], [address] LEUK ESTERASE Normal Negative [facility] Comment on above: Order Comment: CLEAN CATCH Result Comment: DEP FROM ED Performed By: #### L 400.0001 ####[facility] [address] [place], [address] Mucus Ql (Urine sed) Normal [facility] Comment on above: Order Comment: CLEAN CATCH Result Comment: DEP FROM ED Performed By: #### L 400.0001 ####[facility] [address] [place], [address] Nitrite Ql (U) Normal Negative [facility] Comment on above: Order Comment: CLEAN CATCH Result Comment: DEP FROM ED Performed By: #### L 400.0001 ####[facility] [address] [place], [address] OCCULT BLOOD-UR Normal Negative [facility] Comment on above: Order Comment: CLEAN CATCH Result Comment: DEP FROM ED Performed By: #### L 400.0001 ####[facility] [address] [place], [address] pH UR Normal 5.0 - 8.0 [facility] Comment on above: Order Comment: CLEAN CATCH Result Comment: DEP FROM ED Performed By: #### L 400.0001 ####[facility] [address] [place], [address] PROT DIPSTX Normal Negative [facility] Comment on above: Order Comment: CLEAN CATCH Result Comment: DEP FROM ED Performed By: #### L 400.0001 ####[facility] [address] [place], [address] RBC Normal 0-5 [facility] Comment on above: Order Comment: CLEAN CATCH Result Comment: DEP FROM ED Performed By: #### L 400.0001 ####[facility] [address] [place], [address] SP.GR. DIPSTX Normal 1.002-1.030 [facility] Comment on above: Order Comment: CLEAN CATCH Result Comment: DEP FROM ED Performed By: #### L 400.0001 ####[facility] [address] [place], [address] UR Preservative Normal [facility] Comment on above: Order Comment: CLEAN CATCH Result Comment: DEP FROM ED Performed By: #### L 400.0001 ####[facility] [address] [place], [address] UROBILI Normal Normal [facility] Comment on above: Order Comment: CLEAN CATCH Result Comment: DEP FROM ED Performed By: #### L 400.0001 ####[facility] [address] [place], [address] WBC Normal 0-5 [facility] Comment on above: Order Comment: CLEAN CATCH Result Comment: DEP FROM ED Performed By: #### L 400.0001 ####[facility] [address] [place], [address] White blood cell (WBC) count Ordered By: Sebastian Braswell on 03-29-2025 WBC (Bld) [#/Vol] 7.1 10*3/uL 4.4-11.0 [facility] CNCOon 02-03-2025 CNCO Letter Text Normal [facility] Chest PA and Lateralon 01-19 Chest PA and Lateral [facility] Imaging Services [address] [place] [address] Chest PA and Lateral MR#: [id number] Acct: [id number] Name: MICHAEL MCNEILL SANTOS Rep #: [id number] : 1975 M 49 From: Liset Stanton nd, MD PCP: Care Physician,No Primary Status: [facility] ER Study: Chest PA and Lateral Date of Exam: 01/19/25 Exam# [id number] Ordering Dr: Yee Jaffe PROCEDURE: CHEST PA [...] CHANGE SINCE THE PRIOR EXAM. Reading Location: [facility] CC: MALIA Moctezuma; No Primary Care Physician Driver/Refuse Collector: Signed Normal [facility] Emergency Department Summary on 01-19-2025 Emergency Department Summary [facility] Medical Records Department [address] [place] [address] Emergency Department Summary 01/19/25 MR#: [id number] Acct: [id number] Name: VINCENTMICHAEL GRAHAM Rep #: [id number] : 1975 49 From: Yee FINLEY PCP: Care Physician,No Primary Status:[facility] ER Location: ED HPI History of Present [...] of blood clots or recent surgery/travel/immobili zation. [facility] Medical History ETOH abuse Methamphetamine abuse Asthma [...] 1 - 2 puff inhalation Q4H PRN MN N 12/13/24 Unknown Rx aerosol inhaler (Ventolin HFA) Wheezing #1 ea prednisone 20 mg tablet 40 mg (2 x 20 mg) PO DAILY #10 tab s 12/13/24 Unknown Rx albuterol sulfate 90 mcg/actuation 1 - 2 puff inhalation Q4H PRN MN N 01/19/25 Unknown Rx aerosol inhaler (Ventolin [...] 15:32 Tempera (more content not included)... Normal [facility] Chest PA and Lateralon 12-13 Chest PA and Lateral [facility] Imaging Services [address] [place], [place] [id number] Chest PA and Lateral MR#: [id number] Acct: [id number] Name: VINCENTMICHAEL SANTOS Rep #: [id number] : 1975 M 49 From: Juan Daniel hampton MD PCP: Care Physician,No Primary Status: [facility] ER Study: Chest PA and Lateral Date of Exam: 12/13/24 Exam# [id number] Ordering Dr: Homar Nieves MD PROCEDURE: CHEST [...] midlung. Correlation with CT recommended. Reading Location: [place] [address] CC: Dr. Homar Nieves MD; No Primary Care Physician Driver/Refuse Collector: Signed Normal [facility] Emergency Department Summary on 12-13-2024 Emergency Department Summary [facility] Medical Records Department [address] [place] [address] Emergency Department Summary 12/13/24 MR#: [id number] Acct: [id number] Name: MICHAEL MCNEILL SANTOS Rep #: [id number] : 1975 49 From: Homar Nieves MD [...] 2 weeks of cough if not longer. [facility] Medical History ETOH abuse Methamphetamine abuse Asthma [...] 1 - 2 puff inhalation Q4H PRN MN N 12/13/24 Unknown Rx aerosol inhaler (Ventolin [...] anxiety and (more content not included)... Normal [facility] Emergency Department Summary on 12-04-2024 Emergency Department Summary [facility] Medical Records Department [address] [place] [address] Emergency Department Summary 12/04/24 MR#: [id number] Acct: [id number] Name: MICHAEL MCNEILL SANTOS Rep #: [id number] : 1975 49 From: Julius Matthews DO PCP: Care Physician,No Primary Status:DEP ER Location: ED HPI History of Present Illness Chief Complaint: Abscess PFSH PFSH Medical History ETOH abuse Methamphetamine abuse Asthma [...] Care Provider: Care Physician,No Primary Print Language: [place] Disposition Disposition: LEFT WITHOUT BEING SEEN Discharge Date/Time: 12/04/24 20:20 What to do if you have Problems For any increased pain, shortness of breath, bleeding, nausea or vomiting, chest pain, or any unexpected problems, contact your Primary Care Provider. Call [facility] ([phone]) or report to the closest Emergency Room. Call 911 if necessary. 12/04/24 7332 Cosigner Signature (if applicable): CC: No Primary Care Physician Signed Normal [facility] 12 Lead EKGon 2024 12 Lead EKG [facility] Cardiovascular Services [address] [place] [address] 12 Lead EKG 11/27/24 1428 MR#: [id number] Acct: [id number] Name: MICHAEL MCNEILL SANTOS Rep #: [id number] : 1975 49 From: Peña Martinez MD [...] PACS Normal ECG Confirmed by Peña Martinez ([id number]), dictionary editor PEBBLES FELICIANO ([id number]) on 11/28/2024 9:34:41 AM Referred By: Lacho Joy Confirmed By: Peña Martinez 11/28/24 0934 Date Peña Martinez MD CC: Dr. Lacho Joy DO; No Primary Care Physician Signed Normal [facility] Absolute neutrophil countOrd ered By: Lacho Joy on 2024 Neutrophils (Bld) [#/Vol] 7.9 10*3/uL High 2.0-7.7 [facility] BUN/creatinine ratioOrdered By: Lacho Joy on 2024 Urea nitrogen/Creatinine [Mass ratio] 32.6 mg/mg High 10-20 [facility] Basic Metabolic Profile (BMP )on 2024 Anion gap [Moles/Vol] 10 mmol/L Normal 5-15 [facility] Comment on above: Performed By: #### L 9000.0800 #### [facility] Laboratory [address] [place], [address] BUN/CRE 32.6 RATIO High 10-20 [facility] Comment on above: Performed By: #### L 9000.0800 #### [facility] Laboratory [address] [place], [address] Calcium [Mass/Vol] 9.1 mg/dL Normal 7.6-11.0 [facility] Comment on above: Performed By: #### L 9000.0800 #### [facility] Laboratory [address] [place], [address] Chloride [Moles/Vol] 102 mmol/L Normal 96-108 [facility] Comment on above: Performed By: #### L 9000.0800 #### [facility] Laboratory [address] [place], [address] CO2 [Moles/Vol] 26.2 mmol/L Normal 22.0-29.0 [facility] Comment on above: Performed By: #### L 9000.0800 #### [facility] Laboratory [address] [place], [address] Creatinine [Mass/Vol] 0.6 mg/dL Low 0.8-1.3 [facility] Comment on above: Performed By: #### L 9000.0800 #### [facility] Laboratory [address] [place], [address] ECRCL 119.44 ml/min Normal [facility] Comment on above: Performed By: #### L 9000.0800 #### [facility] Laboratory [address] [place], [address] GFR/1.73 sq M.predicted among non-blacks MDRD (S/P/Bld) [Vol rate/Area] 116 mL/min/{1.73_m2} Normal >60 [facility] Comment on above: Result Comment: mL/m in/1.73m2 CKD-EPI Creatinine Equation (2020) Performed By: #### L 9000.0800 #### [facility] Laboratory [address] [place], [address] Glucose [Mass/Vol] 99 mg/dL Normal 70-99 [facility] Comment on above: Performed By: #### L 9000.0800 #### [facility] Laboratory [address] [place], [address] Potassium [Moles/Vol] 4.0 mmol/L Normal 3.3-5.1 [facility] Comment on above: Performed By: #### L 9000.0800 #### [facility] Laboratory [address] [place], [address] Sodium [Moles/Vol] 138 mmol/L Normal 133-145 [facility] Comment on above: Performed By: #### L 9000.0800 #### [facility] Laboratory [address] [place], [address] Urea nitrogen [Mass/Vol] 21 mg/dL High 4-19 [facility] Comment on above: Performed By: #### L 9000.0800 #### [facility] Laboratory [address] [place], [address] Basophil percentageOrdered B y: Lacho Benita on 2024 Basophils/100 WBC (Bld) 0.5 % 0-1 [facility] CBC W/Diff, Automatedon - Absolute Lymph 1.53 X10 3/uL Normal 0.83-4.51 [facility] Comment on above: Performed By: #### L 9000.0800 #### [facility] Laboratory [address] [place], [address] Absolute Neut 7.9 X10 3/uL High 2.0-7.7 [facility] Comment on above: Performed By: #### L 9000.0800 #### [facility] Laboratory [address] [place], [address] Basophils/100 WBC (Bld) 0.5 % Normal 0-1 [facility] Comment on above: Performed By: #### L 9000.0800 #### [facility] Laboratory [address] [place], [address] Eosinophils/100 WBC (Bld) 3.9 % Normal 0-5 [facility] Comment on above: Performed By: #### L 9000.0800 #### [facility] Laboratory [address] [place], [address] Erythrocyte distribution width (RBC) [Ratio] 13.0 % Normal 11.6-14.6 [facility] Comment on above: Performed By: #### L 9000.0800 #### [facility] Laboratory [address] [place], [address] Hematocrit (Bld) [Volume fraction] 43.0 % Normal 40-54 [facility] Comment on above: Performed By: #### L 9000.0800 #### [facility] Laboratory [address] [place], [address] Hemoglobin (Bld) [Mass/Vol] 14.4 g/dL Normal 13.0-16.5 [facility] Comment on above: Performed By: #### L 9000.0800 #### [facility] Laboratory [address] [place], [address] IG% 0.500 Normal 0.0-0.9 [facility] Comment on above: Result Comment: IG% - Immature Granulocytes (promyelocytes, myelocytes and metamyelocytes) > 1% indicates that a LEFT SHIFT is Present. Performed By: #### L 9000.0800 #### [facility] Laboratory [address] [place], [address] Lymphocytes/100 WBC (Bld) 14.5 % Low 19-41 [facility] Comment on above: Performed By: #### L 9000.0800 #### [facility] Laboratory [address] [place], [address] MCH (RBC) [Entitic mass] 32.1 pg High 27.0-32.0 [facility] Comment on above: Performed By: #### L 9000.0800 #### [facility] Laboratory [address] [place], [address] MCHC (RBC) [Mass/Vol] 33.5 g/dL Normal 32-36 [facility] Comment on above: Performed By: #### L 9000.0800 #### [facility] Laboratory [address] [place], [address] MCV (RBC) [Entitic vol] 96.0 fL High 80-94 [facility] Comment on above: Performed By: #### L 9000.0800 #### [facility] Laboratory [address] [place], [address] Monocytes/100 WBC (Bld) 6.4 % Normal 0-10 [facility] Comment on above: Performed By: #### L 9000.0800 #### [facility] Laboratory [address] [place], [address] Neutrophils/100 WBC (Bld) 74.2 % High 47-70 [facility] Comment on above: Performed By: #### L 9000.0800 #### [facility] Laboratory [address] [place], [address] Nucleated RBC (Bld) [#/Vol] 0 10*3/uL Normal 0-5 [facility] Comment on above: Performed By: #### L 9000.0800 #### [facility] Laboratory [address] [place], [address] Platelet mean volume (Bld) [Entitic vol] 9.3 fL Normal 6.2-12.0 [facility] Comment on above: Performed By: #### L 9000.0800 #### [facility] Laboratory [address] [place], [address] Platelets (Bld) [#/Vol] 323 10*3/uL Normal 150-450 [facility] Comment on above: Performed By: #### L 9000.0800 #### [facility] Laboratory [address] [place], [address] RBC (Bld) [#/Vol] 4.48 10*6/uL Low 4.6-6.2 [facility] Comment on above: Performed By: #### L 9000.0800 #### [facility] Laboratory [address] [place], [address] RDW SD 45.7 fl High 35.1-43.9 [facility] Comment on above: Performed By: #### L 9000.0800 #### [facility] Laboratory [address] [place], [address] WBC (Bld) [#/Vol] 10.6 10*3/uL Normal 4.4-11.0 [facility] Comment on above: Performed By: #### L 9000.0800 #### [facility] Laboratory [address] [place], [address] Carbon dioxide measurementOr dered By: Lacho Joy on 2024 CO2 [Moles/Vol] 26.2 mmol/L 22.0-29.0 [facility] Chest PA and Lateralon 11-27 Chest PA and Lateral [facility] Imaging Services [address] [place] [address] Chest PA and Lateral MR#: [id number] Acct: [id number] Name: MICHAEL MCNEILL SANTOS Rep #: [id number] : 1975 M 49 From: Maylin adkins MD PCP: Care Physician,No Primary Status: [facility] ER Study: Chest PA and Lateral Date of Exam: 11/27/24 Exam# [id number] Ordering Dr: Lacho Joy DO PROCEDURE: CHEST [...] resolution to exclude a mass. Reading Location: [facility] CC: Dr. Lacho Joy DO; No Primary Care Physician Driver/Refuse Collector: Signed Normal [facility] Chloride measurementOrdered By: Lacho Joy on 2024 Chloride [Moles/Vol] 102 mmol/L 96-108 [facility] Creatinine [Moles/Vol]Ordere d By: Lacho Joy on 2024 Creatinine [Mass/Vol] 0.6 mg/dL Low 0.8-1.3 [facility] Emergency Department Summary on 2024 Emergency Department Summary [facility] Medical Records Department [address] [place] [address] Emergency Department Summary 11/27/24 MR#: [id number] Acct: [id number] Name: MICHAEL MCNEILL SANTOS Rep #: [id number] : 1975 49 From: Lacho Joy DO PCP: Care Physician,No Primary Status:DEP ER Location: ED HPI History of Present Illness Chief Complaint: Shortness of Breath Narrative Narrative: Chief complaint and HPI: Cough and flulike symptoms. 49-year-old male with past medical history of asthma presents for evaluation of cough and flulike symptoms. Patient states that he has had a co ug for the past week with flulike symptoms [...] intact Psych: Cooperative, appropriate mood and affect [facility] Medical History ETOH abuse Methamphetamine abuse Asthma [...] Delivery M (more content not included)... Normal [facility] Eosinophil percentageOrdered By: Lacho Joy on 2024 Eosinophils/100 WBC (Bld) 3.9 % 0-5 [facility] Erythrocyte distribution wid th ratioOrdered By: Lacho Joy on 2024 Erythrocyte distribution width (RBC) [Ratio] 13.0 % 11.6-14.6 [facility] Erythrocyte distribution wid th standard deviationOrdered By: Lacho Henderson on 2024 Erythrocyte distribution width (RBC) [Entitic vol] 45.7 fL High 35.1-43.9 [facility] Estimation of creatinine akbar aranceOrdered By: Lacho Joy on 2024 Estimated Creatinine Clearance Calc 119.44 ml/min [facility] GFR/1.73 sq M.predicted gertrude g non-blacks MDRD (S/P/Bld) [Vol rate/Area]Ordered By: Lacho Joy on 2024 Estimated GFR (MDRD) Non-Af Amer 116 >60 [facility] Comment on above: mL/min/1.73m2 CKD-EP I Creatinine Equation (2020) Hematocrit Auto (Bld) [Volum e fraction]Ordered By: Lacho Joy on 2024 Hematocrit (Bld) [Volume fraction] 43.0 % 40-54 [facility] Hemoglobin measurementOrdere d By: Lacho Joy on 2024 Hemoglobin (Bld) [Mass/Vol] 14.4 g/dL 13.0-16.5 [facility] Immature granulocytes/100 WB C Auto (Bld)Ordered By: Lacho Joy on 2024 Immature granulocytes/100 WBC (Bld) 0.500 % 0.0-0.9 [facility] Comment on above: IG% - Immature Granu locytes (promyelocytes, myelocytes and metamyelocytes) > 1% indicates that a LEFT SHIFT is Present. Influenza virus A and B and SARS-CoV-2 (COVID-19) and Respiratory syncytial virus RNAOrdered By: Lacho Joy on 2024 SARS-CoV-2 (COVID-19) RNA WES+probe Ql (Unsp spec) [facility] Lymphocytes Auto (Unsp spec) [#/Vol]Ordered By: Lacho Joy on 2024 Lymphocytes (Bld) [#/Vol] 1.53 10*3/uL 0.83-4.51 [facility] Lymphocytes/100 WBC Auto (Un sp spec)Ordered By: aLcho Joy on 2024 Lymphocytes/100 WBC (Bld) 14.5 % Low 19-41 [facility] M100.678on 2024 M100.678 SARS-CoV-2 (COVID 19 ) Negative INFLUENZA A Negative INFLUENZA B Negative RSV PCR Negative Normal [facility] Comment on above: Performed By: #### L 501.4021 #### [facility] Laboratory [address] [place], [address] MCV (mean corpuscular volume ) determinationOrdered By: Lacho Joy on 2024 MCV (RBC) [Entitic vol] 96.0 fL High 80-94 [facility] Mean corpuscular hemoglobin (MCH) determinationOrdered By: Lacho Joy on 2024 MCH (RBC) [Entitic mass] 32.1 pg High 27.0-32.0 [facility] Mean corpuscular hemoglobin concentration (MCHC) determinationOrdered By: Lacho Joy on 2024 MCHC (RBC) [Mass/Vol] 33.5 g/dL 32-36 [facility] Mean platelet volume determi nationOrdered By: Lacho Joy on 2024 Platelet mean volume (Bld) [Entitic vol] 9.3 fL 6.2-12.0 [facility] Monocyte percentageOrdered B y: Lacho Joy on 2024 Monocytes/100 WBC (Bld) 6.4 % 0-10 [facility] Neutrophil percentageOrdered By: Lacho Benita on 2024 Neutrophils/100 WBC (Bld) 74.2 % High 47-70 [facility] Nucleated red blood cell per centageOrdered By: Lacho Joy on 2024 Nucleated RBC/100 WBC (Bld) [Ratio] 0 % 0-5 [facility] Platelet countOrdered By: Wes Joy on 2024 Platelets (Bld) [#/Vol] 323 10*3/uL 150-450 [facility] RBC Auto (Bld) [#/Vol]Ordere d By: Lacho Joy on 2024 RBC (Bld) [#/Vol] 4.48 10*6/uL Low 4.6-6.2 [facility] Serum glucose measurement (m ass/volume)Ordered By: Lacho Joy on 2024 Glucose [Mass/Vol] 99 mg/dL 70-99 [facility] Serum or plasma anion gap de termination (moles/volume)Ordered By: Lacho Joy on 2024 Anion gap [Moles/Vol] 10 mmol/L 5-15 [facility] Serum or plasma calcium micah urement (mass/volume)Ordered By: Lacho Henderson on 2024 Calcium [Mass/Vol] 9.1 mg/dL 7.6-11.0 [facility] Serum or plasma potassium me asurementOrdered By: Lacho Joy on 2024 Potassium [Moles/Vol] 4.0 mmol/L 3.3-5.1 [facility] Serum or plasma sodium measu rement (moles/volume)Ordered By: Lacho Henderson on 2024 Sodium [Moles/Vol] 138 mmol/L 133-145 [facility] Serum or plasma urea nitroge n measurement (mass/volume)Ordered By: Lacho Joy on 2024 Urea nitrogen [Mass/Vol] 21 mg/dL High 4-19 [facility] White blood cell (WBC) count Ordered By: Lacho Joy on 2024 WBC (Bld) [#/Vol] 10.6 10*3/uL 4.4-11.0 [facility] Emergency Department Summary on 11-20-2024 Emergency Department Summary [facility] Medical Records Department [address] [place] [address] Emergency Department Summary 11/20/24 MR#: [id number] Acct: [id number] Name: MICHAEL MCNEILL SANTOS Rep #: [id number] : 1975 48 From: Graham Messina DO [...] shortness of breath. Patient denies any cough. [facility] Medical History ETOH abuse Methamphetamine abuse Asthma [...] MDM MDM Narrative Medical decision making narrative: Shelli (more content not included)... Normal [facility] Absolute neutrophil countOrd ered By: Trang Valencia on 11-12-2024 Neutrophils (Bld) [#/Vol] 7.1 10*3/uL 2.0-7.7 [facility] Albumin to globulin ratioOrd ered By: Trang Valencia on 11-12-2024 Albumin/Globulin [Mass ratio] 1.0 {ratio} Normal 0.9-2.4 [facility] Comment on above: Performed By: #### L [id number] #### [facility] Laboratory [address] [facility] [facility] [address] Automated blood erythrocyte countOrdered By: Trang Valencia on 11-12-2024 RBC (Bld) [#/Vol] 3.83 10*6/uL Low 4.6-6.2 [facility] Comment on above: Performed By: #### L [id number] #### [facility] Laboratory [address] [facility]. [facility] [address] Automated blood hematocrit ( percentage)Ordered By: Trang Valencia on 11-12-2024 Hematocrit (Bld) [Volume fraction] 35.6 % Low 40-54 [facility] Comment on above: Performed By: #### L [id number] #### [facility] Laboratory [address] [facility] [address] Automated lymphocyte count a s percentage of total leukocytesOrdered By: Trang Valencia on 11-12-2024 Lymphocytes/100 WBC (Bld) 3.5 % Low 19-41 [facility] Comment on above: Performed By: #### L [id number] #### [facility] Laboratory [address] [place], [address] Basophil percentageOrdered B y: Trang Valencia on 11-12-2024 Basophils/100 WBC (Bld) 0.1 % Normal 0-1 [facility] Comment on above: Performed By: #### L [id number] #### [facility] Laboratory [address] [facility] [place], [address] Bilirubin, totalOrdered By: Trang Valencia on 11-12-2024 Bilirubin [Mass/Vol] 0.30 mg/dL Normal 0.20-1.00 [facility] Comment on above: For patients on eltr ombopag therapy, use of [employer] TBIL is not recommended. Result Comment: For patients on eltrombopag therapy, use of [employer] TBIL is not recommended. Performed By: #### L [id number] #### [facility] Laboratory [address] [facility] [place], [address] Blood urea nitrogen (BUN)/cr eatinine ratioOrdered By: Trang Valencia on 11-12-2024 Urea nitrogen/Creatinine [Mass ratio] 28.2 mg/mg High 10-20 [facility] CBC W/Diff, Automatedon 11-02 Absolute Lymph 0.26 X10 3/uL Low 0.83-4.51 [facility] Comment on above: Performed By: #### L [id number] #### [facility] Laboratory [address] [place], [address] Absolute Neut 7.1 X10 3/uL Normal 2.0-7.7 [facility] Comment on above: Performed By: #### L [id number] #### [facility] Laboratory [address] [place], [address] IG% 0.400 Normal 0.0-0.9 [facility] Comment on above: Result Comment: IG% - Immature Granulocytes (promyelocytes, myelocytes and metamyelocytes) > 1% indicates that a LEFT SHIFT is Present. Performed By: #### L [id number] #### [facility] Laboratory [address] [place], [address] Nucleated RBC (Bld) [#/Vol] 0 10*3/uL Normal 0-5 [facility] Comment on above: Performed By: #### L [id number] #### [facility] Laboratory [address] [place], [address] RDW SD 45.3 fl High 35.1-43.9 [facility] Comment on above: Performed By: #### L [id number] #### [facility] Laboratory [address] [place], [address] Carbon dioxide measurementOr dered By: Trang Valencia on 11-12-2024 CO2 [Moles/Vol] 25.0 mmol/L Normal 21.0-32.0 [facility] Comment on above: Performed By: #### L [id number] #### [facility] Laboratory [address] [place], [address] Chloride measurementOrdered By: Trang Valencia on 11-12-2024 Chloride [Moles/Vol] 106 mmol/L Normal 98-107 [facility] Comment on above: Performed By: #### L [id number] #### [facility] Laboratory [address] [place], [address] Comprehensive Metabolic Prof ilon 11-12-2024 ALK P 41 U/L Low 45-117 [facility] Comment on above: Performed By: #### L [id number] #### [facility] Laboratory [address] [place], [address] BUN/CRE 28.2 RATIO High 10-20 [facility] Comment on above: Performed By: #### L [id number] #### [facility] Laboratory [address] [place], [address] CA,Total 8.8 mg/dL Normal 8.5-10.1 [facility] Comment on above: Performed By: #### L [id number] #### [facility] Laboratory [address] [place], [address] ECRCL 91.57 ml/min Normal [facility] Comment on above: Performed By: #### L [id number] #### [facility] Laboratory [address] [place], [address] EST GFR - AA 136 mL/min Normal >60 [facility] Comment on above: Result Comment: Afri can Azerbaijani GFR Calc Performed By: #### L [id number] #### [facility] Laboratory [address] [place], [address] GAP 8 Normal 5-15 [facility] Comment on above: Performed By: #### L [id number] #### [facility] Laboratory [address] [place], [address] GFR/1.73 sq M.predicted among non-blacks MDRD (S/P/Bld) [Vol rate/Area] 112 mL/min/{1.73_m2} Normal >60 [facility] Comment on above: Result Comment: Non- GFR Calc Performed By: #### L [id number] #### [facility] Laboratory [address] [place], [address] T PROT 6.4 g/dL Normal 6.4-8.2 [facility] Comment on above: Performed By: #### L [id number] #### [facility] Laboratory [address] [place], [address] Comprehensive Metabolic Prof ilOrdered By: Trang Valencia on 11-12-2024 AST [Catalytic activity/Vol] 18 U/L Normal 15-37 [facility] Comment on above: Performed By: #### L [id number] #### [facility] Laboratory [address] [place], [address] Eosinophil percentageOrdered By: Trang Valencia on 11-12-2024 Eosinophils/100 WBC (Bld) 0.0 % Normal 0-5 [facility] Comment on above: Performed By: #### L [id number] #### [facility] Laboratory [address] [place], [place], [address] Erythrocyte distribution wid th ratioOrdered By: Trang Valencia on 11-12-2024 Erythrocyte distribution width (RBC) [Ratio] 13.3 % Normal 11.6-14.6 [facility] Comment on above: Performed By: #### L [id number] #### [facility] Laboratory [address] [place], [place], [address] Erythrocyte distribution wid th standard deviationOrdered By: Trang Valencia on 11-12-2024 Erythrocyte distribution width (RBC) [Entitic vol] 45.3 fL High 35.1-43.9 [facility] Estimated glomerular filtrat ion rate (GFR) AmericanOrdered By: Trang Valencia on 11-12-2024 Estimated GFR (MDRD) Amer 136 mL/min >60 [facility] Comment on above: GFR Calc Estimation of creatinine akbar aranceOrdered By: Trang Valencia on 11-12-2024 Estimated Creatinine Clearance Calc 91.57 ml/min [facility] Glomerular filtration rate ( GFR) estimationOrdered By: Trang Valencia on 11-12-2024 Estimated GFR (MDRD) Non-Af Amer 112 mL/min >60 [facility] Comment on above: Non- GFR Calc Glucose measurementOrdered B y: Trang Valencia on 11-12-2024 Glucose [Mass/Vol] 197 mg/dL High 74-106 [facility] Comment on above: Fasting Glucose resu lt greater than or equal to 126 mg/dL suggests DIABETES MELLITUS per A.D.A. criteria. Result Comment: Fast ing Glucose result greater than or equal to 126 mg/dL suggests DIABETES MELLITUS per A.D.A. criteria. Performed By: #### L [id number] #### [facility] Laboratory [address] [place], [place], [address] Hemoglobin measurementOrdere d By: Trang Valencia on 11-12-2024 Hemoglobin (Bld) [Mass/Vol] 12.2 g/dL Low 13.0-16.5 [facility] Comment on above: Performed By: #### L [id number] #### [facility] Laboratory [address] [place], [address] Immature granulocytes/100 WB C Auto (Bld)Ordered By: Trang Valencia on 11-12-2024 Immature granulocytes/100 WBC (Bld) 0.400 % 0.0-0.9 [facility] Comment on above: IG% - Immature Granu locytes (promyelocytes, myelocytes and metamyelocytes) > 1% indicates that a LEFT SHIFT is Present. Lymphocytes Auto (Unsp spec) [#/Vol]Ordered By: Trang Valencia on 11-12-2024 Lymphocytes (Bld) [#/Vol] 0.26 10*3/uL Low 0.83-4.51 [facility] MCV (mean corpuscular volume ) determinationOrdered By: Trang Valencia on 11-12-2024 MCV (RBC) [Entitic vol] 93.0 fL Normal 80-94 [facility] Comment on above: Performed By: #### L [id number] #### [facility] Laboratory [address] [place], [address] Magnesium measurementOrdered By: Trang Valencia on 11-12-2024 Magnesium [Mass/Vol] 2.1 mg/dL Normal 1.6-2.6 [facility] Comment on above: Performed By: #### L [id number] #### [facility] Laboratory [address] [place], [address] Mean corpuscular hemoglobin (MCH) determinationOrdered By: Trang Valencia on 11-12-2024 MCH (RBC) [Entitic mass] 31.9 pg Normal 27.0-32.0 [facility] Comment on above: Performed By: #### L [id number] #### [facility] Laboratory [address] [place], [address] Mean corpuscular hemoglobin concentration (MCHC) determinationOrdered By: Trang Valencia on 11-12-2024 MCHC (RBC) [Mass/Vol] 34.3 g/dL Normal 32-36 [facility] Comment on above: Performed By: #### L [id number] #### [facility] Laboratory [address] [place], [address] Mean platelet volume determi nationOrdered By: Trang Valencia on 11-12-2024 Platelet mean volume (Bld) [Entitic vol] 9.3 fL Normal 6.2-12.0 [facility] Comment on above: Performed By: #### L [id number] #### [facility] Laboratory [address] [place], [address] Monocyte percentageOrdered B y: Trang Valencia on 11-12-2024 Monocytes/100 WBC (Bld) 1.5 % Normal 0-10 [facility] Comment on above: Performed By: #### L [id number] #### [facility] Laboratory [address] [place], [address] Neutrophil percentageOrdered By: Trang Valencia on 11-12-2024 Neutrophils/100 WBC (Bld) 94.5 % High 47-70 [facility] Comment on above: Performed By: #### L [id number] #### [facility] Laboratory [address] [place], [address] Nucleated red blood cell per centageOrdered By: Trang Valencia on 11-12-2024 Nucleated RBC/100 WBC (Bld) [Ratio] 0 % 0-5 [facility] Phosphoruson 11-12-2024 Phosphate [Mass/Vol] 2.9 mg/dL Normal 2.5-4.9 [facility] Comment on above: Performed By: #### L [id number] #### [facility] Laboratory [address] [place], [address] Phosphorus measurementOrdere d By: Trang Valencia on 11-12-2024 Phosphorus Level 2.9 mg/dL 2.5-4.9 [facility] Platelet countOrdered By: Denise Valencia on 11-12-2024 Platelets (Bld) [#/Vol] 267 10*3/uL Normal 150-450 [facility] Comment on above: Performed By: #### L [id number] #### [facility] Laboratory [address] [place], [address] Potassium measurementOrdered By: Trang Valencia on 11-12-2024 Potassium [Moles/Vol] 3.9 mmol/L Normal 3.5-5.1 [facility] Comment on above: Performed By: #### L [id number] #### [facility] Laboratory [address] [place], [address] Serum anion gap measurementO rdered By: Trang Valencia on 11-12-2024 Anion gap [Moles/Vol] 8 mmol/L 5-15 [facility] Serum globulin measurementOr dered By: Trang Valencia on 11-12-2024 Globulin (S) [Mass/Vol] 3.2 g/dL Normal 2.2-4.2 [facility] Comment on above: Performed By: #### L [id number] #### [facility] Laboratory [address] [place], [address] Serum or plasma alanine love otransferase (ALT) measurementOrdered By: Trang Valencia on 11-12-2024 ALT [Catalytic activity/Vol] 30 U/L Normal 16-61 [facility] Comment on above: Performed By: #### L [id number] #### [facility] Laboratory [address] [place], [address] Serum or plasma albumin micah urement (mass/volume)Ordered By: Trang Valencia on 11-12-2024 Albumin [Mass/Vol] 3.2 g/dL Normal 3.2-5.0 [facility] Comment on above: Performed By: #### L [id number] #### [facility] Laboratory [address] [place], [address] Serum or plasma alkaline jd sphatase measurementOrdered By: Trang Valencia on 11-12-2024 ALP [Catalytic activity/Vol] 41 U/L Low 45-117 [facility] Serum or plasma calcium micah urement (mass/volume)Ordered By: Trang Valencia on 11-12-2024 Calcium [Mass/Vol] 8.8 mg/dL 8.5-10.1 [facility] Serum or plasma creatinine m easurement (mass/volume)Ordered By: Trang Valencia on 11-12-2024 Creatinine [Mass/Vol] 0.78 mg/dL Normal 0.70-1.30 [facility] Comment on above: The validity of the calculated GFR & GFRAA in patients over 70 years has not been determined. Clinical correlation is essential. Result Comment: The validity of the calculated GFR GFRAA in patients over 70 years has not been determined. Clinical correlation is essential. Performed By: #### L [id number] #### [facility] Laboratory [address] [place], [address] Serum or plasma urea nitroge n measurement (mass/volume)Ordered By: Trang Valencia on 11-12-2024 Urea nitrogen [Mass/Vol] 22 mg/dL High 7-18 [facility] Comment on above: Performed By: #### L [id number] #### [facility] Laboratory [address] [place], [address] Sodium levelOrdered By: Ema Valencia on 11-12-2024 Sodium [Moles/Vol] 139 mmol/L Normal 136-145 [facility] Comment on above: Performed By: #### L [id number] #### [facility] Laboratory [address] [place], [address] Total proteinOrdered By: Dyana Valencia on 11-12-2024 Protein [Mass/Vol] 6.4 g/dL 6.4-8.2 [facility] White blood cell (WBC) count Ordered By: Trang Valencia on 11-12-2024 WBC (Bld) [#/Vol] 7.5 10*3/uL Normal 4.4-11.0 [facility] Comment on above: Performed By: #### L [id number] #### [facility] Laboratory [address] [place], [address] 12 Lead EKGon 11-11-2024 12 Lead EKG [facility] Cardi[facility] Services [address] [place] [address] 12 Lead EKG 11/11/24 1622 MR#: [id number] Acct: [id number] Name: MICHAEL MCNEILL SANTOS Rep #: [id number] : 1975 48 From: Peña Martinez MD [...] enlargement Borderline ECG Confirmed by Peña Martinez ([id number]), dictionary editor OMERO ROBLES ([id number]) on 11/12/2024 10:03:13 AM Referred By: Confirmed By: Peña Martinez 11/12/24 1003 Date Peña Martinez MD CC: Dr. Graham Tolbert DO; Dr. Remberto Bernal DO; No Primary Care Physician Signed Normal [facility] Arterial patency Wrist arter y --pre arterial punctureOrdered By: Remberto Bernal on 11-11-2024 Connie Test Positive [facility] Base excess Calc (BldV) [Mol es/Vol]Ordered By: Remberto Bernal on 11-11-2024 Blood Gas Base Excess 7 mmol/L High -2-2 [facility] Basic Metabolic Profile (BMP )on 11-11-2024 BUN/CRE 18.1 RATIO Normal 07-21 [facility] Comment on above: Performed By: #### L [id number] #### [facility] Laboratory [address] [place], [address] CA,Total 9.2 mg/dL Normal 8.5-10.1 [facility] Comment on above: Performed By: #### L [id number] #### [facility] Laboratory [address] [place], [address] Chloride [Moles/Vol] 102 mmol/L Normal 98-107 [facility] Comment on above: Performed By: #### L [id number] #### [facility] Laboratory [address] [place], [address] CO2 [Moles/Vol] 32.0 mmol/L Normal 21.0-32.0 [facility] Comment on above: Performed By: #### L [id number] #### [facility] Laboratory [address] [place], [address] Creatinine [Mass/Vol] 1.05 mg/dL Normal 0.70-1.30 [facility] Comment on above: Result Comment: The validity of the calculated GFR GFRAA in patients over 70 years has not been determined. Clinical correlation is essential. Performed By: #### L [id number] #### [facility] Laboratory [address] [place], [address] ECRCL 70.10 ml/min Normal [facility] Comment on above: Performed By: #### L [id number] #### [facility] Laboratory [address] [place], [address] EST GFR TNP Normal >60 [facility] Comment on above: Result Comment: Non- GFR Calc Performed By: #### L [id number] #### [facility] Laboratory [address] [place], [address] EST GFR - AA TNP Normal >60 [facility] Comment on above: Result Comment: Afri can Azerbaijani GFR Calc Performed By: #### L [id number] #### [facility] Laboratory [address] [place], [address] GAP 9 Normal 5-15 [facility] Comment on above: Performed By: #### L [id number] #### [facility] Laboratory [address] [place], [address] Glucose [Mass/Vol] 202 mg/dL High 74-106 [facility] Comment on above: Result Comment: Gluc ose result greater than or equal to 200 mg/dL suggests DIABETES MELLITUS per A.D.A. criteria. Performed By: #### L [id number] #### [facility] Laboratory [address] [place], [address] Potassium [Moles/Vol] 4.0 mmol/L Normal 3.5-5.1 [facility] Comment on above: Performed By: #### L [id number] #### [facility] Laboratory [address] [place], [address] Sodium [Moles/Vol] 142 mmol/L Normal 136-145 [facility] Comment on above: Performed By: #### L [id number] #### [facility] Laboratory [address] [place], [address] Urea nitrogen [Mass/Vol] 19 mg/dL High 7-18 [facility] Comment on above: Performed By: #### L [id number] #### [facility] Laboratory [address] [place], [address] Blood Gases by [facility] 025 CONNIE TEST Positive Normal [facility] Comment on above: Performed By: #### L 9000.0800 #### [facility] Laboratory [address] [place], [address] Base excess Calc (Bld) [Moles/Vol] 7 mmol/L High -2 to +2 [facility] Comment on above: Performed By: #### L 8999.0800 #### [facility] Laboratory [address] [place], [address] Blood Gas Type ART Normal [facility] Comment on above: Performed By: #### L 8999.08 #### [facility] Laboratory [address] [place], [address] CO2 [Moles/Vol] 35 mmol/L Normal [facility] Comment on above: Performed By: #### L 8999.08 #### [facility] Laboratory [address] [place], [address] FI02 35.0 Normal [facility] Comment on above: Performed By: #### L 8999.08 #### [facility] Laboratory [address] [place], [address] HCO3 (Bld) [Moles/Vol] 32.9 mmol/L High 22-26 [facility] Comment on above: Performed By: #### L 8999.0800 #### [facility] Laboratory [address] [place], [address] Mode Not entered Normal [facility] Comment on above: Performed By: #### L 8999.08 #### [facility] Laboratory [address] [place], [address] O2 Delivery Dev BiPAP Normal [facility] Comment on above: Performed By: #### L 8999.08 #### [facility] Laboratory [address] [place], [address] pCO2 65.3 mmHg High 35-45 [facility] Comment on above: Performed By: #### L 8999.08 #### [facility] Laboratory [address] [place], [address] PEEP 6 Normal [facility] Comment on above: Performed By: #### L 8999.08 #### [facility] Laboratory [address] [place], [address] pH (Bld) 7.31 [pH] Low 7.35-7.45 [facility] [facility] Comment on above: Performed By: #### L 9000.0800 #### [facility] [address] [place], [address] PO2 183 mmHG High 75-100 [facility] Comment on above: Performed By: #### L 9000.0800 #### [facility] [address] [place], [address] SITE L Radial Normal [facility] Comment on above: Performed By: #### L 9000.0800 #### [facility] [address] [place], [address] SO2 99 Normal 95-99 [facility] Comment on above: Performed By: #### L 9000.0800 #### [facility] [address] [place], [address] Blood bicarbonate measuremen tOrdered By: Remberto Bernal on 11-11-2024 Blood Gas Bicarbonate Actual 32.9 mmol/L High 22-26 [facility] CBC W/Diff, Automatedon 11-02 Absolute Lymph 2.64 X10 3/uL Normal 0.83-4.51 [facility] Comment on above: Performed By: #### L 501.9985 #### [facility] [address] [place], [address] Absolute Neut 7.7 X10 3/uL Normal 2.0-7.7 [facility] Comment on above: Performed By: #### L 501.9985 #### [facility] [address] [place], [address] Basophils/100 WBC (Bld) 0.8 % Normal 0-1 [facility] Comment on above: Performed By: #### L 501.9985 #### [facility] [address] [place], [address] Eosinophils/100 WBC (Bld) 2.9 % Normal 0-5 [facility] Comment on above: Performed By: #### L 501.9985 #### [facility] [address] [place], [address] Erythrocyte distribution width (RBC) [Ratio] 13.2 % Normal 11.6-14.6 [facility] Comment on above: Performed By: #### L 501.9985 #### [facility] [address] [place], [address] Hematocrit (Bld) [Volume fraction] 44.1 % Normal 40-54 [facility] Comment on above: Performed By: #### L 501.9985 #### [facility] [address] [place], [address] Hemoglobin (Bld) [Mass/Vol] 14.5 g/dL Normal 13.0-16.5 [facility] Comment on above: Performed By: #### L 501.9985 #### [facility] [address] [place], [address] IG% 0.300 Normal 0.0-0.9 [facility] Comment on above: Result Comment: IG% - Immature Granulocytes (promyelocytes, myelocytes and metamyelocytes) > 1% indicates that a LEFT SHIFT is Present. Performed By: #### L 501.9985 #### [facility] [address] [place], [address] Lymphocytes/100 WBC (Bld) 23.1 % Normal 19-41 [facility] Comment on above: Performed By: #### L 501.9985 #### [facility] [address] [place], [address] MCH (RBC) [Entitic mass] 31.5 pg Normal 27.0-32.0 [facility] Comment on above: Performed By: #### L 501.9985 #### [facility] [address] [place], [address] MCHC (RBC) [Mass/Vol] 32.9 g/dL Normal 32-36 [facility] Comment on above: Performed By: #### L 501.9985 #### [facility] [address] [place], [address] MCV (RBC) [Entitic vol] 95.7 fL High 80-94 [facility] Comment on above: Performed By: #### L 501.85 #### [facility] [address] [place], [address] Monocytes/100 WBC (Bld) 5.6 % Normal 0-10 [facility] Comment on above: Performed By: #### L 501.9985 #### [facility] [address] [place], [address] Neutrophils/100 WBC (Bld) 67.3 % Normal 47-70 [facility] Comment on above: Performed By: #### L 501.9985 #### [facility] [address] [place], [address] Nucleated RBC (Bld) [#/Vol] 0 10*3/uL Normal 0-5 [facility] Comment on above: Performed By: #### L 501.9985 #### [facility] [address] [place], [address] Platelet mean volume (Bld) [Entitic vol] 9.2 fL Normal 6.2-12.0 [facility] Comment on above: Performed By: #### L 501.9985 #### [facility] [address] [place], [address] Platelets (Bld) [#/Vol] 400 10*3/uL Normal 150-450 [facility] Comment on above: Performed By: #### L 501.9985 #### [facility] [address] [place], [address] RBC (Bld) [#/Vol] 4.61 10*6/uL Normal 4.6-6.2 [facility] Comment on above: Performed By: #### L 501.9985 #### [facility] [address] [place], [address] RDW SD 46.2 fl High 35.1-43.9 [facility] Comment on above: Performed By: #### L 501.9985 #### [facility] [address] [place], [address] WBC (Bld) [#/Vol] 11.4 10*3/uL High 4.4-11.0 [facility] Comment on above: Performed By: #### L 501.9985 #### [facility] [address] [place], [address] Chest 1 View (Portable)on Chest 1 View (Portable) [facility] Imaging Services [address] [place] [address] Chest 1 View (Portable) MR#: [id number] Acct: [id number] Name: MICHAEL MCNEILL SANTOS Rep #: [id number] : 1975 M 48 From: Maylin adkins MD PCP: Care Physician,No Primary Status: DIS IN Study: Chest 1 View (Portable) Date of Exam: 11/11/24 Exam# [id number] Ordering Dr: Remberto Bernal DO PROCEDURE: CHEST [...] infiltrate. Right apical pleural-parenchymal disease. Reading Location: [id number] CC: Dr. Remberto Bernal, DO; No Primary Care Physician Driver/Refuse Collector: Signed Normal [facility] Determination of fraction of inspired oxygenOrdered By: Remberto Bernal on 11-11-2024 Blood Gas Oxygen Percent 35.0 [facility] Emergency Department Summary on 11-11-2024 Emergency Department Summary [facility] Medical Records Department [address] [place] [address] Emergency Department Summary 11/11/24 MR#: [id number] Acct: [id number] Name: MICHAEL MCNEILL SANTOS Rep #: [id number] : 1975 48 From: Remberto Brenal DO PCP: Care Physician,No Primary Status:DIS IN Location: ICU [id number] HPI History of Present Illness Chief Complaint: [...] throughout GI (more content not included)... Normal [facility] H AND P Exam - Hospitaliston 11-11-2024 H&P Exam - Hospitalist [facility] Medical Records Department [address] [place] [address] H P Exam - Hospitalist 11/11/24 1715 MR#: [id number] Acct: [id number] Name: MICHAEL MCNEILL SANTOS Rep #: [id number] : 1975 48 From: Trang Valencia DO PCP: Care Physician,No Primary Status:DIS IN Location: ICU [id number] HPI - General General Date of Admission: 11/11/24 Date of Service: 11/11/24 Chief Complaint: Shortness of breath HPI Narrative Patient has been admitted here under a different medical record number please see for further information MICHAEL MCNEILL, is a 48 M who presented to the emergency department at [facility] on 11/11/2024 with a chief complaint of [...] was treated with aerosols, BiPAP, and steroids. [facility] Medical History ETOH abuse Methamphetamine abuse Asthma [...] Inspired Oxygen (more content not included)... Normal [facility] Hemoglobin A1con 11-11-2024 HbA1c (Bld) [Mass fraction] 6.0 % High 3.8-5.6 [facility] Comment on above: Result Comment: Norm al < 5.7 % Prediabetic 5.7 - 6.4 % Diabetic >or= 6.5 % Please note range changes. Performed By: #### L 501.9985 #### [facility] [address] [place], [place], [id number] Hemoglobin A1c percentageOrd ered By: Trang Valencia on 11-11-2024 HbA1c (Bld) [Mass fraction] 6.0 % High 3.8-5.6 [facility] Comment on above: Normal < 5.7 % Predi abetic 5.7 - 6.4 % Diabetic >or= 6.5 % Please note range changes. Influenza virus A and B and SARS-CoV-2 (COVID-19) and Respiratory syncytial virus RNAOrdered By: Remberto Bernal on 11-11-2024 SARS-CoV-2 (COVID-19) RNA WES+probe Ql (Unsp spec) [facility] M100.678on 11-11-2024 M100.678 Pending SARS-CoV-2 (COVID 19) Negative INFLUENZA A Negative INFLUENZA B Negative RSV PCR Negative Normal [facility] Comment on above: Performed By: #### L 501.4021 #### [facility] [address] [place], [address] No Panel InformationOrdered By: Remberto Bernal on 11-11-2024 Bedside Blood Gas PEEP 6 [facility] Blood Gas Sample Site L Radial [facility] Blood Gas Specimen Type ART [facility] Blood Gas Vent Mode Not entered [facility] Oxygen Delivery Device BiPAP [facility] Oxygen saturation measuremen tOrdered By: Remberto Bernal on 11-11-2024 Blood Gas Oxygen Saturation 99 % 95-99 [facility] Partial pressure of carbon d ioxide measurementOrdered By: Remberto Bernal on 11-11-2024 Arterial Blood Partial Pressure CO2 65.3 mmHg High 35-45 [facility] Partial pressure of oxygen m easurementOrdered By: Remberto Bernal on 11-11-2024 Arterial Blood Partial Pressure O2 183 mmHG High 75-100 [facility] RESPIRATORY PANEL MOLECULARo n 11-11-2024 RP PANEL ADENOVIRUS Not Detected INFLUENZA A Not Detected INFLUENZA A (SUBTYPE H1) Not Detected INFLUENZA A (SUBTYPE H3) Not Detected INFLUENZA B Not Detected HUMAN METAPHNEUMO Not Detected PARAINFLUENZA 1 Not Detected PARAINFLUENZA 2 Not Detected PARAINFLUENZA 3 Not Detected PARAINFLUENZA 4 Not Detected RHINOVIRUS Not Detected RSV A Not Detected RSV B Not Detected Normal [facility] Comment on above: Performed By: #### L 501.4021 #### [facility] [address] [place], [place], [id number] Respiratory pathogens DNA an d RNA panel WES+probe (Resp)Ordered By: Trang Valencia on 11-11-2024 Respiratory Panel (PCR) [facility] Total carbon dioxide measure mentOrdered By: Remberto Bernal on 11-11-2024 Blood Gas Total CO2 35 mmol/L [facility] pH (Unsp spec)Ordered By: Holli Bernal on 11-11-2024 Blood Gas pH 7.31 Low 7.35-7.45 [facility] Respiratory Cultureon 2024 RESPC Mixed normal respiratory [place]. No Streptococcus pneumoniae, beta-hemolytic Streptococcus or Staphylococcus aureus isolated. Normal [facility] Comment on above: Performed By: #### M 300.4600, M100.2000, M300.4500, M100.2400 ####[facility] [address] [place], [address] Absolute neutrophil countOrd ered By: Graham Tolbert on 10-23-2024 Neutrophils (Bld) [#/Vol] 11.4 10*3/uL High 2.0-7.7 [facility] Basic Metabolic Profile (BMP )on 10-23-2024 BUN/CRE 29.6 RATIO High 10-20 [facility] Comment on above: Performed By: #### L 501.9985 #### [facility] [address] [place], [address] CA,Total 9.3 mg/dL Normal 8.5-10.1 [facility] Comment on above: Performed By: #### L 501.9985 #### [facility] [address] [place], [address] Chloride [Moles/Vol] 105 mmol/L Normal 98-107 [facility] Comment on above: Performed By: #### L 501.9985 #### [facility] [address] [place], [address] CO2 [Moles/Vol] 28.0 mmol/L Normal 21.0-32.0 [facility] Comment on above: Performed By: #### L 501.9985 #### [facility] [address] [place], [address] Creatinine [Mass/Vol] 0.78 mg/dL Normal 0.70-1.30 [facility] Comment on above: Result Comment: The validity of the calculated GFR GFRAA in patients over 70 years has not been determined. Clinical correlation is essential. Performed By: #### L 501.9985 #### [facility] [address] [place], [address] ECRCL 90.10 ml/min Normal [facility] Comment on above: Performed By: #### L 501.9985 #### [facility] [address] [place], [address] EST GFR - AA 137 mL/min Normal >60 [facility] Comment on above: Result Comment: Afri can [place] GFR Calc Performed By: #### L 501.9985 #### [facility] [address] [place], [address] GAP 5 Normal 5-15 [facility] Comment on above: Performed By: #### L 501.9985 #### [facility] [address] [place], [address] GFR/1.73 sq M.predicted among non-blacks MDRD (S/P/Bld) [Vol rate/Area] 113 mL/min/{1.73_m2} Normal >60 [facility] Comment on above: Result Comment: Non- GFR Calc Performed By: #### L 501.9985 #### [facility] [address] [place], [address] Glucose [Mass/Vol] 143 mg/dL High 74-106 [facility] Comment on above: Result Comment: Fast ing Glucose result greater than or equal to 126 mg/dL suggests DIABETES MELLITUS per A.D.A. criteria. Performed By: #### L 501.9985 #### [facility] [address] [place], [address] Potassium [Moles/Vol] 4.4 mmol/L Normal 3.5-5.1 [facility] Comment on above: Performed By: #### L 501.9985 #### [facility] [address] [place], [address] Sodium [Moles/Vol] 138 mmol/L Normal 136-145 [facility] Comment on above: Performed By: #### L 501.9985 #### [facility] [address] [place], [address] Urea nitrogen [Mass/Vol] 23 mg/dL High 7-18 [facility] Comment on above: Performed By: #### L 501.9985 #### [facility] [address] [place], [address] Basophil percentageOrdered B y: Graham Salamancaarmin on 10-23-2024 Basophils/100 WBC (Bld) 0.1 % 0-1 [facility] Blood urea nitrogen (BUN)/cr eatinine ratioOrdered By: Graham Salamancaarmin on 10-23-2024 Urea nitrogen/Creatinine [Mass ratio] 29.6 mg/mg High - [facility] CBC W/Diff, Automatedon 10-03 Absolute Lymph 0.73 X10 3/uL Low 0.83-4.51 [facility] Comment on above: Performed By: #### L 501.9985 #### [facility] [address] [place], [address] Absolute Neut 11.4 X10 3/uL High 2.0-7.7 [facility] Comment on above: Performed By: #### L 501.9985 #### [facility] [address] [place], [address] Basophils/100 WBC (Bld) 0.1 % Normal 0-1 [facility] Comment on above: Performed By: #### L 501.9985 #### [facility] [address] [place], [address] Eosinophils/100 WBC (Bld) 0.0 % Normal 0-5 [facility] Comment on above: Performed By: #### L 501.9985 #### [facility] [address] [place], [address] Erythrocyte distribution width (RBC) [Ratio] 13.1 % Normal 11.6-14.6 [facility] Comment on above: Performed By: #### L 501.9985 #### [facility] [address] [place], [address] Hematocrit (Bld) [Volume fraction] 36.9 % Low 40-54 [facility] Comment on above: Performed By: #### L 501.9985 #### [facility] [address] [place], [address] Hemoglobin (Bld) [Mass/Vol] 12.1 g/dL Low 13.0-16.5 [facility] Comment on above: Performed By: #### L 501.9985 #### [facility] [address] [place], [address] IG% 0.500 Normal 0.0-0.9 [facility] Comment on above: Result Comment: IG% - Immature Granulocytes (promyelocytes, myelocytes and metamyelocytes) > 1% indicates that a LEFT SHIFT is Present. Performed By: #### L 501.9985 #### [facility] [address] [place], [address] Lymphocytes/100 WBC (Bld) 5.7 % Low 19-41 [facility] Comment on above: Performed By: #### L 501.9985 #### [facility] [address] [place], [address] MCH (RBC) [Entitic mass] 31.2 pg Normal 27.0-32.0 [facility] Comment on above: Performed By: #### L 501.9985 #### [facility] [address] [place], [address] MCHC (RBC) [Mass/Vol] 32.8 g/dL Normal 32-36 [facility] Comment on above: Performed By: #### L 501.9985 #### [facility] [address] [place], [address] MCV (RBC) [Entitic vol] 95.1 fL High 80-94 [facility] Comment on above: Performed By: #### L 501.9985 #### [facility] [address] [place], [address] Monocytes/100 WBC (Bld) 4.2 % Normal 0-10 [facility] Comment on above: Performed By: #### L 501.9985 #### [facility] [address] [place], [address] Neutrophils/100 WBC (Bld) 89.5 % High 47-70 [facility] Comment on above: Performed By: #### L .9985 #### [facility] [address] [place], [address] Nucleated RBC (Bld) [#/Vol] 0 10*3/uL Normal 0-5 [facility] Comment on above: Performed By: #### L 501.9985 #### [facility] [address] [place], [address] Platelet mean volume (Bld) [Entitic vol] 9.6 fL Normal 6.2-12.0 [facility] Comment on above: Performed By: #### L 501.9985 #### [facility] [address] [place], [address] Platelets (Bld) [#/Vol] 287 10*3/uL Normal 150-450 [facility] Comment on above: Performed By: #### L 501.9985 #### [facility] [address] [place], [address] RBC (Bld) [#/Vol] 3.88 10*6/uL Low 4.6-6.2 [facility] Comment on above: Performed By: #### L 501.9985 #### [facility] [address] [place], [address] RDW SD 45.7 fl High 35.1-43.9 [facility] Comment on above: Performed By: #### L 501.9985 #### [facility] [address] [place], [address] WBC (Bld) [#/Vol] 12.8 10*3/uL High 4.4-11.0 [facility] Comment on above: Performed By: #### L 501.9985 #### [facility] [address] [place], [place], [address] Carbon dioxide measurementOr dered By: Graham Tolbert on 10-23-2024 CO2 [Moles/Vol] 28.0 mmol/L 21.0-32.0 [facility] Chloride measurementOrdered By: Graham Tolbert on 10-23-2024 Chloride [Moles/Vol] 105 mmol/L 98-107 [facility] Eosinophil percentageOrdered By: Graham Tolbert on 10-23-2024 Eosinophils/100 WBC (Bld) 0.0 % 0-5 [facility] Erythrocyte distribution wid th ratioOrdered By: Graham Tolbert on 10-23-2024 Erythrocyte distribution width (RBC) [Ratio] 13.1 % 11.6-14.6 [facility] Erythrocyte distribution wid th standard deviationOrdered By: Graham Tolbert on 10-23-2024 Erythrocyte distribution width (RBC) [Entitic vol] 45.7 fL High 35.1-43.9 [facility] Estimated glomerular filtrat ion rate (GFR) AmericanOrdered By: Graham Tolbert on 10-23-2024 Estimated GFR (MDRD) Amer 137 mL/min >60 [facility] Comment on above: GFR Calc Estimation of creatinine akbar aranceOrdered By: Graham Tolbert on 10-23-2024 Estimated Creatinine Clearance Calc 90.10 ml/min [facility] Glomerular filtration rate ( GFR) estimationOrdered By: Graham Tolbert on 10-23-2024 Estimated GFR (MDRD) Non-Af Amer 113 mL/min >60 [facility] Comment on above: Non- GFR Calc Glucose measurementOrdered B y: Graham Tolbert on 10-23-2024 Glucose [Mass/Vol] 143 mg/dL High 74-106 [facility] Comment on above: Fasting Glucose resu lt greater than or equal to 126 mg/dL suggests DIABETES MELLITUS per A.D.A. criteria. Gram Stainon 10-23-2024 GS Acceptable Specimen? Yes (<25 Epithelial cells per/lpf) Gram Stain No cells seen Very Rare Gram positive cocci Normal [facility] Comment on above: Performed By: #### M 300.4600, M100.2000, M300.4500, M100.2400 ####[facility] [id number] [place], [address] Hematocrit Auto (Bld) [Volum e fraction]Ordered By: Graham Tolbert on 10-23-2024 Hematocrit (Bld) [Volume fraction] 36.9 % Low 40-54 [facility] Hemoglobin measurementOrdere d By: Graham Tolbert on 10-23-2024 Hemoglobin (Bld) [Mass/Vol] 12.1 g/dL Low 13.0-16.5 [facility] Immature granulocytes/100 WB C Auto (Bld)Ordered By: Graham Tolbert on 10-23-2024 Immature granulocytes/100 WBC (Bld) 0.500 % 0.0-0.9 [facility] Comment on above: IG% - Immature Granu locytes (promyelocytes, myelocytes and metamyelocytes) > 1% indicates that a LEFT SHIFT is Present. Lymphocytes Auto (Unsp spec) [#/Vol]Ordered By: Graham Tolbert on 10-23-2024 Lymphocytes (Bld) [#/Vol] 0.73 10*3/uL Low 0.83-4.51 [facility] Lymphocytes/100 WBC Auto (Un sp spec)Ordered By: Graham Tolbert on 10-23-2024 Lymphocytes/100 WBC (Bld) 5.7 % Low 19-41 [facility] MCV (mean corpuscular volume ) determinationOrdered By: Graham Tolbert on 10-23-2024 MCV (RBC) [Entitic vol] 95.1 fL High 80-94 [facility] Mean corpuscular hemoglobin (MCH) determinationOrdered By: Graham Tolbert on 10-23-2024 MCH (RBC) [Entitic mass] 31.2 pg 27.0-32.0 [facility] Mean corpuscular hemoglobin concentration (MCHC) determinationOrdered By: Graham Tolbert on 10-23-2024 MCHC (RBC) [Mass/Vol] 32.8 g/dL 32-36 [facility] Mean platelet volume determi nationOrdered By: Graham Tolbert on 10-23-2024 Platelet mean volume (Bld) [Entitic vol] 9.6 fL 6.2-12.0 [facility] Monocyte percentageOrdered B y: Graham Tolbert on 10-23-2024 Monocytes/100 WBC (Bld) 4.2 % 0-10 [facility] Neutrophil percentageOrdered By: Graham Tolbert on 10-23-2024 Neutrophils/100 WBC (Bld) 89.5 % High 47-70 [facility] Nucleated red blood cell per centageOrdered By: Graham Tolbert on 10-23-2024 Nucleated RBC/100 WBC (Bld) [Ratio] 0 % 0-5 [facility] Platelet countOrdered By: Edouard Tolbert on 10-23-2024 Platelets (Bld) [#/Vol] 287 10*3/uL 150-450 [facility] Potassium measurementOrdered By: Graham Tolbert on 10-23-2024 Potassium [Moles/Vol] 4.4 mmol/L 3.5-5.1 [facility] RBC Auto (Bld) [#/Vol]Ordere d By: Graham Tolbert on 10-23-2024 RBC (Bld) [#/Vol] 3.88 10*6/uL Low 4.6-6.2 [facility] Serum anion gap measurementO rdered By: Graham Tolbert on 10-23-2024 Anion gap [Moles/Vol] 5 mmol/L 5-15 [facility] Serum or plasma calcium micah urement (mass/volume)Ordered By: Graham Tolbert on 10-23-2024 Calcium [Mass/Vol] 9.3 mg/dL 8.5-10.1 [facility] Serum or plasma creatinine m easurement (mass/volume)Ordered By: Graham Tolbert on 10-23-2024 Creatinine [Mass/Vol] 0.78 mg/dL 0.70-1.30 [facility] Comment on above: The validity of the calculated GFR & GFRAA in patients over 70 years has not been determined. Clinical correlation is essential. Serum or plasma urea nitroge n measurement (mass/volume)Ordered By: Graham Tolbert on 10-23-2024 Urea nitrogen [Mass/Vol] 23 mg/dL High 7-18 [facility] Sodium levelOrdered By: Graham Tolbert on 10-23-2024 Sodium [Moles/Vol] 138 mmol/L 136-145 [facility] White blood cell (WBC) count Ordered By: Graham Tolbert on 10-23-2024 WBC (Bld) [#/Vol] 12.8 10*3/uL High 4.4-11.0 [facility] Basic Metabolic Profile (BMP )on 10-22-2024 BUN/CRE 34.7 RATIO High 10-20 [facility] Comment on above: Performed By: #### L 500.2500, L100.0100 #### [facility] Laboratory [address] [facility] [address] CA,Total 8.8 mg/dL Normal 8.5-10.1 [facility] Comment on above: Performed By: #### L 500.2500, L100.0100 #### [facility] Laboratory [address] [place], [address] Chloride [Moles/Vol] 110 mmol/L High 98-107 [facility] Comment on above: Performed By: #### L 500.2500, L100.0100 #### [facility] Laboratory [address] [place], [address] CO2 [Moles/Vol] 25.0 mmol/L Normal 21.0-32.0 [facility] Comment on above: Performed By: #### L 500.2500, L100.0100 #### [facility] Laboratory [address] [place], [address] Creatinine [Mass/Vol] 0.63 mg/dL Low 0.70-1.30 [facility] Comment on above: Result Comment: The validity of the calculated GFR GFRAA in patients over 70 years has not been determined. Clinical correlation is essential. Performed By: #### L 500.2500, L100.0100 #### [facility] Laboratory [address] [place], [address] ECRCL 111.55 ml/min Normal [facility] Comment on above: Performed By: #### L 500.2500, L100.0100 #### [facility] Laboratory [address] [place], [address] EST GFR - AA 173 mL/min Normal >60 [facility] Comment on above: Result Comment: Afri can Azerbaijani GFR Calc Performed By: #### L 500.2500, L100.0100 #### [facility] Laboratory [address] [place], [address] GAP 4 Low 5-15 [facility] Comment on above: Performed By: #### L 500.2500, L100.0100 #### [facility] Laboratory [address] [place], [address] GFR/1.73 sq M.predicted among non-blacks MDRD (S/P/Bld) [Vol rate/Area] 143 mL/min/{1.73_m2} Normal >60 [facility] Comment on above: Result Comment: Non- GFR Calc Performed By: #### L 500.2500, L100.0100 #### [facility] Laboratory [address] [place], [address] Glucose [Mass/Vol] 179 mg/dL High 74-106 [facility] Comment on above: Result Comment: Fast ing Glucose result greater than or equal to 126 mg/dL suggests DIABETES MELLITUS per A.D.A. criteria. Performed By: #### L 500.2500, L100.0100 #### [facility] Laboratory [address] [place], [address] Potassium [Moles/Vol] 4.2 mmol/L Normal 3.5-5.1 [facility] Comment on above: Performed By: #### L 500.2500, L100.0100 #### [facility] Laboratory [address] [place], [address] Sodium [Moles/Vol] 138 mmol/L Normal 136-145 [facility] Comment on above: Performed By: #### L 500.2500, L100.0100 #### [facility] Laboratory [address] [place], [address] Urea nitrogen [Mass/Vol] 22 mg/dL High 7-18 [facility] Comment on above: Performed By: #### L 500.2500, L100.0100 #### [facility] Laboratory [address] [place], [address] CBC W/Diff, Automatedon - Absolute Lymph 0.32 X10 3/uL Low 0.83-4.51 [facility] Comment on above: Performed By: #### L 500.2500, L100.0100 #### [facility] Laboratory [address] [place], [address] Absolute Neut 4.9 X10 3/uL Normal 2.0-7.7 [facility] Comment on above: Performed By: #### L 500.2500, L100.0100 #### [facility] Laboratory [address] [place], [address] Basophils/100 WBC (Bld) 0.2 % Normal 0-1 [facility] Comment on above: Performed By: #### L 500.2500, L100.0100 #### [facility] Laboratory [address] [place], [address] Eosinophils/100 WBC (Bld) 0.0 % Normal 0-5 [facility] Comment on above: Performed By: #### L 500.2500, L100.0100 #### [facility] Laboratory [address] [place], [address] Erythrocyte distribution width (RBC) [Ratio] 12.9 % Normal 11.6-14.6 [facility] Comment on above: Performed By: #### L 500.2500, L100.0100 #### [facility] Laboratory [address] [place], [address] Hematocrit (Bld) [Volume fraction] 35.4 % Low 40-54 [facility] Comment on above: Performed By: #### L 500.2500, L100.0100 #### [facility] Laboratory [address] [place], [address] Hemoglobin (Bld) [Mass/Vol] 11.9 g/dL Low 13.0-16.5 [facility] Comment on above: Performed By: #### L 500.2500, L100.0100 #### [facility] Laboratory [address] [place], [address] IG% 0.400 Normal 0.0-0.9 [facility] Comment on above: Result Comment: IG% - Immature Granulocytes (promyelocytes, myelocytes and metamyelocytes) > 1% indicates that a LEFT SHIFT is Present. Performed By: #### L 500.2500, L100.0100 #### [facility] Laboratory [address] [place], [address] Lymphocytes/100 WBC (Bld) 6.1 % Low 19-41 [facility] Comment on above: Performed By: #### L 500.2500, L100.0100 #### [facility] Laboratory [address] [place], [address] MCH (RBC) [Entitic mass] 32.1 pg High 27.0-32.0 [facility] Comment on above: Performed By: #### L 500.2500, L100.0100 #### [facility] Laboratory [address] [place], [address] MCHC (RBC) [Mass/Vol] 33.6 g/dL Normal 32-36 [facility] Comment on above: Performed By: #### L 500.2500, L100.0100 #### [facility] Laboratory [address] [place], [address] MCV (RBC) [Entitic vol] 95.4 fL High 80-94 [facility] Comment on above: Performed By: #### L 500.2500, L100.0100 #### [facility] Laboratory [address] [place], [address] Monocytes/100 WBC (Bld) 1.0 % Normal 0-10 [facility] Comment on above: Performed By: #### L 500.2500, L100.0100 #### [facility] Laboratory [address] [place], [address] Neutrophils/100 WBC (Bld) 92.3 % High 47-70 [facility] Comment on above: Performed By: #### L 500.2500, L100.0100 #### [facility] Laboratory [address] [place], [address] Nucleated RBC (Bld) [#/Vol] 0 10*3/uL Normal 0-5 [facility] Comment on above: Performed By: #### L 500.2500, L100.0100 #### [facility] Laboratory [address] [place], [address] Platelet mean volume (Bld) [Entitic vol] 9.5 fL Normal 6.2-12.0 [facility] Comment on above: Performed By: #### L 500.2500, L100.0100 #### [facility] Laboratory [address] [place], [address] Platelets (Bld) [#/Vol] 264 10*3/uL Normal 150-450 [facility] Comment on above: Performed By: #### L 500.2500, L100.0100 #### [facility] Laboratory [address] [place], [address] RBC (Bld) [#/Vol] 3.71 10*6/uL Low 4.6-6.2 [facility] Comment on above: Performed By: #### L 500.2500, L100.0100 #### [facility] Laboratory [address] [place], [address] RDW SD 44.8 fl High 35.1-43.9 [facility] Comment on above: Performed By: #### L 500.2500, L100.0100 #### [facility] Laboratory [address] [place], [address] WBC (Bld) [#/Vol] 5.3 10*3/uL Normal 4.4-11.0 [facility] Comment on above: Performed By: #### L 500.2500, L100.0100 #### [facility] Laboratory [address] [place], [address] Gram stainOrdered By: Graham mar on 10-22-2024 Microscopic observation Gram stain Nom (Unsp spec) [facility] L. pneumophila Ag Ql (U)Orde red By: Graham Tolbert on 10-22-2024 Legionella Antigen [facility] Legionella Antigen Urineon 0 10-22-2024 LEGU URINE, CLEAN CATCH Legionella Antigen result interpretation: L pneumo Ag Ur Ql Negative Presumptive negative for Legionella pneumophila serogroup 1 antigen in urine, suggesting no recent or current infection. Legionella Ag, Urine Negative (See interpretation below) Normal [facility] Comment on above: Performed By: #### M 300.4600, M100.2000, M300.4500, M100.2400 ####[facility] [address] [place], [address] Microorganism identified Cx Nom (Unsp spec)Ordered By: Graham Tolbert on 10-22-2024 Respiratory Culture or Staphylococcus aureus isolated. [facility] RESPIRATORY PANEL MOLECULARo n 10-22-2024 RP PANEL [...] Not Detected RSV B Not Detected Normal [facility] Comment on above: Performed By: #### L 501.4021 #### [facility] Laboratory [address] [place], [address] Respiratory pathogens DNA an d RNA panel WES+probe (Resp)Ordered By: Troy Monroy on 10-22-2024 Respiratory Panel (PCR) [facility] Strep pneumoniae Antig(UR,CS F)on 10-22-2024 STPAG URINE, CLEAN CATCH URINE INTERPRETATION Strep pneumoniae Antig(UR,CSF) Negative Urine Presumptive negative for pneumococcal pneumonia, suggesting no current or recent pneumococcal infection. Infection due to S pneumoniae cannot be ruled out since the antigen present in the sample may be below the detection limit of the test. Strep pneumo Test Negative URINE (See interpretation below) Normal [facility] Comment on above: Performed By: #### M 300.4600, M100.2000, M300.4500, M100.2400 ####[facility] [address] [place], [address] Streptococcus pneumoniae ant igen assayOrdered By: Graham Tolbert on 10-22-2024 Streptococcus pneumoniae Antigen (M [facility] 12 Lead EKGon 10-21-2024 12 Lead EKG [facility] [address] [place] [address] 12 Lead EKG 10/21/24 1612 MR#: [id number] Acct: [id number] Name: MICHAEL MCNEILL SANTOS Rep #: [id number] : 1975 48 From: Iris Edmondson MD Attending Dr: Dr. Graham Tolbert, Status: DIS IN Ordering Dr: Julius Matthews DO Date: 10/21/24 Location: [facility] Sex: M C Admitted: 10/21/24 Test Reason : SOB Blood Pressure : */* mmHG Vent. Rate : 107 BPM Atrial Rate : 107 BPM P-R Int : 120 ms QRS Dur : 90 ms QT Int : 362 ms P-R-T Axes : 86 84 73 degrees QTcB Int : 483 ms Sinus tachycardia Biatrial enlargement Abnormal ECG Confirmed by AJAY WEI, PHILIP ([id number]), dictionary editor OMERO ROBLES ([id number]) on 10/29/2024 6:01:06 AM Referred By: Troy Monroy Confirmed By: PHILIP EDMONDSON MD 10/29/24 0601 Date Iris Edmondson MD CC: Dr. Graham Tolbert DO; Dr. Troy Monroy MD; Dr. Julius Matthews DO; No Primary Care Physician Signed Normal [facility] Arterial patency Wrist arter y --pre arterial punctureOrdered By: Julius Matthews on 10-21-2024 Connie Test Positive [facility] BNP (brain natriuretic pepti de measurement)Ordered By: Julius Matthews on 10-21-2024 Natriuretic peptide B (Bld) [Mass/Vol] 31.1 pg/mL 0-100 [facility] BNP,B-Type NATRIURETIC PEPTI Shashi 10-21-2024 Natriuretic peptide B (Bld) [Mass/Vol] 31.1 pg/mL Normal 0-100 [facility] Comment on above: Performed By: #### L 9000.0800 #### [facility] Laboratory [address] [place], [address] Base excess Calc (BldV) [Mol es/Vol]Ordered By: Julius Matthews on 10-21-2024 Blood Gas Base Excess 10 mmol/L High -2-2 [facility] Basic Metabolic Profile (BMP )on 10-21-2024 BUN/CRE 34.1 RATIO High 07-21 [facility] Comment on above: Order Comment: 'TROP ' Serial specimen #1, #2 or #3: 1 Performed By: #### L 9000.0800 #### [facility] Laboratory [address] [place], [address] CA,Total 9.3 mg/dL Normal 8.5-10.1 [facility] Comment on above: Order Comment: 'TROP ' Serial specimen #1, #2 or #3: 1 Performed By: #### L 9000.0800 #### [facility] Laboratory [address] [place], [address] Chloride [Moles/Vol] 101 mmol/L Normal 98-107 [facility] Comment on above: Order Comment: 'TROP ' Serial specimen #1, #2 or #3: 1 Performed By: #### L 9000.0800 #### [facility] Laboratory [address] [place], [address] CO2 [Moles/Vol] 37.0 mmol/L High 21.0-32.0 [facility] Comment on above: Order Comment: 'TROP ' Serial specimen #1, #2 or #3: 1 Performed By: #### L 9000.0800 #### [facility] Laboratory [address] [place], [address] Creatinine [Mass/Vol] 0.82 mg/dL Normal 0.70-1.30 [facility] Comment on above: Order Comment: 'TROP ' Serial specimen #1, #2 or #3: 1 Result Comment: The validity of the calculated GFR GFRAA in patients over 70 years has not been determined. Clinical correlation is essential. Performed By: #### L 9000.0800 #### [facility] Laboratory [address] [place], [address] ECRCL 90.07 ml/min Normal [facility] Comment on above: Order Comment: 'TROP ' Serial specimen #1, #2 or #3: 1 Performed By: #### L 9000.0800 #### [facility] Laboratory [address] [place], [address] EST GFR - AA 128 mL/min Normal >60 [facility] Comment on above: Order Comment: 'TROP ' Serial specimen #1, #2 or #3: 1 Result Comment: Afri can Azerbaijani GFR Calc Performed By: #### L 9000.0800 #### [facility] Laboratory [address] [place], [address] GAP 4 Low 5-15 [facility] Comment on above: Order Comment: 'TROP ' Serial specimen #1, #2 or #3: 1 Performed By: #### L 9000.0800 #### [facility] Laboratory [address] [place], [address] GFR/1.73 sq M.predicted among non-blacks MDRD (S/P/Bld) [Vol rate/Area] 106 mL/min/{1.73_m2} Normal >60 [facility] Comment on above: Order Comment: 'TROP ' Serial specimen #1, #2 or #3: 1 Result Comment: Non- GFR Calc Performed By: #### L 9000.0800 #### [facility] Laboratory [address] [place], [address] Glucose [Mass/Vol] 146 mg/dL High 74-106 [facility] Comment on above: Order Comment: 'TROP ' Serial specimen #1, #2 or #3: 1 Result Comment: Fast ing Glucose result greater than or equal to 126 mg/dL suggests DIABETES MELLITUS per A.D.A. criteria. Performed By: #### L 9000.0800 #### [facility] Laboratory [address] [place], [address] Potassium [Moles/Vol] 3.5 mmol/L Normal 3.5-5.1 [facility] Comment on above: Order Comment: 'TROP ' Serial specimen #1, #2 or #3: 1 Performed By: #### L 9000.0800 #### [facility] Laboratory [address] [place], [address] Sodium [Moles/Vol] 142 mmol/L Normal 136-145 [facility] Comment on above: Order Comment: 'TROP ' Serial specimen #1, #2 or #3: 1 Performed By: #### L 9000.0800 #### [facility] Laboratory [address] [place], [address] Urea nitrogen [Mass/Vol] 28 mg/dL High 7-18 [facility] Comment on above: Order Comment: 'TROP ' Serial specimen #1, #2 or #3: 1 Performed By: #### L 9000.0800 #### [facility] Laboratory [address] [place], [address] Blood [facility] CONNIE TEST Positive Normal [facility] Comment on above: Performed By: #### L 9000.0800 #### [facility] Laboratory [address] [place], [address] Base excess Calc (Bld) [Moles/Vol] 10 mmol/L High -2 to +2 [facility] Comment on above: Performed By: #### L 9000.0800 #### [facility] Laboratory [address] [place], [address] Blood Gas Type ART Normal [facility] Comment on above: Performed By: #### L 9000.0800 #### [facility] Laboratory [address] [place], [address] CO2 [Moles/Vol] 38 mmol/L Normal [facility] Comment on above: Performed By: #### L 9000.0800 #### [facility] Laboratory [address] [place], [address] FI02 60.0 [facility] Comment on above: Performed By: #### L 9000.0800 #### [facility] [address] [place], [address] HCO3 (Bld) [Moles/Vol] 35.7 mmol/L High 22-26 [facility] Comment on above: Performed By: #### L 9000.0800 #### [facility] [address] [place], [address] Mode Not entered [facility] Comment on above: Performed By: #### L 9000.0800 #### [facility] Laboratory [address] [place], [address] O2 Delivery Dev BiPAP [facility] Comment on above: Performed By: #### L 9000.0800 #### [facility] [address] [place], [address] pCO2 66.3 mmHg High 35-45 [facility] Comment on above: Performed By: #### L 9000.0800 #### [facility] Laboratory [address] [place], [address] PEEP 6 Normal [facility] Comment on above: Performed By: #### L 9000.0800 #### [facility] Laboratory [address] [place], [address] pH (Bld) 7.34 [pH] Low 7.35-7.45 [facility] Comment on above: Performed By: #### L 9000.0800 #### [facility] Laboratory [address] [place], [address] PO2 343 mmHG Invalid Interpretation Code 75-100 [facility] Comment on above: Performed By: #### L 9000.0800 #### [facility] Laboratory [address] [place], [address] Read Back By Yes [facility] Comment on above: Performed By: #### L 9000.0800 #### [facility] Laboratory [address] [place], [address] Results To CASSIE Normal [facility] Comment on above: Performed By: #### L 9000.0800 #### [facility] Laboratory [address] [place], [address] RR 12 Normal [facility] Comment on above: Performed By: #### L 8999.0800 #### [facility] Laboratory [address] [place], [address] SITE L Brach Normal [facility] Comment on above: Performed By: #### L 0.0800 #### [facility] Laboratory [address] [place], [address] SO2 100 High 95-99 [facility] Comment on above: Performed By: #### L 8999.0800 #### [facility] Laboratory [address] [place], [address] Time Given 16:29:44 Normal [facility] Comment on above: Performed By: #### L 0.0800 #### [facility] Laboratory [address] [place], [address] Blood bicarbonate measuremen tOrdered By: Julius Matthews on 10-21-2024 Blood Gas Bicarbonate Actual 35.7 mmol/L High 22-26 [facility] CBC W/Diff, Automatedon 10-03 Absolute Lymph 2.02 X10 3/uL Normal 0.83-4.51 [facility] Comment on above: Performed By: #### L 8999.0800 #### [facility] Laboratory [address] [place], [address] Absolute Neut 6.3 X10 3/uL Normal 2.0-7.7 [facility] Comment on above: Performed By: #### L 9000.0800 #### [facility] Laboratory [address] [place], [address] Basophils/100 WBC (Bld) 0.7 % Normal 0-1 [facility] Comment on above: Performed By: #### L 9000.0800 #### [facility] [address] [place], [address] Eosinophils/100 WBC (Bld) 7.3 % High 0-5 [facility] Comment on above: Performed By: #### L 9000.0800 #### [facility] [address] [place], [address] Erythrocyte distribution width (RBC) [Ratio] 12.6 % Normal 11.6-14.6 [facility] Comment on above: Performed By: #### L 9000.0800 #### [facility] Laboratory [address] [place], [address] Hematocrit (Bld) [Volume fraction] 41.5 % Normal 40-54 [facility] Comment on above: Performed By: #### L 9000.0800 #### [facility] [address] [place], [address] Hemoglobin (Bld) [Mass/Vol] 13.8 g/dL Normal 13.0-16.5 [facility] Comment on above: Performed By: #### L 9000.0800 #### [facility] [address] [place], [address] IG% 0.200 Normal 0.0-0.9 [facility] Comment on above: Result Comment: IG% - Immature Granulocytes (promyelocytes, myelocytes and metamyelocytes) > 1% indicates that a LEFT SHIFT is Present. Performed By: #### L 9000.0800 #### [facility] [address] [place], [address] Lymphocytes/100 WBC (Bld) 20.6 % Normal 19-41 [facility] Comment on above: Performed By: #### L 9000.0800 #### [facility] [address] [place], [address] MCH (RBC) [Entitic mass] 31.7 pg Normal 27.0-32.0 [facility] Comment on above: Performed By: #### L 9000.0800 #### [facility] [facility] [address] [place], [address] MCHC (RBC) [Mass/Vol] 33.3 g/dL Normal 32-36 [facility] Comment on above: Performed By: #### L 9000.0800 #### [facility] [address] [place], [address] MCV (RBC) [Entitic vol] 95.4 fL High 80-94 [facility] Comment on above: Performed By: #### L 9000.0800 #### [facility] [address] [place], [address] Monocytes/100 WBC (Bld) 6.9 % Normal 0-10 [facility] Comment on above: Performed By: #### L 9000.0800 #### [facility] [address] [place], [address] Neutrophils/100 WBC (Bld) 64.3 % Normal 47-70 [facility] Comment on above: Performed By: #### L 9000.0800 #### [facility] [address] [place], [address] Nucleated RBC (Bld) [#/Vol] 0 10*3/uL Normal 0-5 [facility] Comment on above: Performed By: #### L 9000.0800 #### [facility] [address] [place], [address] Platelet mean volume (Bld) [Entitic vol] 9.3 fL Normal 6.2-12.0 [facility] Comment on above: Performed By: #### L 9000.0800 #### [facility] [address] [place], [address] Platelets (Bld) [#/Vol] 362 10*3/uL Normal 150-450 [facility] Comment on above: Performed By: #### L 9000.0800 #### [facility] [address] [place], [address] RBC (Bld) [#/Vol] 4.35 10*6/uL Low 4.6-6.2 [facility] Comment on above: Performed By: #### L 9000.0800 #### [facility] [address] [place], [address] RDW SD 44.6 fl High 35.1-43.9 [facility] Comment on above: Performed By: #### L 9000.0800 #### [facility] [address] [place], [address] WBC (Bld) [#/Vol] 9.8 10*3/uL Normal 4.4-11.0 [facility] Comment on above: Performed By: #### L 9000.0800 #### [facility] [address] [place], [address] CTA Chest W/WO Contraston CTA Chest W/WO Contrast [facility] Imaging Services [address] [place] [address] CTA Chest W/WO Contrast MR#: [id number] Acct: [id number] Name: MICHAEL MCNEILL SANTOS Rep #: [id number] : 1975 M 48 From: Andrew Jones MD PCP: Care Physician,No Primary Status: [facility] ER Study: CTA Chest W/WO Contrast Date of Exam: 10/21/24 Exam# [id number] Ordering Dr: [place] [id number] EXAM: CT ANGIOGRAPHY CHEST WITHOUT AND WITH [...] Signed: Andrew Jones MD at 18:53 EST Reading Location ID and State: [address] [place] [address] Tel , Service support , CC: Dr. Julius Matthews DO; No Primary Care Physician Driver/Refuse Collector: Signed Normal [facility] Chest 1 View (Portable)on Chest 1 View (Portable) [facility] Imaging Services [address] [place] [address] Chest 1 View (Portable) MR#: [id number] Acct: [id number] Name: MICHAEL MCNEILL SANTOS Rep #: [id number] : 1975 M 48 From: Andrew Jones MD PCP: Care Physician,No Primary Status: [facility] ER Study: Chest 1 View (Portable) Date of Exam: 10/21/24 Exam# [id number] Ordering [place]: [place] [id number] EXAM: XR CHEST, 1 VIEW CLINICAL INDICATION: [...] Julius Matthews DO; No Primary Care Physician Driver/Refuse Collector: Signed Normal [facility] D-Dimer Quantitative (DVT/PE )on 10-21-2024 D-DIMER QUANT 1.14 FEU/ug/m Invalid Interpretation Code 0.27-0.49 [facility] Comment on above: Result Comment: D-Di edouard ELEVATED (>0.49): Additional studies and clinical assessments are indicated to conclude diagnosis of: Deep Vein Thrombosis (DVT) or Pulmonary Embolism (PE) RESULTS CALLED TO ALEJANDRO 10/21/24 165Jemima Dias. REPORT READ BACK BY . SAME Performed By: #### L 300.8000 #### [facility] [place] [address], [address] D-dimer measurement for deep venous thrombosisOrdered By: Julius Matthews on 10-21-2024 D-Dimer Quantitative (PE/DVT) 1.14 FEU/ug/m High 0.27-0.49 [facility] Comment on above: D-Dimer ELEVATED (>0 .49): Additional studies and clinicalassessments are indicated to conclude diagnosis of:Deep Vein Thrombosis (DVT) or Pulmonary Embolism (PE)RESULTS CALLED TO ALEJANDRO 10/21/24 1651 Galina Dias.REPORT READ BACK BY . SAME Determination of fraction of inspired oxygenOrdered By: Julius Matthews on 10-21-2024 Blood Gas Oxygen Percent 60.0 [facility] Emergency Department Summary on 10-21-2024 Emergency Department Summary [facility] Medical Records Department [address] [place] [address] Emergency Department Summary 10/21/24 MR#: [id number] Acct: [id number] Name: MICHAEL MCNEILL SANTOS Rep #: [id number] : 1975 48 From: Julius Matthews DO PCP: Care Physician,No Primary Status:ADM [place] Location: [address] History of Present Illness Chief Complaint: Shortness of Breath PFSH PFS Medical History (Updated 10/21/24 @ 19:35 by [...] light, Ext (more content not included)... Normal [facility] Influenza virus A and B and SARS-CoV-2 (COVID-19) and Respiratory syncytial virus RNAOrdered By: Julius Matthews on 10-21-2024 SARS-CoV-2 (COVID-19) RNA WES+probe Ql (Unsp spec) [facility] L501.4020on 10-21-2024 TROPONIN-I HS 8 pg/mL Normal 3.0-78.0 [facility] Comment on above: Order Comment: 'TROP ' Serial specimen #1, #2 or #3: 1 Result Comment: Nahomi se Note: New Test Units and Gender Specific Reference Ranges. For more information see Policy Stat Procedure Veteran High Sensitivity Troponin (TNIH) and attachments. Performed By: #### L 9000.0800 #### [facility] [address] [facility] [place], [place], [address] M100.678on 10-21-2024 M100.678 Pending SARS-CoV-2 (COVID 19) Negative INFLUENZA A Negative INFLUENZA B Negative RSV PCR Negative Normal [facility] Comment on above: Performed By: #### L 501.4021 #### [facility] [address] [place], [address] No Panel InformationOrdered By: Julius Matthews on 10-21-2024 Bedside Blood Gas PEEP 6 [facility] Bld Gas Crit Called To/Read Back By Yes [facility] Blood Gas Notified Time 16:29:44 [facility] Blood Gas Notified Whom CASSIE [facility] Blood Gas Respiration Rate 12 [facility] Blood Gas Sample Site L Brach [facility] Blood Gas Specimen Type ART [facility] Blood Gas Vent Mode Not entered [facility] Oxygen Delivery Device BiPAP [facility] Oxygen saturation measuremen tOrdered By: Julius Matthews on 10-21-2024 Blood Gas Oxygen Saturation 100 % High 95-99 [facility] Partial pressure of carbon d ioxide measurementOrdered By: Julius Matthews on 10-21-2024 Arterial Blood Partial Pressure CO2 66.3 mmHg High 35-45 [facility] Partial pressure of oxygen m easurementOrdered By: Julius Matthews on 10-21-2024 Arterial Blood Partial Pressure O2 343 mmHG High 75-100 [facility] Total carbon dioxide measure mentOrdered By: Julius Matthews on 10-21-2024 Blood Gas Total CO2 38 mmol/L [facility] Troponin IOrdered By: Julius Matthews on 10-21-2024 Troponin I High Sensitivity 8 pg/mL 3.0-78.0 [facility] Comment on above: Please Note: New Rubi t Units and Gender Specific Reference Ranges. For more information see Policy Stat Procedure Veteran High Sensitivity Troponin (TNIH) and attachments. pH (Unsp spec)Ordered By: Benitez Matthews on 10-21-2024 Blood Gas pH 7.34 Low 7.35-7.45 [facility] 12 Lead EKGon 09-19-2024 12 Lead EKG [facility] Cardiovascular Services [address] [place] [address] 12 Lead EKG 09/19/24 1821 MR#: [id number] Acct: [id number] Name: MICHAEL MCNEILL SANTOS Rep #: [id number] : 1975 48 From: Markus Perry MD Attending Dr: Status: DEP ER Ordering Dr: Troy Monsalve KENO ATTENDANT-C Date: 09/19/24 Location: ED Sex: M C [...] bpm Confirmed by MARKUS PERRY MD ([id number]), dictionary editor PEBBLES FELICIANO ([id number]) on 09/23/2024 8:38:17 AM Referred By: Confirmed By: MARKUS PERRY MD 09/23/24 0838 Date Markus Perry MD CC: KENO ATTENDANT-Mamta Monsalve; Dr. Julius Matthews, DO; No Primary Care Physician Signed Normal [facility] Absolute neutrophil countOrd ered By: Troy Monsalve on 09-19-2024 Neutrophils (Bld) [#/Vol] 6.3 10*3/uL 2.0-7.7 [facility] Basic Metabolic Profile (BMP )on 09-19-2024 BUN/CRE 24.0 RATIO High 10-20 [facility] Comment on above: Performed By: #### L 500.2500, L100.0100 ####[facility] [address] [place], [address] CA,Total 9.2 mg/dL Normal 8.5-10.1 [facility] Comment on above: Performed By: #### L 500.2500, L100.0100 ####[facility] [address] [place], [address] Chloride [Moles/Vol] 103 mmol/L Normal 98-107 [facility] Comment on above: Performed By: #### L 500.2500, L100.0100 ####[facility] [address] [place], [address] CO2 [Moles/Vol] 31.0 mmol/L Normal 21.0-32.0 [facility] Comment on above: Performed By: #### L 500.2500, L100.0100 ####[facility] [address] [place], [address] Creatinine [Mass/Vol] 0.75 mg/dL Normal 0.70-1.30 [facility] Comment on above: Result Comment: The validity of the calculated GFR GFRAA in patients over 70 years has not been determined. Clinical correlation is essential. Performed By: #### L 500.2500, L100.0100 ####[facility] [address] [place], [address] ECRCL 112.61 ml/min Normal [facility] Comment on above: Performed By: #### L 500.2500, L100.0100 ####[facility] [address] [place], [address] EST GFR - AA 142 mL/min Normal >60 [facility] Comment on above: Result Comment: Afri can Azerbaijani GFR Calc Performed By: #### L 500.2500, L100.0100 ####[facility] [address] [place], [address] GAP 3 Low 5-15 [facility] Comment on above: Performed By: #### L 500.2500, L100.0100 ####[facility] [address] [place], [address] GFR/1.73 sq M.predicted among non-blacks MDRD (S/P/Bld) [Vol rate/Area] 118 mL/min/{1.73_m2} Normal >60 [facility] Comment on above: Result Comment: Non- GFR Calc Performed By: #### L 500.2500, L100.0100 ####[facility] [address] [place], [address] Glucose [Mass/Vol] 101 mg/dL Normal 74-106 [facility] Comment on above: Result Comment: Fast ing Glucose result from 100 to 125 mg/dL suggests IMPAIRED HOMEOSTASIS per A.D.A. criteria. Performed By: #### L 500.2500, L100.0100 ####[facility] [address] [place], [address] Potassium [Moles/Vol] 4.1 mmol/L Normal 3.5-5.1 [facility] Comment on above: Performed By: #### L 500.2500, L100.0100 ####[facility] [address] [place], [address] Sodium [Moles/Vol] 137 mmol/L Normal 136-145 [facility] Comment on above: Performed By: #### L 500.2500, L100.0100 ####[facility] [address] [place], [address] Urea nitrogen [Mass/Vol] 18 mg/dL Normal 7-18 [facility] Comment on above: Performed By: #### L 500.2500, L100.0100 ####[facility] [address] [place], [address] Basophil percentageOrdered B y: Troy Monsalve on 09-19-2024 Basophils/100 WBC (Bld) 1.0 % 0-1 [facility] Blood urea nitrogen (BUN)/cr eatinine ratioOrdered By: Troy Monsalve on 09-19-2024 Urea nitrogen/Creatinine [Mass ratio] 24.0 mg/mg High 10-20 [facility] CBC W/Diff, Automatedon 09-01 Absolute Lymph 1.48 X10 3/uL Normal 0.83-4.51 [facility] Comment on above: Performed By: #### L 500.2500, L100.0100 #### [facility] [address] [place], [address] Absolute Neut 6.3 X10 3/uL Normal 2.0-7.7 [facility] Comment on above: Performed By: #### L 500.2500, L100.0100 #### [facility] [address] [place], [address] Basophils/100 WBC (Bld) 1.0 % Normal 0-1 [facility] Comment on above: Performed By: #### L 500.2500, L100.0100 #### [facility] [address] [place], [address] Eosinophils/100 WBC (Bld) 7.1 % High 0-5 [facility] Comment on above: Performed By: #### L 500.2500, L100.0100 #### [facility] [address] [place], [address] Erythrocyte distribution width (RBC) [Ratio] 12.6 % Normal 11.6-14.6 [facility] Comment on above: Performed By: #### L 500.2500, L100.0100 #### [facility] [address] [place], [address] Hematocrit (Bld) [Volume fraction] 43.7 % Normal 40-54 [facility] Comment on above: Performed By: #### L 500.2500, L100.0100 #### [facility] [address] [place], [address] Hemoglobin (Bld) [Mass/Vol] 14.5 g/dL Normal 13.0-16.5 [facility] Comment on above: Performed By: #### L 500.2500, L100.0100 #### [facility] [address] [place], [address] IG% 0.300 Normal 0.0-0.9 [facility] Comment on above: Result Comment: IG% - Immature Granulocytes (promyelocytes, myelocytes and metamyelocytes) > 1% indicates that a LEFT SHIFT is Present. Performed By: #### L 500.2500, L100.0100 #### [facility] [address] [place], [address] Lymphocytes/100 WBC (Bld) 16.2 % Low 19-41 [facility] Comment on above: Performed By: #### L 500.2500, L100.0100 #### [facility] [address] [place], [address] MCH (RBC) [Entitic mass] 31.4 pg Normal 27.0-32.0 [facility] Comment on above: Performed By: #### L 500.2500, L100.0100 #### [facility] [address] [place], [address] MCHC (RBC) [Mass/Vol] 33.2 g/dL Normal 32-36 [facility] Comment on above: Performed By: #### L 500.2500, L100.0100 #### [facility] [address] [place], [address] MCV (RBC) [Entitic vol] 94.6 fL High 80-94 [facility] Comment on above: Performed By: #### L 500.2500, L100.0100 #### [facility] [address] [place], [address] Monocytes/100 WBC (Bld) 6.6 % Normal 0-10 [facility] Comment on above: Performed By: #### L 500.2500, L100.0100 #### [facility] [address] [place], [address] Neutrophils/100 WBC (Bld) 68.8 % Normal 47-70 [facility] Comment on above: Performed By: #### L 500.2500, L100.0100 #### [facility] [address] [place], [address] Nucleated RBC (Bld) [#/Vol] 0 10*3/uL Normal 0-5 [facility] Comment on above: Performed By: #### L 500.2500, L100.0100 #### [facility] [address] [place], [address] Platelet mean volume (Bld) [Entitic vol] 9.4 fL Normal 6.2-12.0 [facility] Comment on above: Performed By: #### L 500.2500, L100.0100 #### [facility] [address] [place], [address] Platelets (Bld) [#/Vol] 302 10*3/uL Normal 150-450 [facility] Comment on above: Performed By: #### L 500.2500, L100.0100 #### [facility] [address] [place], [address] RBC (Bld) [#/Vol] 4.62 10*6/uL Normal 4.6-6.2 [facility] Comment on above: Performed By: #### L 500.2500, L100.0100 #### [facility] [address] [place], [address] RDW SD 43.4 fl Normal 35.1-43.9 [facility] Comment on above: Performed By: #### L 500.2500, L100.0100 #### [facility] [address] [place], [address] WBC (Bld) [#/Vol] 9.1 10*3/uL Normal 4.4-11.0 [facility] Comment on above: Performed By: #### L 500.2500, L100.0100 #### [facility] [address] [place], [address] Carbon dioxide measurementOr dered By: Troy Monsalve on 09-19-2024 CO2 [Moles/Vol] 31.0 mmol/L 21.0-32.0 [facility] Chest PA and Lateralon 09-19 Chest PA and Lateral [facility] Imaging Services [address] [place] [address] Chest PA and Lateral MR#: [id number] Acct: [id number] Name: MICHAEL MCNEILL SANTOS Rep #: [id number] : 1975 M 48 From: José Miguel Madsen MD PCP: Care Physician,No Primary Status: [facility] ER Study: Chest PA and Lateral Date of Exam: 09/19/24 Exam# [id number] Ordering Dr: Troy Monsalve KENO ATTENDANTFernieC [id number] EXAM: XR CHEST, 2 VIEWS CLINICAL INDICATION: [...] CC: NIKHIL Monsalve; No Primary Care Physician Driver/Refuse Collector: Signed Normal [facility] Chloride measurementOrdered By: Troy Monsalve on 09-19-2024 Chloride [Moles/Vol] 103 mmol/L 98-107 [facility] Emergency Department Summary on 09-19-2024 Emergency Department Summary [facility] Medical Records Department [address] [place] [address] Emergency Department Summary 09/19/24 MR#: [id number] Acct: [id number] Name: MICHAEL MCNEILL SANTOS Rep #: [id number] : 1975 48 From: Julius Matthews DO PCP: Care Physician,No Primary Status:[facility] ER Location: ED HPI History of Present [...] lot today, he does work in the [employer]. Patient states he is now having more shortness of breath, cough and is here for evaluation. He denies any fever chills nausea or vomiting. [facility] Medical History Ankle fracture, left Bipolar disorder [...] 17 R (more content not included)... Normal [facility] Eosinophil percentageOrdered By: Troy Monsalve on 09-19-2024 Eosinophils/100 WBC (Bld) 7.1 % High 0-5 [facility] Erythrocyte distribution wid th ratioOrdered By: Troy Monsalve on 09-19-2024 Erythrocyte distribution width (RBC) [Ratio] 12.6 % 11.6-14.6 [facility] Erythrocyte distribution wid th standard deviationOrdered By: Troy Monsalve on 09-19-2024 Erythrocyte distribution width (RBC) [Entitic vol] 43.4 fL 35.1-43.9 [facility] Estimated glomerular filtrat ion rate (GFR) AmericanOrdered By: Troy Monsalve on 09-19-2024 Estimated GFR (MDRD) Amer 142 mL/min >60 [facility] Comment on above: GFR Calc Estimation of creatinine akbar aranceOrdered By: Troy Monsalve on 09-19-2024 Estimated Creatinine Clearance Calc 112.61 ml/min [facility] Glomerular filtration rate ( GFR) estimationOrdered By: Troy Monsalve on 09-19-2024 Estimated GFR (MDRD) Non-Af Amer 118 mL/min >60 [facility] Comment on above: Non- GFR Calc Glucose measurementOrdered B y: Troy Monsalve on 09-19-2024 Glucose [Mass/Vol] 101 mg/dL 74-106 [facility] Comment on above: Fasting Glucose resu lt from 100 to 125 mg/dL suggests IMPAIRED HOMEOSTASIS per A.D.A. criteria. Hematocrit Auto (Bld) [Volum e fraction]Ordered By: Troy Monsalve on 09-19-2024 Hematocrit (Bld) [Volume fraction] 43.7 % 40-54 [facility] Hemoglobin measurementOrdere d By: Troy Monsalve on 09-19-2024 Hemoglobin (Bld) [Mass/Vol] 14.5 g/dL 13.0-16.5 [facility] Immature granulocytes/100 WB C Auto (Bld)Ordered By: Troy Monsalve on 09-19-2024 Immature granulocytes/100 WBC (Bld) 0.300 % 0.0-0.9 [facility] Comment on above: IG% - Immature Granu locytes (promyelocytes, myelocytes and metamyelocytes) > 1% indicates that a LEFT SHIFT is Present. Lymphocytes Auto (Unsp spec) [#/Vol]Ordered By: Troy Monsalve on 09-19-2024 Lymphocytes (Bld) [#/Vol] 1.48 10*3/uL 0.83-4.51 [facility] Lymphocytes/100 WBC Auto (Un sp spec)Ordered By: Troy Monsalve on 09-19-2024 Lymphocytes/100 WBC (Bld) 16.2 % Low 19-41 [facility] MCV (mean corpuscular volume ) determinationOrdered By: Troy Monsalve on 09-19-2024 MCV (RBC) [Entitic vol] 94.6 fL High 80-94 [facility] Mean corpuscular hemoglobin (MCH) determinationOrdered By: Troy Monsalve on 09-19-2024 MCH (RBC) [Entitic mass] 31.4 pg 27.0-32.0 [facility] Mean corpuscular hemoglobin concentration (MCHC) determinationOrdered By: Troy Monsalve on 09-19-2024 MCHC (RBC) [Mass/Vol] 33.2 g/dL 32-36 [facility] Mean platelet volume determi nationOrdered By: Troy Monsalve on 09-19-2024 Platelet mean volume (Bld) [Entitic vol] 9.4 fL 6.2-12.0 [facility] Monocyte percentageOrdered B y: Troy Monsalve on 09-19-2024 Monocytes/100 WBC (Bld) 6.6 % 0-10 [facility] Neutrophil percentageOrdered By: Troy Monsalve on 09-19-2024 Neutrophils/100 WBC (Bld) 68.8 % 47-70 [facility] Nucleated red blood cell per centageOrdered By: Troy Monsalve on 09-19-2024 Nucleated RBC/100 WBC (Bld) [Ratio] 0 % 0-5 [facility] Platelet countOrdered By: Malia Monsalve on 09-19-2024 Platelets (Bld) [#/Vol] 302 10*3/uL 150-450 [facility] Potassium measurementOrdered By: Troy Monsalve on 09-19-2024 Potassium [Moles/Vol] 4.1 mmol/L 3.5-5.1 [facility] RBC Auto (Bld) [#/Vol]Ordere d By: Troy Monsalve on 09-19-2024 RBC (Bld) [#/Vol] 4.62 10*6/uL 4.6-6.2 [facility] Serum anion gap measurementO rdered By: Troy Monsalve on 09-19-2024 Anion gap [Moles/Vol] 3 mmol/L Low 5-15 [facility] Serum or plasma calcium micah urement (mass/volume)Ordered By: Troy Monsalve on 09-19-2024 Calcium [Mass/Vol] 9.2 mg/dL 8.5-10.1 [facility] Serum or plasma creatinine m easurement (mass/volume)Ordered By: Troy Monsalve on 09-19-2024 Creatinine [Mass/Vol] 0.75 mg/dL 0.70-1.30 [facility] Comment on above: The validity of the calculated GFR & GFRAA in patients over 70 years has not been determined. Clinical correlation is essential. Serum or plasma urea nitroge n measurement (mass/volume)Ordered By: Troy Monsalve on 09-19-2024 Urea nitrogen [Mass/Vol] 18 mg/dL 7-18 [facility] Sodium levelOrdered By: Troy Monsalve on 09-19-2024 Sodium [Moles/Vol] 137 mmol/L 136-145 [facility] White blood cell (WBC) count Ordered By: Troy Monsalve on 09-19-2024 WBC (Bld) [#/Vol] 9.1 10*3/uL 4.4-11.0 [facility] 12 Lead EKGon 09-07-2024 12 Lead EKG [facility] Cardiovascular Services [address] [place] [address] 12 Lead EKG 09/07/24 1205 MR#: [id number] Acct: [id number] Name: MICHAEL MCNEILL SANTOS Rep #: [id number] : 1975 48 From: Peña Martinez MD [...] Otherwise normal ECG Confirmed by Peña Martinez ([id number]), dictionary editor PEBBLES FELICIANO ([id number]) on 09/09/2024 6:58:28 AM Referred By: Confirmed By: Peña Martinez 09/09/24 0658 Date Peña Martinez MD CC: Dr. Julius Matthews, DO; No Primary Care Physician Signed Normal [facility] Absolute neutrophil countOrd ered By: Julius Matthews on 09-07-2024 Neutrophils (Bld) [#/Vol] 3.2 10*3/uL 2.0-7.7 [facility] Basic Metabolic Profile (BMP )on 09-07-2024 BUN/CRE 21.6 RATIO High 10-20 [facility] Comment on above: Order Comment: 'TROP ' Serial specimen #1, #2 or #3: 1 Performed By: #### L 501.9985 #### [facility] Laboratory [address] [place], [address] CA,Total 9.1 mg/dL Normal 8.5-10.1 [facility] Comment on above: Order Comment: 'TROP ' Serial specimen #1, #2 or #3: 1 Performed By: #### L 501.9985 #### [facility] Laboratory [address] [place], [address] Chloride [Moles/Vol] 109 mmol/L High 98-107 [facility] Comment on above: Order Comment: 'TROP ' Serial specimen #1, #2 or #3: 1 Performed By: #### L 501.9985 #### [facility] Laboratory [address] [place], [address] CO2 [Moles/Vol] 28.0 mmol/L Normal 21.0-32.0 [facility] Comment on above: Order Comment: 'TROP ' Serial specimen #1, #2 or #3: 1 Performed By: #### L 501.9985 #### [facility] Laboratory [address] [place], [address] Creatinine [Mass/Vol] 0.83 mg/dL Normal 0.70-1.30 [facility] Comment on above: Order Comment: 'TROP ' Serial specimen #1, #2 or #3: 1 Result Comment: The validity of the calculated GFR GFRAA in patients over 70 years has not been determined. Clinical correlation is essential. Performed By: #### L 501.9985 #### [facility] Laboratory [address] [place], [address] ECRCL 91.48 ml/min Normal [facility] Comment on above: Order Comment: 'TROP ' Serial specimen #1, #2 or #3: 1 Performed By: #### L 501.9985 #### [facility] Laboratory [address] [place], [address] EST GFR - AA 126 mL/min Normal >60 [facility] Comment on above: Order Comment: 'TROP ' Serial specimen #1, #2 or #3: 1 Result Comment: Afri can Azerbaijani GFR Calc Performed By: #### L 501.9985 #### [facility] Laboratory [address] [place], [address] GAP 4 Low 5-15 [facility] Comment on above: Order Comment: 'TROP ' Serial specimen #1, #2 or #3: 1 Performed By: #### L 501.9985 #### [facility] Laboratory [address] [place], [address] GFR/1.73 sq M.predicted among non-blacks MDRD (S/P/Bld) [Vol rate/Area] 105 mL/min/{1.73_m2} Normal >60 [facility] Comment on above: Order Comment: 'TROP ' Serial specimen #1, #2 or #3: 1 Result Comment: Non- GFR Calc Performed By: #### L 501.9985 #### [facility] Laboratory [address] [place], [address] Glucose [Mass/Vol] 105 mg/dL Normal 74-106 [facility] Comment on above: Order Comment: 'TROP ' Serial specimen #1, #2 or #3: 1 Result Comment: Fast ing Glucose result from 100 to 125 mg/dL suggests IMPAIRED HOMEOSTASIS per A.D.A. criteria. Performed By: #### L 501.9985 #### [facility] Laboratory [address] [place], [address] Potassium [Moles/Vol] 3.8 mmol/L Normal 3.5-5.1 [facility] Comment on above: Order Comment: 'TROP ' Serial specimen #1, #2 or #3: 1 Performed By: #### L 501.9985 #### [facility] Laboratory [address] [place], [address] Sodium [Moles/Vol] 142 mmol/L Normal 136-145 [facility] Comment on above: Order Comment: 'TROP ' Serial specimen #1, #2 or #3: 1 Performed By: #### L 501.9985 #### [facility] Laboratory [address] [place], [address] Urea nitrogen [Mass/Vol] 18 mg/dL Normal 7-18 [facility] Comment on above: Order Comment: 'TROP ' Serial specimen #1, #2 or #3: 1 Performed By: #### L 501.9985 #### [facility] Laboratory [address] [place], [address] Basophil percentageOrdered B y: Julius Matthews on 09-07-2024 Basophils/100 WBC (Bld) 0.9 % 0-1 [facility] Blood urea nitrogen (BUN)/cr eatinine ratioOrdered By: Julius Matthews on 09-07-2024 Urea nitrogen/Creatinine [Mass ratio] 21.6 mg/mg High 10-20 [facility] CBC W/Diff, Automatedon Absolute Lymph 1.14 X10 3/uL Normal 0.83-4.51 [facility] Comment on above: Performed By: #### L 501.9985 #### [facility] Laboratory [address] [place], [address] Absolute Neut 3.2 X10 3/uL Normal 2.0-7.7 [facility] Comment on above: Performed By: #### L 501.9985 #### [facility] Laboratory [address] [place], [address] Basophils/100 WBC (Bld) 0.9 % Normal 0-1 [facility] Comment on above: Performed By: #### L 501.9985 #### [facility] Laboratory [address] [place], [address] Eosinophils/100 WBC (Bld) 11.8 % High 0-5 [facility] Comment on above: Performed By: #### L 501.9985 #### [facility] Laboratory [address] [place], [address] Erythrocyte distribution width (RBC) [Ratio] 12.5 % Normal 11.6-14.6 [facility] Comment on above: Performed By: #### L 501.9985 #### [facility] Laboratory [address] [place], [address] Hematocrit (Bld) [Volume fraction] 41.1 % Normal 40-54 [facility] Comment on above: Performed By: #### L 501.9985 #### [facility] Laboratory [address] [place], [address] Hemoglobin (Bld) [Mass/Vol] 13.8 g/dL Normal 13.0-16.5 [facility] Comment on above: Performed By: #### L 501.9985 #### [facility] Laboratory [address] [place], [address] IG% 0.400 Normal 0.0-0.9 [facility] Comment on above: Result Comment: IG% - Immature Granulocytes (promyelocytes, myelocytes and metamyelocytes) > 1% indicates that a LEFT SHIFT is Present. Performed By: #### L 501.9985 #### [facility] Laboratory [address] [place], [address] Lymphocytes/100 WBC (Bld) 21.1 % Normal 19-41 [facility] Comment on above: Performed By: #### L 501.9985 #### [facility] Laboratory [address] [place], [address] MCH (RBC) [Entitic mass] 31.8 pg Normal 27.0-32.0 [facility] Comment on above: Performed By: #### L 501.9985 #### [facility] Laboratory [address] [place], [address] MCHC (RBC) [Mass/Vol] 33.6 g/dL Normal 32-36 [facility] Comment on above: Performed By: #### L 501.9985 #### [facility] Laboratory [address] [place], [address] MCV (RBC) [Entitic vol] 94.7 fL High 80-94 [facility] Comment on above: Performed By: #### L 501.9985 #### [facility] Laboratory [address] [place], [address] Monocytes/100 WBC (Bld) 7.4 % Normal 0-10 [facility] Comment on above: Performed By: #### L 501.9985 #### [facility] Laboratory [address] [place], [address] Neutrophils/100 WBC (Bld) 58.4 % Normal 47-70 [facility] Comment on above: Performed By: #### L 501.9985 #### [facility] Laboratory [address] [place], [address] Nucleated RBC (Bld) [#/Vol] 0 10*3/uL Normal 0-5 [facility] Comment on above: Performed By: #### L 501.9985 #### [facility] Laboratory [address] [place], [address] Platelet mean volume (Bld) [Entitic vol] 9.3 fL Normal 6.2-12.0 [facility] Comment on above: Performed By: #### L 501.9985 #### [facility] Laboratory [address] [place], [address] Platelets (Bld) [#/Vol] 327 10*3/uL Normal 150-450 [facility] Comment on above: Performed By: #### L 501.9985 #### [facility] Laboratory [address] [place], [address] RBC (Bld) [#/Vol] 4.34 10*6/uL Low 4.6-6.2 [facility] Comment on above: Performed By: #### L 501.9985 #### [facility] Laboratory [address] [place], [address] RDW SD 43.4 fl Normal 35.1-43.9 [facility] Comment on above: Performed By: #### L 501.9985 #### [facility] Laboratory [address] [place], [address] WBC (Bld) [#/Vol] 5.4 10*3/uL Normal 4.4-11.0 [facility] Comment on above: Performed By: #### L 501.9985 #### [facility] Laboratory [address] [place], [address] Carbon dioxide measurementOr dered By: Julius Matthews on 09-07-2024 CO2 [Moles/Vol] 28.0 mmol/L 21.0-32.0 [facility] Chest 1 View (Portable)on Chest 1 View (Portable) [facility] Imaging Services [address] [place] [address] Chest 1 View (Portable) MR#: [id number] Acct: [id number] Name: MICHAEL MCNEILL SANTOS Rep #: [id number] : 1975 M 48 From: Darinel Stewart MD PCP: Care Physician,No Primary Status: REG ER Study: Chest 1 View (Portable) Date of Exam: 09/07/24 Exam# [id number] Ordering [place]: [place] [id number] STUDY: X-RAY CHEST REASON FOR EXAM: Male, [...] Julius Matthews DO; No Primary Care Physician Driver/Refuse Collector: Signed Normal [facility] Chloride measurementOrdered By: Julius Matthews on 09-07-2024 Chloride [Moles/Vol] 109 mmol/L High 98-107 [facility] Emergency Department Summary on 09-07-2024 Emergency Department Summary [facility] Medical Records Department [address] [place] [address] Emergency Department Summary 09/07/24 MR#: [id number] Acct: [id number] Name: MICHAEL MCNEILL SANTOS Rep #: [id number] : 1975 48 From: Julius Matthews DO PCP: Care Physician,No Primary Status:DEP ER Location: ED HPI History of Present Illness Chief Complaint: Shortness of Breath PFSH PFSH Medical History Ankle fracture, left Bipolar disorder [...] 98 99 Oxygen Delivery Method Room Air [facility] Narrative Medical decision making narrative: HISTORY OF [...] XII intact (more content not included)... Normal [facility] Eosinophil percentageOrdered By: Julius Matthews on 09-07-2024 Eosinophils/100 WBC (Bld) 11.8 % High 0-5 [facility] Erythrocyte distribution wid th ratioOrdered By: Julius Matthews on 09-07-2024 Erythrocyte distribution width (RBC) [Ratio] 12.5 % 11.6-14.6 [facility] Erythrocyte distribution wid th standard deviationOrdered By: Julius Matthews on 09-07-2024 Erythrocyte distribution width (RBC) [Entitic vol] 43.4 fL 35.1-43.9 [facility] Estimated glomerular filtrat ion rate (GFR) AmericanOrdered By: Julius Matthews on 09-07-2024 Estimated GFR (MDRD) Amer 126 mL/min >60 [facility] Comment on above: GFR Calc Estimation of creatinine akbar aranceOrdered By: Julius Matthews on 09-07-2024 Estimated Creatinine Clearance Calc 91.48 ml/min [facility] Glomerular filtration rate ( GFR) estimationOrdered By: Julius Matthews on 09-07-2024 Estimated GFR (MDRD) Non-Af Amer 105 mL/min >60 [facility] Comment on above: Non- GFR Calc Glucose measurementOrdered B y: Julius Matthews on 09-07-2024 Glucose [Mass/Vol] 105 mg/dL 74-106 [facility] Comment on above: Fasting Glucose resu lt from 100 to 125 mg/dL suggests IMPAIRED HOMEOSTASIS per A.D.A. criteria. Hematocrit Auto (Bld) [Volum e fraction]Ordered By: Julius Matthews on 09-07-2024 Hematocrit (Bld) [Volume fraction] 41.1 % 40-54 [facility] Hemoglobin measurementOrdere d By: Julius Matthews on 09-07-2024 Hemoglobin (Bld) [Mass/Vol] 13.8 g/dL 13.0-16.5 [facility] Immature granulocytes/100 WB C Auto (Bld)Ordered By: Julius Matthews on 09-07-2024 Immature granulocytes/100 WBC (Bld) 0.400 % 0.0-0.9 [facility] Comment on above: IG% - Immature Granu locytes (promyelocytes, myelocytes and metamyelocytes) > 1% indicates that a LEFT SHIFT is Present. Influenza virus A and B and SARS-CoV-2 (COVID-19) and Respiratory syncytial virus RNAOrdered By: Julius Matthews on 09-07-2024 SARS-CoV-2 (COVID-19) RNA WES+probe Ql (Unsp spec) [facility] L501.4020on 09-07-2024 TROPONIN-I HS 6 pg/mL Normal 3.0-78.0 [facility] Comment on above: Order Comment: 'TROP ' Serial specimen #1, #2 or #3: 1 Result Comment: Nahomi aparicio Note: New Test Units and Gender Specific Reference Ranges. For more information see Policy Stat Procedure Veteran High Sensitivity Troponin (TNIH) and attachments. Performed By: #### L 501.9985 #### [facility] Laboratory [address] [place], [place], [address] Lymphocytes Auto (Unsp spec) [#/Vol]Ordered By: Julius Matthews on 09-07-2024 Lymphocytes (Bld) [#/Vol] 1.14 10*3/uL 0.83-4.51 [facility] Lymphocytes/100 WBC Auto (Un sp spec)Ordered By: Julius Matthews on 09-07-2024 Lymphocytes/100 WBC (Bld) 21.1 % 19-41 [facility] M100.678on 09-07-2024 M100.678 Pending SARS-CoV-2 (COVID 19) Negative INFLUENZA A Negative INFLUENZA B Negative RSV PCR Negative Normal [facility] Comment on above: Performed By: #### L 501.4021 #### [facility] Laboratory [address] [place], [place], [address] MCV (mean corpuscular volume ) determinationOrdered By: Julius Matthews on 09-07-2024 MCV (RBC) [Entitic vol] 94.7 fL High 80-94 [facility] Mean corpuscular hemoglobin (MCH) determinationOrdered By: Julius Matthews on 09-07-2024 MCH (RBC) [Entitic mass] 31.8 pg 27.0-32.0 [facility] Mean corpuscular hemoglobin concentration (MCHC) determinationOrdered By: Julius Matthews on 09-07-2024 MCHC (RBC) [Mass/Vol] 33.6 g/dL 32-36 [facility] Mean platelet volume determi nationOrdered By: Julius Matthews on 09-07-2024 Platelet mean volume (Bld) [Entitic vol] 9.3 fL 6.2-12.0 [facility] Monocyte percentageOrdered B y: Julius Matthews on 09-07-2024 Monocytes/100 WBC (Bld) 7.4 % 0-10 [facility] Neutrophil percentageOrdered By: Julius Matthews on 09-07-2024 Neutrophils/100 WBC (Bld) 58.4 % 47-70 [facility] Nucleated red blood cell per centageOrdered By: Julius Matthews on 09-07-2024 Nucleated RBC/100 WBC (Bld) [Ratio] 0 % 0-5 [facility] Platelet countOrdered By: Benitez Matthews on 09-07-2024 Platelets (Bld) [#/Vol] 327 10*3/uL 150-450 [facility] Potassium measurementOrdered By: Julius Matthews on 09-07-2024 Potassium [Moles/Vol] 3.8 mmol/L 3.5-5.1 [facility] RBC Auto (Bld) [#/Vol]Ordere d By: Julius Matthews on 09-07-2024 RBC (Bld) [#/Vol] 4.34 10*6/uL Low 4.6-6.2 [facility] Serum anion gap measurementO rdered By: Julius Matthews on 09-07-2024 Anion gap [Moles/Vol] 4 mmol/L Low 5-15 [facility] Serum or plasma calcium micah urement (mass/volume)Ordered By: Julius Matthews on 09-07-2024 Calcium [Mass/Vol] 9.1 mg/dL 8.5-10.1 [facility] Serum or plasma creatinine m easurement (mass/volume)Ordered By: Julius Matthews on 09-07-2024 Creatinine [Mass/Vol] 0.83 mg/dL 0.70-1.30 [facility] Comment on above: The validity of the calculated GFR & GFRAA in patients over 70 years has not been determined. Clinical correlation is essential. Serum or plasma urea nitroge n measurement (mass/volume)Ordered By: Julius Matthews on 09-07-2024 Urea nitrogen [Mass/Vol] 18 mg/dL 7-18 [facility] Sodium levelOrdered By: Connie Matthews on 09-07-2024 Sodium [Moles/Vol] 142 mmol/L 136-145 [facility] Troponin IOrdered By: Julius Matthews on 09-07-2024 Troponin I High Sensitivity 6 pg/mL 3.0-78.0 [facility] Comment on above: Please Note: New Rubi t Units and Gender Specific Reference Ranges. For more information see Policy Stat Procedure Veteran High Sensitivity Troponin (TNIH) and attachments. White blood cell (WBC) count Ordered By: Julius Matthews on 09-07-2024 WBC (Bld) [#/Vol] 5.4 10*3/uL 4.4-11.0 [facility] Emergency Department Summary on 08-04-2024 Emergency Department Summary [facility] Medical Records Department [address] [place] [address] Emergency Department Summary 08/04/24 MR#: [id number] Acct: [id number] Name: MICHAEL MCNEILL SANTOS Rep #: [id number] : 1975 48 From: Andrew Henning DO [...] pain and therefore comes in for evaluation [facility] Medical History Ankle fracture, left Bipolar disorder [...] potential for (more content not included)... Normal [facility] Foot min 3 Viewson 4 Foot min 3 Views [facility] Imaging Services [address] [place], [place] [id number] Foot min 3 Views MR#: [id number] Acct: [id number] Name: MICHAEL MCNEILL SANTOS Rep #: [id number] : 1975 M 48 From: Barber Grace MD PCP: Care Physician,No Primary Status: [facility] ER Study: Foot min 3 Views Date of Exam: 08/03/24 Exam# [id number] Ordering [place]: [place] [id number] INDICATION: pain / ? FB EXAMINATION/TECHNIQUE: X-RAY [...] Andrew Henning DO; No Primary Care Physician Driver/Refuse Collector: Signed Normal [facility] Emergency Department Summary on 06-03-2024 Emergency Department Summary [facility] Medical Records Department [address] [place] [address] Emergency Department Summary 06/03/24 MR#: [id number] Acct: [id number] Name: MICHAEL MCNEILL SANTOS Rep #: [id number] : 1975 48 From: Andrew Henning DO [...] admission and therefore comes in for evaluation [facility] Medical History Ankle fracture, left Bipolar disorder Depression Anxiety Past history of chewing tobacco use Asthma with COPD Anxiety and depression Inguinal hernia bilateral, non-recurrent Hypertension Stroke/cerebrovascular accident Alcohol abuse Methamphetamine abuse Bulla of lung GERD (gastroesophageal reflux disease) Home Medications ???Medication ???Instructions ???Recorded ???Last Taken ???Type albuterol sulfate 90 mcg/actuation 1 - 2 puff inhalation Q4H PRN PRN 12/09/22 Unknown Rx aerosol inhaler (Ventolin HFA) Wheezing [...] 4 mg PO TID PRN nausea and 06/03/24 Unknown Rx tablet vomiting #21 tabs Allergy/AdvReac [...] pulsatile mass (more content not included)... Normal [facility] Emergency Department Summary on 06-02-2024 Emergency Department Summary [facility] Medical Records Department [address] [place] [address] Emergency Department Summary 06/02/24 MR#: [id number] Acct: [id number] Name: MICHAEL MCNEILL SANTOS Rep #: [id number] : 1975 48 From: Maximilian Bernstein DO PCP: Care Physician,No Primary Status:DEP ER Location: ED HPI History of Present Illness Chief Complaint: Rash Informant: patient Narrative Narrative: 48-year-old male presenting to the emergency room with bilateral arm rash. Patient states that about 3 days ago he awoke in [place] at a homeless [facility] and he had itchy bumps over the [...] He denies any IV drug use currently. [facility] Medical History Ankle fracture, left Bipolar disorder [...] grossly normal (more content not included)... Normal [facility] Absolute lymphocyte countOrd ered By: Tae Walsh on 10-29-2023 Lymphocytes Auto (Unsp spec) [#/Vol] 1.38 10*3/uL 0.83-4.51 [facility] Automated lymphocyte count a s percentage of total leukocytesOrdered By: Tae Walsh on 10-29-2023 Lymphocytes/100 WBC Auto (Unsp spec) 14.6 % 19-41 [facility] Basophil percentageOrdered B y: Alisha White on 10-29-2023 Basophil percentage 4.9 mg/dL 2.5-4.9 [facility] Basophil percentageOrdered B y: Tae Walsh on 10-29-2023 Basophils/100 WBC (Bld) 0.6 % 0-1 [facility] Bilirubin [Mass/Vol] 0.60 mg/dL 0.20-1.00 [facility] Comment on above: For patients on eltr ombopag therapy, use of Dimension Veteran TBIL is not recommended. Chloride [Moles/Vol] 100 mmol/L 98-107 [facility] Eosinophils/100 WBC (Bld) 1.6 % 0-5 [facility] Glucose [Mass/Vol] 82 mg/dL 74-106 [facility] Hemoglobin (Bld) [Mass/Vol] 14.5 g/dL 13.0-16.5 [facility] Monocytes/100 WBC (Bld) 4.0 % 0-10 [facility] Neutrophils (Bld) [#/Vol] 7.4 10*3/uL 2.0-7.7 [facility] Neutrophils/100 WBC (Bld) 78.9 % 47-70 [facility] Potassium [Moles/Vol] 4.0 mmol/L 3.5-5.1 [facility] Protein [Mass/Vol] 8.3 g/dL 6.4-8.2 [facility] Sodium [Moles/Vol] 133 mmol/L 136-145 [facility] WBC (Bld) [#/Vol] 9.4 10*3/uL 4.4-11.0 [facility] Determination of erythrocyte mean corpuscular volume (MCV)Ordered By: Tae Walsh on 10-29-2023 MCV (RBC) [Entitic vol] 93.4 fL 80-94 [facility] Erythrocyte distribution wid th ratioOrdered By: Tae Walsh on 10-29-2023 Erythrocyte distribution width (RBC) [Ratio] 12.4 % 11.6-14.6 [facility] Erythrocyte distribution wid th standard deviationOrdered By: Taelacey Walsh on 10-29-2023 Erythrocyte distribution width (RBC) [Entitic vol] 43.0 fL 35.1-43.9 [facility] Hematocrit Auto (Bld) [Volum e fraction]Ordered By: Taelacey Walsh on 10-29-2023 Hematocrit (Bld) [Volume fraction] 44.1 % 40-54 [facility] Immature granulocytes/100 WB C Auto (Bld)Ordered By: Taelacey Walsh on 10-29-2023 Immature granulocytes/100 WBC (Bld) 0.300 % 0.0-0.9 [facility] Comment on above: IG% - Immature Granu locytes (promyelocytes, myelocytes and metamyelocytes) > 1% indicates that a LEFT SHIFT is Present. Laboratory - Chemistry and C hemistry - challengeOrdered By: Tae Walsh on 10-29-2023 Albumin/Globulin [Mass ratio] 1.0 {ratio} 0.9-2.4 [facility] ALP [Catalytic activity/Vol] 59 U/L 45-117 [facility] ALT [Catalytic activity/Vol] 37 U/L 16-61 [facility] CO2 [Moles/Vol] 27.0 mmol/L 21.0-32.0 [facility] Globulin (S) [Mass/Vol] 4.1 g/dL 2.2-4.2 [facility] Urea nitrogen/Creatinine [Mass ratio] 21.0 mg/mg 10-20 [facility] Laboratory - Chemistry and C hemistry - challengeOrdered By: Alisha Mcintyre on 10-29-2023 Magnesium [Mass/Vol] 2.3 mg/dL 1.6-2.6 [facility] Laboratory - Drug toxicology Ordered By: Tae Walsh on 10-29-2023 Amphetamines Ql (U) Positive <1000 ng/mL [facility] Benzodiazepines Ql (U) Negative < 200 ng/mL [facility] Cannabinoids Screen Ql (U) Negative < 50 ng/mL [facility] Cocaine Ql (U) Negative < 300 ng/mL [facility] Opiates Ql (U) Negative < 300 ng/mL [facility] Laboratory - Hematology and Cell countsOrdered By: Tae Walsh on 10-29-2023 MCH (RBC) [Entitic mass] 30.7 pg 27.0-32.0 [facility] MCHC (RBC) [Mass/Vol] 32.9 g/dL 32-36 [facility] Nucleated RBC/100 WBC (Bld) [Ratio] 0 % 0-5 [facility] Platelets (Bld) [#/Vol] 338 10*3/uL 150-450 [facility] No Panel InformationOrdered By: Tae Walsh on 10-29-2023 MDMA (Ecstasy) Screen Positive < 500 ng/mL [facility] Urine Barbiturates Screen Negative < 200 ng/mL [facility] Urine Drug Screen Comment [facility] Comment on above: CONFIRMATORY TESTING FOR ALL [...] Methadone Screen Negative < 300 ng/mL [facility] Estimated Creatinine Clearance Calc 92.52 ml/min [facility] Estimated GFR (MDRD) Amer 123 mL/min >60 [facility] Comment on above: GFR Calc Estimated GFR (MDRD) Non-Af Amer 102 mL/min >60 [facility] Comment on above: Non- GFR Calc Ethyl Alcohol Level 5.0 mg/dL [facility] Comment on above: The serum:whole bloo [...] volume (Bld) [Entitic vol] 9.2 fL 6.2-12.0 [facility] RBC Auto (Bld) [#/Vol]Ordere d By: Tae Walsh on 10-29-2023 RBC (Bld) [#/Vol] 4.72 10*6/uL 4.6-6.2 [facility] Serum or plasma calcium micah urement (mass/volume)Ordered By: Tae Walsh on 10-29-2023 Calcium [Mass/Vol] 9.8 mg/dL 8.5-10.1 [facility] Serum or plasma creatinine m easurement (mass/volume)Ordered By: Tae Walsh on 10-29-2023 Creatinine [Mass/Vol] 0.86 mg/dL 0.70-1.30 [facility] Comment on above: The validity of the calculated GFR & GFRAA in patients over 70 years has not been determined. Clinical correlation is essential. Serum or plasma urea nitroge n measurement (mass/volume)Ordered By: Tae Walsh on 10-29-2023 Urea nitrogen [Mass/Vol] 18 mg/dL 7-18 [facility] Thin prep Papanicolaou smear with manual screeningOrdered By: Tae Walsh on 10-29-2023 Thin prep Papanicolaou smear with manual screening 4.2 g/dL 3.2-5.0 [facility] Thin prep Papanicolaou smear with manual screening 31 U/L 15-37 [facility] Thin prep Papanicolaou smear with manual screening 6 5-15 [facility] Urine phencyclidine (PCP) de tectionOrdered By: Tae Walsh on 10-29-2023 Phencyclidine Ql (U) Negative < 25 ng/mL [facility] CNCOon 09-06-2023 CNCO Letter Text Normal [facility] CNOVon 08-28-2023 NEMESIOOV Office Visit (SWS ) MICHAEL MCNEILL ([id number]) 1975 M Date Time Provider Department 08/28/23 [...] Mammogram screening? N/A Last Colonoscopy: NONE FRANCESCA Duran Linda Marie, MD 08/28/2023 10:53 AM Signed Bowel Preparation [...] If you do not have a responsible automobile drivers (family member or friend) with you to [...] 3350 a (more content not included)... Normal [facility] [place] 08-28-2023 [facility] MICHAEL MCNEILL ([id number]) 1975 M CPA Date Time Provider Department 08/28/23 LINDA JOSE During your visit today, we recorded the following information about you: Vida Perez 08/28/2023 11:16 AM Signed 09/05/2023 [facility]/13[facility]2023 9:07 AM Signed Received call from [facility] in regards to patient not being able to be contacted. Number listed for patient rings twice then shows busy. Emergency contact listed is inactive. Will keep trying. Patient scheduled for hernia surgery with Dr. Jose in [place] on 10/03/2023. Colonoscopy was cancelled earlier this month. Vida Perez Please advise [facility] Vida Perez 09/19/2023 4:15 PM Signed Office and [facility] unable to reach patient to go over surgery information and schedule PAT prior to surgery as patients number and emergency contacts number has been disconnected Surgery message sent to [place] to cancel surgery as of now Vida Perez [employer] Allergies As of Date: 08/28/2023 Noted Allergy Reaction SEASONAL ALLERGIES 08/26/2023 16 - Unknown Date Reviewed: 08/28/2023 Reviewed by: Katherine Biggs, RN - Fully Assessed Reason for Visit: 09/05/2023 [facility] [Other] Prescriptions as of 08/06/2024 - OLANZapine (ZYPREXA) 5 mg tablet Take 5 mg by mouth daily at bedtime. Problem List As Of Date: 08/28/2023 (None) Encounter Status:Closed by BRODERICK JEAN BAPTISTE on 08/06/24 [facility] [place] 08-26-2023 CNOV Office Visit (WSTR ) MICHAEL MCNEILL ([id number]) 1975 M Date Time Provider Department 08/26/23 9:45 AM HENRI HURLEY During your visit today, we recorded the following information about you: Temperature Pulse Respiration Blood pressure 98.3 degrees 80/minute 22/minute 133/82 Weight 68 kg Henri Hurley APRN.CNP 08/26/2023 11:44 AM Signed Subjective HPI HPI Michael Mcneill is a [...] - CONSULT TO GENERAL SURGERY Henri Hurley APRN.CNP Referring Provider: SELF [200] Allergies As of Date: 08/26/2023 Noted Allergy Reaction SEASONAL ALLERGIES 08/26/2023 16 - Unknown Date Reviewed: 08/26/2023 Reviewed by: Henri Hurley APRN.CNP - Fully Assessed Reason for Visit: Mass [64] Cmt: Right side above testicle for some years pain on and off Primary Visit Diagnosis:Unilateral inguinal hernia without obstruction or gangrene, recurrence not specified [K40.90] Order(s):CONSULT TO GENERAL SURGERY [9069] Order #: [id number]: 1 FUTURE Prescriptions as of 08/26/2023 - OLANZapine (ZYPREXA) 5 mg tablet Take 5 mg by mouth daily at bedtime. Problem List As Of Date: 08/26/2023 (None) Encounter Status:Closed by HENRI HURLEY on 08/26/23 [facility] Absolute lymphocyte countOrd ered By: Graham Messina on 04-26-2023 Lymphocytes Auto (Unsp spec) [#/Vol] 1.11 10*3/uL 0.83-4.51 [facility] Basophil percentageOrdered B y: Alisha White on 04-26-2023 Basophil percentage 3.7 mg/dL 2.5-4.9 [facility] Basophil percentageOrdered B y: Graham Mayuri on 04-26-2023 Basophils/100 WBC (Bld) 0.8 % 0-1 [facility] Bilirubin [Mass/Vol] 0.40 mg/dL 0.20-1.00 [facility] Comment on above: For patients on eltr ombopag therapy, use of Dimension Veteran TBIL is not recommended. Chloride [Moles/Vol] 107 mmol/L 98-107 [facility] Eosinophils/100 WBC (Bld) 14.7 % 0-5 [facility] Glucose [Mass/Vol] 98 mg/dL 74-106 [facility] Neutrophils (Bld) [#/Vol] 2.8 10*3/uL 2.0-7.7 [facility] Neutrophils/100 WBC (Bld) 56.3 % 47-70 [facility] Potassium [Moles/Vol] 4.0 mmol/L 3.5-5.1 [facility] Protein [Mass/Vol] 7.4 g/dL 6.4-8.2 [facility] Sodium [Moles/Vol] 139 mmol/L 136-145 [facility] WBC (Bld) [#/Vol] 5.0 10*3/uL 4.4-11.0 [facility] Blood erythrocytes count (nu mber/volume)Ordered By: Graham Messina on 04-26-2023 RBC (Bld) [#/Vol] 4.12 10*6/uL 4.6-6.2 [facility] Blood hemoglobin measurement (mass/volume)Ordered By: Graham Messina on 04-26-2023 Hemoglobin (Bld) [Mass/Vol] 12.8 g/dL 13.0-16.5 [facility] Blood lymphocytes/100 leukoc ytesOrdered By: Graham Messina on 04-26-2023 Lymphocytes/100 WBC (Bld) 22.0 % 19-41 [facility] Blood monocytes/100 leukocyt esOrdered By: Graham Messina on 04-26-2023 Monocytes/100 WBC (Bld) 6.0 % 0-10 [facility] Blood platelet mean volumeOr dered By: Graham Messina on 04-26-2023 Platelet mean volume (Bld) [Entitic vol] 8.7 fL 6.2-12.0 [facility] Determination of erythrocyte mean corpuscular volume (MCV)Ordered By: Graham Messina on 04-26-2023 MCV (RBC) [Entitic vol] 94.4 fL 80-94 [facility] HIV 1 and HIV-2 antibody ass ay with HIV-1 p24 antigen detectionOrdered By: Alisha Mcintyre on 04-26-2023 HIV 1+2 Ab+HIV1 p24 Ag IA Ql Non-Reactive Nonreactive [facility] Hematocrit Auto (Bld) [Volum e fraction]Ordered By: Graham Messina on 04-26-2023 Hematocrit (Bld) [Volume fraction] 38.9 % 40-54 [facility] Laboratory - Chemistry and C hemistry - challengeOrdered By: Graham Messina on 04-26-2023 ALP [Catalytic activity/Vol] 51 U/L 45-117 [facility] ALT [Catalytic activity/Vol] 43 U/L 16-61 [facility] CO2 [Moles/Vol] 29.0 mmol/L 21.0-32.0 [facility] Globulin (S) [Mass/Vol] 3.9 g/dL 2.2-4.2 [facility] Urea nitrogen/Creatinine [Mass ratio] 23.9 mg/mg 10-20 [facility] Laboratory - Chemistry and C hemistry - challengeOrdered By: Alisha Mcintyre on 04-26-2023 Magnesium [Mass/Vol] 2.0 mg/dL 1.6-2.6 [facility] Laboratory - Drug toxicology Ordered By: Graham Messina on 04-26-2023 Amphetamines Ql (U) Positive <1000 ng/mL [facility] Benzodiazepines Ql (U) Negative < 200 ng/mL [facility] Cannabinoids Screen Ql (U) Negative < 50 ng/mL [facility] Cocaine Ql (U) Negative < 300 ng/mL [facility] Opiates Ql (U) Negative < 300 ng/mL [facility] Laboratory - Hematology and Cell countsOrdered By: Graham Messina on 04-26-2023 Erythrocyte distribution width (RBC) [Entitic vol] 43.1 fL 35.1-43.9 [facility] Erythrocyte distribution width (RBC) [Ratio] 12.5 % 11.6-14.6 [facility] Immature granulocytes/100 WBC (Bld) 0.200 % 0.0-0.9 [facility] Comment on above: IG% - Immature Granu locytes (promyelocytes, myelocytes and metamyelocytes) > 1% indicates that a LEFT SHIFT is Present. MCH (RBC) [Entitic mass] 31.1 pg 27.0-32.0 [facility] Nucleated RBC/100 WBC (Bld) [Ratio] 0 % 0-5 [facility] MCHC Auto (RBC) [Mass/Vol]Or dered By: Graham Messina on 04-26-2023 MCHC (RBC) [Mass/Vol] 32.9 g/dL 32-36 [facility] No Panel InformationOrdered By: Graham Messina on 04-26-2023 MDMA (Ecstasy) Screen Positive < 500 ng/mL [facility] Urine Barbiturates Screen Negative < 200 ng/mL [facility] Urine Drug Screen Comment [facility] Comment on above: CONFIRMATORY TESTING FOR ALL [...] Methadone Screen Negative < 300 ng/mL [facility] Estimated Creatinine Clearance Calc 84.16 ml/min [facility] Estimated GFR (MDRD) Amer 119 mL/min >60 [facility] Comment on above: GFR Calc Estimated GFR (MDRD) Non-Af Amer 99 mL/min >60 [facility] Comment on above: Non- GFR Calc Ethyl Alcohol Level < 3.0 mg/dL [facility] Comment on above: The serum:whole bloo d ethanol ratio is approximately 1.14and varies slightly with hematocrit. Medical Alcohol reference interval and critical value innon-tolerant individuals; 50 - 100 Impairment 100 Intoxication 100 - 250 Severe Poisoning 250 - 400 Deep/possible fatal coma No Panel InformationOrdered By: Alisha Mcintyre on 04-26-2023 Hepatitis B Surface Antigen Non-Reactive Nonreactive [facility] Hepatitis C Antibody Preliminary Reactive Nonre active [facility] Comment on above: Critical Result(s) C alled at: 22:54:59 04/26/2023 by: Kia Bergman. Results read back by same. Non Reactive: < 0.8 Equivocal: >/= 0.8 to < 1.0 Reactive: >/= 1.0The CDC recommends that a reactive/equivocal HCV antibody result be followed up by the HCV Nucleic Acid Amplificationtest (021440) Miscellaneous Test See comment [facility] Comment on above: TEST RESULT LIMITSHC V RNA Diagnosis, WES HCV RNA, Quantitation 8460 IU/mL HCV RNA detected HCV RNA viral loads >/= 25 IU/mL indicate current HCV infection. HCV RNA, log10 3.927 log10 IU/mLTest Information: The quantitative range of this assay is 15 IU/mL to 100 million IU/mL. TESTING PERFORMED AT [facility]. ORIGINAL REPORT ON FILE IN LAB CONTAINS ADDITIONAL TEST SITE INFORMATION. Platelets bldOrdered By: Valentine Messina on 04-26-2023 Platelets (Bld) [#/Vol] 273 10*3/uL 150-450 [facility] Serum Treponema species anti body detectionOrdered By: Alisha Mcintyre on 04-26-2023 Treponema sp Ab Ql (S) Non-Reactive [facility] Serum hepatitis B virus [place] antibody IgG detectionOrdered By: Alisha Mcintyre on 04-26-2023 HBV surface IgG Ql (S) Reactive [facility] Comment on above: Non Reactive: Incons istent with immunity less than <10 mIU/mL Reactive: Consistent with immunity greater than or equal to 10 mIU/mL Serum or plasma albumin micah urement (mass/volume)Ordered By: Graham Messina on 04-26-2023 Albumin [Mass/Vol] 3.5 g/dL 3.2-5.0 [facility] Serum or plasma albumin/glob ulin mass ratioOrdered By: Graham Messina on 04-26-2023 Albumin/Globulin [Mass ratio] 0.9 {ratio} 0.9-2.4 [facility] Serum or plasma calcium micah urement (mass/volume)Ordered By: Graham Messina on 04-26-2023 Calcium [Mass/Vol] 8.9 mg/dL 8.5-10.1 [facility] Serum or plasma creatinine m easurement (mass/volume)Ordered By: Graham Messina on 04-26-2023 Creatinine [Mass/Vol] 0.88 mg/dL 0.70-1.30 [facility] Comment on above: The validity of the calculated GFR & GFRAA in patients over 70 years has not been determined. Clinical correlation is essential. Serum or plasma urea nitroge n measurement (mass/volume)Ordered By: Graham Messina on 04-26-2023 Urea nitrogen [Mass/Vol] 21 mg/dL 7-18 [facility] Thin prep Papanicolaou smear with manual screeningOrdered By: Graham Messina on 04-26-2023 Thin prep Papanicolaou smear with manual screening 26 U/L 15-37 [facility] Thin prep Papanicolaou smear with manual screening 3 5-15 [facility] Urine phencyclidine (PCP) de tectionOrdered By: Graham Messina on 04-26-2023 Phencyclidine Ql (U) Negative < 25 ng/mL [facility] Absolute lymphocyte countOrd ered By: Dr. De Anda on 12-23-2022 Lymphocytes Auto (Unsp spec) [#/Vol] 1.21 10*3/uL 0.83-4.51 [facility] Basophil percentageOrdered B y: Dr. Mcintyre on 12-23-2022 Basophil percentage 3.5 mg/dL 2.5-4.9 [facility] Basophil percentageOrdered B y: Dr. De Anda on 12-23-2022 Basophils/100 WBC (Bld) 0.7 % 0-1 [facility] Bilirubin [Mass/Vol] 0.30 mg/dL 0.20-1.00 [facility] Comment on above: For patients on eltr ombopag therapy, use of Dimension Veteran TBIL is not recommended. Chloride [Moles/Vol] 105 mmol/L 98-107 [facility] Eosinophils/100 WBC (Bld) 7.0 % 0-5 [facility] Glucose [Mass/Vol] 114 mg/dL 74-106 [facility] Comment on above: Fasting Glucose resu lt from 100 to 125 mg/dL suggests IMPAIRED HOMEOSTASIS per A.D.A. criteria. Neutrophils (Bld) [#/Vol] 4.8 10*3/uL 2.0-7.7 [facility] Neutrophils/100 WBC (Bld) 69.3 % 47-70 [facility] Potassium [Moles/Vol] 3.5 mmol/L 3.5-5.1 [facility] Protein [Mass/Vol] 7.4 g/dL 6.4-8.2 [facility] Sodium [Moles/Vol] 139 mmol/L 136-145 [facility] WBC (Bld) [#/Vol] 7.0 10*3/uL 4.4-11.0 [facility] Blood erythrocytes count (nu mber/volume)Ordered By: Dr. De Anda on 12-23-2022 RBC (Bld) [#/Vol] 4.09 10*6/uL 4.6-6.2 [facility] Blood hemoglobin measurement (mass/volume)Ordered By: Dr. De Anda on 12-23-2022 Hemoglobin (Bld) [Mass/Vol] 12.6 g/dL 13.0-16.5 [facility] Blood lymphocytes/100 leukoc ytesOrdered By: Dr. De Anda on 12-23-2022 Lymphocytes/100 WBC (Bld) 17.4 % 19-41 [facility] Blood monocytes/100 leukocyt esOrdered By: Dr. De Anda on 12-23-2022 Monocytes/100 WBC (Bld) 5.3 % 0-10 [facility] Blood platelet mean volumeOr dered By: Dr. De Anda on 12-23-2022 Platelet mean volume (Bld) [Entitic vol] 9.0 fL 6.2-12.0 [facility] Determination of erythrocyte mean corpuscular volume (MCV)Ordered By: Dr. De Anda on 12-23-2022 MCV (RBC) [Entitic vol] 92.2 fL 80-94 [facility] Hematocrit Auto (Bld) [Volum e fraction]Ordered By: Dr. De Anda on 12-23-2022 Hematocrit (Bld) [Volume fraction] 37.7 % 40-54 [facility] Iron measurement (mass/mass) Ordered By: Dr. Mcintyre on 12-23-2022 Iron (Unsp spec) [Mass/Mass] 57 ug/dL 65-175 [facility] Laboratory - Chemistry and C hemistry - challengeOrdered By: Dr. De Anda on 12-23-2022 ALP [Catalytic activity/Vol] 48 U/L 45-117 [facility] ALT [Catalytic activity/Vol] 67 U/L 16-61 [facility] CO2 [Moles/Vol] 25.0 mmol/L 21.0-32.0 [facility] Globulin (S) [Mass/Vol] 3.9 g/dL 2.2-4.2 [facility] Urea nitrogen/Creatinine [Mass ratio] 35.4 mg/mg 10-20 [facility] Laboratory - Chemistry and C hemistry - challengeOrdered By: Dr. Mcintyre on 12-23-2022 Cobalamin (Vitamin B12) [Mass/Vol] 589 pg/mL 211-911 [facility] Magnesium [Mass/Vol] 2.2 mg/dL 1.6-2.6 [facility] Laboratory - Drug toxicology Ordered By: Dr. De Anda on 12-23-2022 Amphetamines Ql (U) Positive <1000 ng/mL [facility] Benzodiazepines Ql (U) Negative < 200 ng/mL [facility] Cannabinoids Screen Ql (U) Negative < 50 ng/mL [facility] Cocaine Ql (U) Negative < 300 ng/mL [facility] Opiates Ql (U) Negative < 300 ng/mL [facility] Laboratory - Hematology and Cell countsOrdered By: Dr. De Anda on 12-23-2022 Erythrocyte distribution width (RBC) [Entitic vol] 42.5 fL 35.1-43.9 [facility] Erythrocyte distribution width (RBC) [Ratio] 12.6 % 11.6-14.6 [facility] Immature granulocytes/100 WBC (Bld) 0.300 % 0.0-0.9 [facility] Comment on above: IG% - Immature Granu locytes (promyelocytes, myelocytes and metamyelocytes) > 1% indicates that a LEFT SHIFT is Present. MCH (RBC) [Entitic mass] 30.8 pg 27.0-32.0 [facility] Nucleated RBC/100 WBC (Bld) [Ratio] 0 % 0-5 [facility] MCHC Auto (RBC) [Mass/Vol]Or dered By: Dr. De Anda on 12-23-2022 MCHC (RBC) [Mass/Vol] 33.4 g/dL 32-36 [facility] No Panel InformationOrdered By: Dr. De Anda on 12-23-2022 Estimated Creatinine Clearance Calc 93.74 ml/min [facility] Estimated GFR (MDRD) Amer 130 mL/min >60 [facility] Comment on above: GFR Calc Estimated GFR (MDRD) Non-Af Amer 107 mL/min >60 [facility] Comment on above: Non- GFR Calc Ethyl Alcohol Level 25.0 mg/dL [facility] Comment on above: The serum:whole bloo d ethanol ratio is approximately 1.14and varies slightly with hematocrit. Medical Alcohol reference interval and critical value innon-tolerant individuals; 50 - 100 Impairment 100 Intoxication 100 - 250 Severe Poisoning 250 - 400 Deep/possible fatal coma MDMA (Ecstasy) Screen Positive < 500 ng/mL [facility] Urine Barbiturates Screen Negative < 200 ng/mL [facility] Urine Drug Screen Comment [facility] Comment on above: CONFIRMATORY TESTING FOR ALL [...] Methadone Screen Negative < 300 ng/mL [facility] No Panel InformationOrdered By: Dr. Mcintyre on 12-23-2022 Total Iron Binding Capacity 335 ug/dL 250-450 [facility] Platelets bldOrdered By: Dr. De Anda on 12-23-2022 Platelets (Bld) [#/Vol] 285 10*3/uL 150-450 [facility] Serum or plasma albumin micah urement (mass/volume)Ordered By: Dr. De Anda on 12-23-2022 Albumin [Mass/Vol] 3.5 g/dL 3.2-5.0 [facility] Serum or plasma albumin/glob ulin mass ratioOrdered By: Dr. De Anda on 12-23-2022 Albumin/Globulin [Mass ratio] 0.9 {ratio} 0.9-2.4 [facility] Serum or plasma calcium micah urement (mass/volume)Ordered By: Dr. De Anda on 12-23-2022 Calcium [Mass/Vol] 8.8 mg/dL 8.5-10.1 [facility] Serum or plasma creatinine m easurement (mass/volume)Ordered By: Dr. De Anda on 12-23-2022 Creatinine [Mass/Vol] 0.82 mg/dL 0.70-1.30 [facility] Comment on above: The validity of the calculated GFR & GFRAA in patients over 70 years has not been determined. Clinical correlation is essential. Serum or plasma ferritin luisito surement (mass/volume)Ordered By: Dr. Mcintyre on 12-23-2022 Ferritin [Mass/Vol] 27 ng/mL 26-388 [facility] Serum or plasma folate measu rement (mass/volume)Ordered By: Dr. Mcintyre on 12-23-2022 Folate [Mass/Vol] 16.10 ng/mL 3.1-55.4 [facility] Serum or plasma iron saturat ion measurement (mass fraction)Ordered By: Dr. Mcintyre on 12-23-2022 Iron saturation [Mass fraction] 17.0 % 15.0-55.0 [facility] Serum or plasma urea nitroge n measurement (mass/volume)Ordered By: Dr. De Anda on 12-23-2022 Urea nitrogen [Mass/Vol] 29 mg/dL 7-18 [facility] Thin prep Papanicolaou smear with manual screeningOrdered By: Dr. De Anda on 12-23-2022 Thin prep Papanicolaou smear with manual screening 49 U/L 15-37 [facility] Thin prep Papanicolaou smear with manual screening 9 5-15 [facility] Urine phencyclidine (PCP) de tectionOrdered By: Dr. De Anda on 12-23-2022 Phencyclidine Ql (U) Negative < 25 ng/mL [facility] Absolute lymphocyte countOrd ered By: Dr. Nieves on 11-03-2022 Lymphocytes Auto (Unsp spec) [#/Vol] 1.20 10*3/uL 0.83-4.51 [facility] Basophil percentageOrdered B y: Dr. Nieves on 11-03-2022 Basophils/100 WBC (Bld) 0.7 % 0-1 [facility] Chloride [Moles/Vol] 107 mmol/L 98-107 [facility] Eosinophils/100 WBC (Bld) 10.8 % 0-5 [facility] Glucose [Mass/Vol] 152 mg/dL 74-106 [facility] Comment on above: Fasting Glucose resu lt greater than or equal to 126 mg/dL suggests DIABETES MELLITUS per A.D.A. criteria. Neutrophils (Bld) [#/Vol] 3.5 10*3/uL 2.0-7.7 [facility] Neutrophils/100 WBC (Bld) 60.9 % 47-70 [facility] Potassium [Moles/Vol] 3.6 mmol/L 3.5-5.1 [facility] Sodium [Moles/Vol] 140 mmol/L 136-145 [facility] WBC (Bld) [#/Vol] 5.7 10*3/uL 4.4-11.0 [facility] Blood erythrocytes count (nu mber/volume)Ordered By: Dr. Nieves on 11-03-2022 RBC (Bld) [#/Vol] 3.80 10*6/uL 4.6-6.2 [facility] Blood hemoglobin measurement (mass/volume)Ordered By: Dr. Nieves on 11-03-2022 Hemoglobin (Bld) [Mass/Vol] 11.8 g/dL 13.0-16.5 [facility] Blood lymphocytes/100 leukoc ytesOrdered By: Dr. Nieves on 11-03-2022 Lymphocytes/100 WBC (Bld) 20.9 % 19-41 [facility] Blood monocytes/100 leukocyt esOrdered By: Dr. Nieves on 11-03-2022 Monocytes/100 WBC (Bld) 6.5 % 0-10 [facility] Blood platelet mean volumeOr dered By: Dr. Nievse on 11-03-2022 Platelet mean volume (Bld) [Entitic vol] 8.6 fL 6.2-12.0 [facility] Determination of erythrocyte mean corpuscular volume (MCV)Ordered By: Dr. Nieves on 11-03-2022 MCV (RBC) [Entitic vol] 93.2 fL 80-94 [facility] Hematocrit Auto (Bld) [Volum e fraction]Ordered By: Dr. Nieves on 11-03-2022 Hematocrit (Bld) [Volume fraction] 35.4 % 40-54 [facility] Laboratory - Chemistry and C hemistry - challengeOrdered By: Dr. Nieves on 11-03-2022 CO2 [Moles/Vol] 29.0 mmol/L 21.0-32.0 [facility] Urea nitrogen/Creatinine [Mass ratio] 27.6 mg/mg 10-20 [facility] Laboratory - Hematology and Cell countsOrdered By: Dr. Nieves on 11-03-2022 Erythrocyte distribution width (RBC) [Entitic vol] 43.3 fL 35.1-43.9 [facility] Erythrocyte distribution width (RBC) [Ratio] 12.6 % 11.6-14.6 [facility] Immature granulocytes/100 WBC (Bld) 0.200 % 0.0-0.9 [facility] Comment on above: IG% - Immature Granu locytes (promyelocytes, myelocytes and metamyelocytes) > 1% indicates that a LEFT SHIFT is Present. MCH (RBC) [Entitic mass] 31.1 pg 27.0-32.0 [facility] Nucleated RBC/100 WBC (Bld) [Ratio] 0 % 0-5 [facility] MCHC Auto (RBC) [Mass/Vol]Or dered By: Dr. Nieves on 11-03-2022 MCHC (RBC) [Mass/Vol] 33.3 g/dL 32-36 [facility] No Panel InformationOrdered By: Dr. Nieves on 11-03-2022 Estimated Creatinine Clearance Calc 88.52 ml/min [facility] Estimated GFR (MDRD) Amer 115 mL/min >60 [facility] Comment on above: GFR Calc Estimated GFR (MDRD) Non-Af Amer 95 mL/min >60 [facility] Comment on above: Non- GFR Calc Platelets bldOrdered By: Dr. Nieves on 11-03-2022 Platelets (Bld) [#/Vol] 321 10*3/uL 150-450 [facility] Serum or plasma calcium micah urement (mass/volume)Ordered By: Dr. Nieves on 11-03-2022 Calcium [Mass/Vol] 8.6 mg/dL 8.5-10.1 [facility] Serum or plasma creatinine m easurement (mass/volume)Ordered By: Dr. Nieves on 11-03-2022 Creatinine [Mass/Vol] 0.91 mg/dL 0.70-1.30 [facility] Comment on above: The validity of the calculated GFR & GFRAA in patients over 70 years has not been determined. Clinical correlation is essential. Serum or plasma urea nitroge n measurement (mass/volume)Ordered By: Dr. Nieves on 11-03-2022 Urea nitrogen [Mass/Vol] 25 mg/dL 7-18 [facility] Thin prep Papanicolaou smear with manual screeningOrdered By: Dr. Nieves on 11-03-2022 Thin prep Papanicolaou smear with manual screening 4 5-15 [facility] Influenza virus A and B and SARS-CoV-2 (COVID-19) Ag panel - Upper respiratory specimOrdered By: Dr. Messina on 09-05-2022 SARS-CoV-2 & FLU Antigen (Rapid) Influenzae A [facility] COVID-19 virus antigen assay Ordered By: Dr. Garcia on 07-26-2022 SARS-CoV-2 (COVID-19) Ag IA.rapid Ql (Resp) [facility] Absolute lymphocyte countOrd ered By: Dr. Hess on 07-15-2022 Lymphocytes Auto (Unsp spec) [#/Vol] 1.71 10*3/uL 0.83-4.51 [facility] Basophil percentageOrdered B y: Dr. Mcintyre on 07-15-2022 Basophil percentage 3.5 mg/dL 2.5-4.9 [facility] Bilirubin [Mass/Vol] 0.40 mg/dL 0.20-1.00 [facility] Comment on above: For patients on eltr ombopag therapy, use of [employer]ension [employer] TBIL is not recommended. Protein [Mass/Vol] 8.5 g/dL 6.4-8.2 [facility] Basophil percentageOrdered B y: Dr. Hess on 07-15-2022 Basophils/100 WBC (Bld) 0.8 % 0-1 [facility] Chloride [Moles/Vol] 108 mmol/L 98-107 [facility] Eosinophils/100 WBC (Bld) 6.0 % 0-5 [facility] Glucose [Mass/Vol] 85 mg/dL 74-106 [facility] Neutrophils (Bld) [#/Vol] 3.6 10*3/uL 2.0-7.7 [facility] Neutrophils/100 WBC (Bld) 59.1 % 47-70 [facility] Potassium [Moles/Vol] 3.8 mmol/L 3.5-5.1 [facility] Sodium [Moles/Vol] 142 mmol/L 136-145 [facility] WBC (Bld) [#/Vol] 6.1 10*3/uL 4.4-11.0 [facility] Blood erythrocytes count (nu mber/volume)Ordered By: Dr. Hess on 07-15-2022 RBC (Bld) [#/Vol] 4.38 10*6/uL 4.6-6.2 [facility] Blood hemoglobin measurement (mass/volume)Ordered By: Dr. Hess on 07-15-2022 Hemoglobin (Bld) [Mass/Vol] 13.8 g/dL 13.0-16.5 [facility] Blood lymphocytes/100 leukoc ytesOrdered By: Dr. Hess on 07-15-2022 Lymphocytes/100 WBC (Bld) 27.9 % 19-41 [facility] Blood monocytes/100 leukocyt esOrdered By: Dr. Hess on 07-15-2022 Monocytes/100 WBC (Bld) 6.0 % 0-10 [facility] Blood platelet mean volumeOr dered By: Dr. Hess on 07-15-2022 Platelet mean volume (Bld) [Entitic vol] 8.9 fL 6.2-12.0 [facility] Determination of erythrocyte mean corpuscular volume (MCV)Ordered By: Dr. Hess on 07-15-2022 MCV (RBC) [Entitic vol] 93.6 fL 80-94 [facility] Direct bilirubinOrdered By: Dr. Mcintyre on 07-15-2022 Bilirubin.direct [Mass/Vol] 0.11 mg/dL 0.00-0.30 [facility] Hematocrit Auto (Bld) [Volum e fraction]Ordered By: Dr. Hess on 07-15-2022 Hematocrit (Bld) [Volume fraction] 41.0 % 40-54 [facility] Laboratory - Chemistry and C hemistry - challengeOrdered By: Dr. Mcintyre on 07-15-2022 ALP [Catalytic activity/Vol] 54 U/L 45-117 [facility] ALT [Catalytic activity/Vol] 63 U/L 16-61 [facility] Globulin (S) [Mass/Vol] 4.4 g/dL 2.2-4.2 [facility] Magnesium [Mass/Vol] 2.3 mg/dL 1.6-2.6 [facility] Laboratory - Chemistry and C hemistry - challengeOrdered By: Dr. Hess on 07-15-2022 CO2 [Moles/Vol] 28.0 mmol/L 21.0-32.0 [facility] Urea nitrogen/Creatinine [Mass ratio] 24.8 mg/mg 10-20 [facility] Laboratory - Drug toxicology Ordered By: Dr. Hess on 07-15-2022 Amphetamines Ql (U) Positive <1000 ng/mL [facility] Benzodiazepines Ql (U) Negative < 200 ng/mL [facility] Cannabinoids Screen Ql (U) Positive < 50 ng/mL [facility] Cocaine Ql (U) Negative < 300 ng/mL [facility] Opiates Ql (U) Negative < 300 ng/mL [facility] Laboratory - Hematology and Cell countsOrdered By: Dr. Hess on 07-15-2022 Erythrocyte distribution width (RBC) [Entitic vol] 43.1 fL 35.1-43.9 [facility] Erythrocyte distribution width (RBC) [Ratio] 12.5 % 11.6-14.6 [facility] Immature granulocytes/100 WBC (Bld) 0.200 % 0.0-0.9 [facility] Comment on above: IG% - Immature Granu locytes (promyelocytes, myelocytes and metamyelocytes) > 1% indicates that a LEFT SHIFT is Present. MCH (RBC) [Entitic mass] 31.5 pg 27.0-32.0 [facility] Nucleated RBC/100 WBC (Bld) [Ratio] 0 % 0-5 [facility] MCHC Auto (RBC) [Mass/Vol]Or dered By: Dr. Hess on 07-15-2022 MCHC (RBC) [Mass/Vol] 33.7 g/dL 32-36 [facility] No Panel InformationOrdered By: Dr. Hess on 07-15-2022 MDMA (Ecstasy) Screen Positive < 500 ng/mL [facility] Urine Barbiturates Screen Negative < 200 ng/mL [facility] Urine Drug Screen Comment [facility] Comment on above: CONFIRMATORY TESTING FOR ALL [...] Methadone Screen Negative < 300 ng/mL [facility] Estimated Creatinine Clearance Calc 79.37 ml/min [facility] Estimated GFR (MDRD) Amer 107 mL/min >60 [facility] Comment on above: GFR Calc Estimated GFR (MDRD) Non-Af Amer 89 mL/min >60 [facility] Comment on above: Non- GFR Calc Ethyl Alcohol Level < 3.0 mg/dL [facility] Comment on above: The serum:whole bloo d ethanol ratio is approximately 1.14and varies slightly with hematocrit. Medical Alcohol reference interval and critical value innon-tolerant individuals; 50 - 100 Impairment 100 Intoxication 100 - 250 Severe Poisoning 250 - 400 Deep/possible fatal coma Platelets bldOrdered By: Dr. Hess on 07-15-2022 Platelets (Bld) [#/Vol] 289 10*3/uL 150-450 [facility] Serum or plasma albumin micah urement (mass/volume)Ordered By: Dr. Mcintyre on 07-15-2022 Albumin [Mass/Vol] 4.1 g/dL 3.2-5.0 [facility] Serum or plasma calcium micah urement (mass/volume)Ordered By: Dr. Hess on 07-15-2022 Calcium [Mass/Vol] 9.1 mg/dL 8.5-10.1 [facility] Serum or plasma creatinine m easurement (mass/volume)Ordered By: Dr. Hess on 07-15-2022 Creatinine [Mass/Vol] 0.97 mg/dL 0.70-1.30 [facility] Comment on above: The validity of the calculated GFR & GFRAA in patients over 70 years has not been determined. Clinical correlation is essential. Serum or plasma urea nitroge n measurement (mass/volume)Ordered By: Dr. Hess on 07-15-2022 Urea nitrogen [Mass/Vol] 24 mg/dL 7-18 [facility] Thin prep Papanicolaou smear with manual screeningOrdered By: Dr. Mcintyre on 07-15-2022 Thin prep Papanicolaou smear with manual screening 32 U/L 15-37 [facility] Thin prep Papanicolaou smear with manual screeningOrdered By: Dr. Hess on 07-15-2022 Thin prep Papanicolaou smear with manual screening 6 5-15 [facility] Urine phencyclidine (PCP) de tectionOrdered By: Dr. Hess on 07-15-2022 Phencyclidine Ql (U) Negative < 25 ng/mL [facility] Absolute lymphocyte counton 05-24-2022 Lymphocytes Auto (Unsp spec) [#/Vol] 1.23 10*3/uL 0.83-4.51 [facility] Work Phone: Basophil percentageon 2021 Basophils/100 WBC (Bld) 0.5 % 0-1 [facility] Work Phone: Bilirubin [Mass/Vol] 0.50 mg/dL 0.20-1.00 [facility] Work Phone: Comment on above: For patients on eltr ombopag therapy, use of [employer] TBIL is not recommended. Chloride [Moles/Vol] 107 mmol/L 98-107 [facility] Work Phone: Eosinophils/100 WBC (Bld) 6.2 % 0-5 [facility] Work Phone: Glucose [Mass/Vol] 117 mg/dL 74-106 [facility] Work Phone: Comment on above: Fasting Glucose resu lt from 100 to 125 mg/dL suggests IMPAIRED HOMEOSTASIS per A.D.A. criteria. Neutrophils (Bld) [#/Vol] 4.0 10*3/uL 2.0-7.7 [facility] Work Phone: Neutrophils/100 WBC (Bld) 67.5 % 47-70 [facility] Work Phone: Potassium [Moles/Vol] 3.8 mmol/L 3.5-5.1 [facility] Work Phone: Protein [Mass/Vol] 8.0 g/dL 6.4-8.2 [facility] Work Phone: Sodium [Moles/Vol] 140 mmol/L 136-145 [facility] Work Phone: WBC (Bld) [#/Vol] 6.0 10*3/uL 4.4-11.0 [facility] Work Phone: Blood erythrocytes count (nu mber/volume)on 05-24-2022 RBC (Bld) [#/Vol] 4.22 10*6/uL 4.6-6.2 [facility] Work Phone: Blood hemoglobin measurement (mass/volume)on 05-24-2022 Hemoglobin (Bld) [Mass/Vol] 13.1 g/dL 13.0-16.5 [facility] Work Phone: Blood lymphocytes/100 leukoc yteson 05-24-2022 Lymphocytes/100 WBC (Bld) 20.6 % 19-41 [facility] Work Phone: Blood monocytes/100 leukocyt eson 05-24-2022 Monocytes/100 WBC (Bld) 4.9 % 0-10 [facility] Work Phone: Blood platelet mean volumeon 05-24-2022 Platelet mean volume (Bld) [Entitic vol] 8.5 fL 6.2-12.0 [facility] Work Phone: Determination of erythrocyte mean corpuscular volume (MCV)on 05-24-2022 MCV (RBC) [Entitic vol] 91.0 fL 80-94 [facility] Work Phone: Hematocrit Auto (Bld) [Volum e fraction]on 05-24-2022 Hematocrit (Bld) [Volume fraction] 38.4 % 40-54 [facility] Work Phone: Laboratory - Chemistry and C hemistry - challengeon 05-24-2022 ALP [Catalytic activity/Vol] 57 U/L 45-117 [facility] Work Phone: ALT [Catalytic activity/Vol] 66 U/L 16-61 [facility] Work Phone: CO2 [Moles/Vol] 28.0 mmol/L 21.0-32.0 [facility] Work Phone: Globulin (S) [Mass/Vol] 4.2 g/dL 2.2-4.2 [facility] Work Phone: Urea nitrogen/Creatinine [Mass ratio] 21.8 mg/mg 10-20 [facility] Work Phone: Laboratory - Drug toxicology on 05-24-2022 Amphetamines Ql (U) Positive <1000 ng/mL [facility] Work Phone: Benzodiazepines Ql (U) Negative < 200 ng/mL [facility] Work Phone: Cannabinoids Screen Ql (U) Negative < 50 ng/mL [facility] Work Phone: Cocaine Ql (U) Negative < 300 ng/mL [facility] Work Phone: Opiates Ql (U) Positive < 300 ng/mL [facility] Work Phone: Laboratory - Hematology and Cell countson 05-24-2022 Erythrocyte distribution width (RBC) [Entitic vol] 41.7 fL 35.1-43.9 [facility] Work Phone: Erythrocyte distribution width (RBC) [Ratio] 12.8 % 11.6-14.6 [facility] Work Phone: Immature granulocytes/100 WBC (Bld) 0.300 % 0.0-0.9 [facility] Work Phone: Comment on above: IG% - Immature Granu locytes (promyelocytes, myelocytes and metamyelocytes) > 1% indicates that a LEFT SHIFT is Present. MCH (RBC) [Entitic mass] 31.0 pg 27.0-32.0 [facility] Work Phone: Nucleated RBC/100 WBC (Bld) [Ratio] 0 % 0-5 [facility] Work Phone: MCHC Auto (RBC) [Mass/Vol]on 05-24-2022 MCHC (RBC) [Mass/Vol] 34.1 g/dL 32-36 [facility] Work Phone: No Panel Informationon 05-24 MDMA (Ecstasy) Screen Positive < 500 ng/mL [facility] Work Phone: Urine Barbiturates Screen Negative < 200 ng/mL [facility] Work Phone: Urine Drug Screen Comment [facility] Work Phone: Comment on above: CONFIRMATORY TESTING [...] Methadone Screen Negative < 300 ng/mL [facility] Work Phone: Estimated Creatinine Clearance Calc 70.36 ml/min [facility] Work Phone: Estimated GFR (MDRD) Amer 102 mL/min >60 [facility] Work Phone: Comment on above: GFR Calc Estimated GFR (MDRD) Non-Af Amer 84 mL/min >60 [facility] Work Phone: Comment on above: Non- GFR Calc Ethyl Alcohol Level < 3.0 mg/dL [facility] Work Phone: Comment on above: The serum:whole bloo d ethanol ratio is approximately 1.14and varies slightly with hematocrit. Medical Alcohol reference interval and critical value innon-tolerant individuals; 50 - 100 Impairment 100 Intoxication 100 - 250 Severe Poisoning 250 - 400 Deep/possible fatal coma Platelets bldon 05-24-2022 Platelets (Bld) [#/Vol] 300 10*3/uL 150-450 [facility] Work Phone: Serum or plasma albumin micah urement (mass/volume)on 05-24-2022 Albumin [Mass/Vol] 3.8 g/dL 3.2-5.0 [facility] Work Phone: Serum or plasma albumin/glob ulin mass ratioon 05-24-2022 Albumin/Globulin [Mass ratio] 0.9 {ratio} 0.9-2.4 [facility] Work Phone: Serum or plasma calcium micah urement (mass/volume)on 05-24-2022 Calcium [Mass/Vol] 8.9 mg/dL 8.5-10.1 [facility] Work Phone: Serum or plasma creatinine m easurement (mass/volume)on 05-24-2022 Creatinine [Mass/Vol] 1.01 mg/dL 0.70-1.30 [facility] Work Phone: Comment on above: The validity of the calculated GFR & GFRAA in patients over 70 years has not been determined. Clinical correlation is essential. Serum or plasma urea nitroge n measurement (mass/volume)on 05-24-2022 Urea nitrogen [Mass/Vol] 22 mg/dL 7-18 [facility] Work Phone: Thin prep Papanicolaou smear with manual screeningon 05-24-2022 Thin prep Papanicolaou smear with manual screening 39 U/L 15-37 [facility] Work Phone: Thin prep Papanicolaou smear with manual screening 5 5-15 [facility] Work Phone: Urine phencyclidine (PCP) de tectionon 05-24-2022 Phencyclidine Ql (U) Negative < 25 ng/mL [facility] Work Phone: Absolute lymphocyte counton 03-28-2022 Lymphocytes Auto (Unsp spec) [#/Vol] 1.05 10*3/uL 0.83-4.51 [facility] Work Phone: Basophil percentageon 2021 Basophils/100 WBC (Bld) 0.3 % 0-1 [facility] Work Phone: Chloride [Moles/Vol] 101 mmol/L 98-107 [facility] Work Phone: Eosinophils/100 WBC (Bld) 5.9 % 0-5 [facility] Work Phone: Glucose [Mass/Vol] 95 mg/dL 74-106 [facility] Work Phone: Neutrophils (Bld) [#/Vol] 6.9 10*3/uL 2.0-7.7 [facility] Work Phone: Neutrophils/100 WBC (Bld) 76.5 % 47-70 [facility] Work Phone: [phone] Potassium [Moles/Vol] 3.8 mmol/L 3.5-5.1 [facility] Work [facility]: Sodium [Moles/Vol] 136 mmol/L 136-145 [facility] Work Phone: WBC (Bld) [#/Vol] 9.0 10*3/uL 4.4-11.0 [facility] Work Phone: [phone] Blood erythrocytes count (nu mber/volume)on 03-28-2022 RBC (Bld) [#/Vol] 4.54 10*6/uL 4.6-6.2 [facility] Work Phone: [phone] Blood hemoglobin measurement (mass/volume)on 03-28-2022 Hemoglobin (Bld) [Mass/Vol] 14.4 g/dL 13.0-16.5 [facility] Work Phone: Blood lymphocytes/100 leukoc yteson 03-28-2022 Lymphocytes/100 WBC (Bld) 11.7 % 19-41 [facility] Work Phone: Blood monocytes/100 leukocyt eson 06-27-2022 Monocytes/100 WBC (Bld) 5.3 % 0-10 [facility] Work Phone: Blood platelet mean volumeon 03-28-2022 Platelet mean volume (Bld) [Entitic vol] 9.0 fL 6.2-12.0 [facility] Work Phone: Determination of erythrocyte mean corpuscular volume (MCV)on 03-28-2022 MCV (RBC) [Entitic vol] 93.2 fL 80-94 [facility] Work Phone: Hematocrit Auto (Bld) [Volum e fraction]on 03-28-2022 Hematocrit (Bld) [Volume fraction] 42.3 % 40-54 [facility] Work Phone: Laboratory - Chemistry and C hemistry - challengeon 03-28-2022 CO2 [Moles/Vol] 29.0 mmol/L 21.0-32.0 [facility] Work Phone: Urea nitrogen/Creatinine [Mass ratio] 23.5 mg/mg 10-20 [facility] Work Phone: Laboratory - Hematology and Cell countson 03-28-2022 Erythrocyte distribution width (RBC) [Entitic vol] 41.4 fL 35.1-43.9 [facility] Work Phone: Erythrocyte distribution width (RBC) [Ratio] 12.0 % 11.6-14.6 [facility] Work Phone: Immature granulocytes/100 WBC (Bld) 0.300 % 0.0-0.9 [facility] Work Phone: Comment on above: IG% - Immature Granu locytes (promyelocytes, myelocytes and metamyelocytes) > 1% indicates that a LEFT SHIFT is Present. MCH (RBC) [Entitic mass] 31.7 pg 27.0-32.0 [facility] Work Phone: Nucleated RBC/100 WBC (Bld) [Ratio] 0 % 0-5 [facility] Work Phone: MCHC Auto (RBC) [Mass/Vol]on 03-28-2022 MCHC (RBC) [Mass/Vol] 34.0 g/dL 32-36 [facility] Work Phone: No Panel Informationon 03-28 Estimated Creatinine Clearance Calc 83.60 ml/min [facility] Work Phone: Estimated GFR (MDRD) Amer 125 mL/min >60 [facility] Work Phone: Comment on above: GFR Calc Estimated GFR (MDRD) Non-Af Amer 103 mL/min >60 [facility] Work Phone: Comment on above: Non- GFR Calc Platelets bldon 03-28-2022 Platelets (Bld) [#/Vol] 244 10*3/uL 150-450 [facility] Work Phone: Serum or plasma calcium micah urement (mass/volume)on 03-28-2022 Calcium [Mass/Vol] 8.5 mg/dL 8.5-10.1 [facility] Work Phone: Serum or plasma creatinine m easurement (mass/volume)on 03-28-2022 Creatinine [Mass/Vol] 0.85 mg/dL 0.70-1.30 [facility] Work Phone: Comment on above: The validity of the calculated GFR & GFRAA in patients over 70 years has not been determined. Clinical correlation is essential. Serum or plasma urea nitroge n measurement (mass/volume)on 03-28-2022 Urea nitrogen [Mass/Vol] 20 mg/dL 7-18 [facility] Work Phone: Thin prep Papanicolaou smear with manual screeningon 03-28-2022 Thin prep Papanicolaou smear with manual screening 6 5-15 [facility] Work Phone: Laboratory - Microbiology an d Antimicrobial susceptibilityon 03-26-2022 SARS-CoV-2 (COVID-19) RNA WES+probe Ql (Unsp spec) Not detected [facility] Work Phone: No Panel Informationon 03-26 Influenza Types A,B Rapid (Clinic) Not detected [facility] Work Phone: Absolute lymphocyte counton 03-19-2022 Lymphocytes Auto (Unsp spec) [#/Vol] 1.40 10*3/uL 0.83-4.51 [facility] Work Phone: Basophil percentageon 2021 Basophils/100 WBC (Bld) 0.9 % 0-1 [facility] Work Phone: Bilirubin [Mass/Vol] 0.40 mg/dL 0.20-1.00 [facility] Work Phone: Comment on above: For patients on eltr ombopag therapy, use of [employer] TBIL is not recommended. Chloride [Moles/Vol] 107 mmol/L 98-107 [facility] Work Phone: Eosinophils/100 WBC (Bld) 8.8 % 0-5 [facility] Work Phone: Glucose [Mass/Vol] 97 mg/dL 74-106 [facility] Work Phone: Neutrophils (Bld) [#/Vol] 3.4 10*3/uL 2.0-7.7 [facility] Work Phone: Neutrophils/100 WBC (Bld) 60.1 % 47-70 [facility] Work Phone: Potassium [Moles/Vol] 4.5 mmol/L 3.5-5.1 [facility] Work Phone: Comment on above: Moderate Hemolysis, Result may be falsely increased. Protein [Mass/Vol] 8.2 g/dL 6.4-8.2 [facility] Work Phone: Sodium [Moles/Vol] 139 mmol/L 136-145 [facility] Work Phone: WBC (Bld) [#/Vol] 5.7 10*3/uL 4.4-11.0 [facility] Work Phone: [phone] Blood erythrocytes count (nu mber/volume)on 03-19-2022 RBC (Bld) [#/Vol] 4.46 10*6/uL 4.6-6.2 [facility] Work Phone: Blood hemoglobin measurement (mass/volume)on 03-19-2022 Hemoglobin (Bld) [Mass/Vol] 13.9 g/dL 13.0-16.5 [facility] Work Phone: Blood lymphocytes/100 leukoc yteson 03-19-2022 Lymphocytes/100 WBC (Bld) 24.6 % 19-41 [facility] Work Phone: Blood monocytes/100 leukocyt eson 03-19-2022 Monocytes/100 WBC (Bld) 5.4 % 0-10 [facility] Work Phone: Blood platelet mean volumeon 03-19-2022 Platelet mean volume (Bld) [Entitic vol] 9.0 fL 6.2-12.0 [facility] Work Phone: Determination of erythrocyte mean corpuscular volume (MCV)on 03-19-2022 MCV (RBC) [Entitic vol] 92.8 fL 80-94 [facility] Work Phone: Hematocrit Auto (Bld) [Volum e fraction]on 03-19-2022 Hematocrit (Bld) [Volume fraction] 41.4 % 40-54 [facility] Work Phone: Laboratory - Chemistry and C hemistry - challengeon 03-19-2022 ALP [Catalytic activity/Vol] 61 U/L 45-117 [facility] Work Phone: ALT [Catalytic activity/Vol] 42 U/L 16-61 [facility] Work Phone: CO2 [Moles/Vol] 28.0 mmol/L 21.0-32.0 [facility] Work Phone: Globulin (S) [Mass/Vol] 4.5 g/dL 2.2-4.2 [facility] Work Phone: Urea nitrogen/Creatinine [Mass ratio] 33.6 mg/mg 10-20 [facility] Work Phone: Laboratory - Drug toxicology on 03-19-2022 Amphetamines Ql (U) Positive <1000 ng/mL [facility]: Benzodiazepines Ql (U) Negative < 200 ng/mL [facility] Work Phone: Cannabinoids Screen Ql (U) Negative < 50 ng/mL [facility] Work Phone: Cocaine Ql (U) Negative < 300 ng/mL [facility] Work Phone: Opiates Ql (U) Negative < 300 ng/mL [facility] Work Phone: Laboratory - Hematology and Cell countson 03-19-2022 Erythrocyte distribution width (RBC) [Entitic vol] 40.3 fL 35.1-43.9 [facility] Work Phone: Erythrocyte distribution width (RBC) [Ratio] 11.9 % 11.6-14.6 [facility] Work Phone: Immature granulocytes/100 WBC (Bld) 0.200 % 0.0-0.9 [facility] Work Phone: Comment on above: IG% - Immature Granu locytes (promyelocytes, myelocytes and metamyelocytes) > 1% indicates that a LEFT SHIFT is Present. MCH (RBC) [Entitic mass] 31.2 pg 27.0-32.0 [facility] Work Phone: Nucleated RBC/100 WBC (Bld) [Ratio] 0 % 0-5 [facility] Work Phone: MCHC Auto (RBC) [Mass/Vol]on 03-19-2022 MCHC (RBC) [Mass/Vol] 33.6 g/dL 32-36 [facility] Work Phone: No Panel Informationon 03-19 MDMA (Ecstasy) Screen Positive < 500 ng/mL [facility] Work Phone: Urine Barbiturates Screen Negative < 200 ng/mL [facility] Work Phone: Urine Drug Screen Comment [facility] Work Phone: Comment on above: CONFIRMATORY TESTING [...] Methadone Screen Negative < 300 ng/mL [facility] Work Phone: Estimated Creatinine Clearance Calc 83.73 ml/min [facility] Work Phone: Estimated GFR (MDRD) Amer 123 mL/min >60 [facility] Work Phone: Comment on above: GFR Calc Estimated GFR (MDRD) Non-Af Amer 101 mL/min >60 [facility] Work Phone: Comment on above: Non- GFR Calc Ethyl Alcohol Level 4.0 mg/dL [facility] Work Phone: Comment on above: The serum:whole bloo d ethanol ratio is approximately 1.14and varies slightly with hematocrit. Medical Alcohol reference interval and critical value innon-tolerant individuals; 50 - 100 Impairment 100 Intoxication 100 - 250 Severe Poisoning 250 - 400 Deep/possible fatal coma Platelets bldon 03-19-2022 Platelets (Bld) [#/Vol] 301 10*3/uL 150-450 [facility] Work Phone: Serum or plasma albumin micah urement (mass/volume)on 03-19-2022 Albumin [Mass/Vol] 3.7 g/dL 3.2-5.0 [facility] Work Phone: Serum or plasma albumin/glob ulin mass ratioon 03-19-2022 Albumin/Globulin [Mass ratio] 0.8 {ratio} 0.9-2.4 [facility] Work Phone: Serum or plasma calcium micah urement (mass/volume)on 03-19-2022 Calcium [Mass/Vol] 8.6 mg/dL 8.5-10.1 [facility] Work Phone: Serum or plasma creatinine m easurement (mass/volume)on 03-19-2022 Creatinine [Mass/Vol] 0.86 mg/dL 0.70-1.30 [facility] Work Phone: Comment on above: The validity of the calculated GFR & GFRAA in patients over 70 years has not been determined. Clinical correlation is essential. Serum or plasma urea nitroge n measurement (mass/volume)on 03-19-2022 Urea nitrogen [Mass/Vol] 29 mg/dL 7-18 [facility] Work Phone: Thin prep Papanicolaou smear with manual screeningon 03-19-2022 Thin prep Papanicolaou smear with manual screening 33 U/L 15-37 [facility] Work Phone: Comment on above: Moderate Hemolysis, Result may be falsely increased. Thin prep Papanicolaou smear with manual screening 4 5-15 [facility] Work Phone: Urine phencyclidine (PCP) de tectionon 03-19-2022 Phencyclidine Ql (U) Negative < 25 ng/mL [facility] Work Phone: Absolute lymphocyte counton 02-12-2022 Lymphocytes Auto (Unsp spec) [#/Vol] 1.09 10*3/uL 0.83-4.51 [facility] Work Phone: Basophil percentageon 2021 Basophils/100 WBC (Bld) 0.7 % 0-1 [facility] Work Phone: Chloride [Moles/Vol] 108 mmol/L 98-107 [facility] Work Phone: Eosinophils/100 WBC (Bld) 6.1 % 0-5 [facility] Work Phone: Glucose [Mass/Vol] 96 mg/dL 74-106 [facility] Work Phone: Neutrophils (Bld) [#/Vol] 2.8 10*3/uL 2.0-7.7 [facility] Work Phone: Neutrophils/100 WBC (Bld) 60.8 % 47-70 [facility] Work Phone: Potassium [Moles/Vol] 3.8 mmol/L 3.5-5.1 [facility] Work Phone: Sodium [Moles/Vol] 141 mmol/L 136-145 [facility] Work Phone: WBC (Bld) [#/Vol] 4.6 10*3/uL 4.4-11.0 [facility] Work Phone: Blood erythrocytes count (nu mber/volume)on 02-12-2022 RBC (Bld) [#/Vol] 4.09 10*6/uL 4.6-6.2 [facility]: Blood hemoglobin measurement (mass/volume)on 02-12-2022 Hemoglobin (Bld) [Mass/Vol] 13.2 g/dL 13.0-16.5 [facility] Work Phone: Blood lymphocytes/100 leukoc yteson 02-12-2022 Lymphocytes/100 WBC (Bld) 23.9 % 19-41 [facility] Work Phone: Blood monocytes/100 leukocyt eson 02-12-2022 Monocytes/100 WBC (Bld) 8.1 % 0-10 [facility] Work Phone: Blood platelet mean volumeon 02-12-2022 Platelet mean volume (Bld) [Entitic vol] 8.7 fL 6.2-12.0 [facility] Work Phone: Determination of erythrocyte mean corpuscular volume (MCV)on 02-12-2022 MCV (RBC) [Entitic vol] 94.4 fL 80-94 [facility] Work Phone: Hematocrit Auto (Bld) [Volum e fraction]on 02-12-2022 Hematocrit (Bld) [Volume fraction] 38.6 % 40-54 [facility] Work Phone: Laboratory - Chemistry and C hemistry - challengeon 02-12-2022 CO2 [Moles/Vol] 27.0 mmol/L 21.0-32.0 [facility] Work Phone: Urea nitrogen/Creatinine [Mass ratio] 25.9 mg/mg 10-20 [facility] Work Phone: Laboratory - Hematology and Cell countson 02-12-2022 Erythrocyte distribution width (RBC) [Entitic vol] 42.9 fL 35.1-43.9 [facility] Work Phone: Erythrocyte distribution width (RBC) [Ratio] 12.3 % 11.6-14.6 [facility] Work Phone: Immature granulocytes/100 WBC (Bld) 0.400 % 0.0-0.9 [facility] Work Phone: Comment on above: IG% - Immature Granu locytes (promyelocytes, myelocytes and metamyelocytes) > 1% indicates that a LEFT SHIFT is Present. MCH (RBC) [Entitic mass] 32.3 pg 27.0-32.0 [facility] Work Phone: Nucleated RBC/100 WBC (Bld) [Ratio] 0 % 0-5 [facility] Work Phone: MCHC Auto (RBC) [Mass/Vol]on 02-12-2022 MCHC (RBC) [Mass/Vol] 34.2 g/dL 32-36 [facility] Work Phone: No Panel Informationon 02-12 Estimated Creatinine Clearance Calc 87.09 ml/min [facility] Work Phone: Estimated GFR (MDRD) Amer 125 mL/min >60 [facility] Work Phone: Comment on above: GFR Calc Estimated GFR (MDRD) Non-Af Amer 103 mL/min >60 [facility] Work Phone: Comment on above: Non- GFR Calc Platelets bldon 02-12-2022 Platelets (Bld) [#/Vol] 313 10*3/uL 150-450 [facility] Work Phone: Serum or plasma calcium micah urement (mass/volume)on 02-12-2022 Calcium [Mass/Vol] 8.5 mg/dL 8.5-10.1 [facility] Work Phone: Serum or plasma creatinine m easurement (mass/volume)on 02-12-2022 Creatinine [Mass/Vol] 0.85 mg/dL 0.70-1.30 [facility] Work Phone: Comment on above: The validity of the calculated GFR & GFRAA in patients over 70 years has not been determined. Clinical correlation is essential. Serum or plasma urea nitroge n measurement (mass/volume)on 02-12-2022 Urea nitrogen [Mass/Vol] 22 mg/dL 7-18 [facility] Work Phone: Thin prep Papanicolaou smear with manual screeningon 02-12-2022 Thin prep Papanicolaou smear with manual screening 6 5-15 [facility] Work Phone: ED Pat Eduon 08-04-2019 ED Pat [facility] Emergency Department [address] [place] [id number] Emergency Department Discharge Instructions MICHAEL MCNEILL, Please provide this information to your Primary Care/Specialist Name: MICHAEL MCNEILL Current Date : 08/04/2019 01:15:09 : 1975 Primary Care Physician: Physician, No PCP Diagnosis : Follow-Up Instructions: MICHAEL MCNEILL has been given these follow-up instructions: Laboratory Orders: None Ordered Radiology Orders: Name: Status: XR Chest 2 Views Completed Diagnostic Tests: None Ordered Procedure(s) and Patient Education(s) : [facility] List (Custom); Asthma, Acute Bronchospasm EMERGENCY SERVICES MEDICATION LIST Lista de Medicaciones de los Servicios de Emergencia Name MARKELLMICHAEL APARICIO Krystian MRN ([facility])-[id number] Acct# PLEASE READ THE FOLLOWING REGARDING YOUR [...] doses are changed, or new medications (including bzws-ljc-sakznwd products) are added. If you have any [...] UNTIL YOU TALK TO YOUR DOCTOR None [facility] Emergency Department [address] [place] [id number] Emergency Department Discharge Instructions Name: MICHAEL MCNEILL Current Date:08/04/2019 01:15:09 :1975 Primary Physician:Physician, No PCP We would like to thank you for choosing [facility] for your emergency medical needs. We [...] health of those around you. Call the [place] at 0-849-BDPI-USA or the [place] at 9-275-IAT-9537 for more information. High blood pressure: Your [...] deadly infections. Discuss this with your child's unit director, or Public Health Department. Your family practice doctor can determine if you need pneumonia or flu vaccine. The [facility] Association Department can be reached at . Substance Abuse Program: Concerns with addiction to alcohol, benzodiazepines (Ativan or Xanax) and Opiates (Heroin, Percocet, OxyContin, Methadone or Fentanyl)? [facility] offers an inpatient Substance Abuse Program to help treat the symptoms associated with medical detoxification of addictive substances. The new program offers care for non- adults (18 and older) looking to break the chain to addictive chemicals. The Substance Abuse Program is a voluntary inpatient admission and it starts with a pre-screening phone call to a social service manager. During the call, goals and objectives for recovery and how the patient will transition to outpatient care will be established. Please call [phone] to get help today. Domestic Violence: If [...] suicide hotline, anytime day or night, at 4-108-746-OHSM. Community Compensation Advisor: You may be contacted by your local fire department for a follow up visit from a community health information managers. The community health information managers can help with a home safety check; follow up care, and general home care management. Pharmacy Information: Below is a list of 24 hour pharmacies that we are aware of. We suggest that you call the specific pharmacy for their hours before traveling to a location. Hours may vary on holidays. [facility] Pharmacy [place] [address] [place], [place] [phone] [address] [place], [place] 079 [phone] [place], [place] [address]33 [phone] [address] [place], [place] [phone] [address] [place], [place] [phone] [address] [place], [place] [phone] [place] [address] [phone] Take all medications as directed. If you need prescription assistance, contact the following agencies: ?? Partnership for Prescription Assistance at or www.pparx.org ?? [facility] Best Rx at or www.AirSense Wirelessbestrx.org ?? www.PicRate.MeRx.[employer] is a site with many valuable coupons Patient Education Materials MICHAEL MCNEILL has been given the following patient education materials: [facility] Emergency Department [facility]. offers comprehensive and integrated primary care medical services. We welcome the opportunity to provide follow-up care for your family, now that you've been discharged from the hospital. We offer transportation and spanish interpreter/translator services. If you need either of these services, please let us know when you call to make your appointment and we'll be happy to make these arrangements for you. We count it a privilege to have the opportunity to care for you at any one of our conveniently located health center locations below. [facility]. can provide you with: ?? Family Practice medical care for adults and children including physicals and immunizations ?? and care, FINISHER POLISHER, Podiatry and Pediatric services ?? Referrals to specialists when needed ?? Dental, Vision and Prescription services ?? Lab Services such as cholesterol, glucose, sickle cell, lead poisoning, , PAP, and HIV tests ?? Health education and nutritional counseling ?? [facility]. provides health care to the homeless. For further information contact: [facility] [phone] Health Insurance plans accepted by [facility]: [employer] (BCCP), HERMEL DELOR Insurance, [employer], Care source, [employer], Medicaid, Medical Hancock, Medicare, Medicare-[place], [place] and [facility] Please call any location for further information. [facility]. provides services regardless of ability to pay. If you don't have insurance coverage, your cost will be based on your income and family size. [facility] [address] [place] [address] [facility] [address] [place] [phone] [place] [facility] [address] [place] [address] [facility] [address] [phone] [place] [id number] [facility], [address] [place] [address] [facility], [facility]. Administration: [address] [facility], [address] [place], [place] [address] [facility] is funded by the U.S. Department of Health and Human Services as a Federally Qualified Community Health Center providing primary health care services to individuals and families in the [place] area. Allergy Asthma, Acute Bronchospasm Acute bronchospasm [...] smoke. ???Air pollutants such as dust, household trial court justice, hair sprays, aerosol sprays, paint fumes, strong [...] were prescribed any new medicines, let your hogshead opener know about the visit and how you [...] 01/03/2008 Document Revised: 09/23/2014 Document Reviewed: 03/26/2014 [employer] Patient Education ?2016 [employer] <><><><><><><><><><><>< ><><><><><><><><><><><> <><><><><><><><><><> Patient Visit Summary Signature MICHAEL MCNEILL has been given the following list of patient education materials, prescriptions and follow-up instructions: IVINCENT JIMMY D, have received the above patient education materials/instructions and have verbalized understanding: Date Time Patient Signature Date Time Provider Signature Normal [facility] XR Chest 2 Viewson 9 XR [...] x-ray after completion of therapy is suggested. [facility] thanks you for the opportunity to care for your patient. Workstation ID: [id number] FINAL REPORT Dictated By: Lima Siddiqi MD 08/04/2019 01:22 Assigned Physician: Lima Siddiqi MD Reviewed and Electronically Signed By: Lima Siddiqi MD 08/04/2019 01:24 Transcribed by: KASIA 08/04/2019 01:22 Technologist: LUCITA Han [facility] Comment on above: Order Comment: Unable to get pt, respiratory in room 08/04/2019 00:59:01 EDT Amphetamine GCMS Confirmon 0 06-07-2018 Amphetamine GCMS Confirm Positive Normal [facility] Comment on above: Result Comment: LC/M S confirmed the presence of:AMPHETAMINEMETHAMPHETAMINEThis Liquid Chromatography Mass Spectrometry (LC/MS/MS) test was developed and its performance characteristics determined by Toxicology Laboratory at [facility].It has not been cleared or approved by the FDA. The laboratory is regulated under CLIA as qualified to perform high-complexity testing. This test is used for clinical purposes. It should not be regarded as investigational or for research. Performed By: #### C BCDFE, LIVPE, C7EDE, ETOHE, TSHE, FT4E ####[place] [address] Drug Panel 10, Urine Medical - UHEon 06-06-2018 Amphetamine/Methamphet amine Positive Normal 500 [facility] Comment on above: Result Comment: Non- forensic purpose, confirmation report to follow. Performed By: #### 1 0DRGE ####[place] [address]#### AMPMS ####[facility] [address] [place], [place] [phone] [address] [place] [address] Barbiturates NONE DETECTED Normal 200 [facility] Comment on above: Performed By: #### 1 0DRGE ####[place] [address]#### AMPMS ####[facility] [address]Mn[facility]wid[facility]testant Hospital[address] [place] [address] Benzodiazepines NONE DETECTED Normal 200 [facility] Comment on above: Performed By: #### 1 0DRGE ####[place] [address]#### AMPMS ####[facility] [place] [address], [place] [address]DbgiwdProtestant Hospital[address] [place] [address] Buprenorphine NONE DETECTED Normal 5 [facility] Comment on above: Performed By: #### 1 0DRGE ####[address] [address]#### AMPMS ####[facility] [place] [address]JaskpoProtestant Hospital[address] [place] [address] Cannabinoids Screen Ql (U) NONE DETECTED Normal 50 [facility] Comment on above: Performed By: #### 1 0DRGE ####[address] [address]#### AMPMS ####[facility] [place] [address]ZkkmtmProtestant Hospital[address] [place] [address] Cocaine/Metabolites NONE DETECTED Normal 150 [facility] Comment on above: Performed By: #### 1 0DRGE ####[address] [address]#### AMPMS ####[facility] [address] [place], [place] [phone] [address] [place] [address] COMMENT Urine: For medical purposes only. Positive results unconfirmed unless otherwise noted. Normal [facility] Comment on above: Performed By: #### 1 0DRGE ####[address] [address]#### AMPMS ####[facility] [address]CuiavvProtestant Hospital[address] [place] [address] Fentanyl NONE DETECTED Normal 2 [facility] Comment on above: Performed By: #### 1 0DRGE ####[address] [address]#### AMPMS ####[facility] [place] [address]QqtwidProtestant Hospital410 [address] [facility] [place] [address] Methadone NONE DETECTED Normal 300 [facility] Comment on above: Performed By: #### 1 0DRGE ####[address] [address]#### AMPMS ####[facility] [place] [address]WqrsooProtestant Hospital[address] [place] [address] Opiates NONE DETECTED Normal 300 [facility] Comment on above: Performed By: #### 1 0DRGE ####[address] [address]#### AMPMS ####[facility] [place] [address]PseeobProtestant Hospital[address] [place], [place] [address] Oxycodone NONE DETECTED Normal 100 [facility] Comment on above: Performed By: #### 1 0DRGE ####[address] [address]#### AMPMS ####[facility] [place] [address]AstedqProtestant Hospital[address] [place] [address] Urinalysis - Eon 8 Appearance Nom (U) Clear Normal Clear [facility] Comment on above: Performed By: #### U AE ####[place] [address] Bacteria Present Abnormal Absent [facility] Comment on above: Performed By: #### U AE ####[place] [address] Blood Urine Large Abnormal Negative [facility] Comment on above: Performed By: #### U AE ####[address] [address] Color Yellow Normal Yellow [facility] Comment on above: Performed By: #### U AE ####[address] [address] COMMENT URINE Mucus Normal [facility] Comment on above: Performed By: #### U AE ####[place] [address] Glucose Ql (U) Negative Normal Negative [facility] Comment on above: Performed By: #### U AE ####[place] [address] Ketones Ql (U) Trace Abnormal Negative [facility] Comment on above: Performed By: #### U AE ####[place] [address] Leukocyte Esterase Negative Normal Negative [facility] Comment on above: Performed By: #### U AE ####[place] [address] Nitrites Urine Negative Normal Negative [facility] Comment on above: Performed By: #### U AE ####[place] [address] pH Test strip (U) 6.0 [pH] Normal 5.0-7.0 [facility] Comment on above: Performed By: #### U AE ####[place] [address] Protein Urine Negative Normal Negative [facility] Comment on above: Performed By: #### U AE ####[place] [address] RBC LM.HPF #/area (Urine sed) 0-2 Normal 0-2 [facility] Comment on above: Performed By: #### U AE ####[place] [address] Specific Backus urine >1.030 Normal 1.001-1.035 O [facility] Comment on above: Performed By: #### U AE ####[place] [address] Squamous Epithelial 1+ /HPF Normal [facility] Comment on above: Performed By: #### U AE ####[place] [address] Urobilinogen urine 1.0 EU/dL Normal <2.0 [facility] Comment on above: Performed By: #### U AE ####[place] [address] WBC LM.HPF #/area (Urine sed) 0-5 Normal 0-5 [facility] Comment on above: Performed By: #### U AE ####[place] [address] CBC WITH DIFF [place] 018 Abs Baso 0.09 K/uL High <0.09 [facility] Comment on above: Performed By: #### C BCDFE, LIVPE, C7EDE, ETOHE, TSHE, FT4E ####[place] [address] Abs Eos 0.87 K/uL High <0.55 [facility] Comment on above: Performed By: #### C BCDFE, LIVPE, C7EDE, ETOHE, TSHE, FT4E ####[place] [address] Abs [place] 0.55 K/uL Normal 0.30-0.82 [facility] Comment on above: Performed By: #### C BCDFE, LIVPE, C7EDE, ETOHE, TSHE, FT4E ####[place] [address] Basophils/100 WBC Auto (Bld) 0.9 % Normal [facility] Comment on above: Performed By: #### C BCDFE, LIVPE, C7EDE, ETOHE, TSHE, FT4E ####[place] [address] DIFFERENTIAL TYPE Electronic Differential Normal [facility] Comment on above: Performed By: #### C BCDFE, LIVPE, C7EDE, ETOHE, TSHE, FT4E ####[place] [address] Eosinophils/100 WBC Auto (Bld) 8.8 % Normal [facility] Comment on above: Performed By: #### C BCDFE, LIVPE, C7EDE, ETOHE, TSHE, FT4E ####[place] [address] Hematocrit Auto Volume Fraction (Bld) 37.5 % Low 40.1-51.0 [facility] Comment on above: Performed By: #### C BCDFE, LIVPE, C7EDE, ETOHE, TSHE, FT4E ####[place] [address] Hemoglobin mass conc (Bld) 13.0 g/dL Low 13.7-17.5 [facility] Comment on above: Performed By: #### C BCDFE, LIVPE, C7EDE, ETOHE, TSHE, FT4E ####[place] [address] IMMATURE GRANS % 0.3 % Normal [facility] Comment on above: Performed By: #### C BCDFE, LIVPE, C7EDE, ETOHE, TSHE, FT4E ####[place] [address] IMMATURE GRANS ABSOLUTE <0.04 Normal <0.04 [facility] Comment on above: Performed By: #### C BCDFE, LIVPE, C7EDE, ETOHE, TSHE, FT4E ####[place] [address] Lymphocytes Auto #/vol (Bld) 1.17 10*3/uL Low 1.32-3.57 [facility] Comment on above: Performed By: #### C BCDFE, LIVPE, C7EDE, ETOHE, TSHE, FT4E ####[place] [address] Lymphocytes/100 WBC Auto (Bld) 11.9 % Normal [facility] Comment on above: Performed By: #### C BCDFE, LIVPE, C7EDE, ETOHE, TSHE, FT4E ####[place] [address] MCV Auto Entitic volume (RBC) 92.8 fL High 79.0-92.2 [facility] Comment on above: Performed By: #### C BCDFE, LIVPE, C7EDE, ETOHE, TSHE, FT4E ####[place] [address] Mean Cell Hgb 32.2 pg Normal 25.7-32.2 [facility] Comment on above: Performed By: #### C BCDFE, LIVPE, C7EDE, ETOHE, TSHE, FT4E ####[place] [address] Mean Cell Hgb Conc 34.7 g/dL Normal 32.3-36.5 [facility] Comment on above: Performed By: #### C BCDFE, LIVPE, C7EDE, ETOHE, TSHE, FT4E ####[place] [address] Monocytes/100 WBC Auto (Bld) 5.6 % Normal [facility] Comment on above: Performed By: #### C BCDFE, LIVPE, C7EDE, ETOHE, TSHE, FT4E ####[place] [address] NEUTROPHIL SEGMENTED 72.5 % Normal [facility] Comment on above: Performed By: #### C BCDFE, LIVPE, C7EDE, ETOHE, TSHE, FT4E ####[place] [address] Nucleated RBC #/vol (Bld) 0.0 /100 WBC Normal 0.0-0.2 [facility] Comment on above: Performed By: #### C BCDFE, LIVPE, C7EDE, ETOHE, TSHE, FT4E ####[place] [address] Platelet mean volume Auto Entitic volume (Bld) 8.9 fL Low 9.4-12.4 [facility] Comment on above: Performed By: #### C BCDFE, LIVPE, C7EDE, ETOHE, TSHE, FT4E ####[place] [address] Platelets Auto #/vol (Bld) 366 10*3/uL High 163-337 [facility] Comment on above: Performed By: #### C BCDFE, LIVPE, C7EDE, ETOHE, TSHE, FT4E ####[place] [address] RBC Auto #/vol (Bld) 13.4 % Normal 11.6-14.4 [facility] Comment on above: Performed By: #### C BCDFE, LIVPE, C7EDE, ETOHE, TSHE, FT4E ####[place] [address] RBC Auto #/vol (Bld) 4.04 10*6/uL Low 4.63-6.08 [facility] Comment on above: Performed By: #### C BCDFE, LIVPE, C7EDE, ETOHE, TSHE, FT4E ####[place] [address] SEGS + Bands,Absolute 7.16 K/uL High 1.78-5.38 [place] Comment on above: Performed By: #### C BCDFE, LIVPE, C7EDE, ETOHE, TSHE, FT4E ####[place] [address] WBC Auto #/vol (Bld) 9.87 10*3/uL High 4.23-9.07 [facility] Comment on above: Performed By: #### C BCDFE, LIVPE, C7EDE, ETOHE, TSHE, FT4E ####[place] [address] CHEM 7 EDon 06-05-2018 Anion gap 3 molar conc 14 mmol/L Normal 7-17 [facility] Comment on above: Performed By: #### C BCDFE, LIVPE, C7EDE, ETOHE, TSHE, FT4E ####[place] [address] Chloride molar conc 107 mmol/L Normal 98-108 [facility] Comment on above: Performed By: #### C BCDFE, LIVPE, C7EDE, ETOHE, TSHE, FT4E ####[place] [address] CO2 molar conc 25 mmol/L Normal 22-30 [facility] Comment on above: Performed By: #### C BCDFE, LIVPE, C7EDE, ETOHE, TSHE, FT4E ####[place] [address] Creatinine mass conc 1.05 mg/dL Normal 0.70-1.30 [facility] Comment on above: Performed By: #### C BCDFE, LIVPE, C7EDE, ETOHE, TSHE, FT4E ####[place] [address] Est GFR, >60 Normal >60 [facility] Comment on above: Performed By: #### C BCDFE, LIVPE, C7EDE, ETOHE, TSHE, FT4E ####[place] [address] Est GFR,non >60 Normal >60 [facility] Comment on above: Performed By: #### C BCDFE, LIVPE, C7EDE, ETOHE, TSHE, FT4E ####[place] [address] Glucose mass conc 143 mg/dL High 70-99 [facility] Comment on above: Performed By: #### C BCDFE, LIVPE, C7EDE, ETOHE, TSHE, FT4E ####[place] [address] Osmolality 305 mOsm/kg Normal 278-305 [facility] Comment on above: Performed By: #### C BCDFE, LIVPE, C7EDE, ETOHE, TSHE, FT4E ####[place] [address] Potassium molar conc 3.4 mmol/L Low 3.5-5.0 [facility] Comment on above: Performed By: #### C BCDFE, LIVPE, C7EDE, ETOHE, TSHE, FT4E ####[place] [address] Sodium molar conc 143 mmol/L Normal 133-143 [facility] Comment on above: Performed By: #### C BCDFE, LIVPE, C7EDE, ETOHE, TSHE, FT4E ####[place] [address] Urea nitrogen mass conc 28 mg/dL High 7-22 [facility] Comment on above: Performed By: #### C BCDFE, LIVPE, C7EDE, ETOHE, TSHE, FT4E ####[place] [address] Urea nitrogen/Creatinine mass ratio 27 mg/mg Normal [facility] Comment on above: Performed By: #### C BCDFE, LIVPE, C7EDE, ETOHE, TSHE, FT4E ####[place] [address] Ethyl Alcohol,Blood - UHEon 06-05-2018 Ethyl Alcohol, blood <10 Normal <10 [facility] Comment on above: Result Comment: For Medical Purposes Only, Non forensic Performed By: #### C BCDFE, LIVPE, C7EDE, ETOHE, TSHE, FT4E ####[place] [address] Free T4-Eon 06-05-2018 T4 free mass conc 1.14 ng/dL Normal 0.89-1.76 [facility] Comment on above: Performed By: #### C BCDFE, LIVPE, C7EDE, ETOHE, TSHE, FT4E ####[place] [address] Lactate,plasma - UHEon 06-05 Lactate,plasma - UHE 0.9 mmol/L Normal 0.5-2.2 [facility] Comment on above: Performed By: #### L ACTE ####[place] [address] Liver Profile - UHEon 2017 Albumin mass conc 4.5 g/dL Normal 3.5-5.0 [facility] Comment on above: Performed By: #### C BCDFE, LIVPE, C7EDE, ETOHE, TSHE, FT4E ####[place] [address] ALP enzyme act/vol 54 U/L Normal 32-126 [facility] Comment on above: Performed By: #### C BCDFE, LIVPE, C7EDE, ETOHE, TSHE, FT4E ####[place] [address] ALT enzyme act/vol 93 U/L High 10-52 [facility] Comment on above: Performed By: #### C BCDFE, LIVPE, C7EDE, ETOHE, TSHE, FT4E ####[place] [address] AST enzyme act/vol 86 U/L High 14-40 [facility] Comment on above: Performed By: #### C BCDFE, LIVPE, C7EDE, ETOHE, TSHE, FT4E ####[place] [address] Bilirubin mass conc 1.0 mg/dL Normal <1.5 [facility] Comment on above: Performed By: #### C BCDFE, LIVPE, C7EDE, ETOHE, TSHE, FT4E ####[place] [address] Bilirubin.direct mass conc 0.3 mg/dL High <0.3 [facility] Comment on above: Performed By: #### C BCDFE, LIVPE, C7EDE, ETOHE, TSHE, FT4E ####[place] [address] Protein mass conc 7.7 g/dL Normal 6.4-8.3 [facility] Comment on above: Performed By: #### C BCDFE, LIVPE, C7EDE, ETOHE, TSHE, FT4E ####[address] [address] TSH -UHEon 06-05-2018 Thyrotropin Qn 0.741 uIU/mL Normal 0.550-4.780 [facility] Comment on above: Performed By: #### C BCDFE, LIVPE, C7EDE, ETOHE, TSHE, FT4E ####[address] [address] XR CHEST AP PORTABLE EDon XR CHEST [...] represent scarring. Otherwiseno acute cardiopulmonary findings. Normal [facility] COVID-19 virus antigen assay SARS-CoV-2 (COVID-19) Ag IA.rapid Ql (Resp) [facility] Work Phone: Influenza virus A and B and SARS-CoV-2 (COVID-19) Ag panel - Upper respiratory specim SARS-CoV-2 & FLU Antigen (Rapid) Influenzae A [facility] Work Phone: No Panel Information SARS-CoV-2 & FLU Antigen (Rapid) [facility] Work Phone: Vital Signs Date Time Vital Sign Value Performing Clinician Facility 03-29-2025 22:40-0400 Body temperature 97.2 [degF] No Primary Care Physician [facility] 03-29-2025 22:40-0400 Diastolic blood pressure 90 mm[Hg] No Primary Care Physician [facility] 03-29-2025 22:40-0400 Heart rate 85 /min No Primary Care Physician [facility] 03-29-2025 22:40-0400 Respiratory rate 16 /min No Primary Care Physician [facility] 03-29-2025 22:40-0400 SaO2% (BldA) [Mass fraction] 100 % No Primary Care Physician [facility] 03-29-2025 22:40-0400 Systolic blood pressure 139 mm[Hg] No Primary Care Physician [facility] 03-29-2025 17:47-0400 Body height 167.64 cm No Primary Care Physician [facility] 03-29-2025 17:47-0400 Body mass index (BMI) [Ratio] 22.9 kg/m2 No Primary Care Physician [facility] 03-29-2025 17:47-0400 Body weight 64.5 kg No Primary Care Physician [facility] 01-19-2025 15:32-0400 Body temperature 98 [degF] No Primary Care Physician [facility] 01-19-2025 15:32-0400 Diastolic blood pressure 75 mm[Hg] No Primary Care Physician [facility] 01-19-2025 15:32-0400 Heart rate 88 /min No Primary Care Physician [facility] 01-19-2025 15:32-0400 Respiratory rate 16 /min No Primary Care Physician [facility] 01-19-2025 15:32-0400 SaO2% (BldA) [Mass fraction] 96 % No Primary Care Physician [facility] 01-19-2025 15:32-0400 Systolic blood pressure 124 mm[Hg] No Primary Care Physician [facility] 01-19-2025 13:46-0400 Body height 167.64 cm No Primary Care Physician [facility] 01-19-2025 13:46-0400 Body mass index (BMI) [Ratio] 20 kg/m2 No Primary Care Physician [facility] 01-19-2025 13:46-0400 Body weight 56.24 kg No Primary Care Physician [facility] 12-13-2024 13:44-0400 Body temperature 96.6 [degF] No Primary Care Physician [facility] 12-13-2024 13:44-0400 Diastolic blood pressure 90 mm[Hg] No Primary Care Physician [facility] 12-13-2024 13:44-0400 Heart rate 88 /min No Primary Care Physician [facility] 12-13-2024 13:44-0400 Respiratory rate 16 /min No Primary Care Physician [facility] 12-13-2024 13:44-0400 SaO2% (BldA) [Mass fraction] 100 % No Primary Care Physician [facility] 12-13-2024 13:44-0400 Systolic blood pressure 148 mm[Hg] No Primary Care Physician [facility] 12-13-2024 11:18-0400 Body height 167.64 cm No Primary Care Physician [facility] 12-13-2024 11:18-0400 Body mass index (BMI) [Ratio] 20.5 kg/m2 No Primary Care Physician [facility] 12-13-2024 11:18-0400 Body weight 57.6 kg No Primary Care Physician [facility] 12-04-2024 16:39-0500 Body mass index (BMI) [Ratio] 24.7 kg/m2 No Primary Care Physician [facility] 12-04-2024 16:39-0500 Body temperature 98.1 [degF] No Primary Care Physician [facility] 12-04-2024 16:39-0500 Body weight 69.39 kg No Primary Care Physician [facility] 12-04-2024 16:39-0500 Diastolic blood pressure 77 mm[Hg] No Primary Care Physician [facility] 12-04-2024 16:39-0500 Heart rate 89 /min No Primary Care Physician [facility] 12-04-2024 16:39-0500 Respiratory rate 16 /min No Primary Care Physician [facility] 12-04-2024 16:39-0500 SaO2% (BldA) [Mass fraction] 98 % No Primary Care Physician [facility] 12-04-2024 16:39-0500 Systolic blood pressure 90 mm[Hg] No Primary Care Physician [facility] 2024 16:49-0500 Body temperature 97.8 [degF] No Primary Care Physician [facility] 2024 16:49-0500 Diastolic blood pressure 82 mm[Hg] No Primary Care Physician [facility] 2024 16:49-0500 Heart rate 96 /min No Primary Care Physician [facility] 2024 16:49-0500 Respiratory rate 20 /min No Primary Care Physician [facility] 2024 16:49-0500 SaO2% (BldA) [Mass fraction] 93 % No Primary Care Physician [facility] 2024 16:49-0500 Systolic blood pressure 135 mm[Hg] No Primary Care Physician [facility] 2024 12:43-0500 Body mass index (BMI) [Ratio] 20.1 kg/m2 No Primary Care Physician [facility] 2024 12:43-0500 Body weight 56.69 kg No Primary Care Physician [facility] 11-20-2024 16:46-0500 Body weight 58.5 kg No Primary Care Physician [facility] 11-20-2024 15:34-0500 Body mass index (BMI) [Ratio] 20.8 kg/m2 No Primary Care Physician [facility] 11-20-2024 15:34-0500 Body temperature 98.2 [degF] No Primary Care Physician [facility] 11-20-2024 15:34-0500 Diastolic blood pressure 81 mm[Hg] No Primary Care Physician [facility] 11-20-2024 15:34-0500 Heart rate 98 /min No Primary Care Physician [facility] 11-20-2024 15:34-0500 Respiratory rate 18 /min No Primary Care Physician [facility] 11-20-2024 15:34-0500 SaO2% (BldA) [Mass fraction] 96 % No Primary Care Physician [facility] 11-20-2024 15:34-0500 Systolic blood pressure 111 mm[Hg] No Primary Care Physician [facility] 11-12-2024 11:04-0500 Heart rate 81 /min No Primary Care Physician [facility] 11-12-2024 11:04-0500 Respiratory rate 14 /min No Primary Care Physician [facility] 11-12-2024 11:00-0500 Diastolic blood pressure 67 mm[Hg] No Primary Care Physician [facility] 11-12-2024 11:00-0500 Inhaled oxygen concentration 25 % No Primary Care Physician [facility] 11-12-2024 11:00-0500 SaO2% (BldA) [Mass fraction] 95 % No Primary Care Physician [facility] 11-12-2024 11:00-0500 Systolic blood pressure 111 mm[Hg] No Primary Care Physician [facility] 11-12-2024 09:42-0500 Body weight 56.1 kg No Primary Care Physician [facility] 11-12-2024 08:00-0500 Body temperature 97.6 [degF] No Primary Care Physician [facility] 11-12-2024 05:15-0500 Body mass index (BMI) [Ratio] 19.8 kg/m2 No Primary Care Physician [facility] 11-11-2024 20:25-0500 Inhaled oxygen flow rate 2 L/min No Primary Care Physician [facility] 10-23-2024 04:00-0500 Body temperature 98.6 [degF] No Primary Care Physician [facility] 10-23-2024 04:00-0500 Diastolic blood pressure 71 mm[Hg] No Primary Care Physician [facility] 10-23-2024 04:00-0500 Heart rate 87 /min No Primary Care Physician [facility] 10-23-2024 04:00-0500 Respiratory rate 16 /min No Primary Care Physician [facility] 10-23-2024 04:00-0500 SaO2% (BldA) [Mass fraction] 94 % No Primary Care Physician [facility] 10-23-2024 04:00-0500 Systolic blood pressure 119 mm[Hg] No Primary Care Physician [facility] 10-22-2024 13:29-0500 Body weight 55 kg No Primary Care Physician [facility] 10-21-2024 20:51-0500 Body mass index (BMI) [Ratio] 19 kg/m2 No Primary Care Physician [facility] 10-21-2024 19:38-0500 Inhaled oxygen flow rate 3 L/min No Primary Care Physician [facility] 10-21-2024 17:05-0500 Inhaled oxygen concentration 40 % No Primary Care Physician [facility] 09-19-2024 19:47-0500 Body temperature 98.1 [degF] No Primary Care Physician [facility] 09-19-2024 19:47-0500 Diastolic blood pressure 81 mm[Hg] No Primary Care Physician [facility] 09-19-2024 19:47-0500 Heart rate 77 /min No Primary Care Physician [facility] 09-19-2024 19:47-0500 Respiratory rate 19 /min No Primary Care Physician [facility] 09-19-2024 19:47-0500 SaO2% (BldA) [Mass fraction] 93 % No Primary Care Physician [facility] 09-19-2024 19:47-0500 Systolic blood pressure 121 mm[Hg] No Primary Care Physician [facility] 09-19-2024 17:47-0500 Body mass index (BMI) [Ratio] 25.3 kg/m2 No Primary Care Physician [facility] 09-19-2024 17:47-0500 Body weight 73.45 kg No Primary Care Physician [facility] 09-07-2024 12:55-0500 Body temperature 98.6 [degF] No Primary Care Physician [facility] 09-07-2024 12:55-0500 Diastolic blood pressure 76 mm[Hg] No Primary Care Physician [facility] 09-07-2024 12:55-0500 Heart rate 78 /min No Primary Care Physician [facility] 09-07-2024 12:55-0500 Respiratory rate 16 /min No Primary Care Physician [facility] 09-07-2024 12:55-0500 SaO2% (BldA) [Mass fraction] 99 % No Primary Care Physician [facility] 09-07-2024 12:55-0500 Systolic blood pressure 126 mm[Hg] No Primary Care Physician [facility] 09-07-2024 11:39-0500 Body mass index (BMI) [Ratio] 20.5 kg/m2 No Primary Care Physician [facility] 09-07-2024 11:39-0500 Body weight 59.42 kg No Primary Care Physician [facility] 10-31-2023 09:19-0500 Body temperature 98.3 [degF] No Primary Care Physician [facility] 10-31-2023 09:19-0500 Diastolic blood pressure 89 mm[Hg] No Primary Care Physician [facility] 10-31-2023 09:19-0500 Heart rate 88 /min No Primary Care Physician [facility] 10-31-2023 09:19-0500 Respiratory rate 18 /min No Primary Care Physician [facility] 10-31-2023 09:19-0500 SaO2% (BldA) [Mass fraction] 100 % No Primary Care Physician [facility] 10-31-2023 09:19-0500 Systolic blood pressure 110 mm[Hg] No Primary Care Physician [facility] 10-29-2023 05:54-0500 Body height 167.64 cm No Primary Care Physician [facility] 10-29-2023 05:54-0500 Body mass index (BMI) [Ratio] 21.5 kg/m2 No Primary Care Physician [facility] 10-29-2023 05:54-0500 Body weight 60.49 kg No Primary Care Physician [facility] 10-29-2023 05:14-0500 Body temperature 96.5 [degF] No Primary Care Physician [facility] 10-29-2023 05:14-0500 Diastolic blood pressure 58 mm[Hg] No Primary Care Physician [facility] 10-29-2023 05:14-0500 Heart rate 100 /min No Primary Care Physician [facility] 10-29-2023 05:14-0500 Respiratory rate 22 /min No Primary Care Physician [facility] 10-29-2023 05:14-0500 SaO2% (BldA) [Mass fraction] 99 % No Primary Care Physician [facility] 10-29-2023 05:14-0500 Systolic blood pressure 124 mm[Hg] No Primary Care Physician [facility] 10-29-2023 04:23-0500 Body height 167.64 cm No Primary Care Physician [facility] 10-29-2023 04:23-0500 Body mass index (BMI) [Ratio] 21.9 kg/m2 No Primary Care Physician [facility] 10-29-2023 04:23-0500 Body weight 61.6 kg No Primary Care Physician [facility] 10-15-2023 11:51-0500 Diastolic blood pressure 91 mm[Hg] No Primary Care Physician [facility] 10-15-2023 11:51-0500 Systolic blood pressure 157 mm[Hg] No Primary Care Physician [facility] 10-15-2023 11:21-0500 Body height 167.64 cm [facility] 10-15-2023 11:21-0500 Body mass index (BMI) [Ratio] 20.9 kg/m2 [facility] 10-15-2023 11:21-0500 Body temperature 96.7 [degF] [facility] 10-15-2023 11:21-0500 Body weight 58.96 kg [facility] 10-15-2023 11:21-0500 Diastolic blood pressure 130 mm[Hg] [facility] 10-15-2023 11:21-0500 Heart rate 52 /min [facility] 10-15-2023 11:21-0500 Respiratory rate 16 /min [facility] 10-15-2023 11:21-0500 SaO2% (BldA) [Mass fraction] 98 % [facility] 10-15-2023 11:21-0500 Systolic blood pressure 168 mm[Hg] [facility] 09-01-2023 01:06-0500 Heart rate 71 /min [facility] 09-01-2023 01:06-0500 Respiratory rate 16 /min [facility] 09-01-2023 01:06-0500 SaO2% (BldA) [Mass fraction] 98 % [facility] 09-01-2023 00:29-0500 Body height 167.64 cm [facility] 09-01-2023 00:29-0500 Body mass index (BMI) [Ratio] 23.3 kg/m2 [facility] 09-01-2023 00:29-0500 Body temperature 96.1 [degF] [facility] 09-01-2023 00:29-0500 Body weight 65.77 kg [facility] 09-01-2023 00:29-0500 Diastolic blood pressure 73 mm[Hg] [facility] 09-01-2023 00:29-0500 Systolic blood pressure 114 mm[Hg] [facility] 08-28-2023 10:33-0500 Body height 170.2 cm Linda Jose MD Work Phone: [facility] 08-28-2023 10:33-0500 Body temperature 97.9 [degF] Linda Jose MD Work Phone: [facility] 08-28-2023 10:33-0500 Body weight 63.87 kg Linda Jose MD Work Phone: [facility] 08-28-2023 10:33-0500 Diastolic blood pressure 84 mm[Hg] Linda Jose MD Work Phone: [facility] 08-28-2023 10:33-0500 Heart rate 109 /min Linda Jose MD Work Phone: [facility] 08-28-2023 10:33-0500 SaO2% (BldA) [Mass fraction] 96 % Linda Jose MD Work Phone: [facility] 08-28-2023 10:33-0500 Systolic blood pressure 130 mm[Hg] Linda Jose MD Work Phone: [facility] 05-29-2023 00:58-0400 Body height 167.64 cm No Primary Care Physician [facility] 05-29-2023 00:58-0400 Body mass index (BMI) [Ratio] 20.1 kg/m2 No Primary Care Physician [facility] 05-29-2023 00:58-0400 Body temperature 97.9 [degF] No Primary Care Physician [facility] 05-29-2023 00:58-0400 Body weight 56.69 kg No Primary Care Physician [facility] 05-29-2023 00:58-0400 Diastolic blood pressure 81 mm[Hg] No Primary Care Physician [facility] 05-29-2023 00:58-0400 Heart rate 100 /min No Primary Care Physician [facility] 05-29-2023 00:58-0400 Respiratory rate 20 /min No Primary Care Physician [facility] 05-29-2023 00:58-0400 SaO2% (BldA) [Mass fraction] 98 % No Primary Care Physician [facility] 05-29-2023 00:58-0400 Systolic blood pressure 120 mm[Hg] No Primary Care Physician [facility] 04-28-2023 07:58-0400 Heart rate 80 /min No Primary Care Physician [facility] 04-28-2023 05:47-0400 Body temperature 97.5 [degF] No Primary Care Physician [facility] 04-28-2023 05:47-0400 Diastolic blood pressure 79 mm[Hg] No Primary Care Physician [facility] 04-28-2023 05:47-0400 Respiratory rate 16 /min No Primary Care Physician [facility] 04-28-2023 05:47-0400 SaO2% (BldA) [Mass fraction] 98 % No Primary Care Physician [facility] 04-28-2023 05:47-0400 Systolic blood pressure 119 mm[Hg] No Primary Care Physician [facility] 04-27-2023 12:17-0400 Body height 167.64 cm No Primary Care Physician [facility] 04-27-2023 12:17-0400 Body weight 56.69 kg No Primary Care Physician [facility] 04-26-2023 20:56-0400 Body mass index (BMI) [Ratio] 20.1 kg/m2 No Primary Care Physician [facility] 04-26-2023 19:57-0400 Diastolic blood pressure 69 mm[Hg] No Primary Care Physician [facility] 04-26-2023 19:57-0400 Heart rate 79 /min No Primary Care Physician [facility] 04-26-2023 19:57-0400 Respiratory rate 16 /min No Primary Care Physician [facility] 04-26-2023 19:57-0400 SaO2% (BldA) [Mass fraction] 98 % No Primary Care Physician [facility] 04-26-2023 19:57-0400 Systolic blood pressure 105 mm[Hg] No Primary Care Physician [facility] 04-26-2023 19:54-0400 Body temperature 97.9 [degF] No Primary Care Physician [facility] 04-26-2023 16:53-0400 Body height 167.64 cm No Primary Care Physician [facility] 04-26-2023 16:53-0400 Body mass index (BMI) [Ratio] 20.4 kg/m2 No Primary Care Physician [facility] 04-26-2023 16:53-0400 Body weight 57.33 kg No Primary Care Physician [facility] 03-26-2023 00:12-0400 Body temperature 97.6 [degF] No Primary Care Physician [facility] 03-26-2023 00:12-0400 Diastolic blood pressure 78 mm[Hg] No Primary Care Physician [facility] 03-26-2023 00:12-0400 Heart rate 79 /min No Primary Care Physician [facility] 03-26-2023 00:12-0400 Respiratory rate 16 /min No Primary Care Physician [facility] 03-26-2023 00:12-0400 SaO2% (BldA) [Mass fraction] 97 % No Primary Care Physician [facility] 03-26-2023 00:12-0400 Systolic blood pressure 106 mm[Hg] No Primary Care Physician [facility] 03-26-2023 00:10-0400 Body height 170.18 cm No Primary Care Physician [facility] 03-26-2023 00:10-0400 Body mass index (BMI) [Ratio] 19.5 kg/m2 No Primary Care Physician [facility] 03-26-2023 00:10-0400 Body weight 56.69 kg No Primary Care Physician [facility] 02-23-2023 23:30-0400 Body mass index (BMI) [Ratio] 24.3 kg/m2 No Primary Care Physician [facility] 02-23-2023 23:30-0400 Body temperature 98.7 [degF] No Primary Care Physician [facility] 02-23-2023 23:30-0400 Body weight 68.5 kg No Primary Care Physician [facility] 02-23-2023 23:30-0400 Diastolic blood pressure 91 mm[Hg] No Primary Care Physician [facility] 02-23-2023 23:30-0400 Heart rate 85 /min No Primary Care Physician [facility] 02-23-2023 23:30-0400 Respiratory rate 18 /min No Primary Care Physician [facility] 02-23-2023 23:30-0400 SaO2% (BldA) [Mass fraction] 95 % No Primary Care Physician [facility] 02-23-2023 23:30-0400 Systolic blood pressure 130 mm[Hg] No Primary Care Physician [facility] 01-22-2023 15:12-0400 Respiratory rate 14 /min No Primary Care Physician [facility] 01-22-2023 14:07-0400 Body height 167.64 cm No Primary Care Physician [facility] 01-22-2023 14:07-0400 Body mass index (BMI) [Ratio] 21.3 kg/m2 No Primary Care Physician [facility] 01-22-2023 14:07-0400 Body temperature 97 [degF] No Primary Care Physician [facility] 01-22-2023 14:07-0400 Body weight 60 kg No Primary Care Physician [facility] 01-22-2023 14:07-0400 Diastolic blood pressure 82 mm[Hg] No Primary Care Physician [facility] 01-22-2023 14:07-0400 Heart rate 78 /min No Primary Care Physician [facility] 01-22-2023 14:07-0400 SaO2% (BldA) [Mass fraction] 100 % No Primary Care Physician [facility] 01-22-2023 14:07-0400 Systolic blood pressure 120 mm[Hg] No Primary Care Physician [facility] 12-24-2022 07:51-0400 Body temperature 97.5 [degF] No Primary Care Physician [facility] 12-24-2022 07:51-0400 Diastolic blood pressure 77 mm[Hg] No Primary Care Physician [facility] 12-24-2022 07:51-0400 Heart rate 79 /min No Primary Care Physician [facility] 12-24-2022 07:51-0400 Respiratory rate 18 /min No Primary Care Physician [facility] 12-24-2022 07:51-0400 SaO2% (BldA) [Mass fraction] 98 % No Primary Care Physician [facility] 12-24-2022 07:51-0400 Systolic blood pressure 134 mm[Hg] No Primary Care Physician [facility] 12-23-2022 23:29-0400 Body height 167.64 cm No Primary Care Physician [facility] 12-23-2022 23:29-0400 Body mass index (BMI) [Ratio] 19.9 kg/m2 No Primary Care Physician [facility] 12-23-2022 23:29-0400 Body weight 56 kg No Primary Care Physician [facility] 12-15-2022 18:20-0400 Body height 167.64 cm [facility] 12-15-2022 18:20-0400 Body temperature 97.8 [degF] [facility] 12-15-2022 18:20-0400 Diastolic blood pressure 81 mm[Hg] [facility] 12-15-2022 18:20-0400 Heart rate 91 /min [facility] 12-15-2022 18:20-0400 Respiratory rate 18 /min [facility] 12-15-2022 18:20-0400 SaO2% (BldA) [Mass fraction] 99 % [facility] 12-15-2022 18:20-0400 Systolic blood pressure 126 mm[Hg] [facility] 12-01-2022 23:24-0500 Body height 167.64 cm [facility] 12-01-2022 23:24-0500 Body mass index (BMI) [Ratio] 20.3 kg/m2 [facility] 12-01-2022 23:24-0500 Body temperature 97.6 [degF] [facility] 12-01-2022 23:24-0500 Body weight 57.15 kg [facility] 12-01-2022 23:24-0500 Diastolic blood pressure 70 mm[Hg] [facility] 12-01-2022 23:24-0500 Heart rate 90 /min [facility] 12-01-2022 23:24-0500 Respiratory rate 18 /min [facility] 12-01-2022 23:24-0500 SaO2% (BldA) [Mass fraction] 97 % [facility] 12-01-2022 23:24-0500 Systolic blood pressure 113 mm[Hg] [facility] 11-03-2022 15:46-0500 Diastolic blood pressure 80 mm[Hg] No Primary Care Physician [facility] 11-03-2022 15:46-0500 Heart rate 72 /min No Primary Care Physician [facility] 11-03-2022 15:46-0500 Respiratory rate 16 /min No Primary Care Physician [facility] 11-03-2022 15:46-0500 Systolic blood pressure 124 mm[Hg] No Primary Care Physician [facility] 11-03-2022 15:09-0500 SaO2% (BldA) [Mass fraction] 98 % No Primary Care Physician [facility] 11-03-2022 12:58-0500 Body height 167.64 cm No Primary Care Physician [facility] 11-03-2022 12:58-0500 Body mass index (BMI) [Ratio] 21.9 kg/m2 No Primary Care Physician [facility] 11-03-2022 12:58-0500 Body temperature 98.1 [degF] No Primary Care Physician [facility] 11-03-2022 12:58-0500 Body weight 61.7 kg No Primary Care Physician [facility] 10-23-2022 02:37-0500 Body temperature 98 [degF] No Primary Care Physician [facility] 10-23-2022 02:37-0500 Diastolic blood pressure 81 mm[Hg] No Primary Care Physician [facility] 10-23-2022 02:37-0500 Heart rate 96 /min No Primary Care Physician [facility] 10-23-2022 02:37-0500 Respiratory rate 18 /min No Primary Care Physician [facility] 10-23-2022 02:37-0500 SaO2% (BldA) [Mass fraction] 98 % No Primary Care Physician [facility] 10-23-2022 02:37-0500 Systolic blood pressure 133 mm[Hg] No Primary Care Physician [facility] 10-23-2022 01:44-0500 Body mass index (BMI) [Ratio] 20.6 kg/m2 No Primary Care Physician [facility] 10-23-2022 01:44-0500 Body weight 58 kg No Primary Care Physician [facility] 10-09-2022 14:57-0500 Diastolic blood pressure 85 mm[Hg] No Primary Care Physician [facility] 10-09-2022 14:57-0500 Heart rate 89 /min No Primary Care Physician [facility] 10-09-2022 14:57-0500 Respiratory rate 18 /min No Primary Care Physician [facility] 10-09-2022 14:57-0500 SaO2% (BldA) [Mass fraction] 97 % No Primary Care Physician [facility] 10-09-2022 14:57-0500 Systolic blood pressure 115 mm[Hg] No Primary Care Physician [facility] 10-09-2022 13:25-0500 Body height 167.64 cm No Primary Care Physician [facility] Work Phone: 10-09-2022 13:25-0500 Body mass index (BMI) [Ratio] 20.9 kg/m2 No Primary Care Physician [facility] 10-09-2022 13:25-0500 Body temperature 96.4 [degF] No Primary Care Physician [facility] 10-09-2022 13:25-0500 Body weight 58.96 kg No Primary Care Physician [facility] 09-09-2022 04:23-0500 Heart rate 85 /min No Primary Care Physician [facility] 09-09-2022 04:23-0500 Respiratory rate 18 /min No Primary Care Physician [facility] 09-09-2022 04:23-0500 SaO2% (BldA) [Mass fraction] 96 % No Primary Care Physician [facility] 09-09-2022 01:56-0500 Body temperature 97.6 [degF] No Primary Care Physician [facility] 09-09-2022 01:56-0500 Diastolic blood pressure 85 mm[Hg] No Primary Care Physician [facility] 09-09-2022 01:56-0500 Systolic blood pressure 127 mm[Hg] No Primary Care Physician [facility] 09-09-2022 01:54-0500 Body height 167.64 cm No Primary Care Physician [facility] Work Phone: 09-09-2022 01:54-0500 Body mass index (BMI) [Ratio] 19.6 kg/m2 No Primary Care Physician [facility] 09-09-2022 01:54-0500 Body weight 55.3 kg No Primary Care Physician [facility] 09-05-2022 11:08-0500 Heart rate 108 /min No Primary Care Physician [facility] 09-05-2022 11:08-0500 Respiratory rate 120 /min No Primary Care Physician [facility] 09-05-2022 10:15-0500 Body height 167.64 cm No Primary Care Physician [facility] Work Phone: 09-05-2022 10:15-0500 Body mass index (BMI) [Ratio] 20.9 kg/m2 No Primary Care Physician [facility] 09-05-2022 10:15-0500 Body temperature 100.8 [degF] No Primary Care Physician [facility] 09-05-2022 10:15-0500 Body weight 58.96 kg No Primary Care Physician [facility] 09-05-2022 10:15-0500 Diastolic blood pressure 90 mm[Hg] No Primary Care Physician [facility] 09-05-2022 10:15-0500 SaO2% (BldA) [Mass fraction] 97 % No Primary Care Physician [facility] 09-05-2022 10:15-0500 Systolic blood pressure 119 mm[Hg] No Primary Care Physician [facility] 08-14-2022 08:13-0500 Diastolic blood pressure 90 mm[Hg] No Primary Care Physician [facility] 08-14-2022 08:13-0500 Heart rate 87 /min No Primary Care Physician [facility] 08-14-2022 08:13-0500 Respiratory rate 16 /min No Primary Care Physician [facility] 08-14-2022 08:13-0500 SaO2% (BldA) [Mass fraction] 98 % No Primary Care Physician [facility] 08-14-2022 08:13-0500 Systolic blood pressure 133 mm[Hg] No Primary Care Physician [facility] 08-14-2022 06:50-0500 Body height 167.64 cm No Primary Care Physician [facility] Work Phone: 08-14-2022 06:50-0500 Body mass index (BMI) [Ratio] 20.9 kg/m2 No Primary Care Physician [facility] 08-14-2022 06:50-0500 Body temperature 97.5 [degF] No Primary Care Physician [facility] 08-14-2022 06:50-0500 Body weight 58.96 kg No Primary Care Physician [facility] 07-26-2022 22:29-0400 SaO2% (BldA) [Mass fraction] 98 % No Primary Care Physician [facility] 07-26-2022 21:54-0400 Diastolic blood pressure 84 mm[Hg] No Primary Care Physician [facility] 07-26-2022 21:54-0400 Heart rate 63 /min No Primary Care Physician [facility] 07-26-2022 21:54-0400 Respiratory rate 16 /min No Primary Care Physician [facility] 07-26-2022 21:54-0400 Systolic blood pressure 127 mm[Hg] No Primary Care Physician [facility] 07-26-2022 17:37-0400 Body height 167.64 cm No Primary Care Physician [facility] Work Phone: 07-26-2022 17:37-0400 Body mass index (BMI) [Ratio] 20.9 kg/m2 No Primary Care Physician [facility] 07-26-2022 17:37-0400 Body temperature 98.3 [degF] No Primary Care Physician [facility] 07-26-2022 17:37-0400 Body weight 58.96 kg No Primary Care Physician [facility] 07-18-2022 10:39-0400 Heart rate 85 /min No Primary Care Physician [facility] 07-18-2022 10:39-0400 Respiratory rate 19 /min No Primary Care Physician [facility] 07-18-2022 08:35-0400 SaO2% (BldA) [Mass fraction] 95 % No Primary Care Physician [facility] 07-18-2022 08:24-0400 Body temperature 97.8 [degF] No Primary Care Physician [facility] 07-18-2022 08:24-0400 Diastolic blood pressure 83 mm[Hg] No Primary Care Physician [facility] 07-18-2022 08:24-0400 Systolic blood pressure 112 mm[Hg] No Primary Care Physician [facility] 07-16-2022 10:02-0400 Body weight 55 kg No Primary Care Physician [facility] 07-15-2022 22:43-0400 Body mass index (BMI) [Ratio] 19.5 kg/m2 No Primary Care Physician [facility] 07-15-2022 21:33-0400 Body temperature 97.9 [degF] No Primary Care Physician [facility] Work Phone: 07-15-2022 21:33-0400 Diastolic blood pressure 90 mm[Hg] No Primary Care Physician [facility] Work Phone: 07-15-2022 21:33-0400 Heart rate 83 /min No Primary Care Physician [facility] Work Phone: 07-15-2022 21:33-0400 Respiratory rate 18 /min No Primary Care Physician [facility] Work Phone: 07-15-2022 21:33-0400 SaO2% (BldA) [Mass fraction] 98 % No Primary Care Physician [facility] Work Phone: 07-15-2022 21:33-0400 Systolic blood pressure 159 mm[Hg] No Primary Care Physician [facility] Work Phone: 07-15-2022 20:56-0400 Body height 167.64 cm No Primary Care Physician [facility] Work Phone: 07-15-2022 20:56-0400 Body mass index (BMI) [Ratio] 20.9 kg/m2 No Primary Care Physician [facility] Work Phone: 07-15-2022 20:56-0400 Body weight 58.96 kg No Primary Care Physician [facility] Work Phone: 07-09-2022 07:41-0400 Heart rate 92 /min No Primary Care Physician [facility] 07-09-2022 07:41-0400 SaO2% (BldA) [Mass fraction] 100 % No Primary Care Physician [facility] 07-09-2022 06:37-0400 Respiratory rate 16 /min No Primary Care Physician [facility] 07-09-2022 06:04-0400 Body mass index (BMI) [Ratio] 20.5 kg/m2 No Primary Care Physician [facility] 07-09-2022 06:04-0400 Body temperature 97.6 [degF] No Primary Care Physician [facility] 07-09-2022 06:04-0400 Body weight 59.6 kg No Primary Care Physician [facility] 07-09-2022 06:04-0400 Diastolic blood pressure 114 mm[Hg] No Primary Care Physician [facility] 07-09-2022 06:04-0400 Systolic blood pressure 129 mm[Hg] No Primary Care Physician [facility] 05-26-2022 08:25-0400 Body temperature 96.9 [degF] No Primary Care Physician [facility] Work Phone: 05-26-2022 08:25-0400 Diastolic blood pressure 71 mm[Hg] No Primary Care Physician [facility] Work Phone: 05-26-2022 08:25-0400 Heart rate 87 /min No Primary Care Physician [facility] Work Phone: 05-26-2022 08:25-0400 Respiratory rate 16 /min No Primary Care Physician [facility] Work Phone: 05-26-2022 08:25-0400 SaO2% (BldA) [Mass fraction] 94 % No Primary Care Physician [facility] Work Phone: 05-26-2022 08:25-0400 Systolic blood pressure 95 mm[Hg] No Primary Care Physician [facility] Work Phone: 05-24-2022 10:56-0400 Body height 170.18 cm No Primary Care Physician [facility] Work Phone: 05-24-2022 10:56-0400 Body weight 54.7 kg No Primary Care Physician [facility] Work Phone: 05-24-2022 01:48-0400 Body mass index (BMI) [Ratio] 18.8 kg/m2 No Primary Care Physician [facility] Work Phone: 05-24-2022 00:57-0400 Body temperature 97.6 [degF] No Primary Care Physician [facility] Work Phone: 05-24-2022 00:57-0400 Diastolic blood pressure 70 mm[Hg] No Primary Care Physician [facility] Work Phone: 05-24-2022 00:57-0400 Heart rate 90 /min No Primary Care Physician [facility] Work Phone: 05-24-2022 00:57-0400 Respiratory rate 11 /min No Primary Care Physician [facility] Work Phone: 05-24-2022 00:57-0400 SaO2% (BldA) [Mass fraction] 97 % No Primary Care Physician [facility] Work Phone: 05-24-2022 00:57-0400 Systolic blood pressure 120 mm[Hg] No Primary Care Physician [facility] Work Phone: 05-23-2022 23:21-0400 Body height 170.18 cm No Primary Care Physician [facility] Work Phone: 05-23-2022 23:21-0400 Body mass index (BMI) [Ratio] 18.8 kg/m2 No Primary Care Physician [facility] Work Phone: 05-23-2022 23:21-0400 Body weight 54.43 kg No Primary Care Physician [facility] Work Phone: 03-28-2022 19:52-0400 Diastolic blood pressure 71 mm[Hg] No Primary Care Physician [facility] Work Phone: 03-28-2022 19:52-0400 Heart rate 79 /min No Primary Care Physician [facility] Work Phone: 03-28-2022 19:52-0400 Respiratory rate 16 /min No Primary Care Physician [facility] Work Phone: 03-28-2022 19:52-0400 SaO2% (BldA) [Mass fraction] 97 % No Primary Care Physician [facility] Work Phone: 03-28-2022 19:52-0400 Systolic blood pressure 99 mm[Hg] No Primary Care Physician [facility] Work Phone: 03-28-2022 15:53-0400 Body height 170.18 cm No Primary Care Physician [facility] Work Phone: 03-28-2022 15:53-0400 Body mass index (BMI) [Ratio] 18.8 kg/m2 No Primary Care Physician [facility] Work Phone: 03-28-2022 15:53-0400 Body temperature 98.3 [degF] No Primary Care Physician [facility] Work Phone: 03-28-2022 15:53-0400 Body weight 54.43 kg No Primary Care Physician [facility] Work Phone: 03-26-2022 12:22-0400 Body mass index (BMI) [Ratio] 19.4 kg/m2 No [facility] [facility] Work Phone: 03-26-2022 12:22-0400 Body temperature 98.4 [degF] No Primary Care Physician [facility] Work Phone: 03-26-2022 12:22-0400 Body weight 56.24 kg No Primary Care Physician [facility] Work Phone: 03-26-2022 12:22-0400 Diastolic blood pressure 74 mm[Hg] No Primary Care Physician [facility] Work Phone: 03-26-2022 12:22-0400 Heart rate 92 /min No Primary Care Physician [facility] Work Phone: 03-26-2022 12:22-0400 Respiratory rate 14 /min No Primary Care Physician [facility] Work Phone: 03-26-2022 12:22-0400 SaO2% (BldA) [Mass fraction] 98 % No Primary Care Physician [facility] Work Phone: 03-26-2022 12:22-0400 Systolic blood pressure 126 mm[Hg] No Primary Care Physician [facility] Work Phone: 03-22-2022 12:18-0400 Body temperature 97.9 [degF] No Primary Care Physician [facility] Work Phone: 03-22-2022 12:18-0400 Diastolic blood pressure 78 mm[Hg] No Primary Care Physician [facility] Work Phone: 03-22-2022 12:18-0400 Heart rate 88 /min No Primary Care Physician [facility] Work Phone: 03-22-2022 12:18-0400 Respiratory rate 13 /min No Primary Care Physician [facility] Work Phone: 03-22-2022 12:18-0400 SaO2% (BldA) [Mass fraction] 99 % No Primary Care Physician [facility] Work Phone: 03-22-2022 12:18-0400 Systolic blood pressure 121 mm[Hg] No Primary Care Physician [facility] Work Phone: 03-20-2022 15:48-0400 Body height 170.18 cm No Primary Care Physician [facility] Work Phone: 03-20-2022 15:48-0400 Body weight 55 kg No Primary Care Physician [facility] Work Phone: 03-19-2022 22:46-0400 Body mass index (BMI) [Ratio] 19 kg/m2 No Primary Care Physician [facility] Work Phone: 03-19-2022 21:51-0400 Body temperature 97.4 [degF] [facility] Work Phone: 03-19-2022 21:51-0400 Diastolic blood pressure 89 mm[Hg] [facility] Work Phone: 03-19-2022 21:51-0400 Heart rate 95 /min [facility] Work Phone: 03-19-2022 21:51-0400 Respiratory rate 16 /min [facility] Work Phone: 03-19-2022 21:51-0400 SaO2% (BldA) [Mass fraction] 99 % [facility] Work Phone: 03-19-2022 21:51-0400 Systolic blood pressure 128 mm[Hg] [facility] Work Phone: 03-19-2022 20:28-0400 Body height 170.18 cm [facility] Work Phone: 03-19-2022 20:28-0400 Body mass index (BMI) [Ratio] 19 kg/m2 [facility] Work Phone: 03-19-2022 20:28-0400 Body weight 55.15 kg [facility] Work Phone: 02-12-2022 20:44-0400 Diastolic blood pressure 96 mm[Hg] [facility] Work Phone: 02-12-2022 20:44-0400 Heart rate 85 /min [facility] Work Phone: 02-12-2022 20:44-0400 Respiratory rate 15 /min [facility] Work Phone: 02-12-2022 20:44-0400 Systolic blood pressure 134 mm[Hg] [facility] Work Phone: 02-12-2022 19:07-0400 Body height 167.64 cm [facility] Work Phone: 02-12-2022 19:07-0400 Body mass index (BMI) [Ratio] 20.1 kg/m2 [facility] Work Phone: 02-12-2022 19:07-0400 Body temperature 97.9 [degF] [facility] Work Phone: 02-12-2022 19:07-0400 Body weight 56.69 kg [facility] Work Phone: 02-12-2022 19:07-0400 SaO2% (BldA) [Mass fraction] 98 % [facility] Work Phone: Encounters Encounter Date Encounter Type Care Provider Facility Start: 03-29-2025 End: 03-29-2025 Emergency department patient visit No Primary Care Physician -Emergency Department Work Phone: Start: 01-19-2025 End: 01-19-2025 Emergency department patient [...] Non-patient / Non-visit Dr. Graham Tolbert DO [facility] Work Phone: Start: 11-11-2024 Non-patient / Non-visit Dr. Trang Valencia DO [facility] Work Phone: Start: 11-11-2024 ambulatory No Primary Car e Physician Facility:[facility] Start: 11-11-2024 End: 11-12-2024 Evaluation and management of inpatient Dr. Graham Tolbert DO -Intensive Care Unit Work Phone: Start: 10-22-2024 Non-patient / Non-visit Dr. Graham Tolbert DO [facility] Work Phone: Start: 10-21-2024 End: 10-23-2024 Evaluation and management of inpatient Dr. Graham Tolbert DO -Progressive Care Unit Work Phone: Start: 10-21-2024 ambulatory Graham Tolbert Facility:[facility] Start: 10-21-2024 Non-patient / Non-visit Dr. Troy Monroy MD [facility] Work Phone: Start: 09-19-2024 End: 09-19-2024 Emergency department patient visit Dr. Julius Matthews DO -Emergency Department Work Phone: Start: 09-07-2024 End: 09-07-2024 Emergency department patient visit Dr. Julius Matthews DO -Emergency Department Work Phone: Start: 08-03-2024 End: 08-03-2024 Emergency department patient visit No Primary Care Physician Facility:[facility] Start: 06-03-2024 End: 06-03-2024 Emergency department patient visit No Primary Care Physician Facility:[facility] Start: 06-02-2024 End: 06-02-2024 Emergency department patient visit No Primary Care Physician Facility:[facility] Start: 10-31-2023 Non-patient / Non-visit No Primary Care Physician [facility] Work Phone: Start: 10-30-2023 Non-patient / Non-visit No Primary Care Physician [facility] Work Phone: Start: 10-29-2023 End: 10-31-2023 Evaluation and management of inpatient No Primary Care Physician [facility] 3 Work Phone: Start: 10-29-2023 Non-patient / Non-visit No Primary Care Physician [facility] Work Phone: Start: 10-15-2023 End: 10-15-2023 Emergency department patient visit [facility]Emer[facility] Work Phone: Start: 09-01-2023 End: 09-01-2023 Emergency department patient visit [facility] Work Phone: Start: 08-28-2023 End: 08-06-2024 Telephone encounter Linda Jose MD Work Phone: General Surgery Comment on above: 09/05/2023 COLON MEDI NA + 10/03/2023 R[facility] Start: 08-28-2023 End: 08-28-2023 ambulatory LINDA JOSE Facility:[facility] Start: 08-28-2023 End: 08-28-2023 Patient encounter procedure Linda Jose MD Work Phone: General Surgery Comment on above: Right inguinal herni a; Screening for colon cancer Start: 08-26-2023 End: 08-26-2023 ambulatory LINDA JOSE Facility:[facility] Start: 05-29-2023 End: 05-29-2023 Emergency department patient visit No Primary Care Physician [facility]Emer[facility] Work Phone: Start: 04-28-2023 Non-patient / Non-visit No Primary Care Physician [facility] Work Phone: Start: 04-27-2023 Non-patient / Non-visit No Primary Care Physician [facility] Work Phone: Start: 04-26-2023 End: 04-28-2023 Evaluation and management of inpatient No Primary Care Physician [facility] Work Phone: Start: 04-26-2023 Non-patient / Non-visit No Primary Care Physician [facility] Work Phone: Start: 03-26-2023 End: 03-26-2023 Emergency department patient visit No Primary Care Physician [facility]Emergency [facility] Start: 02-23-2023 End: 02-24-2023 Emergency department patient visit No Primary Care Physician [facility] Start: 01-22-2023 End: 01-22-2023 Emergency department patient visit No Primary Care Physician [facility]Emergency [facility] Start: 12-24-2022 Non-patient / Non-visit No Primary Care Physician [facility] Start: 12-23-2022 End: 12-24-2022 Evaluation and management of [facility] Start: 12-15-2022 End: 12-15-2022 Emergency department patient visit [facility] Start: 12-01-2022 End: 12-02-2022 Emergency department patient visit [facility] Start: 11-03-2022 End: 11-03-2022 Emergency department patient visit No Primary Care Physician [facility]Emer[facility] Start: 10-23-2022 End: 10-23-2022 Emergency department patient visit No Primary Care Physician [facility] Start: 10-09-2022 End: 10-09-2022 Emergency department patient visit No Primary Care Physician [facility] Start: 09-09-2022 End: 09-09-2022 Emergency department patient visit No Primary Care Physician [facility] Start: 09-05-2022 End: 09-05-2022 Emergency department patient visit No Primary Care Physician [facility] Start: 08-14-2022 End: 08-14-2022 Emergency department patient visit No Primary Care Physician [facility]Emer[facility] Start: 07-26-2022 End: 07-26-2022 Emergency department patient visit No Primary Care Physician [facility] Start: 07-18-2022 Non-patient / Non-visit No Primary Care Physician [facility] Start: 07-17-2022 Non-patient / Non-visit No Primary Care Physician [facility] Start: 07-16-2022 Non-patient / Non-visit No Primary Care Physician [facility] Start: 07-15-2022 End: 07-18-2022 Evaluation and management of inpatient No Primary Care Physician [facility] Start: 07-09-2022 End: 07-09-2022 Emergency department patient visit No Primary Care Physician [facility]Emergency [facility] Start: 05-26-2022 Non-patient / Non-visit No Primary Care Physician [facility] Start: 05-25-2022 Non-patient / Non-visit No Primary Care Physician [facility] Start: 05-24-2022 Non-patient / Non-visit No Primary Care Physician [facility] Start: 05-24-2022 End: 05-26-2022 Evaluation and management of inpatient No Primary Care Physician [facility]Progressive [facility] Start: 03-28-2022 End: 03-28-2022 Emergency department patient visit No Primary Care Physician [facility]Emergency [facility] Start: 03-26-2022 End: 03-26-2022 Patient encounter procedure No Primary Care Physician [facility] Start: 03-22-2022 Non-patient / Non-visit No Primary Care Physician [facility] Start: 03-21-2022 Non-patient / Non-visit No Primary Care Physician [facility] Start: 03-20-2022 Non-patient / Non-visit No Primary Care Physician [facility] Start: 03-19-2022 End: 03-22-2022 Evaluation and management of inpatient [facility] Start: 03-19-2022 Non-patient / Non-visit No Primary Care Physician [facility] Start: 02-12-2022 End: 02-12-2022 Emergency department patient visit [facility]Emer[facility] Start: 06-05-2018 End: 06-06-2018 Emergency department patient visit ED PSYCHIATRY TEAM CONSULT [facility] Procedures Date Procedure Procedure Detail Performing Clinician Start: 03-29-2025 X-ray of chest, PA a nd lateral views No Primary Care Physician Start: 03-29-2025 Estimated creatinine clearance No Primary Care Physician Start: 01-19-2025 X-ray of chest, PA a [...] DTaP,Tdap,Td Vaccine (3 - Td or Tdap) [facility] Start: 03-29-2025 [facility] Start: 03-29-2025 [facility] Start: 01-19-2025 [facility] Start: 12-13-2024 [facility] Start: 2024 [facility] Start: 2024 [facility] Start: 11-20-2024 [facility] Start: 11-12-2024 Patient discharge [facility] Start: 11-12-2024 End: 11-12-2024 [facility] Start: 11-12-2024 Care regimes management [facility] Start: 11-12-2024 Notification of physician [facility] Start: 11-11-2024 Assessment of risk o f venous thromboembolism [facility] Start: 11-11-2024 Catheterization of vein [facility] Start: 11-11-2024 Continuous pulse oximetry [facility] Start: 11-11-2024 Elevation of head of bed [facility] Start: 11-11-2024 Incentive spirometry [facility] Start: 11-11-2024 Inhalation therapy procedure [facility] Start: 11-11-2024 Insertion of cathete r into peripheral vein [facility] Start: 11-11-2024 Measuring intake and output [facility] Start: 11-11-2024 Oxygen therapy [facility] Start: 11-11-2024 Patient referral to dietitian [facility] Start: 11-11-2024 Physiotherapy of chest [facility] Start: 11-11-2024 Providing care accor ding to standard [facility] Start: 11-11-2024 Referral to service [facility] Start: 11-11-2024 Tobacco use cessatio n education [facility] Start: 11-11-2024 Vital signs measurements [facility] Start: 11-11-2024 End: 11-11-2024 [facility] Start: 11-11-2024 Following clinical pathway protocol [facility] Start: 11-11-2024 Admission procedure [facility] Start: 11-11-2024 Consultation [facility] Start: 11-11-2024 Dual pressure sponta neous ventilation support [facility] Start: 11-11-2024 Patient referral to [facility] Start: 10-22-2024 Patient discharge [facility] Start: 10-22-2024 Physiotherapy of chest [facility] Start: 10-21-2024 Following clinical pathway protocol [facility] Start: 10-21-2024 End: 10-21-2024 [facility] Start: 10-21-2024 Ambulation without limitation [facility] Start: 10-21-2024 Assessment of risk o f venous thromboembolism [facility] Start: 10-21-2024 Inhalation therapy procedure [facility] Start: 10-21-2024 Insertion of cathete r into peripheral vein [facility] Start: 10-21-2024 Measuring intake and output [facility] Start: 10-21-2024 Oxygen therapy [facility] Start: 10-21-2024 Providing care accor ding to [facility] Start: 10-21-2024 Referral to service [facility] Start: 10-21-2024 Admission procedure [facility] Start: 10-21-2024 Consultation [facility] Start: 10-21-2024 Patient referral to dietitian [facility] Start: 09-19-2024 [facility] Start: 09-19-2024 [facility] Start: 09-07-2024 End: 09-07-2024 [facility] Start: 06-02-2024 Covid-19 Vaccine () Covid-19 Vaccine () [facility] Start: 06-02-2024 Influenza vaccination Influenza Vacc ine (#1) [facility] Start: 10-31-2023 Patient discharge [facility] Start: 10-29-2023 Assessment of risk o f venous thromboembolism [facility] Start: 10-29-2023 Inhalation therapy procedure [facility] Start: 10-29-2023 Introduction of urin mainor catheter [facility] Start: 10-29-2023 Notification of physician [facility] Start: 10-29-2023 Provision of activit y privileges [facility] Start: 10-29-2023 Referral to service [facility] Start: 10-29-2023 Vital signs measurements [facility] Start: 10-29-2023 End: 10-29-2023 [facility] Start: 10-29-2023 Following clinical pathway protocol [facility] Start: 10-29-2023 Hospital admission, emergency, from emergency room, medical nature [facility] Start: 10-29-2023 Admission procedure [facility] Start: 10-29-2023 [facility] Start: 10-15-2023 [facility] Start: 09-01-2023 [facility] Start: 06-02-2023 Covid-19 Vaccine ( season) Covid-19 Vaccine () [facility] Start: 06-02-2023 Influenza vaccination Influenza Vacc ine (#1) [facility] Start: 04-28-2023 Patient discharge [facility] Start: 04-27-2023 [facility] Start: 04-26-2023 Following clinical pathway protocol [facility] Start: 04-26-2023 Assessment of risk o f venous thromboembolism [facility] Start: 04-26-2023 Inhalation therapy procedure [facility] Start: 04-26-2023 Introduction of urin mainor catheter [facility] Start: 04-26-2023 Notification of physician [facility] Start: 04-26-2023 Oxygen therapy [facility] Start: 04-26-2023 Provision of activit y privileges [facility] Start: 04-26-2023 Referral to service [facility] Start: 04-26-2023 Tobacco use cessatio n education [facility] Start: 04-26-2023 Vital signs measurements [facility] Start: 04-26-2023 [facility] Start: 04-26-2023 Admission procedure [facility] Start: 04-26-2023 Hepatitis B surface antigen measurement [facility] Start: 04-26-2023 Hepatitis C antibody measurement [facility] Start: 04-26-2023 Procedure [facility] Start: 04-26-2023 Patient referral to [facility] Start: 12-24-2022 Patient discharge [facility] Start: 12-23-2022 Assessment of risk o f venous thromboembolism [facility] Start: 12-23-2022 Inhalation therapy procedure [facility] Start: 12-23-2022 Introduction of urin mainor catheter [facility] Start: 12-23-2022 Notification of physician [facility] Start: 12-23-2022 Oxygen therapy [facility] Start: 12-23-2022 Provision of activit y privileges [facility] Start: 12-23-2022 Referral to service [facility] Start: 12-23-2022 Vital signs measurements [facility] Start: 12-23-2022 [facility] Start: 12-23-2022 Following clinical pathway protocol [facility] Start: 12-23-2022 Measurement of occul t blood in stool specimen using immunoassay [facility] Start: 12-23-2022 Admission procedure [facility] Start: 12-23-2022 Vitamin B12 measurement [facility] Start: 12-23-2022 Patient referral to [facility] Start: 11-03-2022 Simple repair f/e/e/ n/l/m 2.5cm/< RPR F/E/E/N/L/M 2.5 CM/< [facility] Start: 10-02-2022 Depression Assessment Depression Ass [facility] Start: 07-26-2022 Inhalation therapy procedure [facility] Start: 07-18-2022 Patient discharge [facility] Start: 07-16-2022 Following clinical pathway protocol [facility] Start: 07-15-2022 Assessment of risk o f venous thromboembolism [facility] Start: 07-15-2022 Fall prevention [facility] Start: 07-15-2022 Inhalation therapy procedure [facility] Start: 07-15-2022 Insertion of cathete r into peripheral vein [facility] Start: 07-15-2022 Introduction of urin mainor catheter [facility] Start: 07-15-2022 Notification of physician [facility] Start: 07-15-2022 Providing care accor ding to standard [facility] Start: 07-15-2022 Provision of activit y privileges [facility] Start: 07-15-2022 Referral to service [facility] Start: 07-15-2022 Tobacco use cessatio n education [facility] Start: 07-15-2022 Vital signs measurements [facility] Start: 07-15-2022 [facility] Start: 07-15-2022 Admission procedure [facility] Start: 07-15-2022 Verification routine [facility] Work Phone: Start: 07-15-2022 [facility] Work Phone: Start: 07-15-2022 Patient referral to dietitian [facility] Start: 07-09-2022 Pressurized/nonpress urize d inhalation treatment AIRWAY INHALATION TREATMENT [facility] Start: 05-26-2022 Patient discharge [facility] Work Phone: Start: 05-24-2022 Provision of activit y privileges [facility] Work Phone: Start: 05-24-2022 Assessment of risk o f venous thromboembolism [facility] Work Phone: Start: 05-24-2022 Insertion of cathete r into peripheral vein [facility] Work Phone: Start: 05-24-2022 Providing care accor ding to standard [facility] Work Phone: Start: 05-24-2022 [facility] Work Phone: Start: 05-24-2022 Following clinical pathway protocol [facility] Work Phone: Start: 05-24-2022 Verification routine [facility] Work Phone: Start: 05-24-2022 Admission procedure [facility] Work Phone: Start: 05-24-2022 Patient referral to dietitian [facility] Work Phone: Start: 03-28-2022 [facility] Work Phone: Start: 03-22-2022 Patient discharge [facility] Work Phone: Start: 03-19-2022 Following clinical pathway protocol [facility] Work Phone: Start: 03-19-2022 Assessment of risk o f venous thromboembolism [facility] Work Phone: Start: 03-19-2022 Catheterization of vein [facility] Work Phone: Start: 03-19-2022 Insertion of cathete r into peripheral vein [facility] Work Phone: Start: 03-19-2022 Providing care [facility] [place] Work Phone: Start: 03-19-2022 Referral to service [facility] Work Phone: Start: 03-19-2022 [facility] Work Phone: Start: 03-19-2022 Admission procedure [facility] Work Phone: Start: 03-19-2022 Verification routine [facility] Work Phone: Start: 03-19-2022 Patient referral to dietitian [facility] Work Phone: Start: 02-12-2022 Patient discharge [facility] Work Phone: Start: 2020 Cologuard (FIT-DNA) Cologuard (FIT-D NA) [facility] Start: 2020 Colonoscopy Colonoscopy [facility] Start: 2020 Colorectal Cancer Screening Colorectal Cancer Screening [facility] Start: [address] Colonography [facility] Start: 2020 Diabetes Screening Diabetes Screenin g [facility] Start: 2020 Fecal Occult Blood Fecal Occult Bloo d [facility] Start: 2020 Screening for malign ant neoplasm of colon [facility] Start: 2020 Sigmoidoscopy Sigmoidoscopy [facility] Start: 2010 Lipid 1996 panel - S davi or Plasma Lipid Screening [facility] Start: 2010 Lipid panel Lipid Screening [facility] Start: 1994 Hepatitis B Vaccine (1 of 3 - 19+ 3-dose series) Hepatitis B Vaccine (1 of 3 - 19+ 3-dose series) [facility] Start: 1993 Anxiety Screening Anxiety Screening [facility] Start: 1993 Depression Screening [facility] Start: 1993 Hepatitis C Screening Hepatitis C [facility] Start: 1993 Hepatitis C screening Hepatitis C [facility] Start: 1993 HIV Screening HIV Screening [facility] Start: 1993 HIV screening HIV Screening [facility] Start: 1975 Hepatitis B Vaccine (1 of 3 - 3-dose series) Hepatitis B Vaccine (1 of 3 - 3-dose series) [facility] Amphetamine [Mass/vo lume] in Urine [facility] Benzodiazepine measurement, urine [facility] Bilirubin measuremen t, urine [facility] Cocaine measurement, urine [facility] Hemoglobin [Presence ] in Urine [facility] Hepatitis B virus bazan rface IgG Ab [Presence] in Serum [facility] HIV 1+2 Ab+HIV1 p24 Ag [Presence] in Serum or Plasma by Immunoassay [facility] Measurement of 3,4-methylenedioxymethamp hetamine in urine [facility] Measurement of keton es in urine using dipstick [facility] Methadone measuremen t, urine [facility] Microscopic urinalysis [facility] Patient Education [facility] Work Phone: Patient referral [facility] Work Phone: PCR for Hepatitis C [facility] pH of Urine [facility] pH of Urine [facility] Phencyclidine [Prese nce] in Urine [facility] End: 08-28-2024 Screening colonoscopy COLONOSCOPY SCREENING Endoscopy Routine Screening for colon cancer 1 Occurrences starting 08/28/2023 until 08/28/2024 [facility] Work Phone: Comment on above: 1 Occurrences starti ng 08/28/2023 until 08/28/2024 Specific gravity of Urine [facility] Treponema sp Ab [Presence] in Serum [facility] Troponin T.cardiac [Mass/volume] in Serum or Plasma by High sensitivity method [facility] Urine barbiturate measurement [facility] Urine blood test [facility] Urine cannabinoid measurement [facility] Urine dipstick for glucose [facility] Urine dipstick for leukocyte esterase [facility] Urine dipstick for nitrite [facility] Urine dipstick for protein [facility] Urine examination [facility] Urine microscopy: epithelial cells [facility] Urine Microscopy: wh ite cells [facility] Urine opiate measurement [facility] Urobilinogen [Presen ce] in Urine [facility] Immunizations Immunization Date Immunization Notes Care Provider Fa cility 10-21-2024 influenza, injectabl e, quadrivalent, preservative free No Primary Care Physician [facility] 11-03-2022 tetanus toxoid, redu kathryn diphtheria toxoid, and acellular pertussis vaccine, adsorbed No Primary Care Physician [facility] 03-17-2022 Covid (Moderna) No Primary C are Physician [facility] 03-16-2022 Covid (Moderna) No Primary C are Physician [facility] 05-22-2021 Covid (Moderna) [facility] 02-22-2021 Covid ([facility]) [facility] 09-23-2020 influenza, injectabl e, quadrivalent, preservative free [facility] 09-23-2020 influenza, seasonal, injectable [facility] 09-23-2020 influenza, seasonal, injectable, preservative free Linda Jose MD Work Phone: [facility] Work Phone: 09-23-2020 influenza virus vacc ine, unspecified formulation Linda Jose MD Work Phone: [facility] 02-25-2017 tetanus toxoid, redu kathryn diphtheria toxoid, and acellular pertussis vaccine, adsorbed [facility] 08-02-2013 pneumococcal polysaccharide vaccine, 23 valent Linda Jose MD Work Phone: [facility] Work Phone: 08-02-2013 Pneumococcal Vaccine [facility] Work Phone: 08-02-2013 pneumococcal vaccine , unspecified formulation No Primary Care Physician [facility] Payers Date Payer Category Payer Self-pay [id number] 2022 Medicaid [employer] [facility] MEDICAID [id number] 2022-Present [phone] [address] [place] [address] Medicaid [id number] 2013 Medicaid [id number] 2013 Unknown [id number] Unknown [id number] Unknown [id number] Unknown [id number] Unknown [id number] Unknown [id number] Unknown [id number] Unknown [id number] Unknown [id number] Unknown [id number] Unknown [id number] Unknown [id number] Unknown [id number] Unknown [id number] Unknown [id number] Unknown [id number] Unknown [id number] Unknown [id number] Social History Date Type Detail Facility Start: 02-12-2022 End: 03-29-2025 Tobacco smoking status NHIS Unknown if ever smoked [facility] Start: 11-22-2020 None [facility] Start: 12-05-2020 Marijuana [facility] Start: 11-22-2020 Homeless [facility] Start: 02-20-2021 Non-smoker [facility] Start: 1975 Sex Assigned At Male [facility] Start: 08-26-2023 End: 01-19-2025 Tobacco smoking status NHIS Never smoked tobacco [facility] Start: 08-26-2023 Tobacco use and exposure Former smokeless tobacco user [facility] Start: 08-28-2023 Alcohol intake Current drinke r of alcohol (finding) [facility] Start: 08-28-2023 History of Social function [facility] Start: 08-28-2023 Tobacco use panel [facility] National Score (1-100), lower number is lower risk 89 [facility] Start: 08-26-2023 Tobacco [facility] Start: 1975 Sex Assigned At Not on file [facility] Start: 12-13-2024 End: 01-19-2025 Sex Male (finding) [facility] Goals Date Patient Goal Desired Activity /State Functional Status Date Assessment Result Facility 11-12-2024 Functional status Ambulates [facility] Work Phone: 10-23-2024 Functional status Ambulates [facility] Work Phone: 10-31-2023 Functional status Up ad laverne [facility] Work Phone: 04-28-2023 Functional status Ambulates;Up a d laverne;Bathroom Privilege [facility] Work Phone: 04-28-2023 Functional status Ambulates;Up a d laverne;[facility] Work Phone: 12-24-2022 Functional status Ambulates [facility] Work Phone: 07-18-2022 Functional status Activity Ability [facility] Work Phone: 07-17-2022 Functional status Up ad laverne [facility] Work Phone: 05-26-2022 Functional status Ambulates;Up ad laverne [facility] Work Phone: 03-22-2022 Functional status [facility] Work Phone: 03-21-2022 Functional status Ambulates;Up ad laverne [facility] Work Phone: Mental Status Date Assessment Result Facility 03-29-2025 Cognitive function Level Of Cons ciousness Awake;Drowsy [facility] Work Phone: 11-12-2024 Cognitive function Voice/Name [facility] Work Phone: 10-22-2024 Cognitive function Voice/Name [facility] Work Phone: 10-31-2023 Cognitive function Voice/Name [facility] Work Phone: 10-15-2023 Cognitive function Level Of Cons ciousness Awake;Alert;Appropriate;Follow s Commands [facility] Work Phone: 09-01-2023 Cognitive function Level Of Cons ciousness Awake;Alert;Appropriate;Follow s Commands [facility] Work Phone: 04-28-2023 Cognitive function Voice/Name [facility] Work Phone: 02-23-2023 Cognitive function Level Of Cons ciousness Awake;Alert;Appropriate;Follow s Commands [facility] Work Phone: 12-24-2022 Cognitive function Speech Pattern Garbled [facility] Work Phone: 12-24-2022 Cognitive function Appropriate;Cooperativ e [facility] Work Phone: 12-01-2022 Cognitive function Level Of Cons ciousness Awake;Alert;Appropriate;Follow s Commands [facility] Work Phone: 10-23-2022 Cognitive function Level Of Cons ciousness Awake;Alert;Appropriate;Follow s Commands [facility] Work Phone: 08-14-2022 Cognitive function Level Of Cons ciousness Awake;Alert;Appropriate;Follow s Commands [facility] Work Phone: 07-18-2022 Cognitive function Guarded [facility] Work Phone: 07-17-2022 Cognitive function Mood Description Appro priate [facility] Work Phone: 05-26-2022 Cognitive function Voice/Name [facility] Work Phone: 03-22-2022 Cognitive function Drowsy [facility] Work Phone: 03-21-2022 Cognitive function Anxious [facility] Work Phone: 02-12-2022 Cognitive function Level Of Cons ciousness Awake;Alert;Appropriate;Follow s Commands [facility] Work Phone: Clinical Notes 11-03-2022 to 03-29-2025 Note Date & Type Note Facility 03-29-2025 Discharge summary [facility] 03-29-2025 Radiology Diagnostic study note [facility] Imaging Services [address] [place] [address] Chest PA and Lateral MR#: [id number] Acct: [id number] Name: MICHAEL MCNEILL SANTOS Rep #: [id number] : 1975 M 49 From: Shelli John MD PCP: Care Physician,No Primary Status: REG ER Study:Chest PA and Lateral Date of Exam: 03/29/25 Exam# [id number] Ordering Dr: Yonny Braswell DO PROCEDURE: CHEST PA AND LATERAL 03/29/2025 REASON FOR EXAM: CHEST PAIN TECHNIQUE: CHEST PA AND LATERAL COMPARISON: Chest radiograph 12/2024. FINDINGS: Hardware: None. Heart: The heart size is normal. Mediastinum: The mediastinal contour is stable. Lungs: Stable findings of emphysema. No focal consolidation, pleural effusion or pneumothorax. Bones: The bones are unremarkable. RAD/Chest PA and Lateral IMPRESSION: COPD. NO ACUTE FINDINGS. Reading Location: [id number] CC: Dr. Sebastian Braswell DO; No Primary Care Physician ~ Driver/Refuse Collector: Signed [facility] 03-29-2025 Discharge summary Note Date/Time March 29, 2025 10:39pm [facility] Medical Records Department [address] [place] [address] Emergency Department Summary 03/29/25 MR#: [id number] Acct: [id number] Name: MICHAEL MCNEILL SANTOS Rep #:[id number] : 1975 49 From: Sebastian Braswell DO PCP: Care Physician,No Primary Status :REG ER Location: ED HPI History of Present Illness Chief Complaint: Weakness Narrative Narrative: Patient is a 49-year-old male with past medical history of alcohol abuse, methamphetamine abuse, bipolar disorder anxiety, depression,, hypertension who presents to the emergency department with a chief complaint of being found by police in the community weak and not feeling well. Patient states that currently he just does not feel well overall. Patient denies any history of IV drug use states that he smokes meth. PFSH PFS Medical History ETOH abuse Methamphetamine abuse Asthma Depression Anxiety Methamphetamine abuse Ankle fracture, left Bipolar disorder Depression Anxiety Past history of chewing tobacco use Asthma with COPD Anxiety and depression Inguinal hernia bilateral, non-recurrent Hypertension Stroke/cerebrovascular accident Alcohol abuse Bulla of lung GERD (gastroesophageal reflux disease) Home Medications ?Medication ?Instructions ?Recorded ?Last Taken ?Type NK 03/29/25 Unknown History Allergy/AdvReac Type Severity Reaction Status Date / Time No Known Allergies Allergy Verified 03/29/25 17:47 Family History Father Alcoholism CAD (coronary artery disease) Heart disease Hypertension Mother Alcoholism Seizures Surgical History History of ankle surgery Social History housing: apartment Smoking Status: Unknown if ever smoked Smokeless tobacco user: chewing tobacco how long ago did patient quit smoking: Notes no cig tob use, prior chew only but no current, ongoing cannabis use. alcohol intake: current alcohol intake frequency: a few times a week details: 5-6 beers daily, occasionally whiskey. substance use type: marijuana, amphetamines, opiates and methamphetamine ROS ROS ED ROS Narrative Constitutional: Denies fevers, chills, headaches, lightness, dizziness Eyes: Denies change in vision double vision blurry vision Cardiovascular: Complains of chest pain denies palpitations Respiratory: Denies coughing wheezing shortness of breath Abdomen: Denies abdominal pain nausea vomit diarrhea : Denies urinary symptoms Neurological: Denies numbness, wheeze, tingling Musculoskeletal: Denies back pain Skin: Any rashes or lesions EXAM Physical Exam Narrative Exam Narrative: General: Patient lying in bed rest comfortably did not appear to be acute distress Head: Atraumatic, normocephalic Eyes: PERRL bilaterally, EOMI bilaterally, no conjunctival injection noted Neck: Soft, supple, trachea midline Cardiovascular: Regular rate and rhythm no murmurs gallops rubs noted Respiratory: Clear to auscultation bilaterally no rales rhonchi or wheezes noted Abdomen: Soft, nondistended, nontender to palpation Extremities: +4/5 strength noted in the bilateral upper and lower extremities, radial pulses +2/4 in the bilateral extremities, no pedal edema exam Neurological: Patient following commands knew that he was at the hospital the year is 2024 he was able to tell me his name. NIH of 0 GCS 15 Skin: Warm, dry, intact no rashes or lesions noted Const Vital Signs: 03/29/25 17:47 03/29/25 17:57 03/29/25 19:00 Temperature 96.9 F L Temperature Source Temporal Pulse Rate 66 Respiratory Rate 18 Respiratory Effort Normal Non-Labored Respiratory Pattern Normal Blood Pressure 101/78 Blood Pressure Mean 85 Pulse Ox 100 100 Oxygen Delivery Method Room Air Room Air 03/29/25 19:17 03/29/25 19:30 03/29/25 21:00 Temperature 96.7 F L Temperature Source Axillary Pulse Rate 74 79 Respiratory Rate 16 16 Respiratory Effort Respiratory Pattern Blood Pressure 127/78 H 133/79 H Blood Pressure Mean 94 97 Pulse Ox 98 100 Oxygen Delivery Method Room Air Room Air Room Air MDM MDM MDM Narrative Medical decision making narrative: Patient is a 49-year-old male who presented to the emergency department the chief complaint of being found out in the community with generalized weakness and was brought in by police. On the differential diagnosis includes but limited to polysubstance abuse, electrolyte abnormality, ACS, pneumonia. Once workup is obtained and reviewed he will be reevaluated. Patient be given IV fluids for hydration. Patient CBC was reviewed showed no evidence leukocytosis white blood count normal 7.1, hemoglobin 13, platelet count was 338. Patient's sodium normal 141,potassium normal 3.5, creatinine normal at 1.01. Patient's AST and ALT are 54 and 86 respectively. Patient troponin was less than 6 with a delta troponin of 7. Patient's EKG was reviewed which showed sinus rhythm with a rate of 77 bpm. Patient lipase normal at 24. Patient's chest x-ray reviewed by myself by radiology showed COPD no acute findings. Patient was complaining of chest pain again therefore repeat EKG was performed showed sinus rhythm with a rate of 75 bpm. This is unchanged from EKG that was originally obtained. Patient ambulated well in the emergency department no difficulty no hypoxia no tachycardia. He was advised to follow-up with In outpatient setting and return with worsening symptoms or concerns. He is agreeable to plan all course concerns answered is discharged home in stable condition Lab Data Labs: Laboratory Results - last 24 hr 03/29/25 03/29/25 17:54 20:39 WBC 7.1 RBC 4.19 L Hgb 13.0 Hct 38.9 L MCV 92.8 MCH 31.0 MCHC 33.4 RDW Std Deviation 43.4 RDW Coeff of Bridger 12.7 Plt Count 338 MPV 9.5 Immature Gran % (Auto) 0.300 Neut % (Auto) 59.0 Lymph % (Auto) 28.8 Montgomery % (Auto) 7.3 Eos % (Auto) 3.8 Baso % (Auto) 0.8 Absolute Neuts (auto) 4.2 Absolute Lymphs (auto) 2.05 Nucleated RBC % 0 Sodium 141 Potassium 3.5 Chloride 102 Carbon Dioxide 22.8 Anion Gap 17 H BUN 24 H Creatinine 1.01 Estim Creat Clear Calc 79.84 Est GFR (MDRD) Non-Af 91 BUN/Creatinine Ratio 23.3 H Glucose 244 H Calcium 9.3 Total Bilirubin 0.46 AST 54 H ALT 86 H Alkaline Phosphatase 55 Troponin T High Sens < 6 Troponin T Hi Sens 2 Hr 7 Total Protein 7.7 Albumin 4.4 Globulin 3.2 Albumin/Globulin Ratio 1.4 Lipase 24 Radiography Diagnostic Testing: Clinical Impression(s) from Imaging Studies Chest X-Ray 03/29/25 18:40 IMPRESSION: COPD. NO ACUTE FINDINGS. Reading Location: [id number] Discharge Plan Triage Chief Complaint: Weakness ED Provider: Braswell,Sebastian Dx/Rx/DC Orders Clinical Impression: Chest pain Prescriptions: No Action NK Primary Care Provider: Care Physician,No Primary Referrals: Care Physician,No Primary [Primary Care Provider] - Yolanda Garcia KENO ATTENDANT-C [[facility]] - Activity Restrictions/Additional Instructions: Follow-up with your doctor in outpatient. Return with worsening symptoms or anyconcerns. Print Language: St Helenian Disposition Disposition: Home, Self Care What to do if you have Problems For any increased pain, shortness of breath, bleeding, nausea or vomiting, chestpain, or any unexpected problems, contact your Primary Care Provider. Call [facility] ([phone]) or report to the closest Emergency Room. Call 911 if necessary. 03/29/252238 <Electronically signed by Sebastian Braswell DO> Cosigner Signature (if applicable): CC: No Primary Care Physician ~ Signed [facility] Work Phone: 1(286) 851-950204-20-2025 Radiology Diagnostic study note [facility] Imaging Services [address] [place] [id number] Chest PA and Lateral MR#: [id number] Acct: [id number] Name: MICHAEL MCNEILL SANTOS Rep #: [id number] : 1975 M 49 From: Shelli John MD PCP: Care Physician,No Primary Status: REG ER Study:Chest PA and Lateral Date of Exam: 01/19/25 Exam# [id number] Ordering Dr: Yee Castillo PROCEDURE: CHEST PA AND LATERAL 01/19/2025 REASON [...] CHANGE SINCE THE PRIOR EXAM. Reading Location: [facility] CC: MALIA Moctezuma; No Primary Care Physician ~ Driver/Refuse Collector: Signed [facility]04-20-2025 Hospital Discharge instructions Additional Instructions Follow-up with the [facility] across the street since you do not have a PCP. Their phone number is [phone].[facility] Work Phone: 1(432) 721-793703-14-2025 Discharge summary [facility] Medical Records Department [address] [place] [address] Emergency Department Summary 12/13/24 MR#: [id number] Acct: [id number] Name: MICHAEL MCNEILL SANTOS Rep #:[id number] : 1975 49 From: Homar Nieves MD [...] having continued cough and mild shortness of breath.He states last time he was here, he received a small albuterol inhaler, but states he needs the big 1. He denies any fever, no chills, no chest pain associated with this. No leg swelling. He is here for analbuterol inhaler prescription and at least 2 weeks of cough if not longer. [facility] Medical History ETOH abuse Methamphetamine abuse Asthma [...] over the last few months, worse over thelast few weeks. Out of albuterol inhaler. No [...] or mass. I discussed with himreceiving another albuterolMDI from the emergency department, but he states that it was dinky, and he prefers a prescriptionfor an albuterol inhaler. Hewas referred to a primary care provider. On my individual interpretation of his chest x-ray, there is no consolidation orpneumonia, no pneumothorax. I reviewed the radiology report which confirms my independent interpretation. Additionally,they comment on a pulmonary nodule and worsening [...] midlung. Correlation with CT recommended. Reading Location: [facility] Discharge Plan Triage Chief Complaint: Cough ED Provider: Homar Nieves Dx/Rx/DC Orders Clinical Impression: Cough, Asthma exacerbation, Has run out of medications, Pulmonary nodule Instructions: ED Asthma, Acute (Adult), ED Cough Chronic Uncertain Cause Adult,ED Pulmonary Nodule,Solitary Prescriptions: New albuterol sulfate [Ventolin HFA] 90 [...] Care Physician,No Primary [Primary Care Provider] - Beam,Zebulun VSC, KENO ATTENDANT-C [[facility]] - 1 Week if not improving Activity Restrictions/Additional Instructions: Use albuterol inhaler 1 to 2 puffs inhaled every 4-6 hours as needed for shortness of breath. Follow-up with a primary care provider regarding your chronic cough. Return to the emergency department with increased difficulty breathing, new or worsening symptoms. Print Language: [place] Disposition Disposition: Home, Self Care What to do if you have Problems For any increased pain, shortness of breath, bleeding, nausea or vomiting, chestpain, or any unexpected problems, contact your Primary Care Provider. Call [facility] ([phone]) or report tothe closest Emergency Room. Call 911 if necessary. 12/13/24 1346 Cosigner Signature (if applicable): CC: No Primary Care Physician ~ Signed [facility]03-14-2025 Radiology Diagnostic study note [facility] Imaging Services [address] [place] [address] [id number] Chest PA and Lateral MR#: [id number] Acct: [id number] Name: MICHAEL MCNEILL SANTOS Rep #: [id number] : 1975 M 49 From: Benjamin Alvarez MD PCP: Care Physician,No Primary Status: REG ER Study:Chest PA and Lateral Date of Exam: 12/13/24 Exam# [id number] Ordering Dr: Homar Nieves MD PROCEDURE: CHEST [...] midlung. Correlation with CT recommended. Reading Location: [facility] CC: Dr. Homar Nieves MD; No Primary Care Physician ~ Driver/Refuse Collector: Signed [facility]02-11-2025 [facility] Medical Records Department [address] [place] [address] Discharge Summary 11/12/24 1140 MR#: [id number] Acct: [id number] Name: MICHAEL MCNEILL SANTOS Rep #: [id number] : 1975 48 From: Graham Tolbert DO PCP: Care Physician,No Primary Status:DIS IN Location: ICU [id number] Providers Date of Admission: 11/11/24 Primary Care [...] % (Auto) 67.3, Lymph % (Auto) 23.1, Montgomery % (Auto) 5.6, Eos % (Auto) 2.9, [...] 94.5 H, Lymph % (Auto) 3.5 L, Montgomery % (Auto) 1.5, Eos % (Auto) 0.0, [...] 41 L, Total Protein (more content not included)...[facility]01-21-2025 [facility] Medical Records Department [address] [place] [address] Discharge Summary 10/22/24 1502 MR#: [id number] Acct: [id number] Name: MICHAEL MCNEILL SANTOS Rep #: [id number] : 1975 48 From: Graham Toblert DO PCP: Care Physician,No Primary Status:ADM IN Location: [place] [id number] Providers Date of Admission: 10/21/24 Primary Care [...] % (Auto) 64.3, Lymph % (Auto) 20.6, Montgomery % (Auto) 6.9, Eos % (Auto) 7.3 H, Baso % (Auto) 0.7, Absolute Neuts (auto) 6.3, Absolute Lymphs (auto) 2.02, Nucleated RBC % 0, D- Dimer Quant (PE/DVT) 1.14 H*, Sodium 142, Potassium [...] 92.3 H, Lymph % (Auto) 6.1 L, Montgomery % (Auto) 1.0, Eos % (Auto) 0.0, [...] Call To/Read Back Yes (more content not included)...[facility]01-20-2025 Evaluation note* Diagnosis Onset Date Resolution Status Admit Date Acute asthma exacerbation resolved October 21, 2024 7:37pm Methamphetamine abuse resolved Oct 7:37pm Acute respiratory failure wi hypoxia and hypercapnia acute November 11, 2024 5:09pm Asthma exacerbation acute Febru mainor 2024 5:09pm Hyperglycemia acute November 112024 5:09pm Leukocytosis acute November 5:09pm Respiratory acidosis acute 2024 5:09pm [facility] Work Phone: 1(561) 811-898701-20-2025 [facility] Medical Records Department [address] [place] [address] History Physical Exam 10/21/241925 MR#: [id number] Acct: [id number] Name: MICHAEL MCNEILL SANTOS Rep #: [id number] : 1975 48 From: Troy Monroy MD [...] x-ray is equivocal as well as CBC. [facility] Medical History (Updated 10/21/24 @ 19:35 by [...] Flow Rate (L/min) Fract (more content not included)...[facility]01-30-2024 Progress note Author Graham Tolbert [facility] October 31, 2023 10:15am Note Date/Time October 31, 2023 7 :34am [facility] Medical Records Department [address] [place] [address] Progress Note - Hospitalist 10/31/23 0731 MR#: [id number] Acct: [id number] Name: MICHAEL MCNEILL Rep #:[id number] : 1975 47 From: Graham Tolbert DO PCP: Care Physician,No Primary Status :ADM IN Location: [place] [address] Reason for Visit Reason for Visit: Diagnoses [...] Cosigner Signature (if applicable): CC: ~ Signed [facility] Work Phone: [phone]) 957-351401-29-2024 Progress note Author Graham Tolbert [facility] October 30, 2023 11:01am Note Date/Time October 30, 2023 8 :26am [facility] Medical Records Department [address] [place] [address] Progress Note - Hospitalist 10/30/23 0823 MR#: [id number] Acct: [id number] Name: MICHAEL MCNEILL SANTOS Rep #:[id number] : 1975 47 From: Graham Tolbert DO PCP: Care Physician,No Primary Status :ADM IN Location: [place] [address] Reason for Visit Reason for Visit: Diagnoses [...] 23:59 Intake Total 4.58 / 1914.58 Balance 4.58 / 1914.58 Lab / Micro Data 10/29/23 [...] is evaluated. Charges/Coding Visit Charges Inpatient E&M: 01247 Subs Hosp L2 10/30/23 1101 <Electronically signed by Graham Tolbert DO> Cosigner Signature (if applicable): CC: ~ Signed [facility] Work Phone: 1(856) 481-143001-28-2024 Progress note Author Amparo Nguyen [facility] October 29, 2023 1:57pm Note Date/Time October 29, 2023 9 :[address] [place] [address] Health System Medical Records Department [address] [place] [address] Progress Note 10/29/23 0949 MR#: [id number] Acct: [id number] Name: MICHAEL MCNEILL Rep #:[id number] : 1975 47 From: Amparo Nguyen MD PCP: Care Physician,No Primary Status :ADM IN Location: [place] [address] Subjective Subjective Patient seen and examined. He [...] 78.9 H, Lymph % (Auto) 14.6 L, Montgomery % (Auto) 4.0, Eos % (Auto) 1.6, [...] prophylaxis; SCDs Charges/Coding Visit Charges Inpatient E&M: 40899 Subs Hosp L2 10/29/23 2478 <Electronically signed by Amparo Nguyen MD> Amparo Nguyen MD Cosigner Signature (if applicable): CC: ~ Signed [facility] Work Phone: 1(722) 779-253401-28-2024 Discharge summary Author Tae Walsh [facility] October 29, 2023 5:44am Note Date/Time October 29, 2023 4 :37am [facility] Medical Records Department [address] [place] [address] Emergency Department Summary 10/29/23 MR#: [id number] Acct: [id number] Name: MICHAEL MCNEILL SANTOS Rep #:[id number] : 1975 47 From: Tae Walsh MD PCP: Care Physician,No Primary Status :ADM IN Location: CO3 QX606-2 HPI History of Present Illness Chief Complaint: [...] Prior similar symptoms: Yes Recent Illness/Hospitalization: [facility] Medical History (Updated 10/29/23 @ 05:44 by [...] those results. Plan is to admit to [facility]. Dr. Mcintyre who is on [...] Physician,No Primary Disposition Disposition: Acute Care Hospital [facility] What to do if you have Problems For any increased pain, shortness of breath, bleeding, nausea or vomiting, chestpain, or any unexpected problems, contact your Primary Care Provider. Call [facility] ([phone]) or report to the closest Emergency Room. Call 911 if necessary. 10/29/23 0544 <Electronically signed by Tae Walsh MD> Cosigner Signature (if applicable): CC: No Primary Care Physician ~ Signed [facility] Work Phone: [phone]) 707-394401-28-2024 History and physical note Author Alisha Mcintyre [facility] October 29, 2023 4:59am Note Date/Time October 29, 2023 4 :41am [facility] Medical Records Department [address] [place] [address] H&P Exam - Hospitalist 10/29/23 0437 MR#: [id number] Acct: [id number] Name: MICHAEL MCNEILL SANTOS Rep #:[id number] : 1975 47 From: Alisha Mcintyre MD [...] GERD, HTN, HLD who presents to the [facility] ED on 04/26/23 with acute EtOH withdrawal [...] alcohol level, urine drug screen upon evaluation. [facility] Medical History (Updated 10/29/23 @ 04:39 by [...] GERD, HTN, HLD who presents to the [facility] ED on 04/26/23 with acute EtOH withdrawal [...] of admission. Charges/Coding Visit Charges Inpatient E&M: 86864 Init Hosp L2 10/29/23 0459 <Electronically signed by Alisha Mcintyre MD> Cosigner Signature (if applicable): CC: Dr. Alisha Mcintyre MD; No Primary Care Physician~ Signed [facility] Work Phone: [phone]) 715-832312-19-2023 Telephone encounter Note* Telephone Encounter - Vida Perez - 09/19/2023 4:15 PM EST Office and [facility] unable to reach patient to go over surgery information and schedule PAT prior to surgery as patients number and emergency contacts number has been disconnected Surgery message sent to [place] to cancel surgery as of now Vida Perez [employer] [facility]12-19-2023 Miscellaneous Notes* Telephone Encounter - Vida Perez - 09/19/2023 4:15 PM EST Office and [facility] unable to reach patient to go over surgery information and schedule PAT prior to surgery as patients number and emergency contacts number has been disconnected Surgery message sent to [place] to cancel surgery as of now Vida Perez [employer] * Telephone Encounter - Vida Perez - 09/13/2023 9:05 AM EST Received call from [facility] in regards to patient not being able to be contacted. Number listed for patient rings twice then shows busy. Emergency contact listed is inactive. Will keep trying. Patient scheduled for hernia surgery with Dr. Jose in [place] on 10/03/2023. Colonoscopy was cancelled earlier this month. Vida Sam advise [employer] * Telephone Encounter - Vida Perez - 08/28/2023 11:16 AM EST 09/05/2023 COLON MTZ + 10/03/2023 RIH SALINA documented in [facility]12[facility]-2023 Telephone encounter Note * Telephone Encounter - Vida Perez - 09/13/2023 9:05 AM EST Received call from [facility] in regards to patient not being able to be contacted. Number listed for patient rings twice then shows busy. Emergency contact listed is inactive. Will keep trying. Patient scheduled for hernia surgery with Dr. Jose in [place] on 10/03/2023. Colonoscopy was cancelled earlier this month. Vida Sam advise [employer] [facility]2023 Telephone encounter Note* Telephone Encounter - Vida Perez - 08/28/2023 11:16 AM EST 09/05/2023 COLON MTZ + 10/03/2023 RI MTZ [facility]2023 NoteHNO ID: [id number] Author: Linda Jose MD Service: ? Author [...] recently He has just got out of group home for drug possession in the past two [...] entered by the nurse and reviewed by sc Nursing Notes: Katherine Biggs RN 08/28/2023 10:43 [...] and no icterus noted. (more content not included)...[facility]2023 History of Present illness Narrative* Linad Jose MD - 08/28/2023 11:03 AM EST HISTORY AND PHYSICAL Michael Mcneill 1975 REFERRING PHYSICIAN: No ref. provider found CHIEF COMPLAINT: Consult (Right side groin pain) HPI: The patient is a 47 year old male presents with right inguinal hernia noted for 5 years. She notes increasing symptoms recently He has just got out of group home for drug possession in the past two [...] entered by the nurse and reviewed by sc Nursing Notes: Katherine Biggs RN 08/28/2023 10:43 [...] will be scheduled for the procedure at [facility] I have offered right inguinal hernia repair. [...] studies/radiological imaging/medical records from other medical facilities, [id number] patient care, obtaining [facility], performing a medically appropriate examination, counseling and educating the patient/family/caregiver, and ordering and/or scheduling of medications/tests/procedures, and completing appropriate medical documentation. Linda Jose MD documented in [facility]2023 Instructions* Patient Instructions* Linda Jose MD [...] If you do not have a responsible automobile drivers (family member or friend) with you to [...] your exam. 2 09/2019 documented in this encounterMer[facility]2023 Nurse Note* Katherine Biggs RN - [...] NONE Katherine Biggs RN documented in this encounterMer[facility]11-25-2023 NoteHNO ID: [id number] Author: Henri Hurley APRN.DRUG SAFETY DATA MANAGEMENT SPECIALIST Service: ? Author Type: Nurse Practitioner Type: [...] - CONSULT TO GENERAL SURGERY Henri Hurley APRN.CNPD[facility]07-28-2023 Discharge summary Author Jaquan Mabry [facility] April 28, 2023 9:43am Note Date/Time April 28, 2023 9:35 am [facility] Medical Records Department [address] [place] [address] Discharge Summary 04/28/23 0935 MR#: [id number] Acct: [id number] Name: MICHAEL MCNEILL SANTOS Rep #:[id number] : 1975 47 From: Jaquan Mabry MD PCP: Care Physician,No Primary Status :ADM IN Location: MS3 ID553-8 Providers Date of Admission: 04/26/23 Date of [...] longer takiing Referrals / Follow Up: Kristina Veloz, [Med Staff - Consulting] - Within 1 Week (at 180) Care Physician,No Primary [Primary Care Provider] - Within 2 Weeks Disposition Disposition (needs filled in before D/C Order can be placed): Home, Self Care Charges/Coding Visit Charges Inpatient E&M: 24781 Disch Hosp >30min 04/28/23 0943 <Electronically signed by Jaquan Mabry MD> Cosigner Signature (if applicable): CC: Dr. Jaquan Mabry MD; No Primary Care Physician~ Signed [facility] Work Phone: [phone]) [phone] Progress note Author Jaquan Mabry [facility] April 28, 2023 9:07am Note Date/Time April 28, 2023 7:17 am [facility] Medical Records Department [address] [place] [address] Progress Note - Hospitalist 04/28/23716 MR#: [id number] Acct: [id number] Name: MICHAEL MCNEILL SANTOS Rep #:[id number] : 1975 47 From: Jaquan Mabry MD PCP: Care Physician,No Primary Status :ADM IN Location: [place] [address] Reason for Visit Reason for Visit: Diagnoses [...] 35 Minutes Charges/Coding Visit Charges Inpatient E&M: 64993 Subs Hosp L2 04/28/23 0907 <Electronically signed by Jaquan Mabry MD> Cosigner Signature (if applicable): CC: ~ Signed [facility] Work Phone: [phone]) 150-874907-28-2023 Progress note Author Jaquan Mabry [facility] April 28, 2023 9:07am Note Date/Time April 28, 2023 7:17 am [facility] Medical Records Department [address] [place] [address] Progress Note - Hospitalist 04/28/23716 MR#: [id number] Acct: [id number] Name: MICHAEL MCNEILL SANTOS Rep #:[id number] : 1975 47 From: Jaquan Mabry MD PCP: Care Physician,No Primary Status :ADM IN Location: [place] [address] Reason for Visit Reason for Visit: Diagnoses [...] 35 Minutes Charges/Coding Visit Charges Inpatient E&M: 77540 Subs Hosp L2 04/28/23 0907 <Electronically signed by Jaquan Mabry MD> Cosigner Signature (if applicable): CC: ~ Signed [facility] Work Phone: [phone]) 102-870907-27-2023 Progress note Author Jaquan [facility] April 27, 2023 8:14am Note Date/Time April 27, 2023 7:02 am [facility] Medical Records Department [address] [place] [address] Progress Note - Hospitalist 04/27/23 0659 MR#: [id number] Acct: [id number] Name: MICHAEL MCNEILL SANTOS Rep #:[id number] : 1975 47 From: Jaquan Mabry MD PCP: Care Physician,No Primary Status :ADM IN Location: [place] [address] Reason for Visit Reason for Visit: Diagnoses [...] % (Auto) 56.3, Lymph % (Auto) 22.0, Montgomery % (Auto) 6.0, Eos % (Auto) 14.7 [...] 35 Minutes Charges/Coding Visit Charges Inpatient E&M: 24840 Subs Hosp L2 04/27/23 0814 <Electronically signed by Jaquan Mabry MD> Cosigner Signature (if applicable): CC: ~ Signed [facility] Work Phone: [phone]) [phone] History and physical note Author Alisha Mcintyre [facility] April 26, 2023 11:38pm Note Date/Time April 26, 2023 7:07 pm [facility] Medical Records Department [facility] [place] [address] H&P Exam - Hospitalist 04/26/23 1904 MR#: [id number] Acct: [id number] Name: MICHAEL MCNEILL SANTOS Rep #:[id number] : 1975 47 From: Alisha Mcintyre MD PCP: Care Physician,No Primary Status :ADM IN Location: MS3 LD454-7 HPI - General General Date of Admission: 04/26/23 Date of Service: 04/26/23 Chief Complaint: Acute EtOH withdrawal HPI Narrative The patient is a 47 y/o M w/ PMHx: Hx CVA, Hx Chew tobacco use, Polysubstance abuse (cannabis, opiates, methampetamine), EtOH abuse, COPD/Asthma w/ known bulla, GERD, HTN, HLD who presents to the [facility] ED on 04/26/23 with acute EtOH withdrawal [...] UDS pending upon requested evaluation of patient. [facility] Medical History (Updated 04/26/23 @ 19:21 by [...] % (Auto) 56.3, Lymph % (Auto) 22.0, Montgomery % (Auto) 6.0, Eos % (Auto) 14.7 [...] GERD, HTN, HLD who presents to the [facility] ED on 04/26/23 with acute EtOH withdrawal [...] encourage ambulation. Charges/Coding Visit Charges Inpatient E&M: 99935 Init Hosp L2 04/26/231922 <Electronically signed by Alisha Mcintyre MD> Cosigner Signature (if applicable): CC: Dr. Alisha cMintyre MD; No Primary Care Physician~ Signed ADDENDUM by Dr. Alisha Mcintyre MD on 04/26/23 at 2205 Addendum Patient now refusing HIV/Hepatitis/RPR testing. 04/26/232204<Electronically signed by Alisha Mcintyre MD> Cosigner Signature (if applicable): cc: Dr. Alisha Mcintyre MD; No Primary Care Physician ~* Signed ADDENDUM by Dr. Alisha Micntyre MD on 04/26/23 at 2338 Addendum Patient upon transition to floor as noted had declined further lab testing including HIV, RPR and hepatitis however it was able to be run through the ED labs with no further need for a lab draw with currently noted preliminarily reactive hepatitis C otherwise syphilis nonreactive, HIV nonreactive. 04/26/232337<Electronically signed by Alisha Mcintyre MD> Cosigner Signature (if applicable): cc: Dr. Alisha Mcintyre MD; No Primary Care Physician ~* Signed [facility] Work Phone: [phone]) 240-902107-27-2023 Discharge summary Author Graham Messina [facility] April 26, 2023 11:18pm Note Date/Time April 26, 2023 7:02 pm [facility] Medical Records Department [address] [place] [address] Emergency Department Summary 04/26/23 MR#: [id number] Acct: [id number] Name: MICHAEL MCNEILL SANTOS Rep #:[id number] : 1975 47 From: Graham Anderson PCP: Care Physician,No Primary Status :ADM IN Location: [place] [address] HPI History of Present Illness Chief Complaint: [...] Patient denies any suicidal or homicidal ideations. [facility] Medical History Active substance abuse Alcohol abuse [...] % (Auto) 56.3 Lymph % (Auto) 22.0 Montgomery % (Auto) 6.0 Eos % (Auto) 14.7 [...] Desire for detoxification, Alcohol withdrawal Disposition Disposition: [facility] What to do if you have Problems For any increased pain, shortness of breath, bleeding, nausea or vomiting, chestpain, or any unexpected problems, contact your Primary Care Provider. Call [facility] ([phone]) or report to the closest Emergency Room. Call 911 if necessary. 04/26/23 6532 <Electronically signed by Graham Messina DO> Cosigner Signature (if applicable): CC: No Primary Care Physician ~ Signed [facility] Work Phone: [phone]) 683-747403-25-2023 History and physical note Author Dr. Mcintyre [facility] December 23, 2022 10:52pm Note Date/Time December 23, 2022 10: 33pm [facility] Medical Records Department [address] [place] [address] History & Physical Exam 12/23/222224 MR#: [id number] Acct: [id number] Name: MICHAEL MCNEILL SANTOS Rep #:[id number] : 1975 47 From: Alisha Mcintyre MD PCP: Care Physician,No Primary Status :ADM IN Location: [facility] FV999-4 HPI - General General Date of Admission: [...] 07/15/22- 07/18/22 who now re-presents to the [facility] ED on 12/23/22 with onset of alcohol [...] UDS with positive amphetamine/MDMA, ethyl alcohol 25. [facility] Medical History (Updated 12/23/22 @ 22:48 by [...] (Auto) 69.3, Lymph % (Auto) 17.4 L, Montgomery % (Auto) 5.3, Eos % (Auto) 7.0 [...] 07/15/22- 07/18/22 who now re-presents to the [facility] ED on 12/23/22 with onset of alcohol [...] 55 minutes. Charges/Coding Visit Charges Inpatient E&M: 14712 Init Hosp L2 12/23/22 2252 <Electronically signed by Alisha Mcintyre MD> Cosigner Signature (if applicable): CC: Dr. Alsiha Mcintyre MD; No Primary Care Physician~ Signed [facility] Work Phone: [phone]) 856-554503-25-[address] De Anda [facility] December 23, 2022 10:30pm Note Date/Time December 23, 2022 10: 30pm [facility] Medical Records Department [address] [place] [address] Emergency Department Summary 12/23/22 MR#: [id number] Acct: [id number] Name: MARKELLCORNEL APARICIOMY SANTOS Rep #:[id number] : 1975 47 From: Michael De Anda [...] today. He is not actively withdrawing currently. [facility] Medical History Active substance abuse Alcohol abuse [...] (Auto) 69.3 Lymph % (Auto) 17.4 L Montgomery % (Auto) 5.3 Eos % (Auto) 7.0 [...] (Auto) Neut % (Auto) Lymph % (Auto) Montgomery % (Auto) Eos % (Auto) Baso % [...] your Primary Care Provider. Call [facility] ([phone]) or report to the closest Emergency Room. Call 911 if necessary. 12/23/222229 <Electronically signed by Michael De Anda DO> Cosigner Signature (if applicable): CC: No Primary Care Physician ~ Signed [facility] Work Phone: [phone]) [phone] Garcia [facility] December 15, 2022 6:41pm Note Date/Time December 15, 2022 6:3 9pm [facility] Medical Records Department [address] [place] [address] Emergency Department Summary 12/15/22 MR#: [id number] Acct: [id number] Name: MICHAEL MCNEILL SANTOS Rep #:[id number] : 1975 47 From: Twan Garcia MD [...] your Primary Care Provider. Call [facility] ([phone]) or report to the closest Emergency Room. Call 911 if necessary. 12/15/22 184 <Electronically signed by Twan Garcia MD> Cosigner Signature (if applicable): CC: No Primary Care Physician ~ Signed [facility] Work Phone: 1([phone]) 129-996902-02-[address] Nieves [facility] November 03, 2022 3:22pm Note Date/Time November 03, 2022 1 :31pm [facility] Medical Records Department [address] [place] [address] Emergency Department Summary 11/03/22 MR#: [id number] Acct: [id number] Name: MICHAEL MCNEILL SANTOS Rep #:[id number] : 1975 46 From: Homar Nieves MD PCP: Care Physician,No Primary Status :REG ER Location: ED HPI HPI - Fall History of Present Illness Chief Complaint: Fall Narrative Narrative: 46-year-old male presents from the [place] with injury to his face, mainly his upper lip. He states that he blacked out but was unsure for how long. He sustained injury to his mucosal surface of his upper lip. He denies any neck pain. He denies taking any medications and is unsure of his last tetanus immunization. He states that he stood up and just blacked out. [facility] Medical History Active substance abuse Alcohol abuse [...] % (Auto) 60.9 Lymph % (Auto) 20.9 Montgomery % (Auto) 6.5 Eos % (Auto) 10.8 [...] your Primary Care Provider. Call [facility] ([phone]) or report to the closest Emergency Room. Call 911 if necessary. 11/03/22 1522 <Electronically signed by Homar Nieves MD> Cosigner Signature (if applicable): CC: No Primary Care Physician ~ Signed [facility] Work Phone: Consult note Author Charlie Cortes [facility] October 31, 2023 10:29am Note Date/Time October 31, 2023 1 0:29am [facility] Medical Records Department [address] [place] [address] Counseling Note - Pharmacy 10/31/23 1028 MR#: [id number] Acct: [id number] Name: MICHAEL MCNEILL SANTOS Rep #:[id number] : 1975 47 From: Charlie Cortes PCP: Care Physician,No Primary Status :ADM IN Location: [place] [address] [place] Med Reconciliation Pharmacy Service has performed discharge [...] 10/31/23 10/31/23 1029 <Electronically signed by Charlie ceja> Date _ Charlie Ratliffigner Signature (if applicable): Date CC: ~ Signed [facility] Work Phone: Discharge summary Author Dr. Mckeon [facility] December 24, 2022 11:31am Note Date/Time December 24, 2022 11: 17am [facility] Medical Records Department [address] [place] [address] Discharge Summary 12/24/22 1116 MR#: [id number] Acct: [id number] Name: MICHAEL MCNEILL SANTOS Rep #:[id number] : 1975 47 From: Nelson Mckeon DO PCP: Care Physician,No Primary Status :ADM IN Location: [place] [address] Providers Date of Admission: 12/23/22 Date of [...] was seen in the emergency room at [facility] requesting services for alcohol detox, patient's talk screen was positive for MDMA, amphetamines, and azithromycin alcohol level was 25. Patientwas admitted to [facility], according to nursing, patient [...] (Auto) 69.3, Lymph % (Auto) 17.4 L, Montgomery % (Auto) 5.3, Eos % (Auto) 7.0 [...] Cosigner Signature (if applicable): CC: Dr. Nelson Mckeon DO; No Primary Care Physician~ Signed [facility] Work Phone: Discharge summary Author Jaquan Mabry [facility] April 28, 2023 9:43am Note Date/Time April 28, 2023 9:35 am [facility] Medical Records Department [address] [place] [address] Discharge Summary 04/28/23 0935 MR#: [id number] Acct: [id number] Name: MICHAEL MCNEILL SANTOS Rep #:[id number] : 1975 47 From: Jaquan Mabry MD PCP: Care Physician,No Primary Status :ADM IN Location: [place] [address] Providers Date of Admission: 04/26/23 Date of [...] Self Care Charges/Coding Visit Charges Inpatient E&M: 74349 Disch Hosp >30min 04/28/23 0943 <Electronically signed by Jaquan Mabry MD> Cosigner Signature (if applicable): CC: Dr. Jaquan Mabry MD; No Primary Care Physician~ Signed [facility] Work Phone: Discharge summary Author Tae Walsh [facility] October 29, 2023 5:44am Note Date/Time October 29, 2023 4 :37am [facility] Medical Records Department [address] [place] [address] Emergency Department Summary 10/29/23 MR#: [id number] Acct: [id number] Name: MICHAEL MCNEILL SANTOS Rep #:[id number] : 1975 47 From: Tae Walsh MD PCP: Care Physician,No Primary Status :ADM IN Location: [id number] HPI History of Present Illness Chief Complaint: [...] those results. Plan is to admit to [facility]. Dr. Mcintyre who is on [...] Physician,No Primary Disposition Disposition: Acute Care Hospital [facility] What to do if you have Problems For any increased pain, shortness of breath, bleeding, nausea or vomiting, chestpain, or any unexpected problems, contact your Primary Care Provider. Call [facility] ([phone]) or report to the closest Emergency Room. Call 911 if necessary. 10/29/23 0544 <Electronically signed by Tae Walsh MD> Cosigner Signature (if applicable): CC: No Primary Care Physician ~ Signed [facility] Work Phone: Discharge summary Author Graham Tolbert [facility] October 31, 2023 10:21am Note Date/Time October 31, 2023 1 0:17am [facility] Medical Records Department [address] [place] [address] Discharge Summary 10/31/23 1015 MR#: [id number] Acct: [id number] Name: MICHAEL MCNEILL SANTOS Rep #:[id number] : 1975 47 From: Graham Tolbert DO PCP: Care Physician,No Primary Status :ADM IN Location: [place] [address] Providers Date of Admission: 10/29/23 Primary Care [...] Attending Provider: Graham Tolbert Primary Care Provider: Cassie Pompa,Gayathri Primary Consulting Providers: Alisha Mcintyre Nana Yaa Instructions Additional Instructions / Restrictions: Follow-up with [...] Self Care Charges/Coding Visit Charges Inpatient E&M: 08037 Disch Hosp 10/31/23 1021 <Electronically signed by Graham Tolbert DO> Cosigner Signature (if applicable): CC: Dr. Graham Tolbert, ; No Primary Care Physician~ Signed [facility] Work Phone: Discharge summary Author Homar Nieves [facility] Note Date/Time December 13, 2024 1:4 6pm [facility] Medical Records Department [address] [place] [address] Emergency Department Summary 12/13/24 MR#: [id number] Acct: [id number] Name: MICHAEL MCNEILL SANTOS Rep #:[id number] : 1975 49 From: Homar Nieves MD [...] 2 weeks of cough if not longer. [facility] Medical History ETOH abuse Methamphetamine abuse Asthma [...] midlung. Correlation with CT recommended. Reading Location: [facility] Discharge Plan Triage Chief Complaint: Cough ED [...] [Primary Care Provider] - Anmol Berry NP-C [[facility]] - 1 Week if not improving Activity Restrictions/Additional Instructions: Use albuterol inhaler 1 to 2 puffs inhaled every 4-6 hours as needed for shortness of breath. Follow-up with a primary care provider regarding your chronic cough. Return to the emergency department with increased difficulty breathing, new or worsening symptoms. Print Language: [place] Disposition Disposition: Home, Self Care What to do if you have Problems For any increased pain, shortness of breath, bleeding, nausea or vomiting, chestpain, or any unexpected problems, contact your Primary Care Provider. Call [facility] ([phone]) or report to the closest Emergency Room. Call 911 if necessary. 12/13/24 1346 <Electronically signed by Homar Nieves MD> Cosigner Signature (if applicable): CC: No Primary Care Physician ~ Signed [facility] Work Phone: Evaluation noteNo assessment information available [facility] Work Phone: Evaluation note* Diagnosis Onset Date Resolution Status Desire for detoxification [facility] [place] Alcoholism [facility] Work Phone: evaluation note* Diagnosis Onset Date Resolution Status Desire for detoxification [facility] [place] Alcoholism chronic Alcohol intoxication acute Viral URI with cough acute [facility] Work Phone: Evaluation note* Diagnosis Onset Date Resolution Status Alcoholism chronic Acute alcohol withdrawal res olved Alcohol intoxication acute Viral URI with cough acute Alcohol withdrawal acute Desire for detoxification [facility] [place] Substance abuse acute Alcoholism chronic [facility] Work Phone: Evaluation note* Diagnosis Onset Date Resolution Status Alcoholism chronic Acute alcohol withdrawal res olved Alcohol intoxication acute Viral URI with cough acute Alcoholism chronic Alcohol withdrawal resolved Alcohol abuse acute [facility] Work Phone: Evaluation note* Diagnosis Onset Date Resolution Status Alcoholism chronic Alcohol withdrawal resolved Alcohol abuse acute Acute alcohol withdrawal res olved [facility] Work Phone: Evaluation note* Diagnosis Onset Date Resolution Status Alcohol abuse acute Acute alcohol withdrawal res olved [facility] Work Phone: Evaluation note* Diagnosis Onset Date Resolution Status Alcohol withdrawal acute [facility] Work Phone: Evaluation note* Diagnosis Onset Date Resolution Status Alcohol withdrawal acute Desire for detoxification [place] [facility] Work Phone: Evaluation note* Diagnosis Onset Date Resolution Status Alcohol withdrawal resolved Desire for detoxification re solved [facility] Work Phone: Evaluation note* Diagnosis Right inguinal hernia Inguinal hernia without mention of obstruction or gangrene, unilateral or unspecified, (not specified as recurrent) Screening for colon cancer Special screening for malignant neoplasms, colon Right inguinal hernia Inguinal hernia without mention of obstruction or gangrene, unilateral or unspecified, (not specified as recurrent) [facility] Diagnosis Onset Date Resolution Status Alcohol abuse acute Alcohol dependence acute Desire for detoxification [facility] [place] Alcoholism chronic [facility] Work Phone: History and physical note Author Alisha Mcintyre [facility] April 26, 2023 7:23pm Note Date/Time April 26, 2023 7:07 pm [facility] Medical Records Department [address] [place] [address] H&P Exam - Hospitalist 04/26/23 1904 MR#: [id number] Acct: [id number] Name: MICHAEL MCNEILL SANTOS Rep #:[id number] : 1975 47 From: Alisha Mcintyre MD [...] GERD, HTN, HLD who presents to the [facility] ED on 04/26/23 with acute EtOH withdrawal [...] UDS pending upon requested evaluation of patient. [facility] Medical History (Updated 04/26/23 @ 19:21 by [...] % (Auto) 56.3, Lymph % (Auto) 22.0, Montgomery % (Auto) 6.0, Eos % (Auto) 14.7 [...] GERD, HTN, HLD who presents to the [facility] ED on 04/26/23 with acute EtOH withdrawal [...] encourage ambulation. Charges/Coding Visit Charges Inpatient E&M: 50883 Init Hosp L2 04/26/231922 <Electronically signed by Alisha Mcintyre MD> Cosigner Signature (if applicable): CC: Dr. Alisha Mcintyre MD; No Primary Care Physician~ Signed [facility] Work Phone: History and physical note Author [facility] Francisco Javier [facility] October 29, 2023 4:59am Note Date/Time October 29, 2023 4 :41am [facility] Medical Records Department [address] [place] [address] H&P Exam - Hospitalist 10/29/23 0437 MR#: [id number] Acct: [id number] Name: MICHAEL MCNEILL SANTOS Rep #:[id number] : 1975 47 From: Alisha Mcintyre MD [...] GERD, HTN, HLD who presents to the [facility] ED on 04/26/23 with acute EtOH withdrawal [...] alcohol level, urine drug screen upon evaluation. [facility] Medical History (Updated 10/29/23 @ 04:39 by [...] GERD, HTN, HLD who presents to the [facility] ED on 04/26/23 with acute EtOH withdrawal [...] of admission. Charges/Coding Visit Charges Inpatient E&M: 73026 Init Hosp L2 10/29/23 6017 <Electronically signed by Alisha Mcintyre MD> Cosigner Signature (if applicable): CC: Dr. Alisha Mcintyre MD; No Primary Care Physician~ Signed [facility] Work Phone: Hospital Discharge instructions Additional Instructions Follow-up with a dentist as soon as possible for your right front tooth avulsion.[facility] Work Phone: Hospital Discharge instructions Additional Instructions Wash your hand thoroughly daily. Apply antibiotic ointment to all this cuts on your left hand twice a day. Apply hand moisturizer twice a day your skin is getting very dry. Currently there is no signs of infection. Watch for pus, red streaks, fever or swelling of seen needs to be reevaluated.[facility] Work Phone: Hospital Discharge instructions Additional Instructions Please follow-up with the PCP I referred you to.[facility] Work Phone: Hospital Discharge instructions Additional Instructions See your physician as scheduled in April.[facility] Work Phone: Hospital Discharge instructions Additional Instructions Please use your inhaler as directed to control any asthma symptoms and return to the ER should you have any further [facility] Work Phone: Hospital Discharge instructions Additional Instructions Follow-up with the surgeons office tomorrow so they can reprint the appropriate follow-up paperwork and plans for your hernia surgery.[facility] Work Phone: Hospital Discharge instructions Additional Instructions Use albuterol inhaler 1 to 2 puffs inhaled every 4-6 hours as needed for shortness of breath. Follow-up with a primary care provider regarding your chronic cough. Return to the emergency department with increased difficulty breathing, new or worsening symptoms. [facility] Work Phone: Hospital Discharge instructionsAdditional Instructions Follow-up with your doctor in outpatient. Return with worsening symptoms or any concerns.[facility] Work Phone: Reason for referral (narrative)* Outpatient Procedure (Routine) - Authorized Specialty Diagnoses / Procedures Referred By Erin coburn Referred To Contact [facility] Diagnoses Screening for colon cancer Procedures COLONOSCOPY SCREENING COLONOSCOPY FLX DX W/COLLJ SPEC WHEN Linda Manrique MD [address] [place] [address] [facility] [address] [place] [address] Referral ID Status Reason Start Date Expiration Date Visits Requested Visits Authorized [id number] Authorized Auto-Generat ed Referral 3 08/28/2024 1 1 [facility] for referral (narrative)No reason for referral information availableWCleveland Clinic Foundation Work Phone: Summary Purpose Family History No [...] February 12, 2022 7 :15pm Power of Slate Roofer No February 12, 2022 7:15pm Advance Directive Response Recorded Date/ Time Advance Directives No April 02 4 8:34pm Living Will No March 19, 2022 8:44pm Power of Slate Roofer No March 19 2 8:44pm Advance Directive Response Recorded Date/ Time Advance Directives No April 02 4 8:34pm Living Will No March 19, 2022 10:50pm Power of Slate Roofer No March 19 10:50pm Advance Directive Response Recorded Date/ Time Advance Directives No April 02 4 8:34pm Living Will No March 28, 2022 4:26pm Power of Slate Roofer No March 28 4:26pm Advance Directive Response Recorded Date/ Time Advance Directives No April 02 4 8:34pm Living Will No May 23 2 11:27pm Power of Slate Roofer No May 23 11:27pm Advance Directive Response Recorded Date/ Time Advance Directives No April 02 4 8:34pm Living Will No May 24 1:55am Power of Slate Roofer No May 24 022 1:55am Advance Directive Response Recorded Date/ Time Advance Directives No April 02 4 8:34pm Living Will No July 15 9:08pm Power of Slate Roofer No July 15, 2022 9:08pm Advance Directive Response Recorded Date/ Time Advance Directives No April 02 4 8:34pm Living Will No July 26 6:25pm Power of Slate Roofer No July 26, 2022 6:25pm Advance Directive Response Recorded Date/ Time Advance Directives No April 02 4 7:34pm Living Will No August 14, 2 022 6:57am Power of Slate Roofer No August 14, 2022 6:57am Advance Directive Response Recorded Date/ Time Advance Directives No April 02 4 7:34pm Living Will No September 05 11:06am Power of Slate Roofer No September 05, 2022 11:06am Advance Directive Response Recorded Date/ Time Advance Directives No April 02 4 7:34pm Living Will No September 09 1:56am Power of Slate Roofer No September 09, 2022 1:56am Advance Directive Response Recorded Date/ Time Advance Directives No April 02 4 7:34pm Living Will No October 09 1:37pm Power of Slate Roofer No October 09, 2 023 1:37pm Advance Directive Response Recorded Date/ Time Advance Directives No April 02 4 7:34pm Living Will No November 03 1:05pm Power of Slate Roofer No November 03, 2022 1:05pm Advance Directive Response Recorded Date/ Time Advance Directives No April 02 7:34pm Living Will No December 01, 2022 11:33pm Power of Slate Roofer No December 01 11:33pm Advance Directive Response Recorded Date/ Time Advance Directives No April 02 8:34pm Living Will No December 15, 2022 6:32pm Power of Slate Roofer No December 15 6:32pm Advance Directive Response Recorded Date/ Time Advance Directives No April 02 4 8:34pm Living Will No December 23, 2022 11:29pm Power of Slate Roofer No December 23 11:29pm Advance Directive Response Recorded Date/ Time Advance Directives No April 02 4 8:34pm Living Will No March 26, 2023 12:10am Power of Slate Roofer No March 26 12:10am Advance Directive Response Recorded Date/ Time Advance Directives No April 02 4 8:34pm Living Will No April 26, 2023 7:47pm Power of Slate Roofer No April 26 3 7:47pm Advance Directive Response Recorded Date/ Time Advance Directives No April 02 4 8:34pm Living Will No April 26, 2023 8:56pm Power of Slate Roofer No April 26 8:56pm Advance Directive Response Recorded Date/ Time Advance Directives No April 02 4 8:34pm Living Will No May 29 12:58am Power of Slate Roofer No May 29 023 12:58am Advance Directive Response Recorded Date/ Time Advance Directives No April 02 4 7:34pm Living Will No September 01 12:29am Power of Slate Roofer No September 01, 2023 12:29am Advance Directive Response Recorded Date/ Time Advance Directives No April 02 4 7:34pm Living Will No October 15 11:33am Power of Slate Roofer No October 15, 2023 11:33am Advance Directive Response Recorded Date/ Time Advance Directives No April 02 7:34pm Living Will No October 29 4:23am Power of Slate Roofer No October 29, 2023 4:23am Advance Directive Response Recorded Date/ Time Advance Directives No April 02 7:34pm Living Will No October 29 5:54am Power of Slate Roofer No October 29, 2023 5:54am Advance Directive Response Recorded Date/ Time Living Will No September 07 12:41pm Power of Slate Roofer No September 07, 2024 12:41pm Living Will No November 11 025 6:41pm Power of Slate Roofer No November 11, 2024 6:41pm Living Will No December 04, 2024 8:21pm Power of Slate Roofer No December 04 8:21pm Living Will No December 13, 2024 12:35pm Power of Slate Roofer No December 13 12:35pm Living Will No September 19, 2 024 7:59pm Power of Slate Roofer No September 19, 2024 7:59pm Living Will No October 21 9:51pm Power of Slate Roofer No October 21, 2024 9:51pm Living Will No November 27 2 025 3:01pm Power of Slate Roofer No 2024 3:01pm Advance Directives No April 02 8:34pm Advance Directive Response Recorded Date/ Time Living Will No November 11 025 6:41pm Do you have a Healthcare Power of Slate Roofer? No November 11, 2024 6:41pm Living Will No December 04, 2024 8:21pm Do you have a Healthcare Power of Slate Roofer? No December 04, 2024 8:21pm Living Will No December 13, 2024 12:35pm Do you have a Healthcare Power of Slate Roofer? No December 13, 2024 12:35pm Living Will No January 19, 2025 2:10pm Do you have a Healthcare Power of Slate Roofer? No January 19, 2025 2:10pm Living Will No October 21 9:51pm Do you have a Healthcare Power of Slate Roofer? No October 21, 2024 9:51pm Living Will No November 27 025 3:01pm Do you have a Healthcare Power of Slate Roofer? No 2024 3:01pm Advance Directives No April 02 8:34pm Advance Directive Response Recorded Date/ Time Living Will No December 04, 2024 8:21pm Do you have a Healthcare Power of Slate Roofer? No December 04, 2024 8:21pm Living Will No December 13, 2024 12:35pm Do you have a Healthcare Power of Slate Roofer? No December 13, 2024 12:35pm Living Will No January 19, 2025 2:10pm Do you have a Healthcare Power of Slate Roofer? No January 19, 2025 2:10pm Do you have a Healthcare Power of Slate Roofer? No March 29, 2025 5:57pm Advance Directives No April 02 8:34pm Hospital Course Note EMERGENCY DEPARTMENT DISCHAR GE SUMMARY PATIENT NAME:MICHAEL MCNEILL MRN: ([facility])-[id number] AGE: 43 Years SEX: Male PHONE:[phone] DOS: 08/04/2019 00:26:00 : 1975 ATTENDING PHYSICIAN:Amy Jaimes MD PCP: Physician, No PCP CHIEF COMPLAINT: wheezing/congestion Allergies No Known Medication Allergies Problems Active Depression Anxiety Asthma DISCHARGE DIAGNOSIS: DISCHARGE INSTRUCTIONS: [facility] List (Custom); Asthma, Acute Bronchospasm ED [...] 17am SOB January 19, 2025 1:4 2pm Chief Complaint Admit Date ABSCESS December 04, 2024 4:22 pm COUGH December 13, 2024 11: 17am SOB January 19, 2025 1:4 2pm weakness March 29, 2025 5:45 pm Additional Source Comments (unrecognized sect ion and content) No Status Records FoundNo Status Records FoundNo Status Records FoundNo Status Records FoundNo Status Records Found INFORMATION SOURCE (unrecogn ized section and content) DATE CREATED AUTHOR 06/15/2018 [facility] DATE CREATED AUTHOR AUTHOR'S ORGANIZ ATION 08/04/2019 [facility] DATE CREATED AUTHOR AUTHOR'S ORGANIZ ATION 08/08/2024 [facility] DATE CREATED AUTHOR AUTHOR'S ORGANIZ ATION 02/06/2025 [facility] DATE CREATED AUTHOR AUTHOR'S ORGANIZ ATION 03/30/2025 [facility] Goals (unrecognized section and content) Goals may [...] End: November 12, 2024 Dr. Trang Valencia , DO Admit Provider Active Start : November 11, 2024 End: November 12, 2024 Dr. Trang Valencia , DO Other Provider Active Start : November 11, 2024 End: November 12, 2024 Dr. Graham Tolbert , DO Attending Provider Active Start: November 11, 2024 End: November 12, 2024 Team Status: Active Member Role Status Dates Dr. Remberto Bernal , Emergency Provider Active S tart: November 11, 2024 No Primary Care Physician Primary Care Provider Active Start: November 11, 2024 Dr. Trang Valencia , DO Admit Provider Active Start : November 11, 2024 Dr. Trang Valencia , DO Attending Provider Active S tart: November [...] November 12, 2024 Dr. Graham Tolbert , DO Attending Provider Active Start: November 12, 2024 Dr. Graham Tolbert , DO Other Provider Active Star t: November 12, 2024 Team Status: Inactive Member Role Status Dates No Primary Care Physician Primary Care Provider Active Start: November 20, 2024 End: November 20, 2024 Dr. Graham Mesisna , Attending Provider Active Start: November 20, 2024 End: November 20, 2024 Dr. Graham Messina , DO Emergency Provider Active Start: November 20, 2024 End: November 20, 2024 Team Status: Inactive Member Role Status Dates No Primary Care Physician Primary Care Provider Active Start: 2024 End: 2024 Dr. Lacho Joy , DO Attending Provider Activ e Start: 2024 End: 2024 Dr. Lacho Joy , DO Referring Provider Activ e Start: 2024 End: 2024 Dr. Lacho Joy DO Emergency Provider Activ e Start: 2024 End: 2024 Team Status: Inactive Member Role Status Dates No Primary Care Physician Primary Care Provider Active Start: December 04, 2024 End: December 04, 2024 Dr. Julius Matthews DO Attending Provider Active Start: December 04, 2024 [...] Graham Messina DO Attending Provider, Emergency P rovider Active Team Status: Inactive Member Role Status Dates No Primary Care Physician Primary Care Provider Active Dr. Andrew Henning DO Attending Provider, Emergency Pr ovider Active Team [...] Primary Care Provider Active Dr. Andrew Henning DO Emergency Provider Active Team Status: Inactive [...] Hattie Kapadia DO Attending Provider, [facility] Active Team Status: Active Member Role Status [...] 2024 End: December 13, 2024 Team Status: Active Member Role/Relationship Status Dates No Primary Care Physician Primary Care Provider Active Team Status: Inactive Member Role/Relationship Status Dates No Primary Care Physician Primary Care Provider Active Start: December 04, 2024 End: December 04, 2024 Dr. Julius Matthews DO Attending Provider Active Start: December 04, 2024 End: December 04, 2024 Dr. Julius Matthews DO Emergency Provider Active Start: December 04, 2024 End: December 04, 2024 Team Status: Inactive Member Role/Relationship Status Dates No Primary Care Physician Primary Care Provider Active Start: December 13, 2024 End: December 13, 2024 Homar Nieves MD Attending Provider Active Star t: December 13, 2024 End: December 13, 2024 Homar Nieves MD Emergency Provider Active Star t: December 13, 2024 End: December 13, 2024 Team Status: Inactive Member Role/Relationship Status Dates No Primary Care Physician Primary Care Provider Active Start: January 19, 2025 End: January 19, 2025 Dr. Tae Walsh MD Attending Provider Active Sta rt: January 19, 2025 End: January 19, 2025 Dr. Tae Walsh MD Emergency Provider Active Sta rt: January 19, 2025 End: January 19, 2025 Team Status: Inactive Member Role/Relationship Status Dates No Primary Care Physician Primary Care Provider Active Start: March 29, 2025 End: March 29, 2025 Dr. Sebastian Braswell DO Referring Provider Active Start: March 29, 2025 End: March 29, 2025 Dr. Sebastian Braswell DO Emergency Provider Active Start: March 29, 2025 End: March 29, 2025 Source Comments (unrecognize d section and content) In the event this informatio n is protected by the Federal Confidentiality of Alcohol and Drug Abuse Patient Records regulations: The Federal rules restrict any use of the information to criminally investigate or prosecute any alcohol or drug abuse patient.[facility] the event this information is protected by the Federal Confidentiality of Alcohol and Drug Abuse Patient Records regulations: The Federal rules restrict any use of the information to criminally investigate or prosecute any alcohol or drug abuse patient.[facility] Reason for Visit (unrecogniz ed section and content) Reason Comments Consult Right side groin hilaria n Reason Comments 09/05/2023 [facility] + 10/03/2023 [facility] LISA FOR RECORDS PERTAINING TO PATIENTS WHO ARE [...] BE BASED ON THE PRIMARY CLINICAL RECORDS. [facility] [employer] [facility]. provides no warranty or guarantee of the accuracy or completeness of information in this document.
[2025-03-30] MEDS: Albuterol Sulfate 8 gm Inhaler (60 puffs) 2 PUFF INHALATION (11:27)
[2025-03-30 11:39] VITALS: O2SAT 97
== END 2025-03-30 11:40 | disposition home or self-care (01) ==
PROVIDERS: Emergency Provider Emergency Medicine; Visit Provider Emergency Medicine
DX: J45.901 Unspecified asthma with (acute) exacerbation (principal); F15.10 Other stimulant abuse, uncomplicated; F11.10 Opioid abuse, uncomplicated; J44.89 Other specified chronic obstructive pulmonary disease; Z59.00 Homelessness unspecified; I10 Essential (primary) hypertension; K21.9 Gastro-esophageal reflux disease without esophagitis; F17.220 Nicotine dependence, chewing tobacco, uncomplicated
CPT/HCPCS: 99282

== ENCOUNTER 2025-04-16 21:31 | Inpatient (IN) | payer MEDICAID, SELFPAY ==
[2025-04-16 21:32] VITALS: BP 138/98; PULSE 104; RESP 18; TEMP 36.6; O2SAT 98; BMI 19.8
--- NOTE | 2025-04-16 21:49 | EDS_ITS ---
HPI History of Present Illness Chief Complaint: Substance Abuse Detail of Chief Complaint: Requesting detox for alcohol abuse. Informant: patient Onset/Context/Timing Onset: Month(s) Context: Gradual Onset Timing: Continuous Current Severity: Mild Maximum Severity: Mild Narrative Narrative: 49-year-old male history of alcohol and methamphetamine abuse. History of bipolar. States that he drinks 3-4 tall boy beers daily. Recently has been using whiskey also. Occasionally marijuana. Denies any IV drug abuse. Last detox was about a year and a half ago. No recent admissions for anything else. Denies recent illness. Prior similar symptoms: Yes Recent Illness/[facility]: [facility] Medical History ETOH abuse Methamphetamine abuse Asthma Depression Anxiety Methamphetamine abuse Ankle fracture, left Bipolar disorder Depression Anxiety Past history of chewing tobacco use Asthma with COPD Anxiety and depression Inguinal hernia bilateral, non-recurrent Hypertension Stroke/cerebrovascular accident Alcohol abuse Bulla of lung GERD (gastroesophageal reflux disease) Home Medications ?Medication ?Instructions ?Recorded ?Last Taken ?Type NK 04/16/25 Unknown History Allergy/AdvReac Type Severity Reaction Status Date / Time No Known Allergies Allergy Verified 04/16/25 21:32 Family History Father Alcoholism CAD (coronary artery disease) Heart disease Hypertension Mother Alcoholism Seizures Surgical History History of ankle surgery Social History housing: homeless Smoking Status: Former smoker Smokeless tobacco user: chewing tobacco how long ago did patient quit smoking: Notes no cig tob use, prior chew only but no current, ongoing cannabis use. alcohol intake: current alcohol intake frequency: a few times a week details: 5-6 beers daily, occasionally whiskey. substance use type: marijuana, amphetamines, opiates and methamphetamine ROS ROS ED ROS Narrative Denies recent illness. Constitutional Constitutional ED: Denies chills Eyes Eyes: Denies blurry vision ENT ENT ED: Denies ear pain Cardiovascular Cardiovascular: Denies chest pain or palpitations Respiratory/Chest Respiratory/Chest: Denies cough Gastrointestinal Gastrointestinal: Denies abdominal pain Genitourinary Genitourinary ED: Denies dysuria Musculoskeletal Musculoskeletal: Denies arthralgias Integumentary Denies abscess Neurologic Neurologic: Denies headache(s) Psychiatric Psychiatric: Denies anxiety Endocrine Endocrinology: Denies cold intolerance Hematologic/Lymphatic Hematologic/Lymphatic: Denies easy bleeding, easy bruising or lymphadenopathy Allergic/Immunologic Allergic/Immunologic ED: Denies mouth swelling, tongue swelling or urticaria EXAM Physical Exam Narrative Exam Narrative: Well-appearing 49-year-old male. Vital signs stable afebrile. No acute distress. No family present. H EENT exam pupils round reactive light. Moist mucous membranes. No trauma. Neck nontender. No lymphadenopathy. Back nontender. Lungs clear to auscultation bilaterally. Heart regular rhythm rate about 100 no murmur. Chest wall and ribs are nontender. Abdomen soft nontender. Moving all 4 extremities. Nontender. No edema. Normal strength. Normal range of motion. Neurologically is awake and alert. Answer questions following commands. Benign exam. Arms there are no track marie. Const Vital Signs: 04/16/25 21:32 Temperature 98 F Temperature Source Oral Pulse Rate 104 H Respiratory Rate 18 Blood Pressure 138/98 H Blood Pressure Mean 111 Pulse Ox 98 Positive well nourished and well developed; Negative for obese, cachectic, contractures or unkempt General Appearance ED: well developed and NAD; Negative for unkempt, cachectic, contractures or pallor Nutritional Appearance: Negative for cachectic or obese HEENT Reports moist mucous membranes atraumatic Eyes PERRL and EOMs intact bilaterally Neck no lymphadenopathy, supple and no JVD Lymph Lymphatic: no lymphadenopathy noted Chest Wall inspection of chest normal and palpation of chest normal Resp normal respiratory effort and clear to auscultation bilaterally Cardio regular rate, regular rhythm, S1 normal heart sound, S2 normal heart sound and no murmurs GI soft to palpation, non-tender, non-distended and no masses Palpation: Negative for tender Back/Spine no CVA tenderness Extremity General Extremety ED: Negative for edema or tenderness General Extremity: Negative for edema Neuro oriented x3 and CN's II-XII intact bilaterally Sensorium / Orientation: alert, oriented to person, oriented to place and oriented to time; Negative for confused, lethargic or stuporous Speech: speech normal Motor Exam: strength 5/5 throughout Psych mental status grossly normal and thought process normal Appearance: Negative for unkempt Attitude: No belligerent, No agitated, No aggressive and No hostile Skin General Skin Exam: Negative for jaundice or pallor Lesions: no lesions Rashes: no rashes MDM MDM MDM Narrative Medical decision making narrative: 49-year-old male requesting detox for alcohol abuse. Screening labs will be obtained. His exam is benign. I will speak to the hospitalist about admission. He is not actively going through withdrawal at this time. Patient doing well at 10:45 PM. I spoke to the hospitalist patient will be admitted. History & Record Review Discussion w/independent historian: Patient Additional record(s) reviewed:: Prior inpatient record, Prior outpatient record, Prior ED visit and Prior labs Lab Data Attestation: I reviewed the patient's lab results. Lab results narrative: CBC unremarkable. White count of 7. H&H 13 and 40. Platelets 290 Chemistries show a gap of 12. BUN and creatinine of 22 and 0.9. Glucose 104. Liver enzymes showed elevated AST of 44. ALT of 61. Alcohol level is negative. Labs: Laboratory Results - last 24 hr 04/16/25 21:55 WBC 7.9 RBC 4.43 L Hgb 13.6 Hct 40.0 MCV 90.3 MCH 30.7 MCHC 34.0 RDW Std Deviation 41.8 RDW Coeff of Bridger 12.6 Plt Count 290 MPV 9.0 Immature Gran % (Auto) 0.300 Neut % (Auto) 71.0 H Lymph % (Auto) 18.5 L [place] % (Auto) 6.1 Eos % (Auto) 3.3 Baso % (Auto) 0.8 Absolute Neuts (auto) 5.6 Absolute Lymphs (auto) 1.46 Nucleated RBC % 0 Sodium 140 Potassium 4.3 Chloride 101 Carbon Dioxide 26.4 Anion Gap 12 BUN 22 H Creatinine 0.97 Estim Creat Clear Calc 72.81 Est GFR (MDRD) Non-Af 96 BUN/Creatinine Ratio 22.4 H Glucose 104 H Calcium 10.0 Total Bilirubin 0.54 AST 44 H ALT 61 H Alkaline Phosphatase 60 Total Protein 7.9 Albumin 4.5 Globulin 3.3 Albumin/Globulin Ratio 1.4 Ethyl Alcohol < 10.1 Discharge Plan Dx/Rx/DC Orders Clinical Impression: Alcohol abuse, Marijuana use, Methamphetamine use Disposition Disposition: Acute Care Hospital [facility]
[2025-04-16 22:04] LABS: Hematocrit 40.0 % (40-54); Hemoglobin 13.6 g/dL (13.0-16.5); Immature Granulocytes Count 0.020 X10^3/uL (0.0-0.0); Mean Corp Hgb Conc 34.0 g/dL (32-36); Mean Corpuscular Volume 90.3 fL (80-94); Mean Platelet Vol. 9.0 fl (6.2-12.0); NRBC Flagged by Analyzer 0 % (0-5); Platelet Count 290 K/mm3 (150-450); RBC Distribution Width CV 12.6 % (11.6-14.6); RBC Distribution Width SD 41.8 fl (35.1-43.9); Red Blood Count 4.43 M/mm3 (4.6-6.2); White Blood Count 7.9 K/mm3 (4.4-11.0)
--- NOTE | 2025-04-16 22:41 | HP.PCM.HOS_ITS ---
[facility] - General General Date of Admission: 04/16/25 Date of Service: 04/16/25 Chief Complaint: Requesting EtOH Detox. HPI Narrative MICHAEL MCNEILL, is a 49 M with a past medical history of bipolar disorder, smokeless tobacco abuse, history of bilateral inguinal hernia, history of CVA, history of Left ankle fracture; s/p repair, chronic EtOH abuse; patient admitting to drinking ~3-4 tall boy beers daily in addition to whiskey, history of EtOH detox ~18 months ago, methamphetamine abuse, cannabis abuse and history of asthma/COPD with bulla of lung; with recent exacerbation causing visit to the ER here on March 30, 2025 who presents to [facility] ER requesting EtOH detox. Mr. Mcneill reports his symptoms began a few hours prior to admission after his last drink. He states his symptoms are similar to his previous EtOH withdrawal. He denies other recent illicit drug use. He denies associated fever, chills, nausea, vomiting, diarrhea, constipation, abdominal pain, chest pain, palpitations, heart racing, lower extremity edema, dysuria, hematuria, headache, seizures, hallucinations or rash. In the ER he was noted to have a CRISTINE of <10 mg/dL with early symptoms of EtOH withdrawal in the setting of chronic EtOH abuse and he was then admitted to the general medical floor for ongoing care for state that is expected to extend beyond 2 midnights. FOR[facility]LY [facility] Medical History (Updated 04/16/25 @ 23:[address] Jaquan Villarreal DO) ETOH abuse Methamphetamine abuse Asthma Depression Anxiety Methamphetamine abuse Ankle fracture, left Bipolar disorder Depression Anxiety Past history of chewing tobacco use Asthma with COPD Anxiety and depression Inguinal hernia bilateral, non-recurrent Hypertension Stroke/cerebrovascular accident Alcohol abuse Bulla of lung GERD (gastroesophageal reflux disease) Home Medications ?Medication ?Instructions ?Recorded ?Last Taken ?Type NK 04/16/25 Unknown History Allergy/AdvReac Type Severity Reaction Status Date / Time No Known Allergies Allergy Verified 04/16/25 21:32 Family History Father Alcoholism CAD (coronary artery disease) Heart disease Hypertension Mother Alcoholism Seizures Surgical History History of ankle surgery Social History housing: homeless Smoking Status: Former smoker Smokeless tobacco user: chewing tobacco how long ago did patient quit smoking: Notes no cig tob use, prior chew only but no current, ongoing cannabis use. alcohol intake: current alcohol intake frequency: a few times a week details: 5-6 beers daily, occasionally whiskey. substance use type: marijuana, amphetamines, opiates and methamphetamine ROS ROS Narrative Review of Systems: Constitutional: Patient denies fever or chills. Eyes: Patient denies changes in vision, hallucinations or discharge from eyes. ENT: Patient denies runny nose, sore throat or ear pain. Resp: Patient denies shortness of breath, wheezing or cough. CV: Patient denies chest pain, palpitations, heart racing or lower extremity edema. GI: Patient denies abdominal pain, nausea, vomiting, diarrhea or constipation. : Patient denies dysuria or hematuria. MSK: Patient denies arthralgias or myalgias. Skin: Patient denies rash, abscess, wounds or jaundice. Psych: Patient admits to depression and anxiety but he denies SI or HI. Neuro: Patient denies headache, paresthesias, tremors or focal neurologic deficits. Allergy: Patient denies lip swelling, tongue swelling or urticaria. Hematology: Patient denies easy bleeding or easy bruisability. Endocrinology: Patient denies polyuria, polydipsia, polyphagia or heat/cold intolerance. 14 point ROS otherwise negative except for positives noted above in HPI. Vital Signs Vital Signs Vital Signs: 04/16/25 21:32 Temperature 98 F Temperature Source Oral Pulse Rate 104 H Respiratory Rate 18 Blood Pressure 138/98 H Blood Pressure Mean 111 Pulse Ox 98 Weight Weight: 123 lb 3.2 oz Body Mass Index (BMI) 19.8 Physical Exam Const alert, oriented x3, no apparent distress and average body habitus General Appearance: cooperative HEENT normocephalic, head/scalp atraumatic, hearing grossly normal bilaterally and moist oral mucous membranes Eyes PERRL, EOMs intact bilaterally and conjunctivae normal Neck no lymphadenopathy, supple and no JVD Resp normal respiratory effort, no retractions, no use of accessory muscles and clear to auscultation bilaterally Cardio regular rate and regular rhythm GI normal to inspection, nondistended, normoactive bowel sounds, soft to palpation, non-tender and non-distended Extremity normal to inspection, full ROM and no clubbing, cyanosis or edema Skin Skin Narrative: Patient has no evidence of rash, abscess, wounds or jaundice. Neuro oriented x3, CN's II-XII intact bilaterally, moves all extremities and no focal motor deficits Sensorium / Orientation: awake, alert, oriented to person, oriented to place and oriented to time Speech: speech normal Psych affect normal Results Medical Records Data Attestation: I reviewed the patient's medical records Lab / Micro Data Attestation: I reviewed the patient's lab results. 04/16/25 21:55 04/16/25 21:55 Labs: Laboratory Results - last 24 hr 04/16/25 21:55: WBC 7.9, RBC 4.43 L, Hgb 13.6, Hct 40.0, MCV 90.3, MCH 30.7, MCHC 34.0, RDW Std Deviation 41.8, RDW Coeff of Bridger 12.6, Plt Count 290, MPV 9.0, Immature Gran % (Auto) 0.300, Neut % (Auto) 71.0 H, Lymph % (Auto) 18.5 L, [place] % (Auto) 6.1, Eos % (Auto) 3.3, Baso % (Auto) 0.8, Absolute Neuts (auto) 5.6, Absolute Lymphs (auto) 1.46, Nucleated RBC % 0 Assessment & Plan Assessment/Plan (1) Alcohol withdrawal: QUALIFIERS: Complication of substance-induced condition: u ncomplicated Qualified Code(s): F10.930 - Alcohol use, unspecified with withdrawal, uncomplicated (2) ETOH abuse: (3) Tobacco abuse: (4) Methamphetamine use: (5) Marijuana use: PLAN: Plan 1. Early symptoms of EtOH withdrawal in the setting of chronic EtOH abuse - Admit to general medical floor for treatment under the EtOH detoxification protocol primarily consisting of phenobarbital taper. EtOH cessation will be strongly encouraged. Give ondansetron as needed for nausea and vomiting. Give ibuprofen as needed for pain or fever. 2. Smokeless Tobacco Abuse complicating #1 - Tobacco cessation will be strongly encouraged with nicotine patch offered to control cravings. 3. History of methamphetamine abuse - UDS pending at this time. Nevertheless, methamphetamine cessation will be strongly encouraged. 4. History of cannabis abuse - Cannabis cessation will be strongly encouraged. 5. History of asthma/COPD with bulla of lung; with recent exacerbation causing visit to the ER here on March 30, 2025 - Noted with no evidence of acute flare at this time. Continue as needed nebulizers. 6. Bipolar disorder; not currently on treatment - Noted. 7. History of bilateral inguinal hernia - Noted with no active complaints related to this issue at this time. 8. History of CVA - Noted. 9. History of Left ankle fracture; s/p repair - Stable. 10. DVT prophylaxis - Enoxaparin 40 mg sq daily. Total time: Approximately (but not less than) 55 minutes. Charges/Coding Visit Charges Inpatient E&M: 92797 Init Hosp L2
[2025-04-16 22:44] LABS: AST(SGOT) 44 U/L (<=37); Alanine Aminotransfer ALT/SGPT 61 U/L (<=46); Albumin, Serum 4.5 g/dL (3.5-5.0); Alkaline Phosphatase 60 U/L (40-129); Anion Gap 12 (5-15); BUN 22 mg/dL (4-19); BUN/Creat Ratio 22.4 RATIO (10-20); Calcium,Total 10.0 mg/dL (7.6-11.0); Carbon Dioxide 26.4 mmol/L (21.0-32.0); Chloride 101 mmol/L (98-108); Estimated Creatinine Clearance 72.81 ml/min (50-250); Globulin 3.3 g/dL (2.2-4.2); Glucose 104 mg/dL (70-99); Potassium 4.3 mmol/L (3.3-5.1)
[2025-04-16 22:45] LABS: Alcohol, Blood (Medical)-Serum < 10.1 mg/dL (<=10.0)
[2025-04-16 23:11] VITALS: BP 128/88; PULSE 82; RESP 16; TEMP 36.8; O2SAT 100
[2025-04-16 23:22] VITALS: BP 129/86; PULSE 75; RESP 16; TEMP 36.6; O2SAT 100
[2025-04-16 23:23] VITALS: BMI 19.6
[2025-04-16 23:26] LABS: Magnesium 2.0 mg/dL (1.5-2.2)
[2025-04-16] MEDS: hydrOXYzine PAM 25 MG Capsule 50 MG PO (23:51)
[2025-04-16] MEDS: 0.9% Normal Saline (1000mL) 1,000 ML 150 ML IV (23:52)
[2025-04-16] MEDS: 0.9% Saline Lock 10 ML Syringe IV (23:52)
[2025-04-17] VITALS (7 sets, daily range): BP systolic 94–110; BP diastolic 53–66; PULSE 65–74; RESP 16–18; TEMP 36.6–37; O2SAT 98–100; BMI 19.5
--- OUTSIDE RECORDS SUMMARY | 2025-04-17 00:17 | XMS RPT_ITS | CCD ---
Author Organization [facility] Care Team Providers Care Dross Skimmer Name Role Phone CONSULT, ED PSYCHIATRY TEAM [...] Emergency Provider Dr. Jerome Lu Admit Provider MattyeDr. Jerome marc Attending Provider Dr. Jerome Lu Other Provider TerDr. Nelson chavez Attending Provider Dr. Nelson Mckeon Other Provider [...] Michael De Anda Emergency Provider Dr. Alisha Mcintyer Admit Provider Dr. Alisha Mcintyre Other Provider [...] Provider Dr. Lacho Joy DO Referring Provider Dr. Lacho Joy DO Emergency Provider Homar Nieves MD Emergency Provider Care Physician, No Primary Primary Care Provider Unavailable Cassie JONES, Dr. Madrid Emergency Provider [phone] Cassie JONES, Dr. [place] Attending Provider Homar Nieves MD Attending Provider Nico WEI, Dr. Strong Emergency Provider Care Physician, No Primary Primary Care Provider Unavailable Dr. Julius Matthews DO Emergency Provider iNco WEI, Dr. Strong Attending Provider Michaelle JONES, Dr. Cortes Referring Provider Michaelle JONES, Dr. Cortes Emergency Provider [phone] Mayuri JONES, Dr. Stevenson Emergency Provider [phone] Graham Tolbert Attending Unavailable Care Physician, No Primary Primary Care Unava ilable Monroy, Troy Referring Unavailable Monroy, Troy Consulting Unavailable Monroy, Troy Admitting Unavailable JoEdouard funezic Consulting Unavailable Care Physician, No Primary Primary Care Unava ilable Erik, Trang Consulting Unavailable Erik, Trang Admitting Unavailable Erik, Trang Attending Unavailable JoGraham funez Attending Unavailable Monroy, Troy Referring Unavailable Monroy, Troy Consulting Unavailable Monroy, Troy Admitting Unavailable Care Physician, No Primary Primary Care Unava ilable Graham Tolbert Attending Unavailable Tomasz Graham Consulting Unavailable Care Physician, No Primary Primary Care Unava ilable Andrew Henning Attending Unavailable Care Physician, No Primary Primary Care Unava ilable Andrew Henning Attending Unavailable Julius Matthews Attending Unavailable Care Physician, No Primary Primary Care Unava ilable Graham Tolbert Attending Unavailable Care Physician, No Primary Primary Care Unava ilable Erik, Trang Consulting Unavailable Erik, Trang Admitting Unavailable Erik, Trang Referring Unavailable Care Physician, No Primary Primary Care Unava ilable Graham Messina Attending Unavailable Julius Matthews Attending Unavailable Care Physician, No Primary Primary Care Unava ilable Baousty-BeatrizLacho Referring Unavailabl e Klusty-Lacho Henderson Attending Unavailabl e Care Physician, No Primary Primary Care Unava ilable Care Physician, No Primary Primary Care Unava ilable Homar Nieves Attending Unavailable Tae Walsh Attending Unavailable Care Physician, No Primary Primary Care Unava ilable Maximilian Bernstein Attending Unavailable Care Physician, No Primary Primary Care Unava ilable Sebastian Braswell Referring Unavailable Sebastian Braswell Attending Unavailable Care Physician, No Primary Primary Care Unava ilable Care Physician, No Primary Primary Care Unava ilable Graham Messina Attending Unavailable Julius Matthews Attending Unavailable Care Physician, No Primary Primary Care Unava ilable Troy Monroy Attending Unavailable Care Physician, No Primary Primary Care Unava ilable Care Physician, No Primary Primary Care Provider Unavailable Dr. Sebastian Braswell DO Attending Provider [phone] Dr. Graham Messina DO Attending Provider Dr. Twan Garcia MD Emergency Provider [phone] Dr. Jaquan Villarreal DO Admit Provider Unavail able Villarreal DO, Dr. Partida Attending Provider Unav ailable Allergies Allergy Classification Reported Allergen(s) Allergy Type Date of Onset Reaction(s) Facility (1 source) Seasonal allergy; Translations: [SEASONAL ALLERGIES] Propensity to adverse reactions (disorder) 3 [facility] Repository Medications Current Medications Medication Drug [...] TWICE A DAY March 28, 2022 12:00am Home (Nk) (3 sources) Start: 04-16-2025 Home (Nk) Active April 16, 2025 12:00am Start: 03-29-2025 Home (Nk) A ctive March 29, 2025 12:00am Start: 03-19-2022 Home (Nk) A ctive March 19, 2022 12:00am [...] September 05, 2022 12:00am polyethylene glycol 3350 [id number] mg / potassium chloride 2970 mg / sodium bicarbonate 6740 mg / sodium chloride 5860 mg / sodium sulfate 11841 mg powder for oral solution (1 source) Osmotic Laxative Start: 08-28-20 End: 08-28-20 peg 3350-Electrolytes (GOLYTELY) [id number] -5.86 [...] Drug Class(es) Dates Sig (Normalized) Sig (Original) [id number] 200 actuat albuterol 0.09 mg/actuat metered dose inhaler (20 sources) beta2-Adrenergic Agonist Start: 12-13-2024 End: 03-29-2025 Albuterol Sulfate (Ventolin Hfa) 90 mcg/actuation HFA aerosol inhaler Discontinued 1 - 2 NMA INHALATION EVERY 4 HOURS NEEDED as needed for Wheezing 1 0 January 19, 2025 12:00am March 29, 2025 5:58pm Start: 11-12-2024 End: 04-16-2025 Albuterol Sulfate 90 mcg/act uation HFA aerosol inhaler Discontinued 2 NMA INHALATION EVERY 6 HOURS March 30, 2025 12:00am April 16, 2025 9:44pm Start: 09-07-2024 End: 03-29-2025 Albuterol Sulfate 90 [...] PUFF INHALATION EVERY 4 HOURS NEEDED 8.5 30 October 15, 2023 12:00am October 29, 2023 [...] mg / clavulanate 125 mg oral tablet (5 sources) Penicillin-class Antibacterial Start: 10-22-2024 End: 03-29-2025 Amoxicillin-Pot Clavulanate 875-125 mg tablet Discontinued 1 {tbl} PO Q12H 10 0 October 22, 2024 1:00am March 29, 2025 5:58pm azithromycin 250 mg oral tablet (5 sources) Macrolide Antimicrobial Start: 09-19-2024 End: 10-21-2024 Azithromycin 250 mg tablet Discontinued 0 PO .COMPLEX 6 0 September 19, 2024 1:00am October 21, 2024 5:27pm For 250 mg dose pack: take 500 mg today (day 1), then 250 mg for 4 days (days 2-5) chlordiazePOXIDE hydrochloride 25 mg oral capsule (5 sources) Benzodiazepine Start: 06-03-2024 End: 08-03-2024 take 1 capsule by mouth four times daily Chlordiazepoxide Hcl 25 mg capsule Discontinued 25 mg PO 4 TIMES DAILY 20 5 June 03, 2024 12:00am August 03, 2024 [...] guaiFENesin 1200 mg extended release oral tablet (5 sources) Start: 11-12-2024 End: 03-29-2025 take 1 tablet by mouth twice daily, then take 1 tablet by mouth every twelve hours Guaifenesin (Mucus Relief Er) 1,200 mg Tablet Extended Release 12hr Discontinued 1200 mg PO TWICE A DAY 10 0 November 12, 2024 1:00am March 29, 2025 5:58pm hydrocortisone 10 mg/ml topical cream (5 sources) Corticosteroid Start: 06-02-2024 End: 06-03-2024 Hydrocortisone 1 % cream Discontinued 1 NMA TOPICAL TWICE A DAY 28.4 5 0 June 02, 2024 12:00am June 03, 2024 5:23am Multivitamin (Daily Multi-Vitamin) tablet (6 sources) Start: 10-31-2023 End: 06-03-2024 Multivitamin (Daily Multi-Vitamin) tablet Discontinued 1 {tbl} PO DAILY 30 October 31, 2023 1:00am June 03, 2024 5:23am Start: 10-31-2023 End: 06-03-2024 Multivitamin (Daily Multi-Vi tamin) tablet Discontinued 1 {tbl} PO DAILY October 31, 2023 1:00am June 03, 2024 5:23am Start: 10-31-2023 take 1 tablet by simón once daily Multivitamin (Daily Multi-Vitamin) tablet Active 1 TABLET PO DAILY October 31, 2023 12:00am Multivitamin Tablet (5 sources) Start: 11-12-2024 End: 03-29-2025 Multivitamin Tablet Disconti nued 1 {tbl} PO WITH LUNCH 0 November 12, 2024 1:00am March 29, 2025 5:59pm Start: 11-12-2024 Multivitamin T ablet Active 1 {tbl} PO WITH LUNCH 0 November 12, 2024 1:00am naproxen 500 mg oral tablet (14 sources) Nonsteroidal Anti-inflammatory Drug Start: 03-26-2023 End: 09-01-2023 take 1 tablet by mouth twice daily Naproxen 500 mg tablet Discontinued 500 mg PO TWICE A DAY 14 0 March 26, 2023 12:00am September 01, 2023 1:30am pain ondansetron 4 mg disintegrating oral tablet (5 sources) Serotonin-3 Receptor Antagonist Start: 06-03-2024 End: 08-03-2024 take 1 tablet by mouth three times daily as needed for nausea and vomiting Ondansetron 4 mg tablet,disintegr ating Discontinued 4 mg PO THREE TIMES A DAY as needed for nausea and vomiting 21 0 June 03, 2024 6:21am August 03, 2024 8:40pm penicillin v potassium 500 mg oral tablet (14 sources) Start: 03-26-2023 End: 09-01-2023 take 1 tablet by mouth four times daily predniSONE 20 mg oral tablet (20 sources) Start: 10-22-2024 End: 03-29-2025 take 2 tablets by mouth once daily Prednisone 20 mg tablet Discontinued 40 mg PO DAILY 10 5 0 2024 1:00am March 29, 2025 5:58pm Start on 11/28/2024 Start: 09-19-2024 End: 10-21-2024 take 1 tablet by mouth once daily Prednisone 50 mg tablet Discontinued 50 mg PO DAILY 5 September 19, 2024 1:00am October 21, 2024 [...] mg / trimethoprim 160 mg oral tablet (5 sources) Dihydrofolate Reductase Inhibitor Antibacterial, Sulfonamide Antimicrobial [...] unspecified with intoxication, unspecified] Episodic Anxiety disorders (10 sources) Anxiety; Translations: [Anxiety disorder, unspecified] 06-11-2024 Chronic Asthma (20 sources) Exacerbation of asthma; Translations: [Unspecified asthma with (acute) exacerbation] Onset: 11-19-2024 09-21-2020 Chronic Cardiac dysrhythmias (20 sources) ECG: sinus tachycardia; Translations: [Tachycardia, unspecified] 10-24-2020 Episodic Chronic obstructive pulmonary disease and bronchiectasis (20 sources) Bulla of lung; Translations: [Emphysema, unspecified] 02-07-2021 Chronic Chronic obstructive pulmonary disease and bronchiectasis (5 sources) Bronchitis; Translations: [Bronchitis, not specified as acute or chronic] 09-27-2024 Episodic Conditions associated with dizziness or vertigo (20 sources) Dizziness; Translations: [Dizziness and giddiness] 02-20-2022 Episodic Diabetes mellitus without complication (8 sources) Hyperglycemia; Translations: [Hyperglycemia, unspecified] Onset: 11-19-2024 11-19-2024 Episodic Diseases of white blood cells (8 sources) Leukocytosis; Translations: [Elevated white blood cell count, unspecified] Onset: 11-19-2024 11-19-2024 Chronic Disorders of teeth and jaw (20 sources) Dislocation of tooth; Translations: [Dislocation of tooth, initial encounter] 11-03-2022 Episodic E Codes: Fall (19 sources) Fall; Translations: [Unspecified fall, initial encounter] 11-03-2022 Episodic Esophageal disorders (20 sources) Gastroesophageal reflux disease; Translations: [Gastro-esophageal reflux disease without esophagitis] 03-19-2022 Chronic Essential hypertension (5 sources) Hypertensive disorder; Translations: [Essential (primary) hypertension] [...] virus with other respiratory manifestations] 09-13-2022 Episodic Malaise and fatigue (1 source) Weakness; Translations: [Weakness] Onset: 04-02-2025 Episodic Mood disorders (10 sources) Bipolar disorder; Translations: [Bipolar disorder, unspecified] 06-11-2024 Chronic Nonspecific chest pain (3 sources) Chest pain; Translations: [Chest pain, unspecified] 03-29-2025 Episodic Open wounds of extremities (17 sources) Laceration of hand; Translations: [Laceration without foreign body of left hand, initial encounter] 12-15-2022 Episodic Open wounds of head; neck; and trunk (19 sources) Laceration of lip ; Translations: [Laceration without foreign body of lip, initial encounter] 11-03-2022 Episodic Other lower respiratory disease (8 sources) Radiologic infiltrate of lung ; Translations: [Other nonspecific abnormal finding of lung field] 09-13-2022 Episodic Other lower respiratory disease (20 sources) H/O: asthma; Translations: [Personal history of other diseases of the respiratory system] 10-31-2022 Episodic Other lower respiratory disease (14 sources) Single lobe lung infiltrate; Translations: [Other nonspecific abnormal finding of lung field] 09-13-2022 Episodic Other lower respiratory disease (5 sources) Cough; Translations: [Cough] 12-13-2024 Episodic Other lower respiratory disease (5 sources) Nodule of lung; Translations: [Solitary pulmonary nodule] 12-13-2024 Episodic Other lower respiratory disease (1 source) Shortness of breath; Translations: [Shortness of breath] Onset: 04-02-2025 Episodic Other nervous system disorders (20 sources) Cold feet; Translations: [Unspecified disturbances of skin sensation] 08-22-2022 Episodic Other screening for suspected conditions (not mental disorders or infectious disease) (1 source) Patient encounter status; Translations: [Encounter for screening for malignant neoplasm of colon] 08-28-2023 Episodic Other skin disorders (5 sources) Folliculitis; Translations: [Follicular disorder, unspecified] 06-10-2024 Episodic Other upper respiratory infections (20 sources) Viral upper respiratory tract infection; Translations: [Acute upper respiratory infection, unspecified] Episodic Residual codes; unclassified (20 sources) Drug therapy finding; Translations: [Other specified health status] 08-03-2022 Episodic Residual codes; unclassified (1 source) Alcoholism; Translations: [Alcohol use disorder] 06-11-2024 Episodic Residual codes; unclassified (4 sources) Other specified conditions influencing health status; Translations: [Alcohol use disorder] 06-11-2024 Episodic Residual codes; unclassified (2 sources) Tobacco user; Translations: [Tobacco use] 04-16-2025 Episodic Respiratory failure; insufficiency; arrest (adult) (11 sources) Acute hypoxemic and hypercapnic respiratory failure; Translations: [Acute respiratory failure with hypoxia] Onset: 11-19-2024 11-19-2024 Episodic Screening and history of mental health and substance abuse codes (9 sources) H/O: manic depressive disorder; Translations: [Personal history of other mental and behavioral disorders] 06-06-2023 Episodic Substance-related disorders (20 sources) Substance abuse; Translations: [Other psychoactive substance abuse, uncomplicated] Onset: 10-23-2024 Chronic Substance-related disorders (2 sources) Marijuana user; Translations: [Cannabis use, unspecified, uncomplicated] 04-16-2025 Episodic Superficial injury; contusion (20 sources) Contusion of nose; Translations: [Contusion of nose, initial encounter] 11-03-2022 Episodic Syncope (19 sources) Syncope; Translations: [Syncope and collapse] 11-03-2022 [...] Classification Problem Date Documented Da te Episodic/Chronic Other injuries and conditions due to external causes (1 source) Unspecified injury of unspecified lower leg, initial encounter; Translations: [Unspecified injury of unspecified lower leg, initial encounter] Onset: 11-19-2024 Episodic Other skin disorders (1 source) Rash and other nonspecific skin eruption; Translations: [Rash and other nonspecific skin eruption] Onset: 11-19-2024 Episodic Skin and subcutaneous tissue infections [...] Range Facility Absolute lymphocyte countOrd ered By: Twan Garcia on 04-16-2025 Lymphocytes Auto (Unsp spec) [#/Vol] 1.46 10*3/uL 0.83-4.51 [facility] Absolute neutrophil countOrd ered By: Twan Garcia on 04-16-2025 Neutrophils (Bld) [#/Vol] 5.6 10*3/uL 2.0-7.7 [facility] Anion gap in Serum or Plasma Ordered By: Twan Garcia on 04-16-2025 Anion gap [Moles/Vol] 12 mmol/L 5-15 [facility] Automated lymphocyte count a s percentage of total leukocytesOrdered By: Twan Garcia on 04-16-2025 Lymphocytes/100 WBC Auto (Unsp spec) 18.5 % Low 19-41 [facility] BUN/creatinine ratioOrdered By: Twan Garcia on 04-16-2025 Urea nitrogen/Creatinine [Mass ratio] 22.4 mg/mg High 10-20 [facility] Basophil percentageOrdered B y: Twan Garcia on 04-16-2025 Basophils/100 WBC (Bld) 0.8 % 0-1 [facility] Bilirubin, totalOrdered By: Twan Garcia on 04-16-2025 Bilirubin [Mass/Vol] 0.54 mg/dL 0.00-1.30 [facility] Carbon dioxide, total [Moles /volume] in Central venous bloodOrdered By: Twan Garcia on 04-16-2025 CO2 [Moles/Vol] 26.4 mmol/L 21.0-32.0 [facility] Chloride assayOrdered By: Wicho Garcia on 04-16-2025 Chloride [Moles/Vol] 101 mmol/L 98-108 [facility] Eosinophil percentageOrdered By: Twan Garcia on 04-16-2025 Eosinophils/100 WBC (Bld) 3.3 % 0-5 [facility] Erythrocyte distribution wid th ratioOrdered By: Twan Garcia on 04-16-2025 Erythrocyte distribution width (RBC) [Ratio] 12.6 % 11.6-14.6 [facility] Erythrocyte distribution wid th standard deviationOrdered By: Twan Garcia on 04-16-2025 Erythrocyte distribution width (RBC) [Ratio] 41.8 fl 35.1-43.9 [facility] Glomerular filtration rate ( GFR) estimation/1.73 sq m using serum, plasma, or whole bOrdered By: Twan Garcia on 04-16-2025 GFR/1.73 sq M.predicted among non-blacks MDRD (S/P/Bld) [Vol rate/Area] 96 mL/min/{1.73_m2} >60 [facility] Comment on above: mL/min/1.73m2 CKD-EP I Creatinine Equation (2020) Hematocrit Auto (Bld) [Volum e fraction]Ordered By: Twan Garcia on 04-16-2025 Hematocrit (Bld) [Volume fraction] 40.0 % 40-54 [facility] Hemoglobin measurementOrdere d By: Twan Garcia on 04-16-2025 Hemoglobin (Bld) [Mass/Vol] 13.6 g/dL 13.0-16.5 [facility] Immature granulocytes/100 WB C Auto (Bld)Ordered By: Twan Garcia on 04-16-2025 Immature granulocytes/100 WBC (Bld) 0.300 % 0.0-0.9 [facility] Comment on above: IG% - Immature Granu locytes (promyelocytes, myelocytes and metamyelocytes) > 1% indicates that a LEFT SHIFT is Present. Laboratory - Chemistry and C hemistry - challengeOrdered By: Twan Garcia on 04-16-2025 AST [Catalytic activity/Vol] 44 U/L High <38 [facility] MCV (mean corpuscular volume ) determinationOrdered By: Twan Garcia on 04-16-2025 MCV (RBC) [Entitic vol] 90.3 fL 80-94 [facility] Mean corpuscular hemoglobin (MCH) determinationOrdered By: Twan Garcia on 04-16-2025 MCH (RBC) [Entitic mass] 30.7 pg 27.0-32.0 [facility] Mean corpuscular hemoglobin concentration (MCHC) determinationOrdered By: Twan Garcia on 04-16-2025 MCHC (RBC) [Mass/Vol] 34.0 g/dL 32-36 [facility] Mean platelet volume determi nationOrdered By: Twan Garcia on 04-16-2025 Platelet mean volume (Bld) [Entitic vol] 9.0 fL 6.2-12.0 [facility] Monocyte percentageOrdered B y: Twan Garcia on 04-16-2025 Monocytes/100 WBC (Bld) 6.1 % 0-10 [facility] Neutrophil percentageOrdered By: Twan Garcia on 04-16-2025 Neutrophils/100 WBC (Bld) 71.0 % High 47-70 [facility] Nucleated red blood cell per centageOrdered By: Twan Garcia on 04-16-2025 Nucleated RBC/100 WBC (Bld) [Ratio] 0 % 0-5 [facility] Platelet countOrdered By: Wicho Garcia on 04-16-2025 Platelets (Bld) [#/Vol] 290 10*3/uL 150-450 [facility] Potassium measurement (mass/ volume)Ordered By: Twan Garcia on 04-16-2025 Potassium (Unsp spec) [Mass/Vol] 4.3 mmol/L 3.3-5.1 [facility] RBC Auto (Bld) [#/Vol]Ordere d By: Twan Garcia on 04-16-2025 RBC (Bld) [#/Vol] 4.43 10*6/uL Low 4.6-6.2 [facility] Serum creatinine measurement (mass/volume)Ordered By: Twan Garcia on 04-16-2025 Creatinine [Mass/Vol] 0.97 mg/dL 0.70-1.20 [facility] Serum globulin measurementOr dered By: Twan Garcia on 04-16-2025 Globulin (S) [Mass/Vol] 3.3 g/dL 2.2-4.2 [facility] Serum glucose measurement (m ass/volume)Ordered By: Twan Garcia on 04-16-2025 Glucose [Mass/Vol] 104 mg/dL High 70-99 [facility] Serum or plasma alanine love otransferase (ALT) measurementOrdered By: Twan Garcia on 04-16-2025 ALT [Catalytic activity/Vol] 61 U/L High <47 [facility] Serum or plasma albumin micah urement (mass/volume)Ordered By: Twan Garcia on 04-16-2025 Albumin [Mass/Vol] 4.5 g/dL 3.5-5.0 [facility] Serum or plasma albumin/glob ulin mass ratioOrdered By: Twan Garcia on 04-16-2025 Albumin/Globulin [Mass ratio] 1.4 {ratio} 0.9-2.4 [facility] Serum or plasma alkaline jd sphatase measurementOrdered By: Twan Garcia on 04-16-2025 ALP [Catalytic activity/Vol] 60 U/L 40-129 [facility] Serum or plasma calcium micah urement (mass/volume)Ordered By: Twan Garcia on 04-16-2025 Calcium [Mass/Vol] 10.0 mg/dL 7.6-11.0 [facility] Serum or plasma ethanol micah urement (mass/volume)Ordered By: Twan Garcia on 04-16-2025 Ethanol [Mass/Vol] mg/dL <10.1 [facility] Comment on above: This test is for med ical purposes only. The legal definition of intoxication varies according to local law. Serum or plasma urea nitroge n measurement (mass/volume)Ordered By: Twan Garcia on 04-16-2025 Urea nitrogen [Mass/Vol] 22 mg/dL High 4-19 [facility] Sodium levelOrdered By: Twan Garcia on 04-16-2025 Sodium [Moles/Vol] 140 mmol/L 133-145 [facility] Total proteinOrdered By: Marcellus Garcia on 04-16-2025 Protein [Mass/Vol] 7.9 g/dL 5.9-8.4 [facility] White blood cell (WBC) count Ordered By: Twan Garcia on 04-16-2025 WBC (Bld) [#/Vol] 7.9 10*3/uL 4.4-11.0 [facility] Emergency Department Summary on 03-30-2025 Emergency Department Summary [facility] Medical Records Department [address] [place] [address] Emergency Department Summary 03/30/25 MR#: [id number] Acct: [id number] Name: MICHAEL MCNEILL SANTOS Rep #: [id number] : 1975 49 From: Graham Messina DO PCP: Care Physician,No Primary Status:DEP ER Location: ED HPI History of Present Illness Chief Complaint: Shortness of Breath Narrative Narrative: Patient presents with shortness of breath that became worse today. Patient states he has a history of asthma. Patient states his asthma gets worse in the summertime with that heat. Patient states he feels like he is wheezing in his upper chest. Patient states he has had similar symptoms over the past month. Patient states it comes and goes. Patient states it is better when he is able to drink lots of water. Patient states heat makes it worse. Patient denies any fevers or chills. Patient denies any chest pain. Prior similar symptoms: Yes PFSH [facility] Medical History ETOH abuse Methamphetamine abuse Asthma Depression Anxiety Methamphetamine abuse Ankle fracture, left Bipolar disorder Depression Anxiety Past history of chewing tobacco use Asthma with COPD Anxiety and depression Inguinal hernia bilateral, non-recurrent Hypertension Stroke/cerebrovascular accident Alcohol abuse Bulla of lung GERD (gastroesophageal reflux disease) Home Medications ???Medication ???Instructions ???Recorded ???Last Taken ???Type albuterol sulfate 90 mcg/actuation 2 inh inhalation Q6H 03/30/25 Un known History aerosol inhaler Allergy/AdvReac Type Severity Reaction Status Date / Time No Known Allergies Allergy Verified 03/29/25 17:47 Family History Father Alcoholism CAD (coronary artery disease) Heart disease Hypertension Mother Alcoholism Seizures Surgical History History of ankle surgery Social History housing: homeless Smoking Status: Unknown if ever smoked Smokeless [...] Denies chest pain or palpitations Respiratory/Chest Respiratory/Chest: Reports dyspnea; Denies cough Gastrointestinal Gastrointestinal: Denies nausea or vomiting Genitourinary Genitourinary ED: Denies dysuria or hematuria Musculoskeletal Musculoskeletal: Denies back pain or neck pain Integumentary Denies abscess or rash Neurologic Neurologic: Denies headache(s) or weakness Allergic/Immunologic Allergic/Immunologic ED: Denies mouth swelling or urticaria EXAM Physical Exam Const Vital Signs: 03/30/25 10:44 03/30/25 11:39 Temperature 98.4 F Temperature Source Temporal Pulse Rate 86 Respiratory Rate 19 H Respiratory Effort Normal Non-Labored Respiratory Pattern Normal Blood Pressure 110/78 Blood Pressure Mean 88 Pulse Ox 98 Oxygen Delivery Method Room Air Room [...] Narrative Medical decision making narrative: Patient is requesting an albuterol inhaler. Patient was given 2 puffs of an albuterol inhaler here in the emergency department. Patient was given the inhaler to go home with. Patient was given a referral for primary care physician for follow-up care. Patient was instructed to return if worse in any way. Patient understood and was agreeable with the plan. All questions were answered. History Record Review Additional record(s) reviewed:: Prior ED visit Discharge Plan Triage Chief Complaint: Shortness of Breath ED Provider: Graham Messina Dx/Rx/DC Orders Clinical Impression: Asthma exacerbation, Substance abuse Instructions: ED Asthma, Acute (Adul (more content not included)... Normal [facility] 12 Lead EKGon 03-29-2025 12 Lead EKG [facility] Cardiovascular Services [address] [place] [address] 12 Lead EKG 03/29/25 2130 MR#: [id number] Acct: [id number] Name: MICHAEL MCNEILL SANTOS Rep #: [id number] : 1975 49 From: Markus Perry MD Attending Dr: Status: DEP ER Ordering Dr: Sebastian Braswell DO Date: 03/29/25 Location: ED Sex: M C Admitted: Test Reason : REPEAT Blood Pressure : */* mmHG Vent. Rate : 75 BPM Atrial Rate : 75 BPM P-R Int : 130 ms QRS Dur : 94 ms QT Int : 406 ms P-R-T Axes : 76 74 63 degrees QTcB Int : 453 ms Normal sinus rhythm Normal ECG Confirmed by MARKUS PERRY MD ([id number]), editor in chief newspaper [employer]BLES ([id number]) on 04/01/2025 11:04:55 AM Referred By: Sebastian Braswell Confirmed By: MARKUS PERRY MD 04/01/25 1104 Date Markus Perry MD CC: Dr. Sebastian Brasewll DO; No Primary Care Physician Signed Normal [facility] 12 Lead EKG [facility] Cardiovascular Services [address] [place] [address] 12 Lead EKG 03/29/25 1855 MR#: [id number] Acct: [id number] Name: MICHAEL MCNEILL SANTOS Rep #: [id number] : 1975 49 From: Markus Prery MD Attending Dr: Status: DEP ER Ordering Dr: Sebastian Braswell DO Date: 03/29/25 Location: ED Sex: M C Admitted: Test Reason : DYSRHYTHMIA Blood Pressure : */* mmHG Vent. Rate : 77 BPM Atrial Rate : 77 BPM P-R Int : 130 ms QRS Dur : 92 ms QT Int : 416 ms P-R-T Axes : 72 58 65 degrees QTcB Int : 470 ms Normal sinus rhythm Normal ECG Confirmed by MARKUS PERRY MD ([id number]), editor in chief newspaper PEBBLES FELICIANO ([id number]) on 04/01/2025 6:42:10 AM Referred By: Sebastian Braswell Confirmed By: MARKUS PERRY MD 04/01/25 0642 Date Markus Perry MD CC: Dr. Sebastian Braswell DO; No Primary Care Physician Signed Normal [facility] Absolute lymphocyte countOrd ered By: Sebastian Braswell on 03-29-2025 Lymphocytes Auto (Unsp spec) [#/Vol] 2.05 10*3/uL 0.83-4.51 [facility] Absolute neutrophil countOrd ered By: Sebastian Braswell on 03-29-2025 Neutrophils (Bld) [#/Vol] 4.2 10*3/uL 2.0-7.7 [facility] Anion gap in Serum or Plasma Ordered By: Sebastian Braswell on 03-29-2025 Anion gap [Moles/Vol] 17 mmol/L High 5-15 [facility] Automated lymphocyte count a s percentage of total leukocytesOrdered By: Sebastian Braswell on 03-29-2025 Lymphocytes/100 WBC Auto (Unsp spec) 28.8 % 19-41 [facility] BUN/creatinine ratioOrdered By: Sebastian Braswell on 03-29-2025 Urea nitrogen/Creatinine [Mass ratio] 23.3 mg/mg High 10-20 [facility] Basophil percentageOrdered B y: Sebastian Braswell on 03-29-2025 Basophils/100 WBC (Bld) 0.8 % 0-1 [facility] Bilirubin, totalOrdered By: Sebastian Braswell on 03-29-2025 Bilirubin [Mass/Vol] 0.46 mg/dL 0.00-1.30 [facility] CBC W/Diff, Automatedon 03-03 Absolute Lymph 2.05 X10 3/uL Normal 0.83-4.51 [facility] Comment on above: Performed By: #### L 500.4050, L100.0100, L501.2450 ####[facility] [address] [place], [address] Absolute Neut 4.2 X10 3/uL Normal 2.0-7.7 [facility] Comment on above: Performed By: #### L 500.4050, L100.0100, L501.2450 ####[facility] [address] [place], [address] Basophils/100 WBC (Bld) 0.8 % Normal 0-1 [facility] Comment on above: Performed By: #### L 500.4050, L100.0100, L501.2450 ####[facility] [address] [place], [address] Eosinophils/100 WBC (Bld) 3.8 % Normal 0-5 [facility] Comment on above: Performed By: #### L 500.4050, L100.0100, L501.2450 ####[facility] [address] [place], [address] Erythrocyte distribution width (RBC) [Ratio] 12.7 % Normal 11.6-14.6 [facility] Comment on above: Performed By: #### L 500.4050, L100.0100, L501.2450 ####[facility] [address] [place], [address] Hematocrit (Bld) [Volume fraction] 38.9 % Low 40-54 [facility] Comment on above: Performed By: #### L 500.4050, L100.0100, L501.2450 ####[facility] [address] [place], [address] Hemoglobin (Bld) [Mass/Vol] 13.0 g/dL Normal 13.0-16.5 [facility] Comment on above: Performed By: #### L 500.4050, L100.0100, L501.2450 ####[facility] [address] [place], [address] IG% 0.300 Normal 0.0-0.9 [facility] Comment on above: Result Comment: IG% - Immature Granulocytes (promyelocytes, myelocytes and metamyelocytes) > 1% indicates that a LEFT SHIFT is Present. Performed By: #### L 500.4050, L100.0100, L501.2450 ####[facility] [address] [place], [address] Lymphocytes/100 WBC (Bld) 28.8 % Normal 19-41 [facility] Comment on above: Performed By: #### L 500.4050, L100.0100, L501.2450 ####[facility] [address] [place], [address] MCH (RBC) [Entitic mass] 31.0 pg Normal 27.0-32.0 [facility] Comment on above: Performed By: #### L 500.4050, L100.0100, L501.2450 ####[facility] [address] [place], [address] MCHC (RBC) [Mass/Vol] 33.4 g/dL Normal 32-36 [facility] Comment on above: Performed By: #### L 500.4050, L100.0100, L501.2450 ####[facility] [address] [place], [address] MCV (RBC) [Entitic vol] 92.8 fL Normal 80-94 [facility] Comment on above: Performed By: #### L 500.4050, L100.0100, L501.2450 ####[facility] [address] [place], [address] Monocytes/100 WBC (Bld) 7.3 % Normal 0-10 [facility] Comment on above: Performed By: #### L 500.4050, L100.0100, L501.2450 ####[facility] [address] [place], [address] Neutrophils/100 WBC (Bld) 59.0 % Normal 47-70 [facility] Comment on above: Performed By: #### L 500.4050, L100.0100, L501.2450 ####[facility] [address] [place], [address] Nucleated RBC (Bld) [#/Vol] 0 10*3/uL Normal 0-5 [facility] Comment on above: Performed By: #### L 500.4050, L100.0100, L501.2450 ####[facility] [address] [place], [address] Platelet mean volume (Bld) [Entitic vol] 9.5 fL Normal 6.2-12.0 [facility] Comment on above: Performed By: #### L 500.4050, L100.0100, L501.2450 ####[facility] [address] [place], [address] Platelets (Bld) [#/Vol] 338 10*3/uL Normal 150-450 [facility] Comment on above: Performed By: #### L 500.4050, L100.0100, L501.2450 ####[facility] [address] [place], [address] RBC (Bld) [#/Vol] 4.19 10*6/uL Low 4.6-6.2 [facility] Comment on above: Performed By: #### L 500.4050, L100.0100, L501.2450 ####[facility] [address] [place], [address] RDW SD 43.4 fl Normal 35.1-43.9 [facility] Comment on above: Performed By: #### L 500.4050, L100.0100, L501.2450 ####[facility] [address] [place], [address] WBC (Bld) [#/Vol] 7.1 10*3/uL Normal 4.4-11.0 [facility] Comment on above: Performed By: #### L 500.4050, L100.0100, L501.2450 ####[facility] [address] [place], [address] Absolute Neut Normal 2.0-7.7 [facility] Comment on above: Result Comment: Canc elled via OM: Wrong Patient Performed By: #### L 500.4050, L100.0100 ####[facility] [address] [place], [address] HCT Normal 40-54 [facility] Comment on above: Result Comment: Canc elled via OM: Wrong Patient Performed By: #### L 500.4050, L100.0100 ####[facility] [address] [place], [address] HGB Normal 13.0-16.5 [facility] Comment on above: Result Comment: Canc elled via OM: Wrong Patient Performed By: #### L 500.4050, L100.0100 ####[facility] [address] [place], [address] MCH Normal 27.0-32.0 [facility] Comment on above: Result Comment: Canc elled via OM: Wrong Patient Performed By: #### L 500.4050, L100.0100 ####[facility] [address] [place], [address] MCHC Normal 32-36 [facility] Comment on above: Result Comment: Canc elled via OM: Wrong Patient Performed By: #### L 500.4050, L100.0100 ####[facility] [address] [place], [address] MCV Normal 80-94 [facility] Comment on above: Result Comment: Canc elled via OM: Wrong Patient Performed By: #### L 500.4050, L100.0100 ####[facility] [address] [place], [address] NEUT% Normal 47-70 [facility] Comment on above: Result Comment: Canc elled via OM: Wrong Patient Performed By: #### L 500.4050, L100.0100 ####[facility] [address] [place], [address] PLT Normal 150-450 [facility] Comment on above: Result Comment: Canc elled via OM: Wrong Patient Performed By: #### L 500.4050, L100.0100 ####[facility] [address] [place], [address] RBC Normal 4.6-6.2 [facility] Comment on above: Result Comment: Canc elled via OM: Wrong Patient Performed By: #### L 500.4050, L100.0100 ####[facility] [address] [place], [address] RDW CV Normal 11.6-14.6 [facility] Comment on above: Result Comment: Canc elled via OM: Wrong Patient Performed By: #### L 500.4050, L100.0100 ####[facility] [address] [place], [address] RDW SD Normal 35.1-43.9 [facility] Comment on above: Result Comment: Canc elled via OM: Wrong Patient Performed By: #### L 500.4050, L100.0100 ####[facility] [address] [place], [address] WBC Normal 4.4-11.0 [facility] Comment on above: Result Comment: Canc elled via OM: Wrong Patient Performed By: #### L 500.4050, L100.0100 ####[facility] [address] [place], [address] Carbon dioxide, total [Moles /volume] in Central venous bloodOrdered By: Sebastian Braswell on 03-29-2025 CO2 [Moles/Vol] 22.8 mmol/L 21.0-32.0 [facility] Chest PA and Lateralon 03-29 Chest PA and Lateral [facility] Imaging Services [address] [place] [address] Chest PA and Lateral MR#: [id number] Acct: [id number] Name: MICHAEL MCNEILL SANTOS Rep #: [id number] : 1975 M 49 From: Liset Stanton nd, MD PCP: Care Physician,No Primary Status: REG ER Study: Chest PA and Lateral Date of Exam: 03/29/25 Exam# [id number] Ordering Dr: Sebastian Braswell DO PROCEDURE: CHEST [...] IMPRESSION: COPD. NO ACUTE FINDINGS. Reading Location: [id number] CC: Dr. Sebastian Braswell, DO; No Primary Care Physician [place]: Signed Normal [facility] Chloride assayOrdered By: Jesus Manuel Braswell on 03-29-2025 Chloride [Moles/Vol] 102 mmol/L 98-108 [facility] Comprehensive Metabolic Prof ilon 03-29-2025 Albumin [Mass/Vol] 4.4 g/dL Normal 3.5-5.0 [facility] Comment on above: Performed By: #### L 500.4050, L100.0100, L501.2450 ####[facility] [address] [place], [address] Albumin/Globulin [Mass ratio] 1.4 {ratio} Normal 0.9-2.4 [facility] Comment on above: Performed By: #### L 500.4050, L100.0100, L501.2450 ####[facility] [address] [place], [address] ALK PHOS 55 U/L Normal 40-129 [facility] Comment on above: Performed By: #### L 500.4050, L100.0100, L501.2450 ####[facility] [address] [place], [address] ALT [Catalytic activity/Vol] 86 U/L High <=46 [facility] Comment on above: Performed By: #### L 500.4050, L100.0100, L501.2450 ####[facility] [address] [place], [address] AST [Catalytic activity/Vol] 54 U/L High <=37 [facility] Comment on above: Performed By: #### L 500.4050, L100.0100, L501.2450 ####[facility] [address] [place], [address] Bilirubin [Mass/Vol] 0.46 mg/dL Normal 0.00-1.30 [facility] Comment on above: Performed By: #### L 500.4050, L100.0100, L501.2450 ####[facility] [address] [place], [address] BUN/CRE 23.3 RATIO High 10-20 [facility] Comment on above: Performed By: #### L 500.4050, L100.0100, L501.2450 ####[facility] [address] [place], [address] Calcium [Mass/Vol] 9.3 mg/dL Normal 7.6-11.0 [facility] Comment on above: Performed By: #### L 500.4050, L100.0100, L501.2450 ####[facility] [address] [place], [address] Chloride [Moles/Vol] 102 mmol/L Normal 98-108 [facility] Comment on above: Performed By: #### L 500.4050, L100.0100, L501.2450 ####[facility] [address] [place], [address] CO2 [Moles/Vol] 22.8 mmol/L Normal 21.0-32.0 [facility] Comment on above: Performed By: #### L 500.4050, L100.0100, L501.2450 ####[facility] [address] [place], [address] Creatinine [Mass/Vol] 1.01 mg/dL Normal 0.70-1.20 [facility] Comment on above: Performed By: #### L 500.4050, L100.0100, L501.2450 ####[facility] [address] [place], [address] ECRCL 79.84 ml/min Normal 50-250 [facility] Comment on above: Performed By: #### L 500.4050, L100.0100, L501.2450 ####[facility] [address] [place], [address] GAP 17 High 5-15 [facility] Comment on above: Performed By: #### L 500.4050, L100.0100, L501.2450 ####[facility] [address] [place], [address] GFR/1.73 sq M.predicted among non-blacks MDRD (S/P/Bld) [Vol rate/Area] 91 mL/min/{1.73_m2} Normal >60 [facility] Comment on above: Result Comment: mL/m in/1.73m2 CKD-EPI Creatinine Equation (2020) Performed By: #### L 500.4050, L100.0100, L501.2450 ####[facility] [address] [place], [address] Globulin (S) [Mass/Vol] 3.2 g/dL Normal 2.2-4.2 [facility] Comment on above: Performed By: #### L 500.4050, L100.0100, L501.2450 ####[facility] [address] [place], [address] Glucose [Mass/Vol] 244 mg/dL High 70-99 [facility] Comment on above: Performed By: #### L 500.4050, L100.0100, L501.2450 ####[facility] [address] [place], [address] Potassium [Moles/Vol] 3.5 mmol/L Normal 3.3-5.1 [facility] Comment on above: Performed By: #### L 500.4050, L100.0100, L501.2450 ####[facility] [address] [place], [address] Sodium [Moles/Vol] 141 mmol/L Normal 133-145 [facility] Comment on above: Performed By: #### L 500.4050, L100.0100, L501.2450 ####[facility] [address] [place], [address] T PROT 7.7 g/dL Normal 5.9-8.4 [facility] Comment on above: Performed By: #### L 500.4050, L100.0100, L501.2450 ####[facility] [address] [place], [address] Urea nitrogen [Mass/Vol] 24 mg/dL High 4-19 [facility] Comment on above: Performed By: #### L 500.4050, L100.0100, L501.2450 ####[facility] [address] [place], [address] ALB Normal 3.5-5.0 [facility] Comment on above: Result Comment: Canc elled via OM: Wrong Patient Performed By: #### L 500.4050, L100.0100 ####[facility] [address] [place], [address] ALK PHOS Normal 40-129 [facility] Comment on above: Result Comment: Canc elled via OM: Wrong Patient Performed By: #### L 500.4050, L100.0100 ####[facility] [address] [place], [address] ALT Normal <=46 [facility] Comment on above: Result Comment: Canc elled via OM: Wrong Patient Performed By: #### L 500.4050, L100.0100 ####[facility] [address] [place], [address] AST Normal <=37 [facility] Comment on above: Result Comment: Canc elled via OM: Wrong Patient Performed By: #### L 500.4050, L100.0100 ####[facility] [address] [place], [address] BUN Normal 4-19 [facility] Comment on above: Result Comment: Canc elled via OM: Wrong Patient Performed By: #### L 500.4050, L100.0100 ####[facility] [address] [place], [address] BUN/CRE Normal 10-20 [facility] Comment on above: Result Comment: Canc elled via OM: Wrong Patient Performed By: #### L 500.4050, L100.0100 ####[facility] [address] [place], [address] Calcium Normal 7.6-11.0 [facility] Comment on above: Result Comment: Canc elled via OM: Wrong Patient Performed By: #### L 500.4050, L100.0100 ####[facility] [address] [place], [address] CL Normal 98-108 [facility] Comment on above: Result Comment: Canc elled via OM: Wrong Patient Performed By: #### L 500.4050, L100.0100 ####[facility] [address] [place], [address] CO2 Normal 21.0-32.0 [facility] Comment on above: Result Comment: Canc elled via OM: Wrong Patient Performed By: #### L 500.4050, L100.0100 ####[facility] [address] [place], [address] CREAT,SERUM Normal 0.70-1.20 [facility] Comment on above: Result Comment: Canc elled via OM: Wrong Patient Performed By: #### L 500.4050, L100.0100 ####[facility] [address] [place], [address] eGFR Normal >60 [facility] Comment on above: Result Comment: Canc elled via OM: Wrong Patient Performed By: #### L 500.4050, L100.0100 ####[facility] [address] [place], [address] GAP Normal 5-15 [facility] Comment on above: Result Comment: Canc elled via OM: Wrong Patient Performed By: #### L 500.4050, L100.0100 ####[facility] [address] [place], [address] GLU Normal 70-99 [facility] Comment on above: Result Comment: Canc elled via OM: Wrong Patient Performed By: #### L 500.4050, L100.0100 ####[facility] [address] [place], [address] Potassium Normal 3.3-5.1 [facility] Comment on above: Result Comment: Canc elled via OM: Wrong Patient Performed By: #### L 500.4050, L100.0100 ####[facility] [address] [place], [address] T BILI Normal 0.00-1.30 [facility] Comment on above: Result Comment: Canc elled via OM: Wrong Patient Performed By: #### L 500.4050, L100.0100 ####[facility] [address] [place], [address] T PROT Normal 5.9-8.4 [facility] Comment on above: Result Comment: Canc elled via OM: Wrong Patient Performed By: #### L 500.4050, L100.0100 ####[facility] [address] [place], [address] Comprehensive Metabolic Profil Normal 133-145 [facility] Comment on above: Result Comment: Norm cabral via OM: Wrong Patient Performed By: #### L 500.4050, L100.0100 ####[facility] [address] [place], [address] Emergency Department Summary on 03-29-2025 Emergency Department Summary [facility] Medical Records Department [address] [place] [address] Emergency Department Summary 03/29/25 MR#: [id number] Acct: [id number] Name: MICHAEL MCNEILL SANTOS Rep #: [id number] : 1975 49 From: Sebastian Braswell DO [...] drug use states that he smokes meth. [facility] Medical History ETOH abuse Methamphetamine abuse Asthma [...] no evid (more content not included)... Normal [facility] Eosinophil percentageOrdered By: Sebastian Braswell on 03-29-2025 Eosinophils/100 WBC (Bld) 3.8 % 0-5 [facility] Erythrocyte distribution wid th ratioOrdered By: Sbeastian Braswell on 03-29-2025 Erythrocyte distribution width (RBC) [Ratio] 12.7 % 11.6-14.6 [facility] Erythrocyte distribution wid th standard deviationOrdered By: Sebastian Braswell on 03-29-2025 Erythrocyte distribution width (RBC) [Ratio] 43.4 fl 35.1-43.9 [facility] Glomerular filtration rate ( GFR) estimation/1.73 sq m using serum, plasma, or whole bOrdered By: Sebastian Braswell on 03-29-2025 GFR/1.73 sq M.predicted among non-blacks MDRD (S/P/Bld) [Vol rate/Area] 91 mL/min/{1.73_m2} >60 [facility] Comment on above: mL/min/1.73m2 CKD-EP I Creatinine Equation (2020) Hematocrit Auto (Bld) [Volum e fraction]Ordered By: Sebastian Braswell on 03-29-2025 Hematocrit (Bld) [Volume fraction] 38.9 % Low 40-54 [facility] Hemoglobin measurementOrdere d By: Sebastian Braswell on 03-29-2025 Hemoglobin (Bld) [Mass/Vol] 13.0 g/dL 13.0-16.5 [facility] Immature granulocytes/100 WB C Auto (Bld)Ordered By: Sebastian Braswell on 03-29-2025 Immature granulocytes/100 WBC (Bld) 0.300 % 0.0-0.9 [facility] Comment on above: IG% - Immature Granu locytes (promyelocytes, myelocytes and metamyelocytes) > 1% indicates that a LEFT SHIFT is Present. L499.0042on 03-29-2025 Trop T High Sen 7 ng/L Normal <=22 [facility] Comment on above: Performed By: #### L 9000.0800 #### [facility] Laboratory [address] [place], [address] L499.0043on 03-29-2025 Trop T High Sen Normal <=22 [facility] Comment on above: Result Comment: SANTI ENT DISCHARGED Performed By: #### L 9000.0800 #### [facility] [address] [place], [address] L501.4021on 03-29-2025 Trop T High Sen < 6 Normal <=22 [facility] Comment on above: Performed By: #### L 501.4021 #### [facility] [address] [place], [address] Laboratory - Chemistry and C hemistry - challengeOrdered By: Sebastian Braswell on 03-29-2025 AST [Catalytic activity/Vol] 54 U/L High <38 [facility] Lipaseon 03-29-2025 Lipase [Catalytic activity/Vol] 24 U/L Normal 13-75 [facility] Comment on above: Result Comment: Plea se note: LIPASE revised reference range effective 23. New Lipase methodology. Expected to produce lower values than the previous assay method. NEW Reference Range: 13 - 75 U/L Performed By: #### L 500.4050, L100.0100, L501.2450 ####[facility] [address] [place], [address] Lipase measurementOrdered By : Sebastian Braswell on 03-29-2025 Lipase [Catalytic activity/Vol] 24 U/L 13-75 [facility] Comment on above: Please note:LIPASE r evised reference range effective 23. New Lipase methodology. Expected to produce lower values than the previous assay method. NEW Reference Range: 13 - 75 U/L MCV (mean corpuscular volume ) determinationOrdered By: Sebastian Braswell on 03-29-2025 MCV (RBC) [Entitic vol] 92.8 fL 80-94 [facility] Mean corpuscular hemoglobin (MCH) determinationOrdered By: Sebastian Braswell on 03-29-2025 MCH (RBC) [Entitic mass] 31.0 pg 27.0-32.0 [facility] Mean corpuscular hemoglobin concentration (MCHC) determinationOrdered By: Sebastian Braswell on 03-29-2025 MCHC (RBC) [Mass/Vol] 33.4 g/dL 32-36 [facility] Mean platelet volume determi nationOrdered By: Sebastian Braswell on 03-29-2025 Platelet mean volume (Bld) [Entitic vol] 9.5 fL 6.2-12.0 [facility] Monocyte percentageOrdered B y: Sebastian Braswell on 03-29-2025 Monocytes/100 WBC (Bld) 7.3 % 0-10 [facility] Neutrophil percentageOrdered By: Sebastian Braswell on 03-29-2025 Neutrophils/100 WBC (Bld) 59.0 % 47-70 [facility] Nucleated red blood cell per centageOrdered By: Sebastian Braswell on 03-29-2025 Nucleated RBC/100 WBC (Bld) [Ratio] 0 % 0-5 [facility] Platelet countOrdered By: Jesus Manuel Braswell on 03-29-2025 Platelets (Bld) [#/Vol] 338 10*3/uL 150-450 [facility] Potassium measurement (mass/ volume)Ordered By: Sebastian Braswell on 03-29-2025 Potassium (Unsp spec) [Mass/Vol] 3.5 mmol/L 3.3-5.1 [facility] RBC Auto (Bld) [#/Vol]Ordere d By: Sebastian Braswell on 03-29-2025 RBC (Bld) [#/Vol] 4.19 10*6/uL Low 4.6-6.2 [facility] Serum creatinine measurement (mass/volume)Ordered By: Sebastian Braswell on 03-29-2025 Creatinine [Mass/Vol] 1.01 mg/dL 0.70-1.20 [facility] Serum globulin measurementOr dered By: Sebastian Braswell on 03-29-2025 Globulin (S) [Mass/Vol] 3.2 g/dL 2.2-4.2 [facility] Serum glucose measurement (m ass/volume)Ordered By: Sebastian Braswell on 03-29-2025 Glucose [Mass/Vol] 244 mg/dL High 70-99 [facility] Serum or plasma alanine love otransferase (ALT) measurementOrdered By: Sebastian Braswell on 03-29-2025 ALT [Catalytic activity/Vol] 86 U/L High <47 [facility] Serum or plasma albumin micah urement (mass/volume)Ordered By: Sebastian Braswell on 03-29-2025 Albumin [Mass/Vol] 4.4 g/dL 3.5-5.0 [facility] Serum or plasma albumin/glob ulin mass ratioOrdered By: Sebastian Braswell on 03-29-2025 Albumin/Globulin [Mass ratio] 1.4 {ratio} 0.9-2.4 [facility] Serum or plasma alkaline jd sphatase measurementOrdered By: Sebastian Braswell on 03-29-2025 ALP [Catalytic activity/Vol] 55 U/L 40-129 [facility] Serum or plasma calcium micah urement (mass/volume)Ordered By: Sebastian Braswell on 03-29-2025 Calcium [Mass/Vol] 9.3 mg/dL 7.6-11.0 [facility] Serum or plasma urea nitroge n measurement (mass/volume)Ordered By: Sebastian Braswell on 03-29-2025 Urea nitrogen [Mass/Vol] 24 mg/dL High 4-19 [facility] Sodium levelOrdered By: David Braswell on 03-29-2025 Sodium [Moles/Vol] 141 mmol/L 133-145 [facility] Total proteinOrdered By: Bhumika Braswell on 03-29-2025 Protein [Mass/Vol] 7.7 g/dL 5.9-8.4 [facility] Troponin T.cardiac [Mass/vol ume] in Serum or Plasma by High sensitivity methodOrdered By: Sebastian Braswell on 03-29-2025 Troponin T.cardiac High sensitivity method [Mass/Vol] 7 ng/L <22 [facility] Troponin T.cardiac High sensitivity method [Mass/Vol] < 6 ng/L <22 [facility] Urinalysis, Completeon 03-29 BACTERIA Normal None Seen [facility] Comment on above: Order Comment: CLEAN CATCH Result Comment: DEP FROM ED Performed By: #### L 400.0001 #### [facility] [address] [place], [address] BILIRUBIN URINE Normal Negative [facility] Comment on above: Order Comment: CLEAN CATCH Result Comment: DEP FROM ED Performed By: #### L 400.0001 #### [facility] [address] [place], [address] Clarity (U) Normal Clear [facility] Comment on above: Order Comment: CLEAN CATCH Result Comment: DEP FROM ED Performed By: #### L 400.0001 #### [facility] [address] [place], [address] Color (U) Normal Yellow [facility] Comment on above: Order Comment: CLEAN CATCH Result Comment: DEP FROM ED Performed By: #### L 400.0001 #### [facility] [address] [place], [address] EPI,SQUAMOUS Normal 0-5 [facility] Comment on above: Order Comment: CLEAN CATCH Result Comment: DEP FROM ED Performed By: #### L 400.0001 #### [facility] [address] [place], [address] GLUCOSE, UR Normal Normal [facility] Comment on above: Order Comment: CLEAN CATCH Result Comment: DEP FROM ED Performed By: #### L 400.0001 #### [facility] [address] [place], [address] KETONE UR Normal Negative [facility] Comment on above: Order Comment: CLEAN CATCH Result Comment: DEP FROM ED Performed By: #### L 400.0001 #### [facility] [address] [place], [address] LEUK ESTERASE Normal Negative [facility] Comment on above: Order Comment: CLEAN CATCH Result Comment: DEP FROM ED Performed By: #### L 400.0001 #### [facility] [address] [place], [address] Mucus Ql (Urine sed) Normal [facility] Comment on above: Order Comment: CLEAN CATCH Result Comment: DEP FROM ED Performed By: #### L 400.0001 #### [facility] [address] [place], [address] Nitrite Ql (U) Normal Negative [facility] Comment on above: Order Comment: CLEAN CATCH Result Comment: DEP FROM ED Performed By: #### L 400.0001 #### [facility] [address] [place], [address] OCCULT BLOOD-UR Normal Negative [facility] Comment on above: Order Comment: CLEAN CATCH Result Comment: DEP FROM ED Performed By: #### L 400.0001 #### [facility] [address] [place], [address] pH UR Normal 5.0 - 8.0 [facility] Comment on above: Order Comment: CLEAN CATCH Result Comment: DEP FROM ED Performed By: #### L 400.0001 #### [facility] [address] [place], [address] PROT DIPSTX Normal Negative [facility] Comment on above: Order Comment: CLEAN CATCH Result Comment: DEP FROM ED Performed By: #### L 400.0001 #### [facility] [address] [place], [address] RBC Normal 0-5 [facility] Comment on above: Order Comment: CLEAN CATCH Result Comment: DEP FROM ED Performed By: #### L 400.0001 #### [facility] [address] [place], [address] SP.GR. DIPSTX Normal 1.002-1.030 [facility] Comment on above: Order Comment: CLEAN CATCH Result Comment: DEP FROM ED Performed By: #### L 400.0001 #### [facility] [address] [place], [address] UR Preservative Normal [facility] Comment on above: Order Comment: CLEAN CATCH Result Comment: DEP FROM ED Performed By: #### L 400.0001 #### [facility] [address] [place], [address] UROBILI Normal Normal [facility] Comment on above: Order Comment: CLEAN CATCH Result Comment: DEP FROM ED Performed By: #### L 400.0001 #### [facility] [address] [place], [address] WBC Normal 0-5 [facility] Comment on above: Order Comment: CLEAN CATCH Result Comment: DEP FROM ED Performed By: #### L 400.0001 #### [facility] [address] [place], [address] White blood cell (WBC) count Ordered By: Sebastian Braswell on 03-29-2025 WBC (Bld) [#/Vol] 7.1 10*3/uL 4.4-11.0 [facility] CNCOon 02-03-2025 CNCO Letter Text Normal [facility] Chest PA and Lateralon 01-19 Chest PA and Lateral [facility] Imaging Services [address] [place] [address] Chest PA and Lateral MR#: [id number] Acct: [id number] Name: MICHAEL MCNEILL SANTOS Rep #: [id number] : 1975 M 49 From: Liset Stanton nd, MD PCP: Care Physician,No Primary Status: REG ER Study: Chest PA and Lateral Date of Exam: 01/19/25 Exam# [id number] Ordering Dr: Yee Jaffe PROCEDURE: CHEST PA [...] CHANGE SINCE THE PRIOR EXAM. Reading Location: [id number] CC: MALIA Moctezuma; No Primary Care Physician Green Belt: Signed Normal [facility] Emergency Department Summary on 01-19-2025 Emergency Department Summary [facility] Medical Records Department [address] [place] [address] Emergency Department Summary 01/19/25 MR#: [id number] Acct: [id number] Name: MICHAEL MCNEILL SANTOS Rep #: [id number] : 1975 49 From: Yee FINLEY PCP: [...] of blood clots or recent surgery/travel/immobili zation. [facility] Medical History ETOH abuse Methamphetamine abuse Asthma [...] 1 - 2 puff inhalation Q4H PRN VT N 12/13/24 Unknown Rx aerosol inhaler (Ventolin HFA) Wheezing #1 ea prednisone 20 mg tablet 40 mg (2 x 20 mg) PO DAILY #10 tab s 12/13/24 Unknown Rx albuterol sulfate 90 mcg/actuation 1 - 2 puff inhalation Q4H PRN VT N 01/19/25 Unknown Rx aerosol inhaler (Ventolin [...] 15:32 Tempera (more content not included)... Normal [facility] Chest PA and Lateralon 12-13 Chest PA and Lateral [facility] Imaging Services [address] [place], [place] [address] Chest PA and Lateral MR#: [id number] Acct: [id number] Name: MICHAEL MCNEILL SANTOS Rep #: [id number] : 1975 M 49 From: Juan Daniel hampton MD PCP: Care Physician,No Primary Status: REG ER Study: Chest PA and Lateral Date of Exam: 12/13/24 Exam# [id number] Ordering Dr: Homar Nieves MD PROCEDURE: CHEST [...] Correlation with CT recommended. Reading Location: [facility] CC: Dr. Homar Nieves MD; No Primary Care Physician Green [place]: Signed Normal [facility] Emergency Department Summary on 12-13-2024 Emergency Department Summary [facility] Medical Records Department [address] [place] [address] Emergency Department Summary 12/13/24 MR#: [id number] Acct: [id number] Name: MARKELLMICHAEL APARICIO SANTOS Rep #: [id number] : 1975 49 From: Homar Nieves MD [...] 2 weeks of cough if not longer. [facility] Medical History ETOH abuse Methamphetamine abuse Asthma [...] 1 - 2 puff inhalation Q4H PRN VT N 12/13/24 Unknown Rx aerosol inhaler (Ventolin [...] anxiety and (more content not included)... Normal [facility] Emergency Department Summary on 12-04-2024 Emergency Department Summary [facility] Medical Records Department [address] [place] [address] Emergency Department Summary 12/04/24 MR#: [id number] Acct: [id number] Name: MICHAEL MCNEILL Rep #: [id number] : 1975 49 From: Jluius Matthews DO PCP: Care Physician,No Primary Status:DEP ER Location: ED HPI History of Present Illness Chief Complaint: Abscess PFSH [facility] Medical History ETOH abuse Methamphetamine abuse Asthma [...] Care Provider: Care Physician,No Primary Print Language: Finnish Disposition Disposition: LEFT WITHOUT BEING SEEN Discharge Date/Time: 12/04/24 20:20 What to do if you have Problems For any increased pain, shortness of breath, bleeding, nausea or vomiting, chest pain, or any unexpected problems, contact your Primary Care Provider. Call [facility] ([phone]) or report to the closest Emergency Room. Call 911 if necessary. 12/04/24 3456 Cosigner Signature (if applicable): CC: No Primary Care Physician Signed Normal [facility] 12 Lead EKGon 2024 12 Lead EKG [facility] Cardiovascular Services [address] [place] [address] 12 Lead EKG 11/27/24 1428 MR#: [id number] Acct: [id number] Name: MICHAEL MCNEILL SANTOS Rep #: [id number] : 1975 49 From: Peña Martinez MD Attending Dr: Status: DEP ER Ordering Dr: Lacho Joy DO Date: 02/26/2 5 Location: ED Sex: M C Admitted: [...] PACS Normal ECG Confirmed by Peña Martinez ([id number]), editor in chief newspaper PEBBLES FELICIANO ([id number]) on 11/28/2024 9:34:41 AM Referred By: Lacho Joy Confirmed By: Peña Martinez 11/28/24 0934 Date Peña Martinez MD CC: Dr. Lacho Joy, DO; No Primary Care Physician Signed Normal [facility] Absolute neutrophil countOrd ered By: Lacho Joy on 2024 Neutrophils (Bld) [#/Vol] 7.9 10*3/uL High 2.0-7.7 [facility] BUN/creatinine ratioOrdered By: Lacho Joy on 2024 Urea nitrogen/Creatinine [Mass ratio] 32.6 mg/mg High - [facility] Basic Metabolic Profile (BMP )on 2024 Anion gap [Moles/Vol] 10 mmol/L Normal 5-15 [facility] Comment on above: Performed By: #### L 501.9985 #### [facility] Laboratory [address] [place], [place], [id number] BUN/CRE 32.6 RATIO High 07-21 [facility] Comment on above: Performed By: #### L 501.9985 #### [facility] [address] [facility] [place], [place], [address] Calcium [Mass/Vol] 9.1 mg/dL Normal 7.6-11.0 [facility] Comment on above: Performed By: #### L 501.9985 #### [facility] Laboratory [address] [place], [address] Chloride [Moles/Vol] 102 mmol/L Normal 96-108 [facility] Comment on above: Performed By: #### L 501.9985 #### [facility] [address] [place], [address] CO2 [Moles/Vol] 26.2 mmol/L Normal 22.0-29.0 [facility] Comment on above: Performed By: #### L 501.9985 #### [facility] [address] [place], [address] Creatinine [Mass/Vol] 0.6 mg/dL Low 0.8-1.3 [facility] Comment on above: Performed By: #### L 501.9985 #### [facility] [address] [place], [address] ECRCL 119.44 ml/min Normal [facility] Comment on above: Performed By: #### L 501.9985 #### [facility] [address] [place], [address] GFR/1.73 sq M.predicted among non-blacks MDRD (S/P/Bld) [Vol rate/Area] 116 mL/min/{1.73_m2} Normal >60 [facility] Comment on above: Result Comment: mL/m in/1.73m2 CKD-EPI Creatinine Equation (2020) Performed By: #### L 501.9985 #### [facility] [address] [place], [address] Glucose [Mass/Vol] 99 mg/dL Normal 70-99 [facility] Comment on above: Performed By: #### L 501.9985 #### [facility] [address] [place], [address] Potassium [Moles/Vol] 4.0 mmol/L Normal 3.3-5.1 [facility] Comment on above: Performed By: #### L 501.9985 #### [facility] [address] [place], [address] Sodium [Moles/Vol] 138 mmol/L Normal 133-145 [facility] Comment on above: Performed By: #### L 501.9985 #### [facility] [address] [place], [address] Urea nitrogen [Mass/Vol] 21 mg/dL High 4-19 [facility] Comment on above: Performed By: #### L 501.9985 #### [facility] [address] [place], [address] Basophil percentageOrdered B y: Lacho Joy on 2024 Basophils/100 WBC (Bld) 0.5 % 0-1 [facility] CBC W/Diff, Automatedon 11-03 Absolute Lymph 1.53 X10 3/uL Normal 0.83-4.51 [facility] Comment on above: Performed By: #### L 501.9985 #### [facility] [address] [place], [address] Absolute Neut 7.9 X10 3/uL High 2.0-7.7 [facility] Comment on above: Performed By: #### L 501.9985 #### [facility] [address] [place], [address] Basophils/100 WBC (Bld) 0.5 % Normal 0-1 [facility] Comment on above: Performed By: #### L 501.9985 #### [facility] [address] [place], [address] Eosinophils/100 WBC (Bld) 3.9 % Normal 0-5 [facility] Comment on above: Performed By: #### L 501.9985 #### [facility] [address] [place], [address] Erythrocyte distribution width (RBC) [Ratio] 13.0 % Normal 11.6-14.6 [facility] Comment on above: Performed By: #### L 501.9985 #### [facility] [address] [place], [address] Hematocrit (Bld) [Volume fraction] 43.0 % Normal 40-54 [facility] Comment on above: Performed By: #### L 501.9985 #### [facility] [address] [place], [address] Hemoglobin (Bld) [Mass/Vol] 14.4 g/dL Normal 13.0-16.5 [facility] Comment on above: Performed By: #### L 501.9985 #### [facility] [address] [place], [address] IG% 0.500 Normal 0.0-0.9 [facility] Comment on above: Result Comment: IG% - Immature Granulocytes (promyelocytes, myelocytes and metamyelocytes) > 1% indicates that a LEFT SHIFT is Present. Performed By: #### L 501.9985 #### [facility] [address], [address] Lymphocytes/100 WBC (Bld) 14.5 % Low 19-41 [facility] Comment on above: Performed By: #### L 501.9985 #### [facility] [address] [place], [address] MCH (RBC) [Entitic mass] 32.1 pg High 27.0-32.0 [facility] Comment on above: Performed By: #### L 501.9985 #### [facility] [address] [place], [address] MCHC (RBC) [Mass/Vol] 33.5 g/dL Normal 32-36 [facility] Comment on above: Performed By: #### L 501.9985 #### [facility] [address] [place], [address] MCV (RBC) [Entitic vol] 96.0 fL High 80-94 [facility] Comment on above: Performed By: #### L 501.9985 #### [facility] [address] [place], [address] Monocytes/100 WBC (Bld) 6.4 % Normal 0-10 [facility] Comment on above: Performed By: #### L 501.9985 #### [facility] [address] [place], [address] Neutrophils/100 WBC (Bld) 74.2 % High 47-70 [facility] Comment on above: Performed By: #### L 501.9985 #### [facility] [facility] [address] [place], [address] Nucleated RBC (Bld) [#/Vol] 0 10*3/uL Normal 0-5 [facility] Comment on above: Performed By: #### L 501.9985 #### [facility] [address] [place], [address] Platelet mean volume (Bld) [Entitic vol] 9.3 fL Normal 6.2-12.0 [facility] Comment on above: Performed By: #### L 501.9985 #### [facility] [address] [place], [address] Platelets (Bld) [#/Vol] 323 10*3/uL Normal 150-450 [facility] Comment on above: Performed By: #### L [id number] #### [facility] [address] [place], [address] RBC (Bld) [#/Vol] 4.48 10*6/uL Low 4.6-6.2 [facility] Comment on above: Performed By: #### L [id number] #### [facility] [address] [place], [address] RDW SD 45.7 fl High 35.1-43.9 [facility] Comment on above: Performed By: #### L [id number] #### [facility] [address] [place], [address] WBC (Bld) [#/Vol] 10.6 10*3/uL Normal 4.4-11.0 [facility] Comment on above: Performed By: #### L [id number] #### [facility] [address] [facility] [place], [address] Carbon dioxide measurementOr dered By: Lacho Jyo on 2024 CO2 [Moles/Vol] 26.2 mmol/L 22.0-29.0 [facility] Chest PA and Lateralon 11-27 Chest PA and Lateral [facility] Imaging Services [address] [place] [address] Chest PA and Lateral MR#: [id number] Acct: [id number] Name: MICHAEL MCNEILL SANTOS Rep #: [id number] : 1975 M 49 From: Maylin adkins MD PCP: Care Physician,No Primary Status: [facility] ER Study: Chest PA and Lateral Date of Exam: 11/27/24 Exam# [id number] Ordering Dr: Lacho Joy DO PROCEDURE: CHEST [...] resolution to exclude a mass. Reading Location: COUNT INCLUDES [facility] CC: Dr. Lacho Joy, DO; No Primary Care Physician [place]: Signed Normal [facility] Chloride measurementOrdered By: Lacho Joy on 2024 Chloride [Moles/Vol] 102 mmol/L 96-108 [facility] Creatinine [Moles/Vol]Ordere d By: Lacho Joy on 2024 Creatinine [Mass/Vol] 0.6 mg/dL Low 0.8-1.3 [facility] Emergency Department Summary on 2024 Emergency Department Summary [facility] Medical Records Department [address] [place] [address] Emergency Department Summary 11/27/24 MR#: [id number] Acct: [id number] Name: MICHAEL MCNEILL SANTOS Rep #: [id number] : 1975 49 From: Lacho Joy DO [...] intact Psych: Cooperative, appropriate mood and affect [facility] Medical History ETOH abuse Methamphetamine abuse Asthma [...] Delivery M (more content not included)... Normal [facility] Eosinophil percentageOrdered By: Lacho Joy on 2024 Eosinophils/100 WBC (Bld) 3.9 % 0-5 [facility] Erythrocyte distribution wid th ratioOrdered By: Lacho Joy on 2024 Erythrocyte distribution width (RBC) [Ratio] 13.0 % 11.6-14.6 [facility] Erythrocyte distribution wid th standard deviationOrdered By: Lacho Henderson on 2024 Erythrocyte distribution width (RBC) [Entitic vol] 45.7 fL High 35.1-43.9 [facility] Estimation of creatinine akbar aranceOrdered By: Lacho Joy on 2024 Estimated Creatinine Clearance Calc 119.44 ml/min [facility] GFR/1.73 sq M.predicted gertrude g non-blacks MDRD (S/P/Bld) [Vol rate/Area]Ordered By: Lacho Joy on 2024 Estimated GFR (MDRD) Non-Af Amer 116 >60 [facility] Comment on above: mL/min/1.73m2 CKD-EP I Creatinine Equation (2020) Hematocrit Auto (Bld) [Volum e fraction]Ordered By: Lacho Joy on 2024 Hematocrit (Bld) [Volume fraction] 43.0 % 40-54 [facility] Hemoglobin measurementOrdere d By: Lacho Joy on 2024 Hemoglobin (Bld) [Mass/Vol] 14.4 g/dL 13.0-16.5 [facility] Immature granulocytes/100 WB C Auto (Bld)Ordered By: Lacho Joy on 2024 Immature granulocytes/100 WBC (Bld) 0.500 % 0.0-0.9 [facility] Comment on above: IG% - Immature Granu locytes (promyelocytes, myelocytes and metamyelocytes) > 1% indicates that a LEFT SHIFT is Present. Influenza virus A and B and SARS-CoV-2 (COVID-19) and Respiratory syncytial virus RNAOrdered By: Lacho Joy on 2024 SARS-CoV-2 (COVID-19) RNA WES+probe Ql (Unsp spec) [facility] Lymphocytes Auto (Unsp spec) [#/Vol]Ordered By: Lacho Joy on 2024 Lymphocytes (Bld) [#/Vol] 1.53 10*3/uL 0.83-4.51 [facility] Lymphocytes/100 WBC Auto (Un sp spec)Ordered By: [facility] on 20[facility] Lymphocytes/100 WBC (Bld) 14.5 % Low 19-41 [facility] M100.678on 2024 M100.678 SARS-CoV-2 (COVID 19 ) Negative INFLUENZA A Negative INFLUENZA B Negative RSV PCR Negative Normal [facility] Comment on above: Performed By: #### L [id number] #### [facility] [address] [place], [place] [address], [address] MCV (mean corpuscular volume ) determinationOrdered By: Lacho Joy on 2024 MCV (RBC) [Entitic vol] 96.0 fL High 80-94 [facility] Mean corpuscular hemoglobin (MCH) determinationOrdered By: Lacho Joy on 2024 MCH (RBC) [Entitic mass] 32.1 pg High 27.0-32.0 [facility] Mean corpuscular hemoglobin concentration (MCHC) determinationOrdered By: Lacho Joy on 2024 MCHC (RBC) [Mass/Vol] 33.5 g/dL 32-36 [facility] Mean platelet volume determi nationOrdered By: Lacho Joy on 2024 Platelet mean volume (Bld) [Entitic vol] 9.3 fL 6.2-12.0 [facility] Monocyte percentageOrdered B y: Lacho Joy on 2024 Monocytes/100 WBC (Bld) 6.4 % 0-10 [facility] Neutrophil percentageOrdered By: Lacho Joy on 2024 Neutrophils/100 WBC (Bld) 74.2 % High 47-70 [facility] Nucleated red blood cell per centageOrdered By: Lacho Joy on 2024 Nucleated RBC/100 WBC (Bld) [Ratio] 0 % 0-5 [facility] Platelet countOrdered By: Wes Joy on 2024 Platelets (Bld) [#/Vol] 323 10*3/uL 150-450 [facility] RBC Auto (Bld) [#/Vol]Ordere d By: Lacho Joy on 2024 RBC (Bld) [#/Vol] 4.48 10*6/uL Low 4.6-6.2 [facility] Serum glucose measurement (m ass/volume)Ordered By: Lacho Joy on 2024 Glucose [Mass/Vol] 99 mg/dL 70-99 [facility] Serum or plasma anion gap de termination (moles/volume)Ordered By: Lacho Benita on 2024 Anion gap [Moles/Vol] 10 mmol/L 5-15 [facility] Serum or plasma calcium micah urement (mass/volume)Ordered By: Lacho joshua Henderson on 2024 Calcium [Mass/Vol] 9.1 mg/dL 7.6-11.0 [facility] Serum or plasma potassium me asurementOrdered By: [facility]rid[facility] on 2024 Potassium [Moles/Vol] 4.0 mmol/L 3.3-5.1 [facility] Serum or plasma sodium measu rement (moles/volume)Ordered By: [place] Ralph Henderson on 2024 Sodium [Moles/Vol] 138 mmol/L 133-145 [facility] Serum or plasma urea nitroge n measurement (mass/volume)Ordered By: Lacho Benita on 2024 Urea nitrogen [Mass/Vol] 21 mg/dL High 4-19 [facility] White blood cell (WBC) count Ordered By: [facility] on 2024 WBC (Bld) [#/Vol] 10.6 10*3/uL 4.4-11.0 [facility] Emergency Department Summary on 11-20-2024 Emergency Department Summary [facility] Medical Records Department [address] [place] [address] Emergency Department Summary 11/20/24 MR#: [id number] Acct: [id number] Name: MICHAEL MCNEILL SANTOS Rep #: [id number] : 1975 48 From: Graham Messina DO [...] shortness of breath. Patient denies any cough. [facility] Medical History ETOH abuse Methamphetamine abuse [...] narrative: Pat (more content not included)... Normal [facility] Absolute neutrophil countOrd ered By: Trang Valencia on 11-12-2024 Neutrophils (Bld) [#/Vol] 7.1 10*3/uL 2.0-7.7 [facility] Albumin to globulin ratioOrd ered By: Trang Valencia on 11-12-2024 Albumin/Globulin [Mass ratio] 1.0 {ratio} Normal 0.9-2.4 [facility] Comment on above: Performed By: #### L 501.4021 #### [facility] [address] [place], [address] Automated blood erythrocyte countOrdered By: Trang Valencia on 11-12-2024 RBC (Bld) [#/Vol] 3.83 10*6/uL Low 4.6-6.2 [facility] Comment on above: Performed By: #### L [id number] #### [facility] [address] [place], [address] Automated blood hematocrit ( percentage)Ordered By: Trang Valencia on 11-12-2024 Hematocrit (Bld) [Volume fraction] 35.6 % Low 40-54 [facility] Comment on above: Performed By: #### L 501.9985 #### [facility] [address] [place], [address] Automated lymphocyte count a s percentage of total leukocytesOrdered By: Trang Valencia on 11-12-2024 Lymphocytes/100 WBC (Bld) 3.5 % Low 19-41 [facility] Comment on above: Performed By: #### L [id number] #### [facility] [address] [place], [address] Basophil percentageOrdered B y: Trang Valencia on 11-12-2024 Basophils/100 WBC (Bld) 0.1 % Normal 0-1 [facility] Comment on above: Performed By: #### L 501.9985 #### [facility] [address] [place], [address] Bilirubin, totalOrdered By: Trang Valencia on 11-12-2024 Bilirubin [Mass/Vol] 0.30 mg/dL Normal 0.20-1.00 [facility] Comment on above: For patients on eltr ombopag therapy, use of Dimension Rincon TBIL is not recommended. Result Comment: For patients on eltrombopag therapy, use of Dimension Rincon TBIL is not recommended. Performed By: #### L 501.4021 #### [facility] [address] [place], [address] Blood urea nitrogen (BUN)/cr eatinine ratioOrdered By: Trang Valencia on 11-12-2024 Urea nitrogen/Creatinine [Mass ratio] 28.2 mg/mg High 10-20 [facility] CBC W/Diff, Automatedon 11-02 Absolute Lymph 0.26 X10 3/uL Low 0.83-4.51 [facility] Comment on above: Performed By: #### L 501.9985 #### [facility] [address] [place], [address] Absolute Neut 7.1 X10 3/uL Normal 2.0-7.7 [facility] Comment on above: Performed By: #### L 501.9985 #### [facility] [address] [place], [address] IG% 0.400 Normal 0.0-0.9 [facility] Comment on above: Result Comment: IG% - Immature Granulocytes (promyelocytes, myelocytes and metamyelocytes) > 1% indicates that a LEFT SHIFT is Present. Performed By: #### L 501.9985 #### [facility] [address] [place], [address] Nucleated RBC (Bld) [#/Vol] 0 10*3/uL Normal 0-5 [facility] Comment on above: Performed By: #### L 501.9985 #### [facility] [address] [place], [address] RDW SD 45.3 fl High 35.1-43.9 [facility] Comment on above: Performed By: #### L 501.9985 #### [facility] [address] [place], [address] Carbon dioxide measurementOr dered By: Trang Valencia on 11-12-2024 CO2 [Moles/Vol] 25.0 mmol/L Normal 21.0-32.0 [facility] Comment on above: Performed By: #### L [id number] #### [facility] [address] [place], [address] Chloride measurementOrdered By: Trang Valencia on 11-12-2024 Chloride [Moles/Vol] 106 mmol/L Normal 98-107 [facility] Comment on above: Performed By: #### L [id number] #### [facility] [address] [place], [address] Comprehensive Metabolic Prof ilon 11-12-2024 ALK P 41 U/L Low 45-117 [facility] Comment on above: Performed By: #### L [id number] #### [facility] [address] [place], [address] BUN/CRE 28.2 RATIO High 10-20 [facility] Comment on above: Performed By: #### L [id number] #### [facility] [address] [place], [address] CA,Total 8.8 mg/dL Normal 8.5-10.1 [facility] Comment on above: Performed By: #### L [id number] #### [facility] [address] [place], [address] ECRCL 91.57 ml/min Normal [facility] Comment on above: Performed By: #### L 501.4021 #### [facility] [address] [place], [address] EST GFR - AA 136 mL/min Normal >60 [facility] Comment on above: Result Comment: Afri can Egyptian GFR Calc Performed By: #### L 501.4021 #### [facility] [address] [place], [address] GAP 8 Normal 5-15 [facility] Comment on above: Performed By: #### L [id number] #### [facility] [address] [place], [address] GFR/1.73 sq M.predicted among non-blacks MDRD (S/P/Bld) [Vol rate/Area] 112 mL/min/{1.73_m2} Normal >60 [facility] Comment on above: Result Comment: Non- GFR Calc Performed By: #### L 501.4021 #### [facility] [address] [place], [address] T PROT 6.4 g/dL Normal 6.4-8.2 [facility] Comment on above: Performed By: #### L [id number] #### [facility] [address] [place], [address] Comprehensive Metabolic Prof ilOrdered By: Trang Valencia on 11-12-2024 AST [Catalytic activity/Vol] 18 U/L Normal 15-37 [facility] Comment on above: Performed By: #### L [id number] #### [facility] [address] [place], [address] Eosinophil percentageOrdered By: Trang Valencia on 11-12-2024 Eosinophils/100 WBC (Bld) 0.0 % Normal 0-5 [facility] Comment on above: Performed By: #### L 501.9985 #### [facility] [address] [place], [address] Erythrocyte distribution wid th ratioOrdered By: Trang Valencia on 11-12-2024 Erythrocyte distribution width (RBC) [Ratio] 13.3 % Normal 11.6-14.6 [facility] Comment on above: Performed By: #### L 501.9985 #### [facility] [address] [place], [address] Erythrocyte distribution wid th standard deviationOrdered By: Trang Valencia on 11-12-2024 Erythrocyte distribution width (RBC) [Entitic vol] 45.3 fL High 35.1-43.9 [facility] Estimated glomerular filtrat ion rate (GFR) AmericanOrdered By: Trang Valencia on 11-12-2024 Estimated GFR (MDRD) Amer 136 mL/min >60 [facility] Comment on above: GFR Calc Estimation of creatinine akbar aranceOrdered By: Trang Valencia on 11-12-2024 Estimated Creatinine Clearance Calc 91.57 ml/min [facility] Glomerular filtration rate ( GFR) estimationOrdered By: Trang Valencia on 11-12-2024 Estimated GFR (MDRD) Non-Af Amer 112 mL/min >60 [facility] Comment on above: Non- GFR Calc Glucose measurementOrdered B y: Trang Valencia on 11-12-2024 Glucose [Mass/Vol] 197 mg/dL High 74-106 [facility] Comment on above: Fasting Glucose resu lt greater than or equal to 126 mg/dL suggests DIABETES MELLITUS per A.D.A. criteria. Result Comment: Fast ing Glucose result greater than or equal to 126 mg/dL suggests DIABETES MELLITUS per A.D.A. criteria. Performed By: #### L 501.4021 #### [facility] [address] [place], [place], [id number] Hemoglobin measurementOrdere d By: Trang Valencia on 11-12-2024 Hemoglobin (Bld) [Mass/Vol] 12.2 g/dL Low 13.0-16.5 [facility] Comment on above: Performed By: #### L 501.9985 #### [facility] [address] [place], [place], [address] Immature granulocytes/100 WB C Auto (Bld)Ordered By: Trang Valencia on 11-12-2024 Immature granulocytes/100 WBC (Bld) 0.400 % 0.0-0.9 [facility] Comment on above: IG% - Immature Granu locytes (promyelocytes, myelocytes and metamyelocytes) > 1% indicates that a LEFT SHIFT is Present. Lymphocytes Auto (Unsp spec) [#/Vol]Ordered By: Trang Valencia on 11-12-2024 Lymphocytes (Bld) [#/Vol] 0.26 10*3/uL Low 0.83-4.51 [facility] MCV (mean corpuscular volume ) determinationOrdered By: Trang Valencia on 11-12-2024 MCV (RBC) [Entitic vol] 93.0 fL Normal 80-94 [facility] Comment on above: Performed By: #### L 501.9938 #### [facility] [address] [place], [address] Magnesium measurementOrdered By: Trang Valencia on 11-12-2024 Magnesium [Mass/Vol] 2.1 mg/dL Normal 1.6-2.6 [facility] Comment on above: Performed By: #### L 501.4021 #### [facility] [address] [place], [address] Mean corpuscular hemoglobin (MCH) determinationOrdered By: Trang Valencia on 11-12-2024 MCH (RBC) [Entitic mass] 31.9 pg Normal 27.0-32.0 [facility] Comment on above: Performed By: #### L 501.9985 #### [facility] [address] [place], [address] Mean corpuscular hemoglobin concentration (MCHC) determinationOrdered By: Trang Valencia on 11-12-2024 MCHC (RBC) [Mass/Vol] 34.3 g/dL Normal 32-36 [facility] Comment on above: Performed By: #### L 501.9985 #### [facility] [address] [place], [address] Mean platelet volume determi nationOrdered By: Trang Valencia on 11-12-2024 Platelet mean volume (Bld) [Entitic vol] 9.3 fL Normal 6.2-12.0 [facility] Comment on above: Performed By: #### L 501.9998 #### [facility] [address] [place], [address] Monocyte percentageOrdered B y: Trang Valencia on 11-12-2024 Monocytes/100 WBC (Bld) 1.5 % Normal 0-10 [facility] Comment on above: Performed By: #### L 501.9985 #### [facility] [address] [place], [address] Neutrophil percentageOrdered By: Trang Valencia on 11-12-2024 Neutrophils/100 WBC (Bld) 94.5 % High 47-70 [facility] Comment on above: Performed By: #### L 501.9985 #### [facility] [address] [place], [address] Nucleated red blood cell per centageOrdered By: Trang Valencia on 11-12-2024 Nucleated RBC/100 WBC (Bld) [Ratio] 0 % 0-5 [facility] Phosphoruson 11-12-2024 Phosphate [Mass/Vol] 2.9 mg/dL Normal 2.5-4.9 [facility] Comment on above: Performed By: #### L 501.4021 #### [facility] [address] [place], [address] Phosphorus measurementOrdere d By: Trang Valencia on 11-12-2024 Phosphorus Level 2.9 mg/dL 2.5-4.9 [facility] Platelet countOrdered By: Denise Valencia on 11-12-2024 Platelets (Bld) [#/Vol] 267 10*3/uL Normal 150-450 [facility] Comment on above: Performed By: #### L 501.9985 #### [facility] [address] [place], [address] Potassium measurementOrdered By: Trang Valencia on 11-12-2024 Potassium [Moles/Vol] 3.9 mmol/L Normal 3.5-5.1 [facility] Comment on above: Performed By: #### L [id number] #### [facility] [address] [place], [place], [address] Serum anion gap measurementO rdered By: Trang Valencia on 11-12-2024 Anion gap [Moles/Vol] 8 mmol/L 5-15 [facility] Serum globulin measurementOr dered By: Trang Valencia on 11-12-2024 Globulin (S) [Mass/Vol] 3.2 g/dL Normal 2.2-4.2 [facility] Comment on above: Performed By: #### L 501.4021 #### [facility] [address] [place], [place], [id number] Serum or plasma alanine love otransferase (ALT) measurementOrdered By: Trang Valencia on 11-12-2024 ALT [Catalytic activity/Vol] 30 U/L Normal 16-61 [facility] Comment on above: Performed By: #### L [id number] #### [facility] [address] [facility] [place], [place], [address] Serum or plasma albumin micah urement (mass/volume)Ordered By: Trang Valencia on 11-12-2024 Albumin [Mass/Vol] 3.2 g/dL Normal 3.2-5.0 [facility] Comment on above: Performed By: #### L [id number] #### [facility] [address] [facility] [place], [place], [address] Serum or plasma alkaline jd sphatase measurementOrdered By: Trang Valencia on 11-12-2024 ALP [Catalytic activity/Vol] 41 U/L Low 45-117 [facility] Serum or plasma calcium micah urement (mass/volume)Ordered By: Trang Valencia on 11-12-2024 Calcium [Mass/Vol] 8.8 mg/dL 8.5-10.1 [facility] Serum or plasma creatinine m easurement (mass/volume)Ordered By: Trang Valencia on 11-12-2024 Creatinine [Mass/Vol] 0.78 mg/dL Normal 0.70-1.30 [facility] Comment on above: The validity of the calculated GFR & GFRAA in patients over 70 years has not been determined. Clinical correlation is essential. Result Comment: The validity of the calculated GFR GFRAA in patients over 70 years has not been determined. Clinical correlation is essential. Performed By: #### L 501.4021 #### [facility] [address] [facility], [address] Serum or plasma urea nitroge n measurement (mass/volume)Ordered By: Trang Valencia on 11-12-2024 Urea nitrogen [Mass/Vol] 22 mg/dL High 7-18 [facility] Comment on above: Performed By: #### L 501.4021 #### [facility] [address] [place], [address] Sodium levelOrdered By: Ema Valencia on 11-12-2024 Sodium [Moles/Vol] 139 mmol/L Normal 136-145 [facility] Comment on above: Performed By: #### L 501.4021 #### [facility] [address] [place], [address] Total proteinOrdered By: Dyana Valencia on 11-12-2024 Protein [Mass/Vol] 6.4 g/dL 6.4-8.2 [facility] White blood cell (WBC) count Ordered By: Trang Valencia on 11-12-2024 WBC (Bld) [#/Vol] 7.5 10*3/uL Normal 4.4-11.0 [facility] Comment on above: Performed By: #### L 501.9985 #### [facility] [address] [place], [address] 12 Lead EKGon 11-11-2024 12 Lead EKG [facility] Cardiovascular Services [address] [place] [address] 12 Lead EKG 11/11/24 1622 MR#: [id number] Acct: [id number] Name: MARKELLMICHAEL SANTOS Rep #: [id number] : 1975 48 From: Peña Martinez MD [...] enlargement Borderline ECG Confirmed by Peña Martinez ([id number]), editor in chief newspaper OM[employer] ROBLES ([id number]) on 11/12/2024 10:03:13 AM Referred By: Confirmed By: Peña Martinez 11/12/24 1003 Date Peña Martinez MD CC: Dr. Graham Tolbert DO; Dr. Remberto Bernal DO; No Primary Care Physician Signed Normal [facility] Arterial patency Wrist arter y --pre arterial punctureOrdered By: Remberto Bernal on 11-11-2024 Connie Test Positive [facility] Base excess Calc (BldV) [Mol es/Vol]Ordered By: Remberto Bernal on 11-11-2024 Blood Gas Base Excess 7 mmol/L High -2-2 [facility] Basic Metabolic Profile (BMP )on 11-11-2024 BUN/CRE 18.1 RATIO Normal 10-20 [facility] Comment on above: Performed By: #### L 501.9985 #### [facility] [address] [facility] [place], [place], [id number] CA,Total 9.2 mg/dL Normal 8.5-10.1 [facility] Comment on above: Performed By: #### L 501.9985 #### [facility] [address] [facility] [place], [place], [id number] Chloride [Moles/Vol] 102 mmol/L Normal 98-107 [facility] Comment on above: Performed By: #### L 501.9985 #### [facility] [address] [place], [address] CO2 [Moles/Vol] 32.0 mmol/L Normal 21.0-32.0 [facility] Comment on above: Performed By: #### L 846.9985 #### [facility] [address] [place], [address] Creatinine [Mass/Vol] 1.05 mg/dL Normal 0.70-1.30 [facility] Comment on above: Result Comment: The validity of the calculated GFR GFRAA in patients over 70 years has not been determined. Clinical correlation is essential. Performed By: #### L 330.9985 #### [facility] [address] [place], [address] ECRCL 70.10 ml/min Normal [facility] Comment on above: Performed By: #### L 410.9985 #### [facility] [address] [place], [address] EST GFR TNP Normal >60 [facility] Comment on above: Result Comment: Non- GFR Calc Performed By: #### L 399.9985 #### [facility] [address] [place], [address] EST GFR - AA TNP Normal >60 [facility] Comment on above: Result Comment: Afri can Egyptian GFR Calc Performed By: #### L 738.9985 #### [facility] [address] [place], [address] GAP 9 Normal 5-15 [facility] Comment on above: Performed By: #### L 990.9985 #### [facility] [address] [place], [address] Glucose [Mass/Vol] 202 mg/dL High 74-106 [facility] Comment on above: Result Comment: Gluc ose result greater than or equal to 200 mg/dL suggests DIABETES MELLITUS per A.D.A. criteria. Performed By: #### L 501.9985 #### [facility] [address] [place], [address] Potassium [Moles/Vol] 4.0 mmol/L Normal 3.5-5.1 [facility] Comment on above: Performed By: #### L 501.9985 #### [facility] [address] [place], [address] Sodium [Moles/Vol] 142 mmol/L Normal 136-145 [facility] Comment on above: Performed By: #### L 501.9985 #### [facility] [address] [place], [address] Urea nitrogen [Mass/Vol] 19 mg/dL High 7-18 [facility] Comment on above: Performed By: #### L 501.9985 #### [facility] [address] [place], [address] Blood Gases by [facility] 025 CONNIE TEST Positive Normal [facility] Comment on above: Performed By: #### L 9000.0800 #### [facility] [address] [place], [address] Base excess Calc (Bld) [Moles/Vol] 7 mmol/L High -2 to +2 [facility] Comment on above: Performed By: #### L 9000.0800 #### [facility] [address] [place], [address] Blood Gas Type ART Normal [facility] Comment on above: Performed By: #### L 9000.0800 #### [facility] [address] [place], [address] CO2 [Moles/Vol] 35 mmol/L Normal [facility] Comment on above: Performed By: #### L 9000.0800 #### [facility] [address] [place], [address] FI02 35.0 Normal [facility] Comment on above: Performed By: #### L 9000.0800 #### [facility] [address] [place], [address] HCO3 (Bld) [Moles/Vol] 32.9 mmol/L High 22-26 [facility] Comment on above: Performed By: #### L 9000.0800 #### [facility] [address] [place], [address] Mode Not entered Normal [facility] Comment on above: Performed By: #### L 9000.0800 #### [facility] [address] [place], [address] O2 Delivery Dev BiPAP Normal [facility] Comment on above: Performed By: #### L 9000.0800 #### [facility] [address] [place], [address] pCO2 65.3 mmHg High 35-45 [facility] Comment on above: Performed By: #### L 9000.0800 #### [facility] [address] [place], [address] PEEP 6 Normal [facility] Comment on above: Performed By: #### L 9000.0800 #### [facility] [address] [place], [address] pH (Bld) 7.31 [pH] Low 7.35-7.45 [facility] Comment on above: Performed By: #### L 9000.0800 #### [facility] [address] [place], [address] PO2 183 mmHG High 75-100 [facility] Comment on above: Performed By: #### L 9000.0800 #### [facility] [address] [place], [address] SITE L Radial Normal [facility] Comment on above: Performed By: #### L 9000.0800 #### [facility] [address] [place], [address] SO2 99 Normal 95-99 [facility] Comment on above: Performed By: #### L 9000.0800 #### [facility] [address] [place], [address] Blood bicarbonate measuremen tOrdered By: Remberto Bernal on 11-11-2024 Blood Gas Bicarbonate Actual 32.9 mmol/L High 22-26 [facility] CBC W/Diff, Automatedon 11-02 Absolute Lymph 2.64 X10 3/uL Normal 0.83-4.51 [facility] Comment on above: Performed By: #### L 501.9985 #### [facility] [address] [place], [address] Absolute Neut 7.7 X10 3/uL Normal 2.0-7.7 [facility] Comment on above: Performed By: #### L 501.9985 #### [facility] [address] [place], [address] Basophils/100 WBC (Bld) 0.8 % Normal 0-1 [facility] Comment on above: Performed By: #### L 501.9985 #### [facility] [address] [place], [address] Eosinophils/100 WBC (Bld) 2.9 % Normal 0-5 [facility] Comment on above: Performed By: #### L 501.9985 #### [facility] [address] [place], [address] Erythrocyte distribution width (RBC) [Ratio] 13.2 % Normal 11.6-14.6 [facility] Comment on above: Performed By: #### L 501.9985 #### [facility] [address] [place], [address] Hematocrit (Bld) [Volume fraction] 44.1 % Normal 40-54 [facility] Comment on above: Performed By: #### L 501.9985 #### [facility] [address] [place], [address] Hemoglobin (Bld) [Mass/Vol] 14.5 g/dL Normal 13.0-16.5 [facility] Comment on above: Performed By: #### L 501.9985 #### [facility] [address] [place], [address] IG% 0.300 Normal 0.0-0.9 [facility] Comment on above: Result Comment: IG% - Immature Granulocytes (promyelocytes, myelocytes and metamyelocytes) > 1% indicates that a LEFT SHIFT is Present. Performed By: #### L 501.9985 #### [facility] [address] [place], [address] Lymphocytes/100 WBC (Bld) 23.1 % Normal 19-41 [facility] Comment on above: Performed By: #### L 501.9985 #### [facility] [address] [facility] [place], [address] MCH (RBC) [Entitic mass] 31.5 pg Normal 27.0-32.0 [facility] Comment on above: Performed By: #### L 501.9985 #### [facility] [address] [place], [address] MCHC (RBC) [Mass/Vol] 32.9 g/dL Normal 32-36 [facility] Comment on above: Performed By: #### L 501.9985 #### [facility] [address] [place], [address] MCV (RBC) [Entitic vol] 95.7 fL High 80-94 [facility] Comment on above: Performed By: #### L 501.9985 #### [facility] [address] [place], [address] Monocytes/100 WBC (Bld) 5.6 % Normal 0-10 [facility] Comment on above: Performed By: #### L 501.9985 #### [facility] [address] [place], [address] Neutrophils/100 WBC (Bld) 67.3 % Normal 47-70 [facility] Comment on above: Performed By: #### L 501.9985 #### [facility] [address] [place], [address] Nucleated RBC (Bld) [#/Vol] 0 10*3/uL Normal 0-5 [facility] Comment on above: Performed By: #### L 501.9985 #### [facility] [address] [place], [address] Platelet mean volume (Bld) [Entitic vol] 9.2 fL Normal 6.2-12.0 [facility] Comment on above: Performed By: #### L 501.9985 #### [facility] [address] [place], [address] Platelets (Bld) [#/Vol] 400 10*3/uL Normal 150-450 [facility] Comment on above: Performed By: #### L 501.9985 #### [facility] [address] [place], [address] RBC (Bld) [#/Vol] 4.61 10*6/uL Normal 4.6-6.2 [facility] Comment on above: Performed By: #### L 501.9985 #### [facility] [address] [place], [address] RDW SD 46.2 fl High 35.1-43.9 [facility] Comment on above: Performed By: #### L 501.9985 #### [facility] [address] [place], [address] WBC (Bld) [#/Vol] 11.4 10*3/uL High 4.4-11.0 [facility] Comment on above: Performed By: #### L 501.9985 #### [facility] [address] [place], [address] Chest 1 View (Portable)on Chest 1 View (Portable) [facility] Imaging Services [address] [place] [address] Chest 1 View (Portable) MR#: [id number] Acct: [id number] Name: MICHAEL MCNEILL SANTOS Rep #: [id number] : 1975 M 48 From: Maylin adkins MD PCP: Care Physician,No Primary Status: DIS IN Study: Chest 1 View (Portable) Date of Exam: 11/11/24 Exam# [id number] Ordering Dr: Remberto Bernal DO PROCEDURE: CHEST [...] infiltrate. Right apical pleural-parenchymal disease. Reading Location: [id number] CC: Dr. Remberto Bernal DO; No Primary Care Physician [place]: Signed Normal [facility] Determination of fraction of inspired oxygenOrdered By: Remberto Bernal on 11-11-2024 Blood Gas Oxygen Percent 35.0 [facility] Emergency Department Summary on 11-11-2024 Emergency Department Summary [facility] Medical Records Department [address] [place] [address] Emergency Department Summary 11/11/24 MR#: [id number] Acct: [id number] Name: MICHAEL MCNEILL SANTOS Rep #: [id number] : 1975 48 From: Remberto Bernal DO PCP: Care Physician,No Primary Status:DIS IN Location: ICU [id number] HPI History of Present Illness Chief Complaint: [...] throughout GI (more content not included)... Normal [facility] H AND P Exam - Hospitaliston 11-11-2024 H&P Exam - Hospitalist [facility] Medical Records Department [address] [place] [address] H P Exam - Hospitalist 11/11/24 1715 MR#: [id number] Acct: [id number] Name: MICHAEL MCNEILL SANTOS Rep #: [id number] : 1975 48 From: Trang Valencia DO PCP: Care Physician,No Primary Status:DIS IN Location: ICU [id number] HPI - General General Date of Admission: 11/11/24 Date of Service: 11/11/24 Chief Complaint: Shortness of breath HPI Narrative Patient has been admitted here under a different medical record number please see for further information MICHAEL MCNEILL, is a 48 M who presented to the emergency department at [facility] on 11/11/2024 with a chief complaint [...] was treated with aerosols, BiPAP, and steroids. [facility] Medical History ETOH abuse Methamphetamine abuse Asthma [...] Inspired Oxygen (more content not included)... Normal [facility] Hemoglobin A1con 11-11-2024 HbA1c (Bld) [Mass fraction] 6.0 % High 3.8-5.6 [facility] Comment on above: Result Comment: Norm al < 5.7 % Prediabetic 5.7 - 6.4 % Diabetic >or= 6.5 % Please note range changes. Performed By: #### L 501.9985 #### [facility] [address] [place], [place], [id number] Hemoglobin A1c percentageOrd ered By: Trang Valencia on 11-11-2024 HbA1c (Bld) [Mass fraction] 6.0 % High 3.8-5.6 [facility] Comment on above: Normal < 5.7 % Predi abetic 5.7 - 6.4 % Diabetic >or= 6.5 % Please note range changes. Influenza virus A and B and SARS-CoV-2 (COVID-19) and Respiratory syncytial virus RNAOrdered By: Remberto Bernal on 11-11-2024 SARS-CoV-2 (COVID-19) RNA WES+probe Ql (Unsp spec) [facility] M100.678on 11-11-2024 M100.678 Pending SARS-CoV-2 (COVID 19) Negative INFLUENZA A Negative INFLUENZA B Negative RSV PCR Negative Normal [facility] Comment on above: Performed By: #### L 501.4021 #### [facility] [address] [place], [place], [address] No Panel InformationOrdered By: Remberto Bernal on 11-11-2024 Bedside Blood Gas PEEP 6 [facility] Blood Gas Sample Site L Radial [facility] Blood Gas Specimen Type ART [facility] Blood Gas Vent Mode Not entered [facility] Oxygen Delivery Device BiPAP [facility] Oxygen saturation measuremen tOrdered By: Remberto Bernal on 11-11-2024 Blood Gas Oxygen Saturation 99 % 95-99 [facility] Partial pressure of carbon d ioxide measurementOrdered By: Remberto Bernal on 11-11-2024 Arterial Blood Partial Pressure CO2 65.3 mmHg High 35-45 [facility] Partial pressure of oxygen m easurementOrdered By: Remberto Bernal on 11-11-2024 Arterial Blood Partial Pressure O2 183 mmHG High 75-100 [facility] RESPIRATORY PANEL MOLECULARo n 11-11-2024 RP PANEL ADENOVIRUS Not Detected INFLUENZA A Not Detected INFLUENZA A (SUBTYPE H1) Not Detected INFLUENZA A (SUBTYPE H3) Not Detected INFLUENZA B Not Detected HUMAN METAPHNEUMO Not Detected PARAINFLUENZA 1 Not Detected PARAINFLUENZA 2 Not Detected PARAINFLUENZA 3 Not Detected PARAINFLUENZA 4 Not Detected RHINOVIRUS Not Detected RSV A Not Detected RSV B Not Detected Normal [facility] Comment on above: Performed By: #### L 501.4021 #### [facility] [address] [place], [address] Respiratory pathogens DNA an d RNA panel WES+probe (Resp)Ordered By: Trang Valencia on 11-11-2024 Respiratory Panel (PCR) [facility] Total carbon dioxide measure mentOrdered By: Remberto Bernal on 11-11-2024 Blood Gas Total CO2 35 mmol/L [facility] pH (Unsp spec)Ordered By: Holli Bernal on 11-11-2024 Blood Gas pH 7.31 Low 7.35-7.45 [facility] Respiratory Cultureon 2024 RESPC Mixed normal respiratory [place]. No Streptococcus pneumoniae, beta-hemolytic Streptococcus or Staphylococcus aureus isolated. Normal [facility] Comment on above: Performed By: #### M 300.4600, M100.2000, M300.4500, M100.2400 ####[facility] [address] [place], [address] Absolute neutrophil countOrd ered By: Graham Tolbert on 10-23-2024 Neutrophils (Bld) [#/Vol] 11.4 10*3/uL High 2.0-7.7 [facility] Basic Metabolic Profile (BMP )on 10-23-2024 BUN/CRE 29.6 RATIO High 10-20 [facility] Comment on above: Performed By: #### L 501.9985 #### [facility] [address] [place], [address] CA,Total 9.3 mg/dL Normal 8.5-10.1 [facility] Comment on above: Performed By: #### L 501.9985 #### [facility] [address] [place], [address] Chloride [Moles/Vol] 105 mmol/L Normal 98-107 [facility] Comment on above: Performed By: #### L 501.9985 #### [facility] [address] [place], [address] CO2 [Moles/Vol] 28.0 mmol/L Normal 21.0-32.0 [facility] Comment on above: Performed By: #### L 501.9985 #### [facility] [address] [place], [address] Creatinine [Mass/Vol] 0.78 mg/dL Normal 0.70-1.30 [facility] Comment on above: Result Comment: The validity of the calculated GFR GFRAA in patients over 70 years has not been determined. Clinical correlation is essential. Performed By: #### L 501.9985 #### [facility] [address] [place], [address] ECRCL 90.10 ml/min Normal [facility] Comment on above: Performed By: #### L 501.9985 #### [facility] [address] [place], [address] EST GFR - AA 137 mL/min Normal >60 [facility] Comment on above: Result Comment: Afri can Egyptian GFR Calc Performed By: #### L 501.9985 #### [facility] [address] [place], [address] GAP 5 Normal 5-15 [facility] Comment on above: Performed By: #### L 501.9985 #### [facility] [address] [place], [address] GFR/1.73 sq M.predicted among non-blacks MDRD (S/P/Bld) [Vol rate/Area] 113 mL/min/{1.73_m2} Normal >60 [facility] Comment on above: Result Comment: Non- GFR Calc Performed By: #### L 501.9985 #### [facility] [address] [place], [address] Glucose [Mass/Vol] 143 mg/dL High 74-106 [facility] Comment on above: Result Comment: Fast ing Glucose result greater than or equal to 126 mg/dL suggests DIABETES MELLITUS per A.D.A. criteria. Performed By: #### L 501.9985 #### [facility] [address] [place], [address] Potassium [Moles/Vol] 4.4 mmol/L Normal 3.5-5.1 [facility] Comment on above: Performed By: #### L 501.9985 #### [facility] [address] [place], [address] Sodium [Moles/Vol] 138 mmol/L Normal 136-145 [facility] Comment on above: Performed By: #### L 501.9985 #### [facility] [address] [place], [address] Urea nitrogen [Mass/Vol] 23 mg/dL High 7-18 [facility] Comment on above: Performed By: #### L 501.9985 #### [facility] [address] [place], [address] Basophil percentageOrdered B y: Graham Tolbert on 10-23-2024 Basophils/100 WBC (Bld) 0.1 % 0-1 [facility] Blood urea nitrogen (BUN)/cr eatinine ratioOrdered By: Graham Tolbert on 10-23-2024 Urea nitrogen/Creatinine [Mass ratio] 29.6 mg/mg High 10-20 [facility] CBC W/Diff, Automatedon 10-03 Absolute Lymph 0.73 X10 3/uL Low 0.83-4.51 [facility] Comment on above: Performed By: #### L 501.9985 #### [facility] [address] [place], [address] Absolute Neut 11.4 X10 3/uL High 2.0-7.7 [facility] Comment on above: Performed By: #### L 501.9985 #### [facility] [address] [place], [address] Basophils/100 WBC (Bld) 0.1 % Normal 0-1 [facility] Comment on above: Performed By: #### L 501.9985 #### [facility] [facility] [address] [place], [address] Eosinophils/100 WBC (Bld) 0.0 % Normal 0-5 [facility] Comment on above: Performed By: #### L 501.9985 #### [facility] [address] [place], [address] Erythrocyte distribution width (RBC) [Ratio] 13.1 % Normal 11.6-14.6 [facility] Comment on above: Performed By: #### L 501.9985 #### [facility] [address] [place], [address] Hematocrit (Bld) [Volume fraction] 36.9 % Low 40-54 [facility] Comment on above: Performed By: #### L 501.9985 #### [facility] [address] [place], [address] Hemoglobin (Bld) [Mass/Vol] 12.1 g/dL Low 13.0-16.5 [facility] Comment on above: Performed By: #### L 501.9985 #### [facility] [address] [place], [address] IG% 0.500 Normal 0.0-0.9 [facility] Comment on above: Result Comment: IG% - Immature Granulocytes (promyelocytes, myelocytes and metamyelocytes) > 1% indicates that a LEFT SHIFT is Present. Performed By: #### L 501.9985 #### [facility] [address] [place], [address] Lymphocytes/100 WBC (Bld) 5.7 % Low 19-41 [facility] Comment on above: Performed By: #### L 501.9985 #### [facility] [address] [place], [address] MCH (RBC) [Entitic mass] 31.2 pg Normal 27.0-32.0 [facility] Comment on above: Performed By: #### L 501.9985 #### [facility] [address] [place], [address] MCHC (RBC) [Mass/Vol] 32.8 g/dL Normal 32-36 [facility] Comment on above: Performed By: #### L 501.9985 #### [facility] [address] [place], [address] MCV (RBC) [Entitic vol] 95.1 fL High 80-94 [facility] Comment on above: Performed By: #### L 501.9985 #### [facility] [address] [place], [address] Monocytes/100 WBC (Bld) 4.2 % Normal 0-10 [facility] Comment on above: Performed By: #### L 501.9985 #### [facility] [address] [place], [address] Neutrophils/100 WBC (Bld) 89.5 % High 47-70 [facility] Comment on above: Performed By: #### L 501.9985 #### [facility] [address] [place], [address] Nucleated RBC (Bld) [#/Vol] 0 10*3/uL Normal 0-5 [facility] Comment on above: Performed By: #### L 501.9985 #### [facility] [address] [place], [address] Platelet mean volume (Bld) [Entitic vol] 9.6 fL Normal 6.2-12.0 [facility] Comment on above: Performed By: #### L 501.9985 #### [facility] [address] [place], [address] Platelets (Bld) [#/Vol] 287 10*3/uL Normal 150-450 [facility] Comment on above: Performed By: #### L 501.9985 #### [facility] [address] [place], [address] RBC (Bld) [#/Vol] 3.88 10*6/uL Low 4.6-6.2 [facility] Comment on above: Performed By: #### L 501.9985 #### [facility] [address] [place], [address] RDW SD 45.7 fl High 35.1-43.9 [facility] Comment on above: Performed By: #### L 501.9985 #### [facility] [address] [place], [address] WBC (Bld) [#/Vol] 12.8 10*3/uL High 4.4-11.0 [facility] Comment on above: Performed By: #### L 501.9985 #### [facility] [address] [place], [address] Carbon dioxide measurementOr dered By: Graham Tolbert on 10-23-2024 CO2 [Moles/Vol] 28.0 mmol/L 21.0-32.0 [facility] Chloride measurementOrdered By: Graham Tolbert on 10-23-2024 Chloride [Moles/Vol] 105 mmol/L 98-107 [facility] Eosinophil percentageOrdered By: Graham Tolbert on 10-23-2024 Eosinophils/100 WBC (Bld) 0.0 % 0-5 [facility] Erythrocyte distribution wid th ratioOrdered By: Graham Tolbert on 10-23-2024 Erythrocyte distribution width (RBC) [Ratio] 13.1 % 11.6-14.6 [facility] Erythrocyte distribution wid th standard deviationOrdered By: Graham Tolbert on 10-23-2024 Erythrocyte distribution width (RBC) [Entitic vol] 45.7 fL High 35.1-43.9 [facility] Estimated glomerular filtrat ion rate (GFR) AmericanOrdered By: Graham Tolbert on 10-23-2024 Estimated GFR (MDRD) Amer 137 mL/min >60 [facility] Comment on above: GFR Calc Estimation of creatinine akbar aranceOrdered By: Graham Tolbert on 10-23-2024 Estimated Creatinine Clearance Calc 90.10 ml/min [facility] Glomerular filtration rate ( GFR) estimationOrdered By: Graham Tolbert on 10-23-2024 Estimated GFR (MDRD) Non-Af Amer 113 mL/min >60 [facility] Comment on above: Non- GFR Calc Glucose measurementOrdered B y: Graham Tolbert on 10-23-2024 Glucose [Mass/Vol] 143 mg/dL High 74-106 [facility] Comment on above: Fasting Glucose resu lt greater than or equal to 126 mg/dL suggests DIABETES MELLITUS per A.D.A. criteria. Gram Stainon 10-23-2024 GS Acceptable Specimen? Yes (<25 Epithelial cells per/lpf) Gram Stain No cells seen Very Rare Gram positive cocci Normal [facility] Comment on above: Performed By: #### M 300.4600, M100.2000, M300.4500, M100.2400 ####[facility] [address] [place], [address] Hematocrit Auto (Bld) [Volum e fraction]Ordered By: Graham Tolbert on 10-23-2024 Hematocrit (Bld) [Volume fraction] 36.9 % Low 40-54 [facility] Hemoglobin measurementOrdere d By: Graham Tolbert on 10-23-2024 Hemoglobin (Bld) [Mass/Vol] 12.1 g/dL Low 13.0-16.5 [facility] Immature granulocytes/100 WB C Auto (Bld)Ordered By: Graham Tolbert on 10-23-2024 Immature granulocytes/100 WBC (Bld) 0.500 % 0.0-0.9 [facility] Comment on above: IG% - Immature Granu locytes (promyelocytes, myelocytes and metamyelocytes) > 1% indicates that a LEFT SHIFT is Present. Lymphocytes Auto (Unsp spec) [#/Vol]Ordered By: Graham Tolbert on 10-23-2024 Lymphocytes (Bld) [#/Vol] 0.73 10*3/uL Low 0.83-4.51 [facility] Lymphocytes/100 WBC Auto (Un sp spec)Ordered By: Graham Toblert on 10-23-2024 Lymphocytes/100 WBC (Bld) 5.7 % Low 19-41 [facility] MCV (mean corpuscular volume ) determinationOrdered By: Graham Tolbert on 10-23-2024 MCV (RBC) [Entitic vol] 95.1 fL High 80-94 [facility] Mean corpuscular hemoglobin (MCH) determinationOrdered By: Graham Tolbert on 10-23-2024 MCH (RBC) [Entitic mass] 31.2 pg 27.0-32.0 [facility] Mean corpuscular hemoglobin concentration (MCHC) determinationOrdered By: Graham Tolbert on 10-23-2024 MCHC (RBC) [Mass/Vol] 32.8 g/dL 32-36 [facility] Mean platelet volume determi nationOrdered By: Graham Tolbert on 10-23-2024 Platelet mean volume (Bld) [Entitic vol] 9.6 fL 6.2-12.0 [facility] Monocyte percentageOrdered B y: Graham Tolbert on 10-23-2024 Monocytes/100 WBC (Bld) 4.2 % 0-10 [facility] Neutrophil percentageOrdered By: Graham Tolbert on 10-23-2024 Neutrophils/100 WBC (Bld) 89.5 % High 47-70 [facility] Nucleated red blood cell per centageOrdered By: Graham Tolbert on 10-23-2024 Nucleated RBC/100 WBC (Bld) [Ratio] 0 % 0-5 [facility] Platelet countOrdered By: Edouard Tolbert on 10-23-2024 Platelets (Bld) [#/Vol] 287 10*3/uL 150-450 [facility] Potassium measurementOrdered By: Graham Tolbert on 10-23-2024 Potassium [Moles/Vol] 4.4 mmol/L 3.5-5.1 [facility] RBC Auto (Bld) [#/Vol]Ordere d By: Graham Tolbert on 10-23-2024 RBC (Bld) [#/Vol] 3.88 10*6/uL Low 4.6-6.2 [facility] Serum anion gap measurementO rdered By: Graham Tolbert on 10-23-2024 Anion gap [Moles/Vol] 5 mmol/L 5-15 [facility] Serum or plasma calcium micah urement (mass/volume)Ordered By: Graham Tolbert on 10-23-2024 Calcium [Mass/Vol] 9.3 mg/dL 8.5-10.1 [facility] Serum or plasma creatinine m easurement (mass/volume)Ordered By: Graham Tolbert on 10-23-2024 Creatinine [Mass/Vol] 0.78 mg/dL 0.70-1.30 [facility] Comment on above: The validity of the calculated GFR & GFRAA in patients over 70 years has not been determined. Clinical correlation is essential. Serum or plasma urea nitroge n measurement (mass/volume)Ordered By: Graham Tolbert on 10-23-2024 Urea nitrogen [Mass/Vol] 23 mg/dL High 7-18 [facility] Sodium levelOrdered By: Graham Tolbert on 10-23-2024 Sodium [Moles/Vol] 138 mmol/L 136-145 [facility] White blood cell (WBC) count Ordered By: Graham Tolbert on 10-23-2024 WBC (Bld) [#/Vol] 12.8 10*3/uL High 4.4-11.0 [facility] Basic Metabolic Profile (BMP )on 10-22-2024 BUN/CRE 34.7 RATIO High 10-20 [facility] Comment on above: Performed By: #### L 500.2500, L100.0100 #### [facility] [address] [place], [address] CA,Total 8.8 mg/dL Normal 8.5-10.1 [facility] Comment on above: Performed By: #### L 500.2500, L100.0100 #### [facility] [address] [place], [address] Chloride [Moles/Vol] 110 mmol/L High 98-107 [facility] Comment on above: Performed By: #### L 500.2500, L100.0100 #### [facility] [address] [place], [address] CO2 [Moles/Vol] 25.0 mmol/L Normal 21.0-32.0 [facility] Comment on above: Performed By: #### L 500.2500, L100.0100 #### [facility] [address] [place], [address] Creatinine [Mass/Vol] 0.63 mg/dL Low 0.70-1.30 [facility] Comment on above: Result Comment: The validity of the calculated GFR GFRAA in patients over 70 years has not been determined. Clinical correlation is essential. Performed By: #### L 500.2500, L100.0100 #### [facility] [address] [place], [address] ECRCL 111.55 ml/min Normal [facility] Comment on above: Performed By: #### L 500.2500, L100.0100 #### [facility] [address] [place], [address] EST GFR - AA 173 mL/min Normal >60 [facility] Comment on above: Result Comment: Afri can Egyptian GFR Calc Performed By: #### L 500.2500, L100.0100 #### [facility] [address] [place], [address] GAP 4 Low 5-15 [facility] Comment on above: Performed By: #### L 500.2500, L100.0100 #### [facility] [address] [place], [address] GFR/1.73 sq M.predicted among non-blacks MDRD (S/P/Bld) [Vol rate/Area] 143 mL/min/{1.73_m2} Normal >60 [facility] Comment on above: Result Comment: Non- GFR Calc Performed By: #### L 500.2500, L100.0100 #### [facility] [address] [place], [address] Glucose [Mass/Vol] 179 mg/dL High 74-106 [facility] Comment on above: Result Comment: Fast ing Glucose result greater than or equal to 126 mg/dL suggests DIABETES MELLITUS per A.D.A. criteria. Performed By: #### L 500.2500, L100.0100 #### [facility] [address] [place], [address] Potassium [Moles/Vol] 4.2 mmol/L Normal 3.5-5.1 [facility] Comment on above: Performed By: #### L 500.2500, L100.0100 #### [facility] [address] [place], [address] Sodium [Moles/Vol] 138 mmol/L Normal 136-145 [facility] Comment on above: Performed By: #### L 500.2500, L100.0100 #### [facility] [address] [place], [address] Urea nitrogen [Mass/Vol] 22 mg/dL High 7-18 [facility] Comment on above: Performed By: #### L 500.2500, L100.0100 #### [facility] [address] [place], [address] CBC W/Diff, Automatedon 01-2 -2024 Absolute Lymph 0.32 X10 3/uL Low 0.83-4.51 [facility] Comment on above: Performed By: #### L 500.2500, L100.0100 #### [facility] [address] [place], [address] Absolute Neut 4.9 X10 3/uL Normal 2.0-7.7 [facility] Comment on above: Performed By: #### L 500.2500, L100.0100 #### [facility] [address] [place], [address] Basophils/100 WBC (Bld) 0.2 % Normal 0-1 [facility] Comment on above: Performed By: #### L 500.2500, L100.0100 #### [facility] [address] [place], [address] Eosinophils/100 WBC (Bld) 0.0 % Normal 0-5 [facility] Comment on above: Performed By: #### L 500.2500, L100.0100 #### [facility] [address] [place], [address] Erythrocyte distribution width (RBC) [Ratio] 12.9 % Normal 11.6-14.6 [facility] Comment on above: Performed By: #### L 500.2500, L100.0100 #### [facility] [address] [place], [address] Hematocrit (Bld) [Volume fraction] 35.4 % Low 40-54 [facility] Comment on above: Performed By: #### L 500.2500, L100.0100 #### [facility] [address] [place], [address] Hemoglobin (Bld) [Mass/Vol] 11.9 g/dL Low 13.0-16.5 [facility] Comment on above: Performed By: #### L 500.2500, L100.0100 #### [facility] [address] [place], [address] IG% 0.400 Normal 0.0-0.9 [facility] Comment on above: Result Comment: IG% - Immature Granulocytes (promyelocytes, myelocytes and metamyelocytes) > 1% indicates that a LEFT SHIFT is Present. Performed By: #### L 500.2500, L100.0100 #### [facility] [address] [place], [address] Lymphocytes/100 WBC (Bld) 6.1 % Low 19-41 [facility] Comment on above: Performed By: #### L 500.2500, L100.0100 #### [facility] [address] [place], [address] MCH (RBC) [Entitic mass] 32.1 pg High 27.0-32.0 [facility] Comment on above: Performed By: #### L 500.2500, L100.0100 #### [facility] [address] [place], [address] MCHC (RBC) [Mass/Vol] 33.6 g/dL Normal 32-36 [facility] Comment on above: Performed By: #### L 500.2500, L100.0100 #### [facility] [address] [place], [address] MCV (RBC) [Entitic vol] 95.4 fL High 80-94 [facility] Comment on above: Performed By: #### L 500.2500, L100.0100 #### [facility] [address] [place], [address] Monocytes/100 WBC (Bld) 1.0 % Normal 0-10 [facility] Comment on above: Performed By: #### L 500.2500, L100.0100 #### [facility] [address] [place], [address] Neutrophils/100 WBC (Bld) 92.3 % High 47-70 [facility] Comment on above: Performed By: #### L 500.2500, L100.0100 #### [facility] [address] [place], [address] Nucleated RBC (Bld) [#/Vol] 0 10*3/uL Normal 0-5 [facility] Comment on above: Performed By: #### L 500.2500, L100.0100 #### [facility] [address] [place], [address] Platelet mean volume (Bld) [Entitic vol] 9.5 fL Normal 6.2-12.0 [facility] Comment on above: Performed By: #### L 500.2500, L100.0100 #### [facility] [address] [place], [address] Platelets (Bld) [#/Vol] 264 10*3/uL Normal 150-450 [facility] Comment on above: Performed By: #### L 500.2500, L100.0100 #### [facility] [address] [place], [address] RBC (Bld) [#/Vol] 3.71 10*6/uL Low 4.6-6.2 [facility] Comment on above: Performed By: #### L 500.2500, L100.0100 #### [facility] [address] [place], [address] RDW SD 44.8 fl High 35.1-43.9 [facility] Comment on above: Performed By: #### L 500.2500, L100.0100 #### [facility] [address] [place], [address] WBC (Bld) [#/Vol] 5.3 10*3/uL Normal 4.4-11.0 [facility] Comment on above: Performed By: #### L 500.2500, L100.0100 #### [facility] [address] [place], [address] Gram stainOrdered By: Graham mar on 10-22-2024 Microscopic observation Gram stain Nom (Unsp spec) [facility] L. pneumophila Ag Ql (U)Orde red By: Graham Tolbert on 10-22-2024 Legionella Antigen [facility] Legionella Antigen Urineon 0 10-22-2024 LEGU URINE, CLEAN CATCH Legionella Antigen result interpretation: L pneumo Ag Ur Ql Negative Presumptive negative for Legionella pneumophila serogroup 1 antigen in urine, suggesting no recent or current infection. Legionella Ag, Urine Negative (See interpretation below) Normal [facility] Comment on above: Performed By: #### M 300.4600, M100.2000, M300.4500, M100.2400 ####[facility] [address] [place], [address] Microorganism identified Cx Nom (Unsp spec)Ordered By: Graham Tolbert on 10-22-2024 Respiratory Culture or Staphylococcus aureus isolated. [facility] RESPIRATORY PANEL MOLECULARo n 10-22-2024 RP [...] Not Detected RSV B Not Detected Normal [facility] Comment on above: Performed By: #### L 501.4021 #### [facility] [address] [place], [address] Respiratory pathogens DNA an d RNA panel WES+probe (Resp)Ordered By: Troy Monroy on 10-22-2024 Respiratory Panel (PCR) [facility] Strep pneumoniae Antig(UR,CS F)on 10-22-2024 STPAG URINE, CLEAN CATCH URINE INTERPRETATION Strep pneumoniae Antig(UR,CSF) Negative Urine Presumptive negative for pneumococcal pneumonia, suggesting no current or recent pneumococcal infection. Infection due to S pneumoniae cannot be ruled out since the antigen present in the sample may be below the detection limit of the test. Strep pneumo Test Negative URINE (See interpretation below) Normal [facility] Comment on above: Performed By: #### M 300.4600, M100.2000, M300.4500, M100.2400 ####[facility] [address] [place], [address] Streptococcus pneumoniae ant igen assayOrdered By: Graham Tolbert on 10-22-2024 Streptococcus pneumoniae Antigen (M [facility] 12 Lead EKGon 10-21-2024 12 Lead EKG [facility] [address] [place] [address] 12 Lead EKG 10/21/24 1612 MR#: [id number] Acct: [id number] Name: MICHAEL MCNEILL SANTOS Rep #: [id number] : 1975 48 From: Iris Edmondson MD Attending Dr: Dr. Graham Tolbert DO Status: DIS IN Ordering Dr: Julius Matthews DO Date: 10/21/24 Location: U Sex: M C Admitted: 10/21/24 Test Reason : SOB Blood Pressure : */* mmHG Vent. Rate : 107 BPM Atrial Rate : 107 BPM P-R Int : 120 ms QRS Dur : 90 ms QT Int : 362 ms P-R-T Axes : 86 84 73 degrees QTcB Int : 483 ms Sinus tachycardia Biatrial enlargement Abnormal ECG Confirmed by AJAY WEI, PHILIP ([id number]), editor in chief newspaper [employer] ([id number]) on 10/29/2024 6:01:06 AM Referred By: Troy Monroy Confirmed By: PHILIP EDMONDSON MD 10/29/24 0601 Date Iris Edmondson MD CC: Dr. Graham Tolbert, DO; Dr. Troy Monroy MD; Dr. Julius Matthews, ; No Primary Care Physician Signed Normal [facility] Arterial patency Wrist arter y --pre arterial punctureOrdered By: Julius Matthews on 10-21-2024 Connie Test Positive [facility] BNP (brain natriuretic pepti de measurement)Ordered By: Julius Matthews on 10-21-2024 Natriuretic peptide B (Bld) [Mass/Vol] 31.1 pg/mL 0-100 [facility] BNP,B-Type NATRIURETIC PEPTI Shashi 10-21-2024 Natriuretic peptide B (Bld) [Mass/Vol] 31.1 pg/mL Normal 0-100 [facility] Comment on above: Performed By: #### L 9000.0800 #### [facility] [address] [place], [address] Base excess Calc (BldV) [Mol es/Vol]Ordered By: Julius Matthews on 10-21-2024 Blood Gas Base Excess 10 mmol/L High -2-2 [facility] Basic Metabolic Profile (BMP )on 10-21-2024 BUN/CRE 34.1 RATIO High -20 [facility] Comment on above: Order Comment: 'TROP ' Serial specimen #1, #2 or #3: 1 Performed By: #### L 9000.0800 #### [facility] [address] [place], [address] CA,Total 9.3 mg/dL Normal 8.5-10.1 [facility] Comment on above: Order Comment: 'TROP ' Serial specimen #1, #2 or #3: 1 Performed By: #### L 9000.0800 #### [facility] [address] [place], [address] Chloride [Moles/Vol] 101 mmol/L Normal 98-107 [facility] Comment on above: Order Comment: 'TROP ' Serial specimen #1, #2 or #3: 1 Performed By: #### L 9000.0800 #### [facility] [address] [place], [address] CO2 [Moles/Vol] 37.0 mmol/L High 21.0-32.0 [facility] Comment on above: Order Comment: 'TROP ' Serial specimen #1, #2 or #3: 1 Performed By: #### L 9000.0800 #### [facility] [address] [place], [address] Creatinine [Mass/Vol] 0.82 mg/dL Normal 0.70-1.30 [facility] Comment on above: Order Comment: 'TROP ' Serial specimen #1, #2 or #3: 1 Result Comment: The validity of the calculated GFR GFRAA in patients over 70 years has not been determined. Clinical correlation is essential. Performed By: #### L 9000.0800 #### [facility] [address] [place], [address] ECRCL 90.07 ml/min Normal [facility] Comment on above: Order Comment: 'TROP ' Serial specimen #1, #2 or #3: 1 Performed By: #### L 9000.0800 #### [facility] [address] [place], [address] EST GFR - AA 128 mL/min Normal >60 [facility] Comment on above: Order Comment: 'TROP ' Serial specimen #1, #2 or #3: 1 Result Comment: Afri can Egyptian GFR Calc Performed By: #### L 9000.0800 #### [facility] [address] [place], [address] GAP 4 Low 5-15 [facility] Comment on above: Order Comment: 'TROP ' Serial specimen #1, #2 or #3: 1 Performed By: #### L 9000.0800 #### [facility] [address] [place], [address] GFR/1.73 sq M.predicted among non-blacks MDRD (S/P/Bld) [Vol rate/Area] 106 mL/min/{1.73_m2} Normal >60 [facility] Comment on above: Order Comment: 'TROP ' Serial specimen #1, #2 or #3: 1 Result Comment: Non- GFR Calc Performed By: #### L 9000.0800 #### [facility] [address] [place], [address] Glucose [Mass/Vol] 146 mg/dL High 74-106 [facility] Comment on above: Order Comment: 'TROP ' Serial specimen #1, #2 or #3: 1 Result Comment: Fast ing Glucose result greater than or equal to 126 mg/dL suggests DIABETES MELLITUS per A.D.A. criteria. Performed By: #### L 9000.0800 #### [facility] [address] [place], [address] Potassium [Moles/Vol] 3.5 mmol/L Normal 3.5-5.1 [facility] Comment on above: Order Comment: 'TROP ' Serial specimen #1, #2 or #3: 1 Performed By: #### L 9000.0800 #### [facility] [address] [place], [address] Sodium [Moles/Vol] 142 mmol/L Normal 136-145 [facility] Comment on above: Order Comment: 'TROP ' Serial specimen #1, #2 or #3: 1 Performed By: #### L 9000.0800 #### [facility] [address] [place], [address] Urea nitrogen [Mass/Vol] 28 mg/dL High 7-18 [facility] Comment on above: Order Comment: 'TROP ' Serial specimen #1, #2 or #3: 1 Performed By: #### L 9000.0800 #### [facility] [address] [place], [address] [facility] CONNIE TEST Positive Normal [facility] Comment on above: Performed By: #### L 9000.0800 #### [facility] [address] [place], [address] Base excess Calc (Bld) [Moles/Vol] 10 mmol/L High -2 to +2 [facility] Comment on above: Performed By: #### L 9000.0800 #### [facility] [address] [place], [address] Blood Gas Type ART [facility] Comment on above: Performed By: #### L 9000.0800 #### [facility] [address] [place], [address] CO2 [Moles/Vol] 38 mmol/L Normal [facility] Comment on above: Performed By: #### L 9000.0800 #### [facility] [address] [place], [address] FI02 60.0 [facility] Comment on above: Performed By: #### L 9000.0800 #### [facility] [address] [place], [address] HCO3 (Bld) [Moles/Vol] 35.7 mmol/L High 22-26 [facility] Comment on above: Performed By: #### L 9000.0800 #### [facility] [address] [place], [address] Mode Not entered [facility] Comment on above: Performed By: #### L 9000.0800 #### [facility] [address] [place], [address] O2 Delivery Dev BiPAP Normal [facility] Comment on above: Performed By: #### L 9000.0800 #### [facility] [address] [place], [address] pCO2 66.3 mmHg High 35-45 [facility] Comment on above: Performed By: #### L 9000.0800 #### [facility] [address] [place], [address] PEEP 6 Normal [facility] Comment on above: Performed By: #### L 9000.0800 #### [facility] [address] [place], [address] pH (Bld) 7.34 [pH] Low 7.35-7.45 [facility] Comment on above: Performed By: #### L 9000.0800 #### [facility] [address] [place], [address] PO2 343 mmHG Invalid Interpretation Code 75-100 [facility] Comment on above: Performed By: #### L 9000.0800 #### [facility] [address] [place], [address] Read Back By Yes [facility] Comment on above: Performed By: #### L 9000.0800 #### [facility] [address] [place], [address] Results To CASSIE Normal [facility] Comment on above: Performed By: #### L 9000.0800 #### [facility] [address] [place], [address] RR 12 Normal [facility] Comment on above: Performed By: #### L 9000.0800 #### [facility] [address] [place], [address] SITE L Brach [facility] Comment on above: Performed By: #### L 9000.0800 #### [facility] [address] [place], [address] SO2 100 High 95-99 [facility] Comment on above: Performed By: #### L 9000.0800 #### [facility] [address] [place], [address] Time Given 16:29:44 Normal [facility] Comment on above: Performed By: #### L 9000.0800 #### [facility] [address] [place], [address] Blood bicarbonate measuremen tOrdered By: Julius Matthews on 10-21-2024 Blood Gas Bicarbonate Actual 35.7 mmol/L High 22-26 [facility] CBC W/Diff, Automatedon 10-03 Absolute Lymph 2.02 X10 3/uL Normal 0.83-4.51 [facility] Comment on above: Performed By: #### L 9000.0800 #### [facility] [address] [place], [address] Absolute Neut 6.3 X10 3/uL Normal 2.0-7.7 [facility] Comment on above: Performed By: #### L 9000.0800 #### [facility] [address] [place], [address] Basophils/100 WBC (Bld) 0.7 % Normal 0-1 [facility] Comment on above: Performed By: #### L 9000.0800 #### [facility] [address] [place], [address] Eosinophils/100 WBC (Bld) 7.3 % High 0-5 [facility] Comment on above: Performed By: #### L 9000.0800 #### [facility] [address] [place], [address] Erythrocyte distribution width (RBC) [Ratio] 12.6 % Normal 11.6-14.6 [facility] Comment on above: Performed By: #### L 9000.0800 #### [facility] [address] [place], [address] Hematocrit (Bld) [Volume fraction] 41.5 % Normal 40-54 [facility] Comment on above: Performed By: #### L 9000.0800 #### [facility] [address] [place], [address] Hemoglobin (Bld) [Mass/Vol] 13.8 g/dL Normal 13.0-16.5 [facility] Comment on above: Performed By: #### L 9000.0800 #### [facility] [address] [place], [address] IG% 0.200 Normal 0.0-0.9 [facility] Comment on above: Result Comment: IG% - Immature Granulocytes (promyelocytes, myelocytes and metamyelocytes) > 1% indicates that a LEFT SHIFT is Present. Performed By: #### L 9000.0800 #### [facility] [address], [address] Lymphocytes/100 WBC (Bld) 20.6 % Normal 19-41 [facility] Comment on above: Performed By: #### L 9000.0800 #### [facility] [address] [place], [address] MCH (RBC) [Entitic mass] 31.7 pg Normal 27.0-32.0 [facility] Comment on above: Performed By: #### L 9000.0800 #### [facility] [address] [place], [address] MCHC (RBC) [Mass/Vol] 33.3 g/dL Normal 32-36 [facility] Comment on above: Performed By: #### L 9000.0800 #### [facility] [address] [place], [address] MCV (RBC) [Entitic vol] 95.4 fL High 80-94 [facility] Comment on above: Performed By: #### L 9000.0800 #### [facility] [address] [place], [address] Monocytes/100 WBC (Bld) 6.9 % Normal 0-10 [facility] Comment on above: Performed By: #### L 9000.0800 #### [facility] [address] [place], [address] Neutrophils/100 WBC (Bld) 64.3 % Normal 47-70 [facility] Comment on above: Performed By: #### L 9000.0800 #### [facility] [address] [place], [address] Nucleated RBC (Bld) [#/Vol] 0 10*3/uL Normal 0-5 [facility] Comment on above: Performed By: #### L 9000.0800 #### [facility] [address] [place], [address] Platelet mean volume (Bld) [Entitic vol] 9.3 fL Normal 6.2-12.0 [facility] Comment on above: Performed By: #### L 9000.0800 #### [facility] [address] [place], [address] Platelets (Bld) [#/Vol] 362 10*3/uL Normal 150-450 [facility] Comment on above: Performed By: #### L 9000.0800 #### [facility] [address] [place], [address] RBC (Bld) [#/Vol] 4.35 10*6/uL Low 4.6-6.2 [facility] Comment on above: Performed By: #### L 9000.0800 #### [facility] [address] [place], [address] RDW SD 44.6 fl High 35.1-43.9 [facility] Comment on above: Performed By: #### L 9000.0800 #### [facility] [address] [place], [address] WBC (Bld) [#/Vol] 9.8 10*3/uL Normal 4.4-11.0 [facility] Comment on above: Performed By: #### L 9000.0800 #### [facility] [address] [place], [address] CTA Chest W/WO Contraston CTA Chest W/WO Contrast [facility] Imaging Services [address] [place] [address] CTA Chest W/WO Contrast MR#: [id number] Acct: [id number] Name: MICHAEL MCNEILL SANTOS Rep #: [id number] : 1975 M 48 From: Andrew Jones MD PCP: Care Physician,No Primary Status: REG ER Study: CTA Chest W/WO Contrast Date of Exam: 10/21/24 Exam# [id number] Ordering Dr: [place] [id number] EXAM: CT ANGIOGRAPHY CHEST WITHOUT AND WITH [...] Julius Matthews DO; No Primary Care Physician [place]: Signed Normal [facility] Chest 1 View (Portable)on Chest 1 View (Portable) [facility] Imaging Services [address] [place] [address] [id number] Chest 1 View (Portable) MR#: [id number] Acct: [id number] Name: MICHAEL MCNEILL SANTOS Rep #: [id number] : 1975 M 48 From: Andrew Jones MD PCP: Care Physician,No Primary Status: REG ER Study: Chest 1 View (Portable) Date of Exam: 10/21/24 Exam# [id number] Ordering Dr: [place] [id number] EXAM: XR CHEST, 1 VIEW CLINICAL INDICATION: [...] at 17:16 EST , CC: Dr. Julius Matthews, ; No Primary Care Physician [place]: Signed Normal [facility] D-Dimer Quantitative (DVT/PE )on 10-21-2024 D-DIMER QUANT 1.14 FEU/ug/m Invalid Interpretation Code 0.27-0.49 [facility] Comment on above: Result Comment: D-Di edouard ELEVATED (>0.49): Additional studies and clinical assessments are indicated to conclude diagnosis of: Deep Vein Thrombosis (DVT) or Pulmonary Embolism (PE) RESULTS CALLED TO ALEJANDRO 10/21/24 1651 Galina Dias. REPORT READ BACK BY . KAREN Performed By: #### L 300.8000 #### [facility] [address] [facility] [place], [place], [address] D-dimer measurement for deep venous thrombosisOrdered By: Julius Matthews on 10-21-2024 D-Dimer Quantitative (PE/DVT) 1.14 FEU/ug/m High 0.27-0.49 [facility] Comment on above: D-Dimer ELEVATED (>0 .49): Additional studies and clinicalassessments are indicated to conclude diagnosis of:Deep Vein Thrombosis (DVT) or Pulmonary Embolism (PE)RESULTS CALLED TO ALEJANDRO 10/21/24 1651 Galina Dias.REPORT READ BACK BY . KAREN Determination of fraction of inspired oxygenOrdered By: Julius Matthews on 10-21-2024 Blood Gas Oxygen Percent 60.0 [facility] Emergency Department Summary on 10-21-2024 Emergency Department Summary [facility] Medical Records Department [address] [place] [address] Emergency Department Summary 10/21/24 MR#: [id number] Acct: [id number] Name: MICHAEL MCNEILL SANTOS Rep #: [id number] : 1975 48 From: Julius Matthews DO PCP: Care Physician,No Primary Status:ADM IN Location: [facility] [id number] HPI History of Present Illness Chief Complaint: Shortness of Breath [facility] Medical History (Updated 10/21/24 @ 19:35 by [...] light, Ext (more content not included)... Normal [facility] Influenza virus A and B and SARS-CoV-2 (COVID-19) and Respiratory syncytial virus RNAOrdered By: Julius Matthews on 10-21-2024 SARS-CoV-2 (COVID-19) RNA WES+probe Ql (Unsp spec) [facility] L501.4020on 10-21-2024 TROPONIN-I HS 8 pg/mL Normal 3.0-78.0 [facility] Comment on above: Order Comment: 'TROP ' Serial specimen #1, #2 or #3: 1 Result Comment: Nahomi aparicio Note: New Test Units and Gender Specific Reference Ranges. For more information see Policy Stat Procedure [place] High Sensitivity Troponin (TNIH) and attachments. Performed By: #### L 9000.0800 #### [facility] [address] [place], [address] M100.678on 10-21-2024 M100.678 Pending SARS-CoV-2 (COVID 19) Negative INFLUENZA A Negative INFLUENZA B Negative RSV PCR Negative Normal [facility] Comment on above: Performed By: #### L 501.4021 #### [facility] [address] [place], [address] No Panel InformationOrdered By: Julius Matthews on 10-21-2024 Bedside Blood Gas PEEP 6 [facility] Bld Gas Crit Called To/Read Back By Yes [facility] Blood Gas Notified Time 16:29:44 [facility] Blood Gas Notified Whom CASSIE [facility] Blood Gas Respiration Rate 12 [facility] Blood Gas Sample Site L Brach [facility] Blood Gas Specimen Type ART [facility] Blood Gas Vent Mode Not entered [facility] Oxygen Delivery Device BiPAP [facility] Oxygen saturation measuremen tOrdered By: Julius Matthews on 10-21-2024 Blood Gas Oxygen Saturation 100 % High 95-99 [facility] Partial pressure of carbon d ioxide measurementOrdered By: Julius Matthews on 10-21-2024 Arterial Blood Partial Pressure CO2 66.3 mmHg High 35-45 [facility] Partial pressure of oxygen m easurementOrdered By: Julius Matthews on 10-21-2024 Arterial Blood Partial Pressure O2 343 mmHG High 75-100 [facility] Total carbon dioxide measure mentOrdered By: Julius Matthews on 10-21-2024 Blood Gas Total CO2 38 mmol/L [facility] Troponin IOrdered By: Julius Matthews on 10-21-2024 Troponin I High Sensitivity 8 pg/mL 3.0-78.0 [facility] Comment on above: Please Note: New Rubi t Units and Gender Specific Reference Ranges. For more information see Policy Stat Procedure [place] High Sensitivity Troponin (TNIH) and attachments. pH (Unsp spec)Ordered By: Benitez Matthews on 10-21-2024 Blood Gas pH 7.34 Low 7.35-7.45 [facility] 12 Lead EKGon 09-19-2024 12 Lead EKG [facility] Cardiovascular Services [address] [place] [address] 12 Lead EKG 09/19/24 1821 MR#: [id number] Acct: [id number] Name: MICHAEL MCNEILL SANTOS Rep #: [id number] : 1975 48 From: Markus Perry MD Attending Dr: Status: DEP ER Ordering Dr: Troy Monsalve GLAZIER STAINED GLASS-C Date: 09/19/24 Location: ED Sex: M C [...] increased by 29 bpm Confirmed by MARKUS PRERY MD ([id number]), editor in chief newspaper [employer] FELICIANO ([id number]) on 09/23/2024 8:38:17 AM Referred By: Confirmed By: MARKUS PERRY MD 09/23/24 0838 Date Markus Perry MD CC: [employer]-C Troy Monsalve; Dr. Julius Matthews DO; No Primary Care Physician Signed Normal [facility] Absolute neutrophil countOrd ered By: Troy Monsalve on 09-19-2024 Neutrophils (Bld) [#/Vol] 6.3 10*3/uL 2.0-7.7 [facility] Basic Metabolic Profile (BMP )on 09-19-2024 BUN/CRE 24.0 RATIO High 10-20 [facility] Comment on above: Performed By: #### L 9000.0800 #### [facility] [address] [place], [address] CA,Total 9.2 mg/dL Normal 8.5-10.1 [facility] Comment on above: Performed By: #### L 9000.0800 #### [facility] [address] [place], [address] Chloride [Moles/Vol] 103 mmol/L Normal 98-107 [facility] Comment on above: Performed By: #### L 9000.0800 #### [facility] [address] [place], [address] CO2 [Moles/Vol] 31.0 mmol/L Normal 21.0-32.0 [facility] Comment on above: Performed By: #### L 9000.0800 #### [facility] [address] [place], [address] Creatinine [Mass/Vol] 0.75 mg/dL Normal 0.70-1.30 [facility] Comment on above: Result Comment: The validity of the calculated GFR GFRAA in patients over 70 years has not been determined. Clinical correlation is essential. Performed By: #### L 9000.0800 #### [facility] [address] [place], [address] ECRCL 112.61 ml/min Normal [facility] Comment on above: Performed By: #### L 9000.0800 #### [facility] [address] [place], [address] EST GFR - AA 142 mL/min Normal >60 [facility] Comment on above: Result Comment: Afri can Egyptian GFR Calc Performed By: #### L 9000.0800 #### [facility] [address] [place], [address] GAP 3 Low 5-15 [facility] Comment on above: Performed By: #### L 9000.0800 #### [facility] [address] [place], [address] GFR/1.73 sq M.predicted among non-blacks MDRD (S/P/Bld) [Vol rate/Area] 118 mL/min/{1.73_m2} Normal >60 [facility] Comment on above: Result Comment: Non- GFR Calc Performed By: #### L 9000.0800 #### [facility] [address] [place], [address] Glucose [Mass/Vol] 101 mg/dL Normal 74-106 [facility] Comment on above: Result Comment: Fast ing Glucose result from 100 to 125 mg/dL suggests IMPAIRED HOMEOSTASIS per A.D.A. criteria. Performed By: #### L 9000.0800 #### [facility] [address] [place], [address] Potassium [Moles/Vol] 4.1 mmol/L Normal 3.5-5.1 [facility] Comment on above: Performed By: #### L 9000.0800 #### [facility] [address] [place], [address] Sodium [Moles/Vol] 137 mmol/L Normal 136-145 [facility] Comment on above: Performed By: #### L 9000.0800 #### [facility] [address] [place], [address] Urea nitrogen [Mass/Vol] 18 mg/dL Normal 7-18 [facility] Comment on above: Performed By: #### L 9000.0800 #### [facility] [address] [place], [address] Basophil percentageOrdered B y: Troy Monsalve on 09-19-2024 Basophils/100 WBC (Bld) 1.0 % 0-1 [facility] Blood urea nitrogen (BUN)/cr eatinine ratioOrdered By: Troy Monsalve on 09-19-2024 Urea nitrogen/Creatinine [Mass ratio] 24.0 mg/mg High - [facility] CBC W/Diff, Automatedon 09-01 Absolute Lymph 1.48 X10 3/uL Normal 0.83-4.51 [facility] Comment on above: Performed By: #### L 9000.0800 #### [facility] [address] [place], [address] Absolute Neut 6.3 X10 3/uL Normal 2.0-7.7 [facility] Comment on above: Performed By: #### L 9000.0800 #### [facility] [address] [place], [address] Basophils/100 WBC (Bld) 1.0 % Normal 0-1 [facility] Comment on above: Performed By: #### L 9000.0800 #### [facility] [address] [place], [address] Eosinophils/100 WBC (Bld) 7.1 % High 0-5 [facility] Comment on above: Performed By: #### L 9000.0800 #### [facility] [address] [place], [address] Erythrocyte distribution width (RBC) [Ratio] 12.6 % Normal 11.6-14.6 [facility] Comment on above: Performed By: #### L 9000.0800 #### [facility] [address] [place], [address] Hematocrit (Bld) [Volume fraction] 43.7 % Normal 40-54 [facility] Comment on above: Performed By: #### L 9000.0800 #### [facility] [address] [place], [address] Hemoglobin (Bld) [Mass/Vol] 14.5 g/dL Normal 13.0-16.5 [facility] Comment on above: Performed By: #### L 9000.0800 #### [facility] [address] [place], [address] IG% 0.300 Normal 0.0-0.9 [facility] Comment on above: Result Comment: IG% - Immature Granulocytes (promyelocytes, myelocytes and metamyelocytes) > 1% indicates that a LEFT SHIFT is Present. Performed By: #### L 9000.0800 #### [facility] [address] [place], [address] Lymphocytes/100 WBC (Bld) 16.2 % Low 19-41 [facility] Comment on above: Performed By: #### L 9000.0800 #### [facility] [address] [place], [address] MCH (RBC) [Entitic mass] 31.4 pg Normal 27.0-32.0 [facility] Comment on above: Performed By: #### L 9000.0800 #### [facility] [address] [place], [address] MCHC (RBC) [Mass/Vol] 33.2 g/dL Normal 32-36 [facility] Comment on above: Performed By: #### L 9000.0800 #### [facility] [address] [place], [address] MCV (RBC) [Entitic vol] 94.6 fL High 80-94 [facility] Comment on above: Performed By: #### L 9000.0800 #### [facility] [address] [place], [address] Monocytes/100 WBC (Bld) 6.6 % Normal 0-10 [facility] Comment on above: Performed By: #### L 9000.0800 #### [facility] [address] [place], [address] Neutrophils/100 WBC (Bld) 68.8 % Normal 47-70 [facility] Comment on above: Performed By: #### L 9000.0800 #### [facility] [address] [place], [address] Nucleated RBC (Bld) [#/Vol] 0 10*3/uL Normal 0-5 [facility] Comment on above: Performed By: #### L 9000.0800 #### [facility] [address] [place], [address] Platelet mean volume (Bld) [Entitic vol] 9.4 fL Normal 6.2-12.0 [facility] Comment on above: Performed By: #### L 9000.0800 #### [facility] [address] [place], [address] Platelets (Bld) [#/Vol] 302 10*3/uL Normal 150-450 [facility] Comment on above: Performed By: #### L 9000.0800 #### [facility] [address] [place], [address] RBC (Bld) [#/Vol] 4.62 10*6/uL Normal 4.6-6.2 [facility] Comment on above: Performed By: #### L 9000.0800 #### [facility] [address] [place], [address] RDW SD 43.4 fl Normal 35.1-43.9 [facility] Comment on above: Performed By: #### L 9000.0800 #### [facility] [address] [place], [address] WBC (Bld) [#/Vol] 9.1 10*3/uL Normal 4.4-11.0 [facility] Comment on above: Performed By: #### L 9000.0800 #### [facility] [address] [place], [address] Carbon dioxide measurementOr dered By: Troy Monsalve on 09-19-2024 CO2 [Moles/Vol] 31.0 mmol/L 21.0-32.0 [facility] Chest PA and Lateralon 09-19 Chest PA and Lateral [facility] Imaging Services [address] [place], [place] [address] Chest PA and Lateral MR#: [id number] Acct: [id number] Name: MICHAEL MCNEILL SANTOS Rep #: [id number] : 1975 M 48 From: José Miguel Madsen MD PCP: Care Physician,No Primary Status: REG ER Study: Chest PA and Lateral Date of Exam: 09/19/24 Exam# [id number] Ordering Dr: Troy Monsalve [place] [id number] EXAM: XR CHEST, 2 VIEWS CLINICAL INDICATION: [...] CC: NIKHIL Monsalve; No Primary Care Physician [place]: Signed Normal [facility] Chloride measurementOrdered By: Troy Monsalve on 09-19-2024 Chloride [Moles/Vol] 103 mmol/L 98-107 [facility] Emergency Department Summary on 09-19-2024 Emergency Department Summary [facility] Medical Records Department [address] [place] [address] Emergency Department Summary 09/19/24 MR#: [id number] Acct: [id number] Name: MICHAEL MCNEILL SANTOS Rep #: [id number] : 1975 48 From: Julius Matthews DO [...] lot today, he does work in the [employer]. Patient states he is now having more shortness of breath, cough and is here for evaluation. He denies any fever chills nausea or vomiting. [facility] Medical History Ankle fracture, left Bipolar disorder [...] 17 R (more content not included)... Normal [facility] Eosinophil percentageOrdered By: Troy Monsalve on 09-19-2024 Eosinophils/100 WBC (Bld) 7.1 % High 0-5 [facility] Erythrocyte distribution wid th ratioOrdered By: Troy Monsalve on 09-19-2024 Erythrocyte distribution width (RBC) [Ratio] 12.6 % 11.6-14.6 [facility] Erythrocyte distribution wid th standard deviationOrdered By: Troy Monsalve on 09-19-2024 Erythrocyte distribution width (RBC) [Entitic vol] 43.4 fL 35.1-43.9 [facility] Estimated glomerular filtrat ion rate (GFR) AmericanOrdered By: Troy Monsalve on 09-19-2024 Estimated GFR (MDRD) Amer 142 mL/min >60 [facility] Comment on above: GFR Calc Estimation of creatinine akbar aranceOrdered By: Troy Monsalve on 09-19-2024 Estimated Creatinine Clearance Calc 112.61 ml/min [facility] Glomerular filtration rate ( GFR) estimationOrdered By: Troy Monsalve on 09-19-2024 Estimated GFR (MDRD) Non-Af Amer 118 mL/min >60 [facility] Comment on above: Non- GFR Calc Glucose measurementOrdered B y: Troy Monsalve on 09-19-2024 Glucose [Mass/Vol] 101 mg/dL 74-106 [facility] Comment on above: Fasting Glucose resu lt from 100 to 125 mg/dL suggests IMPAIRED HOMEOSTASIS per A.D.A. criteria. Hematocrit Auto (Bld) [Volum e fraction]Ordered By: Troy Monsalve on 09-19-2024 Hematocrit (Bld) [Volume fraction] 43.7 % 40-54 [facility] Hemoglobin measurementOrdere d By: Troy Monsalve on 09-19-2024 Hemoglobin (Bld) [Mass/Vol] 14.5 g/dL 13.0-16.5 [facility] Immature granulocytes/100 WB C Auto (Bld)Ordered By: Troy Monsalve on 09-19-2024 Immature granulocytes/100 WBC (Bld) 0.300 % 0.0-0.9 [facility] Comment on above: IG% - Immature Granu locytes (promyelocytes, myelocytes and metamyelocytes) > 1% indicates that a LEFT SHIFT is Present. Lymphocytes Auto (Unsp spec) [#/Vol]Ordered By: Troy Monsalve on 09-19-2024 Lymphocytes (Bld) [#/Vol] 1.48 10*3/uL 0.83-4.51 [facility] Lymphocytes/100 WBC Auto (Un sp spec)Ordered By: Troy Monsalve on 09-19-2024 Lymphocytes/100 WBC (Bld) 16.2 % Low 19-41 [facility] MCV (mean corpuscular volume ) determinationOrdered By: Troy Monsalve on 09-19-2024 MCV (RBC) [Entitic vol] 94.6 fL High 80-94 [facility] Mean corpuscular hemoglobin (MCH) determinationOrdered By: Troy Monsalve on 09-19-2024 MCH (RBC) [Entitic mass] 31.4 pg 27.0-32.0 [facility] Mean corpuscular hemoglobin concentration (MCHC) determinationOrdered By: rToy Monsalve on 09-19-2024 MCHC (RBC) [Mass/Vol] 33.2 g/dL 32-36 [facility] Mean platelet volume determi nationOrdered By: Troy Monsalve on 09-19-2024 Platelet mean volume (Bld) [Entitic vol] 9.4 fL 6.2-12.0 [facility] Monocyte percentageOrdered B y: Troy Monsalve on 09-19-2024 Monocytes/100 WBC (Bld) 6.6 % 0-10 [facility] Neutrophil percentageOrdered By: Troy Monsalve on 09-19-2024 Neutrophils/100 WBC (Bld) 68.8 % 47-70 [facility] Nucleated red blood cell per centageOrdered By: Troy Monsalve on 09-19-2024 Nucleated RBC/100 WBC (Bld) [Ratio] 0 % 0-5 [facility] Platelet countOrdered By: Malia Monsalve on 09-19-2024 Platelets (Bld) [#/Vol] 302 10*3/uL 150-450 [facility] Potassium measurementOrdered By: Troy Monsalve on 09-19-2024 Potassium [Moles/Vol] 4.1 mmol/L 3.5-5.1 [facility] RBC Auto (Bld) [#/Vol]Ordere d By: Troy Monsalve on 09-19-2024 RBC (Bld) [#/Vol] 4.62 10*6/uL 4.6-6.2 [facility] Serum anion gap measurementO rdered By: Troy Monsalve on 09-19-2024 Anion gap [Moles/Vol] 3 mmol/L Low 5-15 [facility] Serum or plasma calcium micah urement (mass/volume)Ordered By: Troy Monsalve on 09-19-2024 Calcium [Mass/Vol] 9.2 mg/dL 8.5-10.1 [facility] Serum or plasma creatinine m easurement (mass/volume)Ordered By: Troy Monsalve on 09-19-2024 Creatinine [Mass/Vol] 0.75 mg/dL 0.70-1.30 [facility] Comment on above: The validity of the calculated GFR & GFRAA in patients over 70 years has not been determined. Clinical correlation is essential. Serum or plasma urea nitroge n measurement (mass/volume)Ordered By: Troy Monsalve on 09-19-2024 Urea nitrogen [Mass/Vol] 18 mg/dL 7-18 [facility] Sodium levelOrdered By: Troy Monsalve on 09-19-2024 Sodium [Moles/Vol] 137 mmol/L 136-145 [facility] White blood cell (WBC) count Ordered By: Troy Monsalve on 09-19-2024 WBC (Bld) [#/Vol] 9.1 10*3/uL 4.4-11.0 [facility] 12 Lead EKGon 09-07-2024 12 Lead EKG [facility] Cardiovascular Services [address] [place] [address] 12 Lead EKG 09/07/24 1205 MR#: [id number] Acct: [id number] Name: MICHAEL MCNEILL SANTOS Rep #: [id number] : 1975 48 From: Peña Martinez MD [...] Otherwise normal ECG Confirmed by Peña Martinez ([id number]), editor in chief newspaper [employer]BBLES FELICIANO ([id number]) on 09/09/2024 6:58:28 AM Referred By: Confirmed By: Peña Martinez 09/09/24 0658 Date Peña Martinez MD CC: Dr. Julius Matthews DO; No Primary Care Physician Signed Normal [facility] Absolute neutrophil countOrd ered By: Julius Matthews on 09-07-2024 Neutrophils (Bld) [#/Vol] 3.2 10*3/uL 2.0-7.7 [facility] Basic Metabolic Profile (BMP )on 09-07-2024 BUN/CRE 21.6 RATIO High 10-20 [facility] Comment on above: Order Comment: 'TROP ' Serial specimen #1, #2 or #3: 1 Performed By: #### L 501.9985 #### [facility] [address] [place], [place], [address] CA,Total 9.1 mg/dL Normal 8.5-10.1 [facility] Comment on above: Order Comment: 'TROP ' Serial specimen #1, #2 or #3: 1 Performed By: #### L 501.9985 #### [facility] [address] [place], [address] Chloride [Moles/Vol] 109 mmol/L High 98-107 [facility] Comment on above: Order Comment: 'TROP ' Serial specimen #1, #2 or #3: 1 Performed By: #### L 501.9985 #### [facility] [address] [place], [address] CO2 [Moles/Vol] 28.0 mmol/L Normal 21.0-32.0 [facility] Comment on above: Order Comment: 'TROP ' Serial specimen #1, #2 or #3: 1 Performed By: #### L 501.9985 #### [facility] [address] [place], [address] Creatinine [Mass/Vol] 0.83 mg/dL Normal 0.70-1.30 [facility] Comment on above: Order Comment: 'TROP ' Serial specimen #1, #2 or #3: 1 Result Comment: The validity of the calculated GFR GFRAA in patients over 70 years has not been determined. Clinical correlation is essential. Performed By: #### L 501.9985 #### [facility] [address] [place], [address] ECRCL 91.48 ml/min Normal [facility] Comment on above: Order Comment: 'TROP ' Serial specimen #1, #2 or #3: 1 Performed By: #### L 501.9985 #### [facility] [address] [place], [address] EST GFR - AA 126 mL/min Normal >60 [facility] Comment on above: Order Comment: 'TROP ' Serial specimen #1, #2 or #3: 1 Result Comment: Afri can Egyptian GFR Calc Performed By: #### L 501.9985 #### [facility] [address] [place], [address] GAP 4 Low 5-15 [facility] Comment on above: Order Comment: 'TROP ' Serial specimen #1, #2 or #3: 1 Performed By: #### L 501.9985 #### [facility] [address] [place], [address] GFR/1.73 sq M.predicted among non-blacks MDRD (S/P/Bld) [Vol rate/Area] 105 mL/min/{1.73_m2} Normal >60 [facility] Comment on above: Order Comment: 'TROP ' Serial specimen #1, #2 or #3: 1 Result Comment: Non- GFR Calc Performed By: #### L 501.9985 #### [facility] [address] [place], [address] Glucose [Mass/Vol] 105 mg/dL Normal 74-106 [facility] Comment on above: Order Comment: 'TROP ' Serial specimen #1, #2 or #3: 1 Result Comment: Fast ing Glucose result from 100 to 125 mg/dL suggests IMPAIRED HOMEOSTASIS per A.D.A. criteria. Performed By: #### L 501.9985 #### [facility] [address] [place], [address] Potassium [Moles/Vol] 3.8 mmol/L Normal 3.5-5.1 [facility] Comment on above: Order Comment: 'TROP ' Serial specimen #1, #2 or #3: 1 Performed By: #### L 501.9985 #### [facility] [address] [place], [address] Sodium [Moles/Vol] 142 mmol/L Normal 136-145 [facility] Comment on above: Order Comment: 'TROP ' Serial specimen #1, #2 or #3: 1 Performed By: #### L 501.9985 #### [facility] [address] [place], [address] Urea nitrogen [Mass/Vol] 18 mg/dL Normal 7-18 [facility] Comment on above: Order Comment: 'TROP ' Serial specimen #1, #2 or #3: 1 Performed By: #### L 501.9985 #### [facility] [address] [place], [address] Basophil percentageOrdered B y: Julius Saldanarus on 09-07-2024 Basophils/100 WBC (Bld) 0.9 % 0-1 [facility] Blood urea nitrogen (BUN)/cr eatinine ratioOrdered By: Julius Matthews on 09-07-2024 Urea nitrogen/Creatinine [Mass ratio] 21.6 mg/mg High 10-20 [facility] CBC W/Diff, Automatedon - Absolute Lymph 1.14 X10 3/uL Normal 0.83-4.51 [facility] Comment on above: Performed By: #### L 501.9985 #### [facility] [address] [place], [address] Absolute Neut 3.2 X10 3/uL Normal 2.0-7.7 [facility] Comment on above: Performed By: #### L 501.9985 #### [facility] [address] [place], [address] Basophils/100 WBC (Bld) 0.9 % Normal 0-1 [facility] Comment on above: Performed By: #### L 501.9985 #### [facility] [address] [place], [address] Eosinophils/100 WBC (Bld) 11.8 % High 0-5 [facility] Comment on above: Performed By: #### L 501.9985 #### [facility] [address] [place], [address] Erythrocyte distribution width (RBC) [Ratio] 12.5 % Normal 11.6-14.6 [facility] Comment on above: Performed By: #### L 501.9985 #### [facility] [address] [place], [address] Hematocrit (Bld) [Volume fraction] 41.1 % Normal 40-54 [facility] Comment on above: Performed By: #### L 501.9985 #### [facility] [address] [place], [address] Hemoglobin (Bld) [Mass/Vol] 13.8 g/dL Normal 13.0-16.5 [facility] Comment on above: Performed By: #### L 501.9985 #### [facility] [address] [place], [address] IG% 0.400 Normal 0.0-0.9 [facility] Comment on above: Result Comment: IG% - Immature Granulocytes (promyelocytes, myelocytes and metamyelocytes) > 1% indicates that a LEFT SHIFT is Present. Performed By: #### L 501.9985 #### [facility] [address] [place], [address] Lymphocytes/100 WBC (Bld) 21.1 % Normal 19-41 [facility] Comment on above: Performed By: #### L 501.9985 #### [facility] [address] [place], [address] MCH (RBC) [Entitic mass] 31.8 pg Normal 27.0-32.0 [facility] Comment on above: Performed By: #### L 501.9985 #### [facility] [address] [place], [address] MCHC (RBC) [Mass/Vol] 33.6 g/dL Normal 32-36 [facility] Comment on above: Performed By: #### L 501.9985 #### [facility] [address] [place], [address] MCV (RBC) [Entitic vol] 94.7 fL High 80-94 [facility] Comment on above: Performed By: #### L 501.9985 #### [facility] [address] [place], [address] Monocytes/100 WBC (Bld) 7.4 % Normal 0-10 [facility] Comment on above: Performed By: #### L 501.9985 #### [facility] [address] [place], [address] Neutrophils/100 WBC (Bld) 58.4 % Normal 47-70 [facility] Comment on above: Performed By: #### L 501.9985 #### [facility] [address] [place], [address] Nucleated RBC (Bld) [#/Vol] 0 10*3/uL Normal 0-5 [facility] Comment on above: Performed By: #### L 501.9985 #### [facility] [address] [place], [address] Platelet mean volume (Bld) [Entitic vol] 9.3 fL Normal 6.2-12.0 [facility] Comment on above: Performed By: #### L 501.9985 #### [facility] [address] [place], [address] Platelets (Bld) [#/Vol] 327 10*3/uL Normal 150-450 [facility] Comment on above: Performed By: #### L 501.9985 #### [facility] [address] [place], [address] RBC (Bld) [#/Vol] 4.34 10*6/uL Low 4.6-6.2 [facility] Comment on above: Performed By: #### L 501.9985 #### [facility] [address] [place], [address] RDW SD 43.4 fl Normal 35.1-43.9 [facility] Comment on above: Performed By: #### L 501.9985 #### [facility] [address] [place], [address] WBC (Bld) [#/Vol] 5.4 10*3/uL Normal 4.4-11.0 [facility] Comment on above: Performed By: #### L 501.9985 #### [facility] [address] [place], [place], [address] Carbon dioxide measurementOr dered By: Julius Matthews on 09-07-2024 CO2 [Moles/Vol] 28.0 mmol/L 21.0-32.0 [facility] Chest 1 View (Portable)on Chest 1 View (Portable) [facility] Imaging Services [address] [place] [address] Chest 1 View (Portable) MR#: [id number] Acct: [id number] Name: MICHAEL MCNEILL SANTOS Rep #: [id number] : 1975 M 48 From: Darinel Stewart MD PCP: Care Physician,No Primary Status: REG ER Study: Chest 1 View (Portable) Date of Exam: 09/07/24 Exam# [id number] Ordering [place]: [place] [id number] STUDY: X-RAY CHEST REASON FOR EXAM: Male, [...] Julius Matthews DO; No Primary Care Physician [place]: Signed Normal [facility] Chloride measurementOrdered By: Julius Matthews on 09-07-2024 Chloride [Moles/Vol] 109 mmol/L High 98-107 [facility] Emergency Department Summary on 09-07-2024 Emergency Department Summary [facility] Medical Records Department [address] [place] [address] Emergency Department Summary 09/07/24 MR#: [id number] Acct: [id number] Name: MICHAEL MCNEILL SANTOS Rep #: [id number] : 1975 48 From: Julius Matthews DO [...] 98 99 Oxygen Delivery Method Room Air [facility] MDM MDM Narrative Medical decision making narrative: [...] XII intact (more content not included)... Normal [facility] Eosinophil percentageOrdered By: Julius Matthews on 09-07-2024 Eosinophils/100 WBC (Bld) 11.8 % High 0-5 [facility] Erythrocyte distribution wid th ratioOrdered By: Julius Matthews on 09-07-2024 Erythrocyte distribution width (RBC) [Ratio] 12.5 % 11.6-14.6 [facility] Erythrocyte distribution wid th standard deviationOrdered By: Julius Matthews on 09-07-2024 Erythrocyte distribution width (RBC) [Entitic vol] 43.4 fL 35.1-43.9 [facility] Estimated glomerular filtrat ion rate (GFR) AmericanOrdered By: Julius Matthews on 09-07-2024 Estimated GFR (MDRD) Amer 126 mL/min >60 [facility] Comment on above: GFR Calc Estimation of creatinine akbar aranceOrdered By: Julius Matthews on 09-07-2024 Estimated Creatinine Clearance Calc 91.48 ml/min [facility] Glomerular filtration rate ( GFR) estimationOrdered By: Julius Matthews on 09-07-2024 Estimated GFR (MDRD) Non-Af Amer 105 mL/min >60 [facility] Comment on above: Non- GFR Calc Glucose measurementOrdered B y: Julius Matthews on 09-07-2024 Glucose [Mass/Vol] 105 mg/dL 74-106 [facility] Comment on above: Fasting Glucose resu lt from 100 to 125 mg/dL suggests IMPAIRED HOMEOSTASIS per A.D.A. criteria. Hematocrit Auto (Bld) [Volum e fraction]Ordered By: Julius Matthews on 09-07-2024 Hematocrit (Bld) [Volume fraction] 41.1 % 40-54 [facility] Hemoglobin measurementOrdere d By: Julius Matthews on 09-07-2024 Hemoglobin (Bld) [Mass/Vol] 13.8 g/dL 13.0-16.5 [facility] Immature granulocytes/100 WB C Auto (Bld)Ordered By: Julius Matthews on 09-07-2024 Immature granulocytes/100 WBC (Bld) 0.400 % 0.0-0.9 [facility] Comment on above: IG% - Immature Granu locytes (promyelocytes, myelocytes and metamyelocytes) > 1% indicates that a LEFT SHIFT is Present. Influenza virus A and B and SARS-CoV-2 (COVID-19) and Respiratory syncytial virus RNAOrdered By: Julius Matthews on 09-07-2024 SARS-CoV-2 (COVID-19) RNA WES+probe Ql (Unsp spec) [facility] L501.4020on 09-07-2024 TROPONIN-I HS 6 pg/mL Normal 3.0-78.0 [facility] Comment on above: Order Comment: 'TROP ' Serial specimen #1, #2 or #3: 1 Result Comment: Plea se Note: New Test Units and Gender Specific Reference Ranges. For more information see Policy Stat Procedure [place] High Sensitivity Troponin (TNIH) and attachments. Performed By: #### L 501.9985 #### [facility] Laboratory [address] [place], [place], [id number] Lymphocytes Auto (Unsp spec) [#/Vol]Ordered By: Julius Matthews on 09-07-2024 Lymphocytes (Bld) [#/Vol] 1.14 10*3/uL 0.83-4.51 [facility] Lymphocytes/100 WBC Auto (Un sp spec)Ordered By: Julius Matthews on 09-07-2024 Lymphocytes/100 WBC (Bld) 21.1 % 19-41 [facility] M100.678on 09-07-2024 M100.678 Pending SARS-CoV-2 (COVID 19) Negative INFLUENZA A Negative INFLUENZA B Negative RSV PCR Negative Normal [facility] Comment on above: Performed By: #### L 501.4021 #### [facility] [address] [place], [address] MCV (mean corpuscular volume ) determinationOrdered By: Julius Matthews on 09-07-2024 MCV (RBC) [Entitic vol] 94.7 fL High 80-94 [facility] Mean corpuscular hemoglobin (MCH) determinationOrdered By: Julius Matthews on 09-07-2024 MCH (RBC) [Entitic mass] 31.8 pg 27.0-32.0 [facility] Mean corpuscular hemoglobin concentration (MCHC) determinationOrdered By: Julius Matthews on 09-07-2024 MCHC (RBC) [Mass/Vol] 33.6 g/dL 32-36 [facility] Mean platelet volume determi nationOrdered By: Julius Matthews on 09-07-2024 Platelet mean volume (Bld) [Entitic vol] 9.3 fL 6.2-12.0 [facility] Monocyte percentageOrdered B y: Julius Matthews on 09-07-2024 Monocytes/100 WBC (Bld) 7.4 % 0-10 [facility] Neutrophil percentageOrdered By: Julius Matthews on 09-07-2024 Neutrophils/100 WBC (Bld) 58.4 % 47-70 [facility] Nucleated red blood cell per centageOrdered By: Julius Matthews on 09-07-2024 Nucleated RBC/100 WBC (Bld) [Ratio] 0 % 0-5 [facility] Platelet countOrdered By: cristina Matthews on 09-07-2024 Platelets (Bld) [#/Vol] 327 10*3/uL 150-450 [facility] Potassium measurementOrdered By: Julius Matthews on 09-07-2024 Potassium [Moles/Vol] 3.8 mmol/L 3.5-5.1 [facility] RBC Auto (Bld) [#/Vol]Ordere d By: Julius Matthews on 09-07-2024 RBC (Bld) [#/Vol] 4.34 10*6/uL Low 4.6-6.2 [facility] Serum anion gap measurementO rdered By: Julius Matthews on 09-07-2024 Anion gap [Moles/Vol] 4 mmol/L Low 5-15 [facility] Serum or plasma calcium micah urement (mass/volume)Ordered By: Julius Matthews on 09-07-2024 Calcium [Mass/Vol] 9.1 mg/dL 8.5-10.1 [facility] Serum or plasma creatinine m easurement (mass/volume)Ordered By: Julius Matthews on 09-07-2024 Creatinine [Mass/Vol] 0.83 mg/dL 0.70-1.30 [facility] Comment on above: The validity of the calculated GFR & GFRAA in patients over 70 years has not been determined. Clinical correlation is essential. Serum or plasma urea nitroge n measurement (mass/volume)Ordered By: Julius Matthews on 09-07-2024 Urea nitrogen [Mass/Vol] 18 mg/dL 7-18 [facility] Sodium levelOrdered By: Connie Matthews on 09-07-2024 Sodium [Moles/Vol] 142 mmol/L 136-145 [facility] Troponin IOrdered By: Julius Matthews on 09-07-2024 Troponin I High Sensitivity 6 pg/mL 3.0-78.0 [facility] Comment on above: Please Note: New Rubi t Units and Gender Specific Reference Ranges. For more information see Policy Stat Procedure [place] High Sensitivity Troponin (TNIH) and attachments. White blood cell (WBC) count Ordered By: Julius Matthews on 09-07-2024 WBC (Bld) [#/Vol] 5.4 10*3/uL 4.4-11.0 [facility] Emergency Department Summary on 08-04-2024 Emergency Department Summary [facility] Medical Records Department [address] [place] [address] Emergency Department Summary 08/04/24 MR#: [id number] Acct: [id number] Name: MICHAEL MCNEILL SANTOS Rep #: [id number] : 1975 48 From: Andrew Henning DO [...] pain and therefore comes in for evaluation [facility] Medical History Ankle fracture, left Bipolar disorder [...] potential for (more content not included)... Normal [facility] Foot min 3 Viewson 4 Foot min 3 Views [facility] Imaging Services [address] [place], [place] [address] Foot min 3 Views MR#: [id number] Acct: [id number] Name: MICHAEL MCNEILL Rep #: [id number] : 1975 M 48 From: Barber Grace MD PCP: Care Physician,No Primary Status: REG ER Study: Foot min 3 Views Date of Exam: 08/03/24 Exam# [id number] Ordering [place]: [place] [id number] INDICATION: pain / ? FB EXAMINATION/TECHNIQUE: X-RAY [...] Andrew Henning DO; No Primary Care Physician [place]: Signed Normal [facility] Emergency Department Summary on 06-03-2024 Emergency Department Summary [facility] Medical Records Department [address] [place] [address] Emergency Department Summary 06/03/24 MR#: [id number] Acct: [id number] Name: MICHAEL MCNEILL Rep #: [id number] : 1975 48 From: Andrew Henning DO [...] admission and therefore comes in for evaluation [facility] Medical History Ankle fracture, left Bipolar disorder [...] pulsatile mass (more content not included)... Normal [facility] Emergency Department Summary on 06-02-2024 Emergency Department Summary [facility] Medical Records Department [address] [place] [address] Emergency Department Summary 06/02/24 MR#: [id number] Acct: [id number] Name: MICHAEL MCNEILL Rep #: [id number] : 1975 48 From: Maximilian Bernstein DO PCP: Care Physician,No Primary Status:DEP ER Location: ED HPI History of Present Illness Chief Complaint: Rash Informant: patient Narrative Narrative: 48-year-old male presenting to the emergency room with bilateral arm rash. Patient states that about 3 days ago he awoke in [place] at a homeless assisted and he had itchy bumps over the [...] He denies any IV drug use currently. [facility] Medical History Ankle fracture, left Bipolar disorder [...] grossly normal (more content not included)... Normal [facility] Absolute lymphocyte countOrd ered By: Taelacey Walsh on 10-29-2023 Lymphocytes Auto (Unsp spec) [#/Vol] 1.38 10*3/uL 0.83-4.51 [facility] Automated lymphocyte count a s percentage of total leukocytesOrdered By: Taelacey Walsh on 10-29-2023 Lymphocytes/100 WBC Auto (Unsp spec) 14.6 % 19-41 [facility] Basophil percentageOrdered B y: Alisha White on 10-29-2023 Basophil percentage 4.9 mg/dL 2.5-4.9 [facility] Basophil percentageOrdered B y: Taelacey Walsh on 10-29-2023 Basophils/100 WBC (Bld) 0.6 % 0-1 [facility] Bilirubin [Mass/Vol] 0.60 mg/dL 0.20-1.00 [facility] Comment on above: For patients on eltr ombopag therapy, use of Dimension [place] TBIL is not recommended. Chloride [Moles/Vol] 100 mmol/L 98-107 [facility] Eosinophils/100 WBC (Bld) 1.6 % 0-5 [facility] Glucose [Mass/Vol] 82 mg/dL 74-106 [facility] Hemoglobin (Bld) [Mass/Vol] 14.5 g/dL 13.0-16.5 [facility] Monocytes/100 WBC (Bld) 4.0 % 0-10 [facility] Neutrophils (Bld) [#/Vol] 7.4 10*3/uL 2.0-7.7 [facility] Neutrophils/100 WBC (Bld) 78.9 % 47-70 [facility] Potassium [Moles/Vol] 4.0 mmol/L 3.5-5.1 [facility] Protein [Mass/Vol] 8.3 g/dL 6.4-8.2 [facility] Sodium [Moles/Vol] 133 mmol/L 136-145 [facility] WBC (Bld) [#/Vol] 9.4 10*3/uL 4.4-11.0 [facility] Determination of erythrocyte mean corpuscular volume (MCV)Ordered By: Tae Walsh on 10-29-2023 MCV (RBC) [Entitic vol] 93.4 fL 80-94 [facility] Erythrocyte distribution wid th ratioOrdered By: Tae Walsh on 10-29-2023 Erythrocyte distribution width (RBC) [Ratio] 12.4 % 11.6-14.6 [facility] Erythrocyte distribution wid th standard deviationOrdered By: Taelacey Walsh on 10-29-2023 Erythrocyte distribution width (RBC) [Entitic vol] 43.0 fL 35.1-43.9 [facility] Hematocrit Auto (Bld) [Volum e fraction]Ordered By: Tae Walsh on 10-29-2023 Hematocrit (Bld) [Volume fraction] 44.1 % 40-54 [facility] Immature granulocytes/100 WB C Auto (Bld)Ordered By: Taelacey Walsh on 10-29-2023 Immature granulocytes/100 WBC (Bld) 0.300 % 0.0-0.9 [facility] Comment on above: IG% - Immature Granu locytes (promyelocytes, myelocytes and metamyelocytes) > 1% indicates that a LEFT SHIFT is Present. Laboratory - Chemistry and C hemistry - challengeOrdered By: Tae Walsh on 10-29-2023 Albumin/Globulin [Mass ratio] 1.0 {ratio} 0.9-2.4 [facility] ALP [Catalytic activity/Vol] 59 U/L 45-117 [facility] ALT [Catalytic activity/Vol] 37 U/L 16-61 [facility] CO2 [Moles/Vol] 27.0 mmol/L 21.0-32.0 [facility] Globulin (S) [Mass/Vol] 4.1 g/dL 2.2-4.2 [facility] Urea nitrogen/Creatinine [Mass ratio] 21.0 mg/mg 10-20 [facility] Laboratory - Chemistry and C hemistry - challengeOrdered By: Alisha Mcintyre on 10-29-2023 Magnesium [Mass/Vol] 2.3 mg/dL 1.6-2.6 [facility] Laboratory - Drug toxicology Ordered By: Tae Walsh on 10-29-2023 Amphetamines Ql (U) Positive <1000 ng/mL [facility] Benzodiazepines Ql (U) Negative < 200 ng/mL [facility] Cannabinoids Screen Ql (U) Negative < 50 ng/mL [facility] Cocaine Ql (U) Negative < 300 ng/mL [facility] Opiates Ql (U) Negative < 300 ng/mL [facility] Laboratory - Hematology and Cell countsOrdered By: Tae Walsh on 10-29-2023 MCH (RBC) [Entitic mass] 30.7 pg 27.0-32.0 [facility] MCHC (RBC) [Mass/Vol] 32.9 g/dL 32-36 [facility] Nucleated RBC/100 WBC (Bld) [Ratio] 0 % 0-5 [facility] Platelets (Bld) [#/Vol] 338 10*3/uL 150-450 [facility] No Panel InformationOrdered By: Tae Walsh on 10-29-2023 MDMA (Ecstasy) Screen Positive < 500 ng/mL [facility] Urine Barbiturates Screen Negative < 200 ng/mL [facility] Urine Drug Screen Comment [facility] Comment on above: CONFIRMATORY TESTING FOR [...] Methadone Screen Negative < 300 ng/mL [facility] Estimated Creatinine Clearance Calc 92.52 ml/min [facility] Estimated GFR (MDRD) Amer 123 mL/min >60 [facility] Comment on above: GFR Calc Estimated GFR (MDRD) Non-Af Amer 102 mL/min >60 [facility] Comment on above: Non- GFR Calc Ethyl Alcohol Level 5.0 mg/dL [facility] Comment on above: The serum:whole bloo d [...] volume (Bld) [Entitic vol] 9.2 fL 6.2-12.0 [facility] RBC Auto (Bld) [#/Vol]Ordere d By: Tae Walsh on 10-29-2023 RBC (Bld) [#/Vol] 4.72 10*6/uL 4.6-6.2 [facility] Serum or plasma calcium micah urement (mass/volume)Ordered By: Tae Walsh on 10-29-2023 Calcium [Mass/Vol] 9.8 mg/dL 8.5-10.1 [facility] Serum or plasma creatinine m easurement (mass/volume)Ordered By: Tae Walsh on 10-29-2023 Creatinine [Mass/Vol] 0.86 mg/dL 0.70-1.30 [facility] Comment on above: The validity of the calculated GFR & GFRAA in patients over 70 years has not been determined. Clinical correlation is essential. Serum or plasma urea nitroge n measurement (mass/volume)Ordered By: aTe Walsh on 10-29-2023 Urea nitrogen [Mass/Vol] 18 mg/dL 7-18 [facility] Thin prep Papanicolaou smear with manual screeningOrdered By: Tae Walsh on 10-29-2023 Thin prep Papanicolaou smear with manual screening 4.2 g/dL 3.2-5.0 [facility] Thin prep Papanicolaou smear with manual screening 31 U/L 15-37 [facility] Thin prep Papanicolaou smear with manual screening 6 5-15 [facility] Urine phencyclidine (PCP) de tectionOrdered By: Taelacey Walsh on 10-29-2023 Phencyclidine Ql (U) Negative < 25 ng/mL [facility] CNCOon 09-06-2023 CNCO Letter Text [facility] CNOVon 08-28-2023 CNOV Office Visit (GENSWS ) MARKELLMICHAEL APARICIO ([id number]) 1975 M Date Time Provider Department 08/28/23 [...] If you do not have a responsible crew truck driver (family member or friend) with you [...] preparation solution at your local pharmacy [facility] 09/2019 Bowel Preparation Instructions for: Golytely, Nulytely, Trilyte or Colyte (polyethylene glycol 3350 a (more content not included)... [facility] (GENROMELIAS) MICHAEL MCNEILL ([id number]) 1975 M [facility] Date Time Provider Department 08/28/23 LINDA JOSE During your visit today, we recorded the following information about you: Vida Perez 08/28/2023 11:16 AM Signed 09/05/2023 [facility] + 10/03/2023 [facility] Vida Christianson 09/13/2023 9:07 AM Signed Received call from [facility] in regards to patient not being able to be contacted. Number listed for patient rings twice then shows busy. Emergency contact listed is inactive. Will keep trying. Patient scheduled for hernia surgery with Dr. Jose in [place] on 10/03/2023. Colonoscopy was cancelled earlier this month. Vida Perez Please advise [employer] Vida Perez 09/19/2023 4:15 PM Signed Office and [facility] unable to reach patient to go over surgery information and schedule PAT prior to surgery as patients number and emergency contacts number has been disconnected Surgery message sent to [place] to cancel surgery as of now Vida Perez [employer] Allergies As of Date: 08/28/2023 Noted Allergy [...] Status:Closed by BRODERICK JEAN BAPTISTE on 08/06/24 [facility] CNOVon 08-26-2023 CNOV Office Visit (UCWSTR ) MICHAEL MCNEILL ([id number]) 1975 M Date Time Provider Department 08/26/23 9:45 AM HENRI HURLEY [facility] During your visit today, we recorded the following information about you: Temperature Pulse Respiration Blood pressure 98.3 degrees 80/minute 22/minute 133/82 Weight 68 kg Henri Hurley APRN.CERTIFIED RETINAL ANGIOGRAPHER 08/26/2023 11:44 AM Signed Subjective HPI HPI Michael Krystian Osito is a 47 year old male [...] - CONSULT TO GENERAL SURGERY Henri Hurley APRN.CERTIFIED RETINAL ANGIOGRAPHER Referring Provider: SELF [200] Allergies As of Date: 08/26/2023 Noted Allergy Reaction SEASONAL ALLERGIES 08/26/2023 16 - Unknown Date Reviewed: 08/26/2023 Reviewed by: Henri Hurley APRN.CERTIFIED RETINAL ANGIOGRAPHER - Fully Assessed Reason for Visit: Mass [64] Cmt: Right side above testicle for some years pain on and off Primary Visit Diagnosis:Unilateral inguinal hernia without obstruction or gangrene, recurrence not specified [K40.90] Order(s):CONSULT TO GENERAL SURGERY [9011] Order #: [id number]: 1 FUTURE Prescriptions as of 08/26/2023 - OLANZapine (ZYPREXA) 5 mg tablet Take 5 mg by mouth daily at bedtime. Problem List As Of Date: 08/26/2023 (None) Encounter Status:Closed by HENRI HURLEY on 08/26/23 [facility] Absolute lymphocyte countOrd ered By: Graham Messina on 04-26-2023 Lymphocytes Auto (Unsp spec) [#/Vol] 1.11 10*3/uL 0.83-4.51 [facility] Basophil percentageOrdered B y: Alisha White on 04-26-2023 Basophil percentage 3.7 mg/dL 2.5-4.9 [facility] Basophil percentageOrdered B y: Graham Messina on 04-26-2023 Basophils/100 WBC (Bld) 0.8 % 0-1 [facility] Bilirubin [Mass/Vol] 0.40 mg/dL 0.20-1.00 [facility] Comment on above: For patients on eltr ombopag therapy, use of Dimension [place] TBIL is not recommended. Chloride [Moles/Vol] 107 mmol/L 98-107 [facility] Eosinophils/100 WBC (Bld) 14.7 % 0-5 [facility] Glucose [Mass/Vol] 98 mg/dL 74-106 [facility] Neutrophils (Bld) [#/Vol] 2.8 10*3/uL 2.0-7.7 [facility] Neutrophils/100 WBC (Bld) 56.3 % 47-70 [facility] Potassium [Moles/Vol] 4.0 mmol/L 3.5-5.1 [facility] Protein [Mass/Vol] 7.4 g/dL 6.4-8.2 [facility] Sodium [Moles/Vol] 139 mmol/L 136-145 [facility] WBC (Bld) [#/Vol] 5.0 10*3/uL 4.4-11.0 [facility] Blood erythrocytes count (nu mber/volume)Ordered By: Graham Messina on 04-26-2023 RBC (Bld) [#/Vol] 4.12 10*6/uL 4.6-6.2 [facility] Blood hemoglobin measurement (mass/volume)Ordered By: Graham Messina on 04-26-2023 Hemoglobin (Bld) [Mass/Vol] 12.8 g/dL 13.0-16.5 [facility] Blood lymphocytes/100 leukoc ytesOrdered By: Graham Messina on 04-26-2023 Lymphocytes/100 WBC (Bld) 22.0 % 19-41 [facility] Blood monocytes/100 leukocyt esOrdered By: Graham Messina on 04-26-2023 Monocytes/100 WBC (Bld) 6.0 % 0-10 [facility] Blood platelet mean volumeOr dered By: Graham Messina on 04-26-2023 Platelet mean volume (Bld) [Entitic vol] 8.7 fL 6.2-12.0 [facility] Determination of erythrocyte mean corpuscular volume (MCV)Ordered By: Graham Messina on 04-26-2023 MCV (RBC) [Entitic vol] 94.4 fL 80-94 [facility] HIV 1 and HIV-2 antibody ass ay with HIV-1 p24 antigen detectionOrdered By: Alisha Mcintyre on 04-26-2023 HIV 1+2 Ab+HIV1 p24 Ag IA Ql Non-Reactive Nonreactive [facility] Hematocrit Auto (Bld) [Volum e fraction]Ordered By: Graham Messina on 04-26-2023 Hematocrit (Bld) [Volume fraction] 38.9 % 40-54 [facility] Laboratory - Chemistry and C hemistry - challengeOrdered By: Graham Messina on 04-26-2023 ALP [Catalytic activity/Vol] 51 U/L 45-117 [facility] ALT [Catalytic activity/Vol] 43 U/L 16-61 [facility] CO2 [Moles/Vol] 29.0 mmol/L 21.0-32.0 [facility] Globulin (S) [Mass/Vol] 3.9 g/dL 2.2-4.2 [facility] Urea nitrogen/Creatinine [Mass ratio] 23.9 mg/mg 10-20 [facility] Laboratory - Chemistry and C hemistry - challengeOrdered By: Alisha Mcintyre on 04-26-2023 Magnesium [Mass/Vol] 2.0 mg/dL 1.6-2.6 [facility] Laboratory - Drug toxicology Ordered By: Graham Messina on 04-26-2023 Amphetamines Ql (U) Positive <1000 ng/mL [facility] Benzodiazepines Ql (U) Negative < 200 ng/mL [facility] Cannabinoids Screen Ql (U) Negative < 50 ng/mL [facility] Cocaine Ql (U) Negative < 300 ng/mL [facility] Opiates Ql (U) Negative < 300 ng/mL [facility] Laboratory - Hematology and Cell countsOrdered By: Graham Messina on 04-26-2023 Erythrocyte distribution width (RBC) [Entitic vol] 43.1 fL 35.1-43.9 [facility] Erythrocyte distribution width (RBC) [Ratio] 12.5 % 11.6-14.6 [facility] Immature granulocytes/100 WBC (Bld) 0.200 % 0.0-0.9 [facility] Comment on above: IG% - Immature Granu locytes (promyelocytes, myelocytes and metamyelocytes) > 1% indicates that a LEFT SHIFT is Present. MCH (RBC) [Entitic mass] 31.1 pg 27.0-32.0 [facility] Nucleated RBC/100 WBC (Bld) [Ratio] 0 % 0-5 [facility] MCHC Auto (RBC) [Mass/Vol]Or dered By: Graham Messina on 04-26-2023 MCHC (RBC) [Mass/Vol] 32.9 g/dL 32-36 [facility] No Panel InformationOrdered By: Graham Messina on 04-26-2023 MDMA (Ecstasy) Screen Positive < 500 ng/mL [facility] Urine Barbiturates Screen Negative < 200 ng/mL [facility] Urine Drug Screen Comment [facility] Comment on above: CONFIRMATORY TESTING FOR [...] Methadone Screen Negative < 300 ng/mL [facility] Estimated Creatinine Clearance Calc 84.16 ml/min [facility] Estimated GFR (MDRD) Amer 119 mL/min >60 [facility] Comment on above: GFR Calc Estimated GFR (MDRD) Non-Af Amer 99 mL/min >60 [facility] Comment on above: Non- GFR Calc Ethyl Alcohol Level < 3.0 mg/dL [facility] Comment on above: The serum:whole bloo d ethanol ratio is approximately 1.14and varies slightly with hematocrit. Medical Alcohol reference interval and critical value innon-tolerant individuals; 50 - 100 Impairment 100 Intoxication 100 - 250 Severe Poisoning 250 - 400 Deep/possible fatal coma No Panel InformationOrdered By: Alisha Mcintyre on 04-26-2023 Hepatitis B Surface Antigen Non-Reactive Nonreactive [facility] Hepatitis C Antibody Preliminary Reactive Nonre active [facility] Comment on above: Critical Result(s) C alled at: 22:54:59 04/26/2023 by: Kia Bergman. Results read back by same. Non Reactive: < 0.8 Equivocal: >/= 0.8 to < 1.0 Reactive: >/= 1.0The [facility] recommends that a reactive/equivocal HCV antibody result be followed up by the HCV Nucleic Acid Amplificationtest (263462) Miscellaneous Test See comment [facility] Comment on above: TEST RESULT LIMITSHC V RNA Diagnosis, WES HCV RNA, Quantitation 8460 IU/mL HCV RNA detected HCV RNA viral loads >/= 25 IU/mL indicate current HCV infection. HCV RNA, log10 3.927 log10 IU/mLTest Information: The quantitative range of this assay is 15 IU/mL to 100 million IU/mL. TESTING PERFORMED AT [facility]. ORIGINAL REPORT ON FILE IN LAB CONTAINS ADDITIONAL TEST SITE INFORMATION. Platelets bldOrdered By: Valentine Messina on 04-26-2023 Platelets (Bld) [#/Vol] 273 10*3/uL 150-450 [facility] Serum Treponema species anti body detectionOrdered By: Alisha Mcintyre on 04-26-2023 Treponema sp Ab Ql (S) Non-Reactive [facility] Serum hepatitis B virus [place] antibody IgG detectionOrdered By: Alisha Mcintyre on 04-26-2023 HBV surface IgG Ql (S) Reactive [facility] Comment on above: Non Reactive: Incons istent with immunity less than <10 mIU/mL Reactive: Consistent with immunity greater than or equal to 10 mIU/mL Serum or plasma albumin micah urement (mass/volume)Ordered By: Graham Messina on 04-26-2023 Albumin [Mass/Vol] 3.5 g/dL 3.2-5.0 [facility] Serum or plasma albumin/glob ulin mass ratioOrdered By: Graham Messina on 04-26-2023 Albumin/Globulin [Mass ratio] 0.9 {ratio} 0.9-2.4 [facility] Serum or plasma calcium micah urement (mass/volume)Ordered By: Graham Messina on 04-26-2023 Calcium [Mass/Vol] 8.9 mg/dL 8.5-10.1 [facility] Serum or plasma creatinine m easurement (mass/volume)Ordered By: Graham Messina on 04-26-2023 Creatinine [Mass/Vol] 0.88 mg/dL 0.70-1.30 [facility] Comment on above: The validity of the calculated GFR & GFRAA in patients over 70 years has not been determined. Clinical correlation is essential. Serum or plasma urea nitroge n measurement (mass/volume)Ordered By: Graham Messina on 04-26-2023 Urea nitrogen [Mass/Vol] 21 mg/dL 7-18 [facility] Thin prep Papanicolaou smear with manual screeningOrdered By: Graham Messina on 04-26-2023 Thin prep Papanicolaou smear with manual screening 26 U/L 15-37 [facility] Thin prep Papanicolaou smear with manual screening 3 5-15 [facility] Urine phencyclidine (PCP) de tectionOrdered By: Graham Messina on 04-26-2023 Phencyclidine Ql (U) Negative < 25 ng/mL [facility] Absolute lymphocyte countOrd ered By: Dr. De Anda on 12-23-2022 Lymphocytes Auto (Unsp spec) [#/Vol] 1.21 10*3/uL 0.83-4.51 [facility] Basophil percentageOrdered B y: Dr. Mcintyre on 12-23-2022 Basophil percentage 3.5 mg/dL 2.5-4.9 [facility] Basophil percentageOrdered B y: Dr. De Anda on 12-23-2022 Basophils/100 WBC (Bld) 0.7 % 0-1 [facility] Bilirubin [Mass/Vol] 0.30 mg/dL 0.20-1.00 [facility] Comment on above: For patients on eltr ombopag therapy, use of Dimension [place] TBIL is not recommended. Chloride [Moles/Vol] 105 mmol/L 98-107 [facility] Eosinophils/100 WBC (Bld) 7.0 % 0-5 [facility] Glucose [Mass/Vol] 114 mg/dL 74-106 [facility] Comment on above: Fasting Glucose resu lt from 100 to 125 mg/dL suggests IMPAIRED HOMEOSTASIS per A.D.A. criteria. Neutrophils (Bld) [#/Vol] 4.8 10*3/uL 2.0-7.7 [facility] Neutrophils/100 WBC (Bld) 69.3 % 47-70 [facility] Potassium [Moles/Vol] 3.5 mmol/L 3.5-5.1 [facility] Protein [Mass/Vol] 7.4 g/dL 6.4-8.2 [facility] Sodium [Moles/Vol] 139 mmol/L 136-145 [facility] WBC (Bld) [#/Vol] 7.0 10*3/uL 4.4-11.0 [facility] Blood erythrocytes count (nu mber/volume)Ordered By: Dr. De Anda on 12-23-2022 RBC (Bld) [#/Vol] 4.09 10*6/uL 4.6-6.2 [facility] Blood hemoglobin measurement (mass/volume)Ordered By: Dr. De Anda on 12-23-2022 Hemoglobin (Bld) [Mass/Vol] 12.6 g/dL 13.0-16.5 [facility] Blood lymphocytes/100 leukoc ytesOrdered By: Dr. De Anda on 12-23-2022 Lymphocytes/100 WBC (Bld) 17.4 % 19-41 [facility] Blood monocytes/100 leukocyt esOrdered By: Dr. De Anda on 12-23-2022 Monocytes/100 WBC (Bld) 5.3 % 0-10 [facility] Blood platelet mean volumeOr dered By: Dr. De Anda on 12-23-2022 Platelet mean volume (Bld) [Entitic vol] 9.0 fL 6.2-12.0 [facility] Determination of erythrocyte mean corpuscular volume (MCV)Ordered By: Dr. De Anda on 12-23-2022 MCV (RBC) [Entitic vol] 92.2 fL 80-94 [facility] Hematocrit Auto (Bld) [Volum e fraction]Ordered By: Dr. De Anda on 12-23-2022 Hematocrit (Bld) [Volume fraction] 37.7 % 40-54 [facility] Iron measurement (mass/mass) Ordered By: Dr. Mcintyre on 12-23-2022 Iron (Unsp spec) [Mass/Mass] 57 ug/dL 65-175 [facility] Laboratory - Chemistry and C hemistry - challengeOrdered By: Dr. De Anda on 12-23-2022 ALP [Catalytic activity/Vol] 48 U/L 45-117 [facility] ALT [Catalytic activity/Vol] 67 U/L 16-61 [facility] CO2 [Moles/Vol] 25.0 mmol/L 21.0-32.0 [facility] Globulin (S) [Mass/Vol] 3.9 g/dL 2.2-4.2 [facility] Urea nitrogen/Creatinine [Mass ratio] 35.4 mg/mg 10-20 [facility] Laboratory - Chemistry and C hemistry - challengeOrdered By: Dr. Mcintyre on 12-23-2022 Cobalamin (Vitamin B12) [Mass/Vol] 589 pg/mL 211-911 [facility] Magnesium [Mass/Vol] 2.2 mg/dL 1.6-2.6 [facility] Laboratory - Drug toxicology Ordered By: Dr. De Anda on 12-23-2022 Amphetamines Ql (U) Positive <1000 ng/mL [facility] Benzodiazepines Ql (U) Negative < 200 ng/mL [facility] Cannabinoids Screen Ql (U) Negative < 50 ng/mL [facility] Cocaine Ql (U) Negative < 300 ng/mL [facility] Opiates Ql (U) Negative < 300 ng/mL [facility] Laboratory - Hematology and Cell countsOrdered By: Dr. De Anda on 12-23-2022 Erythrocyte distribution width (RBC) [Entitic vol] 42.5 fL 35.1-43.9 [facility] Erythrocyte distribution width (RBC) [Ratio] 12.6 % 11.6-14.6 [facility] Immature granulocytes/100 WBC (Bld) 0.300 % 0.0-0.9 [facility] Comment on above: IG% - Immature Granu locytes (promyelocytes, myelocytes and metamyelocytes) > 1% indicates that a LEFT SHIFT is Present. MCH (RBC) [Entitic mass] 30.8 pg 27.0-32.0 [facility] Nucleated RBC/100 WBC (Bld) [Ratio] 0 % 0-5 [facility] MCHC Auto (RBC) [Mass/Vol]Or dered By: Dr. De Anda on 12-23-2022 MCHC (RBC) [Mass/Vol] 33.4 g/dL 32-36 [facility] No Panel InformationOrdered By: Dr. De Anda on 12-23-2022 Estimated Creatinine Clearance Calc 93.74 ml/min [facility] Estimated GFR (MDRD) Amer 130 mL/min >60 [facility] Comment on above: GFR Calc Estimated GFR (MDRD) Non-Af Amer 107 mL/min >60 [facility] Comment on above: Non- GFR Calc Ethyl Alcohol Level 25.0 mg/dL [facility] Comment on above: The serum:whole bloo d ethanol ratio is approximately 1.14and varies slightly with hematocrit. Medical Alcohol reference interval and critical value innon-tolerant individuals; 50 - 100 Impairment 100 Intoxication 100 - 250 Severe Poisoning 250 - 400 Deep/possible fatal coma MDMA (Ecstasy) Screen Positive < 500 ng/mL [facility] Urine Barbiturates Screen Negative < 200 ng/mL [facility] Urine Drug Screen Comment [facility] Comment on above: CONFIRMATORY TESTING FOR [...] Urine Methadone Screen Negative < 300 ng/mL [facility] No Panel InformationOrdered By: Dr. Mcintyre on 12-23-2022 Total Iron Binding Capacity 335 ug/dL 250-450 [facility] Platelets bldOrdered By: Dr. De Anda on 12-23-2022 Platelets (Bld) [#/Vol] 285 10*3/uL 150-450 [facility] Serum or plasma albumin micah urement (mass/volume)Ordered By: Dr. De Anda on 12-23-2022 Albumin [Mass/Vol] 3.5 g/dL 3.2-5.0 [facility] Serum or plasma albumin/glob ulin mass ratioOrdered By: Dr. De Anda on 12-23-2022 Albumin/Globulin [Mass ratio] 0.9 {ratio} 0.9-2.4 [facility] Serum or plasma calcium micah urement (mass/volume)Ordered By: Dr. De Anda on 12-23-2022 Calcium [Mass/Vol] 8.8 mg/dL 8.5-10.1 [facility] Serum or plasma creatinine m easurement (mass/volume)Ordered By: Dr. De Anda on 12-23-2022 Creatinine [Mass/Vol] 0.82 mg/dL 0.70-1.30 [facility] Comment on above: The validity of the calculated GFR & GFRAA in patients over 70 years has not been determined. Clinical correlation is essential. Serum or plasma ferritin luisito surement (mass/volume)Ordered By: Dr. Mcintyre on 12-23-2022 Ferritin [Mass/Vol] 27 ng/mL 26-388 [facility] Serum or plasma folate measu rement (mass/volume)Ordered By: Dr. Mcintyre on 12-23-2022 Folate [Mass/Vol] 16.10 ng/mL 3.1-55.4 [facility] Serum or plasma iron saturat ion measurement (mass fraction)Ordered By: Dr. Mcintyre on 12-23-2022 Iron saturation [Mass fraction] 17.0 % 15.0-55.0 [facility] Serum or plasma urea nitroge n measurement (mass/volume)Ordered By: Dr. De Anda on 12-23-2022 Urea nitrogen [Mass/Vol] 29 mg/dL 7-18 [facility] Thin prep Papanicolaou smear with manual screeningOrdered By: Dr. De Anda on 12-23-2022 Thin prep Papanicolaou smear with manual screening 49 U/L 15-37 [facility] Thin prep Papanicolaou smear with manual screening 9 5-15 [facility] Urine phencyclidine (PCP) de tectionOrdered By: Dr. De Anda on 12-23-2022 Phencyclidine Ql (U) Negative < 25 ng/mL [facility] Absolute lymphocyte countOrd ered By: Dr. Nieves on 11-03-2022 Lymphocytes Auto (Unsp spec) [#/Vol] 1.20 10*3/uL 0.83-4.51 [facility] Basophil percentageOrdered B y: Dr. Nieves on 11-03-2022 Basophils/100 WBC (Bld) 0.7 % 0-1 [facility] Chloride [Moles/Vol] 107 mmol/L 98-107 [facility] Eosinophils/100 WBC (Bld) 10.8 % 0-5 [facility] Glucose [Mass/Vol] 152 mg/dL 74-106 [facility] Comment on above: Fasting Glucose resu lt greater than or equal to 126 mg/dL suggests DIABETES MELLITUS per A.D.A. criteria. Neutrophils (Bld) [#/Vol] 3.5 10*3/uL 2.0-7.7 [facility] Neutrophils/100 WBC (Bld) 60.9 % 47-70 [facility] Potassium [Moles/Vol] 3.6 mmol/L 3.5-5.1 [facility] Sodium [Moles/Vol] 140 mmol/L 136-145 [facility] WBC (Bld) [#/Vol] 5.7 10*3/uL 4.4-11.0 [facility] Blood erythrocytes count (nu mber/volume)Ordered By: Dr. Nieves on 11-03-2022 RBC (Bld) [#/Vol] 3.80 10*6/uL 4.6-6.2 [facility] Blood hemoglobin measurement (mass/volume)Ordered By: Dr. Nieves on 11-03-2022 Hemoglobin (Bld) [Mass/Vol] 11.8 g/dL 13.0-16.5 [facility] Blood lymphocytes/100 leukoc ytesOrdered By: Dr. Nieves on 11-03-2022 Lymphocytes/100 WBC (Bld) 20.9 % 19-41 [facility] Blood monocytes/100 leukocyt esOrdered By: Dr. Nieves on 11-03-2022 Monocytes/100 WBC (Bld) 6.5 % 0-10 [facility] Blood platelet mean volumeOr dered By: Dr. Nieves on 11-03-2022 Platelet mean volume (Bld) [Entitic vol] 8.6 fL 6.2-12.0 [facility] Determination of erythrocyte mean corpuscular volume (MCV)Ordered By: Dr. Nieves on 11-03-2022 MCV (RBC) [Entitic vol] 93.2 fL 80-94 [facility] Hematocrit Auto (Bld) [Volum e fraction]Ordered By: Dr. Nieves on 11-03-2022 Hematocrit (Bld) [Volume fraction] 35.4 % 40-54 [facility] Laboratory - Chemistry and C hemistry - challengeOrdered By: Dr. Nieves on 11-03-2022 CO2 [Moles/Vol] 29.0 mmol/L 21.0-32.0 [facility] Urea nitrogen/Creatinine [Mass ratio] 27.6 mg/mg 10-20 [facility] Laboratory - Hematology and Cell countsOrdered By: Dr. Nieves on 11-03-2022 Erythrocyte distribution width (RBC) [Entitic vol] 43.3 fL 35.1-43.9 [facility] Erythrocyte distribution width (RBC) [Ratio] 12.6 % 11.6-14.6 [facility] Immature granulocytes/100 WBC (Bld) 0.200 % 0.0-0.9 [facility] Comment on above: IG% - Immature Granu locytes (promyelocytes, myelocytes and metamyelocytes) > 1% indicates that a LEFT SHIFT is Present. MCH (RBC) [Entitic mass] 31.1 pg 27.0-32.0 [facility] Nucleated RBC/100 WBC (Bld) [Ratio] 0 % 0-5 [facility] MCHC Auto (RBC) [Mass/Vol]Or dered By: Dr. Nieves on 11-03-2022 MCHC (RBC) [Mass/Vol] 33.3 g/dL 32-36 [facility] No Panel InformationOrdered By: Dr. Nieves on 11-03-2022 Estimated Creatinine Clearance Calc 88.52 ml/min [facility] Estimated GFR (MDRD) Amer 115 mL/min >60 [facility] Comment on above: GFR Calc Estimated GFR (MDRD) Non-Af Amer 95 mL/min >60 [facility] Comment on above: Non- GFR Calc Platelets bldOrdered By: Dr. Nieves on 11-03-2022 Platelets (Bld) [#/Vol] 321 10*3/uL 150-450 [facility] Serum or plasma calcium micah urement (mass/volume)Ordered By: Dr. Nieves on 11-03-2022 Calcium [Mass/Vol] 8.6 mg/dL 8.5-10.1 [facility] Serum or plasma creatinine m easurement (mass/volume)Ordered By: Dr. Nieves on 11-03-2022 Creatinine [Mass/Vol] 0.91 mg/dL 0.70-1.30 [facility] Comment on above: The validity of the calculated GFR & GFRAA in patients over 70 years has not been determined. Clinical correlation is essential. Serum or plasma urea nitroge n measurement (mass/volume)Ordered By: Dr. Nieves on 11-03-2022 Urea nitrogen [Mass/Vol] 25 mg/dL 7-18 [facility] Thin prep Papanicolaou smear with manual screeningOrdered By: Dr. Nieves on 11-03-2022 Thin prep Papanicolaou smear with manual screening 4 5-15 [facility] Influenza virus A and B and SARS-CoV-2 (COVID-19) Ag panel - Upper respiratory specimOrdered By: Dr. Messina on 09-05-2022 SARS-CoV-2 & FLU Antigen (Rapid) Influenzae A [facility] COVID-19 virus antigen assay Ordered By: Dr. Garcia on 07-26-2022 SARS-CoV-2 (COVID-19) Ag IA.rapid Ql (Resp) [facility] Absolute lymphocyte countOrd ered By: Dr. Hess on 07-15-2022 Lymphocytes Auto (Unsp spec) [#/Vol] 1.71 10*3/uL 0.83-4.51 [facility] Basophil percentageOrdered B y: Dr. Mcintyre on 07-15-2022 Basophil percentage 3.5 mg/dL 2.5-4.9 [facility] Bilirubin [Mass/Vol] 0.40 mg/dL 0.20-1.00 [facility] Comment on above: For patients on eltr ombopag therapy, use of Dimension [place] TBIL is not recommended. Protein [Mass/Vol] 8.5 g/dL 6.4-8.2 [facility] Basophil percentageOrdered B y: Dr. Hess on 07-15-2022 Basophils/100 WBC (Bld) 0.8 % 0-1 [facility] Chloride [Moles/Vol] 108 mmol/L 98-107 [facility] Eosinophils/100 WBC (Bld) 6.0 % 0-5 [facility] Glucose [Mass/Vol] 85 mg/dL 74-106 [facility] Neutrophils (Bld) [#/Vol] 3.6 10*3/uL 2.0-7.7 [facility] Neutrophils/100 WBC (Bld) 59.1 % 47-70 [facility] Potassium [Moles/Vol] 3.8 mmol/L 3.5-5.1 [facility] Sodium [Moles/Vol] 142 mmol/L 136-145 [facility] WBC (Bld) [#/Vol] 6.1 10*3/uL 4.4-11.0 [facility] Blood erythrocytes count (nu mber/volume)Ordered By: Dr. Hess on 07-15-2022 RBC (Bld) [#/Vol] 4.38 10*6/uL 4.6-6.2 [facility] Blood hemoglobin measurement (mass/volume)Ordered By: Dr. Hess on 07-15-2022 Hemoglobin (Bld) [Mass/Vol] 13.8 g/dL 13.0-16.5 [facility] Blood lymphocytes/100 leukoc ytesOrdered By: Dr. Hess on 07-15-2022 Lymphocytes/100 WBC (Bld) 27.9 % 19-41 [facility] Blood monocytes/100 leukocyt esOrdered By: Dr. Hess on 07-15-2022 Monocytes/100 WBC (Bld) 6.0 % 0-10 [facility] Blood platelet mean volumeOr dered By: Dr. Hess on 07-15-2022 Platelet mean volume (Bld) [Entitic vol] 8.9 fL 6.2-12.0 [facility] Determination of erythrocyte mean corpuscular volume (MCV)Ordered By: Dr. Hess on 07-15-2022 MCV (RBC) [Entitic vol] 93.6 fL 80-94 [facility] Direct bilirubinOrdered By: Dr. Mcintyre on 07-15-2022 Bilirubin.direct [Mass/Vol] 0.11 mg/dL 0.00-0.30 [facility] Hematocrit Auto (Bld) [Volum e fraction]Ordered By: Dr. Hess on 07-15-2022 Hematocrit (Bld) [Volume fraction] 41.0 % 40-54 [facility] Laboratory - Chemistry and C hemistry - challengeOrdered By: Dr. Mcintyre on 07-15-2022 ALP [Catalytic activity/Vol] 54 U/L 45-117 [facility] ALT [Catalytic activity/Vol] 63 U/L 16-61 [facility] Globulin (S) [Mass/Vol] 4.4 g/dL 2.2-4.2 [facility] Magnesium [Mass/Vol] 2.3 mg/dL 1.6-2.6 [facility] Laboratory - Chemistry and C hemistry - challengeOrdered By: Dr. Hess on 07-15-2022 CO2 [Moles/Vol] 28.0 mmol/L 21.0-32.0 [facility] Urea nitrogen/Creatinine [Mass ratio] 24.8 mg/mg 10-20 [facility] Laboratory - Drug toxicology Ordered By: Dr. Hess on 07-15-2022 Amphetamines Ql (U) Positive <1000 ng/mL [facility] Benzodiazepines Ql (U) Negative < 200 ng/mL [facility] Cannabinoids Screen Ql (U) Positive < 50 ng/mL [facility] Cocaine Ql (U) Negative < 300 ng/mL [facility] Opiates Ql (U) Negative < 300 ng/mL [facility] Laboratory - Hematology and Cell countsOrdered By: Dr. Hess on 07-15-2022 Erythrocyte distribution width (RBC) [Entitic vol] 43.1 fL 35.1-43.9 [facility] Erythrocyte distribution width (RBC) [Ratio] 12.5 % 11.6-14.6 [facility] Immature granulocytes/100 WBC (Bld) 0.200 % 0.0-0.9 [facility] Comment on above: IG% - Immature Granu locytes (promyelocytes, myelocytes and metamyelocytes) > 1% indicates that a LEFT SHIFT is Present. MCH (RBC) [Entitic mass] 31.5 pg 27.0-32.0 [facility] Nucleated RBC/100 WBC (Bld) [Ratio] 0 % 0-5 [facility] MCHC Auto (RBC) [Mass/Vol]Or dered By: Dr. Hess on 07-15-2022 MCHC (RBC) [Mass/Vol] 33.7 g/dL 32-36 [facility] No Panel InformationOrdered By: Dr. Hess on 07-15-2022 MDMA (Ecstasy) Screen Positive < 500 ng/mL [facility] Urine Barbiturates Screen Negative < 200 ng/mL [facility] Urine Drug Screen Comment [facility] Comment on above: CONFIRMATORY TESTING FOR [...] Urine Methadone Screen Negative < 300 ng/mL [facility] Estimated Creatinine Clearance Calc 79.37 ml/min [facility] Estimated GFR (MDRD) Amer 107 mL/min >60 [facility] Comment on above: GFR Calc Estimated GFR (MDRD) Non-Af Amer 89 mL/min >60 [facility] Comment on above: Non- GFR Calc Ethyl Alcohol Level < 3.0 mg/dL [facility] Comment on above: The serum:whole bloo d ethanol ratio is approximately 1.14and varies slightly with hematocrit. Medical Alcohol reference interval and critical value innon-tolerant individuals; 50 - 100 Impairment 100 Intoxication 100 - 250 Severe Poisoning 250 - 400 Deep/possible fatal coma Platelets bldOrdered By: Dr. Hess on 07-15-2022 Platelets (Bld) [#/Vol] 289 10*3/uL 150-450 [facility] Serum or plasma albumin micah urement (mass/volume)Ordered By: Dr. Mcintyre on 07-15-2022 Albumin [Mass/Vol] 4.1 g/dL 3.2-5.0 [facility] Serum or plasma calcium micah urement (mass/volume)Ordered By: Dr. Hess on 07-15-2022 Calcium [Mass/Vol] 9.1 mg/dL 8.5-10.1 [facility] Serum or plasma creatinine m easurement (mass/volume)Ordered By: Dr. Hess on 07-15-2022 Creatinine [Mass/Vol] 0.97 mg/dL 0.70-1.30 [facility] Comment on above: The validity of the calculated GFR & GFRAA in patients over 70 years has not been determined. Clinical correlation is essential. Serum or plasma urea nitroge n measurement (mass/volume)Ordered By: Dr. Hess on 07-15-2022 Urea nitrogen [Mass/Vol] 24 mg/dL 7-18 [facility] Thin prep Papanicolaou smear with manual screeningOrdered By: Dr. Mcintyre on 07-15-2022 Thin prep Papanicolaou smear with manual screening 32 U/L 15-37 [facility] Thin prep Papanicolaou smear with manual screeningOrdered By: Dr. Hess on 07-15-2022 Thin prep Papanicolaou smear with manual screening 6 5-15 [facility] Urine phencyclidine (PCP) de tectionOrdered By: Dr. Hess on 07-15-2022 Phencyclidine Ql (U) Negative < 25 ng/mL [facility] Absolute lymphocyte counton 05-24-2022 Lymphocytes Auto (Unsp spec) [#/Vol] 1.23 10*3/uL 0.83-4.51 [facility] Work Phone: Basophil percentageon 2021 Basophils/100 WBC (Bld) 0.5 % 0-1 [facility] Work Phone: Bilirubin [Mass/Vol] 0.50 mg/dL 0.20-1.00 [facility] Work Phone: Comment on above: For patients on eltr ombopag therapy, use of Dimension [place] TBIL is not recommended. Chloride [Moles/Vol] 107 mmol/L 98-107 [facility] Work Phone: Eosinophils/100 WBC (Bld) 6.2 % 0-5 [facility] Work Phone: Glucose [Mass/Vol] 117 mg/dL 74-106 [facility] Work Phone: [phone] Comment on above: Fasting Glucose resu lt from 100 to 125 mg/dL suggests IMPAIRED HOMEOSTASIS per A.D.A. criteria. Neutrophils (Bld) [#/Vol] 4.0 10*3/uL 2.0-7.7 [facility] Work Phone: [phone] Neutrophils/100 WBC (Bld) 67.5 % 47-70 [facility] Work Phone: Potassium [Moles/Vol] 3.8 mmol/L 3.5-5.1 [facility] Work Phone: Protein [Mass/Vol] 8.0 g/dL 6.4-8.2 [facility] Work Phone: Sodium [Moles/Vol] 140 mmol/L 136-145 [facility] Work Phone: WBC (Bld) [#/Vol] 6.0 10*3/uL 4.4-11.0 [facility] Work Phone: Blood erythrocytes count (nu mber/volume)on 05-24-2022 RBC (Bld) [#/Vol] 4.22 10*6/uL 4.6-6.2 [facility] Work Phone: Blood hemoglobin measurement (mass/volume)on 05-24-2022 Hemoglobin (Bld) [Mass/Vol] 13.1 g/dL 13.0-16.5 [facility] Work Phone: Blood lymphocytes/100 leukoc yteson 05-24-2022 Lymphocytes/100 WBC (Bld) 20.6 % 19-41 [facility] Work Phone: Blood monocytes/100 leukocyt eson 05-24-2022 Monocytes/100 WBC (Bld) 4.9 % 0-10 [facility] Work Phone: Blood platelet mean volumeon 05-24-2022 Platelet mean volume (Bld) [Entitic vol] 8.5 fL 6.2-12.0 [facility] Work Phone: Determination of erythrocyte mean corpuscular volume (MCV)on 05-24-2022 MCV (RBC) [Entitic vol] 91.0 fL 80-94 [facility] Work Phone: Hematocrit Auto (Bld) [Volum e fraction]on 05-24-2022 Hematocrit (Bld) [Volume fraction] 38.4 % 40-54 [facility] Work Phone: Laboratory - Chemistry and C hemistry - challengeon 05-24-2022 ALP [Catalytic activity/Vol] 57 U/L 45-117 [facility] Work Phone: ALT [Catalytic activity/Vol] 66 U/L 16-61 [facility] Work Phone: CO2 [Moles/Vol] 28.0 mmol/L 21.0-32.0 [facility] Work Phone: Globulin (S) [Mass/Vol] 4.2 g/dL 2.2-4.2 [facility] Work Phone: Urea nitrogen/Creatinine [Mass ratio] 21.8 mg/mg 10-20 [facility] Work Phone: Laboratory - Drug toxicology on 05-24-2022 Amphetamines Ql (U) Positive <1000 ng[facility]: Benzodiazepines Ql (U) Negative < 200 ng/mL [facility] Work Phone: Cannabinoids Screen Ql (U) Negative < 50 ng/mL [facility] Work Phone: Cocaine Ql (U) Negative < 300 ng/mL [facility] Work Phone: Opiates Ql (U) Positive < 300 ng/mL [facility] Work Phone: Laboratory - Hematology and Cell countson 05-24-2022 Erythrocyte distribution width (RBC) [Entitic vol] 41.7 fL 35.1-43.9 [facility] Work Phone: Erythrocyte distribution width (RBC) [Ratio] 12.8 % 11.6-14.6 [facility] Work Phone: Immature granulocytes/100 WBC (Bld) 0.300 % 0.0-0.9 [facility] Work Phone: Comment on above: IG% - Immature Granu locytes (promyelocytes, myelocytes and metamyelocytes) > 1% indicates that a LEFT SHIFT is Present. MCH (RBC) [Entitic mass] 31.0 pg 27.0-32.0 [facility] Work Phone: Nucleated RBC/100 WBC (Bld) [Ratio] 0 % 0-5 [facility] Work Phone: MCHC Auto (RBC) [Mass/Vol]on 05-24-2022 MCHC (RBC) [Mass/Vol] 34.1 g/dL 32-36 [facility] Work Phone: No Panel Informationon 05-24 MDMA (Ecstasy) Screen Positive < 500 ng/mL [facility] Work Phone: Urine Barbiturates Screen Negative < 200 ng/mL [facility] Work Phone: Urine Drug Screen Comment [facility] Work Phone: Comment on above: CONFIRMATORY [...] Methadone Screen Negative < 300 ng/mL [facility] Work Phone: Estimated Creatinine Clearance Calc 70.36 ml/min [facility] Work Phone: Estimated GFR (MDRD) Amer 102 mL/min >60 [facility] Work Phone: Comment on above: GFR Calc Estimated GFR (MDRD) Non-Af Amer 84 mL/min >60 [facility] Work Phone: Comment on above: Non- GFR Calc Ethyl Alcohol Level < 3.0 mg/dL [facility] Work Phone: Comment on above: The serum:whole bloo d ethanol ratio is approximately 1.14and varies slightly with hematocrit. Medical Alcohol reference interval and critical value innon-tolerant individuals; 50 - 100 Impairment 100 Intoxication 100 - 250 Severe Poisoning 250 - 400 Deep/possible fatal coma Platelets bldon 05-24-2022 Platelets (Bld) [#/Vol] 300 10*3/uL 150-450 [facility] Work Phone: Serum or plasma albumin micah urement (mass/volume)on 05-24-2022 Albumin [Mass/Vol] 3.8 g/dL 3.2-5.0 [facility] Work Phone: Serum or plasma albumin/glob ulin mass ratioon 05-24-2022 Albumin/Globulin [Mass ratio] 0.9 {ratio} 0.9-2.4 [facility] Work Phone: Serum or plasma calcium micah urement (mass/volume)on 05-24-2022 Calcium [Mass/Vol] 8.9 mg/dL 8.5-10.1 [facility] Work Phone: Serum or plasma creatinine m easurement (mass/volume)on 05-24-2022 Creatinine [Mass/Vol] 1.01 mg/dL 0.70-1.30 [facility] Work Phone: Comment on above: The validity of the calculated GFR & GFRAA in patients over 70 years has not been determined. Clinical correlation is essential. Serum or plasma urea nitroge n measurement (mass/volume)on 05-24-2022 Urea nitrogen [Mass/Vol] 22 mg/dL 7-18 [facility] Work Phone: Thin prep Papanicolaou smear with manual screeningon 05-24-2022 Thin prep Papanicolaou smear with manual screening 39 U/L 15-37 [facility] Work Phone: Thin prep Papanicolaou smear with manual screening 5 5-15 [facility] Work Phone: Urine phencyclidine (PCP) de tectionon 05-24-2022 Phencyclidine Ql (U) Negative < 25 ng/mL [facility] Work Phone: Absolute lymphocyte counton 03-28-2022 Lymphocytes Auto (Unsp spec) [#/Vol] 1.05 10*3/uL 0.83-4.51 [facility] Work Phone: Basophil percentageon 2021 Basophils/100 WBC (Bld) 0.3 % 0-1 [facility] Work Phone: Chloride [Moles/Vol] 101 mmol/L 98-107 [facility] Work Phone: Eosinophils/100 WBC (Bld) 5.9 % 0-5 [facility] Work Phone: [phone] Glucose [Mass/Vol] 95 mg/dL 74-106 [facility] Work Phone: Neutrophils (Bld) [#/Vol] 6.9 10*3/uL 2.0-7.7 [facility] Work Phone: Neutrophils/100 WBC (Bld) 76.5 % 47-70 [facility] Work Phone: Potassium [Moles/Vol] 3.8 mmol/L 3.5-5.1 [facility] Work Phone: Sodium [Moles/Vol] 136 mmol/L 136-145 [facility] Work Phone: WBC (Bld) [#/Vol] 9.0 10*3/uL 4.4-11.0 [facility] Work [facility]: Blood erythrocytes count (nu mber/volume)on 03-28-2022 RBC (Bld) [#/Vol] 4.54 10*6/uL 4.6-6.2 [facility] Work [facility]: Blood hemoglobin measurement (mass/volume)on 03-28-2022 Hemoglobin (Bld) [Mass/Vol] 14.4 g/dL 13.0-16.5 [facility] Work Phone: Blood lymphocytes/100 leukoc yteson 03-28-2022 Lymphocytes/100 WBC (Bld) 11.7 % 19-41 [facility] Work Phone: Blood monocytes/100 leukocyt eson 03-28-2022 Monocytes/100 WBC (Bld) 5.3 % 0-10 [facility] Work Phone: Blood platelet mean volumeon 03-28-2022 Platelet mean volume (Bld) [Entitic vol] 9.0 fL 6.2-12.0 [facility] Work Phone: Determination of erythrocyte mean corpuscular volume (MCV)on 03-28-2022 MCV (RBC) [Entitic vol] 93.2 fL 80-94 [facility] Work Phone: Hematocrit Auto (Bld) [Volum e fraction]on 03-28-2022 Hematocrit (Bld) [Volume fraction] 42.3 % 40-54 [facility] Work Phone: Laboratory - Chemistry and C hemistry - challengeon 03-28-2022 CO2 [Moles/Vol] 29.0 mmol/L 21.0-32.0 [facility] Work Phone: Urea nitrogen/Creatinine [Mass ratio] 23.5 mg/mg 10-20 [facility] Work Phone: Laboratory - Hematology and Cell countson 03-28-2022 Erythrocyte distribution width (RBC) [Entitic vol] 41.4 fL 35.1-43.9 [facility] Work Phone: Erythrocyte distribution width (RBC) [Ratio] 12.0 % 11.6-14.6 [facility] Work Phone: Immature granulocytes/100 WBC (Bld) 0.300 % 0.0-0.9 [facility] Work Phone: Comment on above: IG% - Immature Granu locytes (promyelocytes, myelocytes and metamyelocytes) > 1% indicates that a LEFT SHIFT is Present. MCH (RBC) [Entitic mass] 31.7 pg 27.0-32.0 [facility] Work Phone: Nucleated RBC/100 WBC (Bld) [Ratio] 0 % 0-5 [facility] Work Phone: MCHC Auto (RBC) [Mass/Vol]on 03-28-2022 MCHC (RBC) [Mass/Vol] 34.0 g/dL 32-36 [facility] Work Phone: No Panel Informationon 03-28 Estimated Creatinine Clearance Calc 83.60 ml/min [facility] Work Phone: Estimated GFR (MDRD) Amer 125 mL/min >60 [facility] Work Phone: Comment on above: GFR Calc Estimated GFR (MDRD) Non-Af Amer 103 mL/min >60 [facility] Work Phone: Comment on above: Non- GFR Calc Platelets bldon 03-28-2022 Platelets (Bld) [#/Vol] 244 10*3/uL 150-450 [facility] Work Phone: Serum or plasma calcium micah urement (mass/volume)on 03-28-2022 Calcium [Mass/Vol] 8.5 mg/dL 8.5-10.1 [facility] Work Phone: Serum or plasma creatinine m easurement (mass/volume)on 03-28-2022 Creatinine [Mass/Vol] 0.85 mg/dL 0.70-1.30 [facility] Work Phone: Comment on above: The validity of the calculated GFR & GFRAA in patients over 70 years has not been determined. Clinical correlation is essential. Serum or plasma urea nitroge n measurement (mass/volume)on 03-28-2022 Urea nitrogen [Mass/Vol] 20 mg/dL 7-18 [facility] Work Phone: Thin prep Papanicolaou smear with manual screeningon 03-28-2022 Thin prep Papanicolaou smear with manual screening 6 5-15 [facility] Work Phone: Laboratory - Microbiology an d Antimicrobial susceptibilityon 03-26-2022 SARS-CoV-2 (COVID-19) RNA WES+probe Ql (Unsp spec) Not detected [facility] Work Phone: No Panel Informationon 03-26 Influenza Types A,B Rapid (Clinic) Not detected [facility] Work Phone: Absolute lymphocyte counton 03-19-2022 Lymphocytes Auto (Unsp spec) [#/Vol] 1.40 10*3/uL 0.83-4.51 [facility] Work Phone: Basophil percentageon 2021 Basophils/100 WBC (Bld) 0.9 % 0-1 [facility] Work Phone: Bilirubin [Mass/Vol] 0.40 mg/dL 0.20-1.00 [facility] Work Phone: Comment on above: For patients on eltr ombopag therapy, use of Dimension [place] TBIL is not recommended. Chloride [Moles/Vol] 107 mmol/L 98-107 [facility] Work Phone: Eosinophils/100 WBC (Bld) 8.8 % 0-5 [facility] Work Phone: Glucose [Mass/Vol] 97 mg/dL 74-106 [facility] Work Phone: Neutrophils (Bld) [#/Vol] 3.4 10*3/uL 2.0-7.7 [facility] Work Phone: Neutrophils/100 WBC (Bld) 60.1 % 47-70 [facility] Work Phone: Potassium [Moles/Vol] 4.5 mmol/L 3.5-5.1 [facility] Work Phone: Comment on above: Moderate Hemolysis, Result may be falsely increased. Protein [Mass/Vol] 8.2 g/dL 6.4-8.2 [facility] Work Phone: Sodium [Moles/Vol] 139 mmol/L 136-145 [facility] Work Phone: WBC (Bld) [#/Vol] 5.7 10*3/uL 4.4-11.0 [facility] Work Phone: Blood erythrocytes count (nu mber/volume)on 03-19-2022 RBC (Bld) [#/Vol] 4.46 10*6/uL 4.6-6.2 [facility] Work Phone: [phone] Blood hemoglobin measurement (mass/volume)on 03-19-2022 Hemoglobin (Bld) [Mass/Vol] 13.9 g/dL 13.0-16.5 [facility] Work Phone: Blood lymphocytes/100 leukoc yteson 03-19-2022 Lymphocytes/100 WBC (Bld) 24.6 % 19-41 [facility] Work Phone: Blood monocytes/100 leukocyt eson 03-19-2022 Monocytes/100 WBC (Bld) 5.4 % 0-10 [facility] Work Phone: Blood platelet mean volumeon 03-19-2022 Platelet mean volume (Bld) [Entitic vol] 9.0 fL 6.2-12.0 [facility] Work Phone: Determination of erythrocyte mean corpuscular volume (MCV)on 03-19-2022 MCV (RBC) [Entitic vol] 92.8 fL 80-94 [facility] Work Phone: [phone] Hematocrit Auto (Bld) [Volum e fraction]on 03-19-2022 Hematocrit (Bld) [Volume fraction] 41.4 % 40-54 [facility] Work Phone: Laboratory - Chemistry and C hemistry - challengeon 03-19-2022 ALP [Catalytic activity/Vol] 61 U/L 45-117 [facility] Work Phone: ALT [Catalytic activity/Vol] 42 U/L 16-61 [facility] Work Phone: CO2 [Moles/Vol] 28.0 mmol/L 21.0-32.0 [facility] Work Phone: Globulin (S) [Mass/Vol] 4.5 g/dL 2.2-4.2 [facility] Work Phone: Urea nitrogen/Creatinine [Mass ratio] 33.6 mg/mg 10-20 [facility] Work Phone: Laboratory - Drug toxicology on 03-19-2022 Amphetamines Ql (U) Positive <1000 ng/mL [facility] Work Phone: Benzodiazepines Ql (U) Negative < 200 ng/mL [facility] Work Phone: Cannabinoids Screen Ql (U) Negative < 50 ng/mL [facility] Work Phone: [phone] Cocaine Ql (U) Negative < 300 ng/mL [facility] Work Phone: Opiates Ql (U) Negative < 300 ng/mL [facility] Work Phone: Laboratory - Hematology and Cell countson 03-19-2022 Erythrocyte distribution width (RBC) [Entitic vol] 40.3 fL 35.1-43.9 [facility] Work Phone: Erythrocyte distribution width (RBC) [Ratio] 11.9 % 11.6-14.6 [facility] Work Phone: Immature granulocytes/100 WBC (Bld) 0.200 % 0.0-0.9 [facility] Work Phone: Comment on above: IG% - Immature Granu locytes (promyelocytes, myelocytes and metamyelocytes) > 1% indicates that a LEFT SHIFT is Present. MCH (RBC) [Entitic mass] 31.2 pg 27.0-32.0 [facility] Work Phone: Nucleated RBC/100 WBC (Bld) [Ratio] 0 % 0-5 [facility] Work Phone: MCHC Auto (RBC) [Mass/Vol]on 03-19-2022 MCHC (RBC) [Mass/Vol] 33.6 g/dL 32-36 [facility] Work Phone: No Panel Informationon 03-19 MDMA (Ecstasy) Screen Positive < 500 ng/mL [facility] Work Phone: Urine Barbiturates Screen Negative < 200 ng/mL [facility] Work Phone: Urine Drug Screen Comment [facility] Work Phone: Comment on above: CONFIRMATORY [...] Methadone Screen Negative < 300 ng/mL [facility] Work Phone: Estimated Creatinine Clearance Calc 83.73 ml/min [facility] Work Phone: Estimated GFR (MDRD) Amer 123 mL/min >60 [facility] Work Phone: Comment on above: GFR Calc Estimated GFR (MDRD) Non-Af Amer 101 mL/min >60 [facility] Work Phone: Comment on above: Non- GFR Calc Ethyl Alcohol Level 4.0 mg/dL [facility] Work Phone: Comment on above: The serum:whole bloo d ethanol ratio is approximately 1.14and varies slightly with hematocrit. Medical Alcohol reference interval and critical value innon-tolerant individuals; 50 - 100 Impairment 100 Intoxication 100 - 250 Severe Poisoning 250 - 400 Deep/possible fatal coma Platelets bldon 03-19-2022 Platelets (Bld) [#/Vol] 301 10*3/uL 150-450 [facility] Work Phone: Serum or plasma albumin micah urement (mass/volume)on 03-19-2022 Albumin [Mass/Vol] 3.7 g/dL 3.2-5.0 [facility] Work Phone: Serum or plasma albumin/glob ulin mass ratioon 03-19-2022 Albumin/Globulin [Mass ratio] 0.8 {ratio} 0.9-2.4 [facility] Work Phone: Serum or plasma calcium micah urement (mass/volume)on 03-19-2022 Calcium [Mass/Vol] 8.6 mg/dL 8.5-10.1 [facility] Work Phone: Serum or plasma creatinine m easurement (mass/volume)on 03-19-2022 Creatinine [Mass/Vol] 0.86 mg/dL 0.70-1.30 [facility] Work Phone: Comment on above: The validity of the calculated GFR & GFRAA in patients over 70 years has not been determined. Clinical correlation is essential. Serum or plasma urea nitroge n measurement (mass/volume)on 03-19-2022 Urea nitrogen [Mass/Vol] 29 mg/dL -18 [facility] Work Phone: Thin prep Papanicolaou smear with manual screeningon 03-19-2022 Thin prep Papanicolaou smear with manual screening 33 U/L 15-37 [facility] Work Phone: Comment on above: Moderate Hemolysis, Result may be falsely increased. Thin prep Papanicolaou smear with manual screening 4 5-15 [facility] Work Phone: Urine phencyclidine (PCP) de tectionon 03-19-2022 Phencyclidine Ql (U) Negative < 25 ng/mL [facility] Work Phone: Absolute lymphocyte counton 02-12-2022 Lymphocytes Auto (Unsp spec) [#/Vol] 1.09 10*3/uL 0.83-4.51 [facility] Work Phone: Basophil percentageon 2021 Basophils/100 WBC (Bld) 0.7 % 0-1 [facility] Work Phone: Chloride [Moles/Vol] 108 mmol/L 98-107 [facility] Work Phone: Eosinophils/100 WBC (Bld) 6.1 % 0-5 [facility] Work Phone: Glucose [Mass/Vol] 96 mg/dL 74-106 [facility] Work Phone: Neutrophils (Bld) [#/Vol] 2.8 10*3/uL 2.0-7.7 [facility] Work Phone: Neutrophils/100 WBC (Bld) 60.8 % 47-70 [facility] Work Phone: Potassium [Moles/Vol] 3.8 mmol/L 3.5-5.1 [facility] Work Phone: Sodium [Moles/Vol] 141 mmol/L 136-145 [facility] Work Phone: WBC (Bld) [#/Vol] 4.6 10*3/uL 4.4-11.0 [facility] Work Phone: Blood erythrocytes count (nu mber/volume)on 02-12-2022 RBC (Bld) [#/Vol] 4.09 10*6/uL 4.6-6.2 [facility] Work Phone: Blood hemoglobin measurement (mass/volume)on 02-12-2022 Hemoglobin (Bld) [Mass/Vol] 13.2 g/dL 13.0-16.5 [facility] Work Phone: Blood lymphocytes/100 leukoc yteson 02-12-2022 Lymphocytes/100 WBC (Bld) 23.9 % 19-41 [facility] Work Phone: Blood monocytes/100 leukocyt eson 02-12-2022 Monocytes/100 WBC (Bld) 8.1 % 0-10 [facility] Work Phone: Blood platelet mean volumeon 02-12-2022 Platelet mean volume (Bld) [Entitic vol] 8.7 fL 6.2-12.0 [facility] Work Phone: Determination of erythrocyte mean corpuscular volume (MCV)on 02-12-2022 MCV (RBC) [Entitic vol] 94.4 fL 80-94 [facility] Work Phone: Hematocrit Auto (Bld) [Volum e fraction]on 02-12-2022 Hematocrit (Bld) [Volume fraction] 38.6 % 40-54 [facility] Work Phone: Laboratory - Chemistry and C hemistry - challengeon 02-12-2022 CO2 [Moles/Vol] 27.0 mmol/L 21.0-32.0 [facility] Work Phone: Urea nitrogen/Creatinine [Mass ratio] 25.9 mg/mg 10-20 [facility] Work Phone: Laboratory - Hematology and Cell countson 02-12-2022 Erythrocyte distribution width (RBC) [Entitic vol] 42.9 fL 35.1-43.9 [facility] Work Phone: Erythrocyte distribution width (RBC) [Ratio] 12.3 % 11.6-14.6 [facility] Work Phone: Immature granulocytes/100 WBC (Bld) 0.400 % 0.0-0.9 [facility] Work Phone: Comment on above: IG% - Immature Granu locytes (promyelocytes, myelocytes and metamyelocytes) > 1% indicates that a LEFT SHIFT is Present. MCH (RBC) [Entitic mass] 32.3 pg 27.0-32.0 [facility] Work Phone: Nucleated RBC/100 WBC (Bld) [Ratio] 0 % 0-5 [facility] Work Phone: MCHC Auto (RBC) [Mass/Vol]on 02-12-2022 MCHC (RBC) [Mass/Vol] 34.2 g/dL 32-36 [facility] Work Phone: No Panel Informationon 02-12 Estimated Creatinine Clearance Calc 87.09 ml/min [facility] Work Phone: Estimated GFR (MDRD) Amer 125 mL/min >60 [facility] Work Phone: Comment on above: GFR Calc Estimated GFR (MDRD) Non-Af Amer 103 mL/min >60 [facility] Work Phone: Comment on above: Non- GFR Calc Platelets bldon 02-12-2022 Platelets (Bld) [#/Vol] 313 10*3/uL 150-450 [facility] Work Phone: Serum or plasma calcium micah urement (mass/volume)on 02-12-2022 Calcium [Mass/Vol] 8.5 mg/dL 8.5-10.1 [facility] Work Phone: Serum or plasma creatinine m easurement (mass/volume)on 02-12-2022 Creatinine [Mass/Vol] 0.85 mg/dL 0.70-1.30 [facility] Work Phone: Comment on above: The validity of the calculated GFR & GFRAA in patients over 70 years has not been determined. Clinical correlation is essential. Serum or plasma urea nitroge n measurement (mass/volume)on 02-12-2022 Urea nitrogen [Mass/Vol] 22 mg/dL 7-18 [facility] Work Phone: Thin prep Papanicolaou smear with manual screeningon 02-12-2022 Thin prep Papanicolaou smear with manual screening 6 5-15 [facility] Work Phone: ED Pat Eduon 08-04-2019 ED [facility] Emergency Department [address], [place] [address] Emergency Department Discharge Instructions MICHAEL MCNEILL, Please [...] None Ordered Procedure(s) and Patient Education(s) : [facility] List (Custom); Asthma, Acute Bronchospasm EMERGENCY SERVICES MEDICATION LIST Lista de Medicaciones de los Servicios de Emergencia Name MICHAEL MCNEILL MRN ([facility])-[id number] Acct# PLEASE READ THE FOLLOWING REGARDING YOUR [...] doses are changed, or new medications (including [id number] products) are added. If you have any [...] UNTIL YOU TALK TO YOUR DOCTOR None [facility] Emergency Department [address] [place] [id number] Emergency Department Discharge Instructions Name: MICHAEL MCNEILL Current Date:08/04/2019 01:15:09 :1975 Primary Physician:Physician, No PCP We would like to thank you for choosing [facility] for your emergency medical needs. We [...] health of those around you. Call the [employer] at 9-915-MPAZ-[place] or the [employer] at [phone] for more information. High blood pressure: Your [...] deadly infections. Discuss this with your child's manager compensation, or Public Health Department. Your family practice doctor can determine if you need pneumonia or flu vaccine. The [facility] Department can be reached at . Substance Abuse Program: Concerns with addiction to alcohol, benzodiazepines (Ativan or Xanax) and Opiates (Heroin, Percocet, OxyContin, Methadone or Fentanyl)? [facility] offers an inpatient Substance Abuse Program [...] outpatient care will be established. Please call [phone] to get help today. Domestic Violence: If [...] suicide hotline, anytime day or night, at 0-169-573-SWTK. Community Cisco Network Architect: You may be contacted by your local fire department for a follow up visit from a community claims clerk. The community claims clerk can help with a home safety check; follow up care, and general home care management. Pharmacy Information: Below is a list of 24 hour pharmacies that we are aware of. We suggest that you call the specific pharmacy for their hours before traveling to a location. Hours may vary on holidays. [facility] [address] [place], [place] [address] [phone] [address], [place] [address] [phone] [address] [place], [place] [address] [phone] [address], [place] [phone] [address] [place], [place] [address] [phone] [address] [place], [place] [phone] [place] [address] [phone] Take all medications as directed. If you need prescription assistance, contact the following agencies: ?? Partnership for Prescription Assistance at or www.pparx.org ?? [place] at or www.Remarkbestrx.org ?? www.USA EXTENDED STAYSRx.Rayspan is a site with many valuable coupons Patient Education Materials MICHAEL MCNEILL has been given the following patient education materials: [facility] Emergency Department [facility]. [facility]. offers comprehensive and integrated primary care medical services. We welcome the opportunity to provide follow-up care for your family, now that you've been discharged from the hospital. We offer transportation and medical interpreter services. If you need either of these services, please let us know when you call to make your appointment and we'll be happy to make these arrangements for you. We count it a privilege to have the opportunity to care for you at any one of our conveniently located health center locations below. [facility]. can provide you with: ?? Family Practice medical care for adults and children including physicals and immunizations ?? and care, FIBERLINE SUPERVISOR, Podiatry and Pediatric services ?? Referrals to specialists when needed ?? Dental, Vision and Prescription services ?? Lab Services such as cholesterol, glucose, sickle cell, lead poisoning, , PAP, and HIV tests ?? Health education and nutritional counseling ?? [facility]. provides health care to the homeless. For further information contact: [facility] [phone] Health Insurance plans accepted by [facility]: [employer] (BCCP), Aetna Insurance, [place] Blue Cross and Blue Shield, Care source, [employer], Medicaid, Medical [place], Medicare, Medicare-[place], [place] and [facility] Please call any location for further information. [facility]. provides services regardless of ability to pay. If you don't have insurance coverage, your cost will be based on your income and family size. [facility] [address] [place] [phone] [facility] [address] [place] [address] [facility] [address] [place] [address] [facility] [address] [address] [facility] [address], [address] [place] [address] [facility]. Administration: [address] [place], [place] [address] [facility]. is funded by the U.S. Department of Health and Human Services as a Federally Qualified [facility] providing primary health care services to individuals and families in the [place] area. Allergy Asthma, Acute Bronchospasm Acute bronchospasm [...] smoke. ???Air pollutants such as dust, household behavioral science chair, hair sprays, aerosol sprays, paint fumes, strong [...] were prescribed any new medicines, let your psychiatry instructor know about the visit and how you [...] 01/03/2008 Document Revised: 09/23/2014 Document Reviewed: 03/26/2014 [employer] Interactive Patient Education ?2016 [employer] <><><><><><><><><><><>< ><><><><><><><><><><><> <><><><><><><><><><> Patient Visit Summary Signature MICHAEL MCNEILL has been given the following list of patient education materials, prescriptions and follow-up instructions: OSITO Cameron JIMMY D, have received the above patient education materials/instructions and have verbalized understanding: Date Time Patient Signature Date Time Provider Signature Normal [facility] XR Chest 2 Viewson 9 XR [...] x-ray after completion of therapy is suggested. [employer] thanks you for the opportunity to care for your patient. Workstation ID: [id number] FINAL REPORT Dictated By: Lima Siddiqi MD 08/04/2019 01:22 Assigned Physician: Lima Siddiqi MD Reviewed and Electronically Signed By: Lima Siddiqi MD 08/04/2019 01:24 Transcribed by: KASIA 08/04/2019 01:22 Technologist: LUCITA Han [facility] Comment on above: Order Comment: Unable to get pt, respiratory in room 08/04/2019 00:59:01 EDT Amphetamine GCMS Confirmon 0 06-07-2018 Amphetamine GCMS Confirm Positive Normal [facility] Comment on above: Result Comment: LC/M S confirmed the presence of:AMPHETAMINEMETHAMPHETAMINEThis Liquid Chromatography Mass Spectrometry (LC/MS/MS) test was developed and its performance characteristics determined by Toxicology Laboratory at [facility].It has not been cleared or approved by the FDA. The laboratory is regulated under CLIA as qualified to perform high-complexity testing. This test is used for clinical purposes. It should not be regarded as investigational or for research. Performed By: #### C BCDFE, LIVPE, C7EDE, ETOHE, TSHE, FT4E ####[place] [address] Drug Panel 10, Urine Medical - UHEon 06-06-2018 Amphetamine/Methamphet amine Positive Normal 500 [facility] Comment on above: Result Comment: Non- forensic purpose, confirmation report to follow. Performed By: #### 1 0DRGE ####[place] [address]#### AMPMS ####[facility] [place] [address], [place] [address]XwjulaChildren'S Hospital Of [facility] [place] [address] Barbiturates NONE DETECTED Normal 200 [facility] Comment on above: Performed By: #### 1 0DRGE ####[address] [address]#### AMPMS ####[facility] [place] [address], [place] [address]QomftiChildren'S Hospital Of [facility] [place] [address] Benzodiazepines NONE DETECTED Normal 200 [facility] Comment on above: Performed By: #### 1 0DRGE ####[address] [address]#### AMPMS ####[facility] [place] [address], [place] [address]NzolvuChildren'S Hospital Of [facility] [place] [address] Buprenorphine NONE DETECTED Normal 5 [facility] Comment on above: Performed By: #### 1 0DRGE ####[address] [address]#### AMPMS ####[facility] [place] [address], [place] [address]FwglitChildren'S Hospital Of Columbus[address] [place] [address] Cannabinoids Screen Ql (U) NONE DETECTED Normal 50 [facility] Comment on above: Performed By: #### 1 0DRGE ####[address] [address]#### AMPMS ####[facility] [place] [address]BdjcbnChildren'S Hospital Of Columbus[address] [place] [address] Cocaine/Metabolites NONE DETECTED Normal 150 [facility] Comment on above: Performed By: #### 1 0DRGE ####[address] [address]#### AMPMS ####[facility] [facility] [address]RofxmtChildren'S Hospital Of Columbus[address] [place] [address], [place] [address] COMMENT Urine: For medical purposes only. Positive results unconfirmed unless otherwise noted. Normal [facility] Comment on above: Performed By: #### 1 0DRGE ####[address] [address]#### AMPMS ####[facility] [place] [address], [place] [address]MxngxuChildren'S Hospital Of [facility] [facility], [place] [address] Fentanyl NONE DETECTED Normal 2 [facility] Comment on above: Performed By: #### 1 0DRGE ####[address] [address]#### AMPMS ####[facility] [place] [address], [place] [address]VweupkChildren'S Hospital Of Columbus[address] [place] [address] Methadone NONE DETECTED Normal 300 [facility] Comment on above: Performed By: #### 1 0DRGE ####[address] [address]#### AMPMS ####[facility] [place] [address], [place] [address]OywouhChildren'S Hospital Of Columbus[address] [place] [address], [place] [address] Opiates NONE DETECTED Normal 300 [facility] Comment on above: Performed By: #### 1 0DRGE ####[address] [address]#### AMPMS ####[facility] [place] [address], [place] [address]NppkxsChildren'S Hospital Of Columbus[address] [place] [address] Oxycodone NONE DETECTED Normal 100 [facility] Comment on above: Performed By: #### 1 0DRGE ####[address] [address]#### AMPMS ####[facility] [place], [place] [address]SminafChildren'S Hospital Of Columbus[address] [place], [place] [address] Urinalysis - Eon 8 Appearance Nom (U) Clear Normal Clear [facility] Comment on above: Performed By: #### U AE ####[place] [address] Bacteria Present Abnormal Absent [facility] Comment on above: Performed By: #### U AE ####[place] [address] Blood Urine Large Abnormal Negative [facility] Comment on above: Performed By: #### U AE ####[place] [address] Color Yellow Normal Yellow [facility] Comment on above: Performed By: #### U AE ####[place] [address] COMMENT URINE Mucus Normal [facility] Comment on above: Performed By: #### U AE ####[place] [address] Glucose Ql (U) Negative Normal Negative [facility] Comment on above: Performed By: #### U AE ####[place] [address] Ketones Ql (U) Trace Abnormal Negative [facility] Comment on above: Performed By: #### U AE ####[place] [address] Leukocyte Esterase Negative Normal Negative [facility] Comment on above: Performed By: #### U AE ####[place] [address] Nitrites Urine Negative Normal Negative [facility] Comment on above: Performed By: #### U AE ####[place] [address] pH Test strip (U) 6.0 [pH] Normal 5.0-7.0 [facility] Comment on above: Performed By: #### U AE ####[place] [address] Protein Urine Negative Normal Negative [facility] Comment on above: Performed By: #### U AE ####[place] [address] RBC LM.HPF #/area (Urine sed) 0-2 Normal 0-2 [facility] Comment on above: Performed By: #### U AE ####[place] [address] Specific [place] urine >1.030 Normal 1.001-1.035 O [facility] Comment on above: Performed By: #### U AE ####[place] [address] Squamous Epithelial 1+ /HPF Normal [facility] Comment on above: Performed By: #### U AE ####[place] [address] Urobilinogen urine 1.0 EU/dL Normal <2.0 [facility] Comment on above: Performed By: #### U AE ####[place] [address] WBC LM.HPF #/area (Urine sed) 0-5 Normal 0-5 [facility] Comment on above: Performed By: #### U AE ####[place] [address] CBC WITH DIFF [place] 018 Abs Baso 0.09 K/uL High <0.09 [facility] Comment on above: Performed By: #### C BCDFE, LIVPE, C7EDE, ETOHE, TSHE, FT4E ####[place] [address] Abs Eos 0.87 K/uL High <0.55 [facility] Comment on above: Performed By: #### C BCDFE, LIVPE, C7EDE, ETOHE, TSHE, FT4E ####[place] [address] Abs [place] 0.55 K/uL Normal 0.30-0.82 [facility] Comment on above: Performed By: #### C BCDFE, LIVPE, C7EDE, ETOHE, TSHE, FT4E ####[place] [address] Basophils/100 WBC Auto (Bld) 0.9 % Normal [facility] Comment on above: Performed By: #### C BCDFE, LIVPE, C7EDE, ETOHE, TSHE, FT4E ####[place] [address] DIFFERENTIAL TYPE Electronic Differential Normal [facility] Comment on above: Performed By: #### C BCDFE, LIVPE, C7EDE, ETOHE, TSHE, FT4E ####[place] [address] Eosinophils/100 WBC Auto (Bld) 8.8 % Normal [facility] Comment on above: Performed By: #### C BCDFE, LIVPE, C7EDE, ETOHE, TSHE, FT4E ####[place] [address] Hematocrit Auto Volume Fraction (Bld) 37.5 % Low 40.1-51.0 [facility] Comment on above: Performed By: #### C BCDFE, LIVPE, C7EDE, ETOHE, TSHE, FT4E ####[place] [address] Hemoglobin mass conc (Bld) 13.0 g/dL Low 13.7-17.5 [facility] Comment on above: Performed By: #### C BCDFE, LIVPE, C7EDE, ETOHE, TSHE, FT4E ####[place] [address] IMMATURE GRANS % 0.3 % Normal [facility] Comment on above: Performed By: #### C BCDFE, LIVPE, C7EDE, ETOHE, TSHE, FT4E ####[place] [address] IMMATURE GRANS ABSOLUTE <0.04 Normal <0.04 [facility] Comment on above: Performed By: #### C BCDFE, LIVPE, C7EDE, ETOHE, TSHE, FT4E ####[place] [address] Lymphocytes Auto #/vol (Bld) 1.17 10*3/uL Low 1.32-3.57 [facility] Comment on above: Performed By: #### C BCDFE, LIVPE, C7EDE, ETOHE, TSHE, FT4E ####[address] [address] Lymphocytes/100 WBC Auto (Bld) 11.9 % Normal [facility] Comment on above: Performed By: #### C BCDFE, LIVPE, C7EDE, ETOHE, TSHE, FT4E ####[place] [address] MCV Auto Entitic volume (RBC) 92.8 fL High 79.0-92.2 [facility] Comment on above: Performed By: #### C BCDFE, LIVPE, C7EDE, ETOHE, TSHE, FT4E ####[place] [address] Mean Cell Hgb 32.2 pg Normal 25.7-32.2 [facility] Comment on above: Performed By: #### C BCDFE, LIVPE, C7EDE, ETOHE, TSHE, FT4E ####[place] [address] Mean Cell Hgb Conc 34.7 g/dL Normal 32.3-36.5 [facility] Comment on above: Performed By: #### C BCDFE, LIVPE, C7EDE, ETOHE, TSHE, FT4E ####[place] [address] Monocytes/100 WBC Auto (Bld) 5.6 % Normal [facility] Comment on above: Performed By: #### C BCDFE, LIVPE, C7EDE, ETOHE, TSHE, FT4E ####[place] [address] NEUTROPHIL SEGMENTED 72.5 % Normal [facility] Comment on above: Performed By: #### C BCDFE, LIVPE, C7EDE, ETOHE, TSHE, FT4E ####[place] [address] Nucleated RBC #/vol (Bld) 0.0 /100 WBC Normal 0.0-0.2 [facility] Comment on above: Performed By: #### C BCDFE, LIVPE, C7EDE, ETOHE, TSHE, FT4E ####[place] [address] Platelet mean volume Auto Entitic volume (Bld) 8.9 fL Low 9.4-12.4 [facility] Comment on above: Performed By: #### C BCDFE, LIVPE, C7EDE, ETOHE, TSHE, FT4E ####[place] [address] Platelets Auto #/vol (Bld) 366 10*3/uL High 163-337 [facility] Comment on above: Performed By: #### C BCDFE, LIVPE, C7EDE, ETOHE, TSHE, FT4E ####[place] [address] RBC Auto #/vol (Bld) 13.4 % Normal 11.6-14.4 [facility] Comment on above: Performed By: #### C BCDFE, LIVPE, C7EDE, ETOHE, TSHE, FT4E ####[place] [address] RBC Auto #/vol (Bld) 4.04 10*6/uL Low 4.63-6.08 [facility] Comment on above: Performed By: #### C BCDFE, LIVPE, C7EDE, ETOHE, TSHE, FT4E ####[place] [address] SEGS + Bands,Absolute 7.16 K/uL High 1.78-5.38 [facility] Comment on above: Performed By: #### C BCDFE, LIVPE, C7EDE, ETOHE, TSHE, FT4E ####[place] [address] WBC Auto #/vol (Bld) 9.87 10*3/uL High 4.23-9.07 [facility] Comment on above: Performed By: #### C BCDFE, LIVPE, C7EDE, ETOHE, TSHE, FT4E ####[place] [address] CHEM 7 EDon 06-05-2018 Anion gap 3 molar conc 14 mmol/L Normal 7-17 [facility] Comment on above: Performed By: #### C BCDFE, LIVPE, C7EDE, ETOHE, TSHE, FT4E ####[place] [address] Chloride molar conc 107 mmol/L Normal 98-108 [facility] Comment on above: Performed By: #### C BCDFE, LIVPE, C7EDE, ETOHE, TSHE, FT4E ####[place] [address] CO2 molar conc 25 mmol/L Normal 22-30 [facility] Comment on above: Performed By: #### C BCDFE, LIVPE, C7EDE, ETOHE, TSHE, FT4E ####[place] [address] Creatinine mass conc 1.05 mg/dL Normal 0.70-1.30 [facility] Comment on above: Performed By: #### C BCDFE, LIVPE, C7EDE, ETOHE, TSHE, FT4E ####[place] [address] Est GFR, >60 Normal >60 [facility] Comment on above: Performed By: #### C BCDFE, LIVPE, C7EDE, ETOHE, TSHE, FT4E ####[place] [address] Est GFR,non >60 Normal >60 [facility] Comment on above: Performed By: #### C BCDFE, LIVPE, C7EDE, ETOHE, TSHE, FT4E ####[place] [address] Glucose mass conc 143 mg/dL High 70-99 [facility] Comment on above: Performed By: #### C BCDFE, LIVPE, C7EDE, ETOHE, TSHE, FT4E ####[place] [address] Osmolality 305 mOsm/kg Normal 278-305 [facility] Comment on above: Performed By: #### C BCDFE, LIVPE, C7EDE, ETOHE, TSHE, FT4E ####[place] [address] Potassium molar conc 3.4 mmol/L Low 3.5-5.0 [facility] Comment on above: Performed By: #### C BCDFE, LIVPE, C7EDE, ETOHE, TSHE, FT4E ####[place] [address] Sodium molar conc 143 mmol/L Normal 133-143 [facility] Comment on above: Performed By: #### C BCDFE, LIVPE, C7EDE, ETOHE, TSHE, FT4E ####[place] [address] Urea nitrogen mass conc 28 mg/dL High 7-22 [facility] Comment on above: Performed By: #### C BCDFE, LIVPE, C7EDE, ETOHE, TSHE, FT4E ####[place] [address] Urea nitrogen/Creatinine mass ratio 27 mg/mg Normal [facility] Comment on above: Performed By: #### C BCDFE, LIVPE, C7EDE, ETOHE, TSHE, FT4E ####[place] [address] Ethyl Alcohol,Blood - [facility] 06-05-2018 Ethyl Alcohol, blood <10 Normal <10 [facility] Comment on above: Result Comment: For Medical Purposes Only, Non forensic Performed By: #### C BCDFE, LIVPE, C7EDE, ETOHE, TSHE, FT4E ####[place] [address] Free T4-[facility] 06-05-2018 T4 free mass conc 1.14 ng/dL Normal 0.89-1.76 [facility] Comment on above: Performed By: #### C BCDFE, LIVPE, C7EDE, ETOHE, TSHE, FT4E ####[place] [address] Lactate,plasma - [facility] 06-05 Lactate,plasma - E 0.9 mmol/L Normal 0.5-2.2 [facility] Comment on above: Performed By: #### L ACTE ####[place] [address] Liver Profile - [facility] 2017 Albumin mass conc 4.5 g/dL Normal 3.5-5.0 [facility] Comment on above: Performed By: #### C BCDFE, LIVPE, C7EDE, ETOHE, TSHE, FT4E ####[place] [address] ALP enzyme act/vol 54 U/L Normal 32-126 [facility] Comment on above: Performed By: #### C BCDFE, LIVPE, C7EDE, ETOHE, TSHE, FT4E ####[place] [address] ALT enzyme act/vol 93 U/L High 10-52 [facility] Comment on above: Performed By: #### C BCDFE, LIVPE, C7EDE, ETOHE, TSHE, FT4E ####[place] [address] AST enzyme act/vol 86 U/L High 14-40 [facility] Comment on above: Performed By: #### C BCDFE, LIVPE, C7EDE, ETOHE, TSHE, FT4E ####[place] [address] Bilirubin mass conc 1.0 mg/dL Normal <1.5 [facility] Comment on above: Performed By: #### C BCDFE, LIVPE, C7EDE, ETOHE, TSHE, FT4E ####[place] [address] Bilirubin.direct mass conc 0.3 mg/dL High <0.3 [facility] Comment on above: Performed By: #### C BCDFE, LIVPE, C7EDE, ETOHE, TSHE, FT4E ####[place] [address] Protein mass conc 7.7 g/dL Normal 6.4-8.3 [facility] Comment on above: Performed By: #### C BCDFE, LIVPE, C7EDE, ETOHE, TSHE, FT4E ####[place] [address] TSH -UHEon 06-05-2018 Thyrotropin Qn 0.741 uIU/mL Normal 0.550-4.780 [facility] Comment on above: Performed By: #### C BCDFE, LIVPE, C7EDE, ETOHE, TSHE, FT4E ####[place] [address] XR CHEST AP PORTABLE EDon XR CHEST [...] represent scarring. Otherwiseno acute cardiopulmonary findings. Normal [facility] COVID-19 virus antigen assay SARS-CoV-2 (COVID-19) Ag IA.rapid Ql (Resp) [facility] Work Phone: Influenza virus A and B and SARS-CoV-2 (COVID-19) Ag panel - Upper respiratory specim SARS-CoV-2 & FLU Antigen (Rapid) Influenzae A [facility] Work Phone: No Panel Information SARS-CoV-2 & FLU Antigen (Rapid) [facility] Work Phone: Vital Signs Date Time Vital Sign Value Performing Clinician Facility 04-16-2025 23:11-0400 Body temperature 98.3 [degF] No Primary Care Physician [facility] 04-16-2025 23:11-0400 Diastolic blood pressure 88 mm[Hg] No Primary Care Physician [facility] 04-16-2025 23:11-0400 Heart rate 82 /min No Primary Care Physician [facility] 04-16-2025 23:11-0400 Respiratory rate 16 /min No Primary Care Physician [facility] 04-16-2025 23:11-0400 SaO2% (BldA) [Mass fraction] 100 % No Primary Care Physician [facility] 04-16-2025 23:11-0400 Systolic blood pressure 128 mm[Hg] No Primary Care Physician [facility] 04-16-2025 21:32-0400 Body height 167.64 cm No Primary Care Physician [facility] 04-16-2025 21:32-0400 Body mass index (BMI) [Ratio] 19.8 kg/m2 No Primary Care Physician [facility] 04-16-2025 21:32-0400 Body weight 55.88 kg No Primary Care Physician [facility] 03-30-2025 10:44-0400 Body height 167.64 cm No Primary Care Physician [facility] 03-30-2025 10:44-0400 Body mass index (BMI) [Ratio] 20.8 kg/m2 No Primary Care Physician [facility] 03-30-2025 10:44-0400 Body temperature 98.4 [degF] No Primary Care Physician [facility] 03-30-2025 10:44-0400 Body weight 58.64 kg No Primary Care Physician [facility] 03-30-2025 10:44-0400 Diastolic blood pressure 78 mm[Hg] No Primary Care Physician [facility] 03-30-2025 10:44-0400 Heart rate 86 /min No Primary Care Physician [facility] 03-30-2025 10:44-0400 Respiratory rate 19 /min No Primary Care Physician [facility] 03-30-2025 10:44-0400 SaO2% (BldA) [Mass fraction] 98 % No Primary Care Physician [facility] 03-30-2025 10:44-0400 Systolic blood pressure 110 mm[Hg] No Primary Care Physician [facility] 03-29-2025 22:40-0400 Body temperature 97.2 [degF] No Primary Care Physician [facility] 03-29-2025 22:40-0400 Diastolic blood pressure 90 mm[Hg] No Primary Care Physician [facility] 03-29-2025 22:40-0400 Heart rate 85 /min No Primary Care Physician [facility] 03-29-2025 22:40-0400 Respiratory rate 16 /min No Primary Care Physician [facility] 03-29-2025 22:40-0400 SaO2% (BldA) [Mass fraction] 100 % No Primary Care Physician [facility] 03-29-2025 22:40-0400 Systolic blood pressure 139 mm[Hg] No Primary Care Physician [facility] 03-29-2025 17:47-0400 Body height 167.64 cm No Primary Care Physician [facility] 03-29-2025 17:47-0400 Body mass index (BMI) [Ratio] 22.9 kg/m2 No Primary Care Physician [facility] 03-29-2025 17:47-0400 Body weight 64.5 kg No Primary Care Physician [facility] 01-19-2025 15:32-0400 Body temperature 98 [degF] No Primary Care Physician [facility] 01-19-2025 15:32-0400 Diastolic blood pressure 75 mm[Hg] No Primary Care Physician [facility] 01-19-2025 15:32-0400 Heart rate 88 /min No Primary Care Physician [facility] 01-19-2025 15:32-0400 Respiratory rate 16 /min No Primary Care Physician [facility] 01-19-2025 15:32-0400 SaO2% (BldA) [Mass fraction] 96 % No Primary Care Physician [facility] 01-19-2025 15:32-0400 Systolic blood pressure 124 mm[Hg] No Primary Care Physician [facility] 01-19-2025 13:46-0400 Body height 167.64 cm No Primary Care Physician [facility] 01-19-2025 13:46-0400 Body mass index (BMI) [Ratio] 20 kg/m2 No Primary Care Physician [facility] 01-19-2025 13:46-0400 Body weight 56.24 kg No Primary Care Physician [facility] 12-13-2024 13:44-0400 Body temperature 96.6 [degF] No Primary Care Physician [facility] 12-13-2024 13:44-0400 Diastolic blood pressure 90 mm[Hg] No Primary Care Physician [facility] 12-13-2024 13:44-0400 Heart rate 88 /min No Primary Care Physician [facility] 12-13-2024 13:44-0400 Respiratory rate 16 /min No Primary Care Physician [facility] 12-13-2024 13:44-0400 SaO2% (BldA) [Mass fraction] 100 % No Primary Care Physician [facility] 12-13-2024 13:44-0400 Systolic blood pressure 148 mm[Hg] No Primary Care Physician [facility] 12-13-2024 11:18-0400 Body height 167.64 cm No Primary Care Physician [facility] 12-13-2024 11:18-0400 Body mass index (BMI) [Ratio] 20.5 kg/m2 No Primary Care Physician [facility] 12-13-2024 11:18-0400 Body weight 57.6 kg No Primary Care Physician [facility] 12-04-2024 16:39-0500 Body mass index (BMI) [Ratio] 24.7 kg/m2 No Primary Care Physician [facility] 12-04-2024 16:39-0500 Body temperature 98.1 [degF] No Primary Care Physician [facility] 12-04-2024 16:39-0500 Body weight 69.39 kg No Primary Care Physician [facility] 12-04-2024 16:39-0500 Diastolic blood pressure 77 mm[Hg] No Primary Care Physician [facility] 12-04-2024 16:39-0500 Heart rate 89 /min No Primary Care Physician [facility] 12-04-2024 16:39-0500 Respiratory rate 16 /min No Primary Care Physician [facility] 12-04-2024 16:39-0500 SaO2% (BldA) [Mass fraction] 98 % No Primary Care Physician [facility] 12-04-2024 16:39-0500 Systolic blood pressure 90 mm[Hg] No Primary Care Physician [facility] 2024 16:49-0500 Body temperature 97.8 [degF] No Primary Care Physician [facility] 2024 16:49-0500 Diastolic blood pressure 82 mm[Hg] No Primary Care Physician [facility] 2024 16:49-0500 Heart rate 96 /min No Primary Care Physician [facility] 2024 16:49-0500 Respiratory rate 20 /min No Primary Care Physician [facility] 2024 16:49-0500 SaO2% (BldA) [Mass fraction] 93 % No Primary Care Physician [facility] 2024 16:49-0500 Systolic blood pressure 135 mm[Hg] No Primary Care Physician [facility] 2024 12:43-0500 Body mass index (BMI) [Ratio] 20.1 kg/m2 No Primary Care Physician [facility] 2024 12:43-0500 Body weight 56.69 kg No Primary Care Physician [facility] 11-20-2024 16:46-0500 Body weight 58.5 kg No Primary Care Physician [facility] 11-20-2024 15:34-0500 Body mass index (BMI) [Ratio] 20.8 kg/m2 No Primary Care Physician [facility] 11-20-2024 15:34-0500 Body temperature 98.2 [degF] No Primary Care Physician [facility] 11-20-2024 15:34-0500 Diastolic blood pressure 81 mm[Hg] No Primary Care Physician [facility] 11-20-2024 15:34-0500 Heart rate 98 /min No Primary Care Physician [facility] 11-20-2024 15:34-0500 Respiratory rate 18 /min No Primary Care Physician [facility] 11-20-2024 15:34-0500 SaO2% (BldA) [Mass fraction] 96 % No Primary Care Physician [facility] 11-20-2024 15:34-0500 Systolic blood pressure 111 mm[Hg] No Primary Care Physician [facility] 11-12-2024 11:04-0500 Heart rate 81 /min No Primary Care Physician [facility] 11-12-2024 11:04-0500 Respiratory rate 14 /min No Primary Care Physician [facility] 11-12-2024 11:00-0500 Diastolic blood pressure 67 mm[Hg] No Primary Care Physician [facility] 11-12-2024 11:00-0500 Inhaled oxygen concentration 25 % No Primary Care Physician [facility] 11-12-2024 11:00-0500 SaO2% (BldA) [Mass fraction] 95 % No Primary Care Physician [facility] 11-12-2024 11:00-0500 Systolic blood pressure 111 mm[Hg] No Primary Care Physician [facility] 11-12-2024 09:42-0500 Body weight 56.1 kg No Primary Care Physician [facility] 11-12-2024 08:00-0500 Body temperature 97.6 [degF] No Primary Care Physician [facility] 11-12-2024 05:15-0500 Body mass index (BMI) [Ratio] 19.8 kg/m2 No Primary Care Physician [facility] 11-11-2024 20:25-0500 Inhaled oxygen flow rate 2 L/min No Primary Care Physician [facility] 10-23-2024 04:00-0500 Body temperature 98.6 [degF] No Primary Care Physician [facility] 10-23-2024 04:00-0500 Diastolic blood pressure 71 mm[Hg] No Primary Care Physician [facility] 10-23-2024 04:00-0500 Heart rate 87 /min No Primary Care Physician [facility] 10-23-2024 04:00-0500 Respiratory rate 16 /min No Primary Care Physician [facility] 10-23-2024 04:00-0500 SaO2% (BldA) [Mass fraction] 94 % No Primary Care Physician [facility] 10-23-2024 04:00-0500 Systolic blood pressure 119 mm[Hg] No Primary Care Physician [facility] 10-22-2024 13:29-0500 Body weight 55 kg No Primary Care Physician [facility] 10-21-2024 20:51-0500 Body mass index (BMI) [Ratio] 19 kg/m2 No Primary Care Physician [facility] 10-21-2024 19:38-0500 Inhaled oxygen flow rate 3 L/min No Primary Care Physician [facility] 10-21-2024 17:05-0500 Inhaled oxygen concentration 40 % No Primary Care Physician [facility] 09-19-2024 19:47-0500 Body temperature 98.1 [degF] No Primary Care Physician [facility] 09-19-2024 19:47-0500 Diastolic blood pressure 81 mm[Hg] No Primary Care Physician [facility] 09-19-2024 19:47-0500 Heart rate 77 /min No Primary Care Physician [facility] 09-19-2024 19:47-0500 Respiratory rate 19 /min No Primary Care Physician [facility] 09-19-2024 19:47-0500 SaO2% (BldA) [Mass fraction] 93 % No Primary Care Physician [facility] 09-19-2024 19:47-0500 Systolic blood pressure 121 mm[Hg] No Primary Care Physician [facility] 09-19-2024 17:47-0500 Body mass index (BMI) [Ratio] 25.3 kg/m2 No Primary Care Physician [facility] 09-19-2024 17:47-0500 Body weight 73.45 kg No Primary Care Physician [facility] 09-07-2024 12:55-0500 Body temperature 98.6 [degF] No Primary Care Physician [facility] 09-07-2024 12:55-0500 Diastolic blood pressure 76 mm[Hg] No Primary Care Physician [facility] 09-07-2024 12:55-0500 Heart rate 78 /min No Primary Care Physician [facility] 09-07-2024 12:55-0500 Respiratory rate 16 /min No Primary Care Physician [facility] 09-07-2024 12:55-0500 SaO2% (BldA) [Mass fraction] 99 % No Primary Care Physician [facility] 09-07-2024 12:55-0500 Systolic blood pressure 126 mm[Hg] No Primary Care Physician [facility] 09-07-2024 11:39-0500 Body mass index (BMI) [Ratio] 20.5 kg/m2 No Primary Care Physician [facility] 09-07-2024 11:39-0500 Body weight 59.42 kg No Primary Care Physician [facility] 10-31-2023 09:19-0500 Body temperature 98.3 [degF] No Primary Care Physician [facility] 10-31-2023 09:19-0500 Diastolic blood pressure 89 mm[Hg] No Primary Care Physician [facility] 10-31-2023 09:19-0500 Heart rate 88 /min No Primary Care Physician [facility] 10-31-2023 09:19-0500 Respiratory rate 18 /min No Primary Care Physician [facility] 10-31-2023 09:19-0500 SaO2% (BldA) [Mass fraction] 100 % No Primary Care Physician [facility] 10-31-2023 09:19-0500 Systolic blood pressure 110 mm[Hg] No Primary Care Physician [facility] 10-29-2023 05:54-0500 Body height 167.64 cm No Primary Care Physician [facility] 10-29-2023 05:54-0500 Body mass index (BMI) [Ratio] 21.5 kg/m2 No Primary Care Physician [facility] 10-29-2023 05:54-0500 Body weight 60.49 kg No Primary Care Physician [facility] 10-29-2023 05:14-0500 Body temperature 96.5 [degF] No Primary Care Physician [facility] 10-29-2023 05:14-0500 Diastolic blood pressure 58 mm[Hg] No Primary Care Physician [facility] 10-29-2023 05:14-0500 Heart rate 100 /min No Primary Care Physician [facility] 10-29-2023 05:14-0500 Respiratory rate 22 /min No Primary Care Physician [facility] 10-29-2023 05:14-0500 SaO2% (BldA) [Mass fraction] 99 % No Primary Care Physician [facility] 10-29-2023 05:14-0500 Systolic blood pressure 124 mm[Hg] No Primary Care Physician [facility] 10-29-2023 04:23-0500 Body height 167.64 cm No Primary Care Physician [facility] 10-29-2023 04:23-0500 Body mass index (BMI) [Ratio] 21.9 kg/m2 No Primary Care Physician [facility] 10-29-2023 04:23-0500 Body weight 61.6 kg No Primary Care Physician [facility] 10-15-2023 11:51-0500 Diastolic blood pressure 91 mm[Hg] No Primary Care Physician [facility] 10-15-2023 11:51-0500 Systolic blood pressure 157 mm[Hg] No Primary Care Physician [facility] 10-15-2023 11:21-0500 Body height 167.64 cm [facility] 10-15-2023 11:21-0500 Body mass index (BMI) [Ratio] 20.9 kg/m2 [facility] 10-15-2023 11:21-0500 Body temperature 96.7 [degF] [facility] 10-15-2023 11:21-0500 Body weight 58.96 kg [facility] 10-15-2023 11:21-0500 Diastolic blood pressure 130 mm[Hg] [facility] 10-15-2023 11:21-0500 Heart rate 52 /min [facility] 10-15-2023 11:21-0500 Respiratory rate 16 /min [facility] 10-15-2023 11:21-0500 SaO2% (BldA) [Mass fraction] 98 % [facility] 10-15-2023 11:21-0500 Systolic blood pressure 168 mm[Hg] [facility] 09-01-2023 01:06-0500 Heart rate 71 /min [facility] 09-01-2023 01:06-0500 Respiratory rate 16 /min [facility] 09-01-2023 01:06-0500 SaO2% (BldA) [Mass fraction] 98 % [facility] 09-01-2023 00:29-0500 Body height 167.64 cm [facility] 09-01-2023 00:29-0500 Body mass index (BMI) [Ratio] 23.3 kg/m2 [facility] 09-01-2023 00:29-0500 Body temperature 96.1 [degF] [facility] 09-01-2023 00:29-0500 Body weight 65.77 kg [facility] 09-01-2023 00:29-0500 Diastolic blood pressure 73 mm[Hg] [facility] 09-01-2023 00:29-0500 Systolic blood pressure 114 mm[Hg] [facility] 08-28-2023 10:33-0500 Body height 170.2 cm Linda Jose MD Work Phone: [facility] 08-28-2023 10:33-0500 Body temperature 97.9 [degF] Linda Jose MD Work Phone: [facility] 08-28-2023 10:33-0500 Body weight 63.87 kg Linda Jose MD Work Phone: [facility] 08-28-2023 10:33-0500 Diastolic blood pressure 84 mm[Hg] Linda Jose MD Work Phone: [facility] 08-28-2023 10:33-0500 Heart rate 109 /min Linda Jose MD Work Phone: [facility] 08-28-2023 10:33-0500 SaO2% (BldA) [Mass fraction] 96 % Linda Jose MD Work Phone: [facility] 08-28-2023 10:33-0500 Systolic blood pressure 130 mm[Hg] Lidna Jose MD Work Phone: [facility] 05-29-2023 00:58-0400 Body height 167.64 cm No Primary Care Physician [facility] 05-29-2023 00:58-0400 Body mass index (BMI) [Ratio] 20.1 kg/m2 No Primary Care Physician [facility] 05-29-2023 00:58-0400 Body temperature 97.9 [degF] No Primary Care Physician [facility] 05-29-2023 00:58-0400 Body weight 56.69 kg No Primary Care Physician [facility] 05-29-2023 00:58-0400 Diastolic blood pressure 81 mm[Hg] No Primary Care Physician [facility] 05-29-2023 00:58-0400 Heart rate 100 /min No Primary Care Physician [facility] 05-29-2023 00:58-0400 Respiratory rate 20 /min No Primary Care Physician [facility] 05-29-2023 00:58-0400 SaO2% (BldA) [Mass fraction] 98 % No Primary Care Physician [facility] 05-29-2023 00:58-0400 Systolic blood pressure 120 mm[Hg] No Primary Care Physician [facility] 04-28-2023 07:58-0400 Heart rate 80 /min No Primary Care Physician [facility] 04-28-2023 05:47-0400 Body temperature 97.5 [degF] No Primary Care Physician [facility] 04-28-2023 05:47-0400 Diastolic blood pressure 79 mm[Hg] No Primary Care Physician [facility] 04-28-2023 05:47-0400 Respiratory rate 16 /min No Primary Care Physician [facility] 04-28-2023 05:47-0400 SaO2% (BldA) [Mass fraction] 98 % No Primary Care Physician [facility] 04-28-2023 05:47-0400 Systolic blood pressure 119 mm[Hg] No Primary Care Physician [facility] 04-27-2023 12:17-0400 Body height 167.64 cm No Primary Care Physician [facility] 04-27-2023 12:17-0400 Body weight 56.69 kg No Primary Care Physician [facility] 04-26-2023 20:56-0400 Body mass index (BMI) [Ratio] 20.1 kg/m2 No Primary Care Physician [facility] 04-26-2023 19:57-0400 Diastolic blood pressure 69 mm[Hg] No Primary Care Physician [facility] 04-26-2023 19:57-0400 Heart rate 79 /min No Primary Care Physician [facility] 04-26-2023 19:57-0400 Respiratory rate 16 /min No Primary Care Physician [facility] 04-26-2023 19:57-0400 SaO2% (BldA) [Mass fraction] 98 % No Primary Care Physician [facility] 04-26-2023 19:57-0400 Systolic blood pressure 105 mm[Hg] No Primary Care Physician [facility] 04-26-2023 19:54-0400 Body temperature 97.9 [degF] No Primary Care Physician [facility] 04-26-2023 16:53-0400 Body height 167.64 cm No Primary Care Physician [facility] 04-26-2023 16:53-0400 Body mass index (BMI) [Ratio] 20.4 kg/m2 No Primary Care Physician [facility] 04-26-2023 16:53-0400 Body weight 57.33 kg No Primary Care Physician [facility] 03-26-2023 00:12-0400 Body temperature 97.6 [degF] No Primary Care Physician [facility] 03-26-2023 00:12-0400 Diastolic blood pressure 78 mm[Hg] No Primary Care Physician [facility] 03-26-2023 00:12-0400 Heart rate 79 /min No Primary Care Physician [facility] 03-26-2023 00:12-0400 Respiratory rate 16 /min No Primary Care Physician [facility] 03-26-2023 00:12-0400 SaO2% (BldA) [Mass fraction] 97 % No Primary Care Physician [facility] 03-26-2023 00:12-0400 Systolic blood pressure 106 mm[Hg] No Primary Care Physician [facility] 03-26-2023 00:10-0400 Body height 170.18 cm No Primary Care Physician [facility] 03-26-2023 00:10-0400 Body mass index (BMI) [Ratio] 19.5 kg/m2 No Primary Care Physician [facility] 03-26-2023 00:10-0400 Body weight 56.69 kg No Primary Care Physician [facility] 02-23-2023 23:30-0400 Body mass index (BMI) [Ratio] 24.3 kg/m2 No Primary Care Physician [facility] 02-23-2023 23:30-0400 Body temperature 98.7 [degF] No Primary Care Physician [facility] 02-23-2023 23:30-0400 Body weight 68.5 kg No Primary Care Physician [facility] 02-23-2023 23:30-0400 Diastolic blood pressure 91 mm[Hg] No Primary Care Physician [facility] 02-23-2023 23:30-0400 Heart rate 85 /min No Primary Care Physician [facility] 02-23-2023 23:30-0400 Respiratory rate 18 /min No Primary Care Physician [facility] 02-23-2023 23:30-0400 SaO2% (BldA) [Mass fraction] 95 % No Primary Care Physician [facility] 02-23-2023 23:30-0400 Systolic blood pressure 130 mm[Hg] No Primary Care Physician [facility] 01-22-2023 15:12-0400 Respiratory rate 14 /min No Primary Care Physician [facility] 01-22-2023 14:07-0400 Body height 167.64 cm No Primary Care Physician [facility] 01-22-2023 14:07-0400 Body mass index (BMI) [Ratio] 21.3 kg/m2 No Primary Care Physician [facility] 01-22-2023 14:07-0400 Body temperature 97 [degF] No Primary Care Physician [facility] 01-22-2023 14:07-0400 Body weight 60 kg No Primary Care Physician [facility] 01-22-2023 14:07-0400 Diastolic blood pressure 82 mm[Hg] No Primary Care Physician [facility] 01-22-2023 14:07-0400 Heart rate 78 /min No Primary Care Physician [facility] 01-22-2023 14:07-0400 SaO2% (BldA) [Mass fraction] 100 % No Primary Care Physician [facility] 01-22-2023 14:07-0400 Systolic blood pressure 120 mm[Hg] No Primary Care Physician [facility] 12-24-2022 07:51-0400 Body temperature 97.5 [degF] No Primary Care Physician [facility] 12-24-2022 07:51-0400 Diastolic blood pressure 77 mm[Hg] No Primary Care Physician [facility] 12-24-2022 07:51-0400 Heart rate 79 /min No Primary Care Physician [facility] 12-24-2022 07:51-0400 Respiratory rate 18 /min No Primary Care Physician [facility] 12-24-2022 07:51-0400 SaO2% (BldA) [Mass fraction] 98 % No Primary Care Physician [facility] 12-24-2022 07:51-0400 Systolic blood pressure 134 mm[Hg] No Primary Care Physician [facility] 12-23-2022 23:29-0400 Body height 167.64 cm No Primary Care Physician [facility] 12-23-2022 23:29-0400 Body mass index (BMI) [Ratio] 19.9 kg/m2 No Primary Care Physician [facility] 12-23-2022 23:29-0400 Body weight 56 kg No Primary Care Physician [facility] 12-15-2022 18:20-0400 Body height 167.64 cm [facility] 12-15-2022 18:20-0400 Body temperature 97.8 [degF] [facility] 12-15-2022 18:20-0400 Diastolic blood pressure 81 mm[Hg] [facility] [facility] 12-15-2022 18:20-0400 Heart rate 91 /min [facility] 12-15-2022 18:20-0400 Respiratory rate 18 /min [facility] 12-15-2022 18:20-0400 SaO2% (BldA) [Mass fraction] 99 % [facility] 12-15-2022 18:20-0400 Systolic blood pressure 126 mm[Hg] [facility] 12-01-2022 23:24-0500 Body height 167.64 cm [facility] 12-01-2022 23:24-0500 Body mass index (BMI) [Ratio] 20.3 kg/m2 [facility] 12-01-2022 23:24-0500 Body temperature 97.6 [degF] [facility] 12-01-2022 23:24-0500 Body weight 57.15 kg [facility] 12-01-2022 23:24-0500 Diastolic blood pressure 70 mm[Hg] [facility] 12-01-2022 23:24-0500 Heart rate 90 /min [facility] 12-01-2022 23:24-0500 Respiratory rate 18 /min [facility] 12-01-2022 23:24-0500 SaO2% (BldA) [Mass fraction] 97 % [facility] 12-01-2022 23:24-0500 Systolic blood pressure 113 mm[Hg] [facility] 11-03-2022 15:46-0500 Diastolic blood pressure 80 mm[Hg] No Primary Care Physician [facility] 11-03-2022 15:46-0500 Heart rate 72 /min No Primary Care Physician [facility] 11-03-2022 15:46-0500 Respiratory rate 16 /min No Primary Care Physician [facility] 11-03-2022 15:46-0500 Systolic blood pressure 124 mm[Hg] No Primary Care Physician [facility] 11-03-2022 15:09-0500 SaO2% (BldA) [Mass fraction] 98 % No Primary Care Physician [facility] 11-03-2022 12:58-0500 Body height 167.64 cm No Primary Care Physician [facility] 11-03-2022 12:58-0500 Body mass index (BMI) [Ratio] 21.9 kg/m2 No Primary Care Physician [facility] 11-03-2022 12:58-0500 Body temperature 98.1 [degF] No Primary Care Physician [facility] 11-03-2022 12:58-0500 Body weight 61.7 kg No Primary Care Physician [facility] 10-23-2022 02:37-0500 Body temperature 98 [degF] No Primary Care Physician [facility] 10-23-2022 02:37-0500 Diastolic blood pressure 81 mm[Hg] No Primary Care Physician [facility] 10-23-2022 02:37-0500 Heart rate 96 /min No Primary Care Physician [facility] 10-23-2022 02:37-0500 Respiratory rate 18 /min No Primary Care Physician [facility] 10-23-2022 02:37-0500 SaO2% (BldA) [Mass fraction] 98 % No Primary Care Physician [facility] 10-23-2022 02:37-0500 Systolic blood pressure 133 mm[Hg] No Primary Care Physician [facility] 10-23-2022 01:44-0500 Body mass index (BMI) [Ratio] 20.6 kg/m2 No Primary Care Physician [facility] 10-23-2022 01:44-0500 Body weight 58 kg No Primary Care Physician [facility] 10-09-2022 14:57-0500 Diastolic blood pressure 85 mm[Hg] No Primary Care Physician [facility] 10-09-2022 14:57-0500 Heart rate 89 /min No Primary Care Physician [facility] 10-09-2022 14:57-0500 Respiratory rate 18 /min No Primary Care Physician [facility] 10-09-2022 14:57-0500 SaO2% (BldA) [Mass fraction] 97 % No Primary Care Physician [facility] 10-09-2022 14:57-0500 Systolic blood pressure 115 mm[Hg] No Primary Care Physician [facility] 10-09-2022 13:25-0500 Body height 167.64 cm No Primary Care Physician [facility] Work Phone: 10-09-2022 13:25-0500 Body mass index (BMI) [Ratio] 20.9 kg/m2 No Primary Care Physician [facility] 10-09-2022 13:25-0500 Body temperature 96.4 [degF] No Primary Care Physician [facility] 10-09-2022 13:25-0500 Body weight 58.96 kg No Primary Care Physician [facility] 09-09-2022 04:23-0500 Heart rate 85 /min No Primary Care Physician [facility] 09-09-2022 04:23-0500 Respiratory rate 18 /min No Primary Care Physician [facility] 09-09-2022 04:23-0500 SaO2% (BldA) [Mass fraction] 96 % No Primary Care Physician [facility] 09-09-2022 01:56-0500 Body temperature 97.6 [degF] No Primary Care Physician [facility] 09-09-2022 01:56-0500 Diastolic blood pressure 85 mm[Hg] No Primary Care Physician [facility] 09-09-2022 01:56-0500 Systolic blood pressure 127 mm[Hg] No Primary Care Physician [facility] 09-09-2022 01:54-0500 Body height 167.64 cm No Primary Care Physician [facility] Work Phone: 09-09-2022 01:54-0500 Body mass index (BMI) [Ratio] 19.6 kg/m2 No Primary Care Physician [facility] 09-09-2022 01:54-0500 Body weight 55.3 kg No Primary Care Physician [facility] 09-05-2022 11:08-0500 Heart rate 108 /min No Primary Care Physician [facility] 09-05-2022 11:08-0500 Respiratory rate 120 /min No Primary Care Physician [facility] 09-05-2022 10:15-0500 Body height 167.64 cm No Primary Care Physician [facility] Work Phone: 09-05-2022 10:15-0500 Body mass index (BMI) [Ratio] 20.9 kg/m2 No Primary Care Physician [facility] 09-05-2022 10:15-0500 Body temperature 100.8 [degF] No Primary Care Physician [facility] 09-05-2022 10:15-0500 Body weight 58.96 kg No Primary Care Physician [facility] 09-05-2022 10:15-0500 Diastolic blood pressure 90 mm[Hg] No Primary Care Physician [facility] 09-05-2022 10:15-0500 SaO2% (BldA) [Mass fraction] 97 % No Primary Care Physician [facility] 09-05-2022 10:15-0500 Systolic blood pressure 119 mm[Hg] No Primary Care Physician [facility] 08-14-2022 08:13-0500 Diastolic blood pressure 90 mm[Hg] No Primary Care Physician [facility] 08-14-2022 08:13-0500 Heart rate 87 /min No Primary Care Physician [facility] 08-14-2022 08:13-0500 Respiratory rate 16 /min No Primary Care Physician [facility] 08-14-2022 08:13-0500 SaO2% (BldA) [Mass fraction] 98 % No Primary Care Physician [facility] 08-14-2022 08:13-0500 Systolic blood pressure 133 mm[Hg] No Primary Care Physician [facility] 08-14-2022 06:50-0500 Body height 167.64 cm No Primary Care Physician [facility] Work Phone: 08-14-2022 06:50-0500 Body mass index (BMI) [Ratio] 20.9 kg/m2 No Primary Care Physician [facility] 08-14-2022 06:50-0500 Body temperature 97.5 [degF] No Primary Care Physician [facility] 08-14-2022 06:50-0500 Body weight 58.96 kg No Primary Care Physician [facility] 07-26-2022 22:29-0400 SaO2% (BldA) [Mass fraction] 98 % No Primary Care Physician [facility] 07-26-2022 21:54-0400 Diastolic blood pressure 84 mm[Hg] No Primary Care Physician [facility] 07-26-2022 21:54-0400 Heart rate 63 /min No Primary Care Physician [facility] 07-26-2022 21:54-0400 Respiratory rate 16 /min No Primary Care Physician [facility] 07-26-2022 21:54-0400 Systolic blood pressure 127 mm[Hg] No Primary Care Physician [facility] 07-26-2022 17:37-0400 Body height 167.64 cm No Primary Care Physician [facility] Work Phone: 07-26-2022 17:37-0400 Body mass index (BMI) [Ratio] 20.9 kg/m2 No Primary Care Physician [facility] 07-26-2022 17:37-0400 Body temperature 98.3 [degF] No Primary Care Physician [facility] 07-26-2022 17:37-0400 Body weight 58.96 kg No Primary Care Physician [facility] 07-18-2022 10:39-0400 Heart rate 85 /min No Primary Care Physician [facility] 07-18-2022 10:39-0400 Respiratory rate 19 /min No Primary Care Physician [facility] 07-18-2022 08:35-0400 SaO2% (BldA) [Mass fraction] 95 % No Primary Care Physician [facility] 07-18-2022 08:24-0400 Body temperature 97.8 [degF] No Primary Care Physician [facility] 07-18-2022 08:24-0400 Diastolic blood pressure 83 mm[Hg] No Primary Care Physician [facility] 07-18-2022 08:24-0400 Systolic blood pressure 112 mm[Hg] No Primary Care Physician [facility] 07-16-2022 10:02-0400 Body weight 55 kg No Primary Care Physician [facility] 07-15-2022 22:43-0400 Body mass index (BMI) [Ratio] 19.5 kg/m2 No Primary Care Physician [facility] 07-15-2022 21:33-0400 Body temperature 97.9 [degF] No Primary Care Physician [facility] Work Phone: 07-15-2022 21:33-0400 Diastolic blood pressure 90 mm[Hg] No Primary Care Physician [facility] Work Phone: 07-15-2022 21:33-0400 Heart rate 83 /min No Primary Care Physician [facility] Work Phone: 07-15-2022 21:33-0400 Respiratory rate 18 /min No Primary Care Physician [facility] Work Phone: 07-15-2022 21:33-0400 SaO2% (BldA) [Mass fraction] 98 % No Primary Care Physician [facility] Work Phone: 07-15-2022 21:33-0400 Systolic blood pressure 159 mm[Hg] No Primary Care Physician [facility] Work Phone: 07-15-2022 20:56-0400 Body height 167.64 cm No Primary Care Physician [facility] Work Phone: 07-15-2022 20:56-0400 Body mass index (BMI) [Ratio] 20.9 kg/m2 No Primary Care Physician [facility] Work Phone: 07-15-2022 20:56-0400 Body weight 58.96 kg No Primary Care Physician [facility] Work Phone: 07-09-2022 07:41-0400 Heart rate 92 /min No Primary Care Physician [facility] 07-09-2022 07:41-0400 SaO2% (BldA) [Mass fraction] 100 % No Primary Care Physician [facility] 07-09-2022 06:37-0400 Respiratory rate 16 /min No Primary Care Physician [facility] 07-09-2022 06:04-0400 Body mass index (BMI) [Ratio] 20.5 kg/m2 No Primary Care Physician [facility] 07-09-2022 06:04-0400 Body temperature 97.6 [degF] No Primary Care Physician [facility] 07-09-2022 06:04-0400 Body weight 59.6 kg No Primary Care Physician [facility] 07-09-2022 06:04-0400 Diastolic blood pressure 114 mm[Hg] No Primary Care Physician [facility] 07-09-2022 06:04-0400 Systolic blood pressure 129 mm[Hg] No Primary Care Physician [facility] 05-26-2022 08:25-0400 Body temperature 96.9 [degF] No Primary Care Physician [facility] Work Phone: 05-26-2022 08:25-0400 Diastolic blood pressure 71 mm[Hg] No Primary Care Physician [facility] Work Phone: 05-26-2022 08:25-0400 Heart rate 87 /min No Primary Care Physician [facility] Work Phone: 05-26-2022 08:25-0400 Respiratory rate 16 /min No Primary Care Physician [facility] Work Phone: 05-26-2022 08:25-0400 SaO2% (BldA) [Mass fraction] 94 % No Primary Care Physician [facility] Work Phone: 05-26-2022 08:25-0400 Systolic blood pressure 95 mm[Hg] No Primary Care Physician [facility] Work Phone: 05-24-2022 10:56-0400 Body height 170.18 cm No Primary Care Physician [facility] Work Phone: 05-24-2022 10:56-0400 Body weight 54.7 kg No Primary Care Physician [facility] Work Phone: 05-24-2022 01:48-0400 Body mass index (BMI) [Ratio] 18.8 kg/m2 No Primary Care Physician [facility] Work Phone: 05-24-2022 00:57-0400 Body temperature 97.6 [degF] No Primary Care Physician [facility] Work Phone: 05-24-2022 00:57-0400 Diastolic blood pressure 70 mm[Hg] No Primary Care Physician [facility] Work Phone: 05-24-2022 00:57-0400 Heart rate 90 /min No Primary Care Physician [facility] Work Phone: 05-24-2022 00:57-0400 Respiratory rate 11 /min No Primary Care Physician [facility] Work Phone: 05-24-2022 00:57-0400 SaO2% (BldA) [Mass fraction] 97 % No Primary Care Physician [facility] Work Phone: 05-24-2022 00:57-0400 Systolic blood pressure 120 mm[Hg] No Primary Care Physician [facility] Work Phone: 05-23-2022 23:21-0400 Body height 170.18 cm No Primary Care Physician [facility] Work Phone: 05-23-2022 23:21-0400 Body mass index (BMI) [Ratio] 18.8 kg/m2 No Primary Care Physician [facility] Work Phone: 05-23-2022 23:21-0400 Body weight 54.43 kg No Primary Care Physician [facility] Work Phone: 03-28-2022 19:52-0400 Diastolic blood pressure 71 mm[Hg] No Primary Care Physician [facility] Work Phone: 03-28-2022 19:52-0400 Heart rate 79 /min No Primary Care Physician [facility] Work Phone: 03-28-2022 19:52-0400 Respiratory rate 16 /min No Primary Care Physician [facility] Work Phone: 03-28-2022 19:52-0400 SaO2% (BldA) [Mass fraction] 97 % No Primary Care Physician [facility] Work Phone: 03-28-2022 19:52-0400 Systolic blood pressure 99 mm[Hg] No Primary Care Physician [facility] Work Phone: 03-28-2022 15:53-0400 Body height 170.18 cm No Primary Care Physician [facility] Work Phone: 03-28-2022 15:53-0400 Body mass index (BMI) [Ratio] 18.8 kg/m2 No Primary Care Physician [facility] Work Phone: 03-28-2022 15:53-0400 Body temperature 98.3 [degF] No Primary Care Physician [facility] Work Phone: 03-28-2022 15:53-0400 Body weight 54.43 kg No Primary Care Physician [facility] Work Phone: 03-26-2022 12:22-0400 Body mass index (BMI) [Ratio] 19.4 kg/m2 No Primary Care Physician [facility] Work Phone: 03-26-2022 12:22-0400 Body temperature 98.4 [degF] No Primary Care Physician [facility] Work Phone: 03-26-2022 12:22-0400 Body weight 56.24 kg No Primary Care Physician [facility] Work Phone: 03-26-2022 12:22-0400 Diastolic blood pressure 74 mm[Hg] No Primary Care Physician [facility] Work Phone: 03-26-2022 12:22-0400 Heart rate 92 /min No Primary Care Physician [facility] Work Phone: 03-26-2022 12:22-0400 Respiratory rate 14 /min No Primary Care Physician [facility] Work Phone: 03-26-2022 12:22-0400 SaO2% (BldA) [Mass fraction] 98 % No Primary Care Physician [facility] Work Phone: 03-26-2022 12:22-0400 Systolic blood pressure 126 mm[Hg] No Primary Care Physician [facility] Work Phone: 03-22-2022 12:18-0400 Body temperature 97.9 [degF] No Primary Care Physician [facility] Work Phone: 03-22-2022 12:18-0400 Diastolic blood pressure 78 mm[Hg] No Primary Care Physician [facility] Work Phone: 03-22-2022 12:18-0400 Heart rate 88 /min No Primary Care Physician [facility] Work Phone: 03-22-2022 12:18-0400 Respiratory rate 13 /min No Primary Care Physician [facility] Work Phone: 03-22-2022 12:18-0400 SaO2% (BldA) [Mass fraction] 99 % No Primary Care Physician [facility] Work Phone: 03-22-2022 12:18-0400 Systolic blood pressure 121 mm[Hg] No Primary Care Physician [facility] Work Phone: 03-20-2022 15:48-0400 Body height 170.18 cm No Primary Care Physician [facility] Work Phone: 03-20-2022 15:48-0400 Body weight 55 kg No Primary Care Physician [facility] Work Phone: 03-19-2022 22:46-0400 Body mass index (BMI) [Ratio] 19 kg/m2 No Primary Care Physician [facility] Work Phone: 03-19-2022 21:51-0400 Body temperature 97.4 [degF] [facility] Work Phone: 03-19-2022 21:51-0400 Diastolic blood pressure 89 mm[Hg] [facility] Work Phone: 03-19-2022 21:51-0400 Heart rate 95 /min [facility] Work Phone: 03-19-2022 21:51-0400 Respiratory rate 16 /min [facility] Work Phone: 03-19-2022 21:51-0400 SaO2% (BldA) [Mass fraction] 99 % [facility] Work Phone: 03-19-2022 21:51-0400 Systolic blood pressure 128 mm[Hg] [facility] Work Phone: 03-19-2022 20:28-0400 Body height 170.18 cm [facility] Work Phone: 03-19-2022 20:28-0400 Body mass index (BMI) [Ratio] 19 kg/m2 [facility] Work Phone: 03-19-2022 20:28-0400 Body weight 55.15 kg [facility] Work Phone: 02-12-2022 20:44-0400 Diastolic blood pressure 96 mm[Hg] [facility] Work Phone: 02-12-2022 20:44-0400 Heart rate 85 /min [facility] Work Phone: 02-12-2022 20:44-0400 Respiratory rate 15 /min [facility] Work Phone: 02-12-2022 20:44-0400 Systolic blood pressure 134 mm[Hg] [facility] Work Phone: 02-12-2022 19:07-0400 Body height 167.64 cm [facility] Work Phone: 02-12-2022 19:07-0400 Body mass index (BMI) [Ratio] 20.1 kg/m2 [facility] Work Phone: 02-12-2022 19:07-0400 Body temperature 97.9 [degF] [facility] Work Phone: 02-12-2022 19:07-040 Body weight 56.69 kg [facility] Work Phone: 02-12-2022 19:07-0400 SaO2% (BldA) [Mass fraction] 98 % [facility] Work Phone: Encounters Encounter Date Encounter Type Care Provider Facility Start: 04-16-2025 Evaluation and management of [facility] Start: 03-30-2025 End: 03-30-2025 Emergency department patient visit No Primary Care Physician -Emergency Department Work Phone: Start: 03-29-2025 End: 03-29-2025 Emergency department patient [...] Non-patient / Non-visit Dr. Graham Tolbert DO [facility] Work Phone: Start: 11-11-2024 Non-patient / Non-visit Dr. Trang Valencia DO [facility] Work Phone: Start: 11-11-2024 ambulatory No Primary Car e Physician Facility:[facility] Start: 11-11-2024 End: 11-12-2024 Evaluation and management of inpatient Dr. Graham Tolbert DO -Intensive Care Unit Work Phone: Start: 10-22-2024 Non-patient / Non-visit Dr. Graham Tolbert DO -[facility] Work Phone: Start: 10-21-2024 End: 10-23-2024 Evaluation and management of inpatient Dr. Graham Tolbert DO -Progressive Care Unit Work Phone: Start: 10-21-2024 ambulatory Graham Tolbert Facility:[facility] Start: 10-21-2024 Non-patient / Non-visit Dr. Troy Monroy MD -[facility] Work Phone: Start: 09-19-2024 End: 09-19-2024 Emergency department patient visit Dr. Julius Matthews DO -Emergency Department Work Phone: Start: 09-07-2024 End: 09-07-2024 Emergency department patient visit Dr. Julius Matthews DO -Emergency Department Work Phone: Start: 08-03-2024 End: 08-03-2024 Emergency department patient visit No Primary Care Physician Facility:[facility] Start: 06-03-2024 End: 06-03-2024 Emergency department patient visit No Primary Care Physician Facility:[facility] Start: 06-02-2024 End: 06-02-2024 Emergency department patient visit Maximilian Bernstein Facility:[facility] Start: 10-31-2023 Non-patient / Non-visit No Primary Care Physician [facility] Work Phone: Start: 10-30-2023 Non-patient / Non-visit No Primary Care Physician [facility] Work Phone: Start: 10-29-2023 End: 10-31-2023 Evaluation and management of inpatient No Primary Care Physician [facility] Work Phone: Start: 10-29-2023 Non-patient / Non-visit No Primary Care Physician [facility] Work Phone: Start: 10-15-2023 End: 10-15-2023 Emergency department patient visit [facility]Emer[facility] Department Work Phone: Start: 09-01-2023 End: 09-01-2023 Emergency department patient visit [facility]Emergency [facility] Work Phone: Start: 08-28-2023 End: 08-06-2024 Telephone encounter Linda Jose MD Work Phone: General Surgery Comment on above: 09/05/2023 COLON MEDI NA + 10/03/2023 RIH [facility] Start: 08-28-2023 End: 08-28-2023 ambulatory LINDA JOSE Facility:[facility] Start: 08-28-2023 End: 08-28-2023 Patient encounter procedure Linda Jose MD Work Phone: General Surgery Comment on above: Right inguinal herni a; Screening for colon cancer Start: 08-26-2023 End: 08-26-2023 ambulatory LINDA JOSE Facility:[facility] Start: 05-29-2023 End: 05-29-2023 Emergency department patient visit No Primary Care Physician [facility]Emergency Department Work Phone: Start: 04-28-2023 Non-patient / Non-visit No Primary Care Physician [facility] Work Phone: Start: 04-27-2023 Non-patient / Non-visit No Primary Care Physician [facility] Work Phone: Start: 04-26-2023 End: 04-28-2023 Evaluation and management of inpatient No Primary Care Physician [facility] 3 Work Phone: Start: 04-26-2023 Non-patient / Non-visit No Primary Care Physician [facility] Work Phone: Start: 03-26-2023 End: 03-26-2023 Emergency department patient visit No Primary Care Physician [facility]-Emergency Department Start: 02-23-2023 End: 02-24-2023 Emergency department patient visit No Primary Care Physician [facility]Emergency Department Start: 01-22-2023 End: 01-22-2023 Emergency department patient visit No Primary Care Physician [facility]Emergency Department Start: 12-24-2022 Non-patient / Non-visit No Primary Care Physician [facility] Start: 12-23-2022 End: 12-24-2022 Evaluation and management of inpatient No Primary Care Physician [facility]Medical Surgical 3 Start: 12-15-2022 End: 12-15-2022 Emergency department patient visit [facility]Emergency Department Start: 12-01-2022 End: 12-02-2022 Emergency department patient visit [facility] Start: 11-03-2022 End: 11-03-2022 Emergency department patient visit No Primary Care Physician [facility]Emergency Department Start: 10-23-2022 End: 10-23-2022 Emergency department patient visit No Primary Care Physician [facility]Emergency Department Start: 10-09-2022 End: 10-09-2022 Emergency department patient visit No Primary Care Physician [facility]Emergency Department Start: 09-09-2022 End: 09-09-2022 Emergency department patient visit No Primary Care Physician [facility]Emergency Department Start: 09-05-2022 End: 09-05-2022 Emergency department patient visit No Primary Care Physician [facility]Emergency Department Start: 08-14-2022 End: 08-14-2022 Emergency department patient visit No Primary Care Physician [facility]Emergency Department Start: 07-26-2022 End: 07-26-2022 Emergency department patient visit No Primary Care Physician [facility]Emergency Department Start: 07-18-2022 Non-patient / Non-visit No Primary Care Physician [facility] Start: 07-17-2022 Non-patient / Non-visit No Primary Care Physician [facility] Start: 07-16-2022 Non-patient / Non-visit No Primary Care Physician [facility] Start: 07-15-2022 End: 07-18-2022 Evaluation and management of inpatient No Primary Care Physician [facility] Surgical 3 Start: 07-09-2022 End: 07-09-2022 Emergency department patient visit No Primary Care Physician [facility]Emergency Department Start: 05-26-2022 Non-patient / Non-visit No Primary Care Physician [facility] Start: 05-25-2022 Non-patient / Non-visit No Primary Care Physician [facility] Start: 05-24-2022 Non-patient / Non-visit No Primary Care Physician [facility] Start: 05-24-2022 End: 05-26-2022 Evaluation and management of inpatient No Primary Care Physician [facility]-Progressive Care Unit Start: 03-28-2022 End: 03-28-2022 Emergency department patient visit No Primary Care Physician [facility]-Emergency Department Start: 03-26-2022 End: 03-26-2022 Patient encounter procedure No Primary Care Physician [facility] Start: 03-22-2022 Non-patient / Non-visit No Primary Care Physician [facility] Start: 03-21-2022 Non-patient / Non-visit No Primary Care Physician [facility] Start: 03-20-2022 Non-patient / Non-visit No Primary Care Physician [facility] Start: 03-19-2022 End: 03-22-2022 [facility] Start: 03-19-2022 Non-patient / Non-visit No Primary Care Physician [facility] Start: 02-12-2022 End: 02-12-2022 Emergency department patient visit [facility]Emergency Department Start: 06-05-2018 End: 06-06-2018 Emergency department patient visit ED PSYCHIATRY TEAM CONSULT [facility] Procedures Date Procedure Procedure Detail Performing Clinician Start: 04-16-2025 Estimated creatinine clearance No Primary Care Physician Start: 03-29-2025 X-ray of chest, PA a [...] Care Physician Viral antigen assay No Prima Care Physician Plan of Treatment Date Care Activity Detail Author Start: 11-03-2032 Urine microalbumin profile DTaP,Tdap,Td Vaccine (3 - Td or Tdap) [facility] Start: 04-16-2025 Urinalysis complete panel - Urine [facility] Start: 04-16-2025 Admission procedure [facility] Start: 04-16-2025 Verification routine [facility] Start: 04-16-2025 Hospital admission, emergency, from emergency room, medical nature [facility] Start: 04-16-2025 [facility] Start: 03-30-2025 [facility] Start: 03-29-2025 [facility] Start: 03-29-2025 [facility] Start: 01-19-2025 [facility] Start: 12-13-2024 [facility] Start: 2024 [facility] Start: 2024 [facility] Start: 11-20-2024 [facility] Start: 11-12-2024 Patient discharge [facility] Start: 11-12-2024 End: 11-12-2024 [facility] Start: 11-12-2024 Care regimes management [facility] Start: 11-12-2024 Notification of physician [facility] Start: 11-11-2024 Assessment of risk o f venous thromboembolism [facility] Start: 11-11-2024 Catheterization of vein [facility] Start: 11-11-2024 Continuous pulse oximetry [facility] Start: 11-11-2024 Elevation of head of bed [facility] Start: 11-11-2024 Incentive spirometry [facility] Start: 11-11-2024 Inhalation therapy procedure [facility] Start: 11-11-2024 Insertion of cathete r into peripheral vein [facility] Start: 11-11-2024 Measuring intake and output [facility] Start: 11-11-2024 Oxygen therapy [facility] Start: 11-11-2024 Patient referral to dietitian [facility] Start: 11-11-2024 Physiotherapy of chest [facility] Start: 11-11-2024 Providing care accor ding to [facility] Start: 11-11-2024 Referral to service [facility] Start: 11-11-2024 Tobacco use cessatio n education [facility] Start: 11-11-2024 Vital signs measurements [facility] Start: 11-11-2024 End: 11-11-2024 [facility] Start: 11-11-2024 Following clinical pathway protocol [facility] Start: 11-11-2024 Admission procedure [facility] Start: 11-11-2024 Consultation [facility] Start: 11-11-2024 Dual pressure sponta neous ventilation support [facility] Start: 11-11-2024 Patient referral to [facility] Start: 10-22-2024 Patient discharge [facility] Start: 10-22-2024 Physiotherapy of chest [facility] Start: 10-21-2024 Following clinical pathway protocol [facility] Start: 10-21-2024 End: 10-21-2024 [facility] Start: 10-21-2024 Ambulation without limitation [facility] Start: 10-21-2024 Assessment of risk o f venous thromboembolism [facility] Start: 10-21-2024 Inhalation therapy procedure [facility] Start: 10-21-2024 Insertion of cathete r into peripheral vein [facility] Start: 10-21-2024 Measuring intake and output [facility] Start: 10-21-2024 Oxygen therapy [facility] Start: 10-21-2024 Providing care accor ding to [facility] Start: 10-21-2024 Referral to service [facility] Start: 10-21-2024 Admission procedure [facility] Start: 10-21-2024 Consultation [facility] Start: 10-21-2024 [facility] Start: 09-19-2024 [facility] Start: 09-19-2024 [facility] Start: 09-07-2024 End: 09-07-2024 [facility] Start: 06-02-2024 Covid-19 Vaccine ( season) Covid-19 Vaccine ( season) [facility] Start: 06-02-2024 Influenza vaccination Influenza Vacc ine (#1) [facility] Start: 10-31-2023 Patient discharge [facility] Start: 10-29-2023 Assessment of risk o f venous thromboembolism [facility] Start: 10-29-2023 Inhalation therapy procedure [facility] Start: 10-29-2023 Introduction of urin mainor catheter [facility] Start: 10-29-2023 Notification of physician [facility] Start: 10-29-2023 Provision of activit y privileges [facility] Start: 10-29-2023 Referral to service [facility] Start: 10-29-2023 Vital signs measurements [facility] Start: 10-29-2023 End: 10-29-2023 [facility] Start: 10-29-2023 Following clinical pathway protocol [facility] Start: 10-29-2023 Hospital admission, emergency, from emergency room, medical nature [facility] Start: 10-29-2023 Admission procedure [facility] Start: 10-29-2023 [facility] Start: 10-15-2023 [facility] Start: 09-01-2023 [facility] Start: 06-02-2023 Covid-19 Vaccine ( season) Covid-19 Vaccine ( season) [facility] Start: 06-02-2023 Influenza vaccination Influenza Vacc ine (#1) [facility] Start: 04-28-2023 Patient discharge [facility] Start: 04-27-2023 [facility] Start: 04-26-2023 Following clinical pathway protocol [facility] Start: 04-26-2023 Assessment of risk o f venous thromboembolism [facility] Start: 04-26-2023 Inhalation therapy procedure [facility] Start: 04-26-2023 Introduction of urin mainor catheter [facility] Start: 04-26-2023 Notification of physician [facility] Start: 04-26-2023 Oxygen therapy [facility] Start: 04-26-2023 Provision of activit y privileges [facility] Start: 04-26-2023 Referral to service [facility] Start: 04-26-2023 Tobacco use cessatio n education [facility] Start: 04-26-2023 Vital signs measurements [facility] Start: 04-26-2023 [facility] Start: 04-26-2023 Admission procedure [facility] Start: 04-26-2023 Hepatitis B surface antigen measurement [facility] Start: 04-26-2023 Hepatitis C antibody measurement [facility] Start: 04-26-2023 Procedure [facility] Start: 04-26-2023 Patient referral to dietitian [facility] Start: 12-24-2022 Patient discharge [facility] Start: 12-23-2022 Assessment of risk o f venous thromboembolism [facility] Start: 12-23-2022 Inhalation therapy procedure [facility] Start: 12-23-2022 Introduction of urin mainor catheter [facility] Start: 12-23-2022 Notification of physician [facility] Start: 12-23-2022 Oxygen therapy [facility] Start: 12-23-2022 Provision of activit y privileges [facility] Start: 12-23-2022 Referral to service [facility] Start: 12-23-2022 Vital signs measurements [facility] Start: 12-23-2022 [facility] Start: 12-23-2022 Following clinical pathway protocol [facility] Start: 12-23-2022 Measurement of occul t blood in stool specimen using immunoassay [facility] Start: 12-23-2022 Admission procedure [facility] Start: 12-23-2022 Vitamin B12 measurement [facility] Start: 12-23-2022 Patient referral to dietitian [facility] Start: 11-03-2022 Simple repair f/e/e/ n/l/m 2.5cm/< RPR F/E/E/N/L/M 2.5 CM/< [facility] Start: 10-02-2022 Depression Assessment Depression Ass [facility] Start: 07-26-2022 Inhalation therapy procedure [facility] Start: 07-18-2022 Patient discharge [facility] Start: 07-16-2022 Following clinical pathway protocol [facility] Start: 07-15-2022 Assessment of risk o f venous thromboembolism [facility] Start: 07-15-2022 Fall prevention [facility] Start: 07-15-2022 Inhalation therapy procedure [facility] Start: 07-15-2022 Insertion of cathete r into peripheral vein [facility] Start: 07-15-2022 Introduction of urin mainor catheter [facility] Start: 07-15-2022 Notification of physician [facility] Start: 07-15-2022 Providing care accor ding to standard [facility] Start: 07-15-2022 Provision of activit y privileges [facility] Start: 07-15-2022 Referral to service [facility] Start: 07-15-2022 Tobacco use cessatio n education [facility] Start: 07-15-2022 Vital signs measurements [facility] Start: 07-15-2022 [facility] Start: 07-15-2022 Admission procedure [facility] Start: 07-15-2022 Verification routine [facility] Work Phone: Start: 07-15-2022 [facility] Work Phone: Start: 07-15-2022 Patient referral to dietitian [facility] Start: 07-09-2022 Pressurized/nonpress urize d inhalation treatment AIRWAY INHALATION TREATMENT [facility] Start: 05-26-2022 Patient discharge [facility] Work Phone: Start: 05-24-2022 Provision of activit y privileges [facility] Work Phone: Start: 05-24-2022 Assessment of risk o f venous thromboembolism [facility] Work Phone: Start: 05-24-2022 Insertion of cathete r into peripheral vein [facility] Work Phone: Start: 05-24-2022 Providing care accor ding to standard [facility] Work Phone: Start: 05-24-2022 [facility] Work Phone: Start: 05-24-2022 Following clinical pathway protocol [facility] Work Phone: Start: 05-24-2022 Verification routine [facility] Work Phone: Start: 05-24-2022 Admission procedure [facility] Work Phone: Start: 05-24-2022 Patient referral to dietitian [facility] Work Phone: Start: 03-28-2022 [facility] Work Phone: Start: 03-22-2022 Patient discharge [facility] Work Phone: Start: 03-19-2022 Following clinical pathway protocol [facility] Work Phone: Start: 03-19-2022 Assessment of risk o f venous thromboembolism [facility] Work Phone: Start: 03-19-2022 Catheterization of vein [facility] Work Phone: Start: 03-19-2022 Insertion of cathete r into peripheral vein [facility] Work Phone: Start: 03-19-2022 Providing care accor ding to standard [facility] Work Phone: Start: 03-19-2022 Referral to service [facility] Work Phone: Start: 03-19-2022 [facility] Work Phone: Start: 03-19-2022 Admission procedure [facility] Work Phone: Start: 03-19-2022 Verification routine [facility] Work Phone: Start: 03-19-2022 Patient referral to dietitian [facility] Work Phone: Start: 02-12-2022 Patient discharge [facility] Work Phone: Start: 2020 Cologuard (FIT-DNA) Cologuard (FIT-D NA) [facility] Start: 2020 Colonoscopy Colonoscopy [facility] Start: 2020 Colorectal Cancer Screening Colorectal Cancer Screening [facility] Start: [address] [facility] Start: 2020 Diabetes Screening Diabetes Screenin g [facility] Start: 2020 Fecal Occult Blood Fecal Occult Bloo d [facility] Start: 2020 Screening for malign ant neoplasm of colon [facility] Start: 2020 Sigmoidoscopy Sigmoidoscopy [facility] Start: 2010 Lipid 1996 panel - S davi or Plasma Lipid Screening [facility] Start: 2010 Lipid panel Lipid Screening [facility] Start: 1994 Hepatitis B Vaccine (1 of 3 - 19+ 3-dose series) Hepatitis B Vaccine (1 of 3 - 19+ 3-dose series) [facility] Start: 1993 Anxiety Screening Anxiety Screening [facility] Start: 1993 Depression Screening Depression Scre ening [facility] Start: 1993 Hepatitis C Screening Hepatitis C [facility] Start: 1993 Hepatitis C screening Hepatitis C [facility] Start: 1993 HIV Screening HIV Screening [facility] Start: 1993 HIV screening HIV Screening [facility] Start: 1975 Hepatitis B Vaccine (1 of 3 - 3-dose series) Hepatitis B Vaccine (1 of 3 - 3-dose series) [facility] Amphetamine [Mass/vo lume] in Urine [facility] Amphetamines [Presen ce] in Urine by Screen method >1000 ng/mL [facility] Benzodiazepine measurement, urine [facility] Benzodiazepine measurement, urine [facility] Bilirubin measuremen t, urine [facility] Cocaine measurement, urine [facility] Cocaine measurement, urine [facility] fentaNYL [Presence] in Urine by Screen method [facility] Hemoglobin [Presence ] in Urine [facility] Hepatitis B virus bazan rface IgG Ab [Presence] in Serum [facility] HIV 1+2 Ab+HIV1 p24 Ag [Presence] in Serum or Plasma by Immunoassay [facility] Magnesium measurement [facility] Measurement of 3,4-methylenedioxymethamp hetamine in urine [facility] Measurement of keton es in urine using dipstick [facility] Methadone measuremen t, urine [facility] Methadone measuremen t, urine [facility] Microscopic urinalysis [facility] Patient Education [facility] Work Phone: Patient referral [facility] Work Phone: PCR for Hepatitis C [facility] pH of Urine [facility] pH of Urine [facility] Phencyclidine [Prese nce] in Urine [facility] Phencyclidine [Prese nce] in Urine [facility] End: 08-28-2024 Screening colonoscopy COLONOSCOPY SCREENING Endoscopy Routine Screening for colon cancer 1 Occurrences starting 08/28/2023 until 08/28/2024 [facility] Work Phone: Comment on above: 1 Occurrences starti ng 08/28/2023 until 08/28/2024 Specific gravity of Urine [facility] Treponema sp Ab [Presence] in Serum [facility] Troponin T.cardiac [Mass/volume] in Serum or Plasma by High sensitivity method [facility] Urine barbiturate measurement [facility] Urine blood test [facility] Urine cannabinoid measurement [facility] Urine cannabinoid measurement [facility] Urine dipstick for glucose [facility] Urine dipstick for leukocyte esterase [facility] Urine dipstick for nitrite [facility] Urine dipstick for protein [facility] Urine examination [facility] Urine microscopy: epithelial cells [facility] Urine Microscopy: wh ite cells [facility] Urine opiate measurement [facility] Urine opiate measurement [facility] Urobilinogen [Presen ce] in Urine [facility] Immunizations Immunization Date Immunization Notes Care Provider Fa nicholasty 10-21-2024 influenza, injectabl e, quadrivalent, preservative free No Primary Care Physician [facility] 11-03-2022 tetanus toxoid, redu kathryn diphtheria toxoid, and acellular pertussis vaccine, adsorbed No Primary Care Physician [facility] 03-17-2022 Covid (Moderna) No Primary C are Physician [facility] 03-16-2022 Covid (Moderna) No Primary C are Physician [facility] 05-22-2021 Covid (Moderna) [facility] 02-22-2021 Covid (Moderna) [facility] 09-23-2020 influenza, injectabl e, quadrivalent, preservative free [facility] 09-23-2020 influenza, seasonal, injectable [facility] 09-23-2020 influenza, seasonal, injectable, preservative free Linda Jose MD Work Phone: [facility] Work Phone: 09-23-2020 influenza virus vacc ine, unspecified formulation Linda Jose MD Work Phone: [facility] 02-25-2017 tetanus toxoid, redu kathryn diphtheria toxoid, and acellular pertussis vaccine, adsorbed [facility] 08-02-2013 pneumococcal polysaccharide vaccine, 23 valent Linda Jose MD Work Phone: [facility] Work Phone: 08-02-2013 Pneumococcal Vaccine [facility] Work Phone: 08-02-2013 pneumococcal vaccine , unspecified formulation No Primary Care Physician [facility] Payers Date Payer Category Payer Self-pay [id number] 2022 Medicaid [employer] [facility] [facility] [id number] 2022-Present [phone] [address] [place] [address] Medicaid [id number] 2013 Medicaid [id number] 2013 Unknown [id number] Unknown [id number] Unknown [id number] Unknown [id number] Unknown [id number] 2.16.840.1.649695.3.579.2.462 Unknown [id number] 2.16.840.1.230883.3.579.2.462 Unknown [id number] 2.16.840.1.805791.3.579.2.462 Unknown [id number] 2.16.840.1.848962.3.579.2.462 Unknown [id number] 2.16.840.1.659396.3.579.2.462 Unknown [id number] 2.16.840.1.641933.3.579.2.462 Unknown [id number] 2.16.840.1.247478.3.579.2.462 Unknown [id number] 2.16.840.1.843197.3.579.2.462 Unknown [id number] 2.16.840.1.841995.3.579.2.462 Unknown [id number] 2.16.840.1.430127.3.579.2.462 Unknown [id number] 2.16.840.1.941358.3.579.2.462 Unknown [id number] 2.16.840.1.174782.3.579.2.462 Unknown [id number] 2.16.840.1.478958.3.579.2.462 Unknown [id number] 2.16.840.1.316573.3.579.2.462 Unknown [id number] [id number] Social History Date Type Detail Facility Start: 02-12-2022 End: 03-30-2025 Tobacco smoking status NHIS Unknown if ever smoked [facility] Start: 11-22-2020 None [facility] Start: 12-05-2020 Marijuana [facility] Start: 11-22-2020 Homeless [facility] Start: 02-20-2021 Non-smoker [facility] Start: 1975 Sex Assigned At Male W [facility] Start: 08-26-2023 End: 01-19-2025 Tobacco smoking status NHIS Never smoked tobacco [facility] Start: 08-26-2023 Tobacco use and exposure Former smokeless tobacco user [facility] Start: 08-28-2023 Alcohol intake Current drinke r of alcohol (finding) [facility] Start: 08-28-2023 History of Social function [facility] Start: 08-28-2023 Tobacco use panel [facility] National Score (1-100), lower number is lower risk 89 [facility] Start: 08-26-2023 Tobacco [facility] Start: 1975 Sex Assigned At Not on file [facility] Start: 12-13-2024 End: 01-19-2025 Sex Male (finding) [facility] Start: 04-16-2025 Tobacco smoking stat us NHIS Ex-smoker (finding) [facility] Goals Date Patient Goal Desired Activity /State Functional Status Date Assessment Result Facility 11-12-2024 Functional status Ambulates [facility] Work Phone: 10-23-2024 Functional status Ambulates [facility] Work Phone: 10-31-2023 Functional status Up ad laverne [facility] Work Phone: 04-28-2023 Functional status Ambulates;Up a d laverne;Bathroom Privilege [facility] Work Phone: 04-28-2023 Functional status Ambulates;Up a d laverne;Bathroom Privilege [facility] Work Phone: 12-24-2022 Functional status Ambulates [facility] Work Phone: 07-18-2022 Functional status Activity Ability Indepe ndent [facility] Work Phone: 07-17-2022 Functional status Up ad laverne [facility] Work Phone: 05-26-2022 Functional status Ambulates;Up ad laverne [facility] Work Phone: 03-22-2022 Functional status Activity Ability Indepe ndent [facility] Work Phone: 03-21-2022 Functional status Ambulates;Up ad laverne [facility] Work Phone: Mental Status Date Assessment Result Facility 03-29-2025 Cognitive function Level Of Cons ciousness Awake;Drowsy [facility] Work Phone: 11-12-2024 Cognitive function Voice/Name [facility] Work Phone: 10-22-2024 Cognitive function Voice/Name [facility] Work Phone: 10-31-2023 Cognitive function Voice/Name [facility] Work Phone: 10-15-2023 Cognitive function Level Of Cons ciousness Awake;Alert;Appropriate;Follow s Commands [facility] Work Phone: 09-01-2023 Cognitive function Level Of Cons ciousness Awake;Alert;Appropriate;Follow s Commands [facility] Work Phone: 04-28-2023 Cognitive function Voice/Name [facility] Work Phone: 02-23-2023 Cognitive function Level Of Cons ciousness Awake;Alert;Appropriate;Follow s Commands [facility] Work Phone: 12-24-2022 Cognitive function Speech Pattern Garbled [facility] Work Phone: 12-24-2022 Cognitive function Appropriate;Cooperativ e [facility] Work Phone: 12-01-2022 Cognitive function Level Of Cons ciousness Awake;Alert;Appropriate;Follow s Commands [facility] Work Phone: 10-23-2022 Cognitive function Level Of Cons ciousness Awake;Alert;Appropriate;Follow s Commands [facility] Work Phone: 08-14-2022 Cognitive function Level Of Cons ciousness Awake;Alert;Appropriate;Follow s Commands [facility] Work Phone: 07-18-2022 Cognitive function Guarded [facility] Work Phone: 07-17-2022 Cognitive function Mood Description Appro priate [facility] Work Phone: 05-26-2022 Cognitive function Voice/Name [facility] Work Phone: 03-22-2022 Cognitive function Drowsy [facility] Work Phone: 03-21-2022 Cognitive function Anxious [facility] Work Phone: 02-12-2022 Cognitive function Level Of Cons ciousness Awake;Alert;Appropriate;Follow s Commands [facility] Work Phone: Clinical Notes 11-03-2022 to 04-16-2025 Note Date & Type Note Facility 04-16-2025 Discharge summary [facility] 04-16-2025 Discharge summary Note Date/Time April 16, 2025 10:48pm [facility] Medical Records Department [address] [place] [address] Emergency Department Summary 04/16/25 MR#: [id number] Acct: [id number] Name: MICHAEL MCNEILL SANTOS Rep #:[id number] : 1975 49 From: Twan Garcia MD PCP: Care Physician,No Primary Status :ADM IN Location: [address] History of Present Illness Chief Complaint: Substance Abuse Detail of Chief Complaint: Requesting detox for alcohol abuse. Informant: patient Onset/Context/Timing Onset: Month(s) Context: Gradual Onset Timing: Continuous Current Severity: Mild Maximum Severity: Mild Narrative Narrative: 49-year-old male history of alcohol and methamphetamine abuse. History of bipolar. States that he drinks 3-4 tall boy beers daily. Recently has been using whiskey also. Occasionally marijuana. Denies any IV drug abuse. Last detox was about a year and a half ago. No recent admissions for anything else. Denies recent illness. Prior similar symptoms: Yes Recent Illness/Hospitalization: No [facility] Medical History ETOH abuse Methamphetamine abuse Asthma Depression Anxiety Methamphetamine abuse Ankle fracture, left Bipolar disorder Depression Anxiety Past history of chewing tobacco use Asthma with COPD Anxiety and depression Inguinal hernia bilateral, non-recurrent Hypertension Stroke/cerebrovascular accident Alcohol abuse Bulla of lung GERD (gastroesophageal reflux disease) Home Medications ?Medication ?Instructions ?Recorded ?Last Taken ?Type NK 04/16/25 Unknown History Allergy/AdvReac Type Severity Reaction Status Date / Time No Known Allergies Allergy Verified 04/16/25 21:32 Family History Father Alcoholism CAD (coronary artery disease) Heart disease Hypertension Mother Alcoholism Seizures Surgical History History of ankle surgery Social History housing: homeless Smoking Status: Former smoker Smokeless tobacco user: chewing tobacco how long ago did patient quit smoking: Notes no cig tob use, prior chew only but no current, ongoing cannabis use. alcohol intake: current alcohol intake frequency: a few times a week details: 5-6 beers daily, occasionally whiskey. substance use type: marijuana, amphetamines, opiates and methamphetamine ROS ROS ED ROS Narrative Denies recent illness. Constitutional Constitutional ED: Denies chills Eyes Eyes: Denies blurry vision ENT ENT ED: Denies ear pain Cardiovascular Cardiovascular: Denies chest pain or palpitations Respiratory/Chest Respiratory/Chest: Denies cough Gastrointestinal Gastrointestinal: Denies abdominal pain Genitourinary Genitourinary ED: Denies dysuria Musculoskeletal Musculoskeletal: Denies arthralgias Integumentary Denies abscess Neurologic Neurologic: Denies headache(s) Psychiatric Psychiatric: Denies anxiety Endocrine Endocrinology: Denies cold intolerance Hematologic/Lymphatic Hematologic/Lymphatic: Denies easy bleeding, easy bruising or lymphadenopathy Allergic/Immunologic Allergic/Immunologic ED: Denies mouth swelling, tongue swelling or urticaria EXAM Physical Exam Narrative Exam Narrative: Well-appearing 49-year-old male. Vital signs stable afebrile. No acute distress. No family present. H EENT exam pupils round reactive light. Moist mucous membranes. No trauma. Neck nontender. No lymphadenopathy. Back nontender. Lungs clear to auscultation bilaterally. Heart regular rhythm rate about 100 no murmur. Chest wall and ribs are nontender. Abdomen soft nontender. Moving all 4 extremities. Nontender. No edema. Normal strength. Normal range of motion. Neurologically is awake and alert. Answer questions following commands. Benign exam. Arms there are no track marie. Const Vital Signs: 04/16/25 21:32 Temperature 98 F Temperature Source Oral Pulse Rate 104 H Respiratory Rate 18 Blood Pressure 138/98 H Blood Pressure Mean 111 Pulse Ox 98 Positive well nourished and well developed; Negative for obese, cachectic, contractures or unkempt General Appearance ED: well developed and NAD; Negative for unkempt, cachectic, contractures or pallor Nutritional Appearance: Negative for cachectic or obese HEENT Reports moist mucous membranes atraumatic Eyes PERRL and EOMs intact bilaterally Neck no lymphadenopathy, supple and no JVD Lymph Lymphatic: no lymphadenopathy noted Chest Wall inspection of chest normal and palpation of chest normal Resp normal respiratory effort and clear to auscultation bilaterally Cardio regular rate, regular rhythm, S1 normal heart sound, S2 normal heart sound and no murmurs GI soft to palpation, non-tender, non-distended and no masses Palpation: Negative for tender Back/Spine no CVA tenderness Extremity General Extremety ED: Negative for edema or tenderness General Extremity: Negative for edema Neuro oriented x3 and CN's II-XII intact bilaterally Sensorium / Orientation: alert, oriented to person, oriented to place and oriented to time; Negative for confused, lethargic or stuporous Speech: speech normal Motor Exam: strength 5/5 throughout Psych mental status grossly normal and thought process normal Appearance: Negative for unkempt Attitude: No belligerent, No agitated, No aggressive and No hostile Skin General Skin Exam: Negative for jaundice or pallor Lesions: no lesions Rashes: no rashes MDM MDM MDM Narrative Medical decision making narrative: 49-year-old male requesting detox for alcohol abuse. Screening labs will be obtained. His exam is benign. I will speak to the hospitalist about admission. He is not actively going through withdrawal at this time. Patient doing well at 10:45 PM. I spoke to the hospitalist patient will be admitted. History & Record Review Discussion w/independent historian: Patient Additional record(s) reviewed:: Prior inpatient record, Prior outpatient record,Prior ED visit and Prior labs Lab Data Attestation: I reviewed the patient's lab results. Lab results narrative: CBC unremarkable. White count of 7. H&H 13 and 40. Platelets 290 Chemistries show a gap of 12. BUN and creatinine of 22 and 0.9. Glucose 104. Liver enzymes showed elevated AST of 44. ALT of 61. Alcohol level is negative. Labs: Laboratory Results - last 24 hr 04/16/25 21:55 WBC 7.9 RBC 4.43 L Hgb 13.6 Hct 40.0 MCV 90.3 MCH 30.7 MCHC 34.0 RDW Std Deviation 41.8 RDW Coeff of Bridger 12.6 Plt Count 290 MPV 9.0 Immature Gran % (Auto) 0.300 Neut % (Auto) 71.0 H Lymph % (Auto) 18.5 L [place] % (Auto) 6.1 Eos % (Auto) 3.3 Baso % (Auto) 0.8 Absolute Neuts (auto) 5.6 Absolute Lymphs (auto) 1.46 Nucleated RBC % 0 Sodium 140 Potassium 4.3 Chloride 101 Carbon Dioxide 26.4 Anion Gap 12 BUN 22 H Creatinine 0.97 Estim Creat Clear Calc 72.81 Est GFR (MDRD) Non-Af 96 BUN/Creatinine Ratio 22.4 H Glucose 104 H Calcium 10.0 Total Bilirubin 0.54 AST 44 H ALT 61 H Alkaline Phosphatase 60 Total Protein 7.9 Albumin 4.5 Globulin 3.3 Albumin/Globulin Ratio 1.4 Ethyl Alcohol < 10.1 Discharge Plan Dx/Rx/DC Orders Clinical Impression: Alcohol abuse, Marijuana use, Methamphetamine use Disposition Disposition: Acute Care Hospital [facility] What to do if you have Problems For any increased pain, shortness of breath, bleeding, nausea or vomiting, chestpain, or any unexpected problems, contact your Primary Care Provider. Call [facility] ([phone]) or report to the closest Emergency Room. Call 911 if necessary. 04/16/252247 <Electronically signed by Twan Garcia MD> Cosigner Signature (if applicable): CC: No Primary Care Physician ~ Signed [facility] Work Phone: 1(457) 556-523907-16-2025 Evaluation note* Diagnosis Onset Date Resolution Status Admit Date Alcohol withdrawal acute April 012024 10:27pm ETOH abuse acute April 16 10:27pm Marijuana use acute April 16, 2025 10:27pm Methamphetamine use acute April 16, 2025 10:27pm Tobacco abuse acute April 16, 2025 10:27pm [facility] Work Phone: 1(818) 307-479806-28-2025 Discharge summary [facility] Medical Records Department [address] [place] [address] Emergency Department Summary 03/29/25 MR#: [id number] Acct: [id number] Name: MICHAEL MCNEILL SANTOS Rep #:[id number] : 1975 49 From: Sebastian Braswell DO [...] use states that he smokes meth. PFSH PFSH Medical History ETOH abuse Methamphetamine [...] limited to polysubstance abuse, electrolyte abnormality, ACS, pneumonia.Once workup is obtained and reviewed he will [...] % (Auto) 59.0 Lymph % (Auto) 28.8 [place] % (Auto) 7.3 Eos % (Auto) 3.8 [...] IMPRESSION: COPD. NO ACUTE FINDINGS. Reading Location: [facility] Discharge Plan Triage Chief Complaint: Weakness ED Provider: eSbastian Braswell Dx/Rx/DC Orders Clinical Impression: Chest pain Prescriptions: No Action NK Primary Care Provider: Care Physician,No Primary Referrals: Care Physician,No Primary [Primary Care Provider] - Yoalnda Garcia [facility], [facility] [[facility]] - Activity Restrictions/Additional Instructions: Follow-up with your doctor in outpatient. Return with worsening symptoms or anyconcerns. Print Language: Finnish Disposition Disposition: Home, Self Care What to do if you have Problems For any increased pain, shortness of breath, bleeding, nausea or vomiting, chestpain, or any unexpected problems, contact your Primary Care Provider. Call [facility] ([phone]) or report tothe closest Emergency Room. Call 911 if necessary. 03/29/252238 Cosigner Signature (if applicable): CC: No Primary Care Physician ~ Signed [facility]06-28-2025 Radiology Diagnostic study note [facility] Imaging Services [address] [place] [address] Chest PA and Lateral MR#: [id number] Acct: [id number] Name: MICHAEL MCNEILL SANTOS Rep #: [id number] : 1975 M 49 From: Shelli John MD PCP: Care Physician,No Primary Status: REG ER Study:Chest PA and Lateral Date of Exam: 03/29/25 Exam# [id number] Ordering Dr: Yonny Braswell DO PROCEDURE: CHEST [...] IMPRESSION: COPD. NO ACUTE FINDINGS. Reading Location: [id number] CC: Dr. Sebastian Braswell DO; No Primary Care Physician ~ Green Belt: Signed [facility]06-28-2025 Discharge summary Author Sebastian Braswell [facility] Note Date/Time March 29, 2025 10:3 9pm [facility] Medical Records Department [address] [place] [address] Emergency Department Summary 03/29/25 MR#: [id number] Acct: [id number] Name: MICHAEL MCNEILL SANTOS Rep #:[id number] : 1975 49 From: Sebastian Braswell DO [...] use states that he smokes meth. PFSH PFSH Medical History ETOH abuse Methamphetamine [...] % (Auto) 59.0 Lymph % (Auto) 28.8 [place] % (Auto) 7.3 Eos % (Auto) 3.8 [...] IMPRESSION: COPD. NO ACUTE FINDINGS. Reading Location: [facility] Discharge Plan Triage Chief Complaint: Weakness ED Provider: Sebastian Braswell Dx/Rx/DC Orders Clinical Impression: Chest pain Prescriptions: No Action NK Primary Care Provider: Care Physician,No Primary Referrals: Care Physician,No Primary [Primary Care Provider] - Yolanda Garcia, [facility] [[facility]] - Activity Restrictions/Additional Instructions: Follow-up with your doctor in outpatient. Return with worsening symptoms or anyconcerns. Print Language: Finnish Disposition Disposition: Home, Self Care What to do if you have Problems For any increased pain, shortness of breath, bleeding, nausea or vomiting, chestpain, or any unexpected problems, contact your Primary Care Provider. Call [facility] ([phone]) or report to the closest Emergency Room. Call 911 if necessary. 03/29/252238 <Electronically signed by Sebastian Braswell DO> Cosigner Signature (if applicable): CC: No Primary Care Physician ~ Signed [facility] Work Phone: 1(560) 210-285704-20-2025 Radiology Diagnostic study note [facility] Imaging Services [address] [place] [address] Chest PA and Lateral MR#: [id number] Acct: [id number] Name: MICHAEL MCNEILL SANTOS Rep #: [id number] : 1975 M 49 From: Shelli John MD PCP: Care Physician,No Primary Status: REG ER Study:Chest PA and Lateral Date of Exam: 01/19/25 Exam# [id number] Ordering Dr: Yee Castillo PROCEDURE: CHEST PA [...] CHANGE SINCE THE PRIOR EXAM. Reading Location: [id number] CC: MALIA Moctezuma; No Primary Care Physician ~ [place]: Signed [facility]04-20-2025 Hospital Discharge instructions Additional Instructions Follow-up with the [facility] across the street since you do not have a PCP. Their phone number is [phone].[facility] Work Phone: 1(577) 982-884403-14-2025 Discharge summary [facility] Medical Records Department [address] [place] [address] Emergency Department Summary 12/13/24 MR#: [id number] Acct: [id number] Name: MICHAEL MCNEILL SANTOS Rep #:[id number] : 1975 49 From: Homar Nieves MD [...] 2 weeks of cough if not longer. [facility] Medical History ETOH abuse Methamphetamine abuse Asthma [...] Correlation with CT recommended. Reading Location: [facility]- Discharge Plan Triage Chief Complaint: Cough ED [...] Physician,No Primary [Primary Care Provider] - Anmol Berry, [facility] [[facility]] - 1 Week if not improving Activity Restrictions/Additional Instructions: Use albuterol inhaler 1 to 2 puffs inhaled every 4-6 hours as needed for shortness of breath. Follow-up with a primary care provider regarding your chronic cough. Return to the emergency department with increased difficulty breathing, new or worsening symptoms. Print Language: Finnish Disposition Disposition: Home, Self Care What to do if you have Problems For any increased pain, shortness of breath, bleeding, nausea or vomiting, chestpain, or any unexpected problems, contact your Primary Care Provider. Call [facility] ([phone]) or report tothe closest Emergency Room. Call 911 if necessary. 12/13/24 1346 Cosigner Signature (if applicable): CC: No Primary Care Physician ~ Signed [facility]03-14-2025 Radiology Diagnostic study note [facility] Imaging Services [address] [place], [place] [address] Chest PA and Lateral MR#: [id number] Acct: [id number] Name: MICHAEL MCNEILL SANTOS Rep #: [id number] : 1975 M 49 From: Benjamin Alvarez MD PCP: Care Physician,No Primary Status: REG ER Study:Chest PA and Lateral Date of Exam: 12/13/24 Exam# [id number] Ordering Dr: Homar Nieves MD PROCEDURE: CHEST [...] Correlation with CT recommended. Reading Location: [facility]1 CC: Dr. Homar Nieves MD; No Primary Care Physician ~ [place]: Signed [facility]02-11-2025 [facility] Medical Records Department [address] [place] [address] Discharge Summary 11/12/24 1140 MR#: [id number] Acct: [id number] Name: MICHAEL MCNEILL Rep #: [id number] : 1975 48 From: Graham Tolbert DO PCP: Care Physician,No Primary Status:DIS IN Location: ICU [id number] Providers Date of Admission: 11/11/24 Primary Care [...] % (Auto) 67.3, Lymph % (Auto) 23.1, [place] % (Auto) 5.6, Eos % (Auto) 2.9, [...] 94.5 H, Lymph % (Auto) 3.5 L, [place] % (Auto) 1.5, Eos % (Auto) 0.0, [...] 41 L, Total Protein (more content not included)...[facility]01-21-2025 [facility] Medical Records Department [address] [place] [address] Discharge Summary 10/22/24 1507 MR#: [id number] Acct: [id number] Name: MICHAEL MCNEILL SANTOS Rep #: [id number] : 1975 48 From: Graham Tolbert DO PCP: Care Physician,No Primary Status:ADM IN [id number] Prov[facility] Date of Admission: 10/21/24 Primary Care [...] % (Auto) 64.3, Lymph % (Auto) 20.6, [place] % (Auto) 6.9, Eos % (Auto) 7.3 [...] 92.3 H, Lymph % (Auto) 6.1 L, [place] % (Auto) 1.0, Eos % (Auto) 0.0, [...] Call To/Read Back Yes (more content not included)...[facility]01-20-2025 Evaluation note* Diagnosis Onset Date Resolution Status Admit Date Acute asthma exacerbation resolved October 21, 2024 7:37pm Methamphetamine abuse resolved Oct 7:37pm Acute respiratory failure wi hypoxia and hypercapnia acute November 11, 2024 5:09pm Asthma exacerbation acute Febru mainor2024 5:09pm Hyperglycemia acute November 112024 5:09pm Leukocytosis acute November 5:09pm Respiratory acidosis acute 2024 5:09pm [facility] Work Phone: 1(270) 550-834601-20-2025 [facility] Medical Records Department [address] [place] [address] History Physical Exam 10/21/241925 MR#: [id number] Acct: [id number] Name: MICHAEL MCNEILL SANTOS Rep #: [id number] : 1975 48 From: [place] Monroy MD [...] x-ray is equivocal as well as CBC. [facility] Medical History (Updated 10/21/24 @ 19:35 by [...] Flow Rate (L/min) Fract (more content not included)...[facility]01-30-2024 Progress note Author Graham Tolbert [facility] October 31, 2023 10:15am Note Date/Time October 31, 2023 7 :[address] [place] [address] Medical Records Department [address] [place] [address] Progress Note - Hospitalist 10/31/23 0731 MR#: [id number] Acct: [id number] Name: MICHAEL MCNEILL SANTOS Rep #:[id number] : 1975 47 From: Graham Tolbert DO PCP: Care Physician,No Primary Status :ADM IN Location: [place] [address] Reason for Visit Reason for Visit: Diagnoses [...] Cosigner Signature (if applicable): CC: ~ Signed [facility] Work Phone: 1(711) 664-321501-29-2024 Progress note Author Graham Tolbert [facility] October 30, 2023 11:01am Note Date/Time October 30, 2023 8 :26am [facility] Medical Records Department [address] [place] [address] Progress Note - Hospitalist 10/30/23 0823 MR#: [id number] Acct: [id number] Name: MICHAEL MCNEILL Rep #:[id number] : 1975 47 From: Graham Tolbert DO PCP: Care Physician,No Primary Status :ADM IN Location: [place] [address] Reason for Visit Reason for Visit: Diagnoses [...] Total 4.58 / 1914.58 Balance 4.58 / 1913.58 Lab / Micro Data 10/29/23 04:46 10/29/23 [...] is evaluated. Charges/Coding Visit Charges Inpatient E&M: 86481 Subs Hosp L2 10/30/23 1101 <Electronically signed by Graham Tolbert DO> Cosigner Signature (if applicable): CC: ~ Signed [facility] Work Phone: 1(524) 375-290001-28-2024 [facility] 29, 2023 1:57pm Note Date/Time October 29, 2023 9 :51am [facility] Medical Records Department [address] [place] [address] Progress Note 10/29/23 0949 MR#: [id number] Acct: [id number] Name: MICHAEL MCNEILL SANTOS Rep #:[id number] : 1975 47 From: Amparo Nguyen MD PCP: Care Physician,No Primary Status :ADM IN Location: [place] QI206-8 Subjective Subjective Patient seen and examined. He [...] 78.9 H, Lymph % (Auto) 14.6 L, [place] % (Auto) 4.0, Eos % (Auto) 1.6, [...] prophylaxis; SCDs Charges/Coding Visit Charges Inpatient E&M: 53708 Subs Hosp L2 10/29/23 1357 <Electronically signed by Amparo Nguyen MD> Amparo Nguyen MD Cosigner Signature (if applicable): CC: ~ Signed [facility] Work Phone: 1(395) 315-835701-28-2024 Discharge summary Author Tae Walsh [facility] October 29, 2023 5:44am Note Date/Time October 29, 2023 4 :37am [facility] Medical Records Department [address] [place] [address] Emergency Department Summary 10/29/23 MR#: [id number] Acct: [id number] Name: MICHAEL MCNEILL SANTOS Rep #:[id number] : 1975 47 From: Tae Walsh MD PCP: Care Physician,No Primary Status :ADM IN Location: [place] [address] HPI History of Present Illness Chief Complaint: [...] Prior similar symptoms: Yes Recent [facility] Medical History (Updated 10/29/23 @ 05:44 by [...] Extremity: Negative for edema Neuro oriented x3 Healy Coma Scale: document GCS findings Spontaneous Obeys [...] those results. Plan is to admit to [facility]. Dr. Mcintyre who is on this evening [...] Physician,No Primary Disposition Disposition: Acute Care Hospital [facility] What to do if you have Problems For any increased pain, shortness of breath, bleeding, nausea or vomiting, chestpain, or any unexpected problems, contact your Primary Care Provider. Call [facility] ([phone]) or report to the closest Emergency Room. Call 911 if necessary. 10/29/23 0544 <Electronically signed by Tae Walsh MD> Cosigner Signature (if applicable): CC: No Primary Care Physician ~ Signed [facility] Work Phone: 1(565) 563-545701-28-2024 History and physical note Author Alisha Mcintyre [facility] October 29, 2023 4:59am Note Date/Time October 29, 2023 4 :41am [facility] Medical Records Department [address] [place] [address] H&P Exam - Hospitalist 10/29/23 0437 MR#: [id number] Acct: [id number] Name: MICHAEL MCNEILL SANTOS Rep #:[id number] : 1975 47 From: Alisha Mcintyre MD [...] GERD, HTN, HLD who presents to the [facility] ED on 04/26/23 with acute EtOH withdrawal [...] alcohol level, urine drug screen upon evaluation. [facility] Medical History (Updated 10/29/23 @ 04:39 by [...] GERD, HTN, HLD who presents to the [facility] ED on 04/26/23 with acute EtOH withdrawal [...] of admission. Charges/Coding Visit Charges Inpatient E&M: 70551 Init Hosp L2 10/29/23 0454 <Electronically signed by Alisha Mcintyre MD> Cosigner Signature (if applicable): CC: Dr. Alisha Mcintyre MD; No Primary Care Physician~ Signed [facility] Work Phone: 1(873) 975-681112-19-2023 Telephone encounter Note* Telephone Encounter - Vida Perez - 09/19/2023 4:15 PM EST Office and [facility] unable to reach patient to go over surgery information and schedule PAT prior to surgery as patients number and emergency contacts number has been disconnected Surgery message sent to [place] to cancel surgery as of now Vida Perez [facility]12-19-2023 Miscellaneous Notes* Telephone Encounter - Vida Perez - 09/19/2023 4:15 PM EST Office and [facility] unable to reach patient to go over surgery information and schedule PAT prior to surgery as patients number and emergency contacts number has been disconnected Surgery message sent to [place] to cancel surgery as of now Vida Perez [employer] * Telephone Encounter - Vida Perez - 09/13/2023 9:05 AM EST Received call from [facility] in regards to patient not being able to be contacted. Number listed for patient rings twice then shows busy. Emergency contact listed is inactive. Will keep trying. Patient scheduled for hernia surgery with Dr. Jose in [place] on 10/03/2023. Colonoscopy was cancelled earlier this month. Vida Perez Please advise [employer] * Telephone Encounter - Vida Perez - 08/28/2023 11:16 AM EST 09/05/2023 COLON [employer] + 10/03/[address] [facility]23 Telephone encounter Note * Telephone Encounter [...] earlier this month. Vida Perez Please advise [employer]2023 Telephone encounter Note* Telephone Encounter - Vida Perez - 08/28/2023 11:16 AM EST 09/05/2023 COLON MTZ + 10/03/2023 RIH MTZ [facility]2023 NoteHNO ID: [id number] Author: Linda Jose MD Service: ? Author [...] recently He has just got out of halfway for drug possession in the past two [...] entered by the nurse and reviewed by nj Nursing Notes: Katherine Biggs RN 08/28/2023 10:43 [...] and no icterus noted. (more content not included)...[facility] History of Present illness Narrative* Linda Jose MD - 08/28/2023 11:03 AM EST HISTORY AND PHYSICAL Michael Mcneill 1975 REFERRING PHYSICIAN: No ref. provider found CHIEF COMPLAINT: Consult (Right side groin pain) HPI: The patient is a 47 year old male presents with right inguinal hernia noted for 5 years. She notes increasing symptoms recently He has just got out of halfway for drug possession in the past two [...] entered by the nurse and reviewed by nj Nursing Notes: Katherine Biggs RN 08/28/2023 10:43 [...] will be scheduled for the procedure at [facility] I have offered right inguinal hernia [...] studies/radiological imaging/medical records from other medical facilities, [id number] patient care, obtaining oral medical history from the patient in [facility], performing a medically appropriate examination, counseling and educating the patient/family/caregiver, and ordering and/or scheduling of medications/tests/procedures, and completing appropriate medical documentation. Linda Jose MD [facility] Instructions* Patient Instructions* Linda Jose MD [...] If you do not have a responsible crew truck driver (family member or friend) with you [...] your exam. 2 09/2019 [facility] Nurse Note* Katherine Biggs RN - [...] NONE Katherine Biggs RN [facility]11-25-2023 NoteHNO ID: [id number] Author: Henri Hurley APRN.CERTIFIED RETINAL ANGIOGRAPHER Service: ? Author Type: Nurse Practitioner Type: [...] - CONSULT TO GENERAL SURGERY Henri Hurley APRN.[facility]07-28-2023 Discharge summary Author Jaquan Mabry [facility] April 28, 2023 9:43am Note Date/Time April 28, 2023 9:35 am [facility] Medical Records Department [address] [place] [address] Discharge Summary 04/28/23 0935 MR#: [id number] Acct: [id number] Name: MICHAEL MCNEILL SANTOS Rep #:[id number] : 1975 47 From: Jaquan Mabry MD PCP: Care Physician,No Primary Status :ADM IN Location: [place] [address] Providers Date of Admission: 04/26/23 Date of [...] Self Care Charges/Coding Visit Charges Inpatient E&M: 66893 Disch Hosp >30min 04/28/23 0943 <Electronically signed by Jaquan Mabry MD> Cosigner Signature (if applicable): CC: Dr. Jaquan Mabry MD; No Primary Care Physician~ Signed [facility] Work Phone: 1(449) 298-137607-28-2023 Progress note Author Jaquan Mabry [facility] April 28, 2023 9:07am Note Date/Time April 28, 2023 7:17 am [facility] Medical Records Department [address] [place] [address] Progress Note - Hospitalist 04/28/23 0717 MR#: [id number] Acct: [id number] Name: MICHAEL MCNEILL Rep #:[id number] : 1975 47 From: Jaquan Mabry MD PCP: Care Physician,No Primary Status :ADM IN Location: [place] [address] Reason for Visit Reason for Visit: Diagnoses [...] 35 Minutes Charges/Coding Visit Charges Inpatient E&M: 27496 Subs Hosp L2 04/28/23 0907 <Electronically signed by Jaquan Mabry MD> Cosigner Signature (if applicable): CC: ~ Signed [facility] Work Phone: 1(588) 591-556707-28-2023 Progress note Author Jaquan Mabry [facility] April 28, 2023 9:07am Note Date/Time April 28, 2023 7:17 am [facility] Medical Records Department [address] [place] [address] Progress Note - Hospitalist 04/28/23716 MR#: [id number] Acct: [id number] Name: MICHAEL MCNEILL SANTOS Rep #:[id number] : 1975 47 From: Jaquan Mabry MD PCP: Care Physician,No Primary Status :ADM IN Location: [place] [address] Reason for Visit Reason for Visit: Diagnoses [...] 35 Minutes Charges/Coding Visit Charges Inpatient E&M: 30525 Subs Hosp L2 04/28/23 0907 <Electronically signed by Jaquan Mabry MD> Cosigner Signature (if applicable): CC: ~ Signed [facility] Work Phone: 1(633) 974-585807-27-2023 Progress note Author Jaquan Mabry [facility] April 27, 2023 8:14am Note Date/Time April 27, 2023 7:02 am [facility] Medical Records Department [address] [place] [address] Progress Note - Hospitalist 04/27/23 0659 MR#: [id number] Acct: [id number] Name: MICHAEL MCNEILL SANTOS Rep #:[id number] : 1975 47 From: Jaquan Mabry MD PCP: Care Physician,No Primary Status :ADM IN Location: [place] QH570-0 Reason for Visit Reason for Visit: Diagnoses [...] % (Auto) 56.3, Lymph % (Auto) 22.0, [place] % (Auto) 6.0, Eos % (Auto) 14.7 [...] 35 Minutes Charges/Coding Visit Charges Inpatient E&M: 26614 Subs Hosp L2 04/27/23 0814 <Electronically signed by Jaquan Mabry MD> Cosigner Signature (if applicable): CC: ~ Signed [facility] Work Phone: 1(688) 637-305507-27-2023 History and physical note Author Alisha Mcintyre [facility] April 26, 2023 11:38pm Note Date/Time April 26, 2023 7:07 pm [facility] Medical Records Department [address] [place] [address] H&P Exam - Hospitalist 04/26/23 1904 MR#: [id number] Acct: [id number] Name: MICHAEL MCNEILL SANTOS Rep #:[id number] : 1975 47 From: Alisha Mcintyre MD PCP: Care Physician,No Primary Status :ADM IN [place] [facility] [place] HPI - General General Date of Admission: 04/26/23 Date of Service: 04/26/23 Chief Complaint: Acute EtOH withdrawal HPI Narrative The patient is a 47 y/o M w/ PMHx: Hx CVA, Hx Chew tobacco use, Polysubstance abuse (cannabis, opiates, methampetamine), EtOH abuse, COPD/Asthma w/ known bulla, GERD, HTN, HLD who presents to the [facility] ED on 04/26/23 with acute EtOH withdrawal [...] UDS pending upon requested evaluation of patient. [facility] Medical History (Updated 04/26/23 @ 19:21 by [...] % (Auto) 56.3, Lymph % (Auto) 22.0, [place] % (Auto) 6.0, Eos % (Auto) 14.7 [...] GERD, HTN, HLD who presents to the [facility] ED on 04/26/23 with acute EtOH withdrawal for detoxification treatment. #1. Acute EtOH Withdrawal: Will admit to [facility], routine labs obtained in the ED upon [...] encourage ambulation. Charges/Coding Visit Charges Inpatient E&M: 43275 Init Hosp L2 04/26/231922 <Electronically signed by [...] C otherwise syphilis nonreactive, HIV nonreactive. 04/26/23 2338<Electronically signed by Alisha Mcintyre MD> Cosigner Signature (if applicable): cc: Dr. Alisha Mcintyre MD; No Primary Care Physician ~* Signed [facility] Work Phone: 1([phone]) 153-171007-27-2023 Discharge summary Author Graham Messina [facility] April 26, 2023 11:18pm Note Date/Time April 26, 2023 7:02 pm [facility] Medical Records Department [address] [place] [address] Emergency Department Summary 04/26/23 MR#: [id number] Acct: [id number] Name: MARKELLMICHAEL SANTOS Rep #:[id number] : 1975 47 From: Graham Anderson PCP: Care Physician,No Primary Status :ADM IN Location: [place] [address] HPI History of Present Illness Chief Complaint: [...] Patient denies any suicidal or homicidal ideations. [facility] Medical History Active substance abuse Alcohol abuse [...] % (Auto) 56.3 Lymph % (Auto) 22.0 [place] % (Auto) 6.0 Eos % (Auto) 14.7 [...] Alcohol withdrawal Disposition Disposition: Acute Care Hospital [facility] What to do if you have Problems For any increased pain, shortness of breath, bleeding, nausea or vomiting, chestpain, or any unexpected problems, contact your Primary Care Provider. Call [facility] ([phone]) or report to the closest Emergency Room. Call 911 if necessary. 04/26/232317 <Electronically signed by Graham Messina DO> Cosigner Signature (if applicable): CC: No Primary Care Physician ~ Signed [facility] Work Phone: 1(326) 215-481703-25-2023 History and physical note Author Dr. Mcintyre [facility] December 23, 2022 10:52pm Note Date/Time December 23, 2022 10: 33pm [facility] Medical Records Department [address] [place] [address] History & Physical Exam 12/23/222224 MR#: [id number] Acct: [id number] Name: MICHAEL MCNEILLN Rep #:[id number] : 1975 47 From: Alisha Mcintyre MD PCP: Care Physician,No Primary Status :ADM IN [place] [facility] [place] HPI - General General Date of Admission: [...] 07/15/22- 07/18/22 who now re-presents to the [facility] ED on 12/23/22 with onset of alcohol [...] UDS with positive amphetamine/MDMA, ethyl alcohol 25. [facility] Medical History (Updated 12/23/22 @ 22:48 by [...] Signs Vital Signs: 12/23/22 20:33 12/23/22 22:18 03/24/23 22:18 Temperature 96.9 F L 98.8 F [...] (Auto) 69.3, Lymph % (Auto) 17.4 L, [place] % (Auto) 5.3, Eos % (Auto) 7.0 [...] 07/15/22- 07/18/22 who now re-presents to the [facility] ED on 12/23/22 with onset of alcohol [...] 55 minutes. Charges/Coding Visit Charges Inpatient E&M: 20537 Init Hosp L2 12/23/22 2252 <Electronically signed by Alisha Mcintyre MD> Cosigner Signature (if applicable): CC: Dr. Alisha Mcintyre MD; No Primary Care Physician~ Signed [facility] Work Phone: 1(703) 679-694303-25-[address] De Anda [facility] December 23, 2022 10:30pm Note Date/Time December 23, 2022 10: 30pm [facility] Medical Records Department [address] [place] [address] Emergency Department Summary 12/23/22 MR#: [id number] Acct: [id number] Name: MICHAEL MCNEILL SANTOS Rep #:[id number] : 1975 47 From: Michael De Anda [...] (Auto) 69.3 Lymph % (Auto) 17.4 L [place] % (Auto) 5.3 Eos % (Auto) 7.0 [...] (Auto) Neut % (Auto) Lymph % (Auto) [place] % (Auto) Eos % (Auto) Baso % [...] your Primary Care Provider. Call [facility] ([phone]) or report to the closest Emergency Room. Call 911 if necessary. 12/23/222229 <Electronically signed by Michael De Anda DO> Cosigner Signature (if applicable): CC: No Primary Care Physician ~ Signed [facility] Work Phone: 1([phone]) 660-653703-16-[address] Garcia [facility] December 15, 2022 6:41pm Note Date/Time December 15, 2022 6:3 9pm [facility] Medical Records Department [address] [place] [address] Emergency Department Summary 12/15/22 MR#: [id number] Acct: [id number] Name: MICHAEL MCNEILL SANTOS Rep #:[id number] : 1975 47 From: Twan Garcia MD [...] your Primary Care Provider. Call [facility] ([phone]) or report to the closest Emergency Room. Call 911 if necessary. 12/15/22 184 <Electronically signed by Twan Garcia MD> Cosigner Signature (if applicable): CC: No Primary Care Physician ~ Signed [facility] Work Phone: 1(225) 800-644502-02-[address] Nieves [facility] November 03, 2022 3:22pm Note Date/Time November 03, 2022 1 :31pm [facility] Medical Records Department [address] [place] [address] Emergency Department Summary 11/03/22 MR#: [id number] Acct: [id number] Name: MICHAEL MCNEILL SANTOS Rep #:[id number] : 1975 46 From: Homar Nieves MD PCP: Care Physician,No Primary Status :REG ER Location: ED HPI HPI - Fall History of Present Illness Chief Complaint: Fall Narrative Narrative: 46-year-old male presents from the Mg[facility] with injury to his face, mainly his upper lip. He states that he blacked out but was unsure for how long. He sustained injury to his mucosal surface of his upper lip. He denies any neck pain. He denies taking any medications and is unsure of his last tetanus immunization. He states that he stood up and just blacked out. PFSH PFSH Medical History Active substance abuse [...] % (Auto) 60.9 Lymph % (Auto) 20.9 [place] % (Auto) 6.5 Eos % (Auto) 10.8 [...] your Primary Care Provider. Call [facility] ([phone]) or report to the closest Emergency Room. Call 911 if necessary. 11/03/22 1522 <Electronically signed by oHmar Nieves MD> Cosigner Signature (if applicable): CC: No Primary Care Physician ~ Signed [facility] Work Phone: Consult note Author Charlie Cortes [facility] October 31, 2023 10:29am Note Date/Time October 31, 2023 1 0:29am [facility] Medical Records Department [address] [place] [address] Counseling Note - Pharmacy 10/31/23 1028 MR#: [id number] Acct: [id number] Name: MICHAEL MCNEILL SANTOS Rep #:[id number] : 1975 47 From: Charlie Cortes PCP: Care Physician,No Primary Status :ADM IN Location: [place] [address] Pharmacy [place] [facility] Reconciliation Pharmacy Service has performed discharge [...] signed by Charlie ceja> Date _ Charlie Lloyd Signature (if applicable): Date CC: ~ Signed [facility] Work Phone: Discharge summary Author Dr. Mckeon [facility] December 24, 2022 11:31am Note Date/Time December 24, 2022 11: 17am [facility] Medical Records Department [address] [place] [address] Discharge Summary 12/24/22 1116 MR#: [id number] Acct: [id number] Name: MICHAEL MCNEILL Rep #:[id number] : 1975 47 From: Nelson Mckeon DO PCP: Care Physician,No Primary Status :ADM IN Location: [place] [address] Providers Date of Admission: 12/23/22 Date of [...] was seen in the emergency room at [facility] requesting services for alcohol detox, patient's talk screen was positive for MDMA, amphetamines, and azithromycin alcohol level was 25. Patientwas admitted to [facility] 3, according to nursing, patient refused his [...] (Auto) 69.3, Lymph % (Auto) 17.4 L, [place] % (Auto) 5.3, Eos % (Auto) 7.0 [...] Mckeon DO; No Primary Care Physician~ Signed [facility] Work Phone: Discharge summary Author Jaquan Mabry [facility] April 28, 2023 9:43am Note Date/Time April 28, 2023 9:35 am [facility] Medical Records Department [address] [place] [address] Discharge Summary 04/28/23 0935 MR#: [id number] Acct: [id number] Name: MICHAEL MCNEILL Rep #:[id number] : 1975 47 From: Jaquan Mabry MD PCP: Care Physician,No Primary Status :ADM IN Location: [place] [address] Providers Date of Admission: 04/26/23 Date of [...] no longer takiing Referrals / Follow Up: Labor,Kristina, DO [Med Staff - Consulting] - Within 1 Week (at 180) Care Physician,No Primary [Primary Care Provider] - Within 2 Weeks Disposition Disposition (needs filled in before D/C Order can be placed): Home, Self Care Charges/Coding Visit Charges Inpatient E&M: 28299 Disch Hosp >30min 04/28/23 0943 <Electronically signed by Jaquan Mabry MD> Cosigner Signature (if applicable): CC: Dr. Jaquan Mabry MD; No Primary Care Physician~ Signed [facility] Work Phone: Discharge summary Author Tae Walsh [facility] October 29, 2023 5:44am Note Date/Time October 29, 2023 4 :37am [facility] Medical Records Department [address] [place] [address] Emergency Department Summary 10/29/23 MR#: [id number] Acct: [id number] Name: MICHAEL MCNEILL SANTOS Rep #:[id number] : 1975 47 From: Tae Walsh MD PCP: Care Physician,No Primary Status :ADM IN Location: [place] [address] HPI History of Present Illness Chief Complaint: [...] Extremity: Negative for edema Neuro oriented x3 Healy Coma Scale: document GCS findings Spontaneous Obeys [...] those results. Plan is to admit to [facility]. Dr. White who is on this evening has admitted [...] Physician,No Primary Disposition Disposition: Acute Care Hospital [facility] What to do if you have Problems For any increased pain, shortness of breath, bleeding, nausea or vomiting, chestpain, or any unexpected problems, contact your Primary Care Provider. Call [facility] ([phone]) or report to the closest Emergency Room. Call 911 if necessary. 10/29/23 0544 <Electronically signed by Tae Walsh MD> Cosigner Signature (if applicable): CC: No Primary Care Physician ~ Signed [facility] Work Phone: Discharge summary Author Graham Tolbert [facility] October 31, 2023 10:21am Note Date/Time October 31, 2023 1 0:17am [facility] Medical Records Department [address] [place] [id number] Discharge Summary 10/31/23 1015 MR#: [id number] Acct: [id number] Name: MICHAEL MCNEILL SANTOS Rep #:[id number] : 1975 47 From: Graham Tolbert DO PCP: Care Physician,No Primary Status :[facility] Prov[facility] Date of Admission: 10/29/23 Primary Care [...] Care Physician,No Primary Consulting Providers: Alisha Mcintyre Nana Yaa [...] Self Care Charges/Coding Visit Charges Inpatient E&M: 54135 Disch Hosp 10/31/23 1021 <Electronically signed by Graham Tolbret DO> Cosigner Signature (if applicable): CC: Dr. Graham Tolbert DO; No Primary Care Physician~ Signed [facility] Work Phone: Discharge summary Author Homar Nieves [facility] Note Date/Time December 13, 2024 1:4 6pm [facility] Medical Records Department [address] [place] [address] Emergency Department Summary 12/13/24 MR#: [id number] Acct: [id number] Name: MICHAEL MCNEILL SANTOS Rep #:[id number] : 1975 49 From: Homar Nieves MD [...] 2 weeks of cough if not longer. [facility] Medical History ETOH abuse Methamphetamine abuse Asthma [...] midlung. Correlation with CT recommended. Reading Location: [place] [address] Discharge Plan Triage Chief Complaint: Cough ED [...] [Primary Care Provider] - Anmol Berry NP-C [[facility]] - 1 Week if not improving Activity Restrictions/Additional Instructions: Use albuterol inhaler 1 to 2 puffs inhaled every 4-6 hours as needed for shortness of breath. Follow-up with a primary care provider regarding your chronic cough. Return to the emergency department with increased difficulty breathing, new or worsening symptoms. Print Language: Finnish Disposition Disposition: Home, Self Care What to do if you have Problems For any increased pain, shortness of breath, bleeding, nausea or vomiting, chestpain, or any unexpected problems, contact your Primary Care Provider. Call [facility] ([phone]) or report to the closest Emergency Room. Call 911 if necessary. 12/13/24 1346 <Electronically signed by Homar Nieves MD> Cosigner Signature (if applicable): CC: No Primary Care Physician ~ Signed [facility] Work Phone: Evaluation noteNo assessment information available [facility] Work Phone: Evaluation note* Diagnosis Onset Date Resolution Status Desire for detoxification [place] Alcoholism chronic [facility] Work Phone: Evaluation note* Diagnosis Onset Date Resolution Status Desire for detoxification [place] Alcoholism chronic Alcohol intoxication acute Viral URI with cough acute [facility] Work Phone: Evaluation note* Diagnosis Onset Date Resolution Status Alcoholism chronic Acute alcohol withdrawal res olved Alcohol intoxication acute Viral URI with cough acute Alcohol withdrawal acute Desire for detoxification [place] Substance abuse acute Alcoholism chronic [facility] Work Phone: Evaluation note* Diagnosis Onset Date Resolution Status Alcoholism chronic Acute alcohol withdrawal res olved Alcohol intoxication acute Viral URI with cough acute Alcoholism chronic Alcohol withdrawal resolved Alcohol abuse acute [facility] Work Phone: Evaluation note* Diagnosis Onset Date Resolution Status Alcoholism chronic Alcohol withdrawal resolved Alcohol abuse acute Acute alcohol withdrawal res olved [facility] Work Phone: Evaluation note* Diagnosis Onset Date Resolution Status Alcohol abuse acute Acute alcohol withdrawal res olved [facility] Work Phone: Evaluation note* Diagnosis Onset Date Resolution Status Alcohol withdrawal acute [facility] Work Phone: Evaluation note* Diagnosis Onset Date Resolution Status Alcohol withdrawal acute Desire for detoxification [place] [facility] Work Phone: Evaluation note* Diagnosis Onset Date Resolution Status Alcohol withdrawal resolved Desire for detoxification re solved [facility] Work Phone: Evaluation note* Diagnosis Right inguinal hernia Inguinal hernia without mention of obstruction or gangrene, unilateral or unspecified, (not specified as recurrent) Screening for colon cancer Special screening for malignant neoplasms, colon Right inguinal hernia Inguinal hernia without mention of obstruction or gangrene, unilateral or unspecified, (not specified as recurrent) [facility] Diagnosis Onset Date Resolution Status Alcohol abuse acute Alcohol dependence acute Desire for detoxification [place] Alcoholism chronic [facility] Work Phone: History and physical note Author Alisha Mcintyre [facility] April 26, 2023 7:23pm Note Date/Time April 26, 2023 7:07 pm [facility] Medical Records Department [address] [place] [address] H&P Exam - Hospitalist 04/26/23 1904 MR#: [id number] Acct: [id number] Name: MICHAEL MCNEILL SANTOS Rep #:[id number] : 1975 47 From: Alisha Mcintyre MD [...] GERD, HTN, HLD who presents to the [facility] ED on 04/26/23 with acute EtOH withdrawal [...] UDS pending upon requested evaluation of patient. [facility] Medical History (Updated 04/26/23 @ 19:21 by [...] % (Auto) 56.3, Lymph % (Auto) 22.0, [place] % (Auto) 6.0, Eos % (Auto) 14.7 [...] GERD, HTN, HLD who presents to the [facility] ED on 04/26/23 with acute EtOH withdrawal [...] encourage ambulation. Charges/Coding Visit Charges Inpatient E&M: 84598 Init Hosp L2 04/26/231922 <Electronically signed by Alisha Mcintyre MD> Cosigner Signature (if applicable): CC: Dr. Alisha Mcintyre MD; No Primary Care Physician~ Signed [facility] Work Phone: History and physical note Author Ailsha Francisco Javier [facility] October 29, 2023 4:59am Note Date/Time October 29, 2023 4 :41am [facility] Medical Records Department [address] [place] [address] H&P Exam - Hospitalist 10/29/23 0437 MR#: [id number] Acct: [id number] Name: MICHAEL MCNEILL SANTOS Rep #:[id number] : 1975 47 From: Alisha Mcintyre MD [...] GERD, HTN, HLD who presents to the [facility] ED on 04/26/23 with acute EtOH withdrawal [...] alcohol level, urine drug screen upon evaluation. [facility] Medical History (Updated 10/29/23 @ 04:39 by [...] GERD, HTN, HLD who presents to the [facility] ED on 04/26/23 with acute EtOH withdrawal [...] of admission. Charges/Coding Visit Charges Inpatient E&M: 06660 Init Hosp L2 10/29/23 0459 <Electronically signed by Alisha Mcintyre MD> Cosigner Signature (if applicable): CC: Dr. Alisha Mcintyre MD; No Primary Care Physician~ Signed [facility] Work Phone: Hospital Discharge instructions Additional Instructions Follow-up with a dentist as soon as possible for your right front tooth avulsion.[facility] Work Phone: Hospital Discharge instructions Additional Instructions Wash your hand thoroughly daily. Apply antibiotic ointment to all this cuts on your left hand twice a day. Apply hand moisturizer twice a day your skin is getting very dry. Currently there is no signs of infection. Watch for pus, red streaks, fever or swelling of seen needs to be reevaluated.[facility] Work Phone: Hospital Discharge instructions Additional Instructions Please follow-up with the PCP I referred you to.[facility] Work Phone: Hospital Discharge instructions Additional Instructions See your physician as scheduled in April.[facility] Work Phone: Hospital Discharge instructions Additional Instructions Please use your inhaler as directed to control any asthma symptoms and return to the ER should you have any further [facility] Work Phone: Hospital Discharge instructions Additional Instructions Follow-up with the surgeons office tomorrow so they can reprint the appropriate follow-up paperwork and plans for your hernia surgery.[facility] Work Phone: Hospital Discharge instructions Additional Instructions Use albuterol inhaler 1 to 2 puffs inhaled every 4-6 hours as needed for shortness of breath. Follow-up with a primary care provider regarding your chronic cough. Return to the emergency department with increased difficulty breathing, new or worsening symptoms. [facility] Work Phone: Hospital Discharge instructionsAdditional Instructions Follow-up with your doctor in outpatient. Return with worsening symptoms or any concerns.[facility] Work Phone: Reason for referral (narrative)* Outpatient Procedure (Routine) - Authorized Specialty Diagnoses / Procedures Referred By Contac t Referred To Contact [facility] Diagnoses Screening for colon cancer Procedures COLONOSCOPY SCREENING COLONOSCOPY FLX DX W/COLLJ SPEC WHEN Linda Manrique MD [address] [place] [address] [facility] [address] [place] [address] Referral ID Status Reason Start Date Expiration Date Visits Requested Visits Authorized [id number] Authorized Auto-Generat ed Referral 3 08/28/2024 1 1 [facility] ([facility]arrative)No reason for referral information availableWKettering Health Hamilton Work Phone: Summary Purpose Family History Relationship Condition Age at Onset Recorded Date/T kwasi father Alcoholism Unknown Relationship Condition Age at Onset Recorded Date/T kwasi father Alcoholism Unknown Coronary artery disease Unknown Cardiac disease Unknown Hypertension Unknown mother Alcoholism Unknown Seizure Unknown Advance Directives Advance Directive Response Recorded Date/ Time Advance Directives No April 02 4 8:34pm Living Will No February 12, 2022 7 :15pm Power of Rn Referral No February 12, 2022 7:15pm Advance Directive Response Recorded Date/ Time Advance Directives No April 02 4 8:34pm Living Will No March 19, 2022 8:44pm Power of Rn Referral No March 19 2 8:44pm Advance Directive Response Recorded Date/ Time Advance Directives No April 02 4 8:34pm Living Will No March 19, 2022 10:50pm Power of Rn Referral No March 19 2 10:50pm Advance Directive Response Recorded Date/ Time Advance Directives No April 02 4 8:34pm Living Will No March 28, 2022 4:26pm Power of Rn Referral No March 28 2 4:26pm Advance Directive Response Recorded Date/ Time Advance Directives No April 02 4 8:34pm Living Will No May 23 11:27pm Power of Rn Referral No Sterling 22nd, 2 022 11:27pm Advance Directive Response Recorded Date/ Time Advance Directives No April 02 4 8:34pm Living Will No May 24 1:55am Power of Rn Referral No May 24 2 022 1:55am Advance Directive Response Recorded Date/ Time Advance Directives No April 02 4 8:34pm Living Will No July 15 9:08pm Power of Rn Referral No July 15, 2022 9:08pm Advance Directive Response Recorded Date/ Time Advance Directives No April 02 4 8:34pm Living Will No July 26 6:25pm Power of Rn Referral No July 26, 2022 6:25pm Advance Directive Response Recorded Date/ Time Advance Directives No April 02 4 7:34pm Living Will No August 14 022 6:57am Power of Rn Referral No August 14, 2022 6:57am Advance Directive Response Recorded Date/ Time Advance Directives No April 02 7:34pm Living Will No September 05 11:06am Power of Rn Referral No September 05, 2022 11:06am Advance Directive Response Recorded Date/ Time Advance Directives No April 02 4 7:34pm Living Will No September 09 1:56am Power of Rn Referral No September 09, 2022 1:56am Advance Directive Response Recorded Date/ Time Advance Directives No April 02 4 7:34pm Living Will No October 09 1:37pm Power of Rn Referral No October 09, 2 023 1:37pm Advance Directive Response Recorded Date/ Time Advance Directives No April 02 4 7:34pm Living Will No November 03 1:05pm Power of Rn Referral No November 03, 2022 1:05pm Advance Directive Response Recorded Date/ Time Advance Directives No April 02 4 7:34pm Living Will No December 01, 2022 11:33pm Power of Rn Referral No December 01 11:33pm Advance Directive Response Recorded Date/ Time Advance Directives No April 02 4 8:34pm Living Will No December 15, 2022 6:32pm Power of Rn Referral No December 15 6:32pm Advance Directive Response Recorded Date/ Time Advance Directives No April 02 4 8:34pm Living Will No December 23, 2022 11:29pm Power of Rn Referral No December 23 11:29pm Advance Directive Response Recorded Date/ Time Advance Directives No April 02 4 8:34pm Living Will No March 26, 2023 12:10am Power of Rn Referral No March 26 12:10am Advance Directive Response Recorded Date/ Time Advance Directives No April 02 4 8:34pm Living Will No April 26, 2023 7:47pm Power of Rn Referral No April 26 3 7:47pm Advance Directive Response Recorded Date/ Time Advance Directives No April 02 4 8:34pm Living Will No April 26, 2023 8:56pm Power of Rn Referral No April 26 8:56pm Advance Directive Response Recorded Date/ Time Advance Directives No April 02 4 8:34pm Living Will No May 29 12:58am Power of Rn Referral No May 29 023 12:58am Advance Directive Response Recorded Date/ Time Advance Directives No April 02 4 7:34pm Living Will No September 01 12:29am Power of Rn Referral No September 01, 2023 12:29am Advance Directive Response Recorded Date/ Time Advance Directives No April 02 4 7:34pm Living Will No October 15 11:33am Power of Rn Referral No October 15, 2023 11:33am Advance Directive Response Recorded Date/ Time Advance Directives No April 02 4 7:34pm Living Will No October 29 4:23am Power of Rn Referral No October 29, 2023 4:23am Advance Directive Response Recorded Date/ Time Advance Directives No April 02 4 7:34pm Living Will No October 29 5:54am Power of Rn Referral No October 29, 2023 5:54am Advance Directive Response Recorded Date/ Time Living Will No September 07 12:41pm Power of Rn Referral No September 07, 2024 12:41pm Living Will No November 11, 025 6:41pm Power of Rn Referral No November 11, 2024 6:41pm Living Will No December 04, 2024 8:21pm Power of Rn Referral No December 04 8:21pm Living Will No December 13, 2024 12:35pm Power of Rn Referral No December 13 12:35pm Living Will No September 19, 024 7:59pm Power of Rn Referral No September 19, 2024 7:59pm Living Will No October 21 9:51pm Power of Rn Referral No October 21, 2024 9:51pm Living Will No November 27, 2 025 3:01pm Power of Rn Referral No 2024 3:01pm Advance Directives No April 02 8:34pm Advance Directive Response Recorded Date/ Time Living Will No November 11 025 6:41pm Do you have a Healthcare Power of Rn Referral? No November 11, 2024 6:41pm Living Will No December 04, 2024 8:21pm Do you have a Healthcare Power of Rn Referral? No December 04, 2024 8:21pm Living Will No December 13, 2024 12:35pm Do you have a Healthcare Power of Rn Referral? No December 13, 2024 12:35pm Living Will No January 19, 2025 2:10pm Do you have a Healthcare Power of Rn Referral? No January 19, 2025 2:10pm Living Will No October 21 9:51pm Do you have a Healthcare Power of Rn Referral? No October 21, 2024 9:51pm Living Will No November 27, 025 3:01pm Do you have a Healthcare Power of Rn Referral? No 2024 3:01pm Advance Directives No April 02 8:34pm Advance Directive Response Recorded Date/ Time Living Will No December 04, 2024 8:21pm Do you have a Healthcare Power of Rn Referral? No December 04, 2024 8:21pm Living Will No December 13, 2024 12:35pm Do you have a Healthcare Power of Rn Referral? No December 13, 2024 12:35pm Living Will No January 19, 2025 2:10pm Do you have a Healthcare Power of Rn Referral? No January 19, 2025 2:10pm Do you have a Healthcare Power of Rn Referral? No March 29, 2025 5:57pm Advance Directives No April 02 4 8:34pm Advance Directive Response Recorded Date/ Time Living Will No December 04, 2024 8:21pm Do you have a Healthcare Power of Rn Referral? No December 04, 2024 8:21pm Living Will No December 13, 2024 12:35pm Do you have a Healthcare Power of Rn Referral? No December 13, 2024 12:35pm Living Will No January 19, 2025 2:10pm Do you have a Healthcare Power of Rn Referral? No January 19, 2025 2:10pm Do you have a Healthcare Power of Rn Referral? No March 29, 2025 5:57pm Do you have a Healthcare Power of Rn Referral? No March 30, 2025 10:51am Advance Directives No April 02 8:34pm Advance Directive Response Recorded Date/ Time Living Will No January 19, 2025 2:10pm Do you have a Healthcare Power of Rn Referral? No January 19, 2025 2:10pm Do you have a Healthcare Power of Rn Referral? No March 29, 2025 5:57pm Do you have a Healthcare Power of Rn Referral? No March 30, 2025 10:51am Do you have a Healthcare Power of Rn Referral? No April 16, 2025 9:44pm Advance Directives No April 02 8:34pm Hospital Course Note EMERGENCY DEPARTMENT DISCHAR GE SUMMARY PATIENT NAME:MICHAEL MCNEILL MRN: [id number] AGE: 43 Years SEX: Male PHONE:[id number] DOS: 08/04/2019 00:26:00 : 1975 ATTENDING PHYSICIAN:Amy Jaimes MD PCP: Physician, No PCP CHIEF COMPLAINT: wheezing/congestion Allergies No Known Medication Allergies Problems Active Depression Anxiety Asthma DISCHARGE DIAGNOSIS: DISCHARGE INSTRUCTIONS: [facility] List (Custom); Asthma, Acute Bronchospasm ED PHYSICIAN [...] 2pm weakness March 29, 2025 5:45 pm Chief Complaint Admit Date ABSCESS December 04, 2024 4:22 pm COUGH December 13, 2024 11: 17am SOB January 19, 2025 1:4 2pm weakness March 29, 2025 5:45 pm sob March 30, 2025 10:4 4am Chief Complaint Admit Date SOB January 19, 2025 1:4 2pm weakness March 29, 2025 5:45 pm sob March 30, 2025 10:4 4am ETOH DETOX April 16, 2025 10:2 7pm Reason for Visit Admit Date Alcohol withdrawal April 16, 2025 10:2 7pm ETOH abuse April 16, 2025 10:2 7pm Marijuana use April 16, 2025 10:2 7pm Methamphetamine use April 16, 2025 10:2 7pm Tobacco abuse April 16, 2025 10:2 7pm Additional Source Comments (unrecognized sect ion and content) No Status Records FoundNo Status Records FoundNo Status Records FoundNo Status Records FoundNo Status Records Found INFORMATION SOURCE (unrecogn ized section and content) DATE CREATED AUTHOR 06/15/2018 [facility] DATE CREATED AUTHOR AUTHOR'S ORGANIZ ATION 08/04/2019 [facility] DATE CREATED AUTHOR AUTHOR'S ORGANIZ ATION 08/08/2024 [facility] DATE CREATED AUTHOR AUTHOR'S ORGANIZ ATION 02/06/2025 [facility] DATE CREATED AUTHOR AUTHOR'S ORGANIZ ATION 04/02/2025 [facility] Goals (unrecognized section and content) Goals may [...] November 12, 2024 Dr. Trang Valencia , Admit Provider Active Start : November 11, 2024 End: November 12, 2024 Dr. Trang Valnecia DO Other Provider Active Start : November [...] tart: November 11, 2024 Dr. Trang Valencia DO Other Provider Active Start : November 11, 2024 Team Status: Active Member Role Status Dates Dr. Remberto Bernal DO Emergency Provider Active S tart: November 12, 2024 No Primary Care Physician Primary Care Provider Active Start: November 12, 2024 Dr. Trang Valencia DO Admit Provider Active Start : November 12, 2024 Dr. Trang Valencia DO Other Provider Active Start : November 12, 2024 Dr. Graham Tolbert DO Attending Provider Active Start: November 12, 2024 Dr. Graham Tolbert DO Other Provider Active Star t: November [...] End: 2024 Dr. Lacho Joy , DO Emergency Provider Activ e Start: 2024 [...] Hattie Kapadia DO Attending Provider, Emergency P [facility] Active Team Status: Active Member Role Status [...] March 29, 2025 End: March 29, 2025 Team Status: Inactive Member Role/Relationship Status Dates No Primary Care Physician Primary Care Provider Active Start: March 30, 2025 End: March 30, 2025 Dr. Graham Messina DO Emergency Provider Active Start: March 30, 2025 End: March 30, 2025 Team Status: Inactive Member Role/Relationship Status [...] March 29, 2025 Dr. Sebastian Braswell DO Attending Provider Active Start: March 29, 2025 End: March 29, 2025 Dr. Sebastian Braswell DO Referring Provider Active Start: March 29, 2025 End: March 29, 2025 Dr. Sebastian Braswell DO Emergency Provider Active Start: March 29, 2025 End: March 29, 2025 Team Status: Inactive Member Role/Relationship Status Dates No Primary Care Physician Primary Care Provider Active Start: March 30, 2025 End: March 30, 2025 Dr. Graham Messina DO Attending Provider Active Start: March 30, 2025 End: March 30, 2025 Dr. Graham Messina DO Emergency Provider Active Start: March 30, 2025 End: March 30, 2025 Team Status: Active Member Role/Relationship Status Dates No Primary Care Physician Primary Care Provider Active Start: April 16, 2025 Dr. Twan Garcia MD Emergency Provider Active S tart: April 16, 2025 Dr. Jaquan Villarreal DO Admit Provider Active Start: April 16, 2025 Dr. Jaquan Villarreal DO Attending Provider Active Start: April 16, 2025 Source Comments (unrecognize d section and content) In the event this informatio n is protected by the Federal Confidentiality of Alcohol and Drug Abuse Patient Records regulations: The Federal rules restrict any use of the information to criminally investigate or prosecute any alcohol or drug abuse patient.[facility] the event this information is protected by the Federal Confidentiality of Alcohol and Drug Abuse Patient Records regulations: The Federal rules restrict any use of the information to criminally investigate or prosecute any alcohol or drug abuse patient.[facility] Reason for Visit (unrecogniz ed section and content) Reason Comments Consult Right side groin hilaria n Reason Comments 09/05/2023 [facility] + 10/03/2023 [facility] ME GONZALEZ FOR RECORDS PERTAINING TO [...] BE BASED ON THE PRIMARY CLINICAL RECORDS. [facility]. provides no warranty or guarantee of the accuracy or completeness of information in this document.
[2025-04-17] MEDS: hydrOXYzine PAM 25 MG Capsule 50 MG PO ×2 (04:01→20:23)
[2025-04-17 06:00] LABS: Hematocrit 33.0 % (40-54); Hemoglobin 11.4 g/dL (13.0-16.5); Immature Granulocytes Count 0.020 X10^3/uL (0.0-0.0); Mean Corp Hgb Conc 34.5 g/dL (32-36); Mean Corpuscular Volume 89.7 fL (80-94); Mean Platelet Vol. 9.4 fl (6.2-12.0); NRBC Flagged by Analyzer 0 % (0-5); Platelet Count 241 K/mm3 (150-450); RBC Distribution Width CV 12.7 % (11.6-14.6); RBC Distribution Width SD 41.7 fl (35.1-43.9); Red Blood Count 3.68 M/mm3 (4.6-6.2); White Blood Count 5.1 K/mm3 (4.4-11.0)
[2025-04-17 06:35] LABS: AST(SGOT) 35 U/L (<=37); Alanine Aminotransfer ALT/SGPT 44 U/L (<=46); Albumin, Serum 3.6 g/dL (3.5-5.0); Alkaline Phosphatase 46 U/L (40-129); Anion Gap 10 (5-15); BUN 24 mg/dL (4-19); BUN/Creat Ratio 33.3 RATIO (10-20); Calcium,Total 8.9 mg/dL (7.6-11.0); Carbon Dioxide 24.1 mmol/L (21.0-32.0); Chloride 104 mmol/L (98-108); Estimated Creatinine Clearance 98.44 ml/min (50-250); Globulin 2.4 g/dL (2.2-4.2); Glucose 92 mg/dL (70-99); Potassium 3.6 mmol/L (3.3-5.1)
[2025-04-17] MEDS: 0.9% Normal Saline (1000mL) 1,000 ML 150 ML IV (06:42)
[2025-04-17 06:58] LABS: Red Blood Cells-Urine 0 SEEN /hpf (0-5); Squamous Epithelial Cells - UA 0 SEEN /hpf (0-5)
[2025-04-17 07:09] LABS: Color, Urine Yellow (Yellow); Glucose, Dipstick Normal (Normal); Ketone-Dipstick 5 mg/dl (Negative); Leukocyte Esterase-Dipstick Negative /ul (Negative); Nitrite-Dipstick Negative (Negative); Occult Blood-Urine Negative /ul (Negative); Protein-Dipstick 30 mg/dl (Negative); Specific Gravity, Urine 1.025 (1.002-1.030)
[2025-04-17 07:13] LABS: Urine Bilirubin Dipstick 1 mg/dL (Negative)
--- NOTE | 2025-04-17 07:14 | PN.HOSP_ITS ---
Reason for Visit Chief Complaint: Requesting EtOH Detox. Objective Data Objective Data Vital Signs: Vital Signs Temp Pulse Resp BP Pulse Ox O2 Del Method 97.8 F 73 16 102/59 L 98 Room Air 04/17/25 04:00 04/17/25 04:00 04/17/25 04:00 04/17/25 04:00 04/17/25 04:00 04/17/25 04:00 Oxygen Delivery Method Room Air Weight: 121 lb 14.65 oz Body Mass Index (BMI) 19.5 Intake & Output: Intake and Output for Last 24 Hours 04/15/25 04/16/25 04/17/25 23:59 23:59 23:59 Intake Total 1000 / 1000 Balance 1000 / 1000 Lab / Micro Data 04/17/25 05:09 04/17/25 05:09 Labs: Laboratory Results - last 24 hr 04/16/25 21:55: WBC 7.9, RBC 4.43 L, Hgb 13.6, Hct 40.0, MCV 90.3, MCH 30.7, MCHC 34.0, RDW Std Deviation 41.8, RDW Coeff of [place]ger 12.6, Plt Count 290, MPV 9.0, Immature Gran % (Auto) 0.300, Neut % (Auto) 71.0 H, Lymph % (Auto) 18.5 L, [place] % (Auto) 6.1, Eos % (Auto) 3.3, Baso % (Auto) 0.8, Absolute Neuts (auto) 5.6, Absolute Lymphs (auto) 1.46, Nucleated RBC % 0, Sodium 140, Potassium 4.3, Chloride 101, Carbon Dioxide 26.4, Anion Gap 12, BUN 22 H, Creatinine 0.97, Estim Creat Clear Calc 72.81, Est GFR (MDRD) Non-Af 96, BUN/Creatinine Ratio 22.4 H, Glucose 104 H, Calcium 10.0, Magnesium 2.0, Total Bilirubin 0.54, AST 44 H, ALT 61 H, Alkaline Phosphatase 60, Total Protein 7.9, Albumin 4.5, Globulin 3.3, Albumin/Globulin Ratio 1.4, Ethyl Alcohol < 10.1 04/17/25 05:09: WBC 5.1, RBC 3.68 L, Hgb 11.4 L, Hct 33.0 L, MCV 89.7, MCH 31.0, MCHC 34.5, RDW Std Deviation 41.7, RDW Coeff of [place]ger 12.7, Plt Count 241, MPV 9.4, Immature Gran % (Auto) 0.400, Neut % (Auto) 52.3, Lymph % (Auto) 27.5, [place] % (Auto) 9.0, Eos % (Auto) 9.8 H, Baso % (Auto) 1.0, Absolute Neuts (auto) 2.7, Absolute Lymphs (auto) 1.40, Nucleated RBC % 0, Sodium 138, Potassium 3.6, Chloride 104, Carbon Dioxide 24.1, Anion Gap 10, BUN 24 H, Creatinine 0.71, Estim Creat Clear Calc 98.44, Est GFR (MDRD) Non-Af 112, BUN/Creatinine Ratio 33.3 H, Glucose 92, Calcium 8.9, Phosphorus 4.5, Total Bilirubin 0.66, AST 35, ALT 44, Alkaline Phosphatase 46, Total Protein 6.1, Albumin 3.6, Globulin 2.4, Albumin/Globulin Ratio 1.5, TSH 0.819 04/17/25 06:50: Urine Color Yellow, Urine Clarity Clear, Urine pH 6.0, Ur Specific [place] 1.025, Urine Protein 30 H, Urine Glucose (UA) Normal, Urine Ketones 5 H, Urine Occult Blood Negative, Urine Nitrite Negative, Urine Bilirubin 1 H, Urine Urobilinogen 1 H, Ur Leukocyte Esterase Negative Physical Exam Narrative Seen and examined. Patient states that he has been drinking alcohol about 2-3 tall boys, 2-3 times a week but previously was drinking more 4-5 every other day. Sometimes he also drinks hard liquor. Physical exam General: Alert, Oriented x3, Cooperative HEENT: Atraumatic, PERRLA, EOMI, Normocephalic. Oral: No Gingival or Mucosal Lesions/ Ulcerations Neck: Supple, No JVD, Negative Carotid Bruits Chest wall/Lungs: Air entry diminished in bilateral lung bases. No crepitation/rhonchi Cardiovascular: Regular rate and rhythm, Normal S1,S2, No M/G/R Abdomen: Bowel Sounds Present, Soft, Non Tender, Non-Distended. Liver not enlarged : No dysuria. No renal angle tenderness. No suprapubic tenderness. Extremities: No edema, Capillary Refill Less than 3 Seconds Skin: No rashes, No breakdown Musculoskeletal: No Tenderness to Palpation of Joints or Extremities Neurological: Cranial nerves II-XII grossly intact, DTR 2+/4. No acute focal neurological deficit. Psych/Mental Status: Normal Affect, Appropriate. Assessment & Plan Assessment/Plan (1) Alcohol withdrawal: QUALIFIERS: Complication of substance-induced condition: u ncomplicated Qualified Code(s): F10.930 - Alcohol use, unspecified with withdrawal, uncomplicated (2) ETOH abuse: (3) Tobacco abuse: (4) Methamphetamine use: (5) Marijuana use: PLAN: Plan 1. Early symptoms of EtOH withdrawal in the setting of chronic EtOH abuse -the patient is being admitted to [facility] floor. Patient on phenobarbital based order set along with other adjunctive medications gabapentin, Bentyl, Vistaril, clonidine, Klonopin as needed for alcohol withdrawal symptom control. Patient is on thiamine and folate acid. CIWA monitor. manager safe 180 consulted. Discussed with Manuel corrections caseworker. This is his nd admission. The patient did not want to see 18P as he has refused the service. 2. Chronic alcoholic hepatitis: AST ALT have been elevated in the past. ALT more than AST. Repeat bili normal. 3. Smokeless Tobacco Abuse and history of methamphetamine abuse and cannabis use disorder tobacco cessation strongly recommended. Nicotine patch offered. History of methamphetamine abuse -U tox was negative. 4. History of asthma/COPD with emphysematous bullae with recent exacerbation causing visit to the ER here on March 30, 2025 -no acute flare at this time. 5. Other comorbidities include bipolar disorder, bilateral groin hernia, right more than left colon right inguinal hernia is more than left. Advised follow-up with surgery as an outpatient. Not on treatment for bipolar disorder. DVT prophylaxis - Enoxaparin 40 mg sq daily. Full code verified Laboratory Results 04/16/25 21:55: WBC 7.9, RBC 4.43 L, Hgb 13.6, Hct 40.0, MCV 90.3, MCH 30.7, MCHC 34.0, RDW Std Deviation 41.8, RDW Coeff of [place] 12.6, Plt Count 290, MPV 9.0, Immature Gran % (Auto) 0.300, Neut % (Auto) 71.0 H, Lymph % (Auto) 18.5 L, [place] % (Auto) 6.1, Eos % (Auto) 3.3, Baso % (Auto) 0.8, Absolute Neuts (auto) 5.6, Absolute Lymphs (auto) 1.46, Nucleated RBC % 0, Sodium 140, Potassium 4.3, Chloride 101, Carbon Dioxide 26.4, Anion Gap 12, BUN 22 H, Creatinine 0.97, Estim Creat Clear Calc 72.81, Est GFR (MDRD) Non-Af 96, BUN/Creatinine Ratio 22.4 H, Glucose 104 H, Calcium 10.0, Magnesium 2.0, Total Bilirubin 0.54, AST 44 H, ALT 61 H, Alkaline Phosphatase 60, Total Protein 7.9, Albumin 4.5, Globulin 3.3, Albumin/Globulin Ratio 1.4, Ethyl Alcohol < 10.1 04/17/25 05:09: WBC 5.1, RBC 3.68 L, Hgb 11.4 L, Hct 33.0 L, MCV 89.7, MCH 31.0, MCHC 34.5, RDW Std Deviation 41.7, RDW Coeff of [place]ger 12.7, Plt Count 241, MPV 9.4, Immature Gran % (Auto) 0.400, Neut % (Auto) 52.3, Lymph % (Auto) 27.5, [place] % (Auto) 9.0, Eos % (Auto) 9.8 H, Baso % (Auto) 1.0, Absolute Neuts (auto) 2.7, Absolute Lymphs (auto) 1.40, Nucleated RBC % 0, Sodium 138, Potassium 3.6, Chloride 104, Carbon Dioxide 24.1, Anion Gap 10, BUN 24 H, Creatinine 0.71, Estim Creat Clear Calc 98.44, Est GFR (MDRD) Non-Af 112, BUN/Creatinine Ratio 33.3 H, Glucose 92, Calcium 8.9, Phosphorus 4.5, Total Bilirubin 0.66, AST 35, ALT 44, Alkaline Phosphatase 46, Total Protein 6.1, Albumin 3.6, Globulin 2.4, Albumin/Globulin Ratio 1.5, TSH 0.819 04/17/25 06:50: Urine Color Yellow, Urine Clarity Clear, Urine pH 6.0, Ur Specific [place] 1.025, Urine Protein 30 H, Urine Glucose (UA) Normal, Urine Ketones 5 H, Urine Occult Blood Negative, Urine Nitrite Negative, Urine Bilirubin 1 H, Urine Urobilinogen 1 H, Ur Leukocyte Esterase Negative, Urine RBC 0 SEEN, Urine WBC 0 SEEN, Ur Squamous Epith Cells 0 SEEN, Urine Bacteria 0 SEEN, Urine Mucus 1+, Urine Opiates Screen NEGATIVE, U Buprenorphine Qual NEGATIVE, Ur Oxycodone Screen NEGATIVE, Urine Methadone Screen NEGATIVE, Urine Fentanyl Screen NEGATIVE, Ur Barbiturates Screen PRESUMPTIVE POSITIVE, Ur Phencyclidine Scrn NEGATIVE, Ur Amphetamines Screen PRESUMPTIVE POSITIVE, U Benzodiazepines Scrn NEGATIVE, Urine Cocaine Screen NEGATIVE, U Cannabinoids Screen PRESUMPTIVE POSITIVE Charges/Coding Visit Charges Inpatient E&M: 01984 Subs Hosp L2
[2025-04-17 07:17] LABS: Mucous, Urine 1+ /hpf (<or=2+)
[2025-04-17 08:00] LABS: Barbiturate Urine PRESUMPTIVE POSITIVE (< 200 ng/mL); Benzodiazepine Urine NEGATIVE (< 200 ng/mL); PCP Urine NEGATIVE (< 25 ng/mL); THC Urine PRESUMPTIVE POSITIVE (< 50 ng/mL)
[2025-04-17] MEDS: Ensure Plus High Protein 120 ML LIQUID PO ×3 (09:38→18:25)
[2025-04-17] MEDS: Thiamine Hydrochloride 100 MG Tablet PO (09:38)
--- NOTE | 2025-04-17 10:15 | ADDICTION ---
Addendum entered by Keren Lazcano 04/17/25 11:10: Pt is not interested in residential tx. Original Note: This ticket writer met with PT to conduct ASAM, MSE, AUDIT, DUDIT assessments and to plan for d/c. PT A+Ox4 and participated actively. All assessments completed and d/c plan placed in PT's chart. Pt has been admitted for CANDELARIO related admissions 22x with no follow up treatment and several AMA's. Pt will be placed on a Care Plan and will be required to complete residential treatment in order to receive RAMP services. This worker is currently working on residential placement.
--- NOTE | 2025-04-17 13:44 | CHAPLAIN ---
Type of Pastoral Visit _x__ Initial Visit ___ Follow-up Visit ___ On-call Visit ___ General Patient Visit ___ Spiritual Assessment ___ Family Conference ___ Bereavement ___ Rapid Response ___ Code Blue ___ Other (describe below) Pastoral Care Referral From _x__ Patient ___ Family ___ Nurse ___ Physician ___ Insurance Account Representative ___ Small Business Banking Officer ___ Other (describe below) Sacrament/Intervention _x__ Active listening ___ Anointing ___ Anabaptism ___ Bereavement ___ Communion _x__ Isamar exploration ___ ___ Life review _x__ Prayer ___ Reconciliation ___ Sacrament of Sick _x__ Supportive presence ___ Wedding ___ Other (describe below) Pastoral Comments patient has been seen numerous times in the past; pt is alert and actively participates in the conversation; pt has a plan for what happens next and speaks of his desire to look forward; pt acknowledges that he wants to be spiritual and to have a relationship with God and a taoist; pt explains his thinking and illustrates that he has been pondering isamar and pentecostal beliefs for a long time; pt is more active in his conversation, planning, and hope than has ever been evident before in previous visits; pt was given a possible resource contact for more spiritual and physical care once he leaves the hospital; pt expresses gratitude for the support and time given to his needs
--- NOTE | 2025-04-17 14:36 | CASEMGMT ---
Social Work- Pt chronically homeless; reports staying at [facility]. Pt repeatedly admitted for RAMP program; currently declining residential treatment. Pt not feeling well; declines conversation with ROMELIA. MAYRA Castellano
[2025-04-18 04:30] VITALS: BP 110/65; PULSE 68; RESP 16; TEMP 36.6
[2025-04-18 06:00] VITALS: BMI 20.7
--- NOTE | 2025-04-18 06:20 | NURSING ---
pt refused am labs. asked farm management professor to have someone come back later to draw his labs.
[2025-04-18 10:00] VITALS: BP 100/74; PULSE 67; RESP 16; RESP 18; TEMP 36.9; O2SAT 97
[2025-04-18] MEDS: Thiamine Hydrochloride 100 MG Tablet PO (10:07)
[2025-04-18] MEDS: Ensure Plus High Protein 120 ML LIQUID PO (10:07)
--- NOTE | 2025-04-18 10:45 | PCM.DC ---
Discharge Instructions DC O2, CPAP, BIPAP needs Home O2 Discharge instructions: No Dressing / Incision Discharge Activity: Return to Normal Activity Weight Bearing Status: Weight bearing as tolerated Dressing / Incision Call your doctor if you observe: Fever of 101 or Higher, Coldness, Increased Pain, Numbness or Tingling, Change in Color, Inability to urinate, Inability to have a bowel movement, Shortness of breath, Dizziness, Fainting spells, Swelling in the ankles, Chest pain, Prolonged hiccupping, Increased palpitations (irregular heartbeat) and Calf discomfort Follow Up Care When: IN 2 WEEKS Test Results: Test results from this visit will be discussed in further detail at your follow-up appointment, if applicable. Discharge Plan Admission Admit Date/Time: 04/16/25 23:00 Primary Reason for Your Visit: Alcohol withdrawal Attending Provider: Tom Owen Primary Care Provider: Cassie Physician,No Primary Consulting Providers: Jaquan Villarreal Instructions Additional Instructions / Restrictions: Follow-up with 180 outpatient Discharge Orders/Prescriptions Prescriptions: No Action NK Referrals / Follow Up: Care Physician,No Primary [Primary Care Provider] - Disposition Disposition (needs filled in before D/C Order can be placed): Home, Self Care
--- NOTE | 2025-04-18 12:46 | PCM.DC.SUM ---
Providers Date of Admission: 04/16/25 Date of Discharge: 04/18/25 Primary Care Physician: No Primary Care Phys Reason For Visit: ETOH DETOX Diagnosis Discharge Diagnosis (1) Alcohol withdrawal: Status: Acute Code(s): F10.939 - Alcohol use, unspecified with withdrawal, unspecified Qualifiers: Complication of substance-induced condition: uncomplicated Qualified Code(s): F10.930 - Alcohol use, unspecified with withdrawal, uncomplicated (2) ETOH abuse: Status: Acute Code(s): F10.10 - Alcohol abuse, uncomplicated (3) Tobacco abuse: Status: Acute Code(s): Z72.0 - Tobacco use (4) Methamphetamine use: Status: Acute Code(s): F15.10 - Other stimulant abuse, uncomplicated (5) Marijuana use: Status: Acute Code(s): F12.90 - Cannabis use, unspecified, uncomplicated Plan 1. Early symptoms of EtOH withdrawal in the setting of chronic EtOH abuse -the patient is being admitted to [facility] floor. Patient on phenobarbital based order set along with other adjunctive medications gabapentin, Bentyl, Vistaril, clonidine, Klonopin as needed for alcohol withdrawal symptom control. Patient is on thiamine and folate acid. CIWA monitor. meat and seafood manager 180 consulted. Discussed with Manuel disability case manager. This is his nd admission. The patient did not want to see 18P as he has refused the service. 04/18: As per nursing staff, he is refusing phenobarbitone. He does not want to see 180 disability case manager as he had refused in the service in the past. Patient is discharged home. 2. Chronic alcoholic hepatitis: AST ALT have been elevated in the past. ALT more than AST. Repeat bili normal. 3. Smokeless Tobacco Abuse and history of methamphetamine abuse and cannabis use disorder tobacco cessation strongly recommended. Nicotine patch offered. History of methamphetamine abuse -U tox was negative. 4. History of asthma/COPD with emphysematous bullae with recent exacerbation causing visit to the ER here on March 30, 2025 -no acute flare at this time. 5. Other comorbidities include bipolar disorder, bilateral groin hernia, right more than left colon right inguinal hernia is more than left. Advised follow-up with surgery as an outpatient. Not on treatment for bipolar disorder. DVT prophylaxis - Enoxaparin 40 mg sq daily. Full code verified Discharge medication reconciliation done. Discharge follow-up instructions completed. Discharge process discussed with the patient and all questions were answered to patient's satisfaction. Follow with PCP in 1 to 2 weeks Total time spent, exact 35 minutes on discharge meds reconciliation, examination, coordination of care with nurses and ancillary staff, review of imaging and blood test and discussion with the patient on follow-up instructions. Laboratory Results 04/16/25 21:55: WBC 7.9, RBC 4.43 L, Hgb 13.6, Hct 40.0, MCV 90.3, MCH 30.7, MCHC 34.0, RDW Std Deviation 41.8, RDW Coeff of Bridger 12.6, Plt Count 290, MPV 9.0, Immature Gran % (Auto) 0.300, Neut % (Auto) 71.0 H, Lymph % (Auto) 18.5 L, [place] % (Auto) 6.1, Eos % (Auto) 3.3, Baso % (Auto) 0.8, Absolute Neuts (auto) 5.6, Absolute Lymphs (auto) 1.46, Nucleated RBC % 0, Sodium 140, Potassium 4.3, Chloride 101, Carbon Dioxide 26.4, Anion Gap 12, BUN 22 H, Creatinine 0.97, Estim Creat Clear Calc 72.81, Est GFR (MDRD) Non-Af 96, BUN/Creatinine Ratio 22.4 H, Glucose 104 H, Calcium 10.0, Magnesium 2.0, Total Bilirubin 0.54, AST 44 H, ALT 61 H, Alkaline Phosphatase 60, Total Protein 7.9, Albumin 4.5, Globulin 3.3, Albumin/Globulin Ratio 1.4, Ethyl Alcohol < 10.1 04/17/25 05:09: WBC 5.1, RBC 3.68 L, Hgb 11.4 L, Hct 33.0 L, MCV 89.7, MCH 31.0, MCHC 34.5, RDW Std Deviation 41.7, RDW Coeff of [place]ger 12.7, Plt Count 241, MPV 9.4, Immature Gran % (Auto) 0.400, Neut % (Auto) 52.3, Lymph % (Auto) 27.5, [place] % (Auto) 9.0, Eos % (Auto) 9.8 H, Baso % (Auto) 1.0, Absolute Neuts (auto) 2.7, Absolute Lymphs (auto) 1.40, Nucleated RBC % 0, Sodium 138, Potassium 3.6, Chloride 104, Carbon Dioxide 24.1, Anion Gap 10, BUN 24 H, Creatinine 0.71, Estim Creat Clear Calc 98.44, Est GFR (MDRD) Non-Af 112, BUN/Creatinine Ratio 33.3 H, Glucose 92, Calcium 8.9, Phosphorus 4.5, Total Bilirubin 0.66, AST 35, ALT 44, Alkaline Phosphatase 46, Total Protein 6.1, Albumin 3.6, Globulin 2.4, Albumin/Globulin Ratio 1.5, TSH 0.819 04/17/25 06:50: Urine Color Yellow, Urine Clarity Clear, Urine pH 6.0, Ur Specific [place] 1.025, Urine Protein 30 H, Urine Glucose (UA) Normal, Urine Ketones 5 H, Urine Occult Blood Negative, Urine Nitrite Negative, Urine Bilirubin 1 H, Urine Urobilinogen 1 H, Ur Leukocyte Esterase Negative, Urine RBC 0 SEEN, Urine WBC 0 SEEN, Ur Squamous Epith Cells 0 SEEN, Urine Bacteria 0 SEEN, Urine Mucus 1+, Urine Opiates Screen NEGATIVE, U Buprenorphine Qual NEGATIVE, Ur Oxycodone Screen NEGATIVE, Urine Methadone Screen NEGATIVE, Urine Fentanyl Screen NEGATIVE, Ur Barbiturates Screen PRESUMPTIVE POSITIVE, Ur Phencyclidine Scrn NEGATIVE, Ur Amphetamines Screen PRESUMPTIVE POSITIVE, U Benzodiazepines Scrn NEGATIVE, Urine Cocaine Screen NEGATIVE, U Cannabinoids Screen PRESUMPTIVE POSITIVE Medications at Discharge Home Medications NK 04/16/25 Physical Exam Narrative Seen and examined. As per nursing report, patient refusing medication for alcohol withdrawal. He has also refused for outpatient or inpatient rehab as per Manuel Patient states that he has been drinking alcohol about 2-3 tall boys, 2-3 times a week but previously was drinking more 4-5 every other day. Sometimes he also drinks hard liquor. Physical exam General: Alert, Oriented x3, Cooperative HEENT: Atraumatic, PERRLA, EOMI, Normocephalic. Oral: No Gingival or Mucosal Lesions/ Ulcerations Neck: Supple, No JVD, Negative Carotid Bruits Chest wall/Lungs: Air entry diminished in bilateral lung bases. No crepitation/rhonchi Cardiovascular: Regular rate and rhythm, Normal S1,S2, No M/G/R Abdomen: Bowel Sounds Present, Soft, Non Tender, Non-Distended. Liver not enlarged : No dysuria. No renal angle tenderness. No suprapubic tenderness. Extremities: No edema, Capillary Refill Less than 3 Seconds Skin: No rashes, No breakdown Musculoskeletal: No Tenderness to Palpation of Joints or Extremities Neurological: Cranial nerves II-XII grossly intact, DTR 2+/4. No acute focal neurological deficit. Psych/Mental Status: Normal Affect, Appropriate. Weight / BMI Weight Weight: 129 lb 3.054 oz Body Mass Index (BMI) 20.7 ABG / Lab / Microbiology Data 04/17/25 05:09 04/17/25 05:09 Laboratory: Laboratory Results - last 24 hr 04/18/25 07:50: Phosphorus 3.9 D/C Instructions Weight Bearing Status: Weight bearing as tolerated Call your doctor if you observe: Fever of 101 or Higher, Coldness, Increased Pain, Numbness or Tingling, Change in Color, Inability to urinate, Inability to have a bowel movement, Shortness of breath, Dizziness, Fainting spells, Swelling in the ankles, Chest pain, Prolonged hiccupping, Increased palpitations (irregular heartbeat) and Calf discomfort DC O2, CPAP, BIPAP Needs Home O2 Discharge instructions: No When: IN 2 WEEKS Meaningful Use Info Meaningful Use Meaningful Use Diagnoses (Choose all that apply): None applicable Discharge Plan Admission Admit Date/Time: 04/16/25 23:00 Primary Reason for Your Visit: Alcohol withdrawal Attending Provider: Tom Owen Primary Care Provider: Care Physician,No Primary Consulting Providers: Jaquan Villarreal Instructions Additional Instructions / Restrictions: Follow-up with 180 outpatient Discharge Orders/Prescriptions Prescriptions: No Action NK Referrals / Follow Up: Care Physician,No Primary [Primary Care Provider] - Disposition Disposition (needs filled in before D/C Order can be placed): Home, Self Care Charges/Coding Visit Charges Inpatient E&M: 85909 Disch Hosp >30min
[2025-04-18 15:18] VITALS: BP 109/74; PULSE 66; RESP 16; TEMP 37.1; O2SAT 97
== END 2025-04-18 15:22 | disposition home or self-care (01) | DRG 775 ==
LOC: ED 22:00 → MS3 04-17 00:13
PROVIDERS: Admitting Provider Internal Medicine; Emergency Provider Emergency Medicine; Visit Provider Internal Medicine
DX: F10.139 Alcohol abuse with withdrawal, unspecified (principal); Z59.00 Homelessness unspecified; J43.9 Emphysema, unspecified; F15.10 Other stimulant abuse, uncomplicated; K70.10 Alcoholic hepatitis without ascites; I10 Essential (primary) hypertension; F12.90 Cannabis use, unspecified, uncomplicated; K40.20 Bilateral inguinal hernia, without obstruction or gangrene, not specified as recurrent; Y90.0 Blood alcohol level of less than 20 mg/100 ml; Z86.73 Personal history of transient ischemic attack (TIA), and cerebral infarction without residual deficits
CPT/HCPCS: 36415; 80053; 80307; 81001; 82077; 83735; 84100; 84443; 85025; 94668; 97802; 99284; A4216

== ENCOUNTER 2025-04-27 09:52 | Emergency (ER) | payer MEDICAID, SELFPAY ==
[2025-04-27 09:52] VITALS: BP 108/91; PULSE 82; RESP 15; TEMP 36.6; O2SAT 99
--- NOTE | 2025-04-27 09:59 | EDS_ITS ---
HPI History of Present Illness Chief Complaint: Meds Only Detail of Chief Complaint: Needs metered-dose inhaler Informant: patient Onset/Context/Timing Onset: Today Context: Sudden Onset Timing: Continuous Quality: Patient states he needs a refill on his metered-dose inhaler Current Severity: Not applicable Maximum Severity: Not applicable Worsened by: Whether Relieved by: No refills Associated Symptoms Associated Symptoms: None Narrative Narrative: Patient is a 49-year-old male with history of asthma. He states he has been using his [place] more because of the weather. His metered-dose inhaler reads 0 puffs remaining. Patient has no other symptoms. He denies fever, chills night sweats. Denies rhinorrhea congestion postnasal drainage sore throat. Does have a slight cough. Prior similar symptoms: No Recent Illness/Hospitalization: No PFSH PFSH Medical History Tobacco abuse Alcohol withdrawal ETOH abuse Methamphetamine abuse Asthma Depression Anxiety Methamphetamine abuse Ankle fracture, left Bipolar disorder Depression Anxiety Past history of chewing tobacco use Asthma with COPD Anxiety and depression Inguinal hernia bilateral, non-recurrent Hypertension Stroke/cerebrovascular accident Alcohol abuse [place] of lung GERD (gastroesophageal reflux disease) Home Medications ?Medication ?Instructions ?Recorded ?Last Taken ?Type albuterol sulfate 90 mcg/actuation 2 puff inhalation Q 4H PRN PRN 04/27/25 Unknown Rx aerosol inhaler (Ventolin HFA) Wheezing ##1 Allergy/AdvReac Type Severity Reaction Status Date / Time No Known Allergies Allergy Verified 04/27/25 09:52 Family History Father Alcoholism CAD (coronary artery disease) Heart disease Hypertension Mother Alcoholism Seizures Surgical History History of ankle surgery Social History housing: homeless Smoking Status: Former smoker Smokeless tobacco user: chewing tobacco how long ago did patient quit smoking: Notes no cig tob use, prior chew only but no current, ongoing cannabis use. alcohol intake: current alcohol intake frequency: a few times a week details: 5-6 beers daily, occasionally whiskey. substance use type: marijuana, amphetamines, opiates and methamphetamine ROS ROS ED Constitutional Constitutional ED: Denies chills, fever(s), subjective, sweats or weight loss ENT ENT ED: Denies ear pain, rhinorrhea or sore throat Cardiovascular Cardiovascular: Denies chest pain or palpitations Respiratory/Chest Respiratory/Chest: Reports cough, dyspnea and other Details: Wheezing ; Denies dyspnea on exertion Hematologic/Lymphatic Hematologic/Lymphatic: Reports systems reviewed and no addt'l complaints, except as documented Allergic/Immunologic Allergic/Immunologic ED: Denies mouth swelling, tongue swelling or urticaria EXAM Physical Exam Const Vital Signs: 04/27/25 09:52 Temperature 97.9 F Temperature Source Oral Pulse Rate 82 Respiratory Rate 15 Blood Pressure 108/91 H Blood Pressure Mean 96 Pulse Ox 99 Oxygen Delivery Method Room Air Positive well nourished and well developed General Appearance ED: well developed and NAD; Negative for pallor HEENT Reports moist mucous membranes HEENT Narrative: Head is atraumatic and normocephalic. Ears are normal. Eyes PERRL and EOMs intact bilaterally General Eye ED: Negative for scleral icterus Resp normal respiratory effort and clear to auscultation bilaterally Cardio regular rate, regular rhythm, S1 normal heart sound, S2 normal heart sound and no murmurs Extremity normal to inspection Neuro oriented x3 and CN's II-XII intact bilaterally Sensorium / Orientation: alert Psych mental status grossly normal Skin no rashes or lesions noted, no wounds and skin turgor normal General Skin Exam: Negative for jaundice or pallor MDM MDM MDM Narrative Medical decision making narrative: Patient presents for medication refill. Patient's vitals are unremarkable. Patient was discharged with prescription for metered-dose inhaler with refills. History & Record Review Additional record(s) reviewed:: Prior inpatient record (Patient was admitted April for alcohol withdrawal.) and Prior ED visit (Patient was seen in March for exacerbation of his asthma.) Discharge Plan Triage Chief Complaint: Meds Only ED Provider: Tae Walsh Dx/Rx/DC Orders Clinical Impression: Encounter for medical screening examination, Difficulty refilling prescriptions Instructions: ED Screening Exam Medical Nonurgent Prescriptions: New albuterol sulfate [Ventolin HFA] 90 mcg/actuation HFA aerosol inhaler 2 puff inhalation Q4H PRN PRN (Reason: Wheezing) Qty: 1 2RF Primary Care Provider: Care Physician,No Primary Referrals: Care Physician,No Primary [Primary Care Provider] - Activity Restrictions/Additional Instructions: Follow-up with your primary care physician as needed. The name of your doctor/provider is located on your insurance card. Print Language: Belarusian Disposition Disposition: Home, Self Care
--- OUTSIDE RECORDS SUMMARY | 2025-04-27 10:14 | XMS RPT_ITS | CCD ---
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 Cortes Emergency Provider Mayuri JONES, Dr. Stevenson Emergency Provider Care Physician, No Primary Primary Care Provider Unavailable Michaelle JONES, Dr. Cortes Attending Provider Mayuri JONES, Dr. Stevenson Attending Provider [phone] Jose WEI, Dr. Trent Emergency Provider [phone] de Hal DO, Dr. Partida Admit Provider Unavail able de Hal DO, Dr. Partida Attending Provider Unav ailable Jose WEI, Dr. Trent Emergency Provider [phone] de Hal JONES, Dr. Partida Admit Provider Unavail able de Hal DO, Dr. Partida Other Provider Unavail able Brayden WEI, Dr. Santos Attending Provider Brayden WEI, Dr. Santos Other Provider Care Physician, No Primary Primary Care Unava ilable Jaquan Villarreal Attending Unavailable Jaquan Villarreal Consulting Unavailable Jaquan Villarreal Admitting Unavailable Tom Owen Attending Unavailable Tom Owen Consulting Unavailable Care Physician, No Primary Primary Care Unava ilable Troy Monroy Attending Unavailable Care Physician, No Primary Primary Care Unava ilable Lacho Joy Referring Unavailabl e KlLacho Cadet Attending Unavailabl e Care Physician, No Primary Primary Care Unava ilable Sebastian Braswell Referring Unavailable Sebastian Braswell Attending Unavailable Care Physician, No Primary Primary Care Unava ilable Graham Messina Attending Unavailable Care Physician, No Primary Primary Care Unava ilable Homar Nieves Attending Unavailable Care Physician, No Primary Primary Care Unava ilable Tae Walsh Attending Unavailable Care Physician, No Primary Primary Care Unava ilable Troy Monroy Consulting Unavailable Monroy, Troy Admitting Unavailable Joppvalentine, Graham Attending Unavailable Monroy, Troy Referring Unavailable Jopperi, Graham Consulting Unavailable Care Physician, No Primary Primary Care Unava ilable Trang Valencia Attending Unavailable Erik, Trang Consulting Unavailable Erik, Trang Admitting Unavailable Jopperi, Graham Attending Unavailable Jopperi, Graham Consulting Unavailable Care Physician, No Primary Primary Care Unava ilable Maximilian Bernstein Attending Unavailable Care Physician, No Primary Primary Care Unava ilable Andrew Henning Attending Unavailable Care Physician, No Primary Primary Care Unava ilable Andrew Henning Attending Unavailable Care Physician, No Primary Primary Care Unava ilable Tomasz, Graham Attending Unavailable Erik, Trang Referring Unavailable Erik, Trang Consulting Unavailable Erik Trang Admitting Unavailable Monroy, Troy Consulting Unavailable Monroy, Troy Admitting Unavailable Joppvalentine, Graham Attending Unavailable Monroy, Troy Referring Unavailable Care Physician, No Primary Primary Care Unava ilable Care Physician, No Primary Primary Care Unava ilable Jaquan Villarreal Consulting Unavailable Jaquan Villarreal Admitting Unavailable Tom Owen Attending Unavailable Care Physician, No Primary Primary Care Unava ilable Julius Matthews Attending Unavailable Cassie, Julius Attending Unavailable Care Physician, No Primary Primary Care Unava ilable Julius Matthews Attending Unavailable Care Physician, No Primary Primary Care Unava ilable Care Physician, No Primary Primary Care Unava ilable Graham Messina Attending Unavailable Allergies Allergy Classification Reported Allergen(s) Allergy Type Date of Onset Reaction(s) Facility (1 source) Seasonal allergy; Translations: [SEASONAL ALLERGIES] Propensity to adverse reactions (disorder) 3 [facility] Medications Current Medications Medication [...] TWICE A DAY March 28, 2022 12:00am [place] (Nk) (5 sources) Start: 04-16-2025 [place] (Nk) Active April 16, 2025 12:00am Start: 03-29-2025 [place] (Nk) A ctive March 29, 2025 12:00am Start: 03-19-2022 [place] (Nk) A ctive March 19, 2022 12:00am [...] September 05, 2022 12:00am polyethylene glycol [id number] [id number] mg / potassium chloride 2970 mg / sodium bicarbonate 6740 mg / sodium chloride 5860 mg / sodium sulfate 95946 mg powder for oral solution (1 source) [...] Drug Class(es) Dates Sig (Normalized) Sig (Original) [id number] 200 actuat albuterol 0.09 mg/actuat metered dose [...] mg / clavulanate 125 mg oral tablet (7 sources) Penicillin-class Antibacterial Start: 10-22-2024 End: 03-29-2025 Amoxicillin-Pot Clavulanate 875-125 mg tablet Discontinued 1 {tbl} PO Q12H 10 0 October 22, 2024 1:00am March 29, 2025 5:58pm azithromycin 250 mg oral tablet (7 sources) Macrolide Antimicrobial Start: 09-19-2024 End: 10-21-2024 Azithromycin 250 mg tablet Discontinued 0 PO .COMPLEX 6 0 September 19, 2024 1:00am October 21, 2024 5:27pm For 250 mg dose pack: take 500 mg today (day 1), then 250 mg for 4 days (days 2-5) chlordiazePOXIDE hydrochloride 25 mg oral capsule (7 sources) Benzodiazepine Start: 06-03-2024 End: 08-03-2024 take [...] mg PO 3 TIMES DAILY WITH MEALS 20 0 August 14, 2013 1:00am October 05, 2013 7:14pm with food 12 hr guaiFENesin 1200 mg extended release oral tablet (7 sources) Start: 11-12-2024 End: 03-29-2025 take 1 tablet by mouth twice daily, then take 1 tablet by mouth every twelve hours Guaifenesin (Mucus Relief Er) 1,200 mg Tablet Extended Release 12hr Discontinued 1200 mg PO TWICE A DAY 10 0 November 12, 2024 1:00am March 29, 2025 5:58pm hydrocortisone 10 mg/ml topical cream (7 sources) Corticosteroid Start: 06-02-2024 End: 06-03-2024 Hydrocortisone 1 % cream Discontinued 1 NMA TOPICAL TWICE A DAY 28.4 5 0 June 02, 2024 12:00am June 03, 2024 5:23am Multivitamin (Daily Multi-Vitamin) tablet (8 sources) Start: 10-31-2023 End: 06-03-2024 Multivitamin (Daily Multi-Vitamin) tablet Discontinued 1 {tbl} PO DAILY 30 October 31, 2023 1:00am June 03, 2024 5:23am Start: 10-31-2023 End: 06-03-2024 Multivitamin (Daily Multi-Vi tamin) tablet Discontinued 1 {tbl} PO DAILY October 31, 2023 1:00am June 03, 2024 5:23am Start: 10-31-2023 take 1 tablet by simón th once daily Multivitamin (Daily Multi-Vitamin) tablet Active 1 TABLET PO DAILY October 31, 2023 12:00am Multivitamin Tablet (7 sources) Start: 11-12-2024 End: 03-29-2025 Multivitamin Tablet Disconti nued 1 {tbl} PO WITH LUNCH 0 November 12, 2024 1:00am March 29, 2025 5:59pm Start: 11-12-2024 Multivitamin T ablet Active 1 {tbl} PO WITH LUNCH 0 November 12, 2024 1:00am naproxen 500 mg oral tablet (16 sources) Nonsteroidal Anti-inflammatory Drug Start: 03-26-2023 End: 09-01-2023 take 1 tablet by mouth twice daily Naproxen 500 mg tablet Discontinued 500 mg PO TWICE A DAY 14 0 March 26, 2023 12:00am September 01, 2023 1:30am pain ondansetron 4 mg disintegrating oral tablet (7 sources) Serotonin-3 Receptor Antagonist Start: 06-03-2024 End: 08-03-2024 take 1 tablet by mouth three times daily as needed for nausea and vomiting Ondansetron 4 mg tablet,disintegr ating Discontinued 4 mg PO THREE TIMES A DAY as needed for nausea and vomiting June 03, 2024 6:21am August 03, 2024 8:40pm penicillin v potassium 500 mg oral tablet (16 sources) Start: 03-26-2023 End: 09-01-2023 take 1 [...] mg / trimethoprim 160 mg oral tablet (7 sources) Dihydrofolate Reductase Inhibitor Antibacterial, Sulfonamide Antimicrobial [...] intoxication; Translations: [Alcohol abuse with intoxication, unspecified] Onset: 04-18-2025 Chronic Alcohol-related disorders (20 sources) Alcohol intoxication; Translations: [Alcohol use, unspecified with intoxication, unspecified] Episodic Anxiety disorders (14 sources) Anxiety; Translations: [Anxiety disorder, unspecified] 06-11-2024 Chronic Asthma (20 sources) Exacerbation of asthma; Translations: [Unspecified asthma with (acute) exacerbation] Onset: 11-19-2024 09-21-2020 Chronic Cardiac dysrhythmias (20 sources) ECG: sinus tachycardia; Translations: [Tachycardia, unspecified] 10-24-2020 Episodic Chronic obstructive pulmonary disease and bronchiectasis (20 sources) [place] of lung; Translations: [Emphysema, unspecified] 02-07-2021 Chronic Chronic obstructive pulmonary disease and bronchiectasis (7 sources) Bronchitis; Translations: [Bronchitis, not specified as acute or chronic] 09-27-2024 Episodic Conditions associated with dizziness or vertigo (20 sources) Dizziness; Translations: [Dizziness and giddiness] 02-20-2022 Episodic Diseases of white blood cells (10 sources) Leukocytosis; Translations: [Elevated white blood cell count, unspecified] Onset: 11-19-2024 11-19-2024 Chronic Disorders of teeth and jaw (20 sources) Dislocation of tooth; Translations: [Dislocation of tooth, initial encounter] 11-03-2022 Episodic E Codes: Fall (20 sources) Fall; Translations: [Unspecified fall, initial encounter] 11-03-2022 Episodic Esophageal disorders (20 sources) Gastroesophageal reflux disease; Translations: [Gastro-esophageal reflux disease without esophagitis] 03-19-2022 Chronic Essential hypertension (7 sources) Hypertensive disorder; Translations: [Essential (primary) hypertension] [...] Translations: [Weakness] Onset: 04-02-2025 Episodic Mood disorders (14 sources) Bipolar disorder; Translations: [Bipolar disorder, unspecified] 06-11-2024 Chronic Nonspecific chest pain (5 sources) Chest pain; Translations: [Chest pain, unspecified] 03-29-2025 Episodic Open wounds of extremities (19 sources) Laceration of hand; Translations: [Laceration without foreign body of left hand, initial encounter] 12-15-2022 Episodic Open wounds of head; neck; and trunk (20 sources) Laceration of lip ; Translations: [Laceration without foreign body of lip, initial encounter] 11-03-2022 Episodic Other lower respiratory disease (8 sources) Radiologic infiltrate of lung ; Translations: [Other nonspecific abnormal finding of lung field] 09-13-2022 Episodic Other lower respiratory disease (20 sources) H/O: asthma; Translations: [Personal history of other diseases of the respiratory system] 10-31-2022 Episodic Other lower respiratory disease (16 sources) Single lobe lung infiltrate; Translations: [Other nonspecific abnormal finding of lung field] 09-13-2022 Episodic Other lower respiratory disease (7 sources) Cough; Translations: [Cough] 12-13-2024 Episodic Other lower respiratory disease (7 sources) Nodule of lung; Translations: [Solitary pulmonary [...] of colon] 08-28-2023 Episodic Other skin disorders (7 sources) Folliculitis; Translations: [Follicular disorder, unspecified] 06-10-2024 Episodic Other upper respiratory infections (20 sources) Viral upper respiratory tract infection; Translations: [Acute upper respiratory infection, unspecified] Episodic Residual codes; unclassified (20 sources) Drug therapy finding; Translations: [Other specified health status] 08-03-2022 Episodic Residual codes; unclassified (1 source) Alcoholism; Translations: [Alcohol use disorder] 06-11-2024 Episodic Residual codes; unclassified (6 sources) Other specified conditions influencing health status; Translations: [Alcohol use disorder] 06-11-2024 Episodic Residual codes; unclassified (6 sources) Tobacco user; Translations: [Tobacco use] 04-16-2025 Episodic Residual codes; unclassified (1 source) Tobacco use; Translations: [Tobacco use] Onset: 04-18-2025 Episodic Screening and history of mental health and substance abuse codes (11 sources) H/O: manic depressive disorder; Translations: [Personal history of other mental and behavioral disorders] 06-06-2023 Episodic Substance-related disorders (20 sources) Substance abuse; Translations: [Other psychoactive substance abuse, uncomplicated] Onset: 11-19-2024 Chronic Substance-related disorders (7 sources) Marijuana user; Translations: [Cannabis use, unspecified, uncomplicated] Onset: 04-18-2025 04-16-2025 Episodic Superficial injury; contusion (20 sources) Contusion of nose; Translations: [Contusion of nose, initial encounter] 11-03-2022 Episodic Syncope (20 sources) Syncope; Translations: [Syncope and collapse] 11-03-2022 Episodic Unclassified (1 source) Other stimulant use, unspecified with intoxication, uncomplicated / F15.920(ICD-10) Onset: 06-05-2018 Unclassified (1 source) Other psychoactive substance use, 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(ICD-10) Onset: 06-05-2018 Unclassified (1 source) Alcohol withdrawal delirium, acute, mixed level of activity Unclassified (1 source) Alcohol use, unspecified with withdrawal, uncomplicated; Translations: [Alcohol use, unspecified with withdrawal, uncomplicated] Onset: 04-18-2025 Unclassified (1 source) Cough, unspecified; Translations: [Cough, unspecified] Onset: 12-23-2024 Unclassified (1 source) Other acidosis; Translations: [Other acidosis] Onset: 11-19-2024 Past or Other Problems Problem Classification Problem Date Documented Da te Episodic/Chronic Administrative/social admission (20 sources) Repeated prescription; Translations: [Encounter for issue of repeat prescription] Onset: 12-02-2024 10-31-2022 Episodic Diabetes mellitus without complication (10 sources) Hyperglycemia; Translations: [Hyperglycemia, unspecified] Onset: 11-19-2024 [...] 11-19-2024 Episodic Respiratory failure; insufficiency; arrest (adult) (13 sources) Acute hypoxemic and hypercapnic respiratory failure; [...] Test Name Value Interpretation Reference Range Facility Discharge Instructionon 04-01 Discharge Instruction Normal [facility] Phosphoruson 04-18-2025 Phosphate [Mass/Vol] 3.9 mg/dL Normal 2.7-4.5 [facility] Comment on above: Performed By: #### L 501.2300 ####[facility] [address] [place], [place], [address] Absolute lymphocyte countOrd ered By: Jaquan Hong on 04-17-2025 Lymphocytes Auto (Unsp spec) [#/Vol] 1.40 10*3/uL 0.83-4.51 [facility] Absolute neutrophil countOrd ered By: Jaquan Hong on 04-17-2025 Neutrophils (Bld) [#/Vol] 2.7 10*3/uL 2.0-7.7 [facility] Amphetamine detection with 1 000 ng/mL as cutoffOrdered By: Jaquan Hong on 04-17-2025 Amphetamines Screen method >1000 ng/mL Ql (U) Positive < 200 ng/mL [facility] Comment on above: If confirmation test ing is needed, a separate order will be required to send out testing to the reference laboratory. Anion gap in Serum or Plasma Ordered By: Jaquan Hong on 04-17-2025 Anion gap [Moles/Vol] 10 mmol/L 5-15 [facility] Automated blood erythrocyte countOrdered By: Jaquan Hong on 04-17-2025 RBC (Bld) [#/Vol] 3.68 10*6/uL Low 4.6-6.[address] [facility] Comment on above: Performed By: #### L 500.4050, L100.0100, L501.2300, [id number] ####[facility] [address] [place], [address] Automated blood hematocrit ( percentage)Ordered By: Jaquan Hong on 04-17-2025 Hematocrit (Bld) [Volume fraction] 33.0 % Low 40-54 [facility] Comment on above: Performed By: #### L 500.4050, L100.0100, L501.2300, [id number] ####[facility] [address] [place], [address] Automated lymphocyte count a s percentage of total leukocytesOrdered By: Jaquan Hong on 04-17-2025 Lymphocytes/100 WBC Auto (Unsp spec) 27.5 % 19-41 [facility] BUN/creatinine ratioOrdered By: Jaquan Hong on 04-17-2025 Urea nitrogen/Creatinine [Mass ratio] 33.3 mg/mg High 10-20 [facility] Basophil percentageOrdered B y: Jaquan Hong on 04-17-2025 Basophils/100 WBC (Bld) 1.0 % Normal 0-1 [facility] Comment on above: Performed By: #### L 500.4050, L100.0100, L501.2300, [id number] ####[facility] [address] [place], [address] Bilirubin Test strip Ql (U)O rdered By: Jaquan Hong on 04-17-2025 Bilirubin Ql (U) 1 mg/dL High Negative [facility] Comment on above: COLOR OF URINE MAY A FFECT DIPSTICK RESULTS. Bilirubin, totalOrdered By: Jaquan Hong on 04-17-2025 Bilirubin [Mass/Vol] 0.66 mg/dL 0.00-1.30 [facility] CBC W/Diff, Automatedon 04-01 Absolute Lymph 1.40 X10 3/uL Normal 0.83-4.51 [facility] Comment on above: Performed By: #### L 500.4050, L100.0100, L501.2300, [id number] ####[facility] [address] [place], [address] Absolute Neut 2.7 X10 3/uL Normal 2.0-7.7 [facility] Comment on above: Performed By: #### L 500.4050, L100.0100, L501.2300, [id number] ####[facility] [address] [place], [address] IG% 0.400 Normal 0.0-0.9 [facility] Comment on above: Result Comment: IG% - Immature Granulocytes (promyelocytes, myelocytes andmetamyelocytes) > 1% indicates that a LEFT SHIFT is Present. Performed By: #### L 500.4050, L100.0100, L501.2300, [id number] ####[facility] [address] [place], [address] Lymphocytes/100 WBC (Bld) 27.5 % Normal 19-41 [facility] Comment on above: Performed By: #### L 500.4050, L100.0100, L501.2300, [id number] ####[facility] [address] [place], [address] Nucleated RBC (Bld) [#/Vol] 0 10*3/uL Normal 0-5 [facility] Comment on above: Performed By: #### L 500.4050, L100.0100, L501.2300, [id number] ####[facility] [address] [place], [address] RDW SD 41.7 fl Normal 35.1-43.9 [facility] Comment on above: Performed By: #### L 500.4050, L100.0100, L501.2300, [id number] ####[facility] [address] [place], [address] Carbon dioxide, total [Moles /volume] in Central venous bloodOrdered By: Jaquan Hong on 04-17-2025 CO2 [Moles/Vol] 24.1 mmol/L 21.0-32.0 [facility] Chloride assayOrdered By: Coy Hong on 04-17-2025 Chloride [Moles/Vol] 104 mmol/L 98-108 [facility] Comprehensive Metabolic Prof ilon 04-17-2025 Albumin [Mass/Vol] 3.6 g/dL Normal 3.5-5.0 [facility] Comment on above: Performed By: #### L 500.4050, L100.0100, L501.2300, [id number] ####[facility] [address] [place], [address] Albumin/Globulin [Mass ratio] 1.5 {ratio} Normal 0.9-2.4 [facility] Comment on above: Performed By: #### L 500.4050, L100.0100, L501.2300, [id number] ####[facility] [address] [place], [address] ALK PHOS 46 U/L Normal 40-129 [facility] Comment on above: Performed By: #### L 500.4050, L100.0100, L501.2300, [id number] ####[facility] [address] [place], [address] ALT [Catalytic activity/Vol] 44 U/L Normal <=46 [facility] Comment on above: Performed By: #### L 500.4050, L100.0100, L501.2300, [id number] ####[facility] [address] [place], [address] AST [Catalytic activity/Vol] 35 U/L Normal <=37 [facility] Comment on above: Performed By: #### L 500.4050, L100.0100, L501.2300, [id number] ####[facility] [address] [place], [address] Bilirubin [Mass/Vol] 0.66 mg/dL Normal 0.00-1.30 [facility] Comment on above: Performed By: #### L 500.4050, L100.0100, L501.2300, [id number] ####[facility] [address] [place], [address] BUN/CRE 33.3 RATIO High 10-20 [facility] Comment on above: Performed By: #### L 500.4050, L100.0100, L501.2300, [id number] ####[facility] [address] [place], [address] Calcium [Mass/Vol] 8.9 mg/dL Normal 7.6-11.0 [facility] Comment on above: Performed By: #### L 500.4050, L100.0100, L501.2300, [id number] ####[facility] [address], [address] Chloride [Moles/Vol] 104 mmol/L Normal 98-108 [facility] Comment on above: Performed By: #### L 500.4050, L100.0100, L501.2300, [id number] ####[facility] [address] [place], [address] CO2 [Moles/Vol] 24.1 mmol/L Normal 21.0-32.0 [facility] Comment on above: Performed By: #### L 500.4050, L100.0100, L501.2300, [id number] ####[facility] [address] [place], [address] Creatinine [Mass/Vol] 0.71 mg/dL Normal 0.70-1.20 [facility] Comment on above: Performed By: #### L 500.4050, L100.0100, L501.2300, [id number] ####[facility] [address] [place], [address] ECRCL 98.44 ml/min Normal 50-250 [facility] Comment on above: Performed By: #### L 500.4050, L100.0100, L501.2300, [id number] ####[facility] [address] [place], [address] GAP 10 Normal 5-15 [facility] Comment on above: Performed By: #### L 500.4050, L100.0100, L501.2300, [id number] ####[facility] [address] [place], [address] GFR/1.73 sq M.predicted among non-blacks MDRD (S/P/Bld) [Vol rate/Area] 112 mL/min/{1.73_m2} Normal >60 [facility] Comment on above: Result Comment: mL/m in/1.73m2 CKD-EPI Creatinine Equation (2020) Performed By: #### L 500.4050, L100.0100, L501.2300, [id number] ####[facility] [address] [place], [address] Globulin (S) [Mass/Vol] 2.4 g/dL Normal 2.2-4.2 [facility] Comment on above: Performed By: #### L 500.4050, L100.0100, L501.2300, [id number] ####[facility] [address] [place], [address] Glucose [Mass/Vol] 92 mg/dL Normal 70-99 [facility] Comment on above: Performed By: #### L 500.4050, L100.0100, L501.2300, [id number] ####[facility] [address] [place], [address] Potassium [Moles/Vol] 3.6 mmol/L Normal 3.3-5.1 [facility] Comment on above: Performed By: #### L 500.4050, L100.0100, L501.2300, [id number] ####[facility] [address] [place], [address] Sodium [Moles/Vol] 138 mmol/L Normal 133-145 [facility] Comment on above: Performed By: #### L 500.4050, L100.0100, L501.2300, [id number] ####[facility] [address] [place], [address] T PROT 6.1 g/dL Normal 5.9-8.4 [facility] Comment on above: Performed By: #### L 500.4050, L100.0100, L501.2300, [id number] ####[facility] [address] [place], [address] Urea nitrogen [Mass/Vol] 24 mg/dL High 4-19 [facility] Comment on above: Performed By: #### L 500.4050, L100.0100, L501.2300, [id number] ####[facility] [address] [place], [address] Eosinophil percentageOrdered By: Jaquan Hong on 04-17-2025 Eosinophils/100 WBC (Bld) 9.8 % High 0-5 [facility] Comment on above: Performed By: #### L 500.4050, L100.0100, L501.2300, [id number] ####[facility] [address] [place], [address] Erythrocyte distribution wid th ratioOrdered By: Jaquan Hong on 04-17-2025 Erythrocyte distribution width (RBC) [Ratio] 12.7 % Normal 11.6-14.6 [facility] Comment on above: Performed By: #### L 500.4050, L100.0100, L501.2300, [id number] ####[facility] [address] [place], [address] Erythrocyte distribution wid th standard deviationOrdered By: Jaquan Hong on 04-17-2025 Erythrocyte distribution width (RBC) [Ratio] 41.7 fl 35.1-43.9 [facility] Glomerular filtration rate ( GFR) estimation/1.73 sq m using serum, plasma, or whole bOrdered By: Jaquan Hong on 04-17-2025 GFR/1.73 sq M.predicted among non-blacks MDRD (S/P/Bld) [Vol rate/Area] 112 mL/min/{1.73_m2} >60 [facility] Comment on above: mL/min/1.73m2 CKD-EP I Creatinine Equation (2020) Hemoglobin measurementOrdere d By: Jaquan Hong on 04-17-2025 Hemoglobin (Bld) [Mass/Vol] 11.4 g/dL Low 13.0-16.5 [facility] Comment on above: Performed By: #### L 500.4050, L100.0100, L501.2300, [id number] ####[facility] [address] [place], [address] Immature granulocytes/100 WB C Auto (Bld)Ordered By: Jaquan Hong on 04-17-2025 Immature granulocytes/100 WBC (Bld) 0.400 % 0.0-0.9 [facility] Comment on above: IG% - Immature Granu locytes (promyelocytes, myelocytes and metamyelocytes) > 1% indicates that a LEFT SHIFT is Present. Ketones Test strip Ql (U)Ord ered By: Jaquan Hong on 04-17-2025 Ketones Ql (U) 5 mg/dl High Negative [facility] Laboratory - Chemistry and C hemistry - challengeOrdered By: Jaquan Hong on 04-17-2025 AST [Catalytic activity/Vol] 35 U/L <38 [facility] MCV (mean corpuscular volume ) determinationOrdered By: Jaquan Hong on 04-17-2025 MCV (RBC) [Entitic vol] 89.7 fL Normal 80-94 [facility] Comment on above: Performed By: #### L 500.4050, L100.0100, L501.2300, L501.9520 ####[facility] [address] [place], [address] Mean corpuscular hemoglobin (MCH) determinationOrdered By: Jaquan Hong on 04-17-2025 MCH (RBC) [Entitic mass] 31.0 pg Normal 27.0-32.0 [facility] Comment on above: Performed By: #### L 500.4050, L100.0100, L501.2300, L501.9520 ####[facility] [address] [place], [place], [id number] Mean corpuscular hemoglobin concentration (MCHC) determinationOrdered By: Jaquan Hong on 04-17-2025 MCHC (RBC) [Mass/Vol] 34.5 g/dL Normal 32-36 [facility] Comment on above: Performed By: #### L 500.4050, L100.0100, L501.2300, L501.9520 ####[facility] [address] [place], [place], [id number] Mean platelet volume determi nationOrdered By: Jaquan Hong on 04-17-2025 Platelet mean volume (Bld) [Entitic vol] 9.4 fL Normal 6.2-12.0 [facility] Comment on above: Performed By: #### L 500.4050, L100.0100, L501.2300, L501.9520 ####[facility] [address] [place], [address] Microscopic analysis of urin e for red blood cells (RBC)Ordered By: Jaquan Hong on 04-17-2025 Microscopic analysis of urine for red blood cells (RBC) 0 SEEN /hpf 0-5 [facility] Monocyte percentageOrdered B y: Jaquan Hong on 04-17-2025 Monocytes/100 WBC (Bld) 9.0 % Normal 0-10 [facility] Comment on above: Performed By: #### L 500.4050, L100.0100, L501.2300, L501.9520 ####[facility] [address] [place], [address] Mucus LM Ql (Urine sed)Order ed By: Jaquan Hong on 04-17-2025 Mucus Ql (Urine sed) 1+ /hpf [facility] Neutrophil percentageOrdered By: Jaquan Hong on 04-17-2025 Neutrophils/100 WBC (Bld) 52.3 % Normal 47-70 [facility] Comment on above: Performed By: #### L 500.4050, L100.0100, L501.2300, L501.9520 ####[facility] [address] [place], [place], [id number] Nitrite Test strip Ql (U)Ord ered By: Jaquan Hong on 04-17-2025 Nitrite Ql (U) Negative Negative [facility] No Panel InformationOrdered By: Jaquan Hong on 04-17-2025 Urine Buprenorphine Qualitative Negative < 200 ng/mL [facility] Urine Oxycodone Screen Negative < 100 ng/mL [facility] Nucleated red blood cell per centageOrdered By: Jaquan Hong on 04-17-2025 Nucleated RBC/100 WBC (Bld) [Ratio] 0 % 0-5 [facility] Phosphoruson 04-17-2025 Phosphate [Mass/Vol] 4.5 mg/dL Normal 2.7-4.5 [facility] Comment on above: Performed By: #### L 500.4050, L100.0100, L501.2300, L501.9520 ####[facility] [address] [place], [address] Platelet countOrdered By: Coy Hong on 04-17-2025 Platelets (Bld) [#/Vol] 241 10*3/uL Normal 150-450 [facility] Comment on above: Performed By: #### L 500.4050, L100.0100, L501.2300, L501.9520 ####[facility] [address] [place], [address] Potassium measurement (mass/ volume)Ordered By: Jaquan Hong on 04-17-2025 Potassium (Unsp spec) [Mass/Vol] 3.6 mmol/L 3.3-5.1 [facility] Protein Test strip Ql (U)Ord ered By: Jaquan Hong on 04-17-2025 Protein Ql (U) 30 mg/dl High Negative [facility] Quantitative urine opiates m easurementOrdered By: Jaquan Hong on 04-17-2025 Opiates Ql (U) Negative < 300 ng/mL [facility] Screening urine fentanyl luisito surementOrdered By: Jaquan Hong on 04-17-2025 fentaNYL Screen Ql (U) Negative [facility] Serum creatinine measurement (mass/volume)Ordered By: Jaquan Hong on 04-17-2025 Creatinine [Mass/Vol] 0.71 mg/dL 0.70-1.20 [facility] Serum globulin measurementOr dered By: Jaquan Hong on 04-17-2025 Globulin (S) [Mass/Vol] 2.4 g/dL 2.2-4.2 [facility] Serum glucose measurement (m ass/volume)Ordered By: Jaquan Hong on 04-17-2025 Glucose [Mass/Vol] 92 mg/dL 70-99 [facility] Serum or plasma alanine love otransferase (ALT) measurementOrdered By: Jaquan Hong on 04-17-2025 ALT [Catalytic activity/Vol] 44 U/L <47 [facility] Serum or plasma albumin micah urement (mass/volume)Ordered By: Jaquan Hong on 04-17-2025 Albumin [Mass/Vol] 3.6 g/dL 3.5-5.0 [facility] Serum or plasma albumin/glob ulin mass ratioOrdered By: Jaquan Hong on 04-17-2025 Albumin/Globulin [Mass ratio] 1.5 {ratio} 0.9-2.4 [facility] Serum or plasma alkaline jd sphatase measurementOrdered By: Jaquan Hong on 04-17-2025 ALP [Catalytic activity/Vol] 46 U/L 40-129 [facility] Serum or plasma calcium micah urement (mass/volume)Ordered By: Jaquan Hong on 04-17-2025 Calcium [Mass/Vol] 8.9 mg/dL 7.6-11.0 [facility] Serum or plasma urea nitroge n measurement (mass/volume)Ordered By: Jaquan Hong on 04-17-2025 Urea nitrogen [Mass/Vol] 24 mg/dL High 4-19 [facility] Sodium levelOrdered By: Sung Hong on 04-17-2025 Sodium [Moles/Vol] 138 mmol/L 133-145 [facility] Squamous epithelial cells de tection in urine sediment by light microscopyOrdered By: Jaquan Hong on 04-17-2025 Epithelial cells.squamous LM Ql (Urine sed) 0 SEEN /hpf 0-5 [facility] TSH DL <= 0.005 mIU/L QnOrde red By: Jaquan Hong on 04-17-2025 TSH Qn 0.819 uIU/mL 0.300-4.200 [facility] Thyroid Stim Hormone (TSH)on 04-17-2025 TSH 0.819 uIU/mL Normal 0.300-4.200 [facility] Comment on above: Performed By: #### L 500.4050, L100.0100, L501.2300, L501.9520 ####[facility] [address] [place], [address] Total proteinOrdered By: Mehul Hong on 04-17-2025 Protein [Mass/Vol] 6.1 g/dL 5.9-8.4 [facility] Urinalysis, Completeon 04-17 Mucus Ql (Urine sed) 1+ /hpf Normal [facility] Comment on above: Order Comment: CLEAN CATCH Performed By: #### L 400.0001 ####[facility] [address] [place], [address] BACTERIA 0 SEEN Normal None Seen [facility] Comment on above: Order Comment: CLEAN CATCH Performed By: #### L 400.0001 ####[facility] [address] [place], [address] EPI,SQUAMOUS 0 SEEN Normal 0-5 [facility] Comment on above: Order Comment: CLEAN CATCH Performed By: #### L 400.0001 ####[facility] [address] [place] [address] RBC 0 SEEN Normal 0-5 [facility] Comment on above: Order Comment: CLEAN CATCH Performed By: #### L 400.0001 ####[facility] [address] [place] [address] WBC 0 SEEN Normal 0-5 [facility] Comment on above: Order Comment: CLEAN CATCH Performed By: #### L 400.0001 ####[facility] [address] [place] [address] Urine Drug Screen (VISTA)on 04-17-2025 AMPHETAMINES Positive Normal <1000 ng/mL [facility] Comment on above: Result Comment: If c onfirmation testing is needed, a separate order will berequired to send out testing to the reference laboratory. Performed By: #### L 505.5000 ####[facility] [address] [place] [address] BARBITIURATES Positive Normal < 200 ng/mL [facility] Comment on above: Result Comment: If c onfirmation testing is needed, a separate order will berequired to send out testing to the reference laboratory. Performed By: #### L 505.5000 ####[facility] [address] [place] [address] BENZODIAZIPINE Negative Normal < 200 ng/mL [facility] Comment on above: Performed By: #### L 505.5000 ####[facility] [address] [place] [address] BUP Ur Drug Scr Negative Normal < 200 ng/mL [facility] Comment on above: Performed By: #### L 505.5000 ####[facility] [address] [place] [address] COCAINE Negative Normal < 300 ng/mL [facility] Comment on above: Performed By: #### L 505.5000 ####[facility] [address] [place] [address] Fentanyl Negative Normal [facility] Comment on above: Performed By: #### L 505.5000 ####[facility] [address] [place] [address] METHADONE Negative Normal < 300 ng/mL [facility] Comment on above: Performed By: #### L 505.5000 ####[facility] [address] [place] [address] OPIATES Negative Normal < 300 ng/mL [facility] Comment on above: Performed By: #### L 505.5000 ####[facility] [address] [place] [address] OXYCODONE Negative Normal < 100 ng/mL [facility] Comment on above: Performed By: #### L 505.5000 ####[facility] [address] [place] [address] PCP Negative Normal < 25 ng/mL [facility] Comment on above: Performed By: #### L 505.5000 ####[facility] [address] [place] [address] THC Positive Normal < 50 ng/mL [facility] Comment on above: Result Comment: If c onfirmation testing is needed, a separate order will berequired to send out testing to the reference laboratory. Performed By: #### L 505.5000 ####[facility] [address] [place] [address] Urine benzodiazepine levelOr dered By: Jaquan Hong on 04-17-2025 Benzodiazepines Ql (U) Negative < 200 ng/mL [facility] Urine clarityOrdered By: Mehul Hong on 04-17-2025 Clarity (U) Clear Clear [facility] Urine cocaine levelOrdered B y: Jaquan Hong on 04-17-2025 Cocaine Ql (U) Negative < 300 ng/mL [facility] Urine color determinationOrd ered By: Jaquan Hong on 04-17-2025 Color (U) Yellow Yellow [facility] Urine jwvye-5-zdwyuxklyfgmrr abinol (THC) measurementOrdered By: Jaquan Hong on 04-17-2025 Cannabinoids Screen Ql (U) Positive < 50 ng/mL [facility] Comment on above: If confirmation test ing is needed, a separate order will be required to send out testing to the reference laboratory. Urine glucose detectionOrder ed By: Jaquan Hong on 04-17-2025 Glucose Ql (U) Normal mg/dl Normal [facility] Urine leukocyte esterase det ection by dipstickOrdered By: Jaquan Hong on 04-17-2025 Leukocyte esterase Test strip Ql (U) Negative Negative [facility] Urine pHOrdered By: Jaquan moran on 04-17-2025 pH (U) 6.0 [pH] 5.0 - 8.0 [facility] Urine phencyclidine (PCP) de tectionOrdered By: Jaquan Hong on 04-17-2025 Phencyclidine Ql (U) Negative < 25 ng/mL [facility] Urine sediment bacteria coun t by microscopy (number/high power field)Ordered By: Jaquan Hong on 04-17-2025 Bacteria LM.HPF (Urine sed) [#/Area] 0 /[HPF] None Seen [facility] Urine specific gravity measu rementOrdered By: Jaquan Hong on 04-17-2025 Specific gravity (U) [Rel density] 1.025 1.002-1.030 [facility] Urine urobilinogen measureme ntOrdered By: Jaquan Hong on 04-17-2025 Urobilinogen Ql (U) 1 mg/dl High Normal [facility] White blood cell (WBC) count Ordered By: Jaquan Hong on 04-17-2025 WBC (Bld) [#/Vol] 5.1 10*3/uL Normal 4.4-11.0 [facility] Comment on above: Performed By: #### L 500.4050, L100.0100, L501.2300, L501.9520 ####[facility] [address] [place], [place], [id number] White blood cell countOrdere d By: Jaquan Hong on 04-17-2025 White blood cell count 0 SEEN /hpf 0-5 [facility] Absolute lymphocyte countOrd ered By: Twan Garcia on 04-16-2025 Lymphocytes Auto (Unsp spec) [#/Vol] 1.46 10*3/uL 0.83-4.51 [facility] Absolute neutrophil countOrd ered By: Twan Garcia on 04-16-2025 Neutrophils (Bld) [#/Vol] 5.6 10*3/uL 2.0-7.7 [facility] Alcohol, Blood (Medical)-Ser umon 04-16-2025 SERUM ETOH < 10.1 Normal <=10.0 [facility] Comment on above: Result Comment: This test is for medical purposes only. The legaldefinition of intoxication varies according to local law. Performed By: #### L 501.9100, L500.4050, L505.5000, L100.0100 ####[facility] [address] [place], [place], [id number] Anion gap in Serum or Plasma Ordered By: Twan Garcia on 04-16-2025 Anion gap [Moles/Vol] 12 mmol/L 5-15 [facility] Automated lymphocyte count a s percentage of total leukocytesOrdered By: Twan Garcia on 04-16-2025 Lymphocytes/100 WBC Auto (Unsp spec) 18.5 % Low 19-41 [facility] BUN/creatinine ratioOrdered By: Twan Garcia on 04-16-2025 Urea nitrogen/Creatinine [Mass ratio] 22.4 mg/mg High 10-20 [facility] Basophil percentageOrdered B y: Twan Garcia on 04-16-2025 Basophils/100 WBC (Bld) 0.8 % 0-1 [facility] Bilirubin, totalOrdered By: Twan Garcia on 04-16-2025 Bilirubin [Mass/Vol] 0.54 mg/dL 0.00-1.30 [facility] CBC W/Diff, Automatedon 04-01 Absolute Lymph 1.46 X10 3/uL Normal 0.83-4.51 [facility] Comment on above: Performed By: #### L 501.9100, L500.4050, L505.5000, L100.0100 ####[facility] [address] [place], [address] Absolute Neut 5.6 X10 3/uL Normal 2.0-7.7 [facility] Comment on above: Performed By: #### L 501.9100, L500.4050, L505.5000, L100.0100 ####[facility] [address] [place], [address] Basophils/100 WBC (Bld) 0.8 % Normal 0-1 [facility] Comment on above: Performed By: #### L 501.9100, L500.4050, L505.5000, L100.0100 ####[facility] [address] [place], [address] Eosinophils/100 WBC (Bld) 3.3 % Normal 0-5 [facility] Comment on above: Performed By: #### L 501.9100, L500.4050, L505.5000, L100.0100 ####[facility] [address] [place], [address] Erythrocyte distribution width (RBC) [Ratio] 12.6 % Normal 11.6-14.6 [facility] Comment on above: Performed By: #### L 501.9100, L500.4050, L505.5000, L100.0100 ####[facility] [address] [place], [address] Hematocrit (Bld) [Volume fraction] 40.0 % Normal 40-54 [facility] Comment on above: Performed By: #### L 501.9100, L500.4050, L505.5000, L100.0100 ####[facility] [address] [place], [address] Hemoglobin (Bld) [Mass/Vol] 13.6 g/dL Normal 13.0-16.5 [facility] Comment on above: Performed By: #### L 501.9100, L500.4050, L505.5000, L100.0100 ####[facility] [address] [place], [address] IG% 0.300 Normal 0.0-0.9 [facility] Comment on above: Result Comment: IG% - Immature Granulocytes (promyelocytes, myelocytes andmetamyelocytes) > 1% indicates that a LEFT SHIFT is Present. Performed By: #### L 501.9100, L500.4050, L505.5000, L100.0100 ####[facility] [address] [place], [address] Lymphocytes/100 WBC (Bld) 18.5 % Low 19-41 [facility] Comment on above: Performed By: #### L 501.9100, L500.4050, L505.5000, L100.0100 ####[facility] [address] [place], [address] MCH (RBC) [Entitic mass] 30.7 pg Normal 27.0-32.0 [facility] Comment on above: Performed By: #### L 501.9100, L500.4050, L505.5000, L100.0100 ####[facility] [address] [place], [address] MCHC (RBC) [Mass/Vol] 34.0 g/dL Normal 32-36 [facility] Comment on above: Performed By: #### L 501.9100, L500.4050, L505.5000, L100.0100 ####[facility] [address] [place], [address] MCV (RBC) [Entitic vol] 90.3 fL Normal 80-94 [facility] Comment on above: Performed By: #### L 501.9100, L500.4050, L505.5000, L100.0100 ####[facility] [address] [place], [address] Monocytes/100 WBC (Bld) 6.1 % Normal 0-10 [facility] Comment on above: Performed By: #### L 501.9100, L500.4050, L505.5000, L100.0100 ####[facility] [address] [place], [address] Neutrophils/100 WBC (Bld) 71.0 % High 47-70 [facility] Comment on above: Performed By: #### L 501.9100, L500.4050, L505.5000, L100.0100 ####[facility] [address] [place], [address] Nucleated RBC (Bld) [#/Vol] 0 10*3/uL Normal 0-5 [facility] Comment on above: Performed By: #### L 501.9100, L500.4050, L505.5000, L100.0100 ####[facility] [address] [place], [address] Platelet mean volume (Bld) [Entitic vol] 9.0 fL Normal 6.2-12.0 [facility] Comment on above: Performed By: #### L 501.9100, L500.4050, L505.5000, L100.0100 ####[facility] [address] [place], [address] Platelets (Bld) [#/Vol] 290 10*3/uL Normal 150-450 [facility] Comment on above: Performed By: #### L 501.9100, L500.4050, L505.5000, L100.0100 ####[facility] [address] [place], [address] RBC (Bld) [#/Vol] 4.43 10*6/uL Low 4.6-6.[address] [facility] Comment on above: Performed By: #### L 501.9100, L500.4050, L505.5000, L100.0100 ####[facility] [address] [place], [address] RDW SD 41.8 fl Normal 35.1-43.9 [facility] Comment on above: Performed By: #### L 501.9100, L500.4050, L505.5000, L100.0100 ####[facility] [address] [place], [address] WBC (Bld) [#/Vol] 7.9 10*3/uL Normal 4.4-11.0 [facility] Comment on above: Performed By: #### L 501.9100, L500.4050, L505.5000, L100.0100 ####[facility] [address] [place], [address] Carbon dioxide, total [Moles /volume] in Central venous bloodOrdered By: Twan Garcia on 04-16-2025 CO2 [Moles/Vol] 26.4 mmol/L 21.0-32.0 [facility] Chloride assayOrdered By: Wicho Garcia on 04-16-2025 Chloride [Moles/Vol] 101 mmol/L 98-108 [facility] Comprehensive Metabolic Prof ilon 04-16-2025 Albumin [Mass/Vol] 4.5 g/dL Normal 3.5-5.0 [facility] Comment on above: Performed By: #### L 501.9100, L500.4050, L505.5000, L100.0100 ####[facility] [address] [place], [address] Albumin/Globulin [Mass ratio] 1.4 {ratio} Normal 0.9-2.4 [facility] Comment on above: Performed By: #### L 501.9100, L500.4050, L505.5000, L100.0100 ####[facility] [address] [place], [address] ALK PHOS 60 U/L Normal 40-129 [facility] Comment on above: Performed By: #### L 501.9100, L500.4050, L505.5000, L100.0100 ####[facility] [address] [place], [address] ALT [Catalytic activity/Vol] 61 U/L High <=46 [facility] Comment on above: Performed By: #### L 501.9100, L500.4050, L505.5000, L100.0100 ####[facility] [address] [place], [address] AST [Catalytic activity/Vol] 44 U/L High <=37 [facility] Comment on above: Performed By: #### L 501.9100, L500.4050, L505.5000, L100.0100 ####[facility] [address] [place], [address] Bilirubin [Mass/Vol] 0.54 mg/dL Normal 0.00-1.30 [facility] Comment on above: Performed By: #### L 501.9100, L500.4050, L505.5000, L100.0100 ####[facility] [address] [place], [address] BUN/CRE 22.4 RATIO High 10-20 [facility] Comment on above: Performed By: #### L 501.9100, L500.4050, L505.5000, L100.0100 ####[facility] [address] [place], [address] Calcium [Mass/Vol] 10.0 mg/dL Normal 7.6-11.0 [facility] Comment on above: Performed By: #### L 501.9100, L500.4050, L505.5000, L100.0100 ####[facility] [address] [place], [address] Chloride [Moles/Vol] 101 mmol/L Normal 98-108 [facility] Comment on above: Performed By: #### L 501.9100, L500.4050, L505.5000, L100.0100 ####[facility] [address] [place], [address] CO2 [Moles/Vol] 26.4 mmol/L Normal 21.0-32.0 [facility] Comment on above: Performed By: #### L 501.9100, L500.4050, L505.5000, L100.0100 ####[facility] [address] [place], [address] Creatinine [Mass/Vol] 0.97 mg/dL Normal 0.70-1.20 [facility] Comment on above: Performed By: #### L 501.9100, L500.4050, L505.5000, L100.0100 ####[facility] [address] [place], [address] ECRCL 72.81 ml/min Normal 50-250 [facility] Comment on above: Performed By: #### L 501.9100, L500.4050, L505.5000, L100.0100 ####[facility] [address] [place], [address] GAP 12 Normal 5-15 [facility] Comment on above: Performed By: #### L 501.9100, L500.4050, L505.5000, L100.0100 ####[facility] [address] [place], [address] GFR/1.73 sq M.predicted among non-blacks MDRD (S/P/Bld) [Vol rate/Area] 96 mL/min/{1.73_m2} Normal >60 [facility] Comment on above: Result Comment: mL/m in/1.73m2 CKD-EPI Creatinine Equation (2020) Performed By: #### L 501.9100, L500.4050, L505.5000, L100.0100 ####[facility] [address] [place], [address] Globulin (S) [Mass/Vol] 3.3 g/dL Normal 2.2-4.2 [facility] Comment on above: Performed By: #### L 501.9100, L500.4050, L505.5000, L100.0100 ####[facility] [address] [place], [address] Glucose [Mass/Vol] 104 mg/dL High 70-99 [facility] Comment on above: Performed By: #### L 501.9100, L500.4050, L505.5000, L100.0100 ####[facility] [address] [place], [address] Potassium [Moles/Vol] 4.3 mmol/L Normal 3.3-5.1 [facility] Comment on above: Performed By: #### L 501.9100, L500.4050, L505.5000, L100.0100 ####[facility] [address] [place], [address] Sodium [Moles/Vol] 140 mmol/L Normal 133-145 [facility] Comment on above: Performed By: #### L 501.9100, L500.4050, L505.5000, L100.0100 ####[facility] [address] [place], [address] T PROT 7.9 g/dL Normal 5.9-8.4 [facility] Comment on above: Performed By: #### L 501.9100, L500.4050, L505.5000, L100.0100 ####[facility] [address] [place], [address] Urea nitrogen [Mass/Vol] 22 mg/dL High 4-19 [facility] Comment on above: Performed By: #### L 501.9100, L500.4050, L505.5000, L100.0100 ####[facility] [address] [place], [address] Emergency Department Summary on 04-16-2025 Emergency Department Summary Normal [facility] Eosinophil percentageOrdered By: Twan Garcia on 04-16-2025 Eosinophils/100 WBC (Bld) 3.3 % 0-5 [facility] Erythrocyte distribution wid th ratioOrdered By: Twan Garcia on 04-16-2025 Erythrocyte distribution width (RBC) [Ratio] 12.6 % 11.6-14.6 [facility] Erythrocyte distribution wid th standard deviationOrdered By: Twan Garcia on 04-16-2025 Erythrocyte distribution width (RBC) [Ratio] 41.8 fl 35.1-43.9 [facility] Glomerular filtration rate ( GFR) estimation/1.73 sq m using serum, plasma, or whole bOrdered By: Twan Garcia on 04-16-2025 GFR/1.73 sq M.predicted among non-blacks MDRD (S/P/Bld) [Vol rate/Area] 96 mL/min/{1.73_m2} >60 [facility] Comment on above: mL/min/1.73m2 CKD-EP I Creatinine Equation (2020) H AND P Exam - [facility] 04-16-2025 H&P Exam - Hospitalist Normal [facility] Hematocrit Auto (Bld) [Volum e fraction]Ordered By: Twan Garcia on 04-16-2025 Hematocrit (Bld) [Volume fraction] 40.0 % 40-54 [facility] Hemoglobin measurementOrdere d By: Twan Garcia on 04-16-2025 Hemoglobin (Bld) [Mass/Vol] 13.6 g/dL 13.0-16.5 [facility] Immature granulocytes/100 WB C Auto (Bld)Ordered By: Twan Garcia on 04-16-2025 Immature granulocytes/100 WBC (Bld) 0.300 % 0.0-0.9 [facility] Comment on above: IG% - Immature Granu locytes (promyelocytes, myelocytes and metamyelocytes) > 1% indicates that a LEFT SHIFT is Present. Laboratory - Chemistry and C hemistry - challengeOrdered By: Twan Garcia on 04-16-2025 AST [Catalytic activity/Vol] 44 U/L High <38 [facility] MCV (mean corpuscular volume ) determinationOrdered By: Twan Garcia on 04-16-2025 MCV (RBC) [Entitic vol] 90.3 fL 80-94 [facility] Magnesiumon 04-16-2025 Magnesium [Mass/Vol] 2.0 mg/dL Normal 1.5-2.2 [facility] Comment on above: Performed By: #### L 501.5200 ####[facility] [address] [place], [place], [id number] Magnesium measurement (mass/ volume)Ordered By: Jaquan Hong on 04-16-2025 Magnesium (Unsp spec) [Mass/Vol] 2.0 mg/dL 1.5-2.2 [facility] Mean corpuscular hemoglobin (MCH) determinationOrdered By: Twan Garcia on 04-16-2025 MCH (RBC) [Entitic mass] 30.7 pg 27.0-32.0 [facility] Mean corpuscular hemoglobin concentration (MCHC) determinationOrdered By: Tawn Garcia on 04-16-2025 MCHC (RBC) [Mass/Vol] 34.0 g/dL 32-36 [facility] Mean platelet volume determi nationOrdered By: Twan Garcia on 04-16-2025 Platelet mean volume (Bld) [Entitic vol] 9.0 fL 6.2-12.0 [facility] Monocyte percentageOrdered B y: Twan Garcia on 04-16-2025 Monocytes/100 WBC (Bld) 6.1 % 0-10 [facility] Neutrophil percentageOrdered By: Twan Garcia on 04-16-2025 Neutrophils/100 WBC (Bld) 71.0 % High 47-70 [facility] Nucleated red blood cell per centageOrdered By: Twan Garcia on 04-16-2025 Nucleated RBC/100 WBC (Bld) [Ratio] 0 % 0-5 [facility] Platelet countOrdered By: Wicho Garcia on 04-16-2025 Platelets (Bld) [#/Vol] 290 10*3/uL 150-450 [facility] Potassium measurement (mass/ volume)Ordered By: Twan Garcia on 04-16-2025 Potassium (Unsp spec) [Mass/Vol] 4.3 mmol/L 3.3-5.1 [facility] RBC Auto (Bld) [#/Vol]Ordere d By: Twan Garcia on 04-16-2025 RBC (Bld) [#/Vol] 4.43 10*6/uL Low 4.6-6.[address] [facility] Serum creatinine measurement (mass/volume)Ordered By: Twan Garcia on 04-16-2025 Creatinine [Mass/Vol] 0.97 mg/dL 0.70-1.20 [facility] Serum globulin measurementOr dered By: Twan Garcia on 04-16-2025 Globulin (S) [Mass/Vol] 3.3 g/dL 2.2-4.2 [facility] Serum glucose measurement (m ass/volume)Ordered By: Twan Garcia on 04-16-2025 Glucose [Mass/Vol] 104 mg/dL High 70-99 [facility] Serum or plasma alanine love otransferase (ALT) measurementOrdered By: Twan Garcia on 04-16-2025 ALT [Catalytic activity/Vol] 61 U/L High <47 [facility] Serum or plasma albumin micah urement (mass/volume)Ordered By: Twan Garcia on 04-16-2025 Albumin [Mass/Vol] 4.5 g/dL 3.5-5.0 [facility] Serum or plasma albumin/glob ulin mass ratioOrdered By: Twan Garcia on 04-16-2025 Albumin/Globulin [Mass ratio] 1.4 {ratio} 0.9-2.4 [facility] Serum or plasma alkaline jd sphatase measurementOrdered By: Twan Garcia on 04-16-2025 ALP [Catalytic activity/Vol] 60 U/L 40-129 [facility] Serum or plasma calcium micah urement (mass/volume)Ordered By: Twan Garcia on 04-16-2025 Calcium [Mass/Vol] 10.0 mg/dL 7.6-11.0 [facility] Serum or plasma ethanol micah urement (mass/volume)Ordered By: Twan Garcia on 04-16-2025 Ethanol [Mass/Vol] mg/dL <10.1 [facility] Comment on above: This test is for med ical purposes only. The legal definition of intoxication varies according to local law. Serum or plasma urea nitroge n measurement (mass/volume)Ordered By: Twan Garcia on 04-16-2025 Urea nitrogen [Mass/Vol] 22 mg/dL High 4-19 [facility] Sodium levelOrdered By: Twan Garcia on 04-16-2025 Sodium [Moles/Vol] 140 mmol/L 133-145 [facility] Total proteinOrdered By: Marcellus Garcia on 04-16-2025 Protein [Mass/Vol] 7.9 g/dL 5.9-8.4 [facility] Urine Drug Screen (VISTA)on 04-16-2025 AMPHETAMINES Normal <1000 ng/mL [facility] Comment on above: Result Comment: Norm elled via OM: Order edited - Discontinuing original order Performed By: #### L 501.9100, L500.4050, L505.5000, L100.0100 ####[facility] [address] [place], [place], [id number] BARBITIURATES Normal < 200 ng/mL [facility] Comment on above: Result Comment: Canc elled via OM: Order edited - Discontinuing original order Performed By: #### L 501.9100, L500.4050, L505.5000, L100.0100 ####[facility] [address] [place], [address] BENZODIAZIPINE Normal < 200 ng/mL [facility] Comment on above: Result Comment: Canc elled via OM: Order edited - Discontinuing original order Performed By: #### L 501.9100, L500.4050, L505.5000, L100.0100 ####[facility] [address] [place], [address] BUP Ur Drug Scr Normal < 200 ng/mL [facility] Comment on above: Result Comment: Canc elled via OM: Order edited - Discontinuing original order Performed By: #### L 501.9100, L500.4050, L505.5000, L100.0100 ####[facility] [address] [place], [address] COCAINE Normal < 300 ng/mL [facility] Comment on above: Result Comment: Canc elled via OM: Order edited - Discontinuing original order Performed By: #### L 501.9100, L500.4050, L505.5000, L100.0100 ####[facility] [address] [place], [address] Fentanyl Normal [facility] Comment on above: Result Comment: Canc elled via OM: Order edited - Discontinuing original order Performed By: #### L 501.9100, L500.4050, L505.5000, L100.0100 ####[facility] [address] [place], [address] METHADONE Normal < 300 ng/mL [facility] Comment on above: Result Comment: Canc elled via OM: Order edited - Discontinuing original order Performed By: #### L 501.9100, L500.4050, L505.5000, L100.0100 ####[facility] [address] [place], [address] OPIATES Normal < 300 ng/mL [facility] Comment on above: Result Comment: Canc elled via OM: Order edited - Discontinuing original order Performed By: #### L 501.9100, L500.4050, L505.5000, L100.0100 ####[facility] [address] [place], [address] OXYCODONE Normal < 100 ng/mL [facility] Comment on above: Result Comment: Canc elled via OM: Order edited - Discontinuing original order Performed By: #### L 501.9100, L500.4050, L505.5000, L100.0100 ####[facility] [address] [place], [address] PCP Normal < 25 ng/mL [facility] Comment on above: Result Comment: Canc elled via OM: Order edited - Discontinuing original order Performed By: #### L 501.9100, L500.4050, L505.5000, L100.0100 ####[facility] [address] [place], [address] THC Normal < 50 ng/mL [facility] Comment on above: Result Comment: Canc elled via OM: Order edited - Discontinuing original order Performed By: #### L 501.9100, L500.4050, L505.5000, L100.0100 ####[facility] [address] [place], [address] White blood cell (WBC) count Ordered By: Twan Garcia on 04-16-2025 WBC (Bld) [#/Vol] 7.9 10*3/uL 4.4-11.0 [facility] Emergency Department Summary on 03-30-2025 Emergency Department Summary Normal [facility] 12 Lead EKGon 03-29-2025 12 Lead EKG Normal [facility] 12 Lead EKG Normal [facility] Absolute lymphocyte countOrd ered By: Sebastian Braswell on 03-29-2025 Lymphocytes Auto (Unsp spec) [#/Vol] 2.05 10*3/uL 0.83-4.51 [facility] Absolute neutrophil countOrd ered By: Sebastian Braswell on 03-29-2025 Neutrophils (Bld) [#/Vol] 4.2 10*3/uL 2.0-7.7 [facility] Anion gap in Serum or Plasma Ordered By: Sebastian Braswell on 03-29-2025 Anion gap [Moles/Vol] 17 mmol/L High 5-15 [facility] Automated lymphocyte count a s percentage of total leukocytesOrdered By: Sebastian Braswell on 03-29-2025 Lymphocytes/100 WBC Auto (Unsp spec) 28.8 % 19-41 [facility] BUN/creatinine ratioOrdered By: Sebastian Braswell on 03-29-2025 Urea nitrogen/Creatinine [Mass ratio] 23.3 mg/mg High 10-20 [facility] Basophil percentageOrdered B y: Sebastian Braswell on 03-29-2025 Basophils/100 WBC (Bld) 0.8 % 0-1 [facility] Bilirubin, totalOrdered By: Sebastian Braswell on 03-29-2025 Bilirubin [Mass/Vol] 0.46 mg/dL 0.00-1.30 [facility] CBC W/Diff, Automatedon 03-03 Absolute Lymph 2.05 X10 3/uL Normal 0.83-4.51 [facility] Comment on above: Performed By: #### L 500.4050, L100.0100, L501.2450 ####[facility] [address] [place], [address] Absolute Neut 4.2 X10 3/uL Normal 2.0-7.7 [facility] Comment on above: Performed By: #### L 500.4050, L100.0100, L501.2450 ####[facility] [address] [place], [address] Basophils/100 WBC (Bld) 0.8 % Normal 0-1 [facility] Comment on above: Performed By: #### L 500.4050, L100.0100, L501.2450 ####[facility] [address] [place], [address] Eosinophils/100 WBC (Bld) 3.8 % Normal 0-5 [facility] Comment on above: Performed By: #### L 500.4050, L100.0100, L501.2450 ####[facility] [address] [place], [address] Erythrocyte distribution width (RBC) [Ratio] 12.7 % Normal 11.6-14.6 [facility] Comment on above: Performed By: #### L 500.4050, L100.0100, L501.2450 ####[facility] [address] [place], [address] Hematocrit (Bld) [Volume fraction] 38.9 % Low 40-54 [facility] Comment on above: Performed By: #### L 500.4050, L100.0100, L501.2450 ####[facility] [address] [place], [address] Hemoglobin (Bld) [Mass/Vol] 13.0 g/dL Normal 13.0-16.5 [facility] Comment on above: Performed By: #### L 500.4050, L100.0100, L501.2450 ####[facility] [address] [place], [address] IG% 0.300 Normal 0.0-0.9 [facility] Comment on above: Result Comment: IG% - Immature Granulocytes (promyelocytes, myelocytes andmetamyelocytes) > 1% indicates that a LEFT SHIFT is Present. Performed By: #### L 500.4050, L100.0100, L501.2450 ####[facility] [address] [place], [address] Lymphocytes/100 WBC (Bld) 28.8 % Normal 19-41 [facility] Comment on above: Performed By: #### L 500.4050, L100.0100, L501.2450 ####[facility] [address] [place], [address] MCH (RBC) [Entitic mass] 31.0 pg Normal 27.0-32.0 [facility] Comment on above: Performed By: #### L 500.4050, L100.0100, L501.2450 ####[facility] [address] [place], [address] MCHC (RBC) [Mass/Vol] 33.4 g/dL Normal 32-36 [facility] Comment on above: Performed By: #### L 500.4050, L100.0100, L501.2450 ####[facility] [address] [place], [address] MCV (RBC) [Entitic vol] 92.8 fL Normal 80-94 [facility] Comment on above: Performed By: #### L 500.4050, L100.0100, L501.2450 ####[facility] [address] [place], [address] Monocytes/100 WBC (Bld) 7.3 % Normal 0-10 [facility] Comment on above: Performed By: #### L 500.4050, L100.0100, L501.2450 ####[facility] [address] [place], [address] Neutrophils/100 WBC (Bld) 59.0 % Normal 47-70 [facility] Comment on above: Performed By: #### L 500.4050, L100.0100, L501.2450 ####[facility] [address] [place], [address] Nucleated RBC (Bld) [#/Vol] 0 10*3/uL Normal 0-5 [facility] Comment on above: Performed By: #### L 500.4050, L100.0100, L501.2450 ####[facility] [address] [place], [address] Platelet mean volume (Bld) [Entitic vol] 9.5 fL Normal 6.2-12.0 [facility] Comment on above: Performed By: #### L 500.4050, L100.0100, L501.2450 ####[facility] [address] [place], [address] Platelets (Bld) [#/Vol] 338 10*3/uL Normal 150-450 [facility] Comment on above: Performed By: #### L 500.4050, L100.0100, L501.2450 ####[facility] [address] [place], [address] RBC (Bld) [#/Vol] 4.19 10*6/uL Low 4.6-6.[address] [facility] Comment on above: Performed By: #### L 500.4050, L100.0100, L501.2450 ####[facility] [address] [place], [address] RDW SD 43.4 fl Normal 35.1-43.9 [facility] Comment on above: Performed By: #### L 500.4050, L100.0100, L501.2450 ####[facility] [address] [place], [address] WBC (Bld) [#/Vol] 7.1 10*3/uL Normal 4.4-11.0 [facility] Comment on above: Performed By: #### L 500.4050, L100.0100, L501.2450 ####[facility] [address] [place], [address] Absolute Neut Normal 2.0-7.7 [facility] Comment on above: Result Comment: Canc elled via OM: Wrong Patient Performed By: #### L 500.4050, L100.0100 ####[facility] [address] [place], [address] HCT Normal 40-54 [facility] Comment on above: Result Comment: Canc elled via OM: Wrong Patient Performed By: #### L 500.4050, L100.0100 ####[facility] [address] [place], [address] HGB Normal 13.0-16.5 [facility] Comment on above: Result Comment: Canc elled via OM: Wrong Patient Performed By: #### L 500.4050, L100.0100 ####[facility] [address] [place], [address] MCH Normal 27.0-32.0 [facility] Comment on above: Result Comment: Canc elled via OM: Wrong Patient Performed By: #### L 500.4050, L100.0100 ####[facility] [address] [place], [address] MCHC Normal 32-36 [facility] Comment on above: Result Comment: Canc elled via OM: Wrong Patient Performed By: #### L 500.4050, L100.0100 ####[facility] [address] [place], [address] MCV Normal 80-94 [facility] Comment on above: Result Comment: Canc elled via OM: Wrong Patient Performed By: #### L 500.4050, L100.0100 ####[facility] [address] [place], [address] NEUT% Normal 47-70 [facility] Comment on above: Result Comment: Canc elled via OM: Wrong Patient Performed By: #### L 500.4050, L100.0100 ####[facility] [address] [place], [address] PLT Normal 150-450 [facility] Comment on above: Result Comment: Canc elled via OM: Wrong Patient Performed By: #### L 500.4050, L100.0100 ####[facility] [address] [place], [address] RBC Normal 4.6-6.2 [facility] Comment on above: Result Comment: Canc elled via OM: Wrong Patient Performed By: #### L 500.4050, L100.0100 ####[facility] [address] [place], [address] RDW CV Normal 11.6-14.6 [facility] Comment on above: Result Comment: Canc elled via OM: Wrong Patient Performed By: #### L 500.4050, L100.0100 ####[facility] [address] [place], [address] RDW SD Normal 35.1-43.9 [facility] Comment on above: Result Comment: Canc elled via OM: Wrong Patient Performed By: #### L 500.4050, L100.0100 ####[facility] [address] [place], [address] WBC Normal 4.4-11.0 [facility] Comment on above: Result Comment: Canc elled via OM: Wrong Patient Performed By: #### L 500.4050, L100.0100 ####[facility] [address] [place], [address] Carbon dioxide, total [Moles /volume] in Central venous bloodOrdered By: Sebastian Braswell on 03-29-2025 CO2 [Moles/Vol] 22.8 mmol/L 21.0-32.0 [facility] Chest PA and Lateralon 03-29 Chest PA and Lateral Normal [facility] Chloride assayOrdered By: Jesus Manuel Braswell on 03-29-2025 Chloride [Moles/Vol] 102 mmol/L 98-108 [facility] Comprehensive Metabolic Prof ilon 03-29-2025 Albumin [Mass/Vol] 4.4 g/dL Normal 3.5-5.0 [facility] Comment on above: Performed By: #### L 500.4050, L100.0100, L501.2450 ####[facility] [address] [place], [address] Albumin/Globulin [Mass ratio] 1.4 {ratio} Normal 0.9-2.4 [facility] Comment on above: Performed By: #### L 500.4050, L100.0100, L501.2450 ####[facility] [address] [place], [address] ALK PHOS 55 U/L Normal 40-129 [facility] Comment on above: Performed By: #### L 500.4050, L100.0100, L501.2450 ####[facility] [address] [place], [address] ALT [Catalytic activity/Vol] 86 U/L High <=46 [facility] Comment on above: Performed By: #### L 500.4050, L100.0100, L501.2450 ####[facility] [address] [place], [address] AST [Catalytic activity/Vol] 54 U/L High <=37 [facility] Comment on above: Performed By: #### L 500.4050, L100.0100, L501.2450 ####[facility] [address] [place], [address] Bilirubin [Mass/Vol] 0.46 mg/dL Normal 0.00-1.30 [facility] Comment on above: Performed By: #### L 500.4050, L100.0100, L501.2450 ####[facility] [address] [place], [address] BUN/CRE 23.3 RATIO High 10-20 [facility] Comment on above: Performed By: #### L 500.4050, L100.0100, L501.2450 ####[facility] [address] [place], [address] Calcium [Mass/Vol] 9.3 mg/dL Normal 7.6-11.0 [facility] Comment on above: Performed By: #### L 500.4050, L100.0100, L501.2450 ####[facility] [address] [place], [address] Chloride [Moles/Vol] 102 mmol/L Normal 98-108 [facility] Comment on above: Performed By: #### L 500.4050, L100.0100, L501.2450 ####[facility] [address] [place], [address] CO2 [Moles/Vol] 22.8 mmol/L Normal 21.0-32.0 [facility] Comment on above: Performed By: #### L 500.4050, L100.0100, L501.2450 ####[facility] [address] [place], [address] Creatinine [Mass/Vol] 1.01 mg/dL Normal 0.70-1.20 [facility] Comment on above: Performed By: #### L 500.4050, L100.0100, L501.2450 ####[facility] [address] [place], [address] ECRCL 79.84 ml/min Normal 50-250 [facility] Comment on above: Performed By: #### L 500.4050, L100.0100, L501.2450 ####[facility] [address] [place], [address] GAP 17 High 5-15 [facility] Comment on above: Performed By: #### L 500.4050, L100.0100, L501.2450 ####[facility] [address], [address] GFR/1.73 sq M.predicted among non-blacks MDRD (S/P/Bld) [Vol rate/Area] 91 mL/min/{1.73_m2} Normal >60 [facility] Comment on above: Result Comment: mL/m in/1.73m2 CKD-EPI Creatinine Equation (2020) Performed By: #### L 500.4050, L100.0100, L501.2450 ####[facility] [address] [place], [address] Globulin (S) [Mass/Vol] 3.2 g/dL Normal 2.2-4.2 [facility] Comment on above: Performed By: #### L 500.4050, L100.0100, L501.2450 ####[facility] [address] [place], [address] Glucose [Mass/Vol] 244 mg/dL High 70-99 [facility] Comment on above: Performed By: #### L 500.4050, L100.0100, L501.2450 ####[facility] [address] [place], [address] Potassium [Moles/Vol] 3.5 mmol/L Normal 3.3-5.1 [facility] Comment on above: Performed By: #### L 500.4050, L100.0100, L501.2450 ####[facility] [address] [place], [address] Sodium [Moles/Vol] 141 mmol/L Normal 133-145 [facility] Comment on above: Performed By: #### L 500.4050, L100.0100, L501.2450 ####[facility] [address] [place], [address] T PROT 7.7 g/dL Normal 5.9-8.4 [facility] Comment on above: Performed By: #### L 500.4050, L100.0100, L501.2450 ####[facility] [address] [place], [address] Urea nitrogen [Mass/Vol] 24 mg/dL High 4-19 [facility] Comment on above: Performed By: #### L 500.4050, L100.0100, L501.2450 ####[facility] [address] [place], [address] ALB Normal 3.5-5.0 [facility] Comment on above: Result Comment: Canc elled via OM: Wrong Patient Performed By: #### L 500.4050, L100.0100 ####[facility] [address] [place], [address] ALK PHOS Normal 40-129 [facility] Comment on above: Result Comment: Canc elled via OM: Wrong Patient Performed By: #### L 500.4050, L100.0100 ####[facility] [address] [place], [address] ALT Normal <=46 [facility] Comment on above: Result Comment: Canc elled via OM: Wrong Patient Performed By: #### L 500.4050, L100.0100 ####[facility] [address] [place], [address] AST Normal <=37 [facility] Comment on above: Result Comment: Canc elled via OM: Wrong Patient Performed By: #### L 500.4050, L100.0100 ####[facility] [address] [place], [address] BUN Normal 4-19 [facility] Comment on above: Result Comment: Canc elled via OM: Wrong Patient Performed By: #### L 500.4050, L100.0100 ####[facility] [address] [place], [address] BUN/CRE Normal 10-20 [facility] Comment on above: Result Comment: Canc elled via OM: Wrong Patient Performed By: #### L 500.4050, L100.0100 ####[facility] [address] [place], [address] Calcium Normal 7.6-11.0 [facility] Comment on above: Result Comment: Canc elled via OM: Wrong Patient Performed By: #### L 500.4050, L100.0100 ####[facility] [address] [place], [address] CL Normal 98-108 [facility] Comment on above: Result Comment: Canc elled via OM: Wrong Patient Performed By: #### L 500.4050, L100.0100 ####[facility] [address] [place], [address] CO2 Normal 21.0-32.0 [facility] Comment on above: Result Comment: Canc elled via OM: Wrong Patient Performed By: #### L 500.4050, L100.0100 ####[facility] [address] [place], [address] CREAT,SERUM Normal 0.70-1.20 [facility] Comment on above: Result Comment: Canc elled via OM: Wrong Patient Performed By: #### L 500.4050, L100.0100 ####[facility] [address] [place], [address] eGFR Normal >60 [facility] Comment on above: Result Comment: Canc elled via OM: Wrong Patient Performed By: #### L 500.4050, L100.0100 ####[facility] [address] [place], [address] GAP Normal 5-15 [facility] Comment on above: Result Comment: Canc elled via OM: Wrong Patient Performed By: #### L 500.4050, L100.0100 ####[facility] [address] [place], [address] GLU Normal 70-99 [facility] Comment on above: Result Comment: Canc elled via OM: Wrong Patient Performed By: #### L 500.4050, L100.0100 ####[facility] [address] [place], [address] Potassium Normal 3.3-5.1 [facility] Comment on above: Result Comment: Canc elled via OM: Wrong Patient Performed By: #### L 500.4050, L100.0100 ####[facility] [address] [place], [address] T BILI Normal 0.00-1.30 [facility] Comment on above: Result Comment: Canc elled via OM: Wrong Patient Performed By: #### L 500.4050, L100.0100 ####[facility] [address] [place], [address] T PROT Normal 5.9-8.4 [facility] Comment on above: Result Comment: Canc elled via OM: Wrong Patient Performed By: #### L 500.4050, L100.0100 ####[facility] [address] [place], [address] Comprehensive Metabolic Profil Normal 133-145 [facility] Comment on above: Result Comment: Canc elled via OM: Wrong Patient Performed By: #### L 500.4050, L100.0100 ####[facility] [address] [place], [address] Emergency Department Summary on 03-29-2025 Emergency Department Summary Normal [facility] Eosinophil percentageOrdered By: Sebastian Braswell on 03-29-2025 Eosinophils/100 WBC (Bld) 3.8 % 0-5 [facility] Erythrocyte distribution wid th ratioOrdered By: Sebastian Braswell on 03-29-2025 Erythrocyte distribution width (RBC) [Ratio] 12.7 % 11.6-14.6 [facility] Erythrocyte distribution wid th standard deviationOrdered By: Sebastian Braswell on 03-29-2025 Erythrocyte distribution width (RBC) [Ratio] 43.4 fl 35.1-43.9 [facility] Glomerular filtration rate ( GFR) estimation/1.73 sq m using serum, plasma, or whole bOrdered By: Sebastian Braswell on 03-29-2025 GFR/1.73 sq M.predicted among non-blacks MDRD (S/P/Bld) [Vol rate/Area] 91 mL/min/{1.73_m2} >60 [facility] Comment on above: mL/min/1.73m2 CKD-EP I Creatinine Equation (2020) Hematocrit Auto (Bld) [Volum e fraction]Ordered By: Sebastian Braswell on 03-29-2025 Hematocrit (Bld) [Volume fraction] 38.9 % Low 40-54 [facility] Hemoglobin measurementOrdere d By: Sebastian Braswell on 03-29-2025 Hemoglobin (Bld) [Mass/Vol] 13.0 g/dL 13.0-16.5 [facility] Immature granulocytes/100 WB C Auto (Bld)Ordered By: Sebastian Braswell on 03-29-2025 Immature granulocytes/100 WBC (Bld) 0.300 % 0.0-0.9 [facility] Comment on above: IG% - Immature Granu locytes (promyelocytes, myelocytes and metamyelocytes) > 1% indicates that a LEFT SHIFT is Present. L499.0042on 03-29-2025 Trop T High Sen 7 ng/L Normal <=22 [facility] Comment on above: Performed By: #### L 499.0042 ####[facility] [address] [place], [place], [address] L499.0043on 03-29-2025 Trop T High Sen Normal <=22 [facility] Comment on above: Result Comment: SANTI ENT DISCHARGED Performed By: #### L 499.0043 ####[facility] [address] [place], [place], [id number] L501.4021on 03-29-2025 Trop T High Sen < 6 Normal <=22 [facility] Comment on above: Performed By: #### L 501.4021 ####[facility] [address] [place], [address] Laboratory - Chemistry and C hemistry - challengeOrdered By: Sebastian Braswell on 03-29-2025 AST [Catalytic activity/Vol] 54 U/L High <38 [facility] Lipaseon 03-29-2025 Lipase [Catalytic activity/Vol] 24 U/L Normal 13-75 [facility] Comment on above: Result Comment: Plea se note:LIPASE revised reference range effective 23.New Lipase methodology. Expected to produce lower valuesthan the previous assay method.NEW Reference Range: 13 - 75 U/L Performed By: #### L 500.4050, L100.0100, L501.2450 ####[facility] [address] [place], [address] Lipase measurementOrdered By : Sebastian Braswell on 03-29-2025 Lipase [Catalytic activity/Vol] 24 U/L 13-75 [facility] Comment on above: Please note:LIPASE r evised reference range effective 23. New Lipase methodology. Expected to produce lower values than the previous assay method. NEW Reference Range: 13 - 75 U/L MCV (mean corpuscular volume ) determinationOrdered By: Sebastian Braswell on 03-29-2025 MCV (RBC) [Entitic vol] 92.8 fL 80-94 [facility] Mean corpuscular hemoglobin (MCH) determinationOrdered By: Sebastian Braswell on 03-29-2025 MCH (RBC) [Entitic mass] 31.0 pg 27.0-32.0 [facility] Mean corpuscular hemoglobin concentration (MCHC) determinationOrdered By: Sebastian Braswell on 03-29-2025 MCHC (RBC) [Mass/Vol] 33.4 g/dL 32-36 [facility] Mean platelet volume determi nationOrdered By: Sebastian Braswell on 03-29-2025 Platelet mean volume (Bld) [Entitic vol] 9.5 fL 6.2-12.0 [facility] Monocyte percentageOrdered B y: Sebastian Braswell on 03-29-2025 Monocytes/100 WBC (Bld) 7.3 % 0-10 [facility] Neutrophil percentageOrdered By: Sebastian Braswell on 03-29-2025 Neutrophils/100 WBC (Bld) 59.0 % 47-70 [facility] Nucleated red blood cell per centageOrdered By: Sebastian Braswell on 03-29-2025 Nucleated RBC/100 WBC (Bld) [Ratio] 0 % 0-5 [facility] Platelet countOrdered By: Jesus Manuel Braswell on 03-29-2025 Platelets (Bld) [#/Vol] 338 10*3/uL 150-450 [facility] Potassium measurement (mass/ volume)Ordered By: Sebastian Braswell on 03-29-2025 Potassium (Unsp spec) [Mass/Vol] 3.5 mmol/L 3.3-5.1 [facility] RBC Auto (Bld) [#/Vol]Ordere d By: Sebastian Braswell on 03-29-2025 RBC (Bld) [#/Vol] 4.19 10*6/uL Low 4.6-6.[address] [facility] Serum creatinine measurement (mass/volume)Ordered By: Sebastian Braswell on 03-29-2025 Creatinine [Mass/Vol] 1.01 mg/dL 0.70-1.20 [facility] Serum globulin measurementOr dered By: Sebastian Braswell on 03-29-2025 Globulin (S) [Mass/Vol] 3.2 g/dL 2.2-4.2 [facility] Serum glucose measurement (m ass/volume)Ordered By: Sebastian Braswell on 03-29-2025 Glucose [Mass/Vol] 244 mg/dL High 70-99 [facility] Serum or plasma alanine love otransferase (ALT) measurementOrdered By: Sebastian Braswell on 03-29-2025 ALT [Catalytic activity/Vol] 86 U/L High <47 [facility] Serum or plasma albumin micah urement (mass/volume)Ordered By: Sebastian Braswell on 03-29-2025 Albumin [Mass/Vol] 4.4 g/dL 3.5-5.0 [facility] Serum or plasma albumin/glob ulin mass ratioOrdered By: Sebastian Braswell on 03-29-2025 Albumin/Globulin [Mass ratio] 1.4 {ratio} 0.9-2.4 [facility] Serum or plasma alkaline jd sphatase measurementOrdered By: Sebastian Braswell on 03-29-2025 ALP [Catalytic activity/Vol] 55 U/L 40-129 [facility] Serum or plasma calcium micah urement (mass/volume)Ordered By: Sebastian Braswell on 03-29-2025 Calcium [Mass/Vol] 9.3 mg/dL 7.6-11.0 [facility] Serum or plasma urea nitroge n measurement (mass/volume)Ordered By: Sebastian Braswell on 03-29-2025 Urea nitrogen [Mass/Vol] 24 mg/dL High 4-19 [facility] Sodium levelOrdered By: David Braswell on 03-29-2025 Sodium [Moles/Vol] 141 mmol/L 133-145 [facility] Total proteinOrdered By: Bhumika Braswell on 03-29-2025 Protein [Mass/Vol] 7.7 g/dL 5.9-8.4 [facility] Troponin T.cardiac [Mass/vol ume] in Serum or Plasma by High sensitivity methodOrdered By: Sebastian Braswell on 03-29-2025 Troponin T.cardiac High sensitivity method [Mass/Vol] 7 ng/L <22 [facility] Troponin T.cardiac High sensitivity method [Mass/Vol] < 6 ng/L <22 [facility] Urinalysis, Completeon 03-29 BACTERIA Normal None Seen [facility] Comment on above: Order Comment: CLEAN CATCH Result Comment: DEP FROM ED Performed By: #### L 400.0001 ####[facility] [address] [place], [place], [id number] BILIRUBIN URINE Normal Negative [facility] Comment on above: Order Comment: CLEAN CATCH Result Comment: DEP FROM ED Performed By: #### L 400.0001 ####[facility] [address] [place], [place], [id number] Clarity (U) Normal Clear [facility] Comment on above: Order Comment: CLEAN CATCH Result Comment: DEP FROM ED Performed By: #### L 400.0001 ####[facility] [address] [place], [address] Color (U) Normal Yellow [facility] Comment on above: Order Comment: CLEAN CATCH Result Comment: DEP FROM ED Performed By: #### L 400.0001 ####[facility] [address] [place], [address] EPI,SQUAMOUS Normal 0-5 [facility] Comment on above: Order Comment: CLEAN CATCH Result Comment: DEP FROM ED Performed By: #### L 400.0001 ####[facility] [address] [place], [address] GLUCOSE, UR Normal Normal [facility] Comment on above: Order Comment: CLEAN CATCH Result Comment: DEP FROM ED Performed By: #### L 400.0001 ####[facility] [address] [place], [address] KETONE UR Normal Negative [facility] Comment on above: Order Comment: CLEAN CATCH Result Comment: DEP FROM ED Performed By: #### L 400.0001 ####[facility] [address] [place], [address] LEUK ESTERASE Normal Negative [facility] Comment on above: Order Comment: CLEAN CATCH Result Comment: DEP FROM ED Performed By: #### L 400.0001 ####[facility] [address] [place], [address] Mucus Ql (Urine sed) Normal [facility] Comment on above: Order Comment: CLEAN CATCH Result Comment: DEP FROM ED Performed By: #### L 400.0001 ####[facility] [address] [place], [address] Nitrite Ql (U) Normal Negative [facility] Comment on above: Order Comment: CLEAN CATCH Result Comment: DEP FROM ED Performed By: #### L 400.0001 ####[facility] [address] [place], [address] OCCULT BLOOD-UR Normal Negative [facility] Comment on above: Order Comment: CLEAN CATCH Result Comment: DEP FROM ED Performed By: #### L 400.0001 ####[facility] [address] [place], [address] pH UR Normal 5.0 - 8.0 [facility] Comment on above: Order Comment: CLEAN CATCH Result Comment: DEP FROM ED Performed By: #### L 400.0001 ####[facility] [address] [place], [address] PROT DIPSTX Normal Negative [facility] Comment on above: Order Comment: CLEAN CATCH Result Comment: DEP FROM ED Performed By: #### L 400.0001 ####[facility] [address] [place], [address] RBC Normal 0-5 [facility] Comment on above: Order Comment: CLEAN CATCH Result Comment: DEP FROM ED Performed By: #### L 400.0001 ####[facility] [address] [place], [address] SP.GR. DIPSTX Normal 1.002-1.030 [facility] Comment on above: Order Comment: CLEAN CATCH Result Comment: DEP FROM ED Performed By: #### L 400.0001 ####[facility] [address] [place], [address] UR Preservative Normal [facility] Comment on above: Order Comment: CLEAN CATCH Result Comment: DEP FROM ED Performed By: #### L 400.0001 ####[facility] [address] [place], [address] UROBILI Normal Normal [facility] Comment on above: Order Comment: CLEAN CATCH Result Comment: DEP FROM ED Performed By: #### L 400.0001 ####[facility] [address] [place], [address] WBC Normal 0-5 [facility] Comment on above: Order Comment: CLEAN CATCH Result Comment: DEP FROM ED Performed By: #### L 400.0001 ####[facility] [address] [place], [address] White blood cell (WBC) count Ordered By: Sebastian Braswell on 03-29-2025 WBC (Bld) [#/Vol] 7.1 10*3/uL 4.4-11.0 [facility] CNCOon 02-03-2025 CNCO Letter Text Normal [facility] Chest PA and Lateralon 01-19 Chest PA and Lateral Normal [facility] Emergency Department Summary on 01-19-2025 Emergency Department Summary Normal [facility] Chest PA and Lateralon 12-13 Chest PA and Lateral Normal [facility] Emergency Department Summary on 12-13-2024 Emergency Department Summary Normal [facility] Emergency Department Summary on 12-04-2024 Emergency Department Summary Normal [facility] 12 Lead EKGon 2024 12 Lead EKG Normal [facility] Absolute neutrophil countOrd ered By: Lacho Joy on 2024 Neutrophils (Bld) [#/Vol] 7.9 10*3/uL High 2.0-7.7 [facility] BUN/creatinine ratioOrdered By: Lacho Joy on 2024 Urea nitrogen/Creatinine [Mass ratio] 32.6 mg/mg High 10- [facility] Basic Metabolic Profile (BMP )on 2024 Anion gap [Moles/Vol] 10 mmol/L Normal 5-15 [facility] Comment on above: Performed By: #### L 500.2500, L100.0100 ####[facility] [address] [place], [address] BUN/CRE 32.6 RATIO High 07-21 [facility] Comment on above: Performed By: #### L 500.2500, L100.0100 ####[facility] [address] [place], [address] Calcium [Mass/Vol] 9.1 mg/dL Normal 7.6-11.0 [facility] Comment on above: Performed By: #### L 500.2500, L100.0100 ####[facility] [address] [place], [address] Chloride [Moles/Vol] 102 mmol/L Normal 96-108 [facility] Comment on above: Performed By: #### L 500.2500, L100.0100 ####[facility] [address] [place], [address] CO2 [Moles/Vol] 26.2 mmol/L Normal 22.0-29.0 [facility] Comment on above: Performed By: #### L 500.2500, L100.0100 ####[facility] [address] [place], [address] Creatinine [Mass/Vol] 0.6 mg/dL Low 0.8-1.3 [facility] Comment on above: Performed By: #### L 500.2500, L100.0100 ####[facility] [address] [place], [address] ECRCL 119.44 ml/min Normal [facility] Comment on above: Performed By: #### L 500.2500, L100.0100 ####[facility] [address] [place], [address] GFR/1.73 sq M.predicted among non-blacks MDRD (S/P/Bld) [Vol rate/Area] 116 mL/min/{1.73_m2} Normal >60 [facility] Comment on above: Result Comment: mL/m in/1.73m2 CKD-EPI Creatinine Equation (2020) Performed By: #### L 500.2500, L100.0100 ####[facility] [address] [place], [address] Glucose [Mass/Vol] 99 mg/dL Normal 70-99 [facility] Comment on above: Performed By: #### L 500.2500, L100.0100 ####[facility] [address] [place], [address] Potassium [Moles/Vol] 4.0 mmol/L Normal 3.3-5.1 [facility] Comment on above: Performed By: #### L 500.2500, L100.0100 ####[facility] [address] [place], [address] Sodium [Moles/Vol] 138 mmol/L Normal 133-145 [facility] Comment on above: Performed By: #### L 500.2500, L100.0100 ####[facility] [address] [place], [address] Urea nitrogen [Mass/Vol] 21 mg/dL High 4-19 [facility] Comment on above: Performed By: #### L 500.2500, L100.0100 ####[facility] [address] [place], [address] Basophil percentageOrdered B y: Lacho Joy on 2024 Basophils/100 WBC (Bld) 0.5 % 0-1 [facility] CBC W/Diff, Automatedon 11-03 Absolute Lymph 1.53 X10 3/uL Normal 0.83-4.51 [facility] Comment on above: Performed By: #### L 500.2500, L100.0100 ####[facility] [address] [place], [address] Absolute Neut 7.9 X10 3/uL High 2.0-7.7 [facility] Comment on above: Performed By: #### L 500.2500, L100.0100 ####[facility] [address] [place], [address] Basophils/100 WBC (Bld) 0.5 % Normal 0-1 [facility] Comment on above: Performed By: #### L 500.2500, L100.0100 ####[facility] [address] [place], [address] Eosinophils/100 WBC (Bld) 3.9 % Normal 0-5 [facility] Comment on above: Performed By: #### L 500.2500, L100.0100 ####[facility] [address] [place], [address] Erythrocyte distribution width (RBC) [Ratio] 13.0 % Normal 11.6-14.6 [facility] Comment on above: Performed By: #### L 500.2500, L100.0100 ####[facility] [address] [place], [address] Hematocrit (Bld) [Volume fraction] 43.0 % Normal 40-54 [facility] Comment on above: Performed By: #### L 500.2500, L100.0100 ####[facility] [address] [place], [address] Hemoglobin (Bld) [Mass/Vol] 14.4 g/dL Normal 13.0-16.5 [facility] Comment on above: Performed By: #### L 500.2500, L100.0100 ####[facility] [address] [place], [address] IG% 0.500 Normal 0.0-0.9 [facility] Comment on above: Result Comment: IG% - Immature Granulocytes (promyelocytes, myelocytes andmetamyelocytes) > 1% indicates that a LEFT SHIFT is Present. Performed By: #### L 500.2500, L100.0100 ####[facility] [address] [place], [address] Lymphocytes/100 WBC (Bld) 14.5 % Low 19-41 [facility] Comment on above: Performed By: #### L 500.2500, L100.0100 ####[facility] [address] [place], [address] MCH (RBC) [Entitic mass] 32.1 pg High 27.0-32.0 [facility] Comment on above: Performed By: #### L 500.2500, L100.0100 ####[facility] [address] [place], [address] MCHC (RBC) [Mass/Vol] 33.5 g/dL Normal 32-36 [facility] Comment on above: Performed By: #### L 500.2500, L100.0100 ####[facility] [address] [place], [address] MCV (RBC) [Entitic vol] 96.0 fL High 80-94 [facility] Comment on above: Performed By: #### L 500.2500, L100.0100 ####[facility] [address] [place], [address] Monocytes/100 WBC (Bld) 6.4 % Normal 0-10 [facility] Comment on above: Performed By: #### L 500.2500, L100.0100 ####[facility] [address] [place], [address] Neutrophils/100 WBC (Bld) 74.2 % High 47-70 [facility] Comment on above: Performed By: #### L 500.2500, L100.0100 ####[facility] [address] [place], [address] Nucleated RBC (Bld) [#/Vol] 0 10*3/uL Normal 0-5 [facility] Comment on above: Performed By: #### L 500.2500, L100.0100 ####[facility] [address] [place], [address] Platelet mean volume (Bld) [Entitic vol] 9.3 fL Normal 6.2-12.0 [facility] Comment on above: Performed By: #### L 500.2500, L100.0100 ####[facility] [address] [place], [address] Platelets (Bld) [#/Vol] 323 10*3/uL Normal 150-450 [facility] Comment on above: Performed By: #### L 500.2500, L100.0100 ####[facility] [address] [place], [address] RBC (Bld) [#/Vol] 4.48 10*6/uL Low 4.6-6.[address] [facility] Comment on above: Performed By: #### L 500.2500, L100.0100 ####[facility] [address] [place], [address] RDW SD 45.7 fl High 35.1-43.9 [facility] Comment on above: Performed By: #### L 500.2500, L100.0100 ####[facility] [address] [place], [address] WBC (Bld) [#/Vol] 10.6 10*3/uL Normal 4.4-11.[address] [facility] Comment on above: Performed By: #### L 500.2500, L100.0100 ####[facility] [address] [place], [address] Carbon dioxide measurementOr dered By: Lacho Joy on 2024 CO2 [Moles/Vol] 26.2 mmol/L 22.0-29.0 [facility] Chest PA and Lateralon 11-27 Chest PA and Lateral Normal [facility] Chloride measurementOrdered By: Lacho Joy on 2024 Chloride [Moles/Vol] 102 mmol/L 96-108 [facility] Creatinine [Moles/Vol]Ordere d By: Lacho Joy on 2024 Creatinine [Mass/Vol] 0.6 mg/dL Low 0.8-1.3 [facility] Emergency Department Summary on 2024 Emergency Department Summary Normal [facility] Eosinophil percentageOrdered By: Lacho Joy on 2024 Eosinophils/100 WBC (Bld) 3.9 % 0-5 [facility] Erythrocyte distribution wid th ratioOrdered By: [facility] on 2024 Erythrocyte distribution width (RBC) [Ratio] 13.0 % 11.6-14.6 [facility] Erythrocyte distribution wid th standard deviationOrdered By: [facility] CityFernie Beatriz on 2024 Erythrocyte distribution width (RBC) [Entitic vol] 45.7 fL High 35.1-43.9 [facility] Estimation of creatinine akbar aranceOrdered By: Lacho Joy on 2024 Estimated Creatinine Clearance Calc 119.44 ml/min [facility] GFR/1.73 sq M.predicted gertrude g non-blacks MDRD (S/P/Bld) [Vol rate/Area]Ordered By: Lacho Joy on 2024 Estimated GFR (MDRD) Non-Af Amer 116 >60 [facility] Comment on above: mL/min/1.73m2 CKD-EP I Creatinine Equation (2020) Hematocrit Auto (Bld) [Volum e fraction]Ordered By: [place] on 2024 Hematocrit (Bld) [Volume fraction] 43.0 % 40-54 [facility] Hemoglobin measurementOrdere d By: Lacho Joy on 2024 Hemoglobin (Bld) [Mass/Vol] 14.4 g/dL 13.0-16.5 [facility] Immature granulocytes/100 WB C Auto (Bld)Ordered By: Lacho Joy on 2024 Immature granulocytes/100 WBC (Bld) 0.500 % 0.0-0.9 [facility] Comment on above: IG% - Immature Granu locytes (promyelocytes, myelocytes and metamyelocytes) > 1% indicates that a LEFT SHIFT is Present. Influenza virus A and B and SARS-CoV-2 (COVID-19) and Respiratory syncytial virus RNAOrdered By: Lacho Joy on 2024 SARS-CoV-2 (COVID-19) RNA WES+probe Ql (Unsp spec) [facility] Lymphocytes Auto (Unsp spec) [#/Vol]Ordered By: Lachojose Joy on 2024 Lymphocytes (Bld) [#/Vol] 1.53 10*3/uL 0.83-4.51 [facility] Lymphocytes/100 WBC Auto (Un sp spec)Ordered By: [place] on 2024 Lymphocytes/100 WBC (Bld) 14.5 % Low 19-41 [facility] M100.678on 2024 M100.678 SARS-CoV-2 (COVID 19 ) Negative INFLUENZA A Negative INFLUENZA B Negative RSV PCR Negative Normal [facility] Comment on above: Performed By: #### M 100.678 ####[facility] [address] [place], [address] MCV (mean corpuscular volume ) determinationOrdered By: Lacho Benita on 2024 MCV (RBC) [Entitic vol] 96.0 fL High 80-94 [facility] Mean corpuscular hemoglobin (MCH) determinationOrdered By: [facility] on 2024 MCH (RBC) [Entitic mass] 32.1 pg High 27.0-32.0 [facility] Mean corpuscular hemoglobin concentration (MCHC) determinationOrdered By: [facility] Center[facility] on 2024 MCHC (RBC) [Mass/Vol] 33.5 g/dL 32-36 [facility] Mean platelet volume determi nationOrdered By: Lacho Joy on 2024 Platelet mean volume (Bld) [Entitic vol] 9.3 fL 6.2-12.0 [facility] Monocyte percentageOrdered B y: Lacho Joy on 2024 Monocytes/100 WBC (Bld) 6.4 % 0-10 [facility] Neutrophil percentageOrdered By: Lacho Joy on 2024 Neutrophils/100 WBC (Bld) 74.2 % High 47-70 [facility] Nucleated red blood cell per centageOrdered By: Lacho Joy on 2024 Nucleated RBC/100 WBC (Bld) [Ratio] 0 % 0-5 [facility] Platelet countOrdered By: Wes Joy on 2024 Platelets (Bld) [#/Vol] 323 10*3/uL 150-450 [facility] RBC Auto (Bld) [#/Vol]Ordere d By: Lacho Joy on 2024 RBC (Bld) [#/Vol] 4.48 10*6/uL Low 4.6-6.[address] [facility] Serum glucose measurement (m ass/volume)Ordered By: Lacho Joy on 2024 Glucose [Mass/Vol] 99 mg/dL 70-99 [facility] Serum or plasma anion gap de termination (moles/volume)Ordered By: Lacho Joy on 2024 Anion gap [Moles/Vol] 10 mmol/L 5-15 [facility] Serum or plasma calcium micah urement (mass/volume)Ordered By: Lacho Henderson on 2024 Calcium [Mass/Vol] 9.1 mg/dL 7.6-11.0 [facility] Serum or plasma potassium me asurementOrdered By: Lacho Joy on 2024 Potassium [Moles/Vol] 4.0 mmol/L 3.3-5.1 [facility] Serum or plasma sodium measu rement (moles/volume)Ordered By: Lacho Henderson on 2024 Sodium [Moles/Vol] 138 mmol/L 133-145 [facility] Serum or plasma urea nitroge n measurement (mass/volume)Ordered By: Lacho Joy on 2024 Urea nitrogen [Mass/Vol] 21 mg/dL High 4-19 [facility] White blood cell (WBC) count Ordered By: Lacho Joy on 2024 WBC (Bld) [#/Vol] 10.6 10*3/uL 4.4-11.[address] [facility] Emergency Department Summary on 11-20-2024 Emergency Department Summary Normal [facility] Absolute neutrophil countOrd ered By: Trang Valencia on 11-12-2024 Neutrophils (Bld) [#/Vol] 7.1 10*3/uL 2.0-7.7 [facility] Albumin to globulin ratioOrd ered By: Trang Valencia on 11-12-2024 Albumin/Globulin [Mass ratio] 1.0 {ratio} Normal 0.9-2.4 [facility] Comment on above: Performed By: #### L 500.4050, L501.5200, L501.2300, L100.0100 ####[facility] [address] [place], [place], [address] Automated blood erythrocyte countOrdered By: Trang Valencia on 11-12-2024 RBC (Bld) [#/Vol] 3.83 10*6/uL Low 4.6-6.[address] [facility] Comment on above: Performed By: #### L 500.4050, L501.5200, L501.2300, L100.0100 ####[facility] [address] [place], [address] Automated blood hematocrit ( percentage)Ordered By: Trang Valencia on 11-12-2024 Hematocrit (Bld) [Volume fraction] 35.6 % Low 40-54 [facility] Comment on above: Performed By: #### L 500.4050, L501.5200, L501.2300, L100.0100 ####[facility] [address] [place], [address] Automated lymphocyte count a s percentage of total leukocytesOrdered By: Trang Valencia on 11-12-2024 Lymphocytes/100 WBC (Bld) 3.5 % Low 19-41 [facility] Comment on above: Performed By: #### L 500.4050, L501.5200, L501.2300, L100.0100 ####[facility] [address] [place], [address] Basophil percentageOrdered B y: Trang Valencia on 11-12-2024 Basophils/100 WBC (Bld) 0.1 % Normal 0-1 [facility] Comment on above: Performed By: #### L 500.4050, L501.5200, L501.2300, L100.0100 ####[facility] [address] [place], [address] Bilirubin, totalOrdered By: Trang Valencia on 11-12-2024 Bilirubin [Mass/Vol] 0.30 mg/dL Normal 0.20-1.00 [facility] Comment on above: For patients on eltr ombopag therapy, use of Dimension [place] TBIL is not recommended. Result Comment: For patients on eltrombopag therapy, use of Dimension [place] TBIL is not recommended. Performed By: #### L 500.4050, L501.5200, L501.2300, L100.0100 ####[facility] [address] [place], [address] Blood urea nitrogen (BUN)/cr eatinine ratioOrdered By: Trang Valencia on 11-12-2024 Urea nitrogen/Creatinine [Mass ratio] 28.2 mg/mg High 10-20 [facility] CBC W/Diff, Automatedon 02- Absolute Lymph 0.26 X10 3/uL Low 0.83-4.51 [facility] Comment on above: Performed By: #### L 500.4050, L501.5200, L501.2300, L100.0100 ####[facility] [address] [place], [address] Absolute Neut 7.1 X10 3/uL Normal 2.0-7.7 [facility] Comment on above: Performed By: #### L 500.4050, L501.5200, L501.2300, L100.0100 ####[facility] [address] [place], [address] IG% 0.400 Normal 0.0-0.9 [facility] Comment on above: Result Comment: IG% - Immature Granulocytes (promyelocytes, myelocytes andmetamyelocytes) > 1% indicates that a LEFT SHIFT is Present. Performed By: #### L 500.4050, L501.5200, L501.2300, L100.0100 ####[facility] [address] [place], [address] Nucleated RBC (Bld) [#/Vol] 0 10*3/uL Normal 0-5 [facility] Comment on above: Performed By: #### L 500.4050, L501.5200, L501.2300, L100.0100 ####[facility] [address] [place], [address] RDW SD 45.3 fl High 35.1-43.9 [facility] Comment on above: Performed By: #### L 500.4050, L501.5200, L501.2300, L100.0100 ####[facility] [address] [place], [address] Carbon dioxide measurementOr dered By: Trang Valencia on 11-12-2024 CO2 [Moles/Vol] 25.0 mmol/L Normal 21.0-32.0 [facility] Comment on above: Performed By: #### L 500.4050, L501.5200, L501.2300, L100.0100 ####[facility] [address] [place], [address] Chloride measurementOrdered By: Trang Valencia on 11-12-2024 Chloride [Moles/Vol] 106 mmol/L Normal 98-107 [facility] Comment on above: Performed By: #### L 500.4050, L501.5200, L501.2300, L100.0100 ####[facility] [address] [place], [address] Comprehensive Metabolic Prof ilon 11-12-2024 ALK P 41 U/L Low 45-117 [facility] Comment on above: Performed By: #### L 500.4050, L501.5200, L501.2300, L100.0100 ####[facility] [address] [place], [address] BUN/CRE 28.2 RATIO High 10-20 [facility] Comment on above: Performed By: #### L 500.4050, L501.5200, L501.2300, L100.0100 ####[facility] [address] [place], [address] CA,Total 8.8 mg/dL Normal 8.5-10.1 [facility] Comment on above: Performed By: #### L 500.4050, L501.5200, L501.2300, L100.0100 ####[facility] [address] [place], [address] ECRCL 91.57 ml/min Normal [facility] Comment on above: Performed By: #### L 500.4050, L501.5200, L501.2300, L100.0100 ####[facility] [address] [place], [address] EST GFR - AA 136 mL/min Normal >60 [facility] Comment on above: Result Comment: Afri can Cameroonian GFR Calc Performed By: #### L 500.4050, L501.5200, L501.2300, L100.0100 ####[facility] [address] [place], [address] GAP 8 Normal 5-15 [facility] Comment on above: Performed By: #### L 500.4050, L501.5200, L501.2300, L100.0100 ####[facility] [address] [place], [address] GFR/1.73 sq M.predicted among non-blacks MDRD (S/P/Bld) [Vol rate/Area] 112 mL/min/{1.73_m2} Normal >60 [facility] Comment on above: Result Comment: Non- GFR Calc Performed By: #### L 500.4050, L501.5200, L501.2300, L100.0100 ####[facility] [address] [place], [address] T PROT 6.4 g/dL Normal 6.4-8.2 [facility] Comment on above: Performed By: #### L 500.4050, L501.5200, L501.2300, L100.0100 ####[facility] [address] [place], [address] Comprehensive Metabolic Prof ilOrdered By: Trang Valencia on 11-12-2024 AST [Catalytic activity/Vol] 18 U/L Normal 15-37 [facility] Comment on above: Performed By: #### L 500.4050, L501.5200, L501.2300, L100.0100 ####[facility] [address] [place], [address] Eosinophil percentageOrdered By: Trang Valencia on 11-12-2024 Eosinophils/100 WBC (Bld) 0.0 % Normal 0-5 [facility] Comment on above: Performed By: #### L 500.4050, L501.5200, L501.2300, L100.0100 ####[facility] [address] [place], [address] Erythrocyte distribution wid th ratioOrdered By: Trang Valencia on 11-12-2024 Erythrocyte distribution width (RBC) [Ratio] 13.3 % Normal 11.6-14.6 [facility] Comment on above: Performed By: #### L 500.4050, L501.5200, L501.2300, L100.0100 ####[facility] [address] [place], [place], [id number] Erythrocyte distribution wid th standard deviationOrdered By: Trang Valencia on 11-12-2024 Erythrocyte distribution width (RBC) [Entitic vol] 45.3 fL High 35.1-43.9 [facility] Estimated glomerular filtrat ion rate (GFR) AmericanOrdered By: Trang Valencia on 11-12-2024 Estimated GFR (MDRD) Amer 136 mL/min >60 [facility] Comment on above: GFR Calc Estimation of creatinine akbar aranceOrdered By: Trang Valencia on 11-12-2024 Estimated Creatinine Clearance Calc 91.57 ml/min [facility] Glomerular filtration rate ( GFR) estimationOrdered By: Trang Valencia on 11-12-2024 Estimated GFR (MDRD) Non-Af Amer 112 mL/min >60 [facility] Comment on above: Non- GFR Calc Glucose measurementOrdered B y: Trang Valencia on 11-12-2024 Glucose [Mass/Vol] 197 mg/dL High 74-106 [facility] Comment on above: Fasting Glucose resu lt greater than or equal to 126 mg/dL suggests DIABETES MELLITUS per A.D.A. criteria. Result Comment: Fast ing Glucose result greater than or equal to 126 mg/dLsuggests DIABETES MELLITUS per A.D.A. criteria. Performed By: #### L 500.4050, L501.5200, L501.2300, L100.0100 ####[facility] [address] [place], [address] Hemoglobin measurementOrdere d By: Trang Valencia on 11-12-2024 Hemoglobin (Bld) [Mass/Vol] 12.2 g/dL Low 13.0-16.5 [facility] Comment on above: Performed By: #### L 500.4050, L501.5200, L501.2300, L100.0100 ####[facility] [address] [place], [address] Immature granulocytes/100 WB C Auto (Bld)Ordered By: Trang Valencia on 11-12-2024 Immature granulocytes/100 WBC (Bld) 0.400 % 0.0-0.9 [facility] Comment on above: IG% - Immature Granu locytes (promyelocytes, myelocytes and metamyelocytes) > 1% indicates that a LEFT SHIFT is Present. Lymphocytes Auto (Unsp spec) [#/Vol]Ordered By: Trang Valencia on 11-12-2024 Lymphocytes (Bld) [#/Vol] 0.26 10*3/uL Low 0.83-4.51 [facility] MCV (mean corpuscular volume ) determinationOrdered By: Trang Valencia on 11-12-2024 MCV (RBC) [Entitic vol] 93.0 fL Normal 80-94 [facility] Comment on above: Performed By: #### L 500.4050, L501.5200, L501.2300, L100.0100 ####[facility] [address] [place], [place], [id number] Magnesium measurementOrdered By: Trang Valencia on 11-12-2024 Magnesium [Mass/Vol] 2.1 mg/dL Normal 1.6-2.6 [facility] Comment on above: Performed By: #### L 500.4050, L501.5200, L501.2300, L100.0100 ####[facility] [address] [place], [address] Mean corpuscular hemoglobin (MCH) determinationOrdered By: Trang Valencia on 11-12-2024 MCH (RBC) [Entitic mass] 31.9 pg Normal 27.0-32.0 [facility] Comment on above: Performed By: #### L 500.4050, L501.5200, L501.2300, L100.0100 ####[facility] [address] [place], [address] Mean corpuscular hemoglobin concentration (MCHC) determinationOrdered By: Trang Valencia on 11-12-2024 MCHC (RBC) [Mass/Vol] 34.3 g/dL Normal 32-36 [facility] Comment on above: Performed By: #### L 500.4050, L501.5200, L501.2300, L100.0100 ####[facility] [address] [place], [address] Mean platelet volume determi nationOrdered By: Trang Valencia on 11-12-2024 Platelet mean volume (Bld) [Entitic vol] 9.3 fL Normal 6.2-12.0 [facility] Comment on above: Performed By: #### L 500.4050, L501.5200, L501.2300, L100.0100 ####[facility] [address] [place], [address] Monocyte percentageOrdered B y: Trang Valencia on 11-12-2024 Monocytes/100 WBC (Bld) 1.5 % Normal 0-10 [facility] Comment on above: Performed By: #### L 500.4050, L501.5200, L501.2300, L100.0100 ####[facility] [address] [place], [address] Neutrophil percentageOrdered By: Trang Valencia on 11-12-2024 Neutrophils/100 WBC (Bld) 94.5 % High 47-70 [facility] Comment on above: Performed By: #### L 500.4050, L501.5200, L501.2300, L100.0100 ####[facility] [address] [place], [address] Nucleated red blood cell per centageOrdered By: Trang Valencia on 11-12-2024 Nucleated RBC/100 WBC (Bld) [Ratio] 0 % 0-5 [facility] Phosphoruson 11-12-2024 Phosphate [Mass/Vol] 2.9 mg/dL Normal 2.5-4.9 [facility] Comment on above: Performed By: #### L 500.4050, L501.5200, L501.2300, L100.0100 ####[facility] [address] [place], [address] Phosphorus measurementOrdere d By: Trang Valencia on 11-12-2024 Phosphorus Level 2.9 mg/dL 2.5-4.9 [facility] Platelet countOrdered By: Denise Valencia on 11-12-2024 Platelets (Bld) [#/Vol] 267 10*3/uL Normal 150-450 [facility] Comment on above: Performed By: #### L 500.4050, L501.5200, L501.2300, L100.0100 ####[facility] [address] [place], [address] Potassium measurementOrdered By: Trang Valencia on 11-12-2024 Potassium [Moles/Vol] 3.9 mmol/L Normal 3.5-5.1 [facility] Comment on above: Performed By: #### L 500.4050, L501.5200, L501.2300, L100.0100 ####[facility] [address] [place], [address] Serum anion gap measurementO rdered By: Trang Valencia on 11-12-2024 Anion gap [Moles/Vol] 8 mmol/L 5-15 [facility] Serum globulin measurementOr dered By: Trang Valencia on 11-12-2024 Globulin (S) [Mass/Vol] 3.2 g/dL Normal 2.2-4.2 [facility] Comment on above: Performed By: #### L 500.4050, L501.5200, L501.2300, L100.0100 ####[facility] [address] [place], [address] Serum or plasma alanine love otransferase (ALT) measurementOrdered By: Trang Valencia on 11-12-2024 ALT [Catalytic activity/Vol] 30 U/L Normal 16-61 [facility] Comment on above: Performed By: #### L 500.4050, L501.5200, L501.2300, L100.0100 ####[facility] [address] [place], [address] Serum or plasma albumin micah urement (mass/volume)Ordered By: Trang Valencia on 11-12-2024 Albumin [Mass/Vol] 3.2 g/dL Normal 3.2-5.0 [facility] Comment on above: Performed By: #### L 500.4050, L501.5200, L501.2300, L100.0100 ####[facility] [address] [facility] [place], [address] Serum or plasma alkaline jd sphatase measurementOrdered By: Trang Valencia on 11-12-2024 ALP [Catalytic activity/Vol] 41 U/L Low 45-117 [facility] Serum or plasma calcium micah urement (mass/volume)Ordered By: Trang Valencia on 11-12-2024 Calcium [Mass/Vol] 8.8 mg/dL 8.5-10.1 [facility] Serum or plasma creatinine m easurement (mass/volume)Ordered By: Trang Valencia on 11-12-2024 Creatinine [Mass/Vol] 0.78 mg/dL Normal 0.70-1.30 [facility] Comment on above: The validity of the calculated GFR & GFRAA in patients over 70 years has not been determined. Clinical correlation is essential. Result Comment: The validity of the calculated GFR GFRAA in patients over70 years has not been determined. Clinical correlation isessential. Performed By: #### L 500.4050, L501.5200, L501.2300, L100.0100 ####[facility] [address] [place], [address] Serum or plasma urea nitroge n measurement (mass/volume)Ordered By: Trang Valencia on 11-12-2024 Urea nitrogen [Mass/Vol] 22 mg/dL High 7-18 [facility] Comment on above: Performed By: #### L 500.4050, L501.5200, L501.2300, L100.0100 ####[facility] [address] [place], [address] Sodium levelOrdered By: Ema Valencia on 11-12-2024 Sodium [Moles/Vol] 139 mmol/L Normal 136-145 [facility] Comment on above: Performed By: #### L 500.4050, L501.5200, L501.2300, L100.0100 ####[facility] [address] [place], [address] Total proteinOrdered By: Dyana Valencia on 11-12-2024 Protein [Mass/Vol] 6.4 g/dL 6.4-8.2 [facility] White blood cell (WBC) count Ordered By: Trang Valencia on 11-12-2024 WBC (Bld) [#/Vol] 7.5 10*3/uL Normal 4.4-11.0 [facility] Comment on above: Performed By: #### L 500.4050, L501.5200, L501.2300, L100.0100 ####[facility] [address] [place], [address] 12 Lead EKGon 11-11-2024 12 Lead EKG Normal [facility] Arterial patency Wrist arter y --pre arterial punctureOrdered By: Remberto Bernal on 11-11-2024 Connie Test Positive [facility] Base excess Calc (BldV) [Mol es/Vol]Ordered By: Remus Dolores on 11-11-2024 Blood Gas Base Excess 7 mmol/L High -2-2 [facility] Basic Metabolic Profile (BMP )on 11-11-2024 BUN/CRE 18.1 RATIO Normal 10-20 [facility] Comment on above: Performed By: #### L 500.2500, L100.0100 ####[facility] [address] [place], [address] CA,Total 9.2 mg/dL Normal 8.5-10.1 [facility] Comment on above: Performed By: #### L 500.2500, L100.0100 ####[facility] [address] [place], [address] Chloride [Moles/Vol] 102 mmol/L Normal 98-107 [facility] Comment on above: Performed By: #### L 500.2500, L100.0100 ####[facility] [address] [place], [address] CO2 [Moles/Vol] 32.0 mmol/L Normal 21.0-32.0 [facility] Comment on above: Performed By: #### L 500.2500, L100.0100 ####[facility] [address] [place], [address] Creatinine [Mass/Vol] 1.05 mg/dL Normal 0.70-1.30 [facility] Comment on above: Result Comment: The validity of the calculated GFR GFRAA in patients over70 years has not been determined. Clinical correlation isessential. Performed By: #### L 500.2500, L100.0100 ####[facility] [address] [place], [address] ECRCL 70.10 ml/min Normal [facility] Comment on above: Performed By: #### L 500.2500, L100.0100 ####[facility] [address] [place], [address] EST GFR TNP Normal >60 [facility] Comment on above: Result Comment: Non- GFR Calc Performed By: #### L 500.2500, L100.0100 ####[facility] [address] [place], [address] EST GFR - AA TNP Normal >60 [facility] Comment on above: Result Comment: Afri can Cameroonian GFR Calc Performed By: #### L 500.2500, L100.0100 ####[facility] [address] [place], [address] GAP 9 Normal 5-15 [facility] Comment on above: Performed By: #### L 500.2500, L100.0100 ####[facility] [address] [place], [address] Glucose [Mass/Vol] 202 mg/dL High 74-106 [facility] Comment on above: Result Comment: Gluc ose result greater than or equal to 200 mg/dLsuggests DIABETES MELLITUS per A.D.A. criteria. Performed By: #### L 500.2500, L100.0100 ####[facility] [address] [place], [address] Potassium [Moles/Vol] 4.0 mmol/L Normal 3.5-5.1 [facility] Comment on above: Performed By: #### L 500.2500, L100.0100 ####[facility] [address] [place], [address] Sodium [Moles/Vol] 142 mmol/L Normal 136-145 [facility] Comment on above: Performed By: #### L 500.2500, L100.0100 ####[facility] [address] [place], [address] Urea nitrogen [Mass/Vol] 19 mg/dL High 7-18 [facility] Comment on above: Performed By: #### L 500.2500, L100.0100 ####[facility] [address] [place], [address] Blood Gases by [facility] 025 CONNIE TEST Positive Normal [facility] Comment on above: Performed By: #### L 9000.0800 ####[facility] [address] [place], [address] Base excess Calc (Bld) [Moles/Vol] 7 mmol/L High -2 to +2 [facility] Comment on above: Performed By: #### L 0.0800 ####[facility] [address] [place], [address] Blood Gas Type ART Normal [facility] Comment on above: Performed By: #### L 8999.0800 ####[facility] [address] [place], [address] CO2 [Moles/Vol] 35 mmol/L Normal [facility] Comment on above: Performed By: #### L 0.0800 ####[facility] [address] [place], [address] FI02 35.0 Normal [facility] Comment on above: Performed By: #### L 8999.0800 ####[facility] [address] [place], [address] HCO3 (Bld) [Moles/Vol] 32.9 mmol/L High 22-26 [facility] Comment on above: Performed By: #### L 8999.0800 ####[facility] [address] [place], [address] Mode Not entered Normal [facility] Comment on above: Performed By: #### L 0.0800 ####[facility] [address] [place], [address] O2 Delivery Dev BiPAP Normal [facility] Comment on above: Performed By: #### L 8999.0800 ####[facility] [address] [place], [address] pCO2 65.3 mmHg High 35-45 [facility] Comment on above: Performed By: #### L 0.0800 ####[facility] [address] [place], [address] PEEP 6 Normal [facility] Comment on above: Performed By: #### L 9000.0800 ####[facility] [address] [place], [address] pH (Bld) 7.31 [pH] Low 7.35-7.45 [facility] Comment on above: Performed By: #### L 9000.0800 ####[facility] [address] [place], [address] PO2 183 mmHG High 75-100 [facility] Comment on above: Performed By: #### L 9000.0800 ####[facility] [address] [place], [address] SITE L Radial Normal [facility] Comment on above: Performed By: #### L 9000.0800 ####[facility] [address] [place], [address] SO2 99 Normal 95-99 [facility] Comment on above: Performed By: #### L 9000.0800 ####[facility] [address] [place], [address] Blood bicarbonate measuremen tOrdered By: Remberto Bernal on 11-11-2024 Blood Gas Bicarbonate Actual 32.9 mmol/L High 22-26 [facility] CBC W/Diff, Automatedon 11-02 Absolute Lymph 2.64 X10 3/uL Normal 0.83-4.51 [facility] Comment on above: Performed By: #### L 500.2500, L100.0100 ####[facility] [address] [place], [address] Absolute Neut 7.7 X10 3/uL Normal 2.0-7.7 [facility] Comment on above: Performed By: #### L 500.2500, L100.0100 ####[facility] [address], [address] Basophils/100 WBC (Bld) 0.8 % Normal 0-1 [facility] Comment on above: Performed By: #### L 500.2500, L100.0100 ####[facility] [address] [place], [address] Eosinophils/100 WBC (Bld) 2.9 % Normal 0-5 [facility] Comment on above: Performed By: #### L 500.2500, L100.0100 ####[facility] [address] [place], [address] Erythrocyte distribution width (RBC) [Ratio] 13.2 % Normal 11.6-14.6 [facility] Comment on above: Performed By: #### L 500.2500, L100.0100 ####[facility] [address] [place], [address] Hematocrit (Bld) [Volume fraction] 44.1 % Normal 40-54 [facility] Comment on above: Performed By: #### L 500.2500, L100.0100 ####[facility] [address] [place], [address] Hemoglobin (Bld) [Mass/Vol] 14.5 g/dL Normal 13.0-16.5 [facility] Comment on above: Performed By: #### L 500.2500, L100.0100 ####[facility] [address] [place], [address] IG% 0.300 Normal 0.0-0.9 [facility] Comment on above: Result Comment: IG% - Immature Granulocytes (promyelocytes, myelocytes andmetamyelocytes) > 1% indicates that a LEFT SHIFT is Present. Performed By: #### L 500.2500, L100.0100 ####[facility] [address], [address] Lymphocytes/100 WBC (Bld) 23.1 % Normal 19-41 [facility] [facility] Comment on above: Performed By: #### L 500.2500, L100.0100 ####[facility] [address] [place], [address] MCH (RBC) [Entitic mass] 31.5 pg Normal 27.0-32.0 [facility] Comment on above: Performed By: #### L 500.2500, L100.0100 ####[facility] [address] [place], [address] MCHC (RBC) [Mass/Vol] 32.9 g/dL Normal 32-36 [facility] Comment on above: Performed By: #### L 500.2500, L100.0100 ####[facility] [address] [place], [address] MCV (RBC) [Entitic vol] 95.7 fL High 80-94 [facility] Comment on above: Performed By: #### L 500.2500, L100.0100 ####[facility] [address] [place], [address] Monocytes/100 WBC (Bld) 5.6 % Normal 0-10 [facility] Comment on above: Performed By: #### L 500.2500, L100.0100 ####[facility] [address] [place], [address] Neutrophils/100 WBC (Bld) 67.3 % Normal 47-70 [facility] Comment on above: Performed By: #### L 500.2500, L100.0100 ####[facility] [address] [place], [address] Nucleated RBC (Bld) [#/Vol] 0 10*3/uL Normal 0-5 [facility] Comment on above: Performed By: #### L 500.2500, L100.0100 ####[facility] [address] [place], [address] Platelet mean volume (Bld) [Entitic vol] 9.2 fL Normal 6.2-12.0 [facility] Comment on above: Performed By: #### L 500.2500, L100.0100 ####[facility] [address] [place], [address] Platelets (Bld) [#/Vol] 400 10*3/uL Normal 150-450 [facility] Comment on above: Performed By: #### L 500.2500, L100.0100 ####[facility] [address] [place], [address] RBC (Bld) [#/Vol] 4.61 10*6/uL Normal 4.6-6.[address] [facility] Comment on above: Performed By: #### L 500.2500, L100.0100 ####[facility] [address] [place], [address] RDW SD 46.2 fl High 35.1-43.9 [facility] Comment on above: Performed By: #### L 500.2500, L100.0100 ####[facility] [address] [place], [address] WBC (Bld) [#/Vol] 11.4 10*3/uL High 4.4-11.[address] [facility] Comment on above: Performed By: #### L 500.2500, L100.0100 ####[facility] [address] [place], [address] Chest 1 View (Portable)on Chest 1 View (Portable) Normal [facility] Determination of fraction of inspired oxygenOrdered By: Remberto Bernal on 11-11-2024 Blood Gas Oxygen Percent 35.0 [facility] Emergency Department Summary on 11-11-2024 Emergency Department Summary Normal [facility] H AND P Exam - Hospitaliston 11-11-2024 H&P Exam - Hospitalist Normal [facility] Hemoglobin A1con 11-11-2024 HbA1c (Bld) [Mass fraction] 6.0 % High 3.8-5.6 [facility] Comment on above: Result Comment: Norm al < 5.7 % Prediabetic 5.7 - 6.4 % Diabetic >or= 6.5 % Please note range changes. Performed By: #### L 501.3905 ####[facility] [address] [place], [place], [id number] Hemoglobin A1c percentageOrd ered By: Trang Valencia on 11-11-2024 HbA1c (Bld) [Mass fraction] 6.0 % High 3.8-5.6 [facility] Comment on above: Normal < 5.7 % Predi abetic 5.7 - 6.4 % Diabetic >or= 6.5 % Please note range changes. Influenza virus A and B and SARS-CoV-2 (COVID-19) and Respiratory syncytial virus RNAOrdered By: Remberto Bernal on 11-11-2024 SARS-CoV-2 (COVID-19) RNA WES+probe Ql (Unsp spec) [facility] M100.678on 11-11-2024 M100.678 Pending SARS-CoV-2 (COVID 19) Negative INFLUENZA A Negative INFLUENZA B Negative RSV PCR Negative Normal [facility] Comment on above: Performed By: #### M 100.678 ####[facility] [address] [place], [place], [address] No Panel InformationOrdered By: Remberto Bernal on 11-11-2024 Bedside Blood Gas PEEP 6 [facility] Blood Gas Sample Site L Radial [facility] Blood Gas Specimen Type ART [facility] Blood Gas Vent Mode Not entered [facility] Oxygen Delivery Device BiPAP [facility] Oxygen saturation measuremen tOrdered By: Remberto Bernal on 11-11-2024 Blood Gas Oxygen Saturation 99 % 95-99 [facility] Partial pressure of carbon d ioxide measurementOrdered By: Remberto Bernal on 11-11-2024 Arterial Blood Partial Pressure CO2 65.3 mmHg High 35-45 [facility] Partial pressure of oxygen m easurementOrdered By: Remberto Bernal on 11-11-2024 Arterial Blood Partial Pressure O2 183 mmHG High 75-100 [facility] RESPIRATORY PANEL MOLECULARo n 11-11-2024 RP PANEL Normal [facility] Comment on above: Performed By: #### M 100.638 ####[facility] [address] [place], [address] Respiratory pathogens DNA an d RNA panel WES+probe (Resp)Ordered By: Trang Valencia on 11-11-2024 Respiratory Panel (PCR) [facility] Total carbon dioxide measure mentOrdered By: Remberto Bernal on 11-11-2024 Blood Gas Total CO2 35 mmol/L [facility] pH (Unsp spec)Ordered By: Holli Bernal on 11-11-2024 Blood Gas pH 7.31 Low 7.35-7.45 [facility] Respiratory Cultureon 2024 RESPC Mixed normal respiratory chey[place]. No Streptococcus pneumoniae, beta-hemolytic Streptococcus or Staphylococcus aureus isolated. Normal [facility] Comment on above: Performed By: #### M 100.2400, M300.4600, M100.2000, M300.4500 ####[facility] [address] [place], [address] Absolute neutrophil countOrd ered By: Graham Tolbert on 10-23-2024 Neutrophils (Bld) [#/Vol] 11.4 10*3/uL High 2.0-7.7 [facility] Basic Metabolic Profile (BMP )on 10-23-2024 BUN/CRE 29.6 RATIO High 10-20 [facility] Comment on above: Performed By: #### L 100.0100, L500.2500 ####[facility] [address] [place], [address] CA,Total 9.3 mg/dL Normal 8.5-10.1 [facility] Comment on above: Performed By: #### L 100.0100, L500.2500 ####[facility] [address] [place], [address] Chloride [Moles/Vol] 105 mmol/L Normal 98-107 [facility] Comment on above: Performed By: #### L 100.0100, L500.2500 ####[facility] [address] [place], [address] CO2 [Moles/Vol] 28.0 mmol/L Normal 21.0-32.0 [facility] Comment on above: Performed By: #### L 100.0100, L500.2500 ####[facility] [address] [place], [address] Creatinine [Mass/Vol] 0.78 mg/dL Normal 0.70-1.30 [facility] Comment on above: Result Comment: The validity of the calculated GFR GFRAA in patients over70 years has not been determined. Clinical correlation isessential. Performed By: #### L 100.0100, L500.2500 ####[facility] [address] [place], [address] ECRCL 90.10 ml/min Normal [facility] Comment on above: Performed By: #### L 100.0100, L500.2500 ####[facility] [address] [place], [address] EST GFR - AA 137 mL/min Normal >60 [facility] Comment on above: Result Comment: Afri can Cameroonian GFR Calc Performed By: #### L 100.0100, L500.2500 ####[facility] [address] [place], [address] GAP 5 Normal 5-15 [facility] Comment on above: Performed By: #### L 100.0100, L500.2500 ####[facility] [address] [place], [address] GFR/1.73 sq M.predicted among non-blacks MDRD (S/P/Bld) [Vol rate/Area] 113 mL/min/{1.73_m2} Normal >60 [facility] Comment on above: Result Comment: Non- GFR Calc Performed By: #### L 100.0100, L500.2500 ####[facility] [address] [place], [address] Glucose [Mass/Vol] 143 mg/dL High 74-106 [facility] Comment on above: Result Comment: Fast ing Glucose result greater than or equal to 126 mg/dLsuggests DIABETES MELLITUS per A.D.A. criteria. Performed By: #### L 100.0100, L500.2500 ####[facility] [address] [place], [address] Potassium [Moles/Vol] 4.4 mmol/L Normal 3.5-5.1 [facility] Comment on above: Performed By: #### L 100.0100, L500.2500 ####[facility] [address] [place], [address] Sodium [Moles/Vol] 138 mmol/L Normal 136-145 [facility] Comment on above: Performed By: #### L 100.0100, L500.2500 ####[facility] [address] [place], [address] Urea nitrogen [Mass/Vol] 23 mg/dL High 7-18 [facility] Comment on above: Performed By: #### L 100.0100, L500.2500 ####[facility] [address] [place], [address] Basophil percentageOrdered B y: Graham Tolbert on 10-23-2024 Basophils/100 WBC (Bld) 0.1 % 0-1 [facility] Blood urea nitrogen (BUN)/cr eatinine ratioOrdered By: Graham Tolbert on 10-23-2024 Urea nitrogen/Creatinine [Mass ratio] 29.6 mg/mg High 10-20 [facility] CBC W/Diff, Automatedon 10-03 Absolute Lymph 0.73 X10 3/uL Low 0.83-4.51 [facility] Comment on above: Performed By: #### L 100.0100, L500.2500 ####[facility] [address] [place], [address] Absolute Neut 11.4 X10 3/uL High 2.0-7.7 [facility] Comment on above: Performed By: #### L 100.0100, L500.2500 ####[facility] [address] [place], [address] Basophils/100 WBC (Bld) 0.1 % Normal 0-1 [facility] Comment on above: Performed By: #### L 100.0100, L500.2500 ####[facility] [address] [place], [address] Eosinophils/100 WBC (Bld) 0.0 % Normal 0-5 [facility] Comment on above: Performed By: #### L 100.0100, L500.2500 ####[facility] [address] [place], [address] Erythrocyte distribution width (RBC) [Ratio] 13.1 % Normal 11.6-14.6 [facility] Comment on above: Performed By: #### L 100.0100, L500.2500 ####[facility] [address] [place], [address] Hematocrit (Bld) [Volume fraction] 36.9 % Low 40-54 [facility] Comment on above: Performed By: #### L 100.0100, L500.2500 ####[facility] [address], [address] Hemoglobin (Bld) [Mass/Vol] 12.1 g/dL Low 13.0-16.5 [facility] Comment on above: Performed By: #### L 100.0100, L500.2500 ####[facility] [address] [place], [address] IG% 0.500 Normal 0.0-0.9 [facility] Comment on above: Result Comment: IG% - Immature Granulocytes (promyelocytes, myelocytes andmetamyelocytes) > 1% indicates that a LEFT SHIFT is Present. Performed By: #### L 100.0100, L500.2500 ####[facility] [address] [place], [address] Lymphocytes/100 WBC (Bld) 5.7 % Low 19-41 [facility] Comment on above: Performed By: #### L 100.0100, L500.2500 ####[facility] [address] [place], [address] MCH (RBC) [Entitic mass] 31.2 pg Normal 27.0-32.0 [facility] Comment on above: Performed By: #### L 100.0100, L500.2500 ####[facility] [address] [place], [address] MCHC (RBC) [Mass/Vol] 32.8 g/dL Normal 32-36 [facility] Comment on above: Performed By: #### L 100.0100, L500.2500 ####[facility] [address] [place], [address] MCV (RBC) [Entitic vol] 95.1 fL High 80-94 [facility] Comment on above: Performed By: #### L 100.0100, L500.2500 ####[facility] [address] [place], [address] Monocytes/100 WBC (Bld) 4.2 % Normal 0-10 [facility] Comment on above: Performed By: #### L 100.0100, L500.2500 ####[facility] [address] [place], [address] Neutrophils/100 WBC (Bld) 89.5 % High 47-70 [facility] Comment on above: Performed By: #### L 100.0100, L500.2500 ####[facility] [address] [place], [address] Nucleated RBC (Bld) [#/Vol] 0 10*3/uL Normal 0-5 [facility] Comment on above: Performed By: #### L 100.0100, L500.2500 ####[facility] [address] [place], [address] Platelet mean volume (Bld) [Entitic vol] 9.6 fL Normal 6.2-12.0 [facility] Comment on above: Performed By: #### L 100.0100, L500.2500 ####[facility] [address] [place], [address] Platelets (Bld) [#/Vol] 287 10*3/uL Normal 150-450 [facility] Comment on above: Performed By: #### L 100.0100, L500.2500 ####[facility] [address] [place], [address] RBC (Bld) [#/Vol] 3.88 10*6/uL Low 4.6-6.[address] [facility] Comment on above: Performed By: #### L 100.0100, L500.2500 ####[facility] [address] [place], [address] RDW SD 45.7 fl High 35.1-43.9 [facility] Comment on above: Performed By: #### L 100.0100, L500.2500 ####[facility] [address] [place], [address] WBC (Bld) [#/Vol] 12.8 10*3/uL High 4.4-11.[address] [facility] Comment on above: Performed By: #### L 100.0100, L500.2500 ####[facility] [address] [place], [address] Carbon dioxide measurementOr dered By: Graham Tolbert on 10-23-2024 CO2 [Moles/Vol] 28.0 mmol/L 21.0-32.0 [facility] Chloride measurementOrdered By: Graham Tolbert on 10-23-2024 Chloride [Moles/Vol] 105 mmol/L 98-107 [facility] Eosinophil percentageOrdered By: Graham Tolbert on 10-23-2024 Eosinophils/100 WBC (Bld) 0.0 % 0-5 [facility] Erythrocyte distribution wid th ratioOrdered By: Graham Tolbert on 10-23-2024 Erythrocyte distribution width (RBC) [Ratio] 13.1 % 11.6-14.6 [facility] Erythrocyte distribution wid th standard deviationOrdered By: Graham Tolbert on 10-23-2024 Erythrocyte distribution width (RBC) [Entitic vol] 45.7 fL High 35.1-43.9 [facility] Estimated glomerular filtrat ion rate (GFR) AmericanOrdered By: Graham Tolbert on 10-23-2024 Estimated GFR (MDRD) Amer 137 mL/min >60 [facility] Comment on above: GFR Calc Estimation of creatinine akbar aranceOrdered By: Graham Tolbert on 10-23-2024 Estimated Creatinine Clearance Calc 90.10 ml/min [facility] Glomerular filtration rate ( GFR) estimationOrdered By: Graham Tolbert on 10-23-2024 Estimated GFR (MDRD) Non-Af Amer 113 mL/min >60 [facility] Comment on above: Non- GFR Calc Glucose measurementOrdered B y: Graham Tolbert on 10-23-2024 Glucose [Mass/Vol] 143 mg/dL High 74-106 [facility] Comment on above: Fasting Glucose resu lt greater than or equal to 126 mg/dL suggests DIABETES MELLITUS per A.D.A. criteria. Gram Stainon 10-23-2024 GS Acceptable Specimen? Yes (<25 Epithelial cells per/lpf) Gram Stain No cells seen Very Rare Gram positive cocci Normal [facility] Comment on above: Performed By: #### M 100.2400, M300.4600, M100.2000, M300.4500 ####[facility] [address] [place], [address] Hematocrit Auto (Bld) [Volum e fraction]Ordered By: Graham Tolbert on 10-23-2024 Hematocrit (Bld) [Volume fraction] 36.9 % Low 40-54 [facility] Hemoglobin measurementOrdere d By: Graham Tolbert on 10-23-2024 Hemoglobin (Bld) [Mass/Vol] 12.1 g/dL Low 13.0-16.5 [facility] Immature granulocytes/100 WB C Auto (Bld)Ordered By: Graham Tolbert on 10-23-2024 Immature granulocytes/100 WBC (Bld) 0.500 % 0.0-0.9 [facility] Comment on above: IG% - Immature Granu locytes (promyelocytes, myelocytes and metamyelocytes) > 1% indicates that a LEFT SHIFT is Present. Lymphocytes Auto (Unsp spec) [#/Vol]Ordered By: Graham Tolbert on 10-23-2024 Lymphocytes (Bld) [#/Vol] 0.73 10*3/uL Low 0.83-4.51 [facility] Lymphocytes/100 WBC Auto (Un sp spec)Ordered By: Graham Tolbert on 10-23-2024 Lymphocytes/100 WBC (Bld) 5.7 % Low 19-41 [facility] MCV (mean corpuscular volume ) determinationOrdered By: Graham Tolbert on 10-23-2024 MCV (RBC) [Entitic vol] 95.1 fL High 80-94 [facility] Mean corpuscular hemoglobin (MCH) determinationOrdered By: Graham Tolbert on 10-23-2024 MCH (RBC) [Entitic mass] 31.2 pg 27.0-32.0 [facility] Mean corpuscular hemoglobin concentration (MCHC) determinationOrdered By: Graham Tolbert on 10-23-2024 MCHC (RBC) [Mass/Vol] 32.8 g/dL 32-36 [facility] Mean platelet volume determi nationOrdered By: Graham Tolbert on 10-23-2024 Platelet mean volume (Bld) [Entitic vol] 9.6 fL 6.2-12.0 [facility] Monocyte percentageOrdered B y: Graham Tolbert on 10-23-2024 Monocytes/100 WBC (Bld) 4.2 % 0-10 [facility] Neutrophil percentageOrdered By: Graham Tolbert on 10-23-2024 Neutrophils/100 WBC (Bld) 89.5 % High 47-70 [facility] Nucleated red blood cell per centageOrdered By: Graham Tolbert on 10-23-2024 Nucleated RBC/100 WBC (Bld) [Ratio] 0 % 0-5 [facility] Platelet countOrdered By: Edouard Tolbert on 10-23-2024 Platelets (Bld) [#/Vol] 287 10*3/uL 150-450 [facility] Potassium measurementOrdered By: Graham Tolbert on 10-23-2024 Potassium [Moles/Vol] 4.4 mmol/L 3.5-5.1 [facility] RBC Auto (Bld) [#/Vol]Ordere d By: Graham Tolbert on 10-23-2024 RBC (Bld) [#/Vol] 3.88 10*6/uL Low 4.6-6.[address] [facility] Serum anion gap measurementO rdered By: Graham Tolbert on 10-23-2024 Anion gap [Moles/Vol] 5 mmol/L 5-15 [facility] Serum or plasma calcium micah urement (mass/volume)Ordered By: Graham Tolbert on 10-23-2024 Calcium [Mass/Vol] 9.3 mg/dL 8.5-10.1 [facility] Serum or plasma creatinine m easurement (mass/volume)Ordered By: Graham Tolbert on 10-23-2024 Creatinine [Mass/Vol] 0.78 mg/dL 0.70-1.30 [facility] Comment on above: The validity of the calculated GFR & GFRAA in patients over 70 years has not been determined. Clinical correlation is essential. Serum or plasma urea nitroge n measurement (mass/volume)Ordered By: Graham Tolbert on 10-23-2024 Urea nitrogen [Mass/Vol] 23 mg/dL High 7-18 [facility] Sodium levelOrdered By: Graham Tolbert on 10-23-2024 Sodium [Moles/Vol] 138 mmol/L 136-145 [facility] White blood cell (WBC) count Ordered By: Graham Tolbert on 10-23-2024 WBC (Bld) [#/Vol] 12.8 10*3/uL High 4.4-11.[address] [facility] Basic Metabolic Profile (BMP )on 10-22-2024 BUN/CRE 34.7 RATIO High 10-20 [facility] Comment on above: Performed By: #### L 500.2500, L100.0100 ####[facility] [address] [place], [address] CA,Total 8.8 mg/dL Normal 8.5-10.1 [facility] Comment on above: Performed By: #### L 500.2500, L100.0100 ####[facility] [address] [place], [address] Chloride [Moles/Vol] 110 mmol/L High 98-107 [facility] Comment on above: Performed By: #### L 500.2500, L100.0100 ####[facility] [address] [place], [address] CO2 [Moles/Vol] 25.0 mmol/L Normal 21.0-32.0 [facility] Comment on above: Performed By: #### L 500.2500, L100.0100 ####[facility] [address] [place], [address] Creatinine [Mass/Vol] 0.63 mg/dL Low 0.70-1.30 [facility] Comment on above: Result Comment: The validity of the calculated GFR GFRAA in patients over70 years has not been determined. Clinical correlation isessential. Performed By: #### L 500.2500, L100.0100 ####[facility] [address] [place], [address] ECRCL 111.55 ml/min Normal [facility] Comment on above: Performed By: #### L 500.2500, L100.0100 ####[facility] [address], [address] EST GFR - AA 173 mL/min Normal >60 [facility] Comment on above: Result Comment: Afri can Cameroonian GFR Calc Performed By: #### L 500.2500, L100.0100 ####[facility] [address] [place], [address] GAP 4 Low 5-15 [facility] Comment on above: Performed By: #### L 500.2500, L100.0100 ####[facility] [address] [place], [address] GFR/1.73 sq M.predicted among non-blacks MDRD (S/P/Bld) [Vol rate/Area] 143 mL/min/{1.73_m2} Normal >60 [facility] Comment on above: Result Comment: Non- GFR Calc Performed By: #### L 500.2500, L100.0100 ####[facility] [address] [place], [address] Glucose [Mass/Vol] 179 mg/dL High 74-106 [facility] Comment on above: Result Comment: Fast ing Glucose result greater than or equal to 126 mg/dLsuggests DIABETES MELLITUS per A.D.A. criteria. Performed By: #### L 500.2500, L100.0100 ####[facility] [address] [place], [address] Potassium [Moles/Vol] 4.2 mmol/L Normal 3.5-5.1 [facility] Comment on above: Performed By: #### L 500.2500, L100.0100 ####[facility] [address], [address] Sodium [Moles/Vol] 138 mmol/L Normal 136-145 [facility] Comment on above: Performed By: #### L 500.2500, L100.0100 ####[facility] [address] [place], [address] Urea nitrogen [Mass/Vol] 22 mg/dL High 7-18 [facility] Comment on above: Performed By: #### L 500.2500, L100.0100 ####[facility] [address] [place], [address] CBC W/Diff, Automatedon 10-03 Absolute Lymph 0.32 X10 3/uL Low 0.83-4.51 [facility] Comment on above: Performed By: #### L 500.2500, L100.0100 ####[facility] [address] [place], [address] Absolute Neut 4.9 X10 3/uL Normal 2.0-7.7 [facility] Comment on above: Performed By: #### L 500.2500, L100.0100 ####[facility] [address] [place], [address] Basophils/100 WBC (Bld) 0.2 % Normal 0-1 [facility] Comment on above: Performed By: #### L 500.2500, L100.0100 ####[facility] [address] [place], [address] Eosinophils/100 WBC (Bld) 0.0 % Normal 0-5 [facility] Comment on above: Performed By: #### L 500.2500, L100.0100 ####[facility] [address] [place], [address] Erythrocyte distribution width (RBC) [Ratio] 12.9 % Normal 11.6-14.6 [facility] Comment on above: Performed By: #### L 500.2500, L100.0100 ####[facility] [address] [place], [address] Hematocrit (Bld) [Volume fraction] 35.4 % Low 40-54 [facility] Comment on above: Performed By: #### L 500.2500, L100.0100 ####[facility] [address] [place], [address] Hemoglobin (Bld) [Mass/Vol] 11.9 g/dL Low 13.0-16.5 [facility] Comment on above: Performed By: #### L 500.2500, L100.0100 ####[facility] [address] [place], [address] IG% 0.400 Normal 0.0-0.9 [facility] Comment on above: Result Comment: IG% - Immature Granulocytes (promyelocytes, myelocytes andmetamyelocytes) > 1% indicates that a LEFT SHIFT is Present. Performed By: #### L 500.2500, L100.0100 ####[facility] [address] [place], [address] Lymphocytes/100 WBC (Bld) 6.1 % Low 19-41 [facility] Comment on above: Performed By: #### L 500.2500, L100.0100 ####[facility] [address] [place], [address] MCH (RBC) [Entitic mass] 32.1 pg High 27.0-32.0 [facility] Comment on above: Performed By: #### L 500.2500, L100.0100 ####[facility] [address] [place], [address] MCHC (RBC) [Mass/Vol] 33.6 g/dL Normal 32-36 [facility] Comment on above: Performed By: #### L 500.2500, L100.0100 ####[facility] [address] [place], [address] MCV (RBC) [Entitic vol] 95.4 fL High 80-94 [facility] Comment on above: Performed By: #### L 500.2500, L100.0100 ####[facility] [address] [place], [address] Monocytes/100 WBC (Bld) 1.0 % Normal 0-10 [facility] Comment on above: Performed By: #### L 500.2500, L100.0100 ####[facility] [address] [place], [address] Neutrophils/100 WBC (Bld) 92.3 % High 47-70 [facility] Comment on above: Performed By: #### L 500.2500, L100.0100 ####[facility] [address] [place], [address] Nucleated RBC (Bld) [#/Vol] 0 10*3/uL Normal 0-5 [facility] Comment on above: Performed By: #### L 500.2500, L100.0100 ####[facility] [address] [place], [address] Platelet mean volume (Bld) [Entitic vol] 9.5 fL Normal 6.2-12.0 [facility] Comment on above: Performed By: #### L 500.2500, L100.0100 ####[facility] [address] [place], [address] Platelets (Bld) [#/Vol] 264 10*3/uL Normal 150-450 [facility] Comment on above: Performed By: #### L 500.2500, L100.0100 ####[facility] [address] [place], [address] RBC (Bld) [#/Vol] 3.71 10*6/uL Low 4.6-6.[address] [facility] Comment on above: Performed By: #### L 500.2500, L100.0100 ####[facility] [address] [place], [address] RDW SD 44.8 fl High 35.1-43.9 [facility] Comment on above: Performed By: #### L 500.2500, L100.0100 ####[facility] [address] [place], [address] WBC (Bld) [#/Vol] 5.3 10*3/uL Normal 4.4-11.0 [facility] Comment on above: Performed By: #### L 500.2500, L100.0100 ####[facility] [address] [place], [address] Gram stainOrdered By: Graham mar on 10-22-2024 Microscopic observation Gram stain Nom (Unsp spec) [facility] L. pneumophila Ag Ql (U)Orde red By: Graham Tolbert on 10-22-2024 Legionella Antigen [facility] Legionella Antigen Urineon 0 10-22-2024 LEGU Normal [facility] Comment on above: Performed By: #### M 100.2400, M300.4600, M100.2000, M300.4500 ####[facility] [address] [place], [address] Microorganism identified Cx Nom (Unsp spec)Ordered By: Graham Tolbetr on 10-22-2024 Respiratory Culture or Staphylococcus aureus isolated. [facility] RESPIRATORY PANEL MOLECULARo n 10-22-2024 RP PANEL Normal [facility] Comment on above: Performed By: #### M 100.638 ####[facility] [address] [place], [address] Respiratory pathogens DNA an d RNA panel WES+probe (Resp)Ordered By: Troy Monroy on 10-22-2024 Respiratory Panel (PCR) [facility] Strep pneumoniae Antig(UR,CS F)on 10-22-2024 STPAG Normal [facility] Comment on above: Performed By: #### M 100.2400, M300.4600, M100.2000, M300.4500 ####[facility] [address] [place], [address] Streptococcus pneumoniae ant igen assayOrdered By: Graham Tolbert on 10-22-2024 Streptococcus pneumoniae Antigen (M [facility] 12 Lead EKGon 10-21-2024 12 Lead EKG Normal [facility] Arterial patency Wrist arter y --pre arterial punctureOrdered By: Julius Matthews on 10-21-2024 Connie Test Positive [facility] BNP (brain natriuretic pepti de measurement)Ordered By: Julius Matthews on 10-21-2024 Natriuretic peptide B (Bld) [Mass/Vol] 31.1 pg/mL 0-100 [facility] BNP,B-Type NATRIURETIC PEPTI Shashi 10-21-2024 Natriuretic peptide B (Bld) [Mass/Vol] 31.1 pg/mL Normal 0-100 [facility] Comment on above: Performed By: #### L 503.6620, L100.0100, L501.4020, L500.2500 ####[facility] [address] [place], [address] Base excess Calc (BldV) [Mol es/Vol]Ordered By: Julius Matthews on 10-21-2024 Blood Gas Base Excess 10 mmol/L High -2-2 [facility] Basic Metabolic Profile (BMP )on 10-21-2024 BUN/CRE 34.1 RATIO High - [facility] Comment on above: Order Comment: 'TROP ' Serial specimen #1, #2 or #3: 1 Performed By: #### L 503.6620, L100.0100, L501.4020, L500.2500 ####[facility] [address] [place], [address] CA,Total 9.3 mg/dL Normal 8.5-10.1 [facility] Comment on above: Order Comment: 'TROP ' Serial specimen #1, #2 or #3: 1 Performed By: #### L 503.6620, L100.0100, L501.4020, L500.2500 ####[facility] [address] [place], [address] Chloride [Moles/Vol] 101 mmol/L Normal 98-107 [facility] Comment on above: Order Comment: 'TROP ' Serial specimen #1, #2 or #3: 1 Performed By: #### L 503.6620, L100.0100, L501.4020, L500.2500 ####[facility] [address] [place], [address] CO2 [Moles/Vol] 37.0 mmol/L High 21.0-32.0 [facility] Comment on above: Order Comment: 'TROP ' Serial specimen #1, #2 or #3: 1 Performed By: #### L 503.6620, L100.0100, L501.4020, L500.2500 ####[facility] [address] [place], [address] Creatinine [Mass/Vol] 0.82 mg/dL Normal 0.70-1.30 [facility] Comment on above: Order Comment: 'TROP ' Serial specimen #1, #2 or #3: 1 Result Comment: The validity of the calculated GFR GFRAA in patients over70 years has not been determined. Clinical correlation isessential. Performed By: #### L 503.6620, L100.0100, L501.4020, L500.2500 ####[facility] [address] [place], [address] ECRCL 90.07 ml/min Normal [facility] Comment on above: Order Comment: 'TROP ' Serial specimen #1, #2 or #3: 1 Performed By: #### L 503.6620, L100.0100, L501.4020, L500.2500 ####[facility] [address] [place], [address] EST GFR - AA 128 mL/min Normal >60 [facility] Comment on above: Order Comment: 'TROP ' Serial specimen #1, #2 or #3: 1 Result Comment: Afri can Cameroonian GFR Calc Performed By: #### L 503.6620, L100.0100, L501.4020, L500.2500 ####[facility] [address] [place], [address] GAP 4 Low 5-15 [facility] Comment on above: Order Comment: 'TROP ' Serial specimen #1, #2 or #3: 1 Performed By: #### L 503.6620, L100.0100, L501.4020, L500.2500 ####[facility] [address] [place], [address] GFR/1.73 sq M.predicted among non-blacks MDRD (S/P/Bld) [Vol rate/Area] 106 mL/min/{1.73_m2} Normal >60 [facility] Comment on above: Order Comment: 'TROP ' Serial specimen #1, #2 or #3: 1 Result Comment: Non- GFR Calc Performed By: #### L 503.6620, L100.0100, L501.4020, L500.2500 ####[facility] [address] [place], [address] Glucose [Mass/Vol] 146 mg/dL High 74-106 [facility] Comment on above: Order Comment: 'TROP ' Serial specimen #1, #2 or #3: 1 Result Comment: Fast ing Glucose result greater than or equal to 126 mg/dLsuggests DIABETES MELLITUS per A.D.A. criteria. Performed By: #### L 503.6620, L100.0100, L501.4020, L500.2500 ####[facility] [address] [place], [address] Potassium [Moles/Vol] 3.5 mmol/L Normal 3.5-5.1 [facility] Comment on above: Order Comment: 'TROP ' Serial specimen #1, #2 or #3: 1 Performed By: #### L 503.6620, L100.0100, L501.4020, L500.2500 ####[facility] [address] [place], [address] Sodium [Moles/Vol] 142 mmol/L Normal 136-145 [facility] Comment on above: Order Comment: 'TROP ' Serial specimen #1, #2 or #3: 1 Performed By: #### L 503.6620, L100.0100, L501.4020, L500.2500 ####[facility] [address] [place], [address] Urea nitrogen [Mass/Vol] 28 mg/dL High 7-18 [facility] Comment on above: Order Comment: 'TROP ' Serial specimen #1, #2 or #3: 1 Performed By: #### L 503.6620, L100.0100, L501.4020, L500.2500 ####[facility] [address] [place], [address] Blood Gases by [facility] 025 CONNIE TEST Positive Normal [facility] Comment on above: Performed By: #### L 9000.0800 ####[facility] [address] [place], [address] Base excess Calc (Bld) [Moles/Vol] 10 mmol/L High -2 to +2 [facility] Comment on above: Performed By: #### L 9000.0800 ####[facility] [address] [place], [address] Blood Gas Type ART Normal [facility] Comment on above: Performed By: #### L 9000.0800 ####[facility] [address] [place], [address] CO2 [Moles/Vol] 38 mmol/L Normal [facility] Comment on above: Performed By: #### L 9000.0800 ####[facility] [address] [place], [address] FI02 60.0 Normal [facility] Comment on above: Performed By: #### L 9000.0800 ####[facility] [address] [place], [address] HCO3 (Bld) [Moles/Vol] 35.7 mmol/L High 22-26 [facility] Comment on above: Performed By: #### L 9000.0800 ####[facility] [address] [place], [address] Mode Not entered Normal [facility] Comment on above: Performed By: #### L 9000.0800 ####[facility] [address] [place], [address] O2 Delivery Dev BiPAP Normal [facility] Comment on above: Performed By: #### L 9000.0800 ####[facility] [address] [place], [address] pCO2 66.3 mmHg High 35-45 [facility] Comment on above: Performed By: #### L 9000.0800 ####[facility] [address] [place], [address] PEEP 6 Normal [facility] Comment on above: Performed By: #### L 9000.0800 ####[facility] [address] [place], [address] pH (Bld) 7.34 [pH] Low 7.35-7.45 [facility] Comment on above: Performed By: #### L 9000.0800 ####[facility] [address] [place], [address] PO2 343 mmHG Invalid Interpretation Code 75-100 [facility] Comment on above: Performed By: #### L 9000.0800 ####[facility] [address] [place], [address] Read Back By Yes Normal [facility] Comment on above: Performed By: #### L 9000.0800 ####[facility] [address] [place], [address] Results To CASSIE Normal [facility] Comment on above: Performed By: #### L 9000.0800 ####[facility] [address] [place], [address] RR 12 Normal [facility] Comment on above: Performed By: #### L 9000.0800 ####[facility] [address] [place], [address] SITE L Brach Normal [facility] Comment on above: Performed By: #### L 9000.0800 ####[facility] [address] [place], [address] SO2 100 High 95-99 [facility] Comment on above: Performed By: #### L 9000.0800 ####[facility] [address] [place], [address] Time Given 16:29:44 [facility] Comment on above: Performed By: #### L 9000.0800 ####[facility] [address] [place], [address] Blood bicarbonate measuremen tOrdered By: Julius Matthews on 10-21-2024 Blood Gas Bicarbonate Actual 35.7 mmol/L High 22-26 [facility] CBC W/Diff, Automatedon 10-03 Absolute Lymph 2.02 X10 3/uL Normal 0.83-4.51 [facility] Comment on above: Performed By: #### L 503.6620, L100.0100, L501.4020, L500.2500 ####[facility] [address] [place], [address] Absolute Neut 6.3 X10 3/uL Normal 2.0-7.7 [facility] Comment on above: Performed By: #### L 503.6620, L100.0100, L501.4020, L500.2500 ####[facility] [address] [place], [address] Basophils/100 WBC (Bld) 0.7 % Normal 0-1 [facility] Comment on above: Performed By: #### L 503.6620, L100.0100, L501.4020, L500.2500 ####[facility] [address] [place], [address] Eosinophils/100 WBC (Bld) 7.3 % High 0-5 [facility] Comment on above: Performed By: #### L 503.6620, L100.0100, L501.4020, L500.2500 ####[facility] [address] [place], [address] Erythrocyte distribution width (RBC) [Ratio] 12.6 % Normal 11.6-14.6 [facility] Comment on above: Performed By: #### L 503.6620, L100.0100, L501.4020, L500.2500 ####[facility] [address] [place], [address] Hematocrit (Bld) [Volume fraction] 41.5 % Normal 40-54 [facility] Comment on above: Performed By: #### L 503.6620, L100.0100, L501.4020, L500.2500 ####[facility] [address] [place], [address] Hemoglobin (Bld) [Mass/Vol] 13.8 g/dL Normal 13.0-16.5 [facility] Comment on above: Performed By: #### L 503.6620, L100.0100, L501.4020, L500.2500 ####[facility] [address] [place], [address] IG% 0.200 Normal 0.0-0.9 [facility] Comment on above: Result Comment: IG% - Immature Granulocytes (promyelocytes, myelocytes andmetamyelocytes) > 1% indicates that a LEFT SHIFT is Present. Performed By: #### L 503.6620, L100.0100, L501.4020, L500.2500 ####[facility] [address] [place], [address] Lymphocytes/100 WBC (Bld) 20.6 % Normal 19-41 [facility] Comment on above: Performed By: #### L 503.6620, L100.0100, L501.4020, L500.2500 ####[facility] [address] [place], [address] MCH (RBC) [Entitic mass] 31.7 pg Normal 27.0-32.0 [facility] Comment on above: Performed By: #### L 503.6620, L100.0100, L501.4020, L500.2500 ####[facility] [address] [place], [address] MCHC (RBC) [Mass/Vol] 33.3 g/dL Normal 32-36 [facility] Comment on above: Performed By: #### L 503.6620, L100.0100, L501.4020, L500.2500 ####[facility] [address] [place], [address] MCV (RBC) [Entitic vol] 95.4 fL High 80-94 [facility] Comment on above: Performed By: #### L 503.6620, L100.0100, L501.4020, L500.2500 ####[facility] [address] [place], [address] Monocytes/100 WBC (Bld) 6.9 % Normal 0-10 [facility] Comment on above: Performed By: #### L 503.6620, L100.0100, L501.4020, L500.2500 ####[facility] [address] [place], [address] Neutrophils/100 WBC (Bld) 64.3 % Normal 47-70 [facility] Comment on above: Performed By: #### L 503.6620, L100.0100, L501.4020, L500.2500 ####[facility] [address] [place], [address] Nucleated RBC (Bld) [#/Vol] 0 10*3/uL Normal 0-5 [facility] Comment on above: Performed By: #### L 503.6620, L100.0100, L501.4020, L500.2500 ####[facility] [address] [place], [address] Platelet mean volume (Bld) [Entitic vol] 9.3 fL Normal 6.2-12.0 [facility] Comment on above: Performed By: #### L 503.6620, L100.0100, L501.4020, L500.2500 ####[facility] [address] [place], [address] Platelets (Bld) [#/Vol] 362 10*3/uL Normal 150-450 [facility] Comment on above: Performed By: #### L 503.6620, L100.0100, L501.4020, L500.2500 ####[facility] [address] [place], [address] RBC (Bld) [#/Vol] 4.35 10*6/uL Low 4.6-6.[address] [facility] Comment on above: Performed By: #### L 503.6620, L100.0100, L501.4020, L500.2500 ####[facility] [address] [place], [address] RDW SD 44.6 fl High 35.1-43.9 [facility] Comment on above: Performed By: #### L 503.6620, L100.0100, L501.4020, L500.2500 ####[facility] [address] [place], [address] WBC (Bld) [#/Vol] 9.8 10*3/uL Normal 4.4-11.0 [facility] Comment on above: Performed By: #### L 503.6620, L100.0100, L501.4020, L500.2500 ####[facility] [address] [place], [address] CTA Chest W/WO Contraston CTA Chest W/WO Contrast Normal [facility] Chest 1 View (Portable)on Chest 1 View (Portable) Normal [facility] D-Dimer Quantitative (DVT/PE )on 10-21-2024 D-DIMER QUANT 1.14 FEU/ug/m Invalid Interpretation Code 0.27-0.49 [facility] Comment on above: Result Comment: D-Di edouard ELEVATED (>0.49): Additional studies and clinicalassessments are indicated to conclude diagnosis of:Deep Vein Thrombosis (DVT) or Pulmonary Embolism (PE)RESULTS CALLED TO ALEJANDRO 10/21/24 1651 Galina Dias.REPORT READ BACK BY . SAME Performed By: #### L 300.8000 ####[facility] [address] [place], [address] D-dimer measurement for deep venous thrombosisOrdered By: Julius Matthews on 10-21-2024 D-Dimer Quantitative (PE/DVT) 1.14 FEU/ug/m High 0.27-0.49 [facility] Comment on above: D-Dimer ELEVATED (>0 .49): Additional studies and clinicalassessments are indicated to conclude diagnosis of:Deep Vein Thrombosis (DVT) or Pulmonary Embolism (PE)RESULTS CALLED TO ALEJANDRO 10/21/24 1651 Galina Dias.REPORT READ BACK BY . SAME Determination of fraction of inspired oxygenOrdered By: Julius Matthews on 10-21-2024 Blood Gas Oxygen Percent 60.0 [facility] Emergency Department Summary on 10-21-2024 Emergency Department Summary Normal [facility] Influenza virus A and B and SARS-CoV-2 (COVID-19) and Respiratory syncytial virus RNAOrdered By: Julius Matthews on 10-21-2024 SARS-CoV-2 (COVID-19) RNA WES+probe Ql (Unsp spec) [facility] L501.4020on 10-21-2024 TROPONIN-I HS 8 pg/mL Normal 3.0-78.0 [facility] Comment on above: Order Comment: 'TROP ' Serial specimen #1, #2 or #3: 1 Result Comment: Plea se Note: New Test Units and Gender Specific Reference Ranges. For more information see Policy Stat Procedure [place] High Sensitivity Troponin (TNIH) and attachments. Performed By: #### L 503.6620, L100.0100, L501.4020, L500.2500 ####[facility] [address] [place], [address] M100.678on 10-21-2024 M100.678 Pending SARS-CoV-2 (COVID 19) Negative INFLUENZA A Negative INFLUENZA B Negative RSV PCR Negative Normal [facility] Comment on above: Performed By: #### M 100.678 ####[facility] [address] [place], [address] No Panel InformationOrdered By: Julius Matthews on 10-21-2024 Bedside Blood Gas PEEP 6 [facility] Bld Gas Crit Called To/Read Back By Yes [facility] Blood Gas Notified Time 16:29:44 [facility] Blood Gas Notified Whom CASSIE [facility] Blood Gas Respiration Rate 12 [facility] Blood Gas Sample Site L Brach [facility] Blood Gas Specimen Type ART [facility] Blood Gas Vent Mode Not entered [facility] O[facility] Oxygen saturation measuremen tOrdered By: Julius Matthews on 10-21-2024 Blood Gas Oxygen Saturation 100 % High 95-99 [facility] Partial pressure of carbon d ioxide measurementOrdered By: Julius Matthews on 10-21-2024 Arterial Blood Partial Pressure CO2 66.3 mmHg High 35-45 [facility] Partial pressure of oxygen m easurementOrdered By: Julius Matthews on 10-21-2024 Arterial Blood Partial Pressure O2 343 mmHG High 75-100 [facility] Total carbon dioxide measure mentOrdered By: Julius Matthews on 10-21-2024 Blood Gas Total CO2 38 mmol/L [facility] Troponin IOrdered By: Julius Matthews on 10-21-2024 Troponin I High Sensitivity 8 pg/mL 3.0-78.0 [facility] Comment on above: Please Note: New Rubi t Units and Gender Specific Reference Ranges. For more information see Policy Stat Procedure [place] High Sensitivity Troponin (TNIH) and attachments. pH (Unsp spec)Ordered By: Benitez Matthews on 10-21-2024 Blood Gas pH 7.34 Low 7.35-7.45 [facility] 12 Lead EKGon 09-19-2024 12 Lead EKG Normal [facility] Absolute neutrophil countOrd ered By: Troy Monsalve on 09-19-2024 Neutrophils (Bld) [#/Vol] 6.3 10*3/uL 2.0-7.7 [facility] Basic Metabolic Profile (BMP )on 09-19-2024 BUN/CRE 24.0 RATIO High 07-21 [facility] Comment on above: Performed By: #### L 100.0100, L500.2500 ####[facility] [address] [place], [address] CA,Total 9.2 mg/dL Normal 8.5-10.1 [facility] Comment on above: Performed By: #### L 100.0100, L500.2500 ####[facility] [address] [place], [address] Chloride [Moles/Vol] 103 mmol/L Normal 98-107 [facility] Comment on above: Performed By: #### L 100.0100, L500.2500 ####[facility] [address] [place], [address] CO2 [Moles/Vol] 31.0 mmol/L Normal 21.0-32.0 [facility] Comment on above: Performed By: #### L 100.0100, L500.2500 ####[facility] [address] [place], [address] Creatinine [Mass/Vol] 0.75 mg/dL Normal 0.70-1.30 [facility] Comment on above: Result Comment: The validity of the calculated GFR GFRAA in patients over70 years has not been determined. Clinical correlation isessential. Performed By: #### L 100.0100, L500.2500 ####[facility] [address] [place], [address] ECRCL 112.61 ml/min Normal [facility] Comment on above: Performed By: #### L 100.0100, L500.2500 ####[facility] [address] [place], [address] EST GFR - AA 142 mL/min Normal >60 [facility] Comment on above: Result Comment: Afri can Cameroonian GFR Calc Performed By: #### L 100.0100, L500.2500 ####[facility] [address] [place], [address] GAP 3 Low 5-15 [facility] Comment on above: Performed By: #### L 100.0100, L500.2500 ####[facility] [address] [place], [address] GFR/1.73 sq M.predicted among non-blacks MDRD (S/P/Bld) [Vol rate/Area] 118 mL/min/{1.73_m2} Normal >60 [facility] Comment on above: Result Comment: Non- GFR Calc Performed By: #### L 100.0100, L500.2500 ####[facility] [address] [place], [address] Glucose [Mass/Vol] 101 mg/dL Normal 74-106 [facility] Comment on above: Result Comment: Fast ing Glucose result from 100 to 125 mg/dLsuggests IMPAIRED HOMEOSTASIS per A.D.A. criteria. Performed By: #### L 100.0100, L500.2500 ####[facility] [address] [place], [address] Potassium [Moles/Vol] 4.1 mmol/L Normal 3.5-5.1 [facility] Comment on above: Performed By: #### L 100.0100, L500.2500 ####[facility] [address] [place], [address] Sodium [Moles/Vol] 137 mmol/L Normal 136-145 [facility] Comment on above: Performed By: #### L 100.0100, L500.2500 ####[facility] [address] [place], [address] Urea nitrogen [Mass/Vol] 18 mg/dL Normal 7-18 [facility] Comment on above: Performed By: #### L 100.0100, L500.2500 ####[facility] [address] [place], [address] Basophil percentageOrdered B y: Troy Monsalve on 09-19-2024 Basophils/100 WBC (Bld) 1.0 % 0-1 [facility] Blood urea nitrogen (BUN)/cr eatinine ratioOrdered By: Troy Monsalve on 09-19-2024 Urea nitrogen/Creatinine [Mass ratio] 24.0 mg/mg High 10-20 [facility] CBC W/Diff, Automatedon 09-01 Absolute Lymph 1.48 X10 3/uL Normal 0.83-4.51 [facility] Comment on above: Performed By: #### L 100.0100, L500.2500 ####[facility] [address] [place], [address] Absolute Neut 6.3 X10 3/uL Normal 2.0-7.7 [facility] Comment on above: Performed By: #### L 100.0100, L500.2500 ####[facility] [address] [place], [address] Basophils/100 WBC (Bld) 1.0 % Normal 0-1 [facility] Comment on above: Performed By: #### L 100.0100, L500.2500 ####[facility] [address] [place], [address] Eosinophils/100 WBC (Bld) 7.1 % High 0-5 [facility] Comment on above: Performed By: #### L 100.0100, L500.2500 ####[facility] [address] [place], [address] Erythrocyte distribution width (RBC) [Ratio] 12.6 % Normal 11.6-14.6 [facility] Comment on above: Performed By: #### L 100.0100, L500.2500 ####[facility] [address] [place], [address] Hematocrit (Bld) [Volume fraction] 43.7 % Normal 40-54 [facility] Comment on above: Performed By: #### L 100.0100, L500.2500 ####[facility] [address] [place], [address] Hemoglobin (Bld) [Mass/Vol] 14.5 g/dL Normal 13.0-16.5 [facility] Comment on above: Performed By: #### L 100.0100, L500.2500 ####[facility] [address] [place], [address] IG% 0.300 Normal 0.0-0.9 [facility] Comment on above: Result Comment: IG% - Immature Granulocytes (promyelocytes, myelocytes andmetamyelocytes) > 1% indicates that a LEFT SHIFT is Present. Performed By: #### L 100.0100, L500.2500 ####[facility] [address] [place], [address] Lymphocytes/100 WBC (Bld) 16.2 % Low 19-41 [facility] Comment on above: Performed By: #### L 100.0100, L500.2500 ####[facility] [address] [place], [address] MCH (RBC) [Entitic mass] 31.4 pg Normal 27.0-32.0 [facility] Comment on above: Performed By: #### L 100.0100, L500.2500 ####[facility] [address] [place], [address] MCHC (RBC) [Mass/Vol] 33.2 g/dL Normal 32-36 [facility] Comment on above: Performed By: #### L 100.0100, L500.2500 ####[facility] [address] [place], [address] MCV (RBC) [Entitic vol] 94.6 fL High 80-94 [facility] Comment on above: Performed By: #### L 100.0100, L500.2500 ####[facility] [address] [place], [address] Monocytes/100 WBC (Bld) 6.6 % Normal 0-10 [facility] Comment on above: Performed By: #### L 100.0100, L500.2500 ####[facility] [address] [place], [address] Neutrophils/100 WBC (Bld) 68.8 % Normal 47-70 [facility] Comment on above: Performed By: #### L 100.0100, L500.2500 ####[facility] [address] [place], [address] Nucleated RBC (Bld) [#/Vol] 0 10*3/uL Normal 0-5 [facility] Comment on above: Performed By: #### L 100.0100, L500.2500 ####[facility] [address] [place], [address] Platelet mean volume (Bld) [Entitic vol] 9.4 fL Normal 6.2-12.0 [facility] Comment on above: Performed By: #### L 100.0100, L500.2500 ####[facility] [address] [place], [address] Platelets (Bld) [#/Vol] 302 10*3/uL Normal 150-450 [facility] Comment on above: Performed By: #### L 100.0100, L500.2500 ####[facility] [address] [place], [address] RBC (Bld) [#/Vol] 4.62 10*6/uL Normal 4.6-6.[address] [facility] Comment on above: Performed By: #### L 100.0100, L500.2500 ####[facility] [address] [place], [address] RDW SD 43.4 fl Normal 35.1-43.9 [facility] Comment on above: Performed By: #### L 100.0100, L500.2500 ####[facility] [address] [place], [address] WBC (Bld) [#/Vol] 9.1 10*3/uL Normal 4.4-11.0 [facility] Comment on above: Performed By: #### L 100.0100, L500.2500 ####[facility] [address] [place], [address] Carbon dioxide measurementOr dered By: Troy Monsalve on 09-19-2024 CO2 [Moles/Vol] 31.0 mmol/L 21.0-32.0 [facility] Chest PA and Lateralon 09-19 Chest PA and Lateral Normal [facility] Chloride measurementOrdered By: Troy Monsalve on 09-19-2024 Chloride [Moles/Vol] 103 mmol/L 98-107 [facility] Emergency Department Summary on 09-19-2024 Emergency Department Summary Normal [facility] Eosinophil percentageOrdered By: Troy Monsalve on 09-19-2024 Eosinophils/100 WBC (Bld) 7.1 % High 0-5 [facility] Erythrocyte distribution wid th ratioOrdered By: Troy Monsalve on 09-19-2024 Erythrocyte distribution width (RBC) [Ratio] 12.6 % 11.6-14.6 [facility] Erythrocyte distribution wid th standard deviationOrdered By: Troy Monsalve on 09-19-2024 Erythrocyte distribution width (RBC) [Entitic vol] 43.4 fL 35.1-43.9 [facility] Estimated glomerular filtrat ion rate (GFR) AmericanOrdered By: Troy Monsalve on 09-19-2024 Estimated GFR (MDRD) Amer 142 mL/min >60 [facility] Comment on above: GFR Calc Estimation of creatinine akbar aranceOrdered By: Troy Monsalve on 09-19-2024 Estimated Creatinine Clearance Calc 112.61 ml/min [facility] Glomerular filtration rate ( GFR) estimationOrdered By: Troy Monsalve on 09-19-2024 Estimated GFR (MDRD) Non-Af Amer 118 mL/min >60 [facility] Comment on above: Non- GFR Calc Glucose measurementOrdered B y: Troy Monsalve on 09-19-2024 Glucose [Mass/Vol] 101 mg/dL 74-106 [facility] Comment on above: Fasting Glucose resu lt from 100 to 125 mg/dL suggests IMPAIRED HOMEOSTASIS per A.D.A. criteria. Hematocrit Auto (Bld) [Volum e fraction]Ordered By: Troy Monsalve on 09-19-2024 Hematocrit (Bld) [Volume fraction] 43.7 % 40-54 [facility] Hemoglobin measurementOrdere d By: Troy Monsalve on 09-19-2024 Hemoglobin (Bld) [Mass/Vol] 14.5 g/dL 13.0-16.5 [facility] Immature granulocytes/100 WB C Auto (Bld)Ordered By: Troy Monsalve on 09-19-2024 Immature granulocytes/100 WBC (Bld) 0.300 % 0.0-0.9 [facility] Comment on above: IG% - Immature Granu locytes (promyelocytes, myelocytes and metamyelocytes) > 1% indicates that a LEFT SHIFT is Present. Lymphocytes Auto (Unsp spec) [#/Vol]Ordered By: Troy Monsalve on 09-19-2024 Lymphocytes (Bld) [#/Vol] 1.48 10*3/uL 0.83-4.51 [facility] Lymphocytes/100 WBC Auto (Un sp spec)Ordered By: Troy Monsalve on 09-19-2024 Lymphocytes/100 WBC (Bld) 16.2 % Low 19-41 [facility] MCV (mean corpuscular volume ) determinationOrdered By: Troy Monsalve on 09-19-2024 MCV (RBC) [Entitic vol] 94.6 fL High 80-94 [facility] Mean corpuscular hemoglobin (MCH) determinationOrdered By: Troy Monsalve on 09-19-2024 MCH (RBC) [Entitic mass] 31.4 pg 27.0-32.0 [facility] Mean corpuscular hemoglobin concentration (MCHC) determinationOrdered By: Troy Monsalve on 09-19-2024 MCHC (RBC) [Mass/Vol] 33.2 g/dL 32-36 [facility] Mean platelet volume determi nationOrdered By: Troy Monsalve on 09-19-2024 Platelet mean volume (Bld) [Entitic vol] 9.4 fL 6.2-12.0 [facility] Monocyte percentageOrdered B y: Troy Monsalve on 09-19-2024 Monocytes/100 WBC (Bld) 6.6 % 0-10 [facility] Neutrophil percentageOrdered By: Troy Monsalve on 09-19-2024 Neutrophils/100 WBC (Bld) 68.8 % 47-70 [facility] Nucleated red blood cell per centageOrdered By: Troy Monsalve on 09-19-2024 Nucleated RBC/100 WBC (Bld) [Ratio] 0 % 0-5 [facility] Platelet countOrdered By: Malia Monsalve on 09-19-2024 Platelets (Bld) [#/Vol] 302 10*3/uL 150-450 [facility] Potassium measurementOrdered By: Troy Monsalve on 09-19-2024 Potassium [Moles/Vol] 4.1 mmol/L 3.5-5.1 [facility] RBC Auto (Bld) [#/Vol]Ordere d By: Troy Monsalve on 09-19-2024 RBC (Bld) [#/Vol] 4.62 10*6/uL 4.6-6.[address] [facility] Serum anion gap measurementO rdered By: Troy Monsalve on 09-19-2024 Anion gap [Moles/Vol] 3 mmol/L Low 5-15 [facility] Serum or plasma calcium micah urement (mass/volume)Ordered By: Troy Monsalve on 09-19-2024 Calcium [Mass/Vol] 9.2 mg/dL 8.5-10.1 [facility] Serum or plasma creatinine m easurement (mass/volume)Ordered By: Troy Monsalve on 09-19-2024 Creatinine [Mass/Vol] 0.75 mg/dL 0.70-1.30 [facility] Comment on above: The validity of the calculated GFR & GFRAA in patients over 70 years has not been determined. Clinical correlation is essential. Serum or plasma urea nitroge n measurement (mass/volume)Ordered By: Troy Monsalve on 09-19-2024 Urea nitrogen [Mass/Vol] 18 mg/dL 7-18 [facility] Sodium levelOrdered By: Troy Monsalve on 09-19-2024 Sodium [Moles/Vol] 137 mmol/L 136-145 [facility] White blood cell (WBC) count Ordered By: Troy Monsalve on 09-19-2024 WBC (Bld) [#/Vol] 9.1 10*3/uL 4.4-11.0 [facility] 12 Lead EKGon 09-07-2024 12 Lead EKG Normal [facility] Absolute neutrophil countOrd ered By: Julius Matthews on 09-07-2024 Neutrophils (Bld) [#/Vol] 3.2 10*3/uL 2.0-7.7 [facility] Basic Metabolic Profile (BMP )on 09-07-2024 BUN/CRE 21.6 RATIO High 10-20 [facility] Comment on above: Order Comment: 'TROP ' Serial specimen #1, #2 or #3: 1 Performed By: #### L 500.2500, L501.4020, L100.0100 ####[facility] [address] [place], [address] CA,Total 9.1 mg/dL Normal 8.5-10.1 [facility] Comment on above: Order Comment: 'TROP ' Serial specimen #1, #2 or #3: 1 Performed By: #### L 500.2500, L501.4020, L100.0100 ####[facility] [address] [place], [address] Chloride [Moles/Vol] 109 mmol/L High 98-107 [facility] Comment on above: Order Comment: 'TROP ' Serial specimen #1, #2 or #3: 1 Performed By: #### L 500.2500, L501.4020, L100.0100 ####[facility] [address] [place], [address] CO2 [Moles/Vol] 28.0 mmol/L Normal 21.0-32.0 [facility] Comment on above: Order Comment: 'TROP ' Serial specimen #1, #2 or #3: 1 Performed By: #### L 500.2500, L501.4020, L100.0100 ####[facility] [address] [place], [address] Creatinine [Mass/Vol] 0.83 mg/dL Normal 0.70-1.30 [facility] Comment on above: Order Comment: 'TROP ' Serial specimen #1, #2 or #3: 1 Result Comment: The validity of the calculated GFR GFRAA in patients over70 years has not been determined. Clinical correlation isessential. Performed By: #### L 500.2500, L501.4020, L100.0100 ####[facility] [address] [place], [address] ECRCL 91.48 ml/min Normal [facility] Comment on above: Order Comment: 'TROP ' Serial specimen #1, #2 or #3: 1 Performed By: #### L 500.2500, L501.4020, L100.0100 ####[facility] [address] [place], [address] EST GFR - AA 126 mL/min Normal >60 [facility] Comment on above: Order Comment: 'TROP ' Serial specimen #1, #2 or #3: 1 Result Comment: Afri can Cameroonian GFR Calc Performed By: #### L 500.2500, L501.4020, L100.0100 ####[facility] [address] [place], [address] GAP 4 Low 5-15 [facility] Comment on above: Order Comment: 'TROP ' Serial specimen #1, #2 or #3: 1 Performed By: #### L 500.2500, L501.4020, L100.0100 ####[facility] [address] [place], [address] GFR/1.73 sq M.predicted among non-blacks MDRD (S/P/Bld) [Vol rate/Area] 105 mL/min/{1.73_m2} Normal >60 [facility] Comment on above: Order Comment: 'TROP ' Serial specimen #1, #2 or #3: 1 Result Comment: Non- GFR Calc Performed By: #### L 500.2500, L501.4020, L100.0100 ####[facility] [address] [place], [address] Glucose [Mass/Vol] 105 mg/dL Normal 74-106 [facility] Comment on above: Order Comment: 'TROP ' Serial specimen #1, #2 or #3: 1 Result Comment: Fast ing Glucose result from 100 to 125 mg/dLsuggests IMPAIRED HOMEOSTASIS per A.D.A. criteria. Performed By: #### L 500.2500, L501.4020, L100.0100 ####[facility] [address] [place], [address] Potassium [Moles/Vol] 3.8 mmol/L Normal 3.5-5.1 [facility] Comment on above: Order Comment: 'TROP ' Serial specimen #1, #2 or #3: 1 Performed By: #### L 500.2500, L501.4020, L100.0100 ####[facility] [address] [place], [address] Sodium [Moles/Vol] 142 mmol/L Normal 136-145 [facility] Comment on above: Order Comment: 'TROP ' Serial specimen #1, #2 or #3: 1 Performed By: #### L 500.2500, L501.4020, L100.0100 ####[facility] [address] [place], [address] Urea nitrogen [Mass/Vol] 18 mg/dL Normal 7-18 [facility] Comment on above: Order Comment: 'TROP ' Serial specimen #1, #2 or #3: 1 Performed By: #### L 500.2500, L501.4020, L100.0100 ####[facility] [address] [place], [address] Basophil percentageOrdered B y: Julius Matthews on 09-07-2024 Basophils/100 WBC (Bld) 0.9 % 0-1 [facility] Blood urea nitrogen (BUN)/cr eatinine ratioOrdered By: Julius Matthews on 09-07-2024 Urea nitrogen/Creatinine [Mass ratio] 21.6 mg/mg High 10-20 [facility] CBC W/Diff, Automatedon 12-0 7-4 Absolute Lymph 1.14 X10 3/uL Normal 0.83-4.51 [facility] Comment on above: Performed By: #### L 500.2500, L501.4020, L100.0100 ####[facility] [address] [place], [address] Absolute Neut 3.2 X10 3/uL Normal 2.0-7.7 [facility] Comment on above: Performed By: #### L 500.2500, L501.4020, L100.0100 ####[facility] [address] [place], [address] Basophils/100 WBC (Bld) 0.9 % Normal 0-1 [facility] Comment on above: Performed By: #### L 500.2500, L501.4020, L100.0100 ####[facility] [address] [place], [address] Eosinophils/100 WBC (Bld) 11.8 % High 0-5 [facility] Comment on above: Performed By: #### L 500.2500, L501.4020, L100.0100 ####[facility] [address] [place], [address] Erythrocyte distribution width (RBC) [Ratio] 12.5 % Normal 11.6-14.6 [facility] Comment on above: Performed By: #### L 500.2500, L501.4020, L100.0100 ####[facility] [address] [place], [address] Hematocrit (Bld) [Volume fraction] 41.1 % Normal 40-54 [facility] Comment on above: Performed By: #### L 500.2500, L501.4020, L100.0100 ####[facility] [address] [place], [address] Hemoglobin (Bld) [Mass/Vol] 13.8 g/dL Normal 13.0-16.5 [facility] Comment on above: Performed By: #### L 500.2500, L501.4020, L100.0100 ####[facility] [address] [place], [address] IG% 0.400 Normal 0.0-0.9 [facility] Comment on above: Result Comment: IG% - Immature Granulocytes (promyelocytes, myelocytes andmetamyelocytes) > 1% indicates that a LEFT SHIFT is Present. Performed By: #### L 500.2500, L501.4020, L100.0100 ####[facility] [address] [place], [address] Lymphocytes/100 WBC (Bld) 21.1 % Normal 19-41 [facility] Comment on above: Performed By: #### L 500.2500, L501.4020, L100.0100 ####[facility] [address] [place], [address] MCH (RBC) [Entitic mass] 31.8 pg Normal 27.0-32.0 [facility] Comment on above: Performed By: #### L 500.2500, L501.4020, L100.0100 ####[facility] [address] [place], [address] MCHC (RBC) [Mass/Vol] 33.6 g/dL Normal 32-36 [facility] Comment on above: Performed By: #### L 500.2500, L501.4020, L100.0100 ####[facility] [address] [place], [address] MCV (RBC) [Entitic vol] 94.7 fL High 80-94 [facility] Comment on above: Performed By: #### L 500.2500, L501.4020, L100.0100 ####[facility] [address] [place], [address] Monocytes/100 WBC (Bld) 7.4 % Normal 0-10 [facility] Comment on above: Performed By: #### L 500.2500, L501.4020, L100.0100 ####[facility] [address] [place], [address] Neutrophils/100 WBC (Bld) 58.4 % Normal 47-70 [facility] Comment on above: Performed By: #### L 500.2500, L501.4020, L100.0100 ####[facility] [address] [place], [address] Nucleated RBC (Bld) [#/Vol] 0 10*3/uL Normal 0-5 [facility] Comment on above: Performed By: #### L 500.2500, L501.4020, L100.0100 ####[facility] [address] [place], [address] Platelet mean volume (Bld) [Entitic vol] 9.3 fL Normal 6.2-12.0 [facility] Comment on above: Performed By: #### L 500.2500, L501.4020, L100.0100 ####[facility] [address] [place], [address] Platelets (Bld) [#/Vol] 327 10*3/uL Normal 150-450 [facility] Comment on above: Performed By: #### L 500.2500, L501.4020, L100.0100 ####[facility] [address] [place], [address] RBC (Bld) [#/Vol] 4.34 10*6/uL Low 4.6-6.[address] [facility] Comment on above: Performed By: #### L 500.2500, L501.4020, L100.0100 ####[facility] [address] [place], [address] RDW SD 43.4 fl Normal 35.1-43.9 [facility] Comment on above: Performed By: #### L 500.2500, L501.4020, L100.0100 ####[facility] [address] [place], [address] WBC (Bld) [#/Vol] 5.4 10*3/uL Normal 4.4-11.0 [facility] Comment on above: Performed By: #### L 500.2500, L501.4020, L100.0100 ####[facility] [address] [place], [address] Carbon dioxide measurementOr dered By: Julius Matthews on 09-07-2024 CO2 [Moles/Vol] 28.0 mmol/L 21.0-32.0 [facility] Chest 1 View (Portable)on Chest 1 View (Portable) Normal [facility] Chloride measurementOrdered By: Julius Matthews on 09-07-2024 Chloride [Moles/Vol] 109 mmol/L High 98-107 [facility] Emergency Department Summary on 09-07-2024 Emergency Department Summary Normal [facility] Eosinophil percentageOrdered By: Julius Matthews on 09-07-2024 Eosinophils/100 WBC (Bld) 11.8 % High 0-5 [facility] Erythrocyte distribution wid th ratioOrdered By: Julius Matthews on 09-07-2024 Erythrocyte distribution width (RBC) [Ratio] 12.5 % 11.6-14.6 [facility] Erythrocyte distribution wid th standard deviationOrdered By: Julius Matthews on 09-07-2024 Erythrocyte distribution width (RBC) [Entitic vol] 43.4 fL 35.1-43.9 [facility] Estimated glomerular filtrat ion rate (GFR) AmericanOrdered By: Julius Matthews on 09-07-2024 Estimated GFR (MDRD) Amer 126 mL/min >60 [facility] Comment on above: GFR Calc Estimation of creatinine akbar aranceOrdered By: Julius Matthews on 09-07-2024 Estimated Creatinine Clearance Calc 91.48 ml/min [facility] Glomerular filtration rate ( GFR) estimationOrdered By: Julius Matthews on 09-07-2024 Estimated GFR (MDRD) Non-Af Amer 105 mL/min >60 [facility] Comment on above: Non- GFR Calc Glucose measurementOrdered B y: Julius Matthews on 09-07-2024 Glucose [Mass/Vol] 105 mg/dL 74-106 [facility] Comment on above: Fasting Glucose resu lt from 100 to 125 mg/dL suggests IMPAIRED HOMEOSTASIS per A.D.A. criteria. Hematocrit Auto (Bld) [Volum e fraction]Ordered By: Julius Matthews on 09-07-2024 Hematocrit (Bld) [Volume fraction] 41.1 % 40-54 [facility] Hemoglobin measurementOrdere d By: Julius Matthews on 09-07-2024 Hemoglobin (Bld) [Mass/Vol] 13.8 g/dL 13.0-16.5 [facility] Immature granulocytes/100 WB C Auto (Bld)Ordered By: Julius Matthews on 09-07-2024 Immature granulocytes/100 WBC (Bld) 0.400 % 0.0-0.9 [facility] Comment on above: IG% - Immature Granu locytes (promyelocytes, myelocytes and metamyelocytes) > 1% indicates that a LEFT SHIFT is Present. Influenza virus A and B and SARS-CoV-2 (COVID-19) and Respiratory syncytial virus RNAOrdered By: Julius Matthews on 09-07-2024 SARS-CoV-2 (COVID-19) RNA WES+probe Ql (Unsp spec) [facility] L501.4020on 09-07-2024 TROPONIN-I HS 6 pg/mL Normal 3.0-78.0 [facility] Comment on above: Order Comment: 'TROP ' Serial specimen #1, #2 or #3: 1 Result Comment: Nahomi aparicio Note: New Test Units and Gender Specific Reference Ranges. For more information see Policy Stat Procedure [place] High Sensitivity Troponin (TNIH) and attachments. Performed By: #### L 500.2500, L501.4020, L100.0100 ####[facility] [address] [place], [place], [address] Lymphocytes Auto (Unsp spec) [#/Vol]Ordered By: Julius Matthews on 09-07-2024 Lymphocytes (Bld) [#/Vol] 1.14 10*3/uL 0.83-4.51 [facility] Lymphocytes/100 WBC Auto (Un sp spec)Ordered By: Julius Matthews on 09-07-2024 Lymphocytes/100 WBC (Bld) 21.1 % 19-41 [facility] M100.678on 09-07-2024 M100.678 Pending SARS-CoV-2 (COVID 19) Negative INFLUENZA A Negative INFLUENZA B Negative RSV PCR Negative Normal [facility] Comment on above: Performed By: #### M 100.678 ####[facility] [address] [place], [place], [address] MCV (mean corpuscular volume ) determinationOrdered By: Julius Matthews on 09-07-2024 MCV (RBC) [Entitic vol] 94.7 fL High 80-94 [facility] Mean corpuscular hemoglobin (MCH) determinationOrdered By: Julius Matthews on 09-07-2024 MCH (RBC) [Entitic mass] 31.8 pg 27.0-32.0 [facility] Mean corpuscular hemoglobin concentration (MCHC) determinationOrdered By: Julius Matthews on 09-07-2024 MCHC (RBC) [Mass/Vol] 33.6 g/dL 32-36 [facility] Mean platelet volume determi nationOrdered By: Julius Matthews on 09-07-2024 Platelet mean volume (Bld) [Entitic vol] 9.3 fL 6.2-12.0 [facility] Monocyte percentageOrdered B y: Julius Matthews on 09-07-2024 Monocytes/100 WBC (Bld) 7.4 % 0-10 [facility] Neutrophil percentageOrdered By: Julius Matthews on 09-07-2024 Neutrophils/100 WBC (Bld) 58.4 % 47-70 [facility] Nucleated red blood cell per centageOrdered By: Julius Matthews on 09-07-2024 Nucleated RBC/100 WBC (Bld) [Ratio] 0 % 0-5 [facility] Platelet countOrdered By: Benitez Matthews on 09-07-2024 Platelets (Bld) [#/Vol] 327 10*3/uL 150-450 [facility] Potassium measurementOrdered By: Julius Matthews on 09-07-2024 Potassium [Moles/Vol] 3.8 mmol/L 3.5-5.1 [facility] RBC Auto (Bld) [#/Vol]Ordere d By: Julius Matthews on 09-07-2024 RBC (Bld) [#/Vol] 4.34 10*6/uL Low 4.6-6.[address] [facility] Serum anion gap measurementO rdered By: Julius Matthews on 09-07-2024 Anion gap [Moles/Vol] 4 mmol/L Low 5-15 [facility] Serum or plasma calcium micah urement (mass/volume)Ordered By: Julius Matthews on 09-07-2024 Calcium [Mass/Vol] 9.1 mg/dL 8.5-10.1 [facility] Serum or plasma creatinine m easurement (mass/volume)Ordered By: Julius Matthews on 09-07-2024 Creatinine [Mass/Vol] 0.83 mg/dL 0.70-1.30 [facility] Comment on above: The validity of the calculated GFR & GFRAA in patients over 70 years has not been determined. Clinical correlation is essential. Serum or plasma urea nitroge n measurement (mass/volume)Ordered By: Julius Matthews on 09-07-2024 Urea nitrogen [Mass/Vol] 18 mg/dL 7-18 [facility] Sodium levelOrdered By: Connie Matthews on 09-07-2024 Sodium [Moles/Vol] 142 mmol/L 136-145 [facility] Troponin IOrdered By: Julius Matthews on 09-07-2024 Troponin I High Sensitivity 6 pg/mL 3.0-78.0 [facility] Comment on above: Please Note: New Rubi t Units and Gender Specific Reference Ranges. For more information see Policy Stat Procedure [place] High Sensitivity Troponin (TNIH) and attachments. White blood cell (WBC) count Ordered By: Julius Matthews on 09-07-2024 WBC (Bld) [#/Vol] 5.4 10*3/uL 4.4-11.0 [facility] Emergency Department Summary on 08-04-2024 Emergency Department Summary Normal [facility] Foot min 3 Viewson 4 Foot min 3 Views Normal [facility] Emergency Department Summary on 06-03-2024 Emergency Department Summary Normal [facility] Emergency Department Summary on 06-02-2024 Emergency Department Summary Normal [facility] Absolute lymphocyte countOrd ered By: Tae Walsh on 10-29-2023 Lymphocytes Auto (Unsp spec) [#/Vol] 1.38 10*3/uL 0.83-4.51 [facility] Automated lymphocyte count a s percentage of total leukocytesOrdered By: Tae Walsh on 10-29-2023 Lymphocytes/100 WBC Auto (Unsp spec) 14.6 % 19-41 [facility] Basophil percentageOrdered B y: Alisha White on 10-29-2023 Basophil percentage 4.9 mg/dL 2.5-4.[address] [facility] Basophil percentageOrdered B y: Tae Walsh on 10-29-2023 Basophils/100 WBC (Bld) 0.6 % 0-1 [facility] Bilirubin [Mass/Vol] 0.60 mg/dL 0.20-1.00 [facility] Comment on above: For patients on eltr ombopag therapy, use of Dimension [place] TBIL is not recommended. Chloride [Moles/Vol] 100 mmol/L 98-107 [facility] Eosinophils/100 WBC (Bld) 1.6 % 0-5 [facility] Glucose [Mass/Vol] 82 mg/dL 74-106 [facility] Hemoglobin (Bld) [Mass/Vol] 14.5 g/dL 13.0-16.5 [facility] Monocytes/100 WBC (Bld) 4.0 % 0-10 [facility] Neutrophils (Bld) [#/Vol] 7.4 10*3/uL 2.0-7.7 [facility] Neutrophils/100 WBC (Bld) 78.9 % 47-70 [facility] Potassium [Moles/Vol] 4.0 mmol/L 3.5-5.1 [facility] Protein [Mass/Vol] 8.3 g/dL 6.4-8.2 [facility] Sodium [Moles/Vol] 133 mmol/L 136-145 [facility] WBC (Bld) [#/Vol] 9.4 10*3/uL 4.4-11.0 [facility] Determination of erythrocyte mean corpuscular volume (MCV)Ordered By: Taelacey Walsh on 10-29-2023 MCV (RBC) [Entitic vol] 93.4 fL 80-94 [facility] Erythrocyte distribution wid th ratioOrdered By: Tae Walsh on 10-29-2023 Erythrocyte distribution width (RBC) [Ratio] 12.4 % 11.6-14.6 [facility] Erythrocyte distribution wid th standard deviationOrdered By: [facility] on 10-29-[facility]23 Erythrocyte distribution width (RBC) [Entitic vol] 43.0 fL 35.1-43.9 [facility] Hematocrit Auto (Bld) [Volum e fraction]Ordered By: [facility] on 10-29-2023 Hematocrit (Bld) [Volume fraction] 44.1 % 40-54 [facility] Immature granulocytes/100 WB C Auto (Bld)Ordered By: [facility] on 10-29-2023 Immature granulocytes/100 WBC (Bld) 0.300 % 0.0-0.9 [facility] Comment on above: IG% - Immature Granu locytes (promyelocytes, myelocytes and metamyelocytes) > 1% indicates that a LEFT SHIFT is Present. Laboratory - Chemistry and C hemistry - challengeOrdered By: [facility] on 10-29-2023 Albumin/Globulin [Mass ratio] 1.0 {ratio} 0.9-2.4 [facility] ALP [Catalytic activity/Vol] 59 U/L 45-117 [facility] ALT [Catalytic activity/Vol] 37 U/L 16-61 [facility] CO2 [Moles/Vol] 27.0 mmol/L 21.0-32.0 [facility] Globulin (S) [Mass/Vol] 4.1 g/dL 2.2-4.2 [facility] Urea nitrogen/Creatinine [Mass ratio] 21.0 mg/mg 10-20 [facility] Laboratory - Chemistry and C hemistry - challengeOrdered By: Alisha Mcintyre on 10-29-2023 Magnesium [Mass/Vol] 2.3 mg/dL 1.6-2.6 [facility] Laboratory - Drug toxicology Ordered By: Tae Walsh on 10-29-2023 Amphetamines Ql (U) Positive <1000 ng/mL [facility] Benzodiazepines Ql (U) Negative < 200 ng/mL [facility] Cannabinoids Screen Ql (U) Negative < 50 ng/mL [facility] Cocaine Ql (U) Negative < 300 ng/mL [facility] Opiates Ql (U) Negative < 300 ng/mL [facility] Laboratory - Hematology and Cell countsOrdered By: Tae Walsh on 10-29-2023 MCH (RBC) [Entitic mass] 30.7 pg 27.0-32.0 [facility] MCHC (RBC) [Mass/Vol] 32.9 g/dL 32-36 [facility] Nucleated RBC/100 WBC (Bld) [Ratio] 0 % 0-5 [facility] Platelets (Bld) [#/Vol] 338 10*3/uL 150-450 [facility] No Panel InformationOrdered By: Tae Walsh on 10-29-2023 MDMA (Ecstasy) Screen Positive < 500 ng/mL [facility] Urine Barbiturates Screen Negative < 200 ng/mL [facility] Urine Drug Screen Comment [facility] Comment on above: CONFIRMATORY TESTING FOR [...] Urine Methadone Screen Negative < 300 ng/mL [facility] Estimated Creatinine Clearance Calc 92.52 ml/min [facility] Estimated GFR (MDRD) Amer 123 mL/min >60 [facility] Comment on above: GFR Calc Estimated GFR (MDRD) Non-Af Amer 102 mL/min >60 [facility] Comment on above: Non- GFR Calc Ethyl Alcohol Level 5.0 mg/dL [facility] Comment on above: The serum:whole bloo [...] volume (Bld) [Entitic vol] 9.2 fL 6.2-12.0 [facility] RBC Auto (Bld) [#/Vol]Ordere d By: Tae Walsh on 10-29-2023 RBC (Bld) [#/Vol] 4.72 10*6/uL 4.6-6.[address] [facility] Serum or plasma calcium micah urement (mass/volume)Ordered By: Tae Walsh on 10-29-2023 Calcium [Mass/Vol] 9.8 mg/dL 8.5-10.1 [facility] Serum or plasma creatinine m easurement (mass/volume)Ordered By: Tae Walsh on 10-29-2023 Creatinine [Mass/Vol] 0.86 mg/dL 0.70-1.30 [facility] Comment on above: The validity of the calculated GFR & GFRAA in patients over 70 years has not been determined. Clinical correlation is essential. Serum or plasma urea nitroge n measurement (mass/volume)Ordered By: Tae Walsh on 10-29-2023 Urea nitrogen [Mass/Vol] 18 mg/dL 7-18 [facility] Thin prep Papanicolaou smear with manual screeningOrdered By: Tae Walsh on 10-29-2023 Thin prep Papanicolaou smear with manual screening 4.2 g/dL 3.2-5.0 [facility] Thin prep Papanicolaou smear with manual screening 31 U/L 15-37 [facility] Thin prep Papanicolaou smear with manual screening 6 5-15 [facility] Urine phencyclidine (PCP) de tectionOrdered By: Tae Walsh on 10-29-2023 Phencyclidine Ql (U) Negative < 25 ng/mL [facility] CNCOon 09-06-2023 CNCO Letter Text Normal [facility] CNOVon 08-28-2023 CNOV Office Visit (GENSWS ) MICHAEL MCNEILL ([id number]) 1975 M Date Time Provider Department 08/28/23 10:45 AM LINDA JOSE During your visit today, we recorded the following information about you: Temperature Pulse Blood pressure Weight 97.9 degrees 109/minute 130/84 63.9 kg Height 1.702 m Katherine Biggs, FRANCESCA 08/28/2023 10:43 AM Signed REVIEW OF SYSTEMS: [...] If you do not have a responsible carrier driver (family member or friend) with you [...] 3350 a (more content not included)... [facility] MICHAEL MCNEILL ([id number]) [address] [facility] Date Time Provider Department 08/28/23 LINDA JOSE During your visit today, we recorded the following information about you: Vida Perez 08/28/2023 11:16 AM Signed 09/05/2023 COLON MTZ + 10/03/2023 [facility] Vida Christianson 09/13/2023 9:07 AM Signed Received call from [facility] in regards to patient not being able to be contacted. Number listed for patient rings twice then shows busy. Emergency contact listed is inactive. Will keep trying. Patient scheduled for hernia surgery with Dr. Jose in [place] on 10/03/2023. Colonoscopy was cancelled earlier this month. Vdia Perez Please advise [employer]ise [employer]ill Operator Vida Perez 09/19/2023 4:15 PM Signed Office and [facility] unable to reach patient to go over surgery information and schedule PAT prior to surgery as patients number and emergency contacts number has been disconnected Surgery message sent to [place] to cancel surgery as of now Vida Perez [employer]ise [employer] Operator Allergies As of Date: 08/28/2023 Noted Allergy Reaction SEASONAL ALLERGIES 08/26/2023 16 - Unknown Date Reviewed: 08/28/2023 Reviewed by: Katherine Biggs, FRANCESCA - Fully Assessed Reason for Visit: 09/05/2023 COLON FRESNO + 10/03/2023 RIH FRESNO [Other] Prescriptions as of 08/06/2024 - OLANZapine (ZYPREXA) 5 mg tablet Take 5 mg by mouth daily at bedtime. Problem List As Of Date: 08/28/2023 (None) Encounter Status:Closed by BRODERICK JEAN BAPTISTE on 08/06/24 [facility] CNOVon 08-26-2023 CNOV Office Visit (UCWSTR ) MICHAEL MCNEILL Krystian ([id number]) 1975 M Date Time Provider Department 08/26/23 9:45 AM HNERI HURLEY [facility] During your visit today, we recorded the following information about you: Temperature Pulse Respiration Blood pressure 98.3 degrees 80/minute 22/minute 133/82 Weight 68 kg Henri Hurley APRN.PRODUCT COMMUNICATIONS MANAGER 08/26/2023 11:44 AM Signed Subjective HPI HPI [...] - CONSULT TO GENERAL SURGERY Henri Hurley APRN.TITO Referring Provider: SELF [200] Allergies As of Date: 08/26/2023 Noted Allergy Reaction SEASONAL ALLERGIES 08/26/2023 16 - Unknown Date Reviewed: 08/26/2023 Reviewed by: Henri Hurley APRN.PRODUCT COMMUNICATIONS MANAGER - Fully Assessed Reason for Visit: Mass [64] Cmt: Right side above testicle for some years pain on and off Primary Visit Diagnosis:Unilateral inguinal hernia without obstruction or gangrene, recurrence not specified [K40.90] Order(s):CONSULT TO GENERAL SURGERY [9011] Order #: [id number]: 1 FUTURE Prescriptions as of 08/26/2023 - OLANZapine (ZYPREXA) 5 mg tablet Take 5 mg by mouth daily at bedtime. Problem List As Of Date: 08/26/2023 (None) Encounter Status:Closed by HENRI HURLEY on 08/26/23 Normal [facility] Absolute lymphocyte countOrd ered By: Graham Messina on 04-26-2023 Lymphocytes Auto (Unsp spec) [#/Vol] 1.11 10*3/uL 0.83-4.51 [facility] Basophil percentageOrdered B y: Alisha White on 04-26-2023 Basophil percentage 3.7 mg/dL 2.5-4.[address] [facility] Basophil percentageOrdered B y: Graham Messina on 04-26-2023 Basophils/100 WBC (Bld) 0.8 % 0-1 [facility] Bilirubin [Mass/Vol] 0.40 mg/dL 0.20-1.00 [facility] Comment on above: For patients on eltr ombopag therapy, use of Dimension [place] TBIL is not recommended. Chloride [Moles/Vol] 107 mmol/L 98-107 [facility] Eosinophils/100 WBC (Bld) 14.7 % 0-5 [facility] Glucose [Mass/Vol] 98 mg/dL 74-106 [facility] Neutrophils (Bld) [#/Vol] 2.8 10*3/uL 2.0-7.7 [facility] Neutrophils/100 WBC (Bld) 56.3 % 47-70 [facility] Potassium [Moles/Vol] 4.0 mmol/L 3.5-5.1 [facility] Protein [Mass/Vol] 7.4 g/dL 6.4-8.2 [facility] Sodium [Moles/Vol] 139 mmol/L 136-145 [facility] WBC (Bld) [#/Vol] 5.0 10*3/uL 4.4-11.0 [facility] Blood erythrocytes count (nu mber/volume)Ordered By: Graham Messina on 04-26-2023 RBC (Bld) [#/Vol] 4.12 10*6/uL 4.6-6.[address] [facility] Blood hemoglobin measurement (mass/volume)Ordered By: Graham Messina on 04-26-2023 Hemoglobin (Bld) [Mass/Vol] 12.8 g/dL 13.0-16.5 [facility] Blood lymphocytes/100 leukoc ytesOrdered By: Graham Messina on 04-26-2023 Lymphocytes/100 WBC (Bld) 22.0 % 19-41 [facility] Blood monocytes/100 leukocyt esOrdered By: Graham Messina on 04-26-2023 Monocytes/100 WBC (Bld) 6.0 % 0-10 [facility] Blood platelet mean volumeOr dered By: Graham Messina on 04-26-2023 Platelet mean volume (Bld) [Entitic vol] 8.7 fL 6.2-12.0 [facility] Determination of erythrocyte mean corpuscular volume (MCV)Ordered By: Graham Messina on 04-26-2023 MCV (RBC) [Entitic vol] 94.4 fL 80-94 [facility] HIV 1 and HIV-2 antibody ass ay with HIV-1 p24 antigen detectionOrdered By: Alisha Mcintyre on 04-26-2023 HIV 1+2 Ab+HIV1 p24 Ag IA Ql Non-Reactive Nonreactive [facility] Hematocrit Auto (Bld) [Volum e fraction]Ordered By: Graham Messina on 04-26-2023 Hematocrit (Bld) [Volume fraction] 38.9 % 40-54 [facility] Laboratory - Chemistry and C hemistry - challengeOrdered By: Graham Messina on 04-26-2023 ALP [Catalytic activity/Vol] 51 U/L 45-117 [facility] ALT [Catalytic activity/Vol] 43 U/L 16-61 [facility] CO2 [Moles/Vol] 29.0 mmol/L 21.0-32.0 [facility] Globulin (S) [Mass/Vol] 3.9 g/dL 2.2-4.2 [facility] Urea nitrogen/Creatinine [Mass ratio] 23.9 mg/mg 10-20 [facility] Laboratory - Chemistry and C hemistry - challengeOrdered By: Alisha Mcintyre on 04-26-2023 Magnesium [Mass/Vol] 2.0 mg/dL 1.6-2.6 [facility] Laboratory - Drug toxicology Ordered By: Graham Messina on 04-26-2023 Amphetamines Ql (U) Positive <1000 ng/mL [facility] Benzodiazepines Ql (U) Negative < 200 ng/mL [facility] Cannabinoids Screen Ql (U) Negative < 50 ng/mL [facility] Cocaine Ql (U) Negative < 300 ng/mL [facility] Opiates Ql (U) Negative < 300 ng/mL [facility] Laboratory - Hematology and Cell countsOrdered By: Graham Messina on 04-26-2023 Erythrocyte distribution width (RBC) [Entitic vol] 43.1 fL 35.1-43.9 [facility] Erythrocyte distribution width (RBC) [Ratio] 12.5 % 11.6-14.6 [facility] Immature granulocytes/100 WBC (Bld) 0.200 % 0.0-0.9 [facility] Comment on above: IG% - Immature Granu locytes (promyelocytes, myelocytes and metamyelocytes) > 1% indicates that a LEFT SHIFT is Present. MCH (RBC) [Entitic mass] 31.1 pg 27.0-32.0 [facility] Nucleated RBC/100 WBC (Bld) [Ratio] 0 % 0-5 [facility] MCHC Auto (RBC) [Mass/Vol]Or dered By: Graham Messina on 04-26-2023 MCHC (RBC) [Mass/Vol] 32.9 g/dL 32-36 [facility] No Panel InformationOrdered By: Graham Messina on 04-26-2023 MDMA (Ecstasy) Screen Positive < 500 ng/mL [facility] Urine Barbiturates Screen Negative < 200 ng/mL [facility] Urine Drug Screen Comment [facility] Comment on above: CONFIRMATORY TESTING FOR [...] Methadone Screen Negative < 300 ng/mL [facility] Estimated Creatinine Clearance Calc 84.16 ml/min [facility] Estimated GFR (MDRD) Amer 119 mL/min >60 [facility] Comment on above: GFR Calc Estimated GFR (MDRD) Non-Af Amer 99 mL/min >60 [facility] Comment on above: Non- GFR Calc Ethyl Alcohol Level < 3.0 mg/dL [facility] Comment on above: The serum:whole bloo d ethanol ratio is approximately 1.14and varies slightly with hematocrit. Medical Alcohol reference interval and critical value innon-tolerant individuals; 50 - 100 Impairment 100 Intoxication 100 - 250 Severe Poisoning 250 - 400 Deep/possible fatal coma No Panel InformationOrdered By: Alisha Mcintyre on 04-26-2023 Hepatitis B Surface Antigen Non-Reactive Nonreactive [facility] Hepatitis C Antibody Preliminary Reactive Nonre active [facility] Comment on above: Critical Result(s) C alled at: 22:54:59 04/26/2023 by: Kia Bergman. Results read back by same. Non Reactive: < 0.8 Equivocal: >/= 0.8 to < 1.0 Reactive: >/= 1.0The CDC recommends that a reactive/equivocal HCV antibody result be followed up by the HCV Nucleic Acid Amplificationtest (723639) Miscellaneous Test See comment [facility] Comment on above: TEST RESULT LIMITSHC V RNA Diagnosis, WES HCV RNA, Quantitation 8460 IU/mL HCV RNA detected HCV RNA viral loads >/= 25 IU/mL indicate current HCV infection. HCV RNA, log10 3.927 log10 IU/mLTest Information: The quantitative range of this assay is 15 IU/mL to 100 million IU/mL. TESTING PERFORMED AT [facility]. ORIGINAL REPORT ON FILE IN LAB CONTAINS ADDITIONAL TEST SITE INFORMATION. Platelets bldOrdered By: Valentine Messina on 04-26-2023 Platelets (Bld) [#/Vol] 273 10*3/uL 150-450 [facility] Serum Treponema species anti body detectionOrdered By: Alisha Mcintyre on 04-26-2023 Treponema sp Ab Ql (S) Non-Reactive [facility] Serum hepatitis B virus [place] antibody IgG detectionOrdered By: Alisha Mcintyre on 04-26-2023 HBV surface IgG Ql (S) Reactive [facility] Comment on above: Non Reactive: Incons istent with immunity less than <10 mIU/mL Reactive: Consistent with immunity greater than or equal to 10 mIU/mL Serum or plasma albumin micah urement (mass/volume)Ordered By: Graham Messina on 04-26-2023 Albumin [Mass/Vol] 3.5 g/dL 3.2-5.0 [facility] Serum or plasma albumin/glob ulin mass ratioOrdered By: Graham Messina on 04-26-2023 Albumin/Globulin [Mass ratio] 0.9 {ratio} 0.9-2.4 [facility] Serum or plasma calcium micah urement (mass/volume)Ordered By: Graham Messina on 04-26-2023 Calcium [Mass/Vol] 8.9 mg/dL 8.5-10.1 [facility] Serum or plasma creatinine m easurement (mass/volume)Ordered By: Graham Messina on 04-26-2023 Creatinine [Mass/Vol] 0.88 mg/dL 0.70-1.30 [facility] Comment on above: The validity of the calculated GFR & GFRAA in patients over 70 years has not been determined. Clinical correlation is essential. Serum or plasma urea nitroge n measurement (mass/volume)Ordered By: Graham Messina on 04-26-2023 Urea nitrogen [Mass/Vol] 21 mg/dL 7-18 [facility] Thin prep Papanicolaou smear with manual screeningOrdered By: Graham Messina on 04-26-2023 Thin prep Papanicolaou smear with manual screening 26 U/L 15-37 [facility] Thin prep Papanicolaou smear with manual screening 3 5-15 [facility] Urine phencyclidine (PCP) de tectionOrdered By: Graham Messina on 04-26-2023 Phencyclidine Ql (U) Negative < 25 ng/mL [facility] Absolute lymphocyte countOrd ered By: Dr. De Anda on 12-23-2022 Lymphocytes Auto (Unsp spec) [#/Vol] 1.21 10*3/uL 0.83-4.51 [facility] Basophil percentageOrdered B y: Dr. Mcintyre on 12-23-2022 Basophil percentage 3.5 mg/dL 2.5-4.[address] [facility] Basophil percentageOrdered B y: Dr. De Anda on 12-23-2022 Basophils/100 WBC (Bld) 0.7 % 0-1 [facility] Bilirubin [Mass/Vol] 0.30 mg/dL 0.20-1.00 [facility] Comment on above: For patients on eltr ombopag therapy, use of Dimension [place] TBIL is not recommended. Chloride [Moles/Vol] 105 mmol/L 98-107 [facility] Eosinophils/100 WBC (Bld) 7.0 % 0-5 [facility] Glucose [Mass/Vol] 114 mg/dL 74-106 [facility] Comment on above: Fasting Glucose resu lt from 100 to 125 mg/dL suggests IMPAIRED HOMEOSTASIS per A.D.A. criteria. Neutrophils (Bld) [#/Vol] 4.8 10*3/uL 2.0-7.7 [facility] Neutrophils/100 WBC (Bld) 69.3 % 47-70 [facility] Potassium [Moles/Vol] 3.5 mmol/L 3.5-5.1 [facility] Protein [Mass/Vol] 7.4 g/dL 6.4-8.2 [facility] Sodium [Moles/Vol] 139 mmol/L 136-145 [facility] WBC (Bld) [#/Vol] 7.0 10*3/uL 4.4-11.0 [facility] Blood erythrocytes count (nu mber/volume)Ordered By: Dr. De Anda on 12-23-2022 RBC (Bld) [#/Vol] 4.09 10*6/uL 4.6-6.[address] [facility] Blood hemoglobin measurement (mass/volume)Ordered By: Dr. De Anda on 12-23-2022 Hemoglobin (Bld) [Mass/Vol] 12.6 g/dL 13.0-16.5 [facility] Blood lymphocytes/100 leukoc ytesOrdered By: Dr. De Anda on 12-23-2022 Lymphocytes/100 WBC (Bld) 17.4 % 19-41 [facility] Blood monocytes/100 leukocyt esOrdered By: Dr. De Anda on 12-23-2022 Monocytes/100 WBC (Bld) 5.3 % 0-10 [facility] Blood platelet mean volumeOr dered By: Dr. De Anda on 12-23-2022 Platelet mean volume (Bld) [Entitic vol] 9.0 fL 6.2-12.0 [facility] Determination of erythrocyte mean corpuscular volume (MCV)Ordered By: Dr. De Anda on 12-23-2022 MCV (RBC) [Entitic vol] 92.2 fL 80-94 [facility] Hematocrit Auto (Bld) [Volum e fraction]Ordered By: Dr. De Anda on 12-23-2022 Hematocrit (Bld) [Volume fraction] 37.7 % 40-54 [facility] Iron measurement (mass/mass) Ordered By: Dr. Mcintyre on 12-23-2022 Iron (Unsp spec) [Mass/Mass] 57 ug/dL 65-175 [facility] Laboratory - Chemistry and C hemistry - challengeOrdered By: Dr. De Anda on 12-23-2022 ALP [Catalytic activity/Vol] 48 U/L 45-117 [facility] ALT [Catalytic activity/Vol] 67 U/L 16-61 [facility] CO2 [Moles/Vol] 25.0 mmol/L 21.0-32.0 [facility] Globulin (S) [Mass/Vol] 3.9 g/dL 2.2-4.2 [facility] Urea nitrogen/Creatinine [Mass ratio] 35.4 mg/mg 10-20 [facility] Laboratory - Chemistry and C hemistry - challengeOrdered By: Dr. Mcintyre on 12-23-2022 Cobalamin (Vitamin B12) [Mass/Vol] 589 pg/mL 211-911 [facility] Magnesium [Mass/Vol] 2.2 mg/dL 1.6-2.6 [facility] Laboratory - Drug toxicology Ordered By: Dr. De Anda on 12-23-2022 Amphetamines Ql (U) Positive <1000 ng/mL [facility] Benzodiazepines Ql (U) Negative < 200 ng/mL [facility] Cannabinoids Screen Ql (U) Negative < 50 ng/mL [facility] Cocaine Ql (U) Negative < 300 ng/mL [facility] Opiates Ql (U) Negative < 300 ng/mL [facility] Laboratory - Hematology and Cell countsOrdered By: Dr. De Anda on 12-23-2022 Erythrocyte distribution width (RBC) [Entitic vol] 42.5 fL 35.1-43.9 [facility] Erythrocyte distribution width (RBC) [Ratio] 12.6 % 11.6-14.6 [facility] Immature granulocytes/100 WBC (Bld) 0.300 % 0.0-0.9 [facility] Comment on above: IG% - Immature Granu locytes (promyelocytes, myelocytes and metamyelocytes) > 1% indicates that a LEFT SHIFT is Present. MCH (RBC) [Entitic mass] 30.8 pg 27.0-32.0 [facility] Nucleated RBC/100 WBC (Bld) [Ratio] 0 % 0-5 [facility] MCHC Auto (RBC) [Mass/Vol]Or dered By: Dr. De Anda on 12-23-2022 MCHC (RBC) [Mass/Vol] 33.4 g/dL 32-36 [facility] No Panel InformationOrdered By: Dr. De Anda on 12-23-2022 Estimated Creatinine Clearance Calc 93.74 ml/min [facility] Estimated GFR (MDRD) Amer 130 mL/min >60 [facility] Comment on above: GFR Calc Estimated GFR (MDRD) Non-Af Amer 107 mL/min >60 [facility] Comment on above: Non- GFR Calc Ethyl Alcohol Level 25.0 mg/dL [facility] Comment on above: The serum:whole bloo d ethanol ratio is approximately 1.14and varies slightly with hematocrit. Medical Alcohol reference interval and critical value innon-tolerant individuals; 50 - 100 Impairment 100 Intoxication 100 - 250 Severe Poisoning 250 - 400 Deep/possible fatal coma MDMA (Ecstasy) Screen Positive < 500 ng/mL [facility] Urine Barbiturates Screen Negative < 200 ng/mL [facility] Urine Drug Screen Comment [facility] Comment on above: CONFIRMATORY TESTING FOR [...] Methadone Screen Negative < 300 ng/mL [facility] No Panel InformationOrdered By: Dr. Mcintyre on 12-23-2022 Total Iron Binding Capacity 335 ug/dL 250-450 [facility] Platelets bldOrdered By: Dr. De Anda on 12-23-2022 Platelets (Bld) [#/Vol] 285 10*3/uL 150-450 [facility] Serum or plasma albumin micah urement (mass/volume)Ordered By: Dr. De Anda on 12-23-2022 Albumin [Mass/Vol] 3.5 g/dL 3.2-5.0 [facility] Serum or plasma albumin/glob ulin mass ratioOrdered By: Dr. De Anda on 12-23-2022 Albumin/Globulin [Mass ratio] 0.9 {ratio} 0.9-2.4 [facility] Serum or plasma calcium micah urement (mass/volume)Ordered By: Dr. De Anda on 12-23-2022 Calcium [Mass/Vol] 8.8 mg/dL 8.5-10.1 [facility] Serum or plasma creatinine m easurement (mass/volume)Ordered By: Dr. De Anda on 12-23-2022 Creatinine [Mass/Vol] 0.82 mg/dL 0.70-1.30 [facility] Comment on above: The validity of the calculated GFR & GFRAA in patients over 70 years has not been determined. Clinical correlation is essential. Serum or plasma ferritin luisito surement (mass/volume)Ordered By: Dr. Mcintyre on 12-23-2022 Ferritin [Mass/Vol] 27 ng/mL 26-[address] [facility] Serum or plasma folate measu rement (mass/volume)Ordered By: Dr. Mcintyre on 12-23-2022 Folate [Mass/Vol] 16.10 ng/mL 3.1-55.4 [facility] Serum or plasma iron saturat ion measurement (mass fraction)Ordered By: Dr. Mcintyre on 12-23-2022 Iron saturation [Mass fraction] 17.0 % 15.0-55.0 [facility] Serum or plasma urea nitroge n measurement (mass/volume)Ordered By: Dr. De Anda on 12-23-2022 Urea nitrogen [Mass/Vol] 29 mg/dL 7-18 [facility] Thin prep Papanicolaou smear with manual screeningOrdered By: Dr. De Anda on 12-23-2022 Thin prep Papanicolaou smear with manual screening 49 U/L 15-37 [facility] Thin prep Papanicolaou smear with manual screening 9 5-15 [facility] Urine phencyclidine (PCP) de tectionOrdered By: Dr. De Anda on 12-23-2022 Phencyclidine Ql (U) Negative < 25 ng/mL [facility] Absolute lymphocyte countOrd ered By: Dr. Nieves on 11-03-2022 Lymphocytes Auto (Unsp spec) [#/Vol] 1.20 10*3/uL 0.83-4.51 [facility] Basophil percentageOrdered B y: Dr. Nieves on 11-03-2022 Basophils/100 WBC (Bld) 0.7 % 0-1 [facility] Chloride [Moles/Vol] 107 mmol/L 98-107 [facility] Eosinophils/100 WBC (Bld) 10.8 % 0-5 [facility] Glucose [Mass/Vol] 152 mg/dL 74-106 [facility] Comment on above: Fasting Glucose resu lt greater than or equal to 126 mg/dL suggests DIABETES MELLITUS per A.D.A. criteria. Neutrophils (Bld) [#/Vol] 3.5 10*3/uL 2.0-7.7 [facility] Neutrophils/100 WBC (Bld) 60.9 % 47-70 [facility] Potassium [Moles/Vol] 3.6 mmol/L 3.5-5.1 [facility] Sodium [Moles/Vol] 140 mmol/L 136-145 [facility] WBC (Bld) [#/Vol] 5.7 10*3/uL 4.4-11.0 [facility] Blood erythrocytes count (nu mber/volume)Ordered By: Dr. Nieves on 11-03-2022 RBC (Bld) [#/Vol] 3.80 10*6/uL 4.6-6.[address] [facility] Blood hemoglobin measurement (mass/volume)Ordered By: Dr. Nieves on 11-03-2022 Hemoglobin (Bld) [Mass/Vol] 11.8 g/dL 13.0-16.5 [facility] Blood lymphocytes/100 leukoc ytesOrdered By: Dr. Nieves on 11-03-2022 Lymphocytes/100 WBC (Bld) 20.9 % 19-41 [facility] Blood monocytes/100 leukocyt esOrdered By: Dr. Nieves on 11-03-2022 Monocytes/100 WBC (Bld) 6.5 % 0-10 [facility] Blood platelet mean volumeOr dered By: Dr. Nieves on 11-03-2022 Platelet mean volume (Bld) [Entitic vol] 8.6 fL 6.2-12.0 [facility] Determination of erythrocyte mean corpuscular volume (MCV)Ordered By: Dr. Nieves on 11-03-2022 MCV (RBC) [Entitic vol] 93.2 fL 80-94 [facility] Hematocrit Auto (Bld) [Volum e fraction]Ordered By: Dr. Nieves on 11-03-2022 Hematocrit (Bld) [Volume fraction] 35.4 % 40-54 [facility] Laboratory - Chemistry and C hemistry - challengeOrdered By: Dr. Nieves on 11-03-2022 CO2 [Moles/Vol] 29.0 mmol/L 21.0-32.0 [facility] Urea nitrogen/Creatinine [Mass ratio] 27.6 mg/mg 10-20 [facility] Laboratory - Hematology and Cell countsOrdered By: Dr. Nieves on 11-03-2022 Erythrocyte distribution width (RBC) [Entitic vol] 43.3 fL 35.1-43.9 [facility] Erythrocyte distribution width (RBC) [Ratio] 12.6 % 11.6-14.6 [facility] Immature granulocytes/100 WBC (Bld) 0.200 % 0.0-0.9 [facility] Comment on above: IG% - Immature Granu locytes (promyelocytes, myelocytes and metamyelocytes) > 1% indicates that a LEFT SHIFT is Present. MCH (RBC) [Entitic mass] 31.1 pg 27.0-32.0 [facility] Nucleated RBC/100 WBC (Bld) [Ratio] 0 % 0-5 [facility] MCHC Auto (RBC) [Mass/Vol]Or dered By: Dr. Nieves on 11-03-2022 MCHC (RBC) [Mass/Vol] 33.3 g/dL 32-36 [facility] No Panel InformationOrdered By: Dr. Nieves on 11-03-2022 Estimated Creatinine Clearance Calc 88.52 ml/min [facility] Estimated GFR (MDRD) Amer 115 mL/min >60 [facility] Comment on above: GFR Calc Estimated GFR (MDRD) Non-Af Amer 95 mL/min >60 [facility] Comment on above: Non- GFR Calc Platelets bldOrdered By: Dr. Nieves on 11-03-2022 Platelets (Bld) [#/Vol] 321 10*3/uL 150-450 [facility] Serum or plasma calcium micah urement (mass/volume)Ordered By: Dr. Nieves on 11-03-2022 Calcium [Mass/Vol] 8.6 mg/dL 8.5-10.1 [facility] Serum or plasma creatinine m easurement (mass/volume)Ordered By: Dr. Nieves on 11-03-2022 Creatinine [Mass/Vol] 0.91 mg/dL 0.70-1.30 [facility] Comment on above: The validity of the calculated GFR & GFRAA in patients over 70 years has not been determined. Clinical correlation is essential. Serum or plasma urea nitroge n measurement (mass/volume)Ordered By: Dr. Nieves on 11-03-2022 Urea nitrogen [Mass/Vol] 25 mg/dL 7-18 [facility] Thin prep Papanicolaou smear with manual screeningOrdered By: Dr. Nieves on 11-03-2022 Thin prep Papanicolaou smear with manual screening 4 5-15 [facility] Influenza virus A and B and SARS-CoV-2 (COVID-19) Ag panel - Upper respiratory specimOrdered By: Dr. Messina on 09-05-2022 SARS-CoV-2 & FLU Antigen (Rapid) Influenzae A [facility] COVID-19 virus antigen assay Ordered By: Dr. Garcia on 07-26-2022 SARS-CoV-2 (COVID-19) Ag IA.rapid Ql (Resp) [facility] Absolute lymphocyte countOrd ered By: Dr. Hess on 07-15-2022 Lymphocytes Auto (Unsp spec) [#/Vol] 1.71 10*3/uL 0.83-4.51 [facility] Basophil percentageOrdered B y: Dr. Mcintyre on 07-15-2022 Basophil percentage 3.5 mg/dL 2.5-4.[address] [facility] Bilirubin [Mass/Vol] 0.40 mg/dL 0.20-1.00 [facility] Comment on above: For patients on eltr ombopag therapy, use of Dimension [place] TBIL is not recommended. Protein [Mass/Vol] 8.5 g/dL 6.4-8.2 [facility] Basophil percentageOrdered B y: Dr. Hess on 07-15-2022 Basophils/100 WBC (Bld) 0.8 % 0-1 [facility] Chloride [Moles/Vol] 108 mmol/L 98-107 [facility] Eosinophils/100 WBC (Bld) 6.0 % 0-5 [facility] Glucose [Mass/Vol] 85 mg/dL 74-106 [facility] Neutrophils (Bld) [#/Vol] 3.6 10*3/uL 2.0-7.7 [facility] Neutrophils/100 WBC (Bld) 59.1 % 47-70 [facility] Potassium [Moles/Vol] 3.8 mmol/L 3.5-5.1 [facility] Sodium [Moles/Vol] 142 mmol/L 136-145 [facility] WBC (Bld) [#/Vol] 6.1 10*3/uL 4.4-11.0 [facility] Blood erythrocytes count (nu mber/volume)Ordered By: Dr. Hess on 07-15-2022 RBC (Bld) [#/Vol] 4.38 10*6/uL 4.6-6.[address] [facility] Blood hemoglobin measurement (mass/volume)Ordered By: Dr. Hess on 07-15-2022 Hemoglobin (Bld) [Mass/Vol] 13.8 g/dL 13.0-16.5 [facility] Blood lymphocytes/100 leukoc ytesOrdered By: Dr. Hess on 07-15-2022 Lymphocytes/100 WBC (Bld) 27.9 % 19-41 [facility] Blood monocytes/100 leukocyt esOrdered By: Dr. Hess on 07-15-2022 Monocytes/100 WBC (Bld) 6.0 % 0-10 [facility] Blood platelet mean volumeOr dered By: Dr. Hess on 07-15-2022 Platelet mean volume (Bld) [Entitic vol] 8.9 fL 6.2-12.0 [facility] Determination of erythrocyte mean corpuscular volume (MCV)Ordered By: Dr. Hess on 07-15-2022 MCV (RBC) [Entitic vol] 93.6 fL 80-94 [facility] Direct bilirubinOrdered By: Dr. Mcintyre on 07-15-2022 Bilirubin.direct [Mass/Vol] 0.11 mg/dL 0.00-0.30 [facility] Hematocrit Auto (Bld) [Volum e fraction]Ordered By: Dr. Hess on 07-15-2022 Hematocrit (Bld) [Volume fraction] 41.0 % 40-54 [facility] Laboratory - Chemistry and C hemistry - challengeOrdered By: Dr. Mcintyre on 07-15-2022 ALP [Catalytic activity/Vol] 54 U/L 45-117 [facility] ALT [Catalytic activity/Vol] 63 U/L 16-61 [facility] Globulin (S) [Mass/Vol] 4.4 g/dL 2.2-4.2 [facility] Magnesium [Mass/Vol] 2.3 mg/dL 1.6-2.6 [facility] Laboratory - Chemistry and C hemistry - challengeOrdered By: Dr. Hess on 07-15-2022 CO2 [Moles/Vol] 28.0 mmol/L 21.0-32.0 [facility] Urea nitrogen/Creatinine [Mass ratio] 24.8 mg/mg 10-20 [facility] Laboratory - Drug toxicology Ordered By: Dr. Hess on 07-15-2022 Amphetamines Ql (U) Positive <1000 ng/mL [facility] Benzodiazepines Ql (U) Negative < 200 ng/mL [facility] Cannabinoids Screen Ql (U) Positive < 50 ng/mL [facility] Cocaine Ql (U) Negative < 300 ng/mL [facility] Opiates Ql (U) Negative < 300 ng/mL [facility] Laboratory - Hematology and Cell countsOrdered By: Dr. Hess on 07-15-2022 Erythrocyte distribution width (RBC) [Entitic vol] 43.1 fL 35.1-43.9 [facility] Erythrocyte distribution width (RBC) [Ratio] 12.5 % 11.6-14.6 [facility] Immature granulocytes/100 WBC (Bld) 0.200 % 0.0-0.9 [facility] Comment on above: IG% - Immature Granu locytes (promyelocytes, myelocytes and metamyelocytes) > 1% indicates that a LEFT SHIFT is Present. MCH (RBC) [Entitic mass] 31.5 pg 27.0-32.0 [facility] Nucleated RBC/100 WBC (Bld) [Ratio] 0 % 0-5 [facility] MCHC Auto (RBC) [Mass/Vol]Or dered By: Dr. Hess on 07-15-2022 MCHC (RBC) [Mass/Vol] 33.7 g/dL 32-36 [facility] No Panel InformationOrdered By: Dr. Hess on 07-15-2022 MDMA (Ecstasy) Screen Positive < 500 ng/mL [facility] Urine Barbiturates Screen Negative < 200 ng/mL [facility] Urine Drug Screen Comment [facility] Comment on above: CONFIRMATORY TESTING FOR [...] Urine Methadone Screen Negative < 300 ng/mL [facility] Estimated Creatinine Clearance Calc 79.37 ml/min [facility] Estimated GFR (MDRD) Amer 107 mL/min >60 [facility] Comment on above: GFR Calc Estimated GFR (MDRD) Non-Af Amer 89 mL/min >60 [facility] Comment on above: Non- GFR Calc Ethyl Alcohol Level < 3.0 mg/dL [facility] Comment on above: The serum:whole bloo d ethanol ratio is approximately 1.14and varies slightly with hematocrit. Medical Alcohol reference interval and critical value innon-tolerant individuals; 50 - 100 Impairment 100 Intoxication 100 - 250 Severe Poisoning 250 - 400 Deep/possible fatal coma Platelets bldOrdered By: Dr. Hess on 07-15-2022 Platelets (Bld) [#/Vol] 289 10*3/uL 150-450 [facility] Serum or plasma albumin micah urement (mass/volume)Ordered By: Dr. Mcintyre on 07-15-2022 Albumin [Mass/Vol] 4.1 g/dL 3.2-5.0 [facility] Serum or plasma calcium micah urement (mass/volume)Ordered By: Dr. Hess on 07-15-2022 Calcium [Mass/Vol] 9.1 mg/dL 8.5-10.1 [facility] Serum or plasma creatinine m easurement (mass/volume)Ordered By: Dr. Hess on 07-15-2022 Creatinine [Mass/Vol] 0.97 mg/dL 0.70-1.30 [facility] Comment on above: The validity of the calculated GFR & GFRAA in patients over 70 years has not been determined. Clinical correlation is essential. Serum or plasma urea nitroge n measurement (mass/volume)Ordered By: Dr. Hess on 07-15-2022 Urea nitrogen [Mass/Vol] 24 mg/dL 7-18 [facility] Thin prep Papanicolaou smear with manual screeningOrdered By: Dr. Mcintyre on 07-15-2022 Thin prep Papanicolaou smear with manual screening 32 U/L 15-37 [facility] Thin prep Papanicolaou smear with manual screeningOrdered By: Dr. Hess on 07-15-2022 Thin prep Papanicolaou smear with manual screening 6 5-15 [facility] Urine phencyclidine (PCP) de tectionOrdered By: Dr. Hess on 07-15-2022 Phencyclidine Ql (U) Negative < 25 ng/mL [facility] Absolute lymphocyte counton 08-23-2022 Lymphocytes Auto (Unsp spec) [#/Vol] 1.23 10*3/uL 0.83-4.51 [facility] Work Phone: [phone] Basophil percentageon 2021 Basophils/100 WBC (Bld) 0.5 % 0-1 [facility] Work Phone: [phone] Bilirubin [Mass/Vol] 0.50 mg/dL 0.20-1.00 [facility] Work Phone: Comment on above: For patients on eltr ombopag therapy, use of Dimension [place] TBIL is not recommended. Chloride [Moles/Vol] 107 mmol/L 98-107 [facility] Work Phone: Eosinophils/100 WBC (Bld) 6.2 % 0-5 [facility] Work Phone: Glucose [Mass/Vol] 117 mg/dL 74-106 [facility] Work Phone: Comment on above: Fasting Glucose resu lt from 100 to 125 mg/dL suggests IMPAIRED HOMEOSTASIS per A.D.A. criteria. Neutrophils (Bld) [#/Vol] 4.0 10*3/uL 2.0-7.7 [facility] Work Phone: Neutrophils/100 WBC (Bld) 67.5 % 47-70 [facility] Work Phone: Potassium [Moles/Vol] 3.8 mmol/L 3.5-5.1 [facility] Work Phone: [phone] Protein [Mass/Vol] 8.0 g/dL 6.4-8.2 [facility] Work Phone: Sodium [Moles/Vol] 140 mmol/L 136-145 [facility] Work Phone: WBC (Bld) [#/Vol] 6.0 10*3/uL 4.4-11.0 [facility] Work Phone: Blood erythrocytes count (nu mber/volume)on 05-24-2022 RBC (Bld) [#/Vol] 4.22 10*6/uL 4.6-6.[address] [facility] Work Phone: Blood hemoglobin measurement (mass/volume)on 05-24-2022 Hemoglobin (Bld) [Mass/Vol] 13.1 g/dL 13.0-16.5 [facility] Work Phone: Blood lymphocytes/100 leukoc yteson 05-24-2022 Lymphocytes/100 WBC (Bld) 20.6 % 19-41 [facility] Work Phone: Blood monocytes/100 leukocyt eson 05-24-2022 Monocytes/100 WBC (Bld) 4.9 % 0-10 [facility] Work Phone: Blood platelet mean volumeon 05-24-2022 Platelet mean volume (Bld) [Entitic vol] 8.5 fL 6.2-12.0 [facility] Work Phone: Determination of erythrocyte mean corpuscular volume (MCV)on 05-24-2022 MCV (RBC) [Entitic vol] 91.0 fL 80-94 [facility] Work Phone: Hematocrit Auto (Bld) [Volum e fraction]on 05-24-2022 Hematocrit (Bld) [Volume fraction] 38.4 % 40-54 [facility] Work Phone: Laboratory - Chemistry and C hemistry - challengeon 05-24-2022 ALP [Catalytic activity/Vol] 57 U/L 45-117 [facility] Work Phone: ALT [Catalytic activity/Vol] 66 U/L 16-61 [facility] Work Phone: CO2 [Moles/Vol] 28.0 mmol/L 21.0-32.0 [facility] Work Phone: [phone] Globulin (S) [Mass/Vol] 4.2 g/dL 2.2-4.2 [facility] Work Phone: Urea nitrogen/Creatinine [Mass ratio] 21.8 mg/mg 10-20 [facility] Work Phone: Laboratory - Drug toxicology on 05-24-2022 Amphetamines Ql (U) Positive <[facility] Work [facility]: Benzodiazepines Ql (U) Negative < 200 ng/mL [facility] Work Phone: Cannabinoids Screen Ql (U) Negative < 50 ng/mL [facility] Work Phone: Cocaine Ql (U) Negative < 300 ng/mL [facility] Work Phone: Opiates Ql (U) Positive < 300 ng/mL [facility] Work Phone: Laboratory - Hematology and Cell countson 05-24-2022 Erythrocyte distribution width (RBC) [Entitic vol] 41.7 fL 35.1-43.9 [facility] Work Phone: Erythrocyte distribution width (RBC) [Ratio] 12.8 % 11.6-14.6 [facility] Work Phone: Immature granulocytes/100 WBC (Bld) 0.300 % 0.0-0.9 [facility] Work Phone: Comment on above: IG% - Immature Granu locytes (promyelocytes, myelocytes and metamyelocytes) > 1% indicates that a LEFT SHIFT is Present. MCH (RBC) [Entitic mass] 31.0 pg 27.0-32.0 [facility] Work Phone: Nucleated RBC/100 WBC (Bld) [Ratio] 0 % 0-5 [facility] Work Phone: MCHC Auto (RBC) [Mass/Vol]on 05-24-2022 MCHC (RBC) [Mass/Vol] 34.1 g/dL 32-36 [facility] Work Phone: No Panel Informationon 05-24 MDMA (Ecstasy) Screen Positive < 500 ng/mL [facility] Work Phone: Urine Barbiturates Screen Negative < 200 ng/mL [facility] Work Phone: Urine Drug Screen Comment [facility] Work Phone: Comment on above: CONFIRMATORY [...] Methadone Screen Negative < 300 ng/mL [facility] Work Phone: Estimated Creatinine Clearance Calc 70.36 ml/min [facility] Work Phone: Estimated GFR (MDRD) Amer 102 mL/min >60 [facility] Work Phone: Comment on above: GFR Calc Estimated GFR (MDRD) Non-Af Amer 84 mL/min >60 [facility] Work Phone: Comment on above: Non- GFR Calc Ethyl Alcohol Level < 3.0 mg/dL [facility] Work Phone: Comment on above: The serum:whole bloo d ethanol ratio is approximately 1.14and varies slightly with hematocrit. Medical Alcohol reference interval and critical value innon-tolerant individuals; 50 - 100 Impairment 100 Intoxication 100 - 250 Severe Poisoning 250 - 400 Deep/possible fatal coma Platelets bldon 05-24-2022 Platelets (Bld) [#/Vol] 300 10*3/uL 150-450 [facility] Work Phone: Serum or plasma albumin micah urement (mass/volume)on 05-24-2022 Albumin [Mass/Vol] 3.8 g/dL 3.2-5.0 [facility] Work Phone: Serum or plasma albumin/glob ulin mass ratioon 05-24-2022 Albumin/Globulin [Mass ratio] 0.9 {ratio} 0.9-2.4 [facility] Work Phone: Serum or plasma calcium micah urement (mass/volume)on 05-24-2022 Calcium [Mass/Vol] 8.9 mg/dL 8.5-10.1 [facility] Work Phone: Serum or plasma creatinine m easurement (mass/volume)on 05-24-2022 Creatinine [Mass/Vol] 1.01 mg/dL 0.70-1.30 [facility] Work Phone: Comment on above: The validity of the calculated GFR & GFRAA in patients over 70 years has not been determined. Clinical correlation is essential. Serum or plasma urea nitroge n measurement (mass/volume)on 05-24-2022 Urea nitrogen [Mass/Vol] 22 mg/dL 7-18 [facility] Work Phone: Thin prep Papanicolaou smear with manual screeningon 05-24-2022 Thin prep Papanicolaou smear with manual screening 39 U/L 15-37 [facility] Work Phone: Thin prep Papanicolaou smear with manual screening 5 5-15 [facility] Work Phone: Urine phencyclidine (PCP) de tectionon 05-24-2022 Phencyclidine Ql (U) Negative < 25 ng/mL [facility] Work Phone: Absolute lymphocyte counton 03-28-2022 Lymphocytes Auto (Unsp spec) [#/Vol] 1.05 10*3/uL 0.83-4.51 [facility] Work Phone: Basophil percentageon 2021 Basophils/100 WBC (Bld) 0.3 % 0-1 [facility] Work Phone: Chloride [Moles/Vol] 101 mmol/L 98-107 [facility] Work Phone: Eosinophils/100 WBC (Bld) 5.9 % 0-5 [facility] Work Phone: Glucose [Mass/Vol] 95 mg/dL 74-106 [facility] Work Phone: Neutrophils (Bld) [#/Vol] 6.9 10*3/uL 2.0-7.7 [facility] Work Phone: [phone] Neutrophils/100 WBC (Bld) 76.5 % 47-70 [facility] Work Phone: Potassium [Moles/Vol] 3.8 mmol/L 3.5-5.[address] [facility] Work Phone: Sodium [Moles/Vol] 136 mmol/L 136-[address] [facility] Work Phone: WBC (Bld) [#/Vol] 9.0 10*3/uL 4.4-11.[address] [facility] Work Phone: Blood erythrocytes count (nu mber/volume)on 03-28-2022 RBC (Bld) [#/Vol] 4.54 10*6/uL 4.6-6.2 [facility] Work Phone: Blood hemoglobin measurement (mass/volume)on 03-28-2022 Hemoglobin (Bld) [Mass/Vol] 14.4 g/dL 13.0-16.5 [facility] Work Phone: [phone] Blood lymphocytes/100 leukoc yteson 03-28-2022 Lymphocytes/100 WBC (Bld) 11.7 % 19-41 [facility] Work Phone: Blood monocytes/100 leukocyt eson 03-28-2022 Monocytes/100 WBC (Bld) 5.3 % 0-10 [facility] Work Phone: Blood platelet mean volumeon 03-28-2022 Platelet mean volume (Bld) [Entitic vol] 9.0 fL 6.2-12.0 [facility] Work Phone: Determination of erythrocyte mean corpuscular volume (MCV)on 03-28-2022 MCV (RBC) [Entitic vol] 93.2 fL 80-94 [facility] Work Phone: Hematocrit Auto (Bld) [Volum e fraction]on 03-28-2022 Hematocrit (Bld) [Volume fraction] 42.3 % 40-54 [facility] Work Phone: Laboratory - Chemistry and C hemistry - challengeon 03-28-2022 CO2 [Moles/Vol] 29.0 mmol/L 21.0-32.0 [facility] Work Phone: Urea nitrogen/Creatinine [Mass ratio] 23.5 mg/mg 10-20 [facility] Work Phone: Laboratory - Hematology and Cell countson 03-28-2022 Erythrocyte distribution width (RBC) [Entitic vol] 41.4 fL 35.1-43.9 [facility] Work Phone: Erythrocyte distribution width (RBC) [Ratio] 12.0 % 11.6-14.6 [facility] Work Phone: Immature granulocytes/100 WBC (Bld) 0.300 % 0.0-0.9 [facility] Work Phone: Comment on above: IG% - Immature Granu locytes (promyelocytes, myelocytes and metamyelocytes) > 1% indicates that a LEFT SHIFT is Present. MCH (RBC) [Entitic mass] 31.7 pg 27.0-32.0 [facility] Work Phone: Nucleated RBC/100 WBC (Bld) [Ratio] 0 % 0-5 [facility] Work Phone: MCHC Auto (RBC) [Mass/Vol]on 03-28-2022 MCHC (RBC) [Mass/Vol] 34.0 g/dL 32-36 [facility] Work Phone: No Panel Informationon 03-28 Estimated Creatinine Clearance Calc 83.60 ml/min [facility] Work Phone: Estimated GFR (MDRD) Amer 125 mL/min >60 [facility] Work Phone: Comment on above: GFR Calc Estimated GFR (MDRD) Non-Af Amer 103 mL/min >60 [facility] Work Phone: Comment on above: Non- GFR Calc Platelets bldon 03-28-2022 Platelets (Bld) [#/Vol] 244 10*3/uL 150-450 [facility] Work Phone: Serum or plasma calcium micah urement (mass/volume)on 03-28-2022 Calcium [Mass/Vol] 8.5 mg/dL 8.5-10.[address] [facility] Work Phone: Serum or plasma creatinine m easurement (mass/volume)on 03-28-2022 Creatinine [Mass/Vol] 0.85 mg/dL 0.70-1.30 [facility] Work Phone: Comment on above: The validity of the calculated GFR & GFRAA in patients over 70 years has not been determined. Clinical correlation is essential. Serum or plasma urea nitroge n measurement (mass/volume)on 03-28-2022 Urea nitrogen [Mass/Vol] 20 mg/dL 7-18 [facility] Work Phone: Thin prep Papanicolaou smear with manual screeningon 03-28-2022 Thin prep Papanicolaou smear with manual screening 6 5-15 [facility] Work Phone: Laboratory - Microbiology an d Antimicrobial susceptibilityon 03-26-2022 SARS-CoV-2 (COVID-19) RNA WES+probe Ql (Unsp spec) Not detected [facility] Work Phone: No Panel Informationon 03-26 Influenza Types A,B Rapid (Clinic) Not detected [facility] Work Phone: Absolute lymphocyte counton 03-19-2022 Lymphocytes Auto (Unsp spec) [#/Vol] 1.40 10*3/uL 0.83-4.51 [facility] Work Phone: Basophil percentageon 2021 Basophils/100 WBC (Bld) 0.9 % 0-1 [facility] Work Phone: Bilirubin [Mass/Vol] 0.40 mg/dL 0.20-1.00 [facility] Work Phone: Comment on above: For patients on eltr ombopag therapy, use of Dimension [place] TBIL is not recommended. Chloride [Moles/Vol] 107 mmol/L 98-107 [facility]: Eosinophils/100 WBC (Bld) 8.8 % 0-5 [facility] Work Phone: Glucose [Mass/Vol] 97 mg/dL 74-106 [facility] Work Phone: Neutrophils (Bld) [#/Vol] 3.4 10*3/uL 2.0-7.7 [facility] Work Phone: Neutrophils/100 WBC (Bld) 60.1 % 47-70 [facility] Work Phone: Potassium [Moles/Vol] 4.5 mmol/L 3.5-5.1 [facility] Work Phone: Comment on above: Moderate Hemolysis, Result may be falsely increased. Protein [Mass/Vol] 8.2 g/dL 6.4-8.2 [facility] Work Phone: Sodium [Moles/Vol] 139 mmol/L 136-145 [facility] Work Phone: WBC (Bld) [#/Vol] 5.7 10*3/uL 4.4-11.0 [facility] Work Phone: Blood erythrocytes count (nu mber/volume)on 03-19-2022 RBC (Bld) [#/Vol] 4.46 10*6/uL 4.6-6.[address] [facility] Work Phone: Blood hemoglobin measurement (mass/volume)on 03-19-2022 Hemoglobin (Bld) [Mass/Vol] 13.9 g/dL 13.0-16.5 [facility] Work Phone: Blood lymphocytes/100 leukoc yteson 03-19-2022 Lymphocytes/100 WBC (Bld) 24.6 % 19-41 [facility] Work Phone: Blood monocytes/100 leukocyt eson 03-19-2022 Monocytes/100 WBC (Bld) 5.4 % 0-10 [facility] Work Phone: Blood platelet mean volumeon 03-19-2022 Platelet mean volume (Bld) [Entitic vol] 9.0 fL 6.2-12.0 [facility] Work Phone: Determination of erythrocyte mean corpuscular volume (MCV)on 03-19-2022 MCV (RBC) [Entitic vol] 92.8 fL 80-94 [facility] Work Phone: Hematocrit Auto (Bld) [Volum e fraction]on 03-19-2022 Hematocrit (Bld) [Volume fraction] 41.4 % 40-54 [facility] Work Phone: Laboratory - Chemistry and C hemistry - challengeon 03-19-2022 ALP [Catalytic activity/Vol] 61 U/L 45-117 [facility] Work Phone: ALT [Catalytic activity/Vol] 42 U/L 16-61 [facility] Work Phone: CO2 [Moles/Vol] 28.0 mmol/L 21.0-32.0 [facility] Work Phone: Globulin (S) [Mass/Vol] 4.5 g/dL 2.2-4.2 [facility] Work Phone: Urea nitrogen/Creatinine [Mass ratio] 33.6 mg/mg 10-20 [facility] Work Phone: Laboratory - Drug toxicology on 03-19-2022 Amphetamines Ql (U) Positive <1000 ng/mL [facility] Work Phone: Benzodiazepines Ql (U) Negative < 200 ng/mL [facility] Work Phone: Cannabinoids Screen Ql (U) Negative < 50 ng/mL [facility] Work Phone: Cocaine Ql (U) Negative < 300 ng/mL [facility] Work Phone: Opiates Ql (U) Negative < 300 ng/mL [facility] Work Phone: Laboratory - Hematology and Cell countson 03-19-2022 Erythrocyte distribution width (RBC) [Entitic vol] 40.3 fL 35.1-43.9 [facility] Work Phone: Erythrocyte distribution width (RBC) [Ratio] 11.9 % 11.6-14.6 [facility] Work Phone: Immature granulocytes/100 WBC (Bld) 0.200 % 0.0-0.9 [facility] Work Phone: Comment on above: IG% - Immature Granu locytes (promyelocytes, myelocytes and metamyelocytes) > 1% indicates that a LEFT SHIFT is Present. MCH (RBC) [Entitic mass] 31.2 pg 27.0-32.0 [facility] Work Phone: Nucleated RBC/100 WBC (Bld) [Ratio] 0 % 0-5 [facility] Work Phone: MCHC Auto (RBC) [Mass/Vol]on 03-19-2022 MCHC (RBC) [Mass/Vol] 33.6 g/dL 32-36 [facility] Work Phone: No Panel Informationon 03-19 MDMA (Ecstasy) Screen Positive < 500 ng/mL [facility] Work Phone: Urine Barbiturates Screen Negative < 200 ng/mL [facility] Work Phone: Urine Drug Screen Comment [facility] Work Phone: Comment on above: CONFIRMATORY [...] Urine Methadone Screen Negative < 300 ng/mL [facility] Work Phone: Estimated Creatinine Clearance Calc 83.73 ml/min [facility] Work Phone: Estimated GFR (MDRD) Amer 123 mL/min >60 [facility] Work Phone: Comment on above: GFR Calc Estimated GFR (MDRD) Non-Af Amer 101 mL/min >60 [facility] Work Phone: Comment on above: Non- GFR Calc Ethyl Alcohol Level 4.0 mg/dL [facility] Work Phone: Comment on above: The serum:whole bloo d ethanol ratio is approximately 1.14and varies slightly with hematocrit. Medical Alcohol reference interval and critical value innon-tolerant individuals; 50 - 100 Impairment 100 Intoxication 100 - 250 Severe Poisoning 250 - 400 Deep/possible fatal coma Platelets bldon 03-19-2022 Platelets (Bld) [#/Vol] 301 10*3/uL 150-450 [facility] Work Phone: Serum or plasma albumin micah urement (mass/volume)on 03-19-2022 Albumin [Mass/Vol] 3.7 g/dL 3.2-5.0 [facility] Work Phone: Serum or plasma albumin/glob ulin mass ratioon 03-19-2022 Albumin/Globulin [Mass ratio] 0.8 {ratio} 0.9-2.4 [facility] Work Phone: Serum or plasma calcium micah urement (mass/volume)on 03-19-2022 Calcium [Mass/Vol] 8.6 mg/dL 8.5-10.1 [facility] Work Phone: Serum or plasma creatinine m easurement (mass/volume)on 03-19-2022 Creatinine [Mass/Vol] 0.86 mg/dL 0.70-1.30 [facility] Work Phone: Comment on above: The validity of the calculated GFR & GFRAA in patients over 70 years has not been determined. Clinical correlation is essential. Serum or plasma urea nitroge n measurement (mass/volume)on 03-19-2022 Urea nitrogen [Mass/Vol] 29 mg/dL 04-18 [facility] Work Phone: Thin prep Papanicolaou smear with manual screeningon 03-19-2022 Thin prep Papanicolaou smear with manual screening 33 U/L 15-37 [facility] Work Phone: Comment on above: Moderate Hemolysis, Result may be falsely increased. Thin prep Papanicolaou smear with manual screening 4 5-15 [facility] Work Phone: Urine phencyclidine (PCP) de tectionon 03-19-2022 Phencyclidine Ql (U) Negative < 25 ng/mL [facility] Work Phone: Absolute lymphocyte counton 02-12-2022 Lymphocytes Auto (Unsp spec) [#/Vol] 1.09 10*3/uL 0.83-4.51 [facility] Work Phone: Basophil percentageon 2021 Basophils/100 WBC (Bld) 0.7 % 0-1 [facility] Work Phone: [phone] Chloride [Moles/Vol] 108 mmol/L 98-107 [facility] Work Phone: Eosinophils/100 WBC (Bld) 6.1 % 0-5 [facility] Work Phone: Glucose [Mass/Vol] 96 mg/dL 74-106 [facility] Work Phone: Neutrophils (Bld) [#/Vol] 2.8 10*3/uL 2.0-7.7 [facility] Work Phone: Neutrophils/100 WBC (Bld) 60.8 % 47-70 [facility] Work Phone: Potassium [Moles/Vol] 3.8 mmol/L 3.5-5.1 [facility] Work Phone: Sodium [Moles/Vol] 141 mmol/L 136-145 [facility] Work Phone: WBC (Bld) [#/Vol] 4.6 10*3/uL 4.4-11.0 [facility] Work Phone: Blood erythrocytes count (nu mber/volume)on 02-12-2022 RBC (Bld) [#/Vol] 4.09 10*6/uL 4.6-6.[address] [facility] Work Phone: Blood hemoglobin measurement (mass/volume)on 02-12-2022 Hemoglobin (Bld) [Mass/Vol] 13.2 g/dL 13.0-16.5 [facility] Work Phone: Blood lymphocytes/100 leukoc yteson 02-12-2022 Lymphocytes/100 WBC (Bld) 23.9 % 19-41 [facility] Work Phone: Blood monocytes/100 leukocyt eson 02-12-2022 Monocytes/100 WBC (Bld) 8.1 % 0-10 [facility] Work Phone: Blood platelet mean volumeon 02-12-2022 Platelet mean volume (Bld) [Entitic vol] 8.7 fL 6.2-12.0 [facility] Work Phone: Determination of erythrocyte mean corpuscular volume (MCV)on 02-12-2022 MCV (RBC) [Entitic vol] 94.4 fL 80-94 [facility] Work Phone: Hematocrit Auto (Bld) [Volum e fraction]on 02-12-2022 Hematocrit (Bld) [Volume fraction] 38.6 % 40-54 [facility] Work Phone: Laboratory - Chemistry and C hemistry - challengeon 02-12-2022 CO2 [Moles/Vol] 27.0 mmol/L 21.0-32.0 [facility] Work Phone: Urea nitrogen/Creatinine [Mass ratio] 25.9 mg/mg 10-20 [facility] Work Phone: Laboratory - Hematology and Cell countson 02-12-2022 Erythrocyte distribution width (RBC) [Entitic vol] 42.9 fL 35.1-43.9 [facility] Work Phone: Erythrocyte distribution width (RBC) [Ratio] 12.3 % 11.6-14.6 [facility] Work Phone: Immature granulocytes/100 WBC (Bld) 0.400 % 0.0-0.9 [facility] Work Phone: Comment on above: IG% - Immature Granu locytes (promyelocytes, myelocytes and metamyelocytes) > 1% indicates that a LEFT SHIFT is Present. MCH (RBC) [Entitic mass] 32.3 pg 27.0-32.0 [facility] Work Phone: Nucleated RBC/100 WBC (Bld) [Ratio] 0 % 0-5 [facility] Work Phone: MCHC Auto (RBC) [Mass/Vol]on 02-12-2022 MCHC (RBC) [Mass/Vol] 34.2 g/dL 32-36 [facility] Work Phone: No Panel Informationon 02-12 Estimated Creatinine Clearance Calc 87.09 ml/min [facility] Work Phone: Estimated GFR (MDRD) Amer 125 mL/min >60 [facility] Work Phone: Comment on above: GFR Calc Estimated GFR (MDRD) Non-Af Amer 103 mL/min >60 [facility] Work Phone: Comment on above: Non- GFR Calc Platelets bldon 02-12-2022 Platelets (Bld) [#/Vol] 313 10*3/uL 150-450 [facility] Work Phone: Serum or plasma calcium micah urement (mass/volume)on 02-12-2022 Calcium [Mass/Vol] 8.5 mg/dL 8.5-10.1 [facility] Work Phone: Serum or plasma creatinine m easurement (mass/volume)on 02-12-2022 Creatinine [Mass/Vol] 0.85 mg/dL 0.70-1.30 [facility] Work Phone: Comment on above: The validity of the calculated GFR & GFRAA in patients over 70 years has not been determined. Clinical correlation is essential. Serum or plasma urea nitroge n measurement (mass/volume)on 02-12-2022 Urea nitrogen [Mass/Vol] 22 mg/dL 7-18 [facility] Work Phone: Thin prep Papanicolaou smear with manual screeningon 02-12-2022 Thin prep Papanicolaou smear with manual screening 6 5-15 [facility] Work Phone: ED Pat Eduon 08-04-2019 ED Pat Edu [facility] Emergency Department [address], [place] [id number] Emergency Department Discharge Instructions MICHAEL MCNEILL, Please provide this information to your Primary Care/Specialist Name: MARKELLSE MICHAEL Boland Current Date : 08/04/2019 01:15:09 : 1975 Primary Care Physician: Physician, Gayathri PCP Diagnosis : Follow-Up Instructions: MICHAEL MCNEILL has been given these follow-up instructions: Laboratory Orders: None Ordered Radiology Orders: Name: Status: XR Chest 2 Views Completed Diagnostic Tests: None Ordered Procedure(s) and Patient Education(s) : [facility] List (Custom); Asthma, Acute Bronchospasm EMERGENCY SERVICES MEDICATION LIST Lista de Medicaciones de los Servicios de Emergencia Name MICHAEL MCNEILL MRN ([facility])-[id number] Acct# PLEASE READ THE FOLLOWING REGARDING YOUR [...] doses are changed, or new medications (including [id number] products) are added. If you have any [...] UNTIL YOU TALK TO YOUR DOCTOR None [facility] Emergency Department [address] [place], [place] [id number] Emergency Department Discharge Instructions Name: MICHAEL MCNEILL Current Date:08/04/2019 01:15:09 :1975 Primary Physician:Physician, No PCP We would like to thank you for choosing [facility] for your emergency medical needs. We [...] health of those around you. Call the [place] [employer] at 0-848-KZTH-USA or the [place] [employer] at 1-000-SJT-3691 for more information. High blood pressure: Your [...] deadly infections. Discuss this with your child's substation wireman, or Public Health Department. Your family practice doctor can determine if you need pneumonia or flu vaccine. [facility] Department can be reached at . Substance Abuse Program: Concerns with addiction to alcohol, benzodiazepines (Ativan or Xanax) and Opiates (Heroin, Percocet, OxyContin, Methadone or Fentanyl)? [facility] offers an inpatient Substance Abuse Program to help treat the symptoms associated with medical detoxification of addictive substances. The new program offers care for non- adults (18 and older) looking to break the chain to addictive chemicals. The Substance Abuse Program is a voluntary inpatient admission and it starts with a pre-screening phone call to a social staff worker. During the call, goals and objectives for recovery and how the patient will transition to outpatient care will be established. Please call [phone] to get help today. Domestic Violence: If [...] suicide hotline, anytime day or night, at 7-145-157-FSLU. Community Manager Appointment: You may be contacted by your local fire department for a follow up visit from a community tool and die maker apprentice. The community tool and die maker apprentice can help with a home safety check; follow up care, and general home care management. Pharmacy Information: Below is a list of 24 hour pharmacies that we are aware of. We suggest that you call the specific pharmacy for their hours before traveling to a location. Hours may vary on holidays. [facility] [address] [place], [place] [phone] [place], [place] [address] [phone] [place], [place] [phone] [address] [place], [place] [phone] [address] [place], [place] [phone] [address] [place], [place] [phone] [address] [place], [place] [phone] Take all medications as directed. If you need prescription assistance, contact the following agencies: ?? Partnership for Prescription Assistance at or www.pparx.org ?? [place] at or www.Akoshastrx.org ?? www.[employer] is a site with many valuable coupons Patient Education Materials MICHAEL MCNEILL has been given the following patient education materials: [facility] Emergency Department [facility]. [facility]. offers comprehensive and integrated primary care medical services. We welcome the opportunity to provide follow-up care for your family, now that you've been discharged from the hospital. We offer transportation and engineering specialist technician services. If you need either of these services, please let us know when you call to make your appointment and we'll be happy to make these arrangements for you. We count it a privilege to have the opportunity to care for you at any one of our conveniently located health center locations below. [facility]. can provide you with: ?? Family Practice medical care for adults and children including physicals and immunizations ?? and care, SHANK STITCHER, Podiatry and Pediatric services ?? Referrals to specialists when needed ?? Dental, Vision and Prescription services ?? Lab Services such as cholesterol, glucose, sickle cell, lead poisoning, , PAP, and HIV tests ?? Health education and nutritional counseling ?? [email or web address]. provides health care to the homeless. For further information contact: [facility] [phone] Health Insurance plans accepted by [facility]: [employer] (BCCP), Aetna Insurance, [place] Blue Cross and Blue Shield, Care source, [employer], Medicaid, Medical Wiley, Medicare, Medicare-[place], [place] and [facility] Please call any location for further information. [facility]. provides services regardless of ability to pay. If you don't have insurance coverage, your cost will be based on your income and family size. [facility] [address] [place] [phone] [facility] [address] [place] [address] Chi Lara [facility] [address] [place] [address] [facility] [address] [phone] [place] [id number] [facility], [address] [place] [address] [facility]. Administration: [address] [facility] [address] [place], [place] [address] [facility]. is funded by the U.S. Department of Health and Human Services as a Federally Qualified [facility] providing primary health care services to individuals and families in the [facility]. Allergy Asthma, Acute Bronchospasm Acute bronchospasm caused [...] smoke. ???Air pollutants such as dust, household apartment leasing specialist, hair sprays, aerosol sprays, paint fumes, strong [...] were prescribed any new medicines, let your landscape engineer know about the visit and how you [...] 01/03/2008 Document Revised: 09/23/2014 Document Reviewed: 03/26/2014 [employer] Interactive Patient Education ?2016 [employer] <><><><><><><><><><><>< ><><><><><><><><><><><> <><><><><><><><><><> Patient Visit Summary Signature MICHAEL MCNEILL has been given the following list of patient education materials, prescriptions and follow-up instructions: OSITO Cameron JIMMY D, have received the above patient education materials/instructions and have verbalized understanding: Date Time Patient Signature Date Time Provider Signature Normal [facility] XR Chest 2 Viewson 9 XR [...] x-ray after completion of therapy is suggested. [facility] thanks you for the opportunity to care for your patient. Workstation ID: [id number] FINAL REPORT Dictated By: Lima Siddiqi MD 08/04/2019 01:22 Assigned Physician: Lima Siddiqi MD Reviewed and Electronically Signed By: Lima Siddiqi MD 08/04/2019 01:24 Transcribed by: KASIA 08/04/2019 01:22 Technologist: LUCITA [facility] Comment on above: Order Comment: Unable to get pt, respiratory in room 08/04/2019 00:59:01 EDT Amphetamine GCMS Confirmon 0 06-07-2018 Amphetamine GCMS Confirm Positive Normal [facility] Comment on above: Result Comment: LC/M S confirmed the presence of:AMPHETAMINEMETHAMPHETAMINEThis Liquid Chromatography Mass Spectrometry (LC/MS/MS) test was developed and its performance characteristics determined by Toxicology Laboratory at [facility].It has not been cleared or approved by the FDA. The laboratory is regulated under CLIA as qualified to perform high-complexity testing. This test is used for clinical purposes. It should not be regarded as investigational or for research. Performed By: #### C BCDFE, LIVPE, C7EDE, ETOHE, TSHE, FT4E ####[place] [address] Drug Panel 10, Urine Medical - UHEon 06-06-2018 Amphetamine/Methamphet amine Positive Normal 500 [facility] Comment on above: Result Comment: Non- forensic purpose, confirmation report to follow. Performed By: #### 1 0DRGE ####[place] [id number]#### AMPMS ####[facility] [place] [address], [place] [address]JgtlquSelect Medical Specialty Hospital [facility] [place] [address] Barbiturates NONE DETECTED Normal 200 [facility] Comment on above: Performed By: #### 1 0DRGE ####[place] [id number]#### AMPMS ####[facility] [place] [address], [place] [address]EuzbiySelect Medical Specialty Hospital - [facility]umbull[address] [place] [address] Benzodiazepines NONE DETECTED Normal 200 [facility] Comment on above: Performed By: #### 1 0DRGE ####[address] [address]#### AMPMS ####[facility] [address]XhgrleSelect Medical Specialty Hospital - [facility]umbull[address] [place] [address] Buprenorphine NONE DETECTED Normal 5 [facility] Comment on above: Performed By: #### 1 0DRGE ####[address] [address]#### AMPMS ####[facility] [place] [address]BiwyttSelect Medical Specialty Hospital [facility] [place] [address] Cannabinoids Screen Ql (U) NONE DETECTED Normal 50 [facility] Comment on above: Performed By: #### 1 0DRGE ####[address] [address]#### AMPMS ####[facility] [place] [address], [place] [address]FfbfzlSelect Medical Specialty Hospital [facility] [facility] [place] [address] Cocaine/Metabolites NONE DETECTED Normal 150 [facility] Comment on above: Performed By: #### 1 0DRGE ####[address] [address]#### AMPMS ####[facility] [place] [address], [place] [address]FxulelSelect Medical Specialty Hospital - [facility] [place] [address] COMMENT Urine: For medical purposes only. Positive results unconfirmed unless otherwise noted. Normal [facility] Comment on above: Performed By: #### 1 0DRGE ####[address] [address]#### AMPMS ####[facility] [place] [address], [place] [address]WbrzkhSelect Medical Specialty Hospital - Trumbull[address] [place] [address] Fentanyl NONE DETECTED Normal 2 [facility] Comment on above: Performed By: #### 1 0DRGE ####[address] [address]#### AMPMS ####[facility] [place] [address], [place] [address]UjpivsSelect Medical Specialty Hospital - [facility] [place] [address] Methadone NONE DETECTED Normal 300 [facility] Comment on above: Performed By: #### 1 0DRGE ####[address] [address]#### AMPMS ####[facility] [place] [address], [place] [address]QvstmuSelect Medical Specialty Hospital - [facility]ull[address] [place] [address] Opiates NONE DETECTED Normal 300 [facility] Comment on above: Performed By: #### 1 0DRGE ####[address] [place] [address]#### AMPMS ####[facility] [place] [address]QvrmptSelect Medical Specialty Hospital - Trumbull[address] [place] [address] Oxycodone NONE DETECTED Normal 100 [facility] Comment on above: Performed By: #### 1 0DRGE ####[place] [id number]#### AMPMS ####[facility] [place], [place] [address]TjoqaxSelect Medical Specialty Hospital - Trumbull[address] [place], [place] [address] Urinalysis - Eon 8 Appearance Nom (U) Clear Normal Clear [facility] Comment on above: Performed By: #### U AE ####[place] [address] Bacteria Present Abnormal Absent [facility] Comment on above: Performed By: #### U AE ####[place] [address] Blood Urine Large Abnormal Negative [facility] Comment on above: Performed By: #### U AE ####[address] [address] Color Yellow Normal Yellow [facility] Comment on above: Performed By: #### U AE ####[address] [address] COMMENT URINE Mucus Normal [facility] Comment on above: Performed By: #### U AE ####[place] [address] Glucose Ql (U) Negative Normal Negative [facility] Comment on above: Performed By: #### U AE ####[address] [address] Ketones Ql (U) Trace Abnormal Negative [facility] Comment on above: Performed By: #### U AE ####[place] [address] Leukocyte Esterase Negative Normal Negative [facility] Comment on above: Performed By: #### U AE ####[place] [address] Nitrites Urine Negative Normal Negative [facility] Comment on above: Performed By: #### U AE ####[place] [address] pH Test strip (U) 6.0 [pH] Normal 5.0-7.0 [facility] Comment on above: Performed By: #### U AE ####[place] [address] Protein Urine Negative Normal Negative [facility] Comment on above: Performed By: #### U AE ####[place] [address] RBC LM.HPF #/area (Urine sed) 0-2 Normal 0-2 [facility] Comment on above: Performed By: #### U AE ####[place] [address] Specific [place] urine >1.030 Normal 1.001-1.035 [facility] Comment on above: Performed By: #### U AE ####[place] [address] Squamous Epithelial 1+ /HPF Normal [facility] Comment on above: Performed By: #### U AE ####[place] [address] Urobilinogen urine 1.0 EU/dL Normal <2.0 [facility] Comment on above: Performed By: #### U AE ####[place] [address] WBC LM.HPF #/area (Urine sed) 0-5 Normal 0-5 [facility] Comment on above: Performed By: #### U AE ####[place] [address] CBC WITH DIFF [place] 06-05- 018 Abs Baso 0.09 K/uL High <0.09 [facility] Comment on above: Performed By: #### C BCDFE, LIVPE, C7EDE, ETOHE, TSHE, FT4E ####[place] [address] Abs Eos 0.87 K/uL High <0.55 [facility] Comment on above: Performed By: #### C BCDFE, LIVPE, C7EDE, ETOHE, TSHE, FT4E ####[place] [address] Abs [place] 0.55 K/uL Normal 0.30-0.82 [facility] Comment on above: Performed By: #### C BCDFE, LIVPE, C7EDE, ETOHE, TSHE, FT4E ####[place] [address] Basophils/100 WBC Auto (Bld) 0.9 % Normal [facility] Comment on above: Performed By: #### C BCDFE, LIVPE, C7EDE, ETOHE, TSHE, FT4E ####[place] [address] DIFFERENTIAL TYPE Electronic Differential Normal [facility] Comment on above: Performed By: #### C BCDFE, LIVPE, C7EDE, ETOHE, TSHE, FT4E ####[place] [address] Eosinophils/100 WBC Auto (Bld) 8.8 % Normal [facility] Comment on above: Performed By: #### C BCDFE, LIVPE, C7EDE, ETOHE, TSHE, FT4E ####[place] [address] Hematocrit Auto Volume Fraction (Bld) 37.5 % Low 40.1-51.0 [facility] Comment on above: Performed By: #### C BCDFE, LIVPE, C7EDE, ETOHE, TSHE, FT4E ####[place] [address] Hemoglobin mass conc (Bld) 13.0 g/dL Low 13.7-17.5 [facility] Comment on above: Performed By: #### C BCDFE, LIVPE, C7EDE, ETOHE, TSHE, FT4E ####[address] [address] IMMATURE GRANS % 0.3 % Normal [facility] Comment on above: Performed By: #### C BCDFE, LIVPE, C7EDE, ETOHE, TSHE, FT4E ####[place] [address] IMMATURE GRANS ABSOLUTE <0.04 Normal <0.04 [facility] Comment on above: Performed By: #### C BCDFE, LIVPE, C7EDE, ETOHE, TSHE, FT4E ####[place] [address] Lymphocytes Auto #/vol (Bld) 1.17 10*3/uL Low 1.32-3.57 [facility] Comment on above: Performed By: #### C BCDFE, LIVPE, C7EDE, ETOHE, TSHE, FT4E ####[place] [address] Lymphocytes/100 WBC Auto (Bld) 11.9 % Normal [facility] Comment on above: Performed By: #### C BCDFE, LIVPE, C7EDE, ETOHE, TSHE, FT4E ####[address] [address] MCV Auto Entitic volume (RBC) 92.8 fL High 79.0-92.2 [facility] Comment on above: Performed By: #### C BCDFE, LIVPE, C7EDE, ETOHE, TSHE, FT4E ####[place] [address] Mean Cell Hgb 32.2 pg Normal 25.7-32.2 [facility] Comment on above: Performed By: #### C BCDFE, LIVPE, C7EDE, ETOHE, TSHE, FT4E ####[place] [address] Mean Cell Hgb Conc 34.7 g/dL Normal 32.3-36.5 [facility] Comment on above: Performed By: #### C BCDFE, LIVPE, C7EDE, ETOHE, TSHE, FT4E ####[place] [address] Monocytes/100 WBC Auto (Bld) 5.6 % Normal [facility] Comment on above: Performed By: #### C BCDFE, LIVPE, C7EDE, ETOHE, TSHE, FT4E ####[place] [address] NEUTROPHIL SEGMENTED 72.5 % Normal [facility] Comment on above: Performed By: #### C BCDFE, LIVPE, C7EDE, ETOHE, TSHE, FT4E ####[place] [address] Nucleated RBC #/vol (Bld) 0.0 /100 WBC Normal 0.0-0.2 [facility] Comment on above: Performed By: #### C BCDFE, LIVPE, C7EDE, ETOHE, TSHE, FT4E ####[place] [address] Platelet mean volume Auto Entitic volume (Bld) 8.9 fL Low 9.4-12.4 [facility] Comment on above: Performed By: #### C BCDFE, LIVPE, C7EDE, ETOHE, TSHE, FT4E ####[place] [address] Platelets Auto #/vol (Bld) 366 10*3/uL High 163-337 [facility] Comment on above: Performed By: #### C BCDFE, LIVPE, C7EDE, ETOHE, TSHE, FT4E ####[place] [address] RBC Auto #/vol (Bld) 13.4 % Normal 11.6-14.4 [facility] Comment on above: Performed By: #### C BCDFE, LIVPE, C7EDE, ETOHE, TSHE, FT4E ####[place] [address] RBC Auto #/vol (Bld) 4.04 10*6/uL Low 4.63-6.08 [facility] Comment on above: Performed By: #### C BCDFE, LIVPE, C7EDE, ETOHE, TSHE, FT4E ####[place] [address] SEGS + Bands,Absolute 7.16 K/uL High 1.78-5.38 [facility] Comment on above: Performed By: #### C BCDFE, LIVPE, C7EDE, ETOHE, TSHE, FT4E ####[place] [address] WBC Auto #/vol (Bld) 9.87 10*3/uL High 4.23-9.07 [facility] Comment on above: Performed By: #### C BCDFE, LIVPE, C7EDE, ETOHE, TSHE, FT4E ####[place] [address] CHEM 7 EDon 06-05-2018 Anion gap 3 molar conc 14 mmol/L Normal 7-17 [facility] Comment on above: Performed By: #### C BCDFE, LIVPE, C7EDE, ETOHE, TSHE, FT4E ####[place] [address] Chloride molar conc 107 mmol/L Normal 98-108 [facility] Comment on above: Performed By: #### C BCDFE, LIVPE, C7EDE, ETOHE, TSHE, FT4E ####[place] [address] CO2 molar conc 25 mmol/L Normal 22-30 [facility] Comment on above: Performed By: #### C BCDFE, LIVPE, C7EDE, ETOHE, TSHE, FT4E ####[place] [address] Creatinine mass conc 1.05 mg/dL Normal 0.70-1.30 [facility] Comment on above: Performed By: #### C BCDFE, LIVPE, C7EDE, ETOHE, TSHE, FT4E ####[place] [address] Est GFR, >60 Normal >60 [facility] Comment on above: Performed By: #### C BCDFE, LIVPE, C7EDE, ETOHE, TSHE, FT4E ####[place] [address] Est GFR,non >60 Normal >60 [facility] Comment on above: Performed By: #### C BCDFE, LIVPE, C7EDE, ETOHE, TSHE, FT4E ####[place] [address] Glucose mass conc 143 mg/dL High 70-99 [facility] Comment on above: Performed By: #### C BCDFE, LIVPE, C7EDE, ETOHE, TSHE, FT4E ####[place] [address] Osmolality 305 mOsm/kg Normal 278-305 [facility] Comment on above: Performed By: #### C BCDFE, LIVPE, C7EDE, ETOHE, TSHE, FT4E ####[place] [address] Potassium molar conc 3.4 mmol/L Low 3.5-5.0 [facility] Comment on above: Performed By: #### C BCDFE, LIVPE, C7EDE, ETOHE, TSHE, FT4E ####[place] [address] Sodium molar conc 143 mmol/L Normal 133-143 [facility] Comment on above: Performed By: #### C BCDFE, LIVPE, C7EDE, ETOHE, TSHE, FT4E ####[place] [address] Urea nitrogen mass conc 28 mg/dL High 7-22 [facility] Comment on above: Performed By: #### C BCDFE, LIVPE, C7EDE, ETOHE, TSHE, FT4E ####[place] [address] Urea nitrogen/Creatinine mass ratio 27 mg/mg Normal [facility] Comment on above: Performed By: #### C BCDFE, LIVPE, C7EDE, ETOHE, TSHE, FT4E ####[place] [address] [facility] Ethyl Alcohol, blood <10 Normal <10 [facility] Comment on above: Result Comment: For Medical Purposes Only, Non forensic Performed By: #### C BCDFE, LIVPE, C7EDE, ETOHE, TSHE, FT4E ####[place] [address] [facility] T4 free mass conc 1.14 ng/dL Normal 0.89-1.76 [facility] Comment on above: Performed By: #### C BCDFE, LIVPE, C7EDE, ETOHE, TSHE, FT4E ####[place] [address] [facility] Lactate,plasma - E 0.9 mmol/L Normal 0.5-2.2 [facility] Comment on above: Performed By: #### L ACTE ####[place] [address] Liver Profile - [facility] 2017 Albumin mass conc 4.5 g/dL Normal 3.5-5.0 [facility] Comment on above: Performed By: #### C BCDFE, LIVPE, C7EDE, ETOHE, TSHE, FT4E ####[place] [address] ALP enzyme act/vol 54 U/L Normal 32-126 [facility] Comment on above: Performed By: #### C BCDFE, LIVPE, C7EDE, ETOHE, TSHE, FT4E ####[place] [address] ALT enzyme act/vol 93 U/L High 10-52 [facility] Comment on above: Performed By: #### C BCDFE, LIVPE, C7EDE, ETOHE, TSHE, FT4E ####[place] [address] AST enzyme act/vol 86 U/L High 14-40 [facility] Comment on above: Performed By: #### C BCDFE, LIVPE, C7EDE, ETOHE, TSHE, FT4E ####[place] [address] Bilirubin mass conc 1.0 mg/dL Normal <1.5 [facility] Comment on above: Performed By: #### C BCDFE, LIVPE, C7EDE, ETOHE, TSHE, FT4E ####[place] [address] Bilirubin.direct mass conc 0.3 mg/dL High <0.3 [facility] Comment on above: Performed By: #### C BCDFE, LIVPE, C7EDE, ETOHE, TSHE, FT4E ####[place] [address] Protein mass conc 7.7 g/dL Normal 6.4-8.3 [facility] Comment on above: Performed By: #### C BCDFE, LIVPE, C7EDE, ETOHE, TSHE, FT4E ####[place] [address] TSH -[facility] 06-05-2018 Thyrotropin Qn 0.741 uIU/mL Normal 0.550-4.780 [facility] Comment on above: Performed By: #### C BCDFE, LIVPE, C7EDE, ETOHE, TSHE, FT4E ####[place] [address] XR CHEST AP PORTABLE EDon XR CHEST [...] represent scarring. Otherwiseno acute cardiopulmonary findings. Normal [facility] COVID-19 virus antigen assay SARS-CoV-2 (COVID-19) Ag IA.rapid Ql (Resp) [facility] Work Phone: Influenza virus A and B and SARS-CoV-2 (COVID-19) Ag panel - Upper respiratory specim SARS-CoV-2 & FLU Antigen (Rapid) Influenzae A [facility] Work Phone: No Panel Information SARS-CoV-2 & FLU Antigen (Rapid) [facility] Work Phone: Vital Signs Date Time Vital Sign Value Performing Clinician Facility 04-18-2025 15:18-0400 Body temperature 98.7 [degF] No Primary Care Physician [facility] 04-18-2025 15:18-0400 Diastolic blood pressure 74 mm[Hg] No Primary Care Physician [facility] 04-18-2025 15:18-0400 Heart rate 66 /min No Primary Care Physician [facility] 04-18-2025 15:18-0400 Respiratory rate 16 /min No Primary Care Physician [facility] 04-18-2025 15:18-0400 SaO2% (BldA) [Mass fraction] 97 % No Primary Care Physician [facility] 04-18-2025 15:18-0400 Systolic blood pressure 109 mm[Hg] No Primary Care Physician [facility] 04-18-2025 10:00-0400 Body temperature 98.5 [degF] No Primary Care Physician [facility] 04-18-2025 10:00-0400 Heart rate 67 /min No Primary Care Physician [facility] 04-18-2025 10:00-0400 Systolic blood pressure 100 mm[Hg] No Primary Care Physician [facility] 04-18-2025 06:00-0400 Body mass index (BMI) [Ratio] 20.7 kg/m2 No Primary Care Physician [facility] 04-18-2025 06:00-0400 Body weight 58.6 kg No Primary Care Physician [facility] 04-17-2025 10:43-0400 Body height 167.64 cm No Primary Care Physician [facility] 04-16-2025 23:11-0400 Body temperature 98.3 [degF] No Primary Care Physician [facility] 04-16-2025 23:11-0400 Diastolic blood pressure 88 mm[Hg] No Primary Care Physician [facility] 04-16-2025 23:11-0400 Heart rate 82 /min No Primary Care Physician [facility] 04-16-2025 23:11-0400 Respiratory rate 16 /min No Primary Care Physician [facility] 04-16-2025 23:11-0400 SaO2% (BldA) [Mass fraction] 100 % No Primary Care Physician [facility] 04-16-2025 23:11-0400 Systolic blood pressure 128 mm[Hg] No Primary Care Physician [facility] 04-16-2025 21:32-0400 Body height 167.64 cm No Primary Care Physician [facility] 04-16-2025 21:32-0400 Body mass index (BMI) [Ratio] 19.8 kg/m2 No Primary Care Physician [facility] 04-16-2025 21:32-0400 Body weight 55.88 kg No Primary Care Physician [facility] 03-30-2025 10:44-0400 Body height 167.64 cm No Primary Care Physician [facility] 03-30-2025 10:44-0400 Body mass index (BMI) [Ratio] 20.8 kg/m2 No Primary Care Physician [facility] 03-30-2025 10:44-0400 Body temperature 98.4 [degF] No Primary Care Physician [facility] 03-30-2025 10:44-0400 Body weight 58.64 kg No Primary Care Physician [facility] 03-30-2025 10:44-0400 Diastolic blood pressure 78 mm[Hg] No Primary Care Physician [facility] 03-30-2025 10:44-0400 Heart rate 86 /min No Primary Care Physician [facility] 03-30-2025 10:44-0400 Respiratory rate 19 /min No Primary Care Physician [facility] 03-30-2025 10:44-0400 SaO2% (BldA) [Mass fraction] 98 % No Primary Care Physician [facility] 03-30-2025 10:44-0400 Systolic blood pressure 110 mm[Hg] No Primary Care Physician [facility] 03-29-2025 22:40-0400 Body temperature 97.2 [degF] No Primary Care Physician [facility] 03-29-2025 22:40-0400 Diastolic blood pressure 90 mm[Hg] No Primary Care Physician [facility] 03-29-2025 22:40-0400 Heart rate 85 /min No Primary Care Physician [facility] 03-29-2025 22:40-0400 Respiratory rate 16 /min No Primary Care Physician [facility] 03-29-2025 22:40-0400 SaO2% (BldA) [Mass fraction] 100 % No Primary Care Physician [facility] 03-29-2025 22:40-0400 Systolic blood pressure 139 mm[Hg] No Primary Care Physician [facility] 03-29-2025 17:47-0400 Body height 167.64 cm No Primary Care Physician [facility] 03-29-2025 17:47-0400 Body mass index (BMI) [Ratio] 22.9 kg/m2 No Primary Care Physician [facility] 03-29-2025 17:47-0400 Body weight 64.5 kg No Primary Care Physician [facility] 01-19-2025 15:32-0400 Body temperature 98 [degF] No Primary Care Physician [facility] 01-19-2025 15:32-0400 Diastolic blood pressure 75 mm[Hg] No Primary Care Physician [facility] 01-19-2025 15:32-0400 Heart rate 88 /min No Primary Care Physician [facility] 01-19-2025 15:32-0400 Respiratory rate 16 /min No Primary Care Physician [facility] 01-19-2025 15:32-0400 SaO2% (BldA) [Mass fraction] 96 % No Primary Care Physician [facility] 01-19-2025 15:32-0400 Systolic blood pressure 124 mm[Hg] No Primary Care Physician [facility] 01-19-2025 13:46-0400 Body height 167.64 cm No Primary Care Physician [facility] 01-19-2025 13:46-0400 Body mass index (BMI) [Ratio] 20 kg/m2 No Primary Care Physician [facility] 01-19-2025 13:46-0400 Body weight 56.24 kg No Primary Care Physician [facility] 12-13-2024 13:44-0400 Body temperature 96.6 [degF] No Primary Care Physician [facility] 12-13-2024 13:44-0400 Diastolic blood pressure 90 mm[Hg] No Primary Care Physician [facility] 12-13-2024 13:44-0400 Heart rate 88 /min No Primary Care Physician [facility] 12-13-2024 13:44-0400 Respiratory rate 16 /min No Primary Care Physician [facility] 12-13-2024 13:44-0400 SaO2% (BldA) [Mass fraction] 100 % No Primary Care Physician [facility] 12-13-2024 13:44-0400 Systolic blood pressure 148 mm[Hg] No Primary Care Physician [facility] 12-13-2024 11:18-0400 Body height 167.64 cm No Primary Care Physician [facility] 12-13-2024 11:18-0400 Body mass index (BMI) [Ratio] 20.5 kg/m2 No Primary Care Physician [facility] 12-13-2024 11:18-0400 Body weight 57.6 kg No Primary Care Physician [facility] 12-04-2024 16:39-0500 Body mass index (BMI) [Ratio] 24.7 kg/m2 No Primary Care Physician [facility] 12-04-2024 16:39-0500 Body temperature 98.1 [degF] No Primary Care Physician [facility] 12-04-2024 16:39-0500 Body weight 69.39 kg No Primary Care Physician [facility] 12-04-2024 16:39-0500 Diastolic blood pressure 77 mm[Hg] No Primary Care Physician [facility] 12-04-2024 16:39-0500 Heart rate 89 /min No Primary Care Physician [facility] 12-04-2024 16:39-0500 Respiratory rate 16 /min No Primary Care Physician [facility] 12-04-2024 16:39-0500 SaO2% (BldA) [Mass fraction] 98 % No Primary Care Physician [facility] 12-04-2024 16:39-0500 Systolic blood pressure 90 mm[Hg] No Primary Care Physician [facility] 2024 16:49-0500 Body temperature 97.8 [degF] No Primary Care Physician [facility] 2024 16:49-0500 Diastolic blood pressure 82 mm[Hg] No Primary Care Physician [facility] 2024 16:49-0500 Heart rate 96 /min No Primary Care Physician [facility] 2024 16:49-0500 Respiratory rate 20 /min No Primary Care Physician [facility] 2024 16:49-0500 SaO2% (BldA) [Mass fraction] 93 % No Primary Care Physician [facility] 2024 16:49-0500 Systolic blood pressure 135 mm[Hg] No Primary Care Physician [facility] 2024 12:43-0500 Body mass index (BMI) [Ratio] 20.1 kg/m2 No Primary Care Physician [facility] 2024 12:43-0500 Body weight 56.69 kg No Primary Care Physician [facility] 11-20-2024 16:46-0500 Body weight 58.5 kg No Primary Care Physician [facility] 11-20-2024 15:34-0500 Body mass index (BMI) [Ratio] 20.8 kg/m2 No Primary Care Physician [facility] 11-20-2024 15:34-0500 Body temperature 98.2 [degF] No Primary Care Physician [facility] 11-20-2024 15:34-0500 Diastolic blood pressure 81 mm[Hg] No Primary Care Physician [facility] 11-20-2024 15:34-0500 Heart rate 98 /min No Primary Care Physician [facility] 11-20-2024 15:34-0500 Respiratory rate 18 /min No Primary Care Physician [facility] 11-20-2024 15:34-0500 SaO2% (BldA) [Mass fraction] 96 % No Primary Care Physician [facility] 11-20-2024 15:34-0500 Systolic blood pressure 111 mm[Hg] No Primary Care Physician [facility] 11-12-2024 11:04-0500 Heart rate 81 /min No Primary Care Physician [facility] 11-12-2024 11:04-0500 Respiratory rate 14 /min No Primary Care Physician [facility] 11-12-2024 11:00-0500 Diastolic blood pressure 67 mm[Hg] No Primary Care Physician [facility] 11-12-2024 11:00-0500 Inhaled oxygen concentration 25 % No Primary Care Physician [facility] 11-12-2024 11:00-0500 SaO2% (BldA) [Mass fraction] 95 % No Primary Care Physician [facility] 11-12-2024 11:00-0500 Systolic blood pressure 111 mm[Hg] No Primary Care Physician [facility] 11-12-2024 09:42-0500 Body weight 56.1 kg No Primary Care Physician [facility] 11-12-2024 08:00-0500 Body temperature 97.6 [degF] No Primary Care Physician [facility] 11-12-2024 05:15-0500 Body mass index (BMI) [Ratio] 19.8 kg/m2 No Primary Care Physician [facility] 11-11-2024 20:25-0500 Inhaled oxygen flow rate 2 L/min No Primary Care Physician [facility] 10-23-2024 04:00-0500 Body temperature 98.6 [degF] No Primary Care Physician [facility] 10-23-2024 04:00-0500 Diastolic blood pressure 71 mm[Hg] No Primary Care Physician [facility] 10-23-2024 04:00-0500 Heart rate 87 /min No Primary Care Physician [facility] 10-23-2024 04:00-0500 Respiratory rate 16 /min No Primary Care Physician [facility] 10-23-2024 04:00-0500 SaO2% (BldA) [Mass fraction] 94 % No Primary Care Physician [facility] 10-23-2024 04:00-0500 Systolic blood pressure 119 mm[Hg] No Primary Care Physician [facility] 10-22-2024 13:29-0500 Body weight 55 kg No Primary Care Physician [facility] 10-21-2024 20:51-0500 Body mass index (BMI) [Ratio] 19 kg/m2 No Primary Care Physician [facility] 10-21-2024 19:38-0500 Inhaled oxygen flow rate 3 L/min No Primary Care Physician [facility] 10-21-2024 17:05-0500 Inhaled oxygen concentration 40 % No Primary Care Physician [facility] 09-19-2024 19:47-0500 Body temperature 98.1 [degF] No Primary Care Physician [facility] 09-19-2024 19:47-0500 Diastolic blood pressure 81 mm[Hg] No Primary Care Physician [facility] 09-19-2024 19:47-0500 Heart rate 77 /min No Primary Care Physician [facility] 09-19-2024 19:47-0500 Respiratory rate 19 /min No Primary Care Physician [facility] 09-19-2024 19:47-0500 SaO2% (BldA) [Mass fraction] 93 % No Primary Care Physician [facility] 09-19-2024 19:47-0500 Systolic blood pressure 121 mm[Hg] No Primary Care Physician [facility] 09-19-2024 17:47-0500 Body mass index (BMI) [Ratio] 25.3 kg/m2 No Primary Care Physician [facility] 09-19-2024 17:47-0500 Body weight 73.45 kg No Primary Care Physician [facility] 09-07-2024 12:55-0500 Body temperature 98.6 [degF] No Primary Care Physician [facility] 09-07-2024 12:55-0500 Diastolic blood pressure 76 mm[Hg] No Primary Care Physician [facility] 09-07-2024 12:55-0500 Heart rate 78 /min No Primary Care Physician [facility] 09-07-2024 12:55-0500 Respiratory rate 16 /min No Primary Care Physician [facility] 09-07-2024 12:55-0500 SaO2% (BldA) [Mass fraction] 99 % No Primary Care Physician [facility] 09-07-2024 12:55-0500 Systolic blood pressure 126 mm[Hg] No Primary Care Physician [facility] 09-07-2024 11:39-0500 Body mass index (BMI) [Ratio] 20.5 kg/m2 No Primary Care Physician [facility] 09-07-2024 11:39-0500 Body weight 59.42 kg No Primary Care Physician [facility] 10-31-2023 09:19-0500 Body temperature 98.3 [degF] No Primary Care Physician [facility] 10-31-2023 09:19-0500 Diastolic blood pressure 89 mm[Hg] No Primary Care Physician [facility] 10-31-2023 09:19-0500 Heart rate 88 /min No Primary Care Physician [facility] 10-31-2023 09:19-0500 Respiratory rate 18 /min No Primary Care Physician [facility] 10-31-2023 09:19-0500 SaO2% (BldA) [Mass fraction] 100 % No Primary Care Physician [facility] 10-31-2023 09:19-0500 Systolic blood pressure 110 mm[Hg] No Primary Care Physician [facility] 10-29-2023 05:54-0500 Body height 167.64 cm No Primary Care Physician [facility] 10-29-2023 05:54-0500 Body mass index (BMI) [Ratio] 21.5 kg/m2 No Primary Care Physician [facility] 10-29-2023 05:54-0500 Body weight 60.49 kg No Primary Care Physician [facility] 10-29-2023 05:14-0500 Body temperature 96.5 [degF] No Primary Care Physician [facility] 10-29-2023 05:14-0500 Diastolic blood pressure 58 mm[Hg] No Primary Care Physician [facility] 10-29-2023 05:14-0500 Heart rate 100 /min No Primary Care Physician [facility] 10-29-2023 05:14-0500 Respiratory rate 22 /min No Primary Care Physician [facility] 10-29-2023 05:14-0500 SaO2% (BldA) [Mass fraction] 99 % No Primary Care Physician [facility] 10-29-2023 05:14-0500 Systolic blood pressure 124 mm[Hg] No Primary Care Physician [facility] 10-29-2023 04:23-0500 Body height 167.64 cm No Primary Care Physician [facility] 10-29-2023 04:23-0500 Body mass index (BMI) [Ratio] 21.9 kg/m2 No Primary Care Physician [facility] 10-29-2023 04:23-0500 Body weight 61.6 kg No Primary Care Physician [facility] 10-15-2023 11:51-0500 Diastolic blood pressure 91 mm[Hg] No Primary Care Physician [facility] 10-15-2023 11:51-0500 Systolic blood pressure 157 mm[Hg] No Primary Care Physician [facility] 10-15-2023 11:21-0500 Body height 167.64 cm [facility] 10-15-2023 11:21-0500 Body mass index (BMI) [Ratio] 20.9 kg/m2 [facility] 10-15-2023 11:21-0500 Body temperature 96.7 [degF] [facility] 10-15-2023 11:21-0500 Body weight 58.96 kg [facility] 10-15-2023 11:21-0500 Diastolic blood pressure 130 mm[Hg] [facility] 10-15-2023 11:21-0500 Heart rate 52 /min [facility] 10-15-2023 11:21-0500 Respiratory rate 16 /min [facility] 10-15-2023 11:21-0500 SaO2% (BldA) [Mass fraction] 98 % [facility] 10-15-2023 11:21-0500 Systolic blood pressure 168 mm[Hg] [facility] 09-01-2023 01:06-0500 Heart rate 71 /min [facility] 09-01-2023 01:06-0500 Respiratory rate 16 /min [facility] 09-01-2023 01:06-0500 SaO2% (BldA) [Mass fraction] 98 % [facility] 09-01-2023 00:29-0500 Body height 167.64 cm [facility] 09-01-2023 00:29-0500 Body mass index (BMI) [Ratio] 23.3 kg/m2 [facility] 09-01-2023 00:29-0500 Body temperature 96.1 [degF] [facility] 09-01-2023 00:29-0500 Body weight 65.77 kg [facility] 09-01-2023 00:29-0500 Diastolic blood pressure 73 mm[Hg] [facility] 09-01-2023 00:29-0500 Systolic blood pressure 114 mm[Hg] [facility] 08-28-2023 10:33-0500 Body height 170.2 cm Linda Jose MD Work Phone: [facility] 08-28-2023 10:33-0500 Body temperature 97.9 [degF] Linda Jose MD Work Phone: [facility] 08-28-2023 10:33-0500 Body weight 63.87 kg Linda Jose MD Work Phone: [facility] 08-28-2023 10:33-0500 Diastolic blood pressure 84 mm[Hg] Linda Jose MD Work Phone: [facility] 08-28-2023 10:33-0500 Heart rate 109 /min Linda Jose MD Work Phone: [facility] 08-28-2023 10:33-0500 SaO2% (BldA) [Mass fraction] 96 % Linda Jose MD Work Phone: [facility] 08-28-2023 10:33-0500 Systolic blood pressure 130 mm[Hg] Linda Jose MD Work Phone: [facility] 05-29-2023 00:58-0400 Body height 167.64 cm No Primary Care Physician [facility] 05-29-2023 00:58-0400 Body mass index (BMI) [Ratio] 20.1 kg/m2 No Primary Care Physician [facility] 05-29-2023 00:58-0400 Body temperature 97.9 [degF] No Primary Care Physician [facility] 05-29-2023 00:58-0400 Body weight 56.69 kg No Primary Care Physician [facility] 05-29-2023 00:58-0400 Diastolic blood pressure 81 mm[Hg] No Primary Care Physician [facility] 05-29-2023 00:58-0400 Heart rate 100 /min No Primary Care Physician [facility] 05-29-2023 00:58-0400 Respiratory rate 20 /min No Primary Care Physician [facility] 05-29-2023 00:58-0400 SaO2% (BldA) [Mass fraction] 98 % No Primary Care Physician [facility] 05-29-2023 00:58-0400 Systolic blood pressure 120 mm[Hg] No Primary Care Physician [facility] 04-28-2023 07:58-0400 Heart rate 80 /min No Primary Care Physician [facility] 04-28-2023 05:47-0400 Body temperature 97.5 [degF] No Primary Care Physician [facility] 04-28-2023 05:47-0400 Diastolic blood pressure 79 mm[Hg] No Primary Care Physician [facility] 04-28-2023 05:47-0400 Respiratory rate 16 /min No Primary Care Physician [facility] 04-28-2023 05:47-0400 SaO2% (BldA) [Mass fraction] 98 % No Primary Care Physician [facility] 04-28-2023 05:47-0400 Systolic blood pressure 119 mm[Hg] No Primary Care Physician [facility] 04-27-2023 12:17-0400 Body height 167.64 cm No Primary Care Physician [facility] 04-27-2023 12:17-0400 Body weight 56.69 kg No Primary Care Physician [facility] 04-26-2023 20:56-0400 Body mass index (BMI) [Ratio] 20.1 kg/m2 No Primary Care Physician [facility] 04-26-2023 19:57-0400 Diastolic blood pressure 69 mm[Hg] No Primary Care Physician [facility] 04-26-2023 19:57-0400 Heart rate 79 /min No Primary Care Physician [facility] 04-26-2023 19:57-0400 Respiratory rate 16 /min No Primary Care Physician [facility] 04-26-2023 19:57-0400 SaO2% (BldA) [Mass fraction] 98 % No Primary Care Physician [facility] 04-26-2023 19:57-0400 Systolic blood pressure 105 mm[Hg] No Primary Care Physician [facility] 04-26-2023 19:54-0400 Body temperature 97.9 [degF] No Primary Care Physician [facility] 04-26-2023 16:53-0400 Body height 167.64 cm No Primary Care Physician [facility] 04-26-2023 16:53-0400 Body mass index (BMI) [Ratio] 20.4 kg/m2 No Primary Care Physician [facility] 04-26-2023 16:53-0400 Body weight 57.33 kg No Primary Care Physician [facility] 03-26-2023 00:12-0400 Body temperature 97.6 [degF] No Primary Care Physician [facility] 03-26-2023 00:12-0400 Diastolic blood pressure 78 mm[Hg] No Primary Care Physician [facility] 03-26-2023 00:12-0400 Heart rate 79 /min No Primary Care Physician [facility] 03-26-2023 00:12-0400 Respiratory rate 16 /min No Primary Care Physician [facility] 03-26-2023 00:12-0400 SaO2% (BldA) [Mass fraction] 97 % No Primary Care Physician [facility] 03-26-2023 00:12-0400 Systolic blood pressure 106 mm[Hg] No Primary Care Physician [facility] 03-26-2023 00:10-0400 Body height 170.18 cm No Primary Care Physician [facility] 03-26-2023 00:10-0400 Body mass index (BMI) [Ratio] 19.5 kg/m2 No Primary Care Physician [facility] 03-26-2023 00:10-0400 Body weight 56.69 kg No Primary Care Physician [facility] 02-23-2023 23:30-0400 Body mass index (BMI) [Ratio] 24.3 kg/m2 No Primary Care Physician [facility] 02-23-2023 23:30-0400 Body temperature 98.7 [degF] No Primary Care Physician [facility] 02-23-2023 23:30-0400 Body weight 68.5 kg No Primary Care Physician [facility] 02-23-2023 23:30-0400 Diastolic blood pressure 91 mm[Hg] No Primary Care Physician [facility] 02-23-2023 23:30-0400 Heart rate 85 /min No Primary Care Physician [facility] 02-23-2023 23:30-0400 Respiratory rate 18 /min No Primary Care Physician [facility] 02-23-2023 23:30-0400 SaO2% (BldA) [Mass fraction] 95 % No Primary Care Physician [facility] 02-23-2023 23:30-0400 Systolic blood pressure 130 mm[Hg] No Primary Care Physician [facility] 01-22-2023 15:12-0400 Respiratory rate 14 /min No Primary Care Physician [facility] 01-22-2023 14:07-0400 Body height 167.64 cm No Primary Care Physician [facility] 01-22-2023 14:07-0400 Body mass index (BMI) [Ratio] 21.3 kg/m2 No Primary Care Physician [facility] 01-22-2023 14:07-0400 Body temperature 97 [degF] No Primary Care Physician [facility] 01-22-2023 14:07-0400 Body weight 60 kg No Primary Care Physician [facility] 01-22-2023 14:07-0400 Diastolic blood pressure 82 mm[Hg] No Primary Care Physician [facility] 01-22-2023 14:07-0400 Heart rate 78 /min No Primary Care Physician [facility] 01-22-2023 14:07-0400 SaO2% (BldA) [Mass fraction] 100 % No Primary Care Physician [facility] 01-22-2023 14:07-0400 Systolic blood pressure 120 mm[Hg] No Primary Care Physician [facility] 12-24-2022 07:51-0400 Body temperature 97.5 [degF] No Primary Care Physician [facility] 12-24-2022 07:51-0400 Diastolic blood pressure 77 mm[Hg] No Primary Care Physician [facility] 12-24-2022 07:51-0400 Heart rate 79 /min No Primary Care Physician [facility] 12-24-2022 07:51-0400 Respiratory rate 18 /min No Primary Care Physician [facility] 12-24-2022 07:51-0400 SaO2% (BldA) [Mass fraction] 98 % No Primary Care Physician [facility] 12-24-2022 07:51-0400 Systolic blood pressure 134 mm[Hg] No Primary Care Physician [facility] 12-23-2022 23:29-0400 Body height 167.64 cm No Primary Care Physician [facility] 12-23-2022 23:29-0400 Body mass index (BMI) [Ratio] 19.9 kg/m2 No Primary Care Physician [facility] 12-23-2022 23:29-0400 Body weight 56 kg No Primary Care Physician [facility] 12-15-2022 18:20-0400 Body height 167.64 cm [facility] 12-15-2022 18:20-0400 Body temperature 97.8 [degF] [facility] 12-15-2022 18:20-0400 Diastolic blood pressure 81 mm[Hg] [facility] 12-15-2022 18:20-0400 Heart rate 91 /min [facility] 12-15-2022 18:20-0400 Respiratory rate 18 /min [facility] 12-15-2022 18:20-0400 SaO2% (BldA) [Mass fraction] 99 % [facility] 12-15-2022 18:20-0400 Systolic blood pressure 126 mm[Hg] [facility] 12-01-2022 23:24-0500 Body height 167.64 cm [facility] 12-01-2022 23:24-0500 Body mass index (BMI) [Ratio] 20.3 kg/m2 [facility] 12-01-2022 23:24-0500 Body temperature 97.6 [degF] [facility] 12-01-2022 23:24-0500 Body weight 57.15 kg [facility] 12-01-2022 23:24-0500 Diastolic blood pressure 70 mm[Hg] [facility] 12-01-2022 23:24-0500 Heart rate 90 /min [facility] 12-01-2022 23:24-0500 Respiratory rate 18 /min [facility] 12-01-2022 23:24-0500 SaO2% (BldA) [Mass fraction] 97 % [facility] 12-01-2022 23:24-0500 Systolic blood pressure 113 mm[Hg] [facility] 11-03-2022 15:46-0500 Diastolic blood pressure 80 mm[Hg] No Primary Care Physician [facility] 11-03-2022 15:46-0500 Heart rate 72 /min No Primary Care Physician [facility] 11-03-2022 15:46-0500 Respiratory rate 16 /min No Primary Care Physician [facility] 11-03-2022 15:46-0500 Systolic blood pressure 124 mm[Hg] No Primary Care Physician [facility] 11-03-2022 15:09-0500 SaO2% (BldA) [Mass fraction] 98 % No Primary Care Physician [facility] 11-03-2022 12:58-0500 Body height 167.64 cm No Primary Care Physician [facility] 11-03-2022 12:58-0500 Body mass index (BMI) [Ratio] 21.9 kg/m2 No Primary Care Physician [facility] 11-03-2022 12:58-0500 Body temperature 98.1 [degF] No Primary Care Physician [facility] 11-03-2022 12:58-0500 Body weight 61.7 kg No Primary Care Physician [facility] 10-23-2022 02:37-0500 Body temperature 98 [degF] No Primary Care Physician [facility] 10-23-2022 02:37-0500 Diastolic blood pressure 81 mm[Hg] No Primary Care Physician [facility] 10-23-2022 02:37-0500 Heart rate 96 /min No Primary Care Physician [facility] 10-23-2022 02:37-0500 Respiratory rate 18 /min No Primary Care Physician [facility] 10-23-2022 02:37-0500 SaO2% (BldA) [Mass fraction] 98 % No Primary Care Physician [facility] 10-23-2022 02:37-0500 Systolic blood pressure 133 mm[Hg] No Primary Care Physician [facility] 10-23-2022 01:44-0500 Body mass index (BMI) [Ratio] 20.6 kg/m2 No Primary Care Physician [facility] 10-23-2022 01:44-0500 Body weight 58 kg No Primary Care Physician [facility] 10-09-2022 14:57-0500 Diastolic blood pressure 85 mm[Hg] No Primary Care Physician [facility] 10-09-2022 14:57-0500 Heart rate 89 /min No Primary Care Physician [facility] 10-09-2022 14:57-0500 Respiratory rate 18 /min No Primary Care Physician [facility] 10-09-2022 14:57-0500 SaO2% (BldA) [Mass fraction] 97 % No Primary Care Physician [facility] 10-09-2022 14:57-0500 Systolic blood pressure 115 mm[Hg] No Primary Care Physician [facility] 10-09-2022 13:25-0500 Body height 167.64 cm No Primary Care Physician [facility] Work Phone: 10-09-2022 13:25-0500 Body mass index (BMI) [Ratio] 20.9 kg/m2 No Primary Care Physician [facility] 10-09-2022 13:25-0500 Body temperature 96.4 [degF] No Primary Care Physician [facility] 10-09-2022 13:25-0500 Body weight 58.96 kg No Primary Care Physician [facility] 09-09-2022 04:23-0500 Heart rate 85 /min No Primary Care Physician [facility] 09-09-2022 04:23-0500 Respiratory rate 18 /min No Primary Care Physician [facility] 09-09-2022 04:23-0500 SaO2% (BldA) [Mass fraction] 96 % No Primary Care Physician [facility] 09-09-2022 01:56-0500 Body temperature 97.6 [degF] No Primary Care Physician [facility] 09-09-2022 01:56-0500 Diastolic blood pressure 85 mm[Hg] No Primary Care Physician [facility] 09-09-2022 01:56-0500 Systolic blood pressure 127 mm[Hg] No Primary Care Physician [facility] 09-09-2022 01:54-0500 Body height 167.64 cm No Primary Care Physician [facility] Work Phone: 09-09-2022 01:54-0500 Body mass index (BMI) [Ratio] 19.6 kg/m2 No Primary Care Physician [facility] 09-09-2022 01:54-0500 Body weight 55.3 kg No Primary Care Physician [facility] 09-05-2022 11:08-0500 Heart rate 108 /min No Primary Care Physician [facility] 09-05-2022 11:08-0500 Respiratory rate 120 /min No Primary Care Physician [facility] 09-05-2022 10:15-0500 Body height 167.64 cm No Primary Care Physician [facility] Work Phone: 09-05-2022 10:15-0500 Body mass index (BMI) [Ratio] 20.9 kg/m2 No Primary Care Physician [facility] 09-05-2022 10:15-0500 Body temperature 100.8 [degF] No Primary Care Physician [facility] 09-05-2022 10:15-0500 Body weight 58.96 kg No Primary Care Physician [facility] 09-05-2022 10:15-0500 Diastolic blood pressure 90 mm[Hg] No Primary Care Physician [facility] 09-05-2022 10:15-0500 SaO2% (BldA) [Mass fraction] 97 % No Primary Care Physician [facility] 09-05-2022 10:15-0500 Systolic blood pressure 119 mm[Hg] No Primary Care Physician [facility] 08-14-2022 08:13-0500 Diastolic blood pressure 90 mm[Hg] No Primary Care Physician [facility] 08-14-2022 08:13-0500 Heart rate 87 /min No Primary Care Physician [facility] 08-14-2022 08:13-0500 Respiratory rate 16 /min No Primary Care Physician [facility] 08-14-2022 08:13-0500 SaO2% (BldA) [Mass fraction] 98 % No Primary Care Physician [facility] 08-14-2022 08:13-0500 Systolic blood pressure 133 mm[Hg] No Primary Care Physician [facility] 08-14-2022 06:50-0500 Body height 167.64 cm No Primary Care Physician [facility] Work Phone: 08-14-2022 06:50-0500 Body mass index (BMI) [Ratio] 20.9 kg/m2 No Primary Care Physician [facility] 08-14-2022 06:50-0500 Body temperature 97.5 [degF] No Primary Care Physician [facility] 08-14-2022 06:50-0500 Body weight 58.96 kg No Primary Care Physician [facility] 07-26-2022 22:29-0400 SaO2% (BldA) [Mass fraction] 98 % No Primary Care Physician [facility] 07-26-2022 21:54-0400 Diastolic blood pressure 84 mm[Hg] No Primary Care Physician [facility] 07-26-2022 21:54-0400 Heart rate 63 /min No Primary Care Physician [facility] 07-26-2022 21:54-0400 Respiratory rate 16 /min No Primary Care Physician [facility] 07-26-2022 21:54-0400 Systolic blood pressure 127 mm[Hg] No Primary Care Physician [facility] 07-26-2022 17:37-0400 Body height 167.64 cm No Primary Care Physician [facility] Work Phone: 07-26-2022 17:37-0400 Body mass index (BMI) [Ratio] 20.9 kg/m2 No Primary Care Physician [facility] 07-26-2022 17:37-0400 Body temperature 98.3 [degF] No Primary Care Physician [facility] 07-26-2022 17:37-0400 Body weight 58.96 kg No Primary Care Physician [facility] 07-18-2022 10:39-0400 Heart rate 85 /min No Primary Care Physician [facility] 07-18-2022 10:39-0400 Respiratory rate 19 /min No Primary Care Physician [facility] 07-18-2022 08:35-0400 SaO2% (BldA) [Mass fraction] 95 % No Primary Care Physician [facility] 07-18-2022 08:24-0400 Body temperature 97.8 [degF] No Primary Care Physician [facility] 07-18-2022 08:24-0400 Diastolic blood pressure 83 mm[Hg] No Primary Care Physician [facility] 07-18-2022 08:24-0400 Systolic blood pressure 112 mm[Hg] No Primary Care Physician [facility] 07-16-2022 10:02-0400 Body weight 55 kg No Primary Care Physician [facility] 07-15-2022 22:43-0400 Body mass index (BMI) [Ratio] 19.5 kg/m2 No Primary Care Physician [facility] 07-15-2022 21:33-0400 Body temperature 97.9 [degF] No Primary Care Physician [facility] Work Phone: 07-15-2022 21:33-0400 Diastolic blood pressure 90 mm[Hg] No Primary Care Physician [facility] Work Phone: 07-15-2022 21:33-0400 Heart rate 83 /min No Primary Care Physician [facility] Work Phone: 07-15-2022 21:33-0400 Respiratory rate 18 /min No Primary Care Physician [facility] Work Phone: 07-15-2022 21:33-0400 SaO2% (BldA) [Mass fraction] 98 % No Primary Care Physician [facility] Work Phone: 07-15-2022 21:33-0400 Systolic blood pressure 159 mm[Hg] No Primary Care Physician [facility] Work Phone: 07-15-2022 20:56-0400 Body height 167.64 cm No Primary Care Physician [facility] Work Phone: 07-15-2022 20:56-0400 Body mass index (BMI) [Ratio] 20.9 kg/m2 No Primary Care Physician [facility] Work Phone: 07-15-2022 20:56-0400 Body weight 58.96 kg No Primary Care Physician [facility] Work Phone: 07-09-2022 07:41-0400 Heart rate 92 /min No Primary Care Physician [facility] 07-09-2022 07:41-0400 SaO2% (BldA) [Mass fraction] 100 % No Primary Care Physician [facility] 07-09-2022 06:37-0400 Respiratory rate 16 /min No Primary Care Physician [facility] 07-09-2022 06:04-0400 Body mass index (BMI) [Ratio] 20.5 kg/m2 No Primary Care Physician [facility] 07-09-2022 06:04-0400 Body temperature 97.6 [degF] No Primary Care Physician [facility] 07-09-2022 06:04-0400 Body weight 59.6 kg No Primary Care Physician [facility] 07-09-2022 06:04-0400 Diastolic blood pressure 114 mm[Hg] No Primary Care Physician [facility] 07-09-2022 06:04-0400 Systolic blood pressure 129 mm[Hg] No Primary Care Physician [facility] 05-26-2022 08:25-0400 Body temperature 96.9 [degF] No Primary Care Physician [facility] Work Phone: 05-26-2022 08:25-0400 Diastolic blood pressure 71 mm[Hg] No Primary Care Physician [facility] Work Phone: 05-26-2022 08:25-0400 Heart rate 87 /min No Primary Care Physician [facility] Work Phone: 05-26-2022 08:25-0400 Respiratory rate 16 /min No Primary Care Physician [facility] Work Phone: 05-26-2022 08:25-0400 SaO2% (BldA) [Mass fraction] 94 % No Primary Care Physician [facility] Work Phone: 05-26-2022 08:25-0400 Systolic blood pressure 95 mm[Hg] No Primary Care Physician [facility] Work Phone: 05-24-2022 10:56-0400 Body height 170.18 cm No Primary Care Physician [facility] Work Phone: 05-24-2022 10:56-0400 Body weight 54.7 kg No Primary Care Physician [facility] Work Phone: 05-24-2022 01:48-0400 Body mass index (BMI) [Ratio] 18.8 kg/m2 No Primary Care Physician [facility] Work Phone: 05-24-2022 00:57-0400 Body temperature 97.6 [degF] No Primary Care Physician [facility] Work Phone: 05-24-2022 00:57-0400 Diastolic blood pressure 70 mm[Hg] No Primary Care Physician [facility] Work Phone: 05-24-2022 00:57-0400 Heart rate 90 /min No Primary Care Physician [facility] Work Phone: 05-24-2022 00:57-0400 Respiratory rate 11 /min No Primary Care Physician [facility] Work Phone: 05-24-2022 00:57-0400 SaO2% (BldA) [Mass fraction] 97 % No Primary Care Physician [facility] Work Phone: 05-24-2022 00:57-0400 Systolic blood pressure 120 mm[Hg] No Primary Care Physician [facility] Work Phone: 05-23-2022 23:21-0400 Body height 170.18 cm No Primary Care Physician [facility] Work Phone: 05-23-2022 23:21-0400 Body mass index (BMI) [Ratio] 18.8 kg/m2 No Primary Care Physician [facility] Work Phone: 05-23-2022 23:21-0400 Body weight 54.43 kg No Primary Care Physician [facility] Work Phone: 03-28-2022 19:52-0400 Diastolic blood pressure 71 mm[Hg] No Primary Care Physician [facility] Work Phone: 03-28-2022 19:52-0400 Heart rate 79 /min No Primary Care Physician [facility] Work Phone: 03-28-2022 19:52-0400 Respiratory rate 16 /min No Primary Care Physician [facility] Work Phone: 03-28-2022 19:52-0400 SaO2% (BldA) [Mass fraction] 97 % No Primary Care Physician [facility] Work Phone: 03-28-2022 19:52-0400 Systolic blood pressure 99 mm[Hg] No Primary Care Physician [facility] Work Phone: 03-28-2022 15:53-0400 Body height 170.18 cm No Primary Care Physician [facility] Work Phone: 03-28-2022 15:53-0400 Body mass index (BMI) [Ratio] 18.8 kg/m2 No Primary Care Physician [facility] Work Phone: 03-28-2022 15:53-0400 Body temperature 98.3 [degF] No Primary Care Physician [facility] Work Phone: 03-28-2022 15:53-0400 Body weight 54.43 kg No Primary Care Physician [facility] Work Phone: 03-26-2022 12:22-0400 Body mass index (BMI) [Ratio] 19.4 kg/m2 No Primary Care Physician [facility] Work Phone: 03-26-2022 12:22-0400 Body temperature 98.4 [degF] No Primary Care Physician [facility] Work Phone: 03-26-2022 12:22-0400 Body weight 56.24 kg No Primary Care Physician [facility] Work Phone: 03-26-2022 12:22-0400 Diastolic blood pressure 74 mm[Hg] No Primary Care Physician [facility] Work Phone: 03-26-2022 12:22-0400 Heart rate 92 /min No Primary Care Physician [facility] Work Phone: 03-26-2022 12:22-0400 Respiratory rate 14 /min No Primary Care Physician [facility] Work Phone: 03-26-2022 12:22-0400 SaO2% (BldA) [Mass fraction] 98 % No Primary Care Physician [facility] Work Phone: 03-26-2022 12:22-0400 Systolic blood pressure 126 mm[Hg] No Primary Care Physician [facility] Work Phone: 03-22-2022 12:18-0400 Body temperature 97.9 [degF] No Primary Care Physician [facility] Work Phone: 03-22-2022 12:18-0400 Diastolic blood pressure 78 mm[Hg] No Primary Care Physician [facility] Work Phone: 03-22-2022 12:18-0400 Heart rate 88 /min No Primary Care Physician [facility] Work Phone: 03-22-2022 12:18-0400 Respiratory rate 13 /min No Primary Care Physician [facility] Work Phone: 03-22-2022 12:18-0400 SaO2% (BldA) [Mass fraction] 99 % No Primary Care Physician [facility] Work Phone: 03-22-2022 12:18-0400 Systolic blood pressure 121 mm[Hg] No Primary Care Physician [facility] Work Phone: 03-20-2022 15:48-0400 Body height 170.18 cm No Primary Care Physician [facility] Work Phone: 03-20-2022 15:48-0400 Body weight 55 kg No Primary Care Physician [facility] Work Phone: 03-19-2022 22:46-0400 Body mass index (BMI) [Ratio] 19 kg/m2 No Primary Care Physician [facility] Work Phone: 03-19-2022 21:51-0400 Body temperature 97.4 [degF] [facility] Work Phone: 03-19-2022 21:51-0400 Diastolic blood pressure 89 mm[Hg] [facility] Work Phone: 03-19-2022 21:51-0400 Heart rate 95 /min [facility] Work Phone: 03-19-2022 21:51-0400 Respiratory rate 16 /min [facility] Work Phone: 03-19-2022 21:51-0400 SaO2% (BldA) [Mass fraction] 99 % [facility] Work Phone: 03-19-2022 21:51-0400 Systolic blood pressure 128 mm[Hg] [facility] Work Phone: 03-19-2022 20:28-0400 Body height 170.18 cm [facility] Work Phone: 03-19-2022 20:28-0400 Body mass index (BMI) [Ratio] 19 kg/m2 [facility] Work Phone: 03-19-2022 20:28-0400 Body weight 55.15 kg [facility] Work Phone: 02-12-2022 20:44-0400 Diastolic blood pressure 96 mm[Hg] [facility] Work Phone: 02-12-2022 20:44-0400 Heart rate 85 /min [facility] Work Phone: 02-12-2022 20:44-0400 Respiratory rate 15 /min [facility] Work Phone: 02-12-2022 20:44-0400 Systolic blood pressure 134 mm[Hg] [facility] Work Phone: 02-12-2022 19:07-0400 Body height 167.64 cm [facility] Work Phone: 02-12-2022 19:07-0400 Body mass index (BMI) [Ratio] 20.1 kg/m2 [facility] Work Phone: 02-12-2022 19:07-0400 Body temperature 97.9 [degF] [facility] Work Phone: 02-12-2022 19:07-0400 Body weight 56.69 kg [facility] Work Phone: 02-12-2022 19:040 SaO2% (BldA) [Mass fraction] 98 % [facility] Work Phone: Encounters Encounter Date Encounter Type Care Provider Facility Start: 04-18-2025 Non-patient / Non-visit Dr. Tom Owen MD -[facility] Work Phone: Start: 04-17-2025 Non-patient / Non-visit Dr. Tom Owen MD -[facility] Work Phone: Start: 04-16-2025 ambulatory No Primary Car e Physician Facility:[facility] Start: 04-16-2025 End: 04-18-2025 Evaluation and management of inpatient Dr. Jaquan Villarreal DO -Medical Surgical 3 Work Phone: Start: 03-30-2025 End: [...] Non-patient / Non-visit Dr. Graham Tolbert DO [facility] Work Phone: Start: 11-11-2024 Non-patient / Non-visit Dr. Trang Valencia DO -[facility] Work Phone: Start: 11-11-2024 ambulatory No Primary Car e Physician Facility:[facility] Start: 11-11-2024 End: 11-12-2024 Evaluation and management of inpatient Dr. Graham Tolbert DO -Intensive Care Unit Work Phone: Start: 10-22-2024 Non-patient / Non-visit Dr. Graham Tolbert DO [facility] Work Phone: Start: 10-21-2024 End: 10-23-2024 Evaluation and management of inpatient Dr. Graham Tolbert DO -Progressive Care Unit Work Phone: Start: 10-21-2024 ambulatory No Primary Car e Physician Facility:[facility] Start: 10-21-2024 Non-patient / Non-visit Dr. Troy Monroy MD -[facility] Work Phone: Start: 09-19-2024 End: 09-19-2024 Emergency department patient visit Dr. Julius Matthews DO -Emergency Department Work Phone: Start: 09-07-2024 End: 09-07-2024 Emergency department patient visit Dr. Julius Matthews DO -Emergency Department Work Phone: Start: 08-03-2024 End: 08-03-2024 Emergency department patient visit No Primary Care Physician Facility:[facility] Start: 06-03-2024 End: 06-03-2024 Emergency department patient visit No Primary Care Physician Facility:[facility] Start: 06-02-2024 End: 06-02-2024 Emergency department patient visit No Primary Care Physician Facility:[facility] Start: 10-31-2023 Non-patient / Non-visit No Primary Care Physician [facility] Work Phone: Start: 10-30-2023 Non-patient / Non-visit No Primary Care Physician [facility] Work Phone: Start: 10-29-2023 End: 10-31-2023 Evaluation and management of inpatient No Primary Care Physician [facility] Surgical 3 Work Phone: Start: 10-29-2023 Non-patient / Non-visit No Primary Care Physician [facility] Work Phone: Start: 10-15-2023 End: 10-15-2023 Emergency department patient visit [facility]-Emergency Department Work Phone: Start: 09-01-2023 End: 09-01-2023 Emergency department patient visit [facility]-Emergency Department Work Phone: Start: 08-28-2023 End: 08-06-2024 Telephone encounter Linda Jose MD Work Phone: General Surgery Comment on above: 09/05/2023 COLON MEDI NA + 10/03/2023 RIH MTZ Start: 08-28-2023 End: 08-28-2023 ambulatory LINDA JOSE Facility:[facility] Start: 08-28-2023 End: 08-28-2023 Patient encounter procedure Linda Jose MD Work Phone: General Surgery Comment on above: Right inguinal herni a; Screening for colon cancer Start: 08-26-2023 End: 08-26-2023 ambulatory LINDA JOSE Facility:[facility] Start: 05-29-2023 End: 05-29-2023 Emergency department patient visit No Primary Care Physician [facility]-Emergency Department Work Phone: Start: 04-28-2023 Non-patient / Non-visit No Primary Care Physician [facility] Work Phone: Start: 04-27-2023 Non-patient / Non-visit No Primary Care Physician [facility] Work Phone: Start: 04-26-2023 End: 04-28-2023 Evaluation and management of inpatient No Primary Care Physician [facility] Surgical 3 Work Phone: Start: 04-26-2023 Non-patient / Non-visit No Primary Care Physician [facility] Work Phone: Start: 03-26-2023 End: 03-26-2023 Emergency department patient visit No Primary Care Physician [facility]-Emergency Department Start: 02-23-2023 End: 02-24-2023 Emergency department patient visit No Primary Care Physician [facility]-Emergency Department Start: 01-22-2023 End: 01-22-2023 Emergency department patient visit No Primary Care Physician [facility]-Emergency Department Start: 12-24-2022 Non-patient / Non-visit No Primary Care Physician [facility] Start: 12-23-2022 End: 12-24-2022 Evaluation and management of inpatient No Primary Care Physician [facility]-Medical Surgical 3 Start: 12-15-2022 End: 12-15-2022 Emergency department patient visit [facility]-Emergency Department Start: 12-01-2022 End: 12-02-2022 Emergency department patient visit [facility]-Emergency Department Start: 11-03-2022 End: 11-03-2022 Emergency department patient visit No Primary Care Physician [facility]-Emergency Department Start: 10-23-2022 End: 10-23-2022 Emergency department patient visit No Primary Care Physician [facility]-Emergency Department Start: 10-09-2022 End: 10-09-2022 Emergency department patient visit No Primary Care Physician [facility]-Emergency Department Start: 09-09-2022 End: 09-09-2022 Emergency department patient visit No Primary Care Physician [facility]-Emergency Department Start: 09-05-2022 End: 09-05-2022 Emergency department patient visit No Primary Care Physician [facility]-Emergency Department Start: 08-14-2022 End: 08-14-2022 Emergency department patient visit No Primary Care Physician [facility]-Emergency Department Start: 07-26-2022 End: 07-26-2022 [facility] Start: 07-18-2022 Non-patient / Non-visit No Primary Care Physician [facility] Start: 07-17-2022 Non-patient / Non-visit No Primary Care Physician [facility] Start: 07-16-2022 Non-patient / Non-visit No Primary Care Physician [facility] Start: 07-15-2022 End: 07-18-2022 Evaluation and management of inpatient No [facility] Start: 07-09-2022 End: 07-09-2022 Emergency department patient visit No Primary Care Physician [facility]-Emergency Department Start: 05-26-2022 Non-patient / Non-visit No Primary Care Physician [facility] Start: 05-25-2022 Non-patient / Non-visit No Primary Care Physician [facility] Start: 05-24-2022 Non-patient / Non-visit No Primary Care Physician [facility] Start: 05-24-2022 End: 05-26-2022 Evaluation and management of inpatient No Primary Care Physician [facility]-Progressive Care Unit Start: 03-28-2022 End: 03-28-2022 Emergency department patient visit No Primary Care Physician [facility]-Emergency Department Start: 03-26-2022 End: 03-26-2022 Patient encounter procedure No Primary Care Physician [facility] Start: 03-22-2022 Non-patient / Non-visit No Primary Care Physician [facility] Start: 03-21-2022 Non-patient / Non-visit No Primary Care Physician [facility] Start: 03-20-2022 Non-patient / Non-visit No Primary Care Physician [facility] Start: 03-19-2022 End: 03-22-2022 [facility] Start: 03-19-2022 Non-patient / Non-visit No Primary Care Physician [facility] Start: 02-12-2022 End: 02-12-2022 Emergency department patient visit [facility]-Emergency Department Start: 06-05-2018 End: 06-06-2018 Emergency department patient visit ED PSYCHIATRY TEAM CONSULT [facility] Procedures Date Procedure Procedure Detail Performing Clinician Start: 04-18-2025 Serum inorganic phos phate measurement No Primary Care Physician Start: 04-17-2025 Methadone measuremen t, urine No Primary Care Physician Start: 04-17-2025 Urnls dip stick/tabl et reagent auto microscopy No Primary Care Physician Start: 04-17-2025 Estimated creatinine clearance No Primary Care Physician Start: 04-16-2025 Estimated creatinine clearance No Primary [...] DTaP,Tdap,Td Vaccine (3 - Td or Tdap) [facility] Start: 04-18-2025 Patient discharge [facility] Start: 04-16-2025 Following clinical pathway protocol [facility] Start: 04-16-2025 Ambulation without limitation [facility] Start: 04-16-2025 Aspiration precautions [facility] Start: 04-16-2025 Assessment of risk o f venous thromboembolism [facility] Start: 04-16-2025 Incentive spirometry [facility] Start: 04-16-2025 Insertion of cathete r into peripheral vein [facility] Start: 04-16-2025 Measuring intake and output [facility] Start: 04-16-2025 Providing care accor ding to standard [facility] Start: 04-16-2025 Referral to service [facility] Start: 04-16-2025 Seizure precautions [facility] Start: 04-16-2025 Tobacco use cessatio n education [facility] Start: 04-16-2025 [facility] Start: 04-16-2025 Urinalysis complete panel - Urine [facility] Start: 04-16-2025 Admission procedure [facility] Start: 04-16-2025 Verification routine [facility] Start: 04-16-2025 Hospital admission, emergency, from emergency room, medical nature [facility] Start: 04-16-2025 [facility] Start: 04-16-2025 Patient referral to dietitian [facility] Start: 03-30-2025 [facility] Start: 03-29-2025 [facility] Start: 03-29-2025 [facility] Start: 01-19-2025 [facility] Start: 12-13-2024 [facility] Start: 2024 [facility] Start: 2024 [facility] Start: 11-20-2024 [facility] Start: 11-12-2024 Patient discharge [facility] Start: 11-12-2024 End: 11-12-2024 [facility] Start: 11-12-2024 Care regimes management [facility] Start: 11-12-2024 Notification of physician [facility] Start: 11-11-2024 Assessment of risk o f venous thromboembolism [facility] Start: 11-11-2024 Catheterization of vein [facility] Start: 11-11-2024 Continuous pulse oximetry [facility] Start: 11-11-2024 Elevation of head of bed [facility] Start: 11-11-2024 Incentive spirometry [facility] Start: 11-11-2024 Inhalation therapy procedure [facility] Start: 11-11-2024 Insertion of cathete r into peripheral vein [facility] Start: 11-11-2024 Measuring intake and output [facility] Start: 11-11-2024 Oxygen therapy [facility] Start: 11-11-2024 Patient referral to dietitian [facility] Start: 11-11-2024 Physiotherapy of chest [facility] Start: 11-11-2024 Providing care accor ding to standard [facility] Start: 11-11-2024 Referral to service [facility] Start: 11-11-2024 Tobacco use cessatio n education [facility] Start: 11-11-2024 Vital signs measurements [facility] Start: 11-11-2024 End: 11-11-2024 [facility] Start: 11-11-2024 Following clinical pathway protocol [facility] Start: 11-11-2024 Admission procedure [facility] Start: 11-11-2024 Consultation [facility] Start: 11-11-2024 Dual pressure sponta neous ventilation support [facility] Start: 11-11-2024 [facility] Start: 10-22-2024 Patient discharge [facility] Start: 10-22-2024 Physiotherapy of chest [facility] Start: 10-21-2024 Following clinical pathway protocol [facility] Start: 10-21-2024 End: 10-21-2024 [facility] Start: 10-21-2024 Ambulation without limitation [facility] Start: 10-21-2024 Assessment of risk o f venous thromboembolism [facility] Start: 10-21-2024 Inhalation therapy procedure [facility] Start: 10-21-2024 Insertion of cathete r into peripheral vein [facility] Start: 10-21-2024 Measuring intake and output [facility] Start: 10-21-2024 Oxygen therapy [facility] Start: 10-21-2024 Providing care accor ding to standard [facility] Start: 10-21-2024 Referral to service [facility] Start: 10-21-2024 Admission procedure [facility] Start: 10-21-2024 Consultation [facility]: 10-21-[facility]: 09-19-2024 [facility] Start: 09-19-2024 [facility] Start: 09-07-2024 End: 09-07-2024 [facility] Start: 06-02-2024 Covid-19 Vaccine ( season) Covid-19 Vaccine ( season) [facility] Start: 06-02-2024 Influenza vaccination Influenza Vacc ine (#1) [facility] Start: 10-31-2023 Patient discharge [facility] Start: 10-29-2023 Assessment of risk o f venous thromboembolism [facility] Start: 10-29-2023 Inhalation therapy procedure [facility] Start: 10-29-2023 Introduction of urin mainor catheter [facility] Start: 10-29-2023 Notification of physician [facility] Start: 10-29-2023 Provision of activit y privileges [facility] Start: 10-29-2023 Referral to service [facility] Start: 10-29-2023 Vital signs measurements [facility] Start: 10-29-2023 End: 10-29-2023 [facility] Start: 10-29-2023 Following clinical pathway protocol [facility] Start: 10-29-2023 Hospital admission, emergency, from emergency room, medical nature [facility] Start: 10-29-2023 Admission procedure [facility] Start: 10-29-2023 [facility] Start: 10-15-2023 [facility] Start: 09-01-2023 [facility] Start: 06-02-2023 Covid-19 Vaccine () Covid-19 Vaccine () [facility] Start: 06-02-2023 Influenza vaccination Influenza Vacc ine (#1) [facility] Start: 04-28-2023 Patient discharge [facility] Start: 04-27-2023 [facility] Start: 04-26-2023 Following clinical pathway protocol [facility] Start: 04-26-2023 Assessment of risk o f venous thromboembolism [facility] Start: 04-26-2023 Inhalation therapy procedure [facility] Start: 04-26-2023 Introduction of urin mainor catheter [facility] Start: 04-26-2023 Notification of physician [facility] Start: 04-26-2023 Oxygen therapy [facility] Start: 04-26-2023 Provision of activit y privileges [facility] Start: 04-26-2023 Referral to service [facility] Start: 04-26-2023 Tobacco use cessatio n education [facility] Start: 04-26-2023 Vital signs measurements [facility] Start: 04-26-2023 [facility] Start: 04-26-2023 Admission procedure [facility] Start: 04-26-2023 Hepatitis B surface antigen measurement [facility] Start: 04-26-2023 Hepatitis C antibody measurement [facility] Start: 04-26-2023 Procedure [facility] Start: 04-26-2023 Patient referral to dietitian [facility] Start: 12-24-2022 Patient discharge [facility] Start: 12-23-2022 Assessment of risk o f venous thromboembolism [facility] Start: 12-23-2022 Inhalation therapy procedure [facility] Start: 12-23-2022 Introduction of urin mainor catheter [facility] Start: 12-23-2022 Notification of physician [facility] Start: 12-23-2022 Oxygen therapy [facility] Start: 12-23-2022 Provision of activit y privileges [facility] Start: 12-23-2022 Referral to service [facility] Start: 12-23-2022 Vital signs measurements [facility] Start: 12-23-2022 [facility] Start: 12-23-2022 Following clinical pathway protocol [facility] Start: 12-23-2022 Measurement of occul t blood in stool specimen using immunoassay [facility] Start: 12-23-2022 Admission procedure [facility] Start: 12-23-2022 Vitamin B12 measurement [facility] Start: 12-23-2022 Patient referral to dietitian [facility] Start: 11-03-2022 Simple repair f/e/e/ n/l/m 2.5cm/< RPR F/E/E/N/L/M 2.5 CM/< [facility] Start: 10-02-2022 Depression Assessment Depression Ass [facility] Start: 07-26-2022 Inhalation therapy procedure [facility] Start: 07-18-2022 Patient discharge [facility] Start: 07-16-2022 Following clinical pathway protocol [facility] Start: 07-15-2022 Assessment of risk o f venous thromboembolism [facility] Start: 07-15-2022 Fall prevention [facility] Start: 07-15-2022 Inhalation therapy procedure [facility] Start: 07-15-2022 Insertion of cathete r into peripheral vein [facility] Start: 07-15-2022 Introduction of urin mainor catheter [facility] Start: 07-15-2022 Notification of physician [facility] Start: 07-15-2022 Providing care accor ding to standard [facility] Start: 07-15-2022 Provision of activit y privileges [facility] Start: 07-15-2022 Referral to service [facility] Start: 07-15-2022 Tobacco use cessatio n education [facility] Start: 07-15-2022 Vital signs measurements [facility] Start: 07-15-2022 [facility] Start: 07-15-2022 Admission procedure [facility] Start: 07-15-2022 Verification routine [facility] Work Phone: Start: 07-15-2022 [facility] Work Phone: Start: 07-15-2022 Patient referral to dietitian [facility] Start: 07-09-2022 Pressurized/nonpress urize d inhalation treatment AIRWAY INHALATION TREATMENT [facility] Start: 05-26-2022 Patient discharge [facility] Work Phone: Start: 05-24-2022 Provision of activit y privileges [facility] Work Phone: Start: 05-24-2022 Assessment of risk o f venous thromboembolism [facility] Work Phone: Start: 05-24-2022 Insertion of cathete r into peripheral vein [facility] Work Phone: Start: 05-24-2022 Providing care accor ding to [facility] Work Phone: Start: 05-24-2022 [facility] Work Phone: Start: 05-24-2022 Following clinical pathway protocol [facility] Work Phone: Start: 05-24-2022 Verification routine [facility] Work Phone: Start: 05-24-2022 Admission procedure [facility] Work Phone: Start: 05-24-2022 Patient referral to dietitian [facility] Work Phone: Start: 03-28-2022 [facility] Work Phone: Start: 03-22-2022 Patient discharge [facility] Work Phone: Start: 03-19-2022 Following clinical pathway protocol [facility] Work Phone: Start: 03-19-2022 Assessment of risk o f venous thromboembolism [facility] Work Phone: Start: 03-19-2022 Catheterization of vein [facility] Work Phone: Start: 03-19-2022 Insertion of cathete r into peripheral vein [facility] Work Phone: Start: 03-19-2022 Providing care accor ding to standard [facility] Work Phone: Start: 03-19-2022 Referral to service [facility] Work Phone: Start: 03-19-2022 [facility] Work Phone: Start: 03-19-2022 Admission procedure [facility] Work Phone: Start: 03-19-2022 Verification routine [facility] Work Phone: Start: 03-19-2022 Patient referral to dietitian [facility] Work Phone: Start: 02-12-2022 Patient discharge [facility] Work Phone: Start: 2020 Cologuard (FIT-DNA) Cologuard (FIT-D NA) [facility] Start: 2020 Colonoscopy Colonoscopy [facility] Start: 2020 Colorectal Cancer Screening Colorectal Cancer Screening [facility] Start: [address] Colonography [facility] Start: 2020 Diabetes Screening Diabetes Screenin g [facility] Start: 2020 Fecal Occult Blood Fecal Occult Bloo d [facility] Start: 2020 Screening for malign ant neoplasm of colon [facility] Start: 2020 [facility] Start: 2010 Lipid 1996 panel - S davi or Plasma Lipid Screening [facility] Start: 2010 Lipid panel Lipid Screening [facility] Start: 1994 Hepatitis B Vaccine (1 of 3 - 19+ 3-dose series) Hepatitis B Vaccine (1 of 3 - 19+ 3-dose series) [facility] Start: 1993 Anxiety Screening Anxiety Screening [facility] Start: 1993 Depression Screening Depression Scre ening [facility] Start: 1993 Hepatitis C Screening Hepatitis C [facility] Start: 1993 Hepatitis C screening Hepatitis C [facility] Start: 1993 HIV Screening HIV Screening [facility] Start: 1993 HIV screening HIV Screening [facility] Start: 1975 Hepatitis B Vaccine (1 of 3 - 3-dose series) Hepatitis B Vaccine (1 of 3 - 3-dose series) [facility] Amphetamine [Mass/vo lume] in Urine [facility] Amphetamines [Presen ce] in Urine by Screen method >1000 ng/mL [facility] Benzodiazepine measurement, urine [facility] Benzodiazepine measurement, urine [facility] Bilirubin measuremen t, urine [facility] Cocaine measurement, urine [facility] Cocaine measurement, urine [facility] fentaNYL [Presence] in Urine by Screen method [facility] Hemoglobin [Presence ] in Urine [facility] Hepatitis B virus bazan rface IgG Ab [Presence] in Serum [facility] HIV 1+2 Ab+HIV1 p24 Ag [Presence] in Serum or Plasma by Immunoassay [facility] Magnesium measurement [facility] Measurement of 3,4-methylenedioxymethamp hetamine in urine [facility] Measurement of keton es in urine using dipstick [facility] Methadone measuremen t, urine [facility] Methadone measuremen t, urine [facility] Microscopic urinalysis [facility] Patient Education [facility] Work Phone: Patient referral [facility] Work Phone: PCR for Hepatitis C [facility] pH of Urine [facility] pH of Urine [facility] Phencyclidine [Prese nce] in Urine [facility] Phencyclidine [Prese nce] in Urine [facility] End: 08-28-2024 Screening colonoscopy COLONOSCOPY SCREENING Endoscopy Routine Screening for colon cancer 1 Occurrences starting 08/28/2023 until 08/28/2024 [facility] Work Phone: Comment on above: 1 Occurrences starti ng 08/28/2023 until 08/28/2024 Specific gravity of Urine [facility] Treponema sp Ab [Presence] in Serum [facility] Troponin T.cardiac [Mass/volume] in Serum or Plasma by High sensitivity method [facility] Urine barbiturate measurement [facility] Urine blood test [facility] Urine cannabinoid measurement [facility] Urine cannabinoid measurement [facility] Urine dipstick for glucose [facility] Urine dipstick for leukocyte esterase [facility] Urine dipstick for nitrite [facility] Urine dipstick for protein [facility] Urine examination [facility] Urine microscopy: epithelial cells [facility] Urine Microscopy: wh ite cells [facility] Urine opiate measurement [facility] Urine opiate measurement [facility] Urobilinogen [Presen ce] in Urine [facility] Immunizations Immunization Date Immunization Notes Care Provider Fa andres 10-21-2024 influenza, injectabl e, quadrivalent, preservative free No Primary Care Physician [facility] 11-03-2022 tetanus toxoid, redu kathryn diphtheria toxoid, and acellular pertussis vaccine, adsorbed No Primary Care Physician [facility] 03-17-2022 Covid (Moderna) No Primary C are Physician [facility] 03-16-2022 Covid (Moderna) No Primary C are Physician [facility] 05-22-2021 Covid (Moderna) [facility] 02-22-2021 Covid (Moderna) [facility] 09-23-2020 influenza, injectabl e, quadrivalent, preservative free [facility] 09-23-2020 influenza, seasonal, injectable [facility] 09-23-2020 influenza, seasonal, injectable, preservative free Linda Jose MD Work Phone: [facility] Work Phone: 09-23-2020 influenza virus vacc ine, unspecified formulation Linda Jose MD Work Phone: [facility] 02-25-2017 tetanus toxoid, redu kathryn diphtheria toxoid, and acellular pertussis vaccine, adsorbed [facility] 08-02-2013 pneumococcal polysaccharide vaccine, 23 valent Linda Jose MD Work Phone: [facility] Work Phone: 08-02-2013 Pneumococcal Vaccine [facility] Work Phone: 08-02-2013 pneumococcal vaccine , unspecified formulation No Primary Care Physician [facility] Payers Date Payer Category Payer Self-pay [id number] 2022 Medicaid [facility] [id number] 2022-Present [phone] [address] [place] [address] Medicaid [id number] 2013 Medicaid [id number] 2013 Unknown [id number] Unknown [id number] Unknown [id number] [id number] Unknown [id number] [id number] Unknown [id number] 2.16840.1.015899.3.579.2.462 Unknown [id number] 2.16.840.1.361037.3.579.2.462 Unknown [id number] 2.16840.1.430417.3.579.2.462 Unknown [id number] 2.16840.1.651787.3.579.2.462 Unknown [id number] 2.16840.1.624713.3.579.2.462 Unknown [id number] 2.16.840.1.720619.3.579.2.462 Unknown [id number] 2.16.840.1.438813.3.579.2.462 Unknown [id number] 2.16.840.1.655578.3.579.2.462 Unknown [id number] 2.16.840.1.800912.3.579.2.462 Unknown [id number] 2.16.840.1.007099.3.579.2.462 Unknown [id number] 2.16.840.1.031109.3.579.2.462 Unknown [id number] 2.16.840.1.644067.3.579.2.462 Unknown [id number] 2.16.840.1.807098.3.579.2.462 Unknown [id number] 2.16.840.1.736120.3.579.2.462 Unknown [id number] 2.16.840.1.042650.3.579.2.462 Unknown [id number] 2.16.840.1.034811.3.579.2.462 Unknown [id number] 2.16.840.1.055282.3.579.2.462 Unknown [id number] [id number]2 Unknown [id number] [id number] Social History Date Type Detail Facility Start: 02-12-2022 End: 03-30-2025 Tobacco smoking status NHIS Unknown if ever smoked [facility] Start: 11-22-2020 None [facility] Start: 12-05-2020 Marijuana [facility] Start: 11-22-2020 Homeless [facility] Start: 02-20-2021 Non-smoker [facility] Start: 1975 Sex Assigned At Male [facility] Start: 08-26-2023 End: 01-19-2025 Tobacco smoking status NHIS Never smoked tobacco [facility] Start: 08-26-2023 Tobacco use and exposure Former smokeless tobacco user [facility] Start: 08-28-2023 Alcohol intake Current drinke r of alcohol (finding) [facility] Start: 08-28-2023 History of Social function [facility] Start: 08-28-2023 Tobacco use panel [facility] National Score (1-100), lower number is lower risk 89 [facility] Start: 08-26-2023 Tobacco Comment [facility]aped [facility] Start: 1975 Sex Assigned At Not on file [facility] Start: 12-13-2024 End: 01-19-2025 Sex Male (finding) [facility] Start: 04-16-2025 End: 04-16-2025 Tobacco smoking status NHIS Ex-smoker (finding) [facility] Goals Date Patient Goal Desired Activity /State Functional Status Date Assessment Result Facility 04-18-2025 Functional status Ambulates;Bathroom Priv ilege [facility] Work Phone: 11-12-2024 Functional status Ambulates [facility] Work Phone: 10-23-2024 Functional status Ambulates [facility] Work Phone: 10-31-2023 Functional status Up ad laverne [facility] Work Phone: 04-28-2023 Functional status Ambulates;Up a d laverne;Bathroom Privilege [facility] Work Phone: 04-28-2023 Functional status Ambulates;Up a d laverne;Bathroom Privilege [facility] Work Phone: 12-24-2022 Functional status Ambulates [facility] Work Phone: 07-18-2022 Functional status Activity Ability Indepe ndent [facility] Work Phone: 07-17-2022 Functional status Up ad laverne [facility] Work Phone: 05-26-2022 Functional status Ambulates;Up ad laverne [facility] Work Phone: 03-22-2022 Functional status Activity Ability Indepe ndent [facility] Work Phone: 03-21-2022 Functional status Ambulates;Up ad laverne [facility] Work Phone: Mental Status Date Assessment Result Facility 04-18-2025 Cognitive function Voice/Name [facility] Work Phone: 03-29-2025 Cognitive function Level Of Cons ciousness Awake;Drowsy [facility] Work Phone: 11-12-2024 Cognitive function Voice/Name [facility] Work Phone: 10-22-2024 Cognitive function Voice/Name [facility] Work Phone: 10-31-2023 Cognitive function Voice/Name [facility] Work Phone: 10-15-2023 Cognitive function Level Of Cons ciousness Awake;Alert;Appropriate;Follow s Commands [facility] Work Phone: 09-01-2023 Cognitive function Level Of Cons ciousness Awake;Alert;Appropriate;Follow s Commands [facility] Work Phone: 04-28-2023 Cognitive function Voice/Name [facility] Work Phone: 02-23-2023 Cognitive function Level Of Cons ciousness Awake;Alert;Appropriate;Follow s Commands [facility] Work Phone: 12-24-2022 Cognitive function Speech Pattern Garbled [facility] Work Phone: 12-24-2022 Cognitive function Appropriate;Cooperativ e [facility] Work Phone: 12-01-2022 Cognitive function Level Of Cons ciousness Awake;Alert;Appropriate;Follow s Commands [facility] Work Phone: 10-23-2022 Cognitive function Level Of Cons ciousness Awake;Alert;Appropriate;Follow s Commands [facility] Work Phone: 08-14-2022 Cognitive function Level Of Cons ciousness Awake;Alert;Appropriate;Follow s Commands [facility] Work Phone: 07-18-2022 Cognitive function Guarded [facility] Work Phone: 07-17-2022 Cognitive function Mood Description Appro priate [facility] Work Phone: 05-26-2022 Cognitive function Voice/Name [facility] Work Phone: 03-22-2022 Cognitive function Drowsy [facility] Work Phone: 03-21-2022 Cognitive function Anxious [facility] Work Phone: 02-12-2022 Cognitive function Level Of Cons ciousness Awake;Alert;Appropriate;Follow s Commands [facility] Work Phone: Clinical Notes 11-03-2022 to 04-18-2025 Note Date & Type Note Facility 04-18-2025 Discharge summary Note Date/Time April 18, 2025 12:49pm [facility] Medical Records Department [address] [place] [address] Discharge Summary 04/18/25 1246 MR#: [id number] Acct: [id number] Name: MICHAEL MCNEILL SANTOS Rep #:[id number] : 1975 49 From: Tom Boland PCP: Care Physician,No Primary Status :ADM [id number] Prov[facility] Date of Admission: 04/16/25 Date of Discharge: 04/18/25 Primary Care Physician: No Primary Care Phys Reason For Visit: ETOH DETOX Diagnosis Discharge Diagnosis (1) Alcohol withdrawal: Status: Acute Code(s): F10.939 - Alcohol use, unspecified with withdrawal, unspecified Qualifiers: Complication of substance-induced condition: uncomplicated Qualified Code(s): F10.930 - Alcohol use, unspecified with withdrawal, uncomplicated (2) ETOH abuse: Status: Acute Code(s): F10.10 - Alcohol abuse, uncomplicated (3) Tobacco abuse: Status: Acute Code(s): Z72.0 - Tobacco use (4) Methamphetamine use: Status: Acute Code(s): F15.10 - Other stimulant abuse, uncomplicated (5) Marijuana use: Status: Acute Code(s): F12.90 - Cannabis use, unspecified, uncomplicated Plan 1. Early symptoms of EtOH withdrawal in the setting of chronic EtOH abuse -the patient is being admitted to MedSur floor. Patient on phenobarbital based order set along with other adjunctive medications gabapentin, Bentyl, Vistaril, clonidine, Klonopin as needed for alcohol withdrawal symptom control. Patient magda thiamine and folate acid. CIWA monitor. accounting systems manager 180 consulted. Discussed with Broderick, case management assistant. This is his nd admission. The patient did not want to see 18P as he has refused the service. 04/18: As per nursing staff, he is refusing phenobarbitone. He does not want to see 180 case management assistant as he had refused in the service in the past. Patient is discharged home. 2. Chronic alcoholic hepatitis: AST ALT have been elevated in the past. ALT more than AST. Repeat bili normal. 3. Smokeless Tobacco Abuse and history of methamphetamine abuse and cannabis use disorder tobacco cessation strongly recommended. Nicotine patch offered. History of methamphetamine abuse -U tox was negative. 4. History of asthma/COPD with emphysematous bullae with recent exacerbation causing visit to the ER here on March 30, 2025 -no acute flare at this time. 5. Other comorbidities include bipolar disorder, bilateral groin hernia, right more than left colon right inguinal hernia is more than left. Advised follow-upwith surgery as an outpatient. Not on treatment for bipolar disorder. DVT prophylaxis - Enoxaparin 40 mg sq daily. Full code verified Discharge medication reconciliation done. Discharge follow-up instructions completed. Discharge process discussed with the patient and all questions wereanswered to patient's satisfaction. Follow with PCP in 1 to 2 weeks Total time spent, exact 35 minutes on discharge meds reconciliation, examination, coordination of care with nurses and ancillary staff, review of imaging and blood test and discussion with the patient on follow-up instructions. Laboratory Results 04/16/25 21:55: WBC 7.9, RBC 4.43 L, Hgb 13.6, Hct 40.0, MCV 90.3, MCH 30.7, MCHC 34.0, RDW Std Deviation 41.8, RDW Coeff of Bridger 12.6, Plt Count 290, MPV 9.0, Immature Gran % (Auto) 0.300, Neut % (Auto) 71.0 H, Lymph % (Auto) 18.5 L, Wilkes % (Auto) 6.1, Eos % (Auto) 3.3, Baso % (Auto) 0.8, Absolute Neuts (auto) 5.6, Absolute Lymphs (auto) 1.46, Nucleated RBC % 0, Sodium 140, Potassium 4.3, Chloride 101, Carbon Dioxide 26.4, Anion Gap 12, BUN 22 H, Creatinine 0.97, Estim Creat Clear Calc 72.81, Est GFR (MDRD) Non-Af 96, BUN/Creatinine Ratio 22.4 H, Glucose 104 H, Calcium 10.0, Magnesium 2.0, Total Bilirubin 0.54, AST 44H, ALT 61 H, Alkaline Phosphatase 60, Total Protein 7.9, Albumin 4.5, Globulin 3.3, Albumin/Globulin Ratio 1.4, Ethyl Alcohol < 10.1 04/17/25 05:09: WBC 5.1, RBC 3.68 L, Hgb 11.4 L, Hct 33.0 L, MCV 89.7, MCH 31.0,MCHC 34.5, RDW Std Deviation 41.7, RDW Coeff of Bridger 12.7, Plt Count 241, MPV 9.4, Immature Gran % (Auto) 0.400, Neut % (Auto) 52.3, Lymph % (Auto) 27.5, Wilkes% (Auto) 9.0, Eos % (Auto) 9.8 H, Baso % (Auto) 1.0, Absolute Neuts (auto) 2.7, Absolute Lymphs (auto) 1.40, Nucleated RBC % 0, Sodium 138, Potassium 3.6, Chloride 104, Carbon Dioxide 24.1, Anion Gap 10, BUN 24 H, Creatinine 0.71, Estim Creat Clear Calc 98.44, Est GFR (MDRD) Non-Af 112, BUN/Creatinine Ratio 33.3 H, Glucose 92, Calcium 8.9, Phosphorus 4.5, Total Bilirubin 0.66, AST 35, ALT 44, Alkaline Phosphatase 46, Total Protein 6.1, Albumin 3.6, Globulin 2.4, Albumin/Globulin Ratio 1.5, TSH 0.819 04/17/25 06:50: Urine Color Yellow, Urine Clarity Clear, Urine pH 6.0, Ur Specific [place] 1.025, Urine Protein 30 H, Urine Glucose (UA) Normal, Urine Ketones 5 H, Urine Occult Blood Negative, Urine Nitrite Negative, Urine Bilirubin 1 H, Urine Urobilinogen 1 H, Ur Leukocyte Esterase Negative, Urine RBC0 SEEN, Urine WBC 0 SEEN, Ur Squamous Epith Cells 0 SEEN, Urine Bacteria 0 SEEN,Urine Mucus 1+, Urine Opiates Screen NEGATIVE, U Buprenorphine Qual NEGATIVE, Ur Oxycodone Screen NEGATIVE, Urine Methadone Screen NEGATIVE, Urine Fentanyl Screen NEGATIVE, Ur Barbiturates Screen PRESUMPTIVE POSITIVE, Ur Phencyclidine Scrn NEGATIVE, Ur Amphetamines Screen PRESUMPTIVE POSITIVE, U Benzodiazepines Scrn NEGATIVE, Urine Cocaine Screen NEGATIVE, U Cannabinoids Screen PRESUMPTIVE POSITIVE Medications at Discharge Home Medications NK 04/16/25 Physical Exam Narrative Seen and examined. As per nursing report, patient refusing medication for alcohol withdrawal. He has also refused for outpatient or inpatient rehab as per Broderick Patient states that he has been drinking alcohol about 2-3 tall boys, 2-3 times a week but previously was drinking more 4-5 every other day. Sometimes he also drinks hard liquor. Physical exam General: Alert, Oriented x3, Cooperative HEENT: Atraumatic, PERRLA, EOMI, Normocephalic. Oral: No Gingival or Mucosal Lesions/ Ulcerations Neck: Supple, No JVD, Negative Carotid Bruits Chest wall/Lungs: Air entry diminished in bilateral lung bases. No crepitation/rhonchi Cardiovascular: Regular rate and rhythm, Normal S1,S2, No M/G/R Abdomen: Bowel Sounds Present, Soft, Non Tender, Non-Distended. Liver not enlarged : No dysuria. No renal angle tenderness. No suprapubic tenderness. Extremities: No edema, Capillary Refill Less than 3 Seconds Skin: No rashes, No breakdown Musculoskeletal: No Tenderness to Palpation of Joints or Extremities Neurological: Cranial nerves II-XII grossly intact, DTR 2+/4. No acute focal neurological deficit. Psych/Mental Status: Normal Affect, Appropriate. Weight / BMI Weight Weight: 129 lb 3.054 oz Body Mass Index (BMI) 20.7 ABG / Lab / Microbiology Data 04/17/25 05:09 07/17/25 05:09 Laboratory: Laboratory Results - last 24 hr 04/18/25 07:50: Phosphorus 3.9 D/C Instructions Weight Bearing Status: Weight bearing as tolerated Call your doctor if you observe: Fever of 101 or Higher, Coldness, Increased Pain, Numbness or Tingling, Change in Color, Inability to urinate, Inability to have a bowel movement, Shortness of breath, Dizziness, Fainting spells, Swellingin the ankles, Chest pain, Prolonged hiccupping, Increased palpitations (irregular heartbeat) and Calf discomfort DC O2, CPAP, BIPAP Needs Home O2 Discharge instructions: No When: IN 2 WEEKS Meaningful Use Info Meaningful Use Meaningful Use Diagnoses (Choose all that apply): None applicable Discharge Plan Admission Admit Date/Time: 04/16/25 23:00 Primary Reason for Your Visit: Alcohol withdrawal Attending Provider: Tom Owen Primary Care Provider: Care Physician,No Primary Consulting Providers: Jaquan Villarreal Instructions Additional Instructions / Restrictions: Follow-up with 180 outpatient Discharge Orders/Prescriptions Prescriptions: No Action NK Referrals / Follow Up: Care Physician,No Primary [Primary Care Provider] - Disposition Disposition (needs filled in before D/C Order can be placed): Home, Self Care Charges/Coding Visit Charges Inpatient E&M: 30007 Disch Hosp >30min 04/18/25 1249 <Electronically signed by Tom Owen MD> Cosigner Signature (if applicable): CC: Dr. Tom Owen MD; No Primary Care Physician~ Signed [facility] Work Phone: 1(763) 497-768007-18-2025 Discharge summary Author Tom Owen [facility] Note Date/Time April 18, 2025 12:4 6pm [facility] Medical Records Department [address] [place] [address] Instructions for Home/Discharge Instructions 04/18/25 1045 MR#: [id number] Acct: [id number] Name: MICHAEL MCNEILL Rep #:[id number] : 1975 49 From: Tom Boland PCP: Care Physician,No Primary Status :ADM IN Discharge Instructions DC O2, CPAP, BIPAP needs Home O2 Discharge instructions: No Dressing / Incision Discharge Activity: Return to Normal Activity Weight Bearing Status: Weight bearing as tolerated Dressing / Incision Call your doctor if you observe: Fever of 101 or Higher, Coldness, Increased Pain, Numbness or Tingling, Change in Color, Inability to urinate, Inability to have a bowel movement, Shortness of breath, Dizziness, Fainting spells, Swellingin the ankles, Chest pain, Prolonged hiccupping, Increased palpitations (irregular heartbeat) and Calf discomfort Follow Up Care When: IN 2 WEEKS Test Results: Test results from this visit will be discussed in further detail at your follow- up appointment, if applicable. Discharge Plan Admission Admit Date/Time: 04/16/25 23:00 Primary Reason for Your Visit: Alcohol withdrawal Attending Provider: Tom Owen Primary Care Provider: Care Physician,No Primary Consulting Providers: Jaquan Villarreal Instructions Additional Instructions / Restrictions: Follow-up with 180 outpatient Discharge Orders/Prescriptions Prescriptions: No Action NK Referrals / Follow Up: Care Physician,No Primary [Primary Care Provider] - Disposition Disposition (needs filled in before D/C Order can be placed): Home, Self Care 04/18/25 1246<Electronically signed by Tom Owen MD>Tom Owen MD CC: Dr. Jaquan Villarreal, DO; No Primary Care Physician ~ Signed [facility] Work Phone: 1(816) 495-574407-18-2025 Hospital Discharge instructionsAdditional Instructions Follow-up with 180 outpatient Date of Discharge: 04/18/25[facility] Work Phone: 1(751) 187-116907-18-2025 Discharge summary [facility] Medical Records Department [address] [place] [address] Discharge Summary 04/18/25 1246 MR#: [id number] Acct: [id number] Name: MICHAEL MCNEILL SANTOS Rep #:[id number] : 1975 49 From: Tom Boland PCP: Care Physician,No Primary Status :ADM IN [facility] [id number] Providers Date of Admission: 04/16/25 Date of Discharge: 04/18/25 Primary Care Physician: No Primary Care Phys Reason For Visit: ETOH DETOX Diagnosis Discharge Diagnosis (1) Alcohol withdrawal: Status: Acute Code(s): F10.939 - Alcohol use, unspecified with withdrawal, unspecified Qualifiers: Complication of substance-induced condition: uncomplicated Qualified Code(s): F10.930 - Alcohol use, unspecified with withdrawal, uncomplicated (2) ETOH abuse: Status: Acute Code(s): F10.10 - Alcohol abuse, uncomplicated (3) Tobacco abuse: Status: Acute Code(s): Z72.0 - Tobacco use (4) Methamphetamine use: Status: Acute Code(s): F15.10 - Other stimulant abuse, uncomplicated (5) Marijuana use: Status: Acute Code(s): F12.90 - Cannabis use, unspecified, uncomplicated Plan 1. Early symptoms of EtOH withdrawal in the setting of chronic EtOH abuse -the patient is being admitted to MedSur floor. Patient on phenobarbital based order set along with other adjunctive medications gabapentin, Bentyl, Vistaril, clonidine, Klonopin as needed for alcohol withdrawal symptom control. Patient magda thiamine and folate acid. CIWA monitor. accounting systems manager 180 consulted. Discussed with Broderick case management assistant. This is his nd admission. The patient did not want to see 18P as he has refused the service. 04/18: As per nursing staff, he is refusing phenobarbitone. He does not want to see 180 case manageras he had refused in the service in the past. Patient is discharged home. 2. Chronic alcoholic hepatitis: AST ALT have been elevated in the past. ALT more than AST. Repeat bili normal. 3. Smokeless Tobacco Abuse and history of methamphetamine abuse and cannabis use disorder tobacco cessation strongly recommended. Nicotine patch offered. History of methamphetamine abuse -U tox was negative. 4. History of asthma/COPD with emphysematous bullae with recent exacerbation causing visit to the ER here on March 30, 2025 -no acute flare at this time. 5. Other comorbidities include bipolar disorder, bilateral groin hernia, right more than left colonright inguinal hernia is more than left. Advised follow- upwith surgery as an outpatient. Not on treatment for bipolar disorder. DVT prophylaxis - Enoxaparin 40 mg sq daily. Full code verified Discharge medication reconciliation done. Discharge follow-up instructions completed. Discharge process discussed with the patient and all questions wereanswered to patient's satisfaction. Follow with PCP in 1 to 2 weeks Total time spent, exact 35 minutes on discharge meds reconciliation, examination, coordination of care with nurses and ancillary staff, review of imaging and blood test and discussion with the patient on follow-up instructions. Laboratory Results 04/16/25 21:55: WBC 7.9, RBC 4.43 L, Hgb 13.6, Hct 40.0, MCV 90.3, MCH 30.7, MCHC 34.0, RDW Std Deviation 41.8, RDW Coeff of Bridger 12.6, Plt Count 290, MPV 9.0, Immature Gran % (Auto) 0.300, Neut % (Auto) 71.0 H, Lymph % (Auto) 18.5 L, Wilkes % (Auto) 6.1, Eos % (Auto) 3.3, Baso % (Auto) 0.8, Absolute Neuts (auto) 5.6, Absolute Lymphs (auto) 1.46, Nucleated RBC % 0, Sodium 140, Potassium 4.3, Chloride 101, Carbon Dioxide 26.4, Anion Gap 12, BUN 22 H, Creatinine 0.97, Estim Creat Clear Calc 72.81, Est GFR (MDRD) Non-Af 96, BUN/Creatinine Ratio 22.4 H, Glucose 104 H, Calcium 10.0, Magnesium 2.0, Total Bilirubin 0.54, AST 44H, ALT 61 H, Alkaline Phosphatase 60, Total Protein 7.9, Albumin 4.5, Globulin 3.3, Albumin/Globulin Ratio 1.4, Ethyl Alcohol < 10.1 04/17/25 05:09: WBC 5.1, RBC 3.68 L, Hgb 11.4 L, Hct 33.0 L, MCV 89.7, MCH 31.0,MCHC 34.5, RDW Std Deviation 41.7, RDW Coeff of Bridger 12.7, Plt Count 241, MPV 9.4, Immature Gran % (Auto) 0.400, Neut % (Auto) 52.3, Lymph % (Auto) 27.5, Wilkes% (Auto) 9.0, Eos % (Auto) 9.8 H, Baso % (Auto) 1.0, Absolute Neuts (auto) 2.7, Absolute Lymphs (auto) 1.40, Nucleated RBC % 0, Sodium 138, Potassium 3.6, Chloride 104, Carbon Dioxide 24.1, Anion Gap 10, BUN 24 H, Creatinine 0.71, Estim Creat Clear Calc 98.44, Est GFR (MDRD) Non-Af 112, BUN/Creatinine Ratio 33.3 H, Glucose 92, Calcium 8.9, Phosphorus 4.5, Total Bilirubin 0.66, AST 35, ALT 44, Alkaline Phosphatase 46, Total Protein 6.1, Albumin 3.6, Globulin 2.4, Albumin/Globulin Ratio 1.5, TSH 0.819 04/17/25 06:50: Urine Color Yellow, Urine Clarity Clear, Urine pH 6.0, Ur Specific [place] 1.025, Urine Protein 30 H, Urine Glucose (UA) Normal, Urine Ketones 5 H, Urine Occult Blood Negative, Urine Nitrite Negative, Urine Bilirubin 1 H, Urine Urobilinogen 1 H, Ur Leukocyte Esterase Negative, UrineRBC0 SEEN, Urine WBC 0 SEEN, Ur Squamous Epith Cells 0 SEEN, Urine Bacteria 0 SEEN,Urine Mucus 1+, Urine Opiates Screen NEGATIVE, U Buprenorphine Qual NEGATIVE, Ur Oxycodone Screen NEGATIVE, Urine Methadone Screen NEGATIVE, Urine Fentanyl Screen NEGATIVE, Ur Barbiturates Screen PRESUMPTIVE POSITIVE, Ur Phencyclidine Scrn NEGATIVE, Ur Amphetamines Screen PRESUMPTIVE POSITIVE, U Benzodiazepines Scrn NEGATIVE, Urine Cocaine Screen NEGATIVE, U Cannabinoids Screen PRESUMPTIVE POSITIVE Medications at Discharge Home Medications NK 04/16/25 Physical Exam Narrative Seen and examined. As per nursing report, patient refusing medication for alcohol withdrawal. He has also refused for outpatient or inpatient rehab as per Broderick Patient states that he has been drinking alcohol about 2-3 tall boys, 2-3 times a week but previously was drinking more 4-5 every other day. Sometimes he also drinks hard liquor. Physical exam General: Alert, Oriented x3, Cooperative HEENT: Atraumatic, PERRLA, EOMI, Normocephalic. Oral: No Gingival or Mucosal Lesions/ Ulcerations Neck: Supple, No JVD, Negative Carotid Bruits Chest wall/Lungs: Air entry diminished in bilateral lung bases. No crepitation/rhonchi Cardiovascular: Regular rate and rhythm, Normal S1,S2, No M/G/R Abdomen: Bowel Sounds Present, Soft, Non Tender, Non-Distended. Liver not enlarged : No dysuria. No renal angle tenderness. No suprapubic tenderness. Extremities: No edema, Capillary Refill Less than 3 Seconds Skin: No rashes, No breakdown Musculoskeletal: No Tenderness to Palpation of Joints or Extremities Neurological: Cranial nerves II-XII grossly intact, DTR 2+/4. No acute focal neurological deficit. Psych/Mental Status: Normal Affect, Appropriate. Weight / BMI Weight Weight: 129 lb 3.054 oz Body Mass Index (BMI) 20.7 ABG / Lab / Microbiology Data 04/17/25 05:09 04/17/25 05:09 Laboratory: Laboratory Results - last 24 hr 04/18/25 07:50: Phosphorus 3.9 D/C Instructions Weight Bearing Status: Weight bearing as tolerated Call your doctor if you observe: Fever of 101 or Higher, Coldness, Increased Pain, Numbness or Tingling, Change in Color, Inability to urinate, Inability to have a bowel movement, Shortness of breath, Dizziness, Fainting spells, Swellingin the ankles, Chest pain, Prolonged hiccupping, Increased palpitations (irregular heartbeat) and Calf discomfort DC O2, CPAP, BIPAP Needs Home O2 Discharge instructions: No When: IN 2 WEEKS Meaningful Use Info Meaningful Use Meaningful Use Diagnoses (Choose all that apply): None applicable Discharge Plan Admission Admit Date/Time: 04/16/25 23:00 Primary Reason for Your Visit: Alcohol withdrawal Attending Provider: Tom Owen Primary Care Provider: Care Physician,No Primary Consulting Providers: Jaquan Villarreal Instructions Additional Instructions / Restrictions: Follow-up with 180 outpatient Discharge Orders/Prescriptions Prescriptions: No Action NK Referrals / Follow Up: Care Physician,No Primary [Primary Care Provider] - Disposition Disposition (needs filled in before D/C Order can be placed): Home, Self Care Charges/Coding Visit Charges Inpatient E&M: 65662 Disch Hosp >30min 04/18/25 1249 Cosigner Signature (if applicable): CC: Dr. Tom Owen MD; No Primary Care Physician~ Signed [facility]07-18-2025 Discharge summary [facility] Medical Records Department [address] [place] [address] Instructions for Home/Discharge Instructions 04/18/25 1045 MR#: [id number] Acct: [id number] Name: MICHAEL MCNEILL SANTOS Rep #:[id number] : 1975 49 From: Tom Boland PCP: Care Physician,No Primary Status :ADM IN Discharge Instructions DC O2, CPAP, BIPAP needs Home O2 Discharge instructions: No Dressing / Incision Discharge Activity: Return to Normal Activity Weight Bearing Status: Weight bearing as tolerated Dressing / Incision Call your doctor if you observe: Fever of 101 or Higher, Coldness, Increased Pain, Numbness or Tingling, Change in Color, Inability to urinate, Inability to have a bowel movement, Shortness of breath, Dizziness, Fainting spells, Swellingin the ankles, Chest pain, Prolonged hiccupping, Increased palpitations (irregular heartbeat) and Calf discomfort Follow Up Care When: IN 2 WEEKS Test Results: Test results from this visit will be discussed in further detail at your follow- up appointment, if applicable. Discharge Plan Admission Admit Date/Time: 04/16/25 23:00 Primary Reason for Your Visit: Alcohol withdrawal Attending Provider: Tom Owen Primary Care Provider: Care Physician,No Primary Consulting Providers: Jaquan Villarreal Instructions Additional Instructions / Restrictions: Follow-up with 180 outpatient Discharge Orders/Prescriptions Prescriptions: No Action NK Referrals / Follow Up: Care Physician,No Primary [Primary Care Provider] - Disposition Disposition (needs filled in before D/C Order can be placed): Home, Self Care 04/18/25 1246Tom Owen MD CC: Dr. Jaquan Villarreal DO; No Primary Care Physician ~ Signed [facility]07-18-2025 [facility]07-18-2025 Discharge summary Author Tom Owen [facility] Note Date/Time April 18, 2025 12:4 6pm [facility] Medical Records Department [address] [place] [id number] Instructions for Home/Discharge Instructions 04/18/25 1045 MR#: [id number] Acct: [id number] Name: MARKELLMICHAEL APARICIO SANTOS Rep #:[id number] : 1975 49 From: Tom Boland PCP: Care Physician,No Primary Status :ADM IN Discharge Instructions DC O2, CPAP, BIPAP needs Home O2 Discharge instructions: No Dressing / Incision Discharge Activity: Return to Normal Activity Weight Bearing Status: Weight bearing as tolerated Dressing / Incision Call your doctor if you observe: Fever of 101 or Higher, Coldness, Increased Pain, Numbness or Tingling, Change in Color, Inability to urinate, Inability to have a bowel movement, Shortness of breath, Dizziness, Fainting spells, Swellingin the ankles, Chest pain, Prolonged hiccupping, Increased palpitations (irregular heartbeat) and Calf discomfort Follow Up Care When: IN 2 WEEKS Test Results: Test results from this visit will be discussed in further detail at your follow- up appointment, if applicable. Discharge Plan Admission Admit Date/Time: 04/16/25 23:00 Primary Reason for Your Visit: Alcohol withdrawal Attending Provider: Tom Owen Primary Care Provider: Care Physician,No Primary Consulting Providers: Jaquan Villarreal Instructions Additional Instructions / Restrictions: Follow-up with 180 outpatient Discharge Orders/Prescriptions Prescriptions: No Action NK Referrals / Follow Up: Care Physician,No Primary [Primary Care Provider] - Disposition Disposition (needs filled in before D/C Order can be placed): Home, Self Care 04/18/25 1246<Electronically signed by Tom Owen MD>Tom Owen MD CC: Dr. Jaquan Villarreal DO; No Primary Care Physician ~ Signed [facility] Work Phone: 1(953) 621-862807-17-2025 Progress note Author Tom Owen [facility] Note Date/Time April 17, 2025 3:25 pm [facility] Medical Records Department [address] [place] [address] Progress Note - Hospitalist 04/17/25713 MR#: [id number] Acct: [id number] Name: MICHAEL MCNEILL SANTOS Rep #:[id number] : 1975 49 From: Tom Boland PCP: Care Physician,No Primary Status :ADM IN Location: [place] [address] Reason for Visit Chief Complaint: Requesting EtOH Detox. Objective Data Objective Data Vital Signs: Vital Signs Temp Pulse Resp BP Pulse Ox O2 Del Method 97.8 F 73 16 102/59 L 98 Room Air 04/17/25 04:00 04/17/25 04:00 04/17/25 04:00 04/17/25 04:00 04/17/25 04:00 04/17/25 04:00 Oxygen Delivery Method Room Air Weight: 121 lb 14.65 oz Body Mass Index (BMI) 19.5 Intake & Output: Intake and Output for Last 24 Hours 04/15/25 04/16/25 04/17/25 23:59 23:59 23:59 Intake Total 1000 / 1000 Balance 1000 / 1000 Lab / Micro Data 04/17/25 05:09 04/17/25 05:09 Labs: Laboratory Results - last 24 hr 04/16/25 21:55: WBC 7.9, RBC 4.43 L, Hgb 13.6, Hct 40.0, MCV 90.3, MCH 30.7, MCHC 34.0, RDW Std Deviation 41.8, RDW Coeff of Bridger 12.6, Plt Count 290, MPV 9.0, Immature Gran % (Auto) 0.300, Neut % (Auto) 71.0 H, Lymph % (Auto) 18.5 L, Wilkes % (Auto) 6.1, Eos % (Auto) 3.3, Baso % (Auto) 0.8, Absolute Neuts (auto) 5.6, Absolute Lymphs (auto) 1.46, Nucleated RBC % 0, Sodium 140, Potassium 4.3, Chloride 101, Carbon Dioxide 26.4, Anion Gap 12, BUN 22 H, Creatinine 0.97, Estim Creat Clear Calc 72.81, Est GFR (MDRD) Non-Af 96, BUN/Creatinine Ratio 22.4 H, Glucose 104 H, Calcium 10.0, Magnesium 2.0, Total Bilirubin 0.54, AST 44H, ALT 61 H, Alkaline Phosphatase 60, Total Protein 7.9, Albumin 4.5, Globulin 3.3, Albumin/Globulin Ratio 1.4, Ethyl Alcohol < 10.1 04/17/25 05:09: WBC 5.1, RBC 3.68 L, Hgb 11.4 L, Hct 33.0 L, MCV 89.7, MCH 31.0,MCHC 34.5, RDW Std Deviation 41.7, RDW Coeff of Bridger 12.7, Plt Count 241, MPV 9.4, Immature Gran % (Auto) 0.400, Neut % (Auto) 52.3, Lymph % (Auto) 27.5, Wilkes% (Auto) 9.0, Eos % (Auto) 9.8 H, Baso % (Auto) 1.0, Absolute Neuts (auto) 2.7, Absolute Lymphs (auto) 1.40, Nucleated RBC % 0, Sodium 138, Potassium 3.6, Chloride 104, Carbon Dioxide 24.1, Anion Gap 10, BUN 24 H, Creatinine 0.71, Estim Creat Clear Calc 98.44, Est GFR (MDRD) Non-Af 112, BUN/Creatinine Ratio 33.3 H, Glucose 92, Calcium 8.9, Phosphorus 4.5, Total Bilirubin 0.66, AST 35, ALT 44, Alkaline Phosphatase 46, Total Protein 6.1, Albumin 3.6, Globulin 2.4, Albumin/Globulin Ratio 1.5, TSH 0.819 04/17/25 06:50: Urine Color Yellow, Urine Clarity Clear, Urine pH 6.0, Ur Specific [place] 1.025, Urine Protein 30 H, Urine Glucose (UA) Normal, Urine Ketones 5 H, Urine Occult Blood Negative, Urine Nitrite Negative, Urine Bilirubin 1 H, Urine Urobilinogen 1 H, Ur Leukocyte Esterase Negative Physical Exam Narrative Seen and examined. Patient states that he has been drinking alcohol about 2-3 tall boys, 2-3 times a week but previously was drinking more 4-5 every other day. Sometimes he also drinks hard liquor. Physical exam General: Alert, Oriented x3, Cooperative HEENT: Atraumatic, PERRLA, EOMI, Normocephalic. Oral: No Gingival or Mucosal Lesions/ Ulcerations Neck: Supple, No JVD, Negative Carotid Bruits Chest wall/Lungs: Air entry diminished in bilateral lung bases. No crepitation/rhonchi Cardiovascular: Regular rate and rhythm, Normal S1,S2, No M/G/R Abdomen: Bowel Sounds Present, Soft, Non Tender, Non-Distended. Liver not enlarged : No dysuria. No renal angle tenderness. No suprapubic tenderness. Extremities: No edema, Capillary Refill Less than 3 Seconds Skin: No rashes, No breakdown Musculoskeletal: No Tenderness to Palpation of Joints or Extremities Neurological: Cranial nerves II-XII grossly intact, DTR 2+/4. No acute focal neurological deficit. Psych/Mental Status: Normal Affect, Appropriate. Assessment & Plan Assessment/Plan (1) Alcohol withdrawal: QUALIFIERS: Complication of substance-induced condition: uncomplicated Qualified Code(s): F10.930 - Alcohol use, unspecified with withdrawal, uncomplicated (2) ETOH abuse: (3) Tobacco abuse: (4) Methamphetamine use: (5) Marijuana use: PLAN: Plan 1. Early symptoms of EtOH withdrawal in the setting of chronic EtOH abuse -the patient is being admitted to [facility] floor. Patient on phenobarbital based order set along with other adjunctive medications gabapentin, Bentyl, Vistaril, clonidine, Klonopin as needed for alcohol withdrawal symptom control. Patient magda thiamine and folate acid. CIWA monitor. accounting systems manager 180 consulted. Discussed with Broderick case management assistant. This is his 22nd admission. The patient did not want to see 18P as he has refused the service. 2. Chronic alcoholic hepatitis: AST ALT have been elevated in the past. ALT more than AST. Repeat bili normal. 3. Smokeless Tobacco Abuse and history of methamphetamine abuse and cannabis use disorder tobacco cessation strongly recommended. Nicotine patch offered. History of methamphetamine abuse -U tox was negative. 4. History of asthma/COPD with emphysematous bullae with recent exacerbation causing visit to the ER here on March 30, 2025 -no acute flare at this time. 5. Other comorbidities include bipolar disorder, bilateral groin hernia, right more than left colon right inguinal hernia is more than left. Advised follow-upwith surgery as an outpatient. Not on treatment for bipolar disorder. DVT prophylaxis - Enoxaparin 40 mg sq daily. Full code verified Laboratory Results 04/16/25 21:55: WBC 7.9, RBC 4.43 L, Hgb 13.6, Hct 40.0, MCV 90.3, MCH 30.7, MCHC 34.0, RDW Std Deviation 41.8, RDW Coeff of Bridger 12.6, Plt Count 290, MPV 9.0, Immature Gran % (Auto) 0.300, Neut % (Auto) 71.0 H, Lymph % (Auto) 18.5 L, Wilkes % (Auto) 6.1, Eos % (Auto) 3.3, Baso % (Auto) 0.8, Absolute Neuts (auto) 5.6, Absolute Lymphs (auto) 1.46, Nucleated RBC % 0, Sodium 140, Potassium 4.3, Chloride 101, Carbon Dioxide 26.4, Anion Gap 12, BUN 22 H, Creatinine 0.97, Estim Creat Clear Calc 72.81, Est GFR (MDRD) Non-Af 96, BUN/Creatinine Ratio 22.4 H, Glucose 104 H, Calcium 10.0, Magnesium 2.0, Total Bilirubin 0.54, AST 44H, ALT 61 H, Alkaline Phosphatase 60, Total Protein 7.9, Albumin 4.5, Globulin 3.3, Albumin/Globulin Ratio 1.4, Ethyl Alcohol < 10.1 04/17/25 05:09: WBC 5.1, RBC 3.68 L, Hgb 11.4 L, Hct 33.0 L, MCV 89.7, MCH 31.0,MCHC 34.5, RDW Std Deviation 41.7, RDW Coeff of Bridger 12.7, Plt Count 241, MPV 9.4, Immature Gran % (Auto) 0.400, Neut % (Auto) 52.3, Lymph % (Auto) 27.5, Wilkes% (Auto) 9.0, Eos % (Auto) 9.8 H, Baso % (Auto) 1.0, Absolute Neuts (auto) 2.7, Absolute Lymphs (auto) 1.40, Nucleated RBC % 0, Sodium 138, Potassium 3.6, Chloride 104, Carbon Dioxide 24.1, Anion Gap 10, BUN 24 H, Creatinine 0.71, Estim Creat Clear Calc 98.44, Est GFR (MDRD) Non-Af 112, BUN/Creatinine Ratio 33.3 H, Glucose 92, Calcium 8.9, Phosphorus 4.5, Total Bilirubin 0.66, AST 35, ALT 44, Alkaline Phosphatase 46, Total Protein 6.1, Albumin 3.6, Globulin 2.4, Albumin/Globulin Ratio 1.5, TSH 0.819 04/17/25 06:50: Urine Color Yellow, Urine Clarity Clear, Urine pH 6.0, Ur Specific [place] 1.025, Urine Protein 30 H, Urine Glucose (UA) Normal, Urine Ketones 5 H, Urine Occult Blood Negative, Urine Nitrite Negative, Urine Bilirubin 1 H, Urine Urobilinogen 1 H, Ur Leukocyte Esterase Negative, Urine RBC0 SEEN, Urine WBC 0 SEEN, Ur Squamous Epith Cells 0 SEEN, Urine Bacteria 0 SEEN,Urine Mucus 1+, Urine Opiates Screen NEGATIVE, U Buprenorphine Qual NEGATIVE, Ur Oxycodone Screen NEGATIVE, Urine Methadone Screen NEGATIVE, Urine Fentanyl Screen NEGATIVE, Ur Barbiturates Screen PRESUMPTIVE POSITIVE, Ur Phencyclidine Scrn NEGATIVE, Ur Amphetamines Screen PRESUMPTIVE POSITIVE, U Benzodiazepines Scrn NEGATIVE, Urine Cocaine Screen NEGATIVE, U Cannabinoids Screen PRESUMPTIVE POSITIVE Charges/Coding Visit Charges Inpatient E&M: 45166 Subs Hosp L2 04/17/25 1525 <Electronically signed by Tom Owen MD> Cosigner Signature (if applicable): CC: ~ Signed [facility] Work Phone: 1(345) 677-719107-17-2025 Progress note [facility] Medical Records Department [address] [place] [address] Progress Note - Hospitalist 04/17/25 0714 MR#: [id number] Acct: [id number] Name: MICHAEL MCNEILL SANTOS Rep #:[id number] : 1975 49 From: Tom Boland PCP: Care Physician,No Primary Status :ADM IN [place] [facility] [id number] Reason for Visit Chief Complaint: Requesting EtOH Detox. Objective Data Objective Data Vital Signs: Vital Signs Temp Pulse Resp BP Pulse Ox O2 Del Method 97.8 F 73 16 102/59 L 98 Room Air 04/17/25 04:00 04/17/25 04:00 04/17/25 04:00 04/17/25 04:00 04/17/25 04:00 04/17/25 04:00 Oxygen Delivery Method Room Air Weight: 121 lb 14.65 oz Body Mass Index (BMI) 19.5 Intake & Output: Intake and Output for Last 24 Hours 04/15/25 04/16/25 04/17/25 23:59 23:59 23:59 Intake Total 1000 / 1000 Balance 1000 / 1000 Lab / Micro Data 04/17/25 05:09 04/17/25 05:09 Labs: Laboratory Results - last 24 hr 04/16/25 21:55: WBC 7.9, RBC 4.43 L, Hgb 13.6, Hct 40.0, MCV 90.3, MCH 30.7, MCHC 34.0, RDW Std Deviation 41.8, RDW Coeff of Bridger 12.6, Plt Count 290, MPV 9.0, Immature Gran % (Auto) 0.300, Neut % (Auto) 71.0 H, Lymph % (Auto) 18.5 L, Wilkes % (Auto) 6.1, Eos % (Auto) 3.3, Baso % (Auto) 0.8, Absolute Neuts (auto) 5.6, Absolute Lymphs (auto) 1.46, Nucleated RBC % 0, Sodium 140, Potassium 4.3, Chloride 101, Carbon Dioxide 26.4, Anion Gap 12, BUN 22 H, Creatinine 0.97, Estim Creat Clear Calc 72.81, Est GFR (MDRD) Non-Af 96, BUN/Creatinine Ratio 22.4 H, Glucose 104 H, Calcium 10.0, Magnesium 2.0, Total Bilirubin 0.54, AST 44H, ALT 61 H, Alkaline Phosphatase 60, Total Protein 7.9, Albumin 4.5, Globulin 3.3, Albumin/Globulin Ratio 1.4, Ethyl Alcohol < 10.1 04/17/25 05:09: WBC 5.1, RBC 3.68 L, Hgb 11.4 L, Hct 33.0 L, MCV 89.7, MCH 31.0,MCHC 34.5, RDW Std Deviation 41.7, RDW Coeff of Bridger 12.7, Plt Count 241, MPV 9.4, Immature Gran % (Auto) 0.400, Neut % (Auto) 52.3, Lymph % (Auto) 27.5, Wilkes% (Auto) 9.0, Eos % (Auto) 9.8 H, Baso % (Auto) 1.0, Absolute Neuts (auto) 2.7, Absolute Lymphs (auto) 1.40, Nucleated RBC % 0, Sodium 138, Potassium 3.6, Chloride 104, Carbon Dioxide 24.1, Anion Gap 10, BUN 24 H, Creatinine 0.71, Estim Creat Clear Calc 98.44, Est GFR (MDRD) Non-Af 112, BUN/Creatinine Ratio 33.3 H, Glucose 92, Calcium 8.9, Phosphorus 4.5, Total Bilirubin 0.66, AST 35, ALT 44, Alkaline Phosphatase 46, Total Protein 6.1, Albumin 3.6, Globulin 2.4, Albumin/Globulin Ratio 1.5, TSH 0.819 04/17/25 06:50: Urine Color Yellow, Urine Clarity Clear, Urine pH 6.0, Ur Specific [place] 1.025, Urine Protein 30 H, Urine Glucose (UA) Normal, Urine Ketones 5 H, Urine Occult Blood Negative, Urine Nitrite Negative, Urine Bilirubin 1 H, Urine Urobilinogen 1 H, Ur Leukocyte Esterase Negative Physical Exam Narrative Seen and examined. Patient states that he has been drinking alcohol about 2-3 tall boys, 2-3 times a week but previously was drinking more 4-5 every other day. Sometimes he also drinks hard liquor. Physical exam General: Alert, Oriented x3, Cooperative HEENT: Atraumatic, PERRLA, EOMI, Normocephalic. Oral: No Gingival or Mucosal Lesions/ Ulcerations Neck: Supple, No JVD, Negative Carotid Bruits Chest wall/Lungs: Air entry diminished in bilateral lung bases. No crepitation/rhonchi Cardiovascular: Regular rate and rhythm, Normal S1,S2, No M/G/R Abdomen: Bowel Sounds Present, Soft, Non Tender, Non-Distended. Liver not enlarged : No dysuria. No renal angle tenderness. No suprapubic tenderness. Extremities: No edema, Capillary Refill Less than 3 Seconds Skin: No rashes, No breakdown Musculoskeletal: No Tenderness to Palpation of Joints or Extremities Neurological: Cranial nerves II-XII grossly intact, DTR 2+/4. No acute focal neurological deficit. Psych/Mental Status: Normal Affect, Appropriate. Assessment & Plan Assessment/Plan (1) Alcohol withdrawal: QUALIFIERS: Complication of substance-induced condition: uncomplicated Qualified Code(s): F10.930 -Alcohol use, unspecified with withdrawal, uncomplicated (2) ETOH abuse: (3) Tobacco abuse: (4) Methamphetamine use: (5) Marijuana use: PLAN: Plan 1. Early symptoms of EtOH withdrawal in the setting of chronic EtOH abuse -the patient is being admitted to [facility] floor. Patient on phenobarbital based order set along with other adjunctive medications gabapentin, Bentyl, Vistaril, clonidine, Klonopin as needed for alcohol withdrawal symptom control. Patient magda thiamine and folate acid. CIWA monitor. accounting systems manager 180 consulted. Discussed with Broderick case management assistant. This is his 22nd admission. The patient did not want to see 18P as he has refused the service. 2. Chronic alcoholic hepatitis: AST ALT have been elevated in the past. ALT more than AST. Repeat bili normal. 3. Smokeless Tobacco Abuse and history of methamphetamine abuse and cannabis use disorder tobacco cessation strongly recommended. Nicotine patch offered. History of methamphetamine abuse -U tox was negative. 4. History of asthma/COPD with emphysematous bullae with recent exacerbation causing visit to the ER here on March 30, 2025 -no acute flare at this time. 5. Other comorbidities include bipolar disorder, bilateral groin hernia, right more than left colonright inguinal hernia is more than left. Advised follow- upwith surgery as an outpatient. Not on treatment for bipolar disorder. DVT prophylaxis - Enoxaparin 40 mg sq daily. Full code verified Laboratory Results 04/16/25 21:55: WBC 7.9, RBC 4.43 L, Hgb 13.6, Hct 40.0, MCV 90.3, MCH 30.7, MCHC 34.0, RDW Std Deviation 41.8, RDW Coeff of Bridger 12.6, Plt Count 290, MPV 9.0, Immature Gran % (Auto) 0.300, Neut % (Auto) 71.0 H, Lymph % (Auto) 18.5 L, Wilkes % (Auto) 6.1, Eos % (Auto) 3.3, Baso % (Auto) 0.8, Absolute Neuts (auto) 5.6, Absolute Lymphs (auto) 1.46, Nucleated RBC % 0, Sodium 140, Potassium 4.3, Chloride 101, Carbon Dioxide 26.4, Anion Gap 12, BUN 22 H, Creatinine 0.97, Estim Creat Clear Calc 72.81, Est GFR (MDRD) Non-Af 96, BUN/Creatinine Ratio 22.4 H, Glucose 104 H, Calcium 10.0, Magnesium 2.0, Total Bilirubin 0.54, AST 44H, ALT 61 H, Alkaline Phosphatase 60, Total Protein 7.9, Albumin 4.5, Globulin 3.3, Albumin/Globulin Ratio 1.4, Ethyl Alcohol < 10.1 04/17/25 05:09: WBC 5.1, RBC 3.68 L, Hgb 11.4 L, Hct 33.0 L, MCV 89.7, MCH 31.0,MCHC 34.5, RDW Std Deviation 41.7, RDW Coeff of Bridger 12.7, Plt Count 241, MPV 9.4, Immature Gran % (Auto) 0.400, Neut % (Auto) 52.3, Lymph % (Auto) 27.5, Wilkes% (Auto) 9.0, Eos % (Auto) 9.8 H, Baso % (Auto) 1.0, Absolute Neuts (auto) 2.7, Absolute Lymphs (auto) 1.40, Nucleated RBC % 0, Sodium 138, Potassium 3.6, Chloride 104, Carbon Dioxide 24.1, Anion Gap 10, BUN 24 H, Creatinine 0.71, Estim Creat Clear Calc 98.44, Est GFR (MDRD) Non-Af 112, BUN/Creatinine Ratio 33.3 H, Glucose 92, Calcium 8.9, Phosphorus 4.5, Total Bilirubin 0.66, AST 35, ALT 44, Alkaline Phosphatase 46, Total Protein 6.1, Albumin 3.6, Globulin 2.4, Albumin/Globulin Ratio 1.5, TSH 0.819 04/17/25 06:50: Urine Color Yellow, Urine Clarity Clear, Urine pH 6.0, Ur Specific [place] 1.025, Urine Protein 30 H, Urine Glucose (UA) Normal, Urine Ketones 5 H, Urine Occult Blood Negative, Urine Nitrite Negative, Urine Bilirubin 1 H, Urine Urobilinogen 1 H, Ur Leukocyte Esterase Negative, UrineRBC0 SEEN, Urine WBC 0 SEEN, Ur Squamous Epith Cells 0 SEEN, Urine Bacteria 0 SEEN,Urine Mucus 1+, Urine Opiates Screen NEGATIVE, U Buprenorphine Qual NEGATIVE, Ur Oxycodone Screen NEGATIVE, Urine Methadone Screen NEGATIVE, Urine Fentanyl Screen NEGATIVE, Ur Barbiturates Screen PRESUMPTIVE POSITIVE, Ur Phencyclidine Scrn NEGATIVE, Ur Amphetamines Screen PRESUMPTIVE POSITIVE, U Benzodiazepines Scrn NEGATIVE, Urine Cocaine Screen NEGATIVE, U Cannabinoids Screen PRESUMPTIVE POSITIVE Charges/Coding Visit Charges Inpatient E&M: 34285 [facility] Hosp L2 04/17/25 1525 Cosigner Signature (if applicable): CC: ~ Signed [facility]07-17-2025 History and physical note Author Jaquan Hong [facility] Note Date/Time April 17, 2025 6:18 am [facility] Medical Records Department [address] [place] [address] H&P Exam - Hospitalist 04/16/25 2241 MR#: [id number] Acct: [id number] Name: MICHAEL MCNEILL SANTOS Rep #:[id number] : 1975 49 From: Jaquan Ibrahim DO PCP: Care Physician,No Primary Status :ADM IN [place] [facility] [place] HPI - General General Date of Admission: 04/16/25 Date of Service: 04/16/25 Chief Complaint: Requesting EtOH Detox. HPI Narrative MICHAEL MCNEILL, is a 49 M with a past medical history of bipolar disorder, smokeless tobacco abuse, history of bilateral inguinal hernia, history of CVA, history of Left ankle fracture; s/p repair, chronic EtOH abuse; patient admitting to drinking ~3-4 tall boy beers daily in addition to whiskey, history of EtOH detox ~18 months ago, methamphetamine abuse, cannabis abuse and history of asthma/COPD with bulla of lung; with recent exacerbation causing visit to theER here on March 30, 2025 who presents to [facility] ER requesting EtOH detox. Mr. Mcneill reports his symptoms began a few hours prior to admission after his last drink. He states his symptoms are similar to his previous EtOH withdrawal. He denies other recent illicit drug use. He denies associated fever, chills, nausea, vomiting, diarrhea, constipation, abdominal pain, chest pain, palpitations, heart racing, lower extremity edema, dysuria, hematuria, headache, seizures, hallucinations or rash. In the ER he was noted to have a CRISTINE of <10 mg/dL with early symptoms of EtOH withdrawal in the settingof chronic EtOH abuse and he was then admitted to the general medical floor for ongoing care for state that is expected to extend beyond 2 midnights. [facility] Medical History (Updated 04/16/25 @ 23:[address] Jaquan Villarreal DO) ETOH abuse Methamphetamine abuse Asthma Depression Anxiety [...] marijuana, amphetamines, opiates and methamphetamine ROS ROS Narrative Review of Systems: Constitutional: Patient denies fever or chills. Eyes: Patient denies changes in vision, hallucinations or discharge from eyes. ENT: Patient denies runny nose, sore throat or ear pain. Resp: Patient denies shortness of breath, wheezing or cough. CV: Patient denies chest pain, palpitations, heart racing or lower extremity edema. GI: Patient denies abdominal pain, nausea, vomiting, diarrhea or constipation. : Patient denies dysuria or hematuria. MSK: Patient denies arthralgias or myalgias. Skin: Patient denies rash, abscess, wounds or jaundice. Psych: Patient admits to depression and anxiety but he denies SI or HI. Neuro: Patient denies headache, paresthesias, tremors or focal neurologic deficits. Allergy: Patient denies lip swelling, tongue swelling or urticaria. Hematology: Patient denies easy bleeding or easy bruisability. Endocrinology: Patient denies polyuria, polydipsia, polyphagia or heat/cold intolerance. 14 point ROS otherwise negative except for positives noted above in HPI. Vital Signs Vital Signs Vital Signs: 04/16/25 21:32 Temperature 98 F Temperature Source Oral Pulse Rate 104 H Respiratory Rate 18 Blood Pressure 138/98 H Blood Pressure Mean 111 Pulse Ox 98 Weight Weight: 123 lb 3.2 oz Body Mass Index (BMI) 19.8 Physical Exam Const alert, oriented x3, no apparent distress and average body habitus General Appearance: cooperative HEENT normocephalic, head/scalp atraumatic, hearing grossly normal bilaterally and moist oral mucous membranes Eyes PERRL, EOMs intact bilaterally and conjunctivae normal Neck no lymphadenopathy, supple and no JVD Resp normal respiratory effort, no retractions, no use of accessory muscles and clearto auscultation bilaterally Cardio regular rate and regular rhythm GI normal to inspection, nondistended, normoactive bowel sounds, soft to palpation,non-tender and non-distended Extremity normal to inspection, full ROM and no clubbing, cyanosis or edema Skin Skin Narrative: Patient has no evidence of rash, abscess, wounds or jaundice. Neuro oriented x3, CN's II-XII intact bilaterally, moves all extremities and no focal motor deficits Sensorium / Orientation: awake, alert, oriented to person, oriented to place andoriented to time Speech: speech normal Psych affect normal Results Medical Records Data Attestation: I reviewed the patient's medical records Lab / Micro Data Attestation: I reviewed the patient's lab results. 04/16/25 21:55 04/16/25 21:55 Labs: Laboratory Results - last 24 hr 04/16/25 21:55: WBC 7.9, RBC 4.43 L, Hgb 13.6, Hct 40.0, MCV 90.3, MCH 30.7, MCHC 34.0, RDW Std Deviation 41.8, RDW Coeff of Bridger 12.6, Plt Count 290, MPV 9.0, Immature Gran % (Auto) 0.300, Neut % (Auto) 71.0 H, Lymph % (Auto) 18.5 L, Wilkes % (Auto) 6.1, Eos % (Auto) 3.3, Baso % (Auto) 0.8, Absolute Neuts (auto) 5.6, Absolute Lymphs (auto) 1.46, Nucleated RBC % 0 Assessment & Plan Assessment/Plan (1) Alcohol withdrawal: QUALIFIERS: Complication of substance-induced condition: uncomplicated Qualified Code(s): F10.930 - Alcohol use, unspecified with withdrawal, uncomplicated (2) ETOH abuse: (3) Tobacco abuse: (4) Methamphetamine use: (5) Marijuana use: PLAN: Plan 1. Early symptoms of EtOH withdrawal in the setting of chronic EtOH abuse - Admit to general medical floor for treatment under the EtOH detoxification protocol primarily consisting of phenobarbital taper. EtOH cessation will be strongly encouraged. Give ondansetron as needed for nausea and vomiting. Give ibuprofen as needed for pain or fever. 2. Smokeless Tobacco Abuse complicating #1 - Tobacco cessation will be stronglyencouraged with nicotine patch offered to control cravings. 3. History of methamphetamine abuse - UDS pending at this time. Nevertheless, methamphetamine cessation will be strongly encouraged. 4. History of cannabis abuse - Cannabis cessation will be strongly encouraged. 5. History of asthma/COPD with bulla of lung; with recent exacerbation causing visit to the ER here on March 30, 2025 - Noted with no evidence of acute flare atthis time. Continue as needed nebulizers. 6. Bipolar disorder; not currently on treatment - Noted. 7. History of bilateral inguinal hernia - Noted with no active complaints related to this issue at this time. 8. History of CVA - Noted. 9. History of Left ankle fracture; s/p repair - Stable. 10. DVT prophylaxis - Enoxaparin 40 mg sq daily. Total time: Approximately (but not less than) 55 minutes. Charges/Coding Visit Charges Inpatient E&M: 59283 Init Hosp L2 04/17/25 0618 <Electronically signed by Jaquan Villarreal DO> Cosigner Signature (if applicable): CC: Dr. Jaquan Villarreal, ; No Primary Care Physician~ Signed [facility] Work Phone: 1(486) 362-944207-17-2025 History and physical note [facility] Medical Records Department [address] [place] [address] H&P Exam - Hospitalist 04/16/25 2241 MR#: [id number] Acct: [id number] Name: MICHAEL MCNEILL SANTOS Rep #:[id number] : 1975 49 From: Jaquan Ibrahim DO PCP: Care Physician,No Primary Status :ADM IN Location: [place] [address]-1 HPI - General General Date of Admission: 04/16/25 Date of Service: 04/16/25 Chief Complaint: Requesting EtOH Detox. HPI Narrative MICHAEL MCNEILL, is a 49 M with a past medical history of bipolar disorder, smokeless tobacco abuse, history of bilateral inguinal hernia, history of CVA, history of Left ankle fracture; s/p repair, chronic EtOH abuse; patient admitting to drinking ~3-4 tall boy beers daily in addition to whiskey, history of EtOH detox ~18 months ago, methamphetamine abuse, cannabis abuse and history of asthma/COPD with bulla of lung; with recent exacerbation causing visit to theER here on March 30, 2025 who presents to [facility] ER requesting EtOH detox. Mr. Mcneill reports his symptoms began a fewhours prior to admission after his last drink. He states his symptoms are similar to his previous EtOH withdrawal. He denies other recent illicit drug use. He denies associated fever, chills, nausea,vomiting, diarrhea, constipation, abdominal pain, chest pain, palpitations, heart racing, lower extremity edema, dysuria, hematuria, headache, seizures, hallucinations or rash. In the ER he was notedto have a CRISTINE of <10 mg/dL with early symptoms of EtOH withdrawal in the settingof chronic EtOH abuse and he was then admitted to the general medical floor for ongoing care for state that is expected to extend beyond 2 midnights. [facility] Medical History (Updated 04/16/25 @ 23:[address] Jaquan Villarreal, DO) ETOH abuse Methamphetamine abuse Asthma Depression Anxiety [...] marijuana, amphetamines, opiates and methamphetamine ROS ROS Narrative Review of Systems: Constitutional: Patient denies fever or chills. Eyes: Patient denies changes in vision, hallucinations or discharge from eyes. ENT: Patient denies runny nose, sore throat or ear pain. Resp: Patient denies shortness of breath, wheezing or cough. CV: Patient denies chest pain, palpitations, heart racing or lower extremity edema. GI: Patient denies abdominal pain, nausea, vomiting, diarrhea or constipation. : Patient denies dysuria or hematuria. MSK: Patient denies arthralgias or myalgias. Skin: Patient denies rash, abscess, wounds or jaundice. Psych: Patient admits to depression and anxiety but he denies SI or HI. Neuro: Patient denies headache, paresthesias, tremors or focal neurologic deficits. Allergy: Patient denies lip swelling, tongue swelling or urticaria. Hematology: Patient denies easy bleeding or easy bruisability. Endocrinology: Patient denies polyuria, polydipsia, polyphagia or heat/cold intolerance. 14 point ROS otherwise negative except for positives noted above in HPI. Vital Signs Vital Signs Vital Signs: 04/16/25 21:32 Temperature 98 F Temperature Source Oral Pulse Rate 104 H Respiratory Rate 18 Blood Pressure 138/98 H Blood Pressure Mean 111 Pulse Ox 98 Weight Weight: 123 lb 3.2 oz Body Mass Index (BMI) 19.8 Physical Exam Const alert, oriented x3, no apparent distress and average body habitus General Appearance: cooperative HEENT normocephalic, head/scalp atraumatic, hearing grossly normal bilaterally and moist oral mucous membranes Eyes PERRL, EOMs intact bilaterally and conjunctivae normal Neck no lymphadenopathy, supple and no JVD Resp normal respiratory effort, no retractions, no use of accessory muscles and clearto auscultation bilaterally Cardio regular rate and regular rhythm GI normal to inspection, nondistended, normoactive bowel sounds, soft to palpation,non-tender and non-distended Extremity normal to inspection, full ROM and no clubbing, cyanosis or edema Skin Skin Narrative: Patient has no evidence of rash, abscess, wounds or jaundice. Neuro oriented x3, CN's II-XII intact bilaterally, moves all extremities and no focal motor deficits Sensorium / Orientation: awake, alert, oriented to person, oriented to place andoriented to time Speech: speech normal Psych affect normal Results Medical Records Data Attestation: I reviewed the patient's medical records Lab / Micro Data Attestation: I reviewed the patient's lab results. 04/16/25 21:55 04/16/25 21:55 Labs: Laboratory Results - last 24 hr 04/16/25 21:55: WBC 7.9, RBC 4.43 L, Hgb 13.6, Hct 40.0, MCV 90.3, MCH 30.7, MCHC 34.0, RDW Std Deviation 41.8, RDW Coeff of Bridger 12.6, Plt Count 290, MPV 9.0, Immature Gran % (Auto) 0.300, Neut % (Auto) 71.0 H, Lymph % (Auto) 18.5 L, Wilkes % (Auto) 6.1, Eos % (Auto) 3.3, Baso % (Auto) 0.8, Absolute Neuts (auto) 5.6, Absolute Lymphs (auto) 1.46, Nucleated RBC % 0 Assessment & Plan Assessment/Plan (1) Alcohol withdrawal: QUALIFIERS: Complication of substance-induced condition: uncomplicated Qualified Code(s): F10.930 -Alcohol use, unspecified with withdrawal, uncomplicated (2) ETOH abuse: (3) Tobacco abuse: (4) Methamphetamine use: (5) Marijuana use: PLAN: Plan 1. Early symptoms of EtOH withdrawal in the setting of chronic EtOH abuse - Admit to general medical floor for treatment under the EtOH detoxification protocol primarily consisting of phenobarbital taper. EtOH cessation will be strongly encouraged. Give ondansetron as needed for nausea and vomiting. Give ibuprofen as needed for pain or fever. 2. Smokeless Tobacco Abuse complicating #1 - Tobacco cessation will be stronglyencouraged with nicotine patch offered to control cravings. 3. History of methamphetamine abuse - UDS pending at this time. Nevertheless, methamphetamine cessation will be strongly encouraged. 4. History of cannabis abuse - Cannabis cessation will be strongly encouraged. 5. History of asthma/COPD with bulla of lung; with recent exacerbation causing visit to the ER hereon March 30, 2025 - Noted with no evidence of acute flare atthis time. Continue as needed nebulizers. 6. Bipolar disorder; not currently on treatment - Noted. 7. History of bilateral inguinal hernia - Noted with no active complaints related to this issue at this time. 8. History of CVA - Noted. 9. History of Left ankle fracture; s/p repair - Stable. 10. DVT prophylaxis - Enoxaparin 40 mg sq daily. Total time: Approximately (but not less than) 55 minutes. Charges/Coding Visit Charges Inpatient E&M: 24461 Init Hosp L2 04/17/25 0618 Cosigner Signature (if applicable): CC: Dr. Jaquan Villarreal, DO; No Primary Care Physician~ Signed [facility]07-17-2025 Evaluation note* Diagnosis Onset Date Resolution Status Admit Date Alcohol withdrawal acute April 012024 11:00pm ETOH abuse acute April 16 11:00pm Marijuana use acute April 16, 2025 11:00pm Methamphetamine use acute April 16, 2025 11:00pm Tobacco abuse acute April 16, 2025 11:00pm [facility] Work Phone: 1(267) 989-214307-17-2025 Discharge summary Author Twan aGrcia [facility] Note Date/Time April 16, 2025 10:4 8pm [facility] Medical Records Department [address] [place] [address] Emergency Department Summary 04/16/25 MR#: [id number] Acct: [id number] Name: MICHAEL MCNEILL SANTOS Rep #:[id number] : 1975 49 From: Twan Garcia MD PCP: Care Physician,No Primary Status :ADM IN Location: [address] History of Present Illness Chief Complaint: [...] Recent Illness/Hospitalization: No PFSH PFSH Medical History ETOH abuse Methamphetamine [...] 71.0 H Lymph % (Auto) 18.5 L Wilkes % (Auto) 6.1 Eos % (Auto) 3.3 [...] Methamphetamine use Disposition Disposition: Acute Care Hospital [facility] What to do if you have Problems For any increased pain, shortness of breath, bleeding, nausea or vomiting, chestpain, or any unexpected problems, contact your Primary Care Provider. Call [facility] ([phone]) or report to the closest Emergency Room. Call 911 if necessary. 04/16/252247 <Electronically signed by Twan Garcia MD> Cosigner Signature (if applicable): CC: No Primary Care Physician ~ Signed [facility] Work Phone: 1(108) 229-498707-16-2025 Discharge summary [facility] Medical Records Department [address] [place] [address] Emergency Department Summary 04/16/25 MR#: [id number] Acct: [id number] Name: MICHAEL MCNEILL SANTOS Rep #:[id number] : 1975 49 From: Twan Garcia MD PCP: Care Physician,No Primary Status :ADM IN [place] [facility] [id number] HPI History of Present Illness Chief Complaint: [...] has been using whiskey also. Occasionally marijuana. Deniesany IV drug abuse. Last detox was about a year and a half ago. No recent admissions for anything else. Denies recent illness. Prior similar symptoms: Yes Recent Illness/Hospitalization: No [facility] Medical History ETOH abuse Methamphetamine abuse Asthma [...] stable afebrile. No acute distress. No family present.H EENT exam pupils round reactive light. Moist [...] 71.0 H Lymph % (Auto) 18.5 L Wilkes % (Auto) 6.1 Eos % (Auto) 3.3 [...] Methamphetamine use Disposition Disposition: Acute Care Hospital [facility] What to do if you have Problems For any increased pain, shortness of breath, bleeding, nausea or vomiting, chestpain, or any unexpected problems, contact your Primary Care Provider. Call [facility] ([phone]) or report tothe closest Emergency Room. Call 911 if necessary. 04/16/25 0266 Cosigner Signature (if applicable): CC: No Primary Care Physician ~ Signed [facility]07-16-2025 Evaluation note* Diagnosis Onset Date Resolution Status Admit Date Alcohol withdrawal acute April 012024 10:27pm ETOH abuse acute April 16 10:27pm Marijuana use acute April 16, 2025 10:27pm Methamphetamine use acute April 16, 2025 10:27pm Tobacco abuse acute April 16, 2025 10:27pm [facility] Work Phone: 1([phone]) 740-239806-28-2025 Discharge summary [facility] Medical Records Department [address] [place] [address] Emergency Department Summary 03/29/25 MR#: [id number] Acct: [id number] Name: MICHAEL MCNEILL SANTOS Rep #:[id number] : 1975 49 From: Sebastian Braswell DO [...] % (Auto) 59.0 Lymph % (Auto) 28.8 Wilkes % (Auto) 7.3 Eos % (Auto) 3.8 [...] IMPRESSION: COPD. NO ACUTE FINDINGS. Reading Location: [facility] Discharge Plan Triage Chief Complaint: Weakness ED Provider: Sebastian Braswell Dx/Rx/DC Orders Clinical Impression: Chest pain Prescriptions: No Action NK Primary Care Provider: Care Physician,No Primary Referrals: Care Physician,No Primary [Primary Care Provider] - Yolanda Garcia, QUILTING MACHINE OPERATOR-C [[facility]] - Activity Restrictions/Additional Instructions: Follow-up with your doctor in outpatient. Return with worsening symptoms or anyconcerns. Print Language: [place] Disposition Disposition: Home, Self Care What to do if you have Problems For any increased pain, shortness of breath, bleeding, nausea or vomiting, chestpain, or any unexpected problems, contact your Primary Care Provider. Call [facility] ([phone]) or report tothe closest Emergency Room. Call 911 if necessary. 03/29/252238 Cosigner Signature (if applicable): CC: No Primary Care Physician ~ Signed [facility]06-28-2025 Radiology Diagnostic study note [facility] Imaging Services [address] [place], [place] [address] Chest PA and Lateral MR#: [id number] Acct: [id number] Name: MICHAEL MCNEILL SANTOS Rep #: [id number] : 1975 M 49 From: Shelli John MD PCP: Care Physician,No Primary Status: REG ER Study:Chest PA and Lateral Date of Exam: 03/29/25 Exam# [id number] Ordering Dr: Yonny Braswell DO PROCEDURE: CHEST [...] IMPRESSION: COPD. NO ACUTE FINDINGS. Reading Location: [id number] CC: Dr. Sebastian Braswell DO; No Primary Care Physician ~ Agricultural Education Instructor: Signed [facility]06-28-2025 Discharge summary Author Sebastian Braswell [facility] Note Date/Time March 29, 2025 10:3 9pm [facility] Medical Records Department [address] [place] [address] Emergency Department Summary 03/29/25 MR#: [id number] Acct: [id number] Name: MICHAEL MCNEILL SANTOS Rep #:[id number] : 1975 49 From: Sebastian Braswell DO [...] % (Auto) 59.0 Lymph % (Auto) 28.8 Wilkes % (Auto) 7.3 Eos % (Auto) 3.8 [...] IMPRESSION: COPD. NO ACUTE FINDINGS. Reading Location: [facility] Discharge Plan Triage Chief Complaint: Weakness ED Provider: Sebastian Braswell Dx/Rx/DC Orders Clinical Impression: Chest pain Prescriptions: No Action NK Primary Care Provider: Care Physician,No Primary Referrals: Care Physician,No Primary [Primary Care Provider] - Yolanda Garcia [facility], QUILTING MACHINE OPERATOR-C [[facility]] - Activity Restrictions/Additional Instructions: Follow-up with your doctor in outpatient. Return with worsening symptoms or anyconcerns. Print Language: [place] Disposition Disposition: Home, Self Care What to do if you have Problems For any increased pain, shortness of breath, bleeding, nausea or vomiting, chestpain, or any unexpected problems, contact your Primary Care Provider. Call [facility] ([phone]) or report to the closest Emergency Room. Call 911 if necessary. 03/29/252238 <Electronically signed by Sebastian Braswell DO> Cosigner Signature (if applicable): CC: No Primary Care Physician ~ Signed [facility] Work Phone: 1(244) 795-111904-20-2025 Radiology Diagnostic study note [facility] Imaging Services [address] [place], [place] [address] Chest PA and Lateral MR#: [id number] Acct: [id number] Name: MICHAEL MCNEILL Rep #: [id number] : 1975 M 49 From: Shelli John MD PCP: Care Physician,No Primary Status: REG ER Study:Chest PA and Lateral Date of Exam: 01/19/25 Exam# [id number] Ordering Dr: Yee Castillo PROCEDURE: CHEST PA [...] CHANGE SINCE THE PRIOR EXAM. Reading Location: [id number] CC: MALIA Moctezuma; No Primary Care Physician ~ Agricultural Education Instructor: Signed [facility]04-20-2025 Hospital Discharge instructions Additional Instructions Follow-up with the [facility] across the street since you do not have a PCP. Their phone number is [phone].[facility] Work Phone: 1(843) 778-756803-14-2025 Discharge summary [facility] Medical Records Department [address] [place] [address] Emergency Department Summary 12/13/24 MR#: [id number] Acct: [id number] Name: MICHAEL MCNEILLN Rep #:[id number] : 1975 49 From: Homar Nieves MD [...] 2 weeks of cough if not longer. [facility] Medical History ETOH abuse Methamphetamine abuse Asthma [...] with CT recommended. Reading Location: [place] [address] Discharge Plan Triage Chief Complaint: Cough ED [...] breathing, new or worsening symptoms. Print Language: [place] Disposition Disposition: Home, Self Care What to do if you have Problems For any increased pain, shortness of breath, bleeding, nausea or vomiting, chestpain, or any unexpected problems, contact your Primary Care Provider. Call [facility] ([phone]) or report tothe closest Emergency Room. Call 911 if necessary. 12/13/24 1346 Cosigner Signature (if applicable): CC: No Primary Care Physician ~ Signed [facility]03-14-2025 Radiology Diagnostic study note [facility] Imaging Services [address] [place] [address] Chest PA and Lateral MR#: [id number] Acct: [id number] Name: MICHAEL MCNEILL SANTOS Rep #: [id number] : 1975 M 49 From: Benjamin Alvarez MD PCP: Care Physician,No Primary Status: REG ER Study:Chest PA and Lateral Date of Exam: 12/13/24 Exam# [id number] Ordering Dr: Homar Nieves MD PROCEDURE: CHEST [...] with CT recommended. Reading Location: [place] [address] CC: Dr. Homar Nieves MD; No Primary Care Physician ~ Agricultural Education Instructor: Signed [facility]02-11-2025 [facility]01-21-2025 [facility]01-20-2025 Evaluation note* Diagnosis Onset Date Resolution Status Admit Date Acute asthma exacerbation resolved October 21, 2024 7:37pm Methamphetamine abuse resolved Oct 7:37pm Acute respiratory failure wi th hypoxia and hypercapnia acute November 11, 2024 5:09pm Asthma exacerbation acute Febru mainor 2024 5:09pm Hyperglycemia acute November 112024 5:09pm Leukocytosis acute November 5:09pm Respiratory acidosis acute 2024 5:09pm [facility] Work Phone: 1(514) 426-216401-20-2025 [facility]01-30-2024 Progress note Author Graham Tolbert [facility] October 31, 2023 10:15am Note Date/Time October 31, 2023 7 :34am [facility] Medical Records Department [address] [place] [address] Progress Note - Hospitalist 10/31/23 0731 MR#: [id number] Acct: [id number] Name: MICHAEL MCNEILL SANTOS Rep #:[id number] : 1975 47 From: Graham Tolbert DO PCP: Care Physician,No Primary Status :ADM IN Location: [place] ZI137-5 Reason for Visit Reason for Visit: Diagnoses [...] Cosigner Signature (if applicable): CC: ~ Signed [facility] Work Phone: 1(815) 422-190501-29-2024 Progress note Author Graham Tolbert [facility] October 30, 2023 11:01am Note Date/Time October 30, 2023 8 :26am [facility] Medical Records Department [address] [place] [address] Progress Note - Hospitalist 10/30/23 0823 MR#: [id number] Acct: [id number] Name: MARKELLMICHAEL SANTOS Rep #:[id number] : 1975 47 From: Graham Tolbert DO PCP: Care Physician,No Primary Status :ADM IN Location: [place] [address] Reason for Visit Reason for Visit: Diagnoses [...] is evaluated. Charges/Coding Visit Charges Inpatient E&M: 23540 Subs Hosp L2 10/30/23 1101 <Electronically signed by Graham Tolbert DO> Cosigner Signature (if applicable): CC: ~ Signed [facility] Work Phone: 1(144) 368-629201-28-2024 Progress note Author Amparo Nguyen [facility] October 29, 2023 1:57pm Note Date/Time October 29, 2023 9 :51am [facility] Medical Records Department [address] [place] [address] Progress Note 10/29/23 0949 MR#: [id number] Acct: [id number] Name: MICHAEL MCNEILL SANTOS Rep #:[id number] : 1975 47 From: Amparo Nguyen MD PCP: Care Physician,No Primary Status :ADM IN Location: [place] [address]-1 Subjective Subjective Patient seen and examined. He [...] 78.9 H, Lymph % (Auto) 14.6 L, Wilkes % (Auto) 4.0, Eos % (Auto) 1.6, [...] prophylaxis; SCDs Charges/Coding Visit Charges Inpatient E&M: 76145 Subs Hosp L2 10/29/23 4850 <Electronically signed by Amparo Nguyen MD> Amparo Nguyen MD Cosigner Signature (if applicable): CC: ~ Signed [facility] Work Phone: 1(722) 731-205401-28-2024 Discharge summary Author Tae Walsh [facility] October 29, 2023 5:44am Note Date/Time October 29, 2023 4 :37am [facility] Medical Records Department [address] [place] [address] Emergency Department Summary 10/29/23 MR#: [id number] Acct: [id number] Name: MICHAEL MCNEILL SANTOS Rep #:[id number] : 1975 47 From: Tae Walsh MD PCP: Care Physician,No Primary Status :ADM IN [place]: [facility] GV446-8 HPI History of Present Illness Chief Complaint: [...] Extremity: Negative for edema Neuro oriented x3 [place] Coma Scale: document GCS findings Spontaneous Obeys [...] those results. Plan is to admit to [facility] Dr. Mcintyre who is on this evening [...] Physician,No Primary Disposition Disposition: Acute Care Hospital [facility] What to do if you have Problems For any increased pain, shortness of breath, bleeding, nausea or vomiting, chestpain, or any unexpected problems, contact your Primary Care Provider. Call [facility] ([phone]) or report to the closest Emergency Room. Call 911 if necessary. 10/29/23 0544 <Electronically signed by Tae Walsh MD> Cosigner Signature (if applicable): CC: No Primary Care Physician ~ Signed [facility] Work Phone: 1(470) 987-581401-28-2024 History and physical note Author Alisha Mcintyre [facility] October 29, 2023 4:59am Note Date/Time October 29, 2023 4 :41am [facility] Medical Records Department [address] [place], [place] [address] [place] [address] H&P Exam - Hospitalist 10/29/23 0437 MR#: [id number] Acct: [id number] Name: MICHAEL MCNEILL SANTOS Rep #:[id number] : 1975 47 From: Alisha Mcintyre MD [...] GERD, HTN, HLD who presents to the [facility] ED on 04/26/23 with acute EtOH [...] alcohol level, urine drug screen upon evaluation. [facility] Medical History (Updated 10/29/23 @ 04:39 by [...] GERD, HTN, HLD who presents to the [facility] ED on 04/26/23 with acute EtOH [...] of admission. Charges/Coding Visit Charges Inpatient E&M: 31645 Init Hosp L2 10/29/23 7046 <Electronically signed by Alisha Mcintyre MD> Cosigner Signature (if applicable): CC: Dr. Alisha Mcintyre MD; No Primary Care Physician~ Signed [facility] Work Phone: 1(643) 189-446512-19-2023 Telephone encounter Note* Telephone Encounter - Vida Perez - 09/19/2023 4:15 PM EST Office and [facility] unable to reach patient to go over surgery information and schedule PAT prior to surgery as patients number and emergency contacts number has been disconnected Surgery message sent to [place] to cancel surgery as of now Vida Perez Raise Drill Operator [facility]12-19-2023 Miscellaneous Notes* Telephone Encounter - Vida Perez - 09/19/2023 4:15 PM EST Office and [facility] unable to reach patient to go over surgery information and schedule PAT prior to surgery as patients number and emergency contacts number has been disconnected Surgery message sent to [place] to cancel surgery as of now Vdia Perez Raise Drill Operator * Telephone Encounter - Vida Perez - [...] earlier this month. Vida Perez Please advise Raise Drill Operator * Telephone Encounter - Vida Perez - 08/28/2023 11:16 AM EST 09/05/2023 COLON MTZ + [facility] Telephone encounter Note * Telephone Encounter - Vida Perez - 09/13/2023 9:05 AM EST Received call from [facility] in regards to patient not being able to be contacted. Number listed for patient rings twice then shows busy. Emergency contact listed is inactive. Will keep trying. Patient scheduled for hernia surgery with Dr. Jose in [place] on 10/03/2023. Colonoscopy was cancelled earlier this month. Vida Perez Please advise Raise Drill Operator [facility]2023 Telephone encounter Note* Telephone Encounter - Vida Perez - 08/28/2023 11:16 AM EST 09/05/2023 COLON MTZ + 10/03/2023 RIH MTZ [facility]2023 NoteHNO ID: [id number] Author: Linda Jose MD Service: ? Author [...] recently He has just got out of [facility] for drug possession in the past two [...] entered by the nurse and reviewed by ks Nursing Notes: Katherine Biggs RN 08/28/2023 10:43 [...] and no icterus noted. (more content not included)...[facility]2023 History of Present illness Narrative* Linda Jose MD - 08/28/2023 11:03 AM EST HISTORY AND PHYSICAL Michael Mcneill 1975 REFERRING PHYSICIAN: No ref. provider found CHIEF COMPLAINT: Consult (Right side groin pain) HPI: The patient is a 47 year old male presents with right inguinal hernia noted for 5 years. She notes increasing symptoms recently He has just got out of [facility] possession in the past two [...] will be scheduled for the procedure at [facility] I have offered right inguinal hernia [...] studies/radiological imaging/medical records from other medical facilities, [id number] patient care, obtaining oral medical history from the patient in thismetropolitan hospital centerounter, performing a medically appropriate examination, counseling and educating the patient/family/caregiver, and ordering and/or scheduling of medications/tests/procedures, and completing appropriate medical documentation. Linda Jose MD [facility]20[facility] Instructions* Patient Instructions* Linda Jose MD [...] If you do not have a responsible carrier driver (family member or friend) with you [...] your exam. 2 09/2019 [facility]2023 Nurse Note* Katherine Biggs RN - [...] NONE Katherine Biggs RN documented in [facility]11-25-2023 NoteHNO ID: [id number] Author: Henri Hurley APRN.TITO Service: ? Author Type: Nurse Practitioner Type: [...] - CONSULT TO GENERAL SURGERY Henri Hurley APRN.CNPM[facility]07-28-2023 Discharge summary Author Jaquan Mabry [facility] April 28, 2023 9:43am Note Date/Time April 28, 2023 9:35 am [facility] Medical Records Department [address] [place] [address] Discharge Summary 04/28/23 0935 MR#: [id number] Acct: [id number] Name: MICHAEL MCNEILL SANTOS Rep #:[id number] : 1975 47 From: Jaquan Mabry MD PCP: Care Physician,No Primary Status :ADM IN [facility] Prov[facility] Date of Admission: 04/26/23 Date of [...] Self Care Charges/Coding Visit Charges Inpatient E&M: 56817 Disch Hosp >30min 04/28/23 0943 <Electronically signed by Jaquan Mabry MD> Cosigner Signature (if applicable): CC: Dr. Jaquan Mabry MD; No Primary Care Physician~ Signed [facility] Work Phone: 1(876) 490-857807-28-2023 Progress note Author Jaquan Mabry [facility] April 28, 2023 9:07am Note Date/Time April 28, 2023 7:17 am [facility] Medical Records Department [address] [place] [address] Progress Note - Hospitalist 04/28/23716 MR#: [id number] Acct: [id number] Name: MARKELLMICHAEL SANTOS Rep #:[id number] : 1975 47 From: Jaquan Mabry MD PCP: Care Physician,No Primary Status :ADM IN Location: [place] [address] Reason for Visit Reason for Visit: Diagnoses [...] 35 Minutes Charges/Coding Visit Charges Inpatient E&M: 10780 Subs Hosp L2 04/28/23 0907 <Electronically signed by Jaquan Mabry MD> Cosigner Signature (if applicable): CC: ~ Signed [facility] Work Phone: 1(953) 521-140907-28-2023 Progress note Author Jaquan Mabry [facility] April 28, 2023 9:07am Note Date/Time April 28, 2023 7:17 am [facility] Medical Records Department [address] [place] [address] Progress Note - Hospitalist 04/28/2317 MR#: [id number] Acct: [id number] Name: MICHAEL MCNEILL SANTOS Rep #:[id number] : 1975 47 From: Jaquan Mabry MD PCP: Care Physician,No Primary Status :ADM IN Location: [place] [address] Reason for Visit Reason for Visit: Diagnoses [...] 35 Minutes Charges/Coding Visit Charges Inpatient E&M: 45549 Subs Hosp L2 04/28/23 0907 <Electronically signed by Jaquan Mabry MD> Cosigner Signature (if applicable): CC: ~ Signed [facility] Work Phone: 1(145) 565-636607-27-2023 Progress note Author Jaquan Tamayosalazar [facility] April 27, 2023 8:14am Note Date/Time April 27, 2023 7:02 am [facility] Medical Records Department [address] [place] [address] Progress Note - Hospitalist 04/27/23 0659 MR#: [id number] Acct: [id number] Name: MICHAEL MCNEILL SANTOS Rep #:[id number] : 1975 47 From: Jaquan Mabry MD PCP: Care Physician,No Primary Status :ADM IN Location: [address] Reason for Visit Reason for Visit: [...] % (Auto) 56.3, Lymph % (Auto) 22.0, Wilkes % (Auto) 6.0, Eos % (Auto) 14.7 [...] 35 Minutes Charges/Coding Visit Charges Inpatient E&M: 89816 Subs Hosp L2 04/27/23 0814 <Electronically signed by Jaquan Mabry MD> Cosigner Signature (if applicable): CC: ~ Signed [facility] Work Phone: 1(330) 909-399107-27-2023 History and physical note Author Alisha Mcintyre [facility] April 26, 2023 11:38pm Note Date/Time April 26, 2023 7:07 pm [facility] Medical Records Department [facility] [place] [address] [address] [address] H&P Exam - Hospitalist 04/26/23 1904 MR#: [id number] Acct: [id number] Name: MICHAEL MCNEILL SANTOS Rep #:[id number] : 1975 47 From: Alisha Mcintyre MD PCP: Care Physician,No Primary Status :ADM IN Location: [facility] QA354-5 HPI - General General Date of Admission: 04/26/23 Date of Service: 04/26/23 Chief Complaint: Acute EtOH withdrawal HPI Narrative The patient is a 47 y/o M w/ PMHx: Hx CVA, Hx Chew tobacco use, Polysubstance abuse (cannabis, opiates, methampetamine), EtOH abuse, COPD/Asthma w/ known bulla, GERD, HTN, HLD who presents to the [facility] ED on 04/26/23 with acute EtOH [...] UDS pending upon requested evaluation of patient. [facility] Medical History (Updated 04/26/23 @ 19:21 by [...] % (Auto) 56.3, Lymph % (Auto) 22.0, Wilkes % (Auto) 6.0, Eos % (Auto) 14.7 [...] GERD, HTN, HLD who presents to the [facility] ED on 04/26/23 with acute EtOH [...] encourage ambulation. Charges/Coding Visit Charges Inpatient E&M: 01015 Init Hosp L2 04/26/231922 <Electronically signed by [...] C otherwise syphilis nonreactive, HIV nonreactive. 04/26/23 5039<Electronically signed by Alisha Mcintyre MD> Cosigner Signature (if applicable): cc: Dr. Alisha Mcintyre MD; No Primary Care Physician ~* Signed [facility] Work Phone: 1(525) 185-340407-27-2023 Discharge summary Author Graham Messina [facility] April 26, 2023 11:18pm Note Date/Time April 26, 2023 7:02 pm [facility] Medical Records Department [address] [place] [address] Emergency Department Summary 04/26/23 MR#: [id number] Acct: [id number] Name: MICHAEL MCNEILL SANTOS Rep #:[id number] : 1975 47 From: Graham Anderson PCP: Care Physician,No Primary Status :ADM IN Location: [place] [address] HPI History of Present Illness Chief Complaint: [...] Patient denies any suicidal or homicidal ideations. [facility] Medical History Active substance abuse Alcohol abuse [...] % (Auto) 56.3 Lymph % (Auto) 22.0 Wilkes % (Auto) 6.0 Eos % (Auto) 14.7 [...] Alcohol withdrawal Disposition Disposition: Acute Care Hospital [facility] What to do if you have Problems For any increased pain, shortness of breath, bleeding, nausea or vomiting, chestpain, or any unexpected problems, contact your Primary Care Provider. Call [facility] ([phone]) or report to the closest Emergency Room. Call 911 if necessary. 04/26/235 <Electronically signed by Graham Messina DO> Cosigner Signature (if applicable): CC: No Primary Care Physician ~ Signed [facility] Work Phone: 1(796) 924-102403-25-2023 History and physical note Author Dr. Mcintyre [facility] December 23, 2022 10:52pm Note Date/Time December 23, 2022 10: 33pm [facility] Medical Records Department [address] [place] [address] History & Physical Exam 12/23/222224 MR#: [id number] Acct: [id number] Name: MICHAEL MCNEILLN Rep #:[id number] : 1975 47 From: Alisha Mcintyre MD PCP: Care Physician,No Primary Status :ADM [facility] HPI - General General Date of Admission: [...] 07/15/22- 07/18/22 who now re-presents to the [facility] ED on 12/23/22 with onset of [...] UDS with positive amphetamine/MDMA, ethyl alcohol 25. [facility] Medical History (Updated 12/23/22 @ 22:48 by [...] (Auto) 69.3, Lymph % (Auto) 17.4 L, Wilkes % (Auto) 5.3, Eos % (Auto) 7.0 [...] 07/15/22- 07/18/22 who now re-presents to the [facility] ED on 12/23/22 with onset of [...] 55 minutes. Charges/Coding Visit Charges Inpatient E&M: 57078 Init Hosp L2 12/23/22 2252 <Electronically signed by Alisha Mcintyre MD> Cosigner Signature (if applicable): CC: Dr. Alisha Mcintyre MD; No Primary Care Physician~ Signed [facility] Work Phone: 1(575) 445-187503-25-[address] De Anda [facility] December 23, 2022 10:30pm Note Date/Time December 23, 2022 10: 30pm [facility] Medical Records Department [address] [place] [address] Emergency Department Summary 12/23/22 MR#: [id number] Acct: [id number] Name: MICHAEL MCNEILL SANTOS Rep #:[id number] : 1975 47 From: Michael De Anda [...] today. He is not actively withdrawing currently. PFS PFS Medical History Active substance abuse Alcohol abuse [...] (Auto) 69.3 Lymph % (Auto) 17.4 L Wilkes % (Auto) 5.3 Eos % (Auto) 7.0 [...] (Auto) Neut % (Auto) Lymph % (Auto) Wilkes % (Auto) Eos % (Auto) Baso % [...] your Primary Care Provider. Call [facility] ([phone]) or report to the closest Emergency Room. Call 911 if necessary. 12/23/222229 <Electronically signed by Michael De Anda DO> Cosigner Signature (if applicable): CC: No Primary Care Physician ~ Signed [facility] Work Phone: 1(706) 659-921103-16-[address] Garcia [facility] December 15, 2022 6:41pm Note Date/Time December 15, 2022 6:3 9pm [facility] Medical Records Department [address] [place] [address] Emergency Department Summary 12/15/22 MR#: [id number] Acct: [id number] Name: MICHAEL MCNEILL SANTOS Rep #:[id number] : 1975 47 From: Twan Garcia MD [...] your Primary Care Provider. Call [facility] ([phone]) or report to the closest Emergency Room. Call 911 if necessary. 12/15/22 184 <Electronically signed by Twan Garcia MD> Cosigner Signature (if applicable): CC: No Primary Care Physician ~ Signed [facility] Work Phone: 1(124) 535-353502-02-[address] Nieves [facility] November 03, 2022 3:22pm Note Date/Time November 03, 2022 1 :31pm [facility] Medical Records Department [address] [place] [address] Emergency Department Summary 11/03/22 MR#: [id number] Acct: [id number] Name: MARKELLMICHAEL APARICIO SANTOS Rep #:[id number] : 1975 46 From: Homar Nieves MD PCP: Care Physician,No Primary Status :REG ER Location: ED HPI HPI - Fall History of Present Illness Chief Complaint: Fall Narrative Narrative: 46-year-old male presents from the [employer] with injury to his face, mainly his upper lip. He states that he blacked out but was unsure for how long. He sustained injury to his mucosal surface of his upper lip. He denies any neck pain. He denies taking any medications and is unsure of his last tetanus immunization. He states that he stood up and just blacked out. [facility] Medical History Active substance abuse Alcohol abuse [...] % (Auto) 60.9 Lymph % (Auto) 20.9 Wilkes % (Auto) 6.5 Eos % (Auto) 10.8 [...] your Primary Care Provider. Call [facility] ([phone]) or report to the closest Emergency Room. Call 911 if necessary. 11/03/22 1522 <Electronically signed by Homar Nieves MD> Cosigner Signature (if applicable): CC: No Primary Care Physician ~ Signed [facility] Work Phone: Consult note Author Charlie Cortes [facility] October 31, 2023 10:29am Note Date/Time October 31, 2023 1 0:29am [facility] Medical Records Department [address] [place] [address] Counseling Note - Pharmacy 10/31/23 1028 MR#: [id number] Acct: [id number] Name: MICHAEL MCNEILL SANTOS Rep #:[id number] : 1975 47 From: Charlie Cortes PCP: Care Physician,No Primary Status :ADM IN Y Location: [place] [address] Pharmacy [place] Med Reconciliation Pharmacy Service has performed discharge [...] signed by Charlie ceja> Date _ Charlie Cortes Cosigner Signature (if applicable): Date CC: ~ Signed [facility] Work Phone: Discharge summary Author Dr. Mckeon [facility] December 24, 2022 11:31am Note Date/Time December 24, 2022 11: 17am [facility] Medical Records Department [address] [place] [address] Discharge Summary 12/24/22 1116 MR#: [id number] Acct: [id number] Name: MICHAEL MCNEILL SANTOS Rep #:[id number] : 1975 47 From: Nelson Mckeon DO PCP: Care Physician,No Primary Status :ADM IN Location: [place] [address] Providers Date of Admission: 12/23/22 Date of [...] was seen in the emergency room at [facility] requesting services for alcohol detox, patient's talk screen was positive for MDMA, amphetamines, and azithromycin alcohol level was 25. Patientwas [facility], according to nursing, patient refused his [...] (Auto) 69.3, Lymph % (Auto) 17.4 L, Wilkes % (Auto) 5.3, Eos % (Auto) 7.0 [...] Mckeon DO; No Primary Care Physician~ Signed [facility] Work Phone: Discharge summary Author Jaquan Mabry [facility] April 28, 2023 9:43am Note Date/Time April 28, 2023 9:35 am [facility] Medical Records Department [address] [place] [address] Discharge Summary 04/28/23 0935 MR#: [id number] Acct: [id number] Name: MICHAEL MCNEILL SANTOS Rep #:[id number] : 1975 47 From: Jaquan Mabry MD PCP: Care Physician,No Primary Status :ADM IN [facility] Prov[facility] Date of Admission: 04/26/23 Date of [...] Self Care Charges/Coding Visit Charges Inpatient E&M: 17945 Disch Hosp >30min 04/28/23 0943 <Electronically signed by Jaquan Mabry MD> Cosigner Signature (if applicable): CC: Dr. Jaquan Mabry MD; No Primary Care Physician~ Signed [facility] Work Phone: Discharge summary Author Tae Walsh [facility] October 29, 2023 5:44am Note Date/Time October 29, 2023 4 :37am [facility] Medical Records Department [address] [place] [address] Emergency Department Summary 10/29/23 MR#: [id number] Acct: [id number] Name: MICHAEL MCNEILL SANTOS Rep #:[id number] : 1975 47 From: Tae Walsh MD PCP: Care Physician,No Primary Status :ADM IN Location: [place] [address]1 HPI History of Present Illness Chief Complaint: [...] Extremity: Negative for edema Neuro oriented x3 [place] Coma Scale: document GCS findings Spontaneous Obeys [...] those results. Plan is to admit to [facility]. Dr. Mcintyre who is on this evening [...] Physician,No Primary Disposition Disposition: Acute Care Hospital [facility] What to do if you have Problems For any increased pain, shortness of breath, bleeding, nausea or vomiting, chestpain, or any unexpected problems, contact your Primary Care Provider. Call [facility] ([phone]) or report to the closest Emergency Room. Call 911 if necessary. 10/29/23 0544 <Electronically signed by Tae Walsh MD> Cosigner Signature (if applicable): CC: No Primary Care Physician ~ Signed [facility] Work Phone: Discharge summary Author Graham Tolbert [facility] October 31, 2023 10:21am Note Date/Time October 31, 2023 1 0:17am [facility] Medical Records Department [address] [place] [address] Discharge Summary 10/31/23 1015 MR#: [id number] Acct: [id number] Name: MICHAEL MCNEILL SANTOS Rep #:[id number] : 1975 47 From: Graham Tolbert DO PCP: Care Physician,No Primary Status :ADM IN Location: [place] [address] Providers Date of Admission: 10/29/23 Primary Care [...] Self Care Charges/Coding Visit Charges Inpatient E&M: 33932 Disch Hosp 10/31/23 1021 <Electronically signed by Graham Tolbert DO> Cosigner Signature (if applicable): CC: Dr. Graham Tolbert DO; No Primary Care Physician~ Signed [facility] Work Phone: Discharge summary Author Homar Nieves [facility] Note Date/Time December 13, 2024 1:4 6pm [facility] Medical Records Department [address] [place] [address] Emergency Department Summary 12/13/24 MR#: [id number] Acct: [id number] Name: MARKELLMICHAEL SANTOS Rep #:[id number] : 1975 49 From: Homar Nieves MD [...] 2 weeks of cough if not longer. [facility] Medical History ETOH abuse Methamphetamine abuse Asthma [...] with CT recommended. Reading Location: [place] [address] Discharge Plan Triage Chief Complaint: Cough ED [...] breathing, new or worsening symptoms. Print Language: [place] Disposition Disposition: Home, Self Care What to do if you have Problems For any increased pain, shortness of breath, bleeding, nausea or vomiting, chestpain, or any unexpected problems, contact your Primary Care Provider. Call [facility] ([phone]) or report to the closest Emergency Room. Call 911 if necessary. 12/13/24 1346 <Electronically signed by Homar Nieves MD> Cosigner Signature (if applicable): CC: No Primary Care Physician ~ Signed [facility] Work Phone: Discharge summary Author Tom Owen [facility] Note Date/Time April 18, 2025 12:4 9pm [facility] Medical Records Department [address] [place] [address] Discharge Summary 04/18/25 1246 MR#: [id number] Acct: [id number] Name: MICHAEL MCNEILL Rep #:[id number] : 1975 49 From: Tom Boland PCP: Care Physician,No Primary Status :ADM IN Location: [place] [address] Providers Date of Admission: 04/16/25 Date of Discharge: 04/18/25 Primary Care Physician: No Primary Care Phys Reason For Visit: ETOH DETOX Diagnosis Discharge Diagnosis (1) Alcohol withdrawal: Status: Acute Code(s): F10.939 - Alcohol use, unspecified with withdrawal, unspecified Qualifiers: Complication of substance-induced condition: uncomplicated Qualified Code(s): F10.930 - Alcohol use, unspecified with withdrawal, uncomplicated (2) ETOH abuse: Status: Acute Code(s): F10.10 - Alcohol abuse, uncomplicated (3) Tobacco abuse: Status: Acute Code(s): Z72.0 - Tobacco use (4) Methamphetamine use: Status: Acute Code(s): F15.10 - Other stimulant abuse, uncomplicated (5) Marijuana use: Status: Acute Code(s): F12.90 - Cannabis use, unspecified, uncomplicated Plan 1. Early symptoms of EtOH withdrawal in the setting of chronic EtOH abuse -the patient is being admitted to [facility] floor. Patient on phenobarbital based order set along with other adjunctive medications gabapentin, Bentyl, Vistaril, clonidine, Klonopin as needed for alcohol withdrawal symptom control. Patient magda thiamine and folate acid. CIWA monitor. accounting systems manager 180 consulted. Discussed with Broderick case management assistant. This is his nd admission. The patient did not want to see 18P as he has refused the service. 04/18: As per nursing staff, he is refusing phenobarbitone. He does not want to see 180 case management assistant as he had refused in the service in the past. Patient is discharged home. 2. Chronic alcoholic hepatitis: AST ALT have been elevated in the past. ALT more than AST. Repeat bili normal. 3. Smokeless Tobacco Abuse and history of methamphetamine abuse and cannabis use disorder tobacco cessation strongly recommended. Nicotine patch offered. History of methamphetamine abuse -U tox was negative. 4. History of asthma/COPD with emphysematous bullae with recent exacerbation causing visit to the ER here on March 30, 2025 -no acute flare at this time. 5. Other comorbidities include bipolar disorder, bilateral groin hernia, right more than left colon right inguinal hernia is more than left. Advised follow-upwith surgery as an outpatient. Not on treatment for bipolar disorder. DVT prophylaxis - Enoxaparin 40 mg sq daily. Full code verified Discharge medication reconciliation done. Discharge follow-up instructions completed. Discharge process discussed with the patient and all questions wereanswered to patient's satisfaction. Follow with PCP in 1 to 2 weeks Total time spent, exact 35 minutes on discharge meds reconciliation, examination, coordination of care with nurses and ancillary staff, review of imaging and blood test and discussion with the patient on follow-up instructions. Laboratory Results 04/16/25 21:55: WBC 7.9, RBC 4.43 L, Hgb 13.6, Hct 40.0, MCV 90.3, MCH 30.7, MCHC 34.0, RDW Std Deviation 41.8, RDW Coeff of Bridger 12.6, Plt Count 290, MPV 9.0, Immature Gran % (Auto) 0.300, Neut % (Auto) 71.0 H, Lymph % (Auto) 18.5 L, Wilkes % (Auto) 6.1, Eos % (Auto) 3.3, Baso % (Auto) 0.8, Absolute Neuts (auto) 5.6, Absolute Lymphs (auto) 1.46, Nucleated RBC % 0, Sodium 140, Potassium 4.3, Chloride 101, Carbon Dioxide 26.4, Anion Gap 12, BUN 22 H, Creatinine 0.97, Estim Creat Clear Calc 72.81, Est GFR (MDRD) Non-Af 96, BUN/Creatinine Ratio 22.4 H, Glucose 104 H, Calcium 10.0, Magnesium 2.0, Total Bilirubin 0.54, AST 44H, ALT 61 H, Alkaline Phosphatase 60, Total Protein 7.9, Albumin 4.5, Globulin 3.3, Albumin/Globulin Ratio 1.4, Ethyl Alcohol < 10.1 04/17/25 05:09: WBC 5.1, RBC 3.68 L, Hgb 11.4 L, Hct 33.0 L, MCV 89.7, MCH 31.0,MCHC 34.5, RDW Std Deviation 41.7, RDW Coeff of Bridger 12.7, Plt Count 241, MPV 9.4, Immature Gran % (Auto) 0.400, Neut % (Auto) 52.3, Lymph % (Auto) 27.5, Wilkes% (Auto) 9.0, Eos % (Auto) 9.8 H, Baso % (Auto) 1.0, Absolute Neuts (auto) 2.7, Absolute Lymphs (auto) 1.40, Nucleated RBC % 0, Sodium 138, Potassium 3.6, Chloride 104, Carbon Dioxide 24.1, Anion Gap 10, BUN 24 H, Creatinine 0.71, Estim Creat Clear Calc 98.44, Est GFR (MDRD) Non-Af 112, BUN/Creatinine Ratio 33.3 H, Glucose 92, Calcium 8.9, Phosphorus 4.5, Total Bilirubin 0.66, AST 35, ALT 44, Alkaline Phosphatase 46, Total Protein 6.1, Albumin 3.6, Globulin 2.4, Albumin/Globulin Ratio 1.5, TSH 0.819 04/17/25 06:50: Urine Color Yellow, Urine Clarity Clear, Urine pH 6.0, Ur Specific [place] 1.025, Urine Protein 30 H, Urine Glucose (UA) Normal, Urine Ketones 5 H, Urine Occult Blood Negative, Urine Nitrite Negative, Urine Bilirubin 1 H, Urine Urobilinogen 1 H, Ur Leukocyte Esterase Negative, Urine RBC0 SEEN, Urine WBC 0 SEEN, Ur Squamous Epith Cells 0 SEEN, Urine Bacteria 0 SEEN,Urine Mucus 1+, Urine Opiates Screen NEGATIVE, U Buprenorphine Qual NEGATIVE, Ur Oxycodone Screen NEGATIVE, Urine Methadone Screen NEGATIVE, Urine Fentanyl Screen NEGATIVE, Ur Barbiturates Screen PRESUMPTIVE POSITIVE, Ur Phencyclidine Scrn NEGATIVE, Ur Amphetamines Screen PRESUMPTIVE POSITIVE, U Benzodiazepines Scrn NEGATIVE, Urine Cocaine Screen NEGATIVE, U Cannabinoids Screen PRESUMPTIVE POSITIVE Medications at Discharge Home Medications NK 04/16/25 Physical Exam Narrative Seen and examined. As per nursing report, patient refusing medication for alcohol withdrawal. He has also refused for outpatient or inpatient rehab as per Broderick Patient states that he has been drinking alcohol about 2-3 tall boys, 2-3 times a week but previously was drinking more 4-5 every other day. Sometimes he also drinks hard liquor. Physical exam General: Alert, Oriented x3, Cooperative HEENT: Atraumatic, PERRLA, EOMI, Normocephalic. Oral: No Gingival or Mucosal Lesions/ Ulcerations Neck: Supple, No JVD, Negative Carotid Bruits Chest wall/Lungs: Air entry diminished in bilateral lung bases. No crepitation/rhonchi Cardiovascular: Regular rate and rhythm, Normal S1,S2, No M/G/R Abdomen: Bowel Sounds Present, Soft, Non Tender, Non-Distended. Liver not enlarged : No dysuria. No renal angle tenderness. No suprapubic tenderness. Extremities: No edema, Capillary Refill Less than 3 Seconds Skin: No rashes, No breakdown Musculoskeletal: No Tenderness to Palpation of Joints or Extremities Neurological: Cranial nerves II-XII grossly intact, DTR 2+/4. No acute focal neurological deficit. Psych/Mental Status: Normal Affect, Appropriate. Weight / BMI Weight Weight: 129 lb 3.054 oz Body Mass Index (BMI) 20.7 ABG / Lab / Microbiology Data 04/17/25 05:09 04/17/25 05:09 Laboratory: Laboratory Results - last 24 hr 04/18/25 07:50: Phosphorus 3.9 D/C Instructions Weight Bearing Status: Weight bearing as tolerated Call your doctor if you observe: Fever of 101 or Higher, Coldness, Increased Pain, Numbness or Tingling, Change in Color, Inability to urinate, Inability to have a bowel movement, Shortness of breath, Dizziness, Fainting spells, Swellingin the ankles, Chest pain, Prolonged hiccupping, Increased palpitations (irregular heartbeat) and Calf discomfort DC O2, CPAP, BIPAP Needs Home O2 Discharge instructions: No When: IN 2 WEEKS Meaningful Use Info Meaningful Use Meaningful Use Diagnoses (Choose all that apply): None applicable Discharge Plan Admission Admit Date/Time: 04/16/25 23:00 Primary Reason for Your Visit: Alcohol withdrawal Attending Provider: Tom Owen Primary Care Provider: Care Physician,No Primary Consulting Providers: Jaquan Villarreal Instructions Additional Instructions / Restrictions: Follow-up with 180 outpatient Discharge Orders/Prescriptions Prescriptions: No Action NK Referrals / Follow Up: Care Physician,No Primary [Primary Care Provider] - Disposition Disposition (needs filled in before D/C Order can be placed): Home, Self Care Charges/Coding Visit Charges Inpatient E&M: 02267 Disch Hosp >30min 04/18/25 1249 <Electronically signed by Tom Owen MD> Cosigner Signature (if applicable): CC: Dr. Tom Owen MD; No Primary Care Physician~ Signed [facility] Work Phone: Evaluation noteNo assessment information available [facility] Work Phone: Evaluation note* Diagnosis Onset Date Resolution Status Desire for detoxification ac [place] Alcoholism chronic [facility] Work Phone: Evaluation note* Diagnosis Onset Date Resolution Status Desire for detoxification ac [place] Alcoholism chronic Alcohol intoxication acute Viral URI with cough acute [facility] Work Phone: Evaluation note* Diagnosis Onset Date Resolution Status Alcoholism chronic Acute alcohol withdrawal res olved Alcohol intoxication acute Viral URI with cough acute Alcohol withdrawal acute Desire for detoxification ac [place] Substance abuse acute Alcoholism chronic [facility] Work Phone: Evaluation note* Diagnosis Onset Date Resolution Status Alcoholism chronic Acute alcohol withdrawal res olved Alcohol intoxication acute Viral URI with cough acute Alcoholism chronic Alcohol withdrawal resolved Alcohol abuse acute [facility] Work Phone: Evaluation note* Diagnosis Onset Date Resolution Status Alcoholism chronic Alcohol withdrawal resolved Alcohol abuse acute Acute alcohol withdrawal res olved [facility] Work Phone: Evaluation note* Diagnosis Onset Date Resolution Status Alcohol abuse acute Acute alcohol withdrawal res olved [facility] Work Phone: Evaluation note* Diagnosis Onset Date Resolution Status Alcohol withdrawal acute [facility] Work Phone: Evaluation note* Diagnosis Onset Date Resolution Status Alcohol withdrawal acute Desire for detoxification ac [place] [facility] Work Phone: Evaluation note* Diagnosis Onset Date Resolution Status Alcohol withdrawal resolved Desire for detoxification re solved [facility] Work Phone: Evaluation note* Diagnosis Right inguinal hernia Inguinal hernia without mention of obstruction or gangrene, unilateral or unspecified, (not specified as recurrent) Screening for colon cancer Special screening for malignant neoplasms, colon Right inguinal hernia Inguinal hernia without mention of obstruction or gangrene, unilateral or unspecified, (not specified as recurrent) [facility] Onset Date Resolution Status Alcohol abuse acute Alcohol dependence acute Desire for detoxification ac [place] Alcoholism chronic [facility] Work Phone: History and physical note Author Alisha Mcintyre [facility] April 26, 2023 7:23pm Note Date/Time April 26, 2023 7:07 pm [facility] Medical Records Department [address] [place] [address] H&P Exam - Hospitalist 04/26/23 1903 MR#: [id number] Acct: [id number] Name: MICHAEL MCNEILL SANTOS Rep #:[id number] : 1975 47 From: Alisha Mcintyre MD [...] GERD, HTN, HLD who presents to the [facility] ED on 04/26/23 with acute EtOH [...] UDS pending upon requested evaluation of patient. [facility] Medical History (Updated 04/26/23 @ 19:21 by [...] mg) PO DAILY 5 days #10 tabs 04/23/23 [Rx Last Taken Unknown] albuterol sulfate 90 [...] % (Auto) 56.3, Lymph % (Auto) 22.0, Wilkes % (Auto) 6.0, Eos % (Auto) 14.7 [...] GERD, HTN, HLD who presents to the [facility] ED on 04/26/23 with acute EtOH [...] encourage ambulation. Charges/Coding Visit Charges Inpatient E&M: 53142 Init Hosp L2 04/26/231922 <Electronically signed by Alisha Mcintyre MD> Cosigner Signature (if applicable): CC: Dr. Alisha Mcintyre MD; No Primary Care Physician~ Signed [facility] Work Phone: History and physical note Author [facility] October 29, 2023 4:59am Note Date/Time October 29, 2023 4 :41am [facility] Medical Records Department [address] [place] [id number] H&P Exam - Hospitalist 10/29/23 0437 MR#: [id number] Acct: [id number] Name: MICHAEL MCNEILL SANTOS Rep #:[id number] : 1975 47 From: Alisha Mcintyre MD [...] GERD, HTN, HLD who presents to the [facility] ED on 04/26/23 with acute EtOH [...] alcohol level, urine drug screen upon evaluation. [facility] Medical History (Updated 10/29/23 @ 04:39 by [...] GERD, HTN, HLD who presents to the [facility] ED on 04/26/23 with acute EtOH [...] of admission. Charges/Coding Visit Charges Inpatient E&M: 17902 Init Hosp L2 10/29/23 0459 <Electronically signed by Alisha Mcintyre MD> Cosigner Signature (if applicable): CC: Dr. Alisha Mcintyre MD; No Primary Care Physician~ Signed [facility] Work Phone: Hospital Discharge instructions Additional Instructions Follow-up with a dentist as soon as possible for your right front tooth avulsion.[facility] Work Phone: Hospital Discharge instructions Additional Instructions Wash your hand thoroughly daily. Apply antibiotic ointment to all this cuts on your left hand twice a day. Apply hand moisturizer twice a day your skin is getting very dry. Currently there is no signs of infection. Watch for pus, red streaks, fever or swelling of seen needs to be reevaluated.[facility] Work Phone: Hospital Discharge instructions Additional Instructions Please follow-up with the PCP I referred you to.[facility] Work Phone: Hospital Discharge instructions Additional Instructions See your physician as scheduled in April.[facility] Work Phone: Hospital Discharge instructions Additional Instructions Please use your inhaler as directed to control any asthma symptoms and return to the ER should you have any further [facility] Work Phone: Hospital Discharge instructions Additional Instructions Follow-up with the surgeons office tomorrow so they can reprint the appropriate follow-up paperwork and plans for your hernia surgery.[facility] Work Phone: Hospital Discharge instructions Additional Instructions Use albuterol inhaler 1 to 2 puffs inhaled every 4-6 hours as needed for shortness of breath. Follow-up with a primary care provider regarding your chronic cough. Return to the emergency department with increased difficulty breathing, new or worsening symptoms. [facility] Work Phone: Hospital Discharge instructionsAdditional Instructions Follow-up with your doctor in outpatient. Return with worsening symptoms or any concerns.[facility] Work Phone: Hospital Discharge instructionsAdditional Instructions Follow-up with 180 outpatient Date [facility]: [facility]/25[facility] Work Phone: Reason for referral (narrative)* Outpatient Procedure (Routine) - Authorized Specialty Diagnoses / Procedures Referred By Contac t Referred To Contact [facility] Diagnoses Screening for colon cancer Procedures COLONOSCOPY SCREENING COLONOSCOPY FLX DX W/COLLJ SPEC WHEN Linda Manrique MD [address] [place] [address] [facility] [address] [place] [address] Referral ID Status Reason Start Date Expiration Date Visits Requested Visits Authorized [id number] Authorized Auto-Generat ed Referral 3 08/28/2024 1 1 [facility] for referral (narrative)No reason for referral information availableW[facility] Work Phone: Summary Purpose Family History No [...] February 12, 2022 7 :15pm Power of Doctor Assistant No February 12, 2022 7:15pm Advance Directive Response Recorded Date/ Time Advance Directives No April 02 4 8:34pm Living Will No March 19, 2022 8:44pm Power of Doctor Assistant No March 19 8:44pm Advance Directive Response Recorded Date/ Time Advance Directives No April 02 4 8:34pm Living Will No March 19, 2022 10:50pm Power of Doctor Assistant No March 19 10:50pm Advance Directive Response Recorded Date/ Time Advance Directives No April 02 4 8:34pm Living Will No March 28, 2022 4:26pm Power of Doctor Assistant No March 28 2 4:26pm Advance Directive Response Recorded Date/ Time Advance Directives No April 02 4 8:34pm Living Will No May 23 2 11:27pm Power of Doctor Assistant No May 23 2 022 11:27pm Advance Directive Response Recorded Date/ Time Advance Directives No April 02 4 8:34pm Living Will No May 24 1:55am Power of Doctor Assistant No May 24 022 1:55am Advance Directive Response Recorded Date/ Time Advance Directives No April 02 4 8:34pm Living Will No July 15 9:08pm Power of Doctor Assistant No July 15, 2022 9:08pm Advance Directive Response Recorded Date/ Time Advance Directives No April 02 4 8:34pm Living Will No July 26 6:25pm Power of Doctor Assistant No July 26, 2022 6:25pm Advance Directive Response Recorded Date/ Time Advance Directives No April 02 4 7:34pm Living Will No August 14 022 6:57am Power of Doctor Assistant No August 14, 2022 6:57am Advance Directive Response Recorded Date/ Time Advance Directives No April 02 4 7:34pm Living Will No September 05 11:06am Power of Doctor Assistant No September 05, 2022 11:06am Advance Directive Response Recorded Date/ Time Advance Directives No April 02 4 7:34pm Living Will No September 09 1:56am Power of Doctor Assistant No September 09, 2022 1:56am Advance Directive Response Recorded Date/ Time Advance Directives No April 02 4 7:34pm Living Will No October 09 1:37pm Power of Doctor Assistant No October 09 2 023 1:37pm Advance Directive Response Recorded Date/ Time Advance Directives No April 02 4 7:34pm Living Will No November 03 1:05pm Power of Doctor Assistant No November 03, 2022 1:05pm Advance Directive Response Recorded Date/ Time Advance Directives No April 02 4 7:34pm Living Will No December 01, 2022 11:33pm Power of Doctor Assistant No December 01 11:33pm Advance Directive Response Recorded Date/ Time Advance Directives No April 02 4 8:34pm Living Will No December 15, 2022 6:32pm Power of Doctor Assistant No December 15 6:32pm Advance Directive Response Recorded Date/ Time Advance Directives No April 02 4 8:34pm Living Will No December 23, 2022 11:29pm Power of Doctor Assistant No December 23 11:29pm Advance Directive Response Recorded Date/ Time Advance Directives No April 02 4 8:34pm Living Will No March 26, 2023 12:10am Power of Doctor Assistant No March 26 12:10am Advance Directive Response Recorded Date/ Time Advance Directives No April 02 4 8:34pm Living Will No April 26, 2023 7:47pm Power of Doctor Assistant No April 26 7:47pm Advance Directive Response Recorded Date/ Time Advance Directives No April 02 4 8:34pm Living Will No April 26, 2023 8:56pm Power of Doctor Assistant No April 26 8:56pm Advance Directive Response Recorded Date/ Time Advance Directives No April 02 4 8:34pm Living Will No May 29 12:58am Power of Doctor Assistant No May 29 2 023 12:58am Advance Directive Response Recorded Date/ Time Advance Directives No April 02 4 7:34pm Living Will No September 01 12:29am Power of Doctor Assistant No September 01, 2023 12:29am Advance Directive Response Recorded Date/ Time Advance Directives No April 02 4 7:34pm Living Will No October 15 11:33am Power of Doctor Assistant No October 15, 2023 11:33am Advance Directive Response Recorded Date/ Time Advance Directives No April 02 4 7:34pm Living Will No October 29 4:23am Power of Doctor Assistant No October 29, 2023 4:23am Advance Directive Response Recorded Date/ Time Advance Directives No April 02 4 7:34pm Living Will No October 29 5:54am Power of Doctor Assistant No October 29, 2023 5:54am Advance Directive Response Recorded Date/ Time Living Will No September 07 12:41pm Power of Doctor Assistant No September 07, 2024 12:41pm Living Will No November 11 025 6:41pm Power of Doctor Assistant No November 11, 2024 6:41pm Living Will No December 04, 2024 8:21pm Power of Doctor Assistant No December 04 8:21pm Living Will No December 13, 2024 12:35pm Power of Doctor Assistant No December 13 12:35pm Living Will No September 19, 2 024 7:59pm Power of Doctor Assistant No September 19, 2024 7:59pm Living Will No October 21 9:51pm Power of Doctor Assistant No October 21, 2024 9:51pm Living Will No November 27, 2 025 3:01pm Power of Doctor Assistant No 2024 3:01pm Advance Directives No April 02 4 8:34pm Advance Directive Response Recorded Date/ Time Living Will No November 11 6:41pm Do you have a Healthcare Power of Doctor Assistant? No November 11, 2024 6:41pm Living Will No December 04, 2024 8:21pm Do you have a Healthcare Power of Doctor Assistant? No December 04, 2024 8:21pm Living Will No December 13, 2024 12:35pm Do you have a Healthcare Power of Doctor Assistant? No December 13, 2024 12:35pm Living Will No January 19, 2025 2:10pm Do you have a Healthcare Power of Doctor Assistant? No January 19, 2025 2:10pm Living Will No October 21 9:51pm Do you have a Healthcare Power of Doctor Assistant? No October 21, 2024 9:51pm Living Will No November 27, 2 025 3:01pm Do you have a Healthcare Power of Doctor Assistant? No 2024 3:01pm Advance Directives No April 02 4 8:34pm Advance Directive Response Recorded Date/ Time Living Will No December 04, 2024 8:21pm Do you have a Healthcare Power of Doctor Assistant? No December 04, 2024 8:21pm Living Will No December 13, 2024 12:35pm Do you have a Healthcare Power of Doctor Assistant? No December 13, 2024 12:35pm Living Will No January 19, 2025 2:10pm Do you have a Healthcare Power of Doctor Assistant? No January 19, 2025 2:10pm Do you have a Healthcare Power of Doctor Assistant? No March 29, 2025 5:57pm Advance Directives No April 02 8:34pm Advance Directive Response Recorded Date/ Time Living Will No December 04, 2024 8:21pm Do you have a Healthcare Power of Doctor Assistant? No December 04, 2024 8:21pm Living Will No December 13, 2024 12:35pm Do you have a Healthcare Power of Doctor Assistant? No December 13, 2024 12:35pm Living Will No January 19, 2025 2:10pm Do you have a Healthcare Power of Doctor Assistant? No January 19, 2025 2:10pm Do you have a Healthcare Power of Doctor Assistant? No March 29, 2025 5:57pm Do you have a Healthcare Power of Doctor Assistant? No March 30, 2025 10:51am Advance Directives No April 02 8:34pm Advance Directive Response Recorded Date/ Time Living Will No January 19, 2025 2:10pm Do you have a Healthcare Power of Doctor Assistant? No January 19, 2025 2:10pm Do you have a Healthcare Power of Doctor Assistant? No March 29, 2025 5:57pm Do you have a Healthcare Power of Doctor Assistant? No March 30, 2025 10:51am Do you have a Healthcare Power of Doctor Assistant? No April 16, 2025 9:44pm Advance Directives No April 02 8:34pm Advance Directive Response Recorded Date/ Time Living Will No January 19, 2025 2:10pm Do you have a Healthcare Power of Doctor Assistant? No January 19, 2025 2:10pm Do you have a Healthcare Power of Doctor Assistant? No March 29, 2025 5:57pm Do you have a Healthcare Power of Doctor Assistant? No March 30, 2025 10:51am Do you have a Healthcare Power of Doctor Assistant? No April 16, 2025 11:23pm Advance Directives No April 02 8:34pm Hospital Course Note EMERGENCY DEPARTMENT DISCHAR GE SUMMARY PATIENT NAME:MICHAEL MCNEILL MRN: [facility]-[id number] AGE: 43 Years SEX: Male PHONE:[phone] DOS: 08/04/2019 00:26:00 : 1975 ATTENDING PHYSICIAN:Amy Jaimes MD PCP: Physician, Gayathri PCP CHIEF COMPLAINT: wheezing/congestion Allergies No Known Medication Allergies Problems Active Depression Anxiety Asthma DISCHARGE DIAGNOSIS: DISCHARGE INSTRUCTIONS: [facility] (Custom); Asthma, Acute Bronchospasm ED [...] Tobacco abuse April 16, 2025 10:2 7pm Chief Complaint Admit Date SOB January 19, 2025 1:4 2pm weakness March 29, 2025 5:45 pm sob March 30, 2025 10:4 4am ETOH DETOX April 16, 2025 11:0 0pm ETOH DETOX April 17, 2025 7:14 am ETOH DETOX April 18, 2025 12:4 6pm Reason for Visit Admit Date Alcohol withdrawal April 16, 2025 11:0 0pm ETOH abuse April 16, 2025 11:0 0pm Marijuana use April 16, 2025 11:0 0pm Methamphetamine use April 16, 2025 11:0 0pm Tobacco abuse April 16, 2025 11:0 0pm Additional Source Comments (unrecognized sect ion and content) No Status Records FoundNo Status Records FoundNo Status Records FoundNo Status Records FoundNo Status Records Found INFORMATION SOURCE (unrecogn ized section and content) DATE CREATED AUTHOR 06/15/2018 [facility] DATE CREATED AUTHOR AUTHOR'S ORGANIZ ATION 08/04/2019 [facility] DATE CREATED AUTHOR AUTHOR'S ORGANIZ ATION 08/08/2024 [facility] DATE CREATED AUTHOR AUTHOR'S ORGANIZ ATION 02/06/2025 [facility] DATE CREATED AUTHOR AUTHOR'S ORGANIZ ATION 04/23/2025 [facility] Goals (unrecognized section and content) Goals [...] Role Status Dates Dr. Remberto Bernal , DO Emergency Provider Active S tart: November [...] Role Status Dates Dr. Remberto Bernal , DO Emergency Provider Active S tart: November [...] 20, 2024 Dr. Graham Messina , DO Attending Provider Active Start: November 20, 2024 [...] Hess DO Emergency Provider Active Dr. Alisha cMintyre MD Admit Provider, Other Provider Active Dr. [...] Graham Messina DO Attending Provider, Emergency P renetta Active Team Status: Inactive Member Role Status [...] 2024 End: September 07, 2024 Dr. Julius aMtthews DO Attending Provider Active Start: September 07, [...] Attending Provider Active Start: April 16, 2025 Team Status: Inactive Member Role/Relationship Status Dates No Primary Care Physician Primary Care Provider Active Start: April 16, 2025 End: April 18, 2025 Dr. Twan Garcia MD Emergency Provider Active S tart: April 16, 2025 End: April 18, 2025 Dr. Jaquan Villarreal DO Admit Provider Active Start: April 16, 2025 End: April 18, 2025 Dr. Jauqan Villarreal DO Other Provider Active Start: April 16, 2025 End: April 18, 2025 Dr. Tom Owen MD Attending Provider Active Start: April 16, 2025 End: April 18, 2025 Team Status: Active Member Role/Relationship Status Dates No Primary Care Physician Primary Care Provider Active Start: April 17, 2025 Dr. Twan Garcia MD Emergency Provider Active S tart: April 17, 2025 Dr. aJquan Villarreal DO Admit Provider Active Start: April 17, 2025 Dr. Jaquan Villarreal DO Other Provider Active Start: April 17, 2025 Dr. Tom Owen MD Attending Provider Active Start: April 17, 2025 Dr. Tom Owen MD Other Provider Active Sta rt: April 17, 2025 Team Status: Active Member Role/Relationship Status Dates No Primary Care Physician Primary Care Provider Active Start: April 18, 2025 Dr. Twan Garcia MD Emergency Provider Active S tart: April 18, 2025 Dr. Jaquan Villarreal DO Admit Provider Active Start: April 18, 2025 Dr. Jaquan Villarreal DO Other Provider Active Start: April 18, 2025 Dr. Tom Owen MD Attending Provider Active Start: April 18, 2025 Dr. Tom Owen MD Other Provider Active Sta rt: April 18, 2025 Source Comments (unrecognize d section and content) In the event this informatio n is protected by the Federal Confidentiality of Alcohol and Drug Abuse Patient Records regulations: The Federal rules restrict any use of the information to criminally investigate or prosecute any alcohol or drug abuse patient.[facility] the event this information is protected by the Federal Confidentiality of Alcohol and Drug Abuse Patient Records regulations: The Federal rules restrict any use of the information to criminally investigate or prosecute any alcohol or drug abuse patient.[facility] Reason for Visit (unrecogniz ed section and content) Reason Comments Consult Right side groin hilaria n Reason Comments 09/05/2023 [facility] + 10/03/2023 [facility] GON[facility] FOR RECORDS PERTAINING TO [...] BE BASED ON THE PRIMARY CLINICAL RECORDS. [employer] [facility]. provides no warranty or guarantee of the accuracy or completeness of information in this document.
[2025-04-27 10:21] VITALS: BP 115/72; PULSE 74; RESP 18; TEMP 36.7; O2SAT 100
== END 2025-04-27 10:24 | disposition home or self-care (01) ==
LOC: ED 10:07
PROVIDERS: Emergency Provider Emergency Medicine; Visit Provider Emergency Medicine
DX: Z76.0 Encounter for issue of repeat prescription (principal); J45.909 Unspecified asthma, uncomplicated; Z59.00 Homelessness unspecified; I10 Essential (primary) hypertension; K21.9 Gastro-esophageal reflux disease without esophagitis; F17.220 Nicotine dependence, chewing tobacco, uncomplicated
CPT/HCPCS: 99281

== ENCOUNTER 2025-05-09 10:59 | Emergency (ER) | payer MEDICAID, SELFPAY ==
[2025-05-09 11:00] VITALS: BP 112/83; PULSE 93; RESP 14; TEMP 36.6; O2SAT 98; BMI 19.8
--- NOTE | 2025-05-09 11:22 | ED.VIS.DYS ---
HPI History of Present Illness Chief Complaint: Cold Sx Informant: patient Narrative Narrative: 49-year-old male poor informant states he started having a cough and trouble breathing last night worse today. States he thinks he has COPD, he takes no prescription does not have a doctor, states he had an inhaler but he is out of it. States he would have used it for this. Denies any chest discomfort or leg edema orthopnea fevers or chills. He has a bit of a headache and sore throat. Denies travel out of the area recently and no known sick contacts. PFSH PFS Medical History Tobacco abuse Alcohol withdrawal ETOH abuse Methamphetamine abuse Asthma Depression Anxiety Methamphetamine abuse Ankle fracture, left Bipolar disorder Depression Anxiety Past history of chewing tobacco use Asthma with COPD Anxiety and depression Inguinal hernia bilateral, non-recurrent Hypertension Stroke/cerebrovascular accident Alcohol abuse Bulla of lung GERD (gastroesophageal reflux disease) Home Medications ?Medication ?Instructions ?Recorded ?Last Taken ?Type albuterol sulfate 90 mcg/actuation 2 puff inhalation Q4H PRN PRN 04/27/25 Unknown Rx aerosol inhaler (Ventolin HFA) Wheezing ##1 albuterol sulfate 90 mcg/actuation 1 - 2 puff inhalation Q4H PRN PRN 05/09/25 Unknown Rx aerosol inhaler (Ventolin HFA) Wheezing ##1 doxycycline monohydrate 100 mg 100 mg PO BID #14 CAPSULES 05/09/25 Unknown Rx capsule prednisone 20 mg tablet 40 mg (2 x 20 mg) PO DAILY 6 days 05/09/25 Unknown Rx #12 tabs Allergy/AdvReac Type Severity Reaction Status Date / Time No Known Allergies Allergy Verified 05/09/25 11:00 Family History Father Alcoholism CAD (coronary artery disease) Heart disease Hypertension Mother Alcoholism Seizures Surgical History History of ankle surgery Social History housing: homeless Smoking Status: Former smoker Smokeless tobacco user: chewing tobacco how long ago did patient quit smoking: Notes no cig tob use, prior chew only but no current, ongoing cannabis use. alcohol intake: current alcohol intake frequency: a few times a week details: 5-6 beers daily, occasionally whiskey. substance use type: marijuana, amphetamines, opiates and methamphetamine ROS ROS ED Constitutional Constitutional ED: Reports malaise; Denies chills or fever(s) Eyes Eyes: Denies change in vision or diplopia ENT ENT ED: Reports headache(s), nasal congestion, rhinorrhea and sore throat; Denies ear pain Cardiovascular Cardiovascular: Denies chest pain, leg edema, orthopnea or palpitations Respiratory/Chest Respiratory/Chest: Reports cough and dyspnea; Denies orthopnea or sputum Gastrointestinal Gastrointestinal: Denies abdominal pain, diarrhea, nausea or vomiting Genitourinary Genitourinary ED: Denies dysuria or hematuria Musculoskeletal Musculoskeletal: Denies back pain or neck pain Integumentary Denies abscess or rash Neurologic Neurologic: Reports headache(s); Denies paresthesias or weakness Psychiatric Psychiatric: Denies anxiety or suicidal thoughts EXAM Physical Exam Const Vital Signs: 05/09/25 11:00 05/09/25 11:24 05/09/25 11:38 Temperature 98 F Temperature Source Temporal Pulse Rate 93 Respiratory Rate 14 Respiratory Effort Normal Non-Labored Respiratory Pattern Normal Blood Pressure 112/83 H Blood Pressure Mean 92 Pulse Ox 98 99 Oxygen Delivery Method Room Air Room Air 05/09/25 11:38 05/09/25 13:07 Temperature 98.9 F Temperature Source Pulse Rate 83 81 Respiratory Rate 20 H 16 Respiratory Effort Respiratory Pattern Blood Pressure 115/64 Blood Pressure Mean 81 Pulse Ox 95 Oxygen Delivery Method Positive well nourished and well developed General Appearance ED: well developed and NAD HEENT Reports moist mucous membranes normocephalic and atraumatic Eyes PERRL and EOMs intact bilaterally Neck full ROM, no lymphadenopathy, supple and no meningeal signs Resp Resp Narrative: Occasional bronchospasm without production of sputum. No respiratory distress. Equal breath sounds bilaterally, diffusely diminished, the rest of the exam is limited since the patient is humming and groaning with every expiration. Some pursed lip breathing but no respiratory distress and able to converse. Cardio regular rate, regular rhythm and no murmurs GI non-tender and non-distended Auscultation: normoactive bowel sounds Palpation: soft Back/Spine no CVA tenderness General Back: other FROM Extremity normal to inspection General Extremety ED: Negative for edema, pulses abnormal or tenderness General Extremity: Negative for edema or pulses abnormal Neuro oriented x3, CN's II-XII intact bilaterally and no sensory deficits noted Sensorium / Orientation: awake and alert Motor Exam: strength 5/5 throughout Psych Mood & Affect: anxious Skin no rashes or lesions noted and no wounds MDM MDM MDM Narrative Medical decision making narrative: 2 view chest x-ray my interpretation shows hyperexpansion consistent with COPD and no acute infiltrate/pneumonia. Radiology in agreement. After duo nebulizer treatment he is improved some. His vital signs are normal even before that, I and started him on prednisone and doxycycline treat him as a COPD exacerbation likely viral etiology of his illness, although his COVID/influenza/RSV swab is negative. Given appropriate follow-up instructions. Radiography Diagnostic Testing: Clinical Impression(s) from Imaging Studies Chest X-Ray 05/09/25 11:55 IMPRESSION: Scarring in the periphery of the right upper lobe and apex unchanged. Otherwise unremarkable Reading Location: [id number] Discharge Plan Triage Chief Complaint: Cold Sx ED Provider: Darinel Henriquez Dx/Rx/DC Orders Clinical Impression: Viral URI with cough, Acute exacerbation of chronic obstructive pulmonary disease Instructions: ED COPD Flare Prescriptions: New prednisone 20 mg tablet 40 mg PO DAILY 6 Days Qty: 12 0RF doxycycline monohydrate 100 mg capsule 100 mg PO BID Qty: 14 0RF albuterol sulfate [Ventolin HFA] 90 mcg/actuation HFA aerosol inhaler 1 - 2 puff inhalation Q4H PRN PRN (Reason: Wheezing) Qty: 1 0RF No Action albuterol sulfate [Ventolin HFA] 90 mcg/actuation HFA aerosol inhaler 2 puff inhalation Q4H PRN PRN (Reason: Wheezing) Qty: 1 2RF Primary Care Provider: Care Physician,No Primary [facility] [Non-Staff] - As soon as possible Print Language: Yakut Disposition Disposition: Home, Self Care Discharge Date/Time: 05/09/25 13:16
[2025-05-09 11:38] VITALS: PULSE 83; RESP 20; O2SAT 99
--- NOTE | 2025-05-09 11:55 | RAD_ITS ---
PROCEDURE: CHEST PA AND LATERAL 05/09/2025 REASON FOR EXAM: COUGH SOB TECHNIQUE: CHEST PA AND LATERAL COMPARISON: March 29, 2025, October 21, 2024 FINDINGS: Hardware: None Heart: Normal Mediastinum: Normal Lungs: Scarring in the periphery of the right upper lobe and apex is unchanged. Otherwise, the lungs are clear. No pneumothorax or pleural effusion. Bones: The bones are unremarkable. RAD/Chest PA and Lateral IMPRESSION: Scarring in the periphery of the right upper lobe and apex unchanged. Otherwis e unremarkable Reading Location: [id number]
--- NOTE | 2025-05-09 12:04 | CM.ED ---
Social Work SW met patient, introduced self and role with [facility]. Patient states he has been staying at [facility] and is still currently homeless. When asked if patient has been in contact with the homeless navigator, patient states that he has an appointment with them tomorrow. Patient also stated he still has the resources he has previously been given and declines the need for them again. Patient was given information for [facility] as he stated he still does not have a PCP. No further needs identified at this time. Mayra Hollins, CASINO PORTER, ENTERER
[2025-05-09 13:07] VITALS: BP 115/64; PULSE 81; RESP 16; TEMP 37.2; O2SAT 95
== END 2025-05-09 13:16 | disposition home or self-care (01) ==
PROVIDERS: Emergency Provider Emergency Medicine; Visit Provider Emergency Medicine
DX: J06.9 Acute upper respiratory infection, unspecified (principal); J44.1 Chronic obstructive pulmonary disease with (acute) exacerbation; Z59.00 Homelessness unspecified; Z87.891 Personal history of nicotine dependence; Z86.73 Personal history of transient ischemic attack (TIA), and cerebral infarction without residual deficits
CPT/HCPCS: 71046; 87631; 94640; 99282

== ENCOUNTER 2025-08-15 19:34 | Emergency (ER) | payer MEDICAID, SELFPAY ==
[2025-08-15 19:35] VITALS: BP 118/87; PULSE 99; RESP 20; TEMP 36.6; O2SAT 100; BMI 19.5
[2025-08-15 20:39] VITALS: BP 118/87; PULSE 99; RESP 20; TEMP 36.6; O2SAT 100
--- NOTE | 2025-08-15 20:40 | EDS_ITS ---
HPI HPI - GI History of Present Illness Chief Complaint: Abd Pain Narrative Narrative: Patient is a 49-year-old male presenting emergency department for "holes in my bowel movements". Patient has a past medical history of alcohol abuse, marijuana abuse, methamphetamine abuse, asthma. Patient states that a spider bit him in the right upper inner thigh 1 year ago and since then he has had intermittent pain in his abdomen. States it has been intermittent for the past few months. He denies any pain at time of evaluation today. Denies any fever, chills, nausea, vomiting. Denies any diarrhea or constipation. States that he has noticed "holes in my bowel movements". He thinks that this is related to the spider bite. He denies any change to the caliber or color of his stool. He denies any dysuria or hematuria. [facility] Medical History Tobacco abuse Alcohol withdrawal ETOH abuse Methamphetamine abuse Asthma Depression Anxiety Methamphetamine abuse Ankle fracture, left Bipolar disorder Depression Anxiety Past history of chewing tobacco use Asthma with COPD Anxiety and depression Inguinal hernia bilateral, non-recurrent Hypertension Stroke/cerebrovascular accident Alcohol abuse Bulla of lung GERD (gastroesophageal reflux disease) Home Medications Medication Instructions Recorded Last Taken Type albuterol sulfate 90 mcg/actuation 2 puff inhalation Q 4H PRN PRN 04/27/25 Unknown Rx aerosol inhaler (Ventolin HFA) Wheezing ##1 albuterol sulfate 90 mcg/actuation 1 - 2 puff inhalati on Q4H PRN PRN 05/09/25 Unknown Rx aerosol inhaler (Ventolin HFA) Wheezing ##1 doxycycline monohydrate 100 mg 100 mg PO BID #14 CAPSU LES 05/09/25 Unknown Rx capsule prednisone 20 mg tablet 40 mg (2 x 20 mg) PO DAILY 6 days 05/09/25 Unknown Rx #12 tabs Allergy/AdvReac Type Severity Reaction Status Date / Time No Known Allergies Allergy Verified 08/15/25 19:39 Family History Father Alcoholism CAD (coronary artery disease) Heart disease Hypertension Mother Alcoholism Seizures Surgical History History of ankle surgery Social History housing: homeless Smoking Status: Former smoker Smokeless tobacco user: chewing tobacco how long ago did patient quit smoking: Notes no cig tob use, prior chew only but no current, ongoing cannabis use. alcohol intake: current alcohol intake frequency: a few times a week details: 5-6 beers daily, occasionally whiskey. substance use type: marijuana, amphetamines, opiates and methamphetamine ROS ROS ED ROS Narrative See HPI EXAM Physical Exam Narrative Exam Narrative: Vital signs: Reviewed General: Alert and orientedx3. No acute distress. Unkept. HEENT: Head is normocephalic and atraumatic, sinuses nontender, pupils equal round and reactive. Nares are patent. Oropharynx and throat exams normal. Neck: Supple without lymphadenopathy nontender Cardiovascular: Regular rate and rhythm, no murmurs. No rubs or gallops. Normal S1 and S2 Respiratory: Clear to auscultation bilaterally. No wheezes, rales, rhonchi Abdominal: Soft and nontender to palpation. Normal bowel sounds. No guarding or rebound. Nonsurgical abdomen : Done with healthcare science specialist RN at bedside. Right sided inguinal hernia that is soft and has no overlying skin changes. Easily reducible. No pain on palpation. Extremities: No tenderness. No bruising. Normal range of motion. Normal sensation. Skin: No rash or redness. Neurological: Cranial nerves II through XII are grossly intact. Normal strength and sensation. Normal cerebellar function The rest of the physical exam is unremarkable Const Vital Signs: 08/15/25 19:35 08/15/25 20:39 Temperature 97.8 F 97.8 F Temperature Source Temporal Pulse Rate 99 99 Respiratory Rate 20 H 20 H Blood Pressure 118/87 H 118/87 H Blood Pressure Mean 97 97 Pulse Ox 100 100 Oxygen Delivery Method Room Air MDM MDM MDM Narrative Medical decision making narrative: Patient is a 49-year-old male presenting to the emergency department for "holes in my bowel movements". Patient was seen and examined. Vitals are stable. Patient resting in bed comfortably no acute distress. He is fidgeting frequently and appears under the intoxication of methamphetamine. When asked about this he states that he used last night. He states that he has noticed the change in his stools for multiple weeks. He states he has had abdominal pain on and off for years. Has no abdominal pain here or on physical exam. Has a reducible inguinal hernia that he follow-up general surgery for. He is well-appearing with no fever, chills, nausea or vomiting. He has no physical complaints at time of evaluation. Do not think patient requires labs or imaging. He was given general surgery follow-up as needed for his hernia which is again very easily reducible with no overlying skin changes and causes no pain. No signs of strangulation or incarceration. Instructed to increase his fiber intake to have softer stools which may help with the change of consistency of stool that he noticed. Patient discharged from the Emergency Department. I do not feel that the patient's evaluation reveals any acute reason for admission at this time. I instructed them to either follow-up with their primary care physician or promptly return to the Emergency Department for reevaluation should symptoms worsen or new symptoms develop. I explained what symptoms would indicate the need to return to the emergency department. Shared decision making was used. The patient voiced understanding of the treatment plan and is agreeable with it. Clinical impression Hernia Change in stool consistency History & Record Review Discussion w/independent historian: Patient Additional record(s) reviewed:: Prior ED visit Discharge Plan Triage Chief Complaint: Abd Pain ED Provider: Dali Shipman Dx/Rx/DC Orders Clinical Impression: Change in consistency of stool, Hernia, Methamphetamine use Instructions: ED Hernia (Adult) Prescriptions: No Action albuterol sulfate [Ventolin HFA] 90 mcg/actuation HFA aerosol inhaler 2 puff inhalation Q4H PRN PRN (Reason: Wheezing) Qty: 1 2RF prednisone 20 mg tablet 40 mg PO DAILY 6 Days Qty: 12 0RF doxycycline monohydrate 100 mg capsule 100 mg PO BID Qty: 14 0RF albuterol sulfate [Ventolin HFA] 90 mcg/actuation HFA aerosol inhaler 1 - 2 puff inhalation Q4H PRN PRN (Reason: Wheezing) Qty: 1 0RF Primary Care Provider: Care Physician,No Primary Referrals: Troy Monroy MD [Med Staff - Active Staff, Family Practice] - As soon as possible Rafaela Brower MD [Med Staff - Active Staff, General Surgery] - As soon as possible Care Physician,No Primary [Primary Care Provider, Medical] Activity Restrictions/Additional Instructions: I provided you a surgeon for follow up for your hernia if you would like to have this fixed. Your evaluation in the Emergency Department did not reveal any acute reason for admission. However, I want to emphasize that you may be early in the course of a disease process or illness even if it is not present. For this reason you should follow-up within 24 hours for reevaluation with either your primary care physician or if necessary back here in the Emergency Department. You should return to the Emergency Department immediately if your symptoms worsen or new symptoms develop. Print Language: American Disposition Disposition: Home, Self Care Discharge Date/Time: 08/15/25 20:49 D/C Safety Score for UGIB Assessment [place] Bleeding Score (GBS): Stratifies upper GI bleeding patients who are "low-risk" and candidates for outpatient management. Hemoglobin, BUN, Recent Vital Signs: Pulse Rate 99 Blood Pressure 118/87 Score Interpretation: Score of 0: A GBS of 0 is a “Low Risk” GI bleed, and is highly sensitive (99.6% in a 2007 retrospective study) for predicting which patients did not require any “medical intervention”: blood transfusion, endoscopy, or surgery. This was confirmed in a 2009 [facility] study where patients with a score of 0 were actually discharged and had no GI bleeding mortality at 6 month followup Score above 0: A GBS greater than zero suggests a “High Risk” GI bleed that is likely to require “medical intervention”: transfusion, endoscopy, or surgery. A higher GBS also correlated with a higher likelihood of needing intervention Scores >/= 6 are associated with >50% risk of needing intervention D/C Safety Score for LGIB Assessment Assessment Tool: Readmission and adverse event risk in patients with acute lower GI bleeding. Hemoglobin and Recent Vital Signs: Pulse Rate 99 08/15/25 20:39 Blood Pressure 118/87 08/15/25 20:39 Score Interpretation: Probability Percentage of safe discharge (absence of rebleeding, blood t ransfusion, therapeutic intervention, 28 day readmission, or ) Score of 8 or below: Consider discharge, with appropriate precautions. Score of 9 or above: Discharge NOT recommended. Consider admission with further workup and resuscitation as necessary.
--- OUTSIDE RECORDS SUMMARY | 2025-08-15 20:47 | XMS RPT_ITS | CCD ---
Author Organization [facility] Care Team Providers Care Tower Cleaner Name Role Phone CONSULT, ED PSYCHIATRY [...] Provider Dr. Julius Matthews DO Attending Provider Homar Nieves MD Attending Provider Nico WEI, Dr. Strong Emergency Provider Care Physician, No Primary Primary Care Provider Unavailable Dr. Julius Matthews DO Emergency Provider Nico WEI, Dr. Strong Attending Provider Michaelle JONES, Dr. Cortes Referring Provider Dr. Sebastian Braswell DO Emergency Provider Dr. Graham Messina DO Emergency Provider Care Physician, No Primary Primary Care Provider Unavailable Michaelle JONES, Dr. Cortes Attending Provider Dr. Graham Messina DO Attending Provider [phone] Jose WEI, Dr. Trent Emergency Provider de Hal JONES, Dr. Partida Admit Provider Unavail able de Hal DO, Dr. Partida Attending Provider Unav ailable Jose WEI, Dr. Trent Emergency Provider de Hal JONES, Dr. Partida Admit Provider Unavail able de Hal DO, Dr. Partida Other Provider Unavail able Brayden WEI, Dr. Santos Attending Provider Brayden WEI, Dr. Santos Other Provider Florence WEI, Dr. Tena Emergency Provider Care Physician, No Primary Primary Care Unava ilable Trang Valencia Attending Unavailable Erik Trang Consulting Unavailable Trang Valencia Admitting Unavailable Graham Tolbert Attending Unavailable Graham Tolbert Consulting Unavailable Care Physician, No Primary Primary Care Unava ilable Walsh, Tae Attending Unavailable Care Physician, No Primary Primary Care Unava ilable Walsh, Tae Attending Unavailable Care Physician, No Primary Primary Care Unava ilable Maximilian Bernstein Attending Unavailable Care Physician, No Primary Primary Care Unava ilable Andrew Henning Attending Unavailable Care Physician, No Primary Primary Care Unava ilable Andrew Henning Attending Unavailable Care Physician, No Primary Primary Care Unava ilable Julius Matthews Attending Unavailable Care Physician, No Primary Primary Care Unava ilable Darinel Henriquez Attending Unavailable Care Physician, No Primary Primary Care Unava ilable Graham Tolbert Attending Unavailable Trang Valencia Referring Unavailable Trang Valencia Consulting Unavailable Trang Valencia Admitting Unavailable Care Physician, No Primary Primary Care Unava ilable Troy Monroy Consulting Unavailable Porfirio, Troy Admitting Unavailable Graham Tolbert Attending Unavailable Porfirio, Troy Referring Unavailable Care Physician, No Primary [...] Unava ilable Lacho Joy Referring Unavailabl e Lacho Joy Attending Unavailabl e Care Physician, No Primary Primary Care Unava ilable Jaquan Villarreal Attending Unavailable Jaquan Villarreal Consulting Unavailable Jaquan Villarreal Admitting Unavailable Care Physician, No Primary Primary Care Unava ilable Homar Nieves Attending Unavailable Tom Owen Attending Unavailable Tom Owen Consulting Unavailable Care Physician, No Primary Primary Care Unava ilable Troy Monroy Attending Unavailable Care Physician, No Primary Primary Care Unava ilable Troy Monroy Consulting Unavailable Troy Monroy Admitting Unavailable Graham Tolbert Attending Unavailable Troy Monroy Referring Unavailable Graham Tolbert Consulting Unavailable Allergies Allergy Classification Reported Allergen(s) Allergy Type Date of Onset Reaction(s) Facility (1 source) Seasonal allergy; Translations: [SEASONAL ALLERGIES] Propensity to adverse reactions (disorder) 3 [facility] Repository Medications Current Medications Medication Drug Class(es) Dates Sig (Normalized) Sig (Original) [id number] 200 actuat albuterol 0.09 mg/actuat metered dose inhaler (20 sources) beta2-Adrenergic Agonist Start: 04-27-2025 Albuterol Sulfate (Ventolin Hfa) 90 mcg/actuation HFA aerosol inhaler Active 1 - 2 NMA INHALATION EVERY 4 HOURS NEEDED as needed for Wheezing 1 0 May 09, 2025 12:00am Start: 12-13-2024 End: 03-29-2025 Albuterol Sulfate (Ventolin [...] 4 HOURS NEEDED March 28, 2022 12:00am codeine phosphate 2 mg/ml / promethazine hydrochloride 1.25 mg/ml oral solution (1 source) Opioid Agonist, Phenothiazine Start: 09-09-2022 take 1 mL by mouth four times daily as needed Promethazine-Codeine Active 5 ML PO 4 TIMES DAILY NEEDED 140 7 September 09, 2022 4:14am doxycycline monohydrate 100 mg oral capsule (2 sources) Tetracycline-class Drug Start: 05-09-2025 take 1 capsule by mouth twice daily Doxycycline Monohydrate 100 mg capsule Active 100 mg PO TWICE A DAY 14 0 May 09, 2025 12:00am Start: 03-28-2022 take 100 mg by mouth twice daily Doxycycline Monohydrate Active 100 MG PO TWICE A DAY March 28, 2022 12:00am [place] (Nk) (5 sources) Start: 04-16-2025 [place] (Nk) A ctive April 16, 2025 12:00am Start: 03-29-2025 [place] (Nk) A ctive March 29, 2025 12:00am Start: 03-19-2022 [place] (Nk) Tripp ctive March 19, 2022 12:00am OLANZapine 5 [...] September 05, 2022 12:00am polyethylene glycol 3350 366324 mg / potassium chloride 2970 mg / sodium bicarbonate 6740 mg / sodium chloride 5860 mg / sodium sulfate 94887 mg powder for oral solution (1 source) [...] 20 mg oral tablet (20 sources) Start: 05-09-20 take 2 tablets by mouth once daily Prednisone 20 mg tablet Active 40 mg PO DAILY 12 6 0 May 09, 2025 12:00am Start: 10-22-2024 End: 03-29-2025 take 2 tablets [...] Drug Class(es) Dates Sig (Normalized) Sig (Original) amoxicillin 875 mg / clavulanate 125 mg oral tablet (9 sources) Penicillin-class Antibacterial Start: 5 End: 5 Amoxicillin-Pot Clavulanate 875-125 mg tablet Discontinued 1 {tbl} PO Q12H 10 0 October 22, 2024 1:00am March 29, 2025 5:58pm azithromycin 250 mg oral tablet (9 sources) Macrolide Antimicrobial Start: 4 End: Azithromycin 250 mg tablet Discontinued 0 PO .COMPLEX 6 0 September 19, 2024 1:00am October 21, 2024 5:27pm For 250 mg dose pack: take 500 mg today (day 1), then 250 mg for 4 days (days 2-5) chlordiazePOXIDE hydrochloride 25 mg oral capsule (9 sources) Benzodiazepine Start: 4 End: 4 take [...] guaiFENesin 1200 mg extended release oral tablet (9 sources) Start: 5 End: 5 take 1 tablet by mouth twice daily, then take 1 tablet by mouth every twelve hours Guaifenesin (Mucus Relief Er) 1,200 mg Tablet Extended Release 12hr Discontinued 1200 mg PO TWICE A DAY 10 0 November 12, 2024 1:00am March 29, 2025 5:58pm hydrocortisone 10 mg/ml topical cream (9 sources) Corticosteroid Start: 4 End: 4 Hydrocortisone 1 % cream Discontinued 1 NMA TOPICAL TWICE A DAY 28.4 5 0 June 02, 2024 12:00am June 03, 2024 5:23am Multivitamin (Daily Multi-Vitamin) tablet (10 sources) Start: 4 End: Multivitamin (Daily Multi-Vitamin) tablet Discontinued 1 {tbl} PO DAILY October 31, 2023 1:00am June 03, 2024 5:23am Start: 10-31-2023 End: 06-03-2024 Multivitamin (Daily Multi-Vi tamin) tablet Discontinued 1 {tbl} PO DAILY October 31, 2023 1:00am June 03, 2024 5:23am Start: 10-31-2023 take 1 tablet by simón once daily Multivitamin (Daily Multi-Vitamin) tablet Active 1 TABLET PO DAILY October 31, 2023 12:00am Multivitamin Tablet (9 sources) Start: 11-12-2024 End: 03-29-2025 Multivitamin Tablet Disconti nued 1 {tbl} PO WITH LUNCH 0 November 12, 2024 1:00am March 29, 2025 5:59pm Start: 11-12-2024 Multivitamin T ablet Active 1 {tbl} PO WITH LUNCH 0 November 12, 2024 1:00am naproxen 500 mg oral tablet (18 sources) Nonsteroidal Anti-inflammatory Drug Start: 03-26-2023 End: 09-01-2023 take 1 tablet by mouth twice daily Naproxen 500 mg tablet Discontinued 500 mg PO TWICE A DAY 14 March 26, 2023 12:00am September 01, 2023 1:30am pain ondansetron 4 mg disintegrating oral tablet (9 sources) Serotonin-3 Receptor Antagonist Start: 06-03-2024 End: 08-03-2024 take 1 tablet by mouth three times daily as needed for nausea and vomiting Ondansetron 4 mg tablet,disintegr ating Discontinued 4 mg PO THREE TIMES A DAY as needed for nausea and vomiting 21 June 03, 2024 6:21am August 03, 2024 8:40pm penicillin v potassium 500 mg oral tablet (18 sources) Start: 03-26-2023 End: 09-01-2023 take 1 tablet by mouth four times daily sulfamethoxazole 800 mg / trimethoprim 160 mg oral tablet (9 sources) Dihydrofolate Reductase Inhibitor Antibacterial, Sulfonamide Antimicrobial Start: 06-02-2024 End: 08-03-2024 Sulfamethoxazole -Trimethoprim 800-160 mg tablet Discontinued 1 {tbl} PO TWICE A DAY 14 June 02, 2024 12:00am August 03, 2024 [...] [Encounter for issue of repeat prescription] Onset: 05-02-2025 10-31-2022 Episodic Alcohol-related disorders (20 sources) Alcohol intoxication; Translations: [Alcohol abuse with intoxication, unspecified] Onset: 04-18-2025 Chronic Alcohol-related disorders (20 sources) Alcohol intoxication; Translations: [Alcohol use, unspecified with intoxication, unspecified] Episodic Anxiety disorders (18 sources) Anxiety; Translations: [Anxiety disorder, unspecified] 06-11-2024 Chronic Asthma (20 sources) Exacerbation of asthma; Translations: [Unspecified asthma with (acute) exacerbation] Onset: 11-19-2024 09-21-2020 Chronic Cardiac dysrhythmias (20 sources) ECG: sinus tachycardia; Translations: [Tachycardia, unspecified] 10-24-2020 Episodic Chronic obstructive pulmonary disease and bronchiectasis (20 sources) [place] of lung; Translations: [Emphysema, unspecified] 02-07-2021 Chronic Chronic obstructive pulmonary disease and bronchiectasis (9 sources) Bronchitis; Translations: [Bronchitis, not specified as acute or chronic] 09-27-2024 Episodic Conditions associated with dizziness or vertigo (20 sources) Dizziness; Translations: [Dizziness and giddiness] 02-20-2022 Episodic Diseases of white blood cells (12 sources) Leukocytosis; Translations: [Elevated white blood cell count, unspecified] Onset: 11-19-2024 11-19-2024 Chronic Disorders of teeth and jaw (20 sources) Dislocation of tooth; Translations: [Dislocation of tooth, initial encounter] 11-03-2022 Episodic E Codes: Fall (20 sources) Fall; Translations: [Unspecified fall, initial encounter] 11-03-2022 Episodic Esophageal disorders (20 sources) Gastroesophageal reflux disease; Translations: [Gastro-esophageal reflux disease without esophagitis] 03-19-2022 Chronic Essential hypertension (9 sources) Hypertensive disorder; Translations: [Essential (primary) hypertension] [...] Translations: [Weakness] Onset: 04-02-2025 Episodic Mood disorders (18 sources) Bipolar disorder; Translations: [Bipolar disorder, unspecified] 06-11-2024 Chronic Nonspecific chest pain (7 sources) Chest pain; Translations: [Chest pain, unspecified] 03-29-2025 Episodic Open wounds of extremities (20 sources) Laceration of hand; Translations: [Laceration without [...] system] 10-31-2022 Episodic Other lower respiratory disease (18 sources) Single lobe lung infiltrate; Translations: [Other nonspecific abnormal finding of lung field] 09-13-2022 Episodic Other lower respiratory disease (9 sources) Cough; Translations: [Cough] 12-13-2024 Episodic Other lower respiratory disease (9 sources) Nodule of lung; Translations: [Solitary pulmonary nodule] 12-13-2024 Episodic Other lower respiratory disease (1 source) Shortness of breath; Translations: [Shortness of breath] Onset: 04-02-2025 Episodic Other nervous system disorders (20 sources) Cold feet; Translations: [Unspecified disturbances of skin sensation] 08-22-2022 Episodic Other screening for suspected conditions (not mental disorders or infectious disease) (3 sources) Patient encounter status; Translations: [Encounter for screening for malignant neoplasm of colon] 08-28-2023 Episodic Other skin disorders (9 sources) Folliculitis; Translations: [Follicular disorder, unspecified] 06-10-2024 Episodic Other upper respiratory infections (20 sources) Viral upper respiratory tract infection; Translations: [Acute upper respiratory infection, unspecified] Episodic Residual codes; unclassified (20 sources) Drug therapy finding; Translations: [Other specified health status] 08-03-2022 Episodic Residual codes; unclassified (1 source) Alcoholism; Translations: [Alcohol use disorder] 06-11-2024 Episodic Residual codes; unclassified (8 sources) Other specified conditions influencing health status; Translations: [Alcohol use disorder] 06-11-2024 Episodic Residual codes; unclassified (10 sources) Tobacco user; Translations: [Tobacco use] 04-16-2025 Episodic Residual codes; unclassified (2 sources) Difficulty managing medication; Translations: [Other specified health status] 04-27-2025 Episodic Residual codes; unclassified (1 source) Tobacco use; Translations: [Tobacco use] Onset: 04-18-2025 Episodic Screening and history of mental health and substance abuse codes (13 sources) H/O: manic depressive disorder; Translations: [Personal history of other mental and behavioral disorders] 06-06-2023 Episodic Substance-related disorders (20 sources) Substance abuse; Translations: [Other psychoactive substance abuse, uncomplicated] Onset: 11-19-2024 Chronic Substance-related disorders (11 sources) Marijuana user; Translations: [Cannabis use, unspecified, [...] source) Cough, unspecified; Translations: [Cough, unspecified] Onset: 05-13-2025 Unclassified (1 source) Alcohol use, unspecified with withdrawal, uncomplicated; Translations: [Alcohol use, unspecified with withdrawal, uncomplicated] Onset: 04-18-2025 Unclassified (1 source) Other acidosis; Translations: [Other acidosis] Onset: 11-19-2024 Past or Other Problems Problem Classification Problem Date Documented Da te Episodic/Chronic Diabetes mellitus without complication (12 sources) Hyperglycemia; Translations: [Hyperglycemia, unspecified] Onset: 11-19-2024 [...] 11-19-2024 Episodic Respiratory failure; insufficiency; arrest (adult) (15 sources) Acute hypoxemic and hypercapnic respiratory failure; [...] Test Name Value Interpretation Reference Range Facility Chest PA and Lateralon 05-09 Chest PA and Lateral Normal [facility] Emergency Department Summary on 05-09-2025 Emergency Department Summary Normal [facility] Influenza virus A and B and SARS-CoV-2 (COVID-19) and Respiratory syncytial virus RNAOrdered By: Darinel Henriquez on 05-09-2025 SARS-CoV-2 (COVID-19) RNA WES+probe Ql (Unsp spec) [facility] M100.678on 05-09-2025 M100.678 Pending SARS-CoV-2 (COVID 19) Negative INFLUENZA A Negative INFLUENZA B Negative RSV PCR Negative Normal [facility] Comment on above: Performed By: #### M 100.678 ####[facility] [address] [place], [address] Emergency Department Summary on 04-27-2025 Emergency Department Summary Normal [facility] Discharge Instructionon 04-01 Discharge Instruction Normal [facility] Phosphoruson 04-18-2025 Phosphate [Mass/Vol] 3.9 mg/dL Normal 2.7-4.5 [facility] Comment on above: Performed By: #### L 501.2300 ####[facility] [address] [place], [address] Absolute lymphocyte countOrd ered By: Jaquan Hong on 04-17-2025 Lymphocytes Auto (Unsp spec) [#/Vol] 1.40 10*3/uL 0.83-4.51 [facility] Absolute neutrophil countOrd ered By: Jaquan Hong on 04-17-2025 Neutrophils (Bld) [#/Vol] 2.7 10*3/uL 2.0-7.7 [facility] Amphetamine detection with 1 000 ng/mL as cutoffOrdered By: Jaquan Hong on 04-17-2025 Amphetamines Screen method >1000 ng/mL Ql (U) Positive < 200 ng/mL [facility] Comment on above: If confirmation test ing is needed, a separate order will be required to send out testing to the reference laboratory. Anion gap in Serum or Plasma Ordered By: Jaquan Hong on 04-17-2025 Anion gap [Moles/Vol] 10 mmol/L 5-15 [facility] Automated blood erythrocyte countOrdered By: Jaquan Hong on 04-17-2025 RBC (Bld) [#/Vol] 3.68 10*6/uL Low 4.6-6.2 [facility] Comment on above: Performed By: #### L 500.4050, L100.0100, L501.2300, L501.9520 ####[facility] [address] [place], [address] Automated blood hematocrit ( percentage)Ordered By: Jaquan Hong on 04-17-2025 Hematocrit (Bld) [Volume fraction] 33.0 % Low 40-54 [facility] Comment on above: Performed By: #### L 500.4050, L100.0100, L501.2300, L501.9520 ####[facility] [address] [place], [address] Automated lymphocyte count a s percentage of total leukocytesOrdered By: Jaquan Hong on 04-17-2025 Lymphocytes/100 WBC Auto (Unsp spec) 27.5 % 19-41 [facility] BUN/creatinine ratioOrdered By: Jaquan Hong on 04-17-2025 Urea nitrogen/Creatinine [Mass ratio] 33.3 mg/mg High 10-20 [facility] Basophil percentageOrdered B y: Jaquan Hong on 04-17-2025 Basophils/100 WBC (Bld) 1.0 % Normal 0-1 [facility] Comment on above: Performed By: #### L 500.4050, L100.0100, L501.2300, L501.9520 ####[facility] [address] [place], [address] Bilirubin Test strip Ql (U)O rdered By: Jaquan Hong on 04-17-2025 Bilirubin Ql (U) 1 mg/dL High Negative [facility] Comment on above: COLOR OF URINE MAY A FFECT DIPSTICK RESULTS. Bilirubin, totalOrdered By: Jaquan Hong on 04-17-2025 Bilirubin [Mass/Vol] 0.66 mg/dL 0.00-1.30 [facility] CBC W/Diff, Automatedon 04-01 Absolute Lymph 1.40 X10 3/uL Normal 0.83-4.51 [facility] Comment on above: Performed By: #### L 500.4050, L100.0100, L501.2300, L501.9520 ####[facility] [address] [place], [address] Absolute Neut 2.7 X10 3/uL Normal 2.0-7.7 [facility] Comment on above: Performed By: #### L 500.4050, L100.0100, L501.2300, L501.9520 ####[facility] [address] [place], [address] IG% 0.400 Normal 0.0-0.9 [facility] Comment on above: Result Comment: IG% - Immature Granulocytes (promyelocytes, myelocytes andmetamyelocytes) > 1% indicates that a LEFT SHIFT is Present. Performed By: #### L 500.4050, L100.0100, L501.2300, L501.9520 ####[facility] [address] [place], [address] Lymphocytes/100 WBC (Bld) 27.5 % Normal 19-41 [facility] Comment on above: Performed By: #### L 500.4050, L100.0100, L501.2300, L501.9520 ####[facility] [address] [place], [address] Nucleated RBC (Bld) [#/Vol] 0 10*3/uL Normal 0-5 [facility] Comment on above: Performed By: #### L 500.4050, L100.0100, L501.2300, L501.9520 ####[facility] [address] [place], [address] RDW SD 41.7 fl Normal 35.1-43.9 [facility] Comment on above: Performed By: #### L 500.4050, L100.0100, L501.2300, L501.9520 ####[facility] [address] [place], [address] Carbon dioxide, total [Moles /volume] in Central venous bloodOrdered By: Jaquan Hong on 04-17-2025 CO2 [Moles/Vol] 24.1 mmol/L 21.0-32.0 [facility] Chloride assayOrdered By: Coy Hong on 04-17-2025 Chloride [Moles/Vol] 104 mmol/L 98-108 [facility] Comprehensive Metabolic Prof ilon 04-17-2025 Albumin [Mass/Vol] 3.6 g/dL Normal 3.5-5.0 [facility] Comment on above: Performed By: #### L 500.4050, L100.0100, L501.2300, L501.9520 ####[facility] [address] [place], [address] Albumin/Globulin [Mass ratio] 1.5 {ratio} Normal 0.9-2.4 [facility] Comment on above: Performed By: #### L 500.4050, L100.0100, L501.2300, L501.9520 ####[facility] [address] [place], [address] ALK PHOS 46 U/L Normal 40-129 [facility] Comment on above: Performed By: #### L 500.4050, L100.0100, L501.2300, L501.9520 ####[facility] [address] [place], [address] ALT [Catalytic activity/Vol] 44 U/L Normal <=46 [facility] Comment on above: Performed By: #### L 500.4050, L100.0100, L501.2300, L501.9520 ####[facility] [address] [place], [address] AST [Catalytic activity/Vol] 35 U/L Normal <=37 [facility] Comment on above: Performed By: #### L 500.4050, L100.0100, L501.2300, L501.9520 ####[facility] [address] [place], [address] Bilirubin [Mass/Vol] 0.66 mg/dL Normal 0.00-1.30 [facility] Comment on above: Performed By: #### L 500.4050, L100.0100, L501.2300, L501.9520 ####[facility] [address] [place], [address] BUN/CRE 33.3 RATIO High 10-20 [facility] Comment on above: Performed By: #### L 500.4050, L100.0100, L501.2300, L501.9520 ####[facility] [address] [place], [address] Calcium [Mass/Vol] 8.9 mg/dL Normal 7.6-11.0 [facility] Comment on above: Performed By: #### L 500.4050, L100.0100, L501.2300, [id number] ####[facility] [address] [place], [address] Chloride [Moles/Vol] 104 mmol/L Normal 98-108 [facility] Comment on above: Performed By: #### L 500.4050, L100.0100, L501.2300, L501.9520 ####[facility] [address] [place], [address] CO2 [Moles/Vol] 24.1 mmol/L Normal 21.0-32.0 [facility] Comment on above: Performed By: #### L 500.4050, L100.0100, L501.2300, [id number] ####[facility] [address] [place], [address] Creatinine [Mass/Vol] 0.71 mg/dL Normal 0.70-1.20 [facility] Comment on above: Performed By: #### L 500.4050, L100.0100, L501.2300, L501.9520 ####[facility] [address] [place], [address] ECRCL 98.44 ml/min Normal 50-250 [facility] Comment on above: Performed By: #### L 500.4050, L100.0100, L501.2300, L501.9520 ####[facility] [address] [place], [address] GAP 10 Normal 5-15 [facility] Comment on above: Performed By: #### L 500.4050, L100.0100, L501.2300, L501.9520 ####[facility] [address] [place], [address] GFR/1.73 sq M.predicted among non-blacks MDRD (S/P/Bld) [Vol rate/Area] 112 mL/min/{1.73_m2} Normal >60 [facility] Comment on above: Result Comment: mL/m in/1.73m2 CKD-EPI Creatinine Equation (2020) Performed By: #### L 500.4050, L100.0100, L501.2300, L501.9520 ####[facility] [address] [place], [address] Globulin (S) [Mass/Vol] 2.4 g/dL Normal 2.2-4.2 [facility] Comment on above: Performed By: #### L 500.4050, L100.0100, L501.2300, [id number] ####[facility] [address] [place], [address] Glucose [Mass/Vol] 92 mg/dL Normal 70-99 [facility] Comment on above: Performed By: #### L 500.4050, L100.0100, L501.2300, [id number] ####[facility] [address] [place], [address] Potassium [Moles/Vol] 3.6 mmol/L Normal 3.3-5.1 [facility] Comment on above: Performed By: #### L 500.4050, L100.0100, L501.2300, [id number] ####[facility] [address] [place], [address] Sodium [Moles/Vol] 138 mmol/L Normal 133-145 [facility] Comment on above: Performed By: #### L 500.4050, L100.0100, L501.2300, [id number] ####[facility] [address] [place], [address] T PROT 6.1 g/dL Normal 5.9-8.4 [facility] Comment on above: Performed By: #### L 500.4050, L100.0100, L501.2300, [id number] ####[facility] [address] [place], [address] Urea nitrogen [Mass/Vol] 24 mg/dL High 4-19 [facility] Comment on above: Performed By: #### L 500.4050, L100.0100, L501.2300, [id number] ####[facility] [address] [place], [address] Eosinophil percentageOrdered By: Jaquan Hong on 04-17-2025 Eosinophils/100 WBC (Bld) 9.8 % High 0-5 [facility] Comment on above: Performed By: #### L 500.4050, L100.0100, L501.2300, [id number] ####[facility] [address] [place], [address] Erythrocyte distribution wid th ratioOrdered By: Jaquan Hong on 04-17-2025 Erythrocyte distribution width (RBC) [Ratio] 12.7 % Normal 11.6-14.6 [facility] Comment on above: Performed By: #### L 500.4050, L100.0100, L501.2300, L501.9520 ####[facility] [address] [place], [address] Erythrocyte distribution wid th standard deviationOrdered By: Jaquan Hong on 04-17-2025 Erythrocyte distribution width (RBC) [Ratio] 41.7 fl 35.1-43.9 [facility] Glomerular filtration rate ( GFR) estimation/1.73 sq m using serum, plasma, or whole bOrdered By: Jaquan Hong on 04-17-2025 GFR/1.73 sq M.predicted among non-blacks MDRD (S/P/Bld) [Vol rate/Area] 112 mL/min/{1.73_m2} >60 [facility] Comment on above: mL/min/1.73m2 CKD-EP I Creatinine Equation (2020) Hemoglobin measurementOrdere d By: Jaquan Hong on 04-17-2025 Hemoglobin (Bld) [Mass/Vol] 11.4 g/dL Low 13.0-16.5 [facility] Comment on above: Performed By: #### L 500.4050, L100.0100, L501.2300, L501.9520 ####[facility] [address] [place], [place], [id number] Immature granulocytes/100 WB C Auto (Bld)Ordered By: Jaquan Hong on 04-17-2025 Immature granulocytes/100 WBC (Bld) 0.400 % 0.0-0.9 [facility] Comment on above: IG% - Immature Granu locytes (promyelocytes, myelocytes and metamyelocytes) > 1% indicates that a LEFT SHIFT is Present. Ketones Test strip Ql (U)Ord ered By: Jaquan Hong on 04-17-2025 Ketones Ql (U) 5 mg/dl High Negative [facility] Laboratory - Chemistry and C hemistry - challengeOrdered By: Jaquan Hong on 04-17-2025 AST [Catalytic activity/Vol] 35 U/L <38 [facility] MCV (mean corpuscular volume ) determinationOrdered By: Jaquan Hong on 04-17-2025 MCV (RBC) [Entitic vol] 89.7 fL Normal 80-94 [facility] Comment on above: Performed By: #### L 500.4050, L100.0100, L501.2300, L501.9520 ####[facility] [address] [place], [place], [id number] Mean corpuscular hemoglobin (MCH) determinationOrdered By: Jaquan Hong on 04-17-2025 MCH (RBC) [Entitic mass] 31.0 pg Normal 27.0-32.0 [facility] Comment on above: Performed By: #### L 500.4050, L100.0100, L501.2300, L501.9520 ####[facility] [address] [place], [address] Mean corpuscular hemoglobin concentration (MCHC) determinationOrdered By: Jaquan Hong on 04-17-2025 MCHC (RBC) [Mass/Vol] 34.5 g/dL Normal 32-36 [facility] Comment on above: Performed By: #### L 500.4050, L100.0100, L501.2300, L501.9520 ####[facility] [address] [place], [place], [id number] Mean platelet volume determi nationOrdered By: Jaquan Hong on 04-17-2025 Platelet mean volume (Bld) [Entitic vol] 9.4 fL Normal 6.2-12.0 [facility] Comment on above: Performed By: #### L 500.4050, L100.0100, L501.2300, L501.9520 ####[facility] [address] [place], [address] Microscopic analysis of urin e for red blood cells (RBC)Ordered By: Jaquan Hong on 04-17-2025 Microscopic analysis of urine for red blood cells (RBC) 0 SEEN /hpf 0-5 [facility] Monocyte percentageOrdered B y: Jaquan Hong on 04-17-2025 Monocytes/100 WBC (Bld) 9.0 % Normal 0-10 [facility] Comment on above: Performed By: #### L 500.4050, L100.0100, L501.2300, L501.9520 ####[facility] [address] [place], [address] Mucus LM Ql (Urine sed)Order ed By: Jaquan Hong on 04-17-2025 Mucus Ql (Urine sed) 1+ /hpf [facility] Neutrophil percentageOrdered By: Jaquan Hong on 04-17-2025 Neutrophils/100 WBC (Bld) 52.3 % Normal 47-70 [facility] Comment on above: Performed By: #### L 500.4050, L100.0100, L501.2300, L501.9520 ####[facility] [address] [place], [address] Nitrite Test strip Ql (U)Ord ered By: Jaquan Hong on 04-17-2025 Nitrite Ql (U) Negative Negative [facility] No Panel InformationOrdered By: Jaquan Hong on 04-17-2025 Urine Buprenorphine Qualitative Negative < 200 ng/mL [facility] Urine Oxycodone Screen Negative < 100 ng/mL [facility] Nucleated red blood cell per centageOrdered By: Jaquan Hong on 04-17-2025 Nucleated RBC/100 WBC (Bld) [Ratio] 0 % 0-5 [facility] Phosphoruson 04-17-2025 Phosphate [Mass/Vol] 4.5 mg/dL Normal 2.7-4.5 [facility] Comment on above: Performed By: #### L 500.4050, L100.0100, L501.2300, L501.9520 ####[facility] [address] [place], [address] Platelet countOrdered By: Coy Hong on 04-17-2025 Platelets (Bld) [#/Vol] 241 10*3/uL Normal 150-450 [facility] Comment on above: Performed By: #### L 500.4050, L100.0100, L501.2300, L501.9520 ####[facility] [address] [place], [address] Potassium measurement (mass/ volume)Ordered By: Jaquan Hong on 04-17-2025 Potassium (Unsp spec) [Mass/Vol] 3.6 mmol/L 3.3-5.1 [facility] Protein Test strip Ql (U)Ord ered By: Jaquan Hong on 04-17-2025 Protein Ql (U) 30 mg/dl High Negative [facility] Quantitative urine opiates m easurementOrdered By: Jaquan Hong on 04-17-2025 Opiates Ql (U) Negative < 300 ng/mL [facility] Screening urine fentanyl luisito surementOrdered By: Jaquan Hong on 04-17-2025 fentaNYL Screen Ql (U) Negative [facility] Serum creatinine measurement (mass/volume)Ordered By: Jaquan Hong on 04-17-2025 Creatinine [Mass/Vol] 0.71 mg/dL 0.70-1.20 [facility] Serum globulin measurementOr dered By: Jaquan Hong on 04-17-2025 Globulin (S) [Mass/Vol] 2.4 g/dL 2.2-4.2 [facility] Serum glucose measurement (m ass/volume)Ordered By: Jaquan Hong on 04-17-2025 Glucose [Mass/Vol] 92 mg/dL 70-99 [facility] Serum or plasma alanine love otransferase (ALT) measurementOrdered By: Jaquan Hong on 04-17-2025 ALT [Catalytic activity/Vol] 44 U/L <47 [facility] Serum or plasma albumin micah urement (mass/volume)Ordered By: Jaquan Hong on 04-17-2025 Albumin [Mass/Vol] 3.6 g/dL 3.5-5.0 [facility] Serum or plasma albumin/glob ulin mass ratioOrdered By: Jaquan Hong on 04-17-2025 Albumin/Globulin [Mass ratio] 1.5 {ratio} 0.9-2.4 [facility] Serum or plasma alkaline jd sphatase measurementOrdered By: Jaquan Hong on 04-17-2025 ALP [Catalytic activity/Vol] 46 U/L 40-129 [facility] Serum or plasma calcium micah urement (mass/volume)Ordered By: Jaquan Hong on 04-17-2025 Calcium [Mass/Vol] 8.9 mg/dL 7.6-11.0 [facility] Serum or plasma urea nitroge n measurement (mass/volume)Ordered By: Jaquan Hong on 04-17-2025 Urea nitrogen [Mass/Vol] 24 mg/dL High 4-19 [facility] Sodium levelOrdered By: Sung Hong on 04-17-2025 Sodium [Moles/Vol] 138 mmol/L 133-145 [facility] Squamous epithelial cells de tection in urine sediment by light microscopyOrdered By: Jaquan Hong on 04-17-2025 Epithelial cells.squamous LM Ql (Urine sed) 0 SEEN /hpf 0-5 [facility] TSH DL <= 0.005 mIU/L QnOrde red By: Jaquan Hong on 04-17-2025 TSH Qn 0.819 uIU/mL 0.300-4.200 [facility] Thyroid Stim Hormone (TSH)on 04-17-2025 TSH 0.819 uIU/mL Normal 0.300-4.200 [facility] Comment on above: Performed By: #### L 500.4050, L100.0100, L501.2300, L501.9520 ####[facility] [address] [facility] [id number] Total proteinOrdered By: Mehul Hong on 04-17-2025 Protein [Mass/Vol] 6.1 g/dL 5.9-8.4 [facility] Urinalysis, Completeon 04-17 Mucus Ql (Urine sed) 1+ /hpf Normal [facility] Comment on above: Order Comment: CLEAN CATCH Performed By: #### L 400.0001 ####[facility] [address] [place], [address] BACTERIA 0 SEEN Normal None Seen [facility] Comment on above: Order Comment: CLEAN CATCH Performed By: #### L 400.0001 ####[facility] [address] [place], [address] EPI,SQUAMOUS 0 SEEN Normal 0-5 [facility] Comment on above: Order Comment: CLEAN CATCH Performed By: #### L 400.0001 ####[facility] [address] [place], [address] RBC 0 SEEN Normal 0-5 [facility] Comment on above: Order Comment: CLEAN CATCH Performed By: #### L 400.0001 ####[facility] [address] [facility] [address] WBC 0 SEEN Normal 0-5 [facility] Comment on above: Order Comment: CLEAN CATCH Performed By: #### L 400.0001 ####[facility] [address] [place] [address] Urine Drug Screen (VISTA)on 04-17-2025 AMPHETAMINES Positive Normal <1000 ng/mL [facility] Comment on above: Result Comment: If c onfirmation testing is needed, a separate order will berequired to send out testing to the reference laboratory. Performed By: #### L 505.5000 ####[facility] [address] [place], [address] BARBITIURATES Positive Normal < 200 ng/mL [facility] Comment on above: Result Comment: If c onfirmation testing is needed, a separate order will berequired to send out testing to the reference laboratory. Performed By: #### L 505.5000 ####[facility] [address] [place] [address] BENZODIAZIPINE Negative Normal < 200 ng/mL [facility] Comment on above: Performed By: #### L 505.5000 ####[facility] [address] [place] [address] BUP Ur Drug Scr Negative Normal < 200 ng/mL [facility] Comment on above: Performed By: #### L 505.5000 ####[facility] [address] [place] [id number] COCAINE Negative Normal < 300 ng/mL [facility] Comment on above: Performed By: #### L 505.5000 ####[facility] [address] [place] [address] Fentanyl Negative Normal [facility] Comment on above: Performed By: #### L 505.5000 ####[facility] [address] [place] [address] METHADONE Negative Normal < 300 ng/mL [facility] Comment on above: Performed By: #### L 505.5000 ####[facility] [address] [place] [address] OPIATES Negative Normal < 300 ng/mL [facility] Comment on above: Performed By: #### L 505.5000 ####[facility] [address] [place] [address] OXYCODONE Negative Normal < 100 ng/mL [facility] Comment on above: Performed By: #### L 505.5000 ####[facility] [address] [place] [address] PCP Negative Normal < 25 ng/mL [facility] Comment on above: Performed By: #### L 505.5000 ####[facility] [address] [place] [address] THC Positive Normal < 50 ng/mL [facility] Comment on above: Result Comment: If c onfirmation testing is needed, a separate order will berequired to send out testing to the reference laboratory. Performed By: #### L 505.5000 ####[facility] [address] [place] [address] Urine benzodiazepine levelOr dered By: Jaquan Hong on 04-17-2025 Benzodiazepines Ql (U) Negative < 200 ng/mL [facility] Urine clarityOrdered By: Mehul Hong on 04-17-2025 Clarity (U) Clear Clear [facility] Urine cocaine levelOrdered B y: Jaquan Hong on 04-17-2025 Cocaine Ql (U) Negative < 300 ng/mL [facility] Urine color determinationOrd ered By: Jaquan Hong on 04-17-2025 Color (U) Yellow Yellow [facility] Urine fqhiy-0-nyektgdzruddnb abinol (THC) measurementOrdered By: Jaquan Hong on 04-17-2025 Cannabinoids Screen Ql (U) Positive < 50 ng/mL [facility] Comment on above: If confirmation test ing is needed, a separate order will be required to send out testing to the reference laboratory. Urine glucose detectionOrder ed By: Jaquan Hong on 04-17-2025 Glucose Ql (U) Normal mg/dl Normal [facility] Urine leukocyte esterase det ection by dipstickOrdered By: Jaquan Hong on 04-17-2025 Leukocyte esterase Test strip Ql (U) Negative Negative [facility] Urine pHOrdered By: Jaquan moran on 04-17-2025 pH (U) 6.0 [pH] 5.0 - 8.0 [facility] Urine phencyclidine (PCP) de tectionOrdered By: Jaquan Hong on 04-17-2025 Phencyclidine Ql (U) Negative < 25 ng/mL [facility] Urine sediment bacteria coun t by microscopy (number/high power field)Ordered By: Jaquan Hong on 04-17-2025 Bacteria LM.HPF (Urine sed) [#/Area] 0 /[HPF] None Seen [facility] Urine specific gravity measu rementOrdered By: Jaquan Hong on 04-17-2025 Specific gravity (U) [Rel density] 1.025 1.002-1.030 [facility] Urine urobilinogen measureme ntOrdered By: Jaquan Hong on 04-17-2025 Urobilinogen Ql (U) 1 mg/dl High Normal [facility] White blood cell (WBC) count Ordered By: Jaquan Hong on 04-17-2025 WBC (Bld) [#/Vol] 5.1 10*3/uL Normal 4.4-11.0 [facility] Comment on above: Performed By: #### L 500.4050, L100.0100, L501.2300, L501.9520 ####[facility] [address] [place], [place], [address] White blood cell countOrdere d By: Jaquan Hong on 04-17-2025 White blood cell count 0 SEEN /hpf 0-5 [facility] Absolute lymphocyte countOrd ered By: Twan Garcia on 04-16-2025 Lymphocytes Auto (Unsp spec) [#/Vol] 1.46 10*3/uL 0.83-4.51 [facility] Absolute neutrophil countOrd ered By: Twan Garcia on 04-16-2025 Neutrophils (Bld) [#/Vol] 5.6 10*3/uL 2.0-7.7 [facility] Alcohol, Blood (Medical)-Ser umon 04-16-2025 SERUM ETOH < 10.1 Normal <=10.0 [facility] Comment on above: Result Comment: This test is for medical purposes only. The legaldefinition of intoxication varies according to local law. Performed By: #### L 501.9100, L500.4050, L505.5000, L100.0100 ####[facility] [address] [place], [place], [address] Anion gap in Serum or Plasma Ordered By: Twan Garcia on 04-16-2025 Anion gap [Moles/Vol] 12 mmol/L 5-15 [facility] Automated lymphocyte count a s percentage of total leukocytesOrdered By: Twan Garcia on 04-16-2025 Lymphocytes/100 WBC Auto (Unsp spec) 18.5 % Low 19-41 [facility] BUN/creatinine ratioOrdered By: Twan Garcia on 04-16-2025 Urea nitrogen/Creatinine [Mass ratio] 22.4 mg/mg High 10-20 [facility] Basophil percentageOrdered B y: Twan Garcia on 04-16-2025 Basophils/100 WBC (Bld) 0.8 % 0-1 [facility] Bilirubin, totalOrdered By: Twan Garcia on 04-16-2025 Bilirubin [Mass/Vol] 0.54 mg/dL 0.00-1.30 [facility] CBC W/Diff, Automatedon 04-01 Absolute Lymph 1.46 X10 3/uL Normal 0.83-4.51 [facility] Comment on above: Performed By: #### L 501.9100, L500.4050, L505.5000, L100.0100 ####[facility] [address] [place], [address] Absolute Neut 5.6 X10 3/uL Normal 2.0-7.7 [facility] Comment on above: Performed By: #### L 501.9100, L500.4050, L505.5000, L100.0100 ####[facility] [address] [place], [address] Basophils/100 WBC (Bld) 0.8 % Normal 0-1 [facility] Comment on above: Performed By: #### L 501.9100, L500.4050, L505.5000, L100.0100 ####[facility] [address] [place], [address] Eosinophils/100 WBC (Bld) 3.3 % Normal 0-5 [facility] Comment on above: Performed By: #### L 501.9100, L500.4050, L505.5000, L100.0100 ####[facility] [address] [place], [address] Erythrocyte distribution width (RBC) [Ratio] 12.6 % Normal 11.6-14.6 [facility] Comment on above: Performed By: #### L 501.9100, L500.4050, L505.5000, L100.0100 ####[facility] [address] [place], [address] Hematocrit (Bld) [Volume fraction] 40.0 % Normal 40-54 [facility] Comment on above: Performed By: #### L 501.9100, L500.4050, L505.5000, L100.0100 ####[facility] [address] [place], [address] Hemoglobin (Bld) [Mass/Vol] 13.6 g/dL Normal 13.0-16.5 [facility] Comment on above: Performed By: #### L 501.9100, L500.4050, L505.5000, L100.0100 ####[facility] [address] [place], [address] IG% 0.300 Normal 0.0-0.9 [facility] Comment on above: Result Comment: IG% - Immature Granulocytes (promyelocytes, myelocytes andmetamyelocytes) > 1% indicates that a LEFT SHIFT is Present. Performed By: #### L 501.9100, L500.4050, L505.5000, L100.0100 ####[facility] [address] [place], [address] Lymphocytes/100 WBC (Bld) 18.5 % Low 19-41 [facility] Comment on above: Performed By: #### L 501.9100, L500.4050, L505.5000, L100.0100 ####[facility] [address] [place], [address] MCH (RBC) [Entitic mass] 30.7 pg Normal 27.0-32.0 [facility] Comment on above: Performed By: #### L 501.9100, L500.4050, L505.5000, L100.0100 ####[facility] [address] [place], [address] MCHC (RBC) [Mass/Vol] 34.0 g/dL Normal 32-36 [facility] Comment on above: Performed By: #### L 501.9100, L500.4050, L505.5000, L100.0100 ####[facility] [address] [place], [address] MCV (RBC) [Entitic vol] 90.3 fL Normal 80-94 [facility] Comment on above: Performed By: #### L 501.9100, L500.4050, L505.5000, L100.0100 ####[facility] [address] [place], [address] Monocytes/100 WBC (Bld) 6.1 % Normal 0-10 [facility] Comment on above: Performed By: #### L 501.9100, L500.4050, L505.5000, L100.0100 ####[facility] [address] [place], [address] Neutrophils/100 WBC (Bld) 71.0 % High 47-70 [facility] Comment on above: Performed By: #### L 501.9100, L500.4050, L505.5000, L100.0100 ####[facility] [address] [place], [address] Nucleated RBC (Bld) [#/Vol] 0 10*3/uL Normal 0-5 [facility] Comment on above: Performed By: #### L 501.9100, L500.4050, L505.5000, L100.0100 ####[facility] [address] [place], [address] Platelet mean volume (Bld) [Entitic vol] 9.0 fL Normal 6.2-12.0 [facility] Comment on above: Performed By: #### L 501.9100, L500.4050, L505.5000, L100.0100 ####[facility] [address] [place], [address] Platelets (Bld) [#/Vol] 290 10*3/uL Normal 150-450 [facility] Comment on above: Performed By: #### L 501.9100, L500.4050, L505.5000, L100.0100 ####[facility] [address] [place], [address] RBC (Bld) [#/Vol] 4.43 10*6/uL Low 4.6-6.2 [facility] Comment on above: Performed By: #### L 501.9100, L500.4050, L505.5000, L100.0100 ####[facility] [address] [place], [address] RDW SD 41.8 fl Normal 35.1-43.9 [facility] Comment on above: Performed By: #### L 501.9100, L500.4050, L505.5000, L100.0100 ####[facility] [address] [place], [address] WBC (Bld) [#/Vol] 7.9 10*3/uL Normal 4.4-11.0 [facility] Comment on above: Performed By: #### L 501.9100, L500.4050, L505.5000, L100.0100 ####[facility] [address] [place], [address] Carbon dioxide, total [Moles /volume] in Central venous bloodOrdered By: Twan Garcia on 04-16-2025 CO2 [Moles/Vol] 26.4 mmol/L 21.0-32.0 [facility] Chloride assayOrdered By: Wicho Garcia on 04-16-2025 Chloride [Moles/Vol] 101 mmol/L 98-108 [facility] Comprehensive Metabolic Prof ilon 04-16-2025 Albumin [Mass/Vol] 4.5 g/dL Normal 3.5-5.0 [facility] Comment on above: Performed By: #### L 501.9100, L500.4050, L505.5000, L100.0100 ####[facility] [address] [place], [address] Albumin/Globulin [Mass ratio] 1.4 {ratio} Normal 0.9-2.4 [facility] Comment on above: Performed By: #### L 501.9100, L500.4050, L505.5000, L100.0100 ####[facility] [address] [place], [address] ALK PHOS 60 U/L Normal 40-129 [facility] Comment on above: Performed By: #### L 501.9100, L500.4050, L505.5000, L100.0100 ####[facility] [address] [place], [address] ALT [Catalytic activity/Vol] 61 U/L High <=46 [facility] Comment on above: Performed By: #### L 501.9100, L500.4050, L505.5000, L100.0100 ####[facility] [address] [place], [address] AST [Catalytic activity/Vol] 44 U/L High <=37 [facility] Comment on above: Performed By: #### L 501.9100, L500.4050, L505.5000, L100.0100 ####[facility] [address] [place], [address] Bilirubin [Mass/Vol] 0.54 mg/dL Normal 0.00-1.30 [facility] Comment on above: Performed By: #### L 501.9100, L500.4050, L505.5000, L100.0100 ####[facility] [address] [place], [address] BUN/CRE 22.4 RATIO High 10-20 [facility] Comment on above: Performed By: #### L 501.9100, L500.4050, L505.5000, L100.0100 ####[facility] [address] [place], [address] Calcium [Mass/Vol] 10.0 mg/dL Normal 7.6-11.0 [facility] Comment on above: Performed By: #### L 501.9100, L500.4050, L505.5000, L100.0100 ####[facility] [address] [place], [address] Chloride [Moles/Vol] 101 mmol/L Normal 98-108 [facility] Comment on above: Performed By: #### L 501.9100, L500.4050, L505.5000, L100.0100 ####[facility] [address] [place], [address] CO2 [Moles/Vol] 26.4 mmol/L Normal 21.0-32.0 [facility] Comment on above: Performed By: #### L 501.9100, L500.4050, L505.5000, L100.0100 ####[facility] [address] [place], [address] Creatinine [Mass/Vol] 0.97 mg/dL Normal 0.70-1.20 [facility] Comment on above: Performed By: #### L 501.9100, L500.4050, L505.5000, L100.0100 ####[facility] [address] [place], [address] ECRCL 72.81 ml/min Normal 50-250 [facility] Comment on above: Performed By: #### L 501.9100, L500.4050, L505.5000, L100.0100 ####[facility] [address] [place], [address] GAP 12 Normal 5-15 [facility] Comment on above: Performed By: #### L 501.9100, L500.4050, L505.5000, L100.0100 ####[facility] [address] [place], [address] GFR/1.73 sq M.predicted among non-blacks MDRD (S/P/Bld) [Vol rate/Area] 96 mL/min/{1.73_m2} Normal >60 [facility] Comment on above: Result Comment: mL/m in/1.73m2 CKD-EPI Creatinine Equation (2020) Performed By: #### L 501.9100, L500.4050, L505.5000, L100.0100 ####[facility] [address] [place], [address] Globulin (S) [Mass/Vol] 3.3 g/dL Normal 2.2-4.2 [facility] Comment on above: Performed By: #### L 501.9100, L500.4050, L505.5000, L100.0100 ####[facility] [address] [place], [address] Glucose [Mass/Vol] 104 mg/dL High 70-99 [facility] Comment on above: Performed By: #### L 501.9100, L500.4050, L505.5000, L100.0100 ####[facility] [address] [place], [address] Potassium [Moles/Vol] 4.3 mmol/L Normal 3.3-5.1 [facility] Comment on above: Performed By: #### L 501.9100, L500.4050, L505.5000, L100.0100 ####[facility] [address] [place], [address] Sodium [Moles/Vol] 140 mmol/L Normal 133-145 [facility] Comment on above: Performed By: #### L 501.9100, L500.4050, L505.5000, L100.0100 ####[facility] [address] [place], [address] T PROT 7.9 g/dL Normal 5.9-8.4 [facility] Comment on above: Performed By: #### L 501.9100, L500.4050, L505.5000, L100.0100 ####[facility] [address] [place], [address] Urea nitrogen [Mass/Vol] 22 mg/dL High 4-19 [facility] Comment on above: Performed By: #### L 501.9100, L500.4050, L505.5000, L100.0100 ####[facility] [address] [place], [address] Emergency Department Summary on 04-16-2025 Emergency Department Summary Normal [facility] Eosinophil percentageOrdered By: Twan Garcia on 04-16-2025 Eosinophils/100 WBC (Bld) 3.3 % 0-5 [facility] Erythrocyte distribution wid th ratioOrdered By: Twan Garcia on 04-16-2025 Erythrocyte distribution width (RBC) [Ratio] 12.6 % 11.6-14.6 [facility] Erythrocyte distribution wid th standard deviationOrdered By: Twan Garcia on 04-16-2025 Erythrocyte distribution width (RBC) [Ratio] 41.8 fl 35.1-43.9 [facility] Glomerular filtration rate ( GFR) estimation/1.73 sq m using serum, plasma, or whole bOrdered By: Twan Garcia on 04-16-2025 GFR/1.73 sq M.predicted among non-blacks MDRD (S/P/Bld) [Vol rate/Area] 96 mL/min/{1.73_m2} >60 [facility] Comment on above: mL/min/1.73m2 CKD-EP I Creatinine Equation (2020) H AND P Exam - [facility] 04-16-2025 H&P Exam - Hospitalist Normal [facility] Hematocrit Auto (Bld) [Volum e fraction]Ordered By: Twan Garcia on 04-16-2025 Hematocrit (Bld) [Volume fraction] 40.0 % 40-54 [facility] Hemoglobin measurementOrdere d By: Twan Garcia on 04-16-2025 Hemoglobin (Bld) [Mass/Vol] 13.6 g/dL 13.0-16.5 [facility] Immature granulocytes/100 WB C Auto (Bld)Ordered By: Twan Garcia on 04-16-2025 Immature granulocytes/100 WBC (Bld) 0.300 % 0.0-0.9 [facility] Comment on above: IG% - Immature Granu locytes (promyelocytes, myelocytes and metamyelocytes) > 1% indicates that a LEFT SHIFT is Present. Laboratory - Chemistry and C hemistry - challengeOrdered By: Twan Garcia on 04-16-2025 AST [Catalytic activity/Vol] 44 U/L High <38 [facility] MCV (mean corpuscular volume ) determinationOrdered By: Twan Garcia on 04-16-2025 MCV (RBC) [Entitic vol] 90.3 fL 80-94 [facility] Magnesiumon 04-16-2025 Magnesium [Mass/Vol] 2.0 mg/dL Normal 1.5-2.2 [facility] Comment on above: Performed By: #### L 501.5200 ####[facility] [address] [place], [address] Magnesium measurement (mass/ volume)Ordered By: Jaquan Hong on 04-16-2025 Magnesium (Unsp spec) [Mass/Vol] 2.0 mg/dL 1.5-2.2 [facility] Mean corpuscular hemoglobin (MCH) determinationOrdered By: Twan Garcia on 04-16-2025 MCH (RBC) [Entitic mass] 30.7 pg 27.0-32.0 [facility] Mean corpuscular hemoglobin concentration (MCHC) determinationOrdered By: Twan Garcia on 04-16-2025 MCHC (RBC) [Mass/Vol] 34.0 g/dL 32-36 [facility] Mean platelet volume determi nationOrdered By: Twan Garcia on 04-16-2025 Platelet mean volume (Bld) [Entitic vol] 9.0 fL 6.2-12.0 [facility] Monocyte percentageOrdered B y: Twan Garcia on 04-16-2025 Monocytes/100 WBC (Bld) 6.1 % 0-10 [facility] Neutrophil percentageOrdered By: Twan Garcia on 04-16-2025 Neutrophils/100 WBC (Bld) 71.0 % High 47-70 [facility] Nucleated red blood cell per centageOrdered By: Twan Garcia on 07-16-2025 Nucleated RBC/100 WBC (Bld) [Ratio] 0 % 0-5 [facility] Platelet countOrdered By: Wicho Garcia on 04-16-2025 Platelets (Bld) [#/Vol] 290 10*3/uL 150-450 [facility] Potassium measurement (mass/ volume)Ordered By: Twan Garcia on 04-16-2025 Potassium (Unsp spec) [Mass/Vol] 4.3 mmol/L 3.3-5.1 [facility] RBC Auto (Bld) [#/Vol]Ordere d By: Twan Garcia on 04-16-2025 RBC (Bld) [#/Vol] 4.43 10*6/uL Low 4.6-6.2 [facility] Serum creatinine measurement (mass/volume)Ordered By: Twan Garcia on 04-16-2025 Creatinine [Mass/Vol] 0.97 mg/dL 0.70-1.20 [facility] Serum globulin measurementOr dered By: Twan Garcia on 04-16-2025 Globulin (S) [Mass/Vol] 3.3 g/dL 2.2-4.2 [facility] Serum glucose measurement (m ass/volume)Ordered By: Twan Garcia on 04-16-2025 Glucose [Mass/Vol] 104 mg/dL High 70-99 [facility] Serum or plasma alanine love otransferase (ALT) measurementOrdered By: Twan Garcia on 04-16-2025 ALT [Catalytic activity/Vol] 61 U/L High <47 [facility] Serum or plasma albumin micah urement (mass/volume)Ordered By: Twan Garcia on 04-16-2025 Albumin [Mass/Vol] 4.5 g/dL 3.5-5.0 [facility] Serum or plasma albumin/glob ulin mass ratioOrdered By: Twan Garcia on 04-16-2025 Albumin/Globulin [Mass ratio] 1.4 {ratio} 0.9-2.4 [facility] Serum or plasma alkaline jd sphatase measurementOrdered By: Twan Garcia on 04-16-2025 ALP [Catalytic activity/Vol] 60 U/L 40-129 [facility] Serum or plasma calcium micah urement (mass/volume)Ordered By: Twan Garcia on 04-16-2025 Calcium [Mass/Vol] 10.0 mg/dL 7.6-11.0 [facility] Serum or plasma ethanol micah urement (mass/volume)Ordered By: Twan Garcia on 04-16-2025 Ethanol [Mass/Vol] mg/dL <10.1 [facility] Comment on above: This test is for med ical purposes only. The legal definition of intoxication varies according to local law. Serum or plasma urea nitroge n measurement (mass/volume)Ordered By: Twan Garcia on 04-16-2025 Urea nitrogen [Mass/Vol] 22 mg/dL High 4-19 [facility] Sodium levelOrdered By: Twan Garcia on 04-16-2025 Sodium [Moles/Vol] 140 mmol/L 133-145 [facility] Total proteinOrdered By: Marcellus Garcia on 04-16-2025 Protein [Mass/Vol] 7.9 g/dL 5.9-8.4 [facility] Urine Drug Screen (VISTA)on 04-16-2025 AMPHETAMINES Normal <1000 ng/mL [facility] Comment on above: Result Comment: Norm elled via OM: Order edited - Discontinuing original order Performed By: #### L 501.9100, L500.4050, L505.5000, L100.0100 ####[facility] [address] [place], [address] BARBITIURATES Normal < 200 ng/mL [facility] Comment on above: Result Comment: Alvinoc elled via OM: Order edited - Discontinuing original order Performed By: #### L 501.9100, L500.4050, L505.5000, L100.0100 ####[facility] [address] [place], [address] BENZODIAZIPINE Normal < 200 ng/mL [facility] Comment on above: Result Comment: Canc elled via OM: Order edited - Discontinuing original order Performed By: #### L 501.9100, L500.4050, L505.5000, L100.0100 ####[facility] [address] [place], [address] BUP Ur Drug Scr Normal < 200 ng/mL [facility] Comment on above: Result Comment: Canc elled via OM: Order edited - Discontinuing original order Performed By: #### L 501.9100, L500.4050, L505.5000, L100.0100 ####[facility] [address] [place], [address] COCAINE Normal < 300 ng/mL [facility] Comment on above: Result Comment: Canc elled via OM: Order edited - Discontinuing original order Performed By: #### L 501.9100, L500.4050, L505.5000, L100.0100 ####[facility] [address] [place], [address] Fentanyl Normal [facility] Comment on above: Result Comment: Canc elled via OM: Order edited - Discontinuing original order Performed By: #### L 501.9100, L500.4050, L505.5000, L100.0100 ####[facility] [address] [place], [address] METHADONE Normal < 300 ng/mL [facility] Comment on above: Result Comment: Canc elled via OM: Order edited - Discontinuing original order Performed By: #### L 501.9100, L500.4050, L505.5000, L100.0100 ####[facility] [address] [place], [address] OPIATES Normal < 300 ng/mL [facility] Comment on above: Result Comment: Canc elled via OM: Order edited - Discontinuing original order Performed By: #### L 501.9100, L500.4050, L505.5000, L100.0100 ####[facility] [address] [place], [address] OXYCODONE Normal < 100 ng/mL [facility] Comment on above: Result Comment: Canc elled via OM: Order edited - Discontinuing original order Performed By: #### L 501.9100, L500.4050, L505.5000, L100.0100 ####[facility] [address] [place], [address] PCP Normal < 25 ng/mL [facility] Comment on above: Result Comment: Norm cabral via OM: Order edited - Discontinuing original order Performed By: #### L 501.9100, L500.4050, L505.5000, L100.0100 ####[facility] [address] [place], [address] THC Normal < 50 ng/mL [facility] Comment on above: Result Comment: Norm cabral via OM: Order edited - Discontinuing original order Performed By: #### L 501.9100, L500.4050, L505.5000, L100.0100 ####[facility] [address] [place], [address] White blood cell (WBC) count Ordered By: Twan Garcia on 04-16-2025 WBC (Bld) [#/Vol] 7.9 10*3/uL 4.4-11.0 [facility] Emergency Department Summary on 03-30-2025 Emergency Department Summary Normal [facility] 12 Lead EKGon 03-29-2025 12 Lead EKG Normal [facility] 12 Lead EKG Normal [facility] Absolute lymphocyte countOrd ered By: Sebastian Braswell on 03-29-2025 Lymphocytes Auto (Unsp spec) [#/Vol] 2.05 10*3/uL 0.83-4.51 [facility] Absolute neutrophil countOrd ered By: Sebastian Braswell on 03-29-2025 Neutrophils (Bld) [#/Vol] 4.2 10*3/uL 2.0-7.7 [facility] Anion gap in Serum or Plasma Ordered By: Sebastian Braswell on 03-29-2025 Anion gap [Moles/Vol] 17 mmol/L High 5-15 [facility] Automated lymphocyte count a s percentage of total leukocytesOrdered By: Sebastian Braswell on 03-29-2025 Lymphocytes/100 WBC Auto (Unsp spec) 28.8 % 19-41 [facility] BUN/creatinine ratioOrdered By: Sebastian Braswell on 03-29-2025 Urea nitrogen/Creatinine [Mass ratio] 23.3 mg/mg High 10-20 [facility] Basophil percentageOrdered B y: Sebastian Braswell on 03-29-2025 Basophils/100 WBC (Bld) 0.8 % 0-1 [facility] Bilirubin, totalOrdered By: Sebastian Braswell on 03-29-2025 Bilirubin [Mass/Vol] 0.46 mg/dL 0.00-1.30 [facility] CBC W/Diff, Automatedon 03-03 Absolute Lymph 2.05 X10 3/uL Normal 0.83-4.51 [facility] Comment on above: Performed By: #### L 500.4050, L100.0100, L501.2450 ####[facility] [address] [place], [address] Absolute Neut 4.2 X10 3/uL Normal 2.0-7.7 [facility] Comment on above: Performed By: #### L 500.4050, L100.0100, L501.2450 ####[facility] [address] [place], [address] Basophils/100 WBC (Bld) 0.8 % Normal 0-1 [facility] Comment on above: Performed By: #### L 500.4050, L100.0100, L501.2450 ####[facility] [address] [place], [address] Eosinophils/100 WBC (Bld) 3.8 % Normal 0-5 [facility] Comment on above: Performed By: #### L 500.4050, L100.0100, L501.2450 ####[facility] [address] [place], [address] Erythrocyte distribution width (RBC) [Ratio] 12.7 % Normal 11.6-14.6 [facility] Comment on above: Performed By: #### L 500.4050, L100.0100, L501.2450 ####[facility] [address] [place], [address] Hematocrit (Bld) [Volume fraction] 38.9 % Low 40-54 [facility] Comment on above: Performed By: #### L 500.4050, L100.0100, L501.2450 ####[facility] [address] [place], [address] Hemoglobin (Bld) [Mass/Vol] 13.0 g/dL Normal 13.0-16.5 [facility] Comment on above: Performed By: #### L 500.4050, L100.0100, L501.2450 ####[facility] [address] [place], [address] IG% 0.300 Normal 0.0-0.9 [facility] Comment on above: Result Comment: IG% - Immature Granulocytes (promyelocytes, myelocytes andmetamyelocytes) > 1% indicates that a LEFT SHIFT is Present. Performed By: #### L 500.4050, L100.0100, L5.2450 ####[facility] [address] [place], [address] Lymphocytes/100 WBC (Bld) 28.8 % Normal 19-41 [facility] Comment on above: Performed By: #### L 500.4050, L100.0100, L501.2450 ####[facility] [address] [place], [address] MCH (RBC) [Entitic mass] 31.0 pg Normal 27.0-32.0 [facility] Comment on above: Performed By: #### L 500.4050, L100.0100, L501.2450 ####[facility] [address] [place], [address] MCHC (RBC) [Mass/Vol] 33.4 g/dL Normal 32-36 [facility] Comment on above: Performed By: #### L 500.4050, L100.0100, L501.2450 ####[facility] [address] [place], [address] MCV (RBC) [Entitic vol] 92.8 fL Normal 80-94 [facility] Comment on above: Performed By: #### L 500.4050, L100.0100, L501.2450 ####[facility] [address] [place], [address] Monocytes/100 WBC (Bld) 7.3 % Normal 0-10 [facility] Comment on above: Performed By: #### L 500.4050, L100.0100, L501.2450 ####[facility] [address] [place], [address] Neutrophils/100 WBC (Bld) 59.0 % Normal 47-70 [facility] Comment on above: Performed By: #### L 500.4050, L100.0100, L501.2450 ####[facility] [address] [place], [address] Nucleated RBC (Bld) [#/Vol] 0 10*3/uL Normal 0-5 [facility] Comment on above: Performed By: #### L 500.4050, L100.0100, L501.2450 ####[facility] [address] [place], [address] Platelet mean volume (Bld) [Entitic vol] 9.5 fL Normal 6.2-12.0 [facility] Comment on above: Performed By: #### L 500.4050, L100.0100, L501.2450 ####[facility] [address] [place], [address] Platelets (Bld) [#/Vol] 338 10*3/uL Normal 150-450 [facility] Comment on above: Performed By: #### L 500.4050, L100.0100, L501.2450 ####[facility] [address] [place], [address] RBC (Bld) [#/Vol] 4.19 10*6/uL Low 4.6-6.2 [facility] Comment on above: Performed By: #### L 500.4050, L100.0100, L501.2450 ####[facility] [address] [place], [address] RDW SD 43.4 fl Normal 35.1-43.9 [facility] Comment on above: Performed By: #### L 500.4050, L100.0100, L501.2450 ####[facility] [address] [place], [address] WBC (Bld) [#/Vol] 7.1 10*3/uL Normal 4.4-11.0 [facility] Comment on above: Performed By: #### L 500.4050, L100.0100, L501.2450 ####[facility] [address] [place], [address] Absolute Neut Normal 2.0-7.7 [facility] Comment on above: Result Comment: Canc elled via OM: Wrong Patient Performed By: #### L 500.4050, L100.0100 ####[facility] [address] [place], [address] HCT Normal 40-54 [facility] Comment on above: Result Comment: Canc elled via OM: Wrong Patient Performed By: #### L 500.4050, L100.0100 ####[facility] [address] [place], [address] HGB Normal 13.0-16.5 [facility] Comment on above: Result Comment: Canc elled via OM: Wrong Patient Performed By: #### L 500.4050, L100.0100 ####[facility] [address] [place], [address] MCH Normal 27.0-32.0 [facility] Comment on above: Result Comment: Canc elled via OM: Wrong Patient Performed By: #### L 500.4050, L100.0100 ####[facility] [address] [place], [address] MCHC Normal 32-36 [facility] Comment on above: Result Comment: Canc elled via OM: Wrong Patient Performed By: #### L 500.4050, L100.0100 ####[facility] [address] [place], [address] MCV Normal 80-94 [facility] Comment on above: Result Comment: Canc elled via OM: Wrong Patient Performed By: #### L 500.4050, L100.0100 ####[facility] [address] [place], [address] NEUT% Normal 47-70 [facility] Comment on above: Result Comment: Canc elled via OM: Wrong Patient Performed By: #### L 500.4050, L100.0100 ####[facility] [address] [place], [address] PLT Normal 150-450 [facility] Comment on above: Result Comment: Canc elled via OM: Wrong Patient Performed By: #### L 500.4050, L100.0100 ####[facility] [address] [place], [address] RBC Normal 4.6-6.2 [facility] Comment on above: Result Comment: Canc elled via OM: Wrong Patient Performed By: #### L 500.4050, L100.0100 ####[facility] [address] [place], [address] RDW CV Normal 11.6-14.6 [facility] Comment on above: Result Comment: Canc elled via OM: Wrong Patient Performed By: #### L 500.4050, L100.0100 ####[facility] [address] [place], [address] RDW SD Normal 35.1-43.9 [facility] Comment on above: Result Comment: Canc elled via OM: Wrong Patient Performed By: #### L 500.4050, L100.0100 ####[facility] [address] [place], [address] WBC Normal 4.4-11.0 [facility] Comment on above: Result Comment: Canc elled via OM: Wrong Patient Performed By: #### L 500.4050, L100.0100 ####[facility] [address] [place], [address] Carbon dioxide, total [Moles /volume] in Central venous bloodOrdered By: Sebastian Braswell on 03-29-2025 CO2 [Moles/Vol] 22.8 mmol/L 21.0-32.0 [facility] Chest PA and Lateralon 03-29 Chest PA and Lateral Normal [facility] Chloride assayOrdered By: Jesus Manuel Braswell on 03-29-2025 Chloride [Moles/Vol] 102 mmol/L 98-108 [facility] Comprehensive Metabolic Prof ilon 03-29-2025 Albumin [Mass/Vol] 4.4 g/dL Normal 3.5-5.0 [facility] Comment on above: Performed By: #### L 500.4050, L100.0100, L501.2450 ####[facility] [address] [place], [address] Albumin/Globulin [Mass ratio] 1.4 {ratio} Normal 0.9-2.4 [facility] Comment on above: Performed By: #### L 500.4050, L100.0100, L501.2450 ####[facility] [address] [place], [address] ALK PHOS 55 U/L Normal 40-129 [facility] Comment on above: Performed By: #### L 500.4050, L100.0100, L501.2450 ####[facility] [address] [place], [address] ALT [Catalytic activity/Vol] 86 U/L High <=46 [facility] Comment on above: Performed By: #### L 500.4050, L100.0100, L501.2450 ####[facility] [address] [place], [address] AST [Catalytic activity/Vol] 54 U/L High <=37 [facility] Comment on above: Performed By: #### L 500.4050, L100.0100, L501.2450 ####[facility] [address] [place], [address] Bilirubin [Mass/Vol] 0.46 mg/dL Normal 0.00-1.30 [facility] Comment on above: Performed By: #### L 500.4050, L100.0100, L501.2450 ####[facility] [address] [place], [address] BUN/CRE 23.3 RATIO High 10-20 [facility] Comment on above: Performed By: #### L 500.4050, L100.0100, L501.2450 ####[facility] [address] [place], [address] Calcium [Mass/Vol] 9.3 mg/dL Normal 7.6-11.0 [facility] Comment on above: Performed By: #### L 500.4050, L100.0100, L501.2450 ####[facility] [address] [place], [address] Chloride [Moles/Vol] 102 mmol/L Normal 98-108 [facility] Comment on above: Performed By: #### L 500.4050, L100.0100, L501.2450 ####[facility] [address] [place], [address] CO2 [Moles/Vol] 22.8 mmol/L Normal 21.0-32.0 [facility] Comment on above: Performed By: #### L 500.4050, L100.0100, L501.2450 ####[facility] [address] [place], [address] Creatinine [Mass/Vol] 1.01 mg/dL Normal 0.70-1.20 [facility] Comment on above: Performed By: #### L 500.4050, L100.0100, L501.2450 ####[facility] [address] [place], [address] ECRCL 79.84 ml/min Normal 50-250 [facility] Comment on above: Performed By: #### L 500.4050, L100.0100, L501.2450 ####[facility] [address] [place], [address] GAP 17 High 5-15 [facility] Comment on above: Performed By: #### L 500.4050, L100.0100, L501.2450 ####[facility] [address] [place], [address] GFR/1.73 sq M.predicted among non-blacks MDRD (S/P/Bld) [Vol rate/Area] 91 mL/min/{1.73_m2} Normal >60 [facility] Comment on above: Result Comment: mL/m in/1.73m2 CKD-EPI Creatinine Equation (2020) Performed By: #### L 500.4050, L100.0100, L501.2450 ####[facility] [address] [place], [address] Globulin (S) [Mass/Vol] 3.2 g/dL Normal 2.2-4.2 [facility] Comment on above: Performed By: #### L 500.4050, L100.0100, L501.2450 ####[facility] [address] [place], [address] Glucose [Mass/Vol] 244 mg/dL High 70-99 [facility] Comment on above: Performed By: #### L 500.4050, L100.0100, L501.2450 ####[facility] [address] [place], [address] Potassium [Moles/Vol] 3.5 mmol/L Normal 3.3-5.1 [facility] Comment on above: Performed By: #### L 500.4050, L100.0100, L501.2450 ####[facility] [address] [place], [address] Sodium [Moles/Vol] 141 mmol/L Normal 133-145 [facility] Comment on above: Performed By: #### L 500.4050, L100.0100, L501.2450 ####[facility] [address] [place], [address] T PROT 7.7 g/dL Normal 5.9-8.4 [facility] Comment on above: Performed By: #### L 500.4050, L100.0100, L501.2450 ####[facility] [address] [place], [address] Urea nitrogen [Mass/Vol] 24 mg/dL High 4-19 [facility] Comment on above: Performed By: #### L 500.4050, L100.0100, L501.2450 ####[facility] [address] [place], [address] ALB Normal 3.5-5.0 [facility] Comment on above: Result Comment: Canc elled via OM: Wrong Patient Performed By: #### L 500.4050, L100.0100 ####[facility] [address] [place], [address] ALK PHOS Normal 40-129 [facility] Comment on above: Result Comment: Canc elled via OM: Wrong Patient Performed By: #### L 500.4050, L100.0100 ####[facility] [address] [place], [address] ALT Normal <=46 [facility] Comment on above: Result Comment: Canc elled via OM: Wrong Patient Performed By: #### L 500.4050, L100.0100 ####[facility] [address] [place], [address] AST Normal <=37 [facility] Comment on above: Result Comment: Canc elled via OM: Wrong Patient Performed By: #### L 500.4050, L100.0100 ####[facility] [address] [place], [address] BUN Normal 4-19 [facility] Comment on above: Result Comment: Canc elled via OM: Wrong Patient Performed By: #### L 500.4050, L100.0100 ####[facility] [address] [place], [address] BUN/CRE Normal 10-20 [facility] Comment on above: Result Comment: Canc elled via OM: Wrong Patient Performed By: #### L 500.4050, L100.0100 ####[facility] [address] [place], [address] Calcium Normal 7.6-11.0 [facility] Comment on above: Result Comment: Canc elled via OM: Wrong Patient Performed By: #### L 500.4050, L100.0100 ####[facility] [address] [place], [address] CL Normal 98-108 [facility] Comment on above: Result Comment: Canc elled via OM: Wrong Patient Performed By: #### L 500.4050, L100.0100 ####[facility] [address] [place], [address] CO2 Normal 21.0-32.0 [facility] Comment on above: Result Comment: Canc elled via OM: Wrong Patient Performed By: #### L 500.4050, L100.0100 ####[facility] [address] [place], [address] CREAT,SERUM Normal 0.70-1.20 [facility] Comment on above: Result Comment: Canc elled via OM: Wrong Patient Performed By: #### L 500.4050, L100.0100 ####[facility] [address] [place], [address] eGFR Normal >60 [facility] Comment on above: Result Comment: Canc elled via OM: Wrong Patient Performed By: #### L 500.4050, L100.0100 ####[facility] [address] [place], [address] GAP Normal 5-15 [facility] Comment on above: Result Comment: Canc elled via OM: Wrong Patient Performed By: #### L 500.4050, L100.0100 ####[facility] [address] [place], [address] GLU Normal 70-99 [facility] Comment on above: Result Comment: Canc elled via OM: Wrong Patient Performed By: #### L 500.4050, L100.0100 ####[facility] [address] [place], [address] Potassium Normal 3.3-5.1 [facility] Comment on above: Result Comment: Canc elled via OM: Wrong Patient Performed By: #### L 500.4050, L100.0100 ####[facility] [address] [place], [address] T BILI Normal 0.00-1.30 [facility] Comment on above: Result Comment: Canc elled via OM: Wrong Patient Performed By: #### L 500.4050, L100.0100 ####[facility] [address] [place], [address] T PROT Normal 5.9-8.4 [facility] Comment on above: Result Comment: Canc elled via OM: Wrong Patient Performed By: #### L 500.4050, L100.0100 ####[facility] [address] [place], [address] Comprehensive Metabolic Profil Normal 133-145 [facility] Comment on above: Result Comment: Canc elled via OM: Wrong Patient Performed By: #### L 500.4050, L100.0100 ####[facility] [address] [place], [address] Emergency Department Summary on 03-29-2025 Emergency Department Summary Normal [facility] Eosinophil percentageOrdered By: Sebastian Braswell on 03-29-2025 Eosinophils/100 WBC (Bld) 3.8 % 0-5 [facility] Erythrocyte distribution wid th ratioOrdered By: Sebastian Braswell on 03-29-2025 Erythrocyte distribution width (RBC) [Ratio] 12.7 % 11.6-14.6 [facility] Erythrocyte distribution wid th standard deviationOrdered By: Sebastian Braswell on 03-29-2025 Erythrocyte distribution width (RBC) [Ratio] 43.4 fl 35.1-43.9 [facility] Glomerular filtration rate ( GFR) estimation/1.73 sq m using serum, plasma, or whole bOrdered By: Sebastian Braswell on 03-29-2025 GFR/1.73 sq M.predicted among non-blacks MDRD (S/P/Bld) [Vol rate/Area] 91 mL/min/{1.73_m2} >60 [facility] Comment on above: mL/min/1.73m2 CKD-EP I Creatinine Equation (2020) Hematocrit Auto (Bld) [Volum e fraction]Ordered By: Sebastian Braswell on 03-29-2025 Hematocrit (Bld) [Volume fraction] 38.9 % Low 40-54 [facility] Hemoglobin measurementOrdere d By: Sebastian Braswell on 03-29-2025 Hemoglobin (Bld) [Mass/Vol] 13.0 g/dL 13.0-16.5 [facility] Immature granulocytes/100 WB C Auto (Bld)Ordered By: Sebastian Braswell on 03-29-2025 Immature granulocytes/100 WBC (Bld) 0.300 % 0.0-0.9 [facility] Comment on above: IG% - Immature Granu locytes (promyelocytes, myelocytes and metamyelocytes) > 1% indicates that a LEFT SHIFT is Present. L499.0042on 03-29-2025 Trop T High Sen 7 ng/L Normal <=22 [facility] Comment on above: Performed By: #### L 499.0042 ####[facility] [address] [place], [place], [address] L499.0043on 03-29-2025 Trop T High Sen Normal <=22 [facility] Comment on above: Result Comment: SANTI ENT DISCHARGED Performed By: #### L 499.0043 ####[facility] [address] [place], [address] L501.4021on 03-29-2025 Trop T High Sen < 6 Normal <=22 [facility] Comment on above: Performed By: #### L 501.4021 ####[facility] [address] [place], [address] Laboratory - Chemistry and C hemistry - challengeOrdered By: Sebastian Braswell on 03-29-2025 AST [Catalytic activity/Vol] 54 U/L High <38 [facility] Lipaseon 03-29-2025 Lipase [Catalytic activity/Vol] 24 U/L Normal 13-75 [facility] Comment on above: Result Comment: Nahomi aparicio note:LIPASE revised reference range effective 23.New Lipase methodology. Expected to produce lower valuesthan the previous assay method.NEW Reference Range: 13 - 75 U/L Performed By: #### L 500.4050, L100.0100, L501.2450 ####[facility] [address] [place], [address] Lipase measurementOrdered By : Sebastian Braswell on 03-29-2025 Lipase [Catalytic activity/Vol] 24 U/L 13-75 [facility] Comment on above: Please note:LIPASE r evised reference range effective 23. New Lipase methodology. Expected to produce lower values than the previous assay method. NEW Reference Range: 13 - 75 U/L MCV (mean corpuscular volume ) determinationOrdered By: Sebastian Braswell on 03-29-2025 MCV (RBC) [Entitic vol] 92.8 fL 80-94 [facility] Mean corpuscular hemoglobin (MCH) determinationOrdered By: Sebastian Braswell on 03-29-2025 MCH (RBC) [Entitic mass] 31.0 pg 27.0-32.0 [facility] Mean corpuscular hemoglobin concentration (MCHC) determinationOrdered By: Sebastian Braswell on 03-29-2025 MCHC (RBC) [Mass/Vol] 33.4 g/dL 32-36 [facility] Mean platelet volume determi nationOrdered By: Sebastian Braswell on 03-29-2025 Platelet mean volume (Bld) [Entitic vol] 9.5 fL 6.2-12.0 [facility] Monocyte percentageOrdered B y: Sebastian Braswell on 03-29-2025 Monocytes/100 WBC (Bld) 7.3 % 0-10 [facility] Neutrophil percentageOrdered By: Sebastian Braswell on 03-29-2025 Neutrophils/100 WBC (Bld) 59.0 % 47-70 [facility] Nucleated red blood cell per centageOrdered By: Sebastian Braswell on 03-29-2025 Nucleated RBC/100 WBC (Bld) [Ratio] 0 % 0-5 [facility] Platelet countOrdered By: Jesus Manuel Braswell on 03-29-2025 Platelets (Bld) [#/Vol] 338 10*3/uL 150-450 [facility] Potassium measurement (mass/ volume)Ordered By: Sebastian Braswell on 03-29-2025 Potassium (Unsp spec) [Mass/Vol] 3.5 mmol/L 3.3-5.1 [facility] RBC Auto (Bld) [#/Vol]Ordere d By: Sebastian Braswell on 03-29-2025 RBC (Bld) [#/Vol] 4.19 10*6/uL Low 4.6-6.2 [facility] Serum creatinine measurement (mass/volume)Ordered By: Sebastian Braswell on 03-29-2025 Creatinine [Mass/Vol] 1.01 mg/dL 0.70-1.20 [facility] Serum globulin measurementOr dered By: Sebastian Braswell on 03-29-2025 Globulin (S) [Mass/Vol] 3.2 g/dL 2.2-4.2 [facility] Serum glucose measurement (m ass/volume)Ordered By: Sebastian Braswell on 03-29-2025 Glucose [Mass/Vol] 244 mg/dL High 70-99 [facility] Serum or plasma alanine love otransferase (ALT) measurementOrdered By: Sebastian Braswell on 03-29-2025 ALT [Catalytic activity/Vol] 86 U/L High <47 [facility] Serum or plasma albumin micah urement (mass/volume)Ordered By: Sebastian Braswell on 03-29-2025 Albumin [Mass/Vol] 4.4 g/dL 3.5-5.0 [facility] Serum or plasma albumin/glob ulin mass ratioOrdered By: Sebastian Braswell on 03-29-2025 Albumin/Globulin [Mass ratio] 1.4 {ratio} 0.9-2.4 [facility] Serum or plasma alkaline jd sphatase measurementOrdered By: Sebastian Braswell on 03-29-2025 ALP [Catalytic activity/Vol] 55 U/L 40-129 [facility] Serum or plasma calcium micah urement (mass/volume)Ordered By: Sebastian Braswell on 03-29-2025 Calcium [Mass/Vol] 9.3 mg/dL 7.6-11.0 [facility] Serum or plasma urea nitroge n measurement (mass/volume)Ordered By: Sebastian Braswell on 03-29-2025 Urea nitrogen [Mass/Vol] 24 mg/dL High 4-19 [facility] Sodium levelOrdered By: David Braswell on 03-29-2025 Sodium [Moles/Vol] 141 mmol/L 133-145 [facility] Total proteinOrdered By: Bhumika Braswell on 03-29-2025 Protein [Mass/Vol] 7.7 g/dL 5.9-8.4 [facility] Troponin T.cardiac [Mass/vol ume] in Serum or Plasma by High sensitivity methodOrdered By: Sebastian Braswell on 03-29-2025 Troponin T.cardiac High sensitivity method [Mass/Vol] 7 ng/L <22 [facility] Troponin T.cardiac High sensitivity method [Mass/Vol] < 6 ng/L <22 [facility] Urinalysis, Completeon 03-29 BACTERIA Normal None Seen [facility] Comment on above: Order Comment: CLEAN CATCH Result Comment: DEP FROM ED Performed By: #### L 400.0001 ####[facility] [address] [place] [id number] BILIRUBIN URINE Normal Negative [facility] Comment on above: Order Comment: CLEAN CATCH Result Comment: DEP FROM ED Performed By: #### L 400.0001 ####[facility] [address] [facility] [address] Clarity (U) Normal Clear [facility] Comment on above: Order Comment: CLEAN CATCH Result Comment: DEP FROM ED Performed By: #### L 400.0001 ####[facility] [address] [facility] [address] Color (U) Normal Yellow [facility] Comment on above: Order Comment: CLEAN CATCH Result Comment: DEP FROM ED Performed By: #### L 400.0001 ####[facility] [address] [place], [address] EPI,SQUAMOUS Normal 0-5 [facility] Comment on above: Order Comment: CLEAN CATCH Result Comment: DEP FROM ED Performed By: #### L 400.0001 ####[facility] [address] [place], [address] GLUCOSE, UR Normal Normal [facility] Comment on above: Order Comment: CLEAN CATCH Result Comment: DEP FROM ED Performed By: #### L 400.0001 ####[facility] [address] [place], [address] KETONE UR Normal Negative [facility] Comment on above: Order Comment: CLEAN CATCH Result Comment: DEP FROM ED Performed By: #### L 400.0001 ####[facility] [address] [place], [address] LEUK ESTERASE Normal Negative [facility] Comment on above: Order Comment: CLEAN CATCH Result Comment: DEP FROM ED Performed By: #### L 400.0001 ####[facility] [address] [place], [address] Mucus Ql (Urine sed) Normal [facility] Comment on above: Order Comment: CLEAN CATCH Result Comment: DEP FROM ED Performed By: #### L 400.0001 ####[facility] [address] [place], [address] Nitrite Ql (U) Normal Negative [facility] Comment on above: Order Comment: CLEAN CATCH Result Comment: DEP FROM ED Performed By: #### L 400.0001 ####[facility] [address] [place], [address] OCCULT BLOOD-UR Normal Negative [facility] Comment on above: Order Comment: CLEAN CATCH Result Comment: DEP FROM ED Performed By: #### L 400.0001 ####[facility] [address] [place], [address] pH UR Normal 5.0 - 8.0 [facility] Comment on above: Order Comment: CLEAN CATCH Result Comment: DEP FROM ED Performed By: #### L 400.0001 ####[facility] [address] [place], [address] PROT DIPSTX Normal Negative [facility] Comment on above: Order Comment: CLEAN CATCH Result Comment: DEP FROM ED Performed By: #### L 400.0001 ####[facility] [address] [place], [address] RBC Normal 0-5 [facility] Comment on above: Order Comment: CLEAN CATCH Result Comment: DEP FROM ED Performed By: #### L 400.0001 ####[facility] [address] [place], [address] SP.GR. DIPSTX Normal 1.002-1.030 [facility] Comment on above: Order Comment: CLEAN CATCH Result Comment: DEP FROM ED Performed By: #### L 400.0001 ####[facility] [address] [place], [address] UR Preservative Normal [facility] Comment on above: Order Comment: CLEAN CATCH Result Comment: DEP FROM ED Performed By: #### L 400.0001 ####[facility] [address] [place], [address] UROBILI Normal Normal [facility] Comment on above: Order Comment: CLEAN CATCH Result Comment: DEP FROM ED Performed By: #### L 400.0001 ####[facility] [address] [place], [address] WBC Normal 0-5 [facility] Comment on above: Order Comment: CLEAN CATCH Result Comment: DEP FROM ED Performed By: #### L 400.0001 ####[facility] [address] [place], [address] White blood cell (WBC) count Ordered By: Sebastian Braswell on 03-29-2025 WBC (Bld) [#/Vol] 7.1 10*3/uL 4.4-11.0 [facility] CNCOon 02-03-2025 CNCO Letter Text Normal [facility] Chest PA and Lateralon 01-19 Chest PA and Lateral Normal [facility] Emergency Department Summary on 01-19-2025 Emergency Department Summary Normal [facility] Chest PA and Lateralon 12-13 Chest PA and Lateral Normal [facility] Emergency Department Summary on 12-13-2024 Emergency Department Summary Normal [facility] Emergency Department Summary on 12-04-2024 Emergency Department Summary Normal [facility] 12 Lead EKGon 2024 12 Lead EKG Normal [facility] Absolute neutrophil countOrd ered By: Lacho Joy on 2024 Neutrophils (Bld) [#/Vol] 7.9 10*3/uL High 2.0-7.7 [facility] BUN/creatinine ratioOrdered By: Lacho Joy on 2024 Urea nitrogen/Creatinine [Mass ratio] 32.6 mg/mg High 10-20 [facility] Basic Metabolic Profile (BMP )on 2024 Anion gap [Moles/Vol] 10 mmol/L Normal 5-15 [facility] Comment on above: Performed By: #### L 500.2500, L100.0100 ####[facility] [address] [place], [address] BUN/CRE 32.6 RATIO High 07-21 [facility] Comment on above: Performed By: #### L 500.2500, L100.0100 ####[facility] [address] [place], [address] Calcium [Mass/Vol] 9.1 mg/dL Normal 7.6-11.0 [facility] Comment on above: Performed By: #### L 500.2500, L100.0100 ####[facility] [address] [place], [address] Chloride [Moles/Vol] 102 mmol/L Normal 96-108 [facility] Comment on above: Performed By: #### L 500.2500, L100.0100 ####[facility] [address] [place], [address] CO2 [Moles/Vol] 26.2 mmol/L Normal 22.0-29.0 [facility] Comment on above: Performed By: #### L 500.2500, L100.0100 ####[facility] [address] [place], [address] Creatinine [Mass/Vol] 0.6 mg/dL Low 0.8-1.3 [facility] Comment on above: Performed By: #### L 500.2500, L100.0100 ####[facility] [address] [place], [address] ECRCL 119.44 ml/min Normal [facility] Comment on above: Performed By: #### L 500.2500, L100.0100 ####[facility] [address] [place], [address] GFR/1.73 sq M.predicted among non-blacks MDRD (S/P/Bld) [Vol rate/Area] 116 mL/min/{1.73_m2} Normal >60 [facility] Comment on above: Result Comment: mL/m in/1.73m2 CKD-EPI Creatinine Equation (2020) Performed By: #### L 500.2500, L100.0100 ####[facility] [address] [place], [address] Glucose [Mass/Vol] 99 mg/dL Normal 70-99 [facility] Comment on above: Performed By: #### L 500.2500, L100.0100 ####[facility] [address] [place], [address] Potassium [Moles/Vol] 4.0 mmol/L Normal 3.3-5.1 [facility] Comment on above: Performed By: #### L 500.2500, L100.0100 ####[facility] [address] [place], [address] Sodium [Moles/Vol] 138 mmol/L Normal 133-145 [facility] Comment on above: Performed By: #### L 500.2500, L100.0100 ####[facility] [address] [place], [address] Urea nitrogen [Mass/Vol] 21 mg/dL High 4-19 [facility] Comment on above: Performed By: #### L 500.2500, L100.0100 ####[facility] [address] [place], [address] Basophil percentageOrdered B y: Lacho Joy on 2024 Basophils/100 WBC (Bld) 0.5 % 0-1 [facility] CBC W/Diff, Automatedon 11-03 Absolute Lymph 1.53 X10 3/uL Normal 0.83-4.51 [facility] Comment on above: Performed By: #### L 500.2500, L100.0100 ####[facility] [address] [place], [address] Absolute Neut 7.9 X10 3/uL High 2.0-7.7 [facility] Comment on above: Performed By: #### L 500.2500, L100.0100 ####[facility] [address] [place], [address] Basophils/100 WBC (Bld) 0.5 % Normal 0-1 [facility] Comment on above: Performed By: #### L 500.2500, L100.0100 ####[facility] [address] [place], [address] Eosinophils/100 WBC (Bld) 3.9 % Normal 0-5 [facility] Comment on above: Performed By: #### L 500.2500, L100.0100 ####[facility] [address] [place], [address] Erythrocyte distribution width (RBC) [Ratio] 13.0 % Normal 11.6-14.6 [facility] Comment on above: Performed By: #### L 500.2500, L100.0100 ####[facility] [address] [place], [address] Hematocrit (Bld) [Volume fraction] 43.0 % Normal 40-54 [facility] Comment on above: Performed By: #### L 500.2500, L100.0100 ####[facility] [address] [place], [address] Hemoglobin (Bld) [Mass/Vol] 14.4 g/dL Normal 13.0-16.5 [facility] Comment on above: Performed By: #### L 500.2500, L100.0100 ####[facility] [address] [place], [address] IG% 0.500 Normal 0.0-0.9 [facility] Comment on above: Result Comment: IG% - Immature Granulocytes (promyelocytes, myelocytes andmetamyelocytes) > 1% indicates that a LEFT SHIFT is Present. Performed By: #### L 500.2500, L100.0100 ####[facility] [address] [place], [address] Lymphocytes/100 WBC (Bld) 14.5 % Low 19-41 [facility] Comment on above: Performed By: #### L 500.2500, L100.0100 ####[facility] [address] [place], [address] MCH (RBC) [Entitic mass] 32.1 pg High 27.0-32.0 [facility] Comment on above: Performed By: #### L 500.2500, L100.0100 ####[facility] [address] [place], [address] MCHC (RBC) [Mass/Vol] 33.5 g/dL Normal 32-36 [facility] Comment on above: Performed By: #### L 500.2500, L100.0100 ####[facility] [address] [place], [address] MCV (RBC) [Entitic vol] 96.0 fL High 80-94 [facility] Comment on above: Performed By: #### L 500.2500, L100.0100 ####[facility] [address] [place], [address] Monocytes/100 WBC (Bld) 6.4 % Normal 0-10 [facility] Comment on above: Performed By: #### L 500.2500, L100.0100 ####[facility] [address] [place], [address] Neutrophils/100 WBC (Bld) 74.2 % High 47-70 [facility] Comment on above: Performed By: #### L 500.2500, L100.0100 ####[facility] [address] [place], [address] Nucleated RBC (Bld) [#/Vol] 0 10*3/uL Normal 0-5 [facility] Comment on above: Performed By: #### L 500.2500, L100.0100 ####[facility] [address], [address] Platelet mean volume (Bld) [Entitic vol] 9.3 fL Normal 6.2-12.0 [facility] Comment on above: Performed By: #### L 500.2500, L100.0100 ####[facility] [address] [place], [address] Platelets (Bld) [#/Vol] 323 10*3/uL Normal 150-450 [facility] Comment on above: Performed By: #### L 500.2500, L100.0100 ####[facility] [address] [place], [address] RBC (Bld) [#/Vol] 4.48 10*6/uL Low 4.6-6.2 [facility] Comment on above: Performed By: #### L 500.2500, L100.0100 ####[facility] [address] [place], [address] RDW SD 45.7 fl High 35.1-43.9 [facility] Comment on above: Performed By: #### L 500.2500, L100.0100 ####[facility] [address] [place], [address] WBC (Bld) [#/Vol] 10.6 10*3/uL Normal 4.4-11.0 [facility] Comment on above: Performed By: #### L 500.2500, L100.0100 ####[facility] [address] [place], [address] Carbon dioxide measurementOr dered By: Lacho Joy on 2024 CO2 [Moles/Vol] 26.2 mmol/L 22.0-29.0 [facility] Chest PA and Lateralon 11-27 Chest PA and Lateral Normal [facility] Chloride measurementOrdered By: Lacho Joy on 2024 Chloride [Moles/Vol] 102 mmol/L 96-108 [facility] Creatinine [Moles/Vol]Ordere d By: Lacho Joy on 2024 Creatinine [Mass/Vol] 0.6 mg/dL Low 0.8-1.3 [facility] Emergency Department Summary on 2024 Emergency Department Summary Normal [facility] Eosinophil percentageOrdered By: Lacho Joy on 2024 Eosinophils/100 WBC (Bld) 3.9 % 0-5 [facility] Erythrocyte distribution wid th ratioOrdered By: Lacho Joy on 2024 Erythrocyte distribution width (RBC) [Ratio] 13.0 % 11.6-14.6 [facility] Erythrocyte distribution wid th standard deviationOrdered By: Lacho Henderson on 2024 Erythrocyte distribution width (RBC) [Entitic vol] 45.7 fL High 35.1-43.9 [facility] Estimation of creatinine akbar aranceOrdered By: Lacho Joy on 2024 Estimated Creatinine Clearance Calc 119.44 ml/min [facility] GFR/1.73 sq M.predicted gertrude g non-blacks MDRD (S/P/Bld) [Vol rate/Area]Ordered By: Lacho Joy on 2024 Estimated GFR (MDRD) Non-Af Amer 116 >60 [facility] Comment on above: mL/min/1.73m2 CKD-EP I Creatinine Equation (2020) Hematocrit Auto (Bld) [Volum e fraction]Ordered By: Lacho Joy on 2024 Hematocrit (Bld) [Volume fraction] 43.0 % 40-54 [facility] Hemoglobin measurementOrdere d By: Lacho Joy on 2024 Hemoglobin (Bld) [Mass/Vol] 14.4 g/dL 13.0-16.5 [facility] Immature granulocytes/100 WB C Auto (Bld)Ordered By: Lacho Joy on 2024 Immature granulocytes/100 WBC (Bld) 0.500 % 0.0-0.9 [facility] Comment on above: IG% - Immature Granu locytes (promyelocytes, myelocytes and metamyelocytes) > 1% indicates that a LEFT SHIFT is Present. Influenza virus A and B and SARS-CoV-2 (COVID-19) and Respiratory syncytial virus RNAOrdered By: Lacho Joy on 2024 SARS-CoV-2 (COVID-19) RNA WES+probe Ql (Unsp spec) [facility] Lymphocytes Auto (Unsp spec) [#/Vol]Ordered By: Lacho Joy on 2024 Lymphocytes (Bld) [#/Vol] 1.53 10*3/uL 0.83-4.51 [facility] Lymphocytes/100 WBC Auto (Un sp spec)Ordered By: Lacho Joy on 2024 Lymphocytes/100 WBC (Bld) 14.5 % Low 19-41 [facility] M100.678on 2024 M100.678 SARS-CoV-2 (COVID 19 ) Negative INFLUENZA A Negative INFLUENZA B Negative RSV PCR Negative Normal [facility] Comment on above: Performed By: #### M 100.678 ####[facility] [address] [place], [place], [id number] MCV (mean corpuscular volume ) determinationOrdered By: Lacho Joy on 2024 MCV (RBC) [Entitic vol] 96.0 fL High 80-94 [facility] Mean corpuscular hemoglobin (MCH) determinationOrdered By: Lacho Benita on 2024 MCH (RBC) [Entitic mass] 32.1 pg High 27.0-32.0 [facility] Mean corpuscular hemoglobin concentration (MCHC) determinationOrdered By: Lacho Joy on 2024 MCHC (RBC) [Mass/Vol] 33.5 g/dL 32-36 [facility] Mean platelet volume determi nationOrdered By: Lacho Joy on 2024 Platelet mean volume (Bld) [Entitic vol] 9.3 fL 6.2-12.0 [facility] Monocyte percentageOrdered B y: Lacho Joy on 2024 Monocytes/100 WBC (Bld) 6.4 % 0-10 [facility] Neutrophil percentageOrdered By: Lacho Joy on 2024 Neutrophils/100 WBC (Bld) 74.2 % High 47-70 [facility] Nucleated red blood cell per centageOrdered By: Lacho Joy on 2024 Nucleated RBC/100 WBC (Bld) [Ratio] 0 % 0-5 [facility] Platelet countOrdered By: Wes Joy on 2024 Platelets (Bld) [#/Vol] 323 10*3/uL 150-450 [facility] RBC Auto (Bld) [#/Vol]Ordere d By: Lacho Joy on 2024 RBC (Bld) [#/Vol] 4.48 10*6/uL Low 4.6-6.2 [facility] Serum glucose measurement (m ass/volume)Ordered By: Lacho Joy on 2024 Glucose [Mass/Vol] 99 mg/dL 70-99 [facility] Serum or plasma anion gap de termination (moles/volume)Ordered By: Lacho Joy on 2024 Anion gap [Moles/Vol] 10 mmol/L 5-15 [facility] Serum or plasma calcium micah urement (mass/volume)Ordered By: Lacho Henderson on 2024 Calcium [Mass/Vol] 9.1 mg/dL 7.6-11.0 [facility] Serum or plasma potassium me asurementOrdered By: Lacho Joy on 2024 Potassium [Moles/Vol] 4.0 mmol/L 3.3-5.1 [facility] Serum or plasma sodium measu rement (moles/volume)Ordered By: Lacho Henderson on 2024 Sodium [Moles/Vol] 138 mmol/L 133-145 [facility] Serum or plasma urea nitroge n measurement (mass/volume)Ordered By: Lacho Joy on 2024 Urea nitrogen [Mass/Vol] 21 mg/dL High 4-19 [facility] White blood cell (WBC) count Ordered By: Lacho Joy on 2024 WBC (Bld) [#/Vol] 10.6 10*3/uL 4.4-11.0 [facility] Emergency Department Summary on 11-20-2024 Emergency Department Summary Normal [facility] Absolute neutrophil countOrd ered By: Trang Valencia on 11-12-2024 Neutrophils (Bld) [#/Vol] 7.1 10*3/uL 2.0-7.7 [facility] Albumin to globulin ratioOrd ered By: Trang Valencia on 11-12-2024 Albumin/Globulin [Mass ratio] 1.0 {ratio} Normal 0.9-2.4 [facility] Comment on above: Performed By: #### L 500.4050, L501.5200, L501.2300, L100.0100 ####[facility] [address] [place], [address] Automated blood erythrocyte countOrdered By: Trang Valencia on 11-12-2024 RBC (Bld) [#/Vol] 3.83 10*6/uL Low 4.6-6.2 [facility] Comment on above: Performed By: #### L 500.4050, L501.5200, L501.2300, L100.0100 ####[facility] [address] [place], [place], [id number] Automated blood hematocrit ( percentage)Ordered By: Trang Valencia on 11-12-2024 Hematocrit (Bld) [Volume fraction] 35.6 % Low 40-54 [facility] Comment on above: Performed By: #### L 500.4050, L501.5200, L501.2300, L100.0100 ####[facility] [address] [place], [address] Automated lymphocyte count a s percentage of total leukocytesOrdered By: Trang Valencia on 11-12-2024 Lymphocytes/100 WBC (Bld) 3.5 % Low 19-41 [facility] Comment on above: Performed By: #### L 500.4050, L501.5200, L501.2300, L100.0100 ####[facility] [address] [place], [address] Basophil percentageOrdered B y: Trangkristy Valencia on 11-12-2024 Basophils/100 WBC (Bld) 0.1 % Normal 0-1 [facility] Comment on above: Performed By: #### L 500.4050, L501.5200, L501.2300, L100.0100 ####[facility] [address] [place], [address] Bilirubin, totalOrdered By: Trang Valencia on 11-12-2024 Bilirubin [Mass/Vol] 0.30 mg/dL Normal 0.20-1.00 [facility] Comment on above: For patients on eltr ombopag therapy, use of Dimension [place] TBIL is not recommended. Result Comment: For patients on eltrombopag therapy, use of Dimension [place] TBIL is not recommended. Performed By: #### L 500.4050, L501.5200, L501.2300, L100.0100 ####[facility] [address] [place], [address] Blood urea nitrogen (BUN)/cr eatinine ratioOrdered By: Trang Valencia on 11-12-2024 Urea nitrogen/Creatinine [Mass ratio] 28.2 mg/mg High 10-20 [facility] CBC W/Diff, Automatedon 02 Absolute Lymph 0.26 X10 3/uL Low 0.83-4.51 [facility] Comment on above: Performed By: #### L 500.4050, L501.5200, L501.2300, L100.0100 ####[facility] [address] [place], [address] Absolute Neut 7.1 X10 3/uL Normal 2.0-7.7 [facility] Comment on above: Performed By: #### L 500.4050, L501.5200, L501.2300, L100.0100 ####[facility] [address] [place], [address] IG% 0.400 Normal 0.0-0.9 [facility] Comment on above: Result Comment: IG% - Immature Granulocytes (promyelocytes, myelocytes andmetamyelocytes) > 1% indicates that a LEFT SHIFT is Present. Performed By: #### L 500.4050, L501.5200, L501.2300, L100.0100 ####[facility] [address] [place], [address] Nucleated RBC (Bld) [#/Vol] 0 10*3/uL Normal 0-5 [facility] Comment on above: Performed By: #### L 500.4050, L501.5200, L501.2300, L100.0100 ####[facility] [address] [place], [address] RDW SD 45.3 fl High 35.1-43.9 [facility] Comment on above: Performed By: #### L 500.4050, L501.5200, L501.2300, L100.0100 ####[facility] [address] [place], [address] Carbon dioxide measurementOr dered By: Trang Valencia on 11-12-2024 CO2 [Moles/Vol] 25.0 mmol/L Normal 21.0-32.0 [facility] Comment on above: Performed By: #### L 500.4050, L501.5200, L501.2300, L100.0100 ####[facility] [address] [place], [address] Chloride measurementOrdered By: Trang Valencia on 11-12-2024 Chloride [Moles/Vol] 106 mmol/L Normal 98-107 [facility] Comment on above: Performed By: #### L 500.4050, L501.5200, L501.2300, L100.0100 ####[facility] [address] [place], [address] Comprehensive Metabolic Prof carrol 11-12-2024 ALK P 41 U/L Low 45-117 [facility] Comment on above: Performed By: #### L 500.4050, L501.5200, L501.2300, L100.0100 ####[facility] [address] [place], [address] BUN/CRE 28.2 RATIO High 10-20 [facility] Comment on above: Performed By: #### L 500.4050, L501.5200, L501.2300, L100.0100 ####[facility] [address] [place], [address] CA,Total 8.8 mg/dL Normal 8.5-10.1 [facility] Comment on above: Performed By: #### L 500.4050, L501.5200, L501.2300, L100.0100 ####[facility] [address] [place], [address] ECRCL 91.57 ml/min Normal [facility] Comment on above: Performed By: #### L 500.4050, L501.5200, L501.2300, L100.0100 ####[facility] [address] [place], [address] EST GFR - AA 136 mL/min Normal >60 [facility] Comment on above: Result Comment: Afri can [place] GFR Calc Performed By: #### L 500.4050, L501.5200, L501.2300, L100.0100 ####[facility] [address] [place], [address] GAP 8 Normal 5-15 [facility] Comment on above: Performed By: #### L 500.4050, L501.5200, L501.2300, L100.0100 ####[facility] [address] [place], [address] GFR/1.73 sq M.predicted among non-blacks MDRD (S/P/Bld) [Vol rate/Area] 112 mL/min/{1.73_m2} Normal >60 [facility] Comment on above: Result Comment: Non- GFR Calc Performed By: #### L 500.4050, L501.5200, L501.2300, L100.0100 ####[facility] [address] [place], [address] T PROT 6.4 g/dL Normal 6.4-8.2 [facility] Comment on above: Performed By: #### L 500.4050, L501.5200, L501.2300, L100.0100 ####[facility] [address] [place], [address] Comprehensive Metabolic Prof ilOrdered By: Trang Valencia on 11-12-2024 AST [Catalytic activity/Vol] 18 U/L Normal 15-37 [facility] Comment on above: Performed By: #### L 500.4050, L501.5200, L501.2300, L100.0100 ####[facility] [address] [place], [address] Eosinophil percentageOrdered By: Trang Valencia on 11-12-2024 Eosinophils/100 WBC (Bld) 0.0 % Normal 0-5 [facility] Comment on above: Performed By: #### L 500.4050, L501.5200, L501.2300, L100.0100 ####[facility] [address] [place], [address] Erythrocyte distribution wid th ratioOrdered By: Trang Valencia on 11-12-2024 Erythrocyte distribution width (RBC) [Ratio] 13.3 % Normal 11.6-14.6 [facility] Comment on above: Performed By: #### L 500.4050, L501.5200, L501.2300, L100.0100 ####[facility] [address] [place], [place], [id number] Erythrocyte distribution wid th standard deviationOrdered By: Trang Valencia on 11-12-2024 Erythrocyte distribution width (RBC) [Entitic vol] 45.3 fL High 35.1-43.9 [facility] Estimated glomerular filtrat ion rate (GFR) AmericanOrdered By: Trang Valencia on 11-12-2024 Estimated GFR (MDRD) Amer 136 mL/min >60 [facility] Comment on above: GFR Calc Estimation of creatinine akbar aranceOrdered By: Trang Valencia on 11-12-2024 Estimated Creatinine Clearance Calc 91.57 ml/min [facility] Glomerular filtration rate ( GFR) estimationOrdered By: Trang Valencia on 11-12-2024 Estimated GFR (MDRD) Non-Af Amer 112 mL/min >60 [facility] Comment on above: Non- GFR Calc Glucose measurementOrdered B y: Trang Valencia on 11-12-2024 Glucose [Mass/Vol] 197 mg/dL High 74-106 [facility] Comment on above: Fasting Glucose resu lt greater than or equal to 126 mg/dL suggests DIABETES MELLITUS per A.D.A. criteria. Result Comment: Fast ing Glucose result greater than or equal to 126 mg/dLsuggests DIABETES MELLITUS per A.D.A. criteria. Performed By: #### L 500.4050, L501.5200, L501.2300, L100.0100 ####[facility] [address] [facility] [place], [address] Hemoglobin measurementOrdere d By: Trang Valencia on 11-12-2024 Hemoglobin (Bld) [Mass/Vol] 12.2 g/dL Low 13.0-16.5 [facility] Comment on above: Performed By: #### L 500.4050, L501.5200, L501.2300, L100.0100 ####[facility] [address] [facility] [place], [address] Immature granulocytes/100 WB C Auto (Bld)Ordered By: Trang Valencia on 11-12-2024 Immature granulocytes/100 WBC (Bld) 0.400 % 0.0-0.9 [facility] Comment on above: IG% - Immature Granu locytes (promyelocytes, myelocytes and metamyelocytes) > 1% indicates that a LEFT SHIFT is Present. Lymphocytes Auto (Unsp spec) [#/Vol]Ordered By: Trang Valencia on 11-12-2024 Lymphocytes (Bld) [#/Vol] 0.26 10*3/uL Low 0.83-4.51 [facility] MCV (mean corpuscular volume ) determinationOrdered By: Trang Valencia on 11-12-2024 MCV (RBC) [Entitic vol] 93.0 fL Normal 80-94 [facility] Comment on above: Performed By: #### L 500.4050, L501.5200, L501.2300, L100.0100 ####[facility] [address] [place], [place], [address] Magnesium measurementOrdered By: Trang Valencia on 11-12-2024 Magnesium [Mass/Vol] 2.1 mg/dL Normal 1.6-2.6 [facility] Comment on above: Performed By: #### L 500.4050, L501.5200, L501.2300, L100.0100 ####[facility] [address] [place], [place], [address] Mean corpuscular hemoglobin (MCH) determinationOrdered By: Trang Valencia on 11-12-2024 MCH (RBC) [Entitic mass] 31.9 pg Normal 27.0-32.0 [facility] Comment on above: Performed By: #### L 500.4050, L501.5200, L501.2300, L100.0100 ####[facility] [address] [place], [place], [address] Mean corpuscular hemoglobin concentration (MCHC) determinationOrdered By: Trang Valencia on 11-12-2024 MCHC (RBC) [Mass/Vol] 34.3 g/dL Normal 32-36 [facility] Comment on above: Performed By: #### L 500.4050, L501.5200, L501.2300, L100.0100 ####[facility] [address] [place], [address] Mean platelet volume determi nationOrdered By: Trang Valencia on 11-12-2024 Platelet mean volume (Bld) [Entitic vol] 9.3 fL Normal 6.2-12.0 [facility] Comment on above: Performed By: #### L 500.4050, L501.5200, L501.2300, L100.0100 ####[facility] [address] [place], [address] Monocyte percentageOrdered B y: Trang Valencia on 11-12-2024 Monocytes/100 WBC (Bld) 1.5 % Normal 0-10 [facility] Comment on above: Performed By: #### L 500.4050, L501.5200, L501.2300, L100.0100 ####[facility] [address] [place], [address] Neutrophil percentageOrdered By: Trang Valencia on 11-12-2024 Neutrophils/100 WBC (Bld) 94.5 % High 47-70 [facility] Comment on above: Performed By: #### L 500.4050, L501.5200, L501.2300, L100.0100 ####[facility] [address] [place], [address] Nucleated red blood cell per centageOrdered By: Trang Valencia on 11-12-2024 Nucleated RBC/100 WBC (Bld) [Ratio] 0 % 0-5 [facility] Phosphoruson 11-12-2024 Phosphate [Mass/Vol] 2.9 mg/dL Normal 2.5-4.9 [facility] Comment on above: Performed By: #### L 500.4050, L501.5200, L501.2300, L100.0100 ####[facility] [address] [place], [address] Phosphorus measurementOrdere d By: Trang Valencia on 11-12-2024 Phosphorus Level 2.9 mg/dL 2.5-4.9 [facility] Platelet countOrdered By: Denise Valencia on 11-12-2024 Platelets (Bld) [#/Vol] 267 10*3/uL Normal 150-450 [facility] Comment on above: Performed By: #### L 500.4050, L501.5200, L501.2300, L100.0100 ####[facility] [address] [place], [address] Potassium measurementOrdered By: Trang Valencia on 11-12-2024 Potassium [Moles/Vol] 3.9 mmol/L Normal 3.5-5.1 [facility] Comment on above: Performed By: #### L 500.4050, L501.5200, L501.2300, L100.0100 ####[facility] [address] [place], [address] Serum anion gap measurementO rdered By: Trang Valencia on 11-12-2024 Anion gap [Moles/Vol] 8 mmol/L 5-15 [facility] Serum globulin measurementOr dered By: Trang Valencia on 11-12-2024 Globulin (S) [Mass/Vol] 3.2 g/dL Normal 2.2-4.2 [facility] Comment on above: Performed By: #### L 500.4050, L501.5200, L501.2300, L100.0100 ####[facility] [address] [place], [address] Serum or plasma alanine love otransferase (ALT) measurementOrdered By: Trang Valencia on 11-12-2024 ALT [Catalytic activity/Vol] 30 U/L Normal 16-61 [facility] Comment on above: Performed By: #### L 500.4050, L501.5200, L501.2300, L100.0100 ####[facility] [address] [place], [address] Serum or plasma albumin micah urement (mass/volume)Ordered By: Trang Valencia on 11-12-2024 Albumin [Mass/Vol] 3.2 g/dL Normal 3.2-5.0 [facility] Comment on above: Performed By: #### L 500.4050, L501.5200, L501.2300, L100.0100 ####[facility] [address] [place], [address] Serum or plasma alkaline jd sphatase measurementOrdered By: Trang Valencia on 11-12-2024 ALP [Catalytic activity/Vol] 41 U/L Low 45-117 [facility] Serum or plasma calcium micah urement (mass/volume)Ordered By: Trang Valencia on 11-12-2024 Calcium [Mass/Vol] 8.8 mg/dL 8.5-10.1 [facility] Serum or plasma creatinine m easurement (mass/volume)Ordered By: Trang Valencia on 11-12-2024 Creatinine [Mass/Vol] 0.78 mg/dL Normal 0.70-1.30 [facility] Comment on above: The validity of the calculated GFR & GFRAA in patients over 70 years has not been determined. Clinical correlation is essential. Result Comment: The validity of the calculated GFR GFRAA in patients over70 years has not been determined. Clinical correlation isessential. Performed By: #### L 500.4050, L501.5200, L501.2300, L100.0100 ####[facility] [address] [place], [address] Serum or plasma urea nitroge n measurement (mass/volume)Ordered By: Trang Valencia on 11-12-2024 Urea nitrogen [Mass/Vol] 22 mg/dL High 7-18 [facility] Comment on above: Performed By: #### L 500.4050, L501.5200, L501.2300, L100.0100 ####[facility] [address] [place], [address] Sodium levelOrdered By: Ema Valencia on 11-12-2024 Sodium [Moles/Vol] 139 mmol/L Normal 136-145 [facility] Comment on above: Performed By: #### L 500.4050, L501.5200, L501.2300, L100.0100 ####[facility] [address] [place], [address] Total proteinOrdered By: Dyana Valencia on 11-12-2024 Protein [Mass/Vol] 6.4 g/dL 6.4-8.2 [facility] White blood cell (WBC) count Ordered By: Trang Valencia on 11-12-2024 WBC (Bld) [#/Vol] 7.5 10*3/uL Normal 4.4-11.0 [facility] Comment on above: Performed By: #### L 500.4050, L501.5200, L501.2300, L100.0100 ####[facility] [address] [place], [address] 12 Lead EKGon 11-11-2024 12 Lead EKG Normal [facility] Arterial patency Wrist arter y --pre arterial punctureOrdered By: Remberto Bernal on 11-11-2024 Connie Test Positive [facility] Base excess Calc (BldV) [Mol es/Vol]Ordered By: Remberto Bernal on 11-11-2024 Blood Gas Base Excess 7 mmol/L High -2-2 [facility] Basic Metabolic Profile (BMP )on 11-11-2024 BUN/CRE 18.1 RATIO Normal 10-20 [facility] Comment on above: Performed By: #### L 500.2500, L100.0100 ####[facility] [address] [place], [address] CA,Total 9.2 mg/dL Normal 8.5-10.1 [facility] Comment on above: Performed By: #### L 500.2500, L100.0100 ####[facility] [address] [place], [address] Chloride [Moles/Vol] 102 mmol/L Normal 98-107 [facility] Comment on above: Performed By: #### L 500.2500, L100.0100 ####[facility] [address] [place], [address] CO2 [Moles/Vol] 32.0 mmol/L Normal 21.0-32.0 [facility] Comment on above: Performed By: #### L 500.2500, L100.0100 ####[facility] [address] [place], [address] Creatinine [Mass/Vol] 1.05 mg/dL Normal 0.70-1.30 [facility] Comment on above: Result Comment: The validity of the calculated GFR GFRAA in patients over70 years has not been determined. Clinical correlation isessential. Performed By: #### L 500.2500, L100.0100 ####[facility] [address] [place], [address] ECRCL 70.10 ml/min Normal [facility] Comment on above: Performed By: #### L 500.2500, L100.0100 ####[facility] [address] [place], [address] EST GFR TNP Normal >60 [facility] Comment on above: Result Comment: Non- GFR Calc Performed By: #### L 500.2500, L100.0100 ####[facility] [address] [place], [address] EST GFR - AA TNP Normal >60 [facility] Comment on above: Result Comment: Afri can [place] GFR Calc Performed By: #### L 500.2500, L100.0100 ####[facility] [address] [place], [address] GAP 9 Normal 5-15 [facility] Comment on above: Performed By: #### L 500.2500, L100.0100 ####[facility] [address] [place], [address] Glucose [Mass/Vol] 202 mg/dL High 74-106 [facility] Comment on above: Result Comment: Gluc ose result greater than or equal to 200 mg/dLsuggests DIABETES MELLITUS per A.D.A. criteria. Performed By: #### L 500.2500, L100.0100 ####[facility] [address] [place], [address] Potassium [Moles/Vol] 4.0 mmol/L Normal 3.5-5.1 [facility] Comment on above: Performed By: #### L 500.2500, L100.0100 ####[facility] [address] [place], [address] Sodium [Moles/Vol] 142 mmol/L Normal 136-145 [facility] Comment on above: Performed By: #### L 500.2500, L100.0100 ####[facility] [address] [place], [address] Urea nitrogen [Mass/Vol] 19 mg/dL High 7-18 [facility] Comment on above: Performed By: #### L 500.2500, L100.0100 ####[facility] [address] [place], [address] [facility] CONNIE TEST Positive Normal [facility] Comment on above: Performed By: #### L 9000.0800 ####[facility] [address] [place], [address] Base excess Calc (Bld) [Moles/Vol] 7 mmol/L High -2 to +2 [facility] Comment on above: Performed By: #### L 9000.0800 ####[facility] [address] [place], [address] Blood Gas Type ART Normal [facility] Comment on above: Performed By: #### L 8999.0800 ####[facility] [address] [place], [address] CO2 [Moles/Vol] 35 mmol/L Normal [facility] Comment on above: Performed By: #### L 8999.0800 ####[facility] [address] [place], [address] FI02 35.0 Normal [facility] Comment on above: Performed By: #### L 8999.0800 ####[facility] [address] [place], [address] HCO3 (Bld) [Moles/Vol] 32.9 mmol/L High 22-26 [facility] Comment on above: Performed By: #### L 8999.0800 ####[facility] [address] [place], [address] Mode Not entered Normal [facility] Comment on above: Performed By: #### L 0.0800 ####[facility] [address] [place], [address] O2 Delivery Dev BiPAP Normal [facility] Comment on above: Performed By: #### L 8999.0800 ####[facility] [address] [place], [address] pCO2 65.3 mmHg High 35-45 [facility] Comment on above: Performed By: #### L 8999.0800 ####[facility] [address] [place], [address] PEEP 6 Normal [facility] Comment on above: Performed By: #### L 8999.0800 ####[facility] [address] [place], [address] pH (Bld) 7.31 [pH] Low 7.35-7.45 [facility] Comment on above: Performed By: #### L 9000.0800 ####[facility] [address] [place], [address] PO2 183 mmHG High 75-100 [facility] Comment on above: Performed By: #### L 9000.0800 ####[facility] [address] [place], [address] SITE L Radial Normal [facility] Comment on above: Performed By: #### L 9000.0800 ####[facility] [address] [place], [address] SO2 99 Normal 95-99 [facility] Comment on above: Performed By: #### L 9000.0800 ####[facility] [address] [place], [address] Blood bicarbonate measuremen tOrdered By: Remberto Bernal on 11-11-2024 Blood Gas Bicarbonate Actual 32.9 mmol/L High 22-26 [facility] CBC W/Diff, Automatedon --2024 Absolute Lymph 2.64 X10 3/uL Normal 0.83-4.51 [facility] Comment on above: Performed By: #### L 500.2500, L100.0100 ####[facility] [address] [place], [address] Absolute Neut 7.7 X10 3/uL Normal 2.0-7.7 [facility] Comment on above: Performed By: #### L 500.2500, L100.0100 ####[facility] [address] [place], [address] Basophils/100 WBC (Bld) 0.8 % Normal 0-1 [facility] Comment on above: Performed By: #### L 500.2500, L100.0100 ####[facility] [address] [place], [address] Eosinophils/100 WBC (Bld) 2.9 % Normal 0-5 [facility] Comment on above: Performed By: #### L 500.2500, L100.0100 ####[facility] [address] [place], [address] Erythrocyte distribution width (RBC) [Ratio] 13.2 % Normal 11.6-14.6 [facility] Comment on above: Performed By: #### L 500.2500, L100.0100 ####[facility] [address] [place], [address] Hematocrit (Bld) [Volume fraction] 44.1 % Normal 40-54 [facility] Comment on above: Performed By: #### L 500.2500, L100.0100 ####[facility] [address] [place], [address] Hemoglobin (Bld) [Mass/Vol] 14.5 g/dL Normal 13.0-16.5 [facility] Comment on above: Performed By: #### L 500.2500, L100.0100 ####[facility] [address] [place], [address] IG% 0.300 Normal 0.0-0.9 [facility] Comment on above: Result Comment: IG% - Immature Granulocytes (promyelocytes, myelocytes andmetamyelocytes) > 1% indicates that a LEFT SHIFT is Present. Performed By: #### L 500.2500, L100.0100 ####[facility] [address] [place], [address] Lymphocytes/100 WBC (Bld) 23.1 % Normal 19-41 [facility] Comment on above: Performed By: #### L 500.2500, L100.0100 ####[facility] [address] [place], [address] MCH (RBC) [Entitic mass] 31.5 pg Normal 27.0-32.0 [facility] Comment on above: Performed By: #### L 500.2500, L100.0100 ####[facility] [address] [place], [address] MCHC (RBC) [Mass/Vol] 32.9 g/dL Normal 32-36 [facility] Comment on above: Performed By: #### L 500.2500, L100.0100 ####[facility] [address] [place], [address] MCV (RBC) [Entitic vol] 95.7 fL High 80-94 [facility] Comment on above: Performed By: #### L 500.2500, L100.0100 ####[facility] [address] [place], [address] Monocytes/100 WBC (Bld) 5.6 % Normal 0-10 [facility] Comment on above: Performed By: #### L 500.2500, L100.0100 ####[facility] [address] [place], [address] Neutrophils/100 WBC (Bld) 67.3 % Normal 47-70 [facility] Comment on above: Performed By: #### L 500.2500, L100.0100 ####[facility] [address] [place], [address] Nucleated RBC (Bld) [#/Vol] 0 10*3/uL Normal 0-5 [facility] Comment on above: Performed By: #### L 500.2500, L100.0100 ####[facility] [address] [place], [address] Platelet mean volume (Bld) [Entitic vol] 9.2 fL Normal 6.2-12.0 [facility] Comment on above: Performed By: #### L 500.2500, L100.0100 ####[facility] [address] [place], [address] Platelets (Bld) [#/Vol] 400 10*3/uL Normal 150-450 [facility] Comment on above: Performed By: #### L 500.2500, L100.0100 ####[facility] [address] [place], [address] RBC (Bld) [#/Vol] 4.61 10*6/uL Normal 4.6-6.2 [facility] Comment on above: Performed By: #### L 500.2500, L100.0100 ####[facility] [address] [place], [address] RDW SD 46.2 fl High 35.1-43.9 [facility] Comment on above: Performed By: #### L 500.2500, L100.0100 ####[facility] [address] [place], [address] WBC (Bld) [#/Vol] 11.4 10*3/uL High 4.4-11.0 [facility] Comment on above: Performed By: #### L 500.2500, L100.0100 ####[facility] [address] [place], [address] Chest 1 View (Portable)on Chest 1 View (Portable) Normal [facility] Determination of fraction of inspired oxygenOrdered By: Remberto Bernal on 11-11-2024 Blood Gas Oxygen Percent 35.0 [facility] Emergency Department Summary on 11-11-2024 Emergency Department Summary Normal [facility] H AND P Exam - [facility] 11-11-2024 H&P Exam - Hospitalist Normal [facility] Hemoglobin A1con 11-11-2024 HbA1c (Bld) [Mass fraction] 6.0 % High 3.8-5.6 [facility] Comment on above: Result Comment: Norm al < 5.7 % Prediabetic 5.7 - 6.4 % Diabetic >or= 6.5 % Please note range changes. Performed By: #### L [phone] ####[facility] [id number] [place], [place], [id number] Hemoglobin A1c percentageOrd ered By: Trang Valencia on 11-11-2024 HbA1c (Bld) [Mass fraction] 6.0 % High 3.8-5.6 [facility] Comment on above: Normal < 5.7 % Predi abetic 5.7 - 6.4 % Diabetic >or= 6.5 % Please note range changes. Influenza virus A and B and SARS-CoV-2 (COVID-19) and Respiratory syncytial virus RNAOrdered By: Remberto Bernal on 11-11-2024 SARS-CoV-2 (COVID-19) RNA WES+probe Ql (Unsp spec) [facility] [id number] 11-11-2024 M100.678 Pending SARS-CoV-2 (COVID 19) Negative INFLUENZA A Negative INFLUENZA B Negative RSV PCR Negative Normal [facility] Comment on above: Performed By: #### M 100.678 ####[facility] [address] [place], [place], [id number] No Panel InformationOrdered By: Rmeberto Bernal on 11-11-2024 Bedside Blood Gas PEEP 6 [facility] Blood Gas Sample Site L Radial [facility] Blood Gas Specimen Type ART [facility] Blood Gas Vent Mode Not entered [facility] Oxygen Delivery Device BiPAP [facility] Oxygen saturation measuremen tOrdered By: Remberto Bernal on 11-11-2024 Blood Gas Oxygen Saturation 99 % 95-99 [facility] Partial pressure of carbon d ioxide measurementOrdered By: Remberto Bernal on 11-11-2024 Arterial Blood Partial Pressure CO2 65.3 mmHg High 35-45 [facility] Partial pressure of oxygen m easurementOrdered By: Remberto Bernal on 11-11-2024 Arterial Blood Partial Pressure O2 183 mmHG High 75-100 [facility] RESPIRATORY PANEL MOLECULARo n 11-11-2024 RP PANEL Normal [facility] Comment on above: Performed By: #### M 100.638 ####[facility] [address] [place], [address] Respiratory pathogens DNA an d RNA panel WES+probe (Resp)Ordered By: Trang Valencia on 11-11-2024 Respiratory Panel (PCR) [facility] Total carbon dioxide measure mentOrdered By: Remberto Bernal on 11-11-2024 Blood Gas Total CO2 35 mmol/L [facility] pH (Unsp spec)Ordered By: Holli Bernal on 11-11-2024 Blood Gas pH 7.31 Low 7.35-7.45 [facility] Respiratory Cultureon 2024 RESPC Mixed normal respiratory [place]. No Streptococcus pneumoniae, beta-hemolytic Streptococcus or Staphylococcus aureus isolated. Normal [facility] Comment on above: Performed By: #### M 100.2400, M300.4600, M100.2000, M300.4500 ####[facility] [address] [place], [address] Absolute neutrophil countOrd ered By: Graham Tolbert on 10-23-2024 Neutrophils (Bld) [#/Vol] 11.4 10*3/uL High 2.0-7.7 [facility] Basic Metabolic Profile (BMP )on 10-23-2024 BUN/CRE 29.6 RATIO High 10-20 [facility] Comment on above: Performed By: #### L 100.0100, L500.2500 ####[facility] [address] [place], [address] CA,Total 9.3 mg/dL Normal 8.5-10.1 [facility] Comment on above: Performed By: #### L 100.0100, L500.2500 ####[facility] [address] [place], [address] Chloride [Moles/Vol] 105 mmol/L Normal 98-107 [facility] Comment on above: Performed By: #### L 100.0100, L500.2500 ####[facility] [address] [place], [address] CO2 [Moles/Vol] 28.0 mmol/L Normal 21.0-32.0 [facility] Comment on above: Performed By: #### L 100.0100, L500.2500 ####[facility] [address] [place], [address] Creatinine [Mass/Vol] 0.78 mg/dL Normal 0.70-1.30 [facility] Comment on above: Result Comment: The validity of the calculated GFR GFRAA in patients over70 years has not been determined. Clinical correlation isessential. Performed By: #### L 100.0100, L500.2500 ####[facility] [address] [place], [address] ECRCL 90.10 ml/min Normal [facility] Comment on above: Performed By: #### L 100.0100, L500.2500 ####[facility] [address] [place], [address] EST GFR - AA 137 mL/min Normal >60 [facility] Comment on above: Result Comment: Afri can [place] GFR Calc Performed By: #### L 100.0100, L500.2500 ####[facility] [address] [place], [address] GAP 5 Normal 5-15 [facility] Comment on above: Performed By: #### L 100.0100, L500.2500 ####[facility] [address] [place], [address] GFR/1.73 sq M.predicted among non-blacks MDRD (S/P/Bld) [Vol rate/Area] 113 mL/min/{1.73_m2} Normal >60 [facility] Comment on above: Result Comment: Non- GFR Calc Performed By: #### L 100.0100, L500.2500 ####[facility] [address] [place], [address] Glucose [Mass/Vol] 143 mg/dL High 74-106 [facility] Comment on above: Result Comment: Fast ing Glucose result greater than or equal to 126 mg/dLsuggests DIABETES MELLITUS per A.D.A. criteria. Performed By: #### L 100.0100, L500.2500 ####[facility] [address] [place], [address] Potassium [Moles/Vol] 4.4 mmol/L Normal 3.5-5.1 [facility] Comment on above: Performed By: #### L 100.0100, L500.2500 ####[facility] [address] [place], [address] Sodium [Moles/Vol] 138 mmol/L Normal 136-145 [facility] Comment on above: Performed By: #### L 100.0100, L500.2500 ####[facility] [address] [place], [address] Urea nitrogen [Mass/Vol] 23 mg/dL High 7-18 [facility] Comment on above: Performed By: #### L 100.0100, L500.2500 ####[facility] [address] [place], [address] Basophil percentageOrdered B y: Graham Tolbert on 10-23-2024 Basophils/100 WBC (Bld) 0.1 % 0-1 [facility] Blood urea nitrogen (BUN)/cr eatinine ratioOrdered By: Graham Tolbert on 10-23-2024 Urea nitrogen/Creatinine [Mass ratio] 29.6 mg/mg High 10-20 [facility] CBC W/Diff, Automatedon 10-03 Absolute Lymph 0.73 X10 3/uL Low 0.83-4.51 [facility] Comment on above: Performed By: #### L 100.0100, L500.2500 ####[facility] [address] [place], [address] Absolute Neut 11.4 X10 3/uL High 2.0-7.7 [facility] Comment on above: Performed By: #### L 100.0100, L500.2500 ####[facility] [address] [place], [address] Basophils/100 WBC (Bld) 0.1 % Normal 0-1 [facility] Comment on above: Performed By: #### L 100.0100, L500.2500 ####[facility] [address] [place], [address] Eosinophils/100 WBC (Bld) 0.0 % Normal 0-5 [facility] Comment on above: Performed By: #### L 100.0100, L500.2500 ####[facility] [address] [place], [address] Erythrocyte distribution width (RBC) [Ratio] 13.1 % Normal 11.6-14.6 [facility] Comment on above: Performed By: #### L 100.0100, L500.2500 ####[facility] [address] [place], [address] Hematocrit (Bld) [Volume fraction] 36.9 % Low 40-54 [facility] Comment on above: Performed By: #### L 100.0100, L500.2500 ####[facility] [address] [place], [address] Hemoglobin (Bld) [Mass/Vol] 12.1 g/dL Low 13.0-16.5 [facility] Comment on above: Performed By: #### L 100.0100, L500.2500 ####[facility] [address] [place], [address] IG% 0.500 Normal 0.0-0.9 [facility] Comment on above: Result Comment: IG% - Immature Granulocytes (promyelocytes, myelocytes andmetamyelocytes) > 1% indicates that a LEFT SHIFT is Present. Performed By: #### L 100.0100, L500.2500 ####[facility] [address] [place], [address] Lymphocytes/100 WBC (Bld) 5.7 % Low 19-41 [facility] Comment on above: Performed By: #### L 100.0100, L500.2500 ####[facility] [address] [place], [address] MCH (RBC) [Entitic mass] 31.2 pg Normal 27.0-32.0 [facility] Comment on above: Performed By: #### L 100.0100, L500.2500 ####[facility] [address] [place], [address] MCHC (RBC) [Mass/Vol] 32.8 g/dL Normal 32-36 [facility] Comment on above: Performed By: #### L 100.0100, L500.2500 ####[facility] [address] [place], [address] MCV (RBC) [Entitic vol] 95.1 fL High 80-94 [facility] Comment on above: Performed By: #### L 100.0100, L500.2500 ####[facility] [address] [place], [address] Monocytes/100 WBC (Bld) 4.2 % Normal 0-10 [facility] Comment on above: Performed By: #### L 100.0100, L500.2500 ####[facility] [address] [place], [address] Neutrophils/100 WBC (Bld) 89.5 % High 47-70 [facility] Comment on above: Performed By: #### L 100.0100, L500.2500 ####[facility] [address] [place], [address] Nucleated RBC (Bld) [#/Vol] 0 10*3/uL Normal 0-5 [facility] Comment on above: Performed By: #### L 100.0100, L500.2500 ####[facility] [address] [place], [address] Platelet mean volume (Bld) [Entitic vol] 9.6 fL Normal 6.2-12.0 [facility] Comment on above: Performed By: #### L 100.0100, L500.2500 ####[facility] [address] [place], [address] Platelets (Bld) [#/Vol] 287 10*3/uL Normal 150-450 [facility] Comment on above: Performed By: #### L 100.0100, L500.2500 ####[facility] [address] [place], [address] RBC (Bld) [#/Vol] 3.88 10*6/uL Low 4.6-6.2 [facility] Comment on above: Performed By: #### L 100.0100, L500.2500 ####[facility] [address] [place], [address] RDW SD 45.7 fl High 35.1-43.9 [facility] Comment on above: Performed By: #### L 100.0100, L500.2500 ####[facility] [address] [place], [address] WBC (Bld) [#/Vol] 12.8 10*3/uL High 4.4-11.0 [facility] Comment on above: Performed By: #### L 100.0100, L500.2500 ####[facility] [address] [place], [address] Carbon dioxide measurementOr dered By: Graham Tolbert on 10-23-2024 CO2 [Moles/Vol] 28.0 mmol/L 21.0-32.0 [facility] Chloride measurementOrdered By: Graham Tolbert on 10-23-2024 Chloride [Moles/Vol] 105 mmol/L 98-107 [facility] Eosinophil percentageOrdered By: Graham Tolbert on 10-23-2024 Eosinophils/100 WBC (Bld) 0.0 % 0-5 [facility] Erythrocyte distribution wid th ratioOrdered By: Graham Tolbert on 10-23-2024 Erythrocyte distribution width (RBC) [Ratio] 13.1 % 11.6-14.6 [facility] Erythrocyte distribution wid th standard deviationOrdered By: Graham Tolbert on 10-23-2024 Erythrocyte distribution width (RBC) [Entitic vol] 45.7 fL High 35.1-43.9 [facility] Estimated glomerular filtrat ion rate (GFR) AmericanOrdered By: Graham Tolbert on 10-23-2024 Estimated GFR (MDRD) Amer 137 mL/min >60 [facility] Comment on above: GFR Calc Estimation of creatinine akbar aranceOrdered By: Graham Tolbert on 10-23-2024 Estimated Creatinine Clearance Calc 90.10 ml/min [facility] Glomerular filtration rate ( GFR) estimationOrdered By: Graham Tolbert on 10-23-2024 Estimated GFR (MDRD) Non-Af Amer 113 mL/min >60 [facility] Comment on above: Non- GFR Calc Glucose measurementOrdered B y: Graham Tolbert on 10-23-2024 Glucose [Mass/Vol] 143 mg/dL High 74-106 [facility] Comment on above: Fasting Glucose resu lt greater than or equal to 126 mg/dL suggests DIABETES MELLITUS per A.D.A. criteria. Gram Stainon 10-23-2024 GS Acceptable Specimen? Yes (<25 Epithelial cells per/lpf) Gram Stain No cells seen Very Rare Gram positive cocci Normal [facility] Comment on above: Performed By: #### M 100.2400, M300.4600, M100.2000, M300.4500 ####[facility] [address] [place], [address] Hematocrit Auto (Bld) [Volum e fraction]Ordered By: Graham Tolbert on 10-23-2024 Hematocrit (Bld) [Volume fraction] 36.9 % Low 40-54 [facility] Hemoglobin measurementOrdere d By: Graham Tolbert on 10-23-2024 Hemoglobin (Bld) [Mass/Vol] 12.1 g/dL Low 13.0-16.5 [facility] Immature granulocytes/100 WB C Auto (Bld)Ordered By: Graham Tolbert on 10-23-2024 Immature granulocytes/100 WBC (Bld) 0.500 % 0.0-0.9 [facility] Comment on above: IG% - Immature Granu locytes (promyelocytes, myelocytes and metamyelocytes) > 1% indicates that a LEFT SHIFT is Present. Lymphocytes Auto (Unsp spec) [#/Vol]Ordered By: Graham Tolbert on 10-23-2024 Lymphocytes (Bld) [#/Vol] 0.73 10*3/uL Low 0.83-4.51 [facility] Lymphocytes/100 WBC Auto (Un sp spec)Ordered By: Graham Tolbert on 10-23-2024 Lymphocytes/100 WBC (Bld) 5.7 % Low 19-41 [facility] MCV (mean corpuscular volume ) determinationOrdered By: Graham Tolbert on 10-23-2024 MCV (RBC) [Entitic vol] 95.1 fL High 80-94 [facility] Mean corpuscular hemoglobin (MCH) determinationOrdered By: Graham Tolbert on 10-23-2024 MCH (RBC) [Entitic mass] 31.2 pg 27.0-32.0 [facility] Mean corpuscular hemoglobin concentration (MCHC) determinationOrdered By: Graham Tolbert on 10-23-2024 MCHC (RBC) [Mass/Vol] 32.8 g/dL 32-36 [facility] Mean platelet volume determi nationOrdered By: Graham Tolbert on 10-23-2024 Platelet mean volume (Bld) [Entitic vol] 9.6 fL 6.2-12.0 [facility] Monocyte percentageOrdered B y: Graham Tolbert on 10-23-2024 Monocytes/100 WBC (Bld) 4.2 % 0-10 [facility] Neutrophil percentageOrdered By: Graham Tolbert on 10-23-2024 Neutrophils/100 WBC (Bld) 89.5 % High 47-70 [facility] Nucleated red blood cell per centageOrdered By: Graham Tolbert on 10-23-2024 Nucleated RBC/100 WBC (Bld) [Ratio] 0 % 0-5 [facility] Platelet countOrdered By: Edouard Tolbert on 10-23-2024 Platelets (Bld) [#/Vol] 287 10*3/uL 150-450 [facility] Potassium measurementOrdered By: Graham Tolbert on 10-23-2024 Potassium [Moles/Vol] 4.4 mmol/L 3.5-5.1 [facility] RBC Auto (Bld) [#/Vol]Ordere d By: Graham Tolbert on 10-23-2024 RBC (Bld) [#/Vol] 3.88 10*6/uL Low 4.6-6.2 [facility] Serum anion gap measurementO rdered By: Graham Tolbert on 10-23-2024 Anion gap [Moles/Vol] 5 mmol/L 5-15 [facility] Serum or plasma calcium micah urement (mass/volume)Ordered By: Graham Tolbert on 10-23-2024 Calcium [Mass/Vol] 9.3 mg/dL 8.5-10.1 [facility] Serum or plasma creatinine m easurement (mass/volume)Ordered By: Graham Tolbert on 10-23-2024 Creatinine [Mass/Vol] 0.78 mg/dL 0.70-1.30 [facility] Comment on above: The validity of the calculated GFR & GFRAA in patients over 70 years has not been determined. Clinical correlation is essential. Serum or plasma urea nitroge n measurement (mass/volume)Ordered By: Graham Tolbert on 10-23-2024 Urea nitrogen [Mass/Vol] 23 mg/dL High 7-18 [facility] Sodium levelOrdered By: Graham Tolbert on 10-23-2024 Sodium [Moles/Vol] 138 mmol/L 136-145 [facility] White blood cell (WBC) count Ordered By: Graham Tolbert on 10-23-2024 WBC (Bld) [#/Vol] 12.8 10*3/uL High 4.4-11.0 [facility] Basic Metabolic Profile (BMP )on 10-22-2024 BUN/CRE 34.7 RATIO High 10-20 [facility] Comment on above: Performed By: #### L 500.2500, L100.0100 ####[facility] [address] [place], [address] CA,Total 8.8 mg/dL Normal 8.5-10.1 [facility] Comment on above: Performed By: #### L 500.2500, L100.0100 ####[facility] [address] [place], [address] Chloride [Moles/Vol] 110 mmol/L High 98-107 [facility] Comment on above: Performed By: #### L 500.2500, L100.0100 ####[facility] [address] [place], [address] CO2 [Moles/Vol] 25.0 mmol/L Normal 21.0-32.0 [facility] Comment on above: Performed By: #### L 500.2500, L100.0100 ####[facility] [address] [place], [address] Creatinine [Mass/Vol] 0.63 mg/dL Low 0.70-1.30 [facility] Comment on above: Result Comment: The validity of the calculated GFR GFRAA in patients over70 years has not been determined. Clinical correlation isessential. Performed By: #### L 500.2500, L100.0100 ####[facility] [address] [place], [address] ECRCL 111.55 ml/min Normal [facility] Comment on above: Performed By: #### L 500.2500, L100.0100 ####[facility] [address] [place], [address] EST GFR - AA 173 mL/min Normal >60 [facility] Comment on above: Result Comment: Afri can [place] GFR Calc Performed By: #### L 500.2500, L100.0100 ####[facility] [address] [place], [address] GAP 4 Low 5-15 [facility] Comment on above: Performed By: #### L 500.2500, L100.0100 ####[facility] [address] [place], [address] GFR/1.73 sq M.predicted among non-blacks MDRD (S/P/Bld) [Vol rate/Area] 143 mL/min/{1.73_m2} Normal >60 [facility] Comment on above: Result Comment: Non- GFR Calc Performed By: #### L 500.2500, L100.0100 ####[facility] [address] [place], [address] Glucose [Mass/Vol] 179 mg/dL High 74-106 [facility] Comment on above: Result Comment: Fast ing Glucose result greater than or equal to 126 mg/dLsuggests DIABETES MELLITUS per A.D.A. criteria. Performed By: #### L 500.2500, L100.0100 ####[facility] [address] [place], [address] Potassium [Moles/Vol] 4.2 mmol/L Normal 3.5-5.1 [facility] Comment on above: Performed By: #### L 500.2500, L100.0100 ####[facility] [address] [place], [address] Sodium [Moles/Vol] 138 mmol/L Normal 136-145 [facility] Comment on above: Performed By: #### L 500.2500, L100.0100 ####[facility] [address] [place], [address] Urea nitrogen [Mass/Vol] 22 mg/dL High 7-18 [facility] Comment on above: Performed By: #### L 500.2500, L100.0100 ####[facility] [address] [place], [address] CBC W/Diff, Automatedon 10-03 Absolute Lymph 0.32 X10 3/uL Low 0.83-4.51 [facility] Comment on above: Performed By: #### L 500.2500, L100.0100 ####[facility] [address] [place], [address] Absolute Neut 4.9 X10 3/uL Normal 2.0-7.7 [facility] Comment on above: Performed By: #### L 500.2500, L100.0100 ####[facility] [address] [place], [address] Basophils/100 WBC (Bld) 0.2 % Normal 0-1 [facility] Comment on above: Performed By: #### L 500.2500, L100.0100 ####[facility] [address] [place], [address] Eosinophils/100 WBC (Bld) 0.0 % Normal 0-5 [facility] Comment on above: Performed By: #### L 500.2500, L100.0100 ####[facility] [address] [place], [address] Erythrocyte distribution width (RBC) [Ratio] 12.9 % Normal 11.6-14.6 [facility] Comment on above: Performed By: #### L 500.2500, L100.0100 ####[facility] [address] [place], [address] Hematocrit (Bld) [Volume fraction] 35.4 % Low 40-54 [facility] Comment on above: Performed By: #### L 500.2500, L100.0100 ####[facility] [address] [place], [address] Hemoglobin (Bld) [Mass/Vol] 11.9 g/dL Low 13.0-16.5 [facility] Comment on above: Performed By: #### L 500.2500, L100.0100 ####[facility] [address] [place], [address] IG% 0.400 Normal 0.0-0.9 [facility] Comment on above: Result Comment: IG% - Immature Granulocytes (promyelocytes, myelocytes andmetamyelocytes) > 1% indicates that a LEFT SHIFT is Present. Performed By: #### L 500.2500, L100.0100 ####[facility] [address] [place], [address] Lymphocytes/100 WBC (Bld) 6.1 % Low 19-41 [facility] Comment on above: Performed By: #### L 500.2500, L100.0100 ####[facility] [address] [place], [address] MCH (RBC) [Entitic mass] 32.1 pg High 27.0-32.0 [facility] Comment on above: Performed By: #### L 500.2500, L100.0100 ####[facility] [address] [place], [address] MCHC (RBC) [Mass/Vol] 33.6 g/dL Normal 32-36 [facility] Comment on above: Performed By: #### L 500.2500, L100.0100 ####[facility] [address] [place], [address] MCV (RBC) [Entitic vol] 95.4 fL High 80-94 [facility] Comment on above: Performed By: #### L 500.2500, L100.0100 ####[facility] [address] [place], [address] Monocytes/100 WBC (Bld) 1.0 % Normal 0-10 [facility] Comment on above: Performed By: #### L 500.2500, L100.0100 ####[facility] [address] [place], [address] Neutrophils/100 WBC (Bld) 92.3 % High 47-70 [facility] Comment on above: Performed By: #### L 500.2500, L100.0100 ####[facility] [address] [place], [address] Nucleated RBC (Bld) [#/Vol] 0 10*3/uL Normal 0-5 [facility] Comment on above: Performed By: #### L 500.2500, L100.0100 ####[facility] [address] [place], [address] Platelet mean volume (Bld) [Entitic vol] 9.5 fL Normal 6.2-12.0 [facility] Comment on above: Performed By: #### L 500.2500, L100.0100 ####[facility] [address] [place], [address] Platelets (Bld) [#/Vol] 264 10*3/uL Normal 150-450 [facility] Comment on above: Performed By: #### L 500.2500, L100.0100 ####[facility] [address] [place], [address] RBC (Bld) [#/Vol] 3.71 10*6/uL Low 4.6-6.2 [facility] Comment on above: Performed By: #### L 500.2500, L100.0100 ####[facility] [address] [place], [address] RDW SD 44.8 fl High 35.1-43.9 [facility] Comment on above: Performed By: #### L 500.2500, L100.0100 ####[facility] [address] [place], [address] WBC (Bld) [#/Vol] 5.3 10*3/uL Normal 4.4-11.0 [facility] Comment on above: Performed By: #### L 500.2500, L100.0100 ####[facility] [address] [place], [address] Gram stainOrdered By: Graham mar on 10-22-2024 Microscopic observation Gram stain Nom (Unsp spec) [facility] L. pneumophila Ag Ql (U)Orde red By: Graham Tolbert on 10-22-2024 Legionella Antigen [facility] Legionella Antigen Urineon 0 10-22-2024 LEGU Normal [facility] Comment on above: Performed By: #### M 100.2400, M300.4600, M100.2000, M300.4500 ####[facility] [address] [place], [address] Microorganism identified Cx Nom (Unsp spec)Ordered By: Graham Tolbert on 10-22-2024 Respiratory Culture or Staphylococcus aureus isolated. [facility] RESPIRATORY PANEL MOLECULARo n 10-22-2024 RP PANEL Normal [facility] Comment on above: Performed By: #### M 100.638 ####[facility] [address] [place], [address] Respiratory pathogens DNA an d RNA panel WES+probe (Resp)Ordered By: Troy Monroy on 10-22-2024 Respiratory Panel (PCR) [facility] Strep pneumoniae Antig(UR,CS F)on 10-22-2024 STPAG Normal [facility] Comment on above: Performed By: #### M 100.2400, M300.4600, M100.2000, M300.4500 ####[facility] [address] [place], [address] Streptococcus pneumoniae ant igen assayOrdered By: Graham Tolbert on 10-22-2024 Streptococcus pneumoniae Antigen (M [facility] 12 Lead EKGon 10-21-2024 12 Lead EKG Normal [facility] Arterial patency Wrist arter y --pre arterial punctureOrdered By: Julius Matthews on 10-21-2024 Connie Test Positive [facility] BNP (brain natriuretic pepti de measurement)Ordered By: Julius Matthews on 10-21-2024 Natriuretic peptide B (Bld) [Mass/Vol] 31.1 pg/mL 0-100 [facility] BNP,B-Type NATRIURETIC PEPTI Shashi 10-21-2024 Natriuretic peptide B (Bld) [Mass/Vol] 31.1 pg/mL Normal 0-100 [facility] Comment on above: Performed By: #### L 503.6620, L100.0100, L501.4020, L500.2500 ####[facility] [address] [place], [address] Base excess Calc (BldV) [Mol es/Vol]Ordered By: Julius Matthews on 10-21-2024 Blood Gas Base Excess 10 mmol/L High -2-2 [facility] Basic Metabolic Profile (BMP )on 10-21-2024 BUN/CRE 34.1 RATIO High -20 [facility] Comment on above: Order Comment: 'TROP ' Serial specimen #1, #2 or #3: 1 Performed By: #### L 503.6620, L100.0100, L501.4020, L500.2500 ####[facility] [address] [place], [address] CA,Total 9.3 mg/dL Normal 8.5-10.1 [facility] Comment on above: Order Comment: 'TROP ' Serial specimen #1, #2 or #3: 1 Performed By: #### L 503.6620, L100.0100, L501.4020, L500.2500 ####[facility] [address] [place], [address] Chloride [Moles/Vol] 101 mmol/L Normal 98-107 [facility] Comment on above: Order Comment: 'TROP ' Serial specimen #1, #2 or #3: 1 Performed By: #### L 503.6620, L100.0100, L501.4020, L500.2500 ####[facility] [address] [place], [address] CO2 [Moles/Vol] 37.0 mmol/L High 21.0-32.0 [facility] Comment on above: Order Comment: 'TROP ' Serial specimen #1, #2 or #3: 1 Performed By: #### L 503.6620, L100.0100, L501.4020, L500.2500 ####[facility] [address] [place], [address] Creatinine [Mass/Vol] 0.82 mg/dL Normal 0.70-1.30 [facility] Comment on above: Order Comment: 'TROP ' Serial specimen #1, #2 or #3: 1 Result Comment: The validity of the calculated GFR GFRAA in patients over70 years has not been determined. Clinical correlation isessential. Performed By: #### L 503.6620, L100.0100, L501.4020, L500.2500 ####[facility] [address] [place], [address] ECRCL 90.07 ml/min Normal [facility] Comment on above: Order Comment: 'TROP ' Serial specimen #1, #2 or #3: 1 Performed By: #### L 503.6620, L100.0100, L501.4020, L500.2500 ####[facility] [address] [place], [address] EST GFR - AA 128 mL/min Normal >60 [facility] Comment on above: Order Comment: 'TROP ' Serial specimen #1, #2 or #3: 1 Result Comment: Afri can [place] GFR Calc Performed By: #### L 503.6620, L100.0100, L501.4020, L500.2500 ####[facility] [address] [place], [address] GAP 4 Low 5-15 [facility] Comment on above: Order Comment: 'TROP ' Serial specimen #1, #2 or #3: 1 Performed By: #### L 503.6620, L100.0100, L501.4020, L500.2500 ####[facility] [address] [place], [address] GFR/1.73 sq M.predicted among non-blacks MDRD (S/P/Bld) [Vol rate/Area] 106 mL/min/{1.73_m2} Normal >60 [facility] Comment on above: Order Comment: 'TROP ' Serial specimen #1, #2 or #3: 1 Result Comment: Non- GFR Calc Performed By: #### L 503.6620, L100.0100, L501.4020, L500.2500 ####[facility] [address] [place], [address] Glucose [Mass/Vol] 146 mg/dL High 74-106 [facility] Comment on above: Order Comment: 'TROP ' Serial specimen #1, #2 or #3: 1 Result Comment: Fast ing Glucose result greater than or equal to 126 mg/dLsuggests DIABETES MELLITUS per A.D.A. criteria. Performed By: #### L 503.6620, L100.0100, L501.4020, L500.2500 ####[facility] [address] [place], [address] Potassium [Moles/Vol] 3.5 mmol/L Normal 3.5-5.1 [facility] Comment on above: Order Comment: 'TROP ' Serial specimen #1, #2 or #3: 1 Performed By: #### L 503.6620, L100.0100, L501.4020, L500.2500 ####[facility] [address] [place], [address] Sodium [Moles/Vol] 142 mmol/L Normal 136-145 [facility] Comment on above: Order Comment: 'TROP ' Serial specimen #1, #2 or #3: 1 Performed By: #### L 503.6620, L100.0100, L501.4020, L500.2500 ####[facility] [address] [place], [address] Urea nitrogen [Mass/Vol] 28 mg/dL High 7-18 [facility] Comment on above: Order Comment: 'TROP ' Serial specimen #1, #2 or #3: 1 Performed By: #### L 503.6620, L100.0100, L501.4020, L500.2500 ####[facility] [address] [place], [address] Blood Gases by [facility] 025 CONNIE TEST Positive Normal [facility] Comment on above: Performed By: #### L 9000.0800 ####[facility] [address] [place], [address] Base excess Calc (Bld) [Moles/Vol] 10 mmol/L High -2 to +2 [facility] Comment on above: Performed By: #### L 9000.0800 ####[facility] [address] [place], [address] Blood Gas Type ART Normal [facility] Comment on above: Performed By: #### L 9000.0800 ####[facility] [address] [place], [address] CO2 [Moles/Vol] 38 mmol/L Normal [facility] Comment on above: Performed By: #### L 9000.0800 ####[facility] [address] [place], [address] FI02 60.0 Normal [facility] Comment on above: Performed By: #### L 9000.0800 ####[facility] [address] [place], [address] HCO3 (Bld) [Moles/Vol] 35.7 mmol/L High 22-26 [facility] Comment on above: Performed By: #### L 9000.0800 ####[facility] [address] [place], [address] Mode Not entered Normal [facility] Comment on above: Performed By: #### L 9000.0800 ####[facility] [address] [place], [address] O2 Delivery Dev BiPAP Normal [facility] Comment on above: Performed By: #### L 9000.0800 ####[facility] [address] [place], [address] pCO2 66.3 mmHg High 35-45 [facility] Comment on above: Performed By: #### L 9000.0800 ####[facility] [address] [place], [address] PEEP 6 Normal [facility] Comment on above: Performed By: #### L 9000.0800 ####[facility] [address] [place], [address] pH (Bld) 7.34 [pH] Low 7.35-7.45 [facility] Comment on above: Performed By: #### L 9000.0800 ####[facility] [address] [place], [address] PO2 343 mmHG Invalid Interpretation Code 75-100 [facility] Comment on above: Performed By: #### L 9000.0800 ####[facility] [address] [place], [address] Read Back By Yes Normal [facility] Comment on above: Performed By: #### L 9000.0800 ####[facility] [address] [place], [address] Results To MEKA Normal [facility] Comment on above: Performed By: #### L 0.0800 ####[facility] [address] [place], [address] RR 12 Normal [facility] Comment on above: Performed By: #### L 0.0800 ####[facility] [address] [place], [address] SITE L Brach Normal [facility] Comment on above: Performed By: #### L 0.0800 ####[facility] [address] [place], [address] SO2 100 High 95-99 [facility] Comment on above: Performed By: #### L 0.0800 ####[facility] [address] [place], [address] Time Given 16:29:44 Normal [facility] Comment on above: Performed By: #### L 0.0800 ####[facility] [address] [place], [address] Blood bicarbonate measuremen tOrdered By: Julius Matthews on 10-21-2024 Blood Gas Bicarbonate Actual 35.7 mmol/L High 22-26 [facility] CBC W/Diff, Automatedon 2 Absolute Lymph 2.02 X10 3/uL Normal 0.83-4.51 [facility] Comment on above: Performed By: #### L 503.6620, L100.0100, L501.4020, L500.2500 ####[facility] [address] [place], [address] Absolute Neut 6.3 X10 3/uL Normal 2.0-7.7 [facility] Comment on above: Performed By: #### L 503.6620, L100.0100, L501.4020, L500.2500 ####[facility] [address] [place], [address] Basophils/100 WBC (Bld) 0.7 % Normal 0-1 [facility] Comment on above: Performed By: #### L 503.6620, L100.0100, L501.4020, L500.2500 ####[facility] [address] [place], [address] Eosinophils/100 WBC (Bld) 7.3 % High 0-5 [facility] Comment on above: Performed By: #### L 503.6620, L100.0100, L501.4020, L500.2500 ####[facility] [address] [place], [address] Erythrocyte distribution width (RBC) [Ratio] 12.6 % Normal 11.6-14.6 [facility] Comment on above: Performed By: #### L 503.6620, L100.0100, L501.4020, L500.2500 ####[facility] [address] [place], [address] Hematocrit (Bld) [Volume fraction] 41.5 % Normal 40-54 [facility] Comment on above: Performed By: #### L 503.6620, L100.0100, L501.4020, L500.2500 ####[facility] [address] [place], [address] Hemoglobin (Bld) [Mass/Vol] 13.8 g/dL Normal 13.0-16.5 [facility] Comment on above: Performed By: #### L 503.6620, L100.0100, L501.4020, L500.2500 ####[facility] [address] [place], [address] IG% 0.200 Normal 0.0-0.9 [facility] Comment on above: Result Comment: IG% - Immature Granulocytes (promyelocytes, myelocytes andmetamyelocytes) > 1% indicates that a LEFT SHIFT is Present. Performed By: #### L 503.6620, L100.0100, L501.4020, L500.2500 ####[facility] [address] [place], [address] Lymphocytes/100 WBC (Bld) 20.6 % Normal 19-41 [facility] Comment on above: Performed By: #### L 503.6620, L100.0100, L501.4020, L500.2500 ####[facility] [address] [place], [address] MCH (RBC) [Entitic mass] 31.7 pg Normal 27.0-32.0 [facility] Comment on above: Performed By: #### L 503.6620, L100.0100, L501.4020, L500.2500 ####[facility] [address] [place], [address] MCHC (RBC) [Mass/Vol] 33.3 g/dL Normal 32-36 [facility] Comment on above: Performed By: #### L 503.6620, L100.0100, L501.4020, L500.2500 ####[facility] [address] [place], [address] MCV (RBC) [Entitic vol] 95.4 fL High 80-94 [facility] Comment on above: Performed By: #### L 503.6620, L100.0100, L501.4020, L500.2500 ####[facility] [address] [place], [address] Monocytes/100 WBC (Bld) 6.9 % Normal 0-10 [facility] Comment on above: Performed By: #### L 503.6620, L100.0100, L501.4020, L500.2500 ####[facility] [address] [place], [address] Neutrophils/100 WBC (Bld) 64.3 % Normal 47-70 [facility] Comment on above: Performed By: #### L 503.6620, L100.0100, L501.4020, L500.2500 ####[facility] [address] [place], [address] Nucleated RBC (Bld) [#/Vol] 0 10*3/uL Normal 0-5 [facility] Comment on above: Performed By: #### L 503.6620, L100.0100, L501.4020, L500.2500 ####[facility] [address] [place], [address] Platelet mean volume (Bld) [Entitic vol] 9.3 fL Normal 6.2-12.0 [facility] Comment on above: Performed By: #### L 503.6620, L100.0100, L501.4020, L500.2500 ####[facility] [address] [place], [address] Platelets (Bld) [#/Vol] 362 10*3/uL Normal 150-450 [facility] Comment on above: Performed By: #### L 503.6620, L100.0100, L501.4020, L500.2500 ####[facility] [address] [place], [address] RBC (Bld) [#/Vol] 4.35 10*6/uL Low 4.6-6.2 [facility] Comment on above: Performed By: #### L 503.6620, L100.0100, L501.4020, L500.2500 ####[facility] [address] [place], [address] RDW SD 44.6 fl High 35.1-43.9 [facility] Comment on above: Performed By: #### L 503.6620, L100.0100, L501.4020, L500.2500 ####[facility] [address] [place], [address] WBC (Bld) [#/Vol] 9.8 10*3/uL Normal 4.4-11.0 [facility] Comment on above: Performed By: #### L 503.6620, L100.0100, L501.4020, L500.2500 ####[facility] [address] [place], [address] CTA Chest W/WO Contraston CTA Chest W/WO Contrast Normal [facility] Chest 1 View (Portable)on Chest 1 View (Portable) Normal [facility] D-Dimer Quantitative (DVT/PE )on 10-21-2024 D-DIMER QUANT 1.14 FEU/ug/m Invalid Interpretation Code 0.27-0.49 [facility] Comment on above: Result Comment: D-Di edouard ELEVATED (>0.49): Additional studies and clinicalassessments are indicated to conclude diagnosis of:Deep Vein Thrombosis (DVT) or Pulmonary Embolism (PE)RESULTS CALLED TO ALEJANDRO 10/21/24 Becky Dias.REPORT READ BACK BY . SAME Performed By: #### L 300.8000 ####[facility] [address] [place], [address] D-dimer measurement for deep venous thrombosisOrdered By: Julius Matthews on 10-21-2024 D-Dimer Quantitative (PE/DVT) 1.14 FEU/ug/m High 0.27-0.49 [facility] Comment on above: D-Dimer ELEVATED (>0 .49): Additional studies and clinicalassessments are indicated to conclude diagnosis of:Deep Vein Thrombosis (DVT) or Pulmonary Embolism (PE)RESULTS CALLED TO ALEJANDRO 10/21/24 Becky Dias.REPORT READ BACK BY . SAME Determination of fraction of inspired oxygenOrdered By: Julius Matthews on 10-21-2024 Blood Gas Oxygen Percent 60.0 [facility] Emergency Department Summary on 10-21-2024 Emergency Department Summary Normal [facility] Influenza virus A and B and SARS-CoV-2 (COVID-19) and Respiratory syncytial virus RNAOrdered By: Julius Matthews on 10-21-2024 SARS-CoV-2 (COVID-19) RNA WES+probe Ql (Unsp spec) [facility] L501.4020on 10-21-2024 TROPONIN-I HS 8 pg/mL Normal 3.0-78.0 [facility] Comment on above: Order Comment: 'TROP ' Serial specimen #1, #2 or #3: 1 Result Comment: Plea se Note: New Test Units and Gender Specific Reference Ranges. For more information see Policy Stat Procedure [place] High Sensitivity Troponin (TNIH) and attachments. Performed By: #### L 503.6620, L100.0100, L501.4020, L500.2500 ####[facility] [address] [place], [address] M100.678on 10-21-2024 M100.678 Pending SARS-CoV-2 (COVID 19) Negative INFLUENZA A Negative INFLUENZA B Negative RSV PCR Negative Normal [facility] Comment on above: Performed By: #### M 100.678 ####[facility] [address] [place], [address] No Panel InformationOrdered By: Julius Matthews on 10-21-2024 Bedside Blood Gas PEEP 6 [facility] Bld Gas Crit Called To/Read Back By Yes [facility] Blood Gas Notified Time 16:29:44 [facility] Blood Gas Notified Whom MEKA [facility] Blood Gas Respiration Rate 12 [facility] Blood Gas Sample Site L Brach [facility] Blood Gas Specimen Type ART [facility] Blood Gas Vent Mode Not entered [facility] Oxygen Delivery Device BiPAP [facility] Oxygen saturation measuremen tOrdered By: Julius Matthews on 10-21-2024 Blood Gas Oxygen Saturation 100 % High 95-99 [facility] Partial pressure of carbon d ioxide measurementOrdered By: Julius Matthews on 10-21-2024 Arterial Blood Partial Pressure CO2 66.3 mmHg High 35-45 [facility] Partial pressure of oxygen m easurementOrdered By: Julius Matthews on 10-21-2024 Arterial Blood Partial Pressure O2 343 mmHG High 75-100 [facility] Total carbon dioxide measure mentOrdered By: Julius Matthews on 10-21-2024 Blood Gas Total CO2 38 mmol/L [facility] Troponin IOrdered By: Julius Matthews on 10-21-2024 Troponin I High Sensitivity 8 pg/mL 3.0-78.0 [facility] Comment on above: Please Note: New Rubi t Units and Gender Specific Reference Ranges. For more information see Policy Stat Procedure [place] High Sensitivity Troponin (TNIH) and attachments. pH (Unsp spec)Ordered By: Benitez Matthews on 10-21-2024 Blood Gas pH 7.34 Low 7.35-7.45 [facility] 12 Lead EKGon 09-19-2024 12 Lead EKG Normal [facility] Absolute neutrophil countOrd ered By: Troy Monsalve on 09-19-2024 Neutrophils (Bld) [#/Vol] 6.3 10*3/uL 2.0-7.7 [facility] Basic Metabolic Profile (BMP )on 09-19-2024 BUN/CRE 24.0 RATIO High 10-20 [facility] Comment on above: Performed By: #### L 100.0100, L500.2500 ####[facility] [address] [place], [address] CA,Total 9.2 mg/dL Normal 8.5-10.1 [facility] Comment on above: Performed By: #### L 100.0100, L500.2500 ####[facility] [address] [place], [address] Chloride [Moles/Vol] 103 mmol/L Normal 98-107 [facility] Comment on above: Performed By: #### L 100.0100, L500.2500 ####[facility] [address] [place], [address] CO2 [Moles/Vol] 31.0 mmol/L Normal 21.0-32.0 [facility] Comment on above: Performed By: #### L 100.0100, L500.2500 ####[facility] [address] [place], [address] Creatinine [Mass/Vol] 0.75 mg/dL Normal 0.70-1.30 [facility] Comment on above: Result Comment: The validity of the calculated GFR GFRAA in patients over70 years has not been determined. Clinical correlation isessential. Performed By: #### L 100.0100, L500.2500 ####[facility] [address] [place], [address] ECRCL 112.61 ml/min Normal [facility] Comment on above: Performed By: #### L 100.0100, L500.2500 ####[facility] [address] [place], [address] EST GFR - AA 142 mL/min Normal >60 [facility] Comment on above: Result Comment: Afri can [place] GFR Calc Performed By: #### L 100.0100, L500.2500 ####[facility] [address] [place], [address] GAP 3 Low 5-15 [facility] Comment on above: Performed By: #### L 100.0100, L500.2500 ####[facility] [address] [place], [address] GFR/1.73 sq M.predicted among non-blacks MDRD (S/P/Bld) [Vol rate/Area] 118 mL/min/{1.73_m2} Normal >60 [facility] Comment on above: Result Comment: Non- GFR Calc Performed By: #### L 100.0100, L500.2500 ####[facility] [address] [place], [address] Glucose [Mass/Vol] 101 mg/dL Normal 74-106 [facility] Comment on above: Result Comment: Fast ing Glucose result from 100 to 125 mg/dLsuggests IMPAIRED HOMEOSTASIS per A.D.A. criteria. Performed By: #### L 100.0100, L500.2500 ####[facility] [address] [place], [address] Potassium [Moles/Vol] 4.1 mmol/L Normal 3.5-5.1 [facility] Comment on above: Performed By: #### L 100.0100, L500.2500 ####[facility] [address] [place], [address] Sodium [Moles/Vol] 137 mmol/L Normal 136-145 [facility] Comment on above: Performed By: #### L 100.0100, L500.2500 ####[facility] [address] [place], [address] Urea nitrogen [Mass/Vol] 18 mg/dL Normal 7-18 [facility] Comment on above: Performed By: #### L 100.0100, L500.2500 ####[facility] [address] [place], [address] Basophil percentageOrdered B y: Troy Monsalve on 09-19-2024 Basophils/100 WBC (Bld) 1.0 % 0-1 [facility] Blood urea nitrogen (BUN)/cr eatinine ratioOrdered By: Troy Monsalve on 09-19-2024 Urea nitrogen/Creatinine [Mass ratio] 24.0 mg/mg High 10-20 [facility] CBC W/Diff, Automatedon - Absolute Lymph 1.48 X10 3/uL Normal 0.83-4.51 [facility] Comment on above: Performed By: #### L 100.0100, L500.2500 ####[facility] [address] [place], [address] Absolute Neut 6.3 X10 3/uL Normal 2.0-7.7 [facility] Comment on above: Performed By: #### L 100.0100, L500.2500 ####[facility] [address] [place], [address] Basophils/100 WBC (Bld) 1.0 % Normal 0-1 [facility] Comment on above: Performed By: #### L 100.0100, L500.2500 ####[facility] [address] [place], [address] Eosinophils/100 WBC (Bld) 7.1 % High 0-5 [facility] Comment on above: Performed By: #### L 100.0100, L500.2500 ####[facility] [address] [place], [address] Erythrocyte distribution width (RBC) [Ratio] 12.6 % Normal 11.6-14.6 [facility] Comment on above: Performed By: #### L 100.0100, L500.2500 ####[facility] [address] [place], [address] Hematocrit (Bld) [Volume fraction] 43.7 % Normal 40-54 [facility] Comment on above: Performed By: #### L 100.0100, L500.2500 ####[facility] [address] [place], [address] Hemoglobin (Bld) [Mass/Vol] 14.5 g/dL Normal 13.0-16.5 [facility] Comment on above: Performed By: #### L 100.0100, L500.2500 ####[facility] [address] [place], [address] IG% 0.300 Normal 0.0-0.9 [facility] Comment on above: Result Comment: IG% - Immature Granulocytes (promyelocytes, myelocytes andmetamyelocytes) > 1% indicates that a LEFT SHIFT is Present. Performed By: #### L 100.0100, L500.2500 ####[facility] [address] [place], [address] Lymphocytes/100 WBC (Bld) 16.2 % Low 19-41 [facility] Comment on above: Performed By: #### L 100.0100, L500.2500 ####[facility] [address] [place], [address] MCH (RBC) [Entitic mass] 31.4 pg Normal 27.0-32.0 [facility] Comment on above: Performed By: #### L 100.0100, L500.2500 ####[facility] [address] [place], [address] MCHC (RBC) [Mass/Vol] 33.2 g/dL Normal 32-36 [facility] Comment on above: Performed By: #### L 100.0100, L500.2500 ####[facility] [address] [place], [address] MCV (RBC) [Entitic vol] 94.6 fL High 80-94 [facility] Comment on above: Performed By: #### L 100.0100, L500.2500 ####[facility] [address] [place], [address] Monocytes/100 WBC (Bld) 6.6 % Normal 0-10 [facility] Comment on above: Performed By: #### L 100.0100, L500.2500 ####[facility] [address] [place], [address] Neutrophils/100 WBC (Bld) 68.8 % Normal 47-70 [facility] Comment on above: Performed By: #### L 100.0100, L500.2500 ####[facility] [address] [place], [address] Nucleated RBC (Bld) [#/Vol] 0 10*3/uL Normal 0-5 [facility] Comment on above: Performed By: #### L 100.0100, L500.2500 ####[facility] [address] [place], [address] Platelet mean volume (Bld) [Entitic vol] 9.4 fL Normal 6.2-12.0 [facility] Comment on above: Performed By: #### L 100.0100, L500.2500 ####[facility] [address] [place], [address] Platelets (Bld) [#/Vol] 302 10*3/uL Normal 150-450 [facility] Comment on above: Performed By: #### L 100.0100, L500.2500 ####[facility] [address] [place], [address] RBC (Bld) [#/Vol] 4.62 10*6/uL Normal 4.6-6.2 [facility] Comment on above: Performed By: #### L 100.0100, L500.2500 ####[facility] [address] [place], [address] RDW SD 43.4 fl Normal 35.1-43.9 [facility] Comment on above: Performed By: #### L 100.0100, L500.2500 ####[facility] [address] [place], [address] WBC (Bld) [#/Vol] 9.1 10*3/uL Normal 4.4-11.0 [facility] Comment on above: Performed By: #### L 100.0100, L500.2500 ####[facility] [address] [place], [address] Carbon dioxide measurementOr dered By: Troy Monsalve on 09-19-2024 CO2 [Moles/Vol] 31.0 mmol/L 21.0-32.0 [facility] Chest PA and Lateralon 09-19 Chest PA and Lateral Normal [facility] Chloride measurementOrdered By: Troy Monsalve on 09-19-2024 Chloride [Moles/Vol] 103 mmol/L 98-107 [facility] Emergency Department Summary on 09-19-2024 Emergency Department Summary Normal [facility] Eosinophil percentageOrdered By: Troy Monsalve on 09-19-2024 Eosinophils/100 WBC (Bld) 7.1 % High 0-5 [facility] Erythrocyte distribution wid th ratioOrdered By: Troy Monsalve on 09-19-2024 Erythrocyte distribution width (RBC) [Ratio] 12.6 % 11.6-14.6 [facility] Erythrocyte distribution wid th standard deviationOrdered By: Troy Monsalve on 09-19-2024 Erythrocyte distribution width (RBC) [Entitic vol] 43.4 fL 35.1-43.9 [facility] Estimated glomerular filtrat ion rate (GFR) AmericanOrdered By: Troy Monsalve on 09-19-2024 Estimated GFR (MDRD) Amer 142 mL/min >60 [facility] Comment on above: GFR Calc Estimation of creatinine akbar aranceOrdered By: Troy Monsalve on 09-19-2024 Estimated Creatinine Clearance Calc 112.61 ml/min [facility] Glomerular filtration rate ( GFR) estimationOrdered By: Troy Monsalve on 09-19-2024 Estimated GFR (MDRD) Non-Af Amer 118 mL/min >60 [facility] Comment on above: Non- GFR Calc Glucose measurementOrdered B y: Troy Monsalve on 09-19-2024 Glucose [Mass/Vol] 101 mg/dL 74-106 [facility] Comment on above: Fasting Glucose resu lt from 100 to 125 mg/dL suggests IMPAIRED HOMEOSTASIS per A.D.A. criteria. Hematocrit Auto (Bld) [Volum e fraction]Ordered By: Troy Monsalve on 09-19-2024 Hematocrit (Bld) [Volume fraction] 43.7 % 40-54 [facility] Hemoglobin measurementOrdere d By: Troy Monsalve on 09-19-2024 Hemoglobin (Bld) [Mass/Vol] 14.5 g/dL 13.0-16.5 [facility] Immature granulocytes/100 WB C Auto (Bld)Ordered By: Troy Monsalve on 09-19-2024 Immature granulocytes/100 WBC (Bld) 0.300 % 0.0-0.9 [facility] Comment on above: IG% - Immature Granu locytes (promyelocytes, myelocytes and metamyelocytes) > 1% indicates that a LEFT SHIFT is Present. Lymphocytes Auto (Unsp spec) [#/Vol]Ordered By: Troy Monsalve on 09-19-2024 Lymphocytes (Bld) [#/Vol] 1.48 10*3/uL 0.83-4.51 [facility] Lymphocytes/100 WBC Auto (Un sp spec)Ordered By: Troy Monsalve on 09-19-2024 Lymphocytes/100 WBC (Bld) 16.2 % Low 19-41 [facility] MCV (mean corpuscular volume ) determinationOrdered By: Troy Monsalve on 09-19-2024 MCV (RBC) [Entitic vol] 94.6 fL High 80-94 [facility] Mean corpuscular hemoglobin (MCH) determinationOrdered By: Troy Monsalve on 09-19-2024 MCH (RBC) [Entitic mass] 31.4 pg 27.0-32.0 [facility] Mean corpuscular hemoglobin concentration (MCHC) determinationOrdered By: Troy Monsalve on 09-19-2024 MCHC (RBC) [Mass/Vol] 33.2 g/dL 32-36 [facility] Mean platelet volume determi nationOrdered By: Troy Monsalve on 09-19-2024 Platelet mean volume (Bld) [Entitic vol] 9.4 fL 6.2-12.0 [facility] Monocyte percentageOrdered B y: Troy Monsalve on 09-19-2024 Monocytes/100 WBC (Bld) 6.6 % 0-10 [facility] Neutrophil percentageOrdered By: Troy Monsalve on 09-19-2024 Neutrophils/100 WBC (Bld) 68.8 % 47-70 [facility] Nucleated red blood cell per centageOrdered By: Troy Monsalve on 09-19-2024 Nucleated RBC/100 WBC (Bld) [Ratio] 0 % 0-5 [facility] Platelet countOrdered By: Malia Monsalve on 09-19-2024 Platelets (Bld) [#/Vol] 302 10*3/uL 150-450 [facility] Potassium measurementOrdered By: Troy Monsalve on 09-19-2024 Potassium [Moles/Vol] 4.1 mmol/L 3.5-5.1 [facility] RBC Auto (Bld) [#/Vol]Ordere d By: Troy Monsalve on 09-19-2024 RBC (Bld) [#/Vol] 4.62 10*6/uL 4.6-6.2 [facility] Serum anion gap measurementO rdered By: Troy Monsalve on 09-19-2024 Anion gap [Moles/Vol] 3 mmol/L Low 5-15 [facility] Serum or plasma calcium micah urement (mass/volume)Ordered By: Troy Monsalve on 09-19-2024 Calcium [Mass/Vol] 9.2 mg/dL 8.5-10.1 [facility] Serum or plasma creatinine m easurement (mass/volume)Ordered By: Troy Monsalve on 09-19-2024 Creatinine [Mass/Vol] 0.75 mg/dL 0.70-1.30 [facility] Comment on above: The validity of the calculated GFR & GFRAA in patients over 70 years has not been determined. Clinical correlation is essential. Serum or plasma urea nitroge n measurement (mass/volume)Ordered By: Troy Monsalve on 09-19-2024 Urea nitrogen [Mass/Vol] 18 mg/dL 7-18 [facility] Sodium levelOrdered By: Troy Monsalve on 09-19-2024 Sodium [Moles/Vol] 137 mmol/L 136-145 [facility] White blood cell (WBC) count Ordered By: Troy Monsalve on 09-19-2024 WBC (Bld) [#/Vol] 9.1 10*3/uL 4.4-11.0 [facility] 12 Lead EKGon 09-07-2024 12 Lead EKG Normal [facility] Absolute neutrophil countOrd ered By: Julius Matthews on 09-07-2024 Neutrophils (Bld) [#/Vol] 3.2 10*3/uL 2.0-7.7 [facility] Basic Metabolic Profile (BMP )on 09-07-2024 BUN/CRE 21.6 RATIO High 10-20 [facility] Comment on above: Order Comment: 'TROP ' Serial specimen #1, #2 or #3: 1 Performed By: #### L 500.2500, L501.4020, L100.0100 ####[facility] [address] [place], [address] CA,Total 9.1 mg/dL Normal 8.5-10.1 [facility] Comment on above: Order Comment: 'TROP ' Serial specimen #1, #2 or #3: 1 Performed By: #### L 500.2500, L501.4020, L100.0100 ####[facility] [address] [place], [address] Chloride [Moles/Vol] 109 mmol/L High 98-107 [facility] Comment on above: Order Comment: 'TROP ' Serial specimen #1, #2 or #3: 1 Performed By: #### L 500.2500, L501.4020, L100.0100 ####[facility] [address] [place], [address] CO2 [Moles/Vol] 28.0 mmol/L Normal 21.0-32.0 [facility] Comment on above: Order Comment: 'TROP ' Serial specimen #1, #2 or #3: 1 Performed By: #### L 500.2500, L501.4020, L100.0100 ####[facility] [address] [place], [address] Creatinine [Mass/Vol] 0.83 mg/dL Normal 0.70-1.30 [facility] Comment on above: Order Comment: 'TROP ' Serial specimen #1, #2 or #3: 1 Result Comment: The validity of the calculated GFR GFRAA in patients over70 years has not been determined. Clinical correlation isessential. Performed By: #### L 500.2500, L501.4020, L100.0100 ####[facility] [address] [place], [address] ECRCL 91.48 ml/min Normal [facility] Comment on above: Order Comment: 'TROP ' Serial specimen #1, #2 or #3: 1 Performed By: #### L 500.2500, L501.4020, L100.0100 ####[facility] [address] [place], [address] EST GFR - AA 126 mL/min Normal >60 [facility] Comment on above: Order Comment: 'TROP ' Serial specimen #1, #2 or #3: 1 Result Comment: Afri can [place] GFR Calc Performed By: #### L 500.2500, L501.4020, L100.0100 ####[facility] [address] [place], [address] GAP 4 Low 5-15 [facility] Comment on above: Order Comment: 'TROP ' Serial specimen #1, #2 or #3: 1 Performed By: #### L 500.2500, L501.4020, L100.0100 ####[facility] [address] [place], [address] GFR/1.73 sq M.predicted among non-blacks MDRD (S/P/Bld) [Vol rate/Area] 105 mL/min/{1.73_m2} Normal >60 [facility] Comment on above: Order Comment: 'TROP ' Serial specimen #1, #2 or #3: 1 Result Comment: Non- GFR Calc Performed By: #### L 500.2500, L501.4020, L100.0100 ####[facility] [address] [place], [address] Glucose [Mass/Vol] 105 mg/dL Normal 74-106 [facility] Comment on above: Order Comment: 'TROP ' Serial specimen #1, #2 or #3: 1 Result Comment: Fast ing Glucose result from 100 to 125 mg/dLsuggests IMPAIRED HOMEOSTASIS per A.D.A. criteria. Performed By: #### L 500.2500, L501.4020, L100.0100 ####[facility] [address] [place], [address] Potassium [Moles/Vol] 3.8 mmol/L Normal 3.5-5.1 [facility] Comment on above: Order Comment: 'TROP ' Serial specimen #1, #2 or #3: 1 Performed By: #### L 500.2500, L501.4020, L100.0100 ####[facility] [address] [place], [address] Sodium [Moles/Vol] 142 mmol/L Normal 136-145 [facility] Comment on above: Order Comment: 'TROP ' Serial specimen #1, #2 or #3: 1 Performed By: #### L 500.2500, L501.4020, L100.0100 ####[facility] [address] [place], [address] Urea nitrogen [Mass/Vol] 18 mg/dL Normal 7-18 [facility] Comment on above: Order Comment: 'TROP ' Serial specimen #1, #2 or #3: 1 Performed By: #### L 500.2500, L501.4020, L100.0100 ####[facility] [address] [place], [address] Basophil percentageOrdered B y: Julius Matthews on 09-07-2024 Basophils/100 WBC (Bld) 0.9 % 0-1 [facility] Blood urea nitrogen (BUN)/cr eatinine ratioOrdered By: Julius Matthews on 09-07-2024 Urea nitrogen/Creatinine [Mass ratio] 21.6 mg/mg High 10-20 [facility] CBC W/Diff, Automatedon - Absolute Lymph 1.14 X10 3/uL Normal 0.83-4.51 [facility] Comment on above: Performed By: #### L 500.2500, L501.4020, L100.0100 ####[facility] [address] [place], [address] Absolute Neut 3.2 X10 3/uL Normal 2.0-7.7 [facility] Comment on above: Performed By: #### L 500.2500, L501.4020, L100.0100 ####[facility] [address] [place], [address] Basophils/100 WBC (Bld) 0.9 % Normal 0-1 [facility] Comment on above: Performed By: #### L 500.2500, L501.4020, L100.0100 ####[facility] [address] [place], [address] Eosinophils/100 WBC (Bld) 11.8 % High 0-5 [facility] Comment on above: Performed By: #### L 500.2500, L501.4020, L100.0100 ####[facility] [address] [place], [address] Erythrocyte distribution width (RBC) [Ratio] 12.5 % Normal 11.6-14.6 [facility] Comment on above: Performed By: #### L 500.2500, L501.4020, L100.0100 ####[facility] [address] [place], [address] Hematocrit (Bld) [Volume fraction] 41.1 % Normal 40-54 [facility] Comment on above: Performed By: #### L 500.2500, L501.4020, L100.0100 ####[facility] [address] [place], [address] Hemoglobin (Bld) [Mass/Vol] 13.8 g/dL Normal 13.0-16.5 [facility] Comment on above: Performed By: #### L 500.2500, L501.4020, L100.0100 ####[facility] [address] [place], [address] IG% 0.400 Normal 0.0-0.9 [facility] Comment on above: Result Comment: IG% - Immature Granulocytes (promyelocytes, myelocytes andmetamyelocytes) > 1% indicates that a LEFT SHIFT is Present. Performed By: #### L 500.2500, L501.4020, L100.0100 ####[facility] [address] [place], [address] Lymphocytes/100 WBC (Bld) 21.1 % Normal 19-41 [facility] Comment on above: Performed By: #### L 500.2500, L501.4020, L100.0100 ####[facility] [address] [place], [address] MCH (RBC) [Entitic mass] 31.8 pg Normal 27.0-32.0 [facility] Comment on above: Performed By: #### L 500.2500, L501.4020, L100.0100 ####[facility] [address] [place], [address] MCHC (RBC) [Mass/Vol] 33.6 g/dL Normal 32-36 [facility] Comment on above: Performed By: #### L 500.2500, L501.4020, L100.0100 ####[facility] [address] [place], [address] MCV (RBC) [Entitic vol] 94.7 fL High 80-94 [facility] Comment on above: Performed By: #### L 500.2500, L501.4020, L100.0100 ####[facility] [address] [place], [address] Monocytes/100 WBC (Bld) 7.4 % Normal 0-10 [facility] Comment on above: Performed By: #### L 500.2500, L501.4020, L100.0100 ####[facility] [address] [place], [address] Neutrophils/100 WBC (Bld) 58.4 % Normal 47-70 [facility] Comment on above: Performed By: #### L 500.2500, L501.4020, L100.0100 ####[facility] [address] [place], [address] Nucleated RBC (Bld) [#/Vol] 0 10*3/uL Normal 0-5 [facility] Comment on above: Performed By: #### L 500.2500, L501.4020, L100.0100 ####[facility] [address] [place], [address] Platelet mean volume (Bld) [Entitic vol] 9.3 fL Normal 6.2-12.0 [facility] Comment on above: Performed By: #### L 500.2500, L501.4020, L100.0100 ####[facility] [address] [place], [address] Platelets (Bld) [#/Vol] 327 10*3/uL Normal 150-450 [facility] Comment on above: Performed By: #### L 500.2500, L501.4020, L100.0100 ####[facility] [address] [place], [address] RBC (Bld) [#/Vol] 4.34 10*6/uL Low 4.6-6.2 [facility] Comment on above: Performed By: #### L 500.2500, L501.4020, L100.0100 ####[facility] [address] [place], [address] RDW SD 43.4 fl Normal 35.1-43.9 [facility] Comment on above: Performed By: #### L 500.2500, L501.4020, L100.0100 ####[facility] [address] [place], [place], [address] WBC (Bld) [#/Vol] 5.4 10*3/uL Normal 4.4-11.0 [facility] Comment on above: Performed By: #### L 500.2500, L501.4020, L100.0100 ####[facility] [address] [facility] [place], [address] Carbon dioxide measurementOr dered By: Julius Matthews on 09-07-2024 CO2 [Moles/Vol] 28.0 mmol/L 21.0-32.0 [facility] Chest 1 View (Portable)on Chest 1 View (Portable) Normal [facility] Chloride measurementOrdered By: Julius Matthews on 09-07-2024 Chloride [Moles/Vol] 109 mmol/L High 98-107 [facility] Emergency Department Summary on 09-07-2024 Emergency Department Summary Normal [facility] Eosinophil percentageOrdered By: Julius Matthews on 09-07-2024 Eosinophils/100 WBC (Bld) 11.8 % High 0-5 [facility] Erythrocyte distribution wid th ratioOrdered By: Julius Matthews on 09-07-2024 Erythrocyte distribution width (RBC) [Ratio] 12.5 % 11.6-14.6 [facility] Erythrocyte distribution wid th standard deviationOrdered By: Julius Matthews on 09-07-2024 Erythrocyte distribution width (RBC) [Entitic vol] 43.4 fL 35.1-43.9 [facility] Estimated glomerular filtrat ion rate (GFR) AmericanOrdered By: Julius Matthews on 09-07-2024 Estimated GFR (MDRD) Amer 126 mL/min >60 [facility] Comment on above: GFR Calc Estimation of creatinine akbar aranceOrdered By: Julius Matthews on 09-07-2024 Estimated Creatinine Clearance Calc 91.48 ml/min [facility] Glomerular filtration rate ( GFR) estimationOrdered By: Julius Matthews on 09-07-2024 Estimated GFR (MDRD) Non-Af Amer 105 mL/min >60 [facility] Comment on above: Non- GFR Calc Glucose measurementOrdered B y: Julius Matthews on 09-07-2024 Glucose [Mass/Vol] 105 mg/dL 74-106 [facility] Comment on above: Fasting Glucose resu lt from 100 to 125 mg/dL suggests IMPAIRED HOMEOSTASIS per A.D.A. criteria. Hematocrit Auto (Bld) [Volum e fraction]Ordered By: Julius Matthews on 09-07-2024 Hematocrit (Bld) [Volume fraction] 41.1 % 40-54 [facility] Hemoglobin measurementOrdere d By: Julius Matthews on 09-07-2024 Hemoglobin (Bld) [Mass/Vol] 13.8 g/dL 13.0-16.5 [facility] Immature granulocytes/100 WB C Auto (Bld)Ordered By: Julius Matthews on 09-07-2024 Immature granulocytes/100 WBC (Bld) 0.400 % 0.0-0.9 [facility] Comment on above: IG% - Immature Granu locytes (promyelocytes, myelocytes and metamyelocytes) > 1% indicates that a LEFT SHIFT is Present. Influenza virus A and B and SARS-CoV-2 (COVID-19) and Respiratory syncytial virus RNAOrdered By: Julius Matthews on 09-07-2024 SARS-CoV-2 (COVID-19) RNA WES+probe Ql (Unsp spec) [facility] L501.4020on 09-07-2024 TROPONIN-I HS 6 pg/mL Normal 3.0-78.0 [facility] Comment on above: Order Comment: 'TROP ' Serial specimen #1, #2 or #3: 1 Result Comment: Pletripp aparicio Note: New Test Units and Gender Specific Reference Ranges. For more information see Policy Stat Procedure [place] High Sensitivity Troponin (TNIH) and attachments. Performed By: #### L 500.2500, L501.4020, L100.0100 ####[facility] [address] [place], [address] Lymphocytes Auto (Unsp spec) [#/Vol]Ordered By: Julius Matthews on 09-07-2024 Lymphocytes (Bld) [#/Vol] 1.14 10*3/uL 0.83-4.51 [facility] Lymphocytes/100 WBC Auto (Un sp spec)Ordered By: Julius Matthews on 09-07-2024 Lymphocytes/100 WBC (Bld) 21.1 % 19-41 [facility] M100.678on 09-07-2024 M100.678 Pending SARS-CoV-2 (COVID 19) Negative INFLUENZA A Negative INFLUENZA B Negative RSV PCR Negative Normal [facility] Comment on above: Performed By: #### M 100.678 ####[facility] [address] [place], [address] MCV (mean corpuscular volume ) determinationOrdered By: Julius Matthews on 09-07-2024 MCV (RBC) [Entitic vol] 94.7 fL High 80-94 [facility] Mean corpuscular hemoglobin (MCH) determinationOrdered By: Julius Matthews on 09-07-2024 MCH (RBC) [Entitic mass] 31.8 pg 27.0-32.0 [facility] Mean corpuscular hemoglobin concentration (MCHC) determinationOrdered By: Julius Matthews on 09-07-2024 MCHC (RBC) [Mass/Vol] 33.6 g/dL 32-36 [facility] Mean platelet volume determi nationOrdered By: Julius Matthews on 09-07-2024 Platelet mean volume (Bld) [Entitic vol] 9.3 fL 6.2-12.0 [facility] Monocyte percentageOrdered B y: Julius Matthews on 09-07-2024 Monocytes/100 WBC (Bld) 7.4 % 0-10 [facility] Neutrophil percentageOrdered By: Julius Matthews on 09-07-2024 Neutrophils/100 WBC (Bld) 58.4 % 47-70 [facility] Nucleated red blood cell per centageOrdered By: Julius Matthews on 09-07-2024 Nucleated RBC/100 WBC (Bld) [Ratio] 0 % 0-5 [facility] Platelet countOrdered By: Benitez Matthews on 09-07-2024 Platelets (Bld) [#/Vol] 327 10*3/uL 150-450 [facility] Potassium measurementOrdered By: Julius Matthews on 09-07-2024 Potassium [Moles/Vol] 3.8 mmol/L 3.5-5.1 [facility] RBC Auto (Bld) [#/Vol]Ordere d By: Julius Matthews on 09-07-2024 RBC (Bld) [#/Vol] 4.34 10*6/uL Low 4.6-6.2 [facility] Serum anion gap measurementO rdered By: Julius Matthews on 09-07-2024 Anion gap [Moles/Vol] 4 mmol/L Low 5-15 [facility] Serum or plasma calcium micah urement (mass/volume)Ordered By: Julius Matthews on 09-07-2024 Calcium [Mass/Vol] 9.1 mg/dL 8.5-10.1 [facility] Serum or plasma creatinine m easurement (mass/volume)Ordered By: Julius Matthews on 09-07-2024 Creatinine [Mass/Vol] 0.83 mg/dL 0.70-1.30 [facility] Comment on above: The validity of the calculated GFR & GFRAA in patients over 70 years has not been determined. Clinical correlation is essential. Serum or plasma urea nitroge n measurement (mass/volume)Ordered By: Julius Matthews on 09-07-2024 Urea nitrogen [Mass/Vol] 18 mg/dL 7-18 [facility] Sodium levelOrdered By: Connie Matthews on 09-07-2024 Sodium [Moles/Vol] 142 mmol/L 136-145 [facility] Troponin IOrdered By: Julius Matthews on 09-07-2024 Troponin I High Sensitivity 6 pg/mL 3.0-78.0 [facility] Comment on above: Please Note: New Rubi t Units and Gender Specific Reference Ranges. For more information see Policy Stat Procedure [place] High Sensitivity Troponin (TNIH) and attachments. White blood cell (WBC) count Ordered By: Julius Matthews on 09-07-2024 WBC (Bld) [#/Vol] 5.4 10*3/uL 4.4-11.0 [facility] Emergency Department Summary on 08-04-2024 Emergency Department Summary Normal [facility] Foot min 3 Viewson 4 Foot min 3 Views Normal [facility] Emergency Department Summary on 06-03-2024 Emergency Department Summary Normal [facility] Emergency Department Summary on 06-02-2024 Emergency Department Summary Normal [facility] Absolute lymphocyte countOrd ered By: Tae Walsh on 10-29-2023 Lymphocytes Auto (Unsp spec) [#/Vol] 1.38 10*3/uL 0.83-4.51 [facility] Automated lymphocyte count a s percentage of total leukocytesOrdered By: Tae Walsh on 10-29-2023 Lymphocytes/100 WBC Auto (Unsp spec) 14.6 % 19-41 [facility] Basophil percentageOrdered B y: White on 10-29-2023 Basophil percentage 4.9 mg/dL 2.5-4.9 [facility] Basophil percentageOrdered B y: Taelacey Walsh on 10-29-2023 Basophils/100 WBC (Bld) 0.6 % 0-1 [facility] Bilirubin [Mass/Vol] 0.60 mg/dL 0.20-1.00 [facility] Comment on above: For patients on eltr ombopag therapy, use of Dimension [place] TBIL is not recommended. Chloride [Moles/Vol] 100 mmol/L 98-107 [facility] Eosinophils/100 WBC (Bld) 1.6 % 0-5 [facility] Glucose [Mass/Vol] 82 mg/dL 74-106 [facility] Hemoglobin (Bld) [Mass/Vol] 14.5 g/dL 13.0-16.5 [facility] Monocytes/100 WBC (Bld) 4.0 % 0-10 [facility] Neutrophils (Bld) [#/Vol] 7.4 10*3/uL 2.0-7.7 [facility] Neutrophils/100 WBC (Bld) 78.9 % 47-70 [facility] Potassium [Moles/Vol] 4.0 mmol/L 3.5-5.1 [facility] Protein [Mass/Vol] 8.3 g/dL 6.4-8.2 [facility] Sodium [Moles/Vol] 133 mmol/L 136-145 [facility] WBC (Bld) [#/Vol] 9.4 10*3/uL 4.4-11.0 [facility] Determination of erythrocyte mean corpuscular volume (MCV)Ordered By: Tae Walsh on 10-29-2023 MCV (RBC) [Entitic vol] 93.4 fL 80-94 [facility] Erythrocyte distribution wid th ratioOrdered By: Taelacey Walsh on 10-29-2023 Erythrocyte distribution width (RBC) [Ratio] 12.4 % 11.6-14.6 [facility] Erythrocyte distribution wid th standard deviationOrdered By: Tae Walsh on 10-29-2023 Erythrocyte distribution width (RBC) [Entitic vol] 43.0 fL 35.1-43.9 [facility] Hematocrit Auto (Bld) [Volum e fraction]Ordered By: Tae Walsh on 10-29-2023 Hematocrit (Bld) [Volume fraction] 44.1 % 40-54 [facility] Immature granulocytes/100 WB C Auto (Bld)Ordered By: Tae Walsh on 10-29-2023 Immature granulocytes/100 WBC (Bld) 0.300 % 0.0-0.9 [facility] Comment on above: IG% - Immature Granu locytes (promyelocytes, myelocytes and metamyelocytes) > 1% indicates that a LEFT SHIFT is Present. Laboratory - Chemistry and C hemistry - challengeOrdered By: Tae Walsh on 10-29-2023 Albumin/Globulin [Mass ratio] 1.0 {ratio} 0.9-2.4 [facility] ALP [Catalytic activity/Vol] 59 U/L 45-117 [facility] ALT [Catalytic activity/Vol] 37 U/L 16-61 [facility] CO2 [Moles/Vol] 27.0 mmol/L 21.0-32.0 [facility] Globulin (S) [Mass/Vol] 4.1 g/dL 2.2-4.2 [facility] Urea nitrogen/Creatinine [Mass ratio] 21.0 mg/mg 10-20 [facility] Laboratory - Chemistry and C hemistry - challengeOrdered By: Alisha Mcintyre on 10-29-2023 Magnesium [Mass/Vol] 2.3 mg/dL 1.6-2.6 [facility] Laboratory - Drug toxicology Ordered By: Tae Walsh on 10-29-2023 Amphetamines Ql (U) Positive <1000 ng/mL [facility] Benzodiazepines Ql (U) Negative < 200 ng/mL [facility] Cannabinoids Screen Ql (U) Negative < 50 ng/mL [facility] Cocaine Ql (U) Negative < 300 ng/mL [facility] Opiates Ql (U) Negative < 300 ng/mL [facility] Laboratory - Hematology and Cell countsOrdered By: Tae Walsh on 10-29-2023 MCH (RBC) [Entitic mass] 30.7 pg 27.0-32.0 [facility] MCHC (RBC) [Mass/Vol] 32.9 g/dL 32-36 [facility] Nucleated RBC/100 WBC (Bld) [Ratio] 0 % 0-5 [facility] Platelets (Bld) [#/Vol] 338 10*3/uL 150-450 [facility] No Panel InformationOrdered By: Tae Walsh on 10-29-2023 MDMA (Ecstasy) Screen Positive < 500 ng/mL [facility] Urine Barbiturates Screen Negative < 200 ng/mL [facility] Urine Drug Screen Comment [facility] Comment on above: CONFIRMATORY TESTING FOR [...] Urine Methadone Screen Negative < 300 ng/mL [facility] Estimated Creatinine Clearance Calc 92.52 ml/min [facility] Estimated GFR (MDRD) Amer 123 mL/min >60 [facility] Comment on above: GFR Calc Estimated GFR (MDRD) Non-Af Amer 102 mL/min >60 [facility] Comment on above: Non- GFR Calc Ethyl Alcohol Level 5.0 mg/dL [facility] Comment on above: The serum:whole bloo d [...] volume (Bld) [Entitic vol] 9.2 fL 6.2-12.0 [facility] RBC Auto (Bld) [#/Vol]Ordere d By: Tae Walsh on 10-29-2023 RBC (Bld) [#/Vol] 4.72 10*6/uL 4.6-6.2 [facility] Serum or plasma calcium micah urement (mass/volume)Ordered By: Tae Walsh on 10-29-2023 Calcium [Mass/Vol] 9.8 mg/dL 8.5-10.1 [facility] Serum or plasma creatinine m easurement (mass/volume)Ordered By: Tae Walsh on 10-29-2023 Creatinine [Mass/Vol] 0.86 mg/dL 0.70-1.30 [facility] Comment on above: The validity of the calculated GFR & GFRAA in patients over 70 years has not been determined. Clinical correlation is essential. Serum or plasma urea nitroge n measurement (mass/volume)Ordered By: Tae Walsh on 10-29-2023 Urea nitrogen [Mass/Vol] 18 mg/dL 7-18 [facility] Thin prep Papanicolaou smear with manual screeningOrdered By: Tae Walsh on 10-29-2023 Thin prep Papanicolaou smear with manual screening 4.2 g/dL 3.2-5.0 [facility] Thin prep Papanicolaou smear with manual screening 31 U/L 15-37 [facility] Thin prep Papanicolaou smear with manual screening 6 5-15 [facility] Urine phencyclidine (PCP) de tectionOrdered By: Tae Walsh on 10-29-2023 Phencyclidine Ql (U) Negative < 25 ng/mL [facility] CNCOon 09-06-2023 CNCO Letter Text Normal [facility] CNOVon 08-28-2023 CNOV Office Visit (GENSWS ) MICHAEL MCNEILL ([id number]) 1975 M Date Time Provider Department 08/28/23 [...] If you do not have a responsible rear load truck driver (family member or friend) with [...] preparation solution at your local [facility] 09/2019 Bowel Preparation Instructions for: Golytely, Nulytely, Trilyte or Colyte (polyethylene glycol 3350 a (more content not included)... [facility]28-[facility] MICHAEL MCNEILL ([id number]) 1975 M [facility] Date Time Provider Department 08/28/23 LINDA JOSE During your visit today, we recorded the following information about you: Vida Perez 08/28/2023 11:16 AM Signed 09/05/2023 [facility] + 10/03/2023 [facility] Vida Christianson 09/13/2023 9:07 AM Signed Received call from [facility] in regards to patient not being able to be contacted. Number listed for patient rings twice then shows busy. Emergency contact listed is inactive. Will keep trying. Patient scheduled for hernia surgery with Dr. Jose in [place] on 10/03/2023. Colonoscopy was cancelled earlier this month. Vida Perez Please advise [employer] Vida Perez 09/19/2023 4:15 PM Signed Office and [facility] unable to reach patient to go over surgery information and schedule PAT prior to surgery as patients number and emergency contacts number has been disconnected Surgery message sent to [facility] to cancel surgery as of now Vida Perez [employer] Allergies As of Date: 08/28/2023 Noted Allergy [...] Status:Closed by BRODERICK JEAN BAPTISTE on 08/06/24 [facility] CNOVon 08-26-2023 CNOV Office Visit (UCWSTR ) MICHAEL MCNEILL ([id number]) 1975 M Date Time Provider Department 08/26/23 9:45 AM HENRI HURLEY [facility] During your visit today, we recorded the following information about you: Temperature Pulse Respiration Blood pressure 98.3 degrees 80/minute 22/minute 133/82 Weight 68 kg Henri Hurley APRN.MOBILE APPLICATION ENGINEER 08/26/2023 11:44 AM Signed Subjective HPI HPI [...] - CONSULT TO GENERAL SURGERY Henri Hurley APRN.MOBILE APPLICATION ENGINEER Referring Provider: SELF [[id number]] Allergies As of Date: 08/26/2023 Noted Allergy Reaction SEASONAL ALLERGIES 08/26/2023 16 - Unknown Date Reviewed: 08/26/2023 Reviewed by: Henri Hurley APRN.MOBILE APPLICATION ENGINEER - Fully Assessed Reason for Visit: Mass [64] Cmt: Right side above testicle for some years pain on and off Primary Visit Diagnosis:Unilateral inguinal hernia without obstruction or gangrene, recurrence not specified [K40.90] Order(s):CONSULT TO GENERAL SURGERY [9011] Order #: [id number]: 1 FUTURE Prescriptions as of 08/26/2023 - OLANZapine (ZYPREXA) 5 mg tablet Take 5 mg by mouth daily at bedtime. Problem List As Of Date: 08/26/2023 (None) Encounter Status:Closed by HENRI HURLEY on 08/26/23 [facility] Absolute lymphocyte countOrd ered By: Grhaam Messina on 04-26-2023 Lymphocytes Auto (Unsp spec) [#/Vol] 1.11 10*3/uL 0.83-4.51 [facility] Basophil percentageOrdered B y: Alisha White on 04-26-2023 Basophil percentage 3.7 mg/dL 2.5-4.9 [facility] Basophil percentageOrdered B y: Graham Messina on 04-26-2023 Basophils/100 WBC (Bld) 0.8 % 0-1 [facility] Bilirubin [Mass/Vol] 0.40 mg/dL 0.20-1.00 [facility] Comment on above: For patients on eltr ombopag therapy, use of Dimension [place] TBIL is not recommended. Chloride [Moles/Vol] 107 mmol/L 98-107 [facility] Eosinophils/100 WBC (Bld) 14.7 % 0-5 [facility] Glucose [Mass/Vol] 98 mg/dL 74-106 [facility] Neutrophils (Bld) [#/Vol] 2.8 10*3/uL 2.0-7.7 [facility] Neutrophils/100 WBC (Bld) 56.3 % 47-70 [facility] Potassium [Moles/Vol] 4.0 mmol/L 3.5-5.1 [facility] Protein [Mass/Vol] 7.4 g/dL 6.4-8.2 [facility] Sodium [Moles/Vol] 139 mmol/L 136-145 [facility] WBC (Bld) [#/Vol] 5.0 10*3/uL 4.4-11.0 [facility] Blood erythrocytes count (nu mber/volume)Ordered By: Graham Messina on 04-26-2023 RBC (Bld) [#/Vol] 4.12 10*6/uL 4.6-6.2 [facility] Blood hemoglobin measurement (mass/volume)Ordered By: Graham Messina on 04-26-2023 Hemoglobin (Bld) [Mass/Vol] 12.8 g/dL 13.0-16.5 [facility] Blood lymphocytes/100 leukoc ytesOrdered By: Graham Messina on 04-26-2023 Lymphocytes/100 WBC (Bld) 22.0 % 19-41 [facility] Blood monocytes/100 leukocyt esOrdered By: Graham Messina on 04-26-2023 Monocytes/100 WBC (Bld) 6.0 % 0-10 [facility] Blood platelet mean volumeOr dered By: Graham Messina on 04-26-2023 Platelet mean volume (Bld) [Entitic vol] 8.7 fL 6.2-12.0 [facility] Determination of erythrocyte mean corpuscular volume (MCV)Ordered By: Graham Messina on 04-26-2023 MCV (RBC) [Entitic vol] 94.4 fL 80-94 [facility] HIV 1 and HIV-2 antibody ass ay with HIV-1 p24 antigen detectionOrdered By: Alisha Mcintyre on 04-26-2023 HIV 1+2 Ab+HIV1 p24 Ag IA Ql Non-Reactive Nonreactive [facility] Hematocrit Auto (Bld) [Volum e fraction]Ordered By: Graham Messina on 04-26-2023 Hematocrit (Bld) [Volume fraction] 38.9 % 40-54 [facility] - Chemistry and C hemistry - challengeOrdered By: Graham Messina on 04-26-2023 ALP [Catalytic activity/Vol] 51 U/L 45-117 [facility] ALT [Catalytic activity/Vol] 43 U/L 16-61 [facility] CO2 [Moles/Vol] 29.0 mmol/L 21.0-32.0 [facility] Globulin (S) [Mass/Vol] 3.9 g/dL 2.2-4.2 [facility] Urea nitrogen/Creatinine [Mass ratio] 23.9 mg/mg 10-20 [facility] - Chemistry and C hemistry - challengeOrdered By: Alisha Mcintyre on 04-26-2023 Magnesium [Mass/Vol] 2.0 mg/dL 1.6-2.6 [facility] - Drug toxicology Ordered By: Graham Messina on 04-26-2023 Amphetamines Ql (U) Positive <1000 ng/mL [facility] Benzodiazepines Ql (U) Negative < 200 ng/mL [facility] Cannabinoids Screen Ql (U) Negative < 50 ng/mL [facility] Cocaine Ql (U) Negative < 300 ng/mL [facility] Opiates Ql (U) Negative < 300 ng/mL [facility] - Hematology and Cell countsOrdered By: Graham Messina on 04-26-2023 Erythrocyte distribution width (RBC) [Entitic vol] 43.1 fL 35.1-43.9 [facility] Erythrocyte distribution width (RBC) [Ratio] 12.5 % 11.6-14.6 [facility] Immature granulocytes/100 WBC (Bld) 0.200 % 0.0-0.9 [facility] Comment on above: IG% - Immature Granu locytes (promyelocytes, myelocytes and metamyelocytes) > 1% indicates that a LEFT SHIFT is Present. MCH (RBC) [Entitic mass] 31.1 pg 27.0-32.0 [facility] Nucleated RBC/100 WBC (Bld) [Ratio] 0 % 0-5 [facility] MCHC Auto (RBC) [Mass/Vol]Or dered By: Graham Messina on 04-26-2023 MCHC (RBC) [Mass/Vol] 32.9 g/dL 32-36 [facility] No Panel InformationOrdered By: Graham Messina on 04-26-2023 MDMA (Ecstasy) Screen Positive < 500 ng/mL [facility] Urine Barbiturates Screen Negative < 200 ng/mL [facility] Urine Drug Screen Comment [facility] Comment on above: CONFIRMATORY TESTING FOR [...] Methadone Screen Negative < 300 ng/mL [facility] Estimated Creatinine Clearance Calc 84.16 ml/min [facility] Estimated GFR (MDRD) Amer 119 mL/min >60 [facility] Comment on above: GFR Calc Estimated GFR (MDRD) Non-Af Amer 99 mL/min >60 [facility] Comment on above: Non- GFR Calc Ethyl Alcohol Level < 3.0 mg/dL [facility] Comment on above: The serum:whole bloo d ethanol ratio is approximately 1.14and varies slightly with hematocrit. Medical Alcohol reference interval and critical value innon-tolerant individuals; 50 - 100 Impairment 100 Intoxication 100 - 250 Severe Poisoning 250 - 400 Deep/possible fatal coma No Panel InformationOrdered By: Alisha Mcintyre on 04-26-2023 Hepatitis B Surface Antigen Non-Reactive Nonreactive [facility] Hepatitis C Antibody Preliminary Reactive Nonre active [facility] Comment on above: Critical Result(s) Mamta ann-mariekrystian at: 22:54:59 04/26/2023 by: Kia Bergman. Results read back by same. Non Reactive: < 0.8 Equivocal: >/= 0.8 to < 1.0 Reactive: >/= 1.0The [facility] recommends that a reactive/equivocal HCV antibody result be followed up by the HCV Nucleic Acid Amplificationtest (521750) Miscellaneous Test See comment [facility] Comment on above: TEST RESULT LIMITSHC V [...] 04-26-2023 Platelets (Bld) [#/Vol] 273 10*3/uL 150-450 [facility] Serum Treponema species anti body detectionOrdered By: Alisha Mcintyre on 04-26-2023 Treponema sp Ab Ql (S) Non-Reactive [facility] Serum hepatitis B virus [place] antibody IgG detectionOrdered By: Alisha Mcintyre on 04-26-2023 HBV surface IgG Ql (S) Reactive [facility] Comment on above: Non Reactive: Incons istent with immunity less than <10 mIU/mL Reactive: Consistent with immunity greater than or equal to 10 mIU/mL Serum or plasma albumin micah urement (mass/volume)Ordered By: Graham Messina on 04-26-2023 Albumin [Mass/Vol] 3.5 g/dL 3.2-5.0 [facility] Serum or plasma albumin/glob ulin mass ratioOrdered By: Graham Messina on 04-26-2023 Albumin/Globulin [Mass ratio] 0.9 {ratio} 0.9-2.4 [facility] Serum or plasma calcium micah urement (mass/volume)Ordered By: Graham Messina on 04-26-2023 Calcium [Mass/Vol] 8.9 mg/dL 8.5-10.1 [facility] Serum or plasma creatinine m easurement (mass/volume)Ordered By: Graham Messina on 04-26-2023 Creatinine [Mass/Vol] 0.88 mg/dL 0.70-1.30 [facility] Comment on above: The validity of the calculated GFR & GFRAA in patients over 70 years has not been determined. Clinical correlation is essential. Serum or plasma urea nitroge n measurement (mass/volume)Ordered By: Graham Messina on 04-26-2023 Urea nitrogen [Mass/Vol] 21 mg/dL 7-18 [facility] Thin prep Papanicolaou smear with manual screeningOrdered By: Graham Messina on 04-26-2023 Thin prep Papanicolaou smear with manual screening 26 U/L 15-37 [facility] Thin prep Papanicolaou smear with manual screening 3 5-15 [facility] Urine phencyclidine (PCP) de tectionOrdered By: Graham Messina on 04-26-2023 Phencyclidine Ql (U) Negative < 25 ng/mL [facility] Absolute lymphocyte countOrd ered By: Dr. De Anda on 12-23-2022 Lymphocytes Auto (Unsp spec) [#/Vol] 1.21 10*3/uL 0.83-4.51 [facility] Basophil percentageOrdered B y: Dr. Mcintyre on 12-23-2022 Basophil percentage 3.5 mg/dL 2.5-4.9 [facility] Basophil percentageOrdered B y: Dr. De Anda on 12-23-2022 Basophils/100 WBC (Bld) 0.7 % 0-1 [facility] Bilirubin [Mass/Vol] 0.30 mg/dL 0.20-1.00 [facility] Comment on above: For patients on eltr ombopag therapy, use of Dimension [place] TBIL is not recommended. Chloride [Moles/Vol] 105 mmol/L 98-107 [facility] Eosinophils/100 WBC (Bld) 7.0 % 0-5 [facility] Glucose [Mass/Vol] 114 mg/dL 74-106 [facility] Comment on above: Fasting Glucose resu lt from 100 to 125 mg/dL suggests IMPAIRED HOMEOSTASIS per A.D.A. criteria. Neutrophils (Bld) [#/Vol] 4.8 10*3/uL 2.0-7.7 [facility] Neutrophils/100 WBC (Bld) 69.3 % 47-70 [facility] Potassium [Moles/Vol] 3.5 mmol/L 3.5-5.1 [facility] Protein [Mass/Vol] 7.4 g/dL 6.4-8.2 [facility] Sodium [Moles/Vol] 139 mmol/L 136-145 [facility] WBC (Bld) [#/Vol] 7.0 10*3/uL 4.4-11.0 [facility] Blood erythrocytes count (nu mber/volume)Ordered By: Dr. De Anda on 12-23-2022 RBC (Bld) [#/Vol] 4.09 10*6/uL 4.6-6.2 [facility] Blood hemoglobin measurement (mass/volume)Ordered By: Dr. De Anda on 12-23-2022 Hemoglobin (Bld) [Mass/Vol] 12.6 g/dL 13.0-16.5 [facility] Blood lymphocytes/100 leukoc ytesOrdered By: Dr. De Anda on 12-23-2022 Lymphocytes/100 WBC (Bld) 17.4 % 19-41 [facility] Blood monocytes/100 leukocyt esOrdered By: Dr. De Anda on 12-23-2022 Monocytes/100 WBC (Bld) 5.3 % 0-10 [facility] Blood platelet mean volumeOr dered By: Dr. De Anda on 12-23-2022 Platelet mean volume (Bld) [Entitic vol] 9.0 fL 6.2-12.0 [facility] Determination of erythrocyte mean corpuscular volume (MCV)Ordered By: Dr. De Anda on 12-23-2022 MCV (RBC) [Entitic vol] 92.2 fL 80-94 [facility] Hematocrit Auto (Bld) [Volum e fraction]Ordered By: Dr. De Anda on 12-23-2022 Hematocrit (Bld) [Volume fraction] 37.7 % 40-54 [facility] Iron measurement (mass/mass) Ordered By: Dr. Mcintyre on 12-23-2022 Iron (Unsp spec) [Mass/Mass] 57 ug/dL 65-175 [facility] - Chemistry and C hemistry - challengeOrdered By: Dr. De Anda on 12-23-2022 ALP [Catalytic activity/Vol] 48 U/L 45-117 [facility] ALT [Catalytic activity/Vol] 67 U/L 16-61 [facility] CO2 [Moles/Vol] 25.0 mmol/L 21.0-32.0 [facility] Globulin (S) [Mass/Vol] 3.9 g/dL 2.2-4.2 [facility] Urea nitrogen/Creatinine [Mass ratio] 35.4 mg/mg 10-20 [facility] - Chemistry and C hemistry - challengeOrdered By: Dr. Mcintyre on 12-23-2022 Cobalamin (Vitamin B12) [Mass/Vol] 589 pg/mL 211-911 [facility] Magnesium [Mass/Vol] 2.2 mg/dL 1.6-2.6 [facility] - Drug toxicology Ordered By: Dr. De Anda on 12-23-2022 Amphetamines Ql (U) Positive <1000 ng/mL [facility] Benzodiazepines Ql (U) Negative < 200 ng/mL [facility] Cannabinoids Screen Ql (U) Negative < 50 ng/mL [facility] Cocaine Ql (U) Negative < 300 ng/mL [facility] Opiates Ql (U) Negative < 300 ng/mL [facility] - Hematology and Cell countsOrdered By: Dr. De Anda on 12-23-2022 Erythrocyte distribution width (RBC) [Entitic vol] 42.5 fL 35.1-43.9 [facility] Erythrocyte distribution width (RBC) [Ratio] 12.6 % 11.6-14.6 [facility] Immature granulocytes/100 WBC (Bld) 0.300 % 0.0-0.9 [facility] Comment on above: IG% - Immature Granu locytes (promyelocytes, myelocytes and metamyelocytes) > 1% indicates that a LEFT SHIFT is Present. MCH (RBC) [Entitic mass] 30.8 pg 27.0-32.0 [facility] Nucleated RBC/100 WBC (Bld) [Ratio] 0 % 0-5 [facility] MCHC Auto (RBC) [Mass/Vol]Or dered By: Dr. De Anda on 12-23-2022 MCHC (RBC) [Mass/Vol] 33.4 g/dL 32-36 [facility] No Panel InformationOrdered By: Dr. De Anda on 12-23-2022 Estimated Creatinine Clearance Calc 93.74 ml/min [facility] Estimated GFR (MDRD) Amer 130 mL/min >60 [facility] Comment on above: GFR Calc Estimated GFR (MDRD) Non-Af Amer 107 mL/min >60 [facility] Comment on above: Non- GFR Calc Ethyl Alcohol Level 25.0 mg/dL [facility] Comment on above: The serum:whole bloo d ethanol ratio is approximately 1.14and varies slightly with hematocrit. Medical Alcohol reference interval and critical value innon-tolerant individuals; 50 - 100 Impairment 100 Intoxication 100 - 250 Severe Poisoning 250 - 400 Deep/possible fatal coma MDMA (Ecstasy) Screen Positive < 500 ng/mL [facility] Urine Barbiturates Screen Negative < 200 ng/mL [facility] Urine Drug Screen Comment [facility] Comment on above: CONFIRMATORY TESTING FOR [...] Urine Methadone Screen Negative < 300 ng/mL [facility] No Panel InformationOrdered By: Dr. Mcintyre on 12-23-2022 Total Iron Binding Capacity 335 ug/dL 250-450 [facility] Platelets bldOrdered By: Dr. De Anda on 12-23-2022 Platelets (Bld) [#/Vol] 285 10*3/uL 150-450 [facility] Serum or plasma albumin micah urement (mass/volume)Ordered By: Dr. De Anda on 12-23-2022 Albumin [Mass/Vol] 3.5 g/dL 3.2-5.0 [facility] Serum or plasma albumin/glob ulin mass ratioOrdered By: Dr. De Anda on 12-23-2022 Albumin/Globulin [Mass ratio] 0.9 {ratio} 0.9-2.4 [facility] Serum or plasma calcium micah urement (mass/volume)Ordered By: Dr. De Anda on 12-23-2022 Calcium [Mass/Vol] 8.8 mg/dL 8.5-10.1 [facility] Serum or plasma creatinine m easurement (mass/volume)Ordered By: Dr. De Anda on 12-23-2022 Creatinine [Mass/Vol] 0.82 mg/dL 0.70-1.30 [facility] Comment on above: The validity of the calculated GFR & GFRAA in patients over 70 years has not been determined. Clinical correlation is essential. Serum or plasma ferritin luisito surement (mass/volume)Ordered By: Dr. Mcintyre on 12-23-2022 Ferritin [Mass/Vol] 27 ng/mL 26-388 [facility] Serum or plasma folate measu rement (mass/volume)Ordered By: Dr. Mcintyre on 12-23-2022 Folate [Mass/Vol] 16.10 ng/mL 3.1-55.4 [facility] Serum or plasma iron saturat ion measurement (mass fraction)Ordered By: Dr. Mcintyre on 12-23-2022 Iron saturation [Mass fraction] 17.0 % 15.0-55.0 [facility] Serum or plasma urea nitroge n measurement (mass/volume)Ordered By: Dr. De Anda on 12-23-2022 Urea nitrogen [Mass/Vol] 29 mg/dL 7-18 [facility] Thin prep Papanicolaou smear with manual screeningOrdered By: Dr. De Anda on 12-23-2022 Thin prep Papanicolaou smear with manual screening 49 U/L 15-37 [facility] Thin prep Papanicolaou smear with manual screening 9 5-15 [facility] Urine phencyclidine (PCP) de tectionOrdered By: Dr. De Anda on 12-23-2022 Phencyclidine Ql (U) Negative < 25 ng/mL [facility] Absolute lymphocyte countOrd ered By: Dr. Nieves on 11-03-2022 Lymphocytes Auto (Unsp spec) [#/Vol] 1.20 10*3/uL 0.83-4.51 [facility] Basophil percentageOrdered B y: Dr. Nieves on 11-03-2022 Basophils/100 WBC (Bld) 0.7 % 0-1 [facility] Chloride [Moles/Vol] 107 mmol/L 98-107 [facility] Eosinophils/100 WBC (Bld) 10.8 % 0-5 [facility] Glucose [Mass/Vol] 152 mg/dL 74-106 [facility] Comment on above: Fasting Glucose resu lt greater than or equal to 126 mg/dL suggests DIABETES MELLITUS per A.D.A. criteria. Neutrophils (Bld) [#/Vol] 3.5 10*3/uL 2.0-7.7 [facility] Neutrophils/100 WBC (Bld) 60.9 % 47-70 [facility] Potassium [Moles/Vol] 3.6 mmol/L 3.5-5.1 [facility] Sodium [Moles/Vol] 140 mmol/L 136-145 [facility] WBC (Bld) [#/Vol] 5.7 10*3/uL 4.4-11.0 [facility] Blood erythrocytes count (nu mber/volume)Ordered By: Dr. Nieves on 11-03-2022 RBC (Bld) [#/Vol] 3.80 10*6/uL 4.6-6.2 [facility] Blood hemoglobin measurement (mass/volume)Ordered By: Dr. Nieves on 11-03-2022 Hemoglobin (Bld) [Mass/Vol] 11.8 g/dL 13.0-16.5 [facility] Blood lymphocytes/100 leukoc ytesOrdered By: Dr. Nieves on 11-03-2022 Lymphocytes/100 WBC (Bld) 20.9 % 19-41 [facility] Blood monocytes/100 leukocyt esOrdered By: Dr. Nieves on 11-03-2022 Monocytes/100 WBC (Bld) 6.5 % 0-10 [facility] Blood platelet mean volumeOr dered By: Dr. Nieves on 11-03-2022 Platelet mean volume (Bld) [Entitic vol] 8.6 fL 6.2-12.0 [facility] Determination of erythrocyte mean corpuscular volume (MCV)Ordered By: Dr. Nieves on 11-03-2022 MCV (RBC) [Entitic vol] 93.2 fL 80-94 [facility] Hematocrit Auto (Bld) [Volum e fraction]Ordered By: Dr. Nieves on 11-03-2022 Hematocrit (Bld) [Volume fraction] 35.4 % 40-54 [facility] - Chemistry and C hemistry - challengeOrdered By: Dr. Nieves on 11-03-2022 CO2 [Moles/Vol] 29.0 mmol/L 21.0-32.0 [facility] Urea nitrogen/Creatinine [Mass ratio] 27.6 mg/mg 10-20 [facility] - Hematology and Cell countsOrdered By: Dr. Nieves on 11-03-2022 Erythrocyte distribution width (RBC) [Entitic vol] 43.3 fL 35.1-43.9 [facility] Erythrocyte distribution width (RBC) [Ratio] 12.6 % 11.6-14.6 [facility] Immature granulocytes/100 WBC (Bld) 0.200 % 0.0-0.9 [facility] Comment on above: IG% - Immature Granu locytes (promyelocytes, myelocytes and metamyelocytes) > 1% indicates that a LEFT SHIFT is Present. MCH (RBC) [Entitic mass] 31.1 pg 27.0-32.0 [facility] Nucleated RBC/100 WBC (Bld) [Ratio] 0 % 0-5 [facility] MCHC Auto (RBC) [Mass/Vol]Or dered By: Dr. Nieves on 11-03-2022 MCHC (RBC) [Mass/Vol] 33.3 g/dL 32-36 [facility] No Panel InformationOrdered By: Dr. Nieves on 11-03-2022 Estimated Creatinine Clearance Calc 88.52 ml/min [facility] Estimated GFR (MDRD) Amer 115 mL/min >60 [facility] Comment on above: GFR Calc Estimated GFR (MDRD) Non-Af Amer 95 mL/min >60 [facility] Comment on above: Non- GFR Calc Platelets bldOrdered By: Dr. Nieves on 11-03-2022 Platelets (Bld) [#/Vol] 321 10*3/uL 150-450 [facility] Serum or plasma calcium micah urement (mass/volume)Ordered By: Dr. Nieves on 11-03-2022 Calcium [Mass/Vol] 8.6 mg/dL 8.5-10.1 [facility] Serum or plasma creatinine m easurement (mass/volume)Ordered By: Dr. Nieves on 11-03-2022 Creatinine [Mass/Vol] 0.91 mg/dL 0.70-1.30 [facility] Comment on above: The validity of the calculated GFR & GFRAA in patients over 70 years has not been determined. Clinical correlation is essential. Serum or plasma urea nitroge n measurement (mass/volume)Ordered By: Dr. Nieves on 11-03-2022 Urea nitrogen [Mass/Vol] 25 mg/dL 7-18 [facility] Thin prep Papanicolaou smear with manual screeningOrdered By: Dr. Nieves on 11-03-2022 Thin prep Papanicolaou smear with manual screening 4 5-15 [facility] Influenza virus A and B and SARS-CoV-2 (COVID-19) Ag panel - Upper respiratory specimOrdered By: Dr. Messina on 09-05-2022 SARS-CoV-2 & FLU Antigen (Rapid) Influenzae A [facility] COVID-19 virus antigen assay Ordered By: Dr. Garcia on 07-26-2022 SARS-CoV-2 (COVID-19) Ag IA.rapid Ql (Resp) [facility] Absolute lymphocyte countOrd ered By: Dr. Hess on 07-15-2022 Lymphocytes Auto (Unsp spec) [#/Vol] 1.71 10*3/uL 0.83-4.51 [facility] Basophil percentageOrdered B y: Dr. Mcintyre on 07-15-2022 Basophil percentage 3.5 mg/dL 2.5-4.9 [facility] Bilirubin [Mass/Vol] 0.40 mg/dL 0.20-1.00 [facility] Comment on above: For patients on eltr ombopag therapy, use of Dimension [place] TBIL is not recommended. Protein [Mass/Vol] 8.5 g/dL 6.4-8.2 [facility] Basophil percentageOrdered B y: Dr. Hess on 07-15-2022 Basophils/100 WBC (Bld) 0.8 % 0-1 [facility] Chloride [Moles/Vol] 108 mmol/L 98-107 [facility] Eosinophils/100 WBC (Bld) 6.0 % 0-5 [facility] Glucose [Mass/Vol] 85 mg/dL 74-106 [facility] Neutrophils (Bld) [#/Vol] 3.6 10*3/uL 2.0-7.7 [facility] Neutrophils/100 WBC (Bld) 59.1 % 47-70 [facility] Potassium [Moles/Vol] 3.8 mmol/L 3.5-5.1 [facility] Sodium [Moles/Vol] 142 mmol/L 136-145 [facility] WBC (Bld) [#/Vol] 6.1 10*3/uL 4.4-11.0 [facility] Blood erythrocytes count (nu mber/volume)Ordered By: Dr. Hess on 07-15-2022 RBC (Bld) [#/Vol] 4.38 10*6/uL 4.6-6.2 [facility] Blood hemoglobin measurement (mass/volume)Ordered By: Dr. Hess on 07-15-2022 Hemoglobin (Bld) [Mass/Vol] 13.8 g/dL 13.0-16.5 [facility] Blood lymphocytes/100 leukoc ytesOrdered By: Dr. Hess on 07-15-2022 Lymphocytes/100 WBC (Bld) 27.9 % 19-41 [facility] Blood monocytes/100 leukocyt esOrdered By: Dr. Hess on 07-15-2022 Monocytes/100 WBC (Bld) 6.0 % 0-10 [facility] Blood platelet mean volumeOr dered By: Dr. Hess on 07-15-2022 Platelet mean volume (Bld) [Entitic vol] 8.9 fL 6.2-12.0 [facility] Determination of erythrocyte mean corpuscular volume (MCV)Ordered By: Dr. Hess on 07-15-2022 MCV (RBC) [Entitic vol] 93.6 fL 80-94 [facility] Direct bilirubinOrdered By: Dr. Mcintyre on 07-15-2022 Bilirubin.direct [Mass/Vol] 0.11 mg/dL 0.00-0.30 [facility] Hematocrit Auto (Bld) [Volum e fraction]Ordered By: Dr. Hess on 07-15-2022 Hematocrit (Bld) [Volume fraction] 41.0 % 40-54 [facility] - Chemistry and C hemistry - challengeOrdered By: Dr. Mcintyre on 07-15-2022 ALP [Catalytic activity/Vol] 54 U/L 45-117 [facility] ALT [Catalytic activity/Vol] 63 U/L 16-61 [facility] Globulin (S) [Mass/Vol] 4.4 g/dL 2.2-4.2 [facility] Magnesium [Mass/Vol] 2.3 mg/dL 1.6-2.6 [facility] - Chemistry and C hemistry - challengeOrdered By: Dr. Hess on 07-15-2022 CO2 [Moles/Vol] 28.0 mmol/L 21.0-32.0 [facility] Urea nitrogen/Creatinine [Mass ratio] 24.8 mg/mg 10-20 [facility] - Drug toxicology Ordered By: Dr. Hess on 07-15-2022 Amphetamines Ql (U) Positive <1000 ng/mL [facility] Benzodiazepines Ql (U) Negative < 200 ng/mL [facility] Cannabinoids Screen Ql (U) Positive < 50 ng/mL [facility] Cocaine Ql (U) Negative < 300 ng/mL [facility] Opiates Ql (U) Negative < 300 ng/mL [facility] - Hematology and Cell countsOrdered By: Dr. eHss on 07-15-2022 Erythrocyte distribution width (RBC) [Entitic vol] 43.1 fL 35.1-43.9 [facility] Erythrocyte distribution width (RBC) [Ratio] 12.5 % 11.6-14.6 [facility] Immature granulocytes/100 WBC (Bld) 0.200 % 0.0-0.9 [facility] Comment on above: IG% - Immature Granu locytes (promyelocytes, myelocytes and metamyelocytes) > 1% indicates that a LEFT SHIFT is Present. MCH (RBC) [Entitic mass] 31.5 pg 27.0-32.0 [facility] Nucleated RBC/100 WBC (Bld) [Ratio] 0 % 0-5 [facility] MCHC Auto (RBC) [Mass/Vol]Or dered By: Dr. Hess on 07-15-2022 MCHC (RBC) [Mass/Vol] 33.7 g/dL 32-36 [facility] No Panel InformationOrdered By: Dr. Hess on 07-15-2022 MDMA (Ecstasy) Screen Positive < 500 ng/mL [facility] Urine Barbiturates Screen Negative < 200 ng/mL [facility] Urine Drug Screen Comment [facility] Comment on above: CONFIRMATORY TESTING FOR [...] Methadone Screen Negative < 300 ng/mL [facility] Estimated Creatinine Clearance Calc 79.37 ml/min [facility] Estimated GFR (MDRD) Amer 107 mL/min >60 [facility] Comment on above: GFR Calc Estimated GFR (MDRD) Non-Af Amer 89 mL/min >60 [facility] Comment on above: Non- GFR Calc Ethyl Alcohol Level < 3.0 mg/dL [facility] Comment on above: The serum:whole bloo d ethanol ratio is approximately 1.14and varies slightly with hematocrit. Medical Alcohol reference interval and critical value innon-tolerant individuals; 50 - 100 Impairment 100 Intoxication 100 - 250 Severe Poisoning 250 - 400 Deep/possible fatal coma Platelets bldOrdered By: Dr. Hess on 07-15-2022 Platelets (Bld) [#/Vol] 289 10*3/uL 150-450 [facility] Serum or plasma albumin micah urement (mass/volume)Ordered By: Dr. Mcintyre on 07-15-2022 Albumin [Mass/Vol] 4.1 g/dL 3.2-5.0 [facility] Serum or plasma calcium micah urement (mass/volume)Ordered By: Dr. Hess on 07-15-2022 Calcium [Mass/Vol] 9.1 mg/dL 8.5-10.1 [facility] Serum or plasma creatinine m easurement (mass/volume)Ordered By: Dr. Hess on 07-15-2022 Creatinine [Mass/Vol] 0.97 mg/dL 0.70-1.30 [facility] Comment on above: The validity of the calculated GFR & GFRAA in patients over 70 years has not been determined. Clinical correlation is essential. Serum or plasma urea nitroge n measurement (mass/volume)Ordered By: Dr. Hess on 07-15-2022 Urea nitrogen [Mass/Vol] 24 mg/dL 7-18 [facility] Thin prep Papanicolaou smear with manual screeningOrdered By: Dr. Mcintyre on 07-15-2022 Thin prep Papanicolaou smear with manual screening 32 U/L 15-37 [facility] Thin prep Papanicolaou smear with manual screeningOrdered By: Dr. Hess on 07-15-2022 Thin prep Papanicolaou smear with manual screening 6 5-15 [facility] Urine phencyclidine (PCP) de tectionOrdered By: Dr. Hess on 07-15-2022 Phencyclidine Ql (U) Negative < 25 ng/mL [facility] Absolute lymphocyte counton 05-24-2022 Lymphocytes Auto (Unsp spec) [#/Vol] 1.23 10*3/uL 0.83-4.51 [facility] Work Phone: Basophil percentageon 2021 Basophils/100 WBC (Bld) 0.5 % 0-1 [facility] Work Phone: Bilirubin [Mass/Vol] 0.50 mg/dL 0.20-1.00 [facility] Work Phone: Comment on above: For patients on eltr ombopag therapy, use of Dimension [place] TBIL is not recommended. Chloride [Moles/Vol] 107 mmol/L 98-107 [facility] Work Phone: Eosinophils/100 WBC (Bld) 6.2 % 0-5 [facility] Work Phone: Glucose [Mass/Vol] 117 mg/dL 74-106 [facility] Work Phone: Comment on above: Fasting Glucose resu lt from 100 to 125 mg/dL suggests IMPAIRED HOMEOSTASIS per A.D.A. criteria. Neutrophils (Bld) [#/Vol] 4.0 10*3/uL 2.0-7.7 [facility] Work Phone: [phone] Neutrophils/100 WBC (Bld) 67.5 % 47-70 [facility] Work Phone: Potassium [Moles/Vol] 3.8 mmol/L 3.5-5.1 [facility] Work Phone: Protein [Mass/Vol] 8.0 g/dL 6.4-8.2 [facility] Work Phone: Sodium [Moles/Vol] 140 mmol/L 136-145 [facility] Work Phone: WBC (Bld) [#/Vol] 6.0 10*3/uL 4.4-11.0 [facility] Work Phone: Blood erythrocytes count (nu mber/volume)on 05-24-2022 RBC (Bld) [#/Vol] 4.22 10*6/uL 4.6-6.2 [facility] Work Phone: Blood hemoglobin measurement (mass/volume)on 05-24-2022 Hemoglobin (Bld) [Mass/Vol] 13.1 g/dL 13.0-16.5 [facility] Work Phone: Blood lymphocytes/100 leukoc yteson 05-24-2022 Lymphocytes/100 WBC (Bld) 20.6 % 19-41 [facility] Work Phone: Blood monocytes/100 leukocyt eson 05-24-2022 Monocytes/100 WBC (Bld) 4.9 % 0-10 [facility] Work Phone: Blood platelet mean volumeon 05-24-2022 Platelet mean volume (Bld) [Entitic vol] 8.5 fL 6.2-12.0 [facility] Work Phone: Determination of erythrocyte mean corpuscular volume (MCV)on 05-24-2022 MCV (RBC) [Entitic vol] 91.0 fL 80-94 [facility] Work Phone: Hematocrit Auto (Bld) [Volum e fraction]on 05-24-2022 Hematocrit (Bld) [Volume fraction] 38.4 % 40-54 [facility] Work Phone: Laboratory - Chemistry and C hemistry - challengeon 05-24-2022 ALP [Catalytic activity/Vol] 57 U/L 45-117 [facility] Work Phone: ALT [Catalytic activity/Vol] 66 U/L 16-61 [facility] Work Phone: CO2 [Moles/Vol] 28.0 mmol/L 21.0-32.0 [facility] Work Phone: Globulin (S) [Mass/Vol] 4.2 g/dL 2.2-4.2 [facility] Work Phone: Urea nitrogen/Creatinine [Mass ratio] 21.8 mg/mg 10-20 [facility] Work Phone: Laboratory - Drug toxicology on 05-24-2022 Amphetamines Ql (U) Positive <1000 ng/mL [facility] Work Phone: Benzodiazepines Ql (U) Negative < 200 ng/mL [facility] Work Phone: Cannabinoids Screen Ql (U) Negative < 50 ng/mL [facility] Work Phone: Cocaine Ql (U) Negative < 300 ng/mL [facility] Work Phone: Opiates Ql (U) Positive < 300 ng/mL [facility] Work Phone: Laboratory - Hematology and Cell countson 05-24-2022 Erythrocyte distribution width (RBC) [Entitic vol] 41.7 fL 35.1-43.9 [facility] Work Phone: Erythrocyte distribution width (RBC) [Ratio] 12.8 % 11.6-14.6 [facility] Work Phone: Immature granulocytes/100 WBC (Bld) 0.300 % 0.0-0.9 [facility] Work Phone: Comment on above: IG% - Immature Granu locytes (promyelocytes, myelocytes and metamyelocytes) > 1% indicates that a LEFT SHIFT is Present. MCH (RBC) [Entitic mass] 31.0 pg 27.0-32.0 [facility] Work Phone: Nucleated RBC/100 WBC (Bld) [Ratio] 0 % 0-5 [facility] Work Phone: MCHC Auto (RBC) [Mass/Vol]on 05-24-2022 MCHC (RBC) [Mass/Vol] 34.1 g/dL 32-36 [facility] Work Phone: No Panel Informationon 05-24 MDMA (Ecstasy) Screen Positive < 500 ng/mL [facility] Work Phone: Urine Barbiturates Screen Negative < 200 ng/mL [facility] Work Phone: Urine Drug Screen Comment [facility] Work Phone: Comment on above: CONFIRMATORY [...] Methadone Screen Negative < 300 ng/mL [facility] Work Phone: Estimated Creatinine Clearance Calc 70.36 ml/min [facility] Work Phone: Estimated GFR (MDRD) Amer 102 mL/min >60 [facility] Work Phone: Comment on above: GFR Calc Estimated GFR (MDRD) Non-Af Amer 84 mL/min >60 [facility] Work Phone: Comment on above: Non- GFR Calc Ethyl Alcohol Level < 3.0 mg/dL [facility] Work Phone: Comment on above: The serum:whole bloo d ethanol ratio is approximately 1.14and varies slightly with hematocrit. Medical Alcohol reference interval and critical value innon-tolerant individuals; 50 - 100 Impairment 100 Intoxication 100 - 250 Severe Poisoning 250 - 400 Deep/possible fatal coma Platelets bldon 05-24-2022 Platelets (Bld) [#/Vol] 300 10*3/uL 150-450 [facility] Work Phone: Serum or plasma albumin micah urement (mass/volume)on 05-24-2022 Albumin [Mass/Vol] 3.8 g/dL 3.2-5.0 [facility] Work Phone: Serum or plasma albumin/glob ulin mass ratioon 05-24-2022 Albumin/Globulin [Mass ratio] 0.9 {ratio} 0.9-2.4 [facility] Work Phone: Serum or plasma calcium micah urement (mass/volume)on 05-24-2022 Calcium [Mass/Vol] 8.9 mg/dL 8.5-10.1 [facility] Work Phone: Serum or plasma creatinine m easurement (mass/volume)on 05-24-2022 Creatinine [Mass/Vol] 1.01 mg/dL 0.70-1.30 [facility] Work Phone: Comment on above: The validity of the calculated GFR & GFRAA in patients over 70 years has not been determined. Clinical correlation is essential. Serum or plasma urea nitroge n measurement (mass/volume)on 05-24-2022 Urea nitrogen [Mass/Vol] 22 mg/dL 7-18 [facility] Work Phone: Thin prep Papanicolaou smear with manual screeningon 05-24-2022 Thin prep Papanicolaou smear with manual screening 39 U/L 15-37 [facility] Work Phone: Thin prep Papanicolaou smear with manual screening 5 5-15 [facility] Work Phone: Urine phencyclidine (PCP) de tectionon 05-24-2022 Phencyclidine Ql (U) Negative < 25 ng/mL [facility] Work Phone: Absolute lymphocyte counton 03-28-2022 Lymphocytes Auto (Unsp spec) [#/Vol] 1.05 10*3/uL 0.83-4.51 [facility] Work Phone: Basophil percentageon 2021 Basophils/100 WBC (Bld) 0.3 % 0-1 [facility] Work Phone: Chloride [Moles/Vol] 101 mmol/L 98-107 [facility] Work Phone: Eosinophils/100 WBC (Bld) 5.9 % 0-5 [facility] Work Phone: Glucose [Mass/Vol] 95 mg/dL 74-106 [facility] Work Phone: Neutrophils (Bld) [#/Vol] 6.9 10*3/uL 2.0-7.7 [facility] Work Phone: Neutrophils/100 WBC (Bld) 76.5 % 47-70 [facility] Work Phone: Potassium [Moles/Vol] 3.8 mmol/L 3.5-5.1 [facility] Work Phone: Sodium [Moles/Vol] 136 mmol/L 136-145 [facility] Work Phone: WBC (Bld) [#/Vol] 9.0 10*3/uL 4.4-11.0 [facility] Work Phone: Blood erythrocytes count (nu mber/volume)on 03-28-2022 RBC (Bld) [#/Vol] 4.54 10*6/uL 4.6-6.2 [facility] Work Phone: Blood hemoglobin measurement (mass/volume)on 03-28-2022 Hemoglobin (Bld) [Mass/Vol] 14.4 g/dL 13.0-16.5 [facility] Work Phone: Blood lymphocytes/100 leukoc yteson 03-28-2022 Lymphocytes/100 WBC (Bld) 11.7 % 19-41 [facility] Work Phone: Blood monocytes/100 leukocyt eson 03-28-2022 Monocytes/100 WBC (Bld) 5.3 % 0-10 [facility] Work Phone: Blood platelet mean volumeon 03-28-2022 Platelet mean volume (Bld) [Entitic vol] 9.0 fL 6.2-12.0 [facility] Work Phone: [phone] Determination of erythrocyte mean corpuscular volume (MCV)on 03-28-2022 MCV (RBC) [Entitic vol] 93.2 fL 80-94 [facility] Work Phone: Hematocrit Auto (Bld) [Volum e fraction]on 03-28-2022 Hematocrit (Bld) [Volume fraction] 42.3 % 40-54 [facility] Work Phone: [phone] Laboratory - Chemistry and C hemistry - challengeon 03-28-2022 CO2 [Moles/Vol] 29.0 mmol/L 21.0-32.0 [facility] Work Phone: Urea nitrogen/Creatinine [Mass ratio] 23.5 mg/mg 10-20 [facility] Work Phone: Laboratory - Hematology and Cell countson 03-28-2022 Erythrocyte distribution width (RBC) [Entitic vol] 41.4 fL 35.1-43.9 [facility] Work Phone: Erythrocyte distribution width (RBC) [Ratio] 12.0 % 11.6-14.6 [facility] Work Phone: Immature granulocytes/100 WBC (Bld) 0.300 % 0.0-0.9 [facility] Work Phone: Comment on above: IG% - Immature Granu locytes (promyelocytes, myelocytes and metamyelocytes) > 1% indicates that a LEFT SHIFT is Present. MCH (RBC) [Entitic mass] 31.7 pg 27.0-32.0 [facility] Work Phone: Nucleated RBC/100 WBC (Bld) [Ratio] 0 % 0-5 [facility] Work Phone: MCHC Auto (RBC) [Mass/Vol]on 03-28-2022 MCHC (RBC) [Mass/Vol] 34.0 g/dL 32-36 [facility] Work Phone: No Panel Informationon 03-28 Estimated Creatinine Clearance Calc 83.60 ml/min [facility] Work Phone: Estimated GFR (MDRD) Amer 125 mL/min >60 [facility] Work Phone: Comment on above: GFR Calc Estimated GFR (MDRD) Non-Af Amer 103 mL/min >60 [facility] Work Phone: Comment on above: Non- GFR Calc Platelets bldon 03-28-2022 Platelets (Bld) [#/Vol] 244 10*3/uL 150-450 [facility] Work Phone: Serum or plasma calcium micah urement (mass/volume)on 03-28-2022 Calcium [Mass/Vol] 8.5 mg/dL 8.5-10.1 [facility] Work Phone: Serum or plasma creatinine m easurement (mass/volume)on 03-28-2022 Creatinine [Mass/Vol] 0.85 mg/dL 0.70-1.30 [facility] Work Phone: Comment on above: The validity of the calculated GFR & GFRAA in patients over 70 years has not been determined. Clinical correlation is essential. Serum or plasma urea nitroge n measurement (mass/volume)on 03-28-2022 Urea nitrogen [Mass/Vol] 20 mg/dL 7-18 [facility] Work Phone: Thin prep Papanicolaou smear with manual screeningon 03-28-2022 Thin prep Papanicolaou smear with manual screening 6 -15 [facility] Work Phone: Laboratory - Microbiology an d Antimicrobial susceptibilityon 03-26-2022 SARS-CoV-2 (COVID-19) RNA WES+probe Ql (Unsp spec) Not detected [facility] Work Phone: No Panel Informationon 03-26 Influenza Types A,B Rapid (Clinic) Not detected [facility] Work Phone: Absolute lymphocyte counton 03-19-2022 Lymphocytes Auto (Unsp spec) [#/Vol] 1.40 10*3/uL 0.83-4.51 [facility] Work Phone: Basophil percentageon 2021 Basophils/100 WBC (Bld) 0.9 % 0-1 [facility] Work Phone: Bilirubin [Mass/Vol] 0.40 mg/dL 0.20-1.00 [facility] Work Phone: Comment on above: For patients on eltr ombopag therapy, use of Dimension [place] TBIL is not recommended. Chloride [Moles/Vol] 107 mmol/L 98-107 [facility] Work Phone: Eosinophils/100 WBC (Bld) 8.8 % 0-5 [facility] Work Phone: Glucose [Mass/Vol] 97 mg/dL 74-106 [facility] Work Phone: Neutrophils (Bld) [#/Vol] 3.4 10*3/uL 2.0-7.7 [facility] Work Phone: Neutrophils/100 WBC (Bld) 60.1 % 47-70 [facility] Work Phone: Potassium [Moles/Vol] 4.5 mmol/L 3.5-5.1 [facility] Work Phone: Comment on above: Moderate Hemolysis, Result may be falsely increased. Protein [Mass/Vol] 8.2 g/dL 6.4-8.2 [facility] Work Phone: Sodium [Moles/Vol] 139 mmol/L 136-145 [facility] Work Phone: WBC (Bld) [#/Vol] 5.7 10*3/uL 4.4-11.0 [facility] Work Phone: Blood erythrocytes count (nu mber/volume)on 03-19-2022 RBC (Bld) [#/Vol] 4.46 10*6/uL 4.6-6.2 [facility] Work Phone: Blood hemoglobin measurement (mass/volume)on 03-19-2022 Hemoglobin (Bld) [Mass/Vol] 13.9 g/dL 13.0-16.5 [facility] Work Phone: Blood lymphocytes/100 leukoc yteson 03-19-2022 Lymphocytes/100 WBC (Bld) 24.6 % 19-41 [facility] Work Phone: [phone] Blood monocytes/100 leukocyt eson 03-19-2022 Monocytes/100 WBC (Bld) 5.4 % 0-10 [facility] Work Phone: Blood platelet mean volumeon 03-19-2022 Platelet mean volume (Bld) [Entitic vol] 9.0 fL 6.2-12.0 [facility] Work Phone: Determination of erythrocyte mean corpuscular volume (MCV)on 03-19-2022 MCV (RBC) [Entitic vol] 92.8 fL 80-94 [facility] Work Phone: Hematocrit Auto (Bld) [Volum e fraction]on 03-19-2022 Hematocrit (Bld) [Volume fraction] 41.4 % 40-54 [facility] Work Phone: Laboratory - Chemistry and C hemistry - challengeon 03-19-2022 ALP [Catalytic activity/Vol] 61 U/L 45-117 [facility] Work Phone: ALT [Catalytic activity/Vol] 42 U/L 16-61 [facility] Work Phone: CO2 [Moles/Vol] 28.0 mmol/L 21.0-32.0 [facility] Work Phone: Globulin (S) [Mass/Vol] 4.5 g/dL 2.2-4.2 [facility] Work Phone: Urea nitrogen/Creatinine [Mass ratio] 33.6 mg/mg 10-20 [facility] Work Phone: Laboratory - Drug toxicology on 03-19-2022 Amphetamines Ql (U) Positive <1000 ng/mL [facility] Work Phone: Benzodiazepines Ql (U) Negative < 200 ng/mL [facility] Work Phone: Cannabinoids Screen Ql (U) Negative < 50 ng/mL [facility] Work Phone: Cocaine Ql (U) Negative < 300 ng/mL [facility] Work Phone: Opiates Ql (U) Negative < 300 ng/mL [facility] Work Phone: Laboratory - Hematology and Cell countson 03-19-2022 Erythrocyte distribution width (RBC) [Entitic vol] 40.3 fL 35.1-43.9 [facility] Work Phone: Erythrocyte distribution width (RBC) [Ratio] 11.9 % 11.6-14.6 [facility] Work Phone: Immature granulocytes/100 WBC (Bld) 0.200 % 0.0-0.9 [facility] Work Phone: Comment on above: IG% - Immature Granu locytes (promyelocytes, myelocytes and metamyelocytes) > 1% indicates that a LEFT SHIFT is Present. MCH (RBC) [Entitic mass] 31.2 pg 27.0-32.0 [facility] Work Phone: Nucleated RBC/100 WBC (Bld) [Ratio] 0 % 0-5 [facility] Work Phone: MCHC Auto (RBC) [Mass/Vol]on 03-19-2022 MCHC (RBC) [Mass/Vol] 33.6 g/dL 32-36 [facility] Work Phone: No Panel Informationon 03-19 MDMA (Ecstasy) Screen Positive < 500 ng/mL [facility] Work Phone: Urine Barbiturates Screen Negative < 200 ng/mL [facility] Work Phone: Urine Drug Screen Comment [facility] Work Phone: Comment on above: CONFIRMATORY [...] Methadone Screen Negative < 300 ng/mL [facility] Work Phone: Estimated Creatinine Clearance Calc 83.73 ml/min [facility] Work Phone: Estimated GFR (MDRD) Amer 123 mL/min >60 [facility] Work Phone: Comment on above: GFR Calc Estimated GFR (MDRD) Non-Af Amer 101 mL/min >60 [facility] Work Phone: Comment on above: Non- GFR Calc Ethyl Alcohol Level 4.0 mg/dL [facility] Work Phone: Comment on above: The serum:whole bloo d ethanol ratio is approximately 1.14and varies slightly with hematocrit. Medical Alcohol reference interval and critical value innon-tolerant individuals; 50 - 100 Impairment 100 Intoxication 100 - 250 Severe Poisoning 250 - 400 Deep/possible fatal coma Platelets bldon 03-19-2022 Platelets (Bld) [#/Vol] 301 10*3/uL 150-450 [facility] Work Phone: Serum or plasma albumin micah urement (mass/volume)on 03-19-2022 Albumin [Mass/Vol] 3.7 g/dL 3.2-5.0 [facility] Work Phone: Serum or plasma albumin/glob ulin mass ratioon 03-19-2022 Albumin/Globulin [Mass ratio] 0.8 {ratio} 0.9-2.4 [facility] Work Phone: Serum or plasma calcium micah urement (mass/volume)on 03-19-2022 Calcium [Mass/Vol] 8.6 mg/dL 8.5-10.1 [facility] Work Phone: Serum or plasma creatinine m easurement (mass/volume)on 03-19-2022 Creatinine [Mass/Vol] 0.86 mg/dL 0.70-1.30 [facility] Work Phone: Comment on above: The validity of the calculated GFR & GFRAA in patients over 70 years has not been determined. Clinical correlation is essential. Serum or plasma urea nitroge n measurement (mass/volume)on 03-19-2022 Urea nitrogen [Mass/Vol] 29 mg/dL - [facility] Work Phone: Thin prep Papanicolaou smear with manual screeningon 03-19-2022 Thin prep Papanicolaou smear with manual screening 33 U/L 15-37 [facility] Work Phone: Comment on above: Moderate Hemolysis, Result may be falsely increased. Thin prep Papanicolaou smear with manual screening 4 5-15 [facility] Work Phone: Urine phencyclidine (PCP) de tectionon 03-19-2022 Phencyclidine Ql (U) Negative < 25 ng/mL [facility] Work Phone: Absolute lymphocyte counton 02-12-2022 Lymphocytes Auto (Unsp spec) [#/Vol] 1.09 10*3/uL 0.83-4.51 [facility] Work Phone: Basophil percentageon 2021 Basophils/100 WBC (Bld) 0.7 % 0-1 [facility] Work Phone: Chloride [Moles/Vol] 108 mmol/L 98-107 [facility] Work Phone: Eosinophils/100 WBC (Bld) 6.1 % 0-5 [facility] Work Phone: Glucose [Mass/Vol] 96 mg/dL 74-106 [facility] Work Phone: Neutrophils (Bld) [#/Vol] 2.8 10*3/uL 2.0-7.7 [facility] Work Phone: Neutrophils/100 WBC (Bld) 60.8 % 47-70 [facility] Work Phone: Potassium [Moles/Vol] 3.8 mmol/L 3.5-5.1 [facility] Work Phone: Sodium [Moles/Vol] 141 mmol/L 136-145 [facility] Work Phone: WBC (Bld) [#/Vol] 4.6 10*3/uL 4.4-11.0 [facility] Work Phone: Blood erythrocytes count (nu mber/volume)on 02-12-2022 RBC (Bld) [#/Vol] 4.09 10*6/uL 4.6-6.2 [facility] Work Phone: Blood hemoglobin measurement (mass/volume)on 02-12-2022 Hemoglobin (Bld) [Mass/Vol] 13.2 g/dL 13.0-16.5 [facility] Work Phone: Blood lymphocytes/100 leukoc yteson 02-12-2022 Lymphocytes/100 WBC (Bld) 23.9 % 19-41 [facility] Work Phone: Blood monocytes/100 leukocyt eson 02-12-2022 Monocytes/100 WBC (Bld) 8.1 % 0-10 [facility] Work Phone: Blood platelet mean volumeon 02-12-2022 Platelet mean volume (Bld) [Entitic vol] 8.7 fL 6.2-12.0 [facility] Work Phone: Determination of erythrocyte mean corpuscular volume (MCV)on 02-12-2022 MCV (RBC) [Entitic vol] 94.4 fL 80-94 [facility] Work Phone: Hematocrit Auto (Bld) [Volum e fraction]on 02-12-2022 Hematocrit (Bld) [Volume fraction] 38.6 % 40-54 [facility] Work Phone: Laboratory - Chemistry and C hemistry - challengeon 02-12-2022 CO2 [Moles/Vol] 27.0 mmol/L 21.0-32.0 [facility] Work Phone: Urea nitrogen/Creatinine [Mass ratio] 25.9 mg/mg 10-20 [facility] Work Phone: Laboratory - Hematology and Cell countson 02-12-2022 Erythrocyte distribution width (RBC) [Entitic vol] 42.9 fL 35.1-43.9 [facility] Work Phone: Erythrocyte distribution width (RBC) [Ratio] 12.3 % 11.6-14.6 [facility] Work Phone: Immature granulocytes/100 WBC (Bld) 0.400 % 0.0-0.9 [facility] Work Phone: Comment on above: IG% - Immature Granu locytes (promyelocytes, myelocytes and metamyelocytes) > 1% indicates that a LEFT SHIFT is Present. MCH (RBC) [Entitic mass] 32.3 pg 27.0-32.0 [facility] Work Phone: Nucleated RBC/100 WBC (Bld) [Ratio] 0 % 0-5 [facility] Work Phone: MCHC Auto (RBC) [Mass/Vol]on 02-12-2022 MCHC (RBC) [Mass/Vol] 34.2 g/dL 32-36 [facility] Work Phone: No Panel Informationon 02-12 Estimated Creatinine Clearance Calc 87.09 ml/min [facility] Work Phone: Estimated GFR (MDRD) Amer 125 mL/min >60 [facility] Work Phone: Comment on above: GFR Calc Estimated GFR (MDRD) Non-Af Amer 103 mL/min >60 [facility] Work Phone: Comment on above: Non- GFR Calc Platelets bldon 02-12-2022 Platelets (Bld) [#/Vol] 313 10*3/uL 150-450 [facility] Work Phone: Serum or plasma calcium micah urement (mass/volume)on 02-12-2022 Calcium [Mass/Vol] 8.5 mg/dL 8.5-10.1 [facility] Work Phone: Serum or plasma creatinine m easurement (mass/volume)on 02-12-2022 Creatinine [Mass/Vol] 0.85 mg/dL 0.70-1.30 [facility] Work Phone: Comment on above: The validity of the calculated GFR & GFRAA in patients over 70 years has not been determined. Clinical correlation is essential. Serum or plasma urea nitroge n measurement (mass/volume)on 02-12-2022 Urea nitrogen [Mass/Vol] 22 mg/dL 7-18 [facility] Work Phone: Thin prep Papanicolaou smear with manual screeningon 02-12-2022 Thin prep Papanicolaou smear with manual screening 6 5-15 [facility] Work Phone: ED Pat Eduon 08-04-2019 ED Pat Edu [facility] Emergency Department [address], [place] [address] Emergency Department Discharge Instructions MICHAEL MCNEILL, Please [...] None Ordered Procedure(s) and Patient Education(s) : [facility] List (Custom); Asthma, Acute Bronchospasm EMERGENCY SERVICES MEDICATION LIST [facility] Name MICHAEL MCNEILL MRN ([facility] SYSTEM)-[id number] Acct# PLEASE READ THE FOLLOWING REGARDING YOUR [...] doses are changed, or new medications (including nmlj-zgi-lbekowj products) are added. If you have any questions, check with your doctor. Por la informaci??n disponible orwdy bazan visita, las instrucciones de medicaci??n aparecen [...] UNTIL YOU TALK TO YOUR DOCTOR None [facility] Emergency Department [address] [place], [place] [id number] Emergency Department Discharge Instructions Name: MICHAEL MNCEILL Current Date:08/04/2019 01:15:09 :1975 Primary Physician:Physician, No PCP We would like to thank you for choosing [facility] for your emergency medical needs. We examined [...] health of those around you. Call the [place] [employer] at 6-455-CNVX-USA or the [place] [employer] at 4-008-TVR-0722 for more information. High blood pressure: Your [...] deadly infections. Discuss this with your child's channel development director, or Public Health Department. Your family practice doctor can determine if you need pneumonia or flu vaccine. [facility] Department can be reached at . Substance Abuse Program: Concerns with addiction to alcohol, benzodiazepines (Ativan or Xanax) and Opiates (Heroin, Percocet, OxyContin, Methadone or Fentanyl)? [facility] offers an inpatient Substance Abuse Program to help treat the symptoms associated with medical detoxification of addictive substances. The new program offers care for non- adults (18 and older) looking to break the chain to addictive chemicals. The Substance Abuse Program is a voluntary inpatient admission and it starts with a pre-screening phone call to a mental health social worker. During the call, goals and objectives for recovery and how the patient will transition to outpatient care will be established. Please call [phone] to get help today. Domestic Violence: If [...] suicide hotline, anytime day or night, at 4-800-222-JQZH. Community Auto Hauler: You may be contacted by your local fire department for a follow up visit from a community billet checker. The community billet checker can help with a home safety check; follow up care, and general home care management. Pharmacy Information: Below is a list of 24 hour pharmacies that we are aware of. We suggest that you call the specific pharmacy for their hours before traveling to a location. Hours may vary on holidays. [facility] Pharm[facility] [address] [place], [place] [phone] [place], [place] [address] [phone] [address] [place], [place] [address] [phone] [address] [place], [place] [phone] [address] [place], [place] [phone] [address] [place], [place] [phone] [place] [address] [phone] Take all medications as directed. If you need prescription assistance, contact the following agencies: ?? Partnership for Prescription Assistance at or www.pparx.org ?? [place] [facility] at or www.Sionexstrx.org ?? www.CTI TowersRxTellwiki is a site with many valuable coupons Patient Education Materials MICHAEL MCNEILL has been given the following patient education materials: [facility] Emergency Department [facility]. [facility]. offers comprehensive and integrated primary care medical services. We welcome the opportunity to provide follow-up care for your family, now that you've been discharged from the hospital. We offer transportation and supply person services. If you need either of these services, please let us know when you call to make your appointment and we'll be happy to make these arrangements for you. We count it a privilege to have the opportunity to care for you at any one of our conveniently located health center locations below. [facility]. can provide you with: ?? Family Practice medical care for adults and children including physicals and immunizations ?? and care, [place] [place], Podiatry and Pediatric services ?? Referrals to specialists when needed ?? Dental, Vision and Prescription services ?? Lab Services such as cholesterol, glucose, sickle cell, lead poisoning, , PAP, and HIV tests ?? Health education and nutritional counseling ?? [facility]. provides health care to the homeless. For further information contact: [facility] [phone] Health Insurance plans accepted by [facility]: [employer] (BCCP), Aetna Insurance, [place] Blue Cross and Blue Shield, Care source, [employer], Medicaid, Medical [place], Medicare, Medicare-[place], Booker and [facility] Please call any location for further information. [facility]. provides services regardless of ability to pay. If you don't have insurance coverage, your cost will be based on your income and family size. [facility] [address] [place] [phone] [facility] [address] [place] [address] [facility] EscobedoKeegan [facility] [address] [place] [address] [facility] [address] [facility] [address] [address] [facility] [address] [facility], [address] [place] [address] [facility] Administration: [address] [facility] [place], [place] [address] [facility] is funded by the U.S. Department of Health and Human Services as a Federal Qualified [facility] providing primary health care services to individuals and families in the [place] area. Allergy Asthma, Acute Bronchospasm Acute bronchospasm [...] smoke. ???Air pollutants such as dust, household airways operations specialist, hair sprays, aerosol sprays, paint fumes, [...] were prescribed any new medicines, let your website programmer know about the visit and how you [...] 01/03/2008 Document Revised: 09/23/2014 Document Reviewed: 03/26/2014 [employer] Interactive Patient Education ?2016 [employer] <><><><><><><><><><><>< ><><><><><><><><><><><> <><><><><><><><><><> Patient Visit Summary Signature MICHAEL MCNEILL has been given the following list of patient education materials, prescriptions and follow-up instructions: OSITO Cameron JIMMY D, have received the above patient education materials/instructions and have verbalized understanding: Date Time Patient Signature Date Time Provider Signature Normal [facility] XR Chest 2 Viewson 9 XR [...] x-ray after completion of therapy is suggested. [facility] thanks you for the opportunity to care for your patient. Workstation ID: [id number] FINAL REPORT Dictated By: Lima Siddiqi MD 08/04/2019 01:22 Assigned Physician: Lima Siddiqi MD Reviewed and Electronically Signed By: Lima Siddiqi MD 08/04/2019 01:24 Transcribed by: KASIA 08/04/2019 01:22 Technologist: LUCITA Han [facility] Comment on above: Order Comment: Unable to get pt, respiratory in room 08/04/2019 00:59:01 EDT Amphetamine GCMS Confirmon 0 06-07-2018 Amphetamine GCMS Confirm Positive Normal [facility] Comment on above: Result Comment: LC/M S confirmed the presence of:AMPHETAMINEMETHAMPHETAMINEThis Liquid Chromatography Mass Spectrometry (LC/MS/MS) test was developed and its performance characteristics determined by Toxicology Laboratory at [facility].It has not been cleared or approved by the FDA. The laboratory is regulated under CLIA as qualified to perform high-complexity testing. This test is used for clinical purposes. It should not be regarded as investigational or for research. Performed By: #### C BCDFE, LIVPE, C7EDE, ETOHE, TSHE, FT4E ####[place] [address] Drug Panel 10, Urine Medical - UHEon 06-06-2018 Amphetamine/Methamphet amine Positive Normal 500 [facility] Comment on above: Result Comment: Non- forensic purpose, confirmation report to follow. Performed By: #### 1 0DRGE ####[address] [address]#### AMPMS ####[facility] [place] [address]KhcbrzThe [facility] [place] [address] Barbiturates NONE DETECTED Normal 200 [facility] Comment on above: Performed By: #### 1 0DRGE ####[place] [id number]#### AMPMS ####[facility] [place] [address]LpbxmsThe [facility] [place] [address] Benzodiazepines NONE DETECTED Normal 200 [facility] Comment on above: Performed By: #### 1 0DRGE ####[place] [id number]#### AMPMS ####[facility] [place] [address]PxrtxkThe [facility] [place] [address] Buprenorphine NONE DETECTED Normal 5 [facility] Comment on above: Performed By: #### 1 0DRGE ####[address] [address]#### AMPMS ####[facility] [place] [address]OmnurmThe [facility] [place] [address] Cannabinoids Screen Ql (U) NONE DETECTED Normal 50 [facility] Comment on above: Performed By: #### 1 0DRGE ####[address] [address]#### AMPMS ####[facility] [place] [address], [place] [address]MsojjvThe [facility] [place] [address] Cocaine/Metabolites NONE DETECTED Normal 150 [facility] Comment on above: Performed By: #### 1 0DRGE ####[address] [address]#### AMPMS ####[facility] [place] [address], [place] [address]HyhzgjThe [facility] [place], [place] [address] COMMENT Urine: For medical purposes only. Positive results unconfirmed unless otherwise noted. Normal [facility] Comment on above: Performed By: #### 1 0DRGE ####[address] [address]#### AMPMS ####[facility] [place] [address] 12[address]XkdkytThe [facility] [place] [address] Fentanyl NONE DETECTED Normal 2 [facility] Comment on above: Performed By: #### 1 0DRGE ####[address] [address]#### AMPMS ####[facility] [place] [address]MxqdtuThe [facility] [place] [address] Methadone NONE DETECTED Normal 300 [facility] Comment on above: Performed By: #### 1 0DRGE ####[address] [address]#### AMPMS ####[facility] [place] [address], [place] [address]DtqabqThe [facility] [place] [address] Opiates NONE DETECTED Normal 300 [facility] Comment on above: Performed By: #### 1 0DRGE ####[address] [address]#### AMPMS ####[facility] [place] [address], [place] [address]IjxuhfThe [facility] [place], [place] [address] Oxycodone NONE DETECTED Normal 100 [facility] Comment on above: Performed By: #### 1 0DRGE ####[address] [address]#### AMPMS ####[facility] [facility] [address]ProvbsThe [facility] [facility] [place] [address] Urinalysis - UHEon 8 Appearance Nom (U) Clear Normal Clear [facility] Comment on above: Performed By: #### U AE ####[address] [address] Bacteria Present Abnormal Absent [facility] Comment on above: Performed By: #### U AE ####[address] [address] Blood Urine Large Abnormal Negative [facility] Comment on above: Performed By: #### U AE ####[place] [address] Color Yellow Normal Yellow [facility] Comment on above: Performed By: #### U AE ####[address] [address] COMMENT URINE Mucus Normal [facility] Comment on above: Performed By: #### U AE ####[address] [address] Glucose Ql (U) Negative Normal Negative [facility] Comment on above: Performed By: #### U AE ####[address] [address] Ketones Ql (U) Trace Abnormal Negative [facility] Comment on above: Performed By: #### U AE ####[address] [address] Leukocyte Esterase Negative Normal Negative [facility] Comment on above: Performed By: #### U AE ####[address] [address] Nitrites Urine Negative Normal Negative [facility] Comment on above: Performed By: #### U AE ####[address] [address] pH Test strip (U) 6.0 [pH] Normal 5.0-7.0 [facility] Comment on above: Performed By: #### U AE ####[place] [address] Protein Urine Negative Normal Negative [facility] Comment on above: Performed By: #### U AE ####[place] [address] RBC LM.HPF #/area (Urine sed) 0-2 Normal 0-2 [facility] Comment on above: Performed By: #### U AE ####[place] [address] Specific [place] urine >1.030 Normal 1.001-1.035 [facility] Comment on above: Performed By: #### U AE ####[place] [address] Squamous Epithelial 1+ /HPF Normal [facility] Comment on above: Performed By: #### U AE ####[place] [address] Urobilinogen urine 1.0 EU/dL Normal <2.0 [facility] Comment on above: Performed By: #### U AE ####[place] [address] WBC LM.HPF #/area (Urine sed) 0-5 Normal 0-5 [facility] Comment on above: Performed By: #### U AE ####[place] [address] CBC WITH DIFF [place] 018 Abs Baso 0.09 K/uL High <0.09 [facility] Comment on above: Performed By: #### C BCDFE, LIVPE, C7EDE, ETOHE, TSHE, FT4E ####[place] [address] Abs Eos 0.87 K/uL High <0.55 [facility] Comment on above: Performed By: #### C BCDFE, LIVPE, C7EDE, ETOHE, TSHE, FT4E ####[place] [address] Abs [place] 0.55 K/uL Normal 0.30-0.82 [facility] Comment on above: Performed By: #### C BCDFE, LIVPE, C7EDE, ETOHE, TSHE, FT4E ####[place] [address] Basophils/100 WBC Auto (Bld) 0.9 % Normal [facility] Comment on above: Performed By: #### C BCDFE, LIVPE, C7EDE, ETOHE, TSHE, FT4E ####[place] [address] DIFFERENTIAL TYPE Electronic Differential Normal [facility] Comment on above: Performed By: #### C BCDFE, LIVPE, C7EDE, ETOHE, TSHE, FT4E ####[place] [address] Eosinophils/100 WBC Auto (Bld) 8.8 % Normal [facility] Comment on above: Performed By: #### C BCDFE, LIVPE, C7EDE, ETOHE, TSHE, FT4E ####[place] [address] Hematocrit Auto Volume Fraction (Bld) 37.5 % Low 40.1-51.0 [facility] Comment on above: Performed By: #### C BCDFE, LIVPE, C7EDE, ETOHE, TSHE, FT4E ####[place] [address] Hemoglobin mass conc (Bld) 13.0 g/dL Low 13.7-17.5 [facility] Comment on above: Performed By: #### C BCDFE, LIVPE, C7EDE, ETOHE, TSHE, FT4E ####[place] [address] IMMATURE GRANS % 0.3 % Normal [facility] Comment on above: Performed By: #### C BCDFE, LIVPE, C7EDE, ETOHE, TSHE, FT4E ####[address] [address] IMMATURE GRANS ABSOLUTE <0.04 Normal <0.04 [facility] Comment on above: Performed By: #### C BCDFE, LIVPE, C7EDE, ETOHE, TSHE, FT4E ####[place] [address] Lymphocytes Auto #/vol (Bld) 1.17 10*3/uL Low 1.32-3.57 [facility] Comment on above: Performed By: #### C BCDFE, LIVPE, C7EDE, ETOHE, TSHE, FT4E ####[address] [address] Lymphocytes/100 WBC Auto (Bld) 11.9 % Normal [facility] Comment on above: Performed By: #### C BCDFE, LIVPE, C7EDE, ETOHE, TSHE, FT4E ####[address] [address] MCV Auto Entitic volume (RBC) 92.8 fL High 79.0-92.2 [facility] Comment on above: Performed By: #### C BCDFE, LIVPE, C7EDE, ETOHE, TSHE, FT4E ####[address] [address] Mean Cell Hgb 32.2 pg Normal 25.7-32.2 [facility] Comment on above: Performed By: #### C BCDFE, LIVPE, C7EDE, ETOHE, TSHE, FT4E ####[place] [address] Mean Cell Hgb Conc 34.7 g/dL Normal 32.3-36.5 [facility] Comment on above: Performed By: #### C BCDFE, LIVPE, C7EDE, ETOHE, TSHE, FT4E ####[address] [address] Monocytes/100 WBC Auto (Bld) 5.6 % Normal [facility] Comment on above: Performed By: #### C BCDFE, LIVPE, C7EDE, ETOHE, TSHE, FT4E ####[place] [address] NEUTROPHIL SEGMENTED 72.5 % Normal [facility] Comment on above: Performed By: #### C BCDFE, LIVPE, C7EDE, ETOHE, TSHE, FT4E ####[place] [address] Nucleated RBC #/vol (Bld) 0.0 /100 WBC Normal 0.0-0.2 [facility] Comment on above: Performed By: #### C BCDFE, LIVPE, C7EDE, ETOHE, TSHE, FT4E ####[place] [address] Platelet mean volume Auto Entitic volume (Bld) 8.9 fL Low 9.4-12.4 [facility] Comment on above: Performed By: #### C BCDFE, LIVPE, C7EDE, ETOHE, TSHE, FT4E ####[place] [address] Platelets Auto #/vol (Bld) 366 10*3/uL High 163-337 [facility] Comment on above: Performed By: #### C BCDFE, LIVPE, C7EDE, ETOHE, TSHE, FT4E ####[place] [address] RBC Auto #/vol (Bld) 13.4 % Normal 11.6-14.4 [facility] Comment on above: Performed By: #### C BCDFE, LIVPE, C7EDE, ETOHE, TSHE, FT4E ####[place] [address] RBC Auto #/vol (Bld) 4.04 10*6/uL Low 4.63-6.08 [facility] Comment on above: Performed By: #### C BCDFE, LIVPE, C7EDE, ETOHE, TSHE, FT4E ####[place] [address] SEGS + Bands,Absolute 7.16 K/uL High 1.78-5.38 [facility] Comment on above: Performed By: #### C BCDFE, LIVPE, C7EDE, ETOHE, TSHE, FT4E ####[place] [address] WBC Auto #/vol (Bld) 9.87 10*3/uL High 4.23-9.07 [facility] Comment on above: Performed By: #### C BCDFE, LIVPE, C7EDE, ETOHE, TSHE, FT4E ####[place] [address] CHEM 7 EDon 06-05-2018 Anion gap 3 molar conc 14 mmol/L Normal 7-17 [facility] Comment on above: Performed By: #### C BCDFE, LIVPE, C7EDE, ETOHE, TSHE, FT4E ####[place] [address] Chloride molar conc 107 mmol/L Normal 98-108 [facility] Comment on above: Performed By: #### C BCDFE, LIVPE, C7EDE, ETOHE, TSHE, FT4E ####[place] [address] CO2 molar conc 25 mmol/L Normal 22-30 [facility] Comment on above: Performed By: #### C BCDFE, LIVPE, C7EDE, ETOHE, TSHE, FT4E ####[place] [address] Creatinine mass conc 1.05 mg/dL Normal 0.70-1.30 [facility] Comment on above: Performed By: #### C BCDFE, LIVPE, C7EDE, ETOHE, TSHE, FT4E ####[place] [address] Est GFR, >60 Normal >60 [facility] Comment on above: Performed By: #### C BCDFE, LIVPE, C7EDE, ETOHE, TSHE, FT4E ####[address] [address] Est GFR,non >60 Normal >60 [facility] Comment on above: Performed By: #### C BCDFE, LIVPE, C7EDE, ETOHE, TSHE, FT4E ####[place] [address] Glucose mass conc 143 mg/dL High 70-99 [facility] Comment on above: Performed By: #### C BCDFE, LIVPE, C7EDE, ETOHE, TSHE, FT4E ####[place] [address] Osmolality 305 mOsm/kg Normal 278-305 [facility] Comment on above: Performed By: #### C BCDFE, LIVPE, C7EDE, ETOHE, TSHE, FT4E ####[place] [address] Potassium molar conc 3.4 mmol/L Low 3.5-5.0 [facility] Comment on above: Performed By: #### C BCDFE, LIVPE, C7EDE, ETOHE, TSHE, FT4E ####[place] [address] Sodium molar conc 143 mmol/L Normal 133-143 [facility] Comment on above: Performed By: #### C BCDFE, LIVPE, C7EDE, ETOHE, TSHE, FT4E ####[place] [address] Urea nitrogen mass conc 28 mg/dL High 7-22 [facility] Comment on above: Performed By: #### C BCDFE, LIVPE, C7EDE, ETOHE, TSHE, FT4E ####[place] [address] Urea nitrogen/Creatinine mass ratio 27 mg/mg Normal [facility] Comment on above: Performed By: #### C BCDFE, LIVPE, C7EDE, ETOHE, TSHE, FT4E ####[place] [address] [facility] Ethyl Alcohol, blood <10 Normal <10 [facility] Comment on above: Result Comment: For Medical Purposes Only, Non forensic Performed By: #### C BCDFE, LIVPE, C7EDE, ETOHE, TSHE, FT4E ####[place] [address] Free T4-[facility] 06-05-2018 T4 free mass conc 1.14 ng/dL Normal 0.89-1.76 [facility] Comment on above: Performed By: #### C BCDFE, LIVPE, C7EDE, ETOHE, TSHE, FT4E ####[place] [address] Lactate,plasma - [facility] 06-05 Lactate,plasma - E 0.9 mmol/L Normal 0.5-2.2 [facility] Comment on above: Performed By: #### L ACTE ####[place] [address] Liver Profile - [facility] 2017 Albumin mass conc 4.5 g/dL Normal 3.5-5.0 [facility] Comment on above: Performed By: #### C BCDFE, LIVPE, C7EDE, ETOHE, TSHE, FT4E ####[place] [address] ALP enzyme act/vol 54 U/L Normal 32-126 [facility] Comment on above: Performed By: #### C BCDFE, LIVPE, C7EDE, ETOHE, TSHE, FT4E ####[place] [address] ALT enzyme act/vol 93 U/L High 10-52 [facility] Comment on above: Performed By: #### C BCDFE, LIVPE, C7EDE, ETOHE, TSHE, FT4E ####[place] [address] AST enzyme act/vol 86 U/L High 14-40 [facility] Comment on above: Performed By: #### C BCDFE, LIVPE, C7EDE, ETOHE, TSHE, FT4E ####[place] [address] Bilirubin mass conc 1.0 mg/dL Normal <1.5 [facility] Comment on above: Performed By: #### C BCDFE, LIVPE, C7EDE, ETOHE, TSHE, FT4E ####[place] [address] Bilirubin.direct mass conc 0.3 mg/dL High <0.3 [facility] Comment on above: Performed By: #### C BCDFE, LIVPE, C7EDE, ETOHE, TSHE, FT4E ####[place] [address] Protein mass conc 7.7 g/dL Normal 6.4-8.3 [facility] Comment on above: Performed By: #### C BCDFE, LIVPE, C7EDE, ETOHE, TSHE, FT4E ####[place] [address] TSH -UHEon 06-05-2018 Thyrotropin Qn 0.741 uIU/mL Normal 0.550-4.780 [facility] Comment on above: Performed By: #### C BCDFE, LIVPE, C7EDE, ETOHE, TSHE, FT4E ####[place] [address] XR CHEST AP PORTABLE EDon XR CHEST [...] represent scarring. Otherwiseno acute cardiopulmonary findings. Normal [facility] COVID-19 virus antigen assay SARS-CoV-2 (COVID-19) Ag IA.rapid Ql (Resp) [facility] Work Phone: Influenza virus A and B and SARS-CoV-2 (COVID-19) Ag panel - Upper respiratory specim SARS-CoV-2 & FLU Antigen (Rapid) Influenzae A [facility] Work Phone: No Panel Information SARS-CoV-2 & FLU Antigen (Rapid) [facility] Work Phone: Vital Signs Date Time Vital Sign Value Performing Clinician Facility 05-09-2025 13:07-0400 Body temperature 98.9 [degF] No Primary Care Physician [facility] 05-09-2025 13:07-0400 Diastolic blood pressure 64 mm[Hg] No Primary Care Physician [facility] 05-09-2025 13:07-0400 Heart rate 81 /min No Primary Care Physician [facility] 05-09-2025 13:07-0400 Respiratory rate 16 /min No Primary Care Physician [facility] 05-09-2025 13:07-0400 SaO2% (BldA) [Mass fraction] 95 % No Primary Care Physician [facility] 05-09-2025 13:07-0400 Systolic blood pressure 115 mm[Hg] No Primary Care Physician [facility] 05-09-2025 11:00-0400 Body height 167.64 cm No Primary Care Physician [facility] 05-09-2025 11:00-0400 Body mass index (BMI) [Ratio] 19.8 kg/m2 No Primary Care Physician [facility] 05-09-2025 11:00-0400 Body weight 55.8 kg No Primary Care Physician [facility] 04-27-2025 10:21-0400 Body temperature 98.1 [degF] No Primary Care Physician [facility] 04-27-2025 10:21-0400 Diastolic blood pressure 72 mm[Hg] No Primary Care Physician [facility] 04-27-2025 10:21-0400 Heart rate 74 /min No Primary Care Physician [facility] 04-27-2025 10:21-0400 Respiratory rate 18 /min No Primary Care Physician [facility] 04-27-2025 10:21-0400 SaO2% (BldA) [Mass fraction] 100 % No Primary Care Physician [facility] 04-27-2025 10:21-0400 Systolic blood pressure 115 mm[Hg] No Primary Care Physician [facility] 04-27-2025 10:19-0400 Body weight 56.69 kg No Primary Care Physician [facility] 04-27-2025 09:52-0400 Body height 167.64 cm No Primary Care Physician [facility] 04-27-2025 09:52-0400 Body mass index (BMI) [Ratio] 20 kg/m2 No [facility] [facility] 04[facility]25 15:18-0400 Body temperature 98.7 [degF] No Primary Care Physician [facility] 04-18-2025 15:18-0400 Diastolic blood pressure 74 mm[Hg] No Primary Care Physician [facility] 04-18-2025 15:18-0400 Heart rate 66 /min No [facility] Care Physician [facility] 04-18-2025 15:18-0400 Respiratory rate 16 /min No Primary Care Physician [facility] 04-18-2025 15:18-0400 SaO2% (BldA) [Mass fraction] 97 % No Primary Care Physician [facility] 04-18-2025 15:18-0400 Systolic blood pressure 109 mm[Hg] No Primary Care Physician [facility] 04-18-2025 10:00-0400 Body temperature 98.5 [degF] No Primary Care Physician [facility] 04-18-2025 10:00-0400 Heart rate 67 /min No Primary Care Physician [facility] 04-18-2025 10:00-0400 Systolic blood pressure 100 mm[Hg] No Primary Care Physician [facility] 04-18-2025 06:00-0400 Body mass index (BMI) [Ratio] 20.7 kg/m2 No Primary Care Physician [facility] 04-18-2025 06:00-0400 Body weight 58.6 kg No Primary Care Physician [facility] 04-17-2025 10:43-0400 Body height 167.64 cm No Primary Care Physician [facility] 04-16-2025 23:11-0400 Body temperature 98.3 [degF] No Primary Care Physician [facility] 04-16-2025 23:11-0400 Diastolic blood pressure 88 mm[Hg] No Primary Care Physician [facility] 04-16-2025 23:11-0400 Heart rate 82 /min No Primary Care Physician [facility] 04-16-2025 23:11-0400 Respiratory rate 16 /min No Primary Care Physician [facility] 04-16-2025 23:11-0400 SaO2% (BldA) [Mass fraction] 100 % No Primary Care Physician [facility] 04-16-2025 23:11-0400 Systolic blood pressure 128 mm[Hg] No Primary Care Physician [facility] 04-16-2025 21:32-0400 Body height 167.64 cm No Primary Care Physician [facility] 04-16-2025 21:32-0400 Body mass index (BMI) [Ratio] 19.8 kg/m2 No Primary Care Physician [facility] 04-16-2025 21:32-0400 Body weight 55.88 kg No Primary Care Physician [facility] 03-30-2025 10:44-0400 Body height 167.64 cm No Primary Care Physician [facility] 03-30-2025 10:44-0400 Body mass index (BMI) [Ratio] 20.8 kg/m2 No Primary Care Physician [facility] 03-30-2025 10:44-0400 Body temperature 98.4 [degF] No Primary Care Physician [facility] 03-30-2025 10:44-0400 Body weight 58.64 kg No Primary Care Physician [facility] 03-30-2025 10:44-0400 Diastolic blood pressure 78 mm[Hg] No Primary Care Physician [facility] 03-30-2025 10:44-0400 Heart rate 86 /min No Primary Care Physician [facility] 03-30-2025 10:44-0400 Respiratory rate 19 /min No Primary Care Physician [facility] 03-30-2025 10:44-0400 SaO2% (BldA) [Mass fraction] 98 % No Primary Care Physician [facility] 03-30-2025 10:44-0400 Systolic blood pressure 110 mm[Hg] No Primary Care Physician [facility] 03-29-2025 22:40-0400 Body temperature 97.2 [degF] No Primary Care Physician [facility] 03-29-2025 22:40-0400 Diastolic blood pressure 90 mm[Hg] No Primary Care Physician [facility] 03-29-2025 22:40-0400 Heart rate 85 /min No Primary Care Physician [facility] 03-29-2025 22:40-0400 Respiratory rate 16 /min No Primary Care Physician [facility] 03-29-2025 22:40-0400 SaO2% (BldA) [Mass fraction] 100 % No Primary Care Physician [facility] 03-29-2025 22:40-0400 Systolic blood pressure 139 mm[Hg] No Primary Care Physician [facility] 03-29-2025 17:47-0400 Body height 167.64 cm No Primary Care Physician [facility] 03-29-2025 17:47-0400 Body mass index (BMI) [Ratio] 22.9 kg/m2 No Primary Care Physician [facility] 03-29-2025 17:47-0400 Body weight 64.5 kg No Primary Care Physician [facility] 01-19-2025 15:32-0400 Body temperature 98 [degF] No Primary Care Physician [facility] 01-19-2025 15:32-0400 Diastolic blood pressure 75 mm[Hg] No Primary Care Physician [facility] 01-19-2025 15:32-0400 Heart rate 88 /min No Primary Care Physician [facility] 01-19-2025 15:32-0400 Respiratory rate 16 /min No Primary Care Physician [facility] 01-19-2025 15:32-0400 SaO2% (BldA) [Mass fraction] 96 % No Primary Care Physician [facility] 01-19-2025 15:32-0400 Systolic blood pressure 124 mm[Hg] No Primary Care Physician [facility] 01-19-2025 13:46-0400 Body height 167.64 cm No Primary Care Physician [facility] 01-19-2025 13:46-0400 Body mass index (BMI) [Ratio] 20 kg/m2 No Primary Care Physician [facility] 01-19-2025 13:46-0400 Body weight 56.24 kg No Primary Care Physician [facility] 12-13-2024 13:44-0400 Body temperature 96.6 [degF] No Primary Care Physician [facility] 12-13-2024 13:44-0400 Diastolic blood pressure 90 mm[Hg] No Primary Care Physician [facility] 12-13-2024 13:44-0400 Heart rate 88 /min No Primary Care Physician [facility] 12-13-2024 13:44-0400 Respiratory rate 16 /min No Primary Care Physician [facility] 12-13-2024 13:44-0400 SaO2% (BldA) [Mass fraction] 100 % No Primary Care Physician [facility] 12-13-2024 13:44-0400 Systolic blood pressure 148 mm[Hg] No Primary Care Physician [facility] 12-13-2024 11:18-0400 Body height 167.64 cm No [facility] Care Physician [facility] 12-13-2024 11:18-0400 Body mass index (BMI) [Ratio] 20.5 kg/m2 No Primary Care Physician [facility] 12-13-2024 11:18-0400 Body weight 57.6 kg No Primary Care Physician [facility] 12-04-2024 16:39-0500 Body mass index (BMI) [Ratio] 24.7 kg/m2 No Primary Care Physician [facility] 12-04-2024 16:39-0500 Body temperature 98.1 [degF] No Primary Care Physician [facility] 12-04-2024 16:39-0500 Body weight 69.39 kg No Primary Care Physician [facility] 12-04-2024 16:39-0500 Diastolic blood pressure 77 mm[Hg] No Primary Care Physician [facility] 12-04-2024 16:39-0500 Heart rate 89 /min No Primary Care Physician [facility] 12-04-2024 16:39-0500 Respiratory rate 16 /min No Primary Care Physician [facility] 12-04-2024 16:39-0500 SaO2% (BldA) [Mass fraction] 98 % No Primary Care Physician [facility] 12-04-2024 16:39-0500 Systolic blood pressure 90 mm[Hg] No Primary Care Physician [facility] 2024 16:49-0500 Body temperature 97.8 [degF] No Primary Care Physician [facility] 2024 16:49-0500 Diastolic blood pressure 82 mm[Hg] No Primary Care Physician [facility] 2024 16:49-0500 Heart rate 96 /min No Primary Care Physician [facility] 2024 16:49-0500 Respiratory rate 20 /min No Primary Care Physician [facility] 2024 16:49-0500 SaO2% (BldA) [Mass fraction] 93 % No Primary Care Physician [facility] 2024 16:49-0500 Systolic blood pressure 135 mm[Hg] No Primary Care Physician [facility] 2024 12:43-0500 Body mass index (BMI) [Ratio] 20.1 kg/m2 No Primary Care Physician [facility] 2024 12:43-0500 Body weight 56.69 kg No Primary Care Physician [facility] 11-20-2024 16:46-0500 Body weight 58.5 kg No Primary Care Physician [facility] 11-20-2024 15:34-0500 Body mass index (BMI) [Ratio] 20.8 kg/m2 No Primary Care Physician [facility] 11-20-2024 15:34-0500 Body temperature 98.2 [degF] No Primary Care Physician [facility] 11-20-2024 15:34-0500 Diastolic blood pressure 81 mm[Hg] No Primary Care Physician [facility] 11-20-2024 15:34-0500 Heart rate 98 /min No Primary Care Physician [facility] 11-20-2024 15:34-0500 Respiratory rate 18 /min No Primary Care Physician [facility] 11-20-2024 15:34-0500 SaO2% (BldA) [Mass fraction] 96 % No Primary Care Physician [facility] 11-20-2024 15:34-0500 Systolic blood pressure 111 mm[Hg] No Primary Care Physician [facility] 11-12-2024 11:04-0500 Heart rate 81 /min No Primary Care Physician [facility] 11-12-2024 11:04-0500 Respiratory rate 14 /min No Primary Care Physician [facility] 11-12-2024 11:00-0500 Diastolic blood pressure 67 mm[Hg] No Primary Care Physician [facility] 11-12-2024 11:00-0500 Inhaled oxygen concentration 25 % No Primary Care Physician [facility] 11-12-2024 11:00-0500 SaO2% (BldA) [Mass fraction] 95 % No Primary Care Physician [facility] 11-12-2024 11:00-0500 Systolic blood pressure 111 mm[Hg] No Primary Care Physician [facility] 11-12-2024 09:42-0500 Body weight 56.1 kg No Primary Care Physician [facility] 11-12-2024 08:00-0500 Body temperature 97.6 [degF] No Primary Care Physician [facility] 11-12-2024 05:15-0500 Body mass index (BMI) [Ratio] 19.8 kg/m2 No Primary Care Physician [facility] 11-11-2024 20:25-0500 Inhaled oxygen flow rate 2 L/min No Primary Care Physician [facility] 10-23-2024 04:00-0500 Body temperature 98.6 [degF] No Primary Care Physician [facility] 10-23-2024 04:00-0500 Diastolic blood pressure 71 mm[Hg] No Primary Care Physician [facility] 10-23-2024 04:00-0500 Heart rate 87 /min No Primary Care Physician [facility] 10-23-2024 04:00-0500 Respiratory rate 16 /min No Primary Care Physician [facility] 10-23-2024 04:00-0500 SaO2% (BldA) [Mass fraction] 94 % No Primary Care Physician [facility] 10-23-2024 04:00-0500 Systolic blood pressure 119 mm[Hg] No Primary Care Physician [facility] 10-22-2024 13:29-0500 Body weight 55 kg No Primary Care Physician [facility] 10-21-2024 20:51-0500 Body mass index (BMI) [Ratio] 19 kg/m2 No Primary Care Physician [facility] 10-21-2024 19:38-0500 Inhaled oxygen flow rate 3 L/min No Primary Care Physician [facility] 10-21-2024 17:05-0500 Inhaled oxygen concentration 40 % No Primary Care Physician [facility] 09-19-2024 19:47-0500 Body temperature 98.1 [degF] No Primary Care Physician [facility] 09-19-2024 19:47-0500 Diastolic blood pressure 81 mm[Hg] No Primary Care Physician [facility] 09-19-2024 19:47-0500 Heart rate 77 /min No Primary Care Physician [facility] 09-19-2024 19:47-0500 Respiratory rate 19 /min No Primary Care Physician [facility] 09-19-2024 19:47-0500 SaO2% (BldA) [Mass fraction] 93 % No Primary Care Physician [facility] 09-19-2024 19:47-0500 Systolic blood pressure 121 mm[Hg] No Primary Care Physician [facility] 09-19-2024 17:47-0500 Body mass index (BMI) [Ratio] 25.3 kg/m2 No Primary Care Physician [facility] 09-19-2024 17:47-0500 Body weight 73.45 kg No Primary Care Physician [facility] 09-07-2024 12:55-0500 Body temperature 98.6 [degF] No Primary Care Physician [facility] 09-07-2024 12:55-0500 Diastolic blood pressure 76 mm[Hg] No Primary Care Physician [facility] 09-07-2024 12:55-0500 Heart rate 78 /min No Primary Care Physician [facility] 09-07-2024 12:55-0500 Respiratory rate 16 /min No Primary Care Physician [facility] 09-07-2024 12:55-0500 SaO2% (BldA) [Mass fraction] 99 % No Primary Care Physician [facility] 09-07-2024 12:55-0500 Systolic blood pressure 126 mm[Hg] No Primary Care Physician [facility] 09-07-2024 11:39-0500 Body mass index (BMI) [Ratio] 20.5 kg/m2 No Primary Care Physician [facility] 09-07-2024 11:39-0500 Body weight 59.42 kg No Primary Care Physician [facility] 10-31-2023 09:19-0500 Body temperature 98.3 [degF] No Primary Care Physician [facility] 10-31-2023 09:19-0500 Diastolic blood pressure 89 mm[Hg] No Primary Care Physician [facility] 10-31-2023 09:19-0500 Heart rate 88 /min No Primary Care Physician [facility] 10-31-2023 09:19-0500 Respiratory rate 18 /min No Primary Care Physician [facility] 10-31-2023 09:19-0500 SaO2% (BldA) [Mass fraction] 100 % No Primary Care Physician [facility] 10-31-2023 09:19-0500 Systolic blood pressure 110 mm[Hg] No Primary Care Physician [facility] 10-29-2023 05:54-0500 Body height 167.64 cm No Primary Care Physician [facility] 10-29-2023 05:54-0500 Body mass index (BMI) [Ratio] 21.5 kg/m2 No Primary Care Physician [facility] 10-29-2023 05:54-0500 Body weight 60.49 kg No Primary Care Physician [facility] 10-29-2023 05:14-0500 Body temperature 96.5 [degF] No Primary Care Physician [facility] 10-29-2023 05:14-0500 Diastolic blood pressure 58 mm[Hg] No Primary Care Physician [facility] 10-29-2023 05:14-0500 Heart rate 100 /min No Primary Care Physician [facility] 10-29-2023 05:14-0500 Respiratory rate 22 /min No Primary Care Physician [facility] 10-29-2023 05:14-0500 SaO2% (BldA) [Mass fraction] 99 % No Primary Care Physician [facility] 10-29-2023 05:14-0500 Systolic blood pressure 124 mm[Hg] No Primary Care Physician [facility] 10-29-2023 04:23-0500 Body height 167.64 cm No Primary Care Physician [facility] 10-29-2023 04:23-0500 Body mass index (BMI) [Ratio] 21.9 kg/m2 No Primary Care Physician [facility] 10-29-2023 04:23-0500 Body weight 61.6 kg No Primary Care Physician [facility] 10-15-2023 11:51-0500 Diastolic blood pressure 91 mm[Hg] No Primary Care Physician [facility] 10-15-2023 11:51-0500 Systolic blood pressure 157 mm[Hg] No Primary Care Physician [facility] 10-15-2023 11:21-0500 Body height 167.64 cm [facility] 10-15-2023 11:21-0500 Body mass index (BMI) [Ratio] 20.9 kg/m2 [facility] 10-15-2023 11:21-0500 Body temperature 96.7 [degF] [facility] 10-15-2023 11:21-0500 Body weight 58.96 kg [facility] 10-15-2023 11:21-0500 Diastolic blood pressure 130 mm[Hg] [facility] 10-15-2023 11:21-0500 Heart rate 52 /min [facility] 10-15-2023 11:21-0500 Respiratory rate 16 /min [facility] 10-15-2023 11:21-0500 SaO2% (BldA) [Mass fraction] 98 % [facility] 10-15-2023 11:21-0500 Systolic blood pressure 168 mm[Hg] [facility] 09-01-2023 01:06-0500 Heart rate 71 /min [facility] 09-01-2023 01:06-0500 Respiratory rate 16 /min [facility] 09-01-2023 01:06-0500 SaO2% (BldA) [Mass fraction] 98 % [facility] 09-01-2023 00:29-0500 Body height 167.64 cm [facility] 09-01-2023 00:29-0500 Body mass index (BMI) [Ratio] 23.3 kg/m2 [facility] 09-01-2023 00:29-0500 Body temperature 96.1 [degF] [facility] 09-01-2023 00:29-0500 Body weight 65.77 kg [facility] 09-01-2023 00:29-0500 Diastolic blood pressure 73 mm[Hg] [facility] 09-01-2023 00:29-0500 Systolic blood pressure 114 mm[Hg] [facility] 08-28-2023 10:33-0500 Body height 170.2 cm Linda Jose MD Work Phone: [facility] 08-28-2023 10:33-0500 Body temperature 97.9 [degF] Linda Jose MD Work Phone: [facility] 08-28-2023 10:33-0500 Body weight 63.87 kg Linda Jose MD Work Phone: [facility] 08-28-2023 10:33-0500 Diastolic blood pressure 84 mm[Hg] Linda Jose MD Work Phone: [facility] 08-28-2023 10:33-0500 Heart rate 109 /min Linda Jose MD Work Phone: [facility] 08-28-2023 10:33-0500 SaO2% (BldA) [Mass fraction] 96 % Linda Jose MD Work Phone: [facility] 08-28-2023 10:33-0500 Systolic blood pressure 130 mm[Hg] Linda Jose MD Work Phone: [facility] 05-29-2023 00:58-0400 Body height 167.64 cm No Primary Care Physician [facility] 05-29-2023 00:58-0400 Body mass index (BMI) [Ratio] 20.1 kg/m2 No Primary Care Physician [facility] 05-29-2023 00:58-0400 Body temperature 97.9 [degF] No Primary Care Physician [facility] 05-29-2023 00:58-0400 Body weight 56.69 kg No Primary Care Physician [facility] 05-29-2023 00:58-0400 Diastolic blood pressure 81 mm[Hg] No Primary Care Physician [facility] 05-29-2023 00:58-0400 Heart rate 100 /min No Primary Care Physician [facility] 05-29-2023 00:58-0400 Respiratory rate 20 /min No Primary Care Physician [facility] 05-29-2023 00:58-0400 SaO2% (BldA) [Mass fraction] 98 % No Primary Care Physician [facility] 05-29-2023 00:58-0400 Systolic blood pressure 120 mm[Hg] No Primary Care Physician [facility] 04-28-2023 07:58-0400 Heart rate 80 /min No Primary Care Physician [facility] 04-28-2023 05:47-0400 Body temperature 97.5 [degF] No Primary Care Physician [facility] 04-28-2023 05:47-0400 Diastolic blood pressure 79 mm[Hg] No Primary Care Physician [facility] 04-28-2023 05:47-0400 Respiratory rate 16 /min No Primary Care Physician [facility] 04-28-2023 05:47-0400 SaO2% (BldA) [Mass fraction] 98 % No Primary Care Physician [facility] 04-28-2023 05:47-0400 Systolic blood pressure 119 mm[Hg] No Primary Care Physician [facility] 04-27-2023 12:17-0400 Body height 167.64 cm No Primary Care Physician [facility] 04-27-2023 12:17-0400 Body weight 56.69 kg No Primary Care Physician [facility] 04-26-2023 20:56-0400 Body mass index (BMI) [Ratio] 20.1 kg/m2 No Primary Care Physician [facility] 04-26-2023 19:57-0400 Diastolic blood pressure 69 mm[Hg] No Primary Care Physician [facility] 04-26-2023 19:57-0400 Heart rate 79 /min No Primary Care Physician [facility] 04-26-2023 19:57-0400 Respiratory rate 16 /min No Primary Care Physician [facility] 04-26-2023 19:57-0400 SaO2% (BldA) [Mass fraction] 98 % No Primary Care Physician [facility] 04-26-2023 19:57-0400 Systolic blood pressure 105 mm[Hg] No Primary Care Physician [facility] 04-26-2023 19:54-0400 Body temperature 97.9 [degF] No Primary Care Physician [facility] 04-26-2023 16:53-0400 Body height 167.64 cm No Primary Care Physician [facility] 04-26-2023 16:53-0400 Body mass index (BMI) [Ratio] 20.4 kg/m2 No Primary Care Physician [facility] 04-26-2023 16:53-0400 Body weight 57.33 kg No Primary Care Physician [facility] 03-26-2023 00:12-0400 Body temperature 97.6 [degF] No Primary Care Physician [facility] 03-26-2023 00:12-0400 Diastolic blood pressure 78 mm[Hg] No Primary Care Physician [facility] 03-26-2023 00:12-0400 Heart rate 79 /min No Primary Care Physician [facility] 03-26-2023 00:12-0400 Respiratory rate 16 /min No Primary Care Physician [facility] 03-26-2023 00:12-0400 SaO2% (BldA) [Mass fraction] 97 % No Primary Care Physician [facility] 03-26-2023 00:12-0400 Systolic blood pressure 106 mm[Hg] No Primary Care Physician [facility] 03-26-2023 00:10-0400 Body height 170.18 cm No Primary Care Physician [facility] 03-26-2023 00:10-0400 Body mass index (BMI) [Ratio] 19.5 kg/m2 No Primary Care Physician [facility] 03-26-2023 00:10-0400 Body weight 56.69 kg No Primary Care Physician [facility] 02-23-2023 23:30-0400 Body mass index (BMI) [Ratio] 24.3 kg/m2 No Primary Care Physician [facility] 02-23-2023 23:30-0400 Body temperature 98.7 [degF] No Primary Care Physician [facility] 02-23-2023 23:30-0400 Body weight 68.5 kg No Primary Care Physician [facility] 02-23-2023 23:30-0400 Diastolic blood pressure 91 mm[Hg] No Primary Care Physician [facility] 02-23-2023 23:30-0400 Heart rate 85 /min No Primary Care Physician [facility] 02-23-2023 23:30-0400 Respiratory rate 18 /min No Primary Care Physician [facility] 02-23-2023 23:30-0400 SaO2% (BldA) [Mass fraction] 95 % No Primary Care Physician [facility] 02-23-2023 23:30-0400 Systolic blood pressure 130 mm[Hg] No Primary Care Physician [facility] 01-22-2023 15:12-0400 Respiratory rate 14 /min No Primary Care Physician [facility] 01-22-2023 14:07-0400 Body height 167.64 cm No Primary Care Physician [facility] 01-22-2023 14:07-0400 Body mass index (BMI) [Ratio] 21.3 kg/m2 No Primary Care Physician [facility] 01-22-2023 14:07-0400 Body temperature 97 [degF] No Primary Care Physician [facility] 01-22-2023 14:07-0400 Body weight 60 kg No Primary Care Physician [facility] 01-22-2023 14:07-0400 Diastolic blood pressure 82 mm[Hg] No Primary Care Physician [facility] 01-22-2023 14:07-0400 Heart rate 78 /min No Primary Care Physician [facility] 01-22-2023 14:07-0400 SaO2% (BldA) [Mass fraction] 100 % No Primary Care Physician [facility] 01-22-2023 14:07-0400 Systolic blood pressure 120 mm[Hg] No Primary Care Physician [facility] 12-24-2022 07:51-0400 Body temperature 97.5 [degF] No Primary Care Physician [facility] 12-24-2022 07:51-0400 Diastolic blood pressure 77 mm[Hg] No Primary Care Physician [facility] 12-24-2022 07:51-0400 Heart rate 79 /min No Primary Care Physician [facility] 12-24-2022 07:51-0400 Respiratory rate 18 /min No Primary Care Physician [facility] 12-24-2022 07:51-0400 SaO2% (BldA) [Mass fraction] 98 % No Primary Care Physician [facility] 12-24-2022 07:51-0400 Systolic blood pressure 134 mm[Hg] No Primary Care Physician [facility] 12-23-2022 23:29-0400 Body height 167.64 cm No Primary Care Physician [facility] 12-23-2022 23:29-0400 Body mass index (BMI) [Ratio] 19.9 kg/m2 No Primary Care Physician [facility] 12-23-2022 23:29-0400 Body weight 56 kg No Primary Care Physician [facility] 12-15-2022 18:20-0400 Body height 167.64 cm [facility] 12-15-2022 18:20-0400 Body temperature 97.8 [degF] [facility] 12-15-2022 18:20-0400 Diastolic blood pressure 81 mm[Hg] [facility] 12-15-2022 18:20-0400 Heart rate 91 /min [facility] 12-15-2022 18:20-0400 Respiratory rate 18 /min [facility] 12-15-2022 18:20-0400 SaO2% (BldA) [Mass fraction] 99 % [facility] 12-15-2022 18:20-0400 Systolic blood pressure 126 mm[Hg] [facility] 12-01-2022 23:24-0500 Body height 167.64 cm [facility] 12-01-2022 23:24-0500 Body mass index (BMI) [Ratio] 20.3 kg/m2 [facility] 12-01-2022 23:24-0500 Body temperature 97.6 [degF] [facility] 12-01-2022 23:24-0500 Body weight 57.15 kg [facility] 12-01-2022 23:24-0500 Diastolic blood pressure 70 mm[Hg] [facility] 12-01-2022 23:24-0500 Heart rate 90 /min [facility] 12-01-2022 23:24-0500 Respiratory rate 18 /min [facility] 12-01-2022 23:24-0500 SaO2% (BldA) [Mass fraction] 97 % [facility] 12-01-2022 23:24-0500 Systolic blood pressure 113 mm[Hg] [facility] 11-03-2022 15:46-0500 Diastolic blood pressure 80 mm[Hg] No Primary Care Physician [facility] 11-03-2022 15:46-0500 Heart rate 72 /min No Primary Care Physician [facility] 11-03-2022 15:46-0500 Respiratory rate 16 /min No Primary Care Physician [facility] 11-03-2022 15:46-0500 Systolic blood pressure 124 mm[Hg] No Primary Care Physician [facility] 11-03-2022 15:09-0500 SaO2% (BldA) [Mass fraction] 98 % No Primary Care Physician [facility] 11-03-2022 12:58-0500 Body height 167.64 cm No Primary Care Physician [facility] 11-03-2022 12:58-0500 Body mass index (BMI) [Ratio] 21.9 kg/m2 No Primary Care Physician [facility] 11-03-2022 12:58-0500 Body temperature 98.1 [degF] No Primary Care Physician [facility] 11-03-2022 12:58-0500 Body weight 61.7 kg No Primary Care Physician [facility] 10-23-2022 02:37-0500 Body temperature 98 [degF] No Primary Care Physician [facility] 10-23-2022 02:37-0500 Diastolic blood pressure 81 mm[Hg] No Primary Care Physician [facility] 10-23-2022 02:37-0500 Heart rate 96 /min No Primary Care Physician [facility] 10-23-2022 02:37-0500 Respiratory rate 18 /min No Primary Care Physician [facility] 10-23-2022 02:37-0500 SaO2% (BldA) [Mass fraction] 98 % No Primary Care Physician [facility] 10-23-2022 02:37-0500 Systolic blood pressure 133 mm[Hg] [facility] [facility] 01:44-0500 Body mass index (BMI) [Ratio] 20.6 kg/m2 No Primary Care Physician [facility] 10-23-2022 01:44-0500 Body weight 58 kg No Primary Care Physician [facility] 10-09-2022 14:57-0500 Diastolic blood pressure 85 mm[Hg] No Primary Care Physician [facility] 10-09-2022 14:57-0500 Heart rate 89 /min No Primary Care Physician [facility] 10-09-2022 14:57-0500 Respiratory rate 18 /min No Primary Care Physician [facility] 10-09-2022 14:57-0500 SaO2% (BldA) [Mass fraction] 97 % No Primary Care Physician [facility] 10-09-2022 14:57-0500 Systolic blood pressure 115 mm[Hg] No Primary Care Physician [facility] 10-09-2022 13:25-0500 Body height 167.64 cm No Primary Care Physician [facility] Work Phone: 10-09-2022 13:25-0500 Body mass index (BMI) [Ratio] 20.9 kg/m2 No Primary Care Physician [facility] 10-09-2022 13:25-0500 Body temperature 96.4 [degF] No Primary Care Physician [facility] 10-09-2022 13:25-0500 Body weight 58.96 kg No Primary Care Physician [facility] 09-09-2022 04:23-0500 Heart rate 85 /min No Primary Care Physician [facility] 09-09-2022 04:23-0500 Respiratory rate 18 /min No Primary Care Physician [facility] 09-09-2022 04:23-0500 SaO2% (BldA) [Mass fraction] 96 % No Primary Care Physician [facility] 09-09-2022 01:56-0500 Body temperature 97.6 [degF] No Primary Care Physician [facility] 09-09-2022 01:56-0500 Diastolic blood pressure 85 mm[Hg] No Primary Care Physician [facility] 09-09-2022 01:56-0500 Systolic blood pressure 127 mm[Hg] No Primary Care Physician [facility] 09-09-2022 01:54-0500 Body height 167.64 cm No Primary Care Physician [facility] Work Phone: 09-09-2022 01:54-0500 Body mass index (BMI) [Ratio] 19.6 kg/m2 No Primary Care Physician [facility] 09-09-2022 01:54-0500 Body weight 55.3 kg No Primary Care Physician [facility] 09-05-2022 11:08-0500 Heart rate 108 /min No Primary Care Physician [facility] 09-05-2022 11:08-0500 Respiratory rate 120 /min No Primary Care Physician [facility] 09-05-2022 10:15-0500 Body height 167.64 cm No Primary Care Physician [facility] Work Phone: 09-05-2022 10:15-0500 Body mass index (BMI) [Ratio] 20.9 kg/m2 No Primary Care Physician [facility] 09-05-2022 10:15-0500 Body temperature 100.8 [degF] No Primary Care Physician [facility] 09-05-2022 10:15-0500 Body weight 58.96 kg No Primary Care Physician [facility] 09-05-2022 10:15-0500 Diastolic blood pressure 90 mm[Hg] No Primary Care Physician [facility] 09-05-2022 10:15-0500 SaO2% (BldA) [Mass fraction] 97 % No Primary Care Physician [facility] 09-05-2022 10:15-0500 Systolic blood pressure 119 mm[Hg] No Primary Care Physician [facility] 08-14-2022 08:13-0500 Diastolic blood pressure 90 mm[Hg] No Primary Care Physician [facility] 08-14-2022 08:13-0500 Heart rate 87 /min No Primary Care Physician [facility] 08-14-2022 08:13-0500 Respiratory rate 16 /min No Primary Care Physician [facility] 08-14-2022 08:13-0500 SaO2% (BldA) [Mass fraction] 98 % No Primary Care Physician [facility] 08-14-2022 08:13-0500 Systolic blood pressure 133 mm[Hg] No Primary Care Physician [facility] 08-14-2022 06:50-0500 Body height 167.64 cm No Primary Care Physician [facility] Work Phone: 08-14-2022 06:50-0500 Body mass index (BMI) [Ratio] 20.9 kg/m2 No Primary Care Physician [facility] 08-14-2022 06:50-0500 Body temperature 97.5 [degF] No Primary Care Physician [facility] 08-14-2022 06:50-0500 Body weight 58.96 kg No Primary Care Physician [facility] 07-26-2022 22:29-0400 SaO2% (BldA) [Mass fraction] 98 % No Primary Care Physician [facility] 07-26-2022 21:54-0400 Diastolic blood pressure 84 mm[Hg] No Primary Care Physician [facility] 07-26-2022 21:54-0400 Heart rate 63 /min No Primary Care Physician [facility] 07-26-2022 21:54-0400 Respiratory rate 16 /min No Primary Care Physician [facility] 07-26-2022 21:54-0400 Systolic blood pressure 127 mm[Hg] No Primary Care Physician [facility] 07-26-2022 17:37-0400 Body height 167.64 cm No Primary Care Physician [facility] Work Phone: 07-26-2022 17:37-0400 Body mass index (BMI) [Ratio] 20.9 kg/m2 No Primary Care Physician [facility] 07-26-2022 17:37-0400 Body temperature 98.3 [degF] No Primary Care Physician [facility] 07-26-2022 17:37-0400 Body weight 58.96 kg No Primary Care Physician [facility] 07-18-2022 10:39-0400 Heart rate 85 /min No Primary Care Physician [facility] 07-18-2022 10:39-0400 Respiratory rate 19 /min No Primary Care Physician [facility] 07-18-2022 08:35-0400 SaO2% (BldA) [Mass fraction] 95 % No Primary Care Physician [facility] 07-18-2022 08:24-0400 Body temperature 97.8 [degF] No Primary Care Physician [facility] 07-18-2022 08:24-0400 Diastolic blood pressure 83 mm[Hg] No Primary Care Physician [facility] 07-18-2022 08:24-0400 Systolic blood pressure 112 mm[Hg] No Primary Care Physician [facility] 07-16-2022 10:02-0400 Body weight 55 kg No Primary Care Physician [facility] 07-15-2022 22:43-0400 Body mass index (BMI) [Ratio] 19.5 kg/m2 No Primary Care Physician [facility] 07-15-2022 21:33-0400 Body temperature 97.9 [degF] No Primary Care Physician [facility] Work Phone: 07-15-2022 21:33-0400 Diastolic blood pressure 90 mm[Hg] No Primary Care Physician [facility] Work Phone: 07-15-2022 21:33-0400 Heart rate 83 /min No Primary Care Physician [facility] Work Phone: 07-15-2022 21:33-0400 Respiratory rate 18 /min No Primary Care Physician [facility] Work Phone: 07-15-2022 21:33-0400 SaO2% (BldA) [Mass fraction] 98 % No Primary Care Physician [facility] Work Phone: 07-15-2022 21:33-0400 Systolic blood pressure 159 mm[Hg] No Primary Care Physician [facility] Work Phone: 07-15-2022 20:56-0400 Body height 167.64 cm No Primary Care Physician [facility] Work Phone: 07-15-2022 20:56-0400 Body mass index (BMI) [Ratio] 20.9 kg/m2 No Primary Care Physician [facility] Work Phone: 07-15-2022 20:56-0400 Body weight 58.96 kg No Primary Care Physician [facility] Work Phone: 07-09-2022 07:41-0400 Heart rate 92 /min No Primary Care Physician [facility] 07-09-2022 07:41-0400 SaO2% (BldA) [Mass fraction] 100 % No Primary Care Physician [facility] 07-09-2022 06:37-0400 Respiratory rate 16 /min No Primary Care Physician [facility] 07-09-2022 06:04-0400 Body mass index (BMI) [Ratio] 20.5 kg/m2 No Primary Care Physician [facility] 07-09-2022 06:04-0400 Body temperature 97.6 [degF] No Primary Care Physician [facility] 07-09-2022 06:04-0400 Body weight 59.6 kg No Primary Care Physician [facility] 07-09-2022 06:04-0400 Diastolic blood pressure 114 mm[Hg] No Primary Care Physician [facility] 07-09-2022 06:04-0400 Systolic blood pressure 129 mm[Hg] No Primary Care Physician [facility] 05-26-2022 08:25-0400 Body temperature 96.9 [degF] No Primary Care Physician [facility] Work Phone: 05-26-2022 08:25-0400 Diastolic blood pressure 71 mm[Hg] No Primary Care Physician [facility] Work Phone: 05-26-2022 08:25-0400 Heart rate 87 /min No Primary Care Physician [facility] Work Phone: 05-26-2022 08:25-0400 Respiratory rate 16 /min No Primary Care Physician [facility] Work Phone: 05-26-2022 08:25-0400 SaO2% (BldA) [Mass fraction] 94 % No Primary Care Physician [facility] Work Phone: 05-26-2022 08:25-0400 Systolic blood pressure 95 mm[Hg] No Primary Care Physician [facility] Work Phone: 05-24-2022 10:56-0400 Body height 170.18 cm No Primary Care Physician [facility] Work Phone: 05-24-2022 10:56-0400 Body weight 54.7 kg No Primary Care Physician [facility] Work Phone: 05-24-2022 01:48-0400 Body mass index (BMI) [Ratio] 18.8 kg/m2 No Primary Care Physician [facility] Work Phone: 05-24-2022 00:57-0400 Body temperature 97.6 [degF] No Primary Care Physician [facility] Work Phone: 05-24-2022 00:57-0400 Diastolic blood pressure 70 mm[Hg] No Primary Care Physician [facility] Work Phone: 05-24-2022 00:57-0400 Heart rate 90 /min No Primary Care Physician [facility] Work Phone: 05-24-2022 00:57-0400 Respiratory rate 11 /min No Primary Care Physician [facility] Work Phone: 05-24-2022 00:57-0400 SaO2% (BldA) [Mass fraction] 97 % No Primary Care Physician [facility] Work Phone: 05-24-2022 00:57-0400 Systolic blood pressure 120 mm[Hg] No Primary Care Physician [facility] Work Phone: 05-23-2022 23:21-0400 Body height 170.18 cm No Primary Care Physician [facility] Work Phone: 05-23-2022 23:21-0400 Body mass index (BMI) [Ratio] 18.8 kg/m2 No Primary Care Physician [facility] Work Phone: 05-23-2022 23:21-0400 Body weight 54.43 kg No Primary Care Physician [facility] Work Phone: 03-28-2022 19:52-0400 Diastolic blood pressure 71 mm[Hg] No Primary Care Physician [facility] Work Phone: 03-28-2022 19:52-0400 Heart rate 79 /min No Primary Care Physician [facility] Work Phone: 03-28-2022 19:52-0400 Respiratory rate 16 /min No Primary Care Physician [facility] Work Phone: 03-28-2022 19:52-0400 SaO2% (BldA) [Mass fraction] 97 % No Primary Care Physician [facility] Work Phone: 03-28-2022 19:52-0400 Systolic blood pressure 99 mm[Hg] No Primary Care Physician [facility] Work Phone: 03-28-2022 15:53-0400 Body height 170.18 cm No Primary Care Physician [facility] Work Phone: 03-28-2022 15:53-0400 Body mass index (BMI) [Ratio] 18.8 kg/m2 No Primary Care Physician [facility] Work Phone: 03-28-2022 15:53-0400 Body temperature 98.3 [degF] No Primary Care Physician [facility] Work Phone: 03-28-2022 15:53-0400 Body weight 54.43 kg No Primary Care Physician [facility] Work Phone: 03-26-2022 12:22-0400 Body mass index (BMI) [Ratio] 19.4 kg/m2 No Primary Care Physician [facility] Work Phone: 03-26-2022 12:22-0400 Body temperature 98.4 [degF] No Primary Care Physician [facility] Work Phone: 03-26-2022 12:22-0400 Body weight 56.24 kg No Primary Care Physician [facility] Work Phone: 03-26-2022 12:22-0400 Diastolic blood pressure 74 mm[Hg] No Primary Care Physician [facility] Work Phone: 03-26-2022 12:22-0400 Heart rate 92 /min No Primary Care Physician [facility] Work Phone: 03-26-2022 12:22-0400 Respiratory rate 14 /min No Primary Care Physician [facility] Work Phone: 03-26-2022 12:22-0400 SaO2% (BldA) [Mass fraction] 98 % No Primary Care Physician [facility] Work Phone: 03-26-2022 12:22-0400 Systolic blood pressure 126 mm[Hg] No Primary Care Physician [facility] Work Phone: 03-22-2022 12:18-0400 Body temperature 97.9 [degF] No Primary Care Physician [facility] Work Phone: 03-22-2022 12:18-0400 Diastolic blood pressure 78 mm[Hg] No Primary Care Physician [facility] Work Phone: 03-22-2022 12:18-0400 Heart rate 88 /min No Primary Care Physician [facility] Work Phone: 03-22-2022 12:18-0400 Respiratory rate 13 /min No Primary Care Physician [facility] Work Phone: 03-22-2022 12:18-0400 SaO2% (BldA) [Mass fraction] 99 % No Primary Care Physician [facility] Work Phone: 03-22-2022 12:18-0400 Systolic blood pressure 121 mm[Hg] No Primary Care Physician [facility] Work Phone: 03-20-2022 15:48-0400 Body height 170.18 cm No Primary Care Physician [facility] Work Phone: 03-20-2022 15:48-0400 Body weight 55 kg No Primary Care Physician [facility] Work Phone: 03-19-2022 22:46-0400 Body mass index (BMI) [Ratio] 19 kg/m2 No Primary Care Physician [facility] Work Phone: 03-19-2022 21:51-0400 Body temperature 97.4 [degF] [facility] Work Phone: 03-19-2022 21:51-0400 Diastolic blood pressure 89 mm[Hg] [facility] Work Phone: 03-19-2022 21:51-0400 Heart rate 95 /min [facility] Work Phone: 03-19-2022 21:51-0400 Respiratory rate 16 /min [facility] Work Phone: 03-19-2022 21:51-0400 SaO2% (BldA) [Mass fraction] 99 % [facility] Work Phone: 03-19-2022 21:51-0400 Systolic blood pressure 128 mm[Hg] [facility] Work Phone: 03-19-2022 20:28-0400 Body height 170.18 cm [facility] Work Phone: 03-19-2022 20:28-0400 Body mass index (BMI) [Ratio] 19 kg/m2 [facility] Work Phone: 03-19-2022 20:28-0400 Body weight 55.15 kg [facility] Work Phone: 02-12-2022 20:44-0400 Diastolic blood pressure 96 mm[Hg] [facility] Work Phone: 02-12-2022 20:44-0400 Heart rate 85 /min [facility] Work Phone: 02-12-2022 20:44-0400 Respiratory rate 15 /min [facility] Work Phone: 02-12-2022 20:44-0400 Systolic blood pressure 134 mm[Hg] [facility] Work Phone: 02-12-2022 19:07-0400 Body height 167.64 cm [facility] Work Phone: 02-12-2022 19:07-0400 Body mass index (BMI) [Ratio] 20.1 kg/m2 [facility] Work Phone: 02-12-2022 19:07-0400 Body temperature 97.9 [degF] [facility] Work Phone: 02-12-2022 19:07-0400 Body weight 56.69 kg [facility] Work Phone: 02-12-2022 19:07-0400 SaO2% (BldA) [Mass fraction] 98 % [facility] Work Phone: Encounters Encounter Date Encounter Type Care Provider Facility Start: 05-09-2025 End: 05-09-2025 Emergency department patient visit No Primary Care Physician -Emergency Department Work Phone: Start: 04-27-2025 End: 04-27-2025 Emergency department patient visit No Primary Care Physician -Emergency Department Work Phone: Start: 04-18-2025 Non-patient / Non-visit [facility] Work Phone: Start: 04-17-2025 Non-patient / Non-visit [facility]. [facility] Work Phone: Start: 04-16-2025 ambulatory No Primary Car e Physician Facility:[facility] Start: 04-16-2025 End: 04-18-2025 Evaluation and management [...] Non-patient / Non-visit Dr. Graham Tolbert DO [facility] Work Phone: Start: 11-11-2024 Non-patient / Non-visit Dr. Trang Valencia DO -[place] Work Phone: Start: 11-11-2024 ambulatory No Primary Car e Physician Facility:[facility] Start: 11-11-2024 End: 11-12-2024 Evaluation and management of inpatient Dr. Graham Tolbert DO -Intensive Care Unit Work Phone: Start: 10-22-2024 Non-patient / Non-visit Dr. Graham Tolbert DO [facility] Work Phone: Start: 10-21-2024 End: 10-23-2024 Evaluation and management of inpatient Dr. Graham Tolbert DO -Progressive Care Unit Work Phone: Start: 10-21-2024 ambulatory No Primary Car e Physician Facility:[facility] Start: 10-21-2024 Non-patient / Non-visit Dr. Troy Monroy MD -[place] Work Phone: Start: 09-19-2024 End: 09-19-2024 Emergency department patient visit Dr. Julius Matthews DO -Emergency Department Work Phone: Start: 09-07-2024 End: 09-07-2024 Emergency department patient visit Dr. Julius Matthews DO -Emergency Department Work Phone: Start: 08-03-2024 End: 08-03-2024 Emergency department patient visit No Primary Care Physician Facility:[facility] Start: 06-03-2024 End: 06-03-2024 Emergency department patient visit No Primary Care Physician Facility:[facility] Start: 06-02-2024 End: 06-02-2024 Emergency department patient visit No Primary Care Physician Facility:[facility] Start: 10-31-2023 Non-patient / Non-visit No Primary Care Physician [facility] [facility] Work Phone: Start: 10-30-2023 Non-patient / Non-visit No Primary Care Physician [facility] Work Phone: Start: 10-29-2023 End: 10-31-2023 Evaluation and management of inpatient [facility] Work Phone: Start: 10-29-2023 Non-patient / Non-visit No Primary Care Physician [facility] Work Phone: Start: 10-15-2023 End: 10-15-2023 Emergency department patient visit [facility]Emergency [facility] Work Phone: Start: 09-01-2023 End: 09-01-2023 Emergency department patient visit [facility] Work Phone: Start: 08-28-2023 End: 08-06-2024 Telephone encounter Linda Jose MD Work Phone: General Surgery Comment on above: 09/05/2023 COLON MEDI NA + 10/03/2023 R[facility] Start: 08-28-2023 End: 08-28-2023 ambulatory LINDA JOSE Facility:[facility] Start: 08-28-2023 End: 08-28-2023 Patient encounter procedure Linda Jose MD Work Phone: General Surgery Comment on above: Right inguinal herni a; Screening for colon cancer Start: 08-26-2023 End: 08-26-2023 ambulatory LINDA JOSE Facility:[facility] Start: 05-29-2023 End: 05-29-2023 Emergency department patient visit No Primary Care Physician [facility]-Emergency Department Work Phone: Start: 04-28-2023 Non-patient / Non-visit No Primary Care Physician [facility] Work Phone: Start: 04-27-2023 Non-patient / Non-visit No Primary Care Physician [facility] Work Phone: Start: 04-26-2023 End: 04-28-2023 Evaluation and management of inpatient No [facility] Work Phone: Start: 04-26-2023 Non-patient / Non-visit No Primary Care Physician [facility] Work Phone: Start: 03-26-2023 End: 03-26-2023 Emergency department patient visit No Primary Care Physician [facility]Emergency Department Start: 02-23-2023 End: 02-24-2023 Emergency department patient visit No Primary Care Physician [facility]Emergency Department Start: 01-22-2023 End: 01-22-2023 Emergency department patient visit No Primary Care Physician [facility]Emergency Department Start: 12-24-2022 Non-patient / Non-visit No Primary Care Physician [facility] Start: 12-23-2022 End: 12-24-2022 Evaluation and management of inpatient No Primary Care Physician [facility] Start: 12-15-2022 End: 12-15-2022 Emergency department patient visit [facility]Emergency Department Start: 12-01-2022 End: 12-02-2022 Emergency department patient visit [facility]Emergency Department Start: 11-03-2022 End: 11-03-2022 Emergency department patient visit No Primary Care Physician [facility]Emergency Department Start: 10-23-2022 End: 10-23-2022 Emergency department patient visit No Primary Care Physician [facility]Emergency [facility] Start: 10-09-2022 End: 10-09-2022 Emergency department patient visit No Primary Care Physician [facility]gency [facility] Start: 09-09-2022 End: 09-09-2022 Emergency department patient visit No Primary Care Physician [facility]Emergency [facility] Start: 09-05-2022 End: 09-05-2022 Emergency department patient visit No Primary Care Physician [facility]gency [facility] Start: 08-14-2022 End: 08-14-2022 Emergency department patient visit No Primary Care Physician [facility]Emergency [facility] Start: 07-26-2022 End: 07-26-2022 Emergency department patient visit No Primary Care Physician [facility]Emergency Department Start: 07-18-2022 Non-patient / Non-visit No Primary Care Physician [facility] Start: 07-17-2022 Non-patient / Non-visit No Primary Care Physician [facility] Start: 07-16-2022 Non-patient / Non-visit No Primary Care Physician [facility] Start: 07-15-2022 End: 07-18-2022 Evaluation and management of inpatient No Primary Care Physician [facility] Start: 07-09-2022 End: 07-09-2022 Emergency department patient visit No Primary Care Physician [facility]Emergency Department Start: 05-26-2022 Non-patient / Non-visit No Primary Care Physician [facility] Start: 05-25-2022 Non-patient / Non-visit No Primary Care Physician [facility] Start: 05-24-2022 Non-patient / Non-visit No Primary Care Physician [facility] Start: 05-24-2022 End: 05-26-2022 Evaluation and management of inpatient No Primary Care Physician [facility]-Progressive Care Unit Start: 03-28-2022 End: 03-28-2022 Emergency department patient visit No Primary Care Physician [facility]-Emergency Department Start: 03-26-2022 End: 03-26-2022 Patient encounter procedure No Primary Care Physician [facility] Start: 03-22-2022 Non-patient / Non-visit No Primary Care Physician [facility] Start: 03-21-2022 Non-patient / Non-visit No Primary Care Physician [facility] Start: 03-20-2022 Non-patient / Non-visit No Primary Care Physician [facility] Start: 03-19-2022 End: 03-22-2022 [facility] Start: 03-19-2022 Non-patient / Non-visit No Primary Care Physician [facility] Start: 02-12-2022 End: 02-12-2022 Emergency department patient visit [facility]Emergency Department Start: 06-05-2018 End: 06-06-2018 Emergency department patient visit ED PSYCHIATRY TEAM CONSULT [facility] Procedures Date Procedure Procedure Detail Performing Clinician Start: 05-09-2025 SARS-CoV-2, Influenz a & RSV (PCR) No Primary Care Physician Start: 05-09-2025 X-ray of chest, PA a nd lateral views No Primary Care Physician Start: 04-18-2025 Serum inorganic phos phate measurement [...] DTaP,Tdap,Td Vaccine (3 - Td or Tdap) [facility] Start: 04-27-2025 [facility] Start: 04-18-2025 Patient discharge [facility] Start: 04-16-2025 Following clinical pathway protocol [facility] Start: 04-16-2025 Ambulation without limitation [facility] Start: 04-16-2025 Aspiration precautions [facility] Start: 04-16-2025 Assessment of risk o f venous thromboembolism [facility] Start: 04-16-2025 Incentive spirometry [facility] Start: 04-16-2025 Insertion of cathete r into peripheral vein [facility] Start: 04-16-2025 Measuring intake and output [facility] Start: 04-16-2025 Providing care accor ding to standard [facility] Start: 04-16-2025 Referral to service [facility] Start: 04-16-2025 Seizure precautions [facility] Start: 04-16-2025 Tobacco use cessatio n education [facility] Start: 04-16-2025 [facility] Start: 04-16-2025 Urinalysis complete panel - Urine [facility] Start: 04-16-2025 Admission procedure [facility] Start: 04-16-2025 Verification routine [facility] Start: 04-16-2025 Hospital admission, emergency, from emergency room, medical nature [facility] Start: 04-16-2025 [facility] Start: 04-16-[facility]: [facility]-30-[facility]25 [facility] Start: 03-29-2025 [facility] Start: 03-29-2025 [facility] Start: 01-19-2025 [facility] [facility] Start: 12-13-2024 [facility] Start: 2024 [facility] Start: 2024 [facility] Start: 11-20-2024 [facility] Start: 11-12-2024 Patient discharge [facility] Start: 11-12-2024 End: 11-12-2024 [facility] Start: 11-12-2024 Care regimes management [facility] Start: 11-12-2024 Notification of physician [facility] Start: 11-11-2024 Assessment of risk o f venous thromboembolism [facility] Start: 11-11-2024 Catheterization of vein [facility] Start: 11-11-2024 Continuous pulse oximetry [facility] Start: 11-11-2024 Elevation of head of bed [facility] Start: 11-11-2024 Incentive spirometry [facility] Start: 11-11-2024 Inhalation therapy procedure [facility] Start: 11-11-2024 Insertion of cathete r into peripheral vein [facility] Start: 11-11-2024 Measuring intake and output [facility] Start: 11-11-2024 Oxygen therapy [facility] Start: 11-11-[facility]24 [facility]24 Physiotherapy of chest [facility] Start: 11-11-2024 Providing care accor ding to standard [facility] Start: 11-11-2024 Referral to service [facility] Start: 11-11-2024 Tobacco use cessatio n education [facility] Start: 11-11-2024 Vital signs measurements [facility] Start: 11-11-2024 End: 11-11-2024 [facility] Start: 11-11-2024 Following clinical pathway protocol [facility] Start: 11-11-2024 Admission procedure [facility] Start: 11-11-2024 Consultation [facility] Start: 11-11-2024 Dual pressure sponta neous ventilation support [facility] Start: 11-11-2024 Patient referral to dietitian [facility] Start: 10-22-2024 Patient discharge [facility] Start: 10-22-2024 Physiotherapy of chest [facility] Start: 10-21-2024 Following clinical pathway protocol [facility] Start: 10-21-2024 End: 10-21-2024 [facility] Start: 10-21-2024 Ambulation without limitation [facility] Start: 10-21-2024 Assessment of risk o f venous thromboembolism [facility] Start: 10-21-2024 Inhalation therapy procedure [facility] Start: 10-21-2024 Insertion of cathete r into peripheral vein [facility] Start: 10-21-2024 Measuring intake and output [facility] Start: 10-21-2024 Oxygen therapy [facility] Start: 10-21-2024 Providing care accor ding to standard [facility] Start: 10-21-2024 Referral to service [facility] Start: 10-21-2024 Admission procedure [facility] Start: 10-21-2024 Consultation [facility] Start: 10-21-2024 Patient referral to dietitian [facility] Start: 09-19-2024 [facility] Start: 09-19-2024 [facility] Start: 09-07-2024 End: 09-07-2024 [facility] Start: 06-02-2024 Covid-19 Vaccine ( season) Covid-19 Vaccine () [facility] Start: 06-02-2024 Influenza vaccination Influenza Vacc ine (#1) [facility] Start: 10-31-2023 Patient discharge [facility] Start: 10-29-2023 Assessment of risk o f venous thromboembolism [facility] Start: 10-29-2023 Inhalation therapy procedure [facility] Start: 10-29-2023 Introduction of urin mainor catheter [facility] Start: 10-29-2023 Notification of physician [facility] Start: 10-29-2023 Provision of activit y privileges [facility] Start: 10-29-2023 Referral to service [facility] Start: 10-29-2023 Vital signs measurements [facility] Start: 10-29-2023 End: 10-29-2023 [facility] Start: 10-29-2023 Following clinical pathway protocol [facility] Start: 10-29-2023 Hospital admission, emergency, from emergency room, medical nature [facility] Start: 10-29-2023 Admission procedure [facility] Start: 10-29-2023 [facility] Start: 10-15-2023 [facility] Start: 09-01-2023 [facility] Start: 06-02-2023 Covid-19 Vaccine ( season) Covid-19 Vaccine () [facility] Start: 06-02-2023 Influenza vaccination Influenza Vacc ine (#1) [facility] Start: 04-28-2023 Patient discharge [facility] Start: 04-27-2023 [facility] Start: 04-26-2023 Following clinical pathway protocol [facility] Start: 04-26-2023 Assessment of risk o f venous thromboembolism [facility] Start: 04-26-2023 Inhalation therapy procedure [facility] Start: 04-26-2023 Introduction of urin mainor catheter [facility] Start: 04-26-2023 Notification of physician [facility] Start: 04-26-2023 Oxygen therapy [facility] Start: 04-26-2023 Provision of activit y privileges [facility] Start: 04-26-2023 Referral to service [facility] Start: 04-26-2023 Tobacco use cessatio n education [facility] Start: 04-26-2023 Vital signs measurements [facility] Start: 04-26-2023 [facility] Start: 04-26-2023 Admission procedure [facility] Start: 04-26-2023 Hepatitis B surface antigen measurement [facility] Start: 04-26-2023 Hepatitis C antibody measurement [facility] Start: 04-26-2023 Procedure [facility] Start: 04-26-2023 Patient referral to dietitian [facility] Start: 12-24-2022 Patient discharge [facility] Start: 12-23-2022 Assessment of risk o f venous thromboembolism [facility] Start: 12-23-2022 Inhalation therapy procedure [facility] Start: 12-23-2022 Introduction of urin mainor catheter [facility] Start: 12-23-2022 Notification of physician [facility] Start: 12-23-2022 Oxygen therapy [facility] Start: 12-23-2022 Provision of activit y privileges [facility] Start: 12-23-2022 Referral to service [facility] Start: 12-23-2022 Vital signs measurements [facility] Start: 12-23-2022 [facility] Start: 12-23-2022 Following clinical pathway protocol [facility] Start: 12-23-2022 Measurement of occul t blood in stool specimen using immunoassay [facility] Start: 12-23-2022 Admission procedure [facility] Start: 12-23-2022 Vitamin B12 measurement [facility] Start: 12-23-2022 Patient referral to dietitian [facility] Start: 11-03-2022 Simple repair f/e/e/ n/l/m 2.5cm/< RPR F/E/E/N/L/M 2.5 CM/< [facility] Start: 10-02-2022 Depression Assessment Depression [facility] Start: 07-26-2022 Inhalation therapy procedure [facility] Start: 07-18-2022 Patient discharge [facility] Start: 07-16-2022 Following clinical pathway protocol [facility] Start: 07-15-2022 Assessment of risk o f venous thromboembolism [facility] Start: 07-15-2022 Fall prevention [facility] Start: 07-15-2022 Inhalation therapy procedure [facility] Start: 07-15-2022 Insertion of cathete r into peripheral vein [facility] Start: 07-15-2022 Introduction of urin mainor catheter [facility] Start: 07-15-2022 Notification of physician [facility] Start: 07-15-2022 Providing care accor ding to standard [facility] Start: 07-15-2022 Provision of activit y privileges [facility] Start: 07-15-2022 Referral to service [facility] Start: 07-15-2022 Tobacco use cessatio n education [facility] Start: 07-15-2022 Vital signs measurements [facility] Start: 07-15-2022 [facility] Start: 07-15-2022 Admission procedure [facility] Start: 07-15-2022 Verification routine [facility] Work Phone: Start: 07-15-2022 [facility] Work Phone: Start: 07-15-2022 Patient referral to dietitian [facility] Start: 07-09-2022 Pressurized/nonpress urize d inhalation treatment AIRWAY INHALATION TREATMENT [facility] Start: 05-26-2022 Patient discharge [facility] Work Phone: Start: 05-24-2022 Provision of activit y privileges [facility] Work Phone: Start: 05-24-2022 Assessment of risk o f venous thromboembolism [facility] Work Phone: Start: 05-24-2022 Insertion of cathete r into peripheral vein [facility] Work Phone: Start: 05-24-2022 Providing care accor ding to standard [facility] Work Phone: Start: 05-24-2022 [facility] Work Phone: Start: 05-24-2022 Following clinical pathway protocol [facility] Work Phone: Start: 05-24-2022 Verification routine [facility] Work Phone: Start: 05-24-2022 Admission procedure [facility] Work Phone: Start: 05-24-2022 Patient referral to dietitian [facility] Work Phone: Start: 03-28-2022 [facility] Work Phone: Start: 03-22-2022 Patient discharge [facility] Work Phone: Start: 03-19-2022 Following clinical pathway protocol [facility] Work Phone: Start: 03-19-2022 Assessment of risk o f venous thromboembolism [facility] Work Phone: Start: 03-19-2022 Catheterization of vein [facility] Work Phone: Start: 03-19-2022 Insertion of cathete r into peripheral vein [facility] Work Phone: Start: 03-19-2022 Providing care accor ding to standard [facility] Work Phone: Start: 03-19-2022 Referral to service [facility] Work Phone: Start: 03-19-2022 [facility] Work Phone: Start: 03-19-2022 Admission procedure [facility] Work Phone: Start: 03-19-2022 Verification routine [facility] Work Phone: Start: 03-19-2022 Patient referral to dietitian [facility] Work Phone: Start: 02-12-2022 Patient discharge [facility] Work Phone: Start: 2020 Cologuard (FIT-DNA) Cologuard (FIT-D NA) [facility] Start: 2020 Colonoscopy Colonoscopy [facility] Start: 2020 Colorectal Cancer Screening Colorectal Cancer Screening [facility] Start: [address] Colonography [facility] Start: 2020 Diabetes Screening Diabetes Screenin g [facility] Start: 2020 Fecal Occult Blood Fecal Occult Bloo d [facility] Start: 2020 Screening for malign ant neoplasm of colon [facility] Start: 2020 Sigmoidoscopy Sigmoidoscopy [facility] Start: 2010 Lipid 1996 panel - S davi or Plasma Lipid Screening [facility] Start: 2010 Lipid panel Lipid Screening [facility] Start: 1994 Hepatitis B Vaccine (1 of 3 - 19+ 3-dose series) Hepatitis B Vaccine (1 of 3 - 19+ 3-dose series) [facility] Start: 1993 Anxiety Screening Anxiety Screening [facility] Start: 1993 Depression Screening Depression Scre ening [facility] Start: 1993 Hepatitis C Screening Hepatitis C [facility] Start: 1993 Hepatitis C screening Hepatitis C [facility] Start: 1993 HIV Screening HIV Screening [facility] Start: 1993 HIV screening HIV Screening [facility] Start: 1975 Hepatitis B Vaccine (1 of 3 - 3-dose series) Hepatitis B Vaccine (1 of 3 - 3-dose series) [facility] Amphetamine [Mass/vo lume] in Urine [facility] Amphetamines [Presen ce] in Urine by Screen method >1000 ng/mL [facility] Benzodiazepine measurement, urine [facility] Benzodiazepine measurement, urine [facility] Bilirubin measuremen t, urine [facility] Cocaine measurement, urine [facility] Cocaine measurement, urine [facility] fentaNYL [Presence] in Urine by Screen method [facility] Hemoglobin [Presence ] in Urine [facility] Hepatitis B virus bazan rface IgG Ab [Presence] in Serum [facility] HIV 1+2 Ab+HIV1 p24 Ag [Presence] in Serum or Plasma by Immunoassay [facility] Magnesium measurement [facility] Measurement of 3,4-methylenedioxymethamp hetamine in urine [facility] Measurement of keton es in urine using dipstick [facility] Methadone measuremen t, urine [facility] Methadone measuremen t, urine [facility] Microscopic urinalysis [facility] Patient Education [facility] Work Phone: Patient referral [facility] Work Phone: PCR for Hepatitis C [facility] pH of Urine [facility] pH of Urine [facility] Phencyclidine [Prese nce] in Urine [facility] Phencyclidine [Prese nce] in Urine [facility] End: 08-28-2024 Screening colonoscopy COLONOSCOPY SCREENING Endoscopy Routine Screening for colon cancer 1 Occurrences starting 08/28/2023 until 08/28/2024 [facility] Work Phone: Comment on above: 1 Occurrences starti ng 08/28/2023 until 08/28/2024 Specific gravity of Urine [facility] Treponema sp Ab [Presence] in Serum [facility] Troponin T.cardiac [Mass/volume] in Serum or Plasma by High sensitivity method [facility] Urine barbiturate measurement [facility] Urine blood test [facility] Urine cannabinoid measurement [facility] Urine cannabinoid measurement [facility] Urine dipstick for glucose [facility] Urine dipstick for leukocyte esterase [facility] Urine dipstick for nitrite [facility] Urine dipstick for protein [facility] Urine examination [facility] Urine microscopy: epithelial cells [facility] Urine Microscopy: wh ite cells [facility] Urine opiate measurement [facility] Urine opiate measurement [facility] Urobilinogen [Presen ce] in Urine [facility] Immunizations Immunization Date Immunization Notes Care Provider Sher campos 10-21-2024 influenza, injectabl e, quadrivalent, preservative free No Primary Care Physician [facility] 11-03-2022 tetanus toxoid, redu kathryn diphtheria toxoid, and acellular pertussis vaccine, adsorbed No Primary Care Physician [facility] 03-17-2022 Covid (Moderna) No Primary C are Physician [facility] 03-16-2022 Covid (Moderna) No Primary C are Physician [facility] 05-22-2021 Covid (Moderna) [facility] 02-22-2021 Covid (Moderna) [facility] 09-23-2020 influenza, injectabl e, quadrivalent, preservative free [facility] 09-23-2020 influenza, seasonal, injectable [facility] 09-23-2020 influenza, seasonal, injectable, preservative free Linda Jose MD Work Phone: [facility] Work Phone: 09-23-2020 influenza virus vacc ine, unspecified formulation Linda Jose MD Work Phone: [facility] 02-25-2017 tetanus toxoid, redu kathryn diphtheria toxoid, and acellular pertussis vaccine, adsorbed [facility] 08-02-2013 pneumococcal polysaccharide vaccine, 23 valent Linda Jose MD Work Phone: [facility] Work Phone: 08-02-2013 Pneumococcal Vaccine [facility] Work Phone: 08-02-2013 pneumococcal vaccine , unspecified formulation No Primary Care Physician [facility] Payers Date Payer Category Payer Self-pay [id number] 2022 [facility] [place] [place] [id number] 2022-Present [phone] [address] [place] [address] Medicaid [id number] 2013 Medicaid [id number] 2013 Unknown [id number] Unknown [id number] Unknown [id number] Unknown [id number] Unknown [id number] [id number] Unknown [id number] [id number] Unknown [id number] [id number]2 Unknown [id number] 2.16.840.1.949755.3.579.2.462 Unknown [id number] 2.16.840.1.702985.3.579.2.462 Unknown [id number] 2.16.840.1.796021.3.579.2.462 Unknown [id number] 2.16.840.1.133729.3.579.2.462 Unknown [id number] 2.16.840.1.346284.3.579.2.462 Unknown [id number] 2.16.840.1.660044.3.579.2.462 Unknown [id number] 2.16840.1.111476.3.579.2.462 Unknown [id number] 2.16840.1.656947.3.579.2.462 Unknown [id number] 2.16.840.1.432172.3.579.2.462 Unknown [id number] 2.840.1.847687.3.579.2.462 Unknown [id number] 2.840.1.546882.3.579.2.462 Unknown [id number] 2.16.840.1.690224.3.579.2.462 Unknown [id number] 2.16.840.1.124609.3.579.2.462 Unknown [id number] 2.16.840.1.555899.3.579.2.462 Unknown [id number] 2.16.840.1.797122.3.579.2.462 Unknown [id number] 2.16.840.1.886060.3.579.2.462 Unknown [id number] [id number]2 Unknown [id number] [id number] Social History Date Type Detail Facility Start: 02-12-2022 End: 03-30-2025 Tobacco smoking status NHIS Unknown if ever smoked [facility] Start: 11-22-2020 None [facility] Start: 12-05-2020 Marijuana [facility] Start: 11-22-2020 Homeless [facility] Start: 02-20-2021 Non-smoker [facility] Start: 1975 Sex Assigned At Male [facility] Start: 08-26-2023 End: 01-19-2025 Tobacco smoking status NHIS Never smoked tobacco [facility] Start: 08-26-2023 Tobacco use and exposure Former smokeless tobacco user [facility] Start: 08-28-2023 Alcohol intake Current drinke r of alcohol (finding) [facility] Start: 08-28-2023 History of Social function [facility] Start: 08-28-2023 Tobacco use panel [facility] National Score (1-100), lower number is lower risk 89 [facility] Start: 08-26-2023 Tobacco Comment vaped [facility] Start: 1975 Sex Assigned At Not on file C [facility] Start: 12-13-2024 End: 01-19-2025 Sex Male (finding) [facility] Start: 04-16-2025 End: 05-09-2025 Tobacco smoking status NHIS Ex-smoker (finding) [facility] Goals Date Patient Goal Desired Activity /State Functional Status Date Assessment Result Facility 04-18-2025 Functional status Ambulates;Bathroom Priv ilege [facility] Work Phone: 11-12-2024 Functional status Ambulates [facility] Work Phone: 10-23-2024 Functional status Ambulates [facility] Work Phone: 10-31-2023 Functional status Up ad laverne [facility] Work Phone: 04-28-2023 Functional status Ambulates;Up a d laverne;Bathroom Privilege [facility] Work Phone: 04-28-2023 Functional status Ambulates;Up a d laverne;Bathroom Privilege [facility] Work Phone: 12-24-2022 Functional status Ambulates [facility] Work Phone: 07-18-2022 Functional status Activity Ability [facility] Work Phone: 07-17-2022 Functional status Up ad laverne [facility] Work Phone: 05-26-2022 Functional status Ambulates;Up ad laverne [facility] Work Phone: 03-22-2022 Functional status Activity Ability [facility] Work Phone: 03-21-2022 Functional status Ambulates;Up ad laverne [facility] Work Phone: Mental Status Date Assessment Result Facility 05-09-2025 Cognitive function Level Of Cons ciousness Awake;Alert;Appropriate;Follow s Commands [facility] Work Phone: 04-18-2025 Cognitive function Voice/Name [facility] Work Phone: 03-29-2025 Cognitive function Level Of Cons ciousness Awake;Drowsy [facility] Work Phone: 11-12-2024 Cognitive function Voice/Name [facility] Work Phone: 10-22-2024 Cognitive function Voice/Name [facility] Work Phone: 10-31-2023 Cognitive function Voice/Name [facility] Work Phone: 10-15-2023 Cognitive function Level Of Cons ciousness Awake;Alert;Appropriate;Follow s Commands [facility] Work Phone: 09-01-2023 Cognitive function Level Of Cons ciousness Awake;Alert;Appropriate;Follow s Commands [facility] Work Phone: 04-28-2023 Cognitive function Voice/Name [facility] Work Phone: 02-23-2023 Cognitive function Level Of Cons ciousness Awake;Alert;Appropriate;Follow s Commands [facility] Work Phone: 12-24-2022 Cognitive function Speech Pattern Garbled [facility] Work Phone: 12-24-2022 Cognitive function Appropriate;Cooperativ e [facility] Work Phone: 12-01-2022 Cognitive function Level Of Cons ciousness Awake;Alert;Appropriate;Follow s Commands [facility] Work Phone: 10-23-2022 Cognitive function Level Of Cons ciousness Awake;Alert;Appropriate;Follow s Commands [facility] Work Phone: 08-14-2022 Cognitive function Level Of Cons ciousness Awake;Alert;Appropriate;Follow s Commands [facility] Work Phone: 07-18-2022 Cognitive function Guarded [facility] Work Phone: 07-17-2022 Cognitive function Mood Description Appro priate [facility] Work Phone: 05-26-2022 Cognitive function Voice/Name [facility] Work Phone: 03-22-2022 Cognitive function Drowsy [facility] Work Phone: 03-21-2022 Cognitive function Anxious [facility] Work Phone: 02-12-2022 Cognitive function Level Of Cons ciousness Awake;Alert;Appropriate;Follow s Commands [facility] Work Phone: Clinical Notes 11-03-2022 to 05-09-2025 Note Date & Type Note Facility 05-09-2025 Radiology Diagnostic study note [facility] Imaging Services [address] [place] [address] Chest PA and Lateral MR#: [id number] Acct: [id number] Name: MICHAEL MCNEILL SANTOS Rep #: [id number] : 1975 M 49 From: Zaria Vines MD PCP: Care Physician,No Primary Status: REG ER Study:Chest PA and Lateral Date of Exam: 05/09/25 Exam# [id number] Ordering Dr: Suresh Henriquez MD PROCEDURE: CHEST PA AND LATERAL 05/09/2025 REASON FOR EXAM: COUGH SOB TECHNIQUE: CHEST PA AND LATERAL COMPARISON: March 29, 2025, October 21, 2024 FINDINGS: Hardware: None Heart: Normal Mediastinum: Normal Lungs: Scarring in the periphery of the right upper lobe and apex is unchanged. Otherwise, the lungs are clear. No pneumothorax or pleural effusion. Bones: The bones are unremarkable. RAD/Chest PA and Lateral IMPRESSION: Scarring in the periphery of the right upper lobe and apex unchanged. Otherwiseunremarkable Reading Location: [facility] CC: Dr. Darinel Henriquez MD; No Primary Care Physician ~ Linen Grader: Signed [facility] 04-27-2025 Discharge summary [facility] 04-18-2025 Discharge summary Note Date/Time April 18, 2025 12:49pm [facility] Medical Records Department [address] [place] [id number] Discharge Summary 04/18/25 1246 MR#: [id number] Acct: [id number] Name: MICHAEL MCNEILLN Rep #:[id number] : 1975 49 From: Tom Boland PCP: Care Physician,No Primary Status :ADM IN Location: [place] [address] Providers Date of Admission: 04/16/25 Date of [...] abuse [facility] Patient on phenobarbital based order set along with other adjunctive medications gabapentin, Bentyl, Vistaril, clonidine, Klonopin as needed for alcohol withdrawal symptom control. Patient magda thiamine and folate acid. CIWA monitor. manager configuration 180 consulted. Discussed with Broderick piano case maker. This is his nd admission. The patient did not want to see 18P as he has refused the service. 04/18: As per nursing staff, he is refusing phenobarbitone. He does not want to see 180 piano case maker as he had refused in the service [...] 71.0 H, Lymph % (Auto) 18.5 L, [place] % (Auto) 6.1, Eos % (Auto) 3.3, [...] % (Auto) 52.3, Lymph % (Auto) 27.5, [place]% (Auto) 9.0, Eos % (Auto) 9.8 H, [...] Clarity Clear, Urine pH 6.0, Ur Specific Hoffman 1.025, Urine Protein 30 H, Urine Glucose [...] Self Care Charges/Coding Visit Charges Inpatient E&M: 37402 Disch Hosp >30min 04/18/25 1249 <Electronically signed by Tom Owen MD> Cosigner Signature (if applicable): CC: Dr. Tom Owen MD; No Primary Care Physician~ Signed [facility] Work Phone: 1(595) 216-706807-18-2025 Discharge summary Author Tom Owen [facility] Note Date/Time April 18, 2025 12:4 6pm [facility] Medical Records Department [address] [place] [address] Instructions for Home/Discharge Instructions 04/18/25 1045 MR#: [id number] Acct: [id number] Name: MICHAEL MCNEILL Rep #:[id number] : 1975 49 From: Tom Boland PCP: [...] DO; No Primary Care Physician ~ Signed [facility] Work Phone: 1(536) 343-468407-18-2025 Hospital Discharge instructionsAdditional Instructions Follow-up with 180 outpatient Date of Discharge: 04/18/25[facility] Work Phone: 1([phone]) 466-730707-18-2025 Discharge summary [facility] Medical Records Department [address] [place] [address] Discharge Summary 04/18/25 1246 MR#: [id number] Acct: [id number] Name: MICHAEL MCNEILL SANTOS Rep #:[id number] : 1975 49 From: Tom Boland PCP: Care Physician,No Primary Status :ADM IN Location: [address] Providers Date of Admission: 04/16/25 Date of [...] magda thiamine and folate acid. CIWA monitor. manager configuration 180 consulted. Discussed with Broderick piano case maker. This is his nd admission. The patient [...] 71.0 H, Lymph % (Auto) 18.5 L, [place] % (Auto) 6.1, Eos % (Auto) 3.3, [...] % (Auto) 52.3, Lymph % (Auto) 27.5, [place]% (Auto) 9.0, Eos % (Auto) 9.8 H, [...] Clarity Clear, Urine pH 6.0, Ur Specific Hoffman 1.025, Urine Protein 30 H, Urine Glucose [...] Self Care Charges/Coding Visit Charges Inpatient E&M: 94172 Disch Hosp >30min 04/18/25 1249 Cosigner Signature (if applicable): CC: Dr. Tom Owen MD; No Primary Care Physician~ Signed [facility]07-18-2025 Discharge summary [facility] Medical Records Department [address] [place] [address] Instructions for Home/Discharge Instructions 04/18/25 1045 MR#: [id number] Acct: [id number] Name: MICHAEL MCNEILL SATNOS Rep #:[id number] : 1975 49 From: Tom Boland PCP: Care Physician,Gayathri Primary Status :ADM IN Discharge Instructions DC [...] 04/18/25 1246Tom Owen MD CC: Dr. Jaquan Villarreal, DO; No Primary Care Physician ~ Signed [facility]07-18-2025 [facility]07-18-2025 Discharge summary Author Tom Owen [facility] Note Date/Time April 18, 2025 12:4 6pm [facility] Medical Records Department [address] [place] [address] Instructions for Home/Discharge Instructions 04/18/25 1045 MR#: [id number] Acct: [id number] Name: MICHAEL MCNEILL Rep #:[id number] : 1975 49 From: Tmo Boland PCP: Care Physician,No Primary Status :ADM [...] DO; No Primary Care Physician ~ Signed [facility] Work Phone: 1(556) 813-925307-17-2025 Progress note Author Tom Owen [facility] Note Date/Time April 17, 2025 3:25 pm [facility] Medical Records Department [address] [place] [address] Progress Note - Hospitalist 04/17/2514 MR#: [id number] Acct: [id number] Name: MICHAEL MCNEILL SANTOS Rep #:[id number] : 1975 49 From: Tom Boland PCP: Care Physician,No Primary Status :ADM IN Location: [place] [address] Reason for Visit Chief Complaint: Requesting EtOH [...] 71.0 H, Lymph % (Auto) 18.5 L, [place] % (Auto) 6.1, Eos % (Auto) 3.3, [...] % (Auto) 52.3, Lymph % (Auto) 27.5, [place]% (Auto) 9.0, Eos % (Auto) 9.8 H, [...] Clarity Clear, Urine pH 6.0, Ur Specific Hoffman 1.025, Urine Protein 30 H, Urine Glucose [...] abuse -the patient is being admitted to MedSurg floor. Patient on phenobarbital based order set along with other adjunctive medications gabapentin, Bentyl, Vistaril, clonidine, Klonopin as needed for alcohol withdrawal symptom control. Patient magda thiamine and folate acid. CIWA monitor. manager configuration 180 consulted. Discussed with Broderick piano case maker. This is his 22nd admission. The patient [...] 71.0 H, Lymph % (Auto) 18.5 L, [place] % (Auto) 6.1, Eos % (Auto) 3.3, [...] % (Auto) 52.3, Lymph % (Auto) 27.5, [place]% (Auto) 9.0, Eos % (Auto) 9.8 H, [...] Clarity Clear, Urine pH 6.0, Ur Specific Hoffman 1.025, Urine Protein 30 H, Urine Glucose [...] PRESUMPTIVE POSITIVE Charges/Coding Visit Charges Inpatient E&M: 91756 Subs Hosp L2 04/17/25 1525 <Electronically signed by Tom Owen MD> Cosigner Signature (if applicable): CC: ~ Signed [facility] Work Phone: 1(891) 197-168707-17-2025 Progress note [facility] Medical Records Department [address] [place] [address] Progress Note - Hospitalist 04/17/25 0714 MR#: [id number] Acct: [id number] Name: MICHAEL MCNEILL SANTOS Rep #:[id number] : 1975 49 From: Tom Boland PCP: Care Physician,No Primary Status :ADM IN Location: [place] HD417-1 Reason for Visit Chief Complaint: Requesting EtOH [...] 71.0 H, Lymph % (Auto) 18.5 L, [place] % (Auto) 6.1, Eos % (Auto) 3.3, [...] % (Auto) 52.3, Lymph % (Auto) 27.5, [place]% (Auto) 9.0, Eos % (Auto) 9.8 H, [...] Clarity Clear, Urine pH 6.0, Ur Specific Hoffman 1.025, Urine Protein 30 H, Urine Glucose [...] abuse -the patient is being admitted to MedSurg floor. Patient on phenobarbital based order set along with other adjunctive medications gabapentin, Bentyl, Vistaril, clonidine, Klonopin as needed for alcohol withdrawal symptom control. Patient magda thiamine and folate acid. CIWA monitor. manager configuration 180 consulted. Discussed with Broderick piano case maker. This is his 22nd admission. The patient [...] 71.0 H, Lymph % (Auto) 18.5 L, [place] % (Auto) 6.1, Eos % (Auto) 3.3, [...] % (Auto) 52.3, Lymph % (Auto) 27.5, [place]% (Auto) 9.0, Eos % (Auto) 9.8 H, [...] Clarity Clear, Urine pH 6.0, Ur Specific Hoffman 1.025, Urine Protein 30 H, Urine Glucose [...] PRESUMPTIVE POSITIVE Charges/Coding Visit Charges Inpatient E&M: 51676 Subs Hosp L2 04/17/25 1525 Cosigner Signature (if applicable): CC: ~ Signed [facility]07-17-2025 History and physical note Author Jaquan Hong [facility] Note Date/Time April 17, 2025 6:18 am [facility] Medical Records Department [address] [place] [address] H&P Exam - Hospitalist 04/16/25 2241 MR#: [id number] Acct: [id number] Name: MICHAEL MCNEILL SANTOS Rep #:[id number] : 1975 49 From: Jaquan Ibarhim DO PCP: Care Physician,No Primary Status :ADM IN Location: [facility] VP527-9 HPI - General General Date of Admission: [...] on March 30, 2025 who presents to [facility] ER requesting EtOH detox. Mr. Mcneill [...] is expected to extend beyond 2 midnights. [facility] Medical History (Updated 04/16/25 @ 23:09 by [...] 71.0 H, Lymph % (Auto) 18.5 L, [place] % (Auto) 6.1, Eos % (Auto) 3.3, [...] 55 minutes. Charges/Coding Visit Charges Inpatient E&M: 57441 Init Hosp L2 04/17/25 0618 <Electronically signed by Jaquan Villarreal DO> Cosigner Signature (if applicable): CC: Dr. Jaquan Villarreal DO; No Primary Care Physician~ Signed [facility] Work Phone: [phone]) 232-846707-17-2025 History and physical note [facility] Medical Records Department [address] [place] [address] H&P Exam - Hospitalist 04/16/25 2241 MR#: [id number] Acct: [id number] Name: MICHAEL MCNEILL SANTOS Rep #:[id number] : 1975 49 From: Jaquan Ibrahim DO PCP: Care Physician,No Primary Status :ADM IN Location: [facility] XH111-8 HPI - General General Date of Admission: [...] on March 30, 2025 who presents to [facility] ER requesting EtOH detox. Mr. Mcneill [...] is expected to extend beyond 2 midnights. [facility] Medical History (Updated 04/16/25 @ 23:[address] Jaquan Villarreal, ) ETOH abuse Methamphetamine abuse Asthma Depression Anxiety [...] 71.0 H, Lymph % (Auto) 18.5 L, [place] % (Auto) 6.1, Eos % (Auto) 3.3, [...] 55 minutes. Charges/Coding Visit Charges Inpatient E&M: 67655 Init Hosp L2 04/17/25 0618 Cosigner Signature (if applicable): CC: Dr. Jaquan Villarreal, DO; No Primary Care Physician~ Signed [facility]07-17-2025 Evaluation note* Diagnosis Onset Date Resolution Status Admit Date Alcohol withdrawal acute April 012024 11:00pm ETOH abuse acute April 16 11:00pm Marijuana use acute April 16, 2025 11:00pm Methamphetamine use acute April 16, 2025 11:00pm Tobacco abuse acute April 16, 2025 11:00pm [facility] Work Phone: 1([phone]) 550-296707-17-2025 Evaluation note* Diagnosis Onset Date Resolution Status Admit Date ETOH abuse acute April 16 11:00pm Marijuana use acute April 16, 2025 11:00pm Methamphetamine use acute April 16, 2025 11:00pm Alcohol withdrawal inactive April 012024 11:00pm Tobacco abuse inactive April 16, 2025 11:00pm [facility] Work Phone: 1([phone] 261-490707-17-2025 Discharge summary Author Twan Garcia [facility] Note Date/Time April 16, 2025 10:4 8pm [facility] Medical Records Department [address] [place] [address] Emergency Department Summary 04/16/25 MR#: [id number] Acct: [id number] Name: MICHAEL MCNEILL SANTOS Rep #:[id number] : 1975 49 From: Twan Garcia MD PCP: Care Physician,No Primary Status :ADM IN Location: [address] History of Present Illness Chief Complaint: [...] Recent Illness/Hospitalization: No PFSH PFS Medical History ETOH abuse Methamphetamine [...] 71.0 H Lymph % (Auto) 18.5 L [place] % (Auto) 6.1 Eos % (Auto) 3.3 [...] Methamphetamine use Disposition Disposition: Acute Care Hospital [facility] What to do if you have Problems For any increased pain, shortness of breath, bleeding, nausea or vomiting, chestpain, or any unexpected problems, contact your Primary Care Provider. Call [facility] ([phone]) or report to the closest Emergency Room. Call 911 if necessary. 04/16/255 <Electronically signed by Twan Garcia MD> Cosigner Signature (if applicable): CC: No Primary Care Physician ~ Signed [facility] Work Phone: [phone]) 903-714507-16-2025 Discharge summary [facility] Medical Records Department [address] [place] [address] Emergency Department Summary 04/16/25 MR#: [id number] Acct: [id number] Name: MICHAEL MCNEILL SANTOS Rep #:[id number] : 1975 49 From: Twan Garcia MD PCP: Care Physician,No Primary Status :ADM IN Location: [place] [address] HPI History of Present Illness Chief Complaint: [...] symptoms: Yes Recent Illness/Hospitalization: No [facility] Medical History ETOH abuse Methamphetamine [...] 71.0 H Lymph % (Auto) 18.5 L [place] % (Auto) 6.1 Eos % (Auto) 3.3 [...] Methamphetamine use Disposition Disposition: Acute Care Hospital [facility] What to do if you have Problems For any increased pain, shortness of breath, bleeding, nausea or vomiting, chestpain, or any unexpected problems, contact your Primary Care Provider. Call [facility] ([phone]) or report tothe closest Emergency Room. Call 911 if necessary. 04/16/252247 Cosigner Signature (if applicable): CC: No Primary Care Physician ~ Signed [facility]07-16-2025 Evaluation note* Diagnosis Onset Date Resolution Status Admit Date Alcohol withdrawal acute April 012024 10:27pm ETOH abuse acute April 16 10:27pm Marijuana use acute April 16, 2025 10:27pm Methamphetamine use acute April 16, 2025 10:27pm Tobacco abuse acute April 16, 2025 10:27pm [facility] Work Phone: [phone]) 192-541506-28-2025 Discharge summary [facility] Medical Records Department [address] [place] [address] Emergency Department Summary 03/29/25 MR#: [id number] Acct: [id number] Name: MARKELLMICHAEL APARICIO SANTOS Rep #:[id number] : 1975 49 From: Sebastian Braswell DO [...] use states that he smokes meth. PFSH [facility] Medical History ETOH abuse Methamphetamine abuse [...] % (Auto) 59.0 Lymph % (Auto) 28.8 [place] % (Auto) 7.3 Eos % (Auto) 3.8 [...] IMPRESSION: COPD. NO ACUTE FINDINGS. Reading Location: [facility] Discharge Plan Triage Chief Complaint: Weakness ED Provider: Sebastian Braswell Dx/Rx/DC Orders Clinical Impression: Chest pain Prescriptions: No Action NK Primary Care Provider: Care Physician,No Primary Referrals: Care Physician,No Primary [Primary Care Provider] - Yolanda Garcia [facility], MUSIC DIRECTOR-C [[facility]] - Activity Restrictions/Additional Instructions: Follow-up with your doctor in outpatient. Return with worsening symptoms or anyconcerns. Print Language: Citizen Of [place] Disposition Disposition: Home, Self Care What to do if you have Problems For any increased pain, shortness of breath, bleeding, nausea or vomiting, chestpain, or any unexpected problems, contact your Primary Care Provider. Call [facility] ([phone]) or report tothe closest Emergency Room. Call 911 if necessary. 03/29/252238 Cosigner Signature (if applicable): CC: No Primary Care Physician ~ Signed [facility]06-28-2025 Radiology Diagnostic study note [facility] Imaging Services [address] [place] [address] Chest PA and Lateral MR#: [id number] Acct: [id number] Name: MICHAEL MCNEILL SANTOS Rep #: [id number] : 1975 M 49 From: Shelli John MD PCP: Care Physician,No Primary Status: REG ER Study:Chest PA and Lateral Date of Exam: 03/29/25 Exam# [id number] Ordering Dr: Yonny Braswell DO PROCEDURE: CHEST [...] IMPRESSION: COPD. NO ACUTE FINDINGS. Reading Location: [id number] CC: Dr. Sebastian Braswell DO; No Primary Care Physician ~ Linen Grader: Signed [facility]06-28-2025 Discharge summary Author Sebastian Braswell [facility] Note Date/Time March 29, 2025 10:3 9pm [facility] Medical Records Department [address] [place] [address] Emergency Department Summary 03/29/25 MR#: [id number] Acct: [id number] Name: MICHAEL MCNEILL SANTOS Rep #:[id number] : 1975 49 From: Sebastian Braswell DO [...] states that he smokes meth. [facility] Medical History ETOH abuse Methamphetamine [...] % (Auto) 59.0 Lymph % (Auto) 28.8 [place] % (Auto) 7.3 Eos % (Auto) 3.8 [...] IMPRESSION: COPD. NO ACUTE FINDINGS. Reading Location: [facility] Discharge Plan Triage Chief Complaint: Weakness ED Provider: Sebastian Braswell Dx/Rx/DC Orders Clinical Impression: Chest pain Prescriptions: No Action NK Primary Care Provider: Care Physician,No Primary Referrals: Care Physician,No Primary [Primary Care Provider] - Yolanda Garcia, MUSIC DIRECTOR-C [[facility]] - Activity Restrictions/Additional Instructions: Follow-up with your doctor in outpatient. Return with worsening symptoms or anyconcerns. Print Language: Citizen Of [place] Disposition Disposition: Home, Self Care What to do if you have Problems For any increased pain, shortness of breath, bleeding, nausea or vomiting, chestpain, or any unexpected problems, contact your Primary Care Provider. Call [facility] ([phone]) or report to the closest Emergency Room. Call 911 if necessary. 03/29/252238 <Electronically signed by Sebastian Braswell DO> Cosigner Signature (if applicable): CC: No Primary Care Physician ~ Signed [facility] Work Phone: 1(636) 455-330204-20-2025 Radiology Diagnostic study note [facility] Imaging Services [address] [place] [address] Chest PA and Lateral MR#: [id number] Acct: [id number] Name: MICHAEL MCNEILL SANTOS Rep #: [id number] : 1975 M 49 From: Shelli John MD PCP: Care Physician,No Primary Status: REG ER Study:Chest PA and Lateral Date of Exam: 01/19/25 Exam# [id number] Ordering Dr: Yee Castillo PROCEDURE: CHEST PA [...] CHANGE SINCE THE PRIOR EXAM. Reading Location: [id number] CC: MALIA Moctezuma; No Primary Care Physician ~ Linen Grader: Signed [facility]04-20-2025 Hospital Discharge instructions Additional Instructions [facility] [address] since you do not have a PCP. Their phone number is [phone].[facility] Work Phone: 1([phone]) 326-466303-14-2025 Discharge summary [facility] Medical Records Department [address] [place] [address] Emergency Department Summary 12/13/24 MR#: [id number] Acct: [id number] Name: MICHAEL MCNEILL SANTOS Rep #:[id number] : 1975 49 From: Hoamr Neives MD PCP: Care Physician,No Primary Status :REG [...] small albuterol inhaler, but states he needs "the big 1". He denies any fever, no chills, no chest pain associated with this. No leg swelling. He is here for analbuterol inhaler prescription and at least 2 weeks of cough if not longer. [facility] Medical History ETOH abuse Methamphetamine [...] department, but he states that it was "dinky", and he prefers a prescriptionfor an albuterol [...] midlung. Correlation with CT recommended. Reading Location: [facility] Discharge Plan Triage Chief Complaint: Cough ED [...] [Primary Care Provider] - Anmol Berry NP-C [[facility]] - 1 Week if not improving Activity Restrictions/Additional Instructions: Use albuterol inhaler 1 to 2 puffs inhaled every 4-6 hours as needed for shortness of breath. Follow-up with a primary care provider regarding your chronic cough. Return to the emergency department with increased difficulty breathing, new or worsening symptoms. Print Language: Citizen Of [place] Disposition Disposition: Home, Self Care What to do if you have Problems For any increased pain, shortness of breath, bleeding, nausea or vomiting, chestpain, or any unexpected problems, contact your Primary Care Provider. Call [facility] ([phone]) or report tothe closest Emergency Room. Call 911 if necessary. 12/13/24 1346 Cosigner Signature (if applicable): CC: No Primary Care Physician ~ Signed [facility]03-14-2025 Radiology Diagnostic study note [facility] Imaging Services [address] [place], [place] [address] Chest PA and Lateral MR#: [id number] Acct: [id number] Name: MICHAEL MCNEILL SANTOS Rep #: [id number] : 1975 M 49 From: Benjamin Alvarez MD PCP: Care Physician,No Primary Status: REG ER Study:Chest PA and Lateral Date of Exam: 12/13/24 Exam# [id number] Ordering Dr: Homar Nieves MD PROCEDURE: CHEST [...] midlung. Correlation with CT recommended. Reading Location: [place] [address] CC: Dr. 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 [facility]02-11-2025 [facility]01-21-2025 [facility]01-20-2025 Evaluation note* Diagnosis Onset Date Resolution Status Admit Date Acute asthma exacerbation resolved October 21, 2024 7:37pm Methamphetamine abuse resolved Oct 7:37pm Acute respiratory failure wi hypoxia and hypercapnia acute November 11, 2024 5:09pm Asthma exacerbation acute Febru mainor 2024 5:09pm Hyperglycemia acute November 112024 5:09pm Leukocytosis acute November 5:09pm Respiratory acidosis acute Febr 2024 5:09pm [facility] Work Phone: 1(673) 193-434801-20-2025 [facility]01-30-2024 Progress note Author Graham Tolbert [facility] October 31, 2023 10:15am Note Date/Time October 31, 2023 7 :34am [facility] Medical Records Department [address] [place] [address] Progress Note - Hospitalist 10/31/23 0731 MR#: [id number] Acct: [id number] Name: MICHAEL MCNEILL SANTOS Rep #:[id number] : 1975 47 From: Graham Tolbert DO PCP: Care Physician,No Primary Status :ADM IN Location: [place] [address] Reason for Visit Reason for Visit: Diagnoses [...] Cosigner Signature (if applicable): CC: ~ Signed [facility] Work Phone: 1(256) 991-327001-29-2024 Progress note Author Graham Tolbert [facility] October 30, 2023 11:01am Note Date/Time October 30, 2023 8 :26am [facility] Medical Records Department [address] [place] [address] Progress Note - Hospitalist 10/30/23 0823 MR#: [id number] Acct: [id number] Name: MICHAEL MCNEILL SANTOS Rep #:[id number] : 1975 47 From: Graham Tolbert DO PCP: Care Physician,No Primary Status :ADM IN Location: [place] [address] Reason for Visit Reason for Visit: Diagnoses [...] Total 4.58 / 1914.58 Balance 4.58 / 191.58 Lab / Micro Data 10/29/23 04:46 10/29/23 [...] is evaluated. Charges/Coding Visit Charges Inpatient E&M: 88226 Subs Hosp L2 10/30/23 1101 <Electronically signed by Graham Tolbert DO> Cosigner Signature (if applicable): CC: ~ Signed [facility] Work Phone: 1(343) 261-542101-28-2024 Progress note Author Amparo Nguyen [facility] October 29, 2023 1:57pm Note Date/Time October 29, 2023 9 :51am [facility] Medical Records Department [address] [place] [address] Progress Note 10/29/23 0949 MR#: [id number] Acct: [id number] Name: MICHAEL MCNEILL SANTOS Rep #:[id number] : 1975 47 From: Amparo Nguyen MD PCP: Care Physician,No Primary Status :ADM IN Location: [facility] WO203-2 Subjective Subjective Patient seen and examined. He [...] 78.9 H, Lymph % (Auto) 14.6 L, [place] % (Auto) 4.0, Eos % (Auto) 1.6, [...] prophylaxis; SCDs Charges/Coding Visit Charges Inpatient E&M: 45133 Subs Hosp L2 10/29/23 1357 <Electronically signed by Amparo Nguyen MD> Amparo Nguyen MD Cosigner Signature (if applicable): CC: ~ Signed [facility] Work Phone: 1(882) 862-303801-28-2024 Discharge summary Author Tae Walsh [facility] October 29, 2023 5:44am Note Date/Time October 29, 2023 4 :37am [facility] Medical Records Department [address] [place] [address] Emergency Department Summary 10/29/23 MR#: [id number] Acct: [id number] Name: MICHAEL MCNEILL SANTOS Rep #:[id number] : 1975 47 From: Tae Walsh MD PCP: Care Physician,No Primary Status :ADM IN Location: [address] HPI History of Present Illness Chief Complaint: [...] symptoms: Yes Recent Illness/Hospitalization: No [facility] Medical History (Updated 10/29/23 @ 05:44 by [...] Extremity: Negative for edema Neuro oriented x3 Murdock Coma Scale: document GCS findings Spontaneous Obeys [...] those results. Plan is to admit to [facility]. Dr. Mcintyre who is on this evening [...] Physician,No Primary Disposition Disposition: Acute Care Hospital [facility] What to do if you have Problems For any increased pain, shortness of breath, bleeding, nausea or vomiting, chestpain, or any unexpected problems, contact your Primary Care Provider. Call [facility] ([phone]) or report to the closest Emergency Room. Call 911 if necessary. 10/29/23 0544 <Electronically signed by Tae Walsh MD> Cosigner Signature (if applicable): CC: No Primary Care Physician ~ Signed [facility] Work Phone: 1(770) 579-389101-28-2024 History and physical note Author Alisha Mcintyre [facility] October 29, 2023 4:59am Note Date/Time October 29, 2023 4 :41am [facility] Medical Records Department [address] [place] [address] H&P Exam - Hospitalist 10/29/23 0437 MR#: [id number] Acct: [id number] Name: MICHAEL MCNEILL SANTOS Rep #:[id number] : 1975 47 From: Alisha Mcintyre MD [...] GERD, HTN, HLD who presents to the [facility] ED on 04/26/23 with acute EtOH [...] alcohol level, urine drug screen upon evaluation. [facility] Medical History (Updated 10/29/23 @ 04:39 [...] GERD, HTN, HLD who presents to the [facility] ED on 04/26/23 with acute EtOH [...] of admission. Charges/Coding Visit Charges Inpatient E&M: 70661 Init Hosp L2 10/29/23 045 <Electronically signed by Alisha Mcintyre MD> Cosigner Signature (if applicable): CC: Dr. Alisha Mcintyre MD; No Primary Care Physician~ Signed [facility] Work Phone: 1(396) 928-738112-19-2023 Telephone encounter Note* Telephone Encounter - Vida Perez - 09/19/2023 4:15 PM EST Office and [facility] unable to reach patient to go over surgery information and schedule PAT prior to surgery as patients number and emergency contacts number has been disconnected Surgery message sent to [place] to cancel surgery as of now Vida Perez Belt Loop Maker [facility]12-19-2023 Miscellaneous Notes* Telephone Encounter - Vida Perez - 09/19/2023 4:15 PM EST Office and [facility] unable to reach patient to go over surgery information and schedule PAT prior to surgery as patients number and emergency contacts number has been disconnected Surgery message sent to [place] to cancel surgery as of now Vida Perez Belt Loop Maker * Telephone Encounter - Vida Perez - 09/13/2023 9:05 AM EST Received call from [facility] in regards to patient not being able to be contacted. Number listed for patient rings twice then shows busy. Emergency contact listed is inactive. Will keep trying. Patient scheduled for hernia surgery with Dr. Jose in [place] on 10/03/2023. Colonoscopy was cancelled earlier this month. Vida Perez Please advise Belt Loop Maker * Telephone Encounter - Vida Perez - 08/28/2023 11:16 AM EST 09/05/2023 [facility] + 10/03/2023 [facility] documented in [facility]12[facility]2023 Telephone encounter Note * Telephone Encounter - Vida Perez - 09/13/2023 9:05 AM EST Received call from [facility] in regards to patient not being able to be contacted. Number listed for patient rings twice then shows busy. Emergency contact listed is inactive. Will keep trying. Patient scheduled for hernia surgery with Dr. Jose in [place] on 10/03/2023. Colonoscopy was cancelled earlier this month. Vida Perez Please advise Belt Loop Maker [facility]2023 Telephone encounter Note* Telephone Encounter - Vida Perez - 08/28/2023 11:16 AM EST 09/05/2023 [facility] + 10/03/2023 [facility]2023 NoteHNO ID: [id number] Author: Linda Jose MD Service: ? Author [...] ?C (97.9 ?F), height 170.2 cm (5' 7"), weight 63.9 kg (140 lb 12.8 oz), SpO2 96 %. Body mass index is 22.05 kg/m?. Head - Normocephalic. EOM intact with sclera clear and no icterus noted. (more content not included)...[facility]2023 History of Present illness Narrative* Linda [...] C (97.9 F), height 170.2 cm (5' 7"), weight 63.9 kg (140 lb 12.8 oz), [...] will be scheduled for the procedure at [facility] I have offered right inguinal hernia [...] studies/radiological imaging/medical records from other medical facilities, [id number] patient care, obtaining [facility], performing a medically appropriate examination, counseling and educating the patient/family/caregiver, and ordering and/or scheduling of medications/tests/procedures, and completing appropriate medical documentation. Linda Jose MD documented in this [facility]2023 Instructions* Patient Instructions* Linda Jose [...] If you do not have a responsible rear load truck driver (family member or friend) with [...] your exam. 2 09/2019 documented in this encounterA[facility]2023 Nurse Note* Katherine Biggs RN [...] NONE Katherine Biggs RN documented in this encounterAultman [facility]11-25-2023 NoteHNO ID: [id number] Author: Henri Hurley APRN.MOBILE APPLICATION ENGINEER Service: ? Author Type: Nurse Practitioner Type: [...] - CONSULT TO GENERAL SURGERY Henri Hurley APRN.CNPMi[facility]07-28-2023 Discharge summary Author Jaquan Mabry [facility] April 28, 2023 9:43am Note Date/Time April 28, 2023 9:35 am [facility] Medical Records Department [address] [place] [address] Discharge Summary 04/28/23 0935 MR#: [id number] Acct: [id number] Name: MICHAEL MCNEILL SANTOS Rep #:[id number] : 1975 47 From: Jaquan Mabry MD PCP: Care Physician,No Primary Status :ADM IN Location: [place] [address] Providers Date of Admission: 04/26/23 Date of [...] Self Care Charges/Coding Visit Charges Inpatient E&M: 04478 Disch Hosp >30min 04/28/23 0943 <Electronically signed by Jaquan Mabry MD> Cosigner Signature (if applicable): CC: Dr. Jaquan Mabry MD; No Primary Care Physician~ Signed [facility] Work Phone: 1(717) 719-323407-28-2023 Progress note Author Jaquan Mabry [facility] April 28, 2023 9:07am Note Date/Time April 28, 2023 7:17 am [facility] Medical Records Department [address] [place] [address] Progress Note - Hospitalist 04/28/23 0717 MR#: [id number] Acct: [id number] Name: MICHAEL MCNEILL SANTOS Rep #:[id number] : 1975 47 From: Jaquan Mabry MD PCP: Care Physician,No Primary Status :ADM IN Location: [place] [address] Reason for Visit Reason for Visit: Diagnoses [...] 35 Minutes Charges/Coding Visit Charges Inpatient E&M: 37026 Subs Hosp L2 04/28/23 0907 <Electronically signed by Jaquan Mabry MD> Cosigner Signature (if applicable): CC: ~ Signed [facility] Work Phone: 1(362) 691-234207-28-2023 Progress note Author Jaquan Mabry [facility] April 28, 2023 9:07am Note Date/Time April 28, 2023 7:17 am [facility] Medical Records Department [address] [place] [address] Progress Note - Hospitalist 04/28/23716 MR#: [id number] Acct: [id number] Name: MICHAEL MCNEILL SANTOS Rep #:[id number] : 1975 47 From: Jaquan Mabry MD PCP: Care Physician,No Primary Status :ADM IN Location: [place] [address] Reason for Visit Reason for Visit: Diagnoses [...] 35 Minutes Charges/Coding Visit Charges Inpatient E&M: 28080 Subs Hosp L2 04/28/23 0907 <Electronically signed by Jaquan Mabry MD> Cosigner Signature (if applicable): CC: ~ Signed [facility] Work Phone: 1(291) 259-523807-27-2023 Progress note Author Jaquan Mabry [facility] April 27, 2023 8:14am Note Date/Time April 27, 2023 7:02 am [facility] Medical Records Department [address] [place] [address] Progress Note - Hospitalist 04/27/23 0659 MR#: [id number] Acct: [id number] Name: MICHAEL MCNEILL SANTOS Rep #:[id number] : 1975 47 From: Jaquan Mabry MD PCP: Care Physician,No Primary Status :ADM IN Location: MS3 GZ414-3 Reason for Visit Reason for Visit: Diagnoses [...] % (Auto) 56.3, Lymph % (Auto) 22.0, [place] % (Auto) 6.0, Eos % (Auto) 14.7 [...] 35 Minutes Charges/Coding Visit Charges Inpatient E&M: 85063 Subs Hosp L2 04/27/23 0814 <Electronically signed by Jaquan Mabry MD> Cosigner Signature (if applicable): CC: ~ Signed [facility] Work Phone: 1(773) 540-645307-27-2023 History and physical note Author Alisha Mcintyre [facility] April 26, 2023 11:38pm Note Date/Time April 26, 2023 7:07 pm [facility] Medical Records Department [address] [place] [address] H&P Exam - Hospitalist 04/26/23 1904 MR#: [id number] Acct: [id number] Name: MICHAEL MCNEILL SANTOS Rep #:[id number] : 1975 47 From: Alisha Mcintyre MD PCP: Care Physician,No Primary Status :ADM IN Location: [facility] UY452-1 HPI - General General Date of Admission: 04/26/23 Date of Service: 04/26/23 Chief Complaint: Acute EtOH withdrawal HPI Narrative The patient is a 47 y/o M w/ PMHx: Hx CVA, Hx Chew tobacco use, Polysubstance abuse (cannabis, opiates, methampetamine), EtOH abuse, COPD/Asthma w/ known bulla, GERD, HTN, HLD who presents to the [facility] ED on 04/26/23 with acute EtOH [...] UDS pending upon requested evaluation of patient. [facility] Medical History (Updated 04/26/23 @ 19:21 [...] % (Auto) 56.3, Lymph % (Auto) 22.0, [place] % (Auto) 6.0, Eos % (Auto) 14.7 [...] GERD, HTN, HLD who presents to the [facility] ED on 04/26/23 with acute EtOH [...] encourage ambulation. Charges/Coding Visit Charges Inpatient E&M: 93356 Init Hosp L2 04/26/231922 <Electronically signed by [...] MD; No Primary Care Physician ~* Signed [facility] Work Phone: 1(364) 415-914207-27-2023 Discharge summary Author Graham Messina [facility] April 26, 2023 11:18pm Note Date/Time April 26, 2023 7:02 pm [facility] Medical Records Department [address] [place] [address] Emergency Department Summary 04/26/23 MR#: [id number] Acct: [id number] Name: MICHAEL MCNEILL SANTOS Rep #:[id number] : 1975 47 From: Graham Anderson PCP: Care Physician,No Primary Status :ADM IN Location: [address] History of Present Illness Chief Complaint: ETOH [...] any suicidal or homicidal ideations. [facility] Medical History Active substance abuse [...] % (Auto) 56.3 Lymph % (Auto) 22.0 [place] % (Auto) 6.0 Eos % (Auto) 14.7 [...] Alcohol withdrawal Disposition Disposition: Acute Care Hospital [facility] What to do if you have Problems For any increased pain, shortness of breath, bleeding, nausea or vomiting, chestpain, or any unexpected problems, contact your Primary Care Provider. Call [facility] ([phone]) or report to the closest Emergency Room. Call 911 if necessary. 04/26/235 <Electronically signed by Graham Messina DO> Cosigner Signature (if applicable): CC: No Primary Care Physician ~ Signed [facility] Work Phone: 1(786) 339-864003-25-2023 History and physical note Author Dr. Mcintyre [facility] December 23, 2022 10:52pm Note Date/Time December 23, 2022 10: 33pm [facility] Medical Records Department [address] [place] [address] History & Physical Exam 12/23/222224 MR#: [id number] Acct: [id number] Name: MICHAEL MCNEILL SANTOS Rep #:[id number] : 1975 47 From: Alisha Mcintyre MD PCP: Care Physician,No Primary Status :ADM IN Location: [facility] VO260-9 HPI - General General Date of Admission: [...] 07/15/22- 07/18/22 who now re-presents to the [facility] ED on 12/23/22 with onset of [...] UDS with positive amphetamine/MDMA, ethyl alcohol 25. [facility] Medical History (Updated 12/23/22 @ 22:48 [...] (Auto) 69.3, Lymph % (Auto) 17.4 L, [place] % (Auto) 5.3, Eos % (Auto) 7.0 [...] 07/15/22- 07/18/22 who now re-presents to the [facility] ED on 12/23/22 with onset of [...] 55 minutes. Charges/Coding Visit Charges Inpatient E&M: 28168 Init Hosp L2 12/23/22 2252 <Electronically signed by Alisha Mcintyre MD> Cosigner Signature (if applicable): CC: Dr. Alisha Mcintyre MD; No Primary Care Physician~ Signed [facility] Work Phone: 1(458) 721-526003-25-[address] De Anda [facility] December 23, 2022 10:30pm Note Date/Time December 23, 2022 10: 30pm [facility] Medical Records Department [address] [place] [address] Emergency Department Summary 12/23/22 MR#: [id number] Acct: [id number] Name: MICHAEL MCNEILL SANTOS Rep #:[id number] : 1975 47 From: Michael De Anda [...] (Auto) 69.3 Lymph % (Auto) 17.4 L [place] % (Auto) 5.3 Eos % (Auto) 7.0 [...] (Auto) Neut % (Auto) Lymph % (Auto) [place] % (Auto) Eos % (Auto) Baso % [...] your Primary Care Provider. Call [facility] ([phone]) or report to the closest Emergency Room. Call 911 if necessary. 12/23/222229 <Electronically signed by Michael De Anda DO> Cosigner Signature (if applicable): CC: No Primary Care Physician ~ Signed [facility] Work Phone: 1(912) 158-466203-16-[address] Garcia [facility] December 15, 2022 6:41pm Note Date/Time December 15, 2022 6:3 9pm [facility] Medical Records Department [address] [place] [address] Emergency Department Summary 12/15/22 MR#: [id number] Acct: [id number] Name: MICHAEL MCNEILL SANTOS Rep #:[id number] : 1975 47 From: Twan Garcia MD [...] your Primary Care Provider. Call [facility] ([phone]) or report to the closest Emergency Room. Call 911 if necessary. 12/15/22 184 <Electronically signed by Twan Garcia MD> Cosigner Signature (if applicable): CC: No Primary Care Physician ~ Signed [facility] Work Phone: 1(292) 995-707002-02-[address] Nieves [facility] November 03, 2022 3:22pm Note Date/Time November 03, 2022 1 :31pm [facility] Medical Records Department [address] [place] [address] Emergency Department Summary 11/03/22 MR#: [id number] Acct: [id number] Name: MICHAEL MCNEILL SANTOS Rep #:[id number] : 1975 46 From: Homar Nieves MD PCP: Care Physician,No Primary Status :REG ER Location: ED HPI HPI - Fall History of Present Illness Chief Complaint: Fall Narrative Narrative: 46-year-old male [facility] with [facility] to his face, mainly his upper lip. He states that he "blacked out" but was unsure for how long. He sustained injury to his mucosal surface of his upper lip. He denies any neck pain. He denies taking any medications and is unsure of his last tetanus immunization. He states that he stood up and just "blacked out". PFSH PFSH Medical History Active substance abuse [...] Neurologic: No headaches. No dizziness. No lightheadedness. "Blacked out". Skin: No rash. No change in color. [...] % (Auto) 60.9 Lymph % (Auto) 20.9 [place] % (Auto) 6.5 Eos % (Auto) 10.8 [...] your Primary Care Provider. Call [facility] ([phone]) or report to the closest Emergency Room. Call 911 if necessary. 11/03/22 1522 <Electronically signed by Homar Nieves MD> Cosigner Signature (if applicable): CC: No Primary Care Physician ~ Signed [facility] Work Phone: Consult note Author Charlie Cortes [facility] October 31, 2023 10:29am Note Date/Time October 31, 2023 1 0:29am [facility] Medical Records Department [address] [place] [address] Counseling Note - Pharmacy 10/31/23 1028 MR#: [id number] Acct: [id number] Name: MICHAEL MCNEILL SANTOS Rep #:[id number] : 1975 47 From: Charlie Cortes PCP: Care Physician,No Primary Status :ADM IN Location: [address] Med Reconciliation Pharmacy Service has performed discharge [...] 10/31/23 10/31/23 1029 <Electronically signed by Charlie esocbedo> Date _ Charlie Ratliffignedouard Signature (if applicable): Date CC: ~ Signed [facility] Work Phone: Discharge summary Author Dr. Mckeon [facility] December 24, 2022 11:31am Note Date/Time December 24, 2022 11: 17am [facility] Medical Records Department [address] [place] [address] Discharge Summary 12/24/22 1116 MR#: [id number] Acct: [id number] Name: MICHAEL MCNEILL SANTOS Rep #:[id number] : 1975 47 From: eNlson Mckeon DO PCP: Care Physician,No Primary Status :ADM IN Location: [place] [address] Providers Date of Admission: 12/23/22 Date of [...] was seen in the emergency room at [facility] requesting services for alcohol detox, patient's talk screen was positive for MDMA, amphetamines, and azithromycin alcohol level was 25. Patientwas [facility] to [facility], according to nursing, patient refused his [...] (Auto) 69.3, Lymph % (Auto) 17.4 L, [place] % (Auto) 5.3, Eos % (Auto) 7.0 [...] Mckeon DO; No Primary Care Physician~ Signed [facility] Work Phone: Discharge summary Author Jaquan Mabry [facility] April 28, 2023 9:43am Note Date/Time April 28, 2023 9:35 am [facility] Medical Records Department [address] [place] [address] Discharge Summary 04/28/23 0935 MR#: [id number] Acct: [id number] Name: MICHAEL MCNEILL Rep #:[id number] : 1975 47 From: Jaquan Mabry MD PCP: Care Physician,No Primary Status :ADM IN Location: [address] Providers Date of Admission: 04/26/23 Date of [...] Self Care Charges/Coding Visit Charges Inpatient E&M: 32903 Disch Hosp >30min 04/28/23 0943 <Electronically signed by Jaquan Mabry MD> Cosigner Signature (if applicable): CC: Dr. Jaquan Mabry MD; No Primary Care Physician~ Signed [facility] Work Phone: Discharge summary Author Tae Walsh [facility] October 29, 2023 5:44am Note Date/Time October 29, 2023 4 :37am [facility] Medical Records Department [address] [place] [address] Emergency Department Summary 10/29/23 MR#: [id number] Acct: [id number] Name: MARKELLMICHAEL APARICIO SANTOS Rep #:[id number] : 1975 47 From: Tae Walsh MD PCP: Care Physician,No Primary Status :ADM IN Location: [place] [address] HPI History of Present Illness Chief Complaint: [...] Prior similar symptoms: Yes Recent [facility] Medical History (Updated 10/29/23 @ 05:44 [...] Extremity: Negative for edema Neuro oriented x3 Murdock Coma Scale: document GCS findings Spontaneous Obeys [...] those results. Plan is to admit to [facility]. Dr. Mcintyre who is on this evening [...] Physician,No Primary Disposition Disposition: Acute Care Hospital [facility] What to do if you have Problems For any increased pain, shortness of breath, bleeding, nausea or vomiting, chestpain, or any unexpected problems, contact your Primary Care Provider. Call [facility] ([phone]) or report to the closest Emergency Room. Call 911 if necessary. 10/29/23 0544 <Electronically signed by Tae Walsh MD> Cosigner Signature (if applicable): CC: No Primary Care Physician ~ Signed [facility] Work Phone: Discharge summary Author Graham Tolbert [facility] October 31, 2023 10:21am Note Date/Time October 31, 2023 1 0:17am [facility] Medical Records Department [address] [place] [address] Discharge Summary 10/31/23 1015 MR#: [id number] Acct: [id number] Name: MICHAEL MCNEILL SANTOS Rep #:[id number] : 1975 47 From: Graham Tolbert DO PCP: Care Physician,No Primary Status :ADM IN Location: [place] [address] Providers Date of Admission: 10/29/23 Primary Care [...] Self Care Charges/Coding Visit Charges Inpatient E&M: 83918 Disch Hosp 10/31/23 1021 <Electronically signed by Graham Tolbert DO> Cosigner Signature (if applicable): CC: Dr. Graham Tolbert DO; No Primary Care Physician~ Signed [facility] Work Phone: Discharge summary Author Homar Nieves [facility] Note Date/Time December 13, 2024 1:4 6pm [facility] Medical Records Department [address] [place] [address] Emergency Department Summary 12/13/24 MR#: [id number] Acct: [id number] Name: MICHAEL MCNEILL SANTOS Rep #:[id number] : 1975 49 From: Homar Nieves MD [...] small albuterol inhaler, but states he needs "the big 1". He denies any fever, no chills, no chest pain associated with this. No leg swelling. He is here for analbuterol inhaler prescription and at least 2 weeks of cough if not longer. [facility] Medical History ETOH abuse Methamphetamine [...] department, but he states that it was "dinky", and he prefers a prescription for an [...] midlung. Correlation with CT recommended. Reading Location: [facility]- Discharge Plan Triage Chief Complaint: Cough ED [...] [Primary Care Provider] - Anmol Berry NP-C [[facility]] - 1 Week if not improving Activity Restrictions/Additional Instructions: Use albuterol inhaler 1 to 2 puffs inhaled every 4-6 hours as needed for shortness of breath. Follow-up with a primary care provider regarding your chronic cough. Return to the emergency department with increased difficulty breathing, new or worsening symptoms. Print Language: Citizen Of [place] Disposition Disposition: Home, Self Care What to do if you have Problems For any increased pain, shortness of breath, bleeding, nausea or vomiting, chestpain, or any unexpected problems, contact your Primary Care Provider. Call [facility] ([phone]) or report to the closest Emergency Room. Call 911 if necessary. 12/13/24 1346 <Electronically signed by Homar Nieves MD> Cosigner Signature (if applicable): CC: No Primary Care Physician ~ Signed [facility] Work Phone: Discharge summary Author Tom Owen [facility] Note Date/Time April 18, 2025 12:4 9pm [facility] Medical Records Department [address] [place] [address] Discharge Summary 04/18/25 1246 MR#: [id number] Acct: [id number] Name: MICHAEL MCNEILL SANTOS Rep #:[id number] : 1975 49 From: Tom Boland PCP: Care Physician,No Primary Status :ADM IN Location: [facility] FL594-2 Providers Date of Admission: 04/16/25 Date of [...] abuse -the patient is being admitted to [facility] floor. Patient on phenobarbital based order set along with other adjunctive medications gabapentin, Bentyl, Vistaril, clonidine, Klonopin as needed for alcohol withdrawal symptom control. Patient magda thiamine and folate acid. CIWA monitor. manager configuration 180 consulted. Discussed with Broderick piano case maker. This is his nd admission. The patient did not want to see 18P as he has refused the service. 04/18: As per nursing staff, he is refusing phenobarbitone. He does not want to see 180 piano case maker as he had refused in the service [...] 71.0 H, Lymph % (Auto) 18.5 L, [place] % (Auto) 6.1, Eos % (Auto) 3.3, [...] % (Auto) 52.3, Lymph % (Auto) 27.5, [place]% (Auto) 9.0, Eos % (Auto) 9.8 H, [...] Clarity Clear, Urine pH 6.0, Ur Specific Hoffman 1.025, Urine Protein 30 H, Urine Glucose [...] Self Care Charges/Coding Visit Charges Inpatient E&M: 78480 Disch Hosp >30min 04/18/25 1249 <Electronically signed by Tom Owen MD> Cosigner Signature (if applicable): CC: Dr. Tom Owen MD; No Primary Care Physician~ Signed [facility] Work Phone: Discharge summary Author Tae Walsh [facility] Note Date/Time April 27, 2025 10:0 5am [facility] Medical Records Department [address] [place] [address] Emergency Department Summary 04/27/25 MR#: [id number] Acct: [id number] Name: MICHAEL MCNEILL Rep #:[id number] : 1975 49 From: Tae Walsh MD PCP: Care Physician,No Primary Status :PRE ER Location: ED HPI History of Present Illness Chief Complaint: Meds Only Detail of Chief Complaint: Needs metered-dose inhaler Informant: patient Onset/Context/Timing Onset: Today Context: Sudden Onset Timing: Continuous Quality: Patient states he needs a refill on his metered-dose inhaler Current Severity: Not applicable Maximum Severity: Not applicable Worsened by: Whether Relieved by: No refills Associated Symptoms Associated Symptoms: None Narrative Narrative: Patient is a 49-year-old male with history of asthma. He states he has been using his Hailer more because of the weather. His metered-dose inhaler reads 0 puffs remaining. Patient has no other symptoms. He denies fever, chills night sweats. Denies rhinorrhea congestion postnasal drainage sore throat. Does havea slight cough. Prior similar symptoms: No Recent Illness/Hospitalization: No PFSH PFSH Medical History Tobacco abuse Alcohol withdrawal ETOH abuse Methamphetamine abuse Asthma Depression Anxiety Methamphetamine abuse Ankle fracture, left Bipolar disorder Depression Anxiety Past history of chewing tobacco use Asthma with COPD Anxiety and depression Inguinal hernia bilateral, non-recurrent Hypertension Stroke/cerebrovascular accident Alcohol abuse Bulla of lung GERD (gastroesophageal reflux disease) Home Medications ?Medication ?Instructions ?Recorded ?Last Taken ?Type albuterol sulfate 90 mcg/actuation 2 puff inhalation Q 4H PRN PRN 04/27/25 Unknown Rx aerosol inhaler (Ventolin HFA) Wheezing ##1 Allergy/AdvReac Type Severity Reaction Status Date / Time No Known Allergies Allergy Verified 04/27/25 09:52 Family History Father Alcoholism CAD (coronary artery [...] chills, fever(s), subjective, sweats or weight loss ENT ENT ED: Denies ear pain, rhinorrhea or sore throat Cardiovascular Cardiovascular: Denies chest pain or palpitations Respiratory/Chest Respiratory/Chest: Reports cough, dyspnea and other Details: Wheezing ; Denies dyspnea on exertion Hematologic/Lymphatic Hematologic/Lymphatic: Reports systems reviewed and no addt'l complaints, exceptas documented Allergic/Immunologic Allergic/Immunologic ED: Denies mouth swelling, tongue swelling or urticaria EXAM Physical Exam Const Vital Signs: 04/27/25 09:52 Temperature 97.9 F Temperature Source Oral Pulse Rate 82 Respiratory Rate 15 Blood Pressure 108/91 H Blood Pressure Mean 96 Pulse Ox 99 Oxygen Delivery Method Room Air Positive well nourished and well developed General Appearance ED: well developed and NAD; Negative for pallor HEENT Reports moist mucous membranes HEENT Narrative: Head is atraumatic and normocephalic. Ears are normal. Eyes PERRL and EOMs intact bilaterally General Eye ED: Negative for scleral icterus Resp normal respiratory effort and clear to auscultation bilaterally Cardio regular rate, regular rhythm, S1 normal heart sound, S2 normal heart sound and no murmurs Extremity normal to inspection Neuro oriented x3 and CN's II-XII intact bilaterally Sensorium / Orientation: alert Psych mental status grossly normal Skin no rashes or lesions noted, no wounds and skin turgor normal General Skin Exam: Negative for jaundice or pallor MDM MDM MDM Narrative Medical decision making narrative: Patient presents for medication refill. Patient's vitals are unremarkable. Patient was discharged with prescription for metered-dose inhaler with refills. History & Record Review Additional record(s) reviewed:: Prior inpatient record (Patient was admitted April for alcohol withdrawal.) and Prior ED visit (Patient was seen in March for exacerbation of his asthma.) Discharge Plan Triage Chief Complaint: Meds Only ED Provider: Tae Walsh Dx/Rx/DC Orders Clinical Impression: Encounter for medical screening examination, Difficulty refilling prescriptions Instructions: ED Screening Exam Medical Nonurgent Prescriptions: New albuterol sulfate [Ventolin HFA] 90 mcg/actuation HFA aerosol inhaler 2 puff inhalation Q4H PRN PRN (Reason: Wheezing) Qty: 1 2RF Primary Care Provider: Care Physician,No Primary Referrals: Care Physician,No Primary [Primary Care Provider] - Activity Restrictions/Additional Instructions: Follow-up with your primary care physician as needed. The name of your doctor/provider is located on your insurance card. Print Language: Citizen Of [place] Disposition Disposition: Home, Self Care What to do if you have Problems For any increased pain, shortness of breath, bleeding, nausea or vomiting, chestpain, or any unexpected problems, contact your Primary Care Provider. Call [facility] ([phone]) or report to the closest Emergency Room. Call 911 if necessary. 04/27/25 1005 <Electronically signed by Tae Walsh MD> Cosigner Signature (if applicable): CC: No Primary Care Physician ~ Signed [facility] Work Phone: evaluation noteNo assessment information available [facility] Work Phone: evaluation note* Diagnosis Onset Date Resolution Status Desire for detoxification [place] Alcoholism [facility] Work Phone: Evaluation note* Diagnosis Onset Date Resolution Status Desire for detoxification [place] Alcoholism chronic Alcohol intoxication acute Viral URI with cough acute [facility] Work Phone: Evaluation note* Diagnosis Onset Date Resolution Status Alcoholism chronic Acute alcohol withdrawal res olved Alcohol intoxication acute Viral URI with cough acute Alcohol withdrawal acute Desire for detoxification [place] Substance abuse acute Alcoholism chronic [facility] Work Phone: Evaluation note* Diagnosis Onset Date Resolution Status Alcoholism chronic Acute alcohol withdrawal res olved Alcohol intoxication acute Viral URI with cough acute Alcoholism chronic Alcohol withdrawal resolved Alcohol abuse acute [facility] Work Phone: Evaluation note* Diagnosis Onset Date Resolution Status Alcoholism chronic Alcohol withdrawal resolved Alcohol abuse acute Acute alcohol withdrawal res olved [facility] Work Phone: Evaluation note* Diagnosis Onset Date Resolution Status Alcohol abuse acute Acute alcohol withdrawal res olved [facility] Work Phone: Evaluation note* Diagnosis Onset Date Resolution Status Alcohol withdrawal acute [facility] Work Phone: Evaluation note* Diagnosis Onset Date Resolution Status Alcohol withdrawal acute Desire for detoxification [place] [facility] Work Phone: Evaluation note* Diagnosis Onset Date Resolution Status Alcohol withdrawal resolved Desire for detoxification re solved [facility] Work Phone: Evaluation note* Diagnosis Right inguinal hernia Inguinal hernia without mention of obstruction or gangrene, unilateral or unspecified, (not specified as recurrent) Screening for colon cancer Special screening for malignant neoplasms, colon Right inguinal hernia Inguinal hernia without mention of obstruction or gangrene, unilateral or unspecified, (not specified as recurrent) [facility] this encounter [facility] Diagnosis Onset Date Resolution Status Alcohol abuse acute Alcohol dependence acute Desire for detoxification [place] Alcoholism chronic [facility] Work Phone: History and physical note Author Alisha Mcintyre [facility] April 26, 2023 7:23pm Note Date/Time April 26, 2023 7:07 pm [facility] Medical Records Department [address] [place] [id number] H&P Exam - Hospitalist 04/26/23 1904 MR#: [id number] Acct: [id number] Name: MICHAEL MCNEILL SANTOS Rep #:[id number] : 1975 47 From: Alisha Mcintyre MD [...] GERD, HTN, HLD who presents to the [facility] ED on 04/26/23 with acute EtOH [...] UDS pending upon requested evaluation of patient. [facility] Medical History (Updated 04/26/23 @ 19:21 [...] % (Auto) 56.3, Lymph % (Auto) 22.0, [place] % (Auto) 6.0, Eos % (Auto) 14.7 [...] GERD, HTN, HLD who presents to the [facility] ED on 04/26/23 with acute EtOH withdrawal for detoxification treatment. #1. Acute EtOH Withdrawal: Will admit to [place], routine labs obtained in the ED upon [...] encourage ambulation. Charges/Coding Visit Charges Inpatient E&M: 77248 Init Hosp L2 04/26/231922 <Electronically signed by Alisha Mcintyre MD> Cosigner Signature (if applicable): CC: Dr. Alisha Mcintyre MD; No Primary Care Physician~ Signed [facility] Work Phone: History and physical note Author Alisha Mcintyre [facility] October 29, 2023 4:59am Note Date/Time October 29, 2023 4 :41am [facility] Medical Records Department [address] [place] [id number] H&P Exam - Hospitalist 10/29/23 0437 MR#: [id number] Acct: [id number] Name: MARKELLMICHAEL SANTOS Rep #:[id number] : 1975 47 From: Alisha Mcintyre MD [...] GERD, HTN, HLD who presents to the [facility] ED on 04/26/23 with acute EtOH [...] alcohol level, urine drug screen upon evaluation. [facility] Medical History (Updated 10/29/23 @ 04:39 [...] GERD, HTN, HLD who presents to the [facility] ED on 04/26/23 with acute EtOH [...] of admission. Charges/Coding Visit Charges Inpatient E&M: 02307 Init Hosp L2 10/29/23 9300 <Electronically signed by Alisha Mcintyre MD> Cosigner Signature (if applicable): CC: Dr. Alisha Mcintyre MD; No Primary Care Physician~ Signed [facility] Work Phone: Hospital Discharge instructions Additional Instructions Follow-up with a dentist as soon as possible for your right front tooth avulsion.[facility] Work Phone: Hospital Discharge instructions Additional Instructions Wash your hand thoroughly daily. Apply antibiotic ointment to all this cuts on your left hand twice a day. Apply hand moisturizer twice a day your skin is getting very dry. Currently there is no signs of infection. Watch for pus, red streaks, fever or swelling of seen needs to be reevaluated.[facility] Work Phone: [phone] Discharge instructions Additional Instructions Please follow-up with the PCP I referred you to.[facility] Work Phone: Hospital Discharge instructions Additional Instructions See your physician as scheduled in April.[facility] Work Phone: [phone] Discharge instructions Additional Instructions Please use your inhaler as directed to control any asthma symptoms and return to the ER should you have any further concernsW[facility] Work Phone: Hospital Discharge instructions Additional Instructions Follow-up with the surgeons office tomorrow so they can reprint the appropriate follow-up paperwork and plans for your hernia surgery.[facility] Work Phone: Hospital Discharge instructions Additional Instructions Use albuterol inhaler 1 to 2 puffs inhaled every 4-6 hours as needed for shortness of breath. Follow-up with a primary care provider regarding your chronic cough. Return to the emergency department with increased difficulty breathing, new or worsening symptoms. [facility] Work Phone: Hospital Discharge instructionsAdditional Instructions Follow-up with your doctor in outpatient. Return with worsening symptoms or any concerns.[facility] Work Phone: Hospital Discharge instructionsAdditional Instructions Follow-up with 180 outpatient Date of Discharge: 04/18/25[facility] Work Phone: Hospital Discharge instructionsAdditional Instructions Follow-up with your primary care physician as needed. The name of your doctor/provider is located on your insurance card.[facility] Work Phone: Reason for referral (narrative)* Outpatient Procedure (Routine) - Authorized Specialty Diagnoses / Procedures Referred By Contac t Referred To Contact [facility] Diagnoses Screening for colon cancer Procedures COLONOSCOPY SCREENING COLONOSCOPY FLX DX W/COLLJ SPEC WHEN Linda Manrique MD [address] [facility] [place] [address] [facility] [place] [address] [place] [address] Referral ID Status Reason Start Date Expiration Date Visits Requested Visits Authorized [id number] Authorized Auto-Generat ed Referral 3 08/28/2024 1 1 [facility] for referral (narrative)No reason for referral information availableW[facility] Work Phone: Summary Purpose Family History No [...] February 12, 2022 7 :15pm Power of Designer And Patternmaker No February 12, 2022 7:15pm Advance Directive Response Recorded Date/ Time Advance Directives No April 02 4 8:34pm Living Will No March 19, 2022 8:44pm Power of Designer And Patternmaker No March 19 2 8:44pm Advance Directive Response Recorded Date/ Time Advance Directives No April 02 4 8:34pm Living Will No March 19, 2022 10:50pm Power of Designer And Patternmaker No March 19 10:50pm Advance Directive Response Recorded Date/ Time Advance Directives No April 02 4 8:34pm Living Will No March 28, 2022 4:26pm Power of Designer And Patternmaker No March 28 2 4:26pm Advance Directive Response Recorded Date/ Time Advance Directives No April 02 4 8:34pm Living Will No May 23 11:27pm Power of Designer And Patternmaker No [place] 22nd, 2 022 11:27pm Advance Directive Response Recorded Date/ Time Advance Directives No April 02 4 8:34pm Living Will No May 24 1:55am Power of Designer And Patternmaker No May 24 022 1:55am Advance Directive Response Recorded Date/ Time Advance Directives No April 02 4 8:34pm Living Will No July 15 9:08pm Power of Designer And Patternmaker No July 15, 2022 9:08pm Advance Directive Response Recorded Date/ Time Advance Directives No April 02 4 8:34pm Living Will No July 26 6:25pm Power of Designer And Patternmaker No July 26, 2022 6:25pm Advance Directive Response Recorded Date/ Time Advance Directives No April 02 4 7:34pm Living Will No August 14 6:57am Power of Designer And Patternmaker No August 14, 2022 6:57am Advance Directive Response Recorded Date/ Time Advance Directives No April 02 4 7:34pm Living Will No September 05 11:06am Power of Designer And Patternmaker No September 05, 2022 11:06am Advance Directive Response Recorded Date/ Time Advance Directives No April 02 4 7:34pm Living Will No September 09 1:56am Power of Designer And Patternmaker No September 09, 2022 1:56am Advance Directive Response Recorded Date/ Time Advance Directives No April 02 4 7:34pm Living Will No October 09 3 1:37pm Power of Designer And Patternmaker No October 09 023 1:37pm Advance Directive Response Recorded Date/ Time Advance Directives No April 02 4 7:34pm Living Will No November 03 1:05pm Power of Designer And Patternmaker No November 03, 2022 1:05pm Advance Directive Response Recorded Date/ Time Advance Directives No April 02 4 7:34pm Living Will No December 01, 2022 11:33pm Power of Designer And Patternmaker No December 01 11:33pm Advance Directive Response Recorded Date/ Time Advance Directives No April 02 4 8:34pm Living Will No December 15, 2022 6:32pm Power of Designer And Patternmaker No December 15 6:32pm Advance Directive Response Recorded Date/ Time Advance Directives No April 02 4 8:34pm Living Will No December 23, 2022 11:29pm Power of Designer And Patternmaker No December 23 11:29pm Advance Directive Response Recorded Date/ Time Advance Directives No April 02 4 8:34pm Living Will No March 26, 2023 12:10am Power of Designer And Patternmaker No March 26 3 12:10am Advance Directive Response Recorded Date/ Time Advance Directives No April 02 4 8:34pm Living Will No April 26, 2023 7:47pm Power of Designer And Patternmaker No April 26 3 7:47pm Advance Directive Response Recorded Date/ Time Advance Directives No April 02 4 8:34pm Living Will No April 26, 2023 8:56pm Power of Designer And Patternmaker No April 26 8:56pm Advance Directive Response Recorded Date/ Time Advance Directives No April 02 4 8:34pm Living Will No May 29 12:58am Power of Designer And Patternmaker No May 29 023 12:58am Advance Directive Response Recorded Date/ Time Advance Directives No April 02 4 7:34pm Living Will No September 01 12:29am Power of Designer And Patternmaker No September 01, 2023 12:29am Advance Directive Response Recorded Date/ Time Advance Directives No April 02 4 7:34pm Living Will No October 15 11:33am Power of Designer And Patternmaker No October 15, 2023 11:33am Advance Directive Response Recorded Date/ Time Advance Directives No April 02 4 7:34pm Living Will No October 29 4:23am Power of Designer And Patternmaker No October 29, 2023 4:23am Advance Directive Response Recorded Date/ Time Advance Directives No April 02 4 7:34pm Living Will No October 29 5:54am Power of Designer And Patternmaker No October 29, 2023 5:54am Advance Directive Response Recorded Date/ Time Living Will No September 07 12:41pm Power of Designer And Patternmaker No September 07, 2024 12:41pm Living Will No November 11, 2 025 6:41pm Power of Designer And Patternmaker No November 11, 2024 6:41pm Living Will No December 04, 2024 8:21pm Power of Designer And Patternmaker No December 04 8:21pm Living Will No December 13, 2024 12:35pm Power of Designer And Patternmaker No December 13 12:35pm Living Will No September 19 024 7:59pm Power of Designer And Patternmaker No September 19, 2024 7:59pm Living Will No October 21 9:51pm Power of Designer And Patternmaker No October 21, 2024 9:51pm Living Will No November 27, 2 025 3:01pm Power of Designer And Patternmaker No 2024 3:01pm Advance Directives No April 02 8:34pm Advance Directive Response Recorded Date/ Time Living Will No November 11 6:41pm Do you have a Healthcare Power of Designer And Patternmaker? No November 11, 2024 6:41pm Living Will No December 04, 2024 8:21pm Do you have a Healthcare Power of Designer And Patternmaker? No December 04, 2024 8:21pm Living Will No December 13, 2024 12:35pm Do you have a Healthcare Power of Designer And Patternmaker? No December 13, 2024 12:35pm Living Will No January 19, 2025 2:10pm Do you have a Healthcare Power of Designer And Patternmaker? No January 19, 2025 2:10pm Living Will No October 21 9:51pm Do you have a Healthcare Power of Designer And Patternmaker? No October 21, 2024 9:51pm Living Will No November 27, 025 3:01pm Do you have a Healthcare Power of Designer And Patternmaker? No 2024 3:01pm Advance Directives No April 02 8:34pm Advance Directive Response Recorded Date/ Time Living Will No December 04, 2024 8:21pm Do you have a Healthcare Power of Designer And Patternmaker? No December 04, 2024 8:21pm Living Will No December 13, 2024 12:35pm Do you have a Healthcare Power of Designer And Patternmaker? No December 13, 2024 12:35pm Living Will No January 19, 2025 2:10pm Do you have a Healthcare Power of Designer And Patternmaker? No January 19, 2025 2:10pm Do you have a Healthcare Power of Designer And Patternmaker? No March 29, 2025 5:57pm Advance Directives No [place] 2nd, 201 4 8:34pm Advance Directive Response Recorded Date/ Time Living Will No December 04, 2024 8:21pm Do you have a Healthcare Power of Designer And Patternmaker? No December 04, 2024 8:21pm Living Will No December 13, 2024 12:35pm Do you have a Healthcare Power of Designer And Patternmaker? No December 13, 2024 12:35pm Living Will No January 19, 2025 2:10pm Do you have a Healthcare Power of Designer And Patternmaker? No January 19, 2025 2:10pm Do you have a Healthcare Power of Designer And Patternmaker? No March 29, 2025 5:57pm Do you have a Healthcare Power of Designer And Patternmaker? No March 30, 2025 10:51am Advance Directives No April 02 8:34pm Advance Directive Response Recorded Date/ Time Living Will No January 19, 2025 2:10pm Do you have a Healthcare Power of Designer And Patternmaker? No January 19, 2025 2:10pm Do you have a Healthcare Power of Designer And Patternmaker? No March 29, 2025 5:57pm Do you have a Healthcare Power of Designer And Patternmaker? No March 30, 2025 10:51am Do you have a Healthcare Power of Designer And Patternmaker? No April 16, 2025 9:44pm Advance Directives No April 02 8:34pm Advance Directive Response Recorded Date/ Time Living Will No January 19, 2025 2:10pm Do you have a Healthcare Power of Designer And Patternmaker? No January 19, 2025 2:10pm Do you have a Healthcare Power of Designer And Patternmaker? No March 29, 2025 5:57pm Do you have a Healthcare Power of Designer And Patternmaker? No March 30, 2025 10:51am Do you have a Healthcare Power of Designer And Patternmaker? No April 16, 2025 11:23pm Advance Directives No April 02 4 8:34pm Advance Directive Response Recorded Date/ Time Living Will No January 19, 2025 2:10pm Do you have a Healthcare Power of Designer And Patternmaker? No January 19, 2025 2:10pm Do you have a Healthcare Power of Designer And Patternmaker? No March 29, 2025 5:57pm Do you have a Healthcare Power of Designer And Patternmaker? No May 09, 2025 11:23am Do you have a Healthcare Power of Designer And Patternmaker? No March 30, 2025 10:51am Do you have a Healthcare Power of Designer And Patternmaker? No April 16, 2025 11:23pm Advance Directives No April 02 8:34pm Hospital Course Note EMERGENCY DEPARTMENT DISCHAR GE SUMMARY PATIENT NAME:MICHAEL MCNEILL MRN: )[id number] AGE: 43 Years SEX: Male PHONE:[phone] DOS: 08/04/2019 00:26:00 : 1975 ATTENDING PHYSICIAN:Amy Jaimes MD PCP: Physician, Gayathri PCP CHIEF COMPLAINT: wheezing/congestion Allergies No Known Medication Allergies Problems Active Depression Anxiety Asthma DISCHARGE DIAGNOSIS: DISCHARGE INSTRUCTIONS: [facility] List (Custom); Asthma, Acute Bronchospasm [...] Tobacco abuse April 16, 2025 11:0 0pm Chief Complaint Admit Date SOB January 19, 2025 1:4 2pm weakness March 29, 2025 5:45 pm sob March 30, 2025 10:4 4am ETOH DETOX April 16, 2025 11:0 0pm ETOH DETOX April 17, 2025 7:14 am ETOH DETOX April 18, 2025 12:4 6pm inhaler refill April 27, 2025 9:52 am Reason for Visit Admit Date ETOH abuse April 16, 2025 11:0 0pm Marijuana use April 16, 2025 11:0 0pm Methamphetamine use April 16, 2025 11:0 0pm Alcohol withdrawal April 16, 2025 11:0 0pm Tobacco abuse April 16, 2025 11:0 0pm Chief Complaint Admit Date SOB January 19, 2025 1:4 2pm weakness March 29, 2025 5:45 pm sob March 30, 2025 10:4 4am ETOH DETOX April 16, 2025 11:0 0pm ETOH DETOX April 17, 2025 7:14 am ETOH DETOX April 18, 2025 12:4 6pm inhaler refill April 27, 2025 9:52 am LAN May 09, 2025 10: 59am Additional Source Comments (unrecognized sect ion and content) No Status Records FoundNo Status Records FoundNo Status Records FoundNo Status Records FoundNo Status Records Found INFORMATION SOURCE (unrecogn ized section and content) DATE CREATED AUTHOR 06/15/2018 [facility] DATE CREATED AUTHOR AUTHOR'S ORGANIZ ATION 08/04/2019 [facility] DATE CREATED AUTHOR AUTHOR'S ORGANIZ ATION 08/08/2024 [facility] DATE CREATED AUTHOR AUTHOR'S ORGANIZ ATION 02/06/2025 [facility] DATE CREATED AUTHOR AUTHOR'S ORGANIZ ATION 05/15/2025 [facility] Goals (unrecognized section and content) Goals [...] Start: October 22, 2024 Dr. Julius Matthews , Emergency Provider Active Start: October 22, 2024 [...] 2024 End: 2024 Dr. Lacho Joy DO Attending Provider Activ e Start: 2024 [...] Care Provider Active Dr. Michael De Anda , DO Emergency Provider Active Dr. Alisha Mcintyre [...] Provider, Other Provider Active Dr. Nelson Mckeon , DO Attending Provider Active Team Status: Inactive [...] Care Provider Active Dr. Andrew Henning , DO Emergency Provider Active Team Status: Inactive Member Role Status Dates No Primary Care Physician Primary Care Provider Active Dr. Hattie Kapadia , DO Emergency Provider Active Team Status: Active Member Role Status Dates No Primary Care Physician Primary Care Provider Active Dr. Tae Walsh MD Emergency Provider Active Dr. Alisha Mcintyre MD Attending Provider Active Team Status: Inactive Member Role Status Dates No Primary Care Physician Primary Care Provider Active Dr. Hattie Kapadia DO Attending Provider, Emergency P renetta Active Team Status: Active Member Role Status [...] Active S tart: April 17, 2025 Dr. Jaquan de Hal , DO Admit Provider Active Start: April 17, 2025 Dr. Jaquan Villarreal , DO Other Provider Active Start: April 17, [...] tart: April 18, 2025 Dr. Jaquan Villarreal , Admit Provider Active Start: April 18, 2025 Dr. Jaquan Villarreal , DO Other Provider Active Start: April 18, 2025 Dr. Tom Owen MD Attending Provider Active Start: April 18, 2025 Dr. Tom Owen MD Other Provider Active Sta rt: April 18, 2025 Team Status: Inactive Member Role/Relationship Status Dates No Primary Care Physician Primary Care Provider Active Start: April 27, 2025 End: April 27, 2025 Dr. Tae Walsh MD Emergency Provider Active Sta rt: April 27, 2025 End: April 27, 2025 Team Status: Inactive Member Role/Relationship Status Dates No Primary Care Physician Primary Care Provider Active Start: April 27, 2025 End: April 27, 2025 Dr. Tae Walsh MD Attending Provider Active Sta rt: April 27, 2025 End: April 27, 2025 Dr. Tae Walsh MD Emergency Provider Active Sta rt: April 27, 2025 End: April 27, 2025 Team Status: Inactive Member Role/Relationship Status Dates No Primary Care Physician Primary Care Provider Active Start: May 09, 2025 End: May 09, 2025 Dr. Darinel Henriquez MD Emergency Provider Active Start: May 09, 2025 End: May 09, 2025 Source Comments (unrecognize d section and content) In the event this informatio n is protected by the Federal Confidentiality of Alcohol and Drug Abuse Patient Records regulations: The Federal rules restrict any use of the information to criminally investigate or prosecute any alcohol or drug abuse patient.[facility] the event this information is protected by the Federal Confidentiality of Alcohol and Drug Abuse Patient Records regulations: The Federal rules restrict any use of the information to criminally investigate or prosecute any alcohol or drug abuse patient.[facility] Reason for Visit (unrecogniz ed section and content) Reason Comments Consult Right side groin hilaria n Reason Comments 09/05/2023 [facility] + 10/03/2023 [facility] ME GONZALEZ FOR RECORDS PERTAINING TO PATIENTS [...] BE BASED ON THE PRIMARY CLINICAL RECORDS. [facility] [email or web address] [phone] no warranty or guarantee [id number] the accuracy [phone] completeness of information in this [id number]
== END 2025-08-15 20:49 | disposition home or self-care (01) ==
LOC: ED 20:43
PROVIDERS: Emergency Provider Student in an Organized Health Care Education/Training Program; Visit Provider Student in an Organized Health Care Education/Training Program
DX: K40.90 Unilateral inguinal hernia, without obstruction or gangrene, not specified as recurrent (principal); F15.10 Other stimulant abuse, uncomplicated; F12.10 Cannabis abuse, uncomplicated; R19.4 Change in bowel habit; Z59.00 Homelessness unspecified; Z87.891 Personal history of nicotine dependence
CPT/HCPCS: 99282; A4216